=== PATIENT | male | born 1990 | race Hispanic/Latino ===

== ENCOUNTER 2020-05-16 12:53 | Emergency (ER) | payer BC, SELFPAY ==
--- OUTSIDE RECORDS SUMMARY | 2020-05-16 12:56 | XMS REPORT | Continuity of Care Document ---
:1990 Author Organization [facility] t Address [address] [place] [address] Care Team Providers Name Role Phone DR GERRI DYE Attending Clinician Unavailable DR HERMAN JIMÉNEZ Attending Clinician Unavailable DR TESHA JIMÉNEZ Attending Clinician Unavailable Carlie SMITH Attending Clinician Unavailable DR Reg DYEitting Clinician Unavailable DR JESSY Admitting Clinician Unavailable DR Kendell JIMÉNEZ Admitting Clinician Unavailable Carlie SMITH Admitting Clinician Unavailable Problems This patient has no known problems. Allergies, Adverse Reactions, Alerts This patient has no known allergies or adverse reactions. Medications This patient has no known medications. Procedures This patient has no known procedures. Encounters Start End Encounter Admission Attending Care Care Encounter Source Date/Time Date/Time Type Type Clinicians Facility Department ID 2020-01-25 2020-01-25 Emergency E [facility] [id number] [facility] 00:08:00 00:08:00 2019-07-18 2019-07-18 Emergency E [facility] [id number] [facility] 14:06:00 14:06:00 2019-07-08 2019-07-08 Emergency E [facility] [id number] [facility] 17:22:00 17:22:00 2019-07-08 2019-07-08 Outpatient [facility] [id number] [facility] 17:00:00 17:00:00 2017-07-03 2017-07-03 [facility] [id number] [address] [place] [id number] 00:00:00 00:00:00 [facility] 2017-06-28 2017-06-29 Outpatient [facility] [id number] [address] [place] [address] 00:00:00 00:00:00 [facility] 2017-06-23 2017-06-23 Emergency E GERRI DYE [facility] [id number] [address] 11:52:00 13:51:00 [facility] 2017-06-21 2017-06-22 Emergency E JESSY [facility] [id number] [address] 23:24:00 02:15:00 [facility] 2016-11-09 2016-11-09 Emergency E TESHA JIMÉNEZ [facility] [id number] 12:10:00 13:05:00 [facility] Results Test Description Test Time Test Comments Results Result Comments Source BASIC METABOLIC PANEL 2017-06-23 13:15:00 Test Item Value Reference Range Interpretation Comme nts GLUCOSE (test code = 06D) 100 mg/dL 75-100 SODIUM (test code = 01A) 138 mmol/L 136-145 POTASSIUM (test code = 01B) 3.7 mmol/L 3.6-5.1 CHLORIDE (test code = 04A) 106 mmol/L 98-107 CO2 (test code = 02A) 27 mmol/L 22-32 ANION GAP (test code = ANG) 8.7 mmol/L BUN (test code = 05D) 10 mg/dL 7-18 CREATININE (test code = 03E) 1.0 mg/dL 0.7-1.3 BUN/CREA (test code = BCR) 10 12-20 L CALCIUM (test code = 09D) 8.8 mg/dL 8.3-9.5 CBC (INCLUDES AUTOMATED DIFFERENTIAL)*[id number] 13:04:00 Test Item Value Reference Range Interpretation Comments WBC (test code = WBC) 16.6 10\S\3/uL 4.5-11.0 H RBC (test code = RBC) 4.55 10\S\6/uL 4.30-5.70 HGB (test code = HBG) 14.5 g/dL 14.0-18.0 HCT (test code = HCT) 41.7 % 35.0-46.0 MCV (test code = MCV) 91.6 fL 80.0-94.0 MCH (test code = MCH) 31.9 pg 27.0-31.0 H MCHC (test code = MCHC) 34.8 g/dL 32.0-36.0 RDW (test code = RDW) 13.3 % 11.5-14.5 PLT (test code = PLT) 194 10\S\3/uL 130-400 MPV (test code = MPV) 11.7 fL 9.4-12.4 NEUTROP # (test code = NE#) 13.5 10\S\3/uL 2.0-8.0 H LYMPH # (test code = LY#) 1.6 10\S\3/uL 1.2-4.0 MONOCYTE # (test code = MO#) 0.9 10\S\3/uL 0.0-1.1 EOSINOPH # (test code = EO#) 0.5 10\S\3/uL 0.0-0.7 BASOPHIL # (test code = BA#) 0.1 10\S\3/uL 0.0-0.3 IG # (test code = IG#) 0.07 10\S\3/uL 0.00-0.06 H NRBC # (test code = NRBC#) 0.00 10\S\3/uL 0.00-0.01 NEUTROPH % (test code = NE%) 81.3 % 35.0-73.0 H LYMPH % (test code = LY%) 9.5 % 20.0-55.0 L MONO % (test code = MO%) 5.5 % 2.5-10.0 EOSINOPH % (test code = EO%) 2.9 % 0.0-5.0 BASOPHIL % (test code = BA%) 0.4 % 0.0-2.0 IG % (test code = IG%) 0.4 % 0.0-0.8 NRBC% (test code = NRBC%) 0.0 % 0.0-0.2 MANDIFF (test code = WMDIFF) NO NO RBC MORPH (test code = NORMAL WRBCMOR) XR CHEST 2 VIEW *WW*2017-06-23 12:51:56Exam: Chest 2 viewsLocation: [id number]: cough, recent pneumonia.Comparison: 10/23/2016.Findings:The lungs are clear. Central peribronchial cuffing is present. No infiltrate oreffusion is seen. The pulmonary vasculature is normal. The heart size isnormal. The mediastinal silhouette is unremarkable. Thebony thorax is intact.Impression:Bronchitis .CT STONE PROTOCOL [id number] 01:06:08AFTER HOURS SERVICE ON: 06/22/2017 1:03 AMCT Scan of the Abdomen and Pelvis Without ContrastLocation Code [id number]: L flank painTechnique: Axial and reconstructed coronal scans were performed on a helicalscanner pre oral and IV contrast. Study is limited secondary to lack of oraland IV contrast. One or more of the following dose reduction techniques were used: Automatedexposure control, adjustmentof the mA and/or kV according to patient size,and/or utilization of iterative reconstruction technique.Findings: Liver: No significant findings. Gallbladder/Biliary: No significant findings. Pancreas: No significant findings. Spleen: No significant findings.Adrenals: No significant findings. Kidneys:No nephrolithiasis or hydronephrosis. Bladder: No significant findings. Bowel: No significant findings. The appendix is not visualized.Other: Patchy bilateral alveolar densities are seen in the lower lo bes, rightgreater than left: Likely pneumonia. There are rounded sclerotic lesions in theright proximal femur without significant change from 07/18/13. There is nopathologic fracture.Impression:1. Bilateral lower lobe pneumonia.2. No nephrolithiasis or obstructive uropathy.3. Nonvisualization of the appendix. The bowel is otherwise unremarkable. Noinflammatory changes seen.U/S TESTICULAR 2017-06-22 00:58:11U/S TESTICULARLocation: [id number] hours services provided 06/22/2017 12:56 AMIndication: L testicle painComparison: None available.Technique:High-frequency linear transducer sonography including grimes scale,color and Doppler imaging was performed through the scrotum.Findings: The testicles are normal in size, echogenicity and blood flow. Theright testicle measures 4 x 2.3 x 2.9 cm. Left testicle measures3.9 x 2.1 x2.8 cm. The epididymis remains are normal in size, echogenicity and blood flow.The right e pididymis measures up to 17 mm. The left epididymis measures 8 mm.Bilateral hydroceles are present, more evident on the right. No evidence ofvaricocele.Impression:Bilateral hydroceles with no acute testicular or epididymalabnormality.AMYLASE AND [id number] 00:33:00 Test Item Value Reference Range Interpretation Comments AMYLASE (test code = 10A) 65 U/L 28-100 LIPASE (test code = 60A) 140 IU/L 73-393 COMPREHENSIVE METABOLIC [id number] 00:33:00 Test Item Value Reference Range Interpretation Comments GLUCOSE (test code = 06D) 88 mg/dL 75-100 SODIUM (test code = 01A) 137 mmol/L 136-145 POTASSIUM (test code = 01B) 3.7 mmol/L 3.6-5.1 CHLORIDE (test code = 04A) 102 mmol/L 98-107 CO2 (test code = 02A) 29 mmol/L 22-32 ANION GAP (test code = ANG) 9.7 mmol/L BUN (test code = 05D) 11 mg/dL 7-18 CREATININE (test code = 03E) 1.0 mg/dL 0.7-1.3 BUN/CREA (test code = BCR) 12 12-20 CALCIUM (test code = 09D) 9.2 mg/dL 8.3-9.5 BILI TOTAL (test code = 11A) 0.5 mg/dL 0.2-1.0 PROTEIN (test code = 07D) 8.0 g/dL 6.4-8.2 ALBUMIN (test code = 08D) 4.6 g/dL 3.5-4.8 GLOBULIN (test code = GLB) 3.4 g/dL 1.5-3.8 ALB/GLOB (test code = AGRR) 1.4 1.0-2.6 ALK PHOS (test code = 35A) 66 IU/L 42-121 AST (test code = 30A) 14 IU/L <=42 ALT (test code = 31A) 29 IU/L <=78 [id number] 00:31:00 Test Item Value Reference Range Interpretation Comments COLOR (test code = COLU) YELLOW YELLOW CLARITY (test code = CLA) CLEAR CLEAR GLUCOSE UR (test code = UA GLUCOSE) NEGATIVE NEGATIVE BILI UR (test code = BILE) NEGATIVE NEGATIVE KETONES UR (test code = ADALBERTO) NEGATIVE NEGATIVE SP GRAVITY (test code = SPGR) 1.005 1.005-1.030 PH UR (test code = PH) 6.5 4.5-8.0 PROTEIN UR (test code = PU) NEGATIVE NEGATIVE UROBIL UR (test code = UROQ) 0.2 EU/dL 0.2-1.0 NITRITE UR (test code = NITRITE) NEGATIVE NEGATIVE BLOOD UR (test code = UA BLOOD) NEGATIVE NEGATIVE LEUK ES UR (test code = LEUK) NEGATIVE NEGATIVE CBC (INCLUDES AUTOMATED DIFFERENTIAL)2017-06-22 00:24:00 Test Item Value Reference Range Interpretation Comments WBC (test code = WBC) 10.2 10\S\3/uL 4.5-11.0 RBC (test code = RBC) 4.97 10\S\6/uL 4.30-5.70 HGB (test code = HBG) 15.5 g/dL 14.0-18.0 HCT (test code = HCT) 45.0 % 35.0-46.0 MCV (test code = MCV) 90.5 fL 80.0-94.0 MCH (test code = MCH) 31.2 pg 27.0-31.0 H MCHC (test code = MCHC) 34.4 g/dL 32.0-36.0 RDW (test code = RDW) 13.4 % 11.5-14.5 PLT (test code = PLT) 210 10\S\3/uL 130-400 MPV (test code = MPV) 11.3 fL 9.4-12.4 NEUTROP # (test code = NE#) 6.1 10\S\3/uL 2.0-8.0 LYMPH # (test code = LY#) 2.5 10\S\3/uL 1.2-4.0 MONOCYTE # (test code = MO#) 1.1 10\S\3/uL 0.0-1.1 EOSINOPH # (test code = EO#) 0.5 10\S\3/uL 0.0-0.7 BASOPHIL # (test code = BA#) 0.1 10\S\3/uL 0.0-0.3 IG # (test code = IG#) 0.04 10\S\3/uL 0.00-0.06 NRBC # (test code = NRBC#) 0.00 10\S\3/uL 0.00-0.01 NEUTROPH % (test code = NE%) 59.7 % 35.0-73.0 LYMPH % (test code = LY%) 24.5 % 20.0-55.0 MONO % (test code = MO%) 10.4 % 2.5-10.0 H EOSINOPH % (test code = EO%) 4.4 % 0.0-5.0 BASOPHIL % (test code = BA%) 0.6 % 0.0-2.0 IG % (test code = IG%) 0.4 % 0.0-0.8 NRBC% (test code = NRBC%) 0.0 % 0.0-0.2 MANDIFF (test code = MDIFF) NO NO RBC MORPH (test code = RBCMOR) NORMAL COMPREHENSIVE METABOLIC MULLEN 2016-10-23 14:38:00 Test Item Value Reference Range Interpretation Comments GLUCOSE (test code = 06D) 93 mg/dL 75-100 SODIUM (test code = 01A) 140 mmol/L 136-145 POTASSIUM (test code = 01B) 4.1 mmol/L 3.6-5.1 CHLORIDE (test code = 04A) 105 mmol/L 98-107 CO2 (test code = 02A) 30 mmol/L 22-32 ANION GAP (test code = ANG) 9.1 mmol/L BUN (test code = 05D) 11 mg/dL 7-18 CREATININE (test code = 03E) 1.0 mg/dL 0.7-1.3 BUN/CREA R (test code = BCR) 11 12-20 L CALCIUM (test code = 09D) 9.2 mg/dL 8.3-9.5 BILI TOTAL (test code = 11A) 0.4 mg/dL 0.2-1.0 PROTEIN (test code = 07D) 7.3 g/dL 6.4-8.2 ALBUMIN (test code = 08D) 4.0 g/dL 3.5-4.8 GLOBULIN (test code = GLB) 3.3 g/dL 1.5-3.8 ALB/GLOB (test code = AGRR) 1.2 1.0-2.6 ALK PHOS (test code = 35A) 71 IU/L 42-121 AST (test code = 30A) 17 IU/L <=42 ALT (test code = 31A) 23 IU/L <=78 AMYLASE AND LIPASE 2016-10-23 14:38:00 Test Item Value Reference Range Interpretation Comments AMYLASE (test code = 10A) 46 U/L 28-100 LIPASE (test code = 60A) 100 IU/L 73-393 CBC (INCLUDES AUTOMATED DIFFERENTIAL)*[id number] 14:19:00 Test Item Value Reference Range Interpretation Comments WBC (test code = WBC) 5.7 10\S\3/uL 4.5-11.0 RBC (test code = RBC) 4.53 10\S\6/uL 4.30-5.70 HGB (test code = HBG) 14.7 g/dL 14.0-18.0 HCT (test code = HCT) 42.5 % 35.0-46.0 MCV (test code = MCV) 93.8 fL 80.0-94.0 MCH (test code = MCH) 32.5 pg 27.0-31.0 H MCHC (test code = MCHC) 34.6 g/dL 32.0-36.0 RDW (test code = RDW) 13.1 % 11.5-14.5 PLT (test code = PLT) 186 10\S\3/uL 130-400 MPV (test code = MPV) 11.4 fL 9.4-12.4 NEUTROP # (test code = NE#) 3.7 10\S\3/uL 2.0-8.0 LYMPH # (test code = LY#) 1.3 10\S\3/uL 1.2-4.0 MONOCYTE # (test code = MO#) 0.5 10\S\3/uL 0.0-1.1 EOSINOPH # (test code = EO#) 0.2 10\S\3/uL 0.0-0.7 BASOPHIL # (test code = BA#) 0.1 10\S\3/uL 0.0-0.3 IG # (test code = IG#) 0.02 10\S\3/uL 0.00-0.06 NRBC # (test code = NRBC#) 0.00 10\S\3/uL 0.00-0.01 NEUTROPH % (test code = NE%) 64.8 % 35.0-73.0 LYMPH % (test code = LY%) 22.4 % 20.0-55.0 MONO % (test code = MO%) 8.6 % 2.5-10.0 EOSINOPH % (test code = EO%) 3.0 % 0.0-5.0 BASOPHIL % (test code = BA%) 0.9 % 0.0-2.0 IG % (test code = IG%) 0.3 % 0.0-0.8 NRBC% (test code = NRBC%) 0.0 % 0.0-0.2 MANDIFF (test code = WMDIFF) NO NO RBC MORPH (test code = NORMAL WRBCMOR) XR CHEST 1 VIEW PORTABLE 2016-10-23 13:51:45Portable AP chest, 1 viewLocation Code: [id number] HISTORY: Abdominal painCOMPARISON: 07/14/2013COMMEN T: The lungs are clear and well inflated. The costophrenic angles are sharp. Thecardiomediastinal silhouette is unremarkable. The bones are intact.IMPRESSION: Stable chest with no acute abnormality.CT ABDOMEN AND PELVIS WITHOUT CONTRAST 2016-10-23 13:50:29CT abdomen and pelvis without contrastLocation Code: [id number] HISTORY: Abdominal painCOMPARISON: 03/2017Technique: Helical CT of the abdomen and pelvis was performed withoutcontrast. Thin section axial, sagittal and coronal images were obtained.Automatic exposure control was utilized. Total DLP: 421.47 mGycmFINDINGS:The lung bases are clear. The liver, gallbladder, adrenal glands, kidneys, pancreas, and spleen areunremarkable.The unopacified loops of bowel demonstrate no focal thickening or dilatation.The appendix is absent. There is no free peritoneal air or fluid. The abdominal aorta is normal in caliber and contour. There is noretroperitoneal mass or fluid collection. The urinary bladderis unremarkable.There is no pelvic mass or fluid collection. The bones, skin, and surrounding soft tissues are unremarkable.IMPRESSION: Stable exam with no acute abnormality.CT ABDOMEN AND PELVIS WITH [id number] 21:28:44CT abdomen and pelvis with contrastLocation Code: [id number] HISTORY: Abdominal painCOMPARISON: 07/18/13, 07/13/13Technique: Helical CT of the abdomen and pelvis was performed following theadministration of intravenous contrast. Thin section axial, sagittal andcoronal images were obtained. Automatic exposure control was utilized. TotalDLP: 1033 mGycmFINDINGS:4 mm noncalcified left lower lobe pulmonary nodule is stable.The liver, gallbladder, adrenal glands, kidneys, pancreas, and spleen areunremarkable.The unopacified loops of bowel demonstrate no focal thickening or dilatation.The appendix is surgically absent. Diverticuli are seen scattered throughoutthe sigmoid colon with no wall thickening or adjacent inflammation. There isno free peritoneal air or fluid. The abdominal aorta is normal in caliber and contour. There is noretroperitoneal mass or fluid collection. The urinary bladder is unremarkable.There is no pelvic mass or fluid collection. The bones, skin, and surrounding soft tissues are unremarkable.IMPRESSION: No acute intra-abdominal or pelvic abnormality.DRUGS OF [id number] 21:03:00 Test Item Value Reference Range Interpretation Comments DRUG SCRN (test code URINE DRUG SCREEN = HDOA) This is an unconfirmed screening result and should not be used for non-medical purposes CANNABINOD (test POSITIVE NEGATIVE A code = 88C) AMPHETHETM (test Negative NEGATIVE code = 84A) BENZODIAZP (test Negative NEGATIVE code = 86A) BARBITURAT (test Negative NEGATIVE code = 85A) OPIATES (test code = POSITIVE NEGATIVE A 92B) COCAINE (test code = Negative NEGATIVE 87A) PHENCYCLID (test Negative NEGATIVE code = 66A) METHADONE (test code Negative NEGATIVE = 64A) DOAH (test code = DOAH) URINE DRUG SCREEN Cut-off values are as follows: Cannabinoids 50 ng/mL Cocaine 300 ng/mL Amphetamines 1000 ng/mL Phencyclidine 25 ng/mL Benzodiazepines 200 ng.mL Methadone 300 ng/mL Barbiturates 200 ng/mL Opiates 2000 ng/mL URINALYSIS WITH [id number] 20:50:00 Test Item Value Reference Range Interpretation Comments COLOR (test code = COLU) DK YELLOW YELLOW A CLARITY (test code = CLA) CLOUDY CLEAR A GLUCOSE UR (test code = UA NEGATIVE NEGATIVE GLUCOSE) BILI UR (test code = BILE) NEGATIVE NEGATIVE KETONES UR (test code = ADALBERTO) NEGATIVE NEGATIVE SP GRAVITY (test code = SPGR) 1.026 1.005-1.030 PH UR (test code = PH) 6.0 4.5-8.0 PROTEIN UR (test code = PU) 1+ NEGATIVE A UROBIL UR (test code = UROQ) 0.2 EU/dL 0.2-1.0 NITRITE UR (test code = NITRITE) NEGATIVE NEGATIVE BLOOD UR (test code = UA BLOOD) NEGATIVE NEGATIVE LEUK ES UR (test code = LEUK) NEGATIVE NEGATIVE WBC UR (test code = UWBC) 2 /HPF 0-3 RBC UR (test code = URBC) 2 /HPF 0-2 EPITH UR (test code = UEPC) FEW /LPF NONE A BACTERIA UR (test code = UBACT) FEW /HPF NONE A CAST UR (test code = CAST) /LPF NONE CRYSTAL UR (test code = CRYU) / LPF NONE MUCUS UR (test code = MUC) MANY / HPF NONE A AMORPH UR (test code = JORGE) / HPF NONE TRICH UR (test code = UTRICH) /HPF NONE YEAST UR (test code = UY) /HPF NONE SPERM UR (test code = USPERM) /HPF NONE AMYLASE AND [id number] 20:44:00 Test Item Value Reference Range Interpretation Comments AMYLASE (test code = 10A) 46 U/L 28-100 LIPASE (test code = 60A) 128 IU/L 73-393 COMPREHENSIVE METABOLIC [id number] 20:44:00 Test Item Value Reference Range Interpretation Comments GLUCOSE (test code = 06D) 141 mg/dL 75-100 H SODIUM (test code = 01A) 142 mmol/L 136-145 POTASSIUM (test code = 01B) 3.3 mmol/L 3.6-5.1 L CHLORIDE (test code = 04A) 107 mmol/L 98-107 CO2 (test code = 02A) 25 mmol/L 22-32 ANION GAP (test code = ANG) 13.3 mmol/L BUN (test code = 05D) 11 mg/dL 7-18 CREATININE (test code = 03E) 1.1 mg/dL 0.7-1.3 BUN/CREA R (test code = BCR) 10 12-20 L CALCIUM (test code = 09D) 9.2 mg/dL 8.3-9.5 BILI TOTAL (test code = 11A) 0.5 mg/dL 0.2-1.0 PROTEIN (test code = 07D) 8.0 g/dL 6.4-8.2 ALBUMIN (test code = 08D) 4.6 g/dL 3.5-4.8 GLOBULIN (test code = GLB) 3.4 g/dL 1.5-3.8 ALB/GLOB (test code = AGRR) 1.4 1.0-2.6 ALK PHOS (test code = 35A) 70 IU/L 42-121 AST (test code = 30A) 17 IU/L <=42 ALT (test code = 31A) 22 IU/L <=78 CBC (INCLUDES AUTOMATED DIFFERENTIAL)2016-09-10 20:31:00 Test Item Value Reference Range Interpretation Comments WBC (test code = WBC) 16.2 10\S\3/uL 4.5-11.0 H RBC (test code = RBC) 4.75 10\S\6/uL 4.30-5.70 HGB (test code = HBG) 15.1 g/dL 14.0-18.0 HCT (test code = HCT) 43.0 % 35.0-46.0 MCV (test code = MCV) 90.5 fL 80.0-94.0 MCH (test code = MCH) 31.8 pg 27.0-31.0 H MCHC (test code = MCHC) 35.1 g/dL 32.0-36.0 RDW (test code = RDW) 13.1 % 11.5-14.5 PLT (test code = PLT) 207 10\S\3/uL 130-400 MPV (test code = MPV) 12.8 fL 9.4-12.4 H NEUTROP # (test code = NE#) 10.7 10\S\3/uL 2.0-8.0 H LYMPH # (test code = LY#) 4.0 10\S\3/uL 1.2-4.0 MONOCYTE # (test code = MO#) 1.0 10\S\3/uL 0.0-1.1 EOSINOPH # (test code = EO#) 0.4 10\S\3/uL 0.0-0.7 BASOPHIL # (test code = BA#) 0.1 10\S\3/uL 0.0-0.3 IG # (test code = IG#) 0.06 10\S\3/uL 0.00-0.06 NRBC # (test code = NRBC#) 0.00 10\S\3/uL 0.00-0.01 NEUTROPH % (test code = NE%) 66.0 % 35.0-73.0 LYMPH % (test code = LY%) 24.3 % 20.0-55.0 MONO % (test code = MO%) 6.2 % 2.5-10.0 EOSINOPH % (test code = EO%) 2.5 % 0.0-5.0 BASOPHIL % (test code = BA%) 0.6 % 0.0-2.0 IG % (test code = IG%) 0.4 % 0.0-0.8 NRBC% (test code = NRBC%) 0.0 % 0.0-0.2 MANDIFF (test code = MDIFF) NO NO RBC MORPH (test code = RBCMOR) NORMAL
[2020-05-16] MEDS ORDERED: IPRATROPIUM BROM 0.5MG/2.5ML ONE (14:44)
[2020-05-16] MEDS ORDERED: ALBUTEROL 2.5 MG/3 ML NEB SOL ONE (14:44)
[2020-05-16] MEDS ORDERED: dexAMETHasone 10 MG/ML VIAL ONE (14:44)
[2020-05-16] MEDS ORDERED: HYDROCODONE/CHLORPHEN 5 ML/OSYR ONE (14:44)
--- NOTE | 2020-05-16 14:49 | RAD REPORT ---
EXAM DESCRIPTION: RAD - Chest Single View - 05/16/2020 2:34 pm CLINICAL HISTORY: COUGH Chest pain. COMPARISON: No comparisons FINDINGS: Portable technique limits examination quality. The lungs are grossly clear. The heart is normal in size. No displaced fractures. IMPRESSION: No acute intrathoracic process suspected.
--- NOTE | 2020-05-16 15:29 | ER ---
Nurse's Notes [facility] Name: Chico Leon Age: 29 yrs Sex: Male : 1990 Arrival Date: 05/16/2020 Time: 12:55 Bed 20 Private MD: Diagnosis: Acute upper respiratory infection, unspecified Presentation: 05/16 13:40 Chief complaint: Patient states: sore throat, N/V and SOB since yesterday, reports em feeling tired, denies fever. Coronavirus screen: Client denies travel out of the [place] in the last 14 days. Ebola Screen: Patient negative for fever greater than or equal to 101.5 degrees Fahrenheit, and additional compatible Ebola Virus Disease symptoms Patient denies exposure to infectious person. Patient denies travel to an Ebola-affected area in the 21 days before illness onset. No symptoms or risks identified at this time. Initial Sepsis Screen: Does the patient meet any 2 criteria? No. Patient's initial sepsis screen is negative. Does the patient have a suspected source of infection? No. Patient's initial sepsis screen is negative. Risk Assessment: Do you want to hurt yourself or someone else? Patient reports no desire to harm self or others. Onset of symptoms was May 15, 2020. 13:40 Method Of Arrival: Ambulatory em 13:40 Acuity: RADHA 3 em Historical: - Allergies: 13:43 No Known Allergies; em - PMHx: 13:43 None; em - PSHx: 13:43 None; em - Immunization history:: Adult Immunizations up to date. - Social history:: Smoking status: Patient reports the use of cigarette tobacco products, denies chronic smoking, but will smoke occasionally. Screenin:50 Abuse screen: Denies threats or abuse. Denies injuries from another. Nutritional ca1 screening: No deficits noted. Tuberculosis screening: No symptoms or risk factors identified. Fall Risk None identified. Assessment: 13:50 General: Appears in no apparent distress. comfortable, Behavior is calm, cooperative, ca1 appropriate for age. General: Reports feeling ill for > 3 days. Pain: Complains of pain in left frontal sinus and right frontal sinus Pain currently is 7 out of 10 on a pain scale. Neuro: Level of Consciousness is awake, alert, obeys commands, Oriented to person, place, time, situation. Cardiovascular: Heart tones S1 S2 present Capillary refill < 3 seconds Patient's skin is warm and dry. Respiratory: Airway is patent Respiratory effort is even, unlabored, Respiratory pattern is regular, symmetrical, Breath sounds are clear bilaterally. Respiratory: Reports cough that is. GI: Abdomen is flat, non-distended, Bowel sounds present X 4 quads. Abd is soft and non tender X 4 quads. : No signs and/or symptoms were reported regarding the genitourinary system. EENT: Throat is clear is pink Reports nasal congestion nasal discharge. Derm: Skin is intact, is healthy with good turgor, Skin is pink, warm \T\ dry. Musculoskeletal: Circulation, motion, and sensation intact. Capillary refill < 3 seconds. 14:37 Reassessment: Patient appears in no apparent distress at this time. Patient and/or ca1 family updated on plan of care and expected duration. Pain level reassessed. Patient is alert, oriented x 3, equal unlabored respirations, skin warm/dry/pink. 15:43 Reassessment: Patient appears in no apparent distress at this time. Patient is alert, ca1 oriented x 3, equal unlabored respirations, skin warm/dry/pink. Patient states feeling better. Vital Signs: 13:40 BP 154 / 67; Pulse 85; Resp 18; Temp 99.6; Pulse Ox 98% on R/A; Weight 79.38 kg; Height em 5 ft. 3 in. (160.02 cm); Pain 9/10; 14:37 BP 121 / 63; Pulse 77; Resp 16 S; Pulse Ox 100% on R/A; ca1 15:43 BP 127 / 69; Pulse 71; Resp 16 S; Pulse Ox 100% on R/A; ca1 13:40 Body Mass Index 31.00 (79.38 kg, 160.02 cm) em ED Course: 12:55 Patient arrived in ED. as 13:42 Triage completed. em 13:43 Arm band placed on. em 13:49 Kendall Smith NP is PHCP. pm1 13:49 Valentino Arboleda MD is Attending Physician. pm1 13:50 Patient has correct armband on for positive identification. Placed in gown. Bed in low ca1 position. Call light in reach. Side rails up X 1. Pulse ox on. NIBP on. 14:09 Apolonia Hernandez RN is Primary Nurse. ca1 14:22 Strep Sent. ca1 14:22 COVID-19 Sent. ca1 14:22 Flu Sent. ca1 14:22 COVID swab sent to lab. Flu and/or RSV swab sent to lab. Strep swab sent to lab. ca1 14:35 CXR XRAY In Process Unspecified. EDMS 15:43 No provider procedures requiring assistance completed. Patient did not have IV access ca1 during this emergency room visit. Administered Medications: 14:20 Drug: Tussionex Pennkinetic ER 5 ml Route: PO; ca1 14:22 Drug: Decadron 10 mg Route: IM; Site: right gluteus; ca1 14:24 Drug: Albuterol 2.5 mg Route: Inhalation; ca1 14:24 Drug: AtroVENT Aerosol 0.5 mg Route: Inhalation; ca1 Outcome: 15:29 Discharge ordered by MD. pm1 15:43 Discharged to home ambulatory, with significant other. ca1 15:43 Condition: stable 15:43 Discharge instructions given to patient, Instructed on discharge instructions, follow up and referral plans. medication usage, Demonstrated understanding of instructions, follow-up care, medications, Prescriptions given X 4. 15:44 Patient left the ED. ca1 Addendum: 05/18/2020 17:35 Addendum: COVID-19 Result: Negative result given to RN to notify pt. Notified pt of a a5 negative COVID 19 swab results. Pt advised that even with a negative test result they should remain in isolation until symptom free for 3 days without medication. Pt also advised to return to the ED for worsening symptoms. Signatures: Dispatcher [employer] [facility] King Ko RN RN em Martinez, Amelia as Calderon, Audri, RN RN aa5 Kendall Smith, SHIRA ACTUARY MANAGER pm1 Apolonia Hernandez RN RN ca1
--- NOTE | 2020-05-16 15:29 | EDPHYS ---
Physician Documentation [facility] Name: Chico Leon Age: 29 yrs Sex: Male : 1990 Arrival Date: 05/16/2020 Time: 12:55 Bed 20 Private MD: ED Physician Valentino Arboleda HPI: 05/16 14:12 This 29 yrs old Male presents to ER via Ambulatory with complaints of Sore pm1 Throat, Breathing Difficulty. 14:12 The patient presents with sore throat. The patient describes throat pain as raw, pm1 scratchy. Onset: The symptoms/episode began/occurred yesterday. Severity of symptoms: in the emergency department the symptoms are actually worse. Modifying factors: The symptoms are alleviated by over the counter medications, Tylenol, the symptoms are aggravated by nothing, Patient's oral intake status: good unaware of sick contact. Associated signs and symptoms: Pertinent positives: cough, headache, nausea, Sore throat vomiting, Pertinent negatives earache, fever. The patient has not recently seen a physician. Historical: - Allergies: 13:43 No Known Allergies; em - PMHx: 13:43 None; em - PSHx: 13:43 None; em - Immunization history:: Adult Immunizations up to date. - Social history:: Smoking status: Patient reports the use of cigarette tobacco products, denies chronic smoking, but will smoke occasionally. ROS: 14:12 Cardiovascular: Negative for chest pain, palpitations, and edema. pm1 14:12 Back: Negative for injury and pain, MS/Extremity: Negative for injury and deformity, Skin: Negative for injury, rash, and discoloration, Neuro: Negative for headache, weakness, numbness, tingling, and seizure. 14:12 Constitutional: Positive for body aches, Negative for fever, poor PO intake. 14:12 Respiratory: Positive for cough, Clear and yellow sputum, shortness of breath. 14:12 Abdomen/GI: Positive for nausea and vomiting, Negative for abdominal pain, diarrhea, constipation. Exam: 14:12 Constitutional: This is a well developed, well nourished patient who is awake, alert, pm1 and in no acute distress. 14:12 Eyes: Pupils equal round and reactive to light, extra-ocular motions intact. Lids and lashes normal. Conjunctiva and sclera are non-icteric and not injected. Cornea within normal limits. Periorbital areas with no swelling, redness, or edema. 14:12 Neck: Trachea midline, no thyromegaly or masses palpated, and no cervical lymphadenopathy. Supple, full range of motion without nuchal rigidity, or vertebral point tenderness. No Meningismus. Chest/axilla: Normal chest wall appearance and motion. Nontender with no deformity. No lesions are appreciated. 14:12 Back: No spinal tenderness. No costovertebral tenderness. Full range of motion. Skin: Warm, dry with normal turgor. Normal color with no rashes, no lesions, and no evidence of cellulitis. MS/ Extremity: Pulses equal, no cyanosis. Neurovascular intact. Full, normal range of motion. 14:12 Head/face: Sinus tenderness, that is moderate, is located over the right frontal sinus and left frontal sinus. 14:12 ENT: External ear(s): are unremarkable, Ear canal(s): are normal, TM's: are normal, Posterior pharynx: Tonsils: bilaterally enlarged, with erythema, no exudate, no ulcerations, erythema, that is moderate. 14:12 Respiratory: the patient does not display signs of respiratory distress, Breath sounds: bronchial sounds, are heard diffusely, + upper airway congestion. 14:12 Abdomen/GI: Exam negative for acute changes, Inspection: abdomen appears normal, Palpation: abdomen is soft and non-tender, in all quadrants. 14:12 Neuro: Exam negative for acute changes, Orientation: is normal, Mentation: is normal, Motor: moves all fours, Gait: is steady, at a normal pace, without difficulty. Vital Signs: 13:40 BP 154 / 67; Pulse 85; Resp 18; Temp 99.6; Pulse Ox 98% on R/A; Weight 79.38 kg; Height em 5 ft. 3 in. (160.02 cm); Pain 9/10; 14:37 BP 121 / 63; Pulse 77; Resp 16 S; Pulse Ox 100% on R/A; ca1 15:43 BP 127 / 69; Pulse 71; Resp 16 S; Pulse Ox 100% on R/A; ca1 13:40 Body Mass Index 31.00 (79.38 kg, 160.02 cm) em MDM: 13:49 Patient medically screened. pm1 14:16 Data reviewed: vital signs. Data interpreted: Pulse oximetry: on room air is 98 %. pm1 Interpretation: normal. 15:27 Counseling: I had a detailed discussion with the patient and/or guardian regarding: the pm1 historical points, exam findings, and any diagnostic results supporting the discharge/admit diagnosis, lab results, radiology results, the need for outpatient follow up, to return to the emergency department if symptoms worsen or persist or if there are any questions or concerns that arise at home. 05/16 14:02 Order name: COVID-19 pm1 05/16 14:02 Order name: Flu; Complete Time: 14:59 pm1 05/16 14:02 Order name: CXR XRAY; Complete Time: 14:57 pm1 05/16 14:02 Order name: Strep; Complete Time: 14:57 pm1 05/16 14:54 Order name: Throat Culture EDMS 05/16 14:02 Order name: Droplet/Contact Precautions; Complete Time: 14:10 pm1 Administered Medications: 14:20 Drug: Tussionex Pennkinetic ER 5 ml Route: PO; ca1 14:22 Drug: Decadron 10 mg Route: IM; Site: right gluteus; ca1 14:24 Drug: Albuterol 2.5 mg Route: Inhalation; ca1 14:24 Drug: AtroVENT Aerosol 0.5 mg Route: Inhalation; ca1 Disposition: 17:54 Co-signature as Attending Physician, Valentino Arboleda MD Did not see or evaluate patient. ps1 Signature for administrative purposes. . Disposition: 05/16/20 15:29 Discharged to Home. Impression: Acute upper respiratory infection, unspecified. - Condition is Stable. - Discharge Instructions: Upper Respiratory Infection, Adult, COVID-19. - Prescriptions for Zofran 4 mg Oral Tablet - take 1 tablet by ORAL route every 12 hours As needed; 20 tablet. Medrol (Percy) 4 mg Oral Tablets, Dose Pack - take 1 tablet by ORAL route as directed - follow package instructions; 1 packet. Albuterol Sulfate 90 mcg/actuation - inhale 1-2 puff by INHALATION route every 4-6 hours; 1 Inhaler. Guaifenesin AC 10- 100 mg/5 mL Oral Liquid - take 10 milliliter by ORAL route every 4 hours As needed; 240 milliliter. - Medication Reconciliation Form, Thank You Letter, Antibiotic Education, Prescription Opioid Use, Work release form form. - Follow up: Emergency Department; When: As needed; Reason: Worsening of condition. Follow up: Private Physician; When: 2 - 3 days; Reason: Recheck today's complaints, Continuance of care, Re-evaluation by your physician. - Problem is new. - Symptoms have improved. Signatures: Dispatcher [employer] EDKing Garrido, RN RN em Kendall Smith, AUDITING CLERK AUDITING CLERK pm1 Valentino Arboleda MD MD ps1 Apolonia Hernandez RN RN ca1 Corrections: (The following items were deleted from the chart) 15:44 15:29 05/16/2020 15:29 Discharged to Home. Impression: Acute upper respiratory ca1 infection, unspecified. Condition is Stable. Forms are Medication Reconciliation Form, Thank You Letter, Antibiotic Education, Prescription Opioid Use. Follow up: Emergency Department; When: As needed; Reason: Worsening of condition. Follow up: Private Physician; When: 2 - 3 days; Reason: Recheck today's complaints, Continuance of care, Re-evaluation by your physician. Problem is new. Symptoms have improved. pm1
[2020-05-19 10:12] VITALS: TEMP 99.6
[2020-05-19 10:14] VITALS: O2SAT 100
[2020-05-19 10:15] VITALS: BP 127/69
== END 2020-05-16 15:44 | disposition home or self-care (01) ==
LOC: ER 12:53
DX: J06.9 Acute upper respiratory infection, unspecified (principal); Z20.828 Contact with and (suspected) exposure to other viral communicable diseases; F17.210 Nicotine dependence, cigarettes, uncomplicated
CPT/HCPCS: 71045; 87070; 87081; 87804; 96372; 99284; J1100; U0002

== ENCOUNTER 2020-06-09 21:25 | Emergency (ER) | payer SELFPAY ==
--- OUTSIDE RECORDS SUMMARY | 2020-06-09 21:27 | XMS REPORT | Continuity of Care Document ---
:1990 Author Organization [facility] t Address [address] [place] [address] Care Team Providers Name Role Phone DR RUBIA DUMONT Attending Clinician Unavailable MARNIE, Attending Clinician Unavailable JESSY, Attending Clinician Unavailable DR Kendell JIMÉNEZ Attending Clinician Unavailable Carlie SMITH Attending Clinician Unavailable DR Dennise DUMONT Admitting Clinician Unavailable MARNIE, Admitting Clinician Unavailable JESSY, Admitting Clinician Unavailable DR Kendell JIMÉNEZ Admitting [...] Date/Time Type Type Clinicians Facility Department ID 2020-05-28 2020-05-28 Emergency E TIM [facility] 1000 [id number] [facility] 05:09:00 08:44:00 [facility] 2020-01-25 2020-01-25 Emergency E [facility] 7513 [facility] 00:08:00 00:08:00 2019-07-18 2019-07-18 Emergency E [facility] 7512 [facility] 14:06:00 14:06:00 2019-07-08 2019-07-08 Emergency E [facility] 7511 [facility] 17:22:00 17:22:00 2019-07-08 2019-07-08 Outpatient [facility] 0041 [facility] 17:00:00 17:00:00 2017-07-03 2017-07-03 Out[facility] [id number] [address] [place] [address] 00:00:00 00:00:00 [facility] 2017-06-28 2017-06-29 Out[facility] [id number] [address] [place] [address] 00:00:00 00:00:00 [facility] 2017-06-23 2017-06-23 Emergency E GERRI DYE [facility] [id number] 11:52:00 13:51:00 [facility] 2017-06-21 2017-06-22 Emergency E JESSY [facility] [id number] [address] 23:24:00 02:15:00 [facility] 2016-11-09 2016-11-09 Emergency E TESHA JIMÉNEZ [facility] 1000 [id number] [address] 12:10:00 13:05:00 [facility] Results Test Description Test Time Test Comments Results Result Comments Source DIRECT STREP GROUP A 2020-05-30 13:33:00 Test Item Value Reference Range Interpretation Comme nts Culture Observations (test code = COB1) BETA HEMOLYTIC STREPTOCOCCU S GROUP C ISOLATED Direct Exam (test code = DE1) NEGATIVE FOR STREP A ANTIGEN SARS-CoV (RAPID ANTIGEN)2020-05-28 07:55:00 Test Item Value Reference Range Interpretation Comments SARS-CoV (ANTIGEN) NEGATIVE NEGATIVE (test code = COVAG) COVID AG (test This test has been code = COVAGC) marketed under the FDA Emergency Use Authorization (EUA) to meet challenges of the COVID-19 pandemic. The validation standards normally enforced by the FDA and the [employer] the [employer] (CAP) are more stringent than those required for this test. Therefore, the result should be interpreted with caution and close attention to other clinical and epidemiological data [id number] 07:38:00 Test Item Value Reference Range Interpretation Comments COLOR (test code = COLU) YELLOW YELLOW CLARITY (test code = CLA) CLEAR CLEAR GLUCOSE UR (test code = UA GLUCOSE) NEGATIVE NEGATIVE BILI UR (test code = BILE) NEGATIVE NEGATIVE KETONES UR (test code = ADALBERTO) NEGATIVE NEGATIVE SP GRAVITY (test code = SPGR) 1.020 1.005-1.030 PH UR (test code = PH) 7.5 4.5-8.0 PROTEIN UR (test code = PU) NEGATIVE NEGATIVE UROBIL UR (test code = UROQ) 0.2 EU/dL 0.2-1.0 NITRITE UR (test code = NITRITE) NEGATIVE NEGATIVE BLOOD UR (test code = UA BLOOD) NEGATIVE NEGATIVE LEUK ES UR (test code = LEUK) NEGATIVE NEGATIVE BRAIN NATRIURETIC [id number] 06:26:00 Test Item Value Reference Range Interpretation Comments proBNP (test code = PBNP) 20 pg/mL 0-125 AMYLASE AND [id number] 06:24:00 Test Item Value Reference Range Interpretation Comments AMYLASE (test code = 10A) 55 U/L 28-100 LIPASE (test code = 60A) 221 IU/L 73-393 [id number] 06:24:00 Test Item Value Reference Range Interpretation Comments CPK (test code = 32A) 100 IU/L 39-308 COMPREHENSIVE METABOLIC [id number] 06:24:00 Test Item Value Reference Range Interpretation Comments GLUCOSE (test code = 101 mg/dL 75-100 H 06D) SODIUM (test code = 142 mmol/L 136-145 01A) POTASSIUM (test code = 4.0 mmol/L 3.6-5.1 01B) CHLORIDE (test code = 110 mmol/L 98-107 H 04A) CO2 (test code = 02A) 27 mmol/L 22-32 ANION GAP (test code = 9.0 mmol/L ANG) BUN (test code = 05D) 15 mg/dL 7-18 CREATININE (test code 1.2 mg/dL 0.7-1.3 = 03E) GFR (test code = GFR) 81 mL/min/1.73m\S\2 >=90 L GFR 94 mL/min/1.73m\S\2 >=90 (test code = GFRAA) EGFR (test code = eGFR BY CKD-EPI EGFR) CALCULATION IS NOT RECOMMENDED FOR PATIENTS UNDER 18 YEARS OF AGE. BUN/CREA (test code = 13 12-20 BCR) CALCIUM (test code = 8.7 mg/dL 8.3-9.5 09D) BILI TOTAL (test code 0.2 mg/dL 0.2-1.0 = 11A) PROTEIN (test code = 6.5 g/dL 6.4-8.2 07D) ALBUMIN (test code = 3.5 g/dL 3.5-4.8 08D) GLOBULIN (test code = 3.0 g/dL 1.5-3.8 GLB) ALB/GLOB (test code = 1.2 1.0-2.6 AGRR) ALK PHOS (test code = 64 IU/L 42-121 35A) AST (test code = 30A) 36 IU/L <=42 ALT (test code = 31A) 59 IU/L <=78 LDH-LACTIC [id number] 06:23:00 Test Item Value Reference Range Interpretation Comments LDH (test code = 33A) 195 IU/L 100-190 H [id number] 06:23:00 Test Item Value Reference Range Interpretation Comments FERRITIN (test code = A19) 122.3 ng/mL 26.0-388.0 TROPONIN [id number] 06:21:00 Test Item Value Reference Range Interpretation Comments TROPONIN I (test code = A84) <0.015 ng/mL 0.000-0.045 [id number] 06:18:00 Test Item Value Reference Range Interpretation Comments MAGNESIUM (test code = 48A) 2.2 mg/dL 1.8-2.4 C-REACTIVE PROTEIN [id number] 06:17:00 Test Item Value Reference Range Interpretation Comments CRP QUANT (test code <2.9 mg/L 0.0-2.9 = CRPQ) Method Change (test Please note the code = METHOD) change in Method and the reference range DIRECT INFLUENZA A AND B [id number] 06:16:00 Test Item Value Reference Range Interpretation Comments Direct Exam (test PRESUMPTIVE NEGATIVE FOR code = DE1) THE PRESENCE OF INFLUENZA ANTIGEN PRO TIME AND [id number] 06:12:00 Test Item Value Reference Range Interpretation Comments PT (test code = 9.8 s 9.8-13.6 TT) INR (test code = 0.9 INR) INRH (test code = SUGGESTED INRH) THERAPEUTIC RANGE FOR INR: 2.5 - 3.5 For Patients with Prosthetic Valves or Patients with recurrent Thromboembolic Events 2.0 - 3.0 For Most Other Applications PTT (test code = 35.4 s 20.2-38.0 PTT) PTTH (test code = To monitor the PTTH) effectiveness of heparin, we offer the Anti-Xa (Heparin Assay). It can be used for either unfractionated or LMW Heparin. Order Code is ANTI-XA [id number] 06:12:00 Test Item Value Reference Range Interpretation Comments D-DIMER (test code = <200 ng/mL D-DU 0-234 DDI) D-DIMER COMMENT (test *Level to rule out code = DDCOM) DVT or PE: <235 ng/mL D-DU* Venous Blood [id number] 06:03:00 Test Item Value Reference Range Interpretation Comments VpH (test code = 7.383 7.300-7.400 VPHRT) VpCO2 (test code = 46.0 mmHg 40.0-50.0 QLAO7FG) VpO2 (test code = 55.5 mmHg 30.0-40.0 H VPO2RT) HCO3? (test code = 26.8 mmol/L 22.0-26.0 H HCO3) RADHA (test code = RADHA) 1.7 mmol/L -3.0-3.0 tHb (test code = 15.1 g/dL 14.0-18.0 THBRT) vsO2 (test code = 90.7 % 55.0-75.0 H VSO2RT) FO2Hb (test code = 86.2 % LQ2OLKRI) FCOHb (test code = 3.5 % FCOHBRTV) FMetHb (test code = 1.4 % FMETHBRTV) ABGTEMP (test code = * Temp Corrected Values* ABGTEMP) ABGTEMP (test code = 37.0 ?C ABGTEMP.) pH (T) (test code = 7.383 7.300-7.400 PHTEMPV) pCO2 (T) (test code = 46.0 mmHg 40.0-50.0 UWD5BQPOZ) pO2 (T) (test code = 55.5 mmHg 30.0-40.0 H OJ3ISDAO) Device (test code = ROOM AIR DEVICE) FI02 (test code = 21.0 % FI02) Liter_flow (test code = LF) VENPAR (test code = * Ventilator Parameters VENPAR) * SIMV (test code = SIMV) A/C (test code = A/C) CPAP (test code = CPAP) PEEP (test code = PEEP) PS (test code = PS) PIP (test code = PIP) I_Time (test code = ITIME) Vt (test code = VT) BIPAP INSP (test code = BIPAPINP) BIPAP EXP (test code = BIPAPEXP) SAMPLE SITE (test Vein code = SSITE) COMMENT (test code = CO) CBC (INCLUDES AUTOMATED DIFFERENTIAL)2020-05-28 06:03:00 Test Item Value Reference Range Interpretation Comments WBC (test code = WBC) 10.9 10\S\3/uL 4.5-11.0 RBC (test code = RBC) 4.56 10\S\6/uL 4.30-5.70 HGB (test code = HBG) 14.6 g/dL 14.0-18.0 HCT (test code = HCT) 43.6 % 35.0-46.0 MCV (test code = MCV) 95.6 fL 80.0-94.0 H MCH (test code = MCH) 32.0 pg 27.0-31.0 H MCHC (test code = MCHC) 33.5 g/dL 32.0-36.0 RDW (test code = RDW) 13.4 % 11.5-14.5 PLT (test code = PLT) 231 10\S\3/uL 130-400 MPV (test code = MPV) 11.1 fL 9.4-12.4 NEUTROP # (test code = NE#) 4.6 10\S\3/uL 2.0-8.0 LYMPH # (test code = LY#) 4.2 10\S\3/uL 1.2-4.0 H MONOCYTE # (test code = MO#) 0.5 10\S\3/uL 0.0-1.1 EOSINOPH # (test code = EO#) 1.5 10\S\3/uL 0.0-0.7 H BASOPHIL # (test code = BA#) 0.1 10\S\3/uL 0.0-0.3 IG # (test code = IG#) 0.05 10\S\3/uL 0.00-0.06 NRBC # (test code = NRBC#) 0.00 10\S\3/uL 0.00-0.01 NEUTROPH % (test code = NE%) 41.7 % 35.0-73.0 LYMPH % (test code = LY%) 38.3 % 20.0-55.0 MONO % (test code = MO%) 5.0 % 2.5-10.0 EOSINOPH % (test code = EO%) 13.8 % 0.0-5.0 H BASOPHIL % (test code = BA%) 0.7 % 0.0-2.0 IG % (test code = IG%) 0.5 % 0.0-0.8 NRBC% (test code = NRBC%) 0.0 % 0.0-0.2 MANDIFF (test code = MDIFF) NO NO RBC MORPH (test code = RBCMOR) NORMAL BASIC METABOLIC PANEL 2017-06-23 13:15:00 Test Item Value Reference Range Interpretation Comments GLUCOSE (test code = 06D) 100 mg/dL [...] 09D) 8.8 mg/dL 8.3-9.5 CBC (INCLUDES AUTOMATED DIFFERENTIAL)*[id number] 13:04:00 Test Item Value Reference Range Interpretation [...] 2 VIEW *WW*2017-06-23 12:51:56Exam: Chest 2 viewsLocation: K9Xuzarhl: cough, recent pneumonia.Comparison: 10/23/2016.Findings:The lungs are clear. Central peribronchial cuffing is present. No infiltrate oreffusion is seen. The pulmonary vasculature is normal. The heart size isnormal. The mediastinal silhouette is unremarkable. Thebony thorax is intact.Impression:Bronchitis .CT STONE PROTOCOL [id number] 01:06:08AFTER HOURS SERVICE ON: 06/22/2017 1:03 AMCT Scan of the Abdomen and Pelvis Without ContrastLocation Code Y83Teosjic: L flank painTechnique: Axial and reconstructed coronal [...] Noinflammatory changes seen.U/S TESTICULAR 2017-06-22 00:58:11U/S TESTICULARLocation: L2Xxtgd hours services provided 06/22/2017 12:56 AMIndication: L [...] with no acute testicular or epididymalabnormality.AMYLASE AND [id number] 00:33:00 Test Item Value Reference Range Interpretation Comments AMYLASE (test code = 10A) 65 U/L 28-100 LIPASE (test code = 60A) 140 IU/L 73-393 COMPREHENSIVE METABOLIC [id number] 00:33:00 Test Item Value Reference Range Interpretation [...] (test code = 31A) 29 IU/L <=78 [id number] 00:31:00 Test Item Value Reference Range Interpretation [...] code = RBCMOR) NORMAL COMPREHENSIVE METABOLIC MULLEN *WW*2016-10-23 14:38:00 Test Item Value Reference Range Interpretation [...] 31A) 23 IU/L <=78 AMYLASE AND LIPASE *WW*2016-10-23 14:38:00 Test Item Value Reference Range Interpretation Comments AMYLASE (test code = 10A) 46 U/L 28-100 LIPASE (test code = 60A) 100 IU/L 73-393 CBC (INCLUDES AUTOMATED DIFFERENTIAL)*[id number] 14:19:00 Test Item Value Reference Range Interpretation [...] 2016-10-23 13:51:45Portable AP chest, 1 viewLocation Code: [id number] HISTORY: Abdominal painCOMPARISON: 07/14/2013COMMEN T: The lungs are clear and well inflated. The costophrenic angles are sharp. Thecardiomediastinal silhouette is unremarkable. The bones are intact.IMPRESSION: Stable chest with no acute abnormality.CT ABDOMEN AND PELVIS WITHOUT CONTRAST 2016-10-23 13:50:29CT abdomen and pelvis without contrastLocation Code: [id number] HISTORY: Abdominal painCOMPARISON: 03/2017Technique: Helical CT of [...] no acute abnormality.CT ABDOMEN AND PELVIS WITH [id number] 21:28:44CT abdomen and pelvis with contrastLocation Code: [id number] HISTORY: Abdominal painCOMPARISON: 07/18/13, 07/13/13Technique: Helical CT [...] No acute intra-abdominal or pelvic abnormality.DRUGS OF [id number] 21:03:00 Test Item Value Reference Range Interpretation [...] 200 ng/mL Opiates 2000 ng/mL URINALYSIS WITH [id number] 20:50:00 Test Item Value Reference Range Interpretation [...] code = USPERM) /HPF NONE AMYLASE AND [id number] 20:44:00 Test Item Value Reference Range Interpretation Comments AMYLASE (test code = 10A) 46 U/L 28-100 LIPASE (test code = 60A) 128 IU/L 73-393 COMPREHENSIVE METABOLIC [id number] 20:44:00 Test Item Value Reference Range Interpretation [...]
[2020-06-10 00:24] LABS: Absolute Lymphocytes (CBC) 2.8 K/uL (0.7-4.9); Basophils % 0.4 % (0-1.3); Hematocrit 45.1 % (39.6-49.0); Lymphocytes % 21.5 % (15.3-44.8); MPV 10.6 fL (7.6-11.3); RBC Red Blood Cell Count 4.85 M/uL (4.33-5.43)
[2020-06-10 00:28] LABS: Protime INR 1.09
[2020-06-10 00:45] LABS: ALT/SGPT 22 U/L (12-78); AST/SGOT 17 U/L (15-37); Albumin 4.6 g/dL (3.4-5.0); Alkaline Phosphatase 71 U/L (45-117); BUN Blood Urea Nitrogen 12 mg/dL (7-18); Bicarbonate 26 mmol/L (21-32); Bilirubin Direct 0.1 mg/dL (0-0.2); Bilirubin Total 0.6 mg/dL (0.2-1.0); Glucose Level 88 mg/dL (74-106); Potassium 3.3 mmol/L (3.5-5.1); Protein, Total 8.1 g/dL (6.4-8.2); Sodium Level 139 mmol/L (136-145)
[2020-06-10 00:59] LABS: Urine Blood NEGATIVE (NEG); Urine Glucose NEGATIVE (NEG); Urine Protein NEGATIVE (NEG)
[2020-06-10 01:18] LABS: Barbiturates NEGATIVE (NEGATIVE); Benzodiazepines NEGATIVE (NEGATIVE); Cocaine NEGATIVE (NEGATIVE); METHAMPHETAM NEGATIVE (NEGATIVE); Methadone NEGATIVE (NEGATIVE); Opiates NEGATIVE (NEGATIVE); Phencyclidine NEGATIVE (NEGATIVE); THC Cannibis POSITIVE (NEGATIVE)
--- NOTE | 2020-06-10 02:46 | ER ---
Nurse's Notes [facility] Name: Chico Leon Age: 29 yrs Sex: Male : 1990 Arrival Date: 06/09/2020 Time: 21:30 Bed 16 Private MD: Diagnosis: Depression Presentation: 06/09 21:56 Chief complaint: Patient states: Wants to hurt people that piss him off easily. States ll1 he is not suicidal at this time. "When I'm alone, i just go crazy.". Coronavirus screen: Client denies travel out of the [place] in the last 14 days. At this time, the client does not indicate any symptoms associated with coronavirus-19. Ebola Screen: Patient denies travel to an Ebola-affected area in the 21 days before illness onset. Initial Sepsis Screen: Does the patient meet any 2 criteria? No. Patient's initial sepsis screen is negative. Does the patient have a suspected source of infection? No. Patient's initial sepsis screen is negative. Risk Assessment: Do you want to hurt yourself or someone else? Patient reports no desire to harm self or others. Onset of symptoms was May 29, 2020. 21:56 Method Of Arrival: Ambulatory ll1 21:56 Acuity: RADHA 3 ll1 Historical: - Allergies: 21:59 No Known Allergies; ll1 - PMHx: 21:59 Seizures; ll1 - PSHx: 21:59 None; ll1 - Immunization history:: Flu vaccine is not up to date. - Social history:: Smoking status: Patient reports the use of cigarette tobacco products, smokes one pack cigarettes per day. Screenin:20 Abuse screen: Denies threats or abuse. Nutritional screening: No deficits noted. vg1 Tuberculosis screening: No symptoms or risk factors identified. Fall Risk None identified. Assessment: 22:20 General: Appears in no apparent distress. Behavior is cooperative, anxious. General: vg1 Reports wants help. Stated feels that control anger; noticed needed help when he wanted to assault the military police officer. Patient is standing in room. Does not want to sit down. Pain: Denies pain. Neuro: Level of Consciousness is awake, alert, obeys commands, Oriented to person, place, time, situation. Cardiovascular: Patient's skin is warm and dry. Respiratory: Airway is patent Respiratory effort is even, unlabored, Respiratory pattern is regular, symmetrical. GI: No signs and/or symptoms were reported involving the gastrointestinal system. : No signs and/or symptoms were reported regarding the genitourinary system. EENT: No signs and/or symptoms were reported regarding the EENT system. Derm: Skin is intact, is healthy with good turgor. Musculoskeletal: Circulation, motion, and sensation intact. 23:45 Reassessment: Patient appears in no apparent distress at this time. No changes from vg1 previously documented assessment. Patient is alert, oriented x 3, equal unlabored respirations, skin warm/dry/pink. Patient states that most of the reason for his outbursts is because his ex is having people follow him and it makes him feel anxious. Vital Signs: 21:56 BP 148 / 104; Pulse 100; Resp 18; Temp 98.7; Pulse Ox 99% ; Height 5 ft. 3 in. (160.02 ll1 cm); Pain 5/10; 22:27 BP 130 / 94 Standing; Pulse 92; Resp 16; Pulse Ox 98% on R/A; vg1 ED Course: 21:30 Patient arrived in ED. cl3 21:56 Arm band placed on. ll1 21:59 Triage completed. ll1 22:05 Yovana Pascual, RN is Primary Nurse. vg1 22:20 Patient has correct armband on for positive identification. Bed in low position. Call vg1 light in reach. 23:11 Bensno Andujar MD is Attending Physician. pkl 06/10 00:56 Urine collected: clean catch specimen, clear, a urine drug screen has been sent to lab sg as ordered. 01:02 Report given to Aruna HART. vg1 01:[address] [facility] Crisis Line spoke to [facility] to have a screener evaluate the mw2 patient. 03:15 No provider procedures requiring assistance completed. Patient did not have IV access sg during this emergency room visit. Administered Medications: 03:15 Not Given (Other Intervention Used): K-Dur 20 mEq PO once sg 03:15 Drug: Potassium Chloride 20 mEq Route: PO; sg Outcome: 02:45 Discharge ordered by . pkl 03:10 Discharged to home ambulatory. sg 03:10 Condition: good 03:10 Discharge instructions given to patient, Instructed on discharge instructions, follow up and referral plans. no drinking with medication, no driving heavy equipment, medication usage, safety practices, follow up with MH services from paperwork provider Demonstrated understanding of instructions, follow-up care, medications, Prescriptions given X 1. 03:16 Patient left the ED. Signatures: Javi Jimenez, RN RN sg Benson Andujar MD MD pkl Habalo, Winsy Connor, Laura mw2 Giuliana Madrid cl3 Yovana Pascual RN RN vg1 Eugene Madrid RN RN ll1
--- NOTE | 2020-06-10 02:47 | EDPHYS ---
Physician Documentation [facility] Name: Chico Leon Age: 29 yrs Sex: Male : 1990 Arrival Date: 06/09/2020 Time: 21:30 Bed 16 Private MD: ED Physician Benson Andujar HPI: 06/09 23:32 This 29 yrs old Male presents to ER via Ambulatory with complaints of Psych pkl Problem. 23:32 The patient presents to the emergency department with depression. Onset: The pkl symptoms/episode began/occurred 2 week(s) ago, and became worse today. Historical: - Allergies: 21:59 No Known Allergies; ll1 - PMHx: :59 Seizures; ll1 - PSHx: 21:59 None; ll1 - Immunization history:: Flu vaccine is not up to date. - Social history:: Smoking status: Patient reports the use of cigarette tobacco products, smokes one pack cigarettes per day. ROS: 23:32 Eyes: Negative for injury, pain, redness, and discharge, ENT: Negative for injury, pkl pain, and discharge, Neck: Negative for injury, pain, and swelling, Cardiovascular: Negative for chest pain, palpitations, and edema, Respiratory: Negative for shortness of breath, cough, wheezing, and pleuritic chest pain, Abdomen/GI: Negative for abdominal pain, nausea, vomiting, diarrhea, and constipation, Back: Negative for injury and pain, : Negative for injury, bleeding, discharge, and swelling, MS/Extremity: Negative for injury and deformity, Skin: Negative for injury, rash, and discoloration, Neuro: Negative for headache, weakness, numbness, tingling, and seizure. 23:32 Psych: Positive for depression, Negative for suicidal ideation. Exam: 23:32 Head/Face: Normocephalic, atraumatic. Eyes: Pupils equal round and reactive to light, pkl extra-ocular motions intact. Lids and lashes normal. Conjunctiva and sclera are non-icteric and not injected. Cornea within normal limits. Periorbital areas with no swelling, redness, or edema. ENT: Nares patent. No nasal discharge, no septal abnormalities noted. Tympanic membranes are normal and external auditory canals are clear. Oropharynx with no redness, swelling, or masses, exudates, or evidence of obstruction, uvula midline. Mucous membranes moist. Neck: Trachea midline, no thyromegaly or masses palpated, and no cervical lymphadenopathy. Supple, full range of motion without nuchal rigidity, or vertebral point tenderness. No Meningismus. Chest/axilla: Normal chest wall appearance and motion. Nontender with no deformity. No lesions are appreciated. Cardiovascular: Regular rate and rhythm with a normal S1 and S2. No gallops, murmurs, or rubs. Normal PMI, no JVD. No pulse deficits. Respiratory: Lungs have equal breath sounds bilaterally, clear to auscultation and percussion. No rales, rhonchi or wheezes noted. No increased work of breathing, no retractions or nasal flaring. Abdomen/GI: Soft, non-tender, with normal bowel sounds. No distension or tympany. No guarding or rebound. No evidence of tenderness throughout. Back: No spinal tenderness. No costovertebral tenderness. Full range of motion. Skin: Warm, dry with normal turgor. Normal color with no rashes, no lesions, and no evidence of cellulitis. MS/ Extremity: Pulses equal, no cyanosis. Neurovascular intact. Full, normal range of motion. Neuro: Awake and alert, GCS 15, oriented to person, place, time, and situation. Cranial nerves II-XII grossly intact. Motor strength 5/5 in all extremities. Sensory grossly intact. Cerebellar exam normal. Normal gait. 23:32 Psych: Behavior/mood is cooperative, Affect is calm, Patient has no thoughts/intents to harm self or others. Vital Signs: 21:56 BP 148 / 104; Pulse 100; Resp 18; Temp 98.7; Pulse Ox 99% ; Height 5 ft. 3 in. (160.02 ll1 cm); Pain 5/10; 22:27 BP 130 / 94 Standing; Pulse 92; Resp 16; Pulse Ox 98% on R/A; vg1 MDM: 23:11 Patient medically screened. pkl 06/10 02:42 Data reviewed: vital signs, nurses notes, lab test result(s). ED course: Patient pkl evaluated by [facility] screener. Patient not suicidal or homicidal. Will follow up with [facility] as outpatient. Patient understood instruction. 06/09 22:49 Order name: Acetaminophen; Complete Time: 02:50 mw2 06/09 22:49 Order name: Basic Metabolic Panel; Complete Time: 02:50 mw2 06/09 22:49 Order name: CBC with Diff; Complete Time: 02:50 mw2 06/09 22:49 Order name: ETOH Level; Complete Time: 02:50 mw2 06/09 22:49 Order name: Hepatic Function; Complete Time: 02:50 mw2 06/09 22:49 Order name: PT-INR; Complete Time: 02:50 mw2 06/09 22:49 Order name: Ptt, Activated; Complete Time: 02:50 mw2 06/09 22:49 Order name: Salicylate; Complete Time: 02:50 mw2 06/09 22:49 Order name: Urine Drug Screen; Complete Time: 02:50 mw2 06/09 22:49 Order name: EKG; Complete Time: 22:50 mw2 06/09 22:49 Order name: EKG - Nurse/Tech; Complete Time: 00:25 mw2 06/10 00:56 Order name: Urine Dipstick--Ancillary (enter results); Complete Time: 02:50 06/09 22:49 Order name: IV Saline Lock; Complete Time: 00:01 mw2 06/09 22:49 Order name: Labs collected and sent; Complete Time: 00:01 mw2 06/09 22:49 Order name: Urine Dipstick-Ancillary (obtain specimen); Complete Time: 00:55 mw2 Administered Medications: 03:15 Not Given (Other Intervention Used): K-Dur 20 mEq PO once sg 03:15 Drug: Potassium Chloride 20 mEq Route: PO; sg Disposition: 06/10/20 02:45 Discharged to Home. Impression: Depression. - Condition is Stable. - Prescriptions for Paxil 20 mg Oral Tablet - take 1 tablet by ORAL route once daily .; 30 tablet. - Medication Reconciliation Form, Thank You Letter, Antibiotic Education, Prescription Opioid Use form. - Follow up: Private Physician; When: 1 week; Reason: Re-evaluation by your physician. - Problem is new. - Symptoms have improved. Signatures: Dispatcher [employer] EDJavi Oliveros RN RN sg Benson Andujar MD MD pkl Habalo, Winsy Laura Ryan 2 Eugene Madrid RN RN ll1 Corrections: (The following items were deleted from the chart) 03:16 02:45 06/10/2020 02:45 Discharged to Home. Impression: Depression. Condition is Stable. wh Forms are Medication Reconciliation Form, Thank You Letter, Antibiotic Education, Prescription Opioid Use. Follow up: Private Physician; When: 1 week; Reason: Re-evaluation by your physician. Problem is new. Symptoms have improved. pkl
--- NOTE | 2020-06-10 22:32 | EKG ---
Test Date: 2020-06-10 Test Time: 00:23:21 [employer] Guard: ALFREDO MEASUREMENT RESULTS: Intervals: Rate: 63 SC: 168 QRSD: 86 QT: 370 QTc: 378 Fidelity: P: 77 SC: 168 QRS: 81 T: 34 INTERPRETIVE STATEMENTS: Normal sinus rhythm Moderate voltage criteria for LVH, may be normal variant Borderline ECG Compared to ECG 08/28/2015 03:31:31 Left ventricular hypertrophy now present Sinus tachycardia no longer present Electronically Signed On 06-10-20 22:29:34 RATE ANALYST by Aguila Ojeda
== END 2020-06-10 03:16 | disposition home or self-care (01) ==
LOC: ER 21:25
DX: F32.9 Major depressive disorder, single episode, unspecified (principal); F17.210 Nicotine dependence, cigarettes, uncomplicated
CPT/HCPCS: 36415; 80048; 80076; 80307; 80320; 80329; 81003; 85025; 85610; 85730; 93005; 99283

== ENCOUNTER 2020-06-12 16:07 | Emergency (ER) | payer SELFPAY ==
--- OUTSIDE RECORDS SUMMARY | 2020-06-12 16:10 | XMS REPORT | Continuity of Care Document ---
:1990 Author Organization [facility] t Address [address] [place] [address] Care Team Providers Name Role Phone DR RUBIA DUMONT Attending Clinician Unavailable MARNIE, Attending Clinician Unavailable JESSY, Attending Clinician Unavailable JESSY, DR Rdz Attending Clinician Unavailable Carlie SMITH Attending Clinician Unavailable DR Dennise DUMONT Admitting Clinician Unavailable MARNIE, Admitting Clinician Unavailable JESSY, Admitting Clinician Unavailable JESSY, DR Rdz Admitting Clinician Unavailable Carlie SMITH Admitting Clinician [...] Department ID 2020-05-28 2020-05-28 Emergency E TIM [facility] [id number] [facility] 05:09:00 08:44:00 [facility] 2020-01-25 2020-01-25 Emergency E [facility] [id number] [facility] 00:08:00 00:08:00 2019-07-18 2019-07-18 Emergency E [facility] [id number] [facility] 14:06:00 14:06:00 2019-07-08 2019-07-08 Emergency E [facility] [id number] [facility]NW 17:22:00 17:22:00 2019-07-08 2019-07-08 Outpatient [facility] [id number] [facility]NW 17:00:00 17:00:00 2017-07-03 2017-07-03 Outpatient [facility] [id number] [address] [place] [address] 00:00:00 00:00:00 [facility] 2017-06-28 2017-06-29 Outpatient [facility] [id number] [address] [place] [address] 00:00:00 00:00:00 [facility] 2017-06-23 2017-06-23 Emergency E GERRI DYE [facility] [id number] [address] 11:52:00 13:51:00 [facility] 2017-06-21 2017-06-22 Emergency E JESSY [facility] [id number] [address] 23:24:00 02:15:00 [facility] 2016-11-09 2016-11-09 Emergency E TESHA JIMÉNZE [facility] 1000 [id number] [address] 12:10:00 13:05:00 [facility] Results Test Description Test Time Test [...] the FDA and the [employer] [place] [employer] (CAP) are more stringent than those required for this test. Therefore, the result should be interpreted with caution and close attention to other clinical and epidemiological data [id number] 07:38:00 Test Item Value Reference Range Interpretation [...] code = LEUK) NEGATIVE NEGATIVE BRAIN NATRIURETIC [id number] 06:26:00 Test Item Value Reference Range Interpretation Comments proBNP (test code = PBNP) 20 pg/mL 0-125 AMYLASE AND [id number] 06:24:00 Test Item Value Reference Range Interpretation Comments AMYLASE (test code = 10A) 55 U/L 28-100 LIPASE (test code = 60A) 221 IU/L 73-393 [id number] 06:24:00 Test Item Value Reference Range Interpretation Comments CPK (test code = 32A) 100 IU/L 39-308 COMPREHENSIVE METABOLIC [id number] 06:24:00 Test Item Value Reference Range Interpretation [...] code = 31A) 59 IU/L <=78 LDH-LACTIC [id number] 06:23:00 Test Item Value Reference Range Interpretation Comments LDH (test code = 33A) 195 IU/L 100-190 H [id number] 06:23:00 Test Item Value Reference Range Interpretation Comments FERRITIN (test code = A19) 122.3 ng/mL 26.0-388.0 TROPONIN [id number] 06:21:00 Test Item Value Reference Range Interpretation Comments TROPONIN I (test code = A84) <0.015 ng/mL 0.000-0.045 [id number] 06:18:00 Test Item Value Reference Range Interpretation Comments MAGNESIUM (test code = 48A) 2.2 mg/dL 1.8-2.4 C-REACTIVE PROTEIN [id number] 06:17:00 Test Item Value Reference Range Interpretation Comments CRP QUANT (test code <2.9 mg/L 0.0-2.9 = CRPQ) Method Change (test Please note the code = METHOD) change in Method and the reference range DIRECT INFLUENZA A AND B [id number] 06:16:00 Test Item Value Reference Range Interpretation Comments Direct Exam (test PRESUMPTIVE NEGATIVE FOR code = DE1) THE PRESENCE OF INFLUENZA ANTIGEN PRO TIME AND [id number] 06:12:00 Test Item Value Reference Range Interpretation [...] or LMW Heparin. Order Code is ANTI-XA [id number] 06:12:00 Test Item Value Reference Range Interpretation Comments D-DIMER (test code = <200 ng/mL D-DU 0-234 DDI) D-DIMER COMMENT (test *Level to rule out code = DDCOM) DVT or PE: <235 ng/mL D-DU* Venous Blood [id number] 06:03:00 Test Item Value Reference Range Interpretation Comments VpH (test code = 7.383 7.300-7.400 VPHRT) VpCO2 (test code = 46.0 mmHg 40.0-50.0 EXGO3AM) VpO2 (test code = 55.5 mmHg 30.0-40.0 H VPO2RT) HCO3? (test code = 26.8 mmol/L 22.0-26.0 H HCO3) RADHA (test code = RADHA) 1.7 mmol/L -3.0-3.0 tHb (test code = 15.1 g/dL 14.0-18.0 THBRT) vsO2 (test code = 90.7 % 55.0-75.0 H VSO2RT) FO2Hb (test code = 86.2 % IL7WANUZ) FCOHb (test code = 3.5 % FCOHBRTV) FMetHb (test code = 1.4 % FMETHBRTV) ABGTEMP (test code = * Temp Corrected Values* ABGTEMP) ABGTEMP (test code = 37.0 ?C ABGTEMP.) pH (T) (test code = 7.383 7.300-7.400 PHTEMPV) pCO2 (T) (test code = 46.0 mmHg 40.0-50.0 YLR0TCACU) pO2 (T) (test code = 55.5 mmHg 30.0-40.0 H BN2CXYEU) Device (test code = ROOM AIR DEVICE) [...] 09D) 8.8 mg/dL 8.3-9.5 CBC (INCLUDES AUTOMATED DIFFERENTIAL)*[id number] 13:04:00 Test Item Value Reference Range Interpretation [...] 2 VIEW *WW*2017-06-23 12:51:56Exam: Chest 2 viewsLocation: T1Bmlwqcx: cough, recent pneumonia.Comparison: 10/23/2016.Findings:The lungs are clear. Central peribronchial cuffing is present. No infiltrate oreffusion is seen. The pulmonary vasculature is normal. The heart size isnormal. The mediastinal silhouette is unremarkable. Thebony thorax is intact.Impression:Bronchitis .CT STONE PROTOCOL [id number] 01:06:08AFTER HOURS SERVICE ON: 06/22/2017 1:03 AMCT Scan of the Abdomen and Pelvis Without ContrastLocation Code B41Pcyulul: L flank painTechnique: Axial and reconstructed coronal [...] Noinflammatory changes seen.U/S TESTICULAR 2017-06-22 00:58:11U/S TESTICULARLocation: M2Qwvlh hours services provided 06/22/2017 12:56 AMIndication: L [...] with no acute testicular or epididymalabnormality.AMYLASE AND [id number] 00:33:00 Test Item Value Reference Range Interpretation Comments AMYLASE (test code = 10A) 65 U/L 28-100 LIPASE (test code = 60A) 140 IU/L 73-393 COMPREHENSIVE METABOLIC [id number] 00:33:00 Test Item Value Reference Range Interpretation [...] (test code = 31A) 29 IU/L <=78 [id number] 00:31:00 Test Item Value Reference Range Interpretation [...] 60A) 100 IU/L 73-393 CBC (INCLUDES AUTOMATED DIFFERENTIAL)*[id number] 14:19:00 Test Item Value Reference Range Interpretation [...] 2016-10-23 13:51:45Portable AP chest, 1 viewLocation Code: D8OIYIAPFC HISTORY: Abdominal painCOMPARISON: 07/14/2013COMMEN T: The lungs are clear and well inflated. The costophrenic angles are sharp. Thecardiomediastinal silhouette is unremarkable. The bones are intact.IMPRESSION: Stable chest with no acute abnormality.CT ABDOMEN AND PELVIS WITHOUT CONTRAST 2016-10-23 13:50:29CT abdomen and pelvis without contrastLocation Code: T2YVMWIJFH HISTORY: Abdominal painCOMPARISON: 03/2017Technique: Helical CT of [...] no acute abnormality.CT ABDOMEN AND PELVIS WITH [id number] 21:28:44CT abdomen and pelvis with contrastLocation Code: F5MMULCGLW HISTORY: Abdominal painCOMPARISON: 07/18/13, 07/13/13Technique: Helical CT [...] No acute intra-abdominal or pelvic abnormality.DRUGS OF [id number] 21:03:00 Test Item Value Reference Range Interpretation [...] 200 ng/mL Opiates 2000 ng/mL URINALYSIS WITH [id number] 20:50:00 Test Item Value Reference Range Interpretation [...] code = USPERM) /HPF NONE AMYLASE AND [id number] 20:44:00 Test Item Value Reference Range Interpretation Comments AMYLASE (test code = 10A) 46 U/L 28-100 LIPASE (test code = 60A) 128 IU/L 73-393 COMPREHENSIVE METABOLIC [id number] 20:44:00 Test Item Value Reference Range Interpretation [...]
[2020-06-12] MEDS ORDERED: METOCLOPRAMIDE 10 MG/2mL INJ ONE (16:54)
[2020-06-12] MEDS ORDERED: DIPHENHYDRAMINE 50 MG/ML VIAL ONE (16:55)
[2020-06-12] MEDS ORDERED: NA CHLORIDE 0.9% 1,000 ML ONE (16:55)
[2020-06-12 17:01] LABS: Absolute Lymphocytes (CBC) 1.9 K/uL (0.7-4.9); Basophils % 0.3 % (0-1.3); Hematocrit 44.4 % (39.6-49.0); Lymphocytes % 14.5 % (15.3-44.8); MPV 10.2 fL (7.6-11.3); RBC Red Blood Cell Count 4.77 M/uL (4.33-5.43)
[2020-06-12 17:17] LABS: Albumin 4.3 g/dL (3.4-5.0); Bilirubin Direct 0.2 mg/dL (0-0.2); Bilirubin Total 0.7 mg/dL (0.2-1.0); Potassium 3.6 mmol/L (3.5-5.1); Protein, Total 7.8 g/dL (6.4-8.2)
--- NOTE | 2020-06-12 19:02 | EDPHYS ---
Physician Documentation [facility] Name: Chico Leon Age: 29 yrs Sex: Male : 1990 Arrival Date: 06/12/2020 Time: 16:11 Bed 20 Private MD: ED Physician Ritesh Garcia HPI: 06/12 16:32 This 29 yrs old Male presents to ER via Unassigned with complaints of Vomiting.jmm 16:32 The patient presents to the emergency department with nausea, vomiting. Onset: The jmm symptoms/episode began/occurred gradually, 2 day(s) ago. Possible causes: unknown. The symptoms are aggravated by nothing. The symptoms are alleviated by nothing. Associated signs and symptoms: Pertinent positives: abdominal pain, Pertinent negatives: fever. This is a 29 year old male with a history of ptsd and depression that presents to the ED with complaints of nausea, vomiting worsening over the past 2 days. Patient states losing a significant amount of weight over the past 3 months. Recently evaluated in the ED for depression 2 days ago. Prescribed paxil. Patient states medication is helping. Denies SI or HI. Historical: - Allergies: 16:36 No Known Allergies; ca1 - Home Meds: 16:36 paroxetine HCl 20 mg oral tab 1 tab once daily [Active]; ca1 - PMHx: 16:36 Seizures; Anxiety; Depression; Pancreatitis; PTSD; ca1 16:25 Bipolar disorder; Schizophrenia; Borderline; rb3 - PSHx: 16:36 Appendectomy; ca1 - Immunization history:: Flu vaccine is not up to date. - Social history:: Smoking status: Patient reports the use of cigarette tobacco products, smokes three packs cigarettes per day. ROS: 16:32 Constitutional: Negative for fever, chills, and weight loss, Cardiovascular: Negative jmm for chest pain, palpitations, and edema, Respiratory: Negative for shortness of breath, cough, wheezing, and pleuritic chest pain. 16:32 Abdomen/GI: Positive for vomiting. 16:32 All other systems are negative. Exam: 16:32 Constitutional: This is a well developed, well nourished patient who is awake, alert, jmm and in no acute distress. Head/Face: atraumatic. Eyes: EOMI, no conjunctival erythema appreciated ENT: Moist Mucus Membranes Neck: Trachea midline, Supple Chest/axilla: Normal chest wall appearance and motion. Cardiovascular: Regular rate and rhythm. No edema appreciated Respiratory: Normal respirations, no respiratory distress appreciated Abdomen/GI: Non distended, soft Back: Normal ROM Skin: General appearance color normal MS/ Extremity: Moves all extremities, no obvious deformities appreciated, no edema noted to the lower extremities Neuro: Awake and alert, normal gait Psych: Behavior is normal, Mood is normal, Patient is cooperative and pleasant Vital Signs: 16:31 BP 176 / 96; Pulse 83; Resp 17 S; Temp 98.5(TE); Pulse Ox 99% on R/A; Height 5 ft. 3 ca1 in. (160.02 cm) (R); Pain 4/10; 17:30 BP 122 / 79; Pulse 60; Resp 16; Pulse Ox 97% ; rb3 18:12 BP 134 / 85; Pulse 63; Resp 17; Pulse Ox 97% ; rb3 MDM: 16:21 Patient medically screened. [facility] 18:58 Data reviewed: vital signs, nurses notes. Counseling: I had a detailed discussion with matilda the patient and/or guardian regarding: the historical points, exam findings, and any diagnostic results supporting the discharge/admit diagnosis, lab results, the need for outpatient follow up, to return to the emergency department if symptoms worsen or persist or if there are any questions or concerns that arise at home. ED course: Patient tolerates PO in the ED. Patient advised to follow up with psychiatry and otherwise given strict return precautions. Patient understood and agrees with the plan of care. . 06/12 16:32 Order name: Basic Metabolic Panel; Complete Time: 17:38 [facility] 06/12 16:32 Order name: CBC with Diff; Complete Time: 17:38 [facility] 06/12 16:32 Order name: Hepatic Function; Complete Time: 17:38 [facility] 06/12 16:32 Order name: Lipase; Complete Time: 17:38 [facility] 06/12 16:32 Order name: IV Saline Lock; Complete Time: 16:53 [facility] 06/12 16:32 Order name: Labs collected and sent; Complete Time: 16:53 [facility] 06/12 18:19 Order name: PO challenge; Complete Time: 18:36 [facility] Administered Medications: 16:55 Drug: NS 0.9% 1000 ml Route: IV; Rate: 1 bolus; Site: right antecubital; rb3 18:11 Follow up: IV Status: Completed infusion rb3 16:55 Drug: Reglan 10 mg Route: IVP; Site: right antecubital; rb3 17:10 Follow up: Response: No adverse reaction rb3 16:55 Drug: diphenhydrAMINE 25 mg Route: IVP; Site: right antecubital; rb3 17:10 Follow up: Response: No adverse reaction rb3 Disposition: 06/12/20 19:01 Discharged to Home. Impression: Vomiting. - Condition is Stable. - Discharge Instructions: Nausea and Vomiting, Adult. - Prescriptions for Zofran ODT 4 mg Oral tablet,disintegrating - place 1 tablet by TRANSLINGUAL route every 4-6 hours; 20 tablet. Hydroxyzine HCl 25 mg Oral Tablet - take 1 tablet by ORAL route every 6 hours As needed; 30 tablet. Pepcid 20 mg Oral Tablet - take 1 tablet by ORAL route every 12 hours for 10 days; 20 tablet. - Medication Reconciliation Form, Thank You Letter, Antibiotic Education, Prescription Opioid Use, SBAR form form. - Follow up: Private Physician; When: 2 - 3 days; Reason: Recheck today's complaints, Continuance of care, Re-evaluation by your physician. Addendum: 06/15/2020 07:11 Co-signature as Attending Physician, Ritesh Garcia MD. r n Signatures: Dispatcher [employer] EDMS Jd Villegas PA PA jmm Nieto, Roman, MD MD rn Acob, Cheryl RN RN Rebecca Casillas RN RN rb3 Corrections: (The following items were deleted from the chart) 06/12 19:18 19:01 06/12/2020 19:01 Discharged to Home. Impression: Vomiting. Condition is Stable. rb3 Forms are SBAR form, Medication Reconciliation Form, Thank You Letter, Antibiotic Education, Prescription Opioid Use. Follow up: Private Physician; When: 2 - 3 days; Reason: Recheck today's complaints, Continuance of care, Re-evaluation by your physician. matilda
--- NOTE | 2020-06-12 19:02 | ER ---
Nurse's Notes [facility] Name: Chico Leon Age: 29 yrs Sex: Male : 1990 Arrival Date: 06/12/2020 Time: 16:11 Bed 20 Private MD: Diagnosis: Vomiting Presentation: 06/12 16:31 Chief complaint: Patient states: I have psych problems and I was off meds for 2 years. ca1 Few days ago, I was here and was prescribed Paroxetine. Since then, I have been having trouble with BM, urination, N/V, loss of appetite. Also in the past 3 months, I have been losing weight fast. Also C/O L side abdominal pain. Coronavirus screen: Client denies travel out of the [place] in the last 14 days. nausea, vomiting. Client presents with at least one sign or symptom that may indicate coronavirus-19. Standard/surgical mask placed on the client. Provider contacted for isolation considerations. Ebola Screen: Patient negative for fever greater than or equal to 101.5 degrees Fahrenheit, and additional compatible Ebola Virus Disease symptoms Patient denies exposure to infectious person. Patient denies travel to an Ebola-affected area in the 21 days before illness onset. No symptoms or risks identified at this time. Initial Sepsis Screen: Does the patient meet any 2 criteria? No. Patient's initial sepsis screen is negative. Does the patient have a suspected source of infection? No. Patient's initial sepsis screen is negative. Risk Assessment: Do you want to hurt yourself or someone else? Patient reports no desire to harm self or others. Onset of symptoms was June 12, 2020. 16:31 Method Of Arrival: Ambulatory ca1 16:31 Acuity: RADHA 3 ca1 Historical: - Allergies: 16:36 No Known Allergies; ca1 - Home Meds: 16:36 paroxetine HCl 20 mg oral tab 1 tab once daily [Active]; ca1 - PMHx: 16:36 Seizures; Anxiety; Depression; Pancreatitis; PTSD; ca1 16:25 Bipolar disorder; Schizophrenia; Borderline; rb3 - PSHx: 16:36 Appendectomy; ca1 - Immunization history:: Flu vaccine is not up to date. - Social history:: Smoking status: Patient reports the use of cigarette tobacco products, smokes three packs cigarettes per day. Screenin:25 Abuse screen: Denies threats or abuse. Nutritional screening: unexplained weight loss. rb3 Tuberculosis screening: No symptoms or risk factors identified. Fall Risk None identified. Assessment: 16:25 General: Appears in no apparent distress. comfortable, Behavior is calm, cooperative, rb3 Denies fever. Pain: Complains of pain in left lower quadrant Pain currently is 2 out of 10 on a pain scale. Neuro: Level of Consciousness is awake, alert, obeys commands, Oriented to person, place, time, situation. Cardiovascular: Patient's skin is warm and dry. Respiratory: Airway is patent Respiratory effort is even, unlabored, Respiratory pattern is regular, symmetrical. GI: Abdomen is non-distended, Reports diarrhea, nausea, vomiting. Musculoskeletal: Range of motion: intact in all extremities. 17:20 Reassessment: Patient appears in no apparent distress at this time. No changes from rb3 previously documented assessment. 18:12 Reassessment: Patient appears in no apparent distress at this time. Patient and/or rb3 family updated on plan of care and expected duration. Pain level reassessed. Patient is alert, oriented x 3, equal unlabored respirations, skin warm/dry/pink. 18:37 Reassessment: Gave the pt. water to drink for the PO challenge. rb3 19:00 Reassessment: Patient appears in no apparent distress at this time. Patient and/or rb3 family updated on plan of care and expected duration. Pain level reassessed. Patient is alert, oriented x 3, equal unlabored respirations, skin warm/dry/pink. Pt. tolerated PO challenge well. No vomiting noted at this time. Vital Signs: 16:31 BP 176 / 96; Pulse 83; Resp 17 S; Temp 98.5(TE); Pulse Ox 99% on R/A; Height 5 ft. 3 ca1 in. (160.02 cm) (R); Pain 4/10; 17:30 BP 122 / 79; Pulse 60; Resp 16; Pulse Ox 97% ; rb3 18:12 BP 134 / 85; Pulse 63; Resp 17; Pulse Ox 97% ; rb3 ED Course: 16:11 Patient arrived in ED. ag5 16:12 [facility]leg[facility] 16:12 Ritesh Garcia MD is Attending Physician. [facility] 16:25 Patient has correct armband on for positive identification. Bed in low position. Call rb3 light in reach. Side rails up X 1. Pulse ox on. NIBP on. 16:35 Triage completed. ca1 16:35 Rebecca South, RN is Primary Nurse. rb3 16:36 Arm band placed on right wrist. ca1 16:53 Initial lab(s) drawn, by me, sent to lab. Inserted saline lock: 22 gauge in right jb1 antecubital area, using aseptic technique. Blood collected. 19:18 No provider procedures requiring assistance completed. IV discontinued, intact, rb3 bleeding controlled, No redness/swelling at site. Pressure dressing applied. Administered Medications: 16:55 Drug: NS 0.9% 1000 ml Route: IV; Rate: 1 bolus; Site: right antecubital; rb3 18:11 Follow up: IV Status: Completed infusion rb3 16:55 Drug: Reglan 10 mg Route: IVP; Site: right antecubital; rb3 17:10 Follow up: Response: No adverse reaction rb3 16:55 Drug: diphenhydrAMINE 25 mg Route: IVP; Site: right antecubital; rb3 17:10 Follow up: Response: No adverse reaction rb3 Outcome: 19:01 Discharge ordered by . matilda 19:18 Patient left the ED. rb3 19:18 Discharged to home ambulatory. rb3 19:18 Condition: stable 19:18 Discharge instructions given to patient, Instructed on discharge instructions, follow up and referral plans. medication usage, Demonstrated understanding of instructions, follow-up care, medications, Prescriptions given X 3. Signatures: Tom Scott jb1 Jd Villegas PA PA jmm Acob, Cheryl, RN RN ca1 Otoniel Marks ag5 Rebecca South, RN RN rb3
[2020-06-12 19:23] VITALS: TEMP 98.5
[2020-06-12 19:24] VITALS: O2SAT 97
[2020-06-12 19:25] VITALS: BP 134/85
== END 2020-06-12 19:18 | disposition home or self-care (01) ==
LOC: ER 16:07
DX: R11.10 Vomiting, unspecified (principal); F20.9 Schizophrenia, unspecified; F17.210 Nicotine dependence, cigarettes, uncomplicated
CPT/HCPCS: 36415; 80048; 80076; 83690; 85025; 96361; 96374; 96375; 99284; J1200; J2765; J7030

== ENCOUNTER 2020-06-13 11:19 | Emergency (ER) | payer SELFPAY ==
--- OUTSIDE RECORDS SUMMARY | 2020-06-13 11:53 | XMS REPORT | Continuity of Care Document ---
:1990 Author Organization [facility] Address [address] [place] [address] Care Team Providers Name Role Phone DR RUBIA DUMONT Attending Clinician Unavailable MARNIE, Attending Clinician Unavailable DR JESSY Attending Clinician Unavailable JESSY, DR Rdz Attending Clinician Unavailable Carlie SMITH Attending Clinician Unavailable DR Dennise DUMONT Admitting Clinician Unavailable MARNIE, Admitting Clinician Unavailable DR JESSY Admitting Clinician Unavailable [...] Department ID 2020-05-28 2020-05-28 Emergency E TIM [facility] 1000 [id number] [facility] 05:09:00 08:44:00 [facility] 2020-01-25 2020-01-25 Emergency E [facility] [id number] [facility] 00:08:00 00:08:00 2019-07-18 2019-07-18 Emergency E [facility] [id number] [facility]NW 14:06:00 14:06:00 2019-07-08 2019-07-08 Emergency E [facility]NW [facility]NW [id number] [facility]NW 17:22:00 17:22:00 2019-07-08 2019-07-08 Outpatient MHNW [facility]NW [id number] [facility]NW 17:00:00 17:00:00 2017-07-03 2017-07-03 Outpatient [facility] [id number] [address] [place] [address] 00:00:00 00:00:00 [facility] 2017-06-28 2017-06-29 Outpatient [facility] [id number] [address] [place] [address] 00:00:00 00:00:00 [facility] 2017-06-23 2017-06-23 Emergency E GERRI DYE [facility] [id number] [address] 11:52:00 13:51:00 [facility] 2017-06-21 2017-06-22 Emergency E JESSY [facility] [id number] [address] 23:24:00 02:15:00 [facility] 2016-11-09 2016-11-09 Emergency E TESHA JIMÉNEZ [facility] 1000 [id number] [address] 12:10:00 13:05:00 [facility] Results Test Description Test Time Test [...] the FDA and the College of the [employer] (CAP) are more stringent than those required for this test. Therefore, the result should be interpreted with caution and close attention to other clinical and epidemiological data [id number] 07:38:00 Test Item Value Reference Range Interpretation [...] code = LEUK) NEGATIVE NEGATIVE BRAIN NATRIURETIC [id number] 06:26:00 Test Item Value Reference Range Interpretation Comments proBNP (test code = PBNP) 20 pg/mL 0-125 AMYLASE AND [id number] 06:24:00 Test Item Value Reference Range Interpretation Comments AMYLASE (test code = 10A) 55 U/L 28-100 LIPASE (test code = 60A) 221 IU/L 73-393 [id number] 06:24:00 Test Item Value Reference Range Interpretation Comments CPK (test code = 32A) 100 IU/L 39-308 COMPREHENSIVE METABOLIC [id number] 06:24:00 Test Item Value Reference Range Interpretation [...] code = 31A) 59 IU/L <=78 LDH-LACTIC [id number] 06:23:00 Test Item Value Reference Range Interpretation Comments LDH (test code = 33A) 195 IU/L 100-190 H [id number] 06:23:00 Test Item Value Reference Range Interpretation Comments FERRITIN (test code = A19) 122.3 ng/mL 26.0-388.0 TROPONIN [id number] 06:21:00 Test Item Value Reference Range Interpretation Comments TROPONIN I (test code = A84) <0.015 ng/mL 0.000-0.045 [id number] 06:18:00 Test Item Value Reference Range Interpretation Comments MAGNESIUM (test code = 48A) 2.2 mg/dL 1.8-2.4 C-REACTIVE PROTEIN [id number] 06:17:00 Test Item Value Reference Range Interpretation Comments CRP QUANT (test code <2.9 mg/L 0.0-2.9 = CRPQ) Method Change (test Please note the code = METHOD) change in Method and the reference range DIRECT INFLUENZA A AND B [id number] 06:16:00 Test Item Value Reference Range Interpretation Comments Direct Exam (test PRESUMPTIVE NEGATIVE FOR code = DE1) THE PRESENCE OF INFLUENZA ANTIGEN PRO TIME AND [id number] 06:12:00 Test Item Value Reference Range Interpretation [...] or LMW Heparin. Order Code is ANTI-XA [id number] 06:12:00 Test Item Value Reference Range Interpretation Comments D-DIMER (test code = <200 ng/mL D-DU 0-234 DDI) D-DIMER COMMENT (test *Level to rule out code = DDCOM) DVT or PE: <235 ng/mL D-DU* Venous Blood [id number] 06:03:00 Test Item Value Reference Range Interpretation Comments VpH (test code = 7.383 7.300-7.400 VPHRT) VpCO2 (test code = 46.0 mmHg 40.0-50.0 YLLJ7OA) VpO2 (test code = 55.5 mmHg 30.0-40.0 H VPO2RT) HCO3? (test code = 26.8 mmol/L 22.0-26.0 H HCO3) RADHA (test code = RADHA) 1.7 mmol/L -3.0-3.0 tHb (test code = 15.1 g/dL 14.0-18.0 THBRT) vsO2 (test code = 90.7 % 55.0-75.0 H VSO2RT) FO2Hb (test code = 86.2 % KH9EQWJW) FCOHb (test code = 3.5 % FCOHBRTV) FMetHb (test code = 1.4 % FMETHBRTV) ABGTEMP (test code = * Temp Corrected Values* ABGTEMP) ABGTEMP (test code = 37.0 ?C ABGTEMP.) pH (T) (test code = 7.383 7.300-7.400 PHTEMPV) pCO2 (T) (test code = 46.0 mmHg 40.0-50.0 VTT2ZMSJO) pO2 (T) (test code = 55.5 mmHg 30.0-40.0 H PS2KUCYR) Device (test code = ROOM AIR DEVICE) [...] 09D) 8.8 mg/dL 8.3-9.5 CBC (INCLUDES AUTOMATED DIFFERENTIAL)*[id number] 13:04:00 Test Item Value Reference Range Interpretation [...] 2 VIEW *WW*2017-06-23 12:51:56Exam: Chest 2 viewsLocation: S8Patuzxn: cough, recent pneumonia.Comparison: 10/23/2016.Findings:The lungs are clear. Central peribronchial cuffing is present. No infiltrate oreffusion is seen. The pulmonary vasculature is normal. The heart size isnormal. The mediastinal silhouette is unremarkable. Thebony thorax is intact.Impression:Bronchitis .CT STONE PROTOCOL [id number] 01:06:08AFTER HOURS SERVICE ON: 06/22/2017 1:03 AMCT Scan of the Abdomen and Pelvis Without ContrastLocation Code [id number]: L flank painTechnique: Axial and reconstructed coronal [...] Noinflammatory changes seen.U/S TESTICULAR 2017-06-22 00:58:11U/S TESTICULARLocation: U4Ufqpw hours services provided 06/22/2017 12:56 AMIndication: L [...] with no acute testicular or epididymalabnormality.AMYLASE AND [id number] 00:33:00 Test Item Value Reference Range Interpretation Comments AMYLASE (test code = 10A) 65 U/L 28-100 LIPASE (test code = 60A) 140 IU/L 73-393 COMPREHENSIVE METABOLIC [id number] 00:33:00 Test Item Value Reference Range Interpretation [...] (test code = 31A) 29 IU/L <=78 [id number] 00:31:00 Test Item Value Reference Range Interpretation [...] 60A) 100 IU/L 73-393 CBC (INCLUDES AUTOMATED DIFFERENTIAL)*[id number] 14:19:00 Test Item Value Reference Range Interpretation [...] 2016-10-23 13:51:45Portable AP chest, 1 viewLocation Code: [id number] HISTORY: Abdominal painCOMPARISON: 07/14/2013COMMEN T: The lungs are clear and well inflated. The costophrenic angles are sharp. Thecardiomediastinal silhouette is unremarkable. The bones are intact.IMPRESSION: Stable chest with no acute abnormality.CT ABDOMEN AND PELVIS WITHOUT CONTRAST 2016-10-23 13:50:29CT abdomen and pelvis without contrastLocation Code: [id number] HISTORY: Abdominal painCOMPARISON: 03/2017Technique: Helical CT of [...] no acute abnormality.CT ABDOMEN AND PELVIS WITH [id number] 21:28:44CT abdomen and pelvis with contrastLocation Code: [id number] HISTORY: Abdominal painCOMPARISON: 07/18/13, 07/13/13Technique: Helical CT [...] No acute intra-abdominal or pelvic abnormality.DRUGS OF [id number] 21:03:00 Test Item Value Reference Range Interpretation [...] 200 ng/mL Opiates 2000 ng/mL URINALYSIS WITH [id number] 20:50:00 Test Item Value Reference Range Interpretation [...] code = USPERM) /HPF NONE AMYLASE AND [id number] 20:44:00 Test Item Value Reference Range Interpretation Comments AMYLASE (test code = 10A) 46 U/L 28-100 LIPASE (test code = 60A) 128 IU/L 73-393 COMPREHENSIVE METABOLIC [id number] 20:44:00 Test Item Value Reference Range Interpretation [...]
--- NOTE | 2020-06-13 12:54 | RAD REPORT ---
EXAM DESCRIPTION: RAD - Chest Single View - 06/13/2020 12:49 pm CLINICAL HISTORY: Chest pain;Dyspnea Chest pain. COMPARISON: Chest Single View dated 05/16/2020 FINDINGS: Portable technique limits examination quality. The lungs are grossly clear. The heart is normal in size. No displaced fractures. IMPRESSION: No acute intrathoracic process suspected.
[2020-06-13 14:45] LABS: Absolute Lymphocytes (CBC) 2.3 K/uL (0.7-4.9); Basophils % 0.6 % (0-1.3); Hematocrit 41.8 % (39.6-49.0); Lymphocytes % 23.8 % (15.3-44.8); MPV 10.6 fL (7.6-11.3); RBC Red Blood Cell Count 4.49 M/uL (4.33-5.43)
[2020-06-13 14:47] LABS: Protime INR 1.1
[2020-06-13 15:02] LABS: ALT/SGPT 21 U/L (12-78); AST/SGOT 12 U/L (15-37); Albumin 4.2 g/dL (3.4-5.0); Alkaline Phosphatase 70 U/L (45-117); BUN Blood Urea Nitrogen 11 mg/dL (7-18); Bicarbonate 29 mmol/L (21-32); Bilirubin Direct 0.1 mg/dL (0-0.2); Bilirubin Total 0.6 mg/dL (0.2-1.0); Glucose Level 96 mg/dL (74-106); Magnesium 2.4 mg/dL (1.8-2.4); NT PRO-BNP 27 pg/mL (<125); Potassium 3.7 mmol/L (3.5-5.1); Protein, Total 7.5 g/dL (6.4-8.2); Sodium Level 139 mmol/L (136-145); Troponin (Emerg Dept Use Only) < 0.02 ng/mL (0.0-0.045)
--- NOTE | 2020-06-13 15:52 | EDPHYS ---
Physician Documentation [facility] Name: Chico Leon Age: 29 yrs Sex: Male : 1990 Arrival Date: 06/13/2020 Time: 11:22 Bed 30 Private MD: ED Physician Manuel Oswald HPI: 06/13 15:19 This 29 yrs old Male presents to ER via Ambulatory with complaints of Chest kb Pain. 15:19 The patient or guardian reports chest pain that is located primarily in the chest kb diffusely. The pain does not radiate. Associated signs and symptoms: Pertinent positives: shortness of breath. The chest pain is described as tightness. Duration: The patient or guardian reports multiple episodes, that are intermittent. Modifying factors: The symptoms are alleviated by nothing. the symptoms are aggravated by nothing. Severity of pain: At its worst the pain was moderate in the emergency department the pain is unchanged. The patient has not experienced similar symptoms in the past. The patient has been recently seen at the [facility] Emergency Department. Pt reports chest pain that started this morning. STates he recently started paxil so he isn't sure it that is the cause or possibly anxiety. STates he also gets shortness of breath. States the pain is worse when he is working and better if he's laying down.. Historical: - Allergies: 11:47 No Known Allergies; ss - PMHx: 11:47 Anxiety; Bipolar disorder; Depression; Pancreatitis; PTSD; Schizophrenia; Borderline; ss Seizures; - PSHx: 11:47 Appendectomy; ss - Immunization history:: Adult Immunizations up to date. - Social history:: Smoking status: Patient reports the use of cigarette tobacco products, smokes three packs cigarettes per day. ROS: 15:16 Constitutional: Negative for fever, chills, and weight loss, Neck: Negative for injury, kb pain, and swelling, Abdomen/GI: Negative for abdominal pain, nausea, vomiting, diarrhea, and constipation, Back: Negative for injury and pain, MS/Extremity: Negative for injury and deformity, Skin: Negative for injury, rash, and discoloration, Neuro: Negative for headache, weakness, numbness, tingling, and seizure. 15:16 Cardiovascular: Positive for chest pain, Negative for edema, orthopnea, palpitations, paroxysmal nocturnal dyspnea. 15:16 Respiratory: Positive for shortness of breath. Exam: 15:16 Constitutional: This is a well developed, well nourished patient who is awake, alert, kb and in no acute distress. Head/Face: Normocephalic, atraumatic. Chest/axilla: Normal chest wall appearance and motion. Nontender with no deformity. No lesions are appreciated. Cardiovascular: Regular rate and rhythm with a normal S1 and S2. No gallops, murmurs, or rubs. Normal PMI, no JVD. No pulse deficits. Respiratory: Lungs have equal breath sounds bilaterally, clear to auscultation and percussion. No rales, rhonchi or wheezes noted. No increased work of breathing, no retractions or nasal flaring. Abdomen/GI: Soft, non-tender, with normal bowel sounds. No distension or tympany. No guarding or rebound. No evidence of tenderness throughout. Skin: Warm, dry with normal turgor. Normal color with no rashes, no lesions, and no evidence of cellulitis. MS/ Extremity: Pulses equal, no cyanosis. Neurovascular intact. Full, normal range of motion. Neuro: Awake and alert, GCS 15, oriented to person, place, time, and situation. Cranial nerves II-XII grossly intact. Motor strength 5/5 in all extremities. Sensory grossly intact. Cerebellar exam normal. Normal gait. 15:25 ECG was reviewed by the Attending Physician. Vital Signs: 11:44 BP 159 / 83; Pulse 86; Resp 16; Temp 98.1(TE); Pulse Ox 99% on R/A; Height 5 ft. 3 in. ss (160.02 cm); Pain 4/10; 13:33 BP 140 / 85; Pulse 68; Resp 16; Pulse Ox 100% on R/A; vg1 14:30 BP 135 / 89; Pulse 63; Resp 22; Pulse Ox 97% on R/A; vg1 15:30 BP 131 / 80; Pulse 65; Resp 16; Pulse Ox 97% on R/A; vg1 MDM: 11:48 Patient medically screened. kb 15:15 Data reviewed: vital signs, nurses notes. Data interpreted: Pulse oximetry: on room air kb is 97 %. Interpretation: normal. Counseling: I had a detailed discussion with the patient and/or guardian regarding: the historical points, exam findings, and any diagnostic results supporting the discharge/admit diagnosis, lab results, radiology results, the need for outpatient follow up, a family practitioner, a psychiatrist, to return to the emergency department if symptoms worsen or persist or if there are any questions or concerns that arise at home. 06/13 13:16 Order name: Basic Metabolic Panel; Complete Time: 15:05 kb 06/13 13:16 Order name: CBC with Diff; Complete Time: 14:57 kb 06/13 13:16 Order name: LFT's; Complete Time: 15:05 kb 06/13 13:16 Order name: Magnesium; Complete Time: 15:05 kb 06/13 13:16 Order name: NT PRO-BNP; Complete Time: 15:05 kb 06/13 13:16 Order name: PT-INR; Complete Time: 14:57 kb 06/13 11:48 Order name: EKG; Complete Time: 11:48 ss 06/13 11:48 Order name: EKG - Nurse/Tech; Complete Time: 13:27 ss 06/13 11:48 Order name: Chest Single View XRAY; Complete Time: 12:56 kb 06/13 13:16 Order name: Troponin (emerg Dept Use Only); Complete Time: 15:05 kb 06/13 13:16 Order name: Cardiac monitoring; Complete Time: 13:28 kb 06/13 13:16 Order name: IV Saline Lock; Complete Time: 13:44 kb 06/13 15:15 Order name: EKG; Complete Time: 15:16 kb 06/13 15:15 Order name: Troponin (emerg Dept Use Only); Complete Time: 15:51 kb 06/13 13:16 Order name: Labs collected and sent; Complete Time: 13:44 kb 06/13 13:16 Order name: O2 Per Protocol; Complete Time: 13:28 kb 06/13 13:16 Order name: O2 Sat Monitoring; Complete Time: 13:28 kb 06/13 15:15 Order name: EKG - Nurse/Tech; Complete Time: 15:27 kb EC:50 Rate is 82 beats/min. Rhythm is regular. QRS Finger is Normal. OH interval is normal at kb 146 msec. QRS interval is normal at 86 msec. QT interval is normal at 354 msec. 15:26 Rate is 60 beats/min. Rhythm is regular. QRS Finger is Normal. OH interval is normal at kb 150 msec. QRS interval is normal at 86 msec. QT interval is normal at 386 msec. Administered Medications: No medications were administered Disposition: 06/14 07:30 Co-signature as Attending Physician, Manuel Oswald MD I agree with the assessment and kdr plan of care. Disposition: 06/13/20 15:51 Discharged to Home. Impression: Chest pain, unspecified, Anxiety disorder, unspecified. - Condition is Stable. - Discharge Instructions: Nonspecific Chest Pain, Wgkr-zq-Kzls, Panic Attacks, Yzpf-mk-Jqoq. - Medication Reconciliation Form, Thank You Letter, Antibiotic Education, Prescription Opioid Use form. - Follow up: Private Physician; When: 2 - 3 days; Reason: Recheck today's complaints, Continuance of care, Re-evaluation by your physician. Follow up: Emergency Department; When: As needed; Reason: Worsening of condition. Signatures: Dispatcher [employer] EDCA Joslyn Laurent, WOODEN SHADE HARDWARE INSTALLER-C WOODEN SHADE HARDWARE INSTALLER-Ckb Manuel Oswald MD MD [facility] Yi Plummer RN RN Yovana Mayer RN RN vg1 Corrections: (The following items were deleted from the chart) 06/13 16:19 15:51 06/13/2020 15:51 Discharged to Home. Impression: Chest pain, unspecified; Anxiety vg1 disorder, unspecified. Condition is Stable. Discharge Instructions: Nonspecific Chest Pain, Cayv-gt-Ofac, Panic Attacks, Sneg-ra-Kzuc. Forms are Medication Reconciliation Form, Thank You Letter, Antibiotic Education, Prescription Opioid Use. Follow up: Private Physician; When: 2 - 3 days; Reason: Recheck today's complaints, Continuance of care, Re-evaluation by your physician. Follow up: Emergency Department; When: As needed; Reason: Worsening of condition. kb
--- NOTE | 2020-06-13 15:52 | ER ---
Nurse's Notes [facility] Name: Chico Leon Age: 29 yrs Sex: Male : 1990 Arrival Date: 06/13/2020 Time: 11:22 Bed 30 Private MD: Diagnosis: Chest pain, unspecified;Anxiety disorder, unspecified Presentation: 06/13 11:44 Chief complaint: Patient states: chest discomfort and shortness of breath that began ss this morning. "It just feels like i've been running.". Coronavirus screen: Client presents with at least one sign or symptom that may indicate coronavirus-19. Standard/surgical mask placed on the client. Ebola Screen: Patient denies exposure to infectious person. Patient denies travel to an Ebola-affected area in the 21 days before illness onset. Initial Sepsis Screen: Does the patient meet any 2 criteria? Yes Does the patient have a suspected source of infection? No. Patient's initial sepsis screen is negative. Risk Assessment: Do you want to hurt yourself or someone else? Patient reports no desire to harm self or others. Onset of symptoms was June 13, 2020. 11:44 Method Of Arrival: Ambulatory ss 11:44 Acuity: RADHA 3 ss Historical: - Allergies: 11:47 No Known Allergies; ss - PMHx: 11:47 Anxiety; Bipolar disorder; Depression; Pancreatitis; PTSD; Schizophrenia; Borderline; ss Seizures; - PSHx: 11:47 Appendectomy; ss - Immunization history:: Adult Immunizations up to date. - Social history:: Smoking status: Patient reports the use of cigarette tobacco products, smokes three packs cigarettes per day. Screenin:33 Abuse screen: Denies threats or abuse. Nutritional screening: No deficits noted. vg1 Tuberculosis screening: No symptoms or risk factors identified. Fall Risk None identified. Assessment: 13:31 General: Appears in no apparent distress. comfortable, Behavior is calm, cooperative. vg1 Pain: Complains of pain in chest Pain currently is 0 out of 10 on a pain scale. Pain began this morning. Alleviated by rest, Aggravated by increased activity. Neuro: Level of Consciousness is awake, alert, obeys commands, Oriented to person, place, time, situation. Cardiovascular: Capillary refill < 3 seconds in bilateral fingers Patient's skin is warm and dry. Respiratory: Airway is patent Respiratory effort is even, unlabored, Respiratory pattern is regular, symmetrical. GI: No signs and/or symptoms were reported involving the gastrointestinal system. : No signs and/or symptoms were reported regarding the genitourinary system. EENT: No signs and/or symptoms were reported regarding the EENT system. Derm: Skin is intact, is healthy with good turgor. 14:30 Reassessment: Patient appears in no apparent distress at this time. Patient and/or vg1 family updated on plan of care and expected duration. Pain level reassessed. Patient is alert, oriented x 3, equal unlabored respirations, skin warm/dry/pink. Rates pain level 4/10. Provider notified. Vital Signs: 11:44 BP 159 / 83; Pulse 86; Resp 16; Temp 98.1(TE); Pulse Ox 99% on R/A; Height 5 ft. 3 in. ss (160.02 cm); Pain 4/10; 13:33 BP 140 / 85; Pulse 68; Resp 16; Pulse Ox 100% on R/A; vg1 14:30 BP 135 / 89; Pulse 63; Resp 22; Pulse Ox 97% on R/A; vg1 15:30 BP 131 / 80; Pulse 65; Resp 16; Pulse Ox 97% on R/A; vg1 ED Course: 11:22 Patient arrived in ED. rg4 11:22 Joslyn Laurent F[facility]-C [facility] kb 11:22 Manuel Oswald MD is Attending Physician. kb 11:47 Triage completed. ss 11:47 Arm band placed on right wrist. ss 12:49 Chest Single View XRAY In Process Unspecified. EDMS 13:15 Yovana Pascual, RN is Primary Nurse. vg1 13:26 Patient has correct armband on for positive identification. Bed in low position. Call [facility] light in reach. Side rails up X 1. market development trainer on. Pulse ox on. NIBP on. 13:43 Initial lab(s) drawn, by vt, sent to lab. Inserted saline lock: 22 gauge in right 5 antecubital area, using aseptic technique. Blood collected. 13:44 Troponin (emerg Dept Use Only) Sent. [facility] 13:44 Basic Metabolic Panel Sent. [facility] 13:44 CBC with Diff Sent. [facility] 13:44 LFT's Sent. mh5 13:44 Magnesium Sent. mh5 13:45 NT PRO-BNP Sent. mh5 13:45 PT-INR Sent. 5 14:28 Lab(s) recollected, by me, sent to lab. jp3 15:19 Repeat lab(s) drawn. by me, sent to lab. jp3 15:19 Troponin (emerg Dept Use Only) Sent. jp3 15:25 EKG done, by ED staff, reviewed by Joslyn IBRAHIM. jp3 16:18 No provider procedures requiring assistance completed. IV discontinued, intact, vg1 bleeding controlled, No redness/swelling at site. Pressure dressing applied. Patient maintains SpO2 saturation greater than 95% on room air. Administered Medications: No medications were administered Outcome: 15:51 Discharge ordered by . kb 16:18 Discharged to home ambulatory. vg1 16:18 Condition: stable 16:18 Discharge instructions given to patient, Instructed on discharge instructions, follow up and referral plans. Demonstrated understanding of instructions, follow-up care. 16:19 Patient left the ED. vg1 Signatures: Dispatcher [employer] EDMS Joslyn Laurent, SOLAR SALES SPECIALIST-C SOLAR SALES SPECIALIST-Yi Zhao, RN RN Yasmine Mayer 4 Leesa Mcqueen [facility] Guido Medina jp3 Yovana Pascual, RN RN vg1 Corrections: (The following items were deleted from the chart) 15:27 15:27 TROPONIN (EMERG DEPT USE ONLY)+C.LAB.BRZ drawn and sent. jp3 jp3
[2020-06-13 16:26] VITALS: TEMP 98.1
[2020-06-13 16:29] VITALS: O2SAT 97
[2020-06-13 16:30] VITALS: BP 131/80
--- NOTE | 2020-06-15 06:12 | EKG ---
Test Date: 2020-06-13 Test Time: 15:23:11 Pelletizer: KEANU MEASUREMENT RESULTS: Intervals: Rate: 60 DC: 150 QRSD: 86 QT: 386 QTc: 386 [place]: P: 73 DC: 150 QRS: 66 T: 45 INTERPRETIVE STATEMENTS: Normal sinus rhythm Normal ECG Compared to ECG 06/13/2020 11:50:37 Sinus arrhythmia no longer present Electronically Signed On 06-15-20 06:09:19 EXTRAS CASTING DIRECTOR by Aguila Ojeda
--- NOTE | 2020-06-15 06:13 | EKG ---
Test Date: 2020-06-13 Test Time: 11:50:37 Strategic Procurement Manager: SO MEASUREMENT RESULTS: Intervals: Rate: 82 IN: 146 QRSD: 86 QT: 354 QTc: 413 [place]: P: 76 IN: 146 QRS: 72 T: 49 INTERPRETIVE STATEMENTS: Normal sinus rhythm with sinus arrhythmia Normal ECG Compared to ECG 06/10/2020 00:23:21 Left ventricular hypertrophy no longer present Electronically Signed On 06-15-20 06:09:25 MEDICAL RESEARCH TECH by Aguila Ojeda
== END 2020-06-13 16:19 | disposition home or self-care (01) ==
LOC: ER 11:19
DX: R07.9 Chest pain, unspecified (principal); F41.9 Anxiety disorder, unspecified; F17.210 Nicotine dependence, cigarettes, uncomplicated; F31.9 Bipolar disorder, unspecified; F43.10 Post-traumatic stress disorder, unspecified; F20.9 Schizophrenia, unspecified
CPT/HCPCS: 36415; 71045; 80048; 80076; 83735; 83880; 84484; 85025; 85610; 93005; 99285

== ENCOUNTER 2020-08-14 22:20 | Emergency (ER) | payer SELFPAY ==
--- OUTSIDE RECORDS SUMMARY | 2020-08-14 22:25 | XMS REPORT | Continuity of Care Document ---
:1990 Author Organization [facility] t Address [address] [place] [address] Care Team Providers Name Role Phone DR [...] Facility Department ID 2020-05-28 2020-05-28 Emergency E [facility] [id number] [facility] 05:09:00 08:44:00 [facility] 2020-01-25 2020-01-25 Emergency E [facility] 7513 [facility] 00:08:00 00:08:00 2019-07-18 2019-07-18 Emergency E [facility] 7512 [facility] 14:06:00 14:06:00 2019-07-08 2019-07-08 Emergency E [facility] 7511 [facility] 17:22:00 17:22:00 2019-07-08 2019-07-08 Outpatient [facility] 0041 [facility] 17:00:00 17:00:00 2017-07-03 2017-07-03 [facility] [id number] [address] [place] [address] 00:00:00 00:00:00 [facility] 2017-06-28 2017-06-29 Outpatient [facility] [id number] [address] [place] [address] 00:00:00 00:00:00 [facility] 2017-06-23 2017-06-23 Emergency E GERRI DYE [facility] [id number] 11:52:00 13:51:00 [facility] 2017-06-21 2017-06-22 Emergency E JESSY [facility] [id number] [address] 23:24:00 02:15:00 [facility] 2016-11-09 2016-11-09 Emergency E TESHA JIMÉNEZ [facility] 1000 [id number] [address] 12:10:00 13:05:00 [facility] Results Test Description Test Time [...] the FDA and the [employer] (CAP) are more stringent than those required for this test. Therefore, the result should be interpreted with caution and close attention to other clinical and epidemiological data [id number] 07:38:00 Test Item Value Reference Range Interpretation [...] code = LEUK) NEGATIVE NEGATIVE BRAIN NATRIURETIC [id number] 06:26:00 Test Item Value Reference Range Interpretation Comments proBNP (test code = PBNP) 20 pg/mL 0-125 AMYLASE AND [id number] 06:24:00 Test Item Value Reference Range Interpretation Comments AMYLASE (test code = 10A) 55 U/L 28-100 LIPASE (test code = 60A) 221 IU/L 73-393 [id number] 06:24:00 Test Item Value Reference Range Interpretation Comments CPK (test code = 32A) 100 IU/L 39-308 COMPREHENSIVE METABOLIC [id number] 06:24:00 Test Item Value Reference Range Interpretation [...] code = 31A) 59 IU/L <=78 LDH-LACTIC [id number] 06:23:00 Test Item Value Reference Range Interpretation Comments LDH (test code = 33A) 195 IU/L 100-190 H [id number] 06:23:00 Test Item Value Reference Range Interpretation Comments FERRITIN (test code = A19) 122.3 ng/mL 26.0-388.0 TROPONIN [id number] 06:21:00 Test Item Value Reference Range Interpretation Comments TROPONIN I (test code = A84) <0.015 ng/mL 0.000-0.045 [id number] 06:18:00 Test Item Value Reference Range Interpretation Comments MAGNESIUM (test code = 48A) 2.2 mg/dL 1.8-2.4 C-REACTIVE PROTEIN [id number] 06:17:00 Test Item Value Reference Range Interpretation Comments CRP QUANT (test code <2.9 mg/L 0.0-2.9 = CRPQ) Method Change (test Please note the code = METHOD) change in Method and the reference range DIRECT INFLUENZA A AND B [id number] 06:16:00 Test Item Value Reference Range Interpretation Comments Direct Exam (test PRESUMPTIVE NEGATIVE FOR code = DE1) THE PRESENCE OF INFLUENZA ANTIGEN PRO TIME AND [id number] 06:12:00 Test Item Value Reference Range Interpretation [...] or LMW Heparin. Order Code is ANTI-XA [id number] 06:12:00 Test Item Value Reference Range Interpretation Comments D-DIMER (test code = <200 ng/mL D-DU 0-234 DDI) D-DIMER COMMENT (test *Level to rule out code = DDCOM) DVT or PE: <235 ng/mL D-DU* Venous Blood [id number] 06:03:00 Test Item Value Reference Range Interpretation Comments VpH (test code = 7.383 7.300-7.400 VPHRT) VpCO2 (test code = 46.0 mmHg 40.0-50.0 KXZX6OA) VpO2 (test code = 55.5 mmHg 30.0-40.0 H VPO2RT) HCO3? (test code = 26.8 mmol/L 22.0-26.0 H HCO3) RADHA (test code = RADHA) 1.7 mmol/L -3.0-3.0 tHb (test code = 15.1 g/dL 14.0-18.0 THBRT) vsO2 (test code = 90.7 % 55.0-75.0 H VSO2RT) FO2Hb (test code = 86.2 % [id number]) FCOHb (test code = 3.5 % FCOHBRTV) FMetHb (test code = 1.4 % FMETHBRTV) ABGTEMP (test code = * Temp Corrected Values* ABGTEMP) ABGTEMP (test code = 37.0 ?C ABGTEMP.) pH (T) (test code = 7.383 7.300-7.400 PHTEMPV) pCO2 (T) (test code = 46.0 mmHg 40.0-50.0 HOD9DKXVU) pO2 (T) (test code = 55.5 mmHg 30.0-40.0 H OR0DTTTK) Device (test code = ROOM AIR DEVICE) [...] 09D) 8.8 mg/dL 8.3-9.5 CBC (INCLUDES AUTOMATED DIFFERENTIAL)*[id number] 13:04:00 Test Item Value Reference Range Interpretation [...] 2 VIEW *WW*2017-06-23 12:51:56Exam: Chest 2 viewsLocation: A1Lqasrsu: cough, recent pneumonia.Comparison: 10/23/2016.Findings:The lungs are clear. Central peribronchial cuffing is present. No infiltrate oreffusion is seen. The pulmonary vasculature is normal. The heart size isnormal. The mediastinal silhouette is unremarkable. Thebony thorax is intact.Impression:Bronchitis .CT STONE PROTOCOL [id number] 01:06:08AFTER HOURS SERVICE ON: 06/22/2017 1:03 AMCT Scan of the Abdomen and Pelvis Without ContrastLocation Code [id number]: L flank painTechnique: Axial and reconstructed coronal [...] Noinflammatory changes seen.U/S TESTICULAR 2017-06-22 00:58:11U/S TESTICULARLocation: V5Ampne hours services provided 06/22/2017 12:56 AMIndication: L [...] with no acute testicular or epididymalabnormality.AMYLASE AND [id number] 00:33:00 Test Item Value Reference Range Interpretation Comments AMYLASE (test code = 10A) 65 U/L 28-100 LIPASE (test code = 60A) 140 IU/L 73-393 COMPREHENSIVE METABOLIC [id number] 00:33:00 Test Item Value Reference Range Interpretation [...] (test code = 31A) 29 IU/L <=78 [id number] 00:31:00 Test Item Value Reference Range Interpretation [...] 60A) 100 IU/L 73-393 CBC (INCLUDES AUTOMATED DIFFERENTIAL)*[id number] 14:19:00 Test Item Value Reference Range Interpretation [...] 2016-10-23 13:51:45Portable AP chest, 1 viewLocation Code: [id number] HISTORY: Abdominal painCOMPARISON: 07/14/2013COMMEN T: The lungs are clear and well inflated. The costophrenic angles are sharp. Thecardiomediastinal silhouette is unremarkable. The bones are intact.IMPRESSION: Stable chest with no acute abnormality.CT ABDOMEN AND PELVIS WITHOUT CONTRAST 2016-10-23 13:50:29CT abdomen and pelvis without contrastLocation Code: [id number] HISTORY: Abdominal painCOMPARISON: 03/2017Technique: Helical CT of [...] no acute abnormality.CT ABDOMEN AND PELVIS WITH [id number] 21:28:44CT abdomen and pelvis with contrastLocation Code: [id number] HISTORY: Abdominal painCOMPARISON: 07/18/13, 07/13/13Technique: Helical CT [...] No acute intra-abdominal or pelvic abnormality.DRUGS OF [id number] 21:03:00 Test Item Value Reference Range Interpretation [...] 200 ng/mL Opiates 2000 ng/mL URINALYSIS WITH [id number] 20:50:00 Test Item Value Reference Range Interpretation [...] code = USPERM) /HPF NONE AMYLASE AND [id number] 20:44:00 Test Item Value Reference Range Interpretation Comments AMYLASE (test code = 10A) 46 U/L 28-100 LIPASE (test code = 60A) 128 IU/L 73-393 COMPREHENSIVE METABOLIC [id number] 20:44:00 Test Item Value Reference Range Interpretation [...]
[2020-08-14 23:48] LABS: SARS-COV-2 RT PCR POSITIVE (NEGATIVE)
--- NOTE | 2020-08-14 23:52 | ER ---
Nurse's Notes [facility] Name: Chico Leon Age: 29 yrs Sex: Male : 1990 Arrival Date: 08/14/2020 Time: 22:24 Bed 7 Private MD: Diagnosis: Coronavirus infection, unspecified Presentation: 08/14 22:50 Chief complaint: Patient states: Reports he lost taste and smell about three days ago. ea Coronavirus screen: Client presents with at least one sign or symptom that may indicate coronavirus-19. Standard/surgical mask placed on the client. Provider contacted for isolation considerations. Ebola Screen: No symptoms or risks identified at this time. Initial Sepsis Screen: Does the patient meet any 2 criteria? No. Patient's initial sepsis screen is negative. Does the patient have a suspected source of infection? No. Patient's initial sepsis screen is negative. Risk Assessment: Do you want to hurt yourself or someone else? Patient reports no desire to harm self or others. Onset of symptoms was August 14, 2020. 22:50 Method Of Arrival: Ambulatory ea 22:50 Acuity: RADHA 4 ea Triage Assessment: 22:53 General: Appears in no apparent distress. Behavior is calm, cooperative, appropriate ea for age. Pain: Denies pain. Neuro: Level of Consciousness is awake, alert, obeys commands, Oriented to person, place, time. Respiratory: No deficits noted. Derm: Skin is pink, warm \T\ dry. 08/15 00:08 Respiratory: Reports Onset: The symptoms/episode began/occurred the patient has mild rv shortness of breath. Historical: - Allergies: 08/14 22:53 No Known Allergies; ea - PMHx: 22:53 Anxiety; Bipolar disorder; Depression; Pancreatitis; PTSD; Schizophrenia; Borderline; ea Seizures; - PSHx: 22:53 Appendectomy; ea - Immunization history:: Adult Immunizations up to date. - Social history:: Smoking status: Patient reports the use of cigarette tobacco products, smokes one-half pack cigarettes per day. Screenin:52 Abuse screen: Denies threats or abuse. Nutritional screening: No deficits noted. ea Tuberculosis screening: No symptoms or risk factors identified. Fall Risk None identified. Assessment: 22:45 General: Appears in no apparent distress. comfortable, Behavior is calm, cooperative, jb4 appropriate for age. Pain: Denies pain. Neuro: Level of Consciousness is awake, alert, obeys commands, Oriented to person, place, time, situation. Cardiovascular: Patient's skin is warm and dry. Respiratory: Airway is patent Respiratory effort is even, unlabored, Respiratory pattern is regular, symmetrical. GI: No signs and/or symptoms were reported involving the gastrointestinal system. : No signs and/or symptoms were reported regarding the genitourinary system. EENT: No signs and/or symptoms were reported regarding the EENT system. Derm: Skin is intact, Skin is pink, warm \T\ dry. Musculoskeletal: Circulation, motion, and sensation intact. Range of motion: intact in all extremities. 08/15 00:08 Cardiovascular: Rhythm is sinus rhythm. Respiratory: Breath sounds are clear. rv Vital Signs: 08/14 22:50 BP 143 / 89; Pulse 83; Resp 19; Temp 98.0; Pulse Ox 98% ; Weight 79.38 kg; Height 5 ft. ea 3 in. (160.02 cm); 22:50 Body Mass Index 31.00 (79.38 kg, 160.02 cm) ea ED Course: 22:24 Patient arrived in ED. am4 22:27 Joslyn Laurent FNP-C is [facility]. kb 22:27 Rasheed Graham MD is Attending Physician. kb 22:41 Devante Fernandez, HAILEY is Primary Nurse. rv 22:52 Triage completed. ea 22:52 Patient has correct armband on for positive identification. Bed in low position. Call ea light in reach. Side rails up X2. 22:52 Arm band placed on right wrist. Patient placed in an exam room, on a stretcher, on ea pulse oximetry. 08/15 00:08 No provider procedures requiring assistance completed. Patient did not have IV access rv during this emergency room visit. Administered Medications: No medications were administered Outcome: 08/14 23:51 Discharge ordered by . kb 08/15 00:08 Discharged to home ambulatory. rv Condition: good Discharge instructions given to patient, Instructed on discharge instructions, follow up and referral plans. Demonstrated understanding of instructions, follow-up care. 00:08 Patient left the ED. rv Signatures: Joslyn Laurent FNP-C FNP-Ckb Bryson, James, RN RN jb4 Antunez, Elena, RN RN ea Vicente, Devante, RN Erica Márquez Corrections: (The following items were deleted from the chart) 08/14 22:54 22:50 Coronavirus screen: At this time, the client does not indicate any symptoms ea associated with coronavirus-19. ea
--- NOTE | 2020-08-14 23:52 | EDPHYS ---
Physician Documentation [facility] Name: Chico Leon Age: 29 yrs Sex: Male : 1990 Arrival Date: 08/14/2020 Time: 22:24 Bed 7 Private MD: ED Physician Rasheed Graham HPI: 08/14 23:30 This 29 yrs old Male presents to ER via Ambulatory with complaints of LOSS OF kb TASTE/SMELL, Shortness Of Breath. 23:30 The patient or guardian reports difficulty breathing. Onset: The symptoms/episode kb began/occurred 3 day(s) ago. Severity of symptoms: At their worst the symptoms were moderate, in the emergency department the symptoms are unchanged. Modifying factors: The symptoms are alleviated by nothing, the symptoms are aggravated by nothing. Associated signs and symptoms: Pertinent positives: no taste or smell, Pertinent negatives: chest pain, diarrhea, ear ache, fever, nausea, rhinorrhea, sore throat, vomiting. The patient has not experienced similar symptoms in the past. The patient has not recently seen a physician. Pt states sometimes he is sitting and feels like he is short of breath. Reports he lost his taste and smell as well. Historical: - Allergies: 22:53 No Known Allergies; ea - PMHx: 22:53 Anxiety; Bipolar disorder; Depression; Pancreatitis; PTSD; Schizophrenia; Borderline; ea Seizures; - PSHx: 22:53 Appendectomy; ea - Immunization history:: Adult Immunizations up to date. - Social history:: Smoking status: Patient reports the use of cigarette tobacco products, smokes one-half pack cigarettes per day. ROS: 23:30 Constitutional: Negative for fever, chills, and weight loss, Cardiovascular: Negative kb for chest pain, palpitations, and edema, Abdomen/GI: Negative for abdominal pain, nausea, vomiting, diarrhea, and constipation, Neuro: Negative for headache, weakness, numbness, tingling, and seizure. 23:30 ENT: Positive for loss of taste and smell. 23:30 Respiratory: Positive for shortness of breath. Exam: 23:30 Constitutional: This is a well developed, well nourished patient who is awake, alert, kb and in no acute distress. Head/Face: Normocephalic, atraumatic. Cardiovascular: Regular rate and rhythm with a normal S1 and S2. No gallops, murmurs, or rubs. No pulse deficits. Respiratory: Respirations even and unlabored. No increased work of breathing, no retractions or nasal flaring. Abdomen/GI: Soft, non-tender. No distention Skin: Warm, dry with normal turgor. Normal color with no rashes, no lesions, and no evidence of cellulitis. MS/ Extremity: Pulses equal, no cyanosis. Neurovascular intact. Full, normal range of motion. Neuro: Awake and alert, GCS 15, oriented to person, place, time, and situation. Moves all extremities. Normal gait. Vital Signs: 22:50 BP 143 / 89; Pulse 83; Resp 19; Temp 98.0; Pulse Ox 98% ; Weight 79.38 kg; Height 5 ft. ea 3 in. (160.02 cm); 22:50 Body Mass Index 31.00 (79.38 kg, 160.02 cm) ea MDM: 22:36 Patient medically screened. kb 23:32 Data reviewed: vital signs, nurses notes. Data interpreted: Pulse oximetry: on room air kb is 98 %. Interpretation: normal. Counseling: I had a detailed discussion with the patient and/or guardian regarding: the historical points, exam findings, and any diagnostic results supporting the discharge/admit diagnosis, lab results, the need for outpatient follow up, a family practitioner, to return to the emergency department if symptoms worsen or persist or if there are any questions or concerns that arise at home. 08/14 23:48 Order name: COVID-19/FLU A+B; Complete Time: 23:52 EDMS Administered Medications: No medications were administered Disposition: 08/15 05:36 Co-signature as Attending Physician, Rasheed Graham MD I agree with the assessment and tw4 plan of care. Disposition: 08/14/20 23:51 Discharged to Home. Impression: Coronavirus infection, unspecified. - Condition is Stable. - Discharge Instructions: Viral Respiratory Infection, Qggq-Ob-Vqzk, COVID-19. - Medication Reconciliation Form, Thank You Letter, Antibiotic Education, Prescription Opioid Use, Work release form form. - Follow up: Emergency Department; When: As needed; Reason: Worsening of condition. Follow up: Private Physician; When: 2 - 3 days; Reason: Recheck today's complaints, Continuance of care, Re-evaluation by your physician. Signatures: Dispatcher [employer] EDMT Joslyn Laurent, HUMAN RESOURCES ASSOCIATE-C HUMAN RESOURCES ASSOCIATE-Ckb Lisa Peters, RN RN Rasheed Christianson MD MD tw4 Devante Fernandez, RN RN rv Corrections: (The following items were deleted from the chart) 08/14 22:51 22:37 Influenza Screen (A \T\ B)+BA.LAB.BRZ ordered. [facility] EDMT 22:51 22:37 CORONAVIRUS+MR.LAB.BRZ ordered. [facility] 08/15 00:08 08/14 23:51 08/14/2020 23:51 Discharged to Home. Impression: Coronavirus infection, rv unspecified. Condition is Stable. Forms are Medication Reconciliation Form, Thank You Letter, Antibiotic Education, Prescription Opioid Use. Follow up: Emergency Department; When: As needed; Reason: Worsening of condition. Follow up: Private Physician; When: 2 - 3 days; Reason: Recheck today's complaints, Continuance of care, Re-evaluation by your physician. kb
[2020-08-15 18:38] VITALS: BP 143/89; TEMP 98; O2SAT 98
== END 2020-08-15 00:08 | disposition home or self-care (01) ==
LOC: ER 22:20
DX: U07.1 COVID-19 (principal); F17.210 Nicotine dependence, cigarettes, uncomplicated; F41.9 Anxiety disorder, unspecified; F31.9 Bipolar disorder, unspecified; F43.10 Post-traumatic stress disorder, unspecified; F20.9 Schizophrenia, unspecified
CPT/HCPCS: 0240U; 99284

== ENCOUNTER 2020-10-23 21:00 | Emergency (ER) | payer SELFPAY ==
--- OUTSIDE RECORDS SUMMARY | 2020-10-23 21:05 | XMS REPORT | Continuity of Care Document ---
:1990 Author Organization [facility] t Address [address] [place] [address] Care Team Providers Name Role Phone DR [...] Department ID 2020-05-28 2020-05-28 Emergency E [facility] [id number] [facility] 05:09:00 08:44:00 [facility] 2020-01-25 2020-01-25 Emergency E [facility] 7513 [facility] 00:08:00 00:08:00 2019-07-18 2019-07-18 Emergency E [facility] 7512 [facility] 14:06:00 14:06:00 2019-07-08 2019-07-08 Emergency E [facility] 7511 [facility] 17:22:00 17:22:00 2019-07-08 2019-07-08 Outpatient [facility] 0041 [facility]NW 17:00:00 17:00:00 2017-07-03 2017-07-03 Outpatient [facility] [id number] [address] [place] [address] 00:00:00 00:00:00 [facility] 2017-06-28 2017-06-29 Outpatient [facility] [id number] [address] [place] [address] 00:00:00 00:00:00 [facility] 2017-06-23 2017-06-23 Emergency E GERRI DYE [facility] [id number] [address] 11:52:00 13:51:00 [facility] 2017-06-21 2017-06-22 Emergency E JESSY [facility] [id number] [address] 23:24:00 02:15:00 [facility] 2016-11-09 2016-11-09 Emergency E TESHA JIMÉNEZ [facility] 1000 [id number] [address] 12:10:00 13:05:00 [facility] Results Test Description Test Time Test Comments [...] the FDA and the [employer] (CAP) are more stringent than those required for this test. Therefore, the result should be interpreted with caution and close attention to other clinical and epidemiological data [id number] 07:38:00 Test Item Value Reference Range Interpretation [...] code = LEUK) NEGATIVE NEGATIVE BRAIN NATRIURETIC [id number] 06:26:00 Test Item Value Reference Range Interpretation Comments proBNP (test code = PBNP) 20 pg/mL 0-125 AMYLASE AND [id number] 06:24:00 Test Item Value Reference Range Interpretation Comments AMYLASE (test code = 10A) 55 U/L 28-100 LIPASE (test code = 60A) 221 IU/L 73-393 [id number] 06:24:00 Test Item Value Reference Range Interpretation Comments CPK (test code = 32A) 100 IU/L 39-308 COMPREHENSIVE METABOLIC [id number] 06:24:00 Test Item Value Reference Range Interpretation [...] code = 31A) 59 IU/L <=78 LDH-LACTIC [id number] 06:23:00 Test Item Value Reference Range Interpretation Comments LDH (test code = 33A) 195 IU/L 100-190 H [id number] 06:23:00 Test Item Value Reference Range Interpretation Comments FERRITIN (test code = A19) 122.3 ng/mL 26.0-388.0 TROPONIN [id number] 06:21:00 Test Item Value Reference Range Interpretation Comments TROPONIN I (test code = A84) <0.015 ng/mL 0.000-0.045 [id number] 06:18:00 Test Item Value Reference Range Interpretation Comments MAGNESIUM (test code = 48A) 2.2 mg/dL 1.8-2.4 C-REACTIVE PROTEIN [id number] 06:17:00 Test Item Value Reference Range Interpretation Comments CRP QUANT (test code <2.9 mg/L 0.0-2.9 = CRPQ) Method Change (test Please note the code = METHOD) change in Method and the reference range DIRECT INFLUENZA A AND B [id number] 06:16:00 Test Item Value Reference Range Interpretation Comments Direct Exam (test PRESUMPTIVE NEGATIVE FOR code = DE1) THE PRESENCE OF INFLUENZA ANTIGEN PRO TIME AND [id number] 06:12:00 Test Item Value Reference Range Interpretation [...] or LMW Heparin. Order Code is ANTI-XA [id number] 06:12:00 Test Item Value Reference Range Interpretation Comments D-DIMER (test code = <200 ng/mL D-DU 0-234 DDI) D-DIMER COMMENT (test *Level to rule out code = DDCOM) DVT or PE: <235 ng/mL D-DU* Venous Blood [id number] 06:03:00 Test Item Value Reference Range Interpretation Comments VpH (test code = 7.383 7.300-7.400 VPHRT) VpCO2 (test code = 46.0 mmHg 40.0-50.0 [id number]) VpO2 (test code = 55.5 mmHg 30.0-40.0 H VPO2RT) HCO3? (test code = 26.8 mmol/L 22.0-26.0 H HCO3) RADHA (test code = RADHA) 1.7 mmol/L -3.0-3.0 tHb (test code = 15.1 g/dL 14.0-18.0 THBRT) vsO2 (test code = 90.7 % 55.0-75.0 H VSO2RT) FO2Hb (test code = 86.2 % OV1VRKGR) FCOHb (test code = 3.5 % FCOHBRTV) FMetHb (test code = 1.4 % FMETHBRTV) ABGTEMP (test code = * Temp Corrected Values* ABGTEMP) ABGTEMP (test code = 37.0 ?C ABGTEMP.) pH (T) (test code = 7.383 7.300-7.400 PHTEMPV) pCO2 (T) (test code = 46.0 mmHg 40.0-50.0 QYT6PPTGL) pO2 (T) (test code = 55.5 mmHg 30.0-40.[address]9SUCBN) Device (test code = ROOM AIR DEVICE) [...] 09D) 8.8 mg/dL 8.3-9.5 CBC (INCLUDES AUTOMATED DIFFERENTIAL)*[id number] 13:04:00 Test Item Value Reference Range Interpretation [...] 2 VIEW *WW*2017-06-23 12:51:56Exam: Chest 2 viewsLocation: D6Uwoxhei: cough, recent pneumonia.Comparison: 10/23/2016.Findings:The lungs are clear. Central peribronchial cuffing is present. No infiltrate oreffusion is seen. The pulmonary vasculature is normal. The heart size isnormal. The mediastinal silhouette is unremarkable. Thebony thorax is intact.Impression:Bronchitis .CT STONE PROTOCOL [id number] 01:06:08AFTER HOURS SERVICE ON: 06/22/2017 1:03 AMCT Scan of the Abdomen and Pelvis Without ContrastLocation Code B30Iafmggj: L flank painTechnique: Axial and reconstructed coronal [...] Noinflammatory changes seen.U/S TESTICULAR 2017-06-22 00:58:11U/S TESTICULARLocation: L9Vkwej hours services provided 06/22/2017 12:56 AMIndication: L [...] with no acute testicular or epididymalabnormality.AMYLASE AND [id number] 00:33:00 Test Item Value Reference Range Interpretation Comments AMYLASE (test code = 10A) 65 U/L 28-100 LIPASE (test code = 60A) 140 IU/L 73-393 COMPREHENSIVE METABOLIC [id number] 00:33:00 Test Item Value Reference Range Interpretation [...] (test code = 31A) 29 IU/L <=78 [id number] 00:31:00 Test Item Value Reference Range Interpretation [...] 60A) 100 IU/L 73-393 CBC (INCLUDES AUTOMATED DIFFERENTIAL)*[id number] 14:19:00 Test Item Value Reference Range Interpretation [...] 2016-10-23 13:51:45Portable AP chest, 1 viewLocation Code: [id number] HISTORY: Abdominal painCOMPARISON: 07/14/2013COMMEN T: The lungs are clear and well inflated. The costophrenic angles are sharp. Thecardiomediastinal silhouette is unremarkable. The bones are intact.IMPRESSION: Stable chest with no acute abnormality.CT ABDOMEN AND PELVIS WITHOUT CONTRAST 2016-10-23 13:50:29CT abdomen and pelvis without contrastLocation Code: [id number] HISTORY: Abdominal painCOMPARISON: 03/2017Technique: Helical CT of [...] no acute abnormality.CT ABDOMEN AND PELVIS WITH [id number] 21:28:44CT abdomen and pelvis with contrastLocation Code: [id number] HISTORY: Abdominal painCOMPARISON: 07/18/13, 07/13/13Technique: Helical CT [...] No acute intra-abdominal or pelvic abnormality.DRUGS OF [id number] 21:03:00 Test Item Value Reference Range Interpretation [...] 200 ng/mL Opiates 2000 ng/mL URINALYSIS WITH [id number] 20:50:00 Test Item Value Reference Range Interpretation [...] code = USPERM) /HPF NONE AMYLASE AND [id number] 20:44:00 Test Item Value Reference Range Interpretation Comments AMYLASE (test code = 10A) 46 U/L 28-100 LIPASE (test code = 60A) 128 IU/L 73-393 COMPREHENSIVE METABOLIC [id number] 20:44:00 Test Item Value Reference Range Interpretation [...]
[2020-10-23] MEDS ORDERED: ACETAMINOPHEN 500 MG TAB ONE (22:21)
[2020-10-23] MEDS ORDERED: HYDROCODONE/CHLORPHEN 5 ML/OSYR ONE (22:22)
[2020-10-23] MEDS ORDERED: NA CHLORIDE 0.9% 1,000 ML ONE (22:22)
[2020-10-23 22:35] LABS: Absolute Lymphocytes (CBC) 2.8 K/uL (0.7-4.9); Basophils % 0.7 % (0-1.3); Hematocrit 43.6 % (39.6-49.0); Lymphocytes % 21.5 % (15.3-44.8); MPV 10.2 fL (7.6-11.3); RBC Red Blood Cell Count 4.72 M/uL (4.33-5.43)
[2020-10-23 22:36] LABS: Protime INR 1.03
[2020-10-23 22:47] LABS: ALT/SGPT 39 U/L (12-78); AST/SGOT 15 U/L (15-37); Alkaline Phosphatase 57 U/L (45-117); BUN Blood Urea Nitrogen 14 mg/dL (7-18); Bicarbonate 29 mmol/L (21-32); Bilirubin Direct 0.1 mg/dL (0-0.2); Bilirubin Total 0.4 mg/dL (0.2-1.0); Glucose Level 97 mg/dL (74-106); NT PRO-BNP 22 pg/mL (<125); Potassium 3.9 mmol/L (3.5-5.1); Protein, Total 7.5 g/dL (6.4-8.2); Sodium Level 142 mmol/L (136-145); Troponin (Emerg Dept Use Only) < 0.02 ng/mL (0.0-0.045)
[2020-10-23 23:09] LABS: SARS-COV-2 RT PCR NEGATIVE (NEGATIVE)
[2020-10-23 23:14] LABS: Blood Morphology Comment NOT SEEN (NOT SEEN); Platelet Estimate ADEQ
--- NOTE | 2020-10-24 00:06 | ER ---
Nurse's Notes [facility] Name: Chico Leon Age: 30 yrs Sex: Male : 1990 Arrival Date: 10/23/2020 Time: 21:02 Bed 20 Private MD: Diagnosis: Acute bronchitis Presentation: 10/23 21:17 Chief complaint: Patient states: 'I havent been feeling well for the past couple of vg1 days. My chest feels like it is on fire' Pt states Nausea and Dirarrhea. Coronavirus screen: Client denies travel out of the [place] in the last 14 days. Ebola Screen: Patient negative for fever greater than or equal to 101.5 degrees Fahrenheit, and additional compatible Ebola Virus Disease symptoms. Initial Sepsis Screen: Does the patient meet any 2 criteria? No. Patient's initial sepsis screen is negative. Does the patient have a suspected source of infection? No. Patient's initial sepsis screen is negative. Risk Assessment: Do you want to hurt yourself or someone else? Patient reports no desire to harm self or others. Onset of symptoms was October 21, 2020. 21:17 Method Of Arrival: Ambulatory vg1 21:17 Acuity: RADHA 3 vg1 Triage Assessment: 21:19 General: Appears in no apparent distress. uncomfortable, Behavior is calm, cooperative. vg1 Pain: Complains of pain in chest Pain currently is 8 out of 10 on a pain scale. Cardiovascular: Patient's skin is warm and dry. Historical: - Allergies: 21:19 No Known Allergies; vg1 - PMHx: 21:19 Anxiety; Bipolar disorder; Depression; Pancreatitis; PTSD; Schizophrenia; Borderline; vg1 Seizures; - PSHx: 21:19 Appendectomy; vg1 - Immunization history:: Adult Immunizations up to date. - Social history:: Smoking status: Patient reports the use of cigarette tobacco products, smokes one-half pack cigarettes per day. Screenin:26 Abuse screen: Denies threats or abuse. Denies injuries from another. Nutritional ak2 screening: No deficits noted. Tuberculosis screening: No symptoms or risk factors identified. Fall Risk None identified. Vital Signs: 21:17 BP 145 / 95; Pulse 107; Resp 20; Pulse Ox 97% on R/A; Weight 74.84 kg; Height 5 ft. 3 vg1 in. (160.02 cm); Pain 8/10; 21:24 Temp 98.5(O); ak2 23:20 BP 129 / 90; Pulse 78; Resp 16; Pulse Ox 100% on R/A; ak2 21:17 Body Mass Index 29.23 (74.84 kg, 160.02 cm) vg1 ED Course: 21:02 Patient arrived in ED. cf2 21:12 Christiano Wolf is Primary Nurse. ak2 21:19 Triage completed. vg1 21:19 Arm band placed on. vg1 21:21 Nilson Wu PA is PHCP. cp 21:21 Benson Andujar MD is Attending Physician. cp 21:26 No apparent distress. ak2 21:26 Patient has correct armband on for positive identification. quality assurance monitor final on. ak2 21:26 No provider procedures requiring assistance completed. Inserted saline lock: 20 gauge ak2 in right antecubital area, using aseptic technique. Patient maintains SpO2 saturation greater than 95% on room air. 22:43 XRAY Chest (1 view) In Process Unspecified. EDMS 10/24 00:19 IV discontinued. ak2 Administered Medications: 10/23 22:06 Drug: Tylenol 1000 mg Route: PO; ak2 22:06 Drug: NS 0.9% 1000 ml Route: IV; Rate: 1 bolus; Site: left antecubital; ak2 22:06 Drug: Tussionex Pennkinetic ER (chlorpheniramine-hydrocodone) 5 ml Route: PO; ak2 23:56 Drug: TORadol - (ketorolac) 15 mg Route: IVP; Site: left antecubital; ak2 Outcome: 10/24 00:05 Discharge ordered by . cp 00:19 Discharged to home ambulatory. ak2 00:19 Condition: good 00:19 Discharge instructions given to patient, family, Prescriptions given X 3. 00:20 Patient left the ED. ak2 00:51 Patient left the ED. bb Signatures: Dispatcher [employer] EDMS Ana Paula Ferrara, RN RN bb Nilson Wu PA PA cp Frazier, Celesta cf2 Yovana Pascual RN RN vg1 Christiano Wolf ak2
--- NOTE | 2020-10-24 00:07 | EDPHYS ---
Physician Documentation [facility] Name: Chico Leon Age: 30 yrs Sex: Male : 1990 Arrival Date: 10/23/2020 Time: 21:02 Bed 20 Private MD: ED Physician Benson Andujar HPI: 10/23 22:05 This 30 yrs old Male presents to ER via Ambulatory with complaints of Vision cp Problem, Chest Pain, Shortness Of Breath, Headache. 22:05 The patient or guardian reports chest pain that is located primarily in the anterior cp chest wall, bilaterally. The pain does not radiate. Associated signs and symptoms: Pertinent positives: cough, headache, shortness of breath, Pertinent negatives: abdominal pain, diaphoresis, lower extremity pain, lower extremity swelling, palpitations, syncope, vomiting. Historical: - Allergies: 21:19 No Known Allergies; vg1 - PMHx: 21:19 Anxiety; Bipolar disorder; Depression; Pancreatitis; PTSD; Schizophrenia; Borderline; vg1 Seizures; - PSHx: 21:19 Appendectomy; vg1 - Immunization history:: Adult Immunizations up to date. - Social history:: Smoking status: Patient reports the use of cigarette tobacco products, smokes one-half pack cigarettes per day. ROS: 22:10 Constitutional: Negative for chills, fever, poor PO intake. cp 22:10 Eyes: Negative for injury, pain, redness, and discharge. cp 22:10 ENT: Negative for ear pain, sore throat, difficulty swallowing, difficulty handling secretions. 22:10 Cardiovascular: Positive for chest pain, with cough, Negative for edema. 22:10 Respiratory: Positive for cough, "sounds productive", shortness of breath, Negative for wheezing. 22:10 Abdomen/GI: Negative for abdominal pain, vomiting, diarrhea, constipation. 22:10 Back: Negative for radiated pain. 22:10 Neuro: Positive for headache, Negative for altered mental status, dizziness, syncope, weakness. 22:10 All other systems are negative. Exam: 21:25 ECG was reviewed by the Attending Physician. cp 22:15 Constitutional: The patient appears in no acute distress, alert, awake, cp non-diaphoretic, non-toxic, well developed, well nourished. 22:15 Head/Face: Normocephalic, atraumatic. cp 22:15 Eyes: Periorbital structures: appear normal, Conjunctiva: normal, no exudate, no injection, Sclera: no appreciated abnormality, Lids and lashes: appear normal, bilaterally. 22:15 ENT: External ear(s): are unremarkable, Nose: is normal, Mouth: Lips: moist, Oral mucosa: moist, Posterior pharynx: Airway: no evidence of obstruction, patent. 22:15 Neck: ROM/movement: is normal, is supple, without pain, no range of motions limitations. 22:15 Chest/axilla: Inspection: normal, Palpation: is normal, no crepitus, no tenderness. 22:15 Cardiovascular: Rate: tachycardic, Rhythm: regular, Heart sounds: murmur, not appreciated, Edema: is not appreciated, JVD: is not appreciated. 22:15 Respiratory: the patient does not display signs of respiratory distress, Respirations: normal, no use of accessory muscles, no retractions, labored breathing, is not present, Breath sounds: bronchial sounds, that are mild, are heard diffusely, decreased breath sounds, are not appreciated, stridor, is not appreciated, wheezing: is not appreciated. 22:15 Abdomen/GI: Exam negative for discomfort, distension, guarding, Inspection: abdomen appears normal. 22:15 Neuro: Orientation: to person, place \\T\\ time. Mentation: is normal, Motor: moves all fours, strength is normal, Sensation: is normal. Vital Signs: 21:17 BP 145 / 95; Pulse 107; Resp 20; Pulse Ox 97% on R/A; Weight 74.84 kg; Height 5 ft. 3 vg1 in. (160.02 cm); Pain 8/10; 21:24 Temp 98.5(O); ak2 23:20 BP 129 / 90; Pulse 78; Resp 16; Pulse Ox 100% on R/A; ak2 21:17 Body Mass Index 29.23 (74.84 kg, 160.02 cm) vg1 MDM: 21:26 Patient medically screened. cp 22:00 Differential diagnosis: acute myocardial infarction, acute pericarditis, pericarditis, cp pleurisy, pneumonia, pneumothorax, pulmonary embolus. 10/24 00:05 Data reviewed: vital signs, nurses notes, lab test result(s), EKG, radiologic studies, cp plain films. 00:05 Test interpretation: by ED physician or midlevel provider: ECG, plain radiologic cp studies. Counseling: I had a detailed discussion with the patient and/or guardian regarding: the historical points, exam findings, and any diagnostic results supporting the discharge/admit diagnosis, lab results, radiology results, to return to the emergency department if symptoms worsen or persist or if there are any questions or concerns that arise at home. Response to treatment: the patient's symptoms have markedly improved after treatment, and as a result, I will discharge patient. 10/23 21:56 Order name: Basic Metabolic Panel 10/23 21:56 Order name: CBC with Diff 10/23 21:56 Order name: LFT's 10/23 21:56 Order name: Magnesium 10/23 21:56 Order name: NT PRO-BNP 10/23 21:56 Order name: PT-INR 10/23 21:56 Order name: Troponin (emerg Dept Use Only); Complete Time: 22:57 10/23 21:56 Order name: Basic Metabolic Panel; Complete Time: 22:57 EDMS 10/23 21:56 Order name: CBC with Automated Diff; Complete Time: 23:51 EDMS 10/23 23:51 Interpretation: Normal except: WBC 13.00; EOSINOPHIL % 19.6; EOSA 2.6. 10/23 21:56 Order name: Liver (Hepatic) Function; Complete Time: 22:57 EDMS 10/23 21:56 Order name: Magnesium; Complete Time: 22:57 EDMS 10/23 21:56 Order name: NT PRO-BNP; Complete Time: 22:57 EDMA 10/23 21:56 Order name: XRAY Chest (1 view) 10/23 21:56 Order name: EKG; Complete Time: 21:57 10/23 21:56 Order name: Cardiac monitoring; Complete Time: 22:23 10/23 21:56 Order name: EKG - Nurse/Tech; Complete Time: 22:23 10/23 21:56 Order name: IV Saline Lock; Complete Time: 22:22 10/23 21:56 Order name: Labs collected and sent; Complete Time: 22:23 10/23 21:56 Order name: Protime (+INR); Complete Time: 23:51 EDMS 10/23 22:40 Order name: Manual Differential; Complete Time: 23:51 EDMS 10/23 22:59 Order name: LAB Add On cp 10/23 22:59 Order name: D-Dimer; Complete Time: 23:51 EDMS 10/23 23:10 Order name: COVID-19/FLU A+B; Complete Time: 23:51 EDMS 10/23 21:56 Order name: O2 Per Protocol; Complete Time: 22:23 cp 10/23 21:56 Order name: O2 Sat Monitoring; Complete Time: 22:23 cp EC/23 21:25 Rate is 96 beats/min. Rhythm is regular. UT interval is normal. QRS interval is normal. cp QT interval is normal. T waves are Inverted in leads III, aVR. Interpreted by me. Reviewed by me. Administered Medications: 22:06 Drug: Tylenol 1000 mg Route: PO; ak2 22:06 Drug: NS 0.9% 1000 ml Route: IV; Rate: 1 bolus; Site: left antecubital; ak2 22:06 Drug: Tussionex Pennkinetic ER (chlorpheniramine-hydrocodone) 5 ml Route: PO; ak2 23:56 Drug: TORadol - (ketorolac) 15 mg Route: IVP; Site: left antecubital; ak2 Disposition: 10/24 04:33 Co-signature as Attending Physician, Benson Andujar MD. pkl Disposition: 10/24/20 00:05 Discharged to Home. Impression: Acute bronchitis. - Condition is Stable. - Discharge Instructions: Acute Bronchitis, Adult. - Prescriptions for Tessalon Perles 100 mg Oral Capsule - take 2 capsule by ORAL route every 8 hours As needed; 30 capsule. Zithromax Z- Percy 250 mg Oral Tablet - take 1 tablet by ORAL route as directed for 5 days Day 1 - take two (2) tablets one time. Day 2, 3, 4 , 5 take one (1) tablet once daily.; 6 tablet. Albuterol Sulfate 90 mcg/actuation - inhale 1-2 puff by INHALATION route every 4-6 hours; 1 Inhaler. - Work release form, Medication Reconciliation Form, Thank You Letter, Antibiotic Education, Prescription Opioid Use form. - Follow up: Private Physician; When: 2 - 3 days; Reason: Worsening of condition. - Problem is new. - Symptoms have improved. Signatures: Dispatcher [employer] Benson Andujar MD MD pkl Ballard, Brenda, RN RN bb Nilson Wu PA PA cp Garcia, Victoria, RN RN vg1 Christiano Wolf ak2 Corrections: (The following items were deleted from the chart) 10/23 22:21 21:57 Influenza Screen (A \\T\\ B)+BA.LAB.BRZ ordered. EDMS EDMS 22:21 21:57 CORONAVIRUS+MR.LAB.BRZ ordered. EDMS EDMS 23:05 23:00 D-DIMER+COAG.LAB.BRZ ordered. EDMS EDMS 23:51 22:58 Normal except: WBC 13.00. cp cp 10/24 00:20 00:05 10/24/2020 00:05 Discharged to Home. Impression: Acute bronchitis. Condition is ak2 Stable. Forms are Medication Reconciliation Form, Thank You Letter, Antibiotic Education, Prescription Opioid Use. Follow up: Private Physician; When: 2 - 3 days; Reason: Worsening of condition. Problem is new. Symptoms have improved. cp 00:51 00:20 10/24/2020 00:05 Discharged to Home. Impression: Acute bronchitis. Condition is bb Stable. Discharge Instructions: Acute Bronchitis, Adult. Prescriptions for Tessalon Perles 100 mg Oral Capsule - take 2 capsule by ORAL route every 8 hours As needed; 30 capsule, Zithromax Z-Percy 250 mg Oral Tablet - take 1 tablet by ORAL route as directed for 5 days Day 1 - take two (2) tablets one time. Day 2, 3, 4 , 5 take one (1) tablet once daily.; 6 tablet, Albuterol Sulfate 90 mcg/actuation - inhale 1-2 puff by INHALATION route every 4-6 hours; 1 Inhaler. and Forms are Medication Reconciliation Form, Thank You Letter, Antibiotic Education, Prescription Opioid Use. Follow up: Private Physician; When: 2 - 3 days; Reason: Worsening of condition. Problem is new. Symptoms have improved. ak2
[2020-10-24] MEDS ORDERED: KETOROLAC 30 MG/ML INJ ONE (00:14)
[2020-10-24 00:43] VITALS: TEMP 98.5
[2020-10-24 00:45] VITALS: BP 129/90; O2SAT 100
--- NOTE | 2020-10-24 09:09 | RAD REPORT ---
EXAM DESCRIPTION: RAD - Chest Single View - 10/23/2020 10:43 pm CLINICAL HISTORY: Cough;Chest pain COMPARISON: Portable June 2020 TECHNIQUE: AP portable chest image was obtained 10/23/2020 10:43 pm . FINDINGS: Lung volumes are low accentuating the baseline interstitial pattern. Minimal degrees of in terstitial edema or infiltrate are potentially masked. There are no peripheral masses or consolidatio n. Trachea is midline. Heart size is magnified by the shallow inspiration. No abnormal vascular engorge ment identified. No measurable pleural effusion and no pneumothorax. No acute bony abnormality seen. No acute aortic findings suspected. IMPRESSION: No acute cardiopulmonary process. Lung markings and heart size accentuated by shallow inspiration. Minimal interstitial edema or infilt rate potentially masked.
== END 2020-10-24 00:51 | disposition home or self-care (01) ==
LOC: ER 21:00
DX: J20.9 Acute bronchitis, unspecified (principal); Z20.822 Contact with and (suspected) exposure to COVID-19; F17.210 Nicotine dependence, cigarettes, uncomplicated
CPT/HCPCS: 0240U; 36415; 71045; 80048; 80076; 83735; 83880; 84484; 85025; 85379; 85610; 93005; 96374; 99285; J7030

== ENCOUNTER 2020-10-25 22:32 | Emergency (ER) | payer SELFPAY ==
--- OUTSIDE RECORDS SUMMARY | 2020-10-25 22:35 | XMS REPORT | Continuity of Care Document ---
:1990 Author Organization [facility] t Address [address] [place] [address] Care Team Providers Name Role Phone DR [...] ID 2020-05-28 2020-05-28 Emergency E TIM JEFFERSON [facility] [id number] [facility] 05:09:00 08:44:00 [facility] 2020-01-25 2020-01-25 Emergency E [facility] 7513 [facility] 00:08:00 00:08:00 2019-07-18 2019-07-18 Emergency E [facility] 7512 [facility] 14:06:00 14:06:00 2019-07-08 2019-07-08 Emergency E [facility] 7511 [facility] 17:22:00 17:22:00 2019-07-08 2019-07-08 Outpatient [facility] 0041 [facility] 17:00:00 17:00:00 2017-07-03 2017-07-03 Out[facility] [id number] [address] [place] [address] 00:00:00 00:00:00 [facility] 2017-06-28 2017-06-29 Outpatient [facility] [id number] [address] [place] [address] 00:00:00 00:00:00 [facility] 2017-06-23 2017-06-23 Emergency E GERRI DYE [facility] [id number] 11:52:00 13:51:00 [facility] 2017-06-21 2017-06-22 Emergency E JESSY [facility] [id number] [address] 23:24:00 02:15:00 [facility] 2016-11-09 2016-11-09 Emergency E TESHA JIMÉNEZ [facility] 1000 [id number] [address] 12:10:00 13:05:00 [facility] Results Test Description Test Time Test Comments [...] the FDA and the [employer] (CAP) are more stringent than those required for this test. Therefore, the result should be interpreted with caution and close attention to other clinical and epidemiological data [id number] 07:38:00 Test Item Value Reference Range Interpretation [...] code = LEUK) NEGATIVE NEGATIVE BRAIN NATRIURETIC [id number] 06:26:00 Test Item Value Reference Range Interpretation Comments proBNP (test code = PBNP) 20 pg/mL 0-125 AMYLASE AND [id number] 06:24:00 Test Item Value Reference Range Interpretation Comments AMYLASE (test code = 10A) 55 U/L 28-100 LIPASE (test code = 60A) 221 IU/L 73-393 [id number] 06:24:00 Test Item Value Reference Range Interpretation Comments CPK (test code = 32A) 100 IU/L 39-308 COMPREHENSIVE METABOLIC [id number] 06:24:00 Test Item Value Reference Range Interpretation [...] code = 31A) 59 IU/L <=78 LDH-LACTIC [id number] 06:23:00 Test Item Value Reference Range Interpretation Comments LDH (test code = 33A) 195 IU/L 100-190 H [id number] 06:23:00 Test Item Value Reference Range Interpretation Comments FERRITIN (test code = A19) 122.3 ng/mL 26.0-388.0 TROPONIN [id number] 06:21:00 Test Item Value Reference Range Interpretation Comments TROPONIN I (test code = A84) <0.015 ng/mL 0.000-0.045 [id number] 06:18:00 Test Item Value Reference Range Interpretation Comments MAGNESIUM (test code = 48A) 2.2 mg/dL 1.8-2.4 C-REACTIVE PROTEIN [id number] 06:17:00 Test Item Value Reference Range Interpretation Comments CRP QUANT (test code <2.9 mg/L 0.0-2.9 = CRPQ) Method Change (test Please note the code = METHOD) change in Method and the reference range DIRECT INFLUENZA A AND B [id number] 06:16:00 Test Item Value Reference Range Interpretation Comments Direct Exam (test PRESUMPTIVE NEGATIVE FOR code = DE1) THE PRESENCE OF INFLUENZA ANTIGEN PRO TIME AND [id number] 06:12:00 Test Item Value Reference Range Interpretation [...] or LMW Heparin. Order Code is ANTI-XA [id number] 06:12:00 Test Item Value Reference Range Interpretation Comments D-DIMER (test code = <200 ng/mL D-DU 0-234 DDI) D-DIMER COMMENT (test *Level to rule out code = DDCOM) DVT or PE: <235 ng/mL D-DU* Venous Blood [id number] 06:03:00 Test Item Value Reference Range Interpretation Comments VpH (test code = 7.383 7.300-7.400 VPHRT) VpCO2 (test code = 46.0 mmHg 40.0-50.0 EILZ8EW) VpO2 (test code = 55.5 mmHg 30.0-40.0 H VPO2RT) HCO3? (test code = 26.8 mmol/L 22.0-26.0 H HCO3) RADHA (test code = RADHA) 1.7 mmol/L -3.0-3.0 tHb (test code = 15.1 g/dL 14.0-18.0 THBRT) vsO2 (test code = 90.7 % 55.0-75.0 H VSO2RT) FO2Hb (test code = 86.2 % VG1JCOFP) FCOHb (test code = 3.5 % FCOHBRTV) FMetHb (test code = 1.4 % FMETHBRTV) ABGTEMP (test code = * Temp Corrected Values* ABGTEMP) ABGTEMP (test code = 37.0 ?C ABGTEMP.) pH (T) (test code = 7.383 7.300-7.400 PHTEMPV) pCO2 (T) (test code = 46.0 mmHg 40.0-50.0 GUA2JPROQ) pO2 (T) (test code = 55.5 mmHg 30.0-40.0 H OQ3ZSBSE) Device (test code = ROOM AIR DEVICE) [...] 09D) 8.8 mg/dL 8.3-9.5 CBC (INCLUDES AUTOMATED DIFFERENTIAL)*[id number] 13:04:00 Test Item Value Reference Range Interpretation [...] 2 VIEW *WW*2017-06-23 12:51:56Exam: Chest 2 viewsLocation: O8Lyrqpjs: cough, recent pneumonia.Comparison: 10/23/2016.Findings:The lungs are clear. Central peribronchial cuffing is present. No infiltrate oreffusion is seen. The pulmonary vasculature is normal. The heart size isnormal. The mediastinal silhouette is unremarkable. Thebony thorax is intact.Impression:Bronchitis .CT STONE PROTOCOL [id number] 01:06:08AFTER HOURS SERVICE ON: 06/22/2017 1:03 AMCT Scan of the Abdomen and Pelvis Without ContrastLocation Code R56Sebbtxx: L flank painTechnique: Axial and reconstructed coronal [...] Noinflammatory changes seen.U/S TESTICULAR 2017-06-22 00:58:11U/S TESTICULARLocation: G5Sfilx hours services provided 06/22/2017 12:56 AMIndication: L [...] with no acute testicular or epididymalabnormality.AMYLASE AND [id number] 00:33:00 Test Item Value Reference Range Interpretation Comments AMYLASE (test code = 10A) 65 U/L 28-100 LIPASE (test code = 60A) 140 IU/L 73-393 COMPREHENSIVE METABOLIC [id number] 00:33:00 Test Item Value Reference Range Interpretation [...] (test code = 31A) 29 IU/L <=78 [id number] 00:31:00 Test Item Value Reference Range Interpretation [...] 60A) 100 IU/L 73-393 CBC (INCLUDES AUTOMATED DIFFERENTIAL)*[id number] 14:19:00 Test Item Value Reference Range Interpretation [...] 2016-10-23 13:51:45Portable AP chest, 1 viewLocation Code: O9EEPBUANH HISTORY: Abdominal painCOMPARISON: 07/14/2013COMMEN T: The lungs are clear and well inflated. The costophrenic angles are sharp. Thecardiomediastinal silhouette is unremarkable. The bones are intact.IMPRESSION: Stable chest with no acute abnormality.CT ABDOMEN AND PELVIS WITHOUT CONTRAST 2016-10-23 13:50:29CT abdomen and pelvis without contrastLocation Code: Q0JMYDGLFR HISTORY: Abdominal painCOMPARISON: 03/2017Technique: Helical CT of [...] no acute abnormality.CT ABDOMEN AND PELVIS WITH [id number] 21:28:44CT abdomen and pelvis with contrastLocation Code: Q3TYGEZBNR HISTORY: Abdominal painCOMPARISON: 07/18/13, 07/13/13Technique: Helical CT [...] No acute intra-abdominal or pelvic abnormality.DRUGS OF [id number] 21:03:00 Test Item Value Reference Range Interpretation [...] 200 ng/mL Opiates 2000 ng/mL URINALYSIS WITH [id number] 20:50:00 Test Item Value Reference Range Interpretation [...] code = USPERM) /HPF NONE AMYLASE AND [id number] 20:44:00 Test Item Value Reference Range Interpretation Comments AMYLASE (test code = 10A) 46 U/L 28-100 LIPASE (test code = 60A) 128 IU/L 73-393 COMPREHENSIVE METABOLIC [id number] 20:44:00 Test Item Value Reference Range Interpretation [...]
--- NOTE | 2020-10-25 23:15 | ER ---
Nurse's Notes [facility] Name: Chico Leon Age: 30 yrs Sex: Male : 1990 Arrival Date: 10/25/2020 Time: 22:37 Bed 5 Private MD: Diagnosis: Acute bronchitis Presentation: 10/25 22:41 Chief complaint: Patient states: worsening cough and congestion x1 week. seen here ak2 Saturday for same sx. Coronavirus screen: Client denies travel out of the [place] in the last 14 days. Ebola Screen: Patient negative for fever greater than or equal to 101.5 degrees Fahrenheit, and additional compatible Ebola Virus Disease symptoms Patient denies exposure to infectious person. Patient denies travel to an Ebola-affected area in the 21 days before illness onset. No symptoms or risks identified at this time. Initial Sepsis Screen: Does the patient meet any 2 criteria? No. Patient's initial sepsis screen is negative. Does the patient have a suspected source of infection? No. Patient's initial sepsis screen is negative. Risk Assessment: Do you want to hurt yourself or someone else? Patient reports no desire to harm self or others. Onset of symptoms was October 18, 2020. 22:41 Method Of Arrival: Ambulatory ak2 22:41 Acuity: RADHA 4 ak2 Triage Assessment: 22:43 Headache History: Denies prior headaches. General: Appears in no apparent distress. ak2 Behavior is calm, cooperative. Pain: Complains of pain in face Pain currently is 6 out of 10 on a pain scale. Pain began 2-3 days ago. Also complains of. Historical: - Allergies: 22:43 No Known Allergies; ak2 - Immunization history:: Adult Immunizations up to date. - Social history:: Smoking status: unknown. - Family history:: not pertinent. Screenin:18 Abuse screen: Denies threats or abuse. Denies injuries from another. Nutritional jm8 screening: No deficits noted. Tuberculosis screening: No symptoms or risk factors identified. Fall Risk None identified. Assessment: 23:17 General: Appears in no apparent distress. comfortable, Behavior is calm, cooperative, jm8 appropriate for age. Pain: Complains of pain in head Pain currently is 10 out of 10 on a pain scale. Quality of pain is described as throbbing, Pain began 4 days ago. Neuro: No deficits noted. Level of Consciousness is awake, alert, obeys commands, Oriented to person, place, time. Cardiovascular: No deficits noted. Respiratory: Reports cough that is non-productive, Airway is patent Trachea midline Respiratory effort is even, unlabored, Respiratory pattern is regular, symmetrical. GI: No deficits noted. No signs and/or symptoms were reported involving the gastrointestinal system. : No deficits noted. No signs and/or symptoms were reported regarding the genitourinary system. EENT: No deficits noted. No signs and/or symptoms were reported regarding the EENT system. Derm: No deficits noted. No signs and/or symptoms reported regarding the dermatologic system. Skin is intact, is healthy with good turgor. Musculoskeletal: No deficits noted. No signs and/or symptoms reported regarding the musculoskeletal system. Vital Signs: 22:41 BP 149 / 102; Pulse 95; Resp 20; Temp 98.8; Pulse Ox 99% ; Weight 77.11 kg; Height 5 ak2 ft. 3 in. (160.02 cm); 23:24 BP 135 / 88; Pulse 76; Resp 16; Pulse Ox 97% on R/A; jm8 22:41 Body Mass Index 30.11 (77.11 kg, 160.02 cm) ak2 ED Course: 22:37 Patient arrived in ED. ag3 22:42 Triage completed. ak2 22:45 Lala Fernandez MD is Attending Physician. ma2 23:19 Patient has correct armband on for positive identification. Call light in reach. Side jm8 rails up X2. Adult w/ patient. 23:19 Arm band placed on right wrist. jm8 23:19 No provider procedures requiring assistance completed. Patient did not have IV access jm8 during this emergency room visit. Administered Medications: 23:16 Drug: TORadol (ketorolac) 60 mg Route: IM; Site: left ventrogluteal; jm8 23:19 Follow up: Response: No adverse reaction ad5 23:16 Drug: predniSONE 40 mg Route: PO; jm8 23:19 Follow up: Response: No adverse reaction ad5 Outcome: 23:15 Discharge ordered by . ma2 23:24 Discharged to home ambulatory, with family. jm8 23:24 Condition: good 23:24 Discharge instructions given to patient, family, Instructed on discharge instructions, follow up and referral plans. medication usage, Demonstrated understanding of instructions, follow-up care, medications, Prescriptions given X 2. 23:25 Patient left the ED. jm8 Signatures: Lala Fernandez MD MD nv2 Anne Quinn Joseph, RN RN jm8 Sharad Almanza Anthony ak2
--- NOTE | 2020-10-25 23:16 | EDPHYS ---
Physician Documentation [facility] Name: Chico Leon Age: 30 yrs Sex: Male : 1990 Arrival Date: 10/25/2020 Time: 22:37 Bed 5 Private MD: ED Physician Lala Fernandez HPI: 10/25 23:10 This 30 yrs old Male presents to ER via Ambulatory with complaints of Headache.ma2 23:10 The patient complains of pain to the right eye, nose and left eye. Onset: The ma2 symptoms/episode began/occurred gradually, 2 day(s) ago. Severity of symptoms: At its worst the pain was moderate, in the emergency department the pain is unchanged. Headache History: The patient has had previous headaches and this one is similar to previous episodes. The patient has experienced similar episodes in the past. healthy 30 yrs old has URI seen 2 days ago in our er and given z-pack, he took it for 2 days.. he is here for persistent symptoms for 2 days.. workup last visit was unremarkable including cx, he has runny nose and sinusitis. he states that he has not worsen however he want a medicine to treat him as he has a new job and can not miss work.. i explained that most bronchitis are viral and we offer supportive treatment and usually symptoms can last up to 5 days.. . Historical: - Allergies: 22:43 No Known Allergies; ak2 - Immunization history:: Adult Immunizations up to date. - Social history:: Smoking status: unknown. - Family history:: not pertinent. ROS: 23:10 Constitutional: Negative for fever, chills, and weight loss. ma2 23:10 All other systems are negative. Exam: 23:10 Constitutional: This is a well developed, well nourished patient who is awake, alert, ma2 and in no acute distress. Head/Face: Normocephalic, atraumatic. Eyes: Pupils equal round and reactive to light, extra-ocular motions intact. Lids and lashes normal. Conjunctiva and sclera are non-icteric and not injected. Cornea within normal limits. Periorbital areas with no swelling, redness, or edema. ENT: Nares patent. clear nasal discharge, no septal abnormalities noted. Tympanic membranes are normal and external auditory canals are clear. Oropharynx with no redness, swelling, or masses, exudates, or evidence of obstruction, uvula midline. Mucous membranes moist. Neck: Trachea midline, no thyromegaly or masses palpated, and no cervical lymphadenopathy. Supple, full range of motion without nuchal rigidity, or vertebral point tenderness. No Meningismus. Chest/axilla: Normal chest wall appearance and motion. Nontender with no deformity. No lesions are appreciated. Cardiovascular: Regular rate and rhythm with a normal S1 and S2. No gallops, murmurs, or rubs. Normal PMI, no JVD. No pulse deficits. Respiratory: Lungs have equal breath sounds bilaterally, clear to auscultation and percussion. No rales, rhonchi or wheezes noted. No increased work of breathing, no retractions or nasal flaring. Abdomen/GI: Soft, non-tender, with normal bowel sounds. No distension or tympany. No guarding or rebound. No evidence of tenderness throughout. MS/ Extremity: Pulses equal, no cyanosis. Neurovascular intact. Full, normal range of motion. Neuro: Awake and alert, GCS 15, oriented to person, place, time, and situation. Cranial nerves II-XII grossly intact. Motor strength 5/5 in all extremities. Sensory grossly intact. Cerebellar exam normal. Normal gait. Vital Signs: 22:41 BP 149 / 102; Pulse 95; Resp 20; Temp 98.8; Pulse Ox 99% ; Weight 77.11 kg; Height 5 ak2 ft. 3 in. (160.02 cm); 23:24 BP 135 / 88; Pulse 76; Resp 16; Pulse Ox 97% on R/A; jm8 22:41 Body Mass Index 30.11 (77.11 kg, 160.02 cm) ak2 MDM: 22:55 Patient medically screened. ma2 23:10 Differential diagnosis: tension headache, acute bronchitis, uri. Data reviewed: vital ma2 signs, nurses notes. Counseling: I had a detailed discussion with the patient and/or guardian regarding: the historical points, exam findings, and any diagnostic results supporting the discharge/admit diagnosis, the presence of at least one elevated blood pressure reading (>120/80) during this emergency department visit, the need for outpatient follow up. Response to treatment: the patient's symptoms have markedly improved after treatment. Administered Medications: 23:16 Drug: TORadol (ketorolac) 60 mg Route: IM; Site: left ventrogluteal; jm8 23:19 Follow up: Response: No adverse reaction ad5 23:16 Drug: predniSONE 40 mg Route: PO; jm8 23:19 Follow up: Response: No adverse reaction ad5 Disposition: 10/25/20 23:15 Discharged to Home. Impression: Acute bronchitis. - Condition is Stable. - Discharge Instructions: Acute Bronchitis, Adult. - Prescriptions for Diclofenac Sodium 75 mg Oral Tablet Sustained Release - take 1 tablet by ORAL route 2 times per day; 30 tablet. Medrol (Percy) 4 mg Oral Tablets, Dose Pack - take 1 tablet by ORAL route as directed - follow package instructions; 1 packet. - Medication Reconciliation Form, Thank You Letter, Antibiotic Education, Prescription Opioid Use form. - Follow up: Private Physician; When: Tomorrow; Reason: If symptoms return, Continuance of care. Signatures: Lala Fernandez MD MD ma2 Manohar Sandhu RN RN jm8 Christiano Wolf me2 Sharad Almanza ad5 Corrections: (The following items were deleted from the chart) 23:25 23:15 10/25/2020 23:15 Discharged to Home. Impression: Acute bronchitis. Condition is jm8 Stable. Prescriptions for Diclofenac Sodium 75 mg Oral Tablet Sustained Release - take 1 tablet by ORAL route 2 times per day; 30 tablet, Medrol (Percy) 4 mg Oral Tablets, Dose Pack - take 1 tablet by ORAL route as directed - follow package instructions; 1 packet. and Forms are Medication Reconciliation Form, Thank You Letter, Antibiotic Education, Prescription Opioid Use. Follow up: Private Physician; When: Tomorrow; Reason: If symptoms return, Continuance of care. maMildred
[2020-10-25] MEDS ORDERED: predniSONE 20 MG TAB ONE (23:30)
[2020-10-25] MEDS ORDERED: KETOROLAC 30 MG/ML INJ ONE (23:30)
== END 2020-10-25 23:25 | disposition home or self-care (01) ==
LOC: ER 22:32
DX: J20.9 Acute bronchitis, unspecified (principal)
CPT/HCPCS: 96372; 99283; J7512

== ENCOUNTER 2020-12-01 19:25 | Emergency (ER) | payer SELFPAY ==
--- OUTSIDE RECORDS SUMMARY | 2020-12-01 19:30 | XMS REPORT | Continuity of Care Document ---
:1990 Author Organization Formerly [facility] t Address [address] [place] [address] Care Team Providers Name Role Phone DR RUBIA DUMONT Attending Clinician Unavailable MARNIE, Attending Clinician Unavailable DR JESSY Attending Clinician Unavailable DR Kendell JIMÉNEZ Attending [...] Department ID 2020-05-28 2020-05-28 Emergency E [facility] [id number] [facility] 05:09:00 08:44:00 [facility] 2020-01-25 2020-01-25 Emergency E [facility] 7513 [facility] 00:08:00 00:08:00 2019-07-18 2019-07-18 Emergency E [facility] 7512 [facility] 14:06:00 14:06:00 2019-07-08 2019-07-08 Emergency E [facility] 7511 [facility] 17:22:00 17:22:00 2019-07-08 2019-07-08 Outpatient [facility] [id number] [facility] 17:00:00 17:00:00 2017-07-03 2017-07-03 [facility] [id number] [address] [place] [address] 00:00:00 00:00:00 [facility] 2017-06-28 2017-06-29 [facility] [id number] [address] [place] [address] 00:00:00 00:00:00 [facility] 2017-06-23 2017-06-23 Emergency E GERRI DYE [facility] [place] [place] [facility] [id number] [address] 11:52:00 13:51:00 [facility] 2017-06-21 2017-06-22 Emergency E JESSY [facility] [place] [place] [facility] [id number] [address] 23:24:00 02:15:00 [facility] 2016-11-09 2016-11-09 Emergency E TESHA JIMÉNEZ [facility] 1000 [id number] [address] 12:10:00 13:05:00 [facility] Results Test Description Test Time Test [...] the FDA and the [employer] (CAP) are more stringent than those required for this test. Therefore, the result should be interpreted with caution and close attention to other clinical and epidemiological data [id number] 07:38:00 Test Item Value Reference Range Interpretation [...] code = LEUK) NEGATIVE NEGATIVE BRAIN NATRIURETIC [id number] 06:26:00 Test Item Value Reference Range Interpretation Comments proBNP (test code = PBNP) 20 pg/mL 0-125 AMYLASE AND [id number] 06:24:00 Test Item Value Reference Range Interpretation Comments AMYLASE (test code = 10A) 55 U/L 28-100 LIPASE (test code = 60A) 221 IU/L 73-393 [id number] 06:24:00 Test Item Value Reference Range Interpretation Comments CPK (test code = 32A) 100 IU/L 39-308 COMPREHENSIVE METABOLIC [id number] 06:24:00 Test Item Value Reference Range Interpretation [...] code = 31A) 59 IU/L <=78 LDH-LACTIC [id number] 06:23:00 Test Item Value Reference Range Interpretation Comments LDH (test code = 33A) 195 IU/L 100-190 H [id number] 06:23:00 Test Item Value Reference Range Interpretation Comments FERRITIN (test code = A19) 122.3 ng/mL 26.0-388.0 TROPONIN [id number] 06:21:00 Test Item Value Reference Range Interpretation Comments TROPONIN I (test code = A84) <0.015 ng/mL 0.000-0.045 [id number] 06:18:00 Test Item Value Reference Range Interpretation Comments MAGNESIUM (test code = 48A) 2.2 mg/dL 1.8-2.4 C-REACTIVE PROTEIN [id number] 06:17:00 Test Item Value Reference Range Interpretation Comments CRP QUANT (test code <2.9 mg/L 0.0-2.9 = CRPQ) Method Change (test Please note the code = METHOD) change in Method and the reference range DIRECT INFLUENZA A AND B [id number] 06:16:00 Test Item Value Reference Range Interpretation Comments Direct Exam (test PRESUMPTIVE NEGATIVE FOR code = DE1) THE PRESENCE OF INFLUENZA ANTIGEN PRO TIME AND [id number] 06:12:00 Test Item Value Reference Range Interpretation [...] or LMW Heparin. Order Code is ANTI-XA [id number] 06:12:00 Test Item Value Reference Range Interpretation Comments D-DIMER (test code = <200 ng/mL D-DU 0-234 DDI) D-DIMER COMMENT (test *Level to rule out code = DDCOM) DVT or PE: <235 ng/mL D-DU* Venous Blood [id number] 06:03:00 Test Item Value Reference Range Interpretation Comments VpH (test code = 7.383 7.300-7.400 VPHRT) VpCO2 (test code = 46.0 mmHg 40.0-50.0 LEAW2EG) VpO2 (test code = 55.5 mmHg 30.0-40.0 H VPO2RT) HCO3? (test code = 26.8 mmol/L 22.0-26.0 H HCO3) RADHA (test code = RADHA) 1.7 mmol/L -3.0-3.0 tHb (test code = 15.1 g/dL 14.0-18.0 THBRT) vsO2 (test code = 90.7 % 55.0-75.0 H VSO2RT) FO2Hb (test code = 86.2 % KP7HWSMU) FCOHb (test code = 3.5 % FCOHBRTV) FMetHb (test code = 1.4 % FMETHBRTV) ABGTEMP (test code = * Temp Corrected Values* ABGTEMP) ABGTEMP (test code = 37.0 ?C ABGTEMP.) pH (T) (test code = 7.383 7.300-7.400 PHTEMPV) pCO2 (T) (test code = 46.0 mmHg 40.0-50.0 EFH5RJLFH) pO2 (T) (test code = 55.5 mmHg 30.0-40.0 H AT5SODIY) Device (test code = ROOM AIR DEVICE) [...] 09D) 8.8 mg/dL 8.3-9.5 CBC (INCLUDES AUTOMATED DIFFERENTIAL)*[id number] 13:04:00 Test Item Value Reference Range Interpretation [...] 2 VIEW *WW*2017-06-23 12:51:56Exam: Chest 2 viewsLocation: P5Bygndaz: cough, recent pneumonia.Comparison: 10/23/2016.Findings:The lungs are clear. Central peribronchial cuffing is present. No infiltrate oreffusion is seen. The pulmonary vasculature is normal. The heart size isnormal. The mediastinal silhouette is unremarkable. Thebony thorax is intact.Impression:Bronchitis .CT STONE PROTOCOL [id number] 01:06:08AFTER HOURS SERVICE ON: 06/22/2017 1:03 AMCT Scan of the Abdomen and Pelvis Without ContrastLocation Code E71Whiaamm: L flank painTechnique: Axial and reconstructed coronal [...] Noinflammatory changes seen.U/S TESTICULAR 2017-06-22 00:58:11U/S TESTICULARLocation: T9Tezqu hours services provided 06/22/2017 12:56 AMIndication: L [...] with no acute testicular or epididymalabnormality.AMYLASE AND [id number] 00:33:00 Test Item Value Reference Range Interpretation Comments AMYLASE (test code = 10A) 65 U/L 28-100 LIPASE (test code = 60A) 140 IU/L 73-393 COMPREHENSIVE METABOLIC [id number] 00:33:00 Test Item Value Reference Range Interpretation [...] (test code = 31A) 29 IU/L <=78 [id number] 00:31:00 Test Item Value Reference Range Interpretation [...] 60A) 100 IU/L 73-393 CBC (INCLUDES AUTOMATED DIFFERENTIAL)*[id number] 14:19:00 Test Item Value Reference Range Interpretation [...] 2016-10-23 13:51:45Portable AP chest, 1 viewLocation Code: N1EPQUCSUL HISTORY: Abdominal painCOMPARISON: 07/14/2013COMMEN T: The lungs are clear and well inflated. The costophrenic angles are sharp. Thecardiomediastinal silhouette is unremarkable. The bones are intact.IMPRESSION: Stable chest with no acute abnormality.CT ABDOMEN AND PELVIS WITHOUT CONTRAST 2016-10-23 13:50:29CT abdomen and pelvis without contrastLocation Code: Q4ZICZJTER HISTORY: Abdominal painCOMPARISON: 03/2017Technique: Helical CT of [...] no acute abnormality.CT ABDOMEN AND PELVIS WITH [id number] 21:28:44CT abdomen and pelvis with contrastLocation Code: K7GHUYPYDH HISTORY: Abdominal painCOMPARISON: 07/18/13, 07/13/13Technique: Helical CT [...] No acute intra-abdominal or pelvic abnormality.DRUGS OF [id number] 21:03:00 Test Item Value Reference Range Interpretation [...] 200 ng/mL Opiates 2000 ng/mL URINALYSIS WITH [id number] 20:50:00 Test Item Value Reference Range Interpretation [...] code = USPERM) /HPF NONE AMYLASE AND [id number] 20:44:00 Test Item Value Reference Range Interpretation Comments AMYLASE (test code = 10A) 46 U/L 28-100 LIPASE (test code = 60A) 128 IU/L 73-393 COMPREHENSIVE METABOLIC [id number] 20:44:00 Test Item Value Reference Range Interpretation [...]
[2020-12-01] MEDS ORDERED: dexAMETHasone 10 MG/ML VIAL ONE (21:15)
[2020-12-01] MEDS ORDERED: HYDROCODONE/CHLORPHEN 5 ML/OSYR ONE (21:15)
--- NOTE | 2020-12-01 22:02 | RAD REPORT ---
EXAM DESCRIPTION: RAD - Chest Single View - 12/01/2020 9:18 pm CLINICAL HISTORY: COUGH COMPARISON: Portable October 23 TECHNIQUE: AP portable chest image was obtained 12/01/2020 9:18 pm . FINDINGS: Lungs are clear. Heart and vasculature are normal. No measurable pleural effusion and no p neumothorax. No acute bony abnormality seen. No acute aortic findings suspected. IMPRESSION: No acute cardiopulmonary process. No significant change from comparison study.
[2020-12-01] MEDS ORDERED: KETOROLAC 30 MG/ML INJ ONE (22:37)
--- NOTE | 2020-12-01 23:02 | EDPHYS ---
Physician Documentation [facility] Name: Chico Leon Age: 30 yrs Sex: Male : 1990 Arrival Date: 12/01/2020 Time: 19:27 Bed 15 Private MD: ED Physician Ritesh Garcia HPI: 12/01 22:24 This 30 yrs old Male presents to ER via Ambulatory with complaints of Chest jr8 Pain, Difficulty Swallowing - choking feeling. 22:24 The patient or guardian reports cough, that is intermittent, described as moderate, jr8 with no sputum. Onset: The symptoms/episode began/occurred acutely, today. Severity of symptoms: At their worst the symptoms were moderate, in the emergency department the symptoms are unchanged. Modifying factors: The symptoms are alleviated by nothing, the symptoms are aggravated by nothing. Associated signs and symptoms: Pertinent positives: rhinorrhea, sore throat, loss of voice. The patient has not experienced similar symptoms in the past. The patient has not recently seen a physician. Historical: - Allergies: 20:09 No Known Allergies; bb - Home Meds: 20:09 paroxetine HCl 20 mg Oral tab 1 tab once daily [Active]; bb - PMHx: 20:09 Anxiety; Bipolar disorder; Depression; Pancreatitis; PTSD; Schizophrenia; Borderline; bb Seizures; - Immunization history:: Adult Immunizations. - Social history:: Smoking status: Patient reports the use of cigarette tobacco products, smokes one pack cigarettes per day. ROS: 22:24 Eyes: Negative for injury, pain, redness, and discharge, Neck: Negative for injury, jr8 pain, and swelling, Abdomen/GI: Negative for abdominal pain, nausea, vomiting, diarrhea, and constipation, Back: Negative for injury and pain, MS/Extremity: Negative for injury and deformity, Skin: Negative for injury, rash, and discoloration. 22:24 Constitutional: Positive for body aches, fever. 22:24 ENT: Positive for rhinorrhea, sinus congestion, sore throat. 22:24 Respiratory: Positive for cough, Negative for shortness of breath, sputum production, wheezing. 22:24 Neuro: Positive for headache. Exam: 22:24 Constitutional: This is a well developed, well nourished patient who is awake, alert, jr8 and in no acute distress. Eyes: Pupils equal round and reactive to light, extra-ocular motions intact. Lids and lashes normal. Conjunctiva and sclera are non-icteric and not injected. Cornea within normal limits. Periorbital areas with no swelling, redness, or edema. ENT: Nares patent. No nasal discharge, no septal abnormalities noted. Tympanic membranes are normal and external auditory canals are clear. Oropharynx with no redness, swelling, or masses, exudates, or evidence of obstruction, uvula midline. Mucous membranes moist. Neck: Trachea midline, no thyromegaly or masses palpated, and no cervical lymphadenopathy. Supple, full range of motion without nuchal rigidity, or vertebral point tenderness. No Meningismus. Cardiovascular: Regular rate and rhythm with a normal S1 and S2. No gallops, murmurs, or rubs. Normal PMI, no JVD. No pulse deficits. Respiratory: Lungs have equal breath sounds bilaterally, clear to auscultation and percussion. No rales, rhonchi or wheezes noted. No increased work of breathing, no retractions or nasal flaring. Abdomen/GI: Soft, non-tender, with normal bowel sounds. No distension or tympany. No guarding or rebound. No evidence of tenderness throughout. Back: No spinal tenderness. No costovertebral tenderness. Full range of motion. Skin: Warm, dry with normal turgor. Normal color with no rashes, no lesions, and no evidence of cellulitis. MS/ Extremity: Pulses equal, no cyanosis. Neurovascular intact. Full, normal range of motion. Neuro: Awake and alert, GCS 15, oriented to person, place, time, and situation. Cranial nerves II-XII grossly intact. Motor strength 5/5 in all extremities. Sensory grossly intact. Cerebellar exam normal. Normal gait. Vital Signs: 20:07 BP 146 / 89; Pulse 81; Resp 16 S; Temp 98.6(O); Pulse Ox 99% on R/A; Weight 83.91 kg bb (R); Height 5 ft. 3 in. (160.02 cm) (R); Pain 10/10; 23:08 BP 134 / 80; Pulse 82; Resp 16; Pulse Ox 100% on R/A; jm8 20:07 Body Mass Index 32.77 (83.91 kg, 160.02 cm) bb MDM: 20:12 Patient medically screened. jr8 23:00 Data reviewed: vital signs, nurses notes, lab test result(s), radiologic studies, plain jr8 films, and as a result, I will discharge patient. Data interpreted: Pulse oximetry: on room air is 99 %. Interpretation: normal. Counseling: I had a detailed discussion with the patient and/or guardian regarding: the historical points, exam findings, and any diagnostic results supporting the discharge/admit diagnosis, lab results, radiology results, the need for outpatient follow up, a family practitioner, to return to the emergency department if symptoms worsen or persist or if there are any questions or concerns that arise at home. Response to treatment: the patient's symptoms have markedly improved after treatment. 12/01 22:53 Order name: SARS-COV-2 RT PCR; Complete Time: 23:00 EDMS 12/01 20:36 Order name: XRAY Chest (1 view); Complete Time: 22:08 jr8 Administered Medications: 20:57 Drug: Decadron (dexamethasone) 10 mg Route: IM; Site: right deltoid; 8 21:56 Follow up: Response: No adverse reaction 8 20:57 Drug: Tussionex Pennkinetic ER (chlorpheniramine-hydrocodone) Suspension 5 ml Route: PO;jm8 21:56 Follow up: Response: No adverse reaction 8 22:20 Drug: Ketorolac 30 mg Route: IM; Site: left deltoid; jm8 23:03 Follow up: Response: No adverse reaction jm8 Disposition: 23:37 Co-signature as Attending Physician, Ritesh Garcia MD. rn Disposition Summary: 12/01/20 23:01 Discharge Ordered Location: Home [facility] Problem: new jr8 Symptoms: have improved jr8 Condition: Stable jr8 Diagnosis - Acute upper respiratory infection, unspecified jr8 Followup: jr8 - With: Private Physician - When: 1 week - Reason: Recheck today's complaints, Continuance of care, Re-evaluation by your physician Discharge Instructions: - Discharge Summary Sheet jr8 - Upper Respiratory Infection, Adult jr8 Forms: - Medication Reconciliation Form jr8 - Thank You Letter jr8 - Antibiotic Education jr8 - Prescription Opioid Use jr8 Prescriptions: - promethazine-DM 6.25-15 mg/5 mL Oral syrup - take 5 milliliter by ORAL route every 4-6 hours As needed as needed, not to jr8 exceed 30 mL in 24 hours; 100 milliliter; Refills: 0, Product Selection Permitted Signatures: Dispatcher [employer] EDMS Ana Paula Ferrara RN RN Ritesh Sexton MD MD rn Roszak, Josh, PA PA jr8 Manohar Sandhu RN RN jm8 Corrections: (The following items were deleted from the chart) 21:42 20:36 CORONAVIRUS+.BRZ ordered. EDMS EDMS
--- NOTE | 2020-12-01 23:02 | ER ---
Nurse's Notes [facility] Name: Chico Leon Age: 30 yrs Sex: Male : 1990 Arrival Date: 12/01/2020 Time: 19:27 Bed 15 Private MD: Diagnosis: Acute upper respiratory infection, unspecified Presentation: 12/01 20:07 Chief complaint: Patient states: he woke up yesterday feeling bad had sore throat, bb coughing, chest pain, lost his voice about an hour ago. Coronavirus screen: cough unrelated to allergies, sore throat, Client presents with at least one sign or symptom that may indicate coronavirus-19. Standard/surgical mask placed on the client. Ebola Screen: No symptoms or risks identified at this time. Initial Sepsis Screen: Does the patient meet any 2 criteria? No. Patient's initial sepsis screen is negative. Does the patient have a suspected source of infection? No. Patient's initial sepsis screen is negative. Risk Assessment: Do you want to hurt yourself or someone else? Patient reports no desire to harm self or others. Onset of symptoms was November 30, 2020. 20:07 Method Of Arrival: Ambulatory bb 20:07 Acuity: RADHA 3 bb Triage Assessment: 20:09 General: Appears in no apparent distress. uncomfortable, Behavior is calm, cooperative. bb Pain: Complains of pain in throat and right chest Pain currently is 10 out of 10 on a pain scale. EENT: Reports voice hoarse, throat pain. Neuro: Level of Consciousness is awake, alert, obeys commands, Oriented to person, place, time, situation. Cardiovascular: Capillary refill < 3 seconds Patient's skin is warm and dry. Respiratory: Reports cough that is persistent Respiratory effort is even, unlabored, Respiratory pattern is regular. GI: No signs and/or symptoms were reported involving the gastrointestinal system. Derm: Skin is pink, warm \T\ dry. Musculoskeletal: Circulation, motion, and sensation intact. Historical: - Allergies: 20:09 No Known Allergies; bb - Home Meds: 20:09 paroxetine HCl 20 mg Oral tab 1 tab once daily [Active]; bb - PMHx: 20:09 Anxiety; Bipolar disorder; Depression; Pancreatitis; PTSD; Schizophrenia; Borderline; bb Seizures; - Immunization history:: Adult Immunizations. - Social history:: Smoking status: Patient reports the use of cigarette tobacco products, smokes one pack cigarettes per day. Screenin:59 Abuse screen: Denies threats or abuse. Denies injuries from another. Nutritional jm8 screening: No deficits noted. Tuberculosis screening: No symptoms or risk factors identified. Fall Risk None identified. Assessment: 21:00 General: Appears in no apparent distress. uncomfortable, Behavior is calm, cooperative, jm8 appropriate for age. Pain: Complains of pain in chest and neck Pain does not radiate. Pain currently is 10 out of 10 on a pain scale. Quality of pain is described as aching, Pain began 1 hour ago. Neuro: No deficits noted. Neuro: Level of Consciousness is awake, alert, obeys commands, Oriented to person, place, time. Cardiovascular: No deficits noted. Respiratory: No deficits noted. Reports cough that is hacking, sore throat Airway is patent Trachea midline Respiratory effort is even, unlabored, Respiratory pattern is regular, symmetrical. GI: No deficits noted. No signs and/or symptoms were reported involving the gastrointestinal system. : No deficits noted. No signs and/or symptoms were reported regarding the genitourinary system. EENT: No deficits noted. No signs and/or symptoms were reported regarding the EENT system. Derm: No deficits noted. No signs and/or symptoms reported regarding the dermatologic system. Musculoskeletal: No deficits noted. No signs and/or symptoms reported regarding the musculoskeletal system. Vital Signs: 20:07 BP 146 / 89; Pulse 81; Resp 16 S; Temp 98.6(O); Pulse Ox 99% on R/A; Weight 83.91 kg bb (R); Height 5 ft. 3 in. (160.02 cm) (R); Pain 10/10; 23:08 BP 134 / 80; Pulse 82; Resp 16; Pulse Ox 100% on R/A; jm8 20:07 Body Mass Index 32.77 (83.91 kg, 160.02 cm) bb ED Course: 19:27 Patient arrived in ED. as 20:09 Triage completed. bb 20:09 Arm band placed on Patient placed in waiting room, Patient notified of wait time. bb 20:12 Zenon Link PA is PHCP. jr8 20:12 Ritesh Garcia MD is Attending Physician. jr8 20:59 Patient has correct armband on for positive identification. Bed in low position. Call dereje light in reach. Side rails up X2. Pulse ox on. NIBP on. 21:02 Patient maintains SpO2 saturation greater than 95% on room air. jm8 21:18 XRAY Chest (1 view) In Process Unspecified. EDMS 23:08 No provider procedures requiring assistance completed. Patient did not have IV access dereje during this emergency room visit. Administered Medications: 20:57 Drug: Decadron (dexamethasone) 10 mg Route: IM; Site: right deltoid; jm8 21:56 Follow up: Response: No adverse reaction jm8 20:57 Drug: Tussionex Pennkinetic ER (chlorpheniramine-hydrocodone) Suspension 5 ml Route: PO;jm8 21:56 Follow up: Response: No adverse reaction jm8 22:20 Drug: Ketorolac 30 mg Route: IM; Site: left deltoid; jm8 23:03 Follow up: Response: No adverse reaction dereje Outcome: 23:01 Discharge ordered by . carina 23:08 Discharged to home ambulatory, with family. jm8 23:08 Condition: good 23:08 Discharge instructions given to patient, Instructed on discharge instructions, follow up and referral plans. medication usage, Demonstrated understanding of instructions, follow-up care, medications, Prescriptions given X 1. 23:09 Patient left the ED. [email or web address] Signatures: Dispatcher [employer] Cassidy Carmen Brenda, RN RN Zenon Norman PA PA jr8 Malcaba, Joseph, RN RN jmViky Corrections: (The following items were deleted from the chart) 20:59 20:59 General: Appears dereje reyez 21:01 21:00 Pain: dereje reyez
[2020-12-01 23:30] VITALS: TEMP 98.6
[2020-12-01 23:32] VITALS: BP 134/80; O2SAT 100
== END 2020-12-01 23:09 | disposition home or self-care (01) ==
LOC: ER 19:25
DX: J06.9 Acute upper respiratory infection, unspecified (principal); Z20.822 Contact with and (suspected) exposure to COVID-19
CPT/HCPCS: 71045; 96372; 99284; J1100; U0003

== ENCOUNTER 2021-02-03 01:46 | Emergency (ER) | payer SELFPAY ==
--- OUTSIDE RECORDS SUMMARY | 2021-02-03 01:50 | XMS REPORT | Continuity of Care Document ---
:1990 Author Organization [facility] t Address [address] [place] [address] Care Team Providers Name Role Phone Asked, No Pcp Primary Care Physician Unavailable DR Dennise DUMONT Attending Clinician Unavailable Ashu Mcdonough MD Attending Clinician MD ASHU MCDONOUGH Attending Clinician Unavailable DR MARNIE Attending Clinician Unavailable DR JESSY Attending Clinician Unavailable DR Kendell JIMÉNEZ Attending Clinician Unavailable Carlie SMITH Attending Clinician Unavailable DR Dennise DUMONT Admitting Clinician Unavailable MD ASHU MCDONOUGH Admitting Clinician Unavailable DR MARNIE Admitting Clinician Unavailable DR JESSY Admitting Clinician Unavailable DR Kendell JIMÉNEZ Admitting Clinician Unavailable Carlie SMITH Admitting Clinician Unavailable Payers Payer Name Policy Type Policy Number Effective Date Expiration Date S ource Problems This patient has no known problems. Allergies, Adverse Reactions, Alerts This patient has no known allergies or adverse reactions. Social History Social Habit Start Date Stop Date Quantity Comments Source Sex Assigned At [birth year] [facility] 00:00:00 00:00:00 Smoking Status Start Date Stop Date Source Unknown if ever smoked [facility] Medications This patient has no known medications. Procedures Procedure Date / Time Performed Performing Clinician Sourfrank e COVID-19 QUALITATIVE 2020-04-27 20:45:00 Celestino Mcdonough [facility] RT-PCR Plan of Care Planned Activity Planned Date Details Comments Source Future Scheduled Test COVID-19 VACCINE (1) [facility] [code = COVID-19 VACCINE (1)] Future Scheduled Test INFLUENZA VACCINE [facility] [code = INFLUENZA VACCINE] Encounters Start End Encounter Admission Attending Care Care Encounter Source Date/Time Date/Time Type Type Clinicians Facility Department ID 2020-05-28 2020-05-28 [facility] [id number] [place] 05:09:00 08:44:00 [facility] 2020-04-27 2020-04-27 Lab Sharonda [id number] [facility] 14:20:42 14:25:42 Celestino [id number] Marcin Valdez [id number] Hospit a .[id number] l .8 2020-04-27 2020-04-27 Outpatient SHARONDA [facility] [id number] [place] 00:00:00 00:00:00 CELE[place] [address] 2020-01-25 2020-01-25 Emergency E [facility] 7513 [facility] 00:08:00 00:08:00 2019-07-18 2019-07-18 Emergency E [facility] 7512 [facility] 14:06:00 14:06:00 2019-07-08 2019-07-08 Emergency E [facility] [id number] [facility] 17:22:00 17:22:00 2019-07-08 2019-07-08 Outpatient [facility] [id number] [facility] 17:00:00 17:00:00 2017-07-03 2017-07-03 Outpatient [facility] [id number] [address] [place] [address] 00:00:00 00:00:00 [facility] 2017-06-28 2017-06-29 [facility] [id number] [address] [place] [address] 00:00:00 00:00:00 [facility] 2017-06-23 2017-06-23 Emergency E MARNIEJOLLYG [facility] [id number] [place] 11:52:00 13:51:00 Med[facility] Center 2017-06-21 2017-06-22 Emergency E JESSY [facility] [id number] 97 [place] 23:24:00 02:15:00 [facility] 2016-11-09 2016-11-09 Emergency E TESHA JIMÉNEZ [facility] [id number] [place] 12:10:00 13:05:00 Medica l Center Results Test Description Test Time [...] the FDA and the [employer] (CAP) are more stringent than those required for this test. Therefore, the result should be interpreted with caution and close attention to other clinical and epidemiological data [id number] 07:38:00 Test Item Value Reference Range Interpretation [...] code = LEUK) NEGATIVE NEGATIVE BRAIN NATRIURETIC [id number] 06:26:00 Test Item Value Reference Range Interpretation Comments proBNP (test code = PBNP) 20 pg/mL 0-125 AMYLASE AND [id number] 06:24:00 Test Item Value Reference Range Interpretation Comments AMYLASE (test code = 10A) 55 U/L 28-100 LIPASE (test code = 60A) 221 IU/L 73-393 [id number] 06:24:00 Test Item Value Reference Range Interpretation Comments CPK (test code = 32A) 100 IU/L 39-308 COMPREHENSIVE METABOLIC [id number] 06:24:00 Test Item Value Reference Range Interpretation [...] code = 31A) 59 IU/L <=78 LDH-LACTIC [id number] 06:23:00 Test Item Value Reference Range Interpretation Comments LDH (test code = 33A) 195 IU/L 100-190 H [id number] 06:23:00 Test Item Value Reference Range Interpretation Comments FERRITIN (test code = A19) 122.3 ng/mL 26.0-388.0 TROPONIN [id number] 06:21:00 Test Item Value Reference Range Interpretation Comments TROPONIN I (test code = A84) <0.015 ng/mL 0.000-0.045 [id number] 06:18:00 Test Item Value Reference Range Interpretation Comments MAGNESIUM (test code = 48A) 2.2 mg/dL 1.8-2.4 C-REACTIVE PROTEIN [id number] 06:17:00 Test Item Value Reference Range Interpretation Comments CRP QUANT (test code <2.9 mg/L 0.0-2.9 = CRPQ) Method Change (test Please note the code = METHOD) change in Method and the reference range DIRECT INFLUENZA A AND B [id number] 06:16:00 Test Item Value Reference Range Interpretation Comments Direct Exam (test PRESUMPTIVE NEGATIVE FOR code = DE1) THE PRESENCE OF INFLUENZA ANTIGEN PRO TIME AND [id number] 06:12:00 Test Item Value Reference Range Interpretation [...] or LMW Heparin. Order Code is ANTI-XA [id number] 06:12:00 Test Item Value Reference Range Interpretation Comments D-DIMER (test code = <200 ng/mL D-DU 0-234 DDI) D-DIMER COMMENT (test *Level to rule out code = DDCOM) DVT or PE: <235 ng/mL D-DU* Venous Blood [id number] 06:03:00 Test Item Value Reference Range Interpretation Comments VpH (test code = 7.383 7.300-7.400 VPHRT) VpCO2 (test code = 46.0 mmHg 40.0-50.0 BICS1XX) VpO2 (test code = 55.5 mmHg 30.0-40.0 H VPO2RT) HCO3? (test code = 26.8 mmol/L 22.0-26.0 H HCO3) RADHA (test code = RADHA) 1.7 mmol/L -3.0-3.0 tHb (test code = 15.1 g/dL 14.0-18.0 THBRT) vsO2 (test code = 90.7 % 55.0-75.0 H VSO2RT) FO2Hb (test code = 86.2 % KT8GSHIK) FCOHb (test code = 3.5 % FCOHBRTV) FMetHb (test code = 1.4 % FMETHBRTV) ABGTEMP (test code = * Temp Corrected Values* ABGTEMP) ABGTEMP (test code = 37.0 ?C ABGTEMP.) pH (T) (test code = 7.383 7.300-7.400 PHTEMPV) pCO2 (T) (test code = 46.0 mmHg 40.0-50.0 BQS5KLAPT) pO2 (T) (test code = 55.5 mmHg 30.0-40.0 H SG8XVZIZ) Device (test code = ROOM AIR DEVICE) [...] RBC MORPH (test code = RBCMOR) NORMAL COVID-19 qualitative [id number] 05:07:48 Test Item Value Reference Range Interpretation Comments Interpretation (test Negative results do code = 3629610) not preclude 2019-nCoV infection and should not be used as the sole basis for treatment or other patient management decisions. Negative results must be combined with clinical observations, patient history, and epidemiological information. COVID-19 qualitative Not-Detected Not-Detected RT-PCR result (test code = 37787-2) COVID-19 qualitative See link below for C ase Number: RT-PCR (test code = PDF Lab Report [id number]) [facility] [Presence] in Respiratory specimen by RADHA with probe [id number] 23:07:30 Test Item Value Reference Range Interpretation Comments SARS-CoV-2 (COVID-19) RNA Not detected Not-Detected [Presence] in Respiratory specimen by RADHA with probe detection (test code = 05131-8) BASIC METABOLIC PANEL 2017-06-23 13:15:00 Test Item [...] 09D) 8.8 mg/dL 8.3-9.5 CBC (INCLUDES AUTOMATED DIFFERENTIAL)*[id number] 13:04:00 Test Item Value Reference Range Interpretation [...] 2 VIEW *WW*2017-06-23 12:51:56Exam: Chest 2 viewsLocation: Y5Dmmgvkc: cough, recent pneumonia.Comparison: 10/23/2016.Findings:The lungs are clear. Central peribronchial cuffing is present. No infiltrate oreffusion is seen. The pulmonary vasculature is normal. The heart size isnormal. The mediastinal silhouette is unremarkable. Thebony thorax is intact.Impression:Bronchitis .CT STONE PROTOCOL [id number] 01:06:08AFTER HOURS SERVICE ON: 06/22/2017 1:03 AMCT Scan of the Abdomen and Pelvis Without ContrastLocation Code V08Bankvvf: L flank painTechnique: Axial and reconstructed coronal [...] bowel is otherwise unremarkable. Noinflammatory changes seen.U/S [id number] 00:58:11U/S TESTICULARLocation: S8Oqlsd hours services provided 06/22/2017 12:56 AMIndication: L [...] with no acute testicular or epididymalabnormality.AMYLASE AND [id number] 00:33:00 Test Item Value Reference Range Interpretation Comments AMYLASE (test code = 10A) 65 U/L 28-100 LIPASE (test code = 60A) 140 IU/L 73-393 COMPREHENSIVE METABOLIC [id number] 00:33:00 Test Item Value Reference Range Interpretation [...] (test code = 31A) 29 IU/L <=78 [id number] 00:31:00 Test Item Value Reference Range Interpretation [...] 60A) 100 IU/L 73-393 CBC (INCLUDES AUTOMATED DIFFERENTIAL)*[id number] 14:19:00 Test Item Value Reference Range Interpretation [...] 2016-10-23 13:51:45Portable AP chest, 1 viewLocation Code: D4OJUYQUTY HISTORY: Abdominal painCOMPARISON: 07/14/2013COMMEN T: The lungs are clear and well inflated. The costophrenic angles are sharp. Thecardiomediastinal silhouette is unremarkable. The bones are intact.IMPRESSION: Stable chest with no acute abnormality.CT ABDOMEN AND PELVIS WITHOUT CONTRAST 2016-10-23 13:50:29CT abdomen and pelvis without contrastLocation Code: P5XPITQQFX HISTORY: Abdominal painCOMPARISON: 03/2017Technique: Helical CT of [...] no acute abnormality.CT ABDOMEN AND PELVIS WITH [id number] 21:28:44CT abdomen and pelvis with contrastLocation Code: P6NQBGATGI HISTORY: Abdominal painCOMPARISON: 07/18/13, 07/13/13Technique: Helical CT [...] or fluid collection. The urinary bladder is unrema rkable.There is no pelvic mass or fluid collection. The bones, skin, and surrounding soft tissues are unremarkable.IMPRESSION: No acute intra-abdominal or pelvic abnormality.DRUGS OF [id number] 21:03:00 Test Item Value Reference Range Interpretation [...] 200 ng/mL Opiates 2000 ng/mL URINALYSIS WITH [id number] 20:50:00 Test Item Value Reference Range Interpretation [...] code = USPERM) /HPF NONE AMYLASE AND [id number] 20:44:00 Test Item Value Reference Range Interpretation Comments AMYLASE (test code = 10A) 46 U/L 28-100 LIPASE (test code = 60A) 128 IU/L 73-393 COMPREHENSIVE METABOLIC [id number] 20:44:00 Test Item Value Reference Range Interpretation [...]
--- NOTE | 2021-02-03 02:44 | ER ---
Nurse's Notes [facility] Name: Chico Leon Age: 30 yrs Sex: Male : 1990 Arrival Date: 02/03/2021 Time: 01:48 Bed DX3 Private MD: Diagnosis: Dental pain. Avulsed tooth Presentation: 02/03 02:22 Chief complaint: Patient states: he has had pain to his right upper jaw all day from a bb cracked tooth. Coronavirus screen: At this time, the client does not indicate any symptoms associated with coronavirus-19. Ebola Screen: No symptoms or risks identified at this time. Initial Sepsis Screen: Does the patient meet any 2 criteria? No. Patient's initial sepsis screen is negative. Does the patient have a suspected source of infection? No. Patient's initial sepsis screen is negative. Risk Assessment: Do you want to hurt yourself or someone else? Patient reports no desire to harm self or others. Onset of symptoms was February 02, 2021. 02:22 Method Of Arrival: Ambulatory bb 02:22 Acuity: RADHA 5 bb Triage Assessment: 02:24 General: Appears in no apparent distress. uncomfortable, Behavior is calm, cooperative. bb Pain: Complains of pain in right upper jaw Pain currently is 10 out of 10 on a pain scale. EENT: Dental caries noted in upper right second molar (#2) Reports pain in right upper jaw. Neuro: Level of Consciousness is awake, alert, obeys commands, Oriented to person, place, time, situation. Cardiovascular: Capillary refill < 3 seconds Patient's skin is warm and dry. Respiratory: Respiratory effort is even, unlabored, Respiratory pattern is regular. GI: No signs and/or symptoms were reported involving the gastrointestinal system. Derm: Skin is pink, warm \T\ dry. Musculoskeletal: Circulation, motion, and sensation intact. Historical: - Allergies: 02:24 No Known Allergies; bb - Home Meds: 02:24 None [Active]; bb - PMHx: 02:24 Anxiety; Bipolar disorder; Depression; Pancreatitis; PTSD; Schizophrenia; Borderline; bb Seizures; - PSHx: 02:24 None; bb - Immunization history:: Adult Immunizations up to date, Client reports receiving the 2nd dose of the Covid vaccine. - Social history:: Smoking status: Patient reports the use of cigarette tobacco products, smokes one-half pack cigarettes per day, Patient/guardian denies using alcohol, street drugs. Screenin:32 Abuse screen: Denies threats or abuse. Nutritional screening: No deficits noted. bb Tuberculosis screening: No symptoms or risk factors identified. Fall Risk None identified. Assessment: 02:32 Reassessment: No changes from previously documented assessment. Patient is alert, bb oriented x 3, equal unlabored respirations, skin warm/dry/pink. see triage assessment. Vital Signs: 02:22 BP 134 / 92; Pulse 85; Resp 16 S; Temp 97.6(O); Pulse Ox 99% ; Weight 81.65 kg (R); bb Height 5 ft. 3 in. (160.02 cm) (R); Pain 10/10; 02:22 Body Mass Index 31.89 (81.65 kg, 160.02 cm) bb ED Course: 01:48 Patient arrived in ED. wm 02:24 Triage completed. bb 02:24 Arm band placed on. bb 02:32 Patient has correct armband on for positive identification. bb 02:32 No provider procedures requiring assistance completed. Patient did not have IV access bb during this emergency room visit. 02:33 Benson Andujar MD is Attending Physician. pkl Administered Medications: 02:44 Drug: traMADol 50 mg Route: PO; ms4 02:44 Drug: Clindamycin 300 mg Route: PO; ms4 Outcome: 02:44 Discharge ordered by . pkl 02:50 Discharged to home ambulatory. ms4 02:50 Condition: stable 02:50 Discharge instructions given to patient, Instructed on discharge instructions, follow up and referral plans. Demonstrated understanding of instructions, follow-up care, medications, Prescriptions given X 2. 02:50 Patient left the ED. ms4 Signatures: Benson Andujar MD MD pkAna Paula Funez RN RN Jessica Fuentes Mikaela, RN RN ms4
--- NOTE | 2021-02-03 02:45 | EDPHYS ---
Physician Documentation [facility] Name: Chico Leon Age: 30 yrs Sex: Male : 1990 Arrival Date: 02/03/2021 Time: 01:48 Bed DX3 Private MD: ED Physician Benson Andujar HPI: 02/03 02:38 This 30 yrs old Male presents to ER via Ambulatory with complaints of pkl Toothache. 02:38 The patient presents with broken tooth/teeth, pain. The problem is located in the upper pkl right second molar (#2). Onset: The symptoms/episode began/occurred 2 day(s) ago. Associated signs and symptoms: The patient has no apparent associated signs or symptoms. Historical: - Allergies: 02:24 No Known Allergies; bb - Home Meds: 02:24 None [Active]; bb - PMHx: 02:24 Anxiety; Bipolar disorder; Depression; Pancreatitis; PTSD; Schizophrenia; Borderline; bb Seizures; - PSHx: 02:24 None; bb - Immunization history:: Adult Immunizations up to date, Client reports receiving the 2nd dose of the Covid vaccine. - Social history:: Smoking status: Patient reports the use of cigarette tobacco products, smokes one-half pack cigarettes per day, Patient/guardian denies using alcohol, street drugs. ROS: 02:38 Eyes: Negative for injury, pain, redness, and discharge. pkl 02:38 ENT: Positive for dental pain. 02:38 Neck: Negative for stiffness. 02:38 Cardiovascular: Negative for chest pain. 02:38 Respiratory: Negative for cough, shortness of breath. 02:38 Abdomen/GI: Negative for abdominal pain, nausea, vomiting, and diarrhea. 02:38 Back: Negative for acute changes. 02:38 : Negative for urinary symptoms. 02:38 MS/extremity: Negative for acute changes. 02:38 Skin: Negative for rash. 02:38 Neuro: Negative for altered mental status. Exam: 02:38 Head/Face: Normocephalic, atraumatic. Eyes: Pupils equal round and reactive to light, pkl extra-ocular motions intact. Lids and lashes normal. Conjunctiva and sclera are non-icteric and not injected. Cornea within normal limits. Periorbital areas with no swelling, redness, or edema. 02:38 ENT: Dental exam: avulsion, partial, specifically the upper right second molar (#2), gum swelling, that is mild. 02:38 Neck: Exam negative for nuchal rigidity. 02:38 Chest/axilla: Exam negative for acute changes. 02:38 Cardiovascular: Rate: normal, Rhythm: regular. 02:38 Respiratory: the patient does not display signs of respiratory distress, Respirations: normal, Breath sounds: are clear throughout. 02:38 Abdomen/GI: Bowel sounds: normal, Palpation: abdomen is soft and non-tender, in all quadrants. 02:38 Back: Exam negative for acute changes. 02:38 : Exam negative for acute changes. 02:38 Musculoskeletal/extremity: Exam is negative for acute changes. 02:38 Skin: Exam negative for rash. 02:38 Neuro: Orientation: is normal, Mentation: is normal, Cranial nerves: grossly normal, Motor: is normal, Gait: is steady. Vital Signs: 02:22 BP 134 / 92; Pulse 85; Resp 16 S; Temp 97.6(O); Pulse Ox 99% ; Weight 81.65 kg (R); bb Height 5 ft. 3 in. (160.02 cm) (R); Pain 10/10; 02:22 Body Mass Index 31.89 (81.65 kg, 160.02 cm) bb MDM: 02:33 Patient medically screened. pkl 02:38 Data reviewed: vital signs, nurses notes. ED course: Advised to see Dentist in 1 to 2 pkl days. Administered Medications: 02:44 Drug: traMADol 50 mg Route: PO; ms4 02:44 Drug: Clindamycin 300 mg Route: PO; ms4 Disposition Summary: 02/03/21 02:44 Discharge Ordered Location: Home pkl Problem: new pkl Symptoms: are unchanged pkl Condition: Stable pkl Diagnosis - Dental pain. Avulsed tooth pkl Followup: pkl - With: Private Physician - When: 1 - 2 days - Reason: Re-evaluation by your physician Discharge Instructions: - Discharge Summary Sheet pkl Forms: - Medication Reconciliation Form pkl - Thank You Letter pkl - Antibiotic Education pkl - Prescription Opioid Use pkl Prescriptions: - Clindamycin HCl 300 mg Oral Capsule - take 1 capsule by ORAL route every 6 hours for 7 days; 28 capsule; Refills: 0, pkl Product Selection Permitted - Ultram 50 mg Oral Tablet - take 1 tablet by ORAL route every 6 hours As needed; 12 tablet; Refills: 0, pkl Product Selection Permitted Signatures: Benson Andujar MD MD pkl Ana Paula Ferrara, RN RN bb Judy Anton RN RN ms4
[2021-02-03 02:58] VITALS: BP 134/92; TEMP 97.6; O2SAT 99
[2021-02-03] MEDS ORDERED: TRAMADOL HCL 50 MG TAB ONE (03:07)
== END 2021-02-03 02:50 | disposition home or self-care (01) ==
LOC: ER 01:46
DX: S03.2XXA Dislocation of tooth, initial encounter (principal); F17.210 Nicotine dependence, cigarettes, uncomplicated
CPT/HCPCS: 99283

== ENCOUNTER 2021-02-13 20:42 | Emergency (ER) | payer SELFPAY ==
--- OUTSIDE RECORDS SUMMARY | 2021-02-13 20:47 | XMS REPORT | Continuity of Care Document ---
:1990 Author Organization [facility] t Address [address] [place] [address] Dr. Putnam [address] [place] [id number] Care Team Providers Name Role Phone Deangelo Alves MD Attending Clinician DR Dennise DUMONT Attending Clinician Unavailable MARNIE, Attending Clinician Unavailable JESSY, Attending Clinician Unavailable DR Kendell JIMÉNEZ Attending Clinician Unavailable Carlie SMITH Attending Clinician Unavailable DR Dennise DUMONT Admitting Clinician Unavailable MARNIE, Admitting Clinician Unavailable DR JESSY Admitting Clinician Unavailable DR Kendell JIMÉNEZ Admitting Clinician Unavailable Carlei SMITH Admitting Clinician Unavailable Problems This patient has no known problems. Allergies, Adverse Reactions, Alerts This patient has no known allergies or adverse reactions. Social History Social Habit Start Date Stop Date Quantity Comments Source Sex Assigned At [birth year] [facility] 00:00:00 00:00:00 Smoking Status Start Date Stop Date Source Unknown if ever smoked [facility] Medications This patient has no known medications. Immunizations Ordered Immunization Filled Immunization Date Status Commen ts Source Name Name [facility] [place] COVID-19 MRNA 2021-02-02 Completed Meth odist VACCINATION 00:00:00 [facility] P[facility] COVID-19 MRNA 2021-01-12 Completed Meth odist VACCINATION 00:00:00 Hospital Procedures This patient has no known procedures. Plan of Care Planned Activity Planned Date Details Comments Source Future Scheduled Test Hepatitis C screening [facility] (procedure) [code = 513422739] Future Scheduled Test INFLUENZA VACCINE M [facility] [code = INFLUENZA VACCINE] Encounters Start End Encounter Admission Attending Care Care Encounter Source Date/Time Date/Time Type Type Clinicians Facility Department ID 2021-02-02 2021-02-02 Clinical Patti Alves.[id number] [place] 08:59:25 09:04:25 Support Deangelo Humphrey [id number] [id number] Hospit a .[id number] l .8 2021-02-02 2021-02-02 Outpatient JOESPH, [facility] [id number] [place] 00:00:00 00:00:[address] [facility] 2021-01-12 2021-01-12 Clinical [id number] [facility] 08:08:25 08:13:[id number] 3.430.2.7 Hospit a .[id number] l .8 2021-01-12 2021-01-12 Outpatient [facility] [id number] [place] 00:00:00 00:00:[address] 2020-05-28 2020-05-28 Emergency E TIM [facility] [id number] [place] 05:09:00 08:44:00 [facility] Medica l Center 2017-07-03 2017-07-03 Outpatient [facility] [id number] [place] 00:00:00 00:00:00 [facility] 2017-06-28 2017-06-29 Outpatient [facility] [id number] [address] [place] [address] 00:00:00 00:00:00 [facility] 2017-06-23 2017-06-23 Emergency E GERRI DYE [facility] [id number] [place] 11:52:00 13:51:00 Medica l Center 2017-06-21 2017-06-22 Emergency E JESSY [facility] [id number] [place] 23:24:00 02:15:00 [facility] 2016-11-09 2016-11-09 Emergency E TESHA JIMÉNEZ [facility] [id number] [place] 12:10:00 13:05:00 Medica l Center Results [...] the FDA and the [employer] (CAP) are more stringent than those required for this test. Therefore, the result should be interpreted with caution and close attention to other clinical and epidemiological data [id number] 07:38:00 Test Item Value Reference Range Interpretation [...] code = LEUK) NEGATIVE NEGATIVE BRAIN NATRIURETIC [id number] 06:26:00 Test Item Value Reference Range Interpretation Comments proBNP (test code = PBNP) 20 pg/mL 0-125 AMYLASE AND [id number] 06:24:00 Test Item Value Reference Range Interpretation Comments AMYLASE (test code = 10A) 55 U/L 28-100 LIPASE (test code = 60A) 221 IU/L 73-393 [id number] 06:24:00 Test Item Value Reference Range Interpretation Comments CPK (test code = 32A) 100 IU/L 39-308 COMPREHENSIVE METABOLIC [id number] 06:24:00 Test Item Value Reference Range Interpretation [...] code = 31A) 59 IU/L <=78 LDH-LACTIC [id number] 06:23:00 Test Item Value Reference Range Interpretation Comments LDH (test code = 33A) 195 IU/L 100-190 H [id number] 06:23:00 Test Item Value Reference Range Interpretation Comments FERRITIN (test code = A19) 122.3 ng/mL 26.0-388.0 TROPONIN [id number] 06:21:00 Test Item Value Reference Range Interpretation Comments TROPONIN I (test code = A84) <0.015 ng/mL 0.000-0.045 [id number] 06:18:00 Test Item Value Reference Range Interpretation Comments MAGNESIUM (test code = 48A) 2.2 mg/dL 1.8-2.4 C-REACTIVE PROTEIN [id number] 06:17:00 Test Item Value Reference Range Interpretation Comments CRP QUANT (test code <2.9 mg/L 0.0-2.9 = CRPQ) Method Change (test Please note the code = METHOD) change in Method and the reference range DIRECT INFLUENZA A AND B [id number] 06:16:00 Test Item Value Reference Range Interpretation Comments Direct Exam (test PRESUMPTIVE NEGATIVE FOR code = DE1) THE PRESENCE OF INFLUENZA ANTIGEN PRO TIME AND [id number] 06:12:00 Test Item Value Reference Range Interpretation [...] or LMW Heparin. Order Code is ANTI-XA [id number] 06:12:00 Test Item Value Reference Range Interpretation Comments D-DIMER (test code = <200 ng/mL D-DU 0-234 DDI) D-DIMER COMMENT (test *Level to rule out code = DDCOM) DVT or PE: <235 ng/mL D-DU* Venous Blood [id number] 06:03:00 Test Item Value Reference Range Interpretation Comments VpH (test code = 7.383 7.300-7.400 VPHRT) VpCO2 (test code = 46.0 mmHg 40.0-50.0 LSNH6TE) VpO2 (test code = 55.5 mmHg 30.0-40.0 H VPO2RT) HCO3? (test code = 26.8 mmol/L 22.0-26.0 H HCO3) RADHA (test code = RADHA) 1.7 mmol/L -3.0-3.0 tHb (test code = 15.1 g/dL 14.0-18.0 THBRT) vsO2 (test code = 90.7 % 55.0-75.0 H VSO2RT) FO2Hb (test code = 86.2 % [id number]) FCOHb (test code = 3.5 % FCOHBRTV) FMetHb (test code = 1.4 % FMETHBRTV) ABGTEMP (test code = * Temp Corrected Values* ABGTEMP) ABGTEMP (test code = 37.0 ?C ABGTEMP.) pH (T) (test code = 7.383 7.300-7.400 PHTEMPV) pCO2 (T) (test code = 46.0 mmHg 40.0-50.0 GGG2OQLXA) pO2 (T) (test code = 55.5 mmHg 30.0-40.0 H OR7NYCTY) Device (test code = ROOM AIR DEVICE) [...] code = RBCMOR) NORMAL BASIC METABOLIC PANEL *WW*2017-06-23 13:15:00 Test Item Value Reference Range Interpretation [...] 09D) 8.8 mg/dL 8.3-9.5 CBC (INCLUDES AUTOMATED DIFFERENTIAL)*[id number] 13:04:00 Test Item Value Reference Range Interpretation [...] 2 VIEW *WW*2017-06-23 12:51:56Exam: Chest 2 viewsLocation: R3Wsiftkn: cough, recent pneumonia.Comparison: 10/23/2016.Findings:The lungs are clear. Central peribronchial cuffing is present. No infiltrate oreffusion is seen. The pulmonary vasculature is normal. The heart size isnormal. The mediastinal silhouette is unremarkable. Thebony thorax is intact.Impression:Bronchitis .CT STONE PROTOCOL [id number] 01:06:08AFTER HOURS SERVICE ON: 06/22/2017 1:03 AMCT Scan of the Abdomen and Pelvis Without ContrastLocation Code [id number]: L flank painTechnique: Axial and reconstructed coronal [...] Noinflammatory changes seen.U/S TESTICULAR 2017-06-22 00:58:11U/S TESTICULARLocation: W9Ffxnh hours services provided 06/22/2017 12:56 AMIndication: L [...] with no acute testicular or epididymalabnormality.AMYLASE AND [id number] 00:33:00 Test Item Value Reference Range Interpretation Comments AMYLASE (test code = 10A) 65 U/L 28-100 LIPASE (test code = 60A) 140 IU/L 73-393 COMPREHENSIVE METABOLIC [id number] 00:33:00 Test Item Value Reference Range Interpretation [...] (test code = 31A) 29 IU/L <=78 [id number] 00:31:00 Test Item Value Reference Range Interpretation [...] 60A) 100 IU/L 73-393 CBC (INCLUDES AUTOMATED DIFFERENTIAL)*[id number] 14:19:00 Test Item Value Reference Range Interpretation [...] 2016-10-23 13:51:45Portable AP chest, 1 viewLocation Code: [id number] HISTORY: Abdominal painCOMPARISON: 07/14/2013COMMEN T: The lungs are clear and well inflated. The costophrenic angles are sharp. Thecardiomediastinal silhouette is unremarkable. The bones are intact.IMPRESSION: Stable chest with no acute abnormality.CT ABDOMEN AND PELVIS WITHOUT CONTRAST 2016-10-23 13:50:29CT abdomen and pelvis without contrastLocation Code: [id number] HISTORY: Abdominal painCOMPARISON: 03/2017Technique: Helical CT of [...] no acute abnormality.CT ABDOMEN AND PELVIS WITH [id number] 21:28:44CT abdomen and pelvis with contrastLocation Code: V5VAUGZCIM HISTORY: Abdominal painCOMPARISON: 07/18/13, 07/13/13Technique: Helical CT [...] No acute intra-abdominal or pelvic abnormality.DRUGS OF [id number] 21:03:00 Test Item Value Reference Range Interpretation [...] 200 ng/mL Opiates 2000 ng/mL URINALYSIS WITH [id number] 20:50:00 Test Item Value Reference Range Interpretation [...] code = USPERM) /HPF NONE AMYLASE AND [id number] 20:44:00 Test Item Value Reference Range Interpretation Comments AMYLASE (test code = 10A) 46 U/L 28-100 LIPASE (test code = 60A) 128 IU/L 73-393 COMPREHENSIVE METABOLIC [id number] 20:44:00 Test Item Value Reference Range Interpretation [...]
--- NOTE | 2021-02-13 21:31 | EDPHYS ---
Physician Documentation [facility] Name: Chico Leon Age: 30 yrs Sex: Male : 1990 Arrival Date: 02/13/2021 Time: 20:46 Bed 11 Private MD: ED Physician Benson Andujar HPI: 02/13 21:30 This 30 yrs old Male presents to ER via Ambulatory with complaints of pm1 Toothache. 21:30 The patient presents with pain. The problem is located in the upper right second molar. pm1 Onset: The symptoms/episode began/occurred and became worse today. Duration: The symptoms are continuous. Modifying factors: The symptoms are alleviated by nothing, the symptoms are aggravated by food. Associated signs and symptoms: Pertinent negatives: fever, inability to eat, swelling. Severity of symptoms: in the emergency department the symptoms are actually worse. The patient has been recently seen at the [facility] Emergency Department, last week, for similar complaints was given a prescription for antibiotics, was given a prescription for pain medications. Has not followed up with dentist since last ER visit for the same complaint. 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 - Social history:: Smoking status: Patient reports the use of cigarette tobacco products, smokes one-half pack cigarettes per day. ROS: 21:30 Constitutional: Negative for fever, chills, and weight loss. pm1 21:30 Cardiovascular: Negative for chest pain, palpitations, and edema, Respiratory: Negative for shortness of breath, cough, wheezing, and pleuritic chest pain, MS/Extremity: Negative for injury and deformity, Skin: Negative for injury, rash, and discoloration, Neuro: Negative for headache, weakness, numbness, tingling, and seizure. 21:30 ENT: Positive for dental pain, Negative for sore throat, difficulty swallowing, difficulty handling secretions, hoarseness. 21:30 All other systems are negative. Exam: 21:30 Constitutional: This is a well developed, well nourished patient who is awake, alert, pm1 and in no acute distress. Head/Face: Normocephalic, atraumatic. 21:30 Skin: Warm, dry with normal turgor. Normal color with no rashes, no lesions, and no evidence of cellulitis. MS/ Extremity: Pulses equal, no cyanosis. Neurovascular intact. Full, normal range of motion. 21:30 ENT: Exam is negative for acute changes, Mouth: Lips: normal, moist, Oral mucosa: normal, pink and intact, moist, Dental exam: no acute changes, abscess, is not appreciated, dental caries, that is moderate, specifically in the upper right second molar (#2). 21:30 Neck: Exam negative for acute changes, ROM/movement: is normal, is supple. 21:30 Cardiovascular: Exam negative for acute changes, Rate: normal, Rhythm: regular, Pulses: no pulse deficits are appreciated. 21:30 Respiratory: Exam negative for acute changes, respiratory distress, shortness of breath. 21:30 Neuro: Exam negative for acute changes, Orientation: is normal, Mentation: is normal, Motor: is normal, moves all fours, Gait: is steady, at a normal pace, without difficulty. Vital Signs: 20:50 BP 148 / 92; Pulse 66; Resp 18; Temp 98.8; Pulse Ox 100% on R/A; Weight 77.11 kg; wg Height 5 ft. 3 in. (160.02 cm); Pain 10/10; 21:51 BP 142 / 90; Pulse 68; Resp 18; Pulse Ox 99% on R/A; df1 20:50 Body Mass Index 30.11 (77.11 kg, 160.02 cm) wg MDM: 21:06 Patient medically screened. pm1 21:20 Data reviewed: vital signs. Data interpreted: Pulse oximetry: on room air is 100 %. pm1 Interpretation: normal. 21:20 Counseling: I had a detailed discussion with the patient and/or guardian regarding: the pm1 historical points, exam findings, and any diagnostic results supporting the discharge/admit diagnosis, the need for outpatient follow up, for definitive care, a dentist, The importance of following up with a dentist for evaluation treatment, likely extraction of teeth. Will discharge patient home with antibiotic and pain medication after treating with pain medication here. Administered Medications: 21:23 Drug: [place] (HYDROcodone-acetaminophen) 10 mg-325 mg 1 tabs Route: PO; wg 21:51 Follow up: Response: No adverse reaction df1 Disposition: 23:35 Co-signature as Attending Physician, Benson Andujar MD. pinky Disposition Summary: 02/13/21 21:30 Discharge Ordered Location: Home pm1 Problem: new pm1 Symptoms: have improved pm1 Condition: Stable pm1 Diagnosis - Dental pain pm1 Followup: pm1 - With: Emergency Department - When: As needed - Reason: Worsening of condition Followup: pm1 - With: Private Physician - When: 2 - 3 days - Reason: Recheck today's complaints, Continuance of care, Re-evaluation by your physician Discharge Instructions: - Discharge Summary Sheet pm1 - Dental Pain pm1 Forms: - Medication Reconciliation Form pm1 - Thank You Letter pm1 - Antibiotic Education pm1 - Prescription Opioid Use pm1 Prescriptions: - acetaminophen-codeine 300-15 mg Oral tablet - take 2 tablet by ORAL route every 6 hours As needed as needed; 20 tablet; pm1 Refills: 0, Product Selection Permitted - Amoxicillin 500 mg Oral Capsule - take 1 capsule by ORAL route every 8 hours for 10 days; 30 tablet; Refills: 0, pm1 Product Selection Permitted Signatures: Benson Andujar MD MD pkl Kendall Smith, SHIRA CLINICAL SCIENCE LIAISON pm1 Torrey Rose RN wg Furlich, Dawn df1
--- NOTE | 2021-02-13 21:31 | ER ---
Nurse's Notes [facility] Name: Chico Leon Age: 30 yrs Sex: Male : 1990 Arrival Date: 02/13/2021 Time: 20:46 Bed 11 Private MD: Diagnosis: Dental pain Presentation: 02/13 20:50 Chief complaint: Patient states: Pt states he has an infected tooth in his right upper wg molar that really started to get worse around 5pm tonight. States he knows he needs to get it extracted but hasn't had a chance. States pain too much to tolerate at this time. Pt denies any other complaints. Coronavirus screen: Vaccine status: Patient reports receiving the 2nd dose of the covid vaccine. Date February 02, 2021 At this time, the client does not indicate any symptoms associated with coronavirus-19. Ebola Screen: Patient negative for fever greater than or equal to 101.5 degrees Fahrenheit, and additional compatible Ebola Virus Disease symptoms Patient denies exposure to infectious person. Patient denies travel to an Ebola-affected area in the 21 days before illness onset. No symptoms or risks identified at this time. Initial Sepsis Screen: Does the patient meet any 2 criteria? No. Patient's initial sepsis screen is negative. Does the patient have a suspected source of infection? No. Patient's initial sepsis screen is negative. Risk Assessment: Do you want to hurt yourself or someone else? Patient reports no desire to harm self or others. Onset of symptoms was February 13, 2021 at 15:00. Care prior to arrival: None. 20:50 Method Of Arrival: Ambulatory 20:50 Acuity: RADHA 4 Triage Assessment: 20:54 General: Appears uncomfortable, well groomed, Behavior is calm, cooperative. Pain: wg Complains of pain in Upper rear molar Pain currently is 10 out of 10 on a pain scale. Quality of pain is described as aching. EENT: Reports pain in mouth- upper rear molar. Neuro: No deficits noted. Cardiovascular: No deficits noted. Respiratory: No deficits noted. GI: No deficits noted. : No deficits noted. Derm: No deficits noted. Musculoskeletal: No deficits noted. 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 - Social history:: Smoking status: Patient reports the use of cigarette tobacco products, smokes one-half pack cigarettes per day. Screenin:52 Abuse screen: Denies threats or abuse. Nutritional screening: No deficits noted. df1 Tuberculosis screening: No symptoms or risk factors identified. Fall Risk None identified. Vital Signs: 20:50 BP 148 / 92; Pulse 66; Resp 18; Temp 98.8; Pulse Ox 100% on R/A; Weight 77.11 kg; wg Height 5 ft. 3 in. (160.02 cm); Pain 10/10; 21:51 BP 142 / 90; Pulse 68; Resp 18; Pulse Ox 99% on R/A; df1 20:50 Body Mass Index 30.11 (77.11 kg, 160.02 cm) ED Course: 20:46 Patient arrived in ED. bp1 20:54 Triage completed. wg 20:54 Arm band placed on right wrist. wg 21:06 Kendall Smith NP is PHCP. pm1 21:06 Benson Andujar MD is Attending Physician. pm1 21:09 Mana Faustin is Primary Nurse. df1 21:52 Patient has correct armband on for positive identification. df1 21:52 No provider procedures requiring assistance completed. df1 21:54 Patient did not have IV access during this emergency room visit. df1 Administered Medications: 21:23 Drug: [place] (HYDROcodone-acetaminophen) 10 mg-325 mg 1 tabs Route: PO; 21:51 Follow up: Response: No adverse reaction df1 Outcome: 21:30 Discharge ordered by . pm1 21:53 Discharged to home ambulatory. df1 21:53 Condition: good 21:53 Discharge instructions given to patient, Instructed on discharge instructions, Demonstrated understanding of 21:54 Patient left the ED. df1 Signatures: Kendall Smith NP RECOVERY OPERATOR HELPER pm1 Laura Vargas Liam, RN Mana Faustin df1
[2021-02-13] MEDS ORDERED: HYDROCODONE/APAP 10/325 TAB ONE (21:45)
[2021-02-13 22:00] VITALS: TEMP 98.8
[2021-02-13 22:03] VITALS: BP 142/90; O2SAT 99
== END 2021-02-13 21:54 | disposition home or self-care (01) ==
LOC: ER 20:42
DX: K08.89 Other specified disorders of teeth and supporting structures (principal); F17.210 Nicotine dependence, cigarettes, uncomplicated; F31.9 Bipolar disorder, unspecified
CPT/HCPCS: 99283

== ENCOUNTER 2021-03-21 22:10 | Emergency (ER) | payer SELFPAY ==
[2021-03-21 22:37] LABS: Urine Blood Trace-intact (Negative); Urine Glucose Negative (Negative); Urine Protein 2+ (Negative); Urine Specific Gravity >=1.030 (1.005-1.030); Urine pH 5.5 (5.0-7.0)
[2021-03-21 22:55] LABS: Basophils % 0.6 % (0-1.3); Hematocrit 49.1 % (39.6-49.0); Lymphocytes % 17.4 % (15.3-44.8); MPV 9.4 fL (7.6-11.3)
[2021-03-21 23:06] LABS: Albumin 5.3 g/dL (3.4-5.0); Bilirubin Direct 0.1 mg/dL (0-0.2); Bilirubin Total 0.7 mg/dL (0.2-1.0); Potassium 3.8 mmol/L (3.5-5.1); Protein, Total 9.3 g/dL (6.4-8.2)
[2021-03-22] MEDS ORDERED: ONDANSETRON 4 MG/2 ML VIAL ONE (01:41)
[2021-03-22] MEDS ORDERED: FAMOTIDINE 20 MG/2 ML VIAL IV ONE (01:41)
[2021-03-22] MEDS ORDERED: NA CHLORIDE 0.9% 1,000 ML ONE (01:41)
[2021-03-22] MEDS ORDERED: MORPHINE 4 MG/ML SYR ONE (01:41)
[2021-03-22 02:09] LABS: Barbiturates NEGATIVE (NEGATIVE); Benzodiazepines NEGATIVE (NEGATIVE); Cocaine NEGATIVE (NEGATIVE); METHAMPHETAM NEGATIVE (NEGATIVE); Methadone NEGATIVE (NEGATIVE); Opiates NEGATIVE (NEGATIVE); Phencyclidine NEGATIVE (NEGATIVE); THC Cannibis NEGATIVE (NEGATIVE)
[2021-03-22 02:38] LABS: Creatine Phosphokinase 590 U/L (39-308); Troponin (Emerg Dept Use Only) < 0.02 ng/mL (0.0-0.045)
[2021-03-22] MEDS ORDERED: NA CHLORIDE 0.9% 250 ML ONE (05:19)
[2021-03-22] MEDS ORDERED: CEFTRIAXONE 1000 MG/VIAL ONE (05:19)
[2021-03-22] MEDS ORDERED: AZITHROMYCIN 500 MG INJ IVPB ONE (05:19)
--- NOTE | 2021-03-22 06:04 | ER ---
Nurse's Notes [facility] Name: Chico Leon Age: 30 yrs Sex: Male : 1990 Arrival Date: 03/21/2021 Time: 22:19 Bed 17 Private MD: Diagnosis: Pneumonia;Upper abdominal pain, unspecified Presentation: 03/21 22:19 Chief complaint: Patient states: Epigastric and chest pain since 1800, c/o nausea, sj1 vomiting, and diarrhea. hx of pancreatitis and muscle cramps. Coronavirus screen: Vaccine status: Patient reports receiving the 2nd dose of the covid vaccine. Ebola Screen: No symptoms or risks identified at this time. Initial Sepsis Screen: Does the patient meet any 2 criteria? No. Patient's initial sepsis screen is negative. Does the patient have a suspected source of infection? No. Patient's initial sepsis screen is negative. Risk Assessment: Do you want to hurt yourself or someone else? Patient reports no desire to harm self or others. Onset of symptoms was March 21, 2021. 22:19 Method Of Arrival: EMS sj 22:19 Acuity: RADHA 3 sj1 Triage Assessment: 22:21 General: Appears in no apparent distress. Behavior is calm, cooperative, appropriate sj1 for age. Pain: Complains of pain in chest and abdomen Pain radiates to back Pain currently is 3 out of 10 on a pain scale. at worst was 10 out of 10 on a pain scale. level that patient reports is acceptable is 0 out of 10 on a pain scale. Quality of pain is described as sharp, Pain began 1800. EENT: No deficits noted. Neuro: No deficits noted. Cardiovascular: Reports chest pain. Respiratory: Reports shortness of breath at rest. GI: Reports upper abdominal pain, diarrhea, nausea, vomiting. : No deficits noted. Derm: No deficits noted. Musculoskeletal: No deficits noted. Historical: - Allergies: 22:21 No Known Allergies; sj1 - Home Meds: 22:21 None [Active]; sj1 - PMHx: 22:21 Anxiety; Bipolar disorder; Depression; Pancreatitis; PTSD; Schizophrenia; Borderline; sj1 Seizures; - PSHx: 22:21 Appendectomy; sj1 - Immunization history:: Client reports receiving the 2nd dose of the Covid vaccine. - Social history:: Smoking status: Patient denies any tobacco usage or history of. Patient/guardian denies using alcohol, street drugs. Screenin:23 Abuse screen: Denies threats or abuse. Denies injuries from another. Nutritional sj1 screening: No deficits noted. Tuberculosis screening: No symptoms or risk factors identified. Fall Risk None identified. Assessment: 22:58 General: Appears distressed, uncomfortable, pt pacing in room.. Behavior is restless, kc4 Denies fever, feeling ill, fatigue, chills. Pain: Complains of pain in epigastric Pain does not radiate. Pain currently is 8 out of 10 on a pain scale. at worst was 9 out of 10 on a pain scale. level that patient reports is acceptable is 2 out of 10 on a pain scale. Quality of pain is described as burning, stinging, Pain began suddenly, 2 hours ago. Is continuous, Alleviated by nothing. Aggravated by eating, drinking, Also complains of. Neuro: No deficits noted. Cardiovascular: No deficits noted. Respiratory: No deficits noted. GI: No deficits noted. No signs and/or symptoms were reported involving the gastrointestinal system. : No deficits noted. No signs and/or symptoms were reported regarding the genitourinary system. EENT: No deficits noted. No signs and/or symptoms were reported regarding the EENT system. Derm: No deficits noted. No signs and/or symptoms reported regarding the dermatologic system. Vital Signs: 22:19 BP 147 / 79; Pulse 112; Resp 18 S; Temp 97.6; Pulse Ox 97% on R/A; Weight 77.11 kg (R); sj1 Height 5 ft. 3 in. (160.02 cm); Pain 08/10; 03/22 00:56 BP 160 / 80; Pulse 98; Resp 18; Temp 98.0(O); Pain 03/12; kc4 01:45 BP 137 / 84; Pulse 80; Resp 18; Temp 98.0; Pulse Ox 100% on R/A; Pain 07/13; kc4 02:30 BP 135 / 87; Pulse 90; Resp 18; Pulse Ox 99% on R/A; kc4 03:30 BP 141 / 92; Pulse 84; Resp 16; Pulse Ox 100% on R/A; kc4 04:15 BP 127 / 80; Pulse 72; Resp 18; Pulse Ox 99% on R/A; kc4 05:20 BP 127 / 92; Pulse 96; Resp 18; Pulse Ox 99% on R/A; kc4 03/21 22:19 Body Mass Index 30.11 (77.11 kg, 160.02 cm) [facility] ED Course: 03/21 22:19 Patient arrived in ED. sj1 22:21 Triage completed. sj1 22:21 Arm band placed on right wrist. EKG completed in triage. Results shown to MD. sj1 22:23 Patient has correct armband on for positive identification. sj1 22:32 Basic Metabolic Panel Sent. sj1 22:32 CBC with Diff Sent. sj1 22:32 Hepatic Function Sent. sj1 22:32 Lipase Sent. sj1 22:53 Bina Fernández is Primary Nurse. kc4 23:51 Oni Rodas MD is Attending Physician. 7 03/22 00:55 Pt. is pacing. kc4 00:55 Inserted saline lock: 20 gauge in right antecubital area, using aseptic technique. kc4 00:55 No provider procedures requiring assistance completed. kc4 01:12 Chest Single View XRAY In Process Unspecified. EDMS 01:34 Troponin (emerg Dept Use Only) Sent. kc4 02:14 Chest Abd Pelvis Wo Con In Process Unspecified. EDMS Administered Medications: 01:35 Drug: morphine 4 mg Route: IVP; Site: right antecubital; kc4 03:22 Follow up: Response: No adverse reaction df1 01:35 Drug: Zofran (Ondansetron) 4 mg Route: IVP; Site: right antecubital; kc4 03:22 Follow up: Response: No adverse reaction df1 01:35 Drug: Pepcid (famotidine) 20 mg Route: IVP; Site: right antecubital; kc4 03:22 Follow up: Response: No adverse reaction df1 01:39 Drug: NS 0.9% 1000 ml Route: IV; Rate: 1000 ml; Site: right antecubital; kc4 03:23 Follow up: IV Status: Completed infusion df1 05:26 Drug: Zithromax (azithromycin) 500 mg Route: IVPB; Infused Over: 1 hrs; Site: right mr2 antecubital; 05:59 Follow up: Response: No adverse reaction; IV Status: Completed infusion kc4 05:27 Drug: Rocephin (cefTRIAXone) 1 grams Route: IV; Rate: per protocol; Site: right mr2 antecubital; 05:59 Follow up: Response: No adverse reaction kc4 Outcome: 06:04 Discharge ordered by MD. jernigan 06:29 Patient left the ED. kc4 Signatures: Dispatcher [employer] EDOni Knight MD MD mh7 Bina Fernández kc4 Ryan Garcia RN RN mr2 Mana Faustin df1 Amita Woody RN RN sj1
--- NOTE | 2021-03-22 06:04 | EDPHYS ---
Physician Documentation [facility] Name: Chico Leon Age: 30 yrs Sex: Male : 1990 Arrival Date: 03/21/2021 Time: 22:19 Bed 17 Private MD: ED Physician Oni Rodas HPI: 03/22 00:45 This 30 yrs old Male presents to ER via EMS with complaints of Epigastric Pain.mh7 00:45 The patient presents with abdominal pain in the upper abdomen. Onset: The mh7 symptoms/episode began/occurred yesterday. 00:45 The symptoms radiate to back, chest. mh7 00:45 Associated signs and symptoms: Pertinent positives: nausea, vomiting, and diarrhea, mh7 Pertinent negatives: anorexia, blood in stools, constipation, dysuria, fever, headache, hematuria, palpitations, shortness of breath, testicular pain, vomiting blood. 00:45 The symptoms are described as intermittent, vague, waxing/waning. Modifying factors: mh7 The symptoms are alleviated by nothing, the symptoms are aggravated by nothing. Severity of pain: At its worst the pain was moderate yesterday, in the emergency department the pain is unchanged. Historical: - Allergies: 03/21 22:21 No Known Allergies; sj1 - Home Meds: 22:21 None [Active]; sj1 - PMHx: 22:21 Anxiety; Bipolar disorder; Depression; Pancreatitis; PTSD; Schizophrenia; Borderline; sj1 Seizures; - PSHx: 22:21 Appendectomy; sj1 - Immunization history:: Client reports receiving the 2nd dose of the Covid vaccine. - Social history:: Smoking status: Patient denies any tobacco usage or history of. Patient/guardian denies using alcohol, street drugs. ROS: 03/22 00:45 Constitutional: Negative for fever, chills, and weight loss, Eyes: Negative for injury, mh7 pain, redness, and discharge, ENT: Negative for injury, pain, and discharge, Neck: Negative for injury, pain, and swelling, Respiratory: Negative for shortness of breath, cough, wheezing, and pleuritic chest pain, : Negative for injury, bleeding, discharge, and swelling, MS/Extremity: Negative for injury and deformity, Skin: Negative for injury, rash, and discoloration, Neuro: Negative for headache, weakness, numbness, tingling, and seizure, Psych: Negative for depression, anxiety, suicide ideation, homicidal ideation, and hallucinations, Allergy/Immunology: Negative for hives, rash, and allergies, Endocrine: Negative for neck swelling, polydipsia, polyuria, polyphagia, and marked weight changes, Hematologic/Lymphatic: Negative for swollen nodes, abnormal bleeding, and unusual bruising. Exam: 00:45 Head/Face: Normocephalic, atraumatic. Eyes: Pupils equal round and reactive to light, mh7 extra-ocular motions intact. Lids and lashes normal. Conjunctiva and sclera are non-icteric and not injected. Cornea within normal limits. Periorbital areas with no swelling, redness, or edema. Neck: Trachea midline, no thyromegaly or masses palpated, and no cervical lymphadenopathy. Supple, full range of motion without nuchal rigidity, or vertebral point tenderness. No Meningismus. Chest/axilla: Normal chest wall appearance and motion. Nontender with no deformity. No lesions are appreciated. Cardiovascular: Regular rate and rhythm with a normal S1 and S2. No gallops, murmurs, or rubs. Normal PMI, no JVD. No pulse deficits. Respiratory: Lungs have equal breath sounds bilaterally, clear to auscultation and percussion. No rales, rhonchi or wheezes noted. No increased work of breathing, no retractions or nasal flaring. 00:45 Back: No spinal tenderness. No costovertebral tenderness. Full range of motion. Skin: Warm, dry with normal turgor. Normal color with no rashes, no lesions, and no evidence of cellulitis. MS/ Extremity: Pulses equal, no cyanosis. Neurovascular intact. Full, normal range of motion. Neuro: Awake and alert, GCS 15, oriented to person, place, time, and situation. Cranial nerves II-XII grossly intact. Motor strength 5/5 in all extremities. Sensory grossly intact. Cerebellar exam normal. Normal gait. Psych: Awake, alert, with orientation to person, place and time. Behavior, mood, and affect are within normal limits. 00:45 Constitutional: The patient appears in no acute distress, alert, awake, uncomfortable. 00:45 Abdomen/GI: Inspection: abdomen appears normal, Bowel sounds: normal, in all quadrants, Palpation: moderate abdominal tenderness, in the epigastric area, right upper quadrant and left upper quadrant, mass, is not appreciated, rebound tenderness, is not appreciated, voluntary guarding, is not appreciated, involuntary guarding, is not appreciated, no appreciated organomegaly, Rectal exam: the exam is deferred, because of patient request, Indicators: McBurney's point is not tender, Hoffmann's sign is negative, Rovsing's sign is negative, Obturator sign is negative, Psoas sign is negative, Liver: no appreciated palpable abnormalities, Hernia: not appreciated. Vital Signs: 03/21 22:19 BP 147 / 79; Pulse 112; Resp 18 S; Temp 97.6; Pulse Ox 97% on R/A; Weight 77.11 kg (R); sj1 Height 5 ft. 3 in. (160.02 cm); Pain 08/10; 03/22 00:56 BP 160 / 80; Pulse 98; Resp 18; Temp 98.0(O); Pain 03/12; kc4 01:45 BP 137 / 84; Pulse 80; Resp 18; Temp 98.0; Pulse Ox 100% on R/A; Pain 07/13; kc4 02:30 BP 135 / 87; Pulse 90; Resp 18; Pulse Ox 99% on R/A; kc4 03:30 BP 141 / 92; Pulse 84; Resp 16; Pulse Ox 100% on R/A; kc4 04:15 BP 127 / 80; Pulse 72; Resp 18; Pulse Ox 99% on R/A; kc4 05:20 BP 127 / 92; Pulse 96; Resp 18; Pulse Ox 99% on R/A; kc4 03/21 22:19 Body Mass Index 30.11 (77.11 kg, 160.02 cm) [facility] MDM: 06:02 Differential diagnosis: bowel obstruction, cholecystitis, Cholelithiasis, mh7 diverticulitis, gastritis, gastroesophageal reflux disease, non-specific abd pain, pancreatitis, Peptic Ulcer Disease, Ureterolithiasis, urinary tract infection. Data reviewed: vital signs, nurses notes, lab test result(s), cardiac enzymes, CBC, electrolytes, urinalysis, EKG, radiologic studies, CT scan, plain films. Data interpreted: Pulse oximetry: on room air is 97 %. Interpretation: normal. Counseling: I had a detailed discussion with the patient and/or guardian regarding: the historical points, exam findings, and any diagnostic results supporting the discharge/admit diagnosis, the presence of at least one elevated blood pressure reading (>120/80) during this emergency department visit, lab results, radiology results, the need for outpatient follow up, to return to the emergency department if symptoms worsen or persist or if there are any questions or concerns that arise at home. Response to treatment: the patient's symptoms have resolved after treatment, the patient's blood pressure is in an acceptable range, mental status has returned to baseline, the patient no longer shows bradycardia, the patient is not short of breath, the patient is not tachycardic, the patient's pain is gone, the patient's temperature has normalized. 06:04 Patient medically screened. [facility] 03/21 22:30 Order name: Basic Metabolic Panel; Complete Time: 00:51 [facility] 03/21 22:30 Order name: CBC with Diff; Complete Time: 00:51 [facility] 03/21 22:30 Order name: Hepatic Function; Complete Time: 00:51 [facility] 03/21 22:30 Order name: Lipase; Complete Time: 00:51 [facility] 03/21 22:37 Order name: Urine Dipstick-Ancillary; Complete Time: 00:51 [facility] 03/22 00:58 Order name: CPK; Complete Time: 03:01 [facility] 03/22 00:58 Order name: Troponin (emerg Dept Use Only); Complete Time: 03:01 [facility] 03/22 00:58 Order name: UDS; Complete Time: 03:01 [facility] 03/22 00:59 Order name: Chest Single View XRAY [facility] 03/22 03:56 Order name: SARS-COV-2 RT PCR; Complete Time: 05:56 [facility] 03/22 04:35 Order name: Blood Culture Adult (2) [facility] 03/21 22:30 Order name: IV Saline Lock; Complete Time: 03:24 [facility] 03/21 22:30 Order name: Labs collected and sent; Complete Time: 23:56 [facility] 03/21 22:32 Order name: Urine Dipstick-Ancillary (obtain specimen); Complete Time: 23:05 [facility] 03/22 01:53 Order name: Chest Abd Pelvis Wo Con EDMS Administered Medications: 01:35 Drug: morphine 4 mg Route: IVP; Site: right antecubital; kc4 03:22 Follow up: Response: No adverse reaction df1 01:35 Drug: Zofran (Ondansetron) 4 mg Route: IVP; Site: right antecubital; kc4 03:22 Follow up: Response: No adverse reaction df1 01:35 Drug: Pepcid (famotidine) 20 mg Route: IVP; Site: right antecubital; kc4 03:22 Follow up: Response: No adverse reaction df1 01:39 Drug: NS 0.9% 1000 ml Route: IV; Rate: 1000 ml; Site: right antecubital; kc4 03:23 Follow up: IV Status: Completed infusion df1 05:26 Drug: Zithromax (azithromycin) 500 mg Route: IVPB; Infused Over: 1 hrs; Site: right mr2 antecubital; 05:59 Follow up: Response: No adverse reaction; IV Status: Completed infusion kc4 05:27 Drug: Rocephin (cefTRIAXone) 1 grams Route: IV; Rate: per protocol; Site: right mr2 antecubital; 05:59 Follow up: Response: No adverse reaction kc4 Disposition Summary: 03/22/21 06:04 Discharge Ordered Location: Home [facility] Problem: new [facility] Symptoms: have improved [facility] Condition: Stable [facility] Diagnosis - Pneumonia 7 - Upper abdominal pain, unspecified 7 Followup: [facility] - With: Private Physician - When: 1 - 2 days - Reason: Worsening of condition, Recheck today's complaints, Continuance of care, Re-evaluation by your physician Discharge Instructions: - Discharge Summary Sheet 7 - Abdominal Pain, Adult, [id number] 7 - Community-Acquired Pneumonia, Adult, [id number] [facility] Forms: - Medication Reconciliation Form 7 - Thank You Letter 7 - Antibiotic Education 7 - Prescription Opioid Use 7 - Work release form tt3 Prescriptions: - albuterol sulfate 90 mcg/actuation Inhalation HFA aerosol inhaler - inhale 1 puff by INHALATION route every 6 hours As needed; 1 Inhaler; Refills: 7 0, Product Selection Permitted - Tessalon Perles 100 mg Oral Capsule - take 1 capsule by ORAL route every 8 hours As needed; 15 capsule; Refills: 0, 7 Product Selection Permitted - Zithromax Z-Percy 250 mg Oral Tablet - take 1 tablet by ORAL route as directed for 5 days Day 1 - take two (2) tablets [facility] one time. Day 2, 3, 4 , 5 take one (1) tablet once daily.; 6 tablet; Refills: 0, Product Selection Permitted Signatures: Dispatcher [employer] EDMS Oni Rodas MD MD mh7 Bina Fernández kc4 Ryan Garcia RN RN mr2 Amita Woody RN RN sj1 Mana Faustin df1 Corrections: (The following items were deleted from the chart) 01:52 01:47 Thorax Wo Con+CT.RAD.BRZ ordered. EDMS EDMS 01:53 01:47 Abdomen Pelvis Wo Con+CT.RAD.BRZ ordered. EDMS EDMS 03:56 03:24 CORONAVIRUS+MR.LAB.BRZ ordered. EDMS EDMS
[2021-03-22 06:37] VITALS: TEMP 98
[2021-03-22 06:43] VITALS: O2SAT 99
[2021-03-22 06:45] VITALS: BP 127/92
--- NOTE | 2021-03-22 07:32 | RAD REPORT ---
EXAM DESCRIPTION: Lux Single View03/22/2021 1:12 am CLINICAL HISTORY: Chest pain COMPARISON: December 2020 FINDINGS: The lungs appear clear of acute infiltrate. The heart is normal size IMPRESSION: No acute abnormalities displayed
--- NOTE | 2021-03-22 18:45 | RAD REPORT ---
EXAM DESCRIPTION: CT - Chest Abd Pelvis Wo Con - 03/22/2021 6:51 am CLINICAL HISTORY: The patient is 30 years old and is Male; PAIN TECHNIQUE: Axial computed tomography images of the chest, abdomen and pelvis without intravenous con trast. Sagittal and coronal reformatted images were created and reviewed. This CT exam was perfor med using one or more of the following dose reduction techniques: automated exposure control, adjus tment of the mA and/or kV according to patient size, and/or use of iterative reconstruction technique . COMPARISON: No relevant prior studies available. FINDINGS: CHEST: LUNGS: Subtle area of rounded groundglass opacity within the left upper lobe is noted. The lungs are otherwise clear. The tracheobronchial tree is widely patent. PLEURAL SPACE: Unremarkable. No significant effusion. No pneumothorax. HEART: No cardiomegaly. No pericardial effusion. ABDOMEN: LIVER: The liver is enlarged and diffusely fatty. GALLBLADDER AND BILE DUCTS: The gallbladder is physiologically distended. No calcified gallstones or ductal dilatation is seen. PANCREAS: Unremarkable. No ductal dilation. SPLEEN: Unremarkable. ADRENALS: Unremarkable. No mass. KIDNEYS AND URETERS: No obstructing stones. No hydronephrosis. No perinephric fluid. STOMACH AND BOWEL: Stomach is not well distended. The small bowel is relatively normal in caliber . Stool is present throughout colon. There is no mucosal thickening or evidence of bowel obstruction. PELVIS: APPENDIX: No findings to suggest acute appendicitis. BLADDER: The bladder is well distended. No stones. REPRODUCTIVE: Unremarkable as visualized. CHEST, ABDOMEN and PELVIS: INTRAPERITONEAL SPACE: Unremarkable. No significant fluid collection. No free air. BONES/JOINTS: Suggestion of bony infarct within the proximal right femur is noted. There is no ac hopi fracture of the visualized axial and appendicular skeleton. SOFT TISSUES: The soft tissues are normal. VASCULATURE: Unremarkable. No aortic aneurysm. LYMPH NODES: Unremarkable. No enlarged lymph nodes. IMPRESSION: 1. Few foci of rounded groundglass infiltrate within the left upper lobe which may be secondary to a subtle infectious process. 2. No bowel obstruction. No renal or ureteral calculi. Electronically signed by: Taylor Heath MD 03/22/2021 3:08 AM CDT Due to temporary technical issues with the PACS/Fluency reporting system, reports are being signed by the in house radiologists without review as a courtesy to insure prompt reporting. The interpreting radiologist is fully responsible for the content of the report.
== END 2021-03-22 06:29 | disposition home or self-care (01) ==
LOC: ER 22:10
DX: J18.9 Pneumonia, unspecified organism (principal); Z20.822 Contact with and (suspected) exposure to COVID-19
CPT/HCPCS: 36415; 71045; 71250; 74176; 80048; 80076; 80307; 81003; 82550; 83690; 84484; 85025; 87040; 93005; J0456; J2405; J7030; J7050; U0003

== ENCOUNTER 2021-05-12 01:25 | Emergency (ER) | payer SELFPAY ==
--- OUTSIDE RECORDS SUMMARY | 2021-05-12 01:30 | XMS REPORT | Continuity of Care Document ---
:1990 Author Organization [facility] t Address [address] [place] [address] Care Team Providers Name Role Phone Asked, No Pcp Primary Care Physician Unavailable Milagro Alves MD Attending Clinician DR Dennise DUMONT Attending Clinician Unavailable Karl Wilkins MD Attending Clinician SAMI SOARES Attending Clinician Unavailable KAMILLE SAMUELS Attending Clinician Unavailable GODFREY HOLLINGSWORTH Attending Clinician Unavailable JHOANA BERMEO Attending Clinician Unavailable DR MARNIE Attending Clinician Unavailable DR JESSY Attending Clinician Unavailable DR Kendell JIMÉNEZ Attending Clinician Unavailable Carlie SMITH Attending Clinician Unavailable DR Dennise DUMONT Admitting Clinician Unavailable DR MARNIE Admitting Clinician [...] Comments Source Sex Assigned At [birth year] [facility] 00:00:00 00:00:00 Smoking Status Start Date Stop Date Source Unknown if ever smoked [facility] Medications This patient has no known medications. Immunizations Ordered Immunization Filled Immunization Date Status Commen ts Source Name Name PFIZER COVID-19 MRNA 2021-02-02 Completed Meth odist VACCINATION 00:00:00 Hospital PFIZER COVID-19 MRNA 2021-01-12 Completed Meth odist VACCINATION 00:00:00 Hospital Procedures Procedure Date / Time Performed Performing Clinician [facility] e COVID-19 QUALITATIVE 2020-04-27 20:45:00 Juan Jose Wilkins [facility] RT-PCR Plan of Care Planned Activity Planned Date Details Comments Source Future Scheduled Test INFLUENZA VACCINE [facility] [code = INFLUENZA VACCINE] Future Scheduled Test COVID-19 VACCINE (1) [facility] [code = COVID-19 VACCINE (1)] Future Scheduled Test INFLUENZA VACCINE [facility] [code = INFLUENZA VACCINE] Future Scheduled Test Hepatitis C screening [facility] (procedure) [code = 492539249] Encounters Start End Encounter Admission Attending Care Care Encounter Source Date/Time Date/Time Type Type Clinicians Facility Department ID 2021-02-02 2021-02-02 Clinical Septjoslyn, 1.2.840.1 [id number] [facility] 08:59:25 09:04:25 Support Deangelo Sweeney50.1.[address] 3.430.2.7 Hospit a .3.747941 l .8 2021-01-12 2021-01-12 Clinical 1.2.840.1 [id number] [facility] 08:08:25 08:13:[id number] 3.430.2.7 Hospit a .3.709259 l .8 2020-05-28 2020-05-28 [facility] [id number] [facility] 05:09:00 08:44:00 [facility] 2020-04-27 2020-04-27 Lab Mala Wilkins2.840.1 [id number] [facility] 14:20:42 14:25:42 Juan Jose [address]57.[address] Karl 3.430.2.7 Hospit a .3.637175 l .8 2020-01-25 2020-01-25 Emergency E CESAR SOARES [facility] [id number] [facility] 00:08:00 04:40:00 2019-07-18 2019-07-18 Emergency E ARVIND [facility] 7512 [facility] 14:06:00 15:00:00 DANTE 2019-07-08 2019-07-08 Outpatient DARRICK, [facility] [id number] [facility] 17:00:00 23:59:00 JERMAIN 2019-07-08 2019-07-08 Emergency E ELVIE, [facility] 7511 [facility] 17:22:00 19:01:00 ANGEL 2017-07-03 2017-07-03 Outpatient [facility] [id number] [place] 00:00:00 00:00:00 [facility] 2017-06-28 2017-06-29 Outpatient HCSO [facility] [id number] [place] 00:00:00 00:00:00 [facility] 2017-06-23 2017-06-23 Emergency E GERRI DYE [facility] [id number] [place] 11:52:00 13:51:00 [facility] 2017-06-21 2017-06-22 Emergency E JESSY [facility] [id number] [place] 23:24:00 02:15:00 [facility] 2016-11-09 2016-11-09 Emergency E TESHA JIMÉNEZ [facility] [id number] [place] 12:10:00 13:05:00 [facility] Results [...] the FDA and the [employer] (CAP) are more stringent than those required for this test. Therefore, the result should be interpreted with caution and close attention to other clinical and epidemiological data [id number] 07:38:00 Test Item Value Reference Range Interpretation [...] code = LEUK) NEGATIVE NEGATIVE BRAIN NATRIURETIC [id number] 06:26:00 Test Item Value Reference Range Interpretation Comments proBNP (test code = PBNP) 20 pg/mL 0-125 AMYLASE AND [id number] 06:24:00 Test Item Value Reference Range Interpretation Comments AMYLASE (test code = 10A) 55 U/L 28-100 LIPASE (test code = 60A) 221 IU/L 73-393 [id number] 06:24:00 Test Item Value Reference Range Interpretation Comments CPK (test code = 32A) 100 IU/L 39-308 COMPREHENSIVE METABOLIC [id number] 06:24:00 Test Item Value Reference Range Interpretation [...] code = 31A) 59 IU/L <=78 LDH-LACTIC [id number] 06:23:00 Test Item Value Reference Range Interpretation Comments LDH (test code = 33A) 195 IU/L 100-190 H [id number] 06:23:00 Test Item Value Reference Range Interpretation Comments FERRITIN (test code = A19) 122.3 ng/mL 26.0-388.0 TROPONIN [id number] 06:21:00 Test Item Value Reference Range Interpretation Comments TROPONIN I (test code = A84) <0.015 ng/mL 0.000-0.045 [id number] 06:18:00 Test Item Value Reference Range Interpretation Comments MAGNESIUM (test code = 48A) 2.2 mg/dL 1.8-2.4 C-REACTIVE PROTEIN [id number] 06:17:00 Test Item Value Reference Range Interpretation Comments CRP QUANT (test code <2.9 mg/L 0.0-2.9 = CRPQ) Method Change (test Please note the code = METHOD) change in Method and the reference range DIRECT INFLUENZA A AND B [id number] 06:16:00 Test Item Value Reference Range Interpretation Comments Direct Exam (test PRESUMPTIVE NEGATIVE FOR code = DE1) THE PRESENCE OF INFLUENZA ANTIGEN PRO TIME AND [id number] 06:12:00 Test Item Value Reference Range Interpretation [...] or LMW Heparin. Order Code is ANTI-XA [id number] 06:12:00 Test Item Value Reference Range Interpretation Comments D-DIMER (test code = <200 ng/mL D-DU 0-234 DDI) D-DIMER COMMENT (test *Level to rule out code = DDCOM) DVT or PE: <235 ng/mL D-DU* Venous Blood [id number] 06:03:00 Test Item Value Reference Range Interpretation Comments VpH (test code = 7.383 7.300-7.400 VPHRT) VpCO2 (test code = 46.0 mmHg 40.0-50.0 DYUY7HM) VpO2 (test code = 55.5 mmHg 30.0-40.0 H VPO2RT) HCO3? (test code = 26.8 mmol/L 22.0-26.0 H HCO3) RADHA (test code = RADHA) 1.7 mmol/L -3.0-3.0 tHb (test code = 15.1 g/dL 14.0-18.0 THBRT) vsO2 (test code = 90.7 % 55.0-75.0 H VSO2RT) FO2Hb (test code = 86.2 % UK0DXRUL) FCOHb (test code = 3.5 % FCOHBRTV) FMetHb (test code = 1.4 % FMETHBRTV) ABGTEMP (test code = * Temp Corrected Values* ABGTEMP) ABGTEMP (test code = 37.0 ?C ABGTEMP.) pH (T) (test code = 7.383 7.300-7.400 PHTEMPV) pCO2 (T) (test code = 46.0 mmHg 40.0-50.0 HKF2BHSSO) pO2 (T) (test code = 55.5 mmHg 30.0-40.0 H CY7UIPUV) Device (test code = ROOM AIR DEVICE) [...] (test code = RBCMOR) NORMAL COVID-19 qualitative [id number] 05:07:48 Test Item Value Reference Range Interpretation Comments Interpretation (test Negative results do code = 6489980) not preclude 2019-nCoV infection and should not be used as the sole basis for treatment or other patient management decisions. Negative results must be combined with clinical observations, patient history, and epidemiological information. COVID-19 qualitative Not-Detected Not-Detected RT-PCR result (test code = 63179-9) COVID-19 qualitative See link below for C ase Number: RT-PCR (test code = PDF Lab Report [id number]) [facility] METABOLIC PANEL *WW*2017-06-23 13:15:00 Test Item Value [...] 09D) 8.8 mg/dL 8.3-9.5 CBC (INCLUDES AUTOMATED DIFFERENTIAL)*[id number] 13:04:00 Test Item Value Reference Range Interpretation [...] 2 VIEW *WW*2017-06-23 12:51:56Exam: Chest 2 viewsLocation: D1Irxohoo: cough, recent pneumonia.Comparison: 10/23/2016.Findings:The lungs are clear. Central peribronchial cuffing is present. No infiltrate oreffusion is seen. The pulmonary vasculature is normal. The heart size isnormal. The mediastinal silhouette is unremarkable. Thebony thorax is intact.Impression:Bronchitis .CT STONE PROTOCOL [id number] 01:06:08AFTER HOURS SERVICE ON: 06/22/2017 1:03 AMCT Scan of the Abdomen and Pelvis Without ContrastLocation Code [id number]: L flank painTechnique: Axial and reconstructed coronal [...] Noinflammatory changes seen.U/S TESTICULAR 2017-06-22 00:58:11U/S TESTICULARLocation: Y4Lzswu hours services provided 06/22/2017 12:56 AMIndication: L [...] with no acute testicular or epididymalabnormality.AMYLASE AND [id number] 00:33:00 Test Item Value Reference Range Interpretation Comments AMYLASE (test code = 10A) 65 U/L 28-100 LIPASE (test code = 60A) 140 IU/L 73-393 COMPREHENSIVE METABOLIC [id number] 00:33:00 Test Item Value Reference Range Interpretation [...] (test code = 31A) 29 IU/L <=78 [id number] 00:31:00 Test Item Value Reference Range Interpretation [...] 60A) 100 IU/L 73-393 CBC (INCLUDES AUTOMATED DIFFERENTIAL)*[id number] 14:19:00 Test Item Value Reference Range Interpretation [...] NORMAL WRBCMOR) XR CHEST 1 VIEW PORTABLE *WW*2016-10-23 13:51:45Portable AP chest, 1 viewLocation Code: [id number] HISTORY: Abdominal painCOMPARISON: 07/14/2013COMMEN T: The lungs are clear and well inflated. The costophrenic angles are sharp. Thecardiomediastinal silhouette is unremarkable. The bones are intact.IMPRESSION: Stable chest with no acute abnormality.CT ABDOMEN AND PELVIS WITHOUT CONTRAST *WW*2016-10-23 13:50:29CT abdomen and pelvis without contrastLocation Code: [id number] HISTORY: Abdominal painCOMPARISON: 03/2017Technique: Helical CT of [...] no acute abnormality.CT ABDOMEN AND PELVIS WITH [id number] 21:28:44CT abdomen and pelvis with contrastLocation Code: [id number] HISTORY: Abdominal painCOMPARISON: 07/18/13, 07/13/13Technique: Helical CT [...] No acute intra-abdominal or pelvic abnormality.DRUGS OF [id number] 21:03:00 Test Item Value Reference Range Interpretation [...] 200 ng/mL Opiates 2000 ng/mL URINALYSIS WITH [id number] 20:50:00 Test Item Value Reference Range Interpretation [...] code = USPERM) /HPF NONE AMYLASE AND [id number] 20:44:00 Test Item Value Reference Range Interpretation Comments AMYLASE (test code = 10A) 46 U/L 28-100 LIPASE (test code = 60A) 128 IU/L 73-393 COMPREHENSIVE METABOLIC [id number] 20:44:00 Test Item Value Reference Range Interpretation [...]
[2021-05-12] MEDS ORDERED: HYDROCODONE/APAP 5/325 MG TAB ONE (02:53)
[2021-05-12] MEDS ORDERED: dexAMETHasone 10 MG/ML VIAL ONE (02:53)
[2021-05-12] MEDS ORDERED: KETOROLAC 30 MG/ML INJ ONE (02:54)
--- NOTE | 2021-05-12 03:20 | EDPHYS ---
Physician Documentation [facility] Name: Chico Leon Age: 30 yrs Sex: Male : 1990 Arrival Date: 05/12/2021 Time: 01:29 Bed 13 Private MD: ED Physician Ritesh Garcia HPI: 05/12 03:15 This 30 yrs old Male presents to ER via Ambulatory with complaints of rn Toothache. 03:15 The patient presents with broken tooth/teeth, pain. The problem is located in the Right rn upper molar. Onset: The symptoms/episode began/occurred 2 day(s) ago. Duration: The symptoms are continuous. Modifying factors: The symptoms are alleviated by nothing, the symptoms are aggravated by chewing, cold fluids. Associated signs and symptoms: Pertinent positives: pain, Pertinent negatives: fever, inability to eat, redness in area. Severity of symptoms: At their worst the symptoms were moderate, in the emergency department the symptoms are unchanged. The patient has not experienced similar symptoms in the past. The patient has not recently seen a physician. Patient reports cracked and broken tooth for a couple days now having significant pain, no swelling, no drainage, no fever. plans to see dentist in the morning but states has been up all night and has not slept in 2 nights due to the pain.. - Immunization history:: Client reports receiving the 2nd dose of the Covid vaccine. - Social history:: Smoking status: Patient reports the use of cigarette tobacco products, Patient denies any tobacco usage or history of. - Family history:: not pertinent. - Hospitalizations: : No recent hospitalization is reported. ROS: 03:15 Constitutional: Negative for fever, chills, and weight loss, ENT: Positive for dental rn pain Exam: 03:15 Constitutional: This is a well developed, well nourished patient who is awake, alert, rn appears uncomfortable, pacing in room Head/Face: Normocephalic, atraumatic. Eyes: Periorbital areas with no swelling, redness, or edema. ENT: Poor dentition, cracked tooth right upper molar with half of the tooth missing, no swelling, no drainage, no bleeding Vital Signs: 01:34 BP 152 / 96; Pulse 69; Resp 18; Temp 98.1; Pulse Ox 99% on R/A; Weight 81.65 kg; Height da3 5 ft. 3 in. (160.02 cm); 01:34 Body Mass Index 31.89 (81.65 kg, 160.02 cm) da3 MDM: 02:31 Patient medically screened. rn 03:18 Differential diagnosis: dental caries, Broken tooth. Data reviewed: vital signs, nurses rn notes, and as a result, I will discharge patient. Counseling: I had a detailed discussion with the patient and/or guardian regarding: the historical points, exam findings, and any diagnostic results supporting the discharge/admit diagnosis, the need for outpatient follow up, to return to the emergency department if symptoms worsen or persist or if there are any questions or concerns that arise at home. Response to treatment: the patient's symptoms have markedly improved after treatment, and as a result, I will discharge patient. Special discussion: I discussed with the patient/guardian in detail that at this point there is no indication for admission to the hospital. It is understood, however, that if the symptoms persist or worsen the patient needs to return immediately for re-evaluation. Based on the history and exam findings, there is no indication for further emergent testing or inpatient evaluation. I discussed with the patient/guardian the need to see a dentist for further evaluation of the symptoms. ED course: Offered patient nerve block, declines, states medication given is helping already.. 05/12 02:43 Order name: IV Start; Complete Time: 03:10 rn Administered Medications: 02:57 Drug: HYDROcodone-acetaminophen 5 mg-325 mg 1 tabs Route: PO; lp1 03:35 Follow up: Response: No adverse reaction lp1 03:10 Drug: Decadron - Dexamethasone 10 mg Route: IVP; Site: left antecubital; lp1 03:35 Follow up: Response: No adverse reaction lp1 03:10 Drug: Ketorolac 30 mg Route: IVP; Site: left antecubital; lp1 03:35 Follow up: Response: No adverse reaction lp1 Disposition Summary: 05/12/21 03:20 Discharge Ordered Location: Home rn Problem: new rn Symptoms: have improved rn Condition: Stable rn Diagnosis - Dental caries, unspecified rn Followup: rn - With: Private Physician - When: As needed - Reason: Recheck today's complaints, Re-evaluation by your physician Discharge Instructions: - Discharge Summary Sheet rn - Dental Caries, Adult rn - Dental Pain rn Forms: - Medication Reconciliation Form rn - Thank You Letter rn - Antibiotic human resource intern - Prescription Opioid Use rn - Work release form lp1 Prescriptions: - Medrol (Percy) 4 mg Oral Tablets, Dose Pack - take 1 tablet by ORAL route as directed - follow package instructions; 1 rn packet; Refills: 0, Product Selection Permitted Signatures: Ritesh Garcia MD MD rn Pena, Laura, RN RN lp1 Juan Jose Fraser RN RN da3
--- NOTE | 2021-05-12 03:20 | ER ---
Nurse's Notes [facility] Name: Chico Leon Age: 30 yrs Sex: Male : 1990 Arrival Date: 05/12/2021 Time: 01:29 Bed 13 Private MD: Diagnosis: Dental caries, unspecified Presentation: 05/12 01:34 Chief complaint: Patient states: right upper tooth pain. Coronavirus screen: Vaccine da3 status:. Ebola Screen: No symptoms or risks identified at this time. Initial Sepsis Screen: Does the patient meet any 2 criteria? No. Patient's initial sepsis screen is negative. Risk Assessment: Do you want to hurt yourself or someone else? Patient reports no desire to harm self or others. Onset of symptoms was May 11, 2021 at 15:00. :34 Method Of Arrival: Ambulatory da3 :34 Acuity: RADHA 4 da3 03:00 Initial Sepsis Screen: Does the patient have a suspected source of infection? No. lp1 Patient's initial sepsis screen is negative. Triage Assessment: :34 General: Appears in no apparent distress. uncomfortable, Behavior is calm, cooperative. da3 Pain: Complains of pain in mouth Pain currently is 10 out of 10 on a pain scale. - Immunization history:: Client reports receiving the 2nd dose of the Covid vaccine. - Social history:: Smoking status: Patient reports the use of cigarette tobacco products, Patient denies any tobacco usage or history of. - Family history:: not pertinent. - Hospitalizations: : No recent hospitalization is reported. Screenin:30 Abuse screen: Denies threats or abuse. Denies injuries from another. Nutritional lp1 screening: No deficits noted. Tuberculosis screening: No symptoms or risk factors identified. Fall Risk None identified. Assessment: 03:00 General: Appears uncomfortable, Behavior is restless, pacing in room. Pain: Complains lp1 of pain in right jaw Pain currently is 10 out of 10 on a pain scale. Quality of pain is described as stabbing, throbbing. Neuro: Level of Consciousness is awake, alert, obeys commands, Oriented to person, place, time, situation. Cardiovascular: Patient's skin is warm and dry. Respiratory: Respiratory effort is even, unlabored. GI: Reports nausea. : No signs and/or symptoms were reported regarding the genitourinary system. EENT: Poor dentition noted. Reports pain in right cheek and right jaw. Derm: Skin is pink, warm \T\ dry. Musculoskeletal: No deficits noted. 03:30 Reassessment: Patient is alert, oriented x 3, equal unlabored respirations, skin lp1 warm/dry/pink. Patient states feeling better. Vital Signs: 01:34 BP 152 / 96; Pulse 69; Resp 18; Temp 98.1; Pulse Ox 99% on R/A; Weight 81.65 kg; Height da3 5 ft. 3 in. (160.02 cm); 01:34 Body Mass Index 31.89 (81.65 kg, 160.02 cm) da3 ED Course: 01:29 Patient arrived in ED. wm 01:37 Triage completed. da3 02:30 Ritesh Garcia MD is Attending Physician. rn 02:45 Chrissy Otero RN is Primary Nurse. lp1 03:00 Patient has correct armband on for positive identification. lp1 03:00 Arm band placed on. lp1 03:10 Missed attempt(s): 22 gauge in right antecubital area. Inserted saline lock: 22 gauge lp1 in left antecubital area, using aseptic technique. 03:30 No provider procedures requiring assistance completed. IV discontinued, No lp1 redness/swelling at site. Pressure dressing applied. Administered Medications: 02:57 Drug: HYDROcodone-acetaminophen 5 mg-325 mg 1 tabs Route: PO; lp1 03:35 Follow up: Response: No adverse reaction lp1 03:10 Drug: Decadron - Dexamethasone 10 mg Route: IVP; Site: left antecubital; lp1 03:35 Follow up: Response: No adverse reaction lp1 03:10 Drug: Ketorolac 30 mg Route: IVP; Site: left antecubital; lp1 03:35 Follow up: Response: No adverse reaction lp1 Outcome: 03:20 Discharge ordered by . rn 03:35 Discharged to home ambulatory. lp1 03:35 Condition: good 03:35 Discharge instructions given to patient, Instructed on discharge instructions, follow up and referral plans. medication usage, Demonstrated understanding of instructions, follow-up care, medications, Prescriptions given X 1. 03:41 Patient left the ED. lp1 Signatures: Ritesh Garica MD MD rn Pena, Laura, RN RN lp1 Jessica Davis David RN RN da3 Corrections: (The following items were deleted from the chart) 04:53 03:00 EENT: Poor dentition noted. lp1 lp1
[2021-05-12 04:09] VITALS: BP 152/96; TEMP 98.1; O2SAT 99
== END 2021-05-12 03:41 | disposition home or self-care (01) ==
LOC: ER 01:25
DX: K02.9 Dental caries, unspecified (principal); Z72.0 Tobacco use
CPT/HCPCS: 96374; 96375; 99283; J1100

== ENCOUNTER 2021-06-12 02:36 | Emergency (ER) | payer SELFPAY ==
--- OUTSIDE RECORDS SUMMARY | 2021-06-12 02:39 | XMS REPORT | Continuity of Care Document ---
:1990 Author Organization [facility] t Address [address] [place] [address] Care Team Providers Name Role Phone Asked, No Pcp Primary Care Physician Unavailable DR Dennise DUMONT Attending Clinician Unavailable Karl Wilkins MD Attending Clinician SAMI SOARES Attending Clinician Unavailable KAMLILE SAMEULS Attending Clinician Unavailable GODFREY HOLLINGSWORTH Attending Clinician [...] Comments Source Sex Assigned At [birth year] [facility] 00:00:00 00:00:00 Smoking Status Start Date Stop Date Source Unknown if ever smoked [facility] Medications This patient has no known medications. Procedures Procedure Date / Time Performed Performing Clinician Sourc e COVID-19 QUALITATIVE 2020-04-27 20:45:00 Juan Jose Wilkins [facility] RT-PCR Plan of Care Planned Activity Planned Date Details Comments Source Future Scheduled Test COVID-19 VACCINE (1) [facility] [code = COVID-19 VACCINE (1)] Future Scheduled Test INFLUENZA VACCINE [facility] [code = INFLUENZA VACCINE] Encounters Start End Encounter Admission Attending Care Care Encounter Source Date/Time Date/Time Type Type Clinicians Facility Department ID 2020-05-28 2020-05-28 Emergency E TIM, [facility] [id number] [facility] 05:09:00 08:44:00 [facility] 2020-04-27 2020-04-27 Artur Patti Wilkins.[id number] [facility] 14:20:42 14:25:42 Juan Jose [id number] 253 [facility] [id number] Hospit a [id number] l .8 2020-01-25 2020-01-25 Emergency E CESAR SOARES [facility] 7513 [facility] 00:08:00 04:40:00 2019-07-18 2019-07-18 Emergency E ARVIND [facility] 7512 [facility] 14:06:00 15:00:00 DANTE 2019-07-08 2019-07-08 Outpatient BOSTONCAMERON, [facility] [id number] [facility] 17:00:00 23:59:00 JERMAIN 2019-07-08 2019-07-08 Emergency E BERMEO, [facility] [id number] [facility] 17:22:00 19:01:00 ANGEL 2017-07-03 2017-07-03 Out[facility] [id number] [place] 00:00:00 00:00:00 [facility] Office 2017-06-28 2017-06-29 [facility] [id number] [place] 00:00:00 00:00:00 [facility] Office 2017-06-23 2017-06-23 Emergency E JOLLY DYEG [facility] [id number] [place] 11:52:00 13:51:00 Medica l Wil[facility] 2017-06-21 2017-06-22 Emergency E JESSY [facility] [id number] [facility] 23:24:00 02:15:00 [facility] 2016-11-09 2016-11-09 Emergency E TESHA JIMÉNEZ [facility] [id number] [facility] 12:10:00 13:05:00 [facility] Results Test Description Test Time Test Comments [...] the FDA and the [employer] (CAP) are more stringent than those required for this test. Therefore, the result should be interpreted with caution and close attention to other clinical and epidemiological data [id number] 07:38:00 Test Item Value Reference Range Interpretation [...] code = LEUK) NEGATIVE NEGATIVE BRAIN NATRIURETIC [id number] 06:26:00 Test Item Value Reference Range Interpretation Comments proBNP (test code = PBNP) 20 pg/mL 0-125 AMYLASE AND [id number] 06:24:00 Test Item Value Reference Range Interpretation Comments AMYLASE (test code = 10A) 55 U/L 28-100 LIPASE (test code = 60A) 221 IU/L 73-393 [id number] 06:24:00 Test Item Value Reference Range Interpretation Comments CPK (test code = 32A) 100 IU/L 39-308 COMPREHENSIVE METABOLIC [id number] 06:24:00 Test Item Value Reference Range Interpretation [...] code = 31A) 59 IU/L <=78 LDH-LACTIC [id number] 06:23:00 Test Item Value Reference Range Interpretation Comments LDH (test code = 33A) 195 IU/L 100-190 H [id number] 06:23:00 Test Item Value Reference Range Interpretation Comments FERRITIN (test code = A19) 122.3 ng/mL 26.0-388.0 TROPONIN [id number] 06:21:00 Test Item Value Reference Range Interpretation Comments TROPONIN I (test code = A84) <0.015 ng/mL 0.000-0.045 [id number] 06:18:00 Test Item Value Reference Range Interpretation Comments MAGNESIUM (test code = 48A) 2.2 mg/dL 1.8-2.4 C-REACTIVE PROTEIN [id number] 06:17:00 Test Item Value Reference Range Interpretation Comments CRP QUANT (test code <2.9 mg/L 0.0-2.9 = CRPQ) Method Change (test Please note the code = METHOD) change in Method and the reference range DIRECT INFLUENZA A AND B [id number] 06:16:00 Test Item Value Reference Range Interpretation Comments Direct Exam (test PRESUMPTIVE NEGATIVE FOR code = DE1) THE PRESENCE OF INFLUENZA ANTIGEN PRO TIME AND [id number] 06:12:00 Test Item Value Reference Range Interpretation [...] or LMW Heparin. Order Code is ANTI-XA [id number] 06:12:00 Test Item Value Reference Range Interpretation Comments D-DIMER (test code = <200 ng/mL D-DU 0-234 DDI) D-DIMER COMMENT (test *Level to rule out code = DDCOM) DVT or PE: <235 ng/mL D-DU* Venous Blood [id number] 06:03:00 Test Item Value Reference Range Interpretation Comments VpH (test code = 7.383 7.300-7.400 VPHRT) VpCO2 (test code = 46.0 mmHg 40.0-50.0 HLTN5YU) VpO2 (test code = 55.5 mmHg 30.0-40.0 H VPO2RT) HCO3? (test code = 26.8 mmol/L 22.0-26.0 H HCO3) RADHA (test code = RADHA) 1.7 mmol/L -3.0-3.0 tHb (test code = 15.1 g/dL 14.0-18.0 THBRT) vsO2 (test code = 90.7 % 55.0-75.0 H VSO2RT) FO2Hb (test code = 86.2 % EM1YUSSF) FCOHb (test code = 3.5 % FCOHBRTV) FMetHb (test code = 1.4 % FMETHBRTV) ABGTEMP (test code = * Temp Corrected Values* ABGTEMP) ABGTEMP (test code = 37.0 ?C ABGTEMP.) pH (T) (test code = 7.383 7.300-7.400 PHTEMPV) pCO2 (T) (test code = 46.0 mmHg 40.0-50.0 EZZ6QARFI) pO2 (T) (test code = 55.5 mmHg 30.0-40.0 H SI8VUMBH) Device (test code = ROOM AIR DEVICE) [...] (test code = RBCMOR) NORMAL COVID-19 qualitative [id number] 05:07:48 Test Item Value Reference Range Interpretation Comments Interpretation (test Negative results do code = 2908047) not preclude 2019-nCoV infection and should not be used as the sole basis for treatment or other patient management decisions. Negative results must be combined with clinical observations, patient history, and epidemiological information. COVID-19 qualitative Not-Detected Not-Detected RT-PCR result (test code = 46908-2) COVID-19 qualitative See link below for C ase Number: RT-PCR (test code = PDF Lab Report [id number]) [facility] METABOLIC PANEL *WW*2017-06-23 13:15:00 Test Item Value [...] 09D) 8.8 mg/dL 8.3-9.5 CBC (INCLUDES AUTOMATED DIFFERENTIAL)*[id number] 13:04:00 Test Item Value Reference Range Interpretation [...] 2 VIEW *WW*2017-06-23 12:51:56Exam: Chest 2 viewsLocation: H2Fzcbtim: cough, recent pneumonia.Comparison: 10/23/2016.Findings:The lungs are clear. Central peribronchial cuffing is present. No infiltrate oreffusion is seen. The pulmonary vasculature is normal. The heart size isnormal. The mediastinal silhouette is unremarkable. Thebony thorax is intact.Impression:Bronchitis .CT STONE PROTOCOL [id number] 01:06:08AFTER HOURS SERVICE ON: 06/22/2017 1:03 AMCT Scan of the Abdomen and Pelvis Without ContrastLocation Code [id number]: L flank painTechnique: Axial and reconstructed coronal [...] Noinflammatory changes seen.U/S TESTICULAR 2017-06-22 00:58:11U/S TESTICULARLocation: S3Uwekq hours services provided 06/22/2017 12:56 AMIndication: L [...] with no acute testicular or epididymalabnormality.AMYLASE AND [id number] 00:33:00 Test Item Value Reference Range Interpretation Comments AMYLASE (test code = 10A) 65 U/L 28-100 LIPASE (test code = 60A) 140 IU/L 73-393 COMPREHENSIVE METABOLIC [id number] 00:33:00 Test Item Value Reference Range Interpretation [...] (test code = 31A) 29 IU/L <=78 [id number] 00:31:00 Test Item Value Reference Range Interpretation [...] 60A) 100 IU/L 73-393 CBC (INCLUDES AUTOMATED DIFFERENTIAL)*[id number] 14:19:00 Test Item Value Reference Range Interpretation [...] 2016-10-23 13:51:45Portable AP chest, 1 viewLocation Code: [id number] HISTORY: Abdominal painCOMPARISON: 07/14/2013COMMEN T: The lungs are clear and well inflated. The costophrenic angles are sharp. Thecardiomediastinal silhouette is unremarkable. The bones are intact.IMPRESSION: Stable chest with no acute abnormality.CT ABDOMEN AND PELVIS WITHOUT CONTRAST 2016-10-23 13:50:29CT abdomen and pelvis without contrastLocation Code: [id number] HISTORY: Abdominal painCOMPARISON: 03/2017Technique: Helical CT of [...] no acute abnormality.CT ABDOMEN AND PELVIS WITH [id number] 21:28:44CT abdomen and pelvis with contrastLocation Code: [id number] HISTORY: Abdominal painCOMPARISON: 07/18/13, 07/13/13Technique: Helical CT [...] No acute intra-abdominal or pelvic abnormality.DRUGS OF [id number] 21:03:00 Test Item Value Reference Range Interpretation [...] 200 ng/mL Opiates 2000 ng/mL URINALYSIS WITH [id number] 20:50:00 Test Item Value Reference Range Interpretation [...] code = USPERM) /HPF NONE AMYLASE AND [id number] 20:44:00 Test Item Value Reference Range Interpretation Comments AMYLASE (test code = 10A) 46 U/L 28-100 LIPASE (test code = 60A) 128 IU/L 73-393 COMPREHENSIVE METABOLIC [id number] 20:44:00 Test Item Value Reference Range Interpretation [...]
--- NOTE | 2021-06-12 03:38 | ER ---
Nurse's Notes [facility] Name: Chico Leon Age: 30 yrs Sex: Male : 1990 Arrival Date: 06/12/2021 Time: 02:38 Bed 13 Private MD: Diagnosis: Dental caries, unspecified;Cracked tooth Presentation: 06/12 02:46 Chief complaint: Patient states: right sided tooth pain. states he cracked it and is lg3 supposed to have it removed this morning but cannot handle the pain any longer. No medications taken at home. Coronavirus screen: Client denies travel out of the [place] in the last 14 days. At this time, the client does not indicate any symptoms associated with coronavirus-19. Ebola Screen: No symptoms or risks identified at this time. Initial Sepsis Screen: Does the patient meet any 2 criteria? No. Patient's initial sepsis screen is negative. Does the patient have a suspected source of infection? No. Patient's initial sepsis screen is negative. Risk Assessment: Do you want to hurt yourself or someone else? Patient reports no desire to harm self or others. Onset of symptoms was June 11, 2021. 02:46 Method Of Arrival: Ambulatory lg3 02:46 Acuity: RADHA 5 lg3 Triage Assessment: 02:51 General: Appears uncomfortable, Behavior is calm, cooperative. Pain: Complains of pain lg3 in right sided tooth. EENT: Reports pain. Neuro: Level of Consciousness is awake, alert, obeys commands, Oriented to person, place, time, situation. Cardiovascular: Capillary refill < 3 seconds JVD Patient's skin is warm and dry. Respiratory: Airway is patent Trachea midline Respiratory effort is even, unlabored, Respiratory pattern is regular, symmetrical. GI: No deficits noted. No signs and/or symptoms were reported involving the gastrointestinal system. : No deficits noted. No signs and/or symptoms were reported regarding the genitourinary system. Derm: No deficits noted. No signs and/or symptoms reported regarding the dermatologic system. Musculoskeletal: No deficits noted. No signs and/or symptoms reported regarding the musculoskeletal system. Historical: - Allergies: 02:51 No Known Allergies; lg3 - Home Meds: 02:51 None [Active]; lg3 - PMHx: 02:51 Anxiety; Bipolar disorder; Depression; Pancreatitis; PTSD; Schizophrenia; Borderline; lg3 Seizures; - PSHx: 02:51 Appendectomy; lg3 - Immunization history:: Adult Immunizations up to date, Client reports receiving the 2nd dose of the Covid vaccine, moderna x2. - Social history:: Smoking status: Patient reports the use of cigarette tobacco products, smokes two packs cigarettes per day. - Family history:: not pertinent. Screenin:02 Abuse screen: Denies threats or abuse. Nutritional screening: No deficits noted. lg3 Tuberculosis screening: No symptoms or risk factors identified. Fall Risk None identified. Assessment: 03:02 General: Appears uncomfortable, Behavior is calm, cooperative. Pain: Complains of pain lg3 in right sided tooth pain Pain currently is 10 out of 10 on a pain scale. Pain began 1 day ago. Neuro: Level of Consciousness is awake, alert, obeys commands, Oriented to person, place, time, situation, Speech is normal, Facial symmetry appears normal. Cardiovascular: Capillary refill < 3 seconds JVD is absent Patient's skin is warm and dry. Respiratory: Airway is patent Trachea midline Respiratory effort is even, unlabored, Respiratory pattern is regular, symmetrical. GI: No deficits noted. No signs and/or symptoms were reported involving the gastrointestinal system. : No deficits noted. No signs and/or symptoms were reported regarding the genitourinary system. EENT: right sided swelling . Derm: No deficits noted. No signs and/or symptoms reported regarding the dermatologic system. Musculoskeletal: No deficits noted. No signs and/or symptoms reported regarding the musculoskeletal system. 03:54 Reassessment: Patient appears in no apparent distress at this time. No changes from tw5 previously documented assessment. Patient and/or family updated on plan of care and expected duration. Pain level reassessed. Patient is alert, oriented x 3, equal unlabored respirations, skin warm/dry/pink. Patient states symptoms have not improved. Vital Signs: 02:46 BP 159 / 114; Pulse 81; Resp 17; Temp 98.0(TE); Pulse Ox 99% on R/A; Weight 90.72 kg lg3 (R); Height 5 ft. 3 in. (160.02 cm) (R); Pain 10/10; 03:54 BP 142 / 92; Pulse 80; Resp 17 S; Pulse Ox 100% on R/A; Pain 10/10; tw5 02:46 Body Mass Index 35.43 (90.72 kg, 160.02 cm) lg3 ED Course: 02:38 Patient arrived in ED. bp1 02:49 Nilson Walters MD is Attending Physician. [facility] 02:51 Triage completed. lg3 02:51 Arm band placed on. lg3 03:02 Jane Levine, RN is Primary Nurse. lg3 03:02 Patient has correct armband on for positive identification. Call light in reach. Warm lg3 blanket given. Ice pack to injury. 03:56 No provider procedures requiring assistance completed. Patient did not have IV access tw5 during this emergency room visit. Administered Medications: 03:55 Drug: [place] (HYDROcodone-acetaminophen) 10 mg-325 mg 1 tabs Route: PO; tw5 03:56 Follow up: Response: No adverse reaction; RASS: Alert and Calm (0) tw5 03:55 Drug: Ketorolac 60 mg Route: IM; Site: right gluteus; tw5 03:56 Follow up: Response: No adverse reaction tw5 03:55 Drug: Augmentin (Amoxicillin-Clavulanate) 875 mg Route: PO; tw5 03:56 Follow up: Response: No adverse reaction tw5 Outcome: 03:37 Discharge ordered by . [facility] 03:56 Discharged to home ambulatory. tw5 03:56 Condition: unchanged 03:56 Discharge instructions given to patient, Prescriptions given X 2. 03:57 Patient left the ED. tw5 Signatures: Nilson Walters MD MD mindy Jane Levine, HAILEY RN lg3 [facility] Patsy Sharma tw5 Corrections: (The following items were deleted from the chart) 02:53 02:51 Allergies: No Known Allergies; lg3 lg3 02:53 02:51 Home Meds: Unable to obtain; lg3 lg3
--- NOTE | 2021-06-12 03:39 | EDPHYS ---
Physician Documentation [facility] Name: Chico Leon Age: 30 yrs Sex: Male : 1990 Arrival Date: 06/12/2021 Time: 02:38 Bed 13 Private MD: SANTIAGO Physician Nilson Walters HPI: 06/12 03:32 This 30 yrs old Male presents to ER via Ambulatory with complaints of mindy Toothache. 03:32 The patient presents with broken tooth/teeth, pain, swelling. The problem is located in mindy the right buccal mucosa and upper right second molar. Onset: The symptoms/episode began/occurred 3 day(s) ago. Duration: The symptoms are continuous, and are steadily getting worse. Modifying factors: The symptoms are alleviated by prescription meds, the symptoms are aggravated by air, chewing, food. Associated signs and symptoms: The patient has no apparent associated signs or symptoms. Severity of symptoms: At their worst the symptoms were moderate, in the emergency department the symptoms are unchanged. The patient has not experienced similar symptoms in the past. Historical: - Allergies: 02:51 No Known Allergies; lg3 - Home Meds: 02:51 None [Active]; lg3 - PMHx: 02:51 Anxiety; Bipolar disorder; Depression; Pancreatitis; PTSD; Schizophrenia; Borderline; lg3 Seizures; - PSHx: 02:51 Appendectomy; lg3 - Immunization history:: Adult Immunizations up to date, Client reports receiving the 2nd dose of the Covid vaccine, moderna x2. - Social history:: Smoking status: Patient reports the use of cigarette tobacco products, smokes two packs cigarettes per day. - Family history:: not pertinent. ROS: 03:32 Constitutional: Negative for fever, chills, and weight loss, Eyes: Negative for injury, mindy pain, redness, and discharge, Neck: Negative for injury, pain, and swelling, Cardiovascular: Negative for chest pain, palpitations, and edema, Respiratory: Negative for shortness of breath, cough, wheezing, and pleuritic chest pain, Abdomen/GI: Negative for abdominal pain, nausea, vomiting, diarrhea, and constipation, Back: Negative for injury and pain, : Negative for injury, bleeding, discharge, and swelling, MS/Extremity: Negative for injury and deformity, Skin: Negative for injury, rash, and discoloration, Neuro: Negative for headache, weakness, numbness, tingling, and seizure, Psych: Negative for depression, anxiety, suicide ideation, homicidal ideation, and hallucinations, Allergy/Immunology: Negative for hives, rash, and allergies, Endocrine: Negative for neck swelling, polydipsia, polyuria, polyphagia, and marked weight changes, Hematologic/Lymphatic: Negative for swollen nodes, abnormal bleeding, and unusual bruising. 03:32 ENT: Positive for dental pain, Gum pain Exam: 03:32 Constitutional: This is a well developed, well nourished patient who is awake, alert, mindy and in no acute distress. Eyes: Pupils equal round and reactive to light, extra-ocular motions intact. Lids and lashes normal. Conjunctiva and sclera are non-icteric and not injected. Cornea within normal limits. Periorbital areas with no swelling, redness, or edema. ENT: Nares patent. No nasal discharge, no septal abnormalities noted. Tympanic membranes are normal and external auditory canals are clear. Oropharynx with no redness, swelling, or masses, exudates, or evidence of obstruction, uvula midline. Mucous membranes moist. Neck: Trachea midline, no thyromegaly or masses palpated, and no cervical lymphadenopathy. Supple, full range of motion without nuchal rigidity, or vertebral point tenderness. No Meningismus. Chest/axilla: Normal chest wall appearance and motion. Nontender with no deformity. No lesions are appreciated. Cardiovascular: Regular rate and rhythm with a normal S1 and S2. No gallops, murmurs, or rubs. Normal PMI, no JVD. No pulse deficits. Respiratory: Lungs have equal breath sounds bilaterally, clear to auscultation and percussion. No rales, rhonchi or wheezes noted. No increased work of breathing, no retractions or nasal flaring. Abdomen/GI: Soft, non-tender, with normal bowel sounds. No distension or tympany. No guarding or rebound. No evidence of tenderness throughout. Back: No spinal tenderness. No costovertebral tenderness. Full range of motion. Male : Normal genitalia with no discharge or lesions. Skin: Warm, dry with normal turgor. Normal color with no rashes, no lesions, and no evidence of cellulitis. MS/ Extremity: Pulses equal, no cyanosis. Neurovascular intact. Full, normal range of motion. Neuro: Awake and alert, GCS 15, oriented to person, place, time, and situation. Cranial nerves II-XII grossly intact. Motor strength 5/5 in all extremities. Sensory grossly intact. Cerebellar exam normal. Normal gait. Psych: Awake, alert, with orientation to person, place and time. Behavior, mood, and affect are within normal limits. 03:32 Head/face: Noted is tenderness, that is mild, of the right cheek and right jaw. 03:32 ENT: Dental exam: dental caries, gum swelling, pain, that is mild, specifically in the upper right second molar (#2). Vital Signs: 02:46 BP 159 / 114; Pulse 81; Resp 17; Temp 98.0(TE); Pulse Ox 99% on R/A; Weight 90.72 kg lg3 (R); Height 5 ft. 3 in. (160.02 cm) (R); Pain 10/10; 03:54 BP 142 / 92; Pulse 80; Resp 17 S; Pulse Ox 100% on R/A; Pain 10/10; tw5 02:46 Body Mass Index 35.43 (90.72 kg, 160.02 cm) lg3 MDM: 02:49 Patient medically screened. mindy 03:35 Differential diagnosis: dental caries, gingivitis. Data reviewed: vital signs, nurses mindy notes. Data interpreted: neuro urologist: not applicable for this patient encounter. rate is 81 beats/min, rhythm is regular, Pulse oximetry: on room air is 99 %. Counseling: I had a detailed discussion with the patient and/or guardian regarding: the historical points, exam findings, and any diagnostic results supporting the discharge/admit diagnosis, the need for outpatient follow up, for definitive care, a dentist. Administered Medications: 03:55 Drug: [place] (HYDROcodone-acetaminophen) 10 mg-325 mg 1 tabs Route: PO; tw5 03:56 Follow up: Response: No adverse reaction; RASS: Alert and Calm (0) tw5 03:55 Drug: Ketorolac 60 mg Route: IM; Site: right gluteus; tw 03:56 Follow up: Response: No adverse reaction tw5 03:55 Drug: Augmentin (Amoxicillin-Clavulanate) 875 mg Route: PO; tw 03:56 Follow up: Response: No adverse reaction tw5 Disposition Summary: 06/12/21 03:37 Discharge Ordered Location: Home [facility] Problem: new mindy Symptoms: have improved mindy Condition: Stable mindy Diagnosis - Dental caries, unspecified mindy - Cracked tooth mindy Followup: [facility] - With: Private Physician - When: Today - Reason: Recheck today's complaints, Re-evaluation by your physician Discharge Instructions: - Discharge Summary Sheet mindy - Dental Caries, Adult mindy - Dental Pain mindy - Tooth Injuries mindy - Dental Pain, Aeyo-px-Ougn mindy - Diet and Dental Disease mindy - Tooth Injuries, Qwkn-nh-Qnsy mindy - Dental Caries, Adult, Gvrz-pt-Jrcu [facility] Forms: - Medication Reconciliation Form [facility] - Thank You Letter [facility] - Antibiotic Education [facility] - Prescription Opioid Use [facility] Prescriptions: - Amoxicillin 500 mg Oral Capsule - take 1 capsule by ORAL route every 8 hours for 10 days; 30 tablet; Refills: 0, mindy Product Selection Permitted - Tylenol-Codeine #3 300 mg-30 mg Oral - take 2 tablet by ORAL route every 4-6 hours; 15 tablet; Refills: 0, Product [facility] Selection Permitted Signatures: Nilson Walters MD MD cha Gibson, Lacie, RN RN fer3 Patsy Sharma tw5 Corrections: (The following items were deleted from the chart) 02:53 02:51 Allergies: No Known Allergies; lg3 lg3 02:53 02:51 Home Meds: Unable to obtain; lg3 lg3
[2021-06-12] MEDS ORDERED: HYDROCODONE/APAP 10/325 TAB ONE (03:44)
[2021-06-12] MEDS ORDERED: AMOX/K CLAV 875 MG TAB ONE (03:45)
[2021-06-12] MEDS ORDERED: KETOROLAC 30 MG/ML INJ ONE (03:46)
[2021-06-12 04:04] VITALS: TEMP 98
[2021-06-12 04:05] VITALS: BP 142/92; O2SAT 100
== END 2021-06-12 03:57 | disposition home or self-care (01) ==
LOC: ER 02:36
DX: K02.9 Dental caries, unspecified (principal); K03.81 Cracked tooth; F17.210 Nicotine dependence, cigarettes, uncomplicated
CPT/HCPCS: 96372; 99283

== ENCOUNTER 2022-06-27 21:47 | Emergency (ER) | payer BC ==
--- OUTSIDE RECORDS SUMMARY | 2022-06-27 21:55 | XMS REPORT | Continuity of Care Document ---
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 Morphine No Notes: [facility] 7-16 (Same l 22:18: as:MORPhin e Sulfate) Ondansetron No Notes: Suleman lida -16 (Same as: l 22:01: Zofran) Sodium No 1,000 mL, Memori a Chloride 12-16 1000 l 0.154 22:01: ml/hr, Joon MEQ/ML 00 Infuse Injectable Over: 1 Solution hr, Route: IV, 1,000, Drug form: INJ, ONCE, Priority: STAT, Dosing Weight 73.182 kg, Start date: 12/16/13 17:01:00, Duration: 1 doses or times, Stop date: 12/16/13 17:01:00 Saline No Notes: [facility] Flush 0.9% 12-16 (Same as: l 22:01: BD Joon 00 Posiflush) Immunizations Ordered Immunization Filled Immunization Date Status Commen ts Source Name Name diphtheria/pertussis 2018-02-26 Completed Suleman rial , acel/tetanus adult 20:01:00 Dilip teresa tetanus-diphtheria 2011-05-07 Completed [facility] toxoids 22:25:00 Joon tetanus-diphtheria 2011-05-07 Completed [facility] toxoids 22:25:00 Joon Vital Signs Vital Name Observation Time Observation Value Comments Source Systolic blood 2021-08-21 16:37:00 158 mm[Hg] Lakeshia Maoold pressure Diastolic blood 2021-08-21 16:37:00 78 mm[Hg] Kelse y Seybold pressure Heart rate 2021-08-21 16:37:00 80 /min Lakeshia blackmanbomaris Body temperature 2021-08-21 16:37:00 36.83 Tiffany Valarie ey Seybold Respiratory rate 2021-08-21 16:37:00 16 /min Valarie ey Seybold Body height 2021-08-21 16:37:00 160 cm Lakeshia blackmanbomaris Body weight 2021-08-21 16:37:00 88.089 kg Lakeshia blackmanbold BMI 2021-08-21 16:37:00 34.40 kg/m2 Lakeshia blackmanbold Height 2020-05-28 05:09:00 157.48 CM Weight 2020-05-28 05:09:00 72.57 KG Temperature Oral (F) 2021-11-16 20:56:00 99 F [facility] Heart Rate 2021-11-16 20:56:00 [facility] Respitory Rate 2021-11-16 20:56:00 [facility] Joon Systolic (mm Hg) 2021-11-16 20:56:00 Suleman rial [facility] Diastolic (mm Hg) 2021-11-16 20:56:00 [facility] Height 2021-11-16 17:15:00 160.02 cm [facility] BMI Calculated 2021-11-16 17:15:00 [facility] Weight 2021-11-16 17:15:00 [facility] Systolic (mm Hg) 2021-11-16 17:15:00 Suleman rial [facility] Diastolic (mm Hg) 2021-11-16 17:15:00 Mem orial Joon Heart Rate 2021-11-16 17:15:00 [facility] Respitory Rate 2021-11-16 17:15:00 [facility] Temperature Oral (F) 2021-11-16 17:15:00 101 F [facility] Systolic (mm Hg) 2021-11-14 20:02:00 Suleman rial [facility] Diastolic (mm Hg) 2021-11-14 20:02:00 [facility] Heart Rate 2021-11-14 20:02:00 [facility] Respitory Rate 2021-11-14 20:02:00 [facility] Joon Temperature Oral (F) 2021-11-14 20:02:00 98.3 F [facility] Height 2021-11-14 16:59:00 160.02 cm [facility] BMI Calculated 2021-11-14 16:59:00 [facility] Weight 2021-11-14 16:59:00 [facility] Systolic (mm Hg) 2021-11-14 16:59:00 Suleman rial Joon Diastolic (mm Hg) 2021-11-14 16:59:00 [facility] o[facility] Heart Rate 2021-11-14 16:59:00 [facility] Respitory Rate 2021-11-14 16:59:00 [facility] al Joon Temperature Oral (F) 2021-11-14 16:59:00 98.9 F [facility] Heart Rate 2021-08-29 00:28:00 [facility] Respitory Rate 2021-08-29 00:28:00 [facility] al Joon Systolic (mm Hg) 2021-08-29 00:28:00 Suleman [facility] Diastolic (mm Hg) 2021-08-29 00:28:00 [facility] o[facility] Height 2021-08-28 21:23:00 162.56 cm [facility] BMI Calculated 2021-08-28 21:23:00 [facility]oon Weight 2021-08-28 21:23:00 [facility] Systolic (mm Hg) 2021-08-28 21:23:00 Suleman [facility] Diastolic (mm Hg) 2021-08-28 21:23:00 [facility] o[facility] Heart Rate 2021-08-28 21:23:00 [facility] Respitory Rate 2021-08-28 21:23:00 [facility] al Joon Temperature Oral (F) 2021-08-28 21:23:00 98.2 F [facility] Temperature Oral (F) 2020-01-25 09:12:00 98.2 F [facility] Systolic (mm Hg) 2020-01-25 09:12:00 Suleman rial [facility] Diastolic (mm Hg) 2020-01-25 09:12:00 [facility] Respitory Rate 2020-01-25 09:12:00 [facility] Heart Rate 2020-01-25 09:12:00 [facility] Height 2020-01-25 05:25:00 160.02 cm [facility] BMI Calculated 2020-01-25 05:25:00 [facility] Weight 2020-01-25 05:25:00 [facility] Systolic (mm Hg) 2020-01-25 05:25:00 Suleman [facility] Diastolic (mm Hg) 2020-01-25 05:25:00 [facility] o[facility] Heart Rate 2020-01-25 05:25:00 [facility] Respitory Rate 2020-01-25 05:25:00 [facility] al Joon Temperature Oral (F) 2020-01-25 05:25:00 98.2 F [facility] Systolic (mm Hg) 2019-07-18 20:14:00 Suleman rial [facility] Diastolic (mm Hg) 2019-07-18 20:14:00 [facility] Heart Rate 2019-07-18 20:14:00 [facility] Respitory Rate 2019-07-18 20:14:00 [facility] al Joon Temperature Oral (F) 2019-07-18 20:14:00 98.5 F [facility] Height 2019-07-18 20:14:00 160.02 cm [facility] BMI Calculated 2019-07-18 20:14:00 [facility] Weight 2019-07-18 20:14:00 [facility] Systolic (mm Hg) 2019-07-09 00:55:00 Suleman rial [facility] Diastolic (mm Hg) 2019-07-09 00:55:00 [facility] Respitory Rate 2019-07-09 00:55:00 [facility] Heart Rate 2019-07-09 00:55:00 [facility] Temperature Oral (F) 2019-07-09 00:55:00 99.5 F [facility] Systolic (mm Hg) 2019-07-08 23:31:00 Suleman [facility] Diastolic (mm Hg) 2019-07-08 23:31:00 [facility] Heart Rate 2019-07-08 23:31:00 [facility] Respitory Rate 2019-07-08 23:31:00 [facility] Temperature Oral (F) 2019-07-08 23:31:00 98.4 F [facility] Height 2019-07-08 23:31:00 160.02 cm [facility] BMI Calculated 2019-07-08 23:31:00 [facility] Weight 2019-07-08 23:31:00 [facility] Temperature Oral (F) 2018-02-26 22:56:00 98.5 F [facility] Systolic (mm Hg) 2018-02-26 22:56:00 Suleman rial Joon Diastolic (mm Hg) 2018-02-26 22:56:00 [facility] Heart Rate 2018-02-26 22:56:00 [facility] Respitory Rate 2018-02-26 22:56:00 [facility] Respitory Rate 2018-02-26 20:36:00 [facility] Temperature Oral (F) 2018-02-26 20:36:00 98.6 F [facility] Systolic (mm Hg) 2018-02-26 20:36:00 Suleman rial Joon Diastolic (mm Hg) 2018-02-26 20:36:00 Mem orial [facility] Heart Rate 2018-02-26 20:36:00 [facility] Temperature Oral (F) 2018-02-26 19:50:00 99.1 F [facility] Weight 2018-02-26 19:50:00 [facility] Heart Rate 2018-02-26 19:50:00 [facility] Systolic (mm Hg) 2018-02-26 19:50:00 Suleman rial [facility]oon Diastolic (mm Hg) 2018-02-26 19:50:00 [facility] Respitory Rate 2018-02-26 19:50:00 [facility]oon Respitory Rate 2016-11-19 03:43:00 [facility]oon Systolic (mm Hg) 2016-11-19 03:43:00 Suleman [facility] Diastolic (mm Hg) 2016-11-19 03:43:00 Mem o[facility]oon Respitory Rate 2016-11-19 02:00:00 [facility]oon Systolic (mm Hg) 2016-11-19 02:00:00 Suleman [facility] Diastolic (mm Hg) 2016-11-19 02:00:00 Mem o[facility]oon Respitory Rate 2016-11-19 01:42:00 [facility]oon Systolic (mm Hg) 2016-11-19 01:42:00 Suleman rial [facility] Diastolic (mm Hg) 2016-11-19 01:42:00 [facility] Heart Rate 2016-11-19 00:48:00 [facility] Weight 2016-11-19 00:23:00 [facility] Temperature Oral (F) 2016-11-19 00:23:00 99.6 F [facility] Height 2016-11-19 00:23:00 160.02 cm [facility] BMI Calculated 2016-11-19 00:23:00 [facility] Heart Rate 2016-11-19 00:23:00 [facility] Respitory Rate 2015-07-28 11:56:00 [facility] Heart Rate 2015-07-28 11:56:00 [facility] Temperature Oral (F) 2015-07-28 11:56:00 98.2 F [facility] Systolic (mm Hg) 2015-07-28 11:56:00 Suleman rial [facility]oon Diastolic (mm Hg) 2015-07-28 11:56:00 [facility] Temperature Oral (F) 2015-07-28 10:03:00 98.1 F [facility] Height 2015-07-28 10:03:00 167.64 cm [facility] Weight 2015-07-28 10:03:00 [facility] BMI Calculated 2015-07-28 10:03:00 [facility] Systolic (mm Hg) 2015-07-28 10:03:00 Suleman [facility] Diastolic (mm Hg) 2015-07-28 10:03:00 [facility] Respitory Rate 2015-07-28 10:03:00 [facility] Heart Rate 2015-07-28 10:03:00 [facility] Systolic (mm Hg) 2015-06-08 07:40:00 S[facility]man [facility] Diastolic (mm Hg) 2015-06-08 07:40:00 [facility]oon Temperature Oral (F) 2015-06-08 07:40:00 99.4 F [facility] Respitory Rate 2015-06-08 07:40:00 [facility] Heart Rate 2015-06-08 07:40:00 [facility] Weight 2015-06-08 05:16:00 [facility] BMI Calculated 2015-06-08 05:16:00 [facility] Height 2015-06-08 05:16:00 160.02 cm [facility] Temperature Oral (F) 2015-06-08 05:16:00 102.5 F [facility] Respitory Rate 2015-06-08 05:16:00 [facility] Heart Rate 2015-06-08 05:16:00 [facility] Systolic (mm Hg) 2015-06-08 05:16:00 Suleman [facility] Diastolic (mm Hg) 2015-06-08 05:16:00 [facility] o[facility] Systolic (mm Hg) 2015-04-21 07:26:00 S[facility]man [facility] Diastolic (mm Hg) 2015-04-21 07:26:00 [facility] Respitory Rate 2015-04-21 07:26:00 [facility] Heart Rate 2015-04-21 07:26:00 [facility] Weight 2015-04-21 05:43:00 [facility] Temperature Oral (F) 2015-04-21 05:43:00 98.4 F [facility] BMI Calculated 2015-04-21 05:43:00 [facility] Height 2015-04-21 05:43:00 160.02 cm [facility] Systolic (mm Hg) 2015-04-21 05:43:00 Suleman rial [facility] Diastolic (mm Hg) 2015-04-21 05:43:00 [facility] Respitory Rate 2015-04-21 05:43:00 [facility] Heart Rate 2015-04-21 05:43:00 [facility] Diastolic (mm Hg) 2014-06-09 16:33:00 [facility] Systolic (mm Hg) 2014-06-09 16:33:00 [facility]man [facility] Heart Rate 2014-06-09 16:33:00 [facility] Respitory Rate 2014-06-09 16:33:00 [facility] Joon Temperature Oral (F) 2014-06-09 16:33:00 99.8 F [facility] Diastolic (mm Hg) 2014-06-09 15:37:00 [facility] Systolic (mm Hg) 2014-06-09 15:37:00 [facility]man [facility] Heart Rate 2014-06-09 15:37:00 [facility] Respitory Rate 2014-06-09 15:37:00 [facility] Temperature Oral (F) 2014-06-09 15:37:00 100.9 F [facility] Height 2014-06-09 15:37:00 160.02 cm [facility] Weight 2014-06-09 15:37:00 [facility] BMI Calculated 2014-06-09 15:37:00 [facility] Respitory Rate 2014-01-21 04:47:00 [facility] Systolic (mm Hg) 2014-01-21 04:47:00 Suleman rial [facility] Heart Rate 2014-01-21 04:47:00 [facility] Diastolic (mm Hg) 2014-01-21 04:47:00 [facility] Temperature Oral (F) 2014-01-21 04:47:00 97.8 F [facility] Diastolic (mm Hg) 2014-01-21 03:31:00 [facility] Systolic (mm Hg) 2014-01-21 03:31:00 Suleman [facility] Respitory Rate 2014-01-21 03:31:00 [facility] Heart Rate 2014-01-21 03:31:00 [facility] Heart Rate 2014-01-21 01:00:00 [facility] Respitory Rate 2014-01-21 01:00:00 [facility] Systolic (mm Hg) 2014-01-21 01:00:00 Suleman [facility] Diastolic (mm Hg) 2014-01-21 01:00:00 [facility] BMI Calculated 2014-01-20 20:25:00 [facility] Weight 2014-01-20 20:25:00 [facility] Temperature Oral (F) 2014-01-20 20:25:00 98.6 F [facility] Height 2014-01-20 20:25:00 160.02 cm [facility] Diastolic (mm Hg) 2013-12-17 01:20:00 [facility] Systolic (mm Hg) 2013-12-17 01:20:00 Suleman rial [facility] Respitory Rate 2013-12-17 01:20:00 [facility] Heart Rate 2013-12-17 01:20:00 [facility] Heart Rate 2013-12-17 00:00:00 [facility] Respitory Rate 2013-12-17 00:00:00 [facility]oon Systolic (mm Hg) 2013-12-17 00:00:00 Suleman [facility] Diastolic (mm Hg) 2013-12-17 00:00:00 [facility] Weight 2013-12-16 21:18:00 [facility] Height 2013-12-16 21:18:00 160.02 cm [facility] BMI Calculated 2013-12-16 21:18:00 [facility] al [facility] Respitory Rate 2013-12-16 21:18:00 [facility] Joon Temperature Oral (F) 2013-12-16 21:18:00 98.7 F [facility] Heart Rate 2013-12-16 21:18:00 [facility] Diastolic (mm Hg) 2013-12-16 21:18:00 [facility] Systolic (mm Hg) 2013-12-16 21:18:00 S[facility]man [facility] Weight 2013-12-03 04:25:00 [facility] Systolic (mm Hg) 2013-12-03 04:25:00 Suleman rial [facility] Heart Rate 2013-12-03 04:25:00 [facility] Respitory Rate 2013-12-03 04:25:00 [facility] Diastolic (mm Hg) 2013-12-03 04:25:00 [facility]oon Temperature Oral (F) 2013-12-03 04:25:00 98.4 F [facility] BMI Calculated 2013-12-03 04:25:00 [facility] Height 2013-12-03 04:25:00 160[facility]02 [facility] Procedure Date / Time Performed Performing Clinician Sourc e CHEST PA LATERAL 2021-08-21 17:38:44 Rosette Garcia Se old COVID-19 QUALITATIVE 2020-04-27 20:45:00 Juan Jose Wilkins [facility] RT-PCR Karl Appendectomy [facility] Plan of Care Planned Activity Planned Date Details Comments Source Future Scheduled 2022-05-18 [facility] (#1[facility] [code = COVID-19 VACCINE (#1)] Future Scheduled 2022-05-[address] [facility] Test 19:13:25 [code = INFLUENZA VACCINE] Future Scheduled 2022-04-07 [facility] 06:27:26 VACCINES (1 of 3 - 3-dose series) [code = HEPATITIS B VACCINES (1 of 3 - 3-dose series)] Future Scheduled 2022-04-07 COVID-19 VACCINE Methodi [facility] Test 06:27:26 (#1) [code = COVID-19 VACCINE (#1)] Future Scheduled 2022-04-[address] [facility] Test 06:27:26 [code = INFLUENZA VACCINE] Future Scheduled COVID-19 VACCINE Methodi [facility] Test (1) [code = COVID-19 VACCINE (1)] Future Scheduled INFLUENZA VACCINE Method [facility] Test [code = INFLUENZA VACCINE] Encounters Start End Encounter Admission Attending Care Care Encounter Source Date/Time Date/Time Type Type Clinicians Facility Department ID 2022-06-26 Outpatient [facility] [id number] [place] 04:16:50 [id number] [facility] 2022-05-02 Outpatient [facility] [id number] [place] 07:15:49 [id number] [facility] 2022-04-24 Outpatient [facility] [id number] [place] 10:15:19 [id number] [facility] 2022-08-06 2022-08-06 Outpatient SCOBERCEA, [facility] [id number] [place] 11:00:00 11:00:00 [facility] 2022-06-25 2022-06-25 Office Scobercea, [facility]TP [facility]THO [id number] [id number] [place] 11:00:00 11:32:51 [place] Adalid [place] [id number] H [facility] K 9.2.7.2.686 [id number] 1 2022-05-18 2022-05-18 Outpatient SCOBERCEA, [facility] [id number] [place] 10:40:00 10:40:00 [facility] 2022-05-10 2022-05-10 Outpatient SCOBERCEA, [facility] [id number] [place] 11:00:00 11:00:00 [facility] 2022-01-11 2022-02-10 OP Therapy nullFlavo [facility] [id number] Memoria 20:00:00 04:59:00 Patients travis Kaylan 01 l [facility]y [facility] 2022-01-11 2022-02-09 Outpatient Scaparna, 2.16.840. [id number] . [id number] 15:00:00 23:59:00 Adalid [id number]. [id number] 01 Taran 3.615.132 5.132 2022-02-08 2022-02-08 Office Scobercea, [facility]TP [facility]TH[facility] 1.2.840.114 1 [id number] [place] 14:40:00 15:20:20 Visit Adalid RAYA [id number] H ealth K 9.2.7.2.686 [id number] 1 2021-12-07 2022-01-06 OP Therapy nullFlavo [facility] [id number] Memoria 20:46:00 04:59:00 Patients r Kaylan 00 l Woody Dupree 2021-12-07 2022-01-05 Outpatient Scobercea, 2.16.840. 2.16.840.1 . [id number] 15:46:00 23:59:00 Adalid [id number]. [id number] 00 Taran 3.615.132 5.132 2022-01-05 2022-01-05 Telephone Jovanna Villafuerte ORTHO 1.2.84 0.114 [id number] [place] 00:00:00 00:00:00 Jovanna Villafuerte [id number] Health K 9.2.7.2.686 [id number] 1 2022-01-04 2022-01-04 Office Scobercekenia, [facility]TP [facility]THO 1.2.840.114 1 [id number] [place] 08:00:00 09:07:35 Visit Adalid RAYA 350.1.13.58 H ealth K 9.2.7.2.686 [id number] 1 2021-11-23 2021-11-23 Office Scobercea, [facility]TP [facility]THO 1.2.840.114 1 [id number] [place] 13:40:00 14:15:40 Visit Adalid RAYA 350.1.13.58 H ealth K 9.2.7.2.686 [id number] 1 2021-11-23 2021-11-23 Telephone Jovanna Villafuerte [facility] 1.2.84 0.114 [id number] [place] 00:00:00 00:00:00 Jovanna Villafuerte 350.1.13.58 Health K 9.2.7.2.686 [id number] 1 2021-11-16 2021-11-16 Emergency nullFlavo [facility] [id number] Memoria 16:59:48 20:59:00 r Joon 16 l [facility] 2021-11-16 2021-11-16 Outpatient Maritza [facility] [id number] 11:59:48 15:59:00 Rosana Rachel Urban 2021-11-16 2021-11-16 [facility] [place] 11:59:00 15:59:00 ROSANA 2021-11-14 2021-11-14 [id number] Memoria 16:53:27 20:08:00 r Joon 15 l [facility] 2021-11-14 2021-11-14 Outpatient Kathe [facility] [id number] 11:53:27 15:08:00 Etienne Iqbal 15 2021-11-14 2021-11-14 Emergency [facility] NE 11:53:00 15:08:00 ETIENNE 2021-10-27 2021-10-27 Telephone Jovanna Villafuerte [facility] 1.2.84 0.114 [id number] [place] 00:00:00 00:00:00 Jovanna Villafuerte 350.1.13.58 Health K 9.2.7.2.686 [id number] 1 2021-10-26 2021-10-26 Office SAM Lam ORTHO 1.2.840.114 1 [id number] [place] 13:40:00 14:38:19 Visit Adalid RAOGENARO 350.1.13.58 H ealth K 9.2.7.2.686 [id number] 1 2021-10-23 2021-10-23 Telephone Yessy Winters [facility] 1.2.840.114 [id number] [place] 00:00:00 00:00:00 Yessy Winters 350.1. 13.58 Health K 9.2.7.2.686 [id number] 1 2021-10-19 2021-10-19 Office SAM Lam ORTHO 1.2.840.114 1 [id number] [place] 15:00:00 15:50:13 Visit Adalid RAYA 350.1.13.58 H ealth K 9.2.7.2.686 [id number] 1 2021-09-21 2021-09-21 Telephone Jovanna Villafuerte [facility]THO 1.2.84 0.114 [id number] [place] 00:00:00 00:00:00 Jovanna Villafuerte 350.1.13.58 Health K 9.2.7.2.686 [id number] 1 2021-09-20 2021-09-20 Office SAM Lam ORTHO 1.2.840.114 1 [id number] [place] 08:00:00 08:28:13 Visit Adalid RAYA 350.1.13.58 H ealth K 9.2.7.2.686 [id number] 1 2021-09-04 2021-09-04 Office SAM Lam ORTHO 1.2.840.114 1 [id number] [place] 08:30:00 09:03:56 Visit Adalid RAYA 350.1.13.58 H ealth K 9.2.7.2.686 [id number] 1 2021-09-04 2021-09-04 Telephone Jovanna Villafuerte [facility] 1.2.84 0.114 [id number] [place] 00:00:00 00:00:00 Jovanna Villafuerte 350.1.13.58 Health K 9.2.7.2.686 [id number] 1 2021-08-28 2021-08-29 Emergency [facility] [id number] Memoria 21:14:43 00:41:00 travis Dupree [address] [place] [address] 2021-08-29 2021-08-29 Abstract Carole [facility]THO 1.2.840.114 [id number] [place] 00:00:00 00:00:00 Adalid PEREZSCOCIT 350.1.13.58 Health A 9.2.7.2.686 [id number] 1 2021-08-28 2021-08-[address] [facility] [id number] 16:14:43 19:41:00 Duglasmehran Santos 2021-08-28 2021-08-28 Emergency E GEOVANNA JACOBSMOSHE MHNE 7514 MHNE 16:14:00 19:41:00 CHRISTMEHRAN 2021-08-21 2021-08-21 Outpatient LAKESHIA ARELLANO [id number] [place] 12:15:00 12:15:00 Seybol d 2021-08-21 2021-08-21 Office Krbennett, [place] 1.2.840.114 [id number] [place] 11:15:00 11:30:00 Visit [facility] 350.1.13.13 Se terrance AND 1.2.7.2.686 DIAGNOSTI [id number] C [place] 0 2020-05-28 2020-05-28 [facility] [id number] [facility] 05:09:00 08:44:00 RUBIA [facility] 2020-04-27 2020-04-27 Lab Franky, 1.2.840.1 [id number] Methodi 14:20:42 14:25:42 [place] [id number] [facility] 3.430.2.7 Hospit a .3.064502 l .8 2020-01-25 2020-01-25 Emergency nullFlavo [facility] [id number] Memoria 05:08:59 09:40:00 r Joon 13 l [facility] 2020-01-25 2020-01-25 Outpatient Chris Fuentes [facility] [id number] 00:08:59 04:40:00 Hoon 13 2020-01-25 2020-01-25 Emergency E CHRIS FUENTES [address] [facility] 7513 MHNW 00:08:00 04:40:00 2019-07-18 2019-07-18 Emergency nullFlavo [facility] [id number] Memoria 20:06:56 21:00:00 r Joon 12 l [facility] 2019-07-18 2019-07-18 Outpatient Arvind [facility]I [facility] [id number] 14:06:56 15:00:00 Dante Keating 2019-07-18 2019-07-18 Emergency E ARVIND, MHNW MHNW 7512 MHNW 14:06:00 15:00:00 DANTE 2019-07-08 2019-07-09 Emergency nullFlavo [facility] [id number] Memoria 23:22:36 01:01:00 travis Dupree 11 jamil [facility] 2019-07-08 2019-07-08 Outpatient BAKCAMERON, MHNW MHNW 0041 MHNW 17:00:00 23:59:00 JERMAIN 2019-07-08 2019-07-08 [facility] [id number] 17:22:36 19:01:00 Angel Sauer 2019-07-08 2019-07-08 Emergency E JETHRO, MHNW MHNW 7511 MHNW 17:22:00 19:01:00 ANGEL 2018-02-26 2018-02-26 Emergency nullFlavo [facility] [id number] Memoria 19:48:00 23:07:00 travis negron [facility] 2018-02-26 2018-02-26 Outpatient Ndum, [facility] [id number] 14:48:00 18:07:00 Maximilianbisi Alvarado 2017-07-03 2017-07-03 Outpatient [facility] [id number] [address] [place] [address] 00:00:00 00:00:00 [facility] 2017-06-28 2017-06-29 Outpatient [facility] [id number] [address] [place] [address] 00:00:00 00:00:00 [facility] 2017-06-23 2017-06-23 Emergency E BAJOLLYG [facility] [id number] [facility] 11:52:00 13:51:00 [facility] [place] 2017-06-21 2017-06-22 Emergency E JIMÉNEZ, [facility] [id number] [place] 23:24:00 02:15:00 HERMAN [facility] [place] 2016-11-19 2016-11-19 Emergency nullFlavo [facility] [id number] Memoria 00:07:00 04:39:00 travis Dupree 09 jamil [facility] 2016-11-18 2016-11-18 Outpatient See Griffin [facility] [id number] 19:07:00 23:39:00 Gaurav 2016-11-09 2016-11-09 Emergency E TESHA JIMÉNEZ [facility] [id number] [place] 12:10:00 13:05:00 Medica [facility] 2015-07-28 2015-07-28 EC [facility] [id number] [facility] 10:00:00 12:25:00 Emergency r Joon 08 l [facility] 2015-07-28 2015-07-28 [facility] [id number] 04:00:00 06:25:00 Renetta 2015-06-08 2015-06-08 [facility] [id number] [facility]oria 04:27:00 09:31:00 Emergency r Vina 07 [facility] 2015-06-07 2015-06-08 Outpatient Yaw, [facility] [id number] 22:27:00 03:31:00 Cora Santos 2015-04-21 2015-04-21 [facility] [id number] [facility] 05:24:00 07:48:00 Emergency r Vina 06 l [facility] 2015-04-20 2015-04-21 Outpatient Elias See [facility] [id number] 23:24:00 01:48:00 Gaurav 2014-06-09 2014-06-09 EC nullFlavo [facility] [id number] Memoria 15:32:00 16:43:00 Emergency r Joon 05 [facility] 2014-06-09 2014-06-09 Outpatient Lluvia, 2.16.840. 2.16.840.1. 3 [id number] 09:32:00 10:43:00 Joslyn Gandhi [id number] 3.615.0.1 [id number] 70 3593-08-20 2014-01-21 EC nullFlavo [facility] [id number] Memoria 20:22:00 04:57:00 Emergency r Joon 04 l [facility] 2014-01-20 2014-01-20 Outpatient Alee Ritchie 2.16.840. 2.16.840.1. [id number] 15:22:00 23:57:00 Pop [id number]. [id number] 3.615.0.1 [id number] 38 4337-07-16 2013-12-17 EC Mustapha [facility] [id number] Memoria 21:09:00 01:25:00 Emergency r Vina 03 l Center [facility] 2013-12-16 2013-12-16 Outpatient Yaw, 2.16.840. 2.16.840.1. 3 [id number] 16:09:00 20:25:00 Christopher [id number]. [id number] Tom 3.615.0.1 [id number] 38 9115-07-03 2013-12-03 Mustapha [facility] [id number] Memoria 03:54:00 06:38:00 Emergency r Vina 02 l [facility] 2013-12-02 2013-12-03 Outpatient Yaw, 2.16.840. 2.16.840.1. 3 [id number] 22:54:00 01:38:00 Christopher [id number]. [id number] Tom 3.615.0.1 5.0.101 01 Results Test Description Test Time Test Comments Results Result Comments Source CHEM PANEL 2021-11-16 17:23:00 Test Item Value Reference Range Interpretation Comme nts Glucose Lvl (test code = Glucose Lvl) 85 70-99 [id number] 17:23:00 Test Item Value Reference Range Interpretation Comments BUN (test code = BUN) 13 7-22 [facility] [id number] 17:23:00 Test Item Value Reference Range Interpretation Comments Creatinine Lvl (test code = Creatinine 1.21 0.50-1.40 Lvl) [facility] [id number] 17:23:00 Test Item Value Reference Range Interpretation Comments Sodium Lvl (test code = Sodium Lvl) 142 135-145 [facility] [id number] 17:23:00 Test Item Value Reference Range Interpretation Comments Potassium Lvl (test code = Potassium 3.8 3.5-5.1 Lvl) [facility] [id number] 17:23:00 Test Item Value Reference Range Interpretation Comments Chloride Lvl (test code = Chloride Lvl) 108 95-109 [facility] [id number] 17:23:00 Test Item Value Reference Range Interpretation Comments CO2 (test code = CO2) 29 24-32 [facility] [id number] 17:23:00 Test Item Value Reference Range Interpretation Comments Calcium Lvl (test code = Calcium Lvl) 8.6 8.5-10.5 [facility] [id number] 17:23:00 Test Item Value Reference Range Interpretation Comments Total Protein (test code = Total 7.3 6.4-8.4 Protein) [facility]PlayBuzzEC[id number] 17:23:00 Test Item Value Reference Range Interpretation Comments Albumin Lvl (test code = Albumin Lvl) 3.7 3.5-5.0 [facility] [id number] 17:23:00 Test Item Value Reference Range Interpretation Comments ALT (test code = ALT) 41 See_Comment [Auto mated message] The system which ge nerated this result transmit ezequiel reference range : <=65. The reference range was not used to interpr et this result as grace l/abnormal. [facility] [id number] 17:23:00 Test Item Value Reference Range Interpretation Comments AST (test code = AST) 18 See_Comment [Auto mated message] The system which ge nerated this result transmit ezequiel reference range : <=37. The reference range was not used to interpr et this result as grace l/abnormal. [facility] [employer] [id number] 17:23:00 Test Item Value Reference Range Interpretation Comments Alk Phos (test code = Alk Phos) 63 39-136 [facility] [id number] 17:23:00 Test Item Value Reference Range Interpretation Comments Bili Total (test code = Bili Total) 0.4 0.2-1.3 [facility] [id number] 17:23:00 Test Item Value Reference Range Interpretation Comments AGAP (test code = AGAP) 8.8 10.0-20.0 [facility] [id number] 17:23:00 Test Item Value Reference Range Interpretation Comments B/C Ratio (test code = B/C Ratio) 11 1 6-25 [place] 124802-06-16 17:23:00 Test Item Value Reference Range Interpretation Comments Globulin (test code = Globulin) 3.6 2.7-4.2 [place] 124802-06-16 17:23:00 Test Item Value Reference Range Interpretation Comments A/G Ratio (test code = A/G Ratio) 1.0 1 0.7-1.6 [place] 124802-06-16 17:23:00 Test Item Value Reference Range Interpretation Comments eGFR (test code = eGFR) 78 [facility]2022-06-16 17:23:00 Test Item Value Reference Range Interpretation Comments Lactic Acid Lvl (test code = Lactic 1.3 0.5-2.2 Acid Lvl) [place] 124802-06-16 17:23:00 Test Item Value Reference Range Interpretation Comments Procalcitonin Lvl (test no gt See_Comment [Au tomated message] code = Procalcitonin Lvl) e system which generated this result transmitted ref erence range: <=0.10. The reference range was not used to interpr et this result as normal/abnormal . [place] 273992-06-16 17:23:00 Test Item Value Reference Range Interpretation Comments WBC (test code = WBC) 9.5 3.7-10.4 [place] 273992-06-16 17:23:00 Test Item Value Reference Range Interpretation Comments RBC (test code = RBC) 4.66 4.70-6.10 [place] 273992-06-16 17:23:00 Test Item Value Reference Range Interpretation Comments Hgb (test code = Hgb) 14.4 14.0-18.0 [place] 273992-06-16 17:23:00 Test Item Value Reference Range Interpretation Comments Hct (test code = Hct) 42.6 42.0-54.0 [place] [address]-06-16 17:23:00 Test Item Value Reference Range Interpretation Comments MCV (test code = MCV) 91.4 80.0-94.0 [place] [address]-06-16 17:23:00 Test Item Value Reference Range Interpretation Comments MCH (test code = MCH) 30.9 pg 27.0-31.0 [place] 273992-06-16 17:23:00 Test Item Value Reference Range Interpretation Comments MCHC (test code = MCHC) 33.8 32.0-36.0 [facility]BdkmjmjLDNZYBBKYW0616-00-85 17:23:00 Test Item Value Reference Range Interpretation Comments RDW (test code = RDW) 13.1 11.5-14.5 [facility] Hos[id number] 17:23:00 Test Item Value Reference Range Interpretation Comments Platelet (test code = Platelet) 231 133-450 [facility] HospitalOpefucqTWLRLMWNQK0956-76-45 17:23:00 Test Item Value Reference Range Interpretation Comments MPV (test code = MPV) 9.8 7.4-10.4 [facility] Ho[id number] 17:23:00 Test Item Value Reference Range Interpretation Comments Segs (test code = Segs) 71.2 45.0-75.0 [place] 273992-06-16 17:23:00 Test Item Value Reference Range Interpretation Comments Lymphocytes (test code = Lymphocytes) 15.6 20.0-40.0 [facility] HospitalQphweenNQHQFDIIBR7316-88-84 17:23:00 Test Item Value Reference Range Interpretation Comments Monocytes (test code = Monocytes) 9.0 2.0-12.0 [facility] HospitalVrbjfvoDAUTEMXAIQ1692-47-62 17:23:00 Test Item Value Reference Range Interpretation Comments Eosinophils (test code = 3.5 See_Comment [A utomated message] The Eosinophils) system which ge nerated this result tra nsmitted reference range : <=4.0. The reference r tony was not used to int erpret this result as normal/abnormal . [facility] HospitalWimzldiGRYQNGCRBI0459-02-13 17:23:00 Test Item Value Reference Range Interpretation Comments Basophils (test code = 0.7 See_Comment [Aut omated message] The Basophils) system which ge nerated this result tra nsmitted reference range : <=1.0. The reference r tony was not used to int erpret this result as normal/abnormal . [facility] HospitalJsluisvRVWGWVHXHU3258-52-08 17:23:00 Test Item Value Reference Range Interpretation Comments Neutrophils # (test code = Neutrophils 6.8 1.5-8.1 #) [facility] HospitalIurbqpsQYKHCGCJBW9198-94-15 17:23:00 Test Item Value Reference Range Interpretation Comments Lymphocytes # (test code = Lymphocytes 1.5 1.0-5.5 #) [facility] HospitalTioixddCWDABIZOKB8393-66-84 17:23:00 Test Item Value Reference Range Interpretation Comments Monocytes # (test code 0.9 See_Comment [Aut omated message] The = Monocytes #) system which generated this result tra nsmitted reference range : <=0.8. The reference r tony was not used to int erpret this result as normal/abnormal . [facility] HospitalZknilghAIUIXHTMSM9435-19-62 17:23:00 Test Item Value Reference Range Interpretation Comments Eosinophils # (test code 0.3 See_Comment [A utomated message] The = Eosinophils #) system whic h generated this result tra nsmitted reference range : <=0.5. The reference r tony was not used to int erpret this result as normal/abnormal . [facility] HospitalXkjtgkkFABWTHNFPE4921-54-41 17:23:00 Test Item Value Reference Range Interpretation Comments Basophils # (test code 0.1 See_Comment [Aut omated message] The = Basophils #) system which generated this result tra nsmitted reference range : <=0.2. The reference r tony was not used to int erpret this result as normal/abnormal . [facility] AND [id number] 17:22:00 Test Item Value Reference Range Interpretation Comments UA Color (test code = Yellow *NA*(11/14/21 UA Color) 12:22 PM) [facility] AND [id number] 17:22:00 Test Item Value Reference Range Interpretation Comments UA Turbidity (test code = Clear (11/14/21 12:22 UA Turbidity) PM) [facility] AND [id number] 17:22:00 Test Item Value Reference Range Interpretation Comments UA Spec Grav (test code = UA Spec 1.021 1 Grav) [facility] AND [id number] 17:22:00 Test Item Value Reference Range Interpretation Comments UA pH (test code = UA pH) 6.0 1 5.0-8.0 [facility] AND [id number] 17:22:00 Test Item Value Reference Range Interpretation Comments UA Protein (test code = UA Negative mg/dL Protein) [facility] AND [id number] 17:22:00 Test Item Value Reference Range Interpretation Comments UA Glucose (test code = UA Negative mg/dL Glucose) [facility] [id number] 17:22:00 Test Item Value Reference Range Interpretation Comments UA Ketones (test code = UA Negative mg/dL Ketones) [facility] [id number] 17:22:00 Test Item Value Reference Range Interpretation Comments UA Bili (test code = Negative *NA*(11/14/21 UA Bili) 12:22 PM) [facility] AND [id number] 17:22:00 Test Item Value Reference Range Interpretation Comments UA Blood (test code = Negative (11/14/21 12:22 UA Blood) PM) [facility] AND [id number] 17:22:00 Test Item Value Reference Range Interpretation Comments UA Nitrite (test code Negative (11/14/21 12:22 = UA Nitrite) PM) [facility] AND [id number] 17:22:00 Test Item Value Reference Range Interpretation Comments UA Leuk Est (test Negative (11/14/21 12:22 code = UA Leuk Est) PM) [facility] AND [id number] 17:22:00 Test Item Value Reference Range Interpretation Comments UA WBC (test code = 1 See_Comment [Automa ezequiel message] The UA WBC) system which ge nerated this result transmit ezequiel reference range : <=5. The reference range was not used to interpr et this result as grace l/abnormal. [facility] AND [id number] 17:22:00 Test Item Value Reference Range Interpretation Comments UA RBC (test code = 1 See_Comment [Automa ezequiel message] The UA RBC) system which ge nerated this result transmit ezequiel reference range : <=2. The reference range was not used to interpr et this result as grace l/abnormal. [facility] AND [id number] 17:22:00 Test Item Value Reference Range Interpretation Comments UA Mucus (test code = UA Mucus) Few /LPF [facility] AND [id number] 17:22:00 Test Item Value Reference Range Interpretation Comments UA Sq Epi (test code = UA Sq Epi) None Seen [facility] AND [id number] 17:22:00 Test Item Value Reference Range Interpretation Comments UA Urobilinogen (test code = UA <=1.0 mg/dL 0.1-1.0 Urobilinogen) [place] [address]-06-14 17:19:00 Test Item Value Reference Range Interpretation Comments Glucose Lvl (test code = Glucose Lvl) 119 70-99 [place] [address]-06-14 17:19:00 Test Item Value Reference Range Interpretation Comments BUN (test code = BUN) 15 7-22 [place] [address]-06-14 17:19:00 Test Item Value Reference Range Interpretation Comments Creatinine Lvl (test code = Creatinine 1.31 0.50-1.40 Lvl) [place] [address]-06-14 17:19:00 Test Item Value Reference Range Interpretation Comments Sodium Lvl (test code = Sodium Lvl) 138 135-145 [place] [address]-06-14 17:19:00 Test Item Value Reference Range Interpretation Comments Potassium Lvl (test code = Potassium 3.6 3.5-5.1 Lvl) [place] 124802-06-14 17:19:00 Test Item Value Reference Range Interpretation Comments Chloride Lvl (test code = Chloride Lvl) 105 95-109 [place] [address]-06-14 17:19:00 Test Item Value Reference Range Interpretation Comments CO2 (test code = CO2) 27 24-32 [place] 124802-06-14 17:19:00 Test Item Value Reference Range Interpretation Comments Calcium Lvl (test code = Calcium Lvl) 8.9 8.5-10.5 [place] 124802-06-14 17:19:00 Test Item Value Reference Range Interpretation Comments Total Protein (test code = Total 7.7 6.4-8.4 Protein) [place] 124802-06-14 17:19:00 Test Item Value Reference Range Interpretation Comments Albumin Lvl (test code = Albumin Lvl) 3.9 3.5-5.0 [place] 124802-06-14 17:19:00 Test Item Value Reference Range Interpretation Comments ALT (test code = ALT) 40 See_Comment [Auto mated message] The system which ge nerated this result transmit ezequiel reference range : <=65. The reference range was not used to interpr et this result as grace l/abnormal. [place] 124802-06-14 17:19:00 Test Item Value Reference Range Interpretation Comments AST (test code = AST) 19 See_Comment [Auto mated message] The system which ge nerated this result transmit ezequiel reference range : <=37. The reference range was not used to interpr et this result as grace l/abnormal. [place] 124802-06-14 17:19:00 Test Item Value Reference Range Interpretation Comments Alk Phos (test code = Alk Phos) 68 39-136 [place] 124802-06-14 17:19:00 Test Item Value Reference Range Interpretation Comments Bili Total (test code = Bili Total) 0.6 0.2-1.3 [place] [address]-06-14 17:19:00 Test Item Value Reference Range Interpretation Comments AGAP (test code = AGAP) 9.6 10.0-20.0 [place] 124802-06-14 17:19:00 Test Item Value Reference Range Interpretation Comments B/C Ratio (test code = B/C Ratio) 11 1 6-25 [place] [address]-06-14 17:19:00 Test Item Value Reference Range Interpretation Comments Globulin (test code = Globulin) 3.8 2.7-4.2 [place] 124802-06-14 17:19:00 Test Item Value Reference Range Interpretation Comments A/G Ratio (test code = A/G Ratio) 1.0 1 0.7-1.6 [place] [address]-06-14 17:19:00 Test Item Value Reference Range Interpretation Comments eGFR (test code = eGFR) 71 [place] 124802-06-14 17:19:00 Test Item Value Reference Range Interpretation Comments Lipase Lvl (test code = Lipase Lvl) 78 73-393 [place] 273992-06-14 17:19:00 Test Item Value Reference Range Interpretation Comments WBC (test code = WBC) 11.3 3.7-10.4 [place] [address]-06-14 17:19:00 Test Item Value Reference Range Interpretation Comments RBC (test code = RBC) 4.97 4.70-6.10 [place] [address]-06-14 17:19:00 Test Item Value Reference Range Interpretation Comments Hgb (test code = Hgb) 15.6 14.0-18.0 [place] [address]-06-14 17:19:00 Test Item Value Reference Range Interpretation Comments Hct (test code = Hct) 45.2 42.0-54.0 [place] 273992-06-14 17:19:00 Test Item Value Reference Range Interpretation Comments MCV (test code = MCV) 90.9 80.0-94.0 [place] [address]-06-14 17:19:00 Test Item Value Reference Range Interpretation Comments MCH (test code = MCH) 31.3 pg 27.0-31.0 [place] [address]-06-14 17:19:00 Test Item Value Reference Range Interpretation Comments MCHC (test code = MCHC) 34.4 32.0-36.0 [place] 273992-06-14 17:19:00 Test Item Value Reference Range Interpretation Comments RDW (test code = RDW) 12.7 11.5-14.5 [place] 273992-06-14 17:19:00 Test Item Value Reference Range Interpretation Comments Platelet (test code = Platelet) 209 133-450 [facility] HospitalExgumpoGKMSYLKIBO7235-08-58 17:19:00 Test Item Value Reference Range Interpretation Comments MPV (test code = MPV) 10.2 7.4-10.4 [place] 273992-06-14 17:19:00 Test Item Value Reference Range Interpretation Comments Segs (test code = Segs) 59.2 45.0-75.0 [place] 273992-06-14 17:19:00 Test Item Value Reference Range Interpretation Comments Lymphocytes (test code = Lymphocytes) 21.5 20.0-40.0 [place] [address]-06-14 17:19:00 Test Item Value Reference Range Interpretation Comments Monocytes (test code = Monocytes) 11.7 2.0-12.0 [place] [address]-06-14 17:19:00 Test Item Value Reference Range Interpretation Comments Eosinophils (test code = 6.5 See_Comment [A utomated message] The Eosinophils) system which ge nerated this result tra nsmitted reference range : <=4.0. The reference r tony was not used to int erpret this result as normal/abnormal . [facility] HospitalCboqnquQQFCUFZDGP5548-86-31 17:19:00 Test Item Value Reference Range Interpretation Comments Basophils (test code = 1.1 See_Comment [Aut omated message] The Basophils) system which ge nerated this result tra nsmitted reference range : <=1.0. The reference r tony was not used to int erpret this result as normal/abnormal . [facility] HospitalMrwwxowFVTYJBGYTZ5373-36-11 17:19:00 Test Item Value Reference Range Interpretation Comments Neutrophils # (test code = Neutrophils 6.7 1.5-8.1 #) [facility] HospitalRsikuppFGCXWFKCTS7599-59-20 17:19:00 Test Item Value Reference Range Interpretation Comments Lymphocytes # (test code = Lymphocytes 2.4 1.0-5.5 #) [facility] HospitalTzgalagYFAOYABJHE6242-26-80 17:19:00 Test Item Value Reference Range Interpretation Comments Monocytes # (test code 1.3 See_Comment [Aut omated message] The = Monocytes #) system which generated this result tra nsmitted reference range : <=0.8. The reference r tony was not used to int erpret this result as normal/abnormal . [facility] HospitalAtyovmxKSFDAAAHMB4775-80-34 17:19:00 Test Item Value Reference Range Interpretation Comments Eosinophils # (test code 0.7 See_Comment [A utomated message] The = Eosinophils #) system whic h generated this result tra nsmitted reference range : <=0.5. The reference r tony was not used to int erpret this result as normal/abnormal . [facility] HospitalHfflcdiKXSUEZBCWJ0084-64-66 17:19:00 Test Item Value Reference Range Interpretation Comments Basophils # (test code 0.1 See_Comment [Aut omated message] The = Basophils #) system which generated this result tra nsmitted reference range : <=0.2. The reference r tony was not used to int erpret this result as normal/abnormal . [place] 90028022-06-14 17:19:00 Test Item Value Reference Range Interpretation Comments Grp A Strep Scr (test Negative (11/14/21 12:19 code = Grp A Strep PM) Scr) [facility] STREP GROUP [id number] 13:33:00 Test Item Value Reference Range Interpretation Comments Culture Observations BETA HEMOLYTIC (test code = COB1) STREPTOCOCCUS GROUP C ISOLATED Direct Exam (test code NEGATIVE FOR STREP A = DE1) ANTIGEN SARS-CoV (RAPID ANTIGEN)2020-05-28 07:55:00 Test Item Value Reference Range Interpretation Comments SARS-CoV (ANTIGEN) NEGATIVE NEGATIVE (test code = COVAG) COVID AG (test This test has been code = COVAGC) marketed under the FDA Emergency Use Authorization (EUA) to meet challenges of the COVID-19 pandemic. The validation standards normally enforced by the FDA and the [employer] [place] (CAP) are more stringent than those required for this test. Therefore, the result should be interpreted with caution and close attention to other clinical and epidemiological data [id number] 07:38:00 Test Item Value Reference Range Interpretation [...] code = LEUK) NEGATIVE NEGATIVE BRAIN NATRIURETIC [id number] 06:26:00 Test Item Value Reference Range Interpretation Comments proBNP (test code = PBNP) 20 pg/mL 0-125 AMYLASE AND [id number] 06:24:00 Test Item Value Reference Range Interpretation Comments AMYLASE (test code = 10A) 55 U/L 28-100 LIPASE (test code = 60A) 221 IU/L 73-393 [id number] 06:24:00 Test Item Value Reference Range Interpretation Comments CPK (test code = 32A) 100 IU/L 39-308 COMPREHENSIVE METABOLIC [id number] 06:24:00 Test Item Value Reference Range Interpretation [...] 03E) GFR (test code = GFR) 81 mL/min/1.73m\\S\\2 >=90 L GFR 94 mL/min/1.73m\\S\\2 >=90 (test code = GFRAA) EGFR (test [...] code = 31A) 59 IU/L <=78 LDH-LACTIC [id number] 06:23:00 Test Item Value Reference Range Interpretation Comments LDH (test code = 33A) 195 IU/L 100-190 H [id number] 06:23:00 Test Item Value Reference Range Interpretation Comments FERRITIN (test code = A19) 122.3 ng/mL 26.0-388.0 TROPONIN [id number] 06:21:00 Test Item Value Reference Range Interpretation Comments TROPONIN I (test code = A84) <0.015 ng/mL 0.000-0.045 [id number] 06:18:00 Test Item Value Reference Range Interpretation Comments MAGNESIUM (test code = 48A) 2.2 mg/dL 1.8-2.4 C-REACTIVE PROTEIN [id number] 06:17:00 Test Item Value Reference Range Interpretation Comments CRP QUANT (test code <2.9 mg/L 0.0-2.9 = CRPQ) Method Change (test Please note the code = METHOD) change in Method and the reference range DIRECT INFLUENZA A AND B [id number] 06:16:00 Test Item Value Reference Range Interpretation Comments Direct Exam (test PRESUMPTIVE NEGATIVE FOR code = DE1) THE PRESENCE OF INFLUENZA ANTIGEN PRO TIME AND [id number] 06:12:00 Test Item Value Reference Range Interpretation Comments PT (test code = 9.8 s 9.8-13.6 TT) INR (test code = 0.9 INR) INRH (test code = SUGGESTED THERAPEUTIC INRH) RANGE FOR INR: 2.5 - 3.5 For Patients with Prosthetic Valves or Patients with recurrent Thromboembolic Events 2.0 - 3.0 For Most Other Applications PTT (test code = 35.4 s 20.2-38.0 PTT) PTTH (test code = To monitor the PTTH) effectiveness of heparin, we offer the Anti-Xa (Heparin Assay). It can be used for either unfractionated or LMW Heparin. Order Code is ANTI-XA [id number] 06:12:00 Test Item Value Reference Range Interpretation Comments D-DIMER (test code = <200 ng/mL D-DU 0-234 DDI) D-DIMER COMMENT (test *Level to rule out code = DDCOM) DVT or PE: <235 ng/mL D-DU* Venous Blood [id number] 06:03:00 Test Item Value Reference Range Interpretation Comments VpH (test code = 7.383 7.300-7.400 VPHRT) VpCO2 (test code = 46.0 mmHg 40.0-50.0 MPXY9WA) VpO2 (test code = 55.5 mmHg 30.0-40.0 H VPO2RT) HCO3? (test code = 26.8 mmol/L 22.0-26.0 H HCO3) RADHA (test code = RADHA) 1.7 mmol/L -3.0-3.0 tHb (test code = 15.1 g/dL 14.0-18.0 THBRT) vsO2 (test code = 90.7 % 55.0-75.0 H VSO2RT) FO2Hb (test code = 86.2 % ND7MXVHD) FCOHb (test code = 3.5 % FCOHBRTV) FMetHb (test code = 1.4 % FMETHBRTV) ABGTEMP (test code = * Temp Corrected Values* ABGTEMP) ABGTEMP (test code = 37.0 ?C ABGTEMP.) pH (T) (test code = 7.383 7.300-7.400 PHTEMPV) pCO2 (T) (test code = 46.0 mmHg 40.0-50.0 SUA7QVKMO) pO2 (T) (test code = 55.5 mmHg 30.0-40.0 H MH0WFUKV) Device (test code = ROOM AIR DEVICE) [...] Comments WBC (test code = WBC) 10.9 10\\S\\3/uL 4.5-11.0 RBC (test code = RBC) 4.56 10\\S\\6/uL 4.30-5.70 HGB (test code = HBG) 14.6 g/dL 14.0-18.0 HCT (test code = HCT) 43.6 % 35.0-46.0 MCV (test code = MCV) 95.6 fL 80.0-94.0 H MCH (test code = MCH) 32.0 pg 27.0-31.0 H MCHC (test code = MCHC) 33.5 g/dL 32.0-36.0 RDW (test code = RDW) 13.4 % 11.5-14.5 PLT (test code = PLT) 231 10\\S\\3/uL 130-400 MPV (test code = MPV) 11.1 fL 9.4-12.4 NEUTROP # (test code = NE#) 4.6 10\\S\\3/uL 2.0-8.0 LYMPH # (test code = LY#) 4.2 10\\S\\3/uL 1.2-4.0 H MONOCYTE # (test code = MO#) 0.5 10\\S\\3/uL 0.0-1.1 EOSINOPH # (test code = EO#) 1.5 10\\S\\3/uL 0.0-0.7 H BASOPHIL # (test code = BA#) 0.1 10\\S\\3/uL 0.0-0.3 IG # (test code = IG#) 0.05 10\\S\\3/uL 0.00-0.06 NRBC # (test code = NRBC#) 0.00 10\\S\\3/uL 0.00-0.01 NEUTROPH % (test code = NE%) [...] (test code = RBCMOR) NORMAL COVID-19 qualitative [id number] 05:07:48 Test Item Value Reference Range Interpretation Comments Interpretation (test Negative results do code = 1325431) not preclude 2019-nCoV infection and should not be used as the sole basis for treatment or other patient management decisions. Negative results must be combined with clinical observations, patient history, and epidemiological information. COVID-19 qualitative Not-Detected Not-Detected RT-PCR result (test code = 43661-7) COVID-19 qualitative See link below for C ase Number: RT-PCR (test code = PDF Lab Report [id number]) [facility]2018-09-26 20:23:00 Test Item Value Reference Range Interpretation Comments AGAP (test code = AGAP) 9.8 10.0-20.0 [id number] 20:23:00 Test Item Value Reference Range Interpretation Comments Globulin (test code = Globulin) 2.9 2.7-4.2 [facility] Hospi[id number] 20:23:00 Test Item Value Reference Range Interpretation Comments A/G Ratio (test code = A/G Ratio) 1.3 1 0.7-1.6 [facility][id number] 20:23:00 Test Item Value Reference Range Interpretation Comments B/C Ratio (test code = B/C Ratio) 12 1 6-25 [facility]CoslixqPBGGMWEGRDOE1589-46-04 20:23:00 Test Item Value Reference Range Interpretation Comments eGFR (test code = eGFR) 101 [facility]IuvszkqGKYXIEDEDJPI9510-35-01 20:23:00 Test Item Value Reference Range Interpretation Comments Bili Total (test code = Bili Total) 0.5 0.2-1.3 [facility] HospitalIxaculoLBAEFADBTUCT3052-77-22 20:23:00 Test Item Value Reference Range Interpretation Comments Alk Phos (test code = Alk Phos) 54 39-136 [facility] HospitalVmvuzzjTVQAPQMOPJAR5767-28-23 20:23:00 Test Item Value Reference Range Interpretation Comments Total Protein (test code = Total 6.7 6.4-8.4 Protein) [facility]IqumrqlXONVRVQRLASF9697-42-25 20:23:00 Test Item Value Reference Range Interpretation Comments Albumin Lvl (test code = Albumin Lvl) 3.8 3.5-5.0 [facility]OhrccceBSDCDGNKOVZM2303-75-55 20:23:00 Test Item Value Reference Range Interpretation Comments Calcium Lvl (test code = Calcium Lvl) 8.2 8.5-10.5 [facility] HospitalHrcafmlFGGQROFZVSUC7213-08-01 20:23:00 Test Item Value Reference Range Interpretation Comments ALT (test code = ALT) 20 See_Comment [Auto mated message] The system which ge nerated this result transmit ezequiel reference range : <=65. The reference range was not used to interpr et this result as grace l/abnormal. [facility] HospitalFvoghpzOLOOITHOJTOI0821-44-41 20:23:00 Test Item Value Reference Range Interpretation Comments AST (test code = AST) 30 See_Comment [Auto mated message] The system which ge nerated this result transmit ezequiel reference range : <=37. The reference range was not used to interpr et this result as grace l/abnormal. [facility] HospitalFubtstjSHAHRJWEWDPA7828-44-86 20:23:00 Test Item Value Reference Range Interpretation Comments Sodium Lvl (test code = Sodium Lvl) 142 135-145 [facility] HospitalGkhtxysSJKKMBCMDJJO1950-67-69 20:23:00 Test Item Value Reference Range Interpretation Comments Potassium Lvl (test code = Potassium 4.8 3.5-5.1 Lvl) [facility] HospitalXlxlhquTUQDPZOJCISF6559-08-43 20:23:00 Test Item Value Reference Range Interpretation Comments Creatinine Lvl (test code = Creatinine 1.00 0.50-1.40 Lvl) [facility] HospitalLioqlhpPLWRYTFPXAHS3495-42-47 20:23:00 Test Item Value Reference Range Interpretation Comments Chloride Lvl (test code = Chloride Lvl) 111 95-109 [facility]XadzhxvPHLWXTEYBWQV1097-39-91 20:23:00 Test Item Value Reference Range Interpretation Comments CO2 (test code = CO2) 26 24-32 [facility] HospitalRsujsrmCCURVVRLVTLY5605-35-16 20:23:00 Test Item Value Reference Range Interpretation Comments Glucose Lvl (test code = Glucose Lvl) 93 70-99 [facility] HospitalIkchyjfCCXDXDELURQN2595-10-33 20:23:00 Test Item Value Reference Range Interpretation Comments BUN (test code = BUN) 12 7-22 [facility]enIooilzyLRBYLIZSGI3723-76-93 20:23:00 Test Item Value Reference Range Interpretation Comments Basophils # (test code 0.1 See_Comment [Aut omated message] The = Basophils #) system which generated this result tra nsmitted reference range : <=0.2. The reference r tony was not used to int erpret this result as normal/abnormal . [facility] HospitalQwevjspAXWRXOUXIX6321-46-75 20:23:00 Test Item Value Reference Range Interpretation Comments Eosinophils # (test code 0.1 See_Comment [A utomated message] The = Eosinophils #) system whic h generated this result tra nsmitted reference range : <=0.5. The reference r tony was not used to int erpret this result as normal/abnormal . [facility] HospitalPkmzminRDIFOWEDVV3623-12-22 20:23:00 Test Item Value Reference Range Interpretation Comments Lymphocytes (test code = Lymphocytes) 16.2 20.0-40.0 [facility] HospitalGklvreaKIPNZZSHXF8205-65-93 20:23:00 Test Item Value Reference Range Interpretation Comments Monocytes (test code = Monocytes) 4.7 2.0-12.0 [facility] HospitalXjnkrinAYMUWVXCYG7747-79-51 20:23:00 Test Item Value Reference Range Interpretation Comments Neutrophils # (test code = Neutrophils 9.7 1.5-8.1 #) [facility] HospitalAwbwsgnGSBWFATVKR4156-50-54 20:23:00 Test Item Value Reference Range Interpretation Comments Eosinophils (test code = 0.7 See_Comment [A utomated message] The Eosinophils) system which ge nerated this result tra nsmitted reference range : <=4.0. The reference r tony was not used to int erpret this result as normal/abnormal . [facility] HospitalSaovaalIIWRTHMJIO8400-99-03 20:23:00 Test Item Value Reference Range Interpretation Comments Basophils (test code = 0.6 See_Comment [Aut omated message] The Basophils) system which ge nerated this result tra nsmitted reference range : <=1.0. The reference r tony was not used to int erpret this result as normal/abnormal . [facility] HospitalNkyoawjDVPFZELEHF9081-93-23 20:23:00 Test Item Value Reference Range Interpretation Comments Segs (test code = Segs) 77.8 45.0-75.0 [facility] HospitalEiuuiwnVZKJYSQROP9653-50-83 20:23:00 Test Item Value Reference Range Interpretation Comments Monocytes # (test code 0.6 See_Comment [Aut omated message] The = Monocytes #) system which generated this result tra nsmitted reference range : <=0.8. The reference r tony was not used to int erpret this result as normal/abnormal . [facility] HospitalSpwwgygXDLQWQNNXU5108-47-46 20:23:00 Test Item Value Reference Range Interpretation Comments Lymphocytes # (test code = Lymphocytes 2.0 1.0-5.5 #) [facility] HospitalGrjpamfMOXEQNCTJK4675-69-23 20:23:00 Test Item Value Reference Range Interpretation Comments RDW (test code = RDW) 13.2 11.5-14.5 [facility] HospitalFxsepjdOTSJETGPPJ0669-27-38 20:23:00 Test Item Value Reference Range Interpretation Comments MCV (test code = MCV) 94.1 80.0-94.0 [facility] HospitalTzfyxbpVFFGMVZSGU8052-89-22 20:23:00 Test Item Value Reference Range Interpretation Comments MCHC (test code = MCHC) 32.7 32.0-36.0 [facility] HospitalMijadggFPUSGJQKPZ3004-79-23 20:23:00 Test Item Value Reference Range Interpretation Comments MCH (test code = MCH) 30.7 pg 27.0-31.0 [facility] HospitalEcfzemyRKQLMHCZWG7343-91-05 20:23:00 Test Item Value Reference Range Interpretation Comments Platelet (test code = Platelet) 199 133-450 [facility] HospitalDotrhycRRLOIKKJUH9837-42-90 20:23:00 Test Item Value Reference Range Interpretation Comments MPV (test code = MPV) 10.0 7.4-10.4 [facility] HospitalEanocghKCLPNMGKBJ0333-03-94 20:23:00 Test Item Value Reference Range Interpretation Comments Hgb (test code = Hgb) 13.3 14.0-18.0 [facility] HospitalDrqhiamONPNAXFSMR4429-93-96 20:23:00 Test Item Value Reference Range Interpretation Comments RBC (test code = RBC) 4.31 4.70-6.10 [facility] HospitalJbzxggfMXILYWECLN2169-69-11 20:23:00 Test Item Value Reference Range Interpretation Comments Hct (test code = Hct) 40.6 42.0-54.0 [facility] HospitalIzirgmhBGAIQTLOWL3195-69-86 20:23:00 Test Item Value Reference Range Interpretation Comments WBC (test code = WBC) 12.4 3.7-10.4 [facility] HospitalMwfhuipCMZFRVPUEZ5218-35-56 20:23:00 Test Item Value Reference Range Interpretation Comments INR (test code = INR) 1.10 1 0.85-1.17 [facility] HospitalJslvwpfHOXRHBZINY4965-17-50 20:23:00 Test Item Value Reference Range Interpretation Comments PT (test code = PT) 14.2 s 12.0-14.7 [facility]enKlikvmeNMBOKIKYLT0976-48-85 20:23:00 Test Item Value Reference Range Interpretation Comments PTT (test code = PTT) 26.1 s 22.9-35.8 [facility]KsgniwgUZXMJGMYBP9799-72-44 20:23:00 Test Item Value Reference Range Interpretation Comments Ethanol Lvl (test code = Ethanol Lvl) no gt [facility]enZfeculgVFIZAURFLO6808-79-33 20:23:00 Test Item Value Reference Range Interpretation Comments Etoh (%) (test code = Etoh (%)) no gt [facility] METABOLIC PANEL *[facility]2017-06-23 13:15:00 Test Item Value Reference Range Interpretation [...] 09D) 8.8 mg/dL 8.3-9.5 CBC (INCLUDES AUTOMATED DIFFERENTIAL)*[id number] 13:04:00 Test Item Value Reference Range Interpretation Comments WBC (test code = WBC) 16.6 10\\S\\3/uL 4.5-11.0 H RBC (test code = RBC) 4.55 10\\S\\6/uL 4.30-5.70 HGB (test code = HBG) 14.5 g/dL 14.0-18.0 HCT (test code = HCT) 41.7 % 35.0-46.0 MCV (test code = MCV) 91.6 fL 80.0-94.0 MCH (test code = MCH) 31.9 pg 27.0-31.0 H MCHC (test code = MCHC) 34.8 g/dL 32.0-36.0 RDW (test code = RDW) 13.3 % 11.5-14.5 PLT (test code = PLT) 194 10\\S\\3/uL 130-400 MPV (test code = MPV) 11.7 fL 9.4-12.4 NEUTROP # (test code = NE#) 13.5 10\\S\\3/uL 2.0-8.0 H LYMPH # (test code = LY#) 1.6 10\\S\\3/uL 1.2-4.0 MONOCYTE # (test code = MO#) 0.9 10\\S\\3/uL 0.0-1.1 EOSINOPH # (test code = EO#) 0.5 10\\S\\3/uL 0.0-0.7 BASOPHIL # (test code = BA#) 0.1 10\\S\\3/uL 0.0-0.3 IG # (test code = IG#) 0.07 10\\S\\3/uL 0.00-0.06 H NRBC # (test code = NRBC#) 0.00 10\\S\\3/uL 0.00-0.01 NEUTROPH % (test code = NE%) [...] 2 VIEW *WW*2017-06-23 12:51:56Exam: Chest 2 viewsLocation: S5Ynbkcum: cough, recent pneumonia.Comparison: 10/23/2016.Findings:The lungs are clear. Central peribronchial cuffing is present. No infiltrate oreffusion is seen. The pulmonary vasculature is normal. The heart size isnormal. The mediastinal silhouette is unremarkable. Thebony thorax is intact.Impression:Bronchitis .CT STONE PROTOCOL [id number] 01:06:08AFTER HOURS SERVICE ON: 06/22/2017 1:03 AMCT Scan of the Abdomen and Pelvis Without ContrastLocation Code [id number]: L flank painTechnique: Axial and reconstructed coronal scans were performed on a helicalscanner pre oral and IV contrast. Study is limited secondary to lack of oraland IV contrast. One or more of the following dose reduction techniques were used: Automatedexposure control, adjustment of the mA and/or kV according to patient size,and/or utilization of iterative reconstruction technique.Findings: Liver: No significant findings. Gallbladder/Biliary: No significant findings. Pancreas: Nosignificant findings. Spleen: No significant findings.Adrenals: No significant findings. Kidneys: Nonephrolithiasis or hydronephrosis. Bladder: No significant findings. Bowel: No significant findings.The appendix is not visualized.Other: Patchy bilateral alveolar densities are seen in the lower lobes, rightgreater than left: Likely pneumonia. There are rounded sclerotic lesions in theright proximalfemur without significant change from 07/18/13. There is nopathologic fracture.Impression:1. Bilateral lower lobe pneumonia.2. No nephrolithiasis or obstructive uropathy.3. Nonvisualization of the appendix. The bowel is otherwise unremarkable. Noinflammatory changes seen.U/S TESTICULAR 2017-06-22 00:58:11U/S TESTICULARLocation: D5Uyzgq hours services provided 06/22/2017 12:56 AMIndication: L [...] with no acute testicular or epididymalabnormality.AMYLASE AND [id number] 00:33:00 Test Item Value Reference Range Interpretation Comments AMYLASE (test code = 10A) 65 U/L 28-100 LIPASE (test code = 60A) 140 IU/L 73-393 COMPREHENSIVE METABOLIC [id number] 00:33:00 Test Item Value Reference Range Interpretation [...] (test code = 31A) 29 IU/L <=78 [id number] 00:31:00 Test Item Value Reference Range Interpretation [...] Comments WBC (test code = WBC) 10.2 10\\S\\3/uL 4.5-11.0 RBC (test code = RBC) 4.97 10\\S\\6/uL 4.30-5.70 HGB (test code = HBG) 15.5 g/dL 14.0-18.0 HCT (test code = HCT) 45.0 % 35.0-46.0 MCV (test code = MCV) 90.5 fL 80.0-94.0 MCH (test code = MCH) 31.2 pg 27.0-31.0 H MCHC (test code = MCHC) 34.4 g/dL 32.0-36.0 RDW (test code = RDW) 13.4 % 11.5-14.5 PLT (test code = PLT) 210 10\\S\\3/uL 130-400 MPV (test code = MPV) 11.3 fL 9.4-12.4 NEUTROP # (test code = NE#) 6.1 10\\S\\3/uL 2.0-8.0 LYMPH # (test code = LY#) 2.5 10\\S\\3/uL 1.2-4.0 MONOCYTE # (test code = MO#) 1.1 10\\S\\3/uL 0.0-1.1 EOSINOPH # (test code = EO#) 0.5 10\\S\\3/uL 0.0-0.7 BASOPHIL # (test code = BA#) 0.1 10\\S\\3/uL 0.0-0.3 IG # (test code = IG#) 0.04 10\\S\\3/uL 0.00-0.06 NRBC # (test code = NRBC#) 0.00 10\\S\\3/uL 0.00-0.01 NEUTROPH % (test code = NE%) [...] RBC MORPH (test code = RBCMOR) NORMAL CHEM [id number] 00:46:00 Test Item Value Reference Range Interpretation Comments B/C Ratio (test code = B/C Ratio) 14 6-25 [facility] [employer] [id number] 00:46:00 Test Item Value Reference Range Interpretation Comments A/G Ratio (test code = A/G Ratio) 1.2 0.7-1.6 [facility] [employer] [id number] 00:46:00 Test Item Value Reference Range Interpretation Comments Globulin (test code = Globulin) 3.6 2.7-4.2 [facility] [employer] [id number] 00:46:00 Test Item Value Reference Range Interpretation Comments AGAP (test code = AGAP) 11.0 10.0-20.0 [facility] [employer] [id number] 00:46:00 Test Item Value Reference Range Interpretation Comments eGFR (test code = eGFR) 106 [facility] [employer] [id number] 00:46:00 Test Item Value Reference Range Interpretation Comments Albumin Lvl (test code = Albumin Lvl) 4.2 3.5-5.0 [facility] [employer] [id number] 00:46:00 Test Item Value Reference Range Interpretation Comments Total Protein (test code = Total 7.8 6.4-8.4 Protein) [facility] [employer] [id number] 00:46:00 Test Item Value Reference Range Interpretation Comments ALT (test code = ALT) 22 See_Comment [Auto mated message] The system which ge nerated this result transmit ezequiel reference range : <=65. The reference range was not used to interpr et this result as grace l/abnormal. [facility]2017-06-19 00:46:00 Test Item Value Reference Range Interpretation Comments Alk Phos (test code = Alk Phos) 72 39-136 [facility]2017-06-19 00:46:00 Test Item Value Reference Range Interpretation Comments Bili Total (test code = Bili Total) 0.6 0.2-1.3 [facility]2017-06-19 00:46:00 Test Item Value Reference Range Interpretation Comments AST (test code = AST) 15 See_Comment [Auto mated message] The system which ge nerated this result transmit ezequiel reference range : <=37. The reference range was not used to interpr et this result as grace l/abnormal. [facility]2017-06-19 00:46:00 Test Item Value Reference Range Interpretation Comments Potassium Lvl (test code = Potassium 4.0 3.5-5.1 Lvl) [facility]2017-06-19 00:46:00 Test Item Value Reference Range Interpretation Comments Chloride Lvl (test code = Chloride Lvl) 108 95-109 [facility]2017-06-19 00:46:00 Test Item Value Reference Range Interpretation Comments CO2 (test code = CO2) 26 24-32 [facility]2017-06-19 00:46:00 Test Item Value Reference Range Interpretation Comments Calcium Lvl (test code = Calcium Lvl) 9.4 8.5-10.5 [facility]2017-06-19 00:46:00 Test Item Value Reference Range Interpretation Comments Glucose Lvl (test code = Glucose Lvl) 108 70-99 [facility]2017-06-19 00:46:00 Test Item Value Reference Range Interpretation Comments Creatinine Lvl (test code = Creatinine 0.97 0.50-1.40 Lvl) [facility]2017-06-19 00:46:00 Test Item Value Reference Range Interpretation Comments BUN (test code = BUN) 14 7-22 [facility]2017-06-19 00:46:00 Test Item Value Reference Range Interpretation Comments Sodium Lvl (test code = Sodium Lvl) 141 135-145 [facility]2017-06-19 00:46:00 Test Item Value Reference Range Interpretation Comments Lipase Lvl (test code = Lipase Lvl) 197 73-393 [facility] HospitalAtrnyypDLMBAJWEYX3221-42-30 00:46:00 Test Item Value Reference Range Interpretation Comments Lymphocytes (test code = Lymphocytes) 18.8 20.0-40.0 [facility] HospitalGqgoygeRBWRYDDDVO9226-86-34 00:46:00 Test Item Value Reference Range Interpretation Comments Segs (test code = Segs) 70.6 45.0-75.0 [facility] HospitalJbjsnhkLSFWPRFCRP1950-71-98 00:46:00 Test Item Value Reference Range Interpretation Comments Eosinophils # (test code 0.2 See_Comment [A utomated message] The = Eosinophils #) system wh h generated this result tra nsmitted reference range : <=0.5. The reference r tony was not used to int erpret this result as normal/abnormal . [facility] HospitalHldehdxSLTLRXZECC0871-61-80 00:46:00 Test Item Value Reference Range Interpretation Comments Monocytes # (test code 0.8 See_Comment [Aut omated message] The = Monocytes #) system which generated this result tra nsmitted reference range : <=0.8. The reference r tony was not used to int erpret this result as normal/abnormal . [facility] HospitalYzeebazOAFHGBQOZE0399-51-05 00:46:00 Test Item Value Reference Range Interpretation Comments Monocytes (test code = Monocytes) 8.3 2.0-12.0 [facility] HospitalGtvliyzUKYPWRATXY0066-20-46 00:46:00 Test Item Value Reference Range Interpretation Comments Eosinophils (test code = 2.0 See_Comment [A utomated message] The Eosinophils) system which ge nerated this result tra nsmitted reference range : <=4.0. The reference r tony was not used to int erpret this result as normal/abnormal . [facility] HospitalGtbpbzlCUCNHDGXUD9361-95-20 00:46:00 Test Item Value Reference Range Interpretation Comments Basophils (test code = 0.3 See_Comment [Aut omated message] The Basophils) system which ge nerated this result tra nsmitted reference range : <=1.0. The reference r tony was not used to int erpret this result as normal/abnormal . [facility] HospitalFnlxlraUDGFGOCJVM0827-07-88 00:46:00 Test Item Value Reference Range Interpretation Comments Segs-Bands # (test code = Segs-Bands #) 7.2 1.5-8.1 [facility]RrgvjqfOUTENIFFYY4371-65-96 00:46:00 Test Item Value Reference Range Interpretation Comments Lymphocytes # (test code = Lymphocytes 1.9 1.0-5.5 #) [facility] HospitalWkndtqyWAAWRTPNTP5687-88-35 00:46:00 Test Item Value Reference Range Interpretation Comments MCHC (test code = MCHC) 34.2 32.0-36.0 [facility] HospitalImjtttrRTJIJGIUPS2166-02-08 00:46:00 Test Item Value Reference Range Interpretation Comments MPV (test code = MPV) 9.8 7.4-10.4 [facility] HospitalJhfxcszNNKJLFBXFM5046-48-68 00:46:00 Test Item Value Reference Range Interpretation Comments Platelet (test code = Platelet) 189 133-450 [facility] HospitalWryfjzyECDEJVWQWF9143-34-05 00:46:00 Test Item Value Reference Range Interpretation Comments RDW (test code = RDW) 13.8 11.5-14.5 [facility] HospitalDxnjxdnCPYSJNDLGP6012-45-76 00:46:00 Test Item Value Reference Range Interpretation Comments MCH (test code = MCH) 32.6 pg 27.0-31.0 [facility] HospitalLlwoapqQMSMPQOPNA4685-99-52 00:46:00 Test Item Value Reference Range Interpretation Comments Hct (test code = Hct) 47.3 42.0-54.0 [facility] HospitalNagjgkuQHCJAGCHYC6358-12-91 00:46:00 Test Item Value Reference Range Interpretation Comments Hgb (test code = Hgb) 16.2 14.0-18.0 [facility] HospitalOocfxkgHXSXDKPLNO3201-18-11 00:46:00 Test Item Value Reference Range Interpretation Comments MCV (test code = MCV) 95.2 80.0-94.0 [facility] HospitalCxvhxtgVSNRKQLBVL9733-72-92 00:46:00 Test Item Value Reference Range Interpretation Comments WBC (test code = WBC) 10.2 3.7-10.4 [facility]enSdtnloyIVHCALZXRL6842-55-18 00:46:00 Test Item Value Reference Range Interpretation Comments RBC (test code = RBC) 4.97 4.70-6.10 [facility] AND [id number] 00:46:00 Test Item Value Reference Range Interpretation Comments UA Urobilinogen (test code = UA <=1.0 mg/dL 0.1-1.0 Urobilinogen) [facility] AND [id number] 00:46:00 Test Item Value Reference Range Interpretation Comments UA Nitrite (test code Negative (11/18/16 7:46 = UA Nitrite) PM) [facility] AND [id number] 00:46:00 Test Item Value Reference Range Interpretation Comments UA WBC (test code = 2 See_Comment [Automa ezequiel message] The UA WBC) system which ge nerated this result transmit ezequiel reference range : <=5. The reference range was not used to interpr et this result as grace l/abnormal. [facility] AND [id number] 00:46:00 Test Item Value Reference Range Interpretation Comments UA Sq Epi (test code = UA Sq Occasional /LPF Epi) [facility] AND [id number] 00:46:00 Test Item Value Reference Range Interpretation Comments UA Blood (test code = Negative (11/18/16 7:46 UA Blood) PM) [facility] AND [id number] 00:46:00 Test Item Value Reference Range Interpretation Comments UA Leuk Est (test Negative (11/18/16 7:46 code = UA Leuk Est) PM) [facility] AND [id number] 00:46:00 Test Item Value Reference Range Interpretation Comments UA Bili (test code = Negative *NA*(11/18/16 UA Bili) 7:46 PM) [facility] AND [id number] 00:46:00 Test Item Value Reference Range Interpretation Comments UA Protein (test code = UA Negative mg/dL Protein) [facility] AND [id number] 00:46:00 Test Item Value Reference Range Interpretation Comments UA pH (test code = UA pH) 5.0 5.0-8.0 [facility] AND [id number] 00:46:00 Test Item Value Reference Range Interpretation Comments UA Ketones (test code = UA Ketones) 20 mg/dL [facility] AND [id number] 00:46:00 Test Item Value Reference Range Interpretation Comments UA Glucose (test code = UA Negative mg/dL Glucose) [facility] AND [id number] 00:46:00 Test Item Value Reference Range Interpretation Comments UA Spec Grav (test code = UA Spec Grav) 1.032 [facility] AND [id number] 00:46:00 Test Item Value Reference Range Interpretation Comments UA Mucus (test code = UA Mucus) Many /LPF [facility] AND [id number] 00:46:00 Test Item Value Reference Range Interpretation Comments UA RBC (test code = 1 See_Comment [Automa ezequiel message] The UA RBC) system which ge nerated this result transmit ezequiel reference range : <=2. The reference range was not used to interpr et this result as grace l/abnormal. [facility] AND [id number] 00:46:00 Test Item Value Reference Range Interpretation Comments UA Color (test code = Yellow *NA*(11/18/16 UA Color) 7:46 PM) [facility] AND [id number] 00:46:00 Test Item Value Reference Range Interpretation Comments UA Turbidity (test code Slight *ABN*(11/18/16 = UA Turbidity) 7:46 PM) [facility] MULLEN *WW*2016-10-23 14:38:00 Test Item Value [...] 60A) 100 IU/L 73-393 CBC (INCLUDES AUTOMATED DIFFERENTIAL)*[id number] 14:19:00 Test Item Value Reference Range Interpretation Comments WBC (test code = WBC) 5.7 10\\S\\3/uL 4.5-11.0 RBC (test code = RBC) 4.53 10\\S\\6/uL 4.30-5.70 HGB (test code = HBG) 14.7 g/dL 14.0-18.0 HCT (test code = HCT) 42.5 % 35.0-46.0 MCV (test code = MCV) 93.8 fL 80.0-94.0 MCH (test code = MCH) 32.5 pg 27.0-31.0 H MCHC (test code = MCHC) 34.6 g/dL 32.0-36.0 RDW (test code = RDW) 13.1 % 11.5-14.5 PLT (test code = PLT) 186 10\\S\\3/uL 130-400 MPV (test code = MPV) 11.4 fL 9.4-12.4 NEUTROP # (test code = NE#) 3.7 10\\S\\3/uL 2.0-8.0 LYMPH # (test code = LY#) 1.3 10\\S\\3/uL 1.2-4.0 MONOCYTE # (test code = MO#) 0.5 10\\S\\3/uL 0.0-1.1 EOSINOPH # (test code = EO#) 0.2 10\\S\\3/uL 0.0-0.7 BASOPHIL # (test code = BA#) 0.1 10\\S\\3/uL 0.0-0.3 IG # (test code = IG#) 0.02 10\\S\\3/uL 0.00-0.06 NRBC # (test code = NRBC#) 0.00 10\\S\\3/uL 0.00-0.01 NEUTROPH % (test code = NE%) [...] 2016-10-23 13:51:45Portable AP chest, 1 viewLocation Code: [id number] HISTORY: Abdominal painCOMPARISON: 07/14/2013COMMEN T: The lungs are clear and well inflated. The costophrenic angles are sharp. Thecardiomediastinal silhouette is unremarkable. The bones are intact.IMPRESSION: Stable chest with no acute abnormality.CT ABDOMEN AND PELVIS WITHOUT CONTRAST 2016-10-23 13:50:29CT abdomen and pelvis without contrastLocation Code: [id number] HISTORY: Abdominal painCOMPARISON: 03/2017Technique: Helical CT of [...] mass or fluid collection. The urinary bladder isunremarkable.There is no pelvic mass or fluid collection. The bones, skin, and surrounding soft tissues are unremarkable.IMPRESSION: Stable exam with no acute abnormality.CT ABDOMEN AND PELVIS WITH [id number] 21:28:44CT abdomen and pelvis with contrastLocation Code: [id number] HISTORY: Abdominal painCOMPARISON: 07/18/13, 07/13/13Technique: Helical CT [...] sigmoid colon with no wall thickening or a djacent inflammation. There isno free peritoneal air or fluid. The abdominal aorta is normal in caliber and contour. There is noretroperitoneal mass or fluid collection. The urinary bladder is unremarkable.There is no pelvic mass or fluid collection. The bones, skin, and surrounding soft tissues are un remarkable.IMPRESSION: No acute intra-abdominal or pelvic abnormality.DRUGS OF [id number] 21:03:00 Test Item Value Reference Range Interpretation [...] 200 ng/mL Opiates 2000 ng/mL URINALYSIS WITH [id number] 20:50:00 Test Item Value Reference Range Interpretation [...] code = USPERM) /HPF NONE AMYLASE AND [id number] 20:44:00 Test Item Value Reference Range Interpretation Comments AMYLASE (test code = 10A) 46 U/L 28-100 LIPASE (test code = 60A) 128 IU/L 73-393 COMPREHENSIVE METABOLIC [id number] 20:44:00 Test Item Value Reference Range Interpretation [...] Comments WBC (test code = WBC) 16.2 10\\S\\3/uL 4.5-11.0 H RBC (test code = RBC) 4.75 10\\S\\6/uL 4.30-5.70 HGB (test code = HBG) 15.1 g/dL 14.0-18.0 HCT (test code = HCT) 43.0 % 35.0-46.0 MCV (test code = MCV) 90.5 fL 80.0-94.0 MCH (test code = MCH) 31.8 pg 27.0-31.0 H MCHC (test code = MCHC) 35.1 g/dL 32.0-36.0 RDW (test code = RDW) 13.1 % 11.5-14.5 PLT (test code = PLT) 207 10\\S\\3/uL 130-400 MPV (test code = MPV) 12.8 fL 9.4-12.4 H NEUTROP # (test code = NE#) 10.7 10\\S\\3/uL 2.0-8.0 H LYMPH # (test code = LY#) 4.0 10\\S\\3/uL 1.2-4.0 MONOCYTE # (test code = MO#) 1.0 10\\S\\3/uL 0.0-1.1 EOSINOPH # (test code = EO#) 0.4 10\\S\\3/uL 0.0-0.7 BASOPHIL # (test code = BA#) 0.1 10\\S\\3/uL 0.0-0.3 IG # (test code = IG#) 0.06 10\\S\\3/uL 0.00-0.06 NRBC # (test code = NRBC#) 0.00 10\\S\\3/uL 0.00-0.01 NEUTROPH % (test code = NE%) [...] RBC MORPH (test code = RBCMOR) NORMAL CARDIAC [id number] 10:21:00 Test Item Value Reference Range Interpretation Comments Total CK (test code = Total CK) 274 12-191 [facility]QcnjhwaYYDALQTNXMRY2350-81-07 10:21:00 Test Item Value Reference Range Interpretation Comments AGAP (test code = AGAP) 14.0 10.0-20.0 [facility]VwqhugfYYSFCEPGZPRZ7182-64-24 10:21:00 Test Item Value Reference Range Interpretation Comments B/C Ratio (test code = B/C Ratio) 10 6-25 [facility]GceggklTLRKSEDKDQBT1110-94-91 10:21:00 Test Item Value Reference Range Interpretation Comments Globulin (test code = Globulin) 3.5 2.0-4.0 [facility]KhimqziBKDJBJUCJORP1486-89-88 10:21:00 Test Item Value Reference Range Interpretation Comments A/G Ratio (test code = A/G Ratio) 1.3 0.7-1.6 [facility]QugqndnCROYCBRKYLWW9634-21-83 10:21:00 Test Item Value Reference Range Interpretation Comments Bili Total (test code = Bili Total) 0.4 0.2-1.3 [facility]XvffakcMQIWTMEAORQO0317-55-88 10:21:00 Test Item Value Reference Range Interpretation Comments eGFR (test code = eGFR) 96 [facility]QuwxvvoSZCVGBNPLRFM3915-18-18 10:21:00 Test Item Value Reference Range Interpretation Comments Sodium Lvl (test code = Sodium Lvl) 140 135-145 [facility]PjmvrlgPJPOGLNKTVZZ1127-36-50 10:21:00 Test Item Value Reference Range Interpretation Comments CO2 (test code = CO2) 24 24-32 [facility]DgyobgtGFSIYMNOHHCR3067-58-59 10:21:00 Test Item Value Reference Range Interpretation Comments Calcium Lvl (test code = Calcium Lvl) 8.5 8.5-10.5 [facility] HospitalUlesrtcBFFTGNHMSBQX1391-40-40 10:21:00 Test Item Value Reference Range Interpretation Comments AST (test code = AST) 13 See_Comment [Auto mated message] The system which ge nerated this result transmit ezequiel reference range : <=37. The reference range was not used to interpr et this result as grace l/abnormal. [facility] HospitalNcxftmwQGHKNOBPXEQV4866-66-43 10:21:00 Test Item Value Reference Range Interpretation Comments Potassium Lvl (test code = Potassium 4.0 3.5-5.1 Lvl) [facility]WqltlgfSEEVRLXQPDBJ9659-38-52 10:21:00 Test Item Value Reference Range Interpretation Comments Chloride Lvl (test code = Chloride Lvl) 106 95-109 [facility]KcqulybUEVZWXWCSZEU4577-87-50 10:21:00 Test Item Value Reference Range Interpretation Comments Total Protein (test code = Total 7.9 6.4-8.4 Protein) [facility] HospitalGssrksoAAOIOZQFWGYX1937-89-26 10:21:00 Test Item Value Reference Range Interpretation Comments Albumin Lvl (test code = Albumin Lvl) 4.4 3.5-5.0 [facility] HospitalIzerfrsDZWRVCFSMATW1851-85-40 10:21:00 Test Item Value Reference Range Interpretation Comments ALT (test code = ALT) 29 See_Comment [Auto mated message] The system which ge nerated this result transmit ezequiel reference range : <=65. The reference range was not used to interpr et this result as grace l/abnormal. [facility] HospitalJbvkszoLNILHDWYSECM0885-99-42 10:21:00 Test Item Value Reference Range Interpretation Comments Alk Phos (test code = Alk Phos) 66 39-136 [facility] HospitalOlzmislSMTAEEARTNDK3139-09-28 10:21:00 Test Item Value Reference Range Interpretation Comments Creatinine Lvl (test code = Creatinine 1.06 0.50-1.40 Lvl) [facility] HospitalKdbydwwRRELRWIAKUKL1498-09-10 10:21:00 Test Item Value Reference Range Interpretation Comments BUN (test code = BUN) 11 7-22 [facility]OdqtbiuUHZFRJOEHAUC9384-41-12 10:21:00 Test Item Value Reference Range Interpretation Comments Glucose Lvl (test code = Glucose Lvl) 96 70-99 [facility]UprluwoDSOYTTRFMR2123-57-01 10:21:00 Test Item Value Reference Range Interpretation Comments INR (test code = INR) 1.03 0.85-1.17 [facility] HospitalDoeokwySJFUXKBREO3218-41-87 10:21:00 Test Item Value Reference Range Interpretation Comments PT (test code = PT) 13.8 s 12.0-14.7 [facility] HospitalBieyzycFSVSWZNVED4423-18-61 10:21:00 Test Item Value Reference Range Interpretation Comments WBC (test code = WBC) 13.5 3.7-10.4 [facility] HospitalOxouuxjNPSGKRLZBJ6728-44-54 10:21:00 Test Item Value Reference Range Interpretation Comments RBC (test code = RBC) 5.03 4.70-6.10 [facility] HospitalAiqdxrnTRWSAWJNAF6677-40-35 10:21:00 Test Item Value Reference Range Interpretation Comments Hgb (test code = Hgb) 15.5 14.0-18.0 [facility] HospitalAlrkkyzMKNTXOPYPP5138-37-40 10:21:00 Test Item Value Reference Range Interpretation Comments Hct (test code = Hct) 46.2 42.0-54.0 [facility] HospitalKfzinqiPYFQUWDNDM5879-35-45 10:21:00 Test Item Value Reference Range Interpretation Comments MPV (test code = MPV) 9.9 7.4-10.4 [facility] HospitalStwdwdfHHFZMOYUWK5476-86-40 10:21:00 Test Item Value Reference Range Interpretation Comments RDW (test code = RDW) 13.3 11.5-14.5 [facility] HospitalVhekqphYREWPXFTOJ4936-47-67 10:21:00 Test Item Value Reference Range Interpretation Comments MCHC (test code = MCHC) 33.5 32.0-36.0 [facility] HospitalSijfwxiXTENWGJRNR5812-93-27 10:21:00 Test Item Value Reference Range Interpretation Comments Platelet (test code = Platelet) 223 133-450 [facility] HospitalKidhtizCASKXMRLXI8212-13-69 10:21:00 Test Item Value Reference Range Interpretation Comments MCH (test code = MCH) 30.8 pg 27.0-31.0 [facility] HospitalRxaguzaXWPREYRIUV8910-20-47 10:21:00 Test Item Value Reference Range Interpretation Comments MCV (test code = MCV) 91.9 80.0-94.0 [facility] HospitalAmjsfjaAYHZWCOQDQ6672-65-12 10:21:00 Test Item Value Reference Range Interpretation Comments Lymphocytes # (test code = Lymphocytes 2.3 1.0-5.5 #) [facility] HospitalPyvqytzAJNGXHAXVM0385-53-14 10:21:00 Test Item Value Reference Range Interpretation Comments Basophils (test code = 0.4 See_Comment [Aut omated message] The Basophils) system which ge nerated this result tra nsmitted reference range : <=1.0. The reference r tony was not used to int erpret this result as normal/abnormal . [facility] HospitalIemxwdwNESYHYFVXX9962-64-63 10:21:00 Test Item Value Reference Range Interpretation Comments Monocytes # (test code 0.5 See_Comment [Aut omated message] The = Monocytes #) system which generated this result tra nsmitted reference range : <=0.8. The reference r tony was not used to int erpret this result as normal/abnormal . [facility] HospitalEdmvjtjYIQIBGLGJB5020-40-45 10:21:00 Test Item Value Reference Range Interpretation Comments Segs-Bands # (test code = Segs-Bands #) 10.4 1.5-8.1 [facility] HospitalPqhnbkwBGGCLNJBXJ4373-22-60 10:21:00 Test Item Value Reference Range Interpretation Comments Monocytes (test code = Monocytes) 3.4 2.0-12.0 [facility] HospitalXqsusydPGMOGPLHGF3335-20-20 10:21:00 Test Item Value Reference Range Interpretation Comments Lymphocytes (test code = Lymphocytes) 17.0 20.0-40.0 [facility] HospitalYdeclrvPWWMRWMQEI8152-39-63 10:21:00 Test Item Value Reference Range Interpretation Comments Eosinophils (test code = 2.3 See_Comment [A utomated message] The Eosinophils) system which ge nerated this result tra nsmitted reference range : <=4.0. The reference r tony was not used to int erpret this result as normal/abnormal . [facility] HospitalPfvayipUVCXUKMVBO3751-78-95 10:21:00 Test Item Value Reference Range Interpretation Comments Segs (test code = Segs) 76.9 45.0-75.0 [facility] HospitalCbqxlfqMCWHRRGSQK5135-05-27 10:21:00 Test Item Value Reference Range Interpretation Comments Eosinophils # (test code 0.3 See_Comment [A utomated message] The = Eosinophils #) system ic h generated this result tra nsmitted reference range : <=0.5. The reference r tony was not used to int erpret this result as normal/abnormal . [facility]BimjprqLFNESFTVXO9123-10-88 10:21:00 Test Item Value Reference Range Interpretation Comments Etoh (%) (test code = Etoh (%)) 0.141 [facility]MowcuzuFEQOZENFNY7169-87-82 10:21:00 Test Item Value Reference Range Interpretation Comments Ethanol Lvl (test code = Ethanol Lvl) 141 [facility] AND [id number] 07:00:00 Test Item Value Reference Range Interpretation Comments UA Turbidity (test code = Clear (06/08/15 1:00 UA Turbidity) AM) [facility] AND [id number] 07:00:00 Test Item Value Reference Range Interpretation Comments UA Spec Grav (test code = UA Spec 1.015 1 Grav) [facility] AND [id number] 07:00:00 Test Item Value Reference Range Interpretation Comments UA Color (test code = Yellow *NA*(06/08/15 1:00 UA Color) AM) [facility] AND [id number] 07:00:00 Test Item Value Reference Range Interpretation Comments UA WBC (test code = UA WBC) 0-2 /HPF [facility] AND [id number] 07:00:00 Test Item Value Reference Range Interpretation Comments UA Bacteria (test code = UA Occasional /HPF Bacteria) [facility] AND [id number] 07:00:00 Test Item Value Reference Range Interpretation Comments UA RBC (test code = 0-2 /HPF See_Comment [Automa ezequiel message] The UA RBC) system which ge nerated this result tra nsmitted reference range : <=2. The reference range was not used to interpr et this result as grace l/abnormal. [facility] AND [id number] 07:00:00 Test Item Value Reference Range Interpretation Comments UA Urobilinogen (test code = UA 0.2 0.1-1.0 Urobilinogen) [facility] AND [id number] 07:00:00 Test Item Value Reference Range Interpretation Comments UA Nitrite (test code Negative (06/08/15 1:00 = UA Nitrite) AM) [facility] AND [id number] 07:00:00 Test Item Value Reference Range Interpretation Comments Micro? (test code = Performed (06/08/15 1:00 Micro?) AM) [facility] AND [id number] 07:00:00 Test Item Value Reference Range Interpretation Comments UA Leuk Est (test Negative (06/08/15 1:00 code = UA Leuk Est) AM) [facility] AND [id number] 07:00:00 Test Item Value Reference Range Interpretation Comments UA Sq Epi (test code = UA Sq Epi) Few /LPF [facility] AND [id number] 07:00:00 Test Item Value Reference Range Interpretation Comments UA Protein (test code Negative (06/08/15 1:00 = UA Protein) AM) [facility] AND [id number] 07:00:00 Test Item Value Reference Range Interpretation Comments UA Glucose (test code Negative (06/08/15 1:00 = UA Glucose) AM) [facility] AND [id number] 07:00:00 Test Item Value Reference Range Interpretation Comments UA Bili (test code = Negative *NA*(06/08/15 UA Bili) 1:00 AM) [facility] AND [id number] 07:00:00 Test Item Value Reference Range Interpretation Comments UA Ketones (test code = UA Ketones) 15 mg/dL [facility] AND [id number] 07:00:00 Test Item Value Reference Range Interpretation Comments UA Blood (test code = Trace *ABN*(06/08/15 UA Blood) 1:00 AM) [facility] AND [id number] 07:00:00 Test Item Value Reference Range Interpretation Comments UA pH (test code = UA pH) 6.0 1 5.0-8.0 [facility]2016-01-06 05:32:00 Test Item Value Reference Range Interpretation Comments Lipase Lvl (test code = Lipase Lvl) 91 73-393 [facility]2016-01-06 05:32:00 Test Item Value Reference Range Interpretation Comments B/C Ratio (test code = B/C Ratio) 9 6-25 [facility]2016-01-06 05:32:00 Test Item Value Reference Range Interpretation Comments AGAP (test code = AGAP) 12.8 10.0-20.0 [facility]2016-01-06 05:32:00 Test Item Value Reference Range Interpretation Comments Globulin (test code = Globulin) 3.7 2.0-4.0 [facility]2016-01-06 05:32:00 Test Item Value Reference Range Interpretation Comments A/G Ratio (test code = A/G Ratio) 1.1 0.7-1.6 [facility]2016-01-06 05:32:00 Test Item Value Reference Range Interpretation Comments eGFR (test code = eGFR) 77 [facility]2016-01-06 05:32:00 Test Item Value Reference Range Interpretation Comments Glucose Lvl (test code = Glucose Lvl) 114 70-99 [facility]2016-01-06 05:32:00 Test Item Value Reference Range Interpretation Comments BUN (test code = BUN) 11 7-22 [facility]2016-01-06 05:32:00 Test Item Value Reference Range Interpretation Comments AST (test code = AST) 23 See_Comment [Auto mated message] The system which ge nerated this result transmit ezequiel reference range : <=37. The reference range was not used to interpr et this result as grace l/abnormal. [facility]2016-01-06 05:32:00 Test Item Value Reference Range Interpretation Comments Alk Phos (test code = Alk Phos) 72 39-136 [facility]2016-01-06 05:32:00 Test Item Value Reference Range Interpretation Comments ALT (test code = ALT) 34 See_Comment [Auto mated message] The system which ge nerated this result transmit ezequiel reference range : <=65. The reference range was not used to interpr et this result as grace l/abnormal. [facility]2016-01-06 05:32:00 Test Item Value Reference Range Interpretation Comments Chloride Lvl (test code = Chloride Lvl) 102 95-109 [facility]2016-01-06 05:32:00 Test Item Value Reference Range Interpretation Comments Creatinine Lvl (test code = Creatinine 1.28 0.50-1.40 Lvl) [facility]2016-01-06 05:32:00 Test Item Value Reference Range Interpretation Comments Sodium Lvl (test code = Sodium Lvl) 135 135-145 [facility]2016-01-06 05:32:00 Test Item Value Reference Range Interpretation Comments Potassium Lvl (test code = Potassium 3.8 3.5-5.1 Lvl) [facility]2016-01-06 05:32:00 Test Item Value Reference Range Interpretation Comments Bili Total (test code = Bili Total) 0.5 0.2-1.3 [facility]2016-01-06 05:32:00 Test Item Value Reference Range Interpretation Comments Calcium Lvl (test code = Calcium Lvl) 8.5 8.5-10.5 [facility]2016-01-06 05:32:00 Test Item Value Reference Range Interpretation Comments CO2 (test code = CO2) 24 24-32 [facility]2016-01-06 05:32:00 Test Item Value Reference Range Interpretation Comments Albumin Lvl (test code = Albumin Lvl) 4.1 3.5-5.0 [facility]2016-01-06 05:32:00 Test Item Value Reference Range Interpretation Comments Total Protein (test code = Total 7.8 6.4-8.4 Protein) [facility] HospitalLiyvluiQXCDNPSHBZ1021-09-60 05:32:00 Test Item Value Reference Range Interpretation Comments Platelet (test code = Platelet) 196 133-450 [facility] HospitalDcjbmghGEEHDBRFWS9711-24-24 05:32:00 Test Item Value Reference Range Interpretation Comments RDW (test code = RDW) 12.4 11.5-14.5 [facility] HospitalAsingmoDDAEULYUKJ5992-16-87 05:32:00 Test Item Value Reference Range Interpretation Comments MPV (test code = MPV) 10.1 7.4-10.4 [facility] HospitalHawamdnAMADNCLHAB0962-60-10 05:32:00 Test Item Value Reference Range Interpretation Comments MCH (test code = MCH) 30.6 pg 27.0-31.0 [facility] HospitalRukkwhyJHJQZIHVCY5865-42-97 05:32:00 Test Item Value Reference Range Interpretation Comments MCV (test code = MCV) 92.6 80.0-94.0 [facility] HospitalRbmdfmcIRCCDOXFHP6341-70-07 05:32:00 Test Item Value Reference Range Interpretation Comments Hct (test code = Hct) 45.9 42.0-54.0 [facility] HospitalHbstdavBZNSUTMETE6454-53-26 05:32:00 Test Item Value Reference Range Interpretation Comments Hgb (test code = Hgb) 15.2 14.0-18.0 [facility] HospitalAgedwldNAEXFTUCKB4493-54-26 05:32:00 Test Item Value Reference Range Interpretation Comments RBC (test code = RBC) 4.95 4.70-6.10 [facility] HospitalDhughclSKLSURXAHE9117-71-21 05:32:00 Test Item Value Reference Range Interpretation Comments WBC (test code = WBC) 15.2 3.7-10.4 [facility] HospitalIqclhmwHGURFFKJAZ2597-03-71 05:32:00 Test Item Value Reference Range Interpretation Comments MCHC (test code = MCHC) 33.1 32.0-36.0 [facility] HospitalGuafhpnKPSGSWWYVB2541-54-08 05:32:00 Test Item Value Reference Range Interpretation Comments Monocytes # (test code 1.0 See_Comment [Aut omated message] The = Monocytes #) system which generated this result tra nsmitted reference range : <=0.8. The reference r tony was not used to int erpret this result as normal/abnormal . [facility] HospitalRoupjqpBFXODFUZNC3309-39-62 05:32:00 Test Item Value Reference Range Interpretation Comments Basophils # (test code 0.1 See_Comment [Aut omated message] The = Basophils #) system which generated this result tra nsmitted reference range : <=0.2. The reference r tony was not used to int erpret this result as normal/abnormal . [facility] HospitalKaldzicGDLXKQFYUP9311-79-69 05:32:00 Test Item Value Reference Range Interpretation Comments Eosinophils (test code = 0.1 See_Comment [A utomated message] The Eosinophils) system which ge nerated this result tra nsmitted reference range : <=4.0. The reference r tony was not used to int erpret this result as normal/abnormal . [facility] HospitalQcigjlsIZSTMOSZAE6206-46-54 05:32:00 Test Item Value Reference Range Interpretation Comments Basophils (test code = 0.5 See_Comment [Aut omated message] The Basophils) system which ge nerated this result tra nsmitted reference range : <=1.0. The reference r tony was not used to int erpret this result as normal/abnormal . [facility] HospitalRszamwbMVOMVPKGKA9294-09-16 05:32:00 Test Item Value Reference Range Interpretation Comments Segs-Bands # (test code = Segs-Bands #) 12.6 1.5-8.1 [facility] HospitalSpimgokXNNGTYBVJT1196-30-93 05:32:00 Test Item Value Reference Range Interpretation Comments Lymphocytes (test code = Lymphocytes) 10.2 20.0-40.0 [facility] HospitalTyhcrvoZLUDAQMMUI2827-09-31 05:32:00 Test Item Value Reference Range Interpretation Comments Monocytes (test code = Monocytes) 6.6 2.0-12.0 [facility] HospitalAukefwsYQIYHKQHFO8840-48-63 05:32:00 Test Item Value Reference Range Interpretation Comments Lymphocytes # (test code = Lymphocytes 1.6 1.0-5.5 #) [facility] HospitalPjhxgzbGMPSCNZYOB2563-05-02 05:32:00 Test Item Value Reference Range Interpretation Comments Segs (test code = Segs) 82.6 45.0-75.0 [facility]2015-11-19 05:53:00 Test Item Value Reference Range Interpretation Comments Bili Direct (test code 0.1 See_Comment [Aut omated message] The = Bili Direct) system which generated this result tra nsmitted reference range : <=0.3. The reference r tony was not used to int erpret this result as grace l/abnormal. [facility]2015-11-19 05:53:00 Test Item Value Reference Range Interpretation Comments Bili Total (test code = Bili Total) 0.4 0.2-1.3 [facility]2015-11-19 05:53:00 Test Item Value Reference Range Interpretation Comments eGFR (test code = eGFR) 94 [facility]2015-11-19 05:53:00 Test Item Value Reference Range Interpretation Comments Potassium Lvl (test code = Potassium 4.4 3.5-5.1 Lvl) [facility]2015-11-19 05:53:00 Test Item Value Reference Range Interpretation Comments Sodium Lvl (test code = Sodium Lvl) 145 135-145 [facility]2015-11-19 05:53:00 Test Item Value Reference Range Interpretation Comments Chloride Lvl (test code = Chloride Lvl) 110 95-109 [facility]2015-11-19 05:53:00 Test Item Value Reference Range Interpretation Comments Glucose Lvl (test code = Glucose Lvl) 75 70-99 [facility]2015-11-19 05:53:00 Test Item Value Reference Range Interpretation Comments Creatinine Lvl (test code = Creatinine 1.08 0.50-1.40 Lvl) [facility]2015-11-19 05:53:00 Test Item Value Reference Range Interpretation Comments BUN (test code = BUN) 12 7-22 [facility]2015-11-19 05:53:00 Test Item Value Reference Range Interpretation Comments AGAP (test code = AGAP) 8.4 10.0-20.0 [facility]2015-11-19 05:53:00 Test Item Value Reference Range Interpretation Comments CO2 (test code = CO2) 31 24-32 [facility]2015-11-19 05:53:00 Test Item Value Reference Range Interpretation Comments Calcium Lvl (test code = Calcium Lvl) 8.9 8.5-10.5 [facility]2015-11-19 05:53:00 Test Item Value Reference Range Interpretation Comments AST (test code = AST) 15 See_Comment [Auto mated message] The system which ge nerated this result transmit ezequiel reference range : <=37. The reference range was not used to interpr et this result as grace l/abnormal. [facility]2015-11-19 05:53:00 Test Item Value Reference Range Interpretation Comments A/G Ratio (test code = A/G Ratio) 1.2 0.7-1.6 [facility]2015-11-19 05:53:00 Test Item Value Reference Range Interpretation Comments Alk Phos (test code = Alk Phos) 61 [phone] [facility]2015-11-19 05:53:00 Test Item Value Reference Range Interpretation Comments ALT (test code = ALT) 34 See_Comment [Auto mated message] The system which ge nerated this result transmit ezequiel reference range : <=65. The reference range was not used to interpr et this result as grace l/abnormal. [facility]2015-11-19 05:53:00 Test Item Value Reference Range Interpretation Comments Albumin Lvl (test code = Albumin Lvl) 3.9 3.5-5.0 [facility]2015-11-19 05:53:00 Test Item Value Reference Range Interpretation Comments Total Protein (test code = Total 7.1 6.4-8.4 Protein) [facility]2015-11-19 05:53:00 Test Item Value Reference Range Interpretation Comments B/C Ratio (test code = B/C Ratio) 11 6-25 [facility]2015-11-19 05:53:00 Test Item Value Reference Range Interpretation Comments Globulin (test code = Globulin) 3.2 2.0-4.0 [facility]FvvndcfWTCFIHBCWU5258-89-02 05:53:00 Test Item Value Reference Range Interpretation Comments Basophils # (test code 0.1 See_Comment [Aut omated message] The = Basophils #) system which generated this result tra nsmitted reference range : <=0.2. The reference r tony was not used to int erpret this result as normal/abnormal . [facility] HospitalYleypkuIWYZHAZKRM4312-33-66 05:53:00 Test Item Value Reference Range Interpretation Comments Eosinophils # (test code 0.8 See_Comment [A utomated message] The = Eosinophils #) system wh h generated this result tra nsmitted reference range : <=0.5. The reference r tony was not used to int erpret this result as normal/abnormal . [facility] HospitalNsadgpeGBDAQBUXYO3162-73-71 05:53:00 Test Item Value Reference Range Interpretation Comments Lymphocytes # (test code = Lymphocytes 3.3 1.0-5.5 #) [facility] HospitalAfiwninEOGCCJCWIU9834-06-72 05:53:00 Test Item Value Reference Range Interpretation Comments Segs-Bands # (test code = Segs-Bands #) 6.4 1.5-8.1 [facility] HospitalPhzgtjxCCHBHKMFMN6967-89-70 05:53:00 Test Item Value Reference Range Interpretation Comments Basophils (test code = 0.6 See_Comment [Aut omated message] The Basophils) system which ge nerated this result tra nsmitted reference range : <=1.0. The reference r tony was not used to int erpret this result as normal/abnormal . [facility] HospitalTcwllbuLJHKVAYYZT0642-94-07 05:53:00 Test Item Value Reference Range Interpretation Comments Eosinophils (test code = 7.4 See_Comment [A utomated message] The Eosinophils) system which ge nerated this result tra nsmitted reference range : <=4.0. The reference r tony was not used to int erpret this result as normal/abnormal . [facility] HospitalVklkhovQSYWKCOROU7467-18-37 05:53:00 Test Item Value Reference Range Interpretation Comments Monocytes # (test code 0.6 See_Comment [Aut omated message] The = Monocytes #) system which generated this result tra nsmitted reference range : <=0.8. The reference r tony was not used to int erpret this result as normal/abnormal . [facility] HospitalAoolscvJPTQIYHSBF6095-14-00 05:53:00 Test Item Value Reference Range Interpretation Comments Segs (test code = Segs) 57.4 45.0-75.0 [facility] HospitalBmtilqkKCIQSHXAOZ3553-80-89 05:53:00 Test Item Value Reference Range Interpretation Comments Lymphocytes (test code = Lymphocytes) 29.2 20.0-40.0 [facility] HospitalDipgifiRWOBRTYZPH1144-86-20 05:53:00 Test Item Value Reference Range Interpretation Comments Monocytes (test code = Monocytes) 5.4 2.0-12.0 [facility] HospitalKktazbrKCYTPQWBIZ6356-09-21 05:53:00 Test Item Value Reference Range Interpretation Comments MCV (test code = MCV) 93.6 80.0-94.0 [facility] HospitalCgyzvfcWLFLZEIVUF1414-93-82 05:53:00 Test Item Value Reference Range Interpretation Comments Hct (test code = Hct) 43.4 42.0-54.0 [facility] HospitalFcyefhfLJAZNLCPHB5178-23-67 05:53:00 Test Item Value Reference Range Interpretation Comments Hgb (test code = Hgb) 14.2 14.0-18.0 [facility] HospitalSgojvbmBKXCBIAFYG3682-45-91 05:53:00 Test Item Value Reference Range Interpretation Comments RBC (test code = RBC) 4.64 4.70-6.10 [facility] HospitalRxqmdmrBFRVNGLWVF9846-35-38 05:53:00 Test Item Value Reference Range Interpretation Comments MCHC (test code = MCHC) 32.8 32.0-36.0 [facility] HospitalDconctuNXZTJBZPXJ4666-09-30 05:53:00 Test Item Value Reference Range Interpretation Comments MCH (test code = MCH) 30.7 pg 27.0-31.0 [facility] HospitalPxlwwwbESGVCONKAU5501-87-33 05:53:00 Test Item Value Reference Range Interpretation Comments RDW (test code = RDW) 13.1 11.5-14.5 [facility] HospitalUgpxrsoBHXJMROPFS2809-21-90 05:53:00 Test Item Value Reference Range Interpretation Comments MPV (test code = MPV) 9.4 7.4-10.4 [facility] HospitalBithghtODTAIGIVYA5648-64-70 05:53:00 Test Item Value Reference Range Interpretation Comments Platelet (test code = Platelet) 220 133-450 [facility] HospitalRjugewwBPYVRPSQET6008-36-58 05:53:00 Test Item Value Reference Range Interpretation Comments WBC (test code = WBC) 11.1 3.7-10.4 [facility] HospitalSchteajVNNRGSBOWH5154-83-53 05:53:00 Test Item Value Reference Range Interpretation Comments PT (test code = PT) 13.5 s 12.0-14.7 [facility]FhvraxbDQNSWINFVU3233-62-91 05:53:00 Test Item Value Reference Range Interpretation Comments INR (test code = INR) 1.00 0.85-1.17 [facility] HospitalSpbudixRTJCATEYHT0370-91-38 05:53:00 Test Item Value Reference Range Interpretation Comments PTT (test code = PTT) 33.4 s 22.9-35.8 [facility] HospitalTdwshnxAHKQOVHXZD1661-65-12 05:53:00 Test Item Value Reference Range Interpretation Comments CDC HIV 4th GEN (test Negative (04/20/15 11:53 code = CDC HIV 4th PM) GEN) [facility]LaayvlwSWNEYABUAB9492-86-80 05:53:00 Test Item Value Reference Range Interpretation Comments Salicylate Lvl (test no gt See_Comment [Autom ated message] The code = Salicylate Lvl) syste m which generated this result tra nsmitted reference range : <=30.0. The reference r tony was not used to int erpret this result as normal/abnormal . [facility] HospitalYdxgbnsNNIIPLBKUO3410-84-50 05:53:00 Test Item Value Reference Range Interpretation Comments Acetaminoph Lvl (test code = no gt 03-22 Acetaminoph Lvl) [facility]enWfozektXGTTACIFCO4538-78-75 03:30:00 Test Item Value Reference Range Interpretation Comments Etoh (%) (test code = Etoh (%)) no gt [facility] PyikuagLZGWWBOWPK5321-86-20 03:30:00 Test Item Value Reference Range Interpretation Comments Ethanol Lvl (test code = Ethanol Lvl) no gt [facility] ZRUNAC2249-02-13 03:23:00 Test Item Value Reference Range Interpretation Comments UDS Note (test code = See Note 3(01/20/14 UDS Note) 10:23 PM) [facility] [id number] 03:23:00 Test Item Value Reference Range Interpretation Comments U Benzodia Scr (test Positive *ABN*(01/20/14 code = U Benzodia Scr) 10:23 PM) [facility] [id number] 03:23:00 Test Item Value Reference Range Interpretation Comments U Cocaine Scr (test Negative *NA*(01/20/14 code = U Cocaine Scr) 10:23 PM) [facility] [id number] 03:23:00 Test Item Value Reference Range Interpretation Comments U Cannab Scr (test Negative *NA*(01/20/14 code = U Cannab Scr) 10:23 PM) [facility] [id number] 03:23:00 Test Item Value Reference Range Interpretation Comments U Opiate Scr (test Positive *ABN*(01/20/14 code = U Opiate Scr) 10:23 PM) [facility] [id number] 03:23:00 Test Item Value Reference Range Interpretation Comments U Phencyc Scr (test Negative *NA*(01/20/14 code = U Phencyc Scr) 10:23 PM) [facility] [id number] 03:23:00 Test Item Value Reference Range Interpretation Comments U Amph Scr (test code Negative *NA*(01/20/14 = U Amph Scr) 10:23 PM) [facility] [id number] 03:23:00 Test Item Value Reference Range Interpretation Comments U Nita Scr (test code Negative *NA*(01/20/14 = U Nita Scr) 10:23 PM) [facility] [id number] 03:23:00 Test Item Value Reference Range Interpretation Comments UA Bili (test code = Small 6*ABN*(01/20/14 UA Bili) 10:23 PM) [facility] [id number] 03:23:00 Test Item Value Reference Range Interpretation Comments UA Protein (test code Negative (01/20/14 10:23 = UA Protein) PM) [facility] [id number] 03:23:00 Test Item Value Reference Range Interpretation Comments UA Blood (test code = Negative (01/20/14 10:23 UA Blood) PM) [facility] [id number] 03:23:00 Test Item Value Reference Range Interpretation Comments UA Urobilinogen (test code = UA 1.0 0.1-1.0 Urobilinogen) [facility] [id number] 03:23:00 Test Item Value Reference Range Interpretation Comments UA Nitrite (test code Negative (01/20/14 10:23 = UA Nitrite) PM) [facility] AND [id number] 03:23:00 Test Item Value Reference Range Interpretation Comments UA Glucose (test code Negative (01/20/14 10:23 = UA Glucose) PM) [facility] AND [id number] 03:23:00 Test Item Value Reference Range Interpretation Comments UA Ketones (test code = UA Ketones) 15 mg/dL [facility] AND [id number] 03:23:00 Test Item Value Reference Range Interpretation Comments UA Bacteria (test code = UA Occasional /HPF Bacteria) [facility] AND [id number] 03:23:00 Test Item Value Reference Range Interpretation Comments UA WBC (test code = UA WBC) 0-2 /HPF [facility] AND [id number] 03:23:00 Test Item Value Reference Range Interpretation Comments UA RBC (test None Seen See_Comment [Automated mes aditya] code = UA RBC) (01/20/14 10:23 The system which PM) generated this result transmitted ref erence range: <=2. The reference range was not used to int erpret this result as normal/abnormal . [facility] AND [id number] 03:23:00 Test Item Value Reference Range Interpretation Comments UA Sq Epi (test code = UA Sq Occasional /LPF Epi) [facility] AND [id number] 03:23:00 Test Item Value Reference Range Interpretation Comments Micro? (test code = Performed (01/20/14 10:23 Micro?) PM) [facility] AND [id number] 03:23:00 Test Item Value Reference Range Interpretation Comments UA Leuk Est (test Negative (01/20/14 10:23 code = UA Leuk Est) PM) [facility] AND [id number] 03:23:00 Test Item Value Reference Range Interpretation Comments UA pH (test code = UA pH) 6.0 1 5.0-8.0 [facility] AND [id number] 03:23:00 Test Item Value Reference Range Interpretation Comments UA Spec Grav (test >=1.030 *ABN*(01/20/14 code = UA Spec Grav) 10:23 PM) [facility] AND [id number] 03:23:00 Test Item Value Reference Range Interpretation Comments UA Color (test code = Yellow *NA*(01/20/14 UA Color) 10:23 PM) [facility] AND [id number] 03:23:00 Test Item Value Reference Range Interpretation Comments UA Turbidity (test code = Clear (01/20/14 10:23 UA Turbidity) PM) [facility]2014-08-21 02:25:00 Test Item Value Reference Range Interpretation Comments Lipase Lvl (test code = Lipase Lvl) 110 73-393 [facility]2014-08-21 02:25:00 Test Item Value Reference Range Interpretation Comments Amylase Lvl (test code = Amylase Lvl) 50 25-115 [facility]2014-08-21 02:25:00 Test Item Value Reference Range Interpretation Comments A/G Ratio (test code = A/G Ratio) 1.4 0.7-1.6 [facility]2014-08-21 02:25:00 Test Item Value Reference Range Interpretation Comments AGAP (test code = AGAP) 10.4 10.0-20.0 [facility]2014-08-21 02:25:00 Test Item Value Reference Range Interpretation Comments B/C Ratio (test code = B/C Ratio) 10 6-25 [facility]2014-08-21 02:25:00 Test Item Value Reference Range Interpretation Comments Globulin (test code = Globulin) 3.1 2.0-4.0 [facility]2014-08-21 02:25:00 Test Item Value Reference Range Interpretation Comments eGFR (test code = eGFR) 84 [facility]2014-08-21 02:25:00 Test Item Value Reference Range Interpretation Comments CO2 (test code = CO2) 26 24-32 [facility]2014-08-21 02:25:00 Test Item Value Reference Range Interpretation Comments Albumin Lvl (test code = Albumin Lvl) 4.3 3.5-5.0 [facility]2014-08-21 02:25:00 Test Item Value Reference Range Interpretation Comments ALT (test code = ALT) 28 See_Comment [Auto mated message] The system which ge nerated this result transmit ezequiel reference range : <=65. The reference range was not used to interpr et this result as grace l/abnormal. [facility]2014-08-21 02:25:00 Test Item Value Reference Range Interpretation Comments AST (test code = AST) 14 See_Comment [Auto mated message] The system which ge nerated this result transmit ezequiel reference range : <=37. The reference range was not used to interpr et this result as grace l/abnormal. [facility]2014-08-21 02:25:00 Test Item Value Reference Range Interpretation Comments Total Protein (test code = Total 7.4 6.4-8.4 Protein) [facility]2014-08-21 02:25:00 Test Item Value Reference Range Interpretation Comments Chloride Lvl (test code = Chloride Lvl) 107 95-109 [facility]2014-08-21 02:25:00 Test Item Value Reference Range Interpretation Comments Potassium Lvl (test code = Potassium 3.4 3.5-5.1 Lvl) [facility]2014-08-21 02:25:00 Test Item Value Reference Range Interpretation Comments Calcium Lvl (test code = Calcium Lvl) 9.2 8.5-10.5 [facility]2014-08-21 02:25:00 Test Item Value Reference Range Interpretation Comments Alk Phos (test code = Alk Phos) 64 39-136 [facility]2014-08-21 02:25:00 Test Item Value Reference Range Interpretation Comments Bili Total (test code = Bili Total) 0.8 0.2-1.3 [facility]2014-08-21 02:25:00 Test Item Value Reference Range Interpretation Comments Sodium Lvl (test code = Sodium Lvl) 140 135-145 [facility]2014-08-21 02:25:00 Test Item Value Reference Range Interpretation Comments Glucose Lvl (test code = Glucose Lvl) 111 70-99 [facility]2014-08-21 02:25:00 Test Item Value Reference Range Interpretation Comments Creatinine Lvl (test code = Creatinine 1.2 0.5-1.4 Lvl) [facility]2014-08-21 02:25:00 Test Item Value Reference Range Interpretation Comments BUN (test code = BUN) 12 7-22 [facility] HospitalAamxjbvUQKBTQYETZ1525-32-76 02:25:00 Test Item Value Reference Range Interpretation Comments MCV (test code = MCV) 93.4 80.0-94.0 [facility] HospitalNcanxgoCUYJCZOPAN6858-95-05 02:25:00 Test Item Value Reference Range Interpretation Comments MCHC (test code = MCHC) 34.3 32.0-36.0 [facility] HospitalTlklxmhPLUMYWECLD9186-71-46 02:25:00 Test Item Value Reference Range Interpretation Comments MCH (test code = MCH) 32.1 pg 27.0-31.0 [facility] HospitalHancckiBAKMNNKYUU2511-73-98 02:25:00 Test Item Value Reference Range Interpretation Comments RDW (test code = RDW) 13.4 11.5-14.5 [facility] HospitalCuafxzlDWTFFKFDSZ4589-65-44 02:25:00 Test Item Value Reference Range Interpretation Comments Platelet (test code = Platelet) 184 133-450 [facility] HospitalQykzvcySMNHZOMKUI6669-87-52 02:25:00 Test Item Value Reference Range Interpretation Comments MPV (test code = MPV) 9.7 7.4-10.4 [facility] HospitalQqzjpcaHQAQQAPKCX7221-45-71 02:25:00 Test Item Value Reference Range Interpretation Comments RBC (test code = RBC) 4.82 4.70-6.10 [facility] HospitalCpboafdHRRKJIAFEB0988-20-36 02:25:00 Test Item Value Reference Range Interpretation Comments Hgb (test code = Hgb) 15.5 14.0-18.0 [facility] HospitalJoqmlbsSFXDIWHNYK2166-15-65 02:25:00 Test Item Value Reference Range Interpretation Comments WBC (test code = WBC) 9.8 3.7-10.4 [facility] HospitalQwjfhrtUXOOFLSRQE9582-80-39 02:25:00 Test Item Value Reference Range Interpretation Comments Hct (test code = Hct) 45.1 42.0-54.0 [facility] HospitalWkfiaolJNJJWISIZK2518-73-08 02:25:00 Test Item Value Reference Range Interpretation Comments PTT (test code = PTT) 33.2 s 22.9-35.8 [facility] HospitalDdtqpnqFMSFTNIKAL8798-11-01 02:25:00 Test Item Value Reference Range Interpretation Comments PT (test code = PT) 12.9 s 12.0-14.7 [facility] HospitalWazfudjFLHBKPWDVP3527-85-93 02:25:00 Test Item Value Reference Range Interpretation Comments INR (test code = INR) 0.98 0.85-1.17 [facility] HospitalXsxvnolHGHCRXRLOX6724-50-43 02:25:00 Test Item Value Reference Range Interpretation Comments Monocytes # (test code 0.9 See_Comment [Aut omated message] The = Monocytes #) system which generated this result tra nsmitted reference range : <=0.8. The reference r tony was not used to int erpret this result as normal/abnormal . [facility] HospitalWeouasvNDVERLHAGL4720-64-13 02:25:00 Test Item Value Reference Range Interpretation Comments Lymphocytes # (test code = Lymphocytes 4.1 1.0-5.5 #) [facility] HospitalSawmvgyCFEYNXZWQG3766-91-28 02:25:00 Test Item Value Reference Range Interpretation Comments Segs-Bands # (test code = Segs-Bands #) 4.5 1.5-8.1 [facility] HospitalYskpayzNHIOWVWCVP8264-95-82 02:25:00 Test Item Value Reference Range Interpretation Comments Basophils # (test code 0.1 See_Comment [Aut omated message] The = Basophils #) system which generated this result tra nsmitted reference range : <=0.2. The reference r tony was not used to int erpret this result as normal/abnormal . [facility] HospitalGsqgkiyLMRFZFLHCJ7885-52-02 02:25:00 Test Item Value Reference Range Interpretation Comments Eosinophils # (test code 0.2 See_Comment [A utomated message] The = Eosinophils #) system whic h generated this result tra nsmitted reference range : <=0.5. The reference r tony was not used to int erpret this result as normal/abnormal . [facility] HospitalOmqshcoIEOUDTGYHG2676-59-09 02:25:00 Test Item Value Reference Range Interpretation Comments Segs (test code = Segs) 46.2 45.0-75.0 [facility] HospitalKgykxccGJFUYVBDFF4559-77-08 02:25:00 Test Item Value Reference Range Interpretation Comments Eosinophils (test code = 1.6 See_Comment [A utomated message] The Eosinophils) system which ge nerated this result tra nsmitted reference range : <=4.0. The reference r tony was not used to int erpret this result as normal/abnormal . [facility] HospitalDbdjonlAOQMZAEYUT2407-80-56 02:25:00 Test Item Value Reference Range Interpretation Comments Lymphocytes (test code = Lymphocytes) 42.3 20.0-40.0 [facility]enNcurnzoJMMVFULASI6036-55-62 02:25:00 Test Item Value Reference Range Interpretation Comments Basophils (test code = 0.7 See_Comment [Aut omated message] The Basophils) system which ge nerated this result tra nsmitted reference range : <=1.0. The reference r tony was not used to int erpret this result as normal/abnormal . [facility]enVefuecjLSUJJUSSLV8885-81-96 02:25:00 Test Item Value Reference Range Interpretation Comments Monocytes (test code = Monocytes) 9.2 2.0-12.0 [facility]enNyizvrcCBXHXZQYIE9306-43-88 02:25:00 Test Item Value Reference Range Interpretation Comments CDC HIV 4th GEN (test Negative (01/20/14 9:25 code = CDC HIV 4th PM) GEN) [facility] AND [id number] 23:45:00 Test Item Value Reference Range Interpretation Comments UA Nitrite (test code Negative (12/16/13 6:45 = UA Nitrite) PM) [facility] AND [id number] 23:45:00 Test Item Value Reference Range Interpretation Comments UA Urobilinogen (test code = UA 0.2 0.1-1.0 Urobilinogen) [facility] AND [id number] 23:45:00 Test Item Value Reference Range Interpretation Comments UA Leuk Est (test Negative (12/16/13 6:45 code = UA Leuk Est) PM) [facility] AND [id number] 23:45:00 Test Item Value Reference Range Interpretation Comments UA Spec Grav (test code = UA Spec 1.025 1 Grav) [facility] AND [id number] 23:45:00 Test Item Value Reference Range Interpretation Comments UA Turbidity (test code = Clear (12/16/13 6:45 UA Turbidity) PM) [facility] AND [id number] 23:45:00 Test Item Value Reference Range Interpretation Comments UA Color (test code = Yellow *NA*(12/16/13 UA Color) 6:45 PM) [facility] AND [id number] 23:45:00 Test Item Value Reference Range Interpretation Comments UA Bili (test code = Negative *NA*(12/16/13 UA Bili) 6:45 PM) [facility] [id number] 23:45:00 Test Item Value Reference Range Interpretation Comments UA Blood (test code = Negative (12/16/13 6:45 UA Blood) PM) [facility] [id number] 23:45:00 Test Item Value Reference Range Interpretation Comments UA Glucose (test code = UA Negative mg/dL Glucose) [facility] [id number] 23:45:00 Test Item Value Reference Range Interpretation Comments UA Ketones (test code = UA Negative mg/dL Ketones) [facility] [id number] 23:45:00 Test Item Value Reference Range Interpretation Comments UA pH (test code = UA pH) 6.0 1 5.0-8.0 [facility] [id number] 23:45:00 Test Item Value Reference Range Interpretation Comments UA Protein (test code = UA Negative mg/dL Protein) [facility] [id number] 23:45:00 Test Item Value Reference Range Interpretation Comments UA Bacteria (test code = UA Occasional /HPF Bacteria) [facility] [id number] 23:45:00 Test Item Value Reference Range Interpretation Comments UA Mucus (test code = UA Mucus) Few /LPF [facility] [id number] 23:45:00 Test Item Value Reference Range Interpretation Comments Micro? (test code = Performed (12/16/13 6:45 Micro?) PM) [facility] [id number] 23:45:00 Test Item Value Reference Range Interpretation Comments UA RBC (test code = 0-2 /HPF See_Comment [Automa ezequiel message] The UA RBC) system which ge nerated this result tra nsmitted reference range : <=2. The reference range was not used to interpr et this result as grace l/abnormal. [facility] [id number] 23:45:00 Test Item Value Reference Range Interpretation Comments UA Sq Epi (test code = UA Sq Occasional /LPF Epi) [facility] [id number] 23:45:00 Test Item Value Reference Range Interpretation Comments UA WBC (test code = UA WBC) 0-2 /HPF [facility] [id number] 22:20:00 Test Item Value Reference Range Interpretation Comments Lipase Lvl (test code = Lipase Lvl) 151 73-393 [facility]2014-07-16 22:20:00 Test Item Value Reference Range Interpretation Comments eGFR (test code = eGFR) 93 [facility]2014-07-16 22:20:00 Test Item Value Reference Range Interpretation Comments AST (test code = AST) 23 See_Comment [Auto mated message] The system which ge nerated this result transmit ezequiel reference range : <=37. The reference range was not used to interpr et this result as grace l/abnormal. [facility]2014-07-16 22:20:00 Test Item Value Reference Range Interpretation Comments Alk Phos (test code = Alk Phos) 67 39-136 [facility] [facility]00 Test Item Value Reference Range Interpretation Comments Bili Total (test code = Bili Total) 0.7 0.2-1.3 [facility]2014-07-16 22:20:00 Test Item Value Reference Range Interpretation Comments Albumin Lvl (test code = Albumin Lvl) 5.0 3.5-5.0 [facility]2014-07-16 22:20:00 Test Item Value Reference Range Interpretation Comments ALT (test code = ALT) 43 See_Comment [Auto mated message] The system which ge nerated this result transmit ezequiel reference range : <=65. The reference range was not used to interpr et this result as grace l/abnormal. [facility]2014-07-16 22:20:00 Test Item Value Reference Range Interpretation Comments BUN (test code = BUN) 22 7-22 [facility]2014-07-16 22:20:00 Test Item Value Reference Range Interpretation Comments Glucose Lvl (test code = Glucose Lvl) 90 70-99 [facility]2014-07-16 22:20:00 Test Item Value Reference Range Interpretation Comments Creatinine Lvl (test code = Creatinine 1.1 0.5-1.4 Lvl) [facility]2014-07-16 22:20:00 Test Item Value Reference Range Interpretation Comments Sodium Lvl (test code = Sodium Lvl) 140 135-145 [facility]2014-07-16 22:20:00 Test Item Value Reference Range Interpretation Comments Potassium Lvl (test code = Potassium 4.0 3.5-5.1 Lvl) [facility]2014-07-16 22:20:00 Test Item Value Reference Range Interpretation Comments Calcium Lvl (test code = Calcium Lvl) 9.5 8.5-10.5 [facility]2014-07-16 22:20:00 Test Item Value Reference Range Interpretation Comments Total Protein (test code = Total 8.3 6.4-8.4 Protein) [facility]2014-07-16 22:20:00 Test Item Value Reference Range Interpretation Comments Chloride Lvl (test code = Chloride Lvl) 104 95-109 [facility]2014-07-16 22:20:00 Test Item Value Reference Range Interpretation Comments CO2 (test code = CO2) 27 24-32 [facility]2014-07-16 22:20:00 Test Item Value Reference Range Interpretation Comments AGAP (test code = AGAP) 13.0 10.0-20.0 [facility]2014-07-16 22:20:00 Test Item Value Reference Range Interpretation Comments B/C Ratio (test code = B/C Ratio) 20 6-25 [facility]2014-07-16 22:20:00 Test Item Value Reference Range Interpretation Comments Globulin (test code = Globulin) 3.3 2.0-4.0 [facility]2014-07-16 22:20:00 Test Item Value Reference Range Interpretation Comments A/G Ratio (test code = A/G Ratio) 1.5 0.7-1.6 [id number]:20:00 Test Item Value Reference Range Interpretation Comments Basophils # (test code 0.1 See_Comment [Aut omated message] The = Basophils #) system which generated this result tra nsmitted reference range : <=0.2. The reference r tony was not used to int erpret this result as normal/abnormal . [id number] 22:20:00 Test Item Value Reference Range Interpretation Comments Monocytes # (test code 0.9 See_Comment [Aut omated message] The = Monocytes #) system which generated this result tra nsmitted reference range : <=0.8. The reference r tony was not used to int erpret this result as normal/abnormal . [id number] 22:20:00 Test Item Value Reference Range Interpretation Comments Eosinophils # (test code 0.3 See_Comment [A utomated message] The = Eosinophils #) system whic h generated this result tra nsmitted reference range : <=0.5. The reference r tony was not used to int erpret this result as normal/abnormal . [facility] HospitalJugexebPRCNYKKFVS7084-26-90 22:20:00 Test Item Value Reference Range Interpretation Comments Segs-Bands # (test code = Segs-Bands #) 6.5 1.5-8.1 [facility] HospitalVvgfexcZDRNUIZKMB9613-27-19 22:20:00 Test Item Value Reference Range Interpretation Comments Lymphocytes # (test code = Lymphocytes 3.3 1.0-5.5 #) [facility] HospitalZrbxkgzPNOKNHEGRH5805-58-08 22:20:00 Test Item Value Reference Range Interpretation Comments Basophils (test code = 0.8 See_Comment [Aut omated message] The Basophils) system which ge nerated this result tra nsmitted reference range : <=1.0. The reference r tony was not used to int erpret this result as normal/abnormal . [facility] HospitalNuddtdjHGVCSORTSM3991-78-15 22:20:00 Test Item Value Reference Range Interpretation Comments Eosinophils (test code = 2.3 See_Comment [A utomated message] The Eosinophils) system which ge nerated this result tra nsmitted reference range : <=4.0. The reference r tony was not used to int erpret this result as normal/abnormal . [facility] HospitalWxzgrvuQNTAFHHADD0326-05-74 22:20:00 Test Item Value Reference Range Interpretation Comments Lymphocytes (test code = Lymphocytes) 29.9 20.0-40.0 [facility] HospitalCqtpbuyZJFVPGREAX1483-72-64 22:20:00 Test Item Value Reference Range Interpretation Comments Monocytes (test code = Monocytes) 7.9 2.0-12.0 [facility] HospitalQaqfesrQLIPANPTDO9060-95-94 22:20:00 Test Item Value Reference Range Interpretation Comments Segs (test code = Segs) 59.1 45.0-75.0 [facility] HospitalMuiywwtWDDBAGXVKT7468-70-60 22:20:00 Test Item Value Reference Range Interpretation Comments MPV (test code = MPV) 9.4 7.4-10.4 [facility] HospitalWrxntfaCGMLEUBFZG1303-37-60 22:20:00 Test Item Value Reference Range Interpretation Comments RDW (test code = RDW) 13.8 11.5-14.5 [facility] HospitalZpnbjkjWNTMBYQCMU8623-97-15 22:20:00 Test Item Value Reference Range Interpretation Comments Platelet (test code = Platelet) 234 133-450 [facility] HospitalSuslvjfLZMXFABEST5365-83-74 22:20:00 Test Item Value Reference Range Interpretation Comments MCHC (test code = MCHC) 34.3 32.0-36.0 [facility] HospitalZ[id number] 22:20:00 Test Item Value Reference Range Interpretation Comments MCH (test code = MCH) 32.6 pg 27.0-31.0 [facility] HospitalFlvbouiUIDEFFUVFW7914-35-63 22:20:00 Test Item Value Reference Range Interpretation Comments Hgb (test code = Hgb) 16.3 14.0-18.0 [facility] HospitalEexjpssDWENEERXKB6971-07-23 22:20:00 Test Item Value Reference Range Interpretation Comments MCV (test code = MCV) 95.0 80.0-94.0 [facility] HospitalJhbojiwDTNCKWSCDT8038-73-90 22:20:00 Test Item Value Reference Range Interpretation Comments Hct (test code = Hct) 47.5 42.0-54.0 [facility] HospitalCiccmqcOKBEBOQSGC3460-51-09 22:20:00 Test Item Value Reference Range Interpretation Comments RBC (test code = RBC) 5.00 4.70-6.10 [facility] HospitalQbziuzlSWFTUCZAQV5635-06-80 22:20:00 Test Item Value Reference Range Interpretation Comments WBC (test code = WBC) 11.0 3.7-10.4 [facility]
[2022-06-27] MEDS ORDERED: NA CHLORIDE 0.9% 1,000 ML ONE (22:43)
[2022-06-27] MEDS ORDERED: METOCLOPRAMIDE 10 MG/2mL INJ ONE (22:43)
[2022-06-27 22:46] LABS: MPV 9.7 fL (7.6-11.3); RBC Red Blood Cell Count 5.18 M/uL (4.33-5.43)
[2022-06-27 22:50] LABS: Absolute Lymphocytes (CBC) 4.1 K/uL (0.7-4.9); Hematocrit 47.9 % (39.6-49.0); Lymphocytes % 32.3 % (15.3-44.8); MCV 92.4 fL (80-100)
[2022-06-27] MEDS ORDERED: DIPHENHYDRAMINE 50 MG/ML VIAL ONE (22:58)
[2022-06-27 22:59] LABS: Albumin 4.7 g/dL (3.4-5.0); Bilirubin Total 0.4 mg/dL (0.2-1.0); Potassium 3.6 mmol/L (3.5-5.1); Protein, Total 8.5 g/dL (6.4-8.2)
[2022-06-27] MEDS ORDERED: FAMOTIDINE 20 MG/2 ML VIAL IV ONE (23:02)
--- NOTE | 2022-06-28 01:29 | EDPHYS ---
Physician Documentation [facility] Name: Chico Leon Age: 31 yrs Sex: Male : 1990 Arrival Date: 06/27/2022 Time: 21:52 Bed Treatment Private MD: ED Physician Jacobo Ramos HPI: 06/27 23:04 This 31 yrs old Male presents to ER via Ambulatory with complaints of bs3 Abdominal Pain, Constipation. 23:04 This is a 31-year-old male history of pancreatitis in the past seizure disorder, bs3 anxiety, depression reports weight loss over the past year with decreased appetite he notes that he saw his primary care doctor who told him that he is spilling protein in his urine but he never followed up for that he was seen several months ago and told that he should get IV fluids and therefore he felt like he should come in today. He notes that he gets discomfort when he eats which is chronic in nature he was told that his gallbladder is normal he denies any chest pain shortness of breath fevers chills urinary symptoms or anything else bothering him he notes that he tries to drink water but feels dehydrated has not been eating much and therefore feels constipated. Historical: - Allergies: 23:54 Reglan (tardive dyskinesia); lg3 - PMHx: 22:03 Anxiety; Depression; Pancreatitis; Schizophrenia; Borderline; Seizures; PTSD; Bipolar kd3 disorder; - PSHx: 22:03 Appendectomy; kd3 - Immunization history:: Adult Immunizations up to date. - Social history:: Smoking status: Patient reports the use of cigarette tobacco products, smokes two packs cigarettes per day. ROS: 23:04 Constitutional: Negative for fever, chills Eyes: Negative for injury, pain, redness, bs3 and discharge, Neck: Negative for injury, pain, and swelling, Cardiovascular: Negative for chest pain, palpitations, and edema, Respiratory: Negative for shortness of breath, cough, wheezing MS/Extremity: Negative for injury and deformity, Skin: Negative for injury, rash, and discoloration, Neuro: Negative for headache, weakness, numbness, tingling, and seizure. Exam: 23:04 Constitutional: This is a well developed, well nourished patient who is awake, alert, bs3 and in no acute distress. Head/Face: Normocephalic, atraumatic. ENT: mmm, no posterior phyarngeal erythema Neck: Trachea midline, no thyromegaly, no neck stiffness Chest/axilla: Normal chest wall appearance and motion. Nontender with no deformity. No lesions are appreciated. Cardiovascular: Regular rate and rhythm with a normal S1 and S2. symmetric pulses in upper extremities Respiratory: Lungs have equal breath sounds bilaterally, clear to auscultation, no respiratory distress Abdomen/GI: Points to epigastric region for location of discomfort but abdomen is soft and nontender MS/ Extremity: Pulses equal, no cyanosis. Neurovascular intact. Full, normal range of motion. Neuro: Awake and alert, GCS 15, oriented to person, place, time, and situation. Cranial nerves II-XII grossly intact. Motor strength 5/5 in all extremities. Sensory grossly intact. Vital Signs: 22:00 BP 140 / 98; Pulse 72; Resp 18; Temp 98.1(TE); Pulse Ox 98% on R/A; kd3 06/28 01:32 BP 134 / 86; Pulse 84; Resp 17; Pulse Ox 99% on R/A; lg3 MDM: 06/27 21:53 Patient medically screened. [facility] [place] 23:04 Differential diagnosis: appendicitis, bowel obstruction, Cholelithiasis, gastritis, bs3 gastroesophageal reflux disease, pancreatitis, Perf. Gastric Ulcer, Peritonitis. 23:04 I considered the following discharge prescriptions or medication management in the [facility] [place] emergency department Medications were administered in the Emergency Department. See MAR. ED course: For pancreatitis I considered CT but his abdomen is soft and nontender his symptoms are chronic in nature given his chronicity and weight loss there is concern for cancer patient advised to follow-up with primary care and gastroenterology he needs an upper GI evaluation he has no right upper quadrant tenderness to indicate cholecystitis. Labs reviewed notable for normal lipase slightly elevated WBC normal LFTs as interpreted by myself. 23:09 ED course: Reglan instead of Zofran as he did not like Zofran in the past after this he bs3 developed discomfort in his legs tingling sensation and blurry vision he became very anxious his symptoms were consistent with a dystonic reaction he was given Benadryl and reassessed. 06/28 01:26 Data reviewed: vital signs, nurses notes, lab test result(s), amylase and lipase, bs3 electrolytes. Test considered but Not performed: CT: CT abdomen and pelvis. Care significantly affected by the following Social Determinants of Health: Poor access to healthcare and/or lack of insurance. Response to treatment: the patient's symptoms have markedly improved after treatment. ED course: labs notable for slightly elevated LFTs as reviewed by myself otherwise no acute pathologies patient reassessed sleeping comfortably easily awoken abdomen soft nontender patient stable for discharge advised GI follow-up and primary care follow-up as soon as possible. 06/27 22: Order name: CBC with Diff; Complete Time: 23:04 bs3 06/27 22: Order name: CMP; Complete Time: 23: bs3 06/27 22: Order name: Lipase; Complete Time: 23: bs3 06/27 22: Order name: IV Saline Lock; Complete Time: : bs3 06/27 22: Order name: Labs collected and sent; Complete Time: : bs3 Administered Medications: 06/27 22:47 Drug: NS 0.9% 1000 ml Route: IV; Rate: 1 bolus; Site: left antecubital; lg3 22:47 Drug: Reglan (metoCLOPramide) 10 mg Route: IVP; Site: left antecubital; lg3 23:10 Follow up: Response: Adverse reaction, Physician notified lg3 23:10 Drug: Benadryl (diphenhydrAMINE) 50 mg Route: IVP; Site: left antecubital; lg3 23:53 Follow up: Response: No adverse reaction; Marked relief of symptoms lg3 23:10 Drug: Pepcid (famotidine) 20 mg Route: IVP; Site: left antecubital; lg3 23:53 Follow up: Response: (VIS) Vaccine information sheet provided today. Questions and/or lg3 concerns addressed. VIS edition date: Jan 06, 2021.; Marked relief of symptoms Disposition Summary: 06/28/22 01:29 Discharge Ordered Location: Home bs3 Problem: an acute exacerbation bs3 Symptoms: are resolved bs3 Condition: Stable bs3 Diagnosis - Dehydration bs3 - Epigastric pain bs3 Followup: bs3 - With: Private Physician - When: 48 Hours - Reason: Re-evaluation by your physician Followup: bs3 - With: Karl Lara MD - When: 5 - 6 days - Reason: Discharge Instructions: - Discharge Summary Sheet bs3 - Abdominal Pain, Adult bs3 Forms: - Medication Reconciliation Form bs3 - Work release form bs3 - Thank You Letter bs3 - Antibiotic Education bs3 - Prescription Opioid Use bs3 Prescriptions: - Carafate 1 gram Oral Tablet - take 1 tablet by ORAL route 4 times per day take on an empty stomach, beginning bs3 on waking and last dose at bedtime; 100 tablet; Refills: 0, Product Selection Permitted - Pepcid 20 mg Oral Tablet - take 1 tablet by ORAL route once daily for 10 days; 10 tablet; Refills: 0, bs3 Product Selection Permitted Signatures: Dispatcher [employer] Jane Ortiz RN RN lg3 Nena Griffiths RN RN kd3 Jacobo Ramos MD MD bs3
--- NOTE | 2022-06-28 01:29 | ER ---
Nurse's Notes [facility] Name: Chico Leon Age: 31 yrs Sex: Male : 1990 Arrival Date: 06/27/2022 Time: 21:52 Bed Treatment Private MD: Diagnosis: Dehydration;Epigastric pain Presentation: 06/27 22:00 Chief complaint: Patient states: I have been dehydrated and I haven't been able to keep kd3 things down and I am losing a lot of weight. I am not sure if it is my pancreas. Coronavirus screen: Vaccine status: Patient reports being unvaccinated. Ebola Screen: No symptoms or risks identified at this time. Initial Sepsis Screen: Does the patient meet any 2 criteria? No. Patient's initial sepsis screen is negative. Does the patient have a suspected source of infection? No. Patient's initial sepsis screen is negative. Risk Assessment: Do you want to hurt yourself or someone else? Patient reports no desire to harm self or others. Onset of symptoms was June 27, 2022. 22:00 Method Of Arrival: Ambulatory kd3 22:00 Acuity: RADHA 3 kd3 Triage Assessment: 22:03 General: Appears in no apparent distress. Behavior is calm, cooperative. Pain: kd3 Complains of pain in abdomen. GI: Reports constipation, nausea, vomiting. Historical: - Allergies: 23:54 Reglan (tardive dyskinesia); lg3 - PMHx: 22:03 Anxiety; Depression; Pancreatitis; Schizophrenia; Borderline; Seizures; PTSD; Bipolar kd3 disorder; - PSHx: 22:03 Appendectomy; kd3 - Immunization history:: Adult Immunizations up to date. - Social history:: Smoking status: Patient reports the use of cigarette tobacco products, smokes two packs cigarettes per day. Screenin:48 [facility] ED Fall Risk Assessment (Adult) History of falling in the last 3 months, lg3 including since admission No falls in past 3 months (0 pts). Abuse screen: Denies threats or abuse. Denies injuries from another. Nutritional screening: No deficits noted. Tuberculosis screening: No symptoms or risk factors identified. Assessment: 22:48 General: Appears in no apparent distress. comfortable, Behavior is calm, cooperative. lg3 Pain: Complains of pain in abdomen. Neuro: No deficits noted. Neville Agitation-Sedation Scale (RASS): 0 - Alert and Calm Level of Consciousness is awake, alert, obeys commands, Oriented to person, place, time, situation. Cardiovascular: No deficits noted. Denies chest pain, shortness of breath, Capillary refill < 3 seconds Clubbing of nail beds is absent JVD is absent Patient's skin is warm and dry. Respiratory: No deficits noted. Airway is patent Trachea midline Respiratory effort is even, unlabored, Respiratory pattern is regular, symmetrical. GI: Abdomen is round non-distended, Bowel sounds present X 4 quads. Abd is soft X 4 quads Abdomen is tender to palpation in right upper quadrant and left upper quadrant Reports lower abdominal pain, upper abdominal pain, constipation, intolerance of fluids, intolerance of food. : No deficits noted. No signs and/or symptoms were reported regarding the genitourinary system. EENT: No deficits noted. No signs and/or symptoms were reported regarding the EENT system. Derm: No deficits noted. No signs and/or symptoms reported regarding the dermatologic system. Skin is intact, is healthy with good turgor, Skin is dry, Skin is normal. Musculoskeletal: No deficits noted. No signs and/or symptoms reported regarding the musculoskeletal system. Circulation, motion, and sensation intact. Range of motion: intact in all extremities. 23:10 General: pt had adverse response to [place]. pt exhibited signs and symptoms of tardive lg3 dyskinesia. notified physician. . 23:36 General: Appears in no apparent distress. comfortable, Behavior is calm, cooperative. lg3 Pain: Denies pain. Neuro: No deficits noted. Neville Agitation-Sedation Scale (RASS): 0 - Alert and Calm Level of Consciousness is awake, alert, obeys commands, Oriented to person, place, time, situation. Cardiovascular: No deficits noted. Denies chest pain, shortness of breath, Capillary refill < 3 seconds JVD is absent Patient's skin is warm and dry. Respiratory: No deficits noted. Airway is patent Trachea midline Respiratory effort is even, unlabored, Respiratory pattern is regular, symmetrical. Musculoskeletal: No deficits noted. No signs and/or symptoms reported regarding the musculoskeletal system. Circulation, motion, and sensation intact. Range of motion: intact in all extremities. 06/28 00:25 Reassessment: Patient appears in no apparent distress at this time. Patient and/or lg3 family updated on plan of care and expected duration. Pain level reassessed. Patient is alert, oriented x 3, equal unlabored respirations, skin warm/dry/pink. Patient states feeling better. Patient states symptoms have improved. 01:31 Reassessment: Patient appears in no apparent distress at this time. No changes from lg3 previously documented assessment. Patient and/or family updated on plan of care and expected duration. Pain level reassessed. Patient is alert, oriented x 3, equal unlabored respirations, skin warm/dry/pink. Patient states feeling better. Patient states symptoms have improved. Vital Signs: 06/27 22:00 BP 140 / 98; Pulse 72; Resp 18; Temp 98.1(TE); Pulse Ox 98% on R/A; kd3 06/28 01:32 BP 134 / 86; Pulse 84; Resp 17; Pulse Ox 99% on R/A; lg3 ED Course: 06/27 21:52 Patient arrived in ED. ja2 21:53 Jacobo Ramos MD is Attending Physician. bs3 22:03 Triage completed. kd3 22:03 Arm band placed on right wrist. kd3 22:29 Inserted saline lock: 20 gauge in left antecubital area, using aseptic technique. Blood ds4 collected. 22:48 Patient has correct armband on for positive identification. Placed in gown. Bed in low lg3 position. Call light in reach. Side rails up X 1. Client placed on continuous cardiac and pulse oximetry monitoring. NIBP monitoring applied. potline monitor on. Family accompanied patient. 22:48 No provider procedures requiring assistance completed. lg3 06/28 01:28 Karl Lara MD is Referral Physician. bs3 01:44 IV discontinued, intact, bleeding controlled, No redness/swelling at site. Pressure lg3 dressing applied. Administered Medications: 06/27 22:47 Drug: NS 0.9% 1000 ml Route: IV; Rate: 1 bolus; Site: left antecubital; lg3 22:47 Drug: Reglan (metoCLOPramide) 10 mg Route: IVP; Site: left antecubital; lg3 23:10 Follow up: Response: Adverse reaction, Physician notified lg3 23:10 Drug: Benadryl (diphenhydrAMINE) 50 mg Route: IVP; Site: left antecubital; lg3 23:53 Follow up: Response: No adverse reaction; Marked relief of symptoms lg3 23:10 Drug: Pepcid (famotidine) 20 mg Route: IVP; Site: left antecubital; lg3 23:53 Follow up: Response: (VIS) Vaccine information sheet provided today. Questions and/or lg3 concerns addressed. VIS edition date: Jan 06, 2021.; Marked relief of symptoms Medication: 22:48 VIS not applicable for this client. lg3 Outcome: 06/28 01:29 Discharge ordered by . bs3 01:43 Discharged to home ambulatory. lg3 01:43 Condition: stable 01:43 Discharge instructions given to patient, Instructed on discharge instructions, follow up and referral plans. medication usage, Demonstrated understanding of instructions, follow-up care, medications, Prescriptions given X 2. 01:44 Patient left the ED. lg3 Signatures: Carter Andrew ds4 Jane Levine, RN RN lg3 Edna Sauer Kyli, RN RN kd3 Jacobo Ramos MD MD bs3
[2022-06-28 02:44] VITALS: TEMP 98.1
[2022-06-28 02:45] VITALS: BP 134/86; O2SAT 99
== END 2022-06-28 01:44 | disposition home or self-care (01) ==
LOC: ER 21:47
DX: E86.0 Dehydration (principal); R10.13 Epigastric pain; F17.210 Nicotine dependence, cigarettes, uncomplicated; Z88.8 Allergy status to other drugs, medicaments and biological substances
CPT/HCPCS: 85025; 36415; 83690; 80053; 96375; 96374; 99284; J2765; J1200; J7030

== ENCOUNTER 2022-07-28 00:34 | Emergency (ER) | payer BC ==
--- OUTSIDE RECORDS SUMMARY | 2022-07-28 00:52 | XMS REPORT | Continuity of Care Document ---
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 Notes: Memoria Flush 0.9% 2-25 Same as: l 10:19: BD [place] Posiflush Sterile Sodium No 1,000 mL, Memori a Chloride 2-25 1,000 l 0.154 10:19: ml/hr, [place] MEQ/ML 00 Infuse Injectable Over: 1 Solution hr, Route: IV, ONCE, Priority: STAT, Dosing Weight 68.182 kg, Start date: 07/28/15 4:19:00, Duration: 1 doses or times, Stop date: 07/28/15 4:19:00 Saline No Notes: [facility] Flush 0.9% 2-25 Same as: l 10:19: BD [place] 00 Posiflush Sterile Sodium No 1,000 mL, Memori a Chloride 2-25 1,000 l 0.154 10:19: ml/hr, [place] MEQ/ML 00 Infuse Injectable Over: 1 Solution hr, Route: IV, ONCE, Priority: STAT, Dosing Weight 68.182 kg, Start date: 07/28/15 4:19:00, Duration: 1 doses or times, Stop date: 07/28/15 4:19:00 Ativan 2015-0 No 1 mg, Memoria 2-25 Route: l 10:18: IVP, Drug [place] 00 form: INJ, ONCE, Dosing Weight 68.182, kg, Priority: STAT, Start date: 07/28/15 4:18:00, Stop date: 07/28/15 4:18:00 Ativan 2015-0 No 1 mg, [facility]oria 2-25 Route: l 10:18: IVP, Drug [place] 00 form: INJ, ONCE, Dosing Weight 68.182, kg, Priority: STAT, Start date: 07/28/15 4:18:00, Stop date: 07/28/15 4:18:00 Acetaminoph Yes 1,000 mg = Memoria en 500 MG -06 2 tab, PO, l Oral Tablet 09:06: Q4H, PRN He rmann [Tylenol] 00 Fever, X 10 day, # 24 tab, 0 Refill(s) Acetaminoph Yes 1,000 mg = Memoria en 500 MG -06 2 tab, PO, l Oral Tablet 09:06: Q4H, PRN He rmann [Tylenol] 00 Fever, X 10 day, # 24 tab, 0 Refill(s) Ondansetron Yes 4 mg = 1 Me moria 4 MG 1-06 tab, PO, l Disintegrat 09:05: BID, PRN He rmann ing Tablet 00 Nausea and [Zofran] Vomiting, Dissolve tab under tongue, X 5 day, # 10 tab, 0 Refill(s) Ciprofloxac Yes 500 mg = 1 Memoria in 500 MG 1-06 tab, PO, l Oral Tablet 09:05: Q12H, X 3 H ermann [Cipro] 00 day, # 6 tab, 0 Refill(s) Ondansetron Yes 4 mg = 1 Me moria 4 MG 1-06 tab, PO, l Disintegrat 09:05: BID, PRN [...] Refill(s) Tylenol No Notes: Max Suleman lida 06-08 acetaminop l 05:56: hen 4000 [place] 00 mg/day (4 gm/day). (Same as: Tylenol Extra Strength) Tylenol No Notes: Max Suleman lida 06-08 acetaminop l 05:56: hen 4000 [place] 00 mg/day (4 gm/day). (Same as: Tylenol Extra Strength) Sodium No 1,000 mL, Memori a Chloride 06-08 1000 l 0.154 05:19: ml/hr, [place] MEQ/ML 00 Infuse Injectable Over: 1 Solution hr, Route: IV, 1,000, Drug form: INJ, ONCE, Priority: STAT, Dosing Weight 75.455 kg, Start date: 06/07/15 23:19:00, Duration: 1 doses or times, Stop date: 06/07/15 23:19:00 Saline No Notes: [facility] Flush 0.9% 06-08 (Same as: l 05:19: BD [place] 00 Posiflush) Morphine No Notes: [facility]oria 06-08 (Same l 05:19: as:MORPhin [place] 00 e Sulfate) Ondansetron No Notes: Suleman lida 06-08 (Same as: l 05:19: Zofran) Joon 00 MEDICATION WASTE Product Size: 4 mg Product Wasted: ___ mg Acetaminoph No Notes: Suleman lida en 325 MG / 06-08 (Same as: l Hydrocodone 05:19: [place] Laureen nn Bitartrate 00 325/5) Do 5 MG Oral not exceed Tablet 4gm/day of acetaminop hen. Sodium No 1,000 mL, Memori a Chloride 06-08 1000 l 0.154 05:19: ml/hr, Joon MEQ/ML 00 Infuse Injectable Over: 1 Solution hr, Route: IV, 1,000, Drug form: INJ, ONCE, Priority: STAT, Dosing Weight 75.455 kg, Start date: 06/07/15 23:19:00, Duration: 1 doses or times, Stop date: 06/07/15 23:19:00 Saline No Notes: [facility] Flush 0.9% 06-08 (Same as: l 05:19: BD [place] 00 Posiflush) Morphine No Notes: [facility]oria 06-08 (Same l 05:19: as:MORPhin [place] 00 e Sulfate) Ondansetron No Notes: Suleman lida 06-08 (Same as: l 05:19: Zofran) [place] 00 MEDICATION WASTE Product Size: 4 mg Product Wasted: ___ mg Acetaminoph No Notes: Suleman lida en 325 MG / 06-08 (Same as: l Hydrocodone 05:19: [place] Laureen nn Bitartrate 00 325/5) Do 5 MG Oral not exceed Tablet 4gm/day of acetaminop hen. Naproxen 2014-06 Yes 500 mg = 1 Mem oria 500 MG Oral 1-19 tab, PO, l Tablet 07:40: BID, PRN Joon [Naprosyn] 00 Pain, # 20 tab, 0 Refill(s) tramadol 2014-06 Yes 50 mg = 1 Suleman lida hydrochlori 1-19 tab, PO, l de 50 MG 07:40: BID, X 15 Herm teresa Oral Tablet 00 day, # 30 tab, 0 Refill(s) Naproxen 2014-06 Yes 500 mg = 1 Mem oria 500 MG Oral 1-19 tab, PO, l Tablet 07:40: BID, PRN [place] [Naprosyn] 00 Pain, # 20 tab, 0 Refill(s) tramadol 2014-06 Yes 50 mg = 1 Suleman lida hydrochlori 1-19 tab, PO, l de 50 MG 07:40: BID, X 15 Herm teresa Oral Tablet 00 day, # 30 tab, 0 Refill(s) Saline 2014-06 No Notes: [facility] Flush 0.9% 06-21 (Same as: l 05:44: BD [place] 00 Posiflush) Saline 2014-06 No Notes: [facility] Flush 0.9% 06-21 (Same as: l 05:44: BD [place] 00 Posiflush) Magic Mouth Yes 5 ml, Memor ia Wash 06-09 S&SPIT, l (Maalox/Car 16:35: QID, sore H ermann afate/Bendr 00 throat, # yl)1:1:1 180 ml, 0 Refill(s) Magic Mouth Yes 5 ml, Memor ia Wash 06-09 S&SPIT, l (Maalox/Car 16:35: QID, sore H ermann afate/Bendr 00 throat, # yl)1:1:1 180 ml, 0 Refill(s) Acetaminoph No Notes: Max [facility]oria en 06-09 acetaminop l 15:49: hen 4000 [place] 00 mg/day (4 gm/day). (Same as: Tylenol Extra Strength) Ibuprofen No Notes: Memori a 06-09 (Same as: l 15:49: Motrin) [place] 00 "Do Not Crush" Take with food. Acetaminoph No Notes: Max [facility]oria en 06-09 acetaminop l 15:49: hen 4000 [place] 00 mg/day (4 gm/day). (Same as: Tylenol Extra Strength) Ibuprofen No Notes: Memori a 06-09 (Same as: l 15:49: Motrin) [place] 00 "Do Not Crush" Take with food. Dexamethaso No Notes: Suleman lida ne 06-09 Give with l 15:48: food. [place] 00 (Same As: Decadron) Bicillin No Notes: Memoria L-A 06-09 (penicilli l 15:48: n G [place] 00 benzathine 1.2 MilUnit/2 ml INJ) (Same as: Bicillin L-A, Permapen) NOT For Daily Use Dexamethaso No Notes: Suleman lida ne 06-09 Give with l 15:48: food. J[place] 00 (Same As: Decadron) Bicillin No Notes: [facility] L-A 06-09 (penicilli l 15:48: n G [place] 00 benzathine 1.2 MilUnit/2 ml INJ) (Same as: Bicillin L-A, Permapen) NOT For Daily Use Dicyclomine Yes 10 mg = 1 M emoria Hydrochlori 8-21 cap, PO, l de 10 MG 04:48: QID, Joon Oral 00 abdominal Capsule cramping, [Bentyl] # 12 cap, 0 Refill(s) Dicyclomine Yes 10 mg = 1 M emoria Hydrochlori 8-21 cap, PO, l de 10 MG 04:48: QID, [place] Oral 00 abdominal Capsule cramping, [Bentyl] # 12 cap, 0 Refill(s) Morphine No Notes: Memoria 8- (Same l 02:32: as:MORPhin [place] 00 e Sulfate) Morphine No Notes: [facility]oria 8- (Same l 02:32: as:MORPhin [place] 00 e Sulfate) Omnipaque No Notes: Memori a 240 8- (Same l 02:01: as:Omnipaq [place] 00 ue 240) 12,000mg/5 0ml Ondansetron No Notes: Suleman lida 8- (Same as: l 02:01: Zofran) [place] 00 Dilaudid No Notes: Memoria 8-21 Same as: l 02:01: Dilaudid [place] Omnipaque No Notes: Memori a 240 8- (Same l 02:01: as:Omnipaq Joon ue 240) 12,000mg/5 0ml Ondansetron No Notes: Suleman lida 8-21 (Same as: l 02:01: Zofran) Joon Dilaudid No Notes: [facility]oria 8-21 Same as: l 02:01: Dilaudid [place] Saline No Notes: [facility] Flush 0.9% 8- (Same as: l 01:57: BD [place] 00 Posiflush) Saline No Notes: [facility] Flush 0.9% 8-21 (Same as: l 01:57: BD [place] Posiflush) Famotidine Yes 20 mg = 1 Me moria 20 MG Oral 7-17 tab, PO, l Tablet 00:55: BID, # 28 Raheem n [Pepcid] 00 tab, 0 Refill(s) ondansetron 2013-0 Yes 4 mg = 1 Me moria 4 mg oral 7-17 tab, PO, l tablet 00:55: BID, # 10 Raheem n 00 tab, 0 Refill(s) Dicyclomine 2013-0 Yes 20 mg = 1 M emoria Hydrochlori 7-17 tab, PO, l de 20 MG 00:55: QID, Joon Oral Tablet 00 abdominal [Bentyl] pain, # 28 tab, 0 Refill(s) Famotidine 2013-0 Yes 20 mg = 1 Me moria 20 MG Oral 7-17 tab, PO, l Tablet 00:55: BID, # 28 Raheem n [Pepcid] 00 tab, 0 Refill(s) ondansetron 2013-0 Yes 4 mg = 1 Me moria 4 mg oral 7-17 tab, PO, l tablet 00:55: BID, # 10 Raheem n 00 tab, 0 Refill(s) Dicyclomine 2013-0 Yes 20 mg = 1 M emoria Hydrochlori 7-17 tab, PO, l de 20 MG 00:55: QID, [place] Oral Tablet 00 abdominal [Bentyl] pain, # 28 tab, 0 Refill(s) Morphine 2013-0 No 4 mg, Memoria 7-16 Route: l 23:47: IVP, Drug [place] 00 form: INJ, ONCE, Dosing Weight 73.182, kg, Priority: STAT, Start date: 12/16/13 18:47:00, Stop date: 12/16/13 18:47:00 Morphine 2013-0 No 4 mg, Memoria 7-16 Route: l 23:47: IVP, Drug [place] 00 form: INJ, ONCE, Dosing Weight 73.182, kg, Priority: STAT, Start date: 12/16/13 18:47:00, Stop date: 12/16/13 18:47:00 Morphine 2013-0 No Notes: Memoria 7-16 (Same l 22:18: as:MORPhin [place] 00 e Sulfate) Morphine No Notes: [facility]oria 7-16 (Same l 22:18: as:MORPhin [place] 00 e Sulfate) Ondansetron 2014-0 No Notes: Suleman lida 7-16 (Same as: l 22:01: Zofran) [place] 00 Sodium No 1,000 mL, Memori a Chloride 7-16 1000 l 0.154 22:01: ml/hr, J[place] MEQ/ML 00 Infuse Injectable Over: 1 Solution hr, Route: IV, 1,000, Drug form: INJ, ONCE, Priority: STAT, Dosing Weight 73.182 kg, Start date: 12/16/13 17:01:00, Duration: 1 doses or times, Stop date: 12/16/13 17:01:00 Saline No Notes: [facility] Flush 0.9% 7-16 (Same as: l 22:01: BD [place] 00 Posiflush) Ondansetron No Notes: Suleman lida 7-16 (Same as: l 22:01: Zofran) Joon 00 Sodium No 1,000 mL, Memori a Chloride 7-16 1000 l 0.154 22:01: ml/hr, [place] MEQ/ML 00 Infuse Injectable Over: 1 Solution hr, Route: IV, 1,000, Drug form: INJ, ONCE, Priority: STAT, Dosing Weight 73.182 kg, Start date: 12/16/13 17:01:00, Duration: 1 doses or times, Stop date: 12/16/13 17:01:00 Saline No Notes: [facility] Flush 0.9% 7-16 (Same as: l 22:01: BD [place] 00 Posiflush) Immunizations Ordered Immunization Filled Immunization Date Status Commen Source Name Name diphtheria/pertussis 2018-02-26 Completed Suleman rial , acel/tetanus adult 20:01:00 Herm teresa diphtheria/pertussis 2018-02-26 Completed Suleman rial , acel/tetanus adult 20:01:00 [facility] teresa tetanus-diphtheria 2011-05-07 Completed Memori al toxoids 22:25:00 [place] tetanus-diphtheria 2011-05-07 Completed Mem[facility] al toxoids 22:25:00 J[place] tetanus-diphtheria 2011-05-07 Completed [facility] al toxoids 22:25:00 [place] tetanus-diphtheria 2011-05-07 Completed Mem[facility] al toxoids 22:25:00 [place] Vital Signs Vital Name Observation Time Observation Value Comments Source Systolic blood 2021-08-21 16:37:00 158 mm[Hg] Lakeshia Shipleyybold pressure Diastolic blood 2021-08-21 16:37:00 78 mm[Hg] Rickie hastings Seybold pressure Heart rate 2021-08-21 16:37:00 80 /min Lakeshia blackmanbomaris Body temperature 2021-08-21 16:37:00 36.83 Tiffany Valarie blackman Seybold Respiratory rate 2021-08-21 16:37:00 16 /min Vlaarie Torre Body height 2021-08-21 16:37:00 160 cm Lakeshia brannon Body weight 2021-08-21 16:37:00 88.089 kg Lakeshia brannon BMI 2021-08-21 16:37:00 34.40 kg/m2 Lakeshia blackmanbomaris Height 2020-05-28 05:09:00 157.48 CM Weight 2020-05-28 05:09:00 72.57 KG Temperature Oral (F) 2021-11-16 20:56:00 99 F [facility] [place] Heart Rate 2021-11-16 20:56:00 [facility] [place] Respitory Rate 2021-11-16 20:56:00 Memori al [place] Systolic (mm Hg) 2021-11-16 20:56:00 Suleman rial [place] Diastolic (mm Hg) 2021-11-16 20:56:00 Mem orial [place] Height 2021-11-16 17:15:00 160.02 cm [facility] [place] BMI Calculated 2021-11-16 17:15:00 Memori al [place] Weight 2021-11-16 17:15:00 [facility] [place] Systolic (mm Hg) 2021-11-16 17:15:00 Suelman rial [place] Diastolic (mm Hg) 2021-11-16 17:15:00 Mem orial [place] Heart Rate 2021-11-16 17:15:00 [facility] [place] Respitory Rate 2021-11-16 17:15:00 Memori al [place] Temperature Oral (F) 2021-11-16 17:15:00 101 F [facility] [place] Systolic (mm Hg) 2021-11-14 20:02:00 Suleman rial [place] Diastolic (mm Hg) 2021-11-14 20:02:00 Mem o[facility] [place] Heart Rate 2021-11-14 20:02:00 [facility] [place] Respitory Rate 2021-11-14 20:02:00 Mem[facility] al [place] Temperature Oral (F) 2021-11-14 20:02:00 98.3 F [facility] [place] Height 2021-11-14 16:59:00 160.02 cm [facility] J[place] BMI Calculated 2021-11-14 16:59:00 Memori al [place] Weight 2021-11-14 16:59:00 [facility] [place] Systolic (mm Hg) 2021-11-14 16:59:00 Suleman rial Joon Diastolic (mm Hg) 2021-11-14 16:59:00 Mem o[facility] [place] Heart Rate 2021-11-14 16:59:00 [facility] [place] Respitory Rate 2021-11-14 16:59:00 Mem[facility] al [place] Temperature Oral (F) 2021-11-14 16:59:00 98.9 F [facility] [place] Heart Rate 2021-08-29 00:28:00 [facility] [place] Respitory Rate 2021-08-29 00:28:00 [facility] al [place] Systolic (mm Hg) 2021-08-29 00:28:00 Suleman rial [place] Diastolic (mm Hg) 2021-08-29 00:28:00 Mem [facility] [place] Height 2021-08-28 21:23:00 162.56 cm [facility] [place] BMI Calculated 2021-08-28 21:23:00 Memori al Joon Weight 2021-08-28 21:23:00 [facility] [place] Systolic (mm Hg) 2021-08-28 21:23:00 Suleman rial [place] Diastolic (mm Hg) 2021-08-28 21:23:00 Mem o[facility] [place] Heart Rate 2021-08-28 21:23:00 [facility] [place] Respitory Rate 2021-08-28 21:23:00 Mem[facility] al [place] Temperature Oral (F) 2021-08-28 21:23:00 98.2 F [facility] [place] Temperature Oral (F) 2020-01-25 09:12:00 98.2 F [facility] [place] Systolic (mm Hg) 2020-01-25 09:12:00 Suleman rial [place] Diastolic (mm Hg) 2020-01-25 09:12:00 Mem o[facility] [place] Respitory Rate 2020-01-25 09:12:00 [facility] al [place] Heart Rate 2020-01-25 09:12:00 [facility] [place] Height 2020-01-25 05:25:00 160.02 cm [facility] [place] BMI Calculated 2020-01-25 05:25:00 [facility] [place] Weight 2020-01-25 05:25:00 [facility] [place] Systolic (mm Hg) 2020-01-25 05:25:00 Usleman rial Joon Diastolic (mm Hg) 2020-01-25 05:25:00 [facility] [place] Heart Rate 2020-01-25 05:25:00 [facility] [place] Respitory Rate 2020-01-25 05:25:00 [facility] [place] Temperature Oral (F) 2020-01-25 05:25:00 98.2 F [facility] [place] Systolic (mm Hg) 2019-07-18 20:14:00 Suleman rial [place] Diastolic (mm Hg) 2019-07-18 20:14:00 Mem orial [place] Heart Rate 2019-07-18 20:14:00 [facility] [place] Respitory Rate 2019-07-18 20:14:00 Memori al [place] Temperature Oral (F) 2019-07-18 20:14:00 98.5 F [facility] [place] Height 2019-07-18 20:14:00 160.02 cm [facility] [place] BMI Calculated 2019-07-18 20:14:00 [facility] [place] Weight 2019-07-18 20:14:00 [facility] [place] Systolic (mm Hg) 2019-07-09 00:55:00 Suleman rial [place] Diastolic (mm Hg) 2019-07-09 00:55:00 Mem [facility] [place] Respitory Rate 2019-07-09 00:55:00 [facility] [place] Heart Rate 2019-07-09 00:55:00 [facility] [place] Temperature Oral (F) 2019-07-09 00:55:00 99.5 F [facility] [place] Systolic (mm Hg) 2019-07-08 23:31:00 Suleman rial [place] Diastolic (mm Hg) 2019-07-08 23:31:00 Mem o[facility] [place] Heart Rate 2019-07-08 23:31:00 [facility] [place] Respitory Rate 2019-07-08 23:31:00 [facility] al [place] Temperature Oral (F) 2019-07-08 23:31:00 98.4 F [facility] [place] Height 2019-07-08 23:31:00 160.02 cm [facility] [place] BMI Calculated 2019-07-08 23:31:00 [facility] [place] Weight 2019-07-08 23:31:00 [facility] [place] Temperature Oral (F) 2018-02-26 22:56:00 98.5 F [facility] [place] Systolic (mm Hg) 2018-02-26 22:56:00 Suleman rial [place] Diastolic (mm Hg) 2018-02-26 22:56:00 Mem orial [place] Heart Rate 2018-02-26 22:56:00 [facility] [place] Respitory Rate 2018-02-26 22:56:00 [facility] [place] Respitory Rate 2018-02-26 20:36:00 Mem[facility] al [place] Temperature Oral (F) 2018-02-26 20:36:00 98.6 F [facility] [place] Systolic (mm Hg) 2018-02-26 20:36:00 Suleman rial [place] Diastolic (mm Hg) 2018-02-26 20:36:00 Mem o[facility] [place] Heart Rate 2018-02-26 20:36:00 [facility] [place] Temperature Oral (F) 2018-02-26 19:50:00 99.1 F [facility] [place] Weight 2018-02-26 19:50:00 [facility] [place] Heart Rate 2018-02-26 19:50:00 [facility] [place] Systolic (mm Hg) 2018-02-26 19:50:00 Suleman rial [place]oon Diastolic (mm Hg) 2018-02-26 19:50:00 Mem [facility] [place] Respitory Rate 2018-02-26 19:50:00 [facility] [place] Respitory Rate 2016-11-19 03:43:00 [facility] [place] Systolic (mm Hg) 2016-11-19 03:43:00 Suleman rial [place] Diastolic (mm Hg) 2016-11-19 03:43:00 Mem orial [place] Respitory Rate 2016-11-19 02:00:00 [facility] al [place] Systolic (mm Hg) 2016-11-19 02:00:00 Suleman rial [place] Diastolic (mm Hg) 2016-11-19 02:00:00 Mem orial [place] Respitory Rate 2016-11-19 01:42:00 [facility] al [place] Systolic (mm Hg) 2016-11-19 01:42:00 Suleman rial [place] Diastolic (mm Hg) 2016-11-19 01:42:00 [facility] [place] Heart Rate 2016-11-19 00:48:00 [facility] [place] Weight 2016-11-19 00:23:00 [facility] [place] Temperature Oral (F) 2016-11-19 00:23:00 99.6 F [facility] [place] Height 2016-11-19 00:23:00 160.02 cm [facility] [place] BMI Calculated 2016-11-19 00:23:00 [facility] [place] Heart Rate 2016-11-19 00:23:00 [facility] [place] Respitory Rate 2015-07-28 11:56:00 [facility] [place] Heart Rate 2015-07-28 11:56:00 [facility] [place] Temperature Oral (F) 2015-07-28 11:56:00 98.2 F [facility] [place] Systolic (mm Hg) 2015-07-28 11:56:00 Suleman rial [place] Diastolic (mm Hg) 2015-07-28 11:56:00 Mem orial [place] Temperature Oral (F) 2015-07-28 10:03:00 98.1 F [facility] [place] Height 2015-07-28 10:03:00 167.64 cm [facility] [place] Weight 2015-07-28 10:03:00 [facility] [place] BMI Calculated 2015-07-28 10:03:00 Memori al [place] Systolic (mm Hg) 2015-07-28 10:03:00 Suleman rial [place] Diastolic (mm Hg) 2015-07-28 10:03:00 Mem o[facility] [place] Respitory Rate 2015-07-28 10:03:00 [facility] al [place] Heart Rate 2015-07-28 10:03:00 [facility] [place] Systolic (mm Hg) 2015-06-08 07:40:00 Suleman rial [place] Diastolic (mm Hg) 2015-06-08 07:40:00 Mem o[facility] [place] Temperature Oral (F) 2015-06-08 07:40:00 99.4 F [facility] [place] Respitory Rate 2015-06-08 07:40:00 [facility] al [place] Heart Rate 2015-06-08 07:40:00 [facility] [place] Weight 2015-06-08 05:16:00 [facility] [place] BMI Calculated 2015-06-08 05:16:00 [facility] [place] Height 2015-06-08 05:16:00 160.02 cm [facility] [place] Temperature Oral (F) 2015-06-08 05:16:00 102.5 F [facility] [place] Respitory Rate 2015-06-08 05:16:00 [facility] al [place] Heart Rate 2015-06-08 05:16:00 [facility] [place] Systolic (mm Hg) 2015-06-08 05:16:00 Suleman rial [place] Diastolic (mm Hg) 2015-06-08 05:16:00 Mem o[facility] [place] Systolic (mm Hg) 2015-04-21 07:26:00 Suleman rial [place] Diastolic (mm Hg) 2015-04-21 07:26:00 Mem o[facility] [place] Respitory Rate 2015-04-21 07:26:00 Mem[facility] al [place] Heart Rate 2015-04-21 07:26:00 [facility] [place] Weight 2015-04-21 05:43:00 [facility] [place] Temperature Oral (F) 2015-04-21 05:43:00 98.4 F [facility] [place] BMI Calculated 2015-04-21 05:43:00 Mem[facility] al [place] Height 2015-04-21 05:43:00 160.02 cm [facility] [place] Systolic (mm Hg) 2015-04-21 05:43:00 Suleman rial [place] Diastolic (mm Hg) 2015-04-21 05:43:00 Mem o[facility] [place] Respitory Rate 2015-04-21 05:43:00 Mem[facility] al [place] Heart Rate 2015-04-21 05:43:00 [facility] [place] Diastolic (mm Hg) 2014-06-09 16:33:00 [facility] [place] Systolic (mm Hg) 2014-06-09 16:33:00 Suleman rial [place] Heart Rate 2014-06-09 16:33:00 [facility] [place] Respitory Rate 2014-06-09 16:33:00 [facility] al [place] Temperature Oral (F) 2014-06-09 16:33:00 99.8 F [facility] [place] Diastolic (mm Hg) 2014-06-09 15:37:00 [facility] [place] Systolic (mm Hg) 2014-06-09 15:37:00 Suleman rial [place] Heart Rate 2014-06-09 15:37:00 [facility] [place] Respitory Rate 2014-06-09 15:37:00 Mem[facility] al [place] Temperature Oral (F) 2014-06-09 15:37:00 100.9 F [facility] [place] Height 2014-06-09 15:37:00 160.02 cm [facility] [place] Weight 2014-06-09 15:37:00 [facility] [place] BMI Calculated 2014-06-09 15:37:00 [facility] al [place] Respitory Rate 2014-01-21 04:47:00 [facility] al [place] Systolic (mm Hg) 2014-01-21 04:47:00 Suleman rial [place] Heart Rate 2014-01-21 04:47:00 [facility] [place] Diastolic (mm Hg) 2014-01-21 04:47:00 [facility] [place] Temperature Oral (F) 2014-01-21 04:47:00 97.8 F [facility] [place] Diastolic (mm Hg) 2014-01-21 03:31:00 Mem o[facility] [place] Systolic (mm Hg) 2014-01-21 03:31:00 Suleman rial [place] Respitory Rate 2014-01-21 03:31:00 Mem[facility] al [place] Heart Rate 2014-01-21 03:31:00 [facility] [place] Heart Rate 2014-01-21 01:00:00 [facility] [place] Respitory Rate 2014-01-21 01:00:00 [facility] [place] Systolic (mm Hg) 2014-01-21 01:00:00 Suleman rial [place] Diastolic (mm Hg) 2014-01-21 01:00:00 Mem [facility] BMI Calculated 2014-01-20 20:25:00 [facility] [place] Weight 2014-01-20 20:25:00 [facility] [place] Temperature Oral (F) 2014-01-20 20:25:00 98.6 F [facility] [place] Height 2014-01-20 20:25:00 160.02 cm [facility] [place] Diastolic (mm Hg) 2013-12-17 01:20:00 [facility] [place] Systolic (mm Hg) 2013-12-17 01:20:00 Suleman rial [place] Respitory Rate 2013-12-17 01:20:00 [facility] [place] Heart Rate 2013-12-17 01:20:00 [facility] [place] Heart Rate 2013-12-17 00:00:00 [facility] [place] Respitory Rate 2013-12-17 00:00:00 [facility] [place] Systolic (mm Hg) 2013-12-17 00:00:00 Suleman rial [place] Diastolic (mm Hg) 2013-12-17 00:00:00 [facility] [place] Weight 2013-12-16 21:18:00 [facility] [place] Height 2013-12-16 21:18:00 160.02 cm [facility] [place] BMI Calculated 2013-12-16 21:18:00 [facility] [place] Respitory Rate 2013-12-16 21:18:00 [facility] [place] Temperature Oral (F) 2013-12-16 21:18:00 98.7 F [facility] Heart Rate 2013-12-16 21:18:00 [facility] [place] Diastolic (mm Hg) 2013-12-16 21:18:00 [facility] [place] Systolic (mm Hg) 2013-12-16 21:18:00 Suleman rial [place] Weight 2013-12-03 04:25:00 [facility] [place] Systolic (mm Hg) 2013-12-03 04:25:00 Suleman rial [place] Heart Rate 2013-12-03 04:25:00 [facility] [place] Respitory Rate 2013-12-03 04:25:00 [facility] [place] Diastolic (mm Hg) 2013-12-03 04:25:00 [facility] [place] Temperature Oral (F) 2013-12-03 04:25:00 98.4 F [facility] [place] BMI Calculated 2013-12-03 04:25:00 [facility] [place] Height 2013-12-03 04:25:00 160.02 cm [facility] Procedure Date / Time Performed Performing Clinician [facility] e CHEST PA LATERAL 2021-08-21 17:38:44 Rosette Garcia Seyb old COVID-19 QUALITATIVE 2020-04-27 20:45:00 Juan Jose Wilkins [facility] RT-PCR Karl Appendectomy [facility] Plan of Care Planned Activity Planned Date Details Comments Source Future Scheduled 2022-05-18 INFLUENZA VACCINE [facility] Test 19:13:25 [code = INFLUENZA VACCINE] Future Scheduled 2022-05[facility]18 [facility] (#[facility] [code = COVID-19 VACCINE (#1)] Future Scheduled 2022-05-18 [facility]INE [facility] 19:13:25 [code = INFLUENZA VACCINE] Future Scheduled 2022-05-18 COVID-[facility]ACCINE [facility] 19:13:25 (#1) [code = COVID-19 VACCINE (#1)] Future Scheduled 2022-05-18 [facility]INE [facility] 19:13:25 [code = INFLUENZA VACCINE] Future Scheduled 2022-05-18 COVID-[facility]INE [facility] 19:13:25 (#1) [code = COVID-19 VACCINE (#1)] Future Scheduled 2022-05-18 [facility]INE [facility] 19:13:25 [code = INFLUENZA VACCINE] Future Scheduled 2022-05-18 COVID-[facility]INE [facility] 19:13:25 (#1) [code = COVID-19 VACCINE (#1)] Future Scheduled 2022-04-07 [facility] 06:27:26 VACCINES (1 of 3 - 3-dose series) [code = HEPATITIS B VACCINES (1 of 3 - 3-dose series)] Future Scheduled 2022-04-07 COVID-[facility]INE [facility] 06:27:26 (#1) [code = COVID-19 VACCINE (#1)] Future Scheduled 2022-04-07 [facility] 06:27:26 [code = INFLUENZA VACCINE] Future Scheduled COVID-19 [facility]INE [facility] (1) [code = COVID-19 VACCINE (1)] Future Scheduled [facility]ACC[facility] [code = INFLUENZA VACCINE] Encounters Start End Encounter Admission Attending Care Care Encounter Source Date/Time Date/Time Type Type Clinicians Facility Department ID 2022-06-26 Outpatient [facility] [id number] [place] 04:16:50 [id number] [facility] 2022-05-02 Outpatient [facility] [id number] [place] 07:15:49 [id number] [facility] 2022-04-24 Outpatient [facility] [id number] [place] 10:15:19 [id number] [facility] 2022-08-06 2022-08-06 Outpatient EDGAR [facility] [id number] [place] 11:00:00 11:00:00 [facility] 2022-06-25 2022-06-25 Office Scobercea, [facility]TP ORTHO 1.2.840.114 1 [id number] [place] 11:00:00 11:32:51 Visit Adalid RAYA 350.1.13.58 H ealth K 9.2.7.2.686 [id number] 1 2022-05-18 2022-05-18 Outpatient SCOBERCEA, [facility] [id number] [place] 10:40:00 10:40:00 [facility] 2022-05-10 2022-05-10 Outpatient SCOBERCEA, [facility] [id number] [place] 11:00:00 11:00:00 [facility] 2022-01-11 2022-02-10 OP Therapy nullFlavo SMR [id number] Memoria 20:00:00 04:59:00 Patients r Kaylan 01 l [facility] 2022-01-11 2022-02-10 OP Therapy nullFlavo SMR [id number] Memoria 20:00:00 04:59:00 Patients r Kaylan 01 l [facility] 2022-01-11 2022-02-09 Outpatient Scobercea, 2.16.840. 2.16.840.1 . [id number] 15:00:00 23:59:00 Adalid 1.093170. 724977.3.61 01 Taran 3.615.132 5.132 2022-02-08 2022-02-08 Office Scobercea, [facility]TP ORTHO 1.2.840.114 1 [id number] [place] 14:40:00 15:20:20 Visit Adalid RAYA 350.1.13.58 H ealth K 9.2.7.2.686 [id number] 1 2021-12-07 2022-01-06 OP Therapy nullFlavo SMR [id number] Memoria 20:46:00 04:59:00 Patients r Kaylan 00 l [facility] 2021-12-07 2022-01-06 OP Therapy nullFlavo SMR [id number] Memoria 20:46:00 04:59:00 Patients r Kaylan 00 l [facility] 2021-12-07 2022-01-05 Outpatient Scobercea, 2.16.840. 2.16.840.1 . [id number] 15:46:00 23:59:00 Adalid 1.813062. 811383.3.61 00 Taran 3.615.132 5.132 2022-01-05 2022-01-05 Telephone Jovanna Villafuerte [facility] 1.2.84 0.114 [id number] [place] 00:00:00 00:00:00 Jovanna Villafuerte 350.1.13.58 Health K 9.2.7.2.686 [id number] 1 2022-01-04 2022-01-04 Office SAM Lam ORTHO 1.2.840.114 1 [id number] [place] 08:00:00 09:07:35 Visit Adalid RAYA 350.1.13.58 H ealth K 9.2.7.2.686 [id number] 1 2021-11-23 2021-11-23 Office SAM Lam ORTHO 1.2.840.114 1 [id number] [place] 13:40:00 14:15:40 Visit Adalid RAYA 350.1.13.58 H ealth K 9.2.7.2.686 [id number] 1 2021-11-23 2021-11-23 Telephone Jovanna Villafuerte [facility] 1.2.84 0.114 [id number] [place] 00:00:00 00:00:00 Jovanna Villafuerte 350.1.13.58 Health K 9.2.7.2.686 [id number] 1 2021-11-16 2021-11-16 [facility] [id number] Memoria 16:59:48 20:59:00 travis Dupree 16 jamil [facility] 2021-11-16 2021-11-16 Emergency nullFlavo [facility] [id number] Memoria 16:59:48 20:59:00 travis negron [facility] 2021-11-16 2021-11-16 [facility] [id number] 11:59:48 15:59:00 Rosana Duggan 2021-11-16 2021-11-16 Emergency E JOE SAUCEDO [place] 7516 MHNE 11:59:00 15:59:00 ROSANA 2021-11-14 2021-11-14 Emergency [facility] [id number] Memoria 16:53:27 20:08:00 r Joon 15 l [facility] 2021-11-14 2021-11-14 Emergency [facility] [id number] Memoria 16:53:27 20:08:00 r Joon 15 l [facility] 2021-11-14 2021-11-14 Outpatient Richar, [facility] [id number] 11:53:27 15:08:00 Sampson 15 2021-11-14 2021-11-14 Emergency E [place]E ARCHULETA [place] 7515 MHNE 11:53:00 15:08:00 ETIENNE 2021-10-27 2021-10-27 Telephone Noy Jovanna [facility] 1.2.84 0.114 [id number] [place] 00:00:00 00:00:00 Jovanna Villafuerte 350.1.13.58 Health K 9.2.7.2.686 [id number] 1 2021-10-26 2021-10-26 Office SAM Lam ORTHO 1.2.840.114 1 [id number] [place] 13:40:00 14:38:19 Visit Adalid RAYA 350.1.13.58 H ealth K 9.2.7.2.686 [id number] 1 2021-10-23 2021-10-23 Telephone Yessy Winters [facility] 1.2.840.114 [id number] [place] 00:00:00 00:00:00 Yessy Winters 350.1. 13.58 Health K 9.2.7.2.686 [id number] 1 2021-10-19 2021-10-19 Office SAM Lam ORTHO 1.2.840.114 1 [id number] [place] 15:00:00 15:50:13 Visit Adalid RAYA 350.1.13.58 H ealth K 9.2.7.2.686 [id number] 1 2021-09-21 2021-09-21 Telephone Jovanna Villafuerte [facility] 1.2.84 0.114 [id number] [place] 00:00:00 00:00:00 Jovanna Villafuerte 350.1.13.58 Health K 9.2.7.2.686 [id number] 1 2021-09-20 2021-09-20 Office Tom[place]iaSAM ORTHO 1.2.840.114 1 [id number] [place] 08:00:00 08:28:13 Visit Adalid RAYA 350.1.13.58 H ealth K 9.2.7.2.686 [id number] 1 2021-09-04 2021-09-04 Office Tom[place]iaSAM ORTHO 1.2.840.114 1 [id number] [place] 08:30:00 09:03:56 Visit Adalid RAYA 350.1.13.58 H ealth K 9.2.7.2.686 [id number] 1 2021-09-04 2021-09-04 Telephone Jovanna Villafuerte [facility]TH[facility] 1.2.84 0.114 [id number] [place] 00:00:00 00:00:00 Jovanna Villafuerte 350.1.13.58 Health K 9.2.7.2.686 [id number] 1 2021-08-28 2021-08-29 [facility] [id number] Memoria 21:14:43 00:41:00 r Joon Leigh l [facility] 2021-08-28 2021-08-29 [facility] [id number] Memoria 21:14:43 00:41:00 r Joon 14 l [facility] 2021-08-29 2021-08-29 Abstract SAM Lam ORTHO 1.2.840.114 [id number] [place] 00:00:00 00:00:00 Adalid PEREZSCOCIT 350.1.13.58 Health A 9.2.7.2.686 [id number] 1 2021-08-28 2021-08-[address] [facility] [id number] [facility] 16:14:43 19:41:00 Cora Santos 2021-08-28 2021-08-28 Emergency E REYNALDO JOE [place] 7514 MHNE 16:14:00 19:41:00 CORA 2021-08-21 2021-08-21 Outpatient LAKESHIA LAKESHIA [id number] [place] 12:15:00 12:15:00 Seybol d 2021-08-21 2021-08-21 [facility] 1.2.840.114 [id number] [place] 11:15:00 11:30:00 Visit [facility] 350.1.13.13 Se ybold AND 1.2.7.2.686 DIAGNOSTI [id number] C CENTER 0 2020-05-28 2020-05-28 Emergency E TIM [facility] 1000 [id number] [facility] 05:09:00 08:44:00 RUBIA [facility]ica [facility] 2020-04-27 2020-04-27 Lab Franky, 1.2.840.1 [id number] Methodi 14:20:42 14:25:42 [place] [address] [place] [address] 3.430.2.7 Hospit a .3.367097 l .8 2020-01-25 2020-01-25 Emergency [facility]Fl[facility] [id number] Memoria 05:08:59 09:40:00 r Joon negron [facility] 2020-01-25 2020-01-25 Emergency [facility]Flavo [facility] [id number] Memoria 05:08:59 09:40:00 r Joon negron [facility] 2020-01-25 2020-01-[address] [facility] [id number] 00:08:59 04:40:00 Hoon 13 2020-01-25 2020-01-[address] [facility] 00:08:00 04:40:00 2019-07-18 2019-07-18 Emergency [facility]Flavo [facility] [id number] Memoria 20:06:56 21:00:00 r Joon negron [facility] 2019-07-18 2019-07-18 Emergency [facility]Fl[facility] [id number] Memoria 20:06:56 21:00:00 travis Dupree 12 l [facility] 2019-07-18 2019-07-18 [facility] [id number] 14:06:56 15:00:00 Dante Keating 2019-07-18 2019-07-18 Emergency E ARVIND, [facility]NW MHNW 7512 MHNW 14:06:00 15:00:00 DNATE 2019-07-08 2019-07-09 Emergency [facility]Fl[facility] [id number] Memoria 23:22:36 01:01:00 r Joon 11 l [facility] 2019-07-08 2019-07-09 Emergency [facility]Flavo [facility] [id number] Memoria 23:22:36 01:01:00 travis Dupree Leonor negron [facility] 2019-07-08 2019-07-08 Outpatient BAKHT, MHNW MHNW 0041 MHNW 17:00:00 23:59:00 JERMAIN 2019-07-08 2019-07-08 Out[facility] Morelos[facility] [id number] 17:22:36 19:01:00 Angel Sauer 2019-07-08 2019-07-08 Emergency E MORELOS, MHNW MHNW 7511 MHNW 17:22:00 19:01:00 ANGEL 2018-02-26 2018-02-26 Emergency [facility]Flavo [facility] [id number] Memoria 19:48:00 23:07:00 travis negron [facility] 2018-02-26 2018-02-26 Emergency nullFlavo [facility] [id number] Memoria 19:48:00 23:07:00 travis negron [facility] 2018-02-26 2018-02-26 Outpatient Ndum, [facility] [id number] 14:48:00 18:07:00 Maximilianbisi Alvarado 2017-07-03 2017-07-03 Outpatient [facility] [id number] [place] 00:00:00 00:00:00 [facility] 2017-06-28 2017-06-29 Outpatient [facility] [id number] [place] 00:00:00 00:00:00 [facility] 2017-06-23 2017-06-23 Emergency E BA, GERRI [facility] [id number] [facility] 11:52:00 13:51:00 Medica l [place] 2017-06-21 2017-06-22 Emergency E JESSY [facility] [id number] 23:24[facility] 02:15:00 HERMAN Medica l [place] 2016-11-19 2016-11-19 Emergency [facility]Flavo [facility] [id number] Memoria 00:07:00 04:39:00 r Joon 09 l [facility] 2016-11-19 2016-11-19 Emergency [facility]Flavo [facility] [id number] Memoria 00:07:00 04:39:00 r Joon 09 [facility] 2016-11-18 2016-11-18 [address] See Griffin [facility] [id number] 19:07:00 23:39:00 2016-11-09 2016-11-09 Emergency E TESHA JIMÉNEZ [facility] 1000 [id number] [facility] 12:10:00 13:05:00 Medica [facility] 2015-07-28 2015-07-28 EC nullFlavo [facility] [id number] Memoria 10:00:00 12:25:00 Emergency r Joon 08 l [facility] 2015-07-28 2015-07-28 EC nullFlavo [facility] [id number] Memoria 10:00:00 12:25:00 Emergency r [place] 08 l [facility] 2015-07-28 2015-07-28 Outpatient Allison[facility] [id number] 04:00:00 06:25:00 Renetta 08 2015-06-08 2015-06-08 EC [facility]Flavo [facility] [id number] Memoria 04:27:00 09:31:00 Emergency r [place] 07 l [facility] 2015-06-08 2015-06-08 EC nullFlavo [facility] [id number] Memoria 04:27:00 09:31:00 Emergency r [place] 07 [facility] 2015-06-07 2015-06-[address] [facility] [id number] 22:27:00 03:31:00 Cora Santos 2015-04-21 2015-04-21 EC [facility]Flavo [facility] [id number] Memoria 05:24:00 07:48:00 Emergency r [place] 06 l [facility] 2015-04-21 2015-04-21 EC nullFlavo [facility] [id number] Memoria 05:24:00 07:48:00 Emergency r Joon 06 l [facility] 2015-04-20 2015-04-21 Outpatient See Griffin [facility] [id number] 23:24:00 01:48:00 Gaurav 06 2014-06-09 2014-06-09 EC nullFlavo [facility] [id number] Memoria 15:32:00 16:43:00 Emergency r Joon 05 l [facility] 2014-06-09 2014-06-09 EC nullFlavo [facility] [id number] Memoria 15:32:00 16:43:00 Emergency r Joon 05 [facility] 2014-06-09 2014-06-09 Outpatient Lluvia, 2.16.840. 2.16.840.1. 3 [id number] 09:32:00 10:43:00 Joslyn Gandhi 1.219836. 019062.3.61 05 3.615.0.1 5.0.089 81 6968-08-20 2014-01-21 EC nullFlavo [facility] [id number] Memoria 20:22:00 04:57:00 Emergency r Joon 04 l [facility] 2014-01-20 2014-01-21 EC nullFlavo [facility] [id number] Memoria 20:22:00 04:57:00 Emergency r [place] 04 [facility] 2014-01-20 2014-01-20 Outpatient Vickers Ritchie 2.16.840. 2.16.840.1. [id number] 15:22:00 23:57:00 Pop 1.358074. 617799.3.61 04 3.615.0.1 5.0.001 90 7584-07-16 2013-12-17 EC [facility]Flavo [facility] [id number] Memoria 21:09:00 01:25:00 Emergency r Joon 03 l [facility] 2013-12-16 2013-12-17 EC nullFlavo [facility] [id number] Memoria 21:09:00 01:25:00 Emergency r Joon 03 l [facility] 2013-12-16 2013-12-16 Outpatient Reynaldo, 2.16.840. 2.16.840.1. 3 [id number] 16:09:00 20:25:00 Cora 1.233710. 095608.3.61 03 Tom 3.615.0.1 5.0.993 91 9244-07-03 2013-12-03 [facility] [id number] Memoria 03:54:00 06:38:00 Emergency r [place] 02 l [facility] 2013-12-03 2013-12-03 [facility] [id number] Memoria 03:54:00 06:38:00 Emergency r Joon 02 l [facility] 2013-12-02 2013-12-03 Outpatient Reynaldo, 2.16.840. 2.16.840.1. 3 [id number] 22:54:00 01:38:00 Cora Armstrong.630405. 746705.3.61 Tom 3.615.0.1 5.0.101 01 Results Test Description Test Time Test Comments Results Result Comments Source CHEM PANEL 2021-11-16 17:23:00 Test Item Value Reference Range Interpretation Comme nts Glucose Lvl (test code = Glucose Lvl) 85 70-99 [facility]2022-06-16 17:23:00 Test Item Value Reference Range Interpretation Comments BUN (test code = BUN) 13 7-22 [facility]2022-06-16 17:23:00 Test Item Value Reference Range Interpretation Comments Creatinine Lvl (test code = Creatinine 1.21 0.50-1.40 Lvl) [facility]2022-06-16 17:23:00 Test Item Value Reference Range Interpretation Comments Sodium Lvl (test code = Sodium Lvl) 142 135-145 [facility]2022-06-16 17:23:00 Test Item Value Reference Range Interpretation Comments Potassium Lvl (test code = Potassium 3.8 3.5-5.1 Lvl) [facility]2022-06-16 17:23:00 Test Item Value Reference Range Interpretation Comments Chloride Lvl (test code = Chloride Lvl) 108 95-109 [facility] [id number] 17:23:00 Test Item Value Reference Range Interpretation Comments CO2 (test code = CO2) 29 24-32 [place] 979312-06-16 17:23:00 Test Item Value Reference Range Interpretation Comments Calcium Lvl (test code = Calcium Lvl) 8.6 8.5-10.5 [place] 979312-06-16 17:23:00 Test Item Value Reference Range Interpretation Comments Total Protein (test code = Total 7.3 6.4-8.4 Protein) [place] 979312-06-16 17:23:00 Test Item Value Reference Range Interpretation Comments Albumin Lvl (test code = Albumin Lvl) 3.7 3.5-5.0 [place] 979312-06-16 17:23:00 Test Item Value Reference Range Interpretation Comments ALT (test code = ALT) 41 See_Comment [Auto mated message] The system which ge nerated this result transmit ezequiel reference range : <=65. The reference range was not used to interpr et this result as grace l/abnormal. [place] 979312-06-16 17:23:00 Test Item Value Reference Range Interpretation Comments AST (test code = AST) 18 See_Comment [Auto mated message] The system which ge nerated this result transmit ezequiel reference range : <=37. The reference range was not used to interpr et this result as grace l/abnormal. [facility]2022-06-16 17:23:00 Test Item Value Reference Range Interpretation Comments Alk Phos (test code = Alk Phos) 63 39-136 [place] 979312-06-16 17:23:00 Test Item Value Reference Range Interpretation Comments Bili Total (test code = Bili Total) 0.4 0.2-1.3 [place] 979312-06-16 17:23:00 Test Item Value Reference Range Interpretation Comments AGAP (test code = AGAP) 8.8 10.0-20.0 [place] 979312-06-16 17:23:00 Test Item Value Reference Range Interpretation Comments B/C Ratio (test code = B/C Ratio) 11 1 6-25 [place] [address]262-06-16 17:23:00 Test Item Value Reference Range Interpretation Comments Globulin (test code = Globulin) 3.6 2.7-4.2 [place] 979312-06-16 17:23:00 Test Item Value Reference Range Interpretation Comments A/G Ratio (test code = A/G Ratio) 1.0 1 0.7-1.6 [facility]2022-06-16 17:23:00 Test Item Value Reference Range Interpretation Comments eGFR (test code = eGFR) 78 [place] 979312-06-16 17:23:00 Test Item Value Reference Range Interpretation Comments Lactic Acid Lvl (test code = Lactic 1.3 0.5-2.2 Acid Lvl) [place] 979312-06-16 17:23:00 Test Item Value Reference Range Interpretation Comments Procalcitonin Lvl (test no gt See_Comment [Au tomated message] code = Procalcitonin Lvl) e system which generated this result transmitted ref erence range: <=0.10. The reference range was not used to interpr et this result as normal/abnormal . [id number] 17:23:00 Test Item Value Reference Range Interpretation Comments WBC (test code = WBC) 9.5 3.7-10.4 [place] 374792-06-16 17:23:00 Test Item Value Reference Range Interpretation Comments RBC (test code = RBC) 4.66 4.70-6.10 [place] [address]-06-16 17:23:00 Test Item Value Reference Range Interpretation Comments Hgb (test code = Hgb) 14.4 14.0-18.0 [place] [address]-06-16 17:23:00 Test Item Value Reference Range Interpretation Comments Hct (test code = Hct) 42.6 42.0-54.0 [place] [address]-06-16 17:23:00 Test Item Value Reference Range Interpretation Comments MCV (test code = MCV) 91.4 80.0-94.0 [place] [address]-06-16 17:23:00 Test Item Value Reference Range Interpretation Comments MCH (test code = MCH) 30.9 pg 27.0-31.0 [place] 374792-06-16 17:23:00 Test Item Value Reference Range Interpretation Comments MCHC (test code = MCHC) 33.8 32.0-36.0 [place] [address]-06-16 17:23:00 Test Item Value Reference Range Interpretation Comments RDW (test code = RDW) 13.1 11.5-14.5 [place] [address]-06-16 17:23:00 Test Item Value Reference Range Interpretation Comments Platelet (test code = Platelet) 231 133-450 [place] 374792-06-16 17:23:00 Test Item Value Reference Range Interpretation Comments MPV (test code = MPV) 9.8 7.4-10.4 [place] 374792-06-16 17:23:00 Test Item Value Reference Range Interpretation Comments Segs (test code = Segs) 71.2 45.0-75.0 [place] [address]-06-16 17:23:00 Test Item Value Reference Range Interpretation Comments Lymphocytes (test code = Lymphocytes) 15.6 20.0-40.0 [place] 374792-06-16 17:23:00 Test Item Value Reference Range Interpretation Comments Monocytes (test code = Monocytes) 9.0 2.0-12.0 [place] 374792-06-16 17:23:00 Test Item Value Reference Range Interpretation Comments Eosinophils (test code = 3.5 See_Comment [A utomated message] The Eosinophils) system which ge nerated this result tra nsmitted reference range : <=4.0. The reference r tony was not used to int erpret this result as normal/abnormal . [place] 374792-06-16 17:23:00 Test Item Value Reference Range Interpretation Comments Basophils (test code = 0.7 See_Comment [Aut omated message] The Basophils) system which ge nerated this result tra nsmitted reference range : <=1.0. The reference r tony was not used to int erpret this result as normal/abnormal . [place] 374792-06-16 17:23:00 Test Item Value Reference Range Interpretation Comments Neutrophils # (test code = Neutrophils 6.8 1.5-8.1 #) [place] 374792-06-16 17:23:00 Test Item Value Reference Range Interpretation Comments Lymphocytes # (test code = Lymphocytes 1.5 1.0-5.5 #) [place] [address]-06-16 17:23:00 Test Item Value Reference Range Interpretation Comments Monocytes # (test code 0.9 See_Comment [Aut omated message] The = Monocytes #) system which generated this result tra nsmitted reference range : <=0.8. The reference r tony was not used to int erpret this result as normal/abnormal . [place] 374792-06-16 17:23:00 Test Item Value Reference Range Interpretation Comments Eosinophils # (test code 0.3 See_Comment [A utomated message] The = Eosinophils #) system whic h generated this result tra nsmitted reference range : <=0.5. The reference r tony was not used to int erpret this result as normal/abnormal . [id number] 17:23:00 Test Item Value Reference Range Interpretation Comments Basophils # (test code 0.1 See_Comment [Aut omated message] The = Basophils #) system which generated this result tra nsmitted reference range : <=0.2. The reference r tony was not used to int erpret this result as normal/abnormal . [facility]2022-06-16 17:23:00 Test Item Value Reference Range Interpretation Comments Glucose Lvl (test code = Glucose Lvl) 85 70-99 [place] 979312-06-16 17:23:00 Test Item Value Reference Range Interpretation Comments BUN (test code = BUN) 13 7-22 [place] [address]-06-16 17:23:00 Test Item Value Reference Range Interpretation Comments Creatinine Lvl (test code = Creatinine 1.21 0.50-1.40 Lvl) [place] [address]-06-16 17:23:00 Test Item Value Reference Range Interpretation Comments Sodium Lvl (test code = Sodium Lvl) 142 135-145 [place] 979312-06-16 17:23:00 Test Item Value Reference Range Interpretation Comments Potassium Lvl (test code = Potassium 3.8 3.5-5.1 Lvl) [place] 979312-06-16 17:23:00 Test Item Value Reference Range Interpretation Comments Chloride Lvl (test code = Chloride Lvl) 108 95-109 [facility] [id number] 17:23:00 Test Item Value Reference Range Interpretation Comments CO2 (test code = CO2) 29 24-32 [facility] [employer] [id number] 17:23:00 Test Item Value Reference Range Interpretation Comments Calcium Lvl (test code = Calcium Lvl) 8.6 8.5-10.5 [facility] [employer] [id number] 17:23:00 Test Item Value Reference Range Interpretation Comments Total Protein (test code = Total 7.3 6.4-8.4 Protein) [facility] [id number] 17:23:00 Test Item Value Reference Range Interpretation Comments Albumin Lvl (test code = Albumin Lvl) 3.7 3.5-5.0 [facility] [employer] [id number] 17:23:00 Test Item Value Reference Range Interpretation Comments ALT (test code = ALT) 41 See_Comment [Auto mated message] The system which ge nerated this result transmit ezequiel reference range : <=65. The reference range was not used to interpr et this result as grace l/abnormal. [facility] [employer] [id number] 17:23:00 Test Item Value Reference Range Interpretation Comments AST (test code = AST) 18 See_Comment [Auto mated message] The system which ge nerated this result transmit ezequiel reference range : <=37. The reference range was not used to interpr et this result as grace l/abnormal. [facility] [employer] [id number] 17:23:00 Test Item Value Reference Range Interpretation Comments Alk Phos (test code = Alk Phos) 63 39-136 [facility] [employer] [id number] 17:23:00 Test Item Value Reference Range Interpretation Comments Bili Total (test code = Bili Total) 0.4 0.2-1.3 [facility] [employer] [id number] 17:23:00 Test Item Value Reference Range Interpretation Comments AGAP (test code = AGAP) 8.8 10.0-20.0 [facility] [employer] [id number] 17:23:00 Test Item Value Reference Range Interpretation Comments B/C Ratio (test code = B/C Ratio) 11 1 6-25 [facility] [employer] [id number] 17:23:00 Test Item Value Reference Range Interpretation Comments Globulin (test code = Globulin) 3.6 2.7-4.2 [facility] [employer] [id number] 17:23:00 Test Item Value Reference Range Interpretation Comments A/G Ratio (test code = A/G Ratio) 1.0 1 0.7-1.6 [place] 979312-06-16 17:23:00 Test Item Value Reference Range Interpretation Comments eGFR (test code = eGFR) 78 [place] 979312-06-16 17:23:00 Test Item Value Reference Range Interpretation Comments Lactic Acid Lvl (test code = Lactic 1.3 0.5-2.2 Acid Lvl) [place] 979312-06-16 17:23:00 Test Item Value Reference Range Interpretation Comments Procalcitonin Lvl (test no gt See_Comment [Au tomated message] code = Procalcitonin Lvl) e system which generated this result transmitted ref erence range: <=0.10. The reference range was not used to interpr et this result as normal/abnormal . [id number] 17:23:00 Test Item Value Reference Range Interpretation Comments WBC (test code = WBC) 9.5 3.7-10.4 [place] 374792-06-16 17:23:00 Test Item Value Reference Range Interpretation Comments RBC (test code = RBC) 4.66 4.70-6.10 [place] 374792-06-16 17:23:00 Test Item Value Reference Range Interpretation Comments Hgb (test code = Hgb) 14.4 14.0-18.0 [place] 374792-06-16 17:23:00 Test Item Value Reference Range Interpretation Comments Hct (test code = Hct) 42.6 42.0-54.0 [place] [address]-06-16 17:23:00 Test Item Value Reference Range Interpretation Comments MCV (test code = MCV) 91.4 80.0-94.0 [place] 374792-06-16 17:23:00 Test Item Value Reference Range Interpretation Comments MCH (test code = MCH) 30.9 pg 27.0-31.0 [place] [id number] 17:23:00 Test Item Value Reference Range Interpretation Comments MCHC (test code = MCHC) 33.8 32.0-36.0 [place] [address]-06-16 17:23:00 Test Item Value Reference Range Interpretation Comments RDW (test code = RDW) 13.1 11.5-14.5 [place] 374792-06-16 17:23:00 Test Item Value Reference Range Interpretation Comments Platelet (test code = Platelet) 231 133-450 [place] 374792-06-16 17:23:00 Test Item Value Reference Range Interpretation Comments MPV (test code = MPV) 9.8 7.4-10.4 [place] 374792-06-16 17:23:00 Test Item Value Reference Range Interpretation Comments Segs (test code = Segs) 71.2 45.0-75.0 [place] 374792-06-16 17:23:00 Test Item Value Reference Range Interpretation Comments Lymphocytes (test code = Lymphocytes) 15.6 20.0-40.0 [place] 374792-06-16 17:23:00 Test Item Value Reference Range Interpretation Comments Monocytes (test code = Monocytes) 9.0 2.0-12.0 [place] 374792-06-16 17:23:00 Test Item Value Reference Range Interpretation Comments Eosinophils (test code = 3.5 See_Comment [A utomated message] The Eosinophils) system which ge nerated this result tra nsmitted reference range : <=4.0. The reference r tony was not used to int erpret this result as normal/abnormal . [place] 374792-06-16 17:23:00 Test Item Value Reference Range Interpretation Comments Basophils (test code = 0.7 See_Comment [Aut omated message] The Basophils) system which ge nerated this result tra nsmitted reference range : <=1.0. The reference r tony was not used to int erpret this result as normal/abnormal . [place] 374792-06-16 17:23:00 Test Item Value Reference Range Interpretation Comments Neutrophils # (test code = Neutrophils 6.8 1.5-8.1 #) [place] 374792-06-16 17:23:00 Test Item Value Reference Range Interpretation Comments Lymphocytes # (test code = Lymphocytes 1.5 1.0-5.5 #) [place] 374792-06-16 17:23:00 Test Item Value Reference Range Interpretation Comments Monocytes # (test code 0.9 See_Comment [Aut omated message] The = Monocytes #) system which generated this result tra nsmitted reference range : <=0.8. The reference r tony was not used to int erpret this result as normal/abnormal . [id number] 17:23:00 Test Item Value Reference Range Interpretation Comments Eosinophils # (test code 0.3 See_Comment [A utomated message] The = Eosinophils #) system whic h generated this result tra nsmitted reference range : <=0.5. The reference r tony was not used to int erpret this result as normal/abnormal . [id number] 17:23:00 Test Item Value Reference Range Interpretation Comments Basophils # (test code 0.1 See_Comment [Aut omated message] The = Basophils #) system which generated this result tra nsmitted reference range : <=0.2. The reference r tony was not used to int erpret this result as normal/abnormal . [facility] AND [id number] 17:22:00 Test Item Value Reference Range Interpretation Comments UA Color (test code = Yellow *NA*(11/14/21 UA Color) 12:22 PM) [facility] AND [id number] 17:22:00 Test Item Value Reference Range Interpretation Comments UA Turbidity (test code = Clear (11/14/21 12:22 UA Turbidity) PM) [facility] AND [id number] 17:22:00 Test Item Value Reference Range Interpretation Comments UA Spec Grav (test code = UA Spec 1.021 1 Grav) [facility] AND [id number] 17:22:00 Test Item Value Reference Range Interpretation Comments UA pH (test code = UA pH) 6.0 1 5.0-8.0 [facility] AND [id number] 17:22:00 Test Item Value Reference Range Interpretation Comments UA Protein (test code = UA Negative mg/dL Protein) [facility] AND [id number] 17:22:00 Test Item Value Reference Range Interpretation Comments UA Glucose (test code = UA Negative mg/dL Glucose) [facility] AND [id number] 17:22:00 Test Item Value Reference Range Interpretation Comments UA Ketones (test code = UA Negative mg/dL Ketones) [facility] [id number] 17:22:00 Test Item Value Reference Range Interpretation Comments UA Bili (test code = Negative *NA*(11/14/21 UA Bili) 12:22 PM) [facility] [id number] 17:22:00 Test Item Value Reference Range Interpretation Comments UA Blood (test code = Negative (11/14/21 12:22 UA Blood) PM) [facility] [id number] 17:22:00 Test Item Value Reference Range Interpretation Comments UA Nitrite (test code Negative (11/14/21 12:22 = UA Nitrite) PM) [facility] [id number] 17:22:00 Test Item Value Reference Range Interpretation Comments UA Leuk Est (test Negative (11/14/21 12:22 code = UA Leuk Est) PM) [facility] [id number] 17:22:00 Test Item Value Reference Range Interpretation Comments UA WBC (test code = 1 See_Comment [Automa ezequiel message] The UA WBC) system which ge nerated this result transmit ezequiel reference range : <=5. The reference range was not used to interpr et this result as grace l/abnormal. [facility] [id number] 17:22:00 Test Item Value Reference Range Interpretation Comments UA RBC (test code = 1 See_Comment [Automa ezequiel message] The UA RBC) system which ge nerated this result transmit ezequiel reference range : <=2. The reference range was not used to interpr et this result as grace l/abnormal. [facility] [id number] 17:22:00 Test Item Value Reference Range Interpretation Comments UA Mucus (test code = UA Mucus) Few /LPF [facility] [id number] 17:22:00 Test Item Value Reference Range Interpretation Comments UA Sq Epi (test code = UA Sq Epi) None Seen [facility] [id number] 17:22:00 Test Item Value Reference Range Interpretation Comments UA Urobilinogen (test code = UA <=1.0 mg/dL 0.1-1.0 Urobilinogen) [facility] [id number] 17:22:00 Test Item Value Reference Range Interpretation Comments UA Color (test code = Yellow *NA*(11/14/21 UA Color) 12:22 PM) [facility] AND [id number] 17:22:00 Test Item Value Reference Range Interpretation Comments UA Turbidity (test code = Clear (11/14/21 12:22 UA Turbidity) PM) [facility] AND [id number] 17:22:00 Test Item Value Reference Range Interpretation Comments UA Spec Grav (test code = UA Spec 1.021 1 Grav) [facility] AND [id number] 17:22:00 Test Item Value Reference Range Interpretation Comments UA pH (test code = UA pH) 6.0 1 5.0-8.0 [facility] AND [id number] 17:22:00 Test Item Value Reference Range Interpretation Comments UA Protein (test code = UA Negative mg/dL Protein) [facility] AND [id number] 17:22:00 Test Item Value Reference Range Interpretation Comments UA Glucose (test code = UA Negative mg/dL Glucose) [facility] AND [id number] 17:22:00 Test Item Value Reference Range Interpretation Comments UA Ketones (test code = UA Negative mg/dL Ketones) [facility] AND [id number] 17:22:00 Test Item Value Reference Range Interpretation Comments UA Bili (test code = Negative *NA*(11/14/21 UA Bili) 12:22 PM) [facility] AND [id number] 17:22:00 Test Item Value Reference Range Interpretation Comments UA Blood (test code = Negative (11/14/21 12:22 UA Blood) PM) [facility] AND [id number] 17:22:00 Test Item Value Reference Range Interpretation Comments UA Nitrite (test code Negative (11/14/21 12:22 = UA Nitrite) PM) [facility] AND [id number] 17:22:00 Test Item Value Reference Range Interpretation Comments UA Leuk Est (test Negative (11/14/21 12:22 code = UA Leuk Est) PM) [facility] AND [id number] 17:22:00 Test Item Value Reference Range Interpretation Comments UA WBC (test code = 1 See_Comment [Automa ezequiel message] The UA WBC) system which ge nerated this result transmit ezequiel reference range : <=5. The reference range was not used to interpr et this result as grace l/abnormal. [facility] AND [id number] 17:22:00 Test Item Value Reference Range Interpretation Comments UA RBC (test code = 1 See_Comment [Automa ezequiel message] The UA RBC) system which ge nerated this result transmit ezequiel reference range : <=2. The reference range was not used to interpr et this result as grace l/abnormal. [facility] AND [id number] 17:22:00 Test Item Value Reference Range Interpretation Comments UA Mucus (test code = UA Mucus) Few /LPF [facility] AND [id number] 17:22:00 Test Item Value Reference Range Interpretation Comments UA Sq Epi (test code = UA Sq Epi) None Seen [facility] AND [id number] 17:22:00 Test Item Value Reference Range Interpretation Comments UA Urobilinogen (test code = UA <=1.0 mg/dL 0.1-1.0 Urobilinogen) [facility]2022-06-14 17:19:00 Test Item Value Reference Range Interpretation Comments Glucose Lvl (test code = Glucose Lvl) 119 70-99 [facility]2022-06-14 17:19:00 Test Item Value Reference Range Interpretation Comments BUN (test code = BUN) 15 7-22 [facility]2022-06-14 17:19:00 Test Item Value Reference Range Interpretation Comments Creatinine Lvl (test code = Creatinine 1.31 0.50-1.40 Lvl) [facility]2022-06-14 17:19:00 Test Item Value Reference Range Interpretation Comments Sodium Lvl (test code = Sodium Lvl) 138 135-145 [facility]2022-06-14 17:19:00 Test Item Value Reference Range Interpretation Comments Potassium Lvl (test code = Potassium 3.6 3.5-5.1 Lvl) [facility]2022-06-14 17:19:00 Test Item Value Reference Range Interpretation Comments Chloride Lvl (test code = Chloride Lvl) 105 95-109 [facility]2022-06-14 17:19:00 Test Item Value Reference Range Interpretation Comments CO2 (test code = CO2) 27 24-32 [facility] [employer] [id number] 17:19:00 Test Item Value Reference Range Interpretation Comments Calcium Lvl (test code = Calcium Lvl) 8.9 8.5-10.5 [facility]icGR[id number] 17:19:00 Test Item Value Reference Range Interpretation Comments Total Protein (test code = Total 7.7 6.4-8.4 Protein) [facility] [employer] [id number] 17:19:00 Test Item Value Reference Range Interpretation Comments Albumin Lvl (test code = Albumin Lvl) 3.9 3.5-5.0 [facility] [employer] [id number] 17:19:00 Test Item Value Reference Range Interpretation Comments ALT (test code = ALT) 40 See_Comment [Auto mated message] The system which ge nerated this result transmit ezequiel reference range : <=65. The reference range was not used to interpr et this result as grace l/abnormal. [facility] [employer] [id number] 17:19:00 Test Item Value Reference Range Interpretation Comments AST (test code = AST) 19 See_Comment [Auto mated message] The system which ge nerated this result transmit ezequiel reference range : <=37. The reference range was not used to interpr et this result as grace l/abnormal. [facility] [employer] [id number] 17:19:00 Test Item Value Reference Range Interpretation Comments Alk Phos (test code = Alk Phos) 68 39-136 [facility] [employer] [id number] 17:19:00 Test Item Value Reference Range Interpretation Comments Bili Total (test code = Bili Total) 0.6 0.2-1.3 [facility] [employer] [id number] 17:19:00 Test Item Value Reference Range Interpretation Comments AGAP (test code = AGAP) 9.6 10.0-20.0 [facility] [employer] [id number] 17:19:00 Test Item Value Reference Range Interpretation Comments B/C Ratio (test code = B/C Ratio) 11 1 6-25 [facility] [employer] [id number] 17:19:00 Test Item Value Reference Range Interpretation Comments Globulin (test code = Globulin) 3.8 2.7-4.2 [facility]2022-06-14 17:19:00 Test Item Value Reference Range Interpretation Comments A/G Ratio (test code = A/G Ratio) 1.0 1 0.7-1.6 [facility]2022-06-14 17:19:00 Test Item Value Reference Range Interpretation Comments eGFR (test code = eGFR) 71 [facility]2022-06-14 17:19:00 Test Item Value Reference Range Interpretation Comments Lipase Lvl (test code = Lipase Lvl) 78 73-393 [id number] 17:19:00 Test Item Value Reference Range Interpretation Comments WBC (test code = WBC) 11.3 3.7-10.4 [id number] 17:19:00 Test Item Value Reference Range Interpretation Comments RBC (test code = RBC) 4.97 4.70-6.10 [facility]OuczasbXFRAXGOKRR4436-71-14 17:19:00 Test Item Value Reference Range Interpretation Comments Hgb (test code = Hgb) 15.6 14.0-18.0 [facility]LrxsauzEBTVCOWNTJ7420-28-37 17:19:00 Test Item Value Reference Range Interpretation Comments Hct (test code = Hct) 45.2 42.0-54.0 [facility]LznujvsTPEZECBFPX0908-72-84 17:19:00 Test Item Value Reference Range Interpretation Comments MCV (test code = MCV) 90.9 80.0-94.0 [facility]SkdpymfHZPNWYBGEN5410-99-08 17:19:00 Test Item Value Reference Range Interpretation Comments MCH (test code = MCH) 31.3 pg 27.0-31.0 [facility]JufajrkODQFQFPSSB2749-05-36 17:19:00 Test Item Value Reference Range Interpretation Comments MCHC (test code = MCHC) 34.4 32.0-36.0 [facility]DpjkgkgGPDBPHRCNU3681-10-86 17:19:00 Test Item Value Reference Range Interpretation Comments RDW (test code = RDW) 12.7 11.5-14.5 [id number] 17:19:00 Test Item Value Reference Range Interpretation Comments Platelet (test code = Platelet) 209 133-450 [facility]JrfybgtRMDBUHVKLK5191-00-03 17:19:00 Test Item Value Reference Range Interpretation Comments MPV (test code = MPV) 10.2 7.4-10.4 [place] [address]-06-14 17:19:00 Test Item Value Reference Range Interpretation Comments Segs (test code = Segs) 59.2 45.0-75.0 [place] 374792-06-14 17:19:00 Test Item Value Reference Range Interpretation Comments Lymphocytes (test code = Lymphocytes) 21.5 20.0-40.0 [place] 374792-06-14 17:19:00 Test Item Value Reference Range Interpretation Comments Monocytes (test code = Monocytes) 11.7 2.0-12.0 [facility]EoidrcgOOVKVDWFIS5203-93-33 17:19:00 Test Item Value Reference Range Interpretation Comments Eosinophils (test code = 6.5 See_Comment [A utomated message] The Eosinophils) system which ge nerated this result tra nsmitted reference range : <=4.0. The reference r tony was not used to int erpret this result as normal/abnormal . [id number] 17:19:00 Test Item Value Reference Range Interpretation Comments Basophils (test code = 1.1 See_Comment [Aut omated message] The Basophils) system which ge nerated this result tra nsmitted reference range : <=1.0. The reference r tnoy was not used to int erpret this result as normal/abnormal . [facility]TcmffbaVIVIXXSFDA3605-49-61 17:19:00 Test Item Value Reference Range Interpretation Comments Neutrophils # (test code = Neutrophils 6.7 1.5-8.1 #) [facility]RebqfnjLBBVWWCCPK0311-71-90 17:19:00 Test Item Value Reference Range Interpretation Comments Lymphocytes # (test code = Lymphocytes 2.4 1.0-5.5 #) [place] 374792-06-14 17:19:00 Test Item Value Reference Range Interpretation Comments Monocytes # (test code 1.3 See_Comment [Aut omated message] The = Monocytes #) system which generated this result tra nsmitted reference range : <=0.8. The reference r tony was not used to int erpret this result as normal/abnormal . [place] 374792-06-14 17:19:00 Test Item Value Reference Range Interpretation Comments Eosinophils # (test code 0.7 See_Comment [A utomated message] The = Eosinophils #) system whic h generated this result tra nsmitted reference range : <=0.5. The reference r tony was not used to int erpret this result as normal/abnormal . [id number] 17:19:00 Test Item Value Reference Range Interpretation Comments Basophils # (test code 0.1 See_Comment [Aut omated message] The = Basophils #) system which generated this result tra nsmitted reference range : <=0.2. The reference r tony was not used to int erpret this result as normal/abnormal . [place] [id number] 17:19:00 Test Item Value Reference Range Interpretation Comments Grp A Strep Scr (test Negative (11/14/21 12:19 code = Grp A Strep PM) Scr) [facility]2022-06-14 17:19:00 Test Item Value Reference Range Interpretation Comments Glucose Lvl (test code = Glucose Lvl) 119 70-99 [facility]2022-06-14 17:19:00 Test Item Value Reference Range Interpretation Comments BUN (test code = BUN) 15 22 [facility]2022-06-14 17:19:00 Test Item Value Reference Range Interpretation Comments Creatinine Lvl (test code = Creatinine 1.31 0.50-1.40 Lvl) [facility]2022-06-14 17:19:00 Test Item Value Reference Range Interpretation Comments Sodium Lvl (test code = Sodium Lvl) 138 135-145 [facility]2022-06-14 17:19:00 Test Item Value Reference Range Interpretation Comments Potassium Lvl (test code = Potassium 3.6 3.5-5.1 Lvl) [facility]2022-06-14 17:19:00 Test Item Value Reference Range Interpretation Comments Chloride Lvl (test code = Chloride Lvl) 105 95-109 [facility]2022-06-14 17:19:00 Test Item Value Reference Range Interpretation Comments CO2 (test code = CO2) 27 24-32 [facility]2022-06-14 17:19:00 Test Item Value Reference Range Interpretation Comments Calcium Lvl (test code = Calcium Lvl) 8.9 8.5-10.5 [place] 979312-06-14 17:19:00 Test Item Value Reference Range Interpretation Comments Total Protein (test code = Total 7.7 6.4-8.4 Protein) [place] 979312-06-14 17:19:00 Test Item Value Reference Range Interpretation Comments Albumin Lvl (test code = Albumin Lvl) 3.9 3.5-5.0 [place] 979312-06-14 17:19:00 Test Item Value Reference Range Interpretation Comments ALT (test code = ALT) 40 See_Comment [Auto mated message] The system which ge nerated this result transmit ezequiel reference range : <=65. The reference range was not used to interpr et this result as grace l/abnormal. [facility] [id number] 17:19:00 Test Item Value Reference Range Interpretation Comments AST (test code = AST) 19 See_Comment [Auto mated message] The system which ge nerated this result transmit ezequiel reference range : <=37. The reference range was not used to interpr et this result as grace l/abnormal. [facility] [id number] 17:19:00 Test Item Value Reference Range Interpretation Comments Alk Phos (test code = Alk Phos) 68 39-136 [facility] [employer] [id number] 17:19:00 Test Item Value Reference Range Interpretation Comments Bili Total (test code = Bili Total) 0.6 0.2-1.3 [place] 979312-06-14 17:19:00 Test Item Value Reference Range Interpretation Comments AGAP (test code = AGAP) 9.6 10.0-20.0 [facility] [employer] [id number] 17:19:00 Test Item Value Reference Range Interpretation Comments B/C Ratio (test code = B/C Ratio) 11 1 6-25 [facility] [employer] [id number] 17:19:00 Test Item Value Reference Range Interpretation Comments Globulin (test code = Globulin) 3.8 2.7-4.2 [facility] [id number] 17:19:00 Test Item Value Reference Range Interpretation Comments A/G Ratio (test code = A/G Ratio) 1.0 1 0.7-1.6 [facility] [employer] [id number] 17:19:00 Test Item Value Reference Range Interpretation Comments eGFR (test code = eGFR) 71 [facility] [id number] 17:19:00 Test Item Value Reference Range Interpretation Comments Lipase Lvl (test code = Lipase Lvl) 78 73-393 [facility]NalpxsdOBYMMHYCHE9730-49-93 17:19:00 Test Item Value Reference Range Interpretation Comments WBC (test code = WBC) 11.3 3.7-10.4 [facility]FgzywtbPOAKUMNVRB1562-47-79 17:19:00 Test Item Value Reference Range Interpretation Comments RBC (test code = RBC) 4.97 4.70-6.10 [facility]NphjavzKONEAEOBDO1711-25-81 17:19:00 Test Item Value Reference Range Interpretation Comments Hgb (test code = Hgb) 15.6 14.0-18.0 [facility]KcvvpfrYAMWSGXBID3721-84-03 17:19:00 Test Item Value Reference Range Interpretation Comments Hct (test code = Hct) 45.2 42.0-54.0 [facility]SvihchcVHJEQLAHOH7189-99-05 17:19:00 Test Item Value Reference Range Interpretation Comments MCV (test code = MCV) 90.9 80.0-94.0 [facility]TlivudeOZDAMUZOTG5237-53-35 17:19:00 Test Item Value Reference Range Interpretation Comments MCH (test code = MCH) 31.3 pg 27.0-31.0 [facility]DekuofpEQKZKXFWUX6605-79-80 17:19:00 Test Item Value Reference Range Interpretation Comments MCHC (test code = MCHC) 34.4 32.0-36.0 [facility]TvuytaeGOUSGZEKEF7786-74-42 17:19:00 Test Item Value Reference Range Interpretation Comments RDW (test code = RDW) 12.7 11.5-14.5 [facility]HcsbqhfLHBCXDVYKL0614-57-50 17:19:00 Test Item Value Reference Range Interpretation Comments Platelet (test code = Platelet) 209 133-450 [facility]XsjsgdzQIOIXFJFVL3346-26-76 17:19:00 Test Item Value Reference Range Interpretation Comments MPV (test code = MPV) 10.2 7.4-10.4 [facility]LzkckuaUILZQFONJG3772-20-19 17:19:00 Test Item Value Reference Range Interpretation Comments Segs (test code = Segs) 59.2 45.0-75.0 [place] [address]-06-14 17:19:00 Test Item Value Reference Range Interpretation Comments Lymphocytes (test code = Lymphocytes) 21.5 20.0-40.0 [place] 374792-06-14 17:19:00 Test Item Value Reference Range Interpretation Comments Monocytes (test code = Monocytes) 11.7 2.0-12.0 [facility]DezcqddISNIMUICEU0078-74-43 17:19:00 Test Item Value Reference Range Interpretation Comments Eosinophils (test code = 6.5 See_Comment [A utomated message] The Eosinophils) system which ge nerated this result tra nsmitted reference range : <=4.0. The reference r tony was not used to int erpret this result as normal/abnormal . [facility]VwqqigwWYFCOVISQG8500-64-42 17:19:00 Test Item Value Reference Range Interpretation Comments Basophils (test code = 1.1 See_Comment [Aut omated message] The Basophils) system which ge nerated this result tra nsmitted reference range : <=1.0. The reference r tony was not used to int erpret this result as normal/abnormal . [facility]VcznrhpITKDIXKWFA4234-94-80 17:19:00 Test Item Value Reference Range Interpretation Comments Neutrophils # (test code = Neutrophils 6.7 1.5-8.1 #) [facility]WnsmroiVXJPWGMNXX4324-98-33 17:19:00 Test Item Value Reference Range Interpretation Comments Lymphocytes # (test code = Lymphocytes 2.4 1.0-5.5 #) [facility]CuibxueBZWHFTJJJT9380-34-25 17:19:00 Test Item Value Reference Range Interpretation Comments Monocytes # (test code 1.3 See_Comment [Aut omated message] The = Monocytes #) system which generated this result tra nsmitted reference range : <=0.8. The reference r tony was not used to int erpret this result as normal/abnormal . [facility]MnnsadrECNHUVGJIB5860-85-28 17:19:00 Test Item Value Reference Range Interpretation Comments Eosinophils # (test code 0.7 See_Comment [A utomated message] The = Eosinophils #) system whic h generated this result tra nsmitted reference range : <=0.5. The reference r tony was not used to int erpret this result as normal/abnormal . [facility]JxmliyzJCSZFHLBRO5692-42-55 17:19:00 Test Item Value Reference Range Interpretation Comments Basophils # (test code 0.1 See_Comment [Aut omated message] The = Basophils #) system which generated this result tra nsmitted reference range : <=0.2. The reference r tony was not used to int erpret this result as normal/abnormal . [facility] [id number] 17:19:00 Test Item Value Reference Range Interpretation Comments Grp A Strep Scr (test Negative (11/14/21 12:19 code = Grp A Strep PM) Scr) [facility] STREP GROUP [id number] 13:33:00 Test Item Value Reference Range Interpretation [...] the FDA and the [employer] [place] (CAP) are more stringent than those required for this test. Therefore, the result should be interpreted with caution and close attention to other clinical and epidemiological data [id number] 07:38:00 Test Item Value Reference Range Interpretation [...] code = LEUK) NEGATIVE NEGATIVE BRAIN NATRIURETIC [id number] 06:26:00 Test Item Value Reference Range Interpretation Comments proBNP (test code = PBNP) 20 pg/mL 0-125 AMYLASE AND [id number] 06:24:00 Test Item Value Reference Range Interpretation Comments AMYLASE (test code = 10A) 55 U/L 28-100 LIPASE (test code = 60A) 221 IU/L 73-393 [id number] 06:24:00 Test Item Value Reference Range Interpretation Comments CPK (test code = 32A) 100 IU/L 39-308 COMPREHENSIVE METABOLIC [id number] 06:24:00 Test Item Value Reference Range Interpretation [...] code = 31A) 59 IU/L <=78 LDH-LACTIC XWVFSWETJWDLY5661-27-11 06:23:00 Test Item Value Reference Range Interpretation Comments LDH (test code = 33A) 195 IU/L 100-190 H [id number] 06:23:00 Test Item Value Reference Range Interpretation Comments FERRITIN (test code = A19) 122.3 ng/mL 26.0-388.0 TROPONIN [id number] 06:21:00 Test Item Value Reference Range Interpretation Comments TROPONIN I (test code = A84) <0.015 ng/mL 0.000-0.045 [id number] 06:18:00 Test Item Value Reference Range Interpretation Comments MAGNESIUM (test code = 48A) 2.2 mg/dL 1.8-2.4 C-REACTIVE PROTEIN [id number] 06:17:00 Test Item Value Reference Range Interpretation Comments CRP QUANT (test code <2.9 mg/L 0.0-2.9 = CRPQ) Method Change (test Please note the code = METHOD) change in Method and the reference range DIRECT INFLUENZA A AND B [id number] 06:16:00 Test Item Value Reference Range Interpretation Comments Direct Exam (test PRESUMPTIVE NEGATIVE FOR code = DE1) THE PRESENCE OF INFLUENZA ANTIGEN PRO TIME AND [id number] 06:12:00 Test Item Value Reference Range Interpretation [...] or LMW Heparin. Order Code is ANTI-XA [id number] 06:12:00 Test Item Value Reference Range Interpretation Comments D-DIMER (test code = <200 ng/mL D-DU 0-234 DDI) D-DIMER COMMENT (test *Level to rule out code = DDCOM) DVT or PE: <235 ng/mL D-DU* Venous Blood [id number] 06:03:00 Test Item Value Reference Range Interpretation Comments VpH (test code = 7.383 7.300-7.400 VPHRT) VpCO2 (test code = 46.0 mmHg 40.0-50.0 YWNH4CG) VpO2 (test code = 55.5 mmHg 30.0-40.0 H VPO2RT) HCO3? (test code = 26.8 mmol/L 22.0-26.0 H HCO3) RADHA (test code = RADHA) 1.7 mmol/L -3.0-3.0 tHb (test code = 15.1 g/dL 14.0-18.0 THBRT) vsO2 (test code = 90.7 % 55.0-75.0 H VSO2RT) FO2Hb (test code = 86.2 % WL8RBNVX) FCOHb (test code = 3.5 % FCOHBRTV) FMetHb (test code = 1.4 % FMETHBRTV) ABGTEMP (test code = * Temp Corrected Values* ABGTEMP) ABGTEMP (test code = 37.0 ?C ABGTEMP.) pH (T) (test code = 7.383 7.300-7.400 PHTEMPV) pCO2 (T) (test code = 46.0 mmHg 40.0-50.0 MEL7FSPCF) pO2 (T) (test code = 55.5 mmHg 30.0-40.0 H PH8GWOFN) Device (test code = ROOM AIR DEVICE) [...] (test code = RBCMOR) NORMAL COVID-19 qualitative [id number] 05:07:48 Test Item Value Reference Range Interpretation Comments Interpretation (test Negative results do code = 7136325) not preclude 2019-nCoV infection and should not be used as the sole basis for treatment or other patient management decisions. Negative results must be combined with clinical observations, patient history, and epidemiological information. COVID-19 qualitative Not-Detected Not-Detected RT-PCR result (test code = 79190-2) COVID-19 qualitative See link below for C ase Number: RT-PCR (test code = PDF Lab Report [id number]) [facility]vbkqfWVKHKQNYPZWT7882-49-12 20:23:00 Test Item Value Reference Range Interpretation Comments AGAP (test code = AGAP) 9.8 10.0-20.0 [facility] HospitalIlxsetwXNLHQWFIUEKI4436-19-42 20:23:00 Test Item Value Reference Range Interpretation Comments Globulin (test code = Globulin) 2.9 2.7-4.2 [facility] HospitalBltxfwkKGSMWFJCISWW4570-07-58 20:23:00 Test Item Value Reference Range Interpretation Comments A/G Ratio (test code = A/G Ratio) 1.3 1 0.7-1.6 [facility] HospitalEqonvqjXYRDNMIPCKWS8757-76-46 20:23:00 Test Item Value Reference Range Interpretation Comments B/C Ratio (test code = B/C Ratio) 12 1 6-25 [facility] HospitalZxbaqjjKNBIWVFFEWQJ8663-38-12 20:23:00 Test Item Value Reference Range Interpretation Comments eGFR (test code = eGFR) 101 [facility] HospitalNeikpngZXTYQJNOMVCT7232-06-48 20:23:00 Test Item Value Reference Range Interpretation Comments Bili Total (test code = Bili Total) 0.5 0.2-1.3 [facility] HospitalOqkegjyOLFGCYEANSGF0147-80-60 20:23:00 Test Item Value Reference Range Interpretation Comments Alk Phos (test code = Alk Phos) 54 39-136 [facility] HospitalXuxtnulGQDMSFGQNNBT4492-40-63 20:23:00 Test Item Value Reference Range Interpretation Comments Total Protein (test code = Total 6.7 6.4-8.4 Protein) [facility] HospitalBtqshyoHTEMRZBMIWTF9564-41-01 20:23:00 Test Item Value Reference Range Interpretation Comments Albumin Lvl (test code = Albumin Lvl) 3.8 3.5-5.0 [facility] HospitalXoscscsJZZEAENLPECL3433-33-94 20:23:00 Test Item Value Reference Range Interpretation Comments Calcium Lvl (test code = Calcium Lvl) 8.2 8.5-10.5 [facility] HospitalOjkbftzVICFALIGHIAY8519-10-39 20:23:00 Test Item Value Reference Range Interpretation Comments ALT (test code = ALT) 20 See_Comment [Auto mated message] The system which ge nerated this result transmit ezequiel reference range : <=65. The reference range was not used to interpr et this result as grace l/abnormal. [facility] HospitalUxgpzonWKVGTVXETKVU7399-44-41 20:23:00 Test Item Value Reference Range Interpretation Comments AST (test code = AST) 30 See_Comment [Auto mated message] The system which ge nerated this result transmit ezequiel reference range : <=37. The reference range was not used to interpr et this result as grace l/abnormal. [facility] HospitalGnhyqrlSQULJPTGLTHT9921-60-00 20:23:00 Test Item Value Reference Range Interpretation Comments Sodium Lvl (test code = Sodium Lvl) 142 135-145 [facility] HospitalQqbyzciTVXGYZNSNBOI6399-42-35 20:23:00 Test Item Value Reference Range Interpretation Comments Potassium Lvl (test code = Potassium 4.8 3.5-5.1 Lvl) [facility] HospitalJuqprjrEBPEHWZUBJHL0734-58-01 20:23:00 Test Item Value Reference Range Interpretation Comments Creatinine Lvl (test code = Creatinine 1.00 0.50-1.40 Lvl) [facility] HospitalFvtoqjcXCZKGVYRGXMW7356-77-13 20:23:00 Test Item Value Reference Range Interpretation Comments Chloride Lvl (test code = Chloride Lvl) 111 95-109 [facility] HospitalRchdbudZUIIHCNFZBPP8027-89-48 20:23:00 Test Item Value Reference Range Interpretation Comments CO2 (test code = CO2) 26 24-32 [facility] HospitalSuolurgSUAHMDQGBYIM3992-99-05 20:23:00 Test Item Value Reference Range Interpretation Comments Glucose Lvl (test code = Glucose Lvl) 93 70-99 [facility] HospitalHeetjvpUYWDEPANPTDE9402-52-05 20:23:00 Test Item Value Reference Range Interpretation Comments BUN (test code = BUN) 12 7-22 [facility]gnxipUCXGKRJFZU4908-46-39 20:23:00 Test Item Value Reference Range Interpretation Comments Basophils # (test code 0.1 See_Comment [Aut omated message] The = Basophils #) system which generated this result tra nsmitted reference range : <=0.2. The reference r tony was not used to int erpret this result as normal/abnormal . [facility]LiqmlrrLAJJXZZFXM6744-57-59 20:23:00 Test Item Value Reference Range Interpretation Comments Eosinophils # (test code 0.1 See_Comment [A utomated message] The = Eosinophils #) system whic h generated this result tra nsmitted reference range : <=0.5. The reference r tony was not used to int erpret this result as normal/abnormal . [facility]MxigfkcOLOBQLYJZH8694-22-68 20:23:00 Test Item Value Reference Range Interpretation Comments Lymphocytes (test code = Lymphocytes) 16.2 20.0-40.0 [facility]QlmkaspBSLGQMILPI5480-23-45 20:23:00 Test Item Value Reference Range Interpretation Comments Monocytes (test code = Monocytes) 4.7 2.0-12.0 [facility]NawhcvfVPRCYMZIXX6269-05-86 20:23:00 Test Item Value Reference Range Interpretation Comments Neutrophils # (test code = Neutrophils 9.7 1.5-8.1 #) [facility]ZqmfqkmATKEGBHWYK6177-19-10 20:23:00 Test Item Value Reference Range Interpretation Comments Eosinophils (test code = 0.7 See_Comment [A utomated message] The Eosinophils) system which ge nerated this result tra nsmitted reference range : <=4.0. The reference r tony was not used to int erpret this result as normal/abnormal . [facility]KjrqaaiTPRBOXAGXB5645-66-40 20:23:00 Test Item Value Reference Range Interpretation Comments Basophils (test code = 0.6 See_Comment [Aut omated message] The Basophils) system which ge nerated this result tra nsmitted reference range : <=1.0. The reference r tony was not used to int erpret this result as normal/abnormal . [facility]KyzmdkhDYVEVJOAXT0642-12-90 20:23:00 Test Item Value Reference Range Interpretation Comments Segs (test code = Segs) 77.8 45.0-75.0 [facility]TqujuuoYEWBGUIVFK2934-42-78 20:23:00 Test Item Value Reference Range Interpretation Comments Monocytes # (test code 0.6 See_Comment [Aut omated message] The = Monocytes #) system which generated this result tra nsmitted reference range : <=0.8. The reference r tony was not used to int erpret this result as normal/abnormal . [facility]AnahxksXTTLLNQEZD0334-98-04 20:23:00 Test Item Value Reference Range Interpretation Comments Lymphocytes # (test code = Lymphocytes 2.0 1.0-5.5 #) [facility]JjrnqvjFBZXXUFMLH8111-48-34 20:23:00 Test Item Value Reference Range Interpretation Comments RDW (test code = RDW) 13.2 11.5-14.5 [facility]YgjpqroKXUBHINUWN8707-26-51 20:23:00 Test Item Value Reference Range Interpretation Comments MCV (test code = MCV) 94.1 80.0-94.0 [facility]PysrrxnXAGZJIUUIM4761-46-19 20:23:00 Test Item Value Reference Range Interpretation Comments MCHC (test code = MCHC) 32.7 32.0-36.0 [facility]KrooycnQTGYZNBLRH6956-62-82 20:23:00 Test Item Value Reference Range Interpretation Comments MCH (test code = MCH) 30.7 pg 27.0-31.0 [facility]NrcefemWMGQZBFHLN8915-36-28 20:23:00 Test Item Value Reference Range Interpretation Comments Platelet (test code = Platelet) 199 133-450 [facility]TfcvenoWTOEKWDEQJ9586-11-81 20:23:00 Test Item Value Reference Range Interpretation Comments MPV (test code = MPV) 10.0 7.4-10.4 [facility]FkmvwhwIXZBCXTDDD8547-07-51 20:23:00 Test Item Value Reference Range Interpretation Comments Hgb (test code = Hgb) 13.3 14.0-18.0 [facility]KggethiSIMFMRVZUB2201-58-91 20:23:00 Test Item Value Reference Range Interpretation Comments RBC (test code = RBC) 4.31 4.70-6.10 [facility]DdxjaqsMTVRVECSAZ9231-33-49 20:23:00 Test Item Value Reference Range Interpretation Comments Hct (test code = Hct) 40.6 42.0-54.0 [facility]GdrrhyuQUFKJSFEQD6574-54-84 20:23:00 Test Item Value Reference Range Interpretation Comments WBC (test code = WBC) 12.4 3.7-10.4 [facility]RnwrszqJLOQLUUXOG8147-65-12 20:23:00 Test Item Value Reference Range Interpretation Comments INR (test code = INR) 1.10 1 0.85-1.17 [facility]JwfggqdSPICUMPGJB6177-82-71 20:23:00 Test Item Value Reference Range Interpretation Comments PT (test code = PT) 14.2 s 12.0-14.7 [facility]KfuebvqYXLAQBXGZA9536-06-06 20:23:00 Test Item Value Reference Range Interpretation Comments PTT (test code = PTT) 26.1 s 22.9-35.8 [place] [id number] 20:23:00 Test Item Value Reference Range Interpretation Comments Ethanol Lvl (test code = Ethanol Lvl) no gt [place] [id number] 20:23:00 Test Item Value Reference Range Interpretation Comments Etoh (%) (test code = Etoh (%)) no gt [facility] HospitalMuboljzJZRRONEMJCWF4181-65-10 20:23:00 Test Item Value Reference Range Interpretation Comments AGAP (test code = AGAP) 9.8 10.0-20.0 [facility] HospitalDbvwtgfPDSXVBMHSWYB7409-40-71 20:23:00 Test Item Value Reference Range Interpretation Comments Globulin (test code = Globulin) 2.9 2.7-4.2 [facility] HospitalSizwoasUGASKDTHXHPK0027-00-92 20:23:00 Test Item Value Reference Range Interpretation Comments A/G Ratio (test code = A/G Ratio) 1.3 1 0.7-1.6 [facility] HospitalLdfxabkUQEAYMQEFNUS9762-82-53 20:23:00 Test Item Value Reference Range Interpretation Comments B/C Ratio (test code = B/C Ratio) 12 1 6-25 [facility] HospitalVvptbdwJXGFVWQKUMHF5677-21-71 20:23:00 Test Item Value Reference Range Interpretation Comments eGFR (test code = eGFR) 101 [facility] HospitalZjbpdbfYDMCUYHZSANW9354-83-40 20:23:00 Test Item Value Reference Range Interpretation Comments Bili Total (test code = Bili Total) 0.5 0.2-1.3 [facility] HospitalKfwueucJOPAEVZWNAIR3074-84-01 20:23:00 Test Item Value Reference Range Interpretation Comments Alk Phos (test code = Alk Phos) 54 39-136 [facility] HospitalIgzvaaiGTRCMVLVDQZK5266-78-42 20:23:00 Test Item Value Reference Range Interpretation Comments Total Protein (test code = Total 6.7 6.4-8.4 Protein) [facility] HospitalCzbykkoQVDGWPYGWTWR7398-67-71 20:23:00 Test Item Value Reference Range Interpretation Comments Albumin Lvl (test code = Albumin Lvl) 3.8 3.5-5.0 [facility] HospitalZlrxfwnTVSEOHSPYAUZ6301-49-46 20:23:00 Test Item Value Reference Range Interpretation Comments Calcium Lvl (test code = Calcium Lvl) 8.2 8.5-10.5 [facility] HospitalIympaqrGEGFHIVCMQAP1496-07-52 20:23:00 Test Item Value Reference Range Interpretation Comments ALT (test code = ALT) 20 See_Comment [Auto mated message] The system which ge nerated this result transmit ezequiel reference range : <=65. The reference range was not used to interpr et this result as grace l/abnormal. [facility] HospitalNgyegdzAGRLUWMCXZCL5275-62-59 20:23:00 Test Item Value Reference Range Interpretation Comments AST (test code = AST) 30 See_Comment [Auto mated message] The system which ge nerated this result transmit ezequiel reference range : <=37. The reference range was not used to interpr et this result as grace l/abnormal. [facility] HospitalKggqsfcDNSURSDAJLSK7765-75-19 20:23:00 Test Item Value Reference Range Interpretation Comments Sodium Lvl (test code = Sodium Lvl) 142 135-145 [facility] HospitalDchrfasBITWXHNRWDVX2786-76-13 20:23:00 Test Item Value Reference Range Interpretation Comments Potassium Lvl (test code = Potassium 4.8 3.5-5.1 Lvl) [facility] HospitalAthwalxVMPNZSSFSIAT1698-16-56 20:23:00 Test Item Value Reference Range Interpretation Comments Creatinine Lvl (test code = Creatinine 1.00 0.50-1.40 Lvl) [facility] HospitalTsnxcaqEKBZRHAZYAKR3407-23-35 20:23:00 Test Item Value Reference Range Interpretation Comments Chloride Lvl (test code = Chloride Lvl) 111 95-109 [facility] HospitalKtxskjpLBOQGKZKAJDW3903-95-43 20:23:00 Test Item Value Reference Range Interpretation Comments CO2 (test code = CO2) 26 24-32 [facility] HospitalBqufqzkWWMRXNYURRSV0478-68-99 20:23:00 Test Item Value Reference Range Interpretation Comments Glucose Lvl (test code = Glucose Lvl) 93 70-99 [facility] HospitalTqmvrfhBABSYMKUYTJB4575-65-44 20:23:00 Test Item Value Reference Range Interpretation Comments BUN (test code = BUN) 12 7-22 [facility]XxgnskaJBGKQVWFMQ7765-26-12 20:23:00 Test Item Value Reference Range Interpretation Comments Basophils # (test code 0.1 See_Comment [Aut omated message] The = Basophils #) system which generated this result tra nsmitted reference range : <=0.2. The reference r tony was not used to int erpret this result as normal/abnormal . [facility]NlqqyvlOOGWTQZAWU8695-53-15 20:23:00 Test Item Value Reference Range Interpretation Comments Eosinophils # (test code 0.1 See_Comment [A utomated message] The = Eosinophils #) system whic h generated this result tra nsmitted reference range : <=0.5. The reference r tony was not used to int erpret this result as normal/abnormal . [facility]DyqvedsHSBKRFFVDW1747-67-59 20:23:00 Test Item Value Reference Range Interpretation Comments Lymphocytes (test code = Lymphocytes) 16.2 20.0-40.0 [facility]HcyesreZHAVLKJXSG1136-78-27 20:23:00 Test Item Value Reference Range Interpretation Comments Monocytes (test code = Monocytes) 4.7 2.0-12.0 [facility]CfbwxorMJZFHECOBY0490-16-55 20:23:00 Test Item Value Reference Range Interpretation Comments Neutrophils # (test code = Neutrophils 9.7 1.5-8.1 #) [facility]ZftaqzkGOHXYANUZJ7028-91-95 20:23:00 Test Item Value Reference Range Interpretation Comments Eosinophils (test code = 0.7 See_Comment [A utomated message] The Eosinophils) system which ge nerated this result tra nsmitted reference range : <=4.0. The reference r tony was not used to int erpret this result as normal/abnormal . [facility]RzrhpmpKJNSDHDVMP8863-77-56 20:23:00 Test Item Value Reference Range Interpretation Comments Basophils (test code = 0.6 See_Comment [Aut omated message] The Basophils) system which ge nerated this result tra nsmitted reference range : <=1.0. The reference r tony was not used to int erpret this result as normal/abnormal . [facility]GcyhgzdCKHKZRVEBO6596-18-24 20:23:00 Test Item Value Reference Range Interpretation Comments Segs (test code = Segs) 77.8 45.0-75.0 [facility]OvmbbvxMEDYTPTQTC7752-89-63 20:23:00 Test Item Value Reference Range Interpretation Comments Monocytes # (test code 0.6 See_Comment [Aut omated message] The = Monocytes #) system which generated this result tra nsmitted reference range : <=0.8. The reference r tony was not used to int erpret this result as normal/abnormal . [facility]NkqvkkyZAZUNELUKH7461-78-64 20:23:00 Test Item Value Reference Range Interpretation Comments Lymphocytes # (test code = Lymphocytes 2.0 1.0-5.5 #) [facility]NqigwyhNFIMBJVMIA5788-67-20 20:23:00 Test Item Value Reference Range Interpretation Comments RDW (test code = RDW) 13.2 11.5-14.5 [facility]JedqgetAMMJWCFEBN3632-75-37 20:23:00 Test Item Value Reference Range Interpretation Comments MCV (test code = MCV) 94.1 80.0-94.0 [facility]FnwdbsdUZTYBKAWZM5636-43-51 20:23:00 Test Item Value Reference Range Interpretation Comments MCHC (test code = MCHC) 32.7 32.0-36.0 [facility]UvmedrpPLOURBKVLJ1432-18-49 20:23:00 Test Item Value Reference Range Interpretation Comments MCH (test code = MCH) 30.7 pg 27.0-31.0 [facility]UnuqpmbVKRWVZTFER0616-53-42 20:23:00 Test Item Value Reference Range Interpretation Comments Platelet (test code = Platelet) 199 133-450 [facility]FnknnysGILUENLXJW1344-96-14 20:23:00 Test Item Value Reference Range Interpretation Comments MPV (test code = MPV) 10.0 7.4-10.4 [facility]HwfddilRZSUZVTERM9706-80-86 20:23:00 Test Item Value Reference Range Interpretation Comments Hgb (test code = Hgb) 13.3 14.0-18.0 [facility]PkvnyyqJCMWDIDZYY7350-97-97 20:23:00 Test Item Value Reference Range Interpretation Comments RBC (test code = RBC) 4.31 4.70-6.10 [facility]XcoitwyGLKDAAYSVZ9831-83-46 20:23:00 Test Item Value Reference Range Interpretation Comments Hct (test code = Hct) 40.6 42.0-54.0 [facility]KucisprDETUOCIALV9508-33-80 20:23:00 Test Item Value Reference Range Interpretation Comments WBC (test code = WBC) 12.4 3.7-10.4 [facility]SdxsjwwQGFBEUZBAT3074-79-44 20:23:00 Test Item Value Reference Range Interpretation Comments INR (test code = INR) 1.10 1 0.85-1.17 [facility]BcvmxeiTHWNRWDOTS9679-99-19 20:23:00 Test Item Value Reference Range Interpretation Comments PT (test code = PT) 14.2 s 12.0-14.7 [facility]HtuwbtqQMQFCHMFNV3888-45-78 20:23:00 Test Item Value Reference Range Interpretation Comments PTT (test code = PTT) 26.1 s 22.9-35.8 [place] [id number] 20:23:00 Test Item Value Reference Range Interpretation Comments Ethanol Lvl (test code = Ethanol Lvl) no gt [place] [id number] 20:23:00 Test Item Value Reference Range Interpretation Comments Etoh (%) (test code = Etoh (%)) no [facility] METABOLIC PANEL *WW*2017-06-23 13:15:00 Test Item Value [...] 09D) 8.8 mg/dL 8.3-9.5 CBC (INCLUDES AUTOMATED DIFFERENTIAL)*HJ2283-12-29 13:04:00 Test Item Value Reference Range Interpretation [...] 2 VIEW *WW*2017-06-23 12:51:56Exam: Chest 2 viewsLocation: W5Llnmkhn: cough, recent pneumonia.Comparison: 10/23/2016.Findings:The lungs are clear. Central peribronchial cuffing is present. No infiltrate oreffusion is seen. The pulmonary vasculature is normal. The heart size isnormal. The mediastinal silhouette is unremarkable. Thebony thorax is intact.Impression:Bronchitis .CT STONE PROTOCOL XJPUY9089-31-13 01:06:08AFTER HOURS SERVICE ON: 06/22/2017 1:03 AMCT Scan of the Abdomen and Pelvis Without ContrastLocation Code K83Bkneuok: L flank painTechnique: Axial and reconstructed coronal [...] Noinflammatory changes seen.U/S TESTICULAR 2017-06-22 00:58:11U/S TESTICULARLocation: G5Smlbf hours services provided 06/22/2017 12:56 AMIndication: L [...] with no acute testicular or epididymalabnormality.AMYLASE AND PDNIZE8800-01-31 00:33:00 Test Item Value Reference Range Interpretation Comments AMYLASE (test code = 10A) 65 U/L 28-100 LIPASE (test code = 60A) 140 IU/L 73-393 COMPREHENSIVE METABOLIC LWE1891-38-57 00:33:00 Test Item Value Reference Range Interpretation [...] (test code = 31A) 29 IU/L <=78 ZVUDQREYNS4329-59-19 00:31:00 Test Item Value Reference Range Interpretation [...] MORPH (test code = RBCMOR) NORMAL CHEM CFPLH1431-04-62 00:46:00 Test Item Value Reference Range Interpretation Comments B/C Ratio (test code = B/C Ratio) 14 6-25 [facility] JudicataCHEM GGSIN1583-91-83 00:46:00 Test Item Value Reference Range Interpretation Comments A/G Ratio (test code = A/G Ratio) 1.2 0.7-1.6 [facility] [employer] HDDWI8288-63-20 00:46:00 Test Item Value Reference Range Interpretation Comments Globulin (test code = Globulin) 3.6 2.7-4.2 [facility]2017-06-19 00:46:00 Test Item Value Reference Range Interpretation Comments AGAP (test code = AGAP) 11.0 10.0-20.0 [facility]2017-06-19 00:46:00 Test Item Value Reference Range Interpretation Comments eGFR (test code = eGFR) 106 [facility]2017-06-19 00:46:00 Test Item Value Reference Range Interpretation Comments Albumin Lvl (test code = Albumin Lvl) 4.2 3.5-5.0 [facility]2017-06-19 00:46:00 Test Item Value Reference Range Interpretation Comments Total Protein (test code = Total 7.8 6.4-8.4 Protein) [facility]2017-06-19 00:46:00 Test Item Value Reference Range Interpretation Comments ALT (test code = ALT) 22 See_Comment [Auto mated message] The system which ge nerated this result transmit ezequiel reference range : <=65. The reference range was not used to interpr et this result as grace l/abnormal. [facility]2017-06-19 00:46:00 Test Item Value Reference Range Interpretation Comments Alk Phos (test code = Alk Phos) 72 39-136 [facility]2017-06-19 00:46:00 Test Item Value Reference Range Interpretation Comments Bili Total (test code = Bili Total) 0.6 0.2-1.3 [facility]2017-06-19 00:46:00 Test Item Value Reference Range Interpretation Comments AST (test code = AST) 15 See_Comment [Auto mated message] The system which ge nerated this result transmit ezequiel reference range : <=37. The reference range was not used to interpr et this result as grace l/abnormal. [facility]2017-06-19 00:46:00 Test Item Value Reference Range Interpretation Comments Potassium Lvl (test code = Potassium 4.0 3.5-5.1 Lvl) [facility]2017-06-19 00:46:00 Test Item Value Reference Range Interpretation Comments Chloride Lvl (test code = Chloride Lvl) 108 95-109 [facility]2017-06-19 00:46:00 Test Item Value Reference Range Interpretation Comments CO2 (test code = CO2) 26 24-32 [facility]2017-06-19 00:46:00 Test Item Value Reference Range Interpretation Comments Calcium Lvl (test code = Calcium Lvl) 9.4 8.5-10.5 [facility]2017-06-19 00:46:00 Test Item Value Reference Range Interpretation Comments Glucose Lvl (test code = Glucose Lvl) 108 70-99 [facility]2017-06-19 00:46:00 Test Item Value Reference Range Interpretation Comments Creatinine Lvl (test code = Creatinine 0.97 0.50-1.40 Lvl) [facility]2017-06-19 00:46:00 Test Item Value Reference Range Interpretation Comments BUN (test code = BUN) 14 7-22 [facility]2017-06-19 00:46:00 Test Item Value Reference Range Interpretation Comments Sodium Lvl (test code = Sodium Lvl) 141 135-145 [facility]2017-06-19 00:46:00 Test Item Value Reference Range Interpretation Comments Lipase Lvl (test code = Lipase Lvl) 197 73-393 [facility]DF[facility]UE[facility]6076[facility]-84 00:46:00 Test Item Value Reference Range Interpretation Comments Lymphocytes (test code = Lymphocytes) 18.8 20.0-40.0 [facility]AwaujvcDPZXUGYCKF9614-97-59 00:46:00 Test Item Value Reference Range Interpretation Comments Segs (test code = Segs) 70.6 45.0-75.0 [facility]NcqlgyrIPTSSOSRPB0947-81-57 00:46:00 Test Item Value Reference Range Interpretation Comments Eosinophils # (test code 0.2 See_Comment [A utomated message] The = Eosinophils #) system whic h generated this result tra nsmitted reference range : <=0.5. The reference r tony was not used to int erpret this result as normal/abnormal . [facility]CvuuawaSZLQQETGZG2391-13-42 00:46:00 Test Item Value Reference Range Interpretation Comments Monocytes # (test code 0.8 See_Comment [Aut omated message] The = Monocytes #) system which generated this result tra nsmitted reference range : <=0.8. The reference r tony was not used to int erpret this result as normal/abnormal . [facility]NuixdueGKCSKAMNNF2754-87-29 00:46:00 Test Item Value Reference Range Interpretation Comments Monocytes (test code = Monocytes) 8.3 2.0-12.0 [facility]RqyoqurMZLEUOKQRR6944-27-06 00:46:00 Test Item Value Reference Range Interpretation Comments Eosinophils (test code = 2.0 See_Comment [A utomated message] The Eosinophils) system which ge nerated this result tra nsmitted reference range : <=4.0. The reference r tony was not used to int erpret this result as normal/abnormal . [facility]UpzinqtAHWRDRHQYY2682-40-94 00:46:00 Test Item Value Reference Range Interpretation Comments Basophils (test code = 0.3 See_Comment [Aut omated message] The Basophils) system which ge nerated this result tra nsmitted reference range : <=1.0. The reference r tony was not used to int erpret this result as normal/abnormal . [facility]XdiycumIBIGQRFFRA2125-84-65 00:46:00 Test Item Value Reference Range Interpretation Comments Segs-Bands # (test code = Segs-Bands #) 7.2 1.5-8.1 [facility]FcpxputQGUCNNMDTC9762-90-75 00:46:00 Test Item Value Reference Range Interpretation Comments Lymphocytes # (test code = Lymphocytes 1.9 1.0-5.5 #) [facility]SrbdwsiPTXXJPBREV0015-41-31 00:46:00 Test Item Value Reference Range Interpretation Comments MCHC (test code = MCHC) 34.2 32.0-36.0 [facility]IeocuwaHBONMEDQIN0596-57-51 00:46:00 Test Item Value Reference Range Interpretation Comments MPV (test code = MPV) 9.8 7.4-10.4 [facility]HcedgovCRQUFSAQNG2873-43-55 00:46:00 Test Item Value Reference Range Interpretation Comments Platelet (test code = Platelet) 189 133-450 [facility]QuauempJEMUGEWHUY9197-95-61 00:46:00 Test Item Value Reference Range Interpretation Comments RDW (test code = RDW) 13.8 11.5-14.5 [facility]FjqicvnYDJQFCGDDT2019-43-66 00:46:00 Test Item Value Reference Range Interpretation Comments MCH (test code = MCH) 32.6 pg 27.0-31.0 [facility]YuilxizXFMLHYCVHL3678-57-93 00:46:00 Test Item Value Reference Range Interpretation Comments Hct (test code = Hct) 47.3 42.0-54.0 [facility]LcwkjrjNJCBBFGXND6364-54-75 00:46:00 Test Item Value Reference Range Interpretation Comments Hgb (test code = Hgb) 16.2 14.0-18.0 [facility]ZbyurvoOTDTMGDFFV8288-58-39 00:46:00 Test Item Value Reference Range Interpretation Comments MCV (test code = MCV) 95.2 80.0-94.0 [facility]EdlaerzVPVDOCGTIM2642-14-13 00:46:00 Test Item Value Reference Range Interpretation Comments WBC (test code = WBC) 10.2 3.7-10.4 [facility]OzdgtpfCCQBFIIDNK4245-60-24 00:46:00 Test Item Value Reference Range Interpretation Comments RBC (test code = RBC) 4.97 4.70-6.10 [facility] AND [id number] 00:46:00 Test Item Value Reference Range Interpretation Comments UA Urobilinogen (test code = UA <=1.0 mg/dL 0.1-1.0 Urobilinogen) [facility] AND [id number] 00:46:00 Test Item Value Reference Range Interpretation Comments UA Nitrite (test code Negative (11/18/16 7:46 = UA Nitrite) PM) [facility] AND [id number] 00:46:00 Test Item Value Reference Range Interpretation Comments UA WBC (test code = 2 See_Comment [Automa ezequiel message] The UA WBC) system which ge nerated this result transmit ezequiel reference range : <=5. The reference range was not used to interpr et this result as grace l/abnormal. [facility] AND [id number] 00:46:00 Test Item Value Reference Range Interpretation Comments UA Sq Epi (test code = UA Sq Occasional /LPF Epi) [facility] AND [id number] 00:46:00 Test Item Value Reference Range Interpretation Comments UA Blood (test code = Negative (11/18/16 7:46 UA Blood) PM) [facility] AND [id number] 00:46:00 Test Item Value Reference Range Interpretation Comments UA Leuk Est (test Negative (6/18/17 7:46 code = UA Leuk Est) PM) [facility] [id number] 00:46:00 Test Item Value Reference Range Interpretation Comments UA Bili (test code = Negative *NA*(11/18/16 UA Bili) 7:46 PM) [facility] [id number] 00:46:00 Test Item Value Reference Range Interpretation Comments UA Protein (test code = UA Negative mg/dL Protein) [facility] [id number] 00:46:00 Test Item Value Reference Range Interpretation Comments UA pH (test code = UA pH) 5.0 5.0-8.0 [facility] [id number] 00:46:00 Test Item Value Reference Range Interpretation Comments UA Ketones (test code = UA Ketones) 20 mg/dL [facility] [id number] 00:46:00 Test Item Value Reference Range Interpretation Comments UA Glucose (test code = UA Negative mg/dL Glucose) [facility] [id number] 00:46:00 Test Item Value Reference Range Interpretation Comments UA Spec Grav (test code = UA Spec Grav) 1.032 [facility] [id number] 00:46:00 Test Item Value Reference Range Interpretation Comments UA Mucus (test code = UA Mucus) Many /LPF [facility] [id number] 00:46:00 Test Item Value Reference Range Interpretation Comments UA RBC (test code = 1 See_Comment [Automa ezequiel message] The UA RBC) system which ge nerated this result transmit ezequiel reference range : <=2. The reference range was not used to interpr et this result as grace l/abnormal. [facility] [id number] 00:46:00 Test Item Value Reference Range Interpretation Comments UA Color (test code = Yellow *NA*(11/18/16 UA Color) 7:46 PM) [facility] [id number] 00:46:00 Test Item Value Reference Range Interpretation Comments UA Turbidity (test code Slight *ABN*(11/18/16 = UA Turbidity) 7:46 PM) [facility] [id number] 00:46:00 Test Item Value Reference Range Interpretation Comments B/C Ratio (test code = B/C Ratio) 14 6- [facility]2017-06-19 00:46:00 Test Item Value Reference Range Interpretation Comments A/G Ratio (test code = A/G Ratio) 1.2 0.7-1.6 [facility]2017-06-19 00:46:00 Test Item Value Reference Range Interpretation Comments Globulin (test code = Globulin) 3.6 2.7-4.2 [facility]2017-06-19 00:46:00 Test Item Value Reference Range Interpretation Comments AGAP (test code = AGAP) 11.0 10.0-20.0 [facility]2017-06-19 00:46:00 Test Item Value Reference Range Interpretation Comments eGFR (test code = eGFR) 106 [facility]2017-06-19 00:46:00 Test Item Value Reference Range Interpretation Comments Albumin Lvl (test code = Albumin Lvl) 4.2 3.5-5.0 [facility]2017-06-19 00:46:00 Test Item Value Reference Range Interpretation Comments Total Protein (test code = Total 7.8 6.4-8.4 Protein) [facility]2017-06-19 00:46:00 Test Item Value Reference Range Interpretation Comments ALT (test code = ALT) 22 See_Comment [Auto mated message] The system which ge nerated this result transmit ezequiel reference range : <=65. The reference range was not used to interpr et this result as grace l/abnormal. [facility]2017-06-19 00:46:00 Test Item Value Reference Range Interpretation Comments Alk Phos (test code = Alk Phos) 72 39-136 [facility]2017-06-19 00:46:00 Test Item Value Reference Range Interpretation Comments Bili Total (test code = Bili Total) 0.6 0.2-1.3 [facility]2017-06-19 00:46:00 Test Item Value Reference Range Interpretation Comments AST (test code = AST) 15 See_Comment [Auto mated message] The system which ge nerated this result transmit ezequiel reference range : <=37. The reference range was not used to interpr et this result as grace l/abnormal. [facility]2017-06-19 00:46:00 Test Item Value Reference Range Interpretation Comments Potassium Lvl (test code = Potassium 4.0 3.5-5.1 Lvl) [facility]2017-06-19 00:46:00 Test Item Value Reference Range Interpretation Comments Chloride Lvl (test code = Chloride Lvl) 108 95-109 [facility]2017-06-19 00:46:00 Test Item Value Reference Range Interpretation Comments CO2 (test code = CO2) 26 24-32 [facility]2017-06-19 00:46:00 Test Item Value Reference Range Interpretation Comments Calcium Lvl (test code = Calcium Lvl) 9.4 8.5-10.5 [facility]2017-06-19 00:46:00 Test Item Value Reference Range Interpretation Comments Glucose Lvl (test code = Glucose Lvl) 108 70-99 [facility]2017-06-19 00:46:00 Test Item Value Reference Range Interpretation Comments Creatinine Lvl (test code = Creatinine 0.97 0.50-1.40 Lvl) [facility]2017-06-19 00:46:00 Test Item Value Reference Range Interpretation Comments BUN (test code = BUN) 14 7-22 [facility]2017-06-19 00:46:00 Test Item Value Reference Range Interpretation Comments Sodium Lvl (test code = Sodium Lvl) 141 135-145 [facility]2017-06-19 00:46:00 Test Item Value Reference Range Interpretation Comments Lipase Lvl (test code = Lipase Lvl) 197 73-393 [facility]MndokycFBBELWHIWC1608-43-49 00:46:00 Test Item Value Reference Range Interpretation Comments Lymphocytes (test code = Lymphocytes) 18.8 20.0-40.0 [facility]ScfzybfQXJJKRFHHP2719-48-86 00:46:00 Test Item Value Reference Range Interpretation Comments Segs (test code = Segs) 70.6 45.0-75.0 [facility]UbnykaxVYBOYGQVUL4093-27-50 00:46:00 Test Item Value Reference Range Interpretation Comments Eosinophils # (test code 0.2 See_Comment [A utomated message] The = Eosinophils #) system whic h generated this result tra nsmitted reference range : <=0.5. The reference r tony was not used to int erpret this result as normal/abnormal . [place] [id number] 00:46:00 Test Item Value Reference Range Interpretation Comments Monocytes # (test code 0.8 See_Comment [Aut omated message] The = Monocytes #) system which generated this result tra nsmitted reference range : <=0.8. The reference r tony was not used to int erpret this result as normal/abnormal . [facility]XtfbcfrRMWNDYPXKR7983-13-77 00:46:00 Test Item Value Reference Range Interpretation Comments Monocytes (test code = Monocytes) 8.3 2.0-12.0 [facility]SbkqftoAOLVOTXERJ8037-39-78 00:46:00 Test Item Value Reference Range Interpretation Comments Eosinophils (test code = 2.0 See_Comment [A utomated message] The Eosinophils) system which ge nerated this result tra nsmitted reference range : <=4.0. The reference r tony was not used to int erpret this result as normal/abnormal . [facility]JalqnywVWDDODTEGW3021-65-35 00:46:00 Test Item Value Reference Range Interpretation Comments Basophils (test code = 0.3 See_Comment [Aut omated message] The Basophils) system which ge nerated this result tra nsmitted reference range : <=1.0. The reference r tony was not used to int erpret this result as normal/abnormal . [facility]MagldhrMWOZZZBLCP0872-06-27 00:46:00 Test Item Value Reference Range Interpretation Comments Segs-Bands # (test code = Segs-Bands #) 7.2 1.5-8.1 [facility]OohtjdlFQNTTTNQJV4950-79-82 00:46:00 Test Item Value Reference Range Interpretation Comments Lymphocytes # (test code = Lymphocytes 1.9 1.0-5.5 #) [facility]XjkazivVHESHKVJAM6844-26-62 00:46:00 Test Item Value Reference Range Interpretation Comments MCHC (test code = MCHC) 34.2 32.0-36.0 [facility]AtfpyuiJGSEXRGHBQ6408-09-69 00:46:00 Test Item Value Reference Range Interpretation Comments MPV (test code = MPV) 9.8 7.4-10.4 [facility]IxgqtafKIUXUAWHPS8339-62-57 00:46:00 Test Item Value Reference Range Interpretation Comments Platelet (test code = Platelet) 189 133-450 [facility]CescjyaSBFZKMMEQS0531-35-53 00:46:00 Test Item Value Reference Range Interpretation Comments RDW (test code = RDW) 13.8 11.5-14.5 [facility]XorkylfEBKDGBXFFT8645-08-90 00:46:00 Test Item Value Reference Range Interpretation Comments MCH (test code = MCH) 32.6 pg 27.0-31.0 [facility]OtpskgcTDUZYNKSTQ9302-66-97 00:46:00 Test Item Value Reference Range Interpretation Comments Hct (test code = Hct) 47.3 42.0-54.0 [facility]NihnsrcTLBHFDDVUL1670-63-65 00:46:00 Test Item Value Reference Range Interpretation Comments Hgb (test code = Hgb) 16.2 14.0-18.0 [facility]FewfdzlLSGBMRBSYW3744-28-24 00:46:00 Test Item Value Reference Range Interpretation Comments MCV (test code = MCV) 95.2 80.0-94.0 [facility]MfeeccwVAUCSQELFG7864-99-78 00:46:00 Test Item Value Reference Range Interpretation Comments WBC (test code = WBC) 10.2 3.7-10.4 [facility]TmmkqedQKMZWDIMRU4343-72-20 00:46:00 Test Item Value Reference Range Interpretation Comments RBC (test code = RBC) 4.97 4.70-6.10 [facility] AND [id number] 00:46:00 Test Item Value Reference Range Interpretation Comments UA Urobilinogen (test code = UA <=1.0 mg/dL 0.1-1.0 Urobilinogen) [facility] AND [id number] 00:46:00 Test Item Value Reference Range Interpretation Comments UA Nitrite (test code Negative (11/18/16 7:46 = UA Nitrite) PM) [facility] AND [id number] 00:46:00 Test Item Value Reference Range Interpretation Comments UA WBC (test code = 2 See_Comment [Automa ezequiel message] The UA WBC) system which ge nerated this result transmit ezequiel reference range : <=5. The reference range was not used to interpr et this result as grace l/abnormal. [facility] AND [id number] 00:46:00 Test Item Value Reference Range Interpretation Comments UA Sq Epi (test code = UA Sq Occasional /LPF Epi) [facility] AND [id number] 00:46:00 Test Item Value Reference Range Interpretation Comments UA Blood (test code = Negative (11/18/16 7:46 UA Blood) PM) [facility] AND [id number] 00:46:00 Test Item Value Reference Range Interpretation Comments UA Leuk Est (test Negative (11/18/16 7:46 code = UA Leuk Est) PM) [facility] AND [id number] 00:46:00 Test Item Value Reference Range Interpretation Comments UA Bili (test code = Negative *NA*(11/18/16 UA Bili) 7:46 PM) [facility] AND [id number] 00:46:00 Test Item Value Reference Range Interpretation Comments UA Protein (test code = UA Negative mg/dL Protein) [facility] AND [id number] 00:46:00 Test Item Value Reference Range Interpretation Comments UA pH (test code = UA pH) 5.0 5.0-8.0 [facility] AND [id number] 00:46:00 Test Item Value Reference Range Interpretation Comments UA Ketones (test code = UA Ketones) 20 mg/dL [facility] AND [id number] 00:46:00 Test Item Value Reference Range Interpretation Comments UA Glucose (test code = UA Negative mg/dL Glucose) [facility] AND [id number] 00:46:00 Test Item Value Reference Range Interpretation Comments UA Spec Grav (test code = UA Spec Grav) 1.032 [facility] AND [id number] 00:46:00 Test Item Value Reference Range Interpretation Comments UA Mucus (test code = UA Mucus) Many /LPF [facility] AND [id number] 00:46:00 Test Item Value Reference Range Interpretation Comments UA RBC (test code = 1 See_Comment [Automa ezequiel message] The UA RBC) system which ge nerated this result transmit ezequiel reference range : <=2. The reference range was not used to interpr et this result as grace l/abnormal. [facility] AND [id number] 00:46:00 Test Item Value Reference Range Interpretation Comments UA Color (test code = Yellow *NA*(11/18/16 UA Color) 7:46 PM) [facility] AND [id number] 00:46:00 Test Item Value Reference Range Interpretation Comments UA Turbidity (test code Slight *ABN*(11/18/16 = UA Turbidity) 7:46 PM) [facility] *WW*2016-10-23 14:38:00 Test Item Value [...] 60A) 100 IU/L 73-393 CBC (INCLUDES AUTOMATED DIFFERENTIAL)*[id number] 14:19:00 Test Item Value Reference Range Interpretation [...] 2016-10-23 13:51:45Portable AP chest, 1 viewLocation Code: [id number] HISTORY: Abdominal painCOMPARISON: 07/14/2013COMMEN T: The lungs are clear and well inflated. The costophrenic angles are sharp. Thecardiomediastinal silhouette is unremarkable. The bones are intact.IMPRESSION: Stable chest with no acute abnormality.CT ABDOMEN AND PELVIS WITHOUT CONTRAST 2016-10-23 13:50:29CT abdomen and pelvis without contrastLocation Code: [id number] HISTORY: Abdominal painCOMPARISON: 03/2017Technique: Helical CT of [...] no acute abnormality.CT ABDOMEN AND PELVIS WITH HEVQIGRY5215-25-14 21:28:44CT abdomen and pelvis with contrastLocation Code: [id number] HISTORY: Abdominal painCOMPARISON: 07/18/13, 07/13/13Technique: Helical CT [...] bones, skin, and surrounding soft tissues are u nremarkable.IMPRESSION: No acute intra-abdominal or pelvic abnormality.DRUGS OF [id number] 21:03:00 Test Item Value Reference Range Interpretation [...] 200 ng/mL Opiates 2000 ng/mL URINALYSIS WITH [id number] 20:50:00 Test Item Value Reference Range Interpretation [...] code = USPERM) /HPF NONE AMYLASE AND [id number] 20:44:00 Test Item Value Reference Range Interpretation Comments AMYLASE (test code = 10A) 46 U/L 28-100 LIPASE (test code = 60A) 128 IU/L 73-393 COMPREHENSIVE METABOLIC [id number] 20:44:00 Test Item Value Reference Range Interpretation [...] MORPH (test code = RBCMOR) NORMAL CARDIAC [id number] 10:21:00 Test Item Value Reference Range Interpretation Comments Total CK (test code = Total CK) 274 12-191 [facility] HospitalLyglhniDOWBOWAXBILR5700-46-24 10:21:00 Test Item Value Reference Range Interpretation Comments AGAP (test code = AGAP) 14.0 10.0-20.0 [facility] HospitalKmgechuSXGCCVFTKKWT8648-82-53 10:21:00 Test Item Value Reference Range Interpretation Comments B/C Ratio (test code = B/C Ratio) 10 6-25 [facility] HospitalKshrjpiRPGCZWHYRFDC3857-87-78 10:21:00 Test Item Value Reference Range Interpretation Comments Globulin (test code = Globulin) 3.5 2.0-4.0 [facility] HospitalEwnegcgKULNKOGZSPHX6387-29-81 10:21:00 Test Item Value Reference Range Interpretation Comments A/G Ratio (test code = A/G Ratio) 1.3 0.7-1.6 [facility] HospitalGrjftagMUOQSLFJSGTI7942-18-24 10:21:00 Test Item Value Reference Range Interpretation Comments Bili Total (test code = Bili Total) 0.4 0.2-1.3 [facility] HospitalCyfuejlFOZNFGJXPVRB5310-67-88 10:21:00 Test Item Value Reference Range Interpretation Comments eGFR (test code = eGFR) 96 [facility] HospitalNtbhjmgMNPETBKALNMD6623-01-06 10:21:00 Test Item Value Reference Range Interpretation Comments Sodium Lvl (test code = Sodium Lvl) 140 135-145 [facility] HospitalYntndrxSAKQSTVYUPLQ8891-78-43 10:21:00 Test Item Value Reference Range Interpretation Comments CO2 (test code = CO2) 24 24-32 [facility] HospitalKmknbeeNSMPGFPTFJIR0134-68-62 10:21:00 Test Item Value Reference Range Interpretation Comments Calcium Lvl (test code = Calcium Lvl) 8.5 8.5-10.5 [facility] HospitalQekpoezTCYQLSSAFLDM8726-05-05 10:21:00 Test Item Value Reference Range Interpretation Comments AST (test code = AST) 13 See_Comment [Auto mated message] The system which ge nerated this result transmit ezequiel reference range : <=37. The reference range was not used to interpr et this result as grace l/abnormal. [facility] HospitalUatwavlGJZQIFPKBDBV0882-29-67 10:21:00 Test Item Value Reference Range Interpretation Comments Potassium Lvl (test code = Potassium 4.0 3.5-5.1 Lvl) [facility] HospitalHapeejrWIAPYOEDHGLI7386-69-65 10:21:00 Test Item Value Reference Range Interpretation Comments Chloride Lvl (test code = Chloride Lvl) 106 95-109 [facility] HospitalJhujlaqMUCVXWJSWORD0243-20-17 10:21:00 Test Item Value Reference Range Interpretation Comments Total Protein (test code = Total 7.9 6.4-8.4 Protein) [facility] HospitalJqjqdauWYXOOADLQNRX3116-04-50 10:21:00 Test Item Value Reference Range Interpretation Comments Albumin Lvl (test code = Albumin Lvl) 4.4 3.5-5.0 [facility] HospitalWsdgvrfUOWZRFYCNIDW6818-72-33 10:21:00 Test Item Value Reference Range Interpretation Comments ALT (test code = ALT) 29 See_Comment [Auto mated message] The system which ge nerated this result transmit ezequiel reference range : <=65. The reference range was not used to interpr et this result as grace l/abnormal. [facility] HospitalUgjvettPQAQNICDEAQI0570-71-00 10:21:00 Test Item Value Reference Range Interpretation Comments Alk Phos (test code = Alk Phos) 66 39-136 [facility] HospitalUxupeamTSYTPBSPSEKA3286-28-41 10:21:00 Test Item Value Reference Range Interpretation Comments Creatinine Lvl (test code = Creatinine 1.06 0.50-1.40 Lvl) [facility] HospitalVpbbezvPCFXQBXSEIMJ3444-04-81 10:21:00 Test Item Value Reference Range Interpretation Comments BUN (test code = BUN) 11 7-22 [facility] HospitalGflfwatSTBIOBSHUPVB0698-73-33 10:21:00 Test Item Value Reference Range Interpretation Comments Glucose Lvl (test code = Glucose Lvl) 96 70-99 [facility]zfxqneLMLRFEPTRP0441-13-90 10:21:00 Test Item Value Reference Range Interpretation Comments INR (test code = INR) 1.03 0.85-1.17 [facility]XbbubcrTFEGIXXSYH2401-22-64 10:21:00 Test Item Value Reference Range Interpretation Comments PT (test code = PT) 13.8 s 12.0-14.7 [facility]PnuoyzoJNCRLGPUVX0689-08-33 10:21:00 Test Item Value Reference Range Interpretation Comments WBC (test code = WBC) 13.5 3.7-10.4 [facility]RpsonviZYJFYPVUBV8304-22-01 10:21:00 Test Item Value Reference Range Interpretation Comments RBC (test code = RBC) 5.03 4.70-6.10 [facility]NefcchzGFZOHPJBHR6026-59-93 10:21:00 Test Item Value Reference Range Interpretation Comments Hgb (test code = Hgb) 15.5 14.0-18.0 [facility]DhlknnbDTMRIMIEEB1846-69-55 10:21:00 Test Item Value Reference Range Interpretation Comments Hct (test code = Hct) 46.2 42.0-54.0 [facility]IvqxxajVIKWWCXDAK4868-90-98 10:21:00 Test Item Value Reference Range Interpretation Comments MPV (test code = MPV) 9.9 7.4-10.4 [facility]EatqbfaUXSQAPOHLB5745-47-81 10:21:00 Test Item Value Reference Range Interpretation Comments RDW (test code = RDW) 13.3 11.5-14.5 [facility]EzaknjjIASEFSLKJH7073-83-75 10:21:00 Test Item Value Reference Range Interpretation Comments MCHC (test code = MCHC) 33.5 32.0-36.0 [facility]GuszkylHPXSBGPGQQ3609-75-75 10:21:00 Test Item Value Reference Range Interpretation Comments Platelet (test code = Platelet) 223 133-450 [facility]YvkshawJXMGPBDPTS5741-48-87 10:21:00 Test Item Value Reference Range Interpretation Comments MCH (test code = MCH) 30.8 pg 27.0-31.0 [facility]AnwwuseSVOQZMTEIV1588-85-63 10:21:00 Test Item Value Reference Range Interpretation Comments MCV (test code = MCV) 91.9 80.0-94.0 [facility]PbdbcgnLPUPGSKFCE1061-88-50 10:21:00 Test Item Value Reference Range Interpretation Comments Lymphocytes # (test code = Lymphocytes 2.3 1.0-5.5 #) [facility]BslmdvrUYPILZNBIB1121-59-02 10:21:00 Test Item Value Reference Range Interpretation Comments Basophils (test code = 0.4 See_Comment [Aut omated message] The Basophils) system which ge nerated this result tra nsmitted reference range : <=1.0. The reference r tony was not used to int erpret this result as normal/abnormal . [facility]KkjjcqqBZBDHKVSSE2643-37-35 10:21:00 Test Item Value Reference Range Interpretation Comments Monocytes # (test code 0.5 See_Comment [Aut omated message] The = Monocytes #) system which generated this result tra nsmitted reference range : <=0.8. The reference r tony was not used to int erpret this result as normal/abnormal . [facility]WsaeowpCTHHLPDGWA8327-96-42 10:21:00 Test Item Value Reference Range Interpretation Comments Segs-Bands # (test code = Segs-Bands #) 10.4 1.5-8.1 [facility]AfbkngqISYXDSTKZB3722-19-82 10:21:00 Test Item Value Reference Range Interpretation Comments Monocytes (test code = Monocytes) 3.4 2.0-12.0 [facility]QahbrokDKSKFMDCMP0403-75-67 10:21:00 Test Item Value Reference Range Interpretation Comments Lymphocytes (test code = Lymphocytes) 17.0 20.0-40.0 [facility]EtxlmjpALHLPHURYK8568-47-40 10:21:00 Test Item Value Reference Range Interpretation Comments Eosinophils (test code = 2.3 See_Comment [A utomated message] The Eosinophils) system which ge nerated this result tra nsmitted reference range : <=4.0. The reference r tony was not used to int erpret this result as normal/abnormal . [facility]JJFLMKMID9184[facility] 10:21:00 Test Item Value Reference Range Interpretation Comments Segs (test code = Segs) 76.9 45.0-75.0 [facility]XsrnkgxIDPXPJUUTD6985-19-38 10:21:00 Test Item Value Reference Range Interpretation Comments Eosinophils # (test code 0.3 See_Comment [A utomated message] The = Eosinophils #) system whic h generated this result tra nsmitted reference range : <=0.5. The reference r tony was not used to int erpret this result as normal/abnormal . [facility]OiklcrmCFTCURICFW1518-04-28 10:21:00 Test Item Value Reference Range Interpretation Comments Etoh (%) (test code = Etoh (%)) 0.141 [facility] HospitalWzndkasWCGCHHPSEJ4446-91-96 10:21:00 Test Item Value Reference Range Interpretation Comments Ethanol Lvl (test code = Ethanol Lvl) 141 [facility] HospitalCARDIAC XBLGZFD6696-90-66 10:21:00 Test Item Value Reference Range Interpretation Comments Total CK (test code = Total CK) 274 12-191 [facility]AkigttvQCJBQGIMLTWY6589-25-02 10:21:00 Test Item Value Reference Range Interpretation Comments AGAP (test code = AGAP) 14.0 10.0-20.0 [facility]HobpmufGUUAXWIJXNEF2680-03-05 10:21:00 Test Item Value Reference Range Interpretation Comments B/C Ratio (test code = B/C Ratio) 10 6-25 [facility] SystemPrlvolcFXVOEMOIOTDQ9182-83-91 10:21:00 Test Item Value Reference Range Interpretation Comments Globulin (test code = Globulin) 3.5 2.0-4.0 [facility] SystemNaffavmRIDPDNURTKAP5786-56-71 10:21:00 Test Item Value Reference Range Interpretation Comments A/G Ratio (test code = A/G Ratio) 1.3 0.7-1.6 [facility] HospitalYthcveiWTVLDPKTXHSR8513-44-32 10:21:00 Test Item Value Reference Range Interpretation Comments Bili Total (test code = Bili Total) 0.4 0.2-1.3 [facility] HospitalFvvvjtjXSJHNIVIXULE0779-97-59 10:21:00 Test Item Value Reference Range Interpretation Comments eGFR (test code = eGFR) 96 [facility] HospitalAjantdmSPKIFSWBHLJW2437-73-27 10:21:00 Test Item Value Reference Range Interpretation Comments Sodium Lvl (test code = Sodium Lvl) 140 135-145 [facility] HospitalEmcyvacHNNUJNDCWPLN6439-15-72 10:21:00 Test Item Value Reference Range Interpretation Comments CO2 (test code = CO2) 24 24-32 [facility] HospitalCtsqadnOXNCPWJXQKQW6416-24-51 10:21:00 Test Item Value Reference Range Interpretation Comments Calcium Lvl (test code = Calcium Lvl) 8.5 8.5-10.5 [facility] HospitalSdqsmtkTXZLCQEUZBXA1109-58-10 10:21:00 Test Item Value Reference Range Interpretation Comments AST (test code = AST) 13 See_Comment [Auto mated message] The system which ge nerated this result transmit ezequiel reference range : <=37. The reference range was not used to interpr et this result as grace l/abnormal. [facility] HospitalVhmepleWQGYAXIEEMVG8652-23-83 10:21:00 Test Item Value Reference Range Interpretation Comments Potassium Lvl (test code = Potassium 4.0 3.5-5.1 Lvl) [facility] HospitalCjjaokhHYPYKTUVMRVP7231-96-76 10:21:00 Test Item Value Reference Range Interpretation Comments Chloride Lvl (test code = Chloride Lvl) 106 95-109 [facility] HospitalYzegeeqFKIFUHGZDPGA7729-37-68 10:21:00 Test Item Value Reference Range Interpretation Comments Total Protein (test code = Total 7.9 6.4-8.4 Protein) [facility] HospitalGypeusvGQVRVXDWOVVM7887-48-30 10:21:00 Test Item Value Reference Range Interpretation Comments Albumin Lvl (test code = Albumin Lvl) 4.4 3.5-5.0 [facility] HospitalFomtriiULIZSHBFBMFX1428-28-66 10:21:00 Test Item Value Reference Range Interpretation Comments ALT (test code = ALT) 29 See_Comment [Auto mated message] The system which ge nerated this result transmit ezequiel reference range : <=65. The reference range was not used to interpr et this result as grace l/abnormal. [facility] HospitalTuqwmgoLKKWEYPQVTHK8657-81-79 10:21:00 Test Item Value Reference Range Interpretation Comments Alk Phos (test code = Alk Phos) 66 39-136 [facility] HospitalCibiptkXIXNHBWTFELX7256-34-79 10:21:00 Test Item Value Reference Range Interpretation Comments Creatinine Lvl (test code = Creatinine 1.06 0.50-1.40 Lvl) [facility] HospitalJdrkaftYYNXQEZLQANK5457-61-00 10:21:00 Test Item Value Reference Range Interpretation Comments BUN (test code = BUN) 11 7-22 [facility] HospitalAfzwiqaVCAIYESKNXMC7825-51-54 10:21:00 Test Item Value Reference Range Interpretation Comments Glucose Lvl (test code = Glucose Lvl) 96 70-99 [facility]AiwobdtBOGFZNLGKQ2166-60-06 10:21:00 Test Item Value Reference Range Interpretation Comments INR (test code = INR) 1.03 0.85-1.17 [facility]FrylmjcILHDUCNJGA0773-40-91 10:21:00 Test Item Value Reference Range Interpretation Comments PT (test code = PT) 13.8 s 12.0-14.7 [facility]EnphdckHSHHRUGKUQ3182-16-44 10:21:00 Test Item Value Reference Range Interpretation Comments WBC (test code = WBC) 13.5 3.7-10.4 [facility]WyxgjraCIZQWOZNZV5884-93-22 10:21:00 Test Item Value Reference Range Interpretation Comments RBC (test code = RBC) 5.03 4.70-6.10 [facility]EefvrixEFSLCQLPGA0217-50-27 10:21:00 Test Item Value Reference Range Interpretation Comments Hgb (test code = Hgb) 15.5 14.0-18.0 [facility]EknxqlmHVYVXKCWIC4998-04-98 10:21:00 Test Item Value Reference Range Interpretation Comments Hct (test code = Hct) 46.2 42.0-54.0 [facility]VamijrrSJEHAFVNLM0042-57-67 10:21:00 Test Item Value Reference Range Interpretation Comments MPV (test code = MPV) 9.9 7.4-10.4 [facility]GtcymzsZOQKTVRZXW6416-94-99 10:21:00 Test Item Value Reference Range Interpretation Comments RDW (test code = RDW) 13.3 11.5-14.5 [facility]WupfpiwSKAASWTEAP5435-01-38 10:21:00 Test Item Value Reference Range Interpretation Comments MCHC (test code = MCHC) 33.5 32.0-36.0 [facility]SyohywsFAOSDXLNFG8659-23-80 10:21:00 Test Item Value Reference Range Interpretation Comments Platelet (test code = Platelet) 223 133-450 [facility]JydtnbdXBOPJHJZDM5832-70-12 10:21:00 Test Item Value Reference Range Interpretation Comments MCH (test code = MCH) 30.8 pg 27.0-31.0 [facility]LpinkuvRGSDWRJZXI0256-05-57 10:21:00 Test Item Value Reference Range Interpretation Comments MCV (test code = MCV) 91.9 80.0-94.0 [facility]JgdisteTFZUGKIDKT4367-69-80 10:21:00 Test Item Value Reference Range Interpretation Comments Lymphocytes # (test code = Lymphocytes 2.3 1.0-5.5 #) [facility]SseasbeTZNQWFYWYJ0028-01-49 10:21:00 Test Item Value Reference Range Interpretation Comments Basophils (test code = 0.4 See_Comment [Aut omated message] The Basophils) system which ge nerated this result tra nsmitted reference range : <=1.0. The reference r tony was not used to int erpret this result as normal/abnormal . [facility]GzdprerFAKOVPGQEQ4691-56-00 10:21:00 Test Item Value Reference Range Interpretation Comments Monocytes # (test code 0.5 See_Comment [Aut omated message] The = Monocytes #) system which generated this result tra nsmitted reference range : <=0.8. The reference r tony was not used to int erpret this result as normal/abnormal . [facility]LxcthhwCRWVAVJNUJ0481-73-22 10:21:00 Test Item Value Reference Range Interpretation Comments Segs-Bands # (test code = Segs-Bands #) 10.4 1.5-8.1 [facility]RlpgjlxWMOEZPYYNZ7524-36-43 10:21:00 Test Item Value Reference Range Interpretation Comments Monocytes (test code = Monocytes) 3.4 2.0-12.0 [facility]GwigrfkYVNUAPHJNR7415-62-08 10:21:00 Test Item Value Reference Range Interpretation Comments Lymphocytes (test code = Lymphocytes) 17.0 20.0-40.0 [facility]CiocorxDDZUQGDLBA6098-82-79 10:21:00 Test Item Value Reference Range Interpretation Comments Eosinophils (test code = 2.3 See_Comment [A utomated message] The Eosinophils) system which ge nerated this result tra nsmitted reference range : <=4.0. The reference r tony was not used to int erpret this result as normal/abnormal . [facility]GqezmhcZQDNMQQYEH7079-77-81 10:21:00 Test Item Value Reference Range Interpretation Comments Segs (test code = Segs) 76.9 45.0-75.0 [facility]ExpouwxATBLUBCLVI7139-47-11 10:21:00 Test Item Value Reference Range Interpretation Comments Eosinophils # (test code 0.3 See_Comment [A utomated message] The = Eosinophils #) system whic h generated this result tra nsmitted reference range : <=0.5. The reference r tony was not used to int erpret this result as normal/abnormal . [place] [id number] 10:21:00 Test Item Value Reference Range Interpretation Comments Etoh (%) (test code = Etoh (%)) 0.141 [place] [id number] 10:21:00 Test Item Value Reference Range Interpretation Comments Ethanol Lvl (test code = Ethanol Lvl) 141 [facility] AND [id number] 07:00:00 Test Item Value Reference Range Interpretation Comments UA Turbidity (test code = Clear (06/08/15 1:00 UA Turbidity) AM) [facility] AND [id number] 07:00:00 Test Item Value Reference Range Interpretation Comments UA Spec Grav (test code = UA Spec 1.015 1 Grav) [facility] AND [id number] 07:00:00 Test Item Value Reference Range Interpretation Comments UA Color (test code = Yellow *NA*(06/08/15 1:00 UA Color) AM) [facility] AND [id number] 07:00:00 Test Item Value Reference Range Interpretation Comments UA WBC (test code = UA WBC) 0-2 /HPF [facility] AND [id number] 07:00:00 Test Item Value Reference Range Interpretation Comments UA Bacteria (test code = UA Occasional /HPF Bacteria) [facility] AND [id number] 07:00:00 Test Item Value Reference Range Interpretation Comments UA RBC (test code = 0-2 /HPF See_Comment [Automa ezequiel message] The UA RBC) system which ge nerated this result tra nsmitted reference range : <=2. The reference range was not used to interpr et this result as grace l/abnormal. [facility] AND [id number] 07:00:00 Test Item Value Reference Range Interpretation Comments UA Urobilinogen (test code = UA 0.2 0.1-1.0 Urobilinogen) [facility] AND [id number] 07:00:00 Test Item Value Reference Range Interpretation Comments UA Nitrite (test code Negative (06/08/15 1:00 = UA Nitrite) AM) [facility] AND [id number] 07:00:00 Test Item Value Reference Range Interpretation Comments Micro? (test code = Performed (06/08/15 1:00 Micro?) AM) [facility] AND [id number] 07:00:00 Test Item Value Reference Range Interpretation Comments UA Leuk Est (test Negative (06/08/15 1:00 code = UA Leuk Est) AM) [facility] AND [id number] 07:00:00 Test Item Value Reference Range Interpretation Comments UA Sq Epi (test code = UA Sq Epi) Few /LPF [facility] AND [id number] 07:00:00 Test Item Value Reference Range Interpretation Comments UA Protein (test code Negative (06/08/15 1:00 = UA Protein) AM) [facility] AND [id number] 07:00:00 Test Item Value Reference Range Interpretation Comments UA Glucose (test code Negative (06/08/15 1:00 = UA Glucose) AM) [facility] AND [id number] 07:00:00 Test Item Value Reference Range Interpretation Comments UA Bili (test code = Negative *NA*(06/08/15 UA Bili) 1:00 AM) [facility] AND [id number] 07:00:00 Test Item Value Reference Range Interpretation Comments UA Ketones (test code = UA Ketones) 15 mg/dL [facility] AND [id number] 07:00:00 Test Item Value Reference Range Interpretation Comments UA Blood (test code = Trace *ABN*(06/08/15 UA Blood) 1:00 AM) [facility] AND [id number] 07:00:00 Test Item Value Reference Range Interpretation Comments UA pH (test code = UA pH) 6.0 1 5.0-8.0 [facility] AND [id number] 07:00:00 Test Item Value Reference Range Interpretation Comments UA Turbidity (test code = Clear (06/08/15 1:00 UA Turbidity) AM) [facility] AND [id number] 07:00:00 Test Item Value Reference Range Interpretation Comments UA Spec Grav (test code = UA Spec 1.015 1 Grav) [facility] AND [id number] 07:00:00 Test Item Value Reference Range Interpretation Comments UA Color (test code = Yellow *NA*(06/08/15 1:00 UA Color) AM) [facility] AND [id number] 07:00:00 Test Item Value Reference Range Interpretation Comments UA WBC (test code = UA WBC) 0-2 /HPF [facility] AND [id number] 07:00:00 Test Item Value Reference Range Interpretation Comments UA Bacteria (test code = UA Occasional /HPF Bacteria) [facility] AND [id number] 07:00:00 Test Item Value Reference Range Interpretation Comments UA RBC (test code = 0-2 /HPF See_Comment [Automa ezequiel message] The UA RBC) system which ge nerated this result tra nsmitted reference range : <=2. The reference range was not used to interpr et this result as grace l/abnormal. [facility] AND [id number] 07:00:00 Test Item Value Reference Range Interpretation Comments UA Urobilinogen (test code = UA 0.2 0.1-1.0 Urobilinogen) [facility] AND [id number] 07:00:00 Test Item Value Reference Range Interpretation Comments UA Nitrite (test code Negative (06/08/15 1:00 = UA Nitrite) AM) [facility] AND [id number] 07:00:00 Test Item Value Reference Range Interpretation Comments Micro? (test code = Performed (06/08/15 1:00 Micro?) AM) [facility] AND [id number] 07:00:00 Test Item Value Reference Range Interpretation Comments UA Leuk Est (test Negative (06/08/15 1:00 code = UA Leuk Est) AM) [facility] AND [id number] 07:00:00 Test Item Value Reference Range Interpretation Comments UA Sq Epi (test code = UA Sq Epi) Few /LPF [facility] AND [id number] 07:00:00 Test Item Value Reference Range Interpretation Comments UA Protein (test code Negative (06/08/15 1:00 = UA Protein) AM) [facility] AND [id number] 07:00:00 Test Item Value Reference Range Interpretation Comments UA Glucose (test code Negative (06/08/15 1:00 = UA Glucose) AM) [facility] AND [id number] 07:00:00 Test Item Value Reference Range Interpretation Comments UA Bili (test code = Negative *NA*(06/08/15 UA Bili) 1:00 AM) [facility] AND [id number] 07:00:00 Test Item Value Reference Range Interpretation Comments UA Ketones (test code = UA Ketones) 15 mg/dL [facility] AND [id number] 07:00:00 Test Item Value Reference Range Interpretation Comments UA Blood (test code = Trace *ABN*(06/08/15 UA Blood) 1:00 AM) [facility] AND [id number] 07:00:00 Test Item Value Reference Range Interpretation Comments UA pH (test code = UA pH) 6.0 1 5.0-8.0 [facility]2016-01-06 05:32:00 Test Item Value Reference Range Interpretation Comments Lipase Lvl (test code = Lipase Lvl) 91 73-393 [facility]2016-01-06 05:32:00 Test Item Value Reference Range Interpretation Comments B/C Ratio (test code = B/C Ratio) 9 6-25 [facility]2016-01-06 05:32:00 Test Item Value Reference Range Interpretation Comments AGAP (test code = AGAP) 12.8 10.0-20.0 [facility]2016-01-06 05:32:00 Test Item Value Reference Range Interpretation Comments Globulin (test code = Globulin) 3.7 2.0-4.0 [facility]2016-01-06 05:32:00 Test Item Value Reference Range Interpretation Comments A/G Ratio (test code = A/G Ratio) 1.1 0.7-1.6 [facility]2016-01-06 05:32:00 Test Item Value Reference Range Interpretation Comments eGFR (test code = eGFR) 77 [place] 570646-01-06 05:32:00 Test Item Value Reference Range Interpretation Comments Glucose Lvl (test code = Glucose Lvl) 114 70-99 [place] 570646-01-06 05:32:00 Test Item Value Reference Range Interpretation Comments BUN (test code = BUN) 11 7-22 [place] 570646-01-06 05:32:00 Test Item Value Reference Range Interpretation Comments AST (test code = AST) 23 See_Comment [Auto mated message] The system which ge nerated this result transmit ezequiel reference range : <=37. The reference range was not used to interpr et this result as grace l/abnormal. [facility]2016-01-06 05:32:00 Test Item Value Reference Range Interpretation Comments Alk Phos (test code = Alk Phos) 72 39-136 [facility]2016-01-06 05:32:00 Test Item Value Reference Range Interpretation Comments ALT (test code = ALT) 34 See_Comment [Auto mated message] The system which ge nerated this result transmit ezequiel reference range : <=65. The reference range was not used to interpr et this result as grace l/abnormal. [facility]2016-01-06 05:32:00 Test Item Value Reference Range Interpretation Comments Chloride Lvl (test code = Chloride Lvl) 102 95-109 [facility]2016-01-06 05:32:00 Test Item Value Reference Range Interpretation Comments Creatinine Lvl (test code = Creatinine 1.28 0.50-1.40 Lvl) [facility]2016-01-06 05:32:00 Test Item Value Reference Range Interpretation Comments Sodium Lvl (test code = Sodium Lvl) 135 135-145 [place] 570646-01-06 05:32:00 Test Item Value Reference Range Interpretation Comments Potassium Lvl (test code = Potassium 3.8 3.5-5.1 Lvl) [place] 570646-01-06 05:32:00 Test Item Value Reference Range Interpretation Comments Bili Total (test code = Bili Total) 0.5 0.2-1.3 [facility]2016-01-06 05:32:00 Test Item Value Reference Range Interpretation Comments Calcium Lvl (test code = Calcium Lvl) 8.5 8.5-10.5 [facility]2016-01-06 05:32:00 Test Item Value Reference Range Interpretation Comments CO2 (test code = CO2) 24 24-32 [facility]2016-01-06 05:32:00 Test Item Value Reference Range Interpretation Comments Albumin Lvl (test code = Albumin Lvl) 4.1 3.5-5.0 [facility]2016-01-06 05:32:00 Test Item Value Reference Range Interpretation Comments Total Protein (test code = Total 7.8 6.4-8.4 Protein) [facility]JjbnrzpAHTZLYCXNL1624-16-71 05:32:00 Test Item Value Reference Range Interpretation Comments Platelet (test code = Platelet) 196 133-450 [facility]JowelbmZKKJXQSHNR9307-86-39 05:32:00 Test Item Value Reference Range Interpretation Comments RDW (test code = RDW) 12.4 11.5-14.5 [facility]XxhketbIFGFQNXOZK3704-67-84 05:32:00 Test Item Value Reference Range Interpretation Comments MPV (test code = MPV) 10.1 7.4-10.4 [facility]KvtcceeKVDFWKSDIA6976-68-03 05:32:00 Test Item Value Reference Range Interpretation Comments MCH (test code = MCH) 30.6 pg 27.0-31.0 [facility]FhpslglZJIREBODMM2860-02-99 05:32:00 Test Item Value Reference Range Interpretation Comments MCV (test code = MCV) 92.6 80.0-94.0 [facility]ZkmzmqwNVGHPEZYUC1162-03-58 05:32:00 Test Item Value Reference Range Interpretation Comments Hct (test code = Hct) 45.9 42.0-54.0 [facility]GvaeyozKCGCMMMTWT5880-61-30 05:32:00 Test Item Value Reference Range Interpretation Comments Hgb (test code = Hgb) 15.2 14.0-18.0 [facility]PxbprryQPOXAGOQIB0467-63-08 05:32:00 Test Item Value Reference Range Interpretation Comments RBC (test code = RBC) 4.95 4.70-6.10 [facility]DgpoczeUDCUENMFGO4671-14-86 05:32:00 Test Item Value Reference Range Interpretation Comments WBC (test code = WBC) 15.2 3.7-10.4 [facility]RnmvqchBSVREXMLIK7901-90-60 05:32:00 Test Item Value Reference Range Interpretation Comments MCHC (test code = MCHC) 33.1 32.0-36.0 [facility]TjjwschQSGVTSEOUJ5247-28-07 05:32:00 Test Item Value Reference Range Interpretation Comments Monocytes # (test code 1.0 See_Comment [Aut omated message] The = Monocytes #) system which generated this result tra nsmitted reference range : <=0.8. The reference r tony was not used to int erpret this result as normal/abnormal . [facility]BngrodzLRHKNZOSRT8127-77-15 05:32:00 Test Item Value Reference Range Interpretation Comments Basophils # (test code 0.1 See_Comment [Aut omated message] The = Basophils #) system which generated this result tra nsmitted reference range : <=0.2. The reference r tony was not used to int erpret this result as normal/abnormal . [facility]SwtvgbcDRUWLLEMFJ6174-45-37 05:32:00 Test Item Value Reference Range Interpretation Comments Eosinophils (test code = 0.1 See_Comment [A utomated message] The Eosinophils) system which ge nerated this result tra nsmitted reference range : <=4.0. The reference r tony was not used to int erpret this result as normal/abnormal . [facility]meju[facility]BC[facility] 05:32:00 Test Item Value Reference Range Interpretation Comments Basophils (test code = 0.5 See_Comment [Aut omated message] The Basophils) system which ge nerated this result tra nsmitted reference range : <=1.0. The reference r tony was not used to int erpret this result as normal/abnormal . [facility]JdcgubvLIWIOSGLKH7377-93-26 05:32:00 Test Item Value Reference Range Interpretation Comments Segs-Bands # (test code = Segs-Bands #) 12.6 1.5-8.1 [facility]QtwbipaEGVMVUSNDW8136-38-75 05:32:00 Test Item Value Reference Range Interpretation Comments Lymphocytes (test code = Lymphocytes) 10.2 20.0-40.0 [facility]IjzdqbaBRBYBCZUUQ4715-39-01 05:32:00 Test Item Value Reference Range Interpretation Comments Monocytes (test code = Monocytes) 6.6 2.0-12.0 [facility]DvcrdjsWMSYZJYPQY9560-91-69 05:32:00 Test Item Value Reference Range Interpretation Comments Lymphocytes # (test code = Lymphocytes 1.6 1.0-5.5 #) [facility]LtxhcixKAARZUWOPT5279-06-09 05:32:00 Test Item Value Reference Range Interpretation Comments Segs (test code = Segs) 82.6 45.0-75.0 [place] 570646-01-06 05:32:00 Test Item Value Reference Range Interpretation Comments Lipase Lvl (test code = Lipase Lvl) 91 73-393 [facility]2016-01-06 05:32:00 Test Item Value Reference Range Interpretation Comments B/C Ratio (test code = B/C Ratio) 9 6-25 [place] 570646-01-06 05:32:00 Test Item Value Reference Range Interpretation Comments AGAP (test code = AGAP) 12.8 10.0-20.0 [facility]2016-01-06 05:32:00 Test Item Value Reference Range Interpretation Comments Globulin (test code = Globulin) 3.7 2.0-4.0 [facility]2016-01-06 05:32:00 Test Item Value Reference Range Interpretation Comments A/G Ratio (test code = A/G Ratio) 1.1 0.7-1.6 [facility]2016-01-06 05:32:00 Test Item Value Reference Range Interpretation Comments eGFR (test code = eGFR) 77 [facility]2016-01-06 05:32:00 Test Item Value Reference Range Interpretation Comments Glucose Lvl (test code = Glucose Lvl) 114 70-99 [facility]2016-01-06 05:32:00 Test Item Value Reference Range Interpretation Comments BUN (test code = BUN) 11 7-22 [place] 570646-01-06 05:32:00 Test Item Value Reference Range Interpretation Comments AST (test code = AST) 23 See_Comment [Auto mated message] The system which ge nerated this result transmit ezequiel reference range : <=37. The reference range was not used to interpr et this result as grace l/abnormal. [facility]2016-01-06 05:32:00 Test Item Value Reference Range Interpretation Comments Alk Phos (test code = Alk Phos) 72 39-136 [facility]2016-01-06 05:32:00 Test Item Value Reference Range Interpretation Comments ALT (test code = ALT) 34 See_Comment [Auto mated message] The system which ge nerated this result transmit ezequiel reference range : <=65. The reference range was not used to interpr et this result as grace l/abnormal. [facility]2016-01-06 05:32:00 Test Item Value Reference Range Interpretation Comments Chloride Lvl (test code = Chloride Lvl) 102 95-109 [facility]2016-01-06 05:32:00 Test Item Value Reference Range Interpretation Comments Creatinine Lvl (test code = Creatinine 1.28 0.50-1.40 Lvl) [facility]2016-01-06 05:32:00 Test Item Value Reference Range Interpretation Comments Sodium Lvl (test code = Sodium Lvl) 135 135-145 [facility]2016-01-06 05:32:00 Test Item Value Reference Range Interpretation Comments Potassium Lvl (test code = Potassium 3.8 3.5-5.1 Lvl) [facility]2016-01-06 05:32:00 Test Item Value Reference Range Interpretation Comments Bili Total (test code = Bili Total) 0.5 0.2-1.3 [facility]2016-01-06 05:32:00 Test Item Value Reference Range Interpretation Comments Calcium Lvl (test code = Calcium Lvl) 8.5 8.5-10.5 [facility]2016-01-06 05:32:00 Test Item Value Reference Range Interpretation Comments CO2 (test code = CO2) 24 24-32 [facility]2016-01-06 05:32:00 Test Item Value Reference Range Interpretation Comments Albumin Lvl (test code = Albumin Lvl) 4.1 3.5-5.0 [place] 570646-01-06 05:32:00 Test Item Value Reference Range Interpretation Comments Total Protein (test code = Total 7.8 6.4-8.4 Protein) [facility]ExygeugWYZUDUCUBO3901-20-75 05:32:00 Test Item Value Reference Range Interpretation Comments Platelet (test code = Platelet) 196 133-450 [facility]GjvppueCPYLBJUYWK9602-57-31 05:32:00 Test Item Value Reference Range Interpretation Comments RDW (test code = RDW) 12.4 11.5-14.5 [facility]GpfcjoiKWQUVCFHBB0757-53-56 05:32:00 Test Item Value Reference Range Interpretation Comments MPV (test code = MPV) 10.1 7.4-10.4 [facility]SoqjfvaCFXNCWNEKZ6806-05-61 05:32:00 Test Item Value Reference Range Interpretation Comments MCH (test code = MCH) 30.6 pg 27.0-31.0 [facility]UfxbyovQFVBVUNMGW8505-73-27 05:32:00 Test Item Value Reference Range Interpretation Comments MCV (test code = MCV) 92.6 80.0-94.0 [facility]FnbexarXKAPMSTHPT9025-58-42 05:32:00 Test Item Value Reference Range Interpretation Comments Hct (test code = Hct) 45.9 42.0-54.0 [facility]UwehkhjWHDRRYPAWG6172-20-84 05:32:00 Test Item Value Reference Range Interpretation Comments Hgb (test code = Hgb) 15.2 14.0-18.0 [facility]DzupntiBPFMRKIPYN9311-52-97 05:32:00 Test Item Value Reference Range Interpretation Comments RBC (test code = RBC) 4.95 4.70-6.10 [facility]JvgjqwyVTINXBRAPJ5738-09-34 05:32:00 Test Item Value Reference Range Interpretation Comments WBC (test code = WBC) 15.2 3.7-10.4 [facility]VlpistpDHNZLLTNLP5592-03-95 05:32:00 Test Item Value Reference Range Interpretation Comments MCHC (test code = MCHC) 33.1 32.0-36.0 [facility]YdnmepbPLUTAPEAGN4499-70-03 05:32:00 Test Item Value Reference Range Interpretation Comments Monocytes # (test code 1.0 See_Comment [Aut omated message] The = Monocytes #) system which generated this result tra nsmitted reference range : <=0.8. The reference r tony was not used to int erpret this result as normal/abnormal . [facility]KoimdpiYRGFLIPWRH6634-47-56 05:32:00 Test Item Value Reference Range Interpretation Comments Basophils # (test code 0.1 See_Comment [Aut omated message] The = Basophils #) system which generated this result tra nsmitted reference range : <=0.2. The reference r tony was not used to int erpret this result as normal/abnormal . [facility]ZkpbzehXHAPDZXPBB9093-28-85 05:32:00 Test Item Value Reference Range Interpretation Comments Eosinophils (test code = 0.1 See_Comment [A utomated message] The Eosinophils) system which ge nerated this result tra nsmitted reference range : <=4.0. The reference r tony was not used to int erpret this result as normal/abnormal . [facility]ZyogedvODEOXRJJXB0319-90-25 05:32:00 Test Item Value Reference Range Interpretation Comments Basophils (test code = 0.5 See_Comment [Aut omated message] The Basophils) system which ge nerated this result tra nsmitted reference range : <=1.0. The reference r tony was not used to int erpret this result as normal/abnormal . [facility]HkjuiacNTPRVJBPTW9394-93-31 05:32:00 Test Item Value Reference Range Interpretation Comments Segs-Bands # (test code = Segs-Bands #) 12.6 1.5-8.1 [facility]HqhfnysGGQLPNQYRX5499-77-44 05:32:00 Test Item Value Reference Range Interpretation Comments Lymphocytes (test code = Lymphocytes) 10.2 20.0-40.0 [facility]DwslwgcMGFMNHJVNL5390-15-86 05:32:00 Test Item Value Reference Range Interpretation Comments Monocytes (test code = Monocytes) 6.6 2.0-12.0 [facility]BcckxyvNMRDTICZZS9399-33-56 05:32:00 Test Item Value Reference Range Interpretation Comments Lymphocytes # (test code = Lymphocytes 1.6 1.0-5.5 #) [facility]GdjndxbCLPTXQJULY0447-11-76 05:32:00 Test Item Value Reference Range Interpretation Comments Segs (test code = Segs) 82.6 45.0-75.0 [facility]2015-11-19 05:53:00 Test Item Value Reference Range Interpretation Comments Bili Direct (test code 0.1 See_Comment [Aut omated message] The = Bili Direct) system which generated this result tra nsmitted reference range : <=0.3. The reference r tony was not used to int erpret this result as grace l/abnormal. [facility]2015-11-19 05:53:00 Test Item Value Reference Range Interpretation Comments Bili Total (test code = Bili Total) 0.4 0.2-1.3 [facility]2015-11-19 05:53:00 Test Item Value Reference Range Interpretation Comments eGFR (test code = eGFR) 94 [facility]2015-11-19 05:53:00 Test Item Value Reference Range Interpretation Comments Potassium Lvl (test code = Potassium 4.4 3.5-5.1 Lvl) [facility]2015-11-19 05:53:00 Test Item Value Reference Range Interpretation Comments Sodium Lvl (test code = Sodium Lvl) 145 135-145 [facility]2015-11-19 05:53:00 Test Item Value Reference Range Interpretation Comments Chloride Lvl (test code = Chloride Lvl) 110 95-109 [facility]2015-11-19 05:53:00 Test Item Value Reference Range Interpretation Comments Glucose Lvl (test code = Glucose Lvl) 75 70-99 [facility]2015-11-19 05:53:00 Test Item Value Reference Range Interpretation Comments Creatinine Lvl (test code = Creatinine 1.08 0.50-1.40 Lvl) [facility]2015-11-19 05:53:00 Test Item Value Reference Range Interpretation Comments BUN (test code = BUN) 12 7-22 [facility]2015-11-19 05:53:00 Test Item Value Reference Range Interpretation Comments AGAP (test code = AGAP) 8.4 10.0-20.0 [facility]2015-11-19 05:53:00 Test Item Value Reference Range Interpretation Comments CO2 (test code = CO2) 31 24-32 [facility]2015-11-19 05:53:00 Test Item Value Reference Range Interpretation Comments Calcium Lvl (test code = Calcium Lvl) 8.9 8.5-10.5 [facility]2015-11-19 05:53:00 Test Item Value Reference Range Interpretation Comments AST (test code = AST) 15 See_Comment [Auto mated message] The system which ge nerated this result transmit ezequiel reference range : <=37. The reference range was not used to interpr et this result as grace l/abnormal. [facility]2015-11-19 05:53:00 Test Item Value Reference Range Interpretation Comments A/G Ratio (test code = A/G Ratio) 1.2 0.7-1.6 [facility]2015-11-19 05:53:00 Test Item Value Reference Range Interpretation Comments Alk Phos (test code = Alk Phos) 61 39-136 [facility]2015-11-19 05:53:00 Test Item Value Reference Range Interpretation Comments ALT (test code = ALT) 34 See_Comment [Auto mated message] The system which ge nerated this result transmit ezequiel reference range : <=65. The reference range was not used to interpr et this result as grace l/abnormal. [facility]2015-11-19 05:53:00 Test Item Value Reference Range Interpretation Comments Albumin Lvl (test code = Albumin Lvl) 3.9 3.5-5.0 [facility]2015-11-19 05:53:00 Test Item Value Reference Range Interpretation Comments Total Protein (test code = Total 7.1 6.4-8.4 Protein) [facility]2015-11-19 05:53:00 Test Item Value Reference Range Interpretation Comments B/C Ratio (test code = B/C Ratio) 11 6-25 [facility]2015-11-19 05:53:00 Test Item Value Reference Range Interpretation Comments Globulin (test code = Globulin) 3.2 2.0-4.0 [facility]GvtiuaeEPLYXVNXUL3453-18-79 05:53:00 Test Item Value Reference Range Interpretation Comments Basophils # (test code 0.1 See_Comment [Aut omated message] The = Basophils #) system which generated this result tra nsmitted reference range : <=0.2. The reference r tony was not used to int erpret this result as normal/abnormal . [facility]AmhxtplWAICJTGRWH3840-31-91 05:53:00 Test Item Value Reference Range Interpretation Comments Eosinophils # (test code 0.8 See_Comment [A utomated message] The = Eosinophils #) system whic h generated this result tra nsmitted reference range : <=0.5. The reference r tony was not used to int erpret this result as normal/abnormal . [facility]KwpbivuGGHFXLBLGN0449-13-01 05:53:00 Test Item Value Reference Range Interpretation Comments Lymphocytes # (test code = Lymphocytes 3.3 1.0-5.5 #) [facility]QzhqxocDWJYELVKBY8030-10-34 05:53:00 Test Item Value Reference Range Interpretation Comments Segs-Bands # (test code = Segs-Bands #) 6.4 1.5-8.1 [facility]LknulxfTXEDUVMATZ8820-05-92 05:53:00 Test Item Value Reference Range Interpretation Comments Basophils (test code = 0.6 See_Comment [Aut omated message] The Basophils) system which ge nerated this result tra nsmitted reference range : <=1.0. The reference r tony was not used to int erpret this result as normal/abnormal . [facility]UoelifwXKIKAMJCBY9081-17-73 05:53:00 Test Item Value Reference Range Interpretation Comments Eosinophils (test code = 7.4 See_Comment [A utomated message] The Eosinophils) system which ge nerated this result tra nsmitted reference range : <=4.0. The reference r tony was not used to int erpret this result as normal/abnormal . [facility]WouzdqtEWWWIQZPZC8650-02-57 05:53:00 Test Item Value Reference Range Interpretation Comments Monocytes # (test code 0.6 See_Comment [Aut omated message] The = Monocytes #) system which generated this result tra nsmitted reference range : <=0.8. The reference r tony was not used to int erpret this result as normal/abnormal . [facility]HslctrzLWTHIGZEQS7879-53-05 05:53:00 Test Item Value Reference Range Interpretation Comments Segs (test code = Segs) 57.4 45.0-75.0 [facility]NarckxkMVSUXTBYWK4479-38-57 05:53:00 Test Item Value Reference Range Interpretation Comments Lymphocytes (test code = Lymphocytes) 29.2 20.0-40.0 [facility]GktuyqgQTMUWSJOCY4966-74-62 05:53:00 Test Item Value Reference Range Interpretation Comments Monocytes (test code = Monocytes) 5.4 2.0-12.0 [facility]LvnvdxdQIIQDEAUJM6063-92-87 05:53:00 Test Item Value Reference Range Interpretation Comments MCV (test code = MCV) 93.6 80.0-94.0 [facility]MkhxuooMDATESKUGA4550-08-42 05:53:00 Test Item Value Reference Range Interpretation Comments Hct (test code = Hct) 43.4 42.0-54.0 [facility]HmmilufVLZVTPNNMW1319-49-45 05:53:00 Test Item Value Reference Range Interpretation Comments Hgb (test code = Hgb) 14.2 14.0-18.0 [facility]OvpuvllRYXSTCIWRH0244-78-97 05:53:00 Test Item Value Reference Range Interpretation Comments RBC (test code = RBC) 4.64 4.70-6.10 [facility]SggefulIUSFTSDLLP9740-11-90 05:53:00 Test Item Value Reference Range Interpretation Comments MCHC (test code = MCHC) 32.8 32.0-36.0 [facility]QhuexlxLMEEBWNQFM4813-86-12 05:53:00 Test Item Value Reference Range Interpretation Comments MCH (test code = MCH) 30.7 pg 27.0-31.0 [facility]ZcnaagoDKGTMJYKFU9659-69-30 05:53:00 Test Item Value Reference Range Interpretation Comments RDW (test code = RDW) 13.1 11.5-14.5 [facility]UpbtvpzCOLIPGZMWS3485-08-54 05:53:00 Test Item Value Reference Range Interpretation Comments MPV (test code = MPV) 9.4 7.4-10.4 [facility]XfwrrmhWVPYUPSRUJ5661-34-06 05:53:00 Test Item Value Reference Range Interpretation Comments Platelet (test code = Platelet) 220 133-450 [facility]KqfgcfhGZOUNHWRXK6704-97-44 05:53:00 Test Item Value Reference Range Interpretation Comments WBC (test code = WBC) 11.1 3.7-10.4 [facility]WrcpxqbOSBRJUUZEA5549-89-49 05:53:00 Test Item Value Reference Range Interpretation Comments PT (test code = PT) 13.5 s 12.0-14.7 [facility]BjdphrbUBCQLGBXCE8428-49-97 05:53:00 Test Item Value Reference Range Interpretation Comments INR (test code = INR) 1.00 0.85-1.17 [facility]IvcxcwdOGFMJNEEXY1127-04-46 05:53:00 Test Item Value Reference Range Interpretation Comments PTT (test code = PTT) 33.4 s 22.9-35.8 [facility] 05:53:00 Test Item Value Reference Range Interpretation Comments CDC HIV 4th GEN (test Negative (04/20/15 11:53 code = CDC HIV 4th PM) GEN) [facility]WE5900-25-19 05:53:00 Test Item Value Reference Range Interpretation Comments Salicylate Lvl (test no gt See_Comment [Autom ated message] The code = Salicylate Lvl) syste m which generated this result tra nsmitted reference range : <=30.0. The reference r tony was not used to int erpret this result as normal/abnormal . [place] 44268015-11-19 05:53:00 Test Item Value Reference Range Interpretation Comments Acetaminoph Lvl (test code = no gt 10-20 Acetaminoph Lvl) [facility]2015-11-19 05:53:00 Test Item Value Reference Range Interpretation Comments Bili Direct (test code 0.1 See_Comment [Aut omated message] The = Bili Direct) system which generated this result tra nsmitted reference range : <=0.3. The reference r tony was not used to int erpret this result as grace l/abnormal. [facility]2015-11-19 05:53:00 Test Item Value Reference Range Interpretation Comments Bili Total (test code = Bili Total) 0.4 0.2-1.3 [facility]2015-11-19 05:53:00 Test Item Value Reference Range Interpretation Comments eGFR (test code = eGFR) 94 [facility]2015-11-19 05:53:00 Test Item Value Reference Range Interpretation Comments Potassium Lvl (test code = Potassium 4.4 3.5-5.1 Lvl) [facility]2015-11-19 05:53:00 Test Item Value Reference Range Interpretation Comments Sodium Lvl (test code = Sodium Lvl) 145 135-145 [facility]2015-11-19 05:53:00 Test Item Value Reference Range Interpretation Comments Chloride Lvl (test code = Chloride Lvl) 110 95-109 [facility]2015-11-19 05:53:00 Test Item Value Reference Range Interpretation Comments Glucose Lvl (test code = Glucose Lvl) 75 70-99 [facility]2015-11-19 05:53:00 Test Item Value Reference Range Interpretation Comments Creatinine Lvl (test code = Creatinine 1.08 0.50-1.40 Lvl) [facility]2015-11-19 05:53:00 Test Item Value Reference Range Interpretation Comments BUN (test code = BUN) 12 7-22 [facility]2015-11-19 05:53:00 Test Item Value Reference Range Interpretation Comments AGAP (test code = AGAP) 8.4 10.0-20.0 [facility]2015-11-19 05:53:00 Test Item Value Reference Range Interpretation Comments CO2 (test code = CO2) 31 24-32 [facility]2015-11-19 05:53:00 Test Item Value Reference Range Interpretation Comments Calcium Lvl (test code = Calcium Lvl) 8.9 8.5-10.5 [facility]2015-11-19 05:53:00 Test Item Value Reference Range Interpretation Comments AST (test code = AST) 15 See_Comment [Auto mated message] The system which ge nerated this result transmit ezequiel reference range : <=37. The reference range was not used to interpr et this result as grace l/abnormal. [facility]2015-11-19 05:53:00 Test Item Value Reference Range Interpretation Comments A/G Ratio (test code = A/G Ratio) 1.2 0.7-1.6 [facility]2015-11-19 05:53:00 Test Item Value Reference Range Interpretation Comments Alk Phos (test code = Alk Phos) 61 39-136 [facility]2015-11-19 05:53:00 Test Item Value Reference Range Interpretation Comments ALT (test code = ALT) 34 See_Comment [Auto mated message] The system which ge nerated this result transmit ezequiel reference range : <=65. The reference range was not used to interpr et this result as grace l/abnormal. [place] 570645-11-19 05:53:00 Test Item Value Reference Range Interpretation Comments Albumin Lvl (test code = Albumin Lvl) 3.9 3.5-5.0 [facility]2015-11-19 05:53:00 Test Item Value Reference Range Interpretation Comments Total Protein (test code = Total 7.1 6.4-8.4 Protein) [facility]2015-11-19 05:53:00 Test Item Value Reference Range Interpretation Comments B/C Ratio (test code = B/C Ratio) 11 25 [facility]2015-11-19 05:53:00 Test Item Value Reference Range Interpretation Comments Globulin (test code = Globulin) 3.2 2.0-4.0 [facility]AgwccowIGNXZNXEUW6048-27-04 05:53:00 Test Item Value Reference Range Interpretation Comments Basophils # (test code 0.1 See_Comment [Aut omated message] The = Basophils #) system which generated this result tra nsmitted reference range : <=0.2. The reference r tony was not used to int erpret this result as normal/abnormal . [facility]UohefbxVFATBOJJGK6752-49-14 05:53:00 Test Item Value Reference Range Interpretation Comments Eosinophils # (test code 0.8 See_Comment [A utomated message] The = Eosinophils #) system whic h generated this result tra nsmitted reference range : <=0.5. The reference r tony was not used to int erpret this result as normal/abnormal . [facility]GspxjheGIIQUGLUXM8834-11-65 05:53:00 Test Item Value Reference Range Interpretation Comments Lymphocytes # (test code = Lymphocytes 3.3 1.0-5.5 #) [facility]AqpgjvpDJGSQDCCCV4035-02-08 05:53:00 Test Item Value Reference Range Interpretation Comments Segs-Bands # (test code = Segs-Bands #) 6.4 1.5-8.1 [facility]PpfujslKVOKGLOBWD8184-06-37 05:53:00 Test Item Value Reference Range Interpretation Comments Basophils (test code = 0.6 See_Comment [Aut omated message] The Basophils) system which ge nerated this result tra nsmitted reference range : <=1.0. The reference r tony was not used to int erpret this result as normal/abnormal . [facility]WmauqlbBARMRSQDUG2572-21-08 05:53:00 Test Item Value Reference Range Interpretation Comments Eosinophils (test code = 7.4 See_Comment [A utomated message] The Eosinophils) system which ge nerated this result tra nsmitted reference range : <=4.0. The reference r tony was not used to int erpret this result as normal/abnormal . [facility]FczqrngZARZZWLHHH1467-02-49 05:53:00 Test Item Value Reference Range Interpretation Comments Monocytes # (test code 0.6 See_Comment [Aut omated message] The = Monocytes #) system which generated this result tra nsmitted reference range : <=0.8. The reference r tony was not used to int erpret this result as normal/abnormal . [facility]DrwqnyeOLGPVSQAZH2534-42-75 05:53:00 Test Item Value Reference Range Interpretation Comments Segs (test code = Segs) 57.4 45.0-75.0 [facility]FuyrlssRNGCPOBUFE5308-51-26 05:53:00 Test Item Value Reference Range Interpretation Comments Lymphocytes (test code = Lymphocytes) 29.2 20.0-40.0 [facility]TnlemffFJCGBIHTAM5907-86-40 05:53:00 Test Item Value Reference Range Interpretation Comments Monocytes (test code = Monocytes) 5.4 2.0-12.0 [facility]EkjlwvwEYQPKDEOTO2561-33-91 05:53:00 Test Item Value Reference Range Interpretation Comments MCV (test code = MCV) 93.6 80.0-94.0 [facility]IypwoytNTBLPXCBGU9500-17-81 05:53:00 Test Item Value Reference Range Interpretation Comments Hct (test code = Hct) 43.4 42.0-54.0 [facility]GdvkccmIFOJEWFRWV3719-00-25 05:53:00 Test Item Value Reference Range Interpretation Comments Hgb (test code = Hgb) 14.2 14.0-18.0 [facility]GjsimwbXZGQOVQKNF6377-75-07 05:53:00 Test Item Value Reference Range Interpretation Comments RBC (test code = RBC) 4.64 4.70-6.10 [facility]HnruovuKMINOERSDL5016-90-18 05:53:00 Test Item Value Reference Range Interpretation Comments MCHC (test code = MCHC) 32.8 32.0-36.0 [facility]GdkogalYOJLONHDRH4955-91-46 05:53:00 Test Item Value Reference Range Interpretation Comments MCH (test code = MCH) 30.7 pg 27.0-31.0 [facility]YyczyuaYZOFWKCFQL3806-15-60 05:53:00 Test Item Value Reference Range Interpretation Comments RDW (test code = RDW) 13.1 11.5-14.5 [facility]oj[facility]syCLNHDTTSQD2710-97-15 05:53:00 Test Item Value Reference Range Interpretation Comments MPV (test code = MPV) 9.4 7.4-10.4 [facility]ybwcysCJCOXFWWWQ0179-54-82 05:53:00 Test Item Value Reference Range Interpretation Comments Platelet (test code = Platelet) 220 133-450 [facility]ZhdjyefNHURPTUHTK7843-88-11 05:53:00 Test Item Value Reference Range Interpretation Comments WBC (test code = WBC) 11.1 3.7-10.4 [facility] CenterZkzsqxrEWBMWCCENM1695-83-76 05:53:00 Test Item Value Reference Range Interpretation Comments PT (test code = PT) 13.5 s 12.0-14.7 [facility] CenterUqqnuvwWSJANTSBLS6173-29-46 05:53:00 Test Item Value Reference Range Interpretation Comments INR (test code = INR) 1.00 0.85-1.17 [facility]EqngqkvTWMGFPYZYV5243-88-28 05:53:00 Test Item Value Reference Range Interpretation Comments PTT (test code = PTT) 33.4 s 22.9-35.8 [facility] HospitalWnnuxlgZZRGHQFHVJ4658-51-15 05:53:00 Test Item Value Reference Range Interpretation Comments [facility] HIV 4th GEN (test Negative (04/20/15 11:53 code = CDC HIV 4th PM) GEN) [facility]XCWXGCNQRF1770-81-96 05:53:00 Test Item Value Reference Range Interpretation Comments Salicylate Lvl (test no gt See_Comment [Autom ated message] The code = Salicylate Lvl) syste m which generated this result tra nsmitted reference range : <=30.0. The reference r tony was not used to int erpret this result as normal/abnormal . [facility] HospitalBjwueybDUBPJINGSV4653-20-18 05:53:00 Test Item Value Reference Range Interpretation Comments Acetaminoph Lvl (test code = no gt 10-20 Acetaminoph Lvl) [facility]FkgwkuhYGXCBCBHCS1588-10-55 03:30:00 Test Item Value Reference Range Interpretation Comments Etoh (%) (test code = Etoh (%)) no gt [facility] HospitalMeisaoxUTRAJXYYZR5856-40-32 03:30:00 Test Item Value Reference Range Interpretation Comments Ethanol Lvl (test code = Ethanol Lvl) no gt [facility] [id number] 03:30:00 Test Item Value Reference Range Interpretation Comments Etoh (%) (test code = Etoh (%)) no gt [facility]bhvuqPKMIMYAZSF7512-44-49 03:30:00 Test Item Value Reference Range Interpretation Comments Ethanol Lvl (test code = Ethanol Lvl) no gt [facility] [id number] 03:23:00 Test Item Value Reference Range Interpretation Comments UDS Note (test code = See Note 3(01/20/14 UDS Note) 10:23 PM) [facility] [id number] 03:23:00 Test Item Value Reference Range Interpretation Comments U Benzodia Scr (test Positive *ABN*(01/20/14 code = U Benzodia Scr) 10:23 PM) [facility] [id number] 03:23:00 Test Item Value Reference Range Interpretation Comments U Cocaine Scr (test Negative *NA*(01/20/14 code = U Cocaine Scr) 10:23 PM) [facility] [id number] 03:23:00 Test Item Value Reference Range Interpretation Comments U Cannab Scr (test Negative *NA*(01/20/14 code = U Cannab Scr) 10:23 PM) [facility] [id number] 03:23:00 Test Item Value Reference Range Interpretation Comments U Opiate Scr (test Positive *ABN*(01/20/14 code = U Opiate Scr) 10:23 PM) [facility] [id number] 03:23:00 Test Item Value Reference Range Interpretation Comments U Phencyc Scr (test Negative *NA*(01/20/14 code = U Phencyc Scr) 10:23 PM) [facility] [id number] 03:23:00 Test Item Value Reference Range Interpretation Comments U Amph Scr (test code Negative *NA*(01/20/14 = U Amph Scr) 10:23 PM) [facility] [id number] 03:23:00 Test Item Value Reference Range Interpretation Comments U Nita Scr (test code Negative *NA*(01/20/14 = U Nita Scr) 10:23 PM) [facility] [id number] 03:23:00 Test Item Value Reference Range Interpretation Comments UA Bili (test code = Small 6*ABN*(01/20/14 UA Bili) 10:23 PM) [facility] [id number] 03:23:00 Test Item Value Reference Range Interpretation Comments UA Protein (test code Negative (01/20/14 10:23 = UA Protein) PM) [facility] AND [id number] 03:23:00 Test Item Value Reference Range Interpretation Comments UA Blood (test code = Negative (01/20/14 10:23 UA Blood) PM) [facility] AND [id number] 03:23:00 Test Item Value Reference Range Interpretation Comments UA Urobilinogen (test code = UA 1.0 0.1-1.0 Urobilinogen) [facility] AND [id number] 03:23:00 Test Item Value Reference Range Interpretation Comments UA Nitrite (test code Negative (01/20/14 10:23 = UA Nitrite) PM) [facility] AND [id number] 03:23:00 Test Item Value Reference Range Interpretation Comments UA Glucose (test code Negative (01/20/14 10:23 = UA Glucose) PM) [facility] AND [id number] 03:23:00 Test Item Value Reference Range Interpretation Comments UA Ketones (test code = UA Ketones) 15 mg/dL [facility] AND [id number] 03:23:00 Test Item Value Reference Range Interpretation Comments UA Bacteria (test code = UA Occasional /HPF Bacteria) [facility] AND [id number] 03:23:00 Test Item Value Reference Range Interpretation Comments UA WBC (test code = UA WBC) 0-2 /HPF [facility] AND [id number] 03:23:00 Test Item Value Reference Range Interpretation Comments UA RBC (test None Seen See_Comment [Automated mes aditya] code = UA RBC) (01/20/14 10:23 The system which PM) generated this result transmitted ref erence range: <=2. The reference range was not used to int erpret this result as normal/abnormal . [facility] AND [id number] 03:23:00 Test Item Value Reference Range Interpretation Comments UA Sq Epi (test code = UA Sq Occasional /LPF Epi) [facility] [id number] 03:23:00 Test Item Value Reference Range Interpretation Comments Micro? (test code = Performed (01/20/14 10:23 Micro?) PM) [facility] [id number] 03:23:00 Test Item Value Reference Range Interpretation Comments UA Leuk Est (test Negative (01/20/14 10:23 code = UA Leuk Est) PM) [facility] [id number] 03:23:00 Test Item Value Reference Range Interpretation Comments UA pH (test code = UA pH) 6.0 1 5.0-8.0 [facility] [id number] 03:23:00 Test Item Value Reference Range Interpretation Comments UA Spec Grav (test >=1.030 *ABN*(01/20/14 code = UA Spec Grav) 10:23 PM) [facility] [id number] 03:23:00 Test Item Value Reference Range Interpretation Comments UA Color (test code = Yellow *NA*(01/20/14 UA Color) 10:23 PM) [facility] [id number] 03:23:00 Test Item Value Reference Range Interpretation Comments UA Turbidity (test code = Clear (01/20/14 10:23 UA Turbidity) PM) [facility] [id number] 03:23:00 Test Item Value Reference Range Interpretation Comments UDS Note (test code = See Note 3(01/20/14 UDS Note) 10:23 PM) [facility] [id number] 03:23:00 Test Item Value Reference Range Interpretation Comments U Benzodia Scr (test Positive *ABN*(01/20/14 code = U Benzodia Scr) 10:23 PM) [facility] [id number] 03:23:00 Test Item Value Reference Range Interpretation Comments U Cocaine Scr (test Negative *NA*(01/20/14 code = U Cocaine Scr) 10:23 PM) [facility] [id number] 03:23:00 Test Item Value Reference Range Interpretation Comments U Cannab Scr (test Negative *NA*(01/20/14 code = U Cannab Scr) 10:23 PM) [facility] [id number] 03:23:00 Test Item Value Reference Range Interpretation Comments U Opiate Scr (test Positive *ABN*(01/20/14 code = U Opiate Scr) 10:23 PM) [facility] [id number] 03:23:00 Test Item Value Reference Range Interpretation Comments U Phencyc Scr (test Negative *NA*(01/20/14 code = U Phencyc Scr) 10:23 PM) [facility] [id number] 03:23:00 Test Item Value Reference Range Interpretation Comments U Amph Scr (test code Negative *NA*(01/20/14 = U Amph Scr) 10:23 PM) [facility] [id number] 03:23:00 Test Item Value Reference Range Interpretation Comments U Nita Scr (test code Negative *NA*(01/20/14 = U Nita Scr) 10:23 PM) [facility] [id number] 03:23:00 Test Item Value Reference Range Interpretation Comments UA Bili (test code = Small 6*ABN*(01/20/14 UA Bili) 10:23 PM) [facility] [id number] 03:23:00 Test Item Value Reference Range Interpretation Comments UA Protein (test code Negative (01/20/14 10:23 = UA Protein) PM) [facility] [id number] 03:23:00 Test Item Value Reference Range Interpretation Comments UA Blood (test code = Negative (01/20/14 10:23 UA Blood) PM) [facility] [id number] 03:23:00 Test Item Value Reference Range Interpretation Comments UA Urobilinogen (test code = UA 1.0 0.1-1.0 Urobilinogen) [facility] [id number] 03:23:00 Test Item Value Reference Range Interpretation Comments UA Nitrite (test code Negative (01/20/14 10:23 = UA Nitrite) PM) [facility] [id number] 03:23:00 Test Item Value Reference Range Interpretation Comments UA Glucose (test code Negative (01/20/14 10:23 = UA Glucose) PM) [facility] [id number] 03:23:00 Test Item Value Reference Range Interpretation Comments UA Ketones (test code = UA Ketones) 15 mg/dL [facility] AND [id number] 03:23:00 Test Item Value Reference Range Interpretation Comments UA Bacteria (test code = UA Occasional /HPF Bacteria) [facility] AND [id number] 03:23:00 Test Item Value Reference Range Interpretation Comments UA WBC (test code = UA WBC) 0-2 /HPF [facility] AND [id number] 03:23:00 Test Item Value Reference Range Interpretation Comments UA RBC (test None Seen See_Comment [Automated mes aditya] code = UA RBC) (01/20/14 10:23 The system which PM) generated this result transmitted ref erence range: <=2. The reference range was not used to int erpret this result as normal/abnormal . [facility] AND [id number] 03:23:00 Test Item Value Reference Range Interpretation Comments UA Sq Epi (test code = UA Sq Occasional /LPF Epi) [facility] AND [id number] 03:23:00 Test Item Value Reference Range Interpretation Comments Micro? (test code = Performed (01/20/14 10:23 Micro?) PM) [facility] AND [id number] 03:23:00 Test Item Value Reference Range Interpretation Comments UA Leuk Est (test Negative (01/20/14 10:23 code = UA Leuk Est) PM) [facility] AND [id number] 03:23:00 Test Item Value Reference Range Interpretation Comments UA pH (test code = UA pH) 6.0 1 5.0-8.0 [facility] AND [id number] 03:23:00 Test Item Value Reference Range Interpretation Comments UA Spec Grav (test >=1.030 *ABN*(01/20/14 code = UA Spec Grav) 10:23 PM) [facility] AND [id number] 03:23:00 Test Item Value Reference Range Interpretation Comments UA Color (test code = Yellow *NA*(01/20/14 UA Color) 10:23 PM) [facility] AND [id number] 03:23:00 Test Item Value Reference Range Interpretation Comments UA Turbidity (test code = Clear (8/20/14 10:23 UA Turbidity) PM) [facility]2014-08-21 02:25:00 Test Item Value Reference Range Interpretation Comments Lipase Lvl (test code = Lipase Lvl) 110 73-393 [facility]2014-08-21 02:25:00 Test Item Value Reference Range Interpretation Comments Amylase Lvl (test code = Amylase Lvl) 50 25-115 [place] [address]-08-21 02:25:00 Test Item Value Reference Range Interpretation Comments A/G Ratio (test code = A/G Ratio) 1.4 0.7-1.6 [place] [id number] 02:25:00 Test Item Value Reference Range Interpretation Comments AGAP (test code = AGAP) 10.4 10.0-20.0 [place] 570644-08-21 02:25:00 Test Item Value Reference Range Interpretation Comments B/C Ratio (test code = B/C Ratio) 10 6-25 [place] 570644-08-21 02:25:00 Test Item Value Reference Range Interpretation Comments Globulin (test code = Globulin) 3.1 2.0-4.0 [place] 570644-08-21 02:25:00 Test Item Value Reference Range Interpretation Comments eGFR (test code = eGFR) 84 [facility]2014-08-21 02:25:00 Test Item Value Reference Range Interpretation Comments CO2 (test code = CO2) 26 24-32 [place] 570644-08-21 02:25:00 Test Item Value Reference Range Interpretation Comments Albumin Lvl (test code = Albumin Lvl) 4.3 3.5-5.0 [place] 570644-08-21 02:25:00 Test Item Value Reference Range Interpretation Comments ALT (test code = ALT) 28 See_Comment [Auto mated message] The system which ge nerated this result transmit ezequiel reference range : <=65. The reference range was not used to interpr et this result as grace l/abnormal. [facility]2014-08-21 02:25:00 Test Item Value Reference Range Interpretation Comments AST (test code = AST) 14 See_Comment [Auto mated message] The system which ge nerated this result transmit ezequiel reference range : <=37. The reference range was not used to interpr et this result as grace l/abnormal. [facility]2014-08-21 02:25:00 Test Item Value Reference Range Interpretation Comments Total Protein (test code = Total 7.4 6.4-8.4 Protein) [facility]2014-08-21 02:25:00 Test Item Value Reference Range Interpretation Comments Chloride Lvl (test code = Chloride Lvl) 107 95-109 [facility]2014-08-21 02:25:00 Test Item Value Reference Range Interpretation Comments Potassium Lvl (test code = Potassium 3.4 3.5-5.1 Lvl) [facility]2014-08-21 02:25:00 Test Item Value Reference Range Interpretation Comments Calcium Lvl (test code = Calcium Lvl) 9.2 8.5-10.5 [facility]2014-08-21 02:25:00 Test Item Value Reference Range Interpretation Comments Alk Phos (test code = Alk Phos) 64 39-136 [facility]2014-08-21 02:25:00 Test Item Value Reference Range Interpretation Comments Bili Total (test code = Bili Total) 0.8 0.2-1.3 [facility]2014-08-21 02:25:00 Test Item Value Reference Range Interpretation Comments Sodium Lvl (test code = Sodium Lvl) 140 135-145 [facility]2014-08-21 02:25:00 Test Item Value Reference Range Interpretation Comments Glucose Lvl (test code = Glucose Lvl) 111 70-99 [facility]2014-08-21 02:25:00 Test Item Value Reference Range Interpretation Comments Creatinine Lvl (test code = Creatinine 1.2 0.5-1.4 Lvl) [facility]2014-08-21 02:25:00 Test Item Value Reference Range Interpretation Comments BUN (test code = BUN) 12 7-22 [facility]NN[facility]INTLU5080[facility]-28 02:25:00 Test Item Value Reference Range Interpretation Comments MCV (test code = MCV) 93.4 80.0-94.0 [facility]WbgugnkIFKPJROAGK6698-09-46 02:25:00 Test Item Value Reference Range Interpretation Comments MCHC (test code = MCHC) 34.3 32.0-36.0 [facility]FsbsancLWFBWAFTAC5906-86-79 02:25:00 Test Item Value Reference Range Interpretation Comments MCH (test code = MCH) 32.1 pg 27.0-31.0 [facility]UvlgyevYGYMAJKALV3967-32-78 02:25:00 Test Item Value Reference Range Interpretation Comments RDW (test code = RDW) 13.4 11.5-14.5 [facility]EzlwltzBGGIRDSDRE7737-93-59 02:25:00 Test Item Value Reference Range Interpretation Comments Platelet (test code = Platelet) 184 133-450 [facility]KhympzsVMVZAAYOXE0145-61-34 02:25:00 Test Item Value Reference Range Interpretation Comments MPV (test code = MPV) 9.7 7.4-10.4 [facility]WmxjvdiJGVYWFSWKU7984-63-11 02:25:00 Test Item Value Reference Range Interpretation Comments RBC (test code = RBC) 4.82 4.70-6.10 [facility]EenpczvDFVXWPKHLP9017-22-93 02:25:00 Test Item Value Reference Range Interpretation Comments Hgb (test code = Hgb) 15.5 14.0-18.0 [facility]DrplfojXUSPSLXLSB0843-13-78 02:25:00 Test Item Value Reference Range Interpretation Comments WBC (test code = WBC) 9.8 3.7-10.4 [facility]McyrhkaSXJFRWMWLG3130-43-23 02:25:00 Test Item Value Reference Range Interpretation Comments Hct (test code = Hct) 45.1 42.0-54.0 [facility]IdrfvpzZRDQVKECJX6440-66-57 02:25:00 Test Item Value Reference Range Interpretation Comments PTT (test code = PTT) 33.2 s 22.9-35.8 [facility]MgempolJIDIZOEFRR5533-37-41 02:25:00 Test Item Value Reference Range Interpretation Comments PT (test code = PT) 12.9 s 12.0-14.7 [facility]HpehfmmOBTCXKGZDH9248-62-99 02:25:00 Test Item Value Reference Range Interpretation Comments INR (test code = INR) 0.98 0.85-1.17 [facility]RzlbwswASXSLAOSVP5342-51-98 02:25:00 Test Item Value Reference Range Interpretation Comments Monocytes # (test code 0.9 See_Comment [Aut omated message] The = Monocytes #) system which generated this result tra nsmitted reference range : <=0.8. The reference r tony was not used to int erpret this result as normal/abnormal . [facility]DqxcjucCTUUTYGFVJ8161-77-00 02:25:00 Test Item Value Reference Range Interpretation Comments Lymphocytes # (test code = Lymphocytes 4.1 1.0-5.5 #) [facility]HgqdxboOSWESLQRLX3154-95-24 02:25:00 Test Item Value Reference Range Interpretation Comments Segs-Bands # (test code = Segs-Bands #) 4.5 1.5-8.1 [facility]SdwkillCFOYGWFVYQ4313-79-14 02:25:00 Test Item Value Reference Range Interpretation Comments Basophils # (test code 0.1 See_Comment [Aut omated message] The = Basophils #) system which generated this result tra nsmitted reference range : <=0.2. The reference r tony was not used to int erpret this result as normal/abnormal . [facility]NepacnfGQLFTPRQFC2753-08-26 02:25:00 Test Item Value Reference Range Interpretation Comments Eosinophils # (test code 0.2 See_Comment [A utomated message] The = Eosinophils #) system whic h generated this result tra nsmitted reference range : <=0.5. The reference r tony was not used to int erpret this result as normal/abnormal . [facility]MycuhrlOLOOYNXJKM9864-89-46 02:25:00 Test Item Value Reference Range Interpretation Comments Segs (test code = Segs) 46.2 45.0-75.0 [facility]IjxzuqdHISVPKZRZW9990-19-63 02:25:00 Test Item Value Reference Range Interpretation Comments Eosinophils (test code = 1.6 See_Comment [A utomated message] The Eosinophils) system which ge nerated this result tra nsmitted reference range : <=4.0. The reference r tony was not used to int erpret this result as normal/abnormal . [facility]OpqhvzlUWWISTGICT1783-81-52 02:25:00 Test Item Value Reference Range Interpretation Comments Lymphocytes (test code = Lymphocytes) 42.3 20.0-40.0 [facility]MbyfnckODNRRKNSZJ6694-66-69 02:25:00 Test Item Value Reference Range Interpretation Comments Basophils (test code = 0.7 See_Comment [Aut omated message] The Basophils) system which ge nerated this result tra nsmitted reference range : <=1.0. The reference r tony was not used to int erpret this result as normal/abnormal . [facility] HospitalMonfdekMJXNCZTQKN8117-16-70 02:25:00 Test Item Value Reference Range Interpretation Comments Monocytes (test code = Monocytes) 9.2 2.0-12.0 [facility] HospitalUxolvjeDNHWUFNVJM3004-26-74 02:25:00 Test Item Value Reference Range Interpretation Comments CDC HIV 4th GEN (test Negative (01/20/14 9:25 code = CDC HIV 4th PM) GEN) [facility]2014-08-21 02:25:00 Test Item Value Reference Range Interpretation Comments Lipase Lvl (test code = Lipase Lvl) 110 73-393 [facility]2014-08-21 02:25:00 Test Item Value Reference Range Interpretation Comments Amylase Lvl (test code = Amylase Lvl) 50 25-115 [facility]2014-08-21 02:25:00 Test Item Value Reference Range Interpretation Comments A/G Ratio (test code = A/G Ratio) 1.4 0.7-1.6 [facility]2014-08-21 02:25:00 Test Item Value Reference Range Interpretation Comments AGAP (test code = AGAP) 10.4 10.0-20.0 [facility]2014-08-21 02:25:00 Test Item Value Reference Range Interpretation Comments B/C Ratio (test code = B/C Ratio) 10 6-25 [facility]2014-08-21 02:25:00 Test Item Value Reference Range Interpretation Comments Globulin (test code = Globulin) 3.1 2.0-4.0 [facility]2014-08-21 02:25:00 Test Item Value Reference Range Interpretation Comments eGFR (test code = eGFR) 84 [facility]2014-08-21 02:25:00 Test Item Value Reference Range Interpretation Comments CO2 (test code = CO2) 26 24-32 [facility]2014-08-21 02:25:00 Test Item Value Reference Range Interpretation Comments Albumin Lvl (test code = Albumin Lvl) 4.3 3.5-5.0 [facility]2014-08-21 02:25:00 Test Item Value Reference Range Interpretation Comments ALT (test code = ALT) 28 See_Comment [Auto mated message] The system which ge nerated this result transmit ezequiel reference range : <=65. The reference range was not used to interpr et this result as grace l/abnormal. [facility]2014-08-21 02:25:00 Test Item Value Reference Range Interpretation Comments AST (test code = AST) 14 See_Comment [Auto mated message] The system which ge nerated this result transmit ezequiel reference range : <=37. The reference range was not used to interpr et this result as grace l/abnormal. [place] 570644-08-21 02:25:00 Test Item Value Reference Range Interpretation Comments Total Protein (test code = Total 7.4 6.4-8.4 Protein) [facility]2014-08-21 02:25:00 Test Item Value Reference Range Interpretation Comments Chloride Lvl (test code = Chloride Lvl) 107 95-109 [place] 570644-08-21 02:25:00 Test Item Value Reference Range Interpretation Comments Potassium Lvl (test code = Potassium 3.4 3.5-5.1 Lvl) [facility]2014-08-21 02:25:00 Test Item Value Reference Range Interpretation Comments Calcium Lvl (test code = Calcium Lvl) 9.2 8.5-10.5 [facility]2014-08-21 02:25:00 Test Item Value Reference Range Interpretation Comments Alk Phos (test code = Alk Phos) 64 39-136 [facility]2014-08-21 02:25:00 Test Item Value Reference Range Interpretation Comments Bili Total (test code = Bili Total) 0.8 0.2-1.3 [facility]2014-08-21 02:25:00 Test Item Value Reference Range Interpretation Comments Sodium Lvl (test code = Sodium Lvl) 140 135-145 [facility]2014-08-21 02:25:00 Test Item Value Reference Range Interpretation Comments Glucose Lvl (test code = Glucose Lvl) 111 70-99 [facility]2014-08-21 02:25:00 Test Item Value Reference Range Interpretation Comments Creatinine Lvl (test code = Creatinine 1.2 0.5-1.4 Lvl) [facility]2014-08-21 02:25:00 Test Item Value Reference Range Interpretation Comments BUN (test code = BUN) 12 7-22 [facility]SaulderMQRWCFKPKW4797-87-63 02:25:00 Test Item Value Reference Range Interpretation Comments MCV (test code = MCV) 93.4 80.0-94.0 [facility]PyebkskYCAJLNVVJD2437-40-28 02:25:00 Test Item Value Reference Range Interpretation Comments MCHC (test code = MCHC) 34.3 32.0-36.0 [facility]HssczepTGQTIDOMEI2457-13-99 02:25:00 Test Item Value Reference Range Interpretation Comments MCH (test code = MCH) 32.1 pg 27.0-31.0 [facility]OipslnvSLKBHBMOYV3007-83-29 02:25:00 Test Item Value Reference Range Interpretation Comments RDW (test code = RDW) 13.4 11.5-14.5 [facility]HqxrijxKNBRHJCOBT0344-78-92 02:25:00 Test Item Value Reference Range Interpretation Comments Platelet (test code = Platelet) 184 133-450 [facility]IqflmsmGWRCFHLEVV2473-69-21 02:25:00 Test Item Value Reference Range Interpretation Comments MPV (test code = MPV) 9.7 7.4-10.4 [facility]KirjcheGUYUYPXZXY2100-56-49 02:25:00 Test Item Value Reference Range Interpretation Comments RBC (test code = RBC) 4.82 4.70-6.10 [facility]iexckVUJPZECVQC9732-22-85 02:25:00 Test Item Value Reference Range Interpretation Comments Hgb (test code = Hgb) 15.5 14.0-18.0 [facility]McucyymQXMFHXHUPC2403-37-70 02:25:00 Test Item Value Reference Range Interpretation Comments WBC (test code = WBC) 9.8 3.7-10.4 [facility]PabqetcMFVMBHHVXQ4287-12-74 02:25:00 Test Item Value Reference Range Interpretation Comments Hct (test code = Hct) 45.1 42.0-54.0 [facility]JcvzekvWGIUHVTMZQ1685-98-31 02:25:00 Test Item Value Reference Range Interpretation Comments PTT (test code = PTT) 33.2 s 22.9-35.8 [facility]PszkqsqSSFUNEGMYZ7134-42-43 02:25:00 Test Item Value Reference Range Interpretation Comments PT (test code = PT) 12.9 s 12.0-14.7 [facility]RpsgpbeNPRFWRJAZZ0883-08-22 02:25:00 Test Item Value Reference Range Interpretation Comments INR (test code = INR) 0.98 0.85-1.17 [facility]VlutqtaOHZNGHOSGZ3437-40-30 02:25:00 Test Item Value Reference Range Interpretation Comments Monocytes # (test code 0.9 See_Comment [Aut omated message] The = Monocytes #) system which generated this result tra nsmitted reference range : <=0.8. The reference r tony was not used to int erpret this result as normal/abnormal . [facility]BmixwriSKZPVDPSYY0764-48-11 02:25:00 Test Item Value Reference Range Interpretation Comments Lymphocytes # (test code = Lymphocytes 4.1 1.0-5.5 #) [facility]CyfobykLBAJNLXKIE5634-40-02 02:25:00 Test Item Value Reference Range Interpretation Comments Segs-Bands # (test code = Segs-Bands #) 4.5 1.5-8.1 [facility]TfaqlhuHIAVLITFBE9530-71-86 02:25:00 Test Item Value Reference Range Interpretation Comments Basophils # (test code 0.1 See_Comment [Aut omated message] The = Basophils #) system which generated this result tra nsmitted reference range : <=0.2. The reference r tony was not used to int erpret this result as normal/abnormal . [facility]VmddtlfQMVMLUIXJY3521-79-98 02:25:00 Test Item Value Reference Range Interpretation Comments Eosinophils # (test code 0.2 See_Comment [A utomated message] The = Eosinophils #) system whic h generated this result tra nsmitted reference range : <=0.5. The reference r tony was not used to int erpret this result as normal/abnormal . [facility]ZbnypdtHUXZNUJXBM8424-87-63 02:25:00 Test Item Value Reference Range Interpretation Comments Segs (test code = Segs) 46.2 45.0-75.0 [facility]ZyetrprFQJABUZYSB3641-25-32 02:25:00 Test Item Value Reference Range Interpretation Comments Eosinophils (test code = 1.6 See_Comment [A utomated message] The Eosinophils) system which ge nerated this result tra nsmitted reference range : <=4.0. The reference r tony was not used to int erpret this result as normal/abnormal . [facility]ForzewwADTHVITRND0422-67-26 02:25:00 Test Item Value Reference Range Interpretation Comments Lymphocytes (test code = Lymphocytes) 42.3 20.0-40.0 [facility]NhdvfuxYQAOIQIKSD0717-59-28 02:25:00 Test Item Value Reference Range Interpretation Comments Basophils (test code = 0.7 See_Comment [Aut omated message] The Basophils) system which ge nerated this result tra nsmitted reference range : <=1.0. The reference r tony was not used to int erpret this result as normal/abnormal . [facility]KjubmgfJBIBKUXZCG7917-76-78 02:25:00 Test Item Value Reference Range Interpretation Comments Monocytes (test code = Monocytes) 9.2 2.0-12.0 [facility] 02:25:00 Test Item Value Reference Range Interpretation Comments [facility] HIV 4th GEN (test Negative (01/20/14 9:25 code = CDC HIV 4th PM) GEN) [facility] AND [id number] 23:45:00 Test Item Value Reference Range Interpretation Comments UA Nitrite (test code Negative (12/16/13 6:45 = UA Nitrite) PM) [facility] AND [id number] 23:45:00 Test Item Value Reference Range Interpretation Comments UA Urobilinogen (test code = UA 0.2 0.1-1.0 Urobilinogen) [facility] AND [id number] 23:45:00 Test Item Value Reference Range Interpretation Comments UA Leuk Est (test Negative (12/16/13 6:45 code = UA Leuk Est) PM) [facility] AND [id number] 23:45:00 Test Item Value Reference Range Interpretation Comments UA Spec Grav (test code = UA Spec 1.025 1 Grav) [facility] AND [id number] 23:45:00 Test Item Value Reference Range Interpretation Comments UA Turbidity (test code = Clear (12/16/13 6:45 UA Turbidity) PM) [facility] AND [id number] 23:45:00 Test Item Value Reference Range Interpretation Comments UA Color (test code = Yellow *NA*(12/16/13 UA Color) 6:45 PM) [facility] AND [id number] 23:45:00 Test Item Value Reference Range Interpretation Comments UA Bili (test code = Negative *NA*(12/16/13 UA Bili) 6:45 PM) [facility] AND [id number] 23:45:00 Test Item Value Reference Range Interpretation Comments UA Blood (test code = Negative (12/16/13 6:45 UA Blood) PM) [facility] AND [id number] 23:45:00 Test Item Value Reference Range Interpretation Comments UA Glucose (test code = UA Negative mg/dL Glucose) [facility] AND [id number] 23:45:00 Test Item Value Reference Range Interpretation Comments UA Ketones (test code = UA Negative mg/dL Ketones) [facility] AND [id number] 23:45:00 Test Item Value Reference Range Interpretation Comments UA pH (test code = UA pH) 6.0 1 5.0-8.0 [facility] AND [id number] 23:45:00 Test Item Value Reference Range Interpretation Comments UA Protein (test code = UA Negative mg/dL Protein) [facility] AND [id number] 23:45:00 Test Item Value Reference Range Interpretation Comments UA Bacteria (test code = UA Occasional /HPF Bacteria) [facility] AND [id number] 23:45:00 Test Item Value Reference Range Interpretation Comments UA Mucus (test code = UA Mucus) Few /LPF [facility] AND [id number] 23:45:00 Test Item Value Reference Range Interpretation Comments Micro? (test code = Performed (12/16/13 6:45 Micro?) PM) [facility] AND [id number] 23:45:00 Test Item Value Reference Range Interpretation Comments UA RBC (test code = 0-2 /HPF See_Comment [Automa ezequiel message] The UA RBC) system which ge nerated this result tra nsmitted reference range : <=2. The reference range was not used to interpr et this result as grace l/abnormal. [facility] AND [id number] 23:45:00 Test Item Value Reference Range Interpretation Comments UA Sq Epi (test code = UA Sq Occasional /LPF Epi) [facility] AND [id number] 23:45:00 Test Item Value Reference Range Interpretation Comments UA WBC (test code = UA WBC) 0-2 /HPF [facility] AND [id number] 23:45:00 Test Item Value Reference Range Interpretation Comments UA Nitrite (test code Negative (12/16/13 6:45 = UA Nitrite) PM) [facility] AND [id number] 23:45:00 Test Item Value Reference Range Interpretation Comments UA Urobilinogen (test code = UA 0.2 0.1-1.0 Urobilinogen) [facility] AND [id number] 23:45:00 Test Item Value Reference Range Interpretation Comments UA Leuk Est (test Negative (12/16/13 6:45 code = UA Leuk Est) PM) [facility] AND [id number] 23:45:00 Test Item Value Reference Range Interpretation Comments UA Spec Grav (test code = UA Spec 1.025 1 Grav) [facility] AND [id number] 23:45:00 Test Item Value Reference Range Interpretation Comments UA Turbidity (test code = Clear (12/16/13 6:45 UA Turbidity) PM) [facility] AND [id number] 23:45:00 Test Item Value Reference Range Interpretation Comments UA Color (test code = Yellow *NA*(12/16/13 UA Color) 6:45 PM) [facility] AND [id number] 23:45:00 Test Item Value Reference Range Interpretation Comments UA Bili (test code = Negative *NA*(12/16/13 UA Bili) 6:45 PM) [facility] AND [id number] 23:45:00 Test Item Value Reference Range Interpretation Comments UA Blood (test code = Negative (12/16/13 6:45 UA Blood) PM) [facility] AND [id number] 23:45:00 Test Item Value Reference Range Interpretation Comments UA Glucose (test code = UA Negative mg/dL Glucose) [facility] AND [id number] 23:45:00 Test Item Value Reference Range Interpretation Comments UA Ketones (test code = UA Negative mg/dL Ketones) [facility] AND [id number] 23:45:00 Test Item Value Reference Range Interpretation Comments UA pH (test code = UA pH) 6.0 1 5.0-8.0 [facility] AND [id number] 23:45:00 Test Item Value Reference Range Interpretation Comments UA Protein (test code = UA Negative mg/dL Protein) [facility] [id number] 23:45:00 Test Item Value Reference Range Interpretation Comments UA Bacteria (test code = UA Occasional /HPF Bacteria) [facility] [id number] 23:45:00 Test Item Value Reference Range Interpretation Comments UA Mucus (test code = UA Mucus) Few /LPF [facility] [id number] 23:45:00 Test Item Value Reference Range Interpretation Comments Micro? (test code = Performed (12/16/13 6:45 Micro?) PM) [facility] [id number] 23:45:00 Test Item Value Reference Range Interpretation Comments UA RBC (test code = 0-2 /HPF See_Comment [Automa ezequiel message] The UA RBC) system which ge nerated this result tra nsmitted reference range : <=2. The reference range was not used to interpr et this result as grace l/abnormal. [facility] [id number] 23:45:00 Test Item Value Reference Range Interpretation Comments UA Sq Epi (test code = UA Sq Occasional /LPF Epi) [facility] AND [id number] 23:45:00 Test Item Value Reference Range Interpretation Comments UA WBC (test code = UA WBC) 0-2 /HPF [facility]2014-07-16 22:20:00 Test Item Value Reference Range Interpretation Comments Lipase Lvl (test code = Lipase Lvl) 151 73-393 [facility] [id number] 22:20:00 Test Item Value Reference Range Interpretation Comments eGFR (test code = eGFR) 93 [facility] [id number] 22:20:00 Test Item Value Reference Range Interpretation Comments AST (test code = AST) 23 See_Comment [Auto mated message] The system which ge nerated this result transmit ezequiel reference range : <=37. The reference range was not used to interpr et this result as grace l/abnormal. [facility]2014-07-16 22:20:00 Test Item Value Reference Range Interpretation Comments Alk Phos (test code = Alk Phos) 67 39-136 [facility]2014-07-16 22:20:00 Test Item Value Reference Range Interpretation Comments Bili Total (test code = Bili Total) 0.7 0.2-1.3 [facility]2014-07-16 22:20:00 Test Item Value Reference Range Interpretation Comments Albumin Lvl (test code = Albumin Lvl) 5.0 3.5-5.0 [facility]2014-07-16 22:20:00 Test Item Value Reference Range Interpretation Comments ALT (test code = ALT) 43 See_Comment [Auto mated message] The system which ge nerated this result transmit ezequiel reference range : <=65. The reference range was not used to interpr et this result as grace l/abnormal. [facility]2014-07-16 22:20:00 Test Item Value Reference Range Interpretation Comments BUN (test code = BUN) 22 7-22 [facility]2014-07-16 22:20:00 Test Item Value Reference Range Interpretation Comments Glucose Lvl (test code = Glucose Lvl) 90 70-99 [facility]2014-07-16 22:20:00 Test Item Value Reference Range Interpretation Comments Creatinine Lvl (test code = Creatinine 1.1 0.5-1.4 Lvl) [facility]2014-07-16 22:20:00 Test Item Value Reference Range Interpretation Comments Sodium Lvl (test code = Sodium Lvl) 140 135-145 [facility]2014-07-16 22:20:00 Test Item Value Reference Range Interpretation Comments Potassium Lvl (test code = Potassium 4.0 3.5-5.1 Lvl) [facility]2014-07-16 22:20:00 Test Item Value Reference Range Interpretation Comments Calcium Lvl (test code = Calcium Lvl) 9.5 8.5-10.5 [facility]2014-07-16 22:20:00 Test Item Value Reference Range Interpretation Comments Total Protein (test code = Total 8.3 6.4-8.4 Protein) [facility]2014-07-16 22:20:00 Test Item Value Reference Range Interpretation Comments Chloride Lvl (test code = Chloride Lvl) 104 95-109 [facility]2014-07-16 22:20:00 Test Item Value Reference Range Interpretation Comments CO2 (test code = CO2) 27 24-32 [facility]2014-07-16 22:20:00 Test Item Value Reference Range Interpretation Comments AGAP (test code = AGAP) 13.0 10.0-20.0 [facility]2014-07-16 22:20:00 Test Item Value Reference Range Interpretation Comments B/C Ratio (test code = B/C Ratio) 20 6-25 [facility]2014-07-16 22:20:00 Test Item Value Reference Range Interpretation Comments Globulin (test code = Globulin) 3.3 2.0-4.0 [facility]2014-07-16 22:20:00 Test Item Value Reference Range Interpretation Comments A/G Ratio (test code = A/G Ratio) 1.5 0.7-1.6 [facility]RybpqzaQTRUBCXTIR0511-15-85 22:20:00 Test Item Value Reference Range Interpretation Comments Basophils # (test code 0.1 See_Comment [Aut omated message] The = Basophils #) system which generated this result tra nsmitted reference range : <=0.2. The reference r tony was not used to int erpret this result as normal/abnormal . [id number] 22:20:00 Test Item Value Reference Range Interpretation Comments Monocytes # (test code 0.9 See_Comment [Aut omated message] The = Monocytes #) system which generated this result tra nsmitted reference range : <=0.8. The reference r tony was not used to int erpret this result as normal/abnormal . [id number] 22:20:00 Test Item Value Reference Range Interpretation Comments Eosinophils # (test code 0.3 See_Comment [A utomated message] The = Eosinophils #) system whic h generated this result tra nsmitted reference range : <=0.5. The reference r tony was not used to int erpret this result as normal/abnormal . [facility]NrlmrmbVOVEJJMXIE6376-12-49 22:20:00 Test Item Value Reference Range Interpretation Comments Segs-Bands # (test code = Segs-Bands #) 6.5 1.5-8.1 [id number] 22:20:00 Test Item Value Reference Range Interpretation Comments Lymphocytes # (test code = Lymphocytes 3.3 1.0-5.5 #) [facility]HkyqbxoLPFRJYLSGT4514-14-08 22:20:00 Test Item Value Reference Range Interpretation Comments Basophils (test code = 0.8 See_Comment [Aut omated message] The Basophils) system which ge nerated this result tra nsmitted reference range : <=1.0. The reference r tony was not used to int erpret this result as normal/abnormal . [facility]GimyvmkQQJVKQJYEM0857-38-68 22:20:00 Test Item Value Reference Range Interpretation Comments Eosinophils (test code = 2.3 See_Comment [A utomated message] The Eosinophils) system which ge nerated this result tra nsmitted reference range : <=4.0. The reference r tony was not used to int erpret this result as normal/abnormal . [facility]JhqgqefNGIQWIAZAH6210-80-50 22:20:00 Test Item Value Reference Range Interpretation Comments Lymphocytes (test code = Lymphocytes) 29.9 20.0-40.0 [facility]KjnknwrTFGAMKNOQA2643-51-50 22:20:00 Test Item Value Reference Range Interpretation Comments Monocytes (test code = Monocytes) 7.9 2.0-12.0 [facility]TggfpqhVRUGHZMIUU9172-33-71 22:20:00 Test Item Value Reference Range Interpretation Comments Segs (test code = Segs) 59.1 45.0-75.0 [facility]IsfsmzjKXPCULHLGJ0427-22-65 22:20:00 Test Item Value Reference Range Interpretation Comments MPV (test code = MPV) 9.4 7.4-10.4 [facility]FlmnopnWMTOTEMHGK9020-63-29 22:20:00 Test Item Value Reference Range Interpretation Comments RDW (test code = RDW) 13.8 11.5-14.5 [facility]LganoeyYAJHXERCCU1937-69-00 22:20:00 Test Item Value Reference Range Interpretation Comments Platelet (test code = Platelet) 234 133-450 [facility]YhyxadkYUAJVLGKWW0830-57-21 22:20:00 Test Item Value Reference Range Interpretation Comments MCHC (test code = MCHC) 34.3 32.0-36.0 [facility]JvxpyqsSEWKRIPOJM6937-48-43 22:20:00 Test Item Value Reference Range Interpretation Comments MCH (test code = MCH) 32.6 pg 27.0-31.0 [facility]DruntdcYOBSTUMDQL1338-09-96 22:20:00 Test Item Value Reference Range Interpretation Comments Hgb (test code = Hgb) 16.3 14.0-18.0 [facility]EgosofbPXUTERXOGZ4084-66-19 22:20:00 Test Item Value Reference Range Interpretation Comments MCV (test code = MCV) 95.0 80.0-94.0 [facility]OgajsurOMUXYUIUBP8518-48-52 22:20:00 Test Item Value Reference Range Interpretation Comments Hct (test code = Hct) 47.5 42.0-54.0 [facility]QqkslulTDCEBPMTCA7497-17-92 22:20:00 Test Item Value Reference Range Interpretation Comments RBC (test code = RBC) 5.00 4.70-6.10 [facility]XqkornfEFZAKYZKOZ7240-00-72 22:20:00 Test Item Value Reference Range Interpretation Comments WBC (test code = WBC) 11.0 3.7-10.4 [facility]2014-07-16 22:20:00 Test Item Value Reference Range Interpretation Comments Lipase Lvl (test code = Lipase Lvl) 151 73-393 [facility]2014-07-16 22:20:00 Test Item Value Reference Range Interpretation Comments eGFR (test code = eGFR) 93 [facility]2014-07-16 22:20:00 Test Item Value Reference Range Interpretation Comments AST (test code = AST) 23 See_Comment [Auto mated message] The system which ge nerated this result transmit ezequiel reference range : <=37. The reference range was not used to interpr et this result as grace l/abnormal. [facility]2014-07-16 22:20:00 Test Item Value Reference Range Interpretation Comments Alk Phos (test code = Alk Phos) 67 39-136 [facility]2014-07-16 22:20:00 Test Item Value Reference Range Interpretation Comments Bili Total (test code = Bili Total) 0.7 0.2-1.3 [facility]2014-07-16 22:20:00 Test Item Value Reference Range Interpretation Comments Albumin Lvl (test code = Albumin Lvl) 5.0 3.5-5.0 [facility]2014-07-16 22:20:00 Test Item Value Reference Range Interpretation Comments ALT (test code = ALT) 43 See_Comment [Auto mated message] The system which ge nerated this result transmit ezequiel reference range : <=65. The reference range was not used to interpr et this result as grace l/abnormal. [facility]2014-07-16 22:20:00 Test Item Value Reference Range Interpretation Comments BUN (test code = BUN) 22 7-22 [facility]2014-07-16 22:20:00 Test Item Value Reference Range Interpretation Comments Glucose Lvl (test code = Glucose Lvl) 90 70-99 [facility]2014-07-16 22:20:00 Test Item Value Reference Range Interpretation Comments Creatinine Lvl (test code = Creatinine 1.1 0.5-1.4 Lvl) [facility]2014-07-16 22:20:00 Test Item Value Reference Range Interpretation Comments Sodium Lvl (test code = Sodium Lvl) 140 135-145 [facility]2014-07-16 22:20:00 Test Item Value Reference Range Interpretation Comments Potassium Lvl (test code = Potassium 4.0 3.5-5.1 Lvl) [facility]2014-07-16 22:20:00 Test Item Value Reference Range Interpretation Comments Calcium Lvl (test code = Calcium Lvl) 9.5 8.5-10.5 [facility]2014-07-16 22:20:00 Test Item Value Reference Range Interpretation Comments Total Protein (test code = Total 8.3 6.4-8.4 Protein) [facility]2014-07-16 22:20:00 Test Item Value Reference Range Interpretation Comments Chloride Lvl (test code = Chloride Lvl) 104 95-109 [facility]2014-07-16 22:20:00 Test Item Value Reference Range Interpretation Comments CO2 (test code = CO2) 27 24-32 [facility]2014-07-16 22:20:00 Test Item Value Reference Range Interpretation Comments AGAP (test code = AGAP) 13.0 10.0-20.0 [facility]2014-07-16 22:20:00 Test Item Value Reference Range Interpretation Comments B/C Ratio (test code = B/C Ratio) 20 6-25 [facility]2014-07-16 22:20:00 Test Item Value Reference Range Interpretation Comments Globulin (test code = Globulin) 3.3 2.0-4.0 [facility]2014-07-16 22:20:00 Test Item Value Reference Range Interpretation Comments A/G Ratio (test code = A/G Ratio) 1.5 0.7-1.6 [facility]TvogquvHDTBNBXCTY2458-76-81 22:20:00 Test Item Value Reference Range Interpretation Comments Basophils # (test code 0.1 See_Comment [Aut omated message] The = Basophils #) system which generated this result tra nsmitted reference range : <=0.2. The reference r tony was not used to int erpret this result as normal/abnormal . [facility]YbdvbybOTKGUSCISM7012-14-40 22:20:00 Test Item Value Reference Range Interpretation Comments Monocytes # (test code 0.9 See_Comment [Aut omated message] The = Monocytes #) system which generated this result tra nsmitted reference range : <=0.8. The reference r tony was not used to int erpret this result as normal/abnormal . [facility]GgepqwxGSEPDQBJRX2399-17-82 22:20:00 Test Item Value Reference Range Interpretation Comments Eosinophils # (test code 0.3 See_Comment [A utomated message] The = Eosinophils #) system whic h generated this result tra nsmitted reference range : <=0.5. The reference r tony was not used to int erpret this result as normal/abnormal . [facility]ObfhoodJROLIZGAWM0282-61-20 22:20:00 Test Item Value Reference Range Interpretation Comments Segs-Bands # (test code = Segs-Bands #) 6.5 1.5-8.1 [facility]VsjbauhSRQKUQKKXU2755-45-61 22:20:00 Test Item Value Reference Range Interpretation Comments Lymphocytes # (test code = Lymphocytes 3.3 1.0-5.5 #) [facility]AmriugiGWBXRMMLCM1983-95-52 22:20:00 Test Item Value Reference Range Interpretation Comments Basophils (test code = 0.8 See_Comment [Aut omated message] The Basophils) system which ge nerated this result tra nsmitted reference range : <=1.0. The reference r tony was not used to int erpret this result as normal/abnormal . [facility]GzwkodrZPTHUDTMUV6923-03-73 22:20:00 Test Item Value Reference Range Interpretation Comments Eosinophils (test code = 2.3 See_Comment [A utomated message] The Eosinophils) system which ge nerated this result tra nsmitted reference range : <=4.0. The reference r tony was not used to int erpret this result as normal/abnormal . [facility]TrdpohjMNZRRLAEGB9726-97-11 22:20:00 Test Item Value Reference Range Interpretation Comments Lymphocytes (test code = Lymphocytes) 29.9 20.0-40.0 [facility]EceszuhQFBYOLXFAO6256-35-82 22:20:00 Test Item Value Reference Range Interpretation Comments Monocytes (test code = Monocytes) 7.9 2.0-12.0 [facility]QjduzxoZNBJCYJTLG8865-88-81 22:20:00 Test Item Value Reference Range Interpretation Comments Segs (test code = Segs) 59.1 45.0-75.0 [facility]RcsdtdvVOTEJSFXBX3041-01-55 22:20:00 Test Item Value Reference Range Interpretation Comments MPV (test code = MPV) 9.4 7.4-10.4 [facility]PgyxgovRIHAOZBVQQ6143-16-13 22:20:00 Test Item Value Reference Range Interpretation Comments RDW (test code = RDW) 13.8 11.5-14.5 [facility]ArteeloHXTFRJRHOP6051-26-00 22:20:00 Test Item Value Reference Range Interpretation Comments Platelet (test code = Platelet) 234 133-450 [facility]SvhhrskPZRFMVGAIY5036-00-07 22:20:00 Test Item Value Reference Range Interpretation Comments MCHC (test code = MCHC) 34.3 32.0-36.0 [facility]YpogpqrBTHKUJUPIW6604-70-68 22:20:00 Test Item Value Reference Range Interpretation Comments MCH (test code = MCH) 32.6 pg 27.0-31.0 [id number] 22:20:00 Test Item Value Reference Range Interpretation Comments Hgb (test code = Hgb) 16.3 14.0-18.0 [id number] 22:20:00 Test Item Value Reference Range Interpretation Comments MCV (test code = MCV) 95.0 80.0-94.0 [id number] 22:20:00 Test Item Value Reference Range Interpretation Comments Hct (test code = Hct) 47.5 42.0-54.0 [id number] 22:20:00 Test Item Value Reference Range Interpretation Comments RBC (test code = RBC) 5.00 4.70-6.10 [id number] 22:20:00 Test Item Value Reference Range Interpretation Comments WBC (test code = WBC) 11.0 3.7-10.4 [facility]
--- NOTE | 2022-07-28 01:19 | EDPHYS ---
Physician Documentation [facility] Name: Chico Leon Age: 31 yrs Sex: Male : 1990 Arrival Date: 07/28/2022 Time: 00:42 Bed 13 Private MD: ED Physician Jacobo Ramos HPI: 07/28 01:15 This 31 yrs old Male presents to ER via Ambulatory with complaints of bs3 Toothache, Anxiety. 01:15 31yo m history of very poor dentition who started some repair on his teeth several bs3 months ago presents with left upper tooth pain it got worse over the last several days he denies any fevers or chills nausea vomiting he took 1 old clindamycin and Advil without relief he denies anything else bothering him. Historical: - Allergies: 01:00 Reglan (tardive dyskinesia); lg3 - PMHx: 01:00 Anxiety; Bipolar disorder; Depression; Pancreatitis; PTSD; Schizophrenia; Borderline; lg3 Seizures; - PSHx: 01:00 Appendectomy; lg3 - Immunization history:: Adult Immunizations up to date, Client reports receiving the 2nd dose of the Covid vaccine. - Social history:: Smoking status: Patient reports the use of cigarette tobacco products, Patient uses alcohol, occasionally. ROS: 01:15 Constitutional: Negative for fever, chills bs3 01:15 All other systems are negative. Exam: 01:15 Constitutional: This is a well developed, well nourished patient who is awake, alert, bs3 and in no acute distress. Head/Face: Normocephalic, atraumatic. Eyes: Pupils equal round and reactive to light, extra-ocular motions intact. Lids and lashes normal. ENT: mmm, no posterior phyarngeal erythema, multiple dental caries no periapical abscess, pain to percussion of tooth 15, no trismus, no uvular deviation, no drooling Neck: Trachea midline, no thyromegaly, no neck stiffness Cardiovascular: Regular rate and rhythm with a normal S1 and S2. symmetric pulses in upper extremities Respiratory: Lungs have equal breath sounds bilaterally, clear to auscultation, no respiratory distress Vital Signs: 00:58 BP 140 / 95; Pulse 76; Resp 17 S; Temp 97.6; Pulse Ox 99% on R/A; Weight 88.9 kg (R); lg3 Height 5 ft. 3 in. (160.02 cm) (R); Pain 9/10; 00:58 Body Mass Index 34.72 (88.90 kg, 160.02 cm) lg3 MDM: 00:59 Patient medically screened. bs3 01:15 Differential diagnosis: dental caries, dental abscess. Data reviewed: vital signs, bs3 nurses notes. ED course: considered abscess, but no visible abscess, not consistent with metal bonding worker, rpa, ludwigs, no signs of orbital cellulitis, will tx pain, will give antibiotics, return prec given, strongly advised to f/u with dental. Administered Medications: 01:35 Drug: Tylenol #3 (300 mg-30 mg) 1 tablet Route: PO; ke1 Disposition Summary: 07/28/22 01:18 Discharge Ordered Location: Home bs3 Problem: new bs3 Symptoms: are unchanged bs3 Condition: Stable bs3 Diagnosis - Dental caries, unspecified bs3 Followup: bs3 - With: Private Physician - When: 24 Hours - Reason: Re-evaluation by your physician Discharge Instructions: - Discharge Summary Sheet bs3 - Dental Caries, Adult bs3 Forms: - Medication Reconciliation Form bs3 - Thank You Letter bs3 - Antibiotic Education bs3 - Prescription Opioid Use bs3 Prescriptions: - Clindamycin HCl 300 mg Oral Capsule - take 1 capsule by ORAL route every 6 hours for 10 days; 40 capsule; Refills: 0, bs3 Product Selection Permitted Signatures: Jane Levine RN RN lg3 Romero Montenegro RN RN ke1 Jacobo Ramos MD MD bs3
--- NOTE | 2022-07-28 01:19 | ER ---
Nurse's Notes [facility] Name: Chico Leon Age: 31 yrs Sex: Male : 1990 Arrival Date: 07/28/2022 Time: 00:42 Bed 13 Private MD: Diagnosis: Dental caries, unspecified Presentation: 07/28 00:58 Chief complaint: Patient states: left sided tooth pain making my left eye swell and the lg3 left side of my neck hurt. Coronavirus screen: Client denies travel out of the [place] in the last 14 days. At this time, the client does not indicate any symptoms associated with coronavirus-19. Ebola Screen: No symptoms or risks identified at this time. Initial Sepsis Screen: Does the patient meet any 2 criteria? No. Patient's initial sepsis screen is negative. Does the patient have a suspected source of infection? No. Patient's initial sepsis screen is negative. Risk Assessment: Do you want to hurt yourself or someone else? Patient reports no desire to harm self or others. Onset of symptoms is unknown. 00:58 Method Of Arrival: Ambulatory lg3 00:58 Acuity: RADHA 4 lg3 Triage Assessment: 01:00 General: Appears in no apparent distress. uncomfortable, Behavior is calm, cooperative. lg3 Pain: Complains of pain in left ear, left zygomatic area, left cheek and left mandible. EENT: Reports pain in left ear, left zygomatic area, left cheek and left mandible. Neuro: No deficits noted. Neville Agitation-Sedation Scale (RASS): 0 - Alert and Calm Level of Consciousness is awake, alert, obeys commands, Oriented to person, place, time, situation. Cardiovascular: No deficits noted. Denies chest pain, shortness of breath, Capillary refill < 3 seconds Clubbing of nail beds is absent JVD is absent Patient's skin is warm and dry. Respiratory: No deficits noted. Airway is patent Trachea midline Respiratory effort is even, unlabored, Respiratory pattern is regular, symmetrical. GI: No deficits noted. No signs and/or symptoms were reported involving the gastrointestinal system. : No deficits noted. No signs and/or symptoms were reported regarding the genitourinary system. Derm: Skin is intact, is healthy with good turgor, Skin is dry, Skin is normal. Musculoskeletal: Circulation, motion, and sensation intact. Range of motion: intact in all extremities, Swelling present in left eye. Historical: - Allergies: 01:00 Reglan (tardive dyskinesia); lg3 - PMHx: 01:00 Anxiety; Bipolar disorder; Depression; Pancreatitis; PTSD; Schizophrenia; Borderline; lg3 Seizures; - PSHx: 01:00 Appendectomy; lg3 - Immunization history:: Adult Immunizations up to date, Client reports receiving the 2nd dose of the Covid vaccine. - Social history:: Smoking status: Patient reports the use of cigarette tobacco products, Patient uses alcohol, occasionally. Screenin:59 [facility] ED Fall Risk Assessment (Adult) History of falling in the last 3 months, vc1 including since admission No falls in past 3 months (0 pts) Confusion or Disorientation No (0 pts) Intoxicated or Sedated No (0 pts) Impaired Gait No (0 pts) Mobility Assist Device Used No (0 pt) Altered Elimination No (0 pt) Score/Fall Risk Level 0 - 2 = Low Risk Oriented to surroundings, Maintained a safe environment, Educated pt \T\ family on fall prevention, incl call for assistance when getting out of bed. Abuse screen: Denies threats or abuse. Nutritional screening: No deficits noted. Tuberculosis screening: No symptoms or risk factors identified. Vital Signs: 00:58 BP 140 / 95; Pulse 76; Resp 17 S; Temp 97.6; Pulse Ox 99% on R/A; Weight 88.9 kg (R); lg3 Height 5 ft. 3 in. (160.02 cm) (R); Pain 9/10; 00:58 Body Mass Index 34.72 (88.90 kg, 160.02 cm) lg3 ED Course: 00:42 Patient arrived in ED. ja2 00:59 Jacobo Ramos MD is Attending Physician. bs3 01:00 Triage completed. lg3 01:00 Arm band placed on right wrist. lg3 01:29 Romero Montenegro, HAILEY is Primary Nurse. ke1 01:59 No provider procedures requiring assistance completed. Patient did not have IV access vc1 during this emergency room visit. Administered Medications: 01:35 Drug: Tylenol #3 (300 mg-30 mg) 1 tablet Route: PO; ke1 Medication: 02:00 VIS not applicable for this client. vc1 Outcome: 01:18 Discharge ordered by . bs3 01:59 Discharged to home ambulatory. vc1 01:59 Condition: good 01:59 Discharge instructions given to patient, Instructed on discharge instructions, follow up and referral plans. medication usage, Demonstrated understanding of instructions, follow-up care, medications, Prescriptions given X 1. 02:00 Patient left the ED. vc1 Signatures: Jane Levine RN RN lg3 Edna Sauer Vanessa, RN RN vc1 Romero Montenegro RN RN ke1 Jacobo Ramos MD MD bs3
[2022-07-28] MEDS ORDERED: CODEINE 30MG/APAP 300MG TAB ONE (01:38)
[2022-07-28 02:04] VITALS: BP 140/95; TEMP 97.6; O2SAT 99
== END 2022-07-28 02:00 | disposition home or self-care (01) ==
LOC: ER 00:34
DX: K02.9 Dental caries, unspecified (principal); F20.9 Schizophrenia, unspecified; Z88.8 Allergy status to other drugs, medicaments and biological substances
CPT/HCPCS: 99283

== ENCOUNTER 2022-11-09 23:06 | Emergency (ER) | payer BC ==
--- OUTSIDE RECORDS SUMMARY | 2022-11-09 23:29 | XMS REPORT | Continuity of Care Document ---
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 68.182, kg, Priority: STAT, Start date: 02/26/18 15:00:00 CDT, Stop date: 02/26/18 15:00:00 CDT Ativan 2017-0 No 1 mg, Memoria 02-26 Route: l 20:00: IVP, Drug form: INJ, ONCE, Dosing Weight 65, kg, Priority: STAT, Start date: 02/26/18 15:00:00 CDT, Stop date: 02/26/18 15:00:00 CDT Ondansetron 2017-0 No Notes: Suleman lida 02-26 (Same as: l 20:00: Zofran) MEDICATION WASTE Product Size: 4 mg Product Wasted: ___ mg Cefazolin 2018-0 No 2 gm, [facility] 02-26 Route: IV, l 20:00: ONCE, Dosing Weight 68.182, kg, (for patients 50 -120 kg), Priority: STAT, Start date: 02/26/18 15:00:00 CDT, Stop date: 02/26/18 15:00:00 CDT, ABX Indication : Open Wound Prophylaxi s Morphine 2018-0 No 4 mg, Memoria 02-26 Route: l [...] CDT, Stop date: 02/26/18 15:00:00 CDT Lidocaine 2017-0 No 1 appl, Mem[facility] ia 02-26 Route: l 20:00: TOP, ONCE, Dosing Weight 68.182, kg, Priority: STAT, Start date: 02/26/18 15:00:00 CDT, Stop date: 02/26/18 15:00:00 CDT Ativan 0 No 1 mg, Memoria 02-26 Route: l 20:00: IVP, Drug form: INJ, ONCE, Dosing Weight 65, kg, Priority: STAT, Start date: 02/26/18 15:00:00 CDT, Stop date: 02/26/18 15:00:00 CDT Ondansetron 2017-0 No Notes: Suleman lida 02-26 (Same as: l 20:00: Zofran) MEDICATION WASTE Product Size: 4 mg Product Wasted: ___ mg Cefazolin 2017-0 No 2 gm, Memoria 02-26 Route: IV, [...] ia 02-26 Route: l 20:00: TOP, ONCE, [place] 00 Priority: Stat, Start date: 02/26/18 15:00:00 CDT, Stop date: 02/26/18 15:00:00 CDT Lidocaine No 1 appl, [facility] 02-26 Route: l 20:00: TOP, ONCE, Dosing Weight 68.182, kg, Priority: STAT, Start date: 02/26/18 15:00:00 CDT, Stop date: 02/26/18 15:00:00 CDT Rocephin No Notes: Memoria 6-19 (Same As: l 03:09: Rocephin) Azithromyci No Notes: Suleman lida n 6-19 Take 1 l 03:09: hour [place] 00 before or 2 hours after meals. (Same As: Zithromax) Rocephin No Notes: [facility] 6-19 (Same As: l 03:09: Rocephin) [place] Azithromyci No Notes: Suleman lida n 6-19 Take 1 l 03:09: hour [place] 00 before or 2 hours after meals. (Same As: Zithromax) Rocephin No Notes: [facility] 6-19 (Same As: l 03:09: Rocephin) Joon Azithromyci No Notes: Suleman lida n 6-19 Take 1 l 03:09: hour [place] 00 before or 2 hours after meals. (Same As: Zithromax) Azithromyci No Notes: Suleman lida n 6-19 Take 1 l 03:09: hour [place] 00 before or 2 hours after meals. (Same As: Zithromax) Rocephin No Notes: [facility] 6-19 (Same As: l 03:09: Rocephin) [place] Sodium 2017-0 No 1,000 mL, Memori a Chloride 6-19 1000 l 0.154 01:56: ml/hr, [place] MEQ/ML 00 Infuse Injectable Over: 1 Solution hr, Route: IV, 1,000, Drug form: INJ, ONCE, Priority: STAT, Dosing Weight 65 kg, Start date: 11/18/16 20:56:00 CDT, Duration: 1 doses or times, Stop date: 11/18/16 20:56:00 CDT Sodium 2017-0 No 1,000 mL, Memori a Chloride 6-19 1000 l 0.154 01:56: ml/hr, [place] MEQ/ML 00 Infuse Injectable Over: 1 Solution hr, Route: IV, 1,000, Drug form: INJ, ONCE, Priority: STAT, Dosing Weight 65 kg, Start date: 11/18/16 20:56:00 CDT, Duration: 1 doses or times, Stop date: 11/18/16 20:56:00 CDT Sodium 2017-0 No 1,000 mL, Memori a Chloride 6-19 1000 l 0.154 01:56: ml/hr, [place] MEQ/ML 00 Infuse Injectable Over: 1 Solution hr, Route: IV, 1,000, Drug form: INJ, ONCE, Priority: STAT, Dosing Weight 65 kg, Start date: 11/18/16 20:56:00 CDT, Duration: 1 doses or times, Stop date: 11/18/16 20:56:00 CDT Sodium 2017-0 No 1,000 mL, Memori a Chloride 6-19 1000 l 0.154 01:56: ml/hr, [place] MEQ/ML 00 Infuse Injectable Over: 1 Solution hr, Route: IV, 1,000, Drug form: INJ, ONCE, Priority: STAT, Dosing Weight 65 kg, Start date: 11/18/16 20:56:00 CDT, Duration: 1 doses or times, Stop date: 11/18/16 20:56:00 CDT Saline No Notes: [facility] Flush 0.9% 6-19 (Same as: l 00:31: BD [place] 00 Posiflush) Ondansetron No Notes: Suleman lida 6-19 (Same as: l 00:31: Zofran) [place] 00 MEDICATION WASTE Product Size: 4 mg Product Wasted: 0 mg Morphine No Notes: [facility]oria 6-19 (Same l 00:31: as:MORPhin [place] 00 e Sulfate) Sodium 2017 No 1,000 mL, Memori a Chloride 6-19 2,000 l 0.154 00:31: ml/hr, [place] MEQ/ML 00 Infuse Injectable Over: 30 Solution minutes, Route: IV, 1,000, Drug form: INJ, ONCE, Priority: STAT, Dosing Weight 65 kg, Start date: 11/18/16 19:31:00 CDT, Duration: 1 doses or times, Stop date: 11/18/16 19:31:00 CDT Saline No Notes: [facility] Flush 0.9% 6-19 (Same as: l 00:31: BD [place] 00 Posiflush) Ondansetron No Notes: Suleman lida 6-19 (Same as: l 00:31: Zofran) [place] 00 MEDICATION WASTE Product Size: 4 mg Product Wasted: 0 mg Morphine No Notes: [facility]oria 6-19 (Same l 00:31: as:MORPhin [place] 00 e Sulfate) Sodium No 1,000 mL, Memori a Chloride 6-19 2,000 l 0.154 00:31: ml/hr, [place] MEQ/ML 00 Infuse Injectable Over: 30 Solution minutes, Route: IV, 1,000, Drug form: INJ, ONCE, Priority: STAT, Dosing Weight 65 kg, Start date: 11/18/16 19:31:00 CDT, Duration: 1 doses or times, Stop date: 11/18/16 19:31:00 CDT Saline No Notes: [facility] Flush 0.9% 6-19 (Same as: l 00:31: BD [place] 00 Posiflush) Ondansetron No Notes: Suleman lida 6-19 (Same as: l 00:31: Zofran) [place] 00 MEDICATION WASTE Product Size: 4 mg Product Wasted: 0 mg Morphine No Notes: [facility]oria 6-19 (Same l 00:31: as:MORPhin [place] 00 e Sulfate) Sodium No 1,000 mL, Memori a Chloride 6-19 2,000 l 0.154 00:31: ml/hr, [place] MEQ/ML 00 Infuse Injectable Over: 30 Solution minutes, Route: IV, 1,000, Drug form: INJ, ONCE, Priority: STAT, Dosing Weight 65 kg, Start date: 11/18/16 19:31:00 CDT, Duration: 1 doses or times, Stop date: 11/18/16 19:31:00 CDT Ondansetron No Notes: Suleman lida 11-19 (Same as: l 00:31: Zofran) 00 MEDICATION WASTE Product Size: 4 mg Product Wasted: 0 mg Morphine No Notes: [facility]oria 11-19 (Same l 00:31: as:MORPhin e Sulfate) Sodium No 1,000 mL, Memori a Chloride 11-19 2,000 l 0.154 00:31: ml/hr, [place] MEQ/ML 00 Infuse Injectable Over: 30 Solution minutes, Route: IV, 1,000, Drug form: INJ, ONCE, Priority: STAT, Dosing Weight 65 kg, Start date: 11/18/16 19:31:00 CDT, Duration: 1 doses or times, Stop date: 11/18/16 19:31:00 CDT Saline No Notes: [facility] Flush 0.9% 11-19 (Same as: l 00:31: BD [place] 00 Posiflush) Escitalopra 2021- No Take 1 Jay sey m Oxalate 09-19 tablet Seybold 10 MG oral 00:00: 00:00 daily x 1 Tab 00 :00 week then 2 tablets daily Zolpidem 2021- No [id number] 10mg QD Take 1 K elsey Tartrate 09-19 tablet by Arian pollock (GAYLE) 10 00:00: 00:00 mouth MG oral Tab 00 :00 nightly as needed for sleep Sertraline 2021- No [id number] 1/2 tab Lakeshia HCl 100 MG 08-28- daily for Sey bold oral Tab 00:00: 00:00 one week 00 :00 then full tab Ativan No 1 mg, [facility]oria 225 Route: l 10:22: IVP, Drug [place] 00 form: INJ, ONCE, Dosing Weight 68.182, kg, Priority: STAT, Start date: 07/28/15 4:22:00, Stop date: 07/28/15 4:22:00 Ativan 2016-0 No 1 mg, [facility] 2-25 Route: l 10:22: IVP, Drug [place] 00 form: INJ, ONCE, Dosing Weight 68.182, kg, Priority: STAT, Start date: 07/28/15 4:22:00, Stop date: 07/28/15 4:22:00 Ativan 2016-0 No 1 mg, [facility] 2-25 Route: l 10:22: IVP, Drug [place] 00 form: INJ, ONCE, Dosing Weight 68.182, kg, Priority: STAT, Start date: 07/28/15 4:22:00, Stop date: 07/28/15 4:22:00 Ativan 2016-0 No 1 mg, [facility] 2-25 Route: l 10:22: IVP, Drug [place] 00 form: INJ, ONCE, Dosing Weight 68.182, kg, Priority: STAT, Start date: 07/28/15 4:22:00, Stop date: 07/28/15 4:22:00 Saline 2016-0 No Notes: [facility] Flush 0.9% 2-25 Same as: l 10:19: BD [place] 00 Posiflush Sterile Sodium 2016-0 No 1,000 mL, Memori a Chloride 2-25 1,000 l 0.154 10:19: ml/hr, [place] MEQ/ML 00 Infuse Injectable Over: 1 Solution hr, Route: IV, ONCE, Priority: STAT, Dosing Weight 68.182 kg, Start date: 07/28/15 4:19:00, Duration: 1 doses or times, Stop date: 07/28/15 4:19:00 Saline 2016-0 No Notes: [facility] Flush 0.9% 2-25 Same as: l 10:19: BD [place] 00 Posiflush Sterile Sodium 2016-0 No 1,000 mL, Memori a Chloride 2-25 1,000 l 0.154 10:19: ml/hr, [place] MEQ/ML 00 Infuse Injectable Over: 1 Solution hr, Route: IV, ONCE, Priority: STAT, Dosing Weight 68.182 kg, Start date: 07/28/15 4:19:00, Duration: 1 doses or times, Stop date: 07/28/15 4:19:00 Saline 2016-0 No Notes: [facility] Flush 0.9% 2-25 Same as: l 10:19: BD [place] 00 Posiflush Sterile Sodium 2016-0 No 1,000 mL, Memori a Chloride 2-25 1,000 l 0.154 10:19: ml/hr, [place] MEQ/ML 00 Infuse Injectable Over: 1 Solution hr, Route: IV, ONCE, Priority: STAT, Dosing Weight 68.182 kg, Start date: 07/28/15 4:19:00, Duration: 1 doses or times, Stop date: 07/28/15 4:19:00 Saline 2016-0 No Notes: [facility] Flush 0.9% 2-25 Same as: l 10:19: BD [place] 00 Posiflush Sterile Sodium 2016-0 No 1,000 mL, Memori a Chloride 2-25 1,000 l 0.154 10:19: ml/hr, [place] MEQ/ML 00 Infuse Injectable Over: 1 Solution hr, Route: IV, ONCE, Priority: STAT, Dosing Weight 68.182 kg, Start date: 07/28/15 4:19:00, Duration: 1 doses or times, Stop date: 07/28/15 4:19:00 Ativan 2016-0 No 1 mg, [facility] 2-25 Route: l 10:18: IVP, Drug [place] 00 form: INJ, ONCE, Dosing Weight 68.182, kg, Priority: STAT, Start date: 07/28/15 4:18:00, Stop date: 07/28/15 4:18:00 Ativan 2016-0 No 1 mg, [facility] 2-25 Route: l 10:18: IVP, Drug [place] 00 form: INJ, ONCE, Dosing Weight 68.182, kg, Priority: STAT, Start date: 07/28/15 4:18:00, Stop date: 07/28/15 4:18:00 Ativan 2016-0 No 1 mg, [facility] 2-25 Route: l 10:18: IVP, Drug [place] 00 form: INJ, ONCE, Dosing Weight 68.182, kg, Priority: STAT, Start date: 07/28/15 4:18:00, Stop date: 07/28/15 4:18:00 Ativan No 1 mg, [facility] 07-28 Route: l 10:18: IVP, Drug [place] form: INJ, ONCE, Dosing Weight 68.182, kg, [...] day, # 10 tab, 0 Refill(s) Ciprofloxac 2016-0 Yes 500 mg = 1 Memoria in 500 MG 1-06 tab, PO, l Oral Tablet 09:05: Q12H, X 3 H ermann [Cipro] 00 day, # 6 tab, 0 Refill(s) Ondansetron 2016-0 Yes 4 mg = 1 Me moria 4 MG 1-06 tab, PO, l Disintegrat 09:05: BID, PRN He rmann ing Tablet 00 Nausea and [Zofran] Vomiting, Dissolve tab under tongue, X 5 day, # 10 tab, 0 Refill(s) Ciprofloxac 2015-0 Yes 500 mg = 1 Memoria in 500 MG 1-06 tab, PO, l Oral Tablet 09:05: Q12H, X 3 H ermann [Cipro] 00 day, # 6 tab, 0 Refill(s) Ondansetron 2016-0 Yes 4 mg = 1 Me moria 4 MG 1-06 tab, PO, l Disintegrat 09:05: BID, PRN He rmann ing Tablet 00 Nausea and [Zofran] Vomiting, Dissolve tab under tongue, X 5 day, # 10 tab, 0 Refill(s) Ciprofloxac 2015-0 Yes 500 mg = 1 Memoria in 500 MG 1-06 tab, PO, l Oral Tablet 09:05: Q12H, X 3 H ermann [Cipro] 00 day, # 6 tab, 0 Refill(s) Tylenol No Notes: Max Suleman lida -06 acetaminop l 05:56: hen 4000 [place] 00 mg/day (4 gm/day). (Same as: Tylenol Extra Strength) Tylenol No Notes: Max Suleman lida 1-06 acetaminop l 05:56: hen 4000 [place] 00 mg/day (4 gm/day). (Same as: Tylenol Extra Strength) Tylenol No Notes: Max Suleman lida 06 acetaminop l 05:56: hen 4000 [place] 00 mg/day (4 gm/day). (Same as: Tylenol Extra Strength) Tylenol No Notes: Max Suleman lida 1-06 acetaminop l 05:56: hen 4000 [place] 00 mg/day (4 gm/day). (Same as: Tylenol Extra Strength) Sodium No 1,000 mL, Memori a Chloride 06 1000 l 0.154 05:19: ml/hr, [place] MEQ/ML 00 Infuse Injectable Over: 1 Solution hr, Route: IV, 1,000, Drug form: INJ, ONCE, Priority: STAT, Dosing Weight 75.455 kg, Start date: 06/07/15 23:19:00, Duration: 1 doses or times, Stop date: 06/07/15 23:19:00 Saline No Notes: [facility] Flush 0.9% 06-08 (Same as: l 05:19: BD [place] 00 Posiflush) Morphine No Notes: [facility]oria 06-08 (Same l 05:19: as:MORPhin [place] 00 e Sulfate) Ondansetron No Notes: Suleman lida 06-08 (Same as: l 05:19: Zofran) [place] 00 MEDICATION WASTE Product Size: 4 mg Product Wasted: ___ mg Acetaminoph No Notes: Suleman lida en 325 MG / 06-08 (Same as: l Hydrocodone 05:19: Cullen Laureen nn Bitartrate 00 325/5) Do 5 MG Oral not exceed Tablet 4gm/day of acetaminop hen. Sodium No 1,000 mL, Memori a Chloride 06 1000 l 0.154 05:19: ml/hr, [place] MEQ/ML [...] Notes: [facility]oria 06-08 (Same l 05:19: as:MORPhin [place] 00 e Sulfate) Ondansetron 2016-0 No Notes: Suleman lida 1-06 (Same as: l 05:19: Zofran) [place] 00 MEDICATION WASTE Product Size: 4 mg Product Wasted: ___ mg Acetaminoph No Notes: Suleman lida en 325 MG / 06 (Same as: l Hydrocodone 05:19: Cullen Laureen nn Bitartrate 00 325/5) Do 5 MG Oral not exceed Tablet 4gm/day of acetaminop hen. Sodium No 1,000 mL, Memori a Chloride 1-06 1000 l 0.154 05:19: ml/hr, [place] MEQ/ML [...] Notes: [facility]oria 06-08 (Same l 05:19: as:MORPhin [place] 00 e Sulfate) Ondansetron No Notes: Suleman lida -06 (Same as: l 05:19: Zofran) [place] 00 MEDICATION WASTE Product Size: 4 mg Product Wasted: ___ mg Acetaminoph No Notes: Suleman lida en 325 MG / 06-08 (Same as: l Hydrocodone 05:19: Cullen Laureen nn Bitartrate 00 325/5) Do 5 MG Oral not exceed Tablet 4gm/day of acetaminop hen. Sodium No 1,000 mL, Memori a Chloride 1-06 1000 l 0.154 05:19: ml/hr, [place] MEQ/ML 00 Infuse Injectable Over: 1 Solution hr, Route: IV, 1,000, Drug form: INJ, ONCE, Priority: STAT, Dosing Weight 75.455 kg, Start date: 06/07/15 23:19:00, Duration: 1 doses or times, Stop date: 06/07/15 23:19:00 Saline No Notes: [facility] Flush 0.9% 06-08 (Same as: l 05:19: BD [place] 00 Posiflush) Morphine No Notes: [facility] 06-08 (Same l 05:19: as:MORPhin [place] 00 e Sulfate) Ondansetron No Notes: Suleman lida 06-08 (Same as: l 05:19: Zofran) [place] 00 MEDICATION WASTE Product Size: 4 mg Product Wasted: ___ mg Acetaminoph No Notes: Suleman lida en 325 MG / 06-08 (Same as: l Hydrocodone 05:19: Cullen Laureen nn Bitartrate 00 325/5) Do 5 MG Oral not exceed Tablet 4gm/day of acetaminop hen. Naproxen 2014-06 Yes 500 mg = 1 Mem oria 500 MG Oral -19 tab, PO, l Tablet 07:40: BID, PRN [place] [Naprosyn] 00 Pain, # 20 tab, 0 Refill(s) tramadol 2014-06 Yes 50 mg = 1 Suleman lida hydrochlori -19 tab, PO, l de 50 MG 07:40: BID, X 15 Herm teresa Oral Tablet 00 day, # 30 tab, 0 Refill(s) Naproxen 2014-06 Yes 500 mg = 1 Mem oria 500 MG Oral 1-19 tab, PO, l Tablet 07:40: BID, PRN [place] [Naprosyn] 00 Pain, # 20 tab, 0 Refill(s) tramadol 2014-06 Yes 50 mg = 1 Suleman lida hydrochlori -19 tab, PO, l de 50 MG 07:40: BID, X 15 Herm teresa Oral Tablet 00 day, # 30 tab, 0 Refill(s) Naproxen 2014-06 Yes 500 mg = 1 Mem oria 500 MG Oral 1-19 tab, PO, l Tablet 07:40: BID, PRN [place] [Naprosyn] 00 Pain, # 20 tab, 0 [...] Saline 2014-06 No Notes: [facility] Flush 0.9% -19 (Same as: l 05:44: BD [place] 00 Posiflush) Saline 2014-06 No Notes: [facility] Flush 0.9% 1-19 (Same as: l 05:44: BD [place] 00 Posiflush) Saline 2014-06 No Notes: [facility] Flush 0.9% 1-19 (Same as: l 05:44: BD [place] 00 Posiflush) Saline 2014-06 No Notes: [facility] Flush 0.9% -19 (Same as: l 05:44: BD [place] 00 Posiflush) Magic Mouth Yes 5 ml, Memor ia Wash 07 S&SPIT, l (Maalox/Car 16:35: QID, sore H ermann afate/Bendr 00 throat, # yl)1:1:1 180 ml, 0 Refill(s) Magic Mouth Yes 5 ml, Memor ia Wash 07 S&SPIT, l (Maalox/Car 16:35: QID, sore H ermann afate/Bendr 00 throat, # yl)1:1:1 180 ml, 0 Refill(s) [place] 0 Yes 5 ml, Memor ia Wash 07 S&SPIT, l (Maalox/Car 16:35: QID, sore H ermann afate/Bendr 00 throat, # yl)1:1:1 180 ml, 0 Refill(s) Magic [place]outh 0 Yes 5 ml, Memor ia Wash -07 S&SPIT, l (Maalox/Car 16:35: QID, sore H ermann afate/Bendr 00 throat, # yl)1:1:1 180 ml, 0 Refill(s) Acetaminoph No Notes: Max Memoria en 1-07 acetaminop l 15:49: hen 4000 [place] 00 mg/day (4 gm/day). (Same as: Tylenol Extra Strength) Ibuprofen No Notes: Memori a 1-07 (Same as: l 15:49: Motrin) [place] 00 "Do Not Crush" Take with food. Acetaminoph No Notes: Max Memoria en 1-07 acetaminop l 15:49: hen 4000 [place] 00 mg/day (4 gm/day). (Same as: Tylenol Extra Strength) Ibuprofen No Notes: Memori a 1-07 (Same as: l 15:49: Motrin) [place] 00 "Do Not Crush" Take with food. Acetaminoph No Notes: Max Memoria en 1-07 acetaminop l 15:49: hen 4000 [place] 00 mg/day (4 gm/day). (Same as: Tylenol Extra Strength) Ibuprofen No Notes: Memori a 1-07 (Same as: l 15:49: Motrin) [place] 00 "Do Not Crush" Take with food. Acetaminoph No Notes: Max Memoria en 1-07 acetaminop l 15:49: hen 4000 [place] 00 mg/day (4 gm/day). (Same as: Tylenol Extra Strength) Ibuprofen No Notes: Memori a 1- (Same as: l 15:49: Motrin) [place] 00 "Do Not Crush" Take with food. Dexamethaso No Notes: Suleman lida ne 06-09 Give with l 15:48: food. [place] 00 (Same As: Decadron) Bicillin No Notes: Memoria L-A 06-09 (penicilli l 15:48: n G [place] 00 benzathine 1.2 MilUnit/2 ml INJ) (Same as: Bicillin L-A, Permapen) NOT For Daily Use Dexamethaso No Notes: Suleman lida ne 06-09 Give with l 15:48: food. [place] 00 (Same As: Decadron) Bicillin No Notes: [facility]oria L-A 07 (penicilli l 15:48: n G [place] 00 benzathine 1.2 MilUnit/2 ml INJ) (Same as: Bicillin L-A, Permapen) NOT For Daily Use Dexamethaso No Notes: Suleman lida ne 06-09 Give with l 15:48: food. [place] 00 (Same As: Decadron) Bicillin No Notes: [facility] L-A 06-09 (penicilli l 15:48: n G [place] 00 benzathine 1.2 MilUnit/2 ml INJ) (Same as: Bicillin L-A, Permapen) NOT For Daily Use Dexamethaso No Notes: Suleman lida ne 06-09 Give with l 15:48: food. [place] 00 (Same As: Decadron) Bicillin No Notes: [facility] L-A 06-09 (penicilli l 15:48: n G [place] 00 benzathine 1.2 MilUnit/2 ml INJ) (Same as: Bicillin L-A, Permapen) NOT For Daily Use Dicyclomine 2013-0 Yes 10 mg = 1 M emoria Hydrochlori 8-21 cap, PO, l de 10 MG 04:48: QID, [place] Oral 00 abdominal Capsule cramping, [Bentyl] # 12 cap, 0 Refill(s) Dicyclomine 2013-0 Yes 10 mg = 1 M emoria Hydrochlori 8-21 cap, PO, l de 10 MG 04:48: QID, [place] Oral 00 abdominal Capsule cramping, [Bentyl] # 12 cap, 0 Refill(s) Dicyclomine 2013-0 Yes 10 mg = 1 M emoria Hydrochlori 8-21 cap, PO, l de 10 MG 04:48: QID, [place] Oral 00 abdominal Capsule cramping, [Bentyl] # 12 cap, 0 Refill(s) Dicyclomine 2013-0 Yes 10 mg = 1 M emoria Hydrochlori 8-21 cap, PO, l de 10 MG 04:48: QID, [place] Oral 00 abdominal Capsule cramping, [Bentyl] # 12 cap, 0 Refill(s) Morphine No Notes: Memoria 01-21 (Same l 02:32: as:MORPhin [place] 00 e Sulfate) Morphine No Notes: [facility] 8-21 (Same l 02:32: as:MORPhin [place] 00 e Sulfate) Morphine 2013-0 No Notes: [facility] 8-21 (Same l 02:32: as:MORPhin [place] 00 e Sulfate) Morphine 2013- No Notes: [facility] 8-21 (Same l 02:32: as:MORPhin [place] 00 e Sulfate) Omnipaque 2013-0 No Notes: Memori a 240 8-21 (Same l 02:01: as:Omnipaq [place] 00 ue 240) 12,000mg/5 0ml Ondansetron 2013-0 No Notes: Suleman lida 8-21 (Same as: l 02:01: Zofran) Joon Dilaudid 2013- No Notes: [facility]oria 8-21 Same as: l 02:01: Dilaudid [place] Omnipaque 0 No Notes: Memori a 240 8-21 (Same l 02:01: as:Omnipaq [place] 00 ue 240) 12,000mg/5 0ml Ondansetron 2013-0 No Notes: Suleman lida 8-21 (Same as: l 02:01: Zofran) [place] Dilaudid 2013- No Notes: [facility] 8-21 Same as: l 02:01: Dilaudid [place] 00 Omnipaque 2013-0 No Notes: Memori a 240 8-21 (Same l 02:01: as:Omnipaq [place] 00 ue 240) 12,000mg/5 0ml Ondansetron 2013-0 No Notes: Suleman lida 8-21 (Same as: l 02:01: Zofran) [place] 00 Dilaudid 2013-0 No Notes: Memoria 8-21 Same as: l 02:01: Dilaudid [place] 00 Omnipaque 2013-0 No Notes: Memori a 240 8-21 (Same l 02:01: as:Omnipaq [place] 00 ue 240) 12,000mg/5 0ml Ondansetron 2013-0 No Notes: Suleman lida 8-21 (Same as: l 02:01: Zofran) [place] 00 Dilaudid 2013-0 No Notes: Memoria 8-21 Same as: l 02:01: Dilaudid [place] 00 Saline 2014-0 No Notes: [facility] Flush 0.9% 8-21 (Same as: l 01:57: BD [place] Posiflush) Saline No Notes: [facility] Flush 0.9% 8-21 (Same as: l 01:57: BD [place] Posiflush) Saline No Notes: [facility] Flush 0.9% 8-21 (Same as: l 01:57: BD [place] Posiflush) Saline No Notes: [facility] Flush 0.9% 8-21 (Same as: l 01:57: BD [place] Posiflush) Famotidine Yes 20 mg = 1 [...] PO, l de 20 MG 00:55: QID, [place] Oral Tablet 00 abdominal [Bentyl] pain, # [...] n [Pepcid] 00 tab, 0 Refill(s) ondansetron 2014-0 Yes 4 mg = 1 Me moria 4 mg oral 7-17 tab, PO, l tablet 00:55: BID, # 10 Raheem n 00 tab, 0 Refill(s) Dicyclomine 2014-0 Yes 20 mg = 1 M emoria Hydrochlori 7-17 tab, PO, l de 20 MG 00:55: QID, [place] Oral Tablet 00 abdominal [Bentyl] pain, # 28 tab, 0 Refill(s) Famotidine 2014-0 Yes 20 mg = 1 Me moria 20 MG Oral 7-17 tab, PO, l Tablet 00:55: BID, # 28 Raheem n [Pepcid] 00 tab, 0 Refill(s) ondansetron 2014-0 Yes 4 mg = 1 Me moria 4 mg oral 7-17 tab, PO, l tablet 00:55: BID, # 10 Raheem n 00 tab, 0 Refill(s) Dicyclomine 2014-0 Yes 20 mg = 1 M emoria Hydrochlori 7-17 tab, PO, l de 20 MG 00:55: QID, [place] Oral Tablet 00 abdominal [Bentyl] pain, # 28 tab, 0 Refill(s) Morphine 2014-0 No 4 mg, Memoria 7-16 Route: l 23:47: IVP, Drug Joon 00 form: INJ, ONCE, Dosing Weight 73.182, kg, Priority: STAT, Start date: 12/16/13 18:47:00, Stop date: 12/16/13 18:47:00 Morphine 2014-0 No 4 mg, Memoria 7-16 Route: l 23:47: IVP, Drug [place] 00 form: INJ, ONCE, Dosing Weight 73.182, kg, Priority: STAT, Start date: 12/16/13 18:47:00, Stop date: 12/16/13 18:47:00 Morphine 2014-0 No 4 mg, Memoria 7-16 Route: l 23:47: IVP, Drug [place] 00 form: INJ, ONCE, Dosing Weight 73.182, kg, Priority: STAT, Start date: 12/16/13 18:47:00, Stop date: 12/16/13 18:47:00 Morphine 2014-0 No 4 mg, Memoria 7-16 Route: l [...] Notes: Memoria 7-16 (Same l 22:18: as:MORPhin [place] 00 e Sulfate) Morphine No Notes: Memoria 7-16 (Same l 22:18: as:MORPhin [place] 00 e Sulfate) Ondansetron No Notes: Suleman lida 7-16 (Same as: l 22:01: Zofran) [place] 00 Sodium No 1,000 mL, Memori a Chloride 7-16 1000 l 0.154 22:01: ml/hr, Joon MEQ/ML 00 Infuse Injectable Over: 1 Solution hr, Route: IV, 1,000, Drug form: INJ, ONCE, Priority: STAT, Dosing Weight 73.182 kg, Start date: 12/16/13 17:01:00, Duration: 1 doses or times, Stop date: 12/16/13 17:01:00 Saline No Notes: Memoria Flush 0.9% 7-16 (Same as: l 22:01: BD Joon Posiflush) Ondansetron No Notes: Suleman lida 7-16 (Same as: l 22:01: Zofran) [place] 00 Sodium No 1,000 mL, Memori a Chloride 7-16 1000 l 0.154 22:01: ml/hr, Joon MEQ/ML 00 Infuse Injectable Over: 1 Solution hr, Route: IV, 1,000, Drug form: INJ, ONCE, Priority: STAT, Dosing Weight 73.182 kg, Start date: 12/16/13 17:01:00, Duration: 1 doses or times, Stop date: 12/16/13 17:01:00 Saline No Notes: Memoria Flush 0.9% 7-16 (Same as: l 22:01: BD Joon 00 Posiflush) Ondansetron No Notes: Suleman lida 7-16 (Same as: l 22:01: Zofran) [place] 00 Sodium No 1,000 mL, Memori a Chloride 7-16 1000 l 0.154 22:01: ml/hr, [place] MEQ/ML 00 Infuse Injectable Over: 1 Solution hr, Route: IV, 1,000, Drug form: INJ, ONCE, Priority: STAT, Dosing Weight 73.182 kg, Start date: 12/16/13 17:01:00, Duration: 1 doses or times, Stop date: 12/16/13 17:01:00 Saline No Notes: Memoria Flush 0.9% 7-16 (Same as: l 22:01: BD Joon 00 Posiflush) Ondansetron No Notes: Suleman lida 7-16 (Same as: l 22:01: Zofran) [place] Sodium No 1,000 mL, Memori a Chloride 7-16 1000 l 0.154 22:01: ml/hr, Joon MEQ/ML 00 Infuse Injectable Over: 1 Solution hr, Route: IV, 1,000, Drug form: INJ, ONCE, Priority: STAT, Dosing Weight 73.182 kg, Start date: 12/16/13 17:01:00, Duration: 1 doses or times, Stop date: 12/16/13 17:01:00 Saline No Notes: Memoria Flush 0.9% 7-16 (Same as: l 22:01: BD [place] 00 Posiflush) Immunizations Ordered Immunization Filled Immunization Date Status Commen ts Source Name Name diphtheria/pertussis 2018-02-26 Completed [facility] , acel/tetanus adult 20:01:00 [facility] teresa diphtheria/pertussis 2018-02-26 Completed [facility] , acel/tetanus adult 20:01:00 Herm teresa diphtheria/pertussis 2018-02-26 Completed [facility] , acel/tetanus adult 20:01:00 [facility] teresa diphtheria/pertussis 2018-02-26 Completed [facility] , acel/tetanus adult 20:01:00 Herm teresa tetanus-diphtheria 2011-05-07 Completed [facility] toxoids 22:25:00 [place] tetanus-diphtheria 2011-05-07 Completed [facility] toxoids 22:25:00 [facility] tetanus-diphtheria 2011-05-07 Completed [facility] toxoids 22:25:00 [facility] tetanus-diphtheria 2011-05-07 Completed [facility] toxoids 22:25:00 [facility] tetanus-diphtheria 2011-05-07 Completed [facility] toxoids 22:25:00 [facility] tetanus-diphtheria 2011-05-07 Completed [facility] toxoids 22:25:00 [facility] tetanus-diphtheria 2011-05-07 Completed [facility] toxoids 22:25:00 [facility] tetanus-diphtheria 2011-05-07 Completed [facility] toxoids 22:25:00 [place] Vital Signs Vital Name Observation Time Observation Value Comments Source Systolic blood 2021-08-21 16:37:00 158 mm[Hg] Lakeshia Seybold pressure Diastolic blood 2021-08-21 16:37:00 78 mm[Hg] Kelse y Seybold pressure Heart rate 2021-08-21 16:37:00 80 /min Lakeshia S hiralbold Body temperature 2021-08-21 16:37:00 36.83 Tiffany Valarie ey Seybold Respiratory rate 2021-08-21 16:37:00 16 /min Valarie ey Seybold Body height 2021-08-21 16:37:00 160 cm Lakeshia S eybold Body weight 2021-08-21 16:37:00 88.089 kg Lakeshia S eybold BMI 2021-08-21 16:37:00 34.40 kg/m2 Lakeshia S eybold Height 2020-05-28 05:09:00 157.48 CM Weight 2020-05-28 05:09:00 72.57 KG Temperature Oral (F) 2021-11-16 20:56:00 99 F [facility] [place] Heart Rate 2021-11-16 20:56:00 [facility] [place] Respitory Rate 2021-11-16 20:56:00 [facility] Systolic (mm Hg) 2021-11-16 20:56:00 [facility] rial [place] Diastolic (mm Hg) 2021-11-16 20:56:00 [facility] [place] Height 2021-11-16 17:15:00 160.02 cm [facility] BMI Calculated 2021-11-16 17:15:00 [facility] [place] Weight 2021-11-16 17:15:00 [facility] Systolic (mm Hg) 2021-11-16 17:15:00 [facility] rial [place] Diastolic (mm Hg) 2021-11-16 17:15:00 [facility] [place] Heart Rate 2021-11-16 17:15:00 [facility] [place] Respitory Rate 2021-11-16 17:15:00 [facility] Temperature Oral (F) 2021-11-16 17:15:00 101 F [facility] Systolic (mm Hg) 2021-11-14 20:02:00 [facility] Diastolic (mm Hg) 2021-11-14 20:02:00 [facility] [place] Heart Rate 2021-11-14 20:02:00 [facility] Respitory Rate 2021-11-14 20:02:00 [facility] Temperature Oral (F) 2021-11-14 20:02:00 98.3 F [facility] Height 2021-11-14 16:59:00 160.02 cm [facility] [place] BMI Calculated 2021-11-14 16:59:00 [facility] [place] Weight 2021-11-14 16:59:00 [facility] [place] Systolic (mm Hg) 2021-11-14 16:59:00 [facility] rial [facility] Diastolic (mm Hg) 2021-11-14 16:59:00 [facility] [place] Heart Rate 2021-11-14 16:59:00 [facility] Respitory Rate 2021-11-14 16:59:00 [facility] Temperature Oral (F) 2021-11-14 16:59:00 98.9 F [facility] Heart Rate 2021-08-29 00:28:00 [facility] Respitory Rate 2021-08-29 00:28:00 [facility] Systolic (mm Hg) 2021-08-29 00:28:00 [facility] Diastolic (mm Hg) 2021-08-29 00:28:00 [facility] [place] Height 2021-08-28 21:23:00 162.56 cm [facility] [place] BMI Calculated 2021-08-28 21:23:00 [facility] Weight 2021-08-28 21:23:00 [facility] [place] Systolic (mm Hg) 2021-08-28 21:23:00 S[facility] rial [place] Diastolic (mm Hg) 2021-08-28 21:23:00 [facility] [place] Heart Rate 2021-08-28 21:23:00 [facility] [place] Respitory Rate 2021-08-28 21:23:00 [facility] Temperature Oral (F) 2021-08-28 21:23:00 98.2 F [facility] [place] Temperature Oral (F) 2020-01-25 09:12:00 98.2 F [facility] [place] Systolic (mm Hg) 2020-01-25 09:12:00 [facility] Diastolic (mm Hg) 2020-01-25 09:12:00 [facility] Respitory Rate 2020-01-25 09:12:00 [facility] Heart Rate 2020-01-25 09:12:00 [facility] [place] Height 2020-01-25 05:25:00 160.02 cm [facility] BMI Calculated 2020-01-25 05:25:00 [facility] Weight 2020-01-25 05:25:00 [facility] Systolic (mm Hg) 2020-01-25 05:25:00 [facility] rial [place] Diastolic (mm Hg) 2020-01-25 05:25:00 [facility] [place] Heart Rate 2020-01-25 05:25:00 [facility] [place] Respitory Rate 2020-01-25 05:25:00 [facility] [place] Temperature Oral (F) 2020-01-25 05:25:00 98.2 F [facility] Systolic (mm Hg) 2019-07-18 20:14:00 [facility] Diastolic (mm Hg) 2019-07-18 20:14:00 [facility] Heart Rate 2019-07-18 20:14:00 [facility] [place] Respitory Rate 2019-07-18 20:14:00 [facility] [place] Temperature Oral (F) 2019-07-18 20:14:00 98.5 F [facility] [place] Height 2019-07-18 20:14:00 160.02 cm [facility] [place] BMI Calculated 2019-07-18 20:14:00 [facility] [place] Weight 2019-07-18 20:14:00 [facility] Systolic (mm Hg) 2019-07-09 00:55:00 [facility] rial [place] Diastolic (mm Hg) 2019-07-09 00:55:00 [facility] Respitory Rate 2019-07-09 00:55:00 [facility] [place] Heart Rate 2019-07-09 00:55:00 [facility] [place] Temperature Oral (F) 2019-07-09 00:55:00 99.5 F [facility] Systolic (mm Hg) 2019-07-08 23:31:00 [facility] Diastolic (mm Hg) 2019-07-08 23:31:00 [facility] [place] Heart Rate 2019-07-08 23:31:00 [facility] [place] Respitory Rate 2019-07-08 23:31:00 [facility] [place] Temperature Oral (F) 2019-07-08 23:31:00 98.4 F [facility] Height 2019-07-08 23:31:00 160.02 cm [facility] [place] BMI Calculated 2019-07-08 23:31:00 [facility] Weight 2019-07-08 23:31:00 [facility] Temperature Oral (F) 2018-02-26 22:56:00 98.5 F [facility] Systolic (mm Hg) 2018-02-26 22:56:00 [facility] Diastolic (mm Hg) 2018-02-26 22:56:00 [facility] [place] Heart Rate 2018-02-26 22:56:00 [facility] [place] Respitory Rate 2018-02-26 22:56:00 [facility] Respitory Rate 2018-02-26 20:36:00 [facility] [place] Temperature Oral (F) 2018-02-26 20:36:00 98.6 F [facility] [place] Systolic (mm Hg) 2018-02-26 20:36:00 [facility] Diastolic (mm Hg) 2018-02-26 20:36:00 [facility] [place] Heart Rate 2018-02-26 20:36:00 [facility] [place] Temperature Oral (F) 2018-02-26 19:50:00 99.1 F [facility] [place] Weight 2018-02-26 19:50:00 [facility] Heart Rate 2018-02-26 19:50:00 [facility] Systolic (mm Hg) 2018-02-26 19:50:00 [facility] rial [place] Diastolic (mm Hg) 2018-02-26 19:50:00 [facility] [place] Respitory Rate 2018-02-26 19:50:00 [facility] [place] Respitory Rate 2016-11-19 03:43:00 [facility] [place] Systolic (mm Hg) 2016-11-19 03:43:00 [facility] Diastolic (mm Hg) 2016-11-19 03:43:00 [facility] [place] Respitory Rate 2016-11-19 02:00:00 [facility] Systolic (mm Hg) 2016-11-19 02:00:00 [facility] [place] Diastolic (mm Hg) 2016-11-19 02:00:00 [facility] Respitory Rate 2016-11-19 01:42:00 [facility] [place] Systolic (mm Hg) 2016-11-19 01:42:00 [facility] [place] Diastolic (mm Hg) 2016-11-19 01:42:00 [facility] Heart Rate 2016-11-19 00:48:00 [facility] [place] Weight 2016-11-19 00:23:00 [facility] [place] Temperature Oral (F) 2016-11-19 00:23:00 99.6 F [facility] [place] Height 2016-11-19 00:23:00 160.02 cm [facility] [place] BMI Calculated 2016-11-19 00:23:00 [facility] Heart Rate 2016-11-19 00:23:00 [facility] [place] Respitory Rate 2015-07-28 11:56:00 [facility] Heart Rate 2015-07-28 11:56:00 [facility] [place] Temperature Oral (F) 2015-07-28 11:56:00 98.2 F [facility] Systolic (mm Hg) 2015-07-28 11:56:00 [facility] Diastolic (mm Hg) 2015-07-28 11:56:00 [facility] [place] Temperature Oral (F) 2015-07-28 10:03:00 98.1 F [facility] Height 2015-07-28 10:03:00 167.64 cm [facility] Weight 2015-07-28 10:03:00 [facility] BMI Calculated 2015-07-28 10:03:00 [facility] [place] Systolic (mm Hg) 2015-07-28 10:03:00 [facility] Diastolic (mm Hg) 2015-07-28 10:03:00 [facility] [place] Respitory Rate 2015-07-28 10:03:00 [facility] Heart Rate 2015-07-28 10:03:00 [facility] Systolic (mm Hg) 2015-06-08 07:40:00 [facility] [place] Diastolic (mm Hg) 2015-06-08 07:40:00 [facility] Temperature Oral (F) 2015-06-08 07:40:00 99.4 F [facility] [place] Respitory Rate 2015-06-08 07:40:00 [facility] Heart Rate 2015-06-08 07:40:00 [facility] [place] Weight 2015-06-08 05:16:00 [facility] [place] BMI Calculated 2015-06-08 05:16:00 [facility] [place] Height 2015-06-08 05:16:00 160.02 cm [facility] Temperature Oral (F) 2015-06-08 05:16:00 102.5 F [facility] [place] Respitory Rate 2015-06-08 05:16:00 [facility] Heart Rate 2015-06-08 05:16:00 [facility] [place] Systolic (mm Hg) 2015-06-08 05:16:00 [facility] [place] Diastolic (mm Hg) 2015-06-08 05:16:00 [facility] Systolic (mm Hg) 2015-04-21 07:26:00 [facility] [place] Diastolic (mm Hg) 2015-04-21 07:26:00 [facility] [place] Respitory Rate 2015-04-21 07:26:00 [facility] Heart Rate 2015-04-21 07:26:00 [facility] [place] Weight 2015-04-21 05:43:00 [facility] [place] Temperature Oral (F) 2015-04-21 05:43:00 98.4 F [facility] BMI Calculated 2015-04-21 05:43:00 [facility] [place] Height 2015-04-21 05:43:00 160.02 cm [facility] Systolic (mm Hg) 2015-04-21 05:43:00 [facility] rial [place] Diastolic (mm Hg) 2015-04-21 05:43:00 [facility] Respitory Rate 2015-04-21 05:43:00 [facility] Heart Rate 2015-04-21 05:43:00 [facility] Diastolic (mm Hg) 2014-06-09 16:33:00 [facility] Systolic (mm Hg) 2014-06-09 16:33:00 [facility] Heart Rate 2014-06-09 16:33:00 [facility] Respitory Rate 2014-06-09 16:33:00 [facility] Temperature Oral (F) 2014-06-09 16:33:00 99.8 F [facility] Diastolic (mm Hg) 2014-06-09 15:37:00 [facility] [place] Systolic (mm Hg) 2014-06-09 15:37:00 [facility] [place] Heart Rate 2014-06-09 15:37:00 [facility] Respitory Rate 2014-06-09 15:37:00 [facility] Temperature Oral (F) 2014-06-09 15:37:00 100.9 F [facility] Height 2014-06-09 15:37:00 160.02 cm [facility] Weight 2014-06-09 15:37:00 [facility] BMI Calculated 2014-06-09 15:37:00 [facility] Respitory Rate 2014-01-21 04:47:00 [facility] Systolic (mm Hg) 2014-01-21 04:47:00 [facility] [place] Heart Rate 2014-01-21 04:47:00 [facility] [place] Diastolic (mm Hg) 2014-01-21 04:47:00 [facility] Temperature Oral (F) 2014-01-21 04:47:00 97.8 F [facility] Diastolic (mm Hg) 2014-01-21 03:31:00 [facility] Systolic (mm Hg) 2014-01-21 03:31:00 [facility] [place] Respitory Rate 2014-01-21 03:31:00 [facility] Heart Rate 2014-01-21 03:31:00 [facility] [place] Heart Rate 2014-01-21 01:00:00 [facility] [place] Respitory Rate 2014-01-21 01:00:00 [facility] Systolic (mm Hg) 2014-01-21 01:00:00 [facility] [place] Diastolic (mm Hg) 2014-01-21 01:00:00 [facility] BMI Calculated 2014-01-20 20:25:00 [facility] [place] Weight 2014-01-20 20:25:00 [facility] Temperature Oral (F) 2014-01-20 20:25:00 98.6 F [facility] [place] Height 2014-01-20 20:25:00 160.02 cm [facility] Diastolic (mm Hg) 2013-12-17 01:20:00 [facility] [place] Systolic (mm Hg) 2013-12-17 01:20:00 [facility] Respitory Rate 2013-12-17 01:20:00 [facility] [place] Heart Rate 2013-12-17 01:20:00 [facility] Heart Rate 2013-12-17 00:00:00 [facility] [place] Respitory Rate 2013-12-17 00:00:00 [facility] [place] Systolic (mm Hg) 2013-12-17 00:00:00 [facility] Diastolic (mm Hg) 2013-12-17 00:00:00 [facility] Weight 2013-12-16 21:18:00 [facility] Height 2013-12-16 21:18:00 160.02 cm [facility] [place] BMI Calculated 2013-12-16 21:18:00 [facility] Respitory Rate 2013-12-16 21:18:00 [facility] Temperature Oral (F) 2013-12-16 21:18:00 98.7 F [facility] [place] Heart Rate 2013-12-16 21:18:00 [facility] Diastolic (mm Hg) 2013-12-16 21:18:00 [facility] [place] Systolic (mm Hg) 2013-12-16 21:18:00 [facility] [place] Weight 2013-12-03 04:25:00 [facility] [place] Systolic (mm Hg) 2013-12-03 04:25:00 [facility] rial [place] Heart Rate 2013-12-03 04:25:00 [facility] [place] Respitory Rate 2013-12-03 04:25:00 [facility] [place] Diastolic (mm Hg) 2013-12-03 04:25:00 [facility] [place] Temperature Oral (F) 2013-12-03 04:25:00 98.4 F [facility] BMI Calculated 2013-12-03 04:25:00 [facility] Height 2013-12-03 04:25:00 160.02 cm [facility] Procedures Procedure Date / Time Performed Performing Clinician [facility] CHEST PA LATERAL 2021-08-21 17:38:44 Rosette Garcia Seyb old COVID-19 QUALITATIVE 2020-04-27 20:45:00 Juan Jose Wilkins [facility] RT-PCR Karl Appendectomy [facility] Plan of Care Planned Activity Planned Date Details Comments Source Future Scheduled 2022-09-01 [facility] (#1) [code = COVID-19 VACCINE (#1)] Future Scheduled 2022-09-01 INFLUENZA VACCINE Method [facility] Test 01:50:39 [code = INFLUENZA VACCINE] Future Scheduled 2022-05-18 [facility] 19:13[facility]25 (#1) [code = COVID-19 VACCINE (#1)] Future Scheduled 2022-05-18 INFLUENZA VACCINE Method [facility] Test 19:13:25 [code = INFLUENZA VACCINE] Future Scheduled 2022-05-18 [facility] 19:13[facility]25 (#1) [code = COVID-19 VACCINE (#1)] Future Scheduled 2022-05-18 INFLUENZA VACCINE Method [facility] Test 19:13:25 [code = INFLUENZA VACCINE] Future Scheduled 2022-05-18 [facility] 19:13[facility]25 (#1) [code = COVID-19 VACCINE (#1)] Future Scheduled 2022-05-18 INFLUENZA VACCINE Method [facility] Test 19:13:25 [code = INFLUENZA VACCINE] Future Scheduled 2022-05-18 [facility] 19:13[facility]25 (#1) [code = COVID-19 VACCINE (#1)] Future Scheduled 2022-05-18 INFLUENZA VACCINE Method [facility] Test 19:13:25 [code = INFLUENZA VACCINE] Future Scheduled 2022-04-07 [facility] Test 06:27:26 VACCINES (1 of 3 - 3-dose series) [code = HEPATITIS B VACCINES (1 of 3 - 3-dose series)] Future Scheduled 2022-04-07 [facility] 06:27:26 (#1) [code = COVID-19 VACCINE (#1)] Future Scheduled 2022-04-07 [facility] Test 06:27:26 [code = INFLUENZA VACCINE] Future Scheduled COVID[facility] (1) [code = COVID-19 VACCINE (1)] Future Scheduled INFLUENZA VACCINE Method [facility] Test [code = INFLUENZA VACCINE] Encounters Start End Encounter Admission Attending Care Care Encounter Source Date/Time Date/Time Type Type Clinicians Facility Department ID 2022-06-[address] [facility] [id number] [place] 04:16:50 [id number] [facility] 2022-05-[address] [facility] [id number] [place] 07:15:49 [id number] [facility] 2022-04-[address] [facility] [id number] [place] 10:15:19 [id number] [facility] 2022-08-06 2022-08-06 Outpatient SCOBERCEA, [facility] [id number] [place] 11:00:00 11:00:00 [facility] 2022-06-25 2022-06-25 Office Carole [facility] 1.2.840.114 1 [id number] [place] 11:00:00 11:32:51 Visit [facility] [id number] H [facility] [id number] [id number] 1 2022-05-18 2022-05-18 Outpatient SCMATT, [facility] [id number] [place] 10:40:00 10:40:00 [facility] 2022-05-10 2022-05-10 Outpatient SCYAHAIRACEA, [facility] [id number] [place] 11:00:00 11:00:00 [facility] 2022-01-11 2022-02-10 OP Therapy nullFlavo SMR [id number] Memoria 20:00:00 04:59:00 Patients travis Raya 01 l [facility] 2022-01-11 2022-02-10 OP Therapy nullFlavo SMR [id number] Memoria 20:00:00 04:59:00 Patients r Kaylan l [facility] 2022-01-11 2022-02-09 Outpatient Carole, 2.16.840. 2.16.840.1 . [id number] 15:00:00 23:59:00 Adalid [id number]. [id number] 01 Taran 3.615.132 5.132 2022-02-08 2022-02-08 Office Scobercekenia, [facility] 1.2.840.114 1 [id number] [place] 14:40:00 15:20:20 Visit Adalid RAYA [id number] H ealth K 9.2.7.2.686 [id number] 1 2021-12-07 2022-01-06 OP Therapy nullFlavo SMR [id number] Memoria 20:46:00 04:59:00 Patients r [place] 00 l [facility] 2021-12-07 2022-01-06 OP Therapy nullFlavo SMR [id number] Memoria 20:46:00 04:59:00 Patients r [place] 00 l [facility] 2021-12-07 2022-01-05 Outpatient Carole, 2.16.840. 2.16.840.1 . [id number] 15:46:00 23:59:00 Adalid [id number]. [id number] 00 Taran 3.615.132 5.132 2022-01-05 2022-01-05 Telephone Jovanna Villafuerte [facility] 1.2.84 0.114 [id number] [place] 00:00:00 00:00:00 Jovanna Villafuerte 350.1.13.58 Health K 9.2.7.2.686 [id number] 1 2022-01-04 2022-01-04 Office Scobermaribel, [facility] 1.2.840.114 1 [id number] [place] 08:00:00 09:07:35 Visit dAalid RAYA 350.1.13.58 H ealth K 9.2.7.2.686 [id number] 1 2021-11-23 2021-11-23 Office Scmatt, [facility] 1.2.840.114 1 [id number] [place] 13:40:00 14:15:40 Visit Adalid RAYA 350.1.13.58 H ealth K 9.2.7.2.686 [id number] 1 2021-11-23 2021-11-23 Telephone Jovanna Villafuerte [facility] 1.2.84 0.114 [id number] [place] 00:00:00 00:00:00 Jovanna Villafuerte 350.1.13.58 Health K 9.2.7.2.686 [id number] 1 2021-11-16 2021-11-16 Emergency [facility]Fl[facility] [id number] Memoria 16:59:48 20:59:[address] [facility] 2021-11-16 2021-11-16 Emergency [facility]Flavo [facility] [id number] Memoria 16:59:48 20:59:00 r Joon [address] [place] [address] 2021-11-16 2021-11-16 Outpatient Maritza [facility] [id number] 11:59:48 15:59:00 Rosana Ramos [place] 2021-11-16 2021-11-16 Emergency Carlie [place]UCEDO [place] 7516 MHNE 11:59:00 15:59:00 ROSANA 2021-11-14 2021-11-14 Emergency nullFlavo [facility] [id number] Memoria 16:53:27 20:08:[address] [facility] 2021-11-14 2021-11-14 Emergency nullFlavo [facility] [id number] Memoria 16:53:27 20:08:[address] [facility] 2021-11-14 2021-11-14 Outpatient Kathe [facility] [id number] 11:53:27 15:08:00 Etienne Iqbal 15 2021-11-14 2021-11-14 Emergency E KATHE [place] 7515 MHNE 11:53:00 15:08:00 ETIENNE 2021-10-27 2021-10-27 Telephone Jovanna Villafuerte [facility] 1.2.84 0.114 [id number] [place] 00:00:00 00:00:00 Jovanna Villafuerte 350.1.13.58 Health K 9.2.7.2.686 [id number] 1 2021-10-26 2021-10-26 Office Carole [facility] 1.2.840.114 1 [id number] [place] 13:40:00 14:38:19 Visit Adalid RAYA 350.1.13.58 H ealth K 9.2.7.2.686 [id number] 1 2021-10-23 2021-10-23 Telephone MarcelleHelenCassandra Yessy Moore [facility] 1.2.840.114 [id number] [place] 00:00:00 00:00:00 Vianey Yessy RAOWOOD 350.1. 13.58 Health K 9.2.7.2.686 [id number] 1 2021-10-19 2021-10-19 Office SAM Lam [facility] 1.2.840.114 1 [id number] [place] 15:00:00 15:50:13 Visit Adalid RAYA 350.1.13.58 H ealth K 9.2.7.2.686 [id number] 1 2021-09-21 2021-09-21 Telephone Jovanna Villafuerte [facility] 1.2.84 0.114 [id number] [place] 00:00:00 00:00:00 Jovanna Villafuerte 350.1.13.58 Health K 9.2.7.2.686 [id number] 1 2021-09-20 2021-09-20 Office Carole [facility] 1.2.840.114 1 [id number] [place] 08:00:00 08:28:13 Visit Adalid RAYA 350.1.13.58 H ealth K 9.2.7.2.686 [id number] 1 2021-09-04 2021-09-04 Office Carole [facility] 1.2.840.114 1 [id number] [place] 08:30:00 09:03:56 Visit Adalid RAYA 350.1.13.58 H ealth K 9.2.7.2.686 [id number] 1 2021-09-04 2021-09-04 Telephone Noy Jovanna [facility] 1.2.84 0.114 [id number] [place] 00:00:00 00:00:00 Jovanna Villafuerte 350.1.13.58 Health K 9.2.7.2.686 [id number] 1 2021-08-28 2021-08-29 [id number] Mem[facility] 21:14:43 00:41:00 r Joon 14 l [facility] 2021-08-28 2021-08-29 Emergency Pending sale to [facility] [id number] Memoria 21:14:43 00:41:[address] [facility] 2021-08-29 2021-08-29 Abstract SAM Lam ORTHO 1.2.840.114 [id number] [place] 00:00:00 00:00:00 Adalid PEREZBENJAMINFANY 350.1..58 Health A 9.2.7.2.686 [id number] 1 2021-08-28 2021-08-28 Outpatient Yaw [facility] [id number] 16:14:43 19:41:00 Cora Santos 2021-08-28 2021-08-28 Emergency E JOE JACOBS [facility] [id number] [place] 16:14:00 19:41:00 CORA 2021-08-21 2021-08-21 Outpatient LAKESHIA ARELLANO [id number] [place] 12:15:00 12:15:00 Seflako emery 2021-08-21 2021-08-21 [facility] 1.2.840.114 [id number] [place] 11:15:00 11:30:[address] [facility] 350.1.13.13 terrance AND 1.2.7.2.686 DIAGNOSTI [id number] [facility] 0 2020-05-28 2020-05-28 Emergency E TIM [facility] [id number] [facility] 05:09:00 08:44:00 RUBIA [facility] 2020-04-27 2020-04-27 Lab Franky 1.2.840.1 [id number] Methodi 14:20:42 14:25:42 Juan Jose 66420.1.1 253 [facility] 3.430.2.7 Hospit a .[id number] l .8 2020-01-25 2020-01-25 Emergency [facility]Fl[facility] [id number] Memoria 05:08:59 09:40:00 r [place] 13 l [facility] 2020-01-25 2020-01-25 Emergency [facility]Flavo [facility] [id number] Memoria 05:08:59 09:40:00 r Joon 13 l [facility] 2020-01-25 2020-01-25 Outpatient [facility] [id number] 00:08:59 04:40:00 Hoon 13 2020-01-25 2020-01-25 Emergency E CHRIS FUENTES [facility] [place] 7513 NW 00:08:00 04:40:00 2019-07-18 2019-07-18 Emergency [facility]Flavo [facility] [id number] Memoria 20:06:56 21:00:00 r Joon 12 l [facility] 2019-07-18 2019-07-18 Emergency [facility]Flavo [facility] [id number] Memoria 20:06:56 21:00:00 r Joon 12 l [facility] 2019-07-18 2019-07-18 Outpatient Arvind, [facility] [id number] 14:06:56 15:00:00 Dante [place] 2019-07-18 2019-07-18 Emergency E ARVIND, NW [facility] 7512 NW 14:06:00 15:00:00 [facility] 2019-07-08 2019-07-09 Emergency [facility]Flavo [facility] [id number] Memoria 23:22:36 01:01:00 r Joon 11 l [facility] 2019-07-08 2019-07-09 [facility] [id number] Memoria 23:22:36 01:01:00 r Joon 11 l [facility] 2019-07-08 2019-07-08 Outpatient DARRICK, [facility] [id number] [facility] 17:00:00 23:59:00 FARID 2019-07-08 2019-07-08 Outpatient Jethro, [facility] [id number] 17:22:36 19:01:00 Angel Sauer 2019-07-08 2019-07-08 Emergency E JETHRO, NW [facility] [id number] NW 17:22:00 19:01:00 ANGEL 2018-02-26 2018-02-26 [facility] [id number] Memoria 19:48:00 23:07:00 travis Dupree Víctor l [facility] 2018-02-26 2018-02-26 [facility] [id number] Memoria 19:48:00 23:07:00 travis Dupree Víctor l [facility] 2018-02-26 2018-02-26 Outpatient Ndum, [facility] [id number] 14:48:00 18:07:00 Maximilian Víctor Alvarado 2017-07-03 2017-07-03 Outpatient [facility] [id number] [place] 00:00:00 00:00:00 [facility] 2017-06-28 2017-06-29 Outpatient [facility] [id number] [place] 00:00:00 00:00:00 [facility] 2017-06-23 2017-06-23 Emergency E GERRI DYE [facility] [id number] [place] 11:52:00 13:51:00 [facility] 2017-06-21 2017-06-22 Emergency E JIMÉNEZ [facility] [id number] [place] 23:24:00 02:15:00 [facility] 2016-11-19 2016-11-19 [facility] [id number] Memoria 00:07:00 04:39:00 travis Banda l [facility] 2016-11-19 2016-11-19 [facility] [id number] Memoria 00:07:00 04:39:00 travis Banda l [facility] 2016-11-18 2016-11-18 Outpatient Elias See [facility] [id number] 19:07:00 23:39:00 2016-11-09 2016-11-09 Emergency E TESHA [facility] [id number] [place] 12:10:00 13:05:00 [facility] 2015-07-28 2015-07-28 [facility] [id number] [facility] 10:00:00 12:25:00 Emergency r J[place] 08 l [facility] 2015-07-28 2015-07-28 [facility] [id number] [facility] 10:00:00 12:25:00 Emergency r Joon 08 l [facility] 2015-07-28 2015-07-28 Outpatient AllisonGEOVANNA hackettR [facility] [id number] 04:00:00 06:25:00 Renetta 2015-06-08 2015-06-08 EC nullFlavo [facility] [id number] [facility] 04:27:00 09:31:00 Emergency r [place] 07 l [facility] 2015-06-08 2015-06-08 EC nullFlavo [facility] [id number] [facility] 04:27:00 09:31:00 Emergency r Joon 07 l [facility] 2015-06-07 2015-06-08 Outpatient Yaw [facility] [id number] 22:27:00 03:31:00 Duglasmehran Santos 2015-04-21 2015-04-21 EC nullFlavo [facility] [id number] 475 [facility] 05:24:00 07:48:00 Emergency r J[place] 06 l [facility] 2015-04-21 2015-04-21 EC nullFlavo [facility] [id number] [facility] 05:24:00 07:48:00 Emergency r [place] 06 l [facility] 2015-04-20 2015-04-21 Outpatient See Griffin [facility] [id number] 23:24:00 01:48:00 Gaurav 2014-06-09 2014-06-09 EC nullFlavo [facility] [id number] [facility] 15:32:00 16:43:00 Emergency r [place] 05 l [facility] 2014-06-09 2014-06-09 EC nullFlavo [facility] [id number] [facility] 15:32:00 16:43:00 Emergency r J[place] 05 l [facility] 2014-06-09 2014-06-09 Outpatient Lluvia, 2.16.840. 2.16.840.1. 3 [id number] 09:32:00 10:43:00 Joslyn Gandhi [id number] 05 3.615.0.1 5.0.897 30 0710-08-20 2014-01-21 EC nullFlavo [facility] [id number] 475 [facility]oria 20:22:00 04:57:00 Emergency r [place] 04 l [facility] 2014-01-20 2014-01-21 EC nullFlavo [facility] [id number] [facility] 20:22:00 04:57:00 Emergency r Joon 04 [facility] 2014-01-20 2014-01-20 Outpatient Ritchie Vickers 2.16.840. 2.16.840.1. [id number] 15:22:00 23:57:00 Pop [id number] 3.615.0.1 5.0.981 55 2313-07-16 2013-12-17 EC elijahFlavo [facility] [id number] Memoria 21:09:00 01:25:00 Emergency r [place] 03 [facility] 2013-12-16 2013-12-17 EC elijahFlavo [facility] [id number] 475 Memoria 21:09:00 01:25:00 Emergency r J[place] 03 [facility] 2013-12-16 2013-12-16 Outpatient Yaw, 2.16.840. 2.16.840.1. 3 [id number] 16:09:00 20:25:00 Christopher [id number]. [id number] 03 Tom 3.615.0.1 5.0.349 47 9662-07-03 2013-12-03 EC Gregorioo [facility] [id number] Memoria 03:54:00 06:38:00 Emergency r J[place] 02 [facility] 2013-12-03 2013-12-03 elijahFlavo [facility] [id number] 475 [facility] 03:54:00 06:38:00 Emergency r [place] 02 [facility] 2013-12-02 2013-12-03 Outpatient Yaw, 2.16.840. 2.16.840.1. 3 [id number] 22:54:00 01:38:00 Christopher [id number]. [id number] 02 Tom 3.615.0.1 5.0.101 01 Results Test Description Test Time Test Comments Results Result Comments Source CHEM PANEL 2021-11-16 17:23:00 Test Item Value Reference Range Interpretation Comme nts Glucose Lvl (test code = Glucose Lvl) 85 70-99 [place] 030102-06-16 17:23:00 Test Item Value Reference Range Interpretation Comments BUN (test code = BUN) 13 7-22 [place] [address]-06-16 17:23:00 Test Item Value Reference Range Interpretation Comments Creatinine Lvl (test code = Creatinine 1.21 0.50-1.40 Lvl) [place] 030102-06-16 17:23:00 Test Item Value Reference Range Interpretation Comments Sodium Lvl (test code = Sodium Lvl) 142 135-145 [place] 030102-06-16 17:23:00 Test Item Value Reference Range Interpretation Comments Potassium Lvl (test code = Potassium 3.8 3.5-5.1 Lvl) [place] 030102-06-16 17:23:00 Test Item Value Reference Range Interpretation Comments Chloride Lvl (test code = Chloride Lvl) 108 95-109 [place] 030102-06-16 17:23:00 Test Item Value Reference Range Interpretation Comments CO2 (test code = CO2) 29 24-32 [place] 030102-06-16 17:23:00 Test Item Value Reference Range Interpretation Comments Calcium Lvl (test code = Calcium Lvl) 8.6 8.5-10.5 [place] [address]-06-16 17:23:00 Test Item Value Reference Range Interpretation Comments Total Protein (test code = Total 7.3 6.4-8.4 Protein) [place] 030102-06-16 17:23:00 Test Item Value Reference Range Interpretation Comments Albumin Lvl (test code = Albumin Lvl) 3.7 3.5-5.0 [place] [address]-06-16 17:23:00 Test Item Value Reference Range Interpretation Comments ALT (test code = ALT) 41 See_Comment [Auto mated message] The system which ge nerated this result transmit ezequiel reference range : <=65. The reference range was not used to interpr et this result as grace l/abnormal. [place] [address]-06-16 17:23:00 Test Item Value Reference Range Interpretation Comments AST (test code = AST) 18 See_Comment [Auto mated message] The system which ge nerated this result transmit ezequiel reference range : <=37. The reference range was not used to interpr et this result as grace l/abnormal. [place] 030102-06-16 17:23:00 Test Item Value Reference Range Interpretation Comments Alk Phos (test code = Alk Phos) 63 39-136 [place] 030102-06-16 17:23:00 Test Item Value Reference Range Interpretation Comments Bili Total (test code = Bili Total) 0.4 0.2-1.3 [place] [address]-06-16 17:23:00 Test Item Value Reference Range Interpretation Comments AGAP (test code = AGAP) 8.8 10.0-20.0 [place] [address]-06-16 17:23:00 Test Item Value Reference Range Interpretation Comments B/C Ratio (test code = B/C Ratio) 11 1 6-25 [place] [address]-06-16 17:23:00 Test Item Value Reference Range Interpretation Comments Globulin (test code = Globulin) 3.6 2.7-4.2 [place] 030102-06-16 17:23:00 Test Item Value Reference Range Interpretation Comments A/G Ratio (test code = A/G Ratio) 1.0 1 0.7-1.6 [place] [address]-06-16 17:23:00 Test Item Value Reference Range Interpretation Comments eGFR (test code = eGFR) 78 [place] 030102-06-16 17:23:00 Test Item Value Reference Range Interpretation Comments Lactic Acid Lvl (test code = Lactic 1.3 0.5-2.2 Acid Lvl) [place] 030102-06-16 17:23:00 Test Item Value Reference Range Interpretation Comments Procalcitonin Lvl (test no gt See_Comment [Au tomated message] code = Procalcitonin Lvl) e system which generated this result transmitted ref erence range: <=0.10. The reference range was not used to interpr et this result as normal/abnormal . [place] [address]-06-16 17:23:00 Test Item Value Reference Range Interpretation Comments WBC (test code = WBC) 9.5 3.7-10.4 [place] [address]-06-16 17:23:00 Test Item Value Reference Range Interpretation Comments RBC (test code = RBC) 4.66 4.70-6.10 [id number] 17:23:00 Test Item Value Reference Range Interpretation Comments Hgb (test code = Hgb) 14.4 14.0-18.0 [place] 739002-06-16 17:23:00 Test Item Value Reference Range Interpretation Comments Hct (test code = Hct) 42.6 42.0-54.0 [facility]lan[id number] 17:23:00 Test Item Value Reference Range Interpretation Comments MCV (test code = MCV) 91.4 80.0-94.0 [facility]landsUcxcmzcFMYMCQRVOL7199-15-02 17:23:00 Test Item Value Reference Range Interpretation Comments MCH (test code = MCH) 30.9 pg 27.0-31.0 [facility]landsGhnxxspLHDUYUJMXY8967-69-16 17:23:00 Test Item Value Reference Range Interpretation Comments MCHC (test code = MCHC) 33.8 32.0-36.0 [id number] 17:23:00 Test Item Value Reference Range Interpretation Comments RDW (test code = RDW) 13.1 11.5-14.5 [facility]landsGoovwduMBEFDEVKJU2024-90-97 17:23:00 Test Item Value Reference Range Interpretation Comments Platelet (test code = Platelet) 231 133-450 [facility]landsXzpqrxoOEOHSCYZQW4464-20-39 17:23:00 Test Item Value Reference Range Interpretation Comments MPV (test code = MPV) 9.8 7.4-10.4 [place] 739002-06-16 17:23:00 Test Item Value Reference Range Interpretation Comments Segs (test code = Segs) 71.2 45.0-75.0 [place] 739002-06-16 17:23:00 Test Item Value Reference Range Interpretation Comments Lymphocytes (test code = Lymphocytes) 15.6 20.0-40.0 [place] [address]-06-16 17:23:00 Test Item Value Reference Range Interpretation Comments Monocytes (test code = Monocytes) 9.0 2.0-12.0 [facility]landsL[id number] 17:23:00 Test Item Value Reference Range Interpretation Comments Eosinophils (test code = 3.5 See_Comment [A utomated message] The Eosinophils) system which ge nerated this result tra nsmitted reference range : <=4.0. The reference r tony was not used to int erpret this result as normal/abnormal . [facility]lan[id number] 17:23:00 Test Item Value Reference Range Interpretation Comments Basophils (test code = 0.7 See_Comment [Aut omated message] The Basophils) system which ge nerated this result tra nsmitted reference range : <=1.0. The reference r tony was not used to int erpret this result as normal/abnormal . [facility]landsRzfdowjMLFIGVSBQN5605-93-92 17:23:00 Test Item Value Reference Range Interpretation Comments Neutrophils # (test code = Neutrophils 6.8 1.5-8.1 #) [place] 739002-06-16 17:23:00 Test Item Value Reference Range Interpretation Comments Lymphocytes # (test code = Lymphocytes 1.5 1.0-5.5 #) [facility]landsWltveniWZQVTYGXDW6638-52-08 17:23:00 Test Item Value Reference Range Interpretation Comments Monocytes # (test code 0.9 See_Comment [Aut omated message] The = Monocytes #) system which generated this result tra nsmitted reference range : <=0.8. The reference r tony was not used to int erpret this result as normal/abnormal . [facility]lan[id number] 17:23:00 Test Item Value Reference Range Interpretation Comments Eosinophils # (test code 0.3 See_Comment [A utomated message] The = Eosinophils #) system wh h generated this result tra nsmitted reference range : <=0.5. The reference r tony was not used to int erpret this result as normal/abnormal . [facility]lan[id number] 17:23:00 Test Item Value Reference Range Interpretation Comments Basophils # (test code 0.1 See_Comment [Aut omated message] The = Basophils #) system which generated this result tra nsmitted reference range : <=0.2. The reference r tony was not used to int erpret this result as normal/abnormal . [facility] [id number] 17:23:00 Test Item Value Reference Range Interpretation Comments Glucose Lvl (test code = Glucose Lvl) 85 70-[address] [facility]2022-06-16 17:23:00 Test Item Value Reference Range Interpretation Comments BUN (test code = BUN) 13 12-[address] [facility]2022-06-16 17:23:00 Test Item Value Reference Range Interpretation Comments Creatinine Lvl (test code = Creatinine 1.21 0.50-1.40 Lvl) [facility]2022-06-16 17:23:00 Test Item Value Reference Range Interpretation Comments Sodium Lvl (test code = Sodium Lvl) 142 135-[address] [facility]2022-06-16 17:23:00 Test Item Value Reference Range Interpretation Comments Glucose Lvl (test code = Glucose Lvl) 85 70-[address] [facility]2022-06-16 17:23:00 Test Item Value Reference Range Interpretation Comments BUN (test code = BUN) 12-[address] [facility]2022-06-16 17:23:00 Test Item Value Reference Range Interpretation Comments Creatinine Lvl (test code = Creatinine 1.21 0.50-1.40 Lvl) [facility]2022-06-16 17:23:00 Test Item Value Reference Range Interpretation Comments Sodium Lvl (test code = Sodium Lvl) 142 135-145 [place] 030102-06-16 17:23:00 Test Item Value Reference Range Interpretation Comments Potassium Lvl (test code = Potassium 3.8 3.5-5.1 Lvl) [facility]2022-06-16 17:23:00 Test Item Value Reference Range Interpretation Comments Potassium Lvl (test code = Potassium 3.8 3.5-5.1 Lvl) [facility]2022-06-16 17:23:00 Test Item Value Reference Range Interpretation Comments Chloride Lvl (test code = Chloride Lvl) 108 95-109 [place] 030102-06-16 17:23:00 Test Item Value Reference Range Interpretation Comments CO2 (test code = CO2) 29 24-32 [place] 030102-06-16 17:23:00 Test Item Value Reference Range Interpretation Comments Calcium Lvl (test code = Calcium Lvl) 8.6 8.5-10.5 [place] 030102-06-16 17:23:00 Test Item Value Reference Range Interpretation Comments Total Protein (test code = Total 7.3 6.4-8.4 Protein) [facility] [employer] [id number] 17:23:00 Test Item Value Reference Range Interpretation Comments Albumin Lvl (test code = Albumin Lvl) 3.7 3.5-5.0 [facility] [id number] 17:23:00 Test Item Value Reference Range Interpretation Comments ALT (test code = ALT) 41 See_Comment [Auto mated message] The system which ge nerated this result transmit ezequiel reference range : <=65. The reference range was not used to interpr et this result as grace l/abnormal. [facility] [employer] [id number] 17:23:00 Test Item Value Reference Range Interpretation Comments AST (test code = AST) 18 See_Comment [Auto mated message] The system which ge nerated this result transmit ezequiel reference range : <=37. The reference range was not used to interpr et this result as grace l/abnormal. [facility] [employer] [id number] 17:23:00 Test Item Value Reference Range Interpretation Comments Alk Phos (test code = Alk Phos) 63 39-136 [facility] [employer] [id number] 17:23:00 Test Item Value Reference Range Interpretation Comments Bili Total (test code = Bili Total) 0.4 0.2-1.3 [facility] [employer] [id number] 17:23:00 Test Item Value Reference Range Interpretation Comments Chloride Lvl (test code = Chloride Lvl) 108 95-109 [facility] [employer] [id number] 17:23:00 Test Item Value Reference Range Interpretation Comments AGAP (test code = AGAP) 8.8 10.0-20.0 [facility] [employer] [id number] 17:23:00 Test Item Value Reference Range Interpretation Comments B/C Ratio (test code = B/C Ratio) 11 1 6-25 [facility] [employer] [id number] 17:23:00 Test Item Value Reference Range Interpretation Comments Globulin (test code = Globulin) 3.6 2.7-4.2 [facility] [employer] [id number] 17:23:00 Test Item Value Reference Range Interpretation Comments A/G Ratio (test code = A/G Ratio) 1.0 1 0.7-1.6 [place] 030102-06-16 17:23:00 Test Item Value Reference Range Interpretation Comments eGFR (test code = eGFR) 78 [place] 030102-06-16 17:23:00 Test Item Value Reference Range Interpretation Comments Lactic Acid Lvl (test code = Lactic 1.3 0.5-2.2 Acid Lvl) [place] 030102-06-16 17:23:00 Test Item Value Reference Range Interpretation Comments Procalcitonin Lvl (test no gt See_Comment [Au tomated message] code = Procalcitonin Lvl) e system which generated this result transmitted ref erence range: <=0.10. The reference range was not used to interpr et this result as normal/abnormal . [place] [address]-06-16 17:23:00 Test Item Value Reference Range Interpretation Comments WBC (test code = WBC) 9.5 3.7-10.4 [place] 739002-06-16 17:23:00 Test Item Value Reference Range Interpretation Comments RBC (test code = RBC) 4.66 4.70-6.10 [place] 739002-06-16 17:23:00 Test Item Value Reference Range Interpretation Comments Hgb (test code = Hgb) 14.4 14.0-18.0 [place] 030102-06-16 17:23:00 Test Item Value Reference Range Interpretation Comments CO2 (test code = CO2) 29 24-32 [place] 739002-06-16 17:23:00 Test Item Value Reference Range Interpretation Comments Hct (test code = Hct) 42.6 42.0-54.0 [place] [address]-06-16 17:23:00 Test Item Value Reference Range Interpretation Comments MCV (test code = MCV) 91.4 80.0-94.0 [place] [address]-06-16 17:23:00 Test Item Value Reference Range Interpretation Comments MCH (test code = MCH) 30.9 pg 27.0-31.0 [place] [address]-06-16 17:23:00 Test Item Value Reference Range Interpretation Comments MCHC (test code = MCHC) 33.8 32.0-36.0 [place] [address]-06-16 17:23:00 Test Item Value Reference Range Interpretation Comments RDW (test code = RDW) 13.1 11.5-14.5 [place] 739002-06-16 17:23:00 Test Item Value Reference Range Interpretation Comments Platelet (test code = Platelet) 231 133-450 [id number] 17:23:00 Test Item Value Reference Range Interpretation Comments MPV (test code = MPV) 9.8 7.4-10.4 [place] 739002-06-16 17:23:00 Test Item Value Reference Range Interpretation Comments Segs (test code = Segs) 71.2 45.0-75.0 [place] 739002-06-16 17:23:00 Test Item Value Reference Range Interpretation Comments Lymphocytes (test code = Lymphocytes) 15.6 20.0-40.0 [place] 739002-06-16 17:23:00 Test Item Value Reference Range Interpretation Comments Monocytes (test code = Monocytes) 9.0 2.0-12.[address] [facility]2022-06-16 17:23:00 Test Item Value Reference Range Interpretation Comments Calcium Lvl (test code = Calcium Lvl) 8.6 8.5-10.5 [place] 739002-06-16 17:23:00 Test Item Value Reference Range Interpretation Comments Eosinophils (test code = 3.5 See_Comment [A utomated message] The Eosinophils) system which ge nerated this result tra nsmitted reference range : <=4.0. The reference r tony was not used to int erpret this result as normal/abnormal . [place] 739002-06-16 17:23:00 Test Item Value Reference Range Interpretation Comments Basophils (test code = 0.7 See_Comment [Aut omated message] The Basophils) system which ge nerated this result tra nsmitted reference range : <=1.0. The reference r tony was not used to int erpret this result as normal/abnormal . [place] 739002-06-16 17:23:00 Test Item Value Reference Range Interpretation Comments Neutrophils # (test code = Neutrophils 6.8 1.5-8.1 #) [place] 739002-06-16 17:23:00 Test Item Value Reference Range Interpretation Comments Lymphocytes # (test code = Lymphocytes 1.5 1.0-5.5 #) [place] [address]-06-16 17:23:00 Test Item Value Reference Range Interpretation Comments Monocytes # (test code 0.9 See_Comment [Aut omated message] The = Monocytes #) system which generated this result tra nsmitted reference range : <=0.8. The reference r tony was not used to int erpret this result as normal/abnormal . [place] 739002-06-16 17:23:00 Test Item Value Reference Range Interpretation Comments Eosinophils # (test code 0.3 See_Comment [A utomated message] The = Eosinophils #) system whic h generated this result tra nsmitted reference range : <=0.5. The reference r tony was not used to int erpret this result as normal/abnormal . [place] [address]-06-16 17:23:00 Test Item Value Reference Range Interpretation Comments Basophils # (test code 0.1 See_Comment [Aut omated message] The = Basophils #) system which generated this result tra nsmitted reference range : <=0.2. The reference r tony was not used to int erpret this result as normal/abnormal . [facility] [id number] 17:23:00 Test Item Value Reference Range Interpretation Comments Total Protein (test code = Total 7.3 6.4-8.4 Protein) [facility] [id number] 17:23:00 Test Item Value Reference Range Interpretation Comments Albumin Lvl (test code = Albumin Lvl) 3.7 3.5-5.0 [facility] [id number] 17:23:00 Test Item Value Reference Range Interpretation Comments ALT (test code = ALT) 41 See_Comment [Auto mated message] The system which ge nerated this result transmit ezequiel reference range : <=65. The reference range was not used to interpr et this result as grace l/abnormal. [facility] [id number] 17:23:00 Test Item Value Reference Range Interpretation Comments AST (test code = AST) 18 See_Comment [Auto mated message] The system which ge nerated this result transmit ezequiel reference range : <=37. The reference range was not used to interpr et this result as grace l/abnormal. [facility] [id number] 17:23:00 Test Item Value Reference Range Interpretation Comments Alk Phos (test code = Alk Phos) 63 39-136 [place] 030102-06-16 17:23:00 Test Item Value Reference Range Interpretation Comments Bili Total (test code = Bili Total) 0.4 0.2-1.3 [place] 030102-06-16 17:23:00 Test Item Value Reference Range Interpretation Comments AGAP (test code = AGAP) 8.8 10.0-20.[address] [facility]2022-06-16 17:23:00 Test Item Value Reference Range Interpretation Comments B/C Ratio (test code = B/C Ratio) 11 1 6-25 [place] 030102-06-16 17:23:00 Test Item Value Reference Range Interpretation Comments Globulin (test code = Globulin) 3.6 2.7-4.2 [place] 030102-06-16 17:23:00 Test Item Value Reference Range Interpretation Comments A/G Ratio (test code = A/G Ratio) 1.0 1 0.7-1.6 [place] [address]-06-16 17:23:00 Test Item Value Reference Range Interpretation Comments eGFR (test code = eGFR) 78 [place] 030102-06-16 17:23:00 Test Item Value Reference Range Interpretation Comments Lactic Acid Lvl (test code = Lactic 1.3 0.5-2.2 Acid Lvl) [place] 030102-06-16 17:23:00 Test Item Value Reference Range Interpretation Comments Procalcitonin Lvl (test no gt See_Comment [Au tomated message] code = Procalcitonin Lvl) e system which generated this result transmitted ref erence range: <=0.10. The reference range was not used to interpr et this result as normal/abnormal . [place] 739002-06-16 17:23:00 Test Item Value Reference Range Interpretation Comments WBC (test code = WBC) 9.5 3.7-10.4 [place] [address]-06-16 17:23:00 Test Item Value Reference Range Interpretation Comments RBC (test code = RBC) 4.66 4.70-6.10 [place] [address]-06-16 17:23:00 Test Item Value Reference Range Interpretation Comments Hgb (test code = Hgb) 14.4 14.0-18.0 [id number] 17:23:00 Test Item Value Reference Range Interpretation Comments Hct (test code = Hct) 42.6 42.0-54.0 [facility]landsAguciivQZRYKHIDTI2062-31-10 17:23:00 Test Item Value Reference Range Interpretation Comments MCV (test code = MCV) 91.4 80.0-94.0 [id number] 17:23:00 Test Item Value Reference Range Interpretation Comments MCH (test code = MCH) 30.9 pg 27.0-31.0 [id number] 17:23:00 Test Item Value Reference Range Interpretation Comments MCHC (test code = MCHC) 33.8 32.0-36.0 [id number] 17:23:00 Test Item Value Reference Range Interpretation Comments RDW (test code = RDW) 13.1 11.5-14.5 [facility][id number] 17:23:00 Test Item Value Reference Range Interpretation Comments Platelet (test code = Platelet) 231 133-450 [id number] 17:23:00 Test Item Value Reference Range Interpretation Comments MPV (test code = MPV) 9.8 7.4-10.4 [id number] 17:23:00 Test Item Value Reference Range Interpretation Comments Segs (test code = Segs) 71.2 45.0-75.0 [facility]landsYjygybkVDFRKDGYSM0141-57-18 17:23:00 Test Item Value Reference Range Interpretation Comments Lymphocytes (test code = Lymphocytes) 15.6 20.0-40.0 [id number] 17:23:00 Test Item Value Reference Range Interpretation Comments Monocytes (test code = Monocytes) 9.0 2.0-12.0 [id number] 17:23:00 Test Item Value Reference Range Interpretation Comments Eosinophils (test code = 3.5 See_Comment [A utomated message] The Eosinophils) system which ge nerated this result tra nsmitted reference range : <=4.0. The reference r tony was not used to int erpret this result as normal/abnormal . [id number] 17:23:00 Test Item Value Reference Range Interpretation Comments Basophils (test code = 0.7 See_Comment [Aut omated message] The Basophils) system which ge nerated this result tra nsmitted reference range : <=1.0. The reference r tony was not used to int erpret this result as normal/abnormal . [id number] 17:23:00 Test Item Value Reference Range Interpretation Comments Neutrophils # (test code = Neutrophils 6.8 1.5-8.1 #) [id number] 17:23:00 Test Item Value Reference Range Interpretation Comments Lymphocytes # (test code = Lymphocytes 1.5 1.0-5.5 #) [id number] 17:23:00 Test Item Value Reference Range Interpretation Comments Monocytes # (test code 0.9 See_Comment [Aut omated message] The = Monocytes #) system which generated this result tra nsmitted reference range : <=0.8. The reference r tony was not used to int erpret this result as normal/abnormal . [id number] 17:23:00 Test Item Value Reference Range Interpretation Comments Eosinophils # (test code 0.3 See_Comment [A utomated message] The = Eosinophils #) system whic h generated this result tra nsmitted reference range : <=0.5. The reference r otny was not used to int erpret this result as normal/abnormal . [id number] 17:23:00 Test Item Value Reference Range Interpretation Comments Basophils # (test code 0.1 See_Comment [Aut omated message] The = Basophils #) system which generated this result tra nsmitted reference range : <=0.2. The reference r tony was not used to int erpret this result as normal/abnormal . [facility] [id number] 17:23:00 Test Item Value Reference Range Interpretation Comments Glucose Lvl (test code = Glucose Lvl) 85 70-99 [facility] [id number] 17:23:00 Test Item Value Reference Range Interpretation Comments BUN (test code = BUN) 13 7-22 [place] 030102-06-16 17:23:00 Test Item Value Reference Range Interpretation Comments Creatinine Lvl (test code = Creatinine 1.21 0.50-1.40 Lvl) [place] [address]-06-16 17:23:00 Test Item Value Reference Range Interpretation Comments Sodium Lvl (test code = Sodium Lvl) 142 135-145 [place] 030102-06-16 17:23:00 Test Item Value Reference Range Interpretation Comments Potassium Lvl (test code = Potassium 3.8 3.5-5.1 Lvl) [place] 030102-06-16 17:23:00 Test Item Value Reference Range Interpretation Comments Chloride Lvl (test code = Chloride Lvl) 108 95-109 [place] 030102-06-16 17:23:00 Test Item Value Reference Range Interpretation Comments CO2 (test code = CO2) 29 24-32 [place] [address]-06-16 17:23:00 Test Item Value Reference Range Interpretation Comments Calcium Lvl (test code = Calcium Lvl) 8.6 8.5-10.5 [place] 030102-06-16 17:23:00 Test Item Value Reference Range Interpretation Comments Total Protein (test code = Total 7.3 6.4-8.4 Protein) [place] 030102-06-16 17:23:00 Test Item Value Reference Range Interpretation Comments Albumin Lvl (test code = Albumin Lvl) 3.7 3.5-5.0 [place] 030102-06-16 17:23:00 Test Item Value Reference Range Interpretation Comments ALT (test code = ALT) 41 See_Comment [Auto mated message] The system which [employer] nerated this result transmit ezequiel reference range : <=65. The reference range was not used to interpr et this result as grace l/abnormal. [facility] [id number] 17:23:00 Test Item Value Reference Range Interpretation Comments AST (test code = AST) 18 See_Comment [Auto mated message] The system which ge nerated this result transmit ezequiel reference range : <=37. The reference range was not used to interpr et this result as grace l/abnormal. [facility] [id number] 17:23:00 Test Item Value Reference Range Interpretation Comments Alk Phos (test code = Alk Phos) 63 39-136 [place] 030102-06-16 17:23:00 Test Item Value Reference Range Interpretation Comments Bili Total (test code = Bili Total) 0.4 0.2-1.3 [place] 030102-06-16 17:23:00 Test Item Value Reference Range Interpretation Comments AGAP (test code = AGAP) 8.8 10.0-20.0 [place] 030102-06-16 17:23:00 Test Item Value Reference Range Interpretation Comments B/C Ratio (test code = B/C Ratio) 11 1 6-25 [place] 030102-06-16 17:23:00 Test Item Value Reference Range Interpretation Comments Globulin (test code = Globulin) 3.6 2.7-4.2 [place] [address]-06-16 17:23:00 Test Item Value Reference Range Interpretation Comments A/G Ratio (test code = A/G Ratio) 1.0 1 0.7-1.6 [place] [address]-06-16 17:23:00 Test Item Value Reference Range Interpretation Comments eGFR (test code = eGFR) 78 [place] 030102-06-16 17:23:00 Test Item Value Reference Range Interpretation Comments Lactic Acid Lvl (test code = Lactic 1.3 0.5-2.2 Acid Lvl) [place] 030102-06-16 17:23:00 Test Item Value Reference Range Interpretation Comments Procalcitonin Lvl (test no gt See_Comment [Au tomated message] code = Procalcitonin Lvl) e system which generated this result transmitted ref erence range: <=0.10. The reference range was not used to interpr et this result as normal/abnormal . [place] 739002-06-16 17:23:00 Test Item Value Reference Range Interpretation Comments WBC (test code = WBC) 9.5 3.7-10.4 [place] 739002-06-16 17:23:00 Test Item Value Reference Range Interpretation Comments RBC (test code = RBC) 4.66 4.70-6.10 [place] 739002-06-16 17:23:00 Test Item Value Reference Range Interpretation Comments Hgb (test code = Hgb) 14.4 14.0-18.0 [facility]lan[id number] 17:23:00 Test Item Value Reference Range Interpretation Comments Hct (test code = Hct) 42.6 42.0-54.0 [facility]lan[id number] 17:23:00 Test Item Value Reference Range Interpretation Comments MCV (test code = MCV) 91.4 80.0-94.0 [facility][id number] 17:23:00 Test Item Value Reference Range Interpretation Comments MCH (test code = MCH) 30.9 pg 27.0-31.0 [id number] 17:23:00 Test Item Value Reference Range Interpretation Comments MCHC (test code = MCHC) 33.8 32.0-36.0 [id number] 17:23:00 Test Item Value Reference Range Interpretation Comments RDW (test code = RDW) 13.1 11.5-14.5 [id number] 17:23:00 Test Item Value Reference Range Interpretation Comments Platelet (test code = Platelet) 231 133-450 [facility]landsKorplzgFQYKDDMBHV9823-83-14 17:23:00 Test Item Value Reference Range Interpretation Comments MPV (test code = MPV) 9.8 7.4-10.4 [facility]landsFyaoznkDHVGBGYZEK9430-16-10 17:23:00 Test Item Value Reference Range Interpretation Comments Segs (test code = Segs) 71.2 45.0-75.0 [place] 739002-06-16 17:23:00 Test Item Value Reference Range Interpretation Comments Lymphocytes (test code = Lymphocytes) 15.6 20.0-40.0 [place] 739002-06-16 17:23:00 Test Item Value Reference Range Interpretation Comments Monocytes (test code = Monocytes) 9.0 2.0-12.0 [place] [address]-06-16 17:23:00 Test Item Value Reference Range Interpretation Comments Eosinophils (test code = 3.5 See_Comment [A utomated message] The Eosinophils) system which ge nerated this result tra nsmitted reference range : <=4.0. The reference r tony was not used to int erpret this result as normal/abnormal . [id number] 17:23:00 Test Item Value Reference Range Interpretation Comments Basophils (test code = 0.7 See_Comment [Aut omated message] The Basophils) system which ge nerated this result tra nsmitted reference range : <=1.0. The reference r tony was not used to int erpret this result as normal/abnormal . [facility]lan[id number] 17:23:00 Test Item Value Reference Range Interpretation Comments Neutrophils # (test code = Neutrophils 6.8 1.5-8.1 #) [facility]lan[id number] 17:23:00 Test Item Value Reference Range Interpretation Comments Lymphocytes # (test code = Lymphocytes 1.5 1.0-5.5 #) [id number] 17:23:00 Test Item Value Reference Range Interpretation Comments Monocytes # (test code 0.9 See_Comment [Aut omated message] The = Monocytes #) system which generated this result tra nsmitted reference range : <=0.8. The reference r otny was not used to int erpret this result as normal/abnormal . [facility]landsSkogcgoSCLVWQLZFV9513-62-30 17:23:00 Test Item Value Reference Range Interpretation Comments Eosinophils # (test code 0.3 See_Comment [A utomated message] The = Eosinophils #) system whic h generated this result tra nsmitted reference range : <=0.5. The reference r tony was not used to int erpret this result as normal/abnormal . [id number] 17:23:00 Test Item Value Reference Range Interpretation Comments Basophils # (test code 0.1 See_Comment [Aut omated message] The = Basophils #) system which generated this result tra nsmitted reference range : <=0.2. The reference r tony was not used to int erpret this result as normal/abnormal . [facility]2022-06-14 17:22:00 Test Item Value Reference Range Interpretation Comments UA Color (test code = Yellow *NA*(11/14/21 UA Color) 12:22 PM) [facility] AND [id number] 17:22:00 Test Item Value Reference Range Interpretation Comments UA Turbidity (test code = Clear (11/14/21 12:22 UA Turbidity) PM) [facility] AND [id number] 17:22:00 Test Item Value Reference Range Interpretation Comments UA Spec Grav (test code = UA Spec 1.021 1 Grav) [facility] AND [id number] 17:22:00 Test Item Value Reference Range Interpretation Comments UA pH (test code = UA pH) 6.0 1 5.0-8.0 [facility] AND [id number] 17:22:00 Test Item Value Reference Range Interpretation Comments UA Protein (test code = UA Negative mg/dL Protein) [facility] AND [id number] 17:22:00 Test Item Value Reference Range Interpretation Comments UA Glucose (test code = UA Negative mg/dL Glucose) [facility] AND [id number] 17:22:00 Test Item Value Reference Range Interpretation Comments UA Ketones (test code = UA Negative mg/dL Ketones) [facility] AND [id number] 17:22:00 Test Item Value Reference Range Interpretation Comments UA Bili (test code = Negative *NA*(11/14/21 UA Bili) 12:22 PM) [facility] AND [id number] 17:22:00 Test Item Value Reference Range Interpretation Comments UA Blood (test code = Negative (11/14/21 12:22 UA Blood) PM) [facility] AND [id number] 17:22:00 Test Item Value Reference Range Interpretation Comments UA Nitrite (test code Negative (11/14/21 12:22 = UA Nitrite) PM) [facility] AND [id number] 17:22:00 Test Item Value Reference Range Interpretation Comments UA Leuk Est (test Negative (11/14/21 12:22 code = UA Leuk Est) PM) [facility] AND [id number] 17:22:00 Test Item Value Reference Range Interpretation Comments UA WBC (test code = 1 See_Comment [Automa ezequiel message] The UA WBC) system which ge nerated this result transmit ezequiel reference range : <=5. The reference range was not used to interpr et this result as grace l/abnormal. [facility] AND [id number] 17:22:00 Test Item Value Reference Range Interpretation Comments UA RBC (test code = 1 See_Comment [Automa ezequiel message] The UA RBC) system which ge nerated this result transmit ezequiel reference range : <=2. The reference range was not used to interpr et this result as grace l/abnormal. [facility] AND [id number] 17:22:00 Test Item Value Reference Range Interpretation Comments UA Mucus (test code = UA Mucus) Few /LPF [facility] AND [id number] 17:22:00 Test Item Value Reference Range Interpretation Comments UA Sq Epi (test code = UA Sq Epi) None Seen [facility] AND [id number] 17:22:00 Test Item Value Reference Range Interpretation Comments UA Urobilinogen (test code = UA <=1.0 mg/dL 0.1-1.0 Urobilinogen) [facility] AND [id number] 17:22:00 Test Item Value Reference Range Interpretation Comments UA Color (test code = Yellow *NA*(11/14/21 UA Color) 12:22 PM) [facility] AND [id number] 17:22:00 Test Item Value Reference Range Interpretation Comments UA Turbidity (test code = Clear (11/14/21 12:22 UA Turbidity) PM) [facility] AND [id number] 17:22:00 Test Item Value Reference Range Interpretation Comments UA Spec Grav (test code = UA Spec 1.021 1 Grav) [facility] AND [id number] 17:22:00 Test Item Value Reference Range Interpretation Comments UA pH (test code = UA pH) 6.0 1 5.0-8.0 [facility] AND [id number] 17:22:00 Test Item Value Reference Range Interpretation Comments UA Protein (test code = UA Negative mg/dL Protein) [facility] AND [id number] 17:22:00 Test Item Value Reference Range Interpretation Comments UA Glucose (test code = UA Negative mg/dL Glucose) [facility] AND [id number] 17:22:00 Test Item Value Reference Range Interpretation Comments UA Ketones (test code = UA Negative mg/dL Ketones) [facility] AND [id number] 17:22:00 Test Item Value Reference Range Interpretation Comments UA Bili (test code = Negative *NA*(11/14/21 UA Bili) 12:22 PM) [facility] [id number] 17:22:00 Test Item Value Reference Range Interpretation Comments UA Blood (test code = Negative (11/14/21 12:22 UA Blood) PM) [facility] [id number] 17:22:00 Test Item Value Reference Range Interpretation Comments UA Nitrite (test code Negative (11/14/21 12:22 = UA Nitrite) PM) [facility] [id number] 17:22:00 Test Item Value Reference Range Interpretation Comments UA Leuk Est (test Negative (11/14/21 12:22 code = UA Leuk Est) PM) [facility] [id number] 17:22:00 Test Item Value Reference Range Interpretation Comments UA WBC (test code = 1 See_Comment [Automa ezequiel message] The UA WBC) system which ge nerated this result transmit ezequiel reference range : <=5. The reference range was not used to interpr et this result as grace l/abnormal. [facility] [id number] 17:22:00 Test Item Value Reference Range Interpretation Comments UA RBC (test code = 1 See_Comment [Automa ezequiel message] The UA RBC) system which ge nerated this result transmit ezequiel reference range : <=2. The reference range was not used to interpr et this result as grace l/abnormal. [facility] [id number] 17:22:00 Test Item Value Reference Range Interpretation Comments UA Mucus (test code = UA Mucus) Few /LPF [facility] [id number] 17:22:00 Test Item Value Reference Range Interpretation Comments UA Sq Epi (test code = UA Sq Epi) None [facility]en [facility] [id number] 17:22:00 Test Item Value Reference Range Interpretation Comments UA Urobilinogen (test code = UA <=1.0 mg/dL 0.1-1.0 Urobilinogen) [facility] [id number] 17:22:00 Test Item Value Reference Range Interpretation Comments UA Color (test code = Yellow *NA*(11/14/21 UA Color) 12:22 PM) [facility] [id number] 17:22:00 Test Item Value Reference Range Interpretation Comments UA Turbidity (test code = Clear (11/14/21 12:22 UA Turbidity) PM) [facility] AND [id number] 17:22:00 Test Item Value Reference Range Interpretation Comments UA Spec Grav (test code = UA Spec 1.021 1 Grav) [facility] AND [id number] 17:22:00 Test Item Value Reference Range Interpretation Comments UA pH (test code = UA pH) 6.0 1 5.0-8.0 [facility] AND [id number] 17:22:00 Test Item Value Reference Range Interpretation Comments UA Protein (test code = UA Negative mg/dL Protein) [facility] AND [id number] 17:22:00 Test Item Value Reference Range Interpretation Comments UA Glucose (test code = UA Negative mg/dL Glucose) [facility] AND [id number] 17:22:00 Test Item Value Reference Range Interpretation Comments UA Ketones (test code = UA Negative mg/dL Ketones) [facility] AND [id number] 17:22:00 Test Item Value Reference Range Interpretation Comments UA Bili (test code = Negative *NA*(11/14/21 UA Bili) 12:22 PM) [facility] AND [id number] 17:22:00 Test Item Value Reference Range Interpretation Comments UA Blood (test code = Negative (11/14/21 12:22 UA Blood) PM) [facility] AND [id number] 17:22:00 Test Item Value Reference Range Interpretation Comments UA Nitrite (test code Negative (11/14/21 12:22 = UA Nitrite) PM) [facility] AND [id number] 17:22:00 Test Item Value Reference Range Interpretation Comments UA Leuk Est (test Negative (11/14/21 12:22 code = UA Leuk Est) PM) [facility] AND [id number] 17:22:00 Test Item Value Reference Range Interpretation Comments UA WBC (test code = 1 See_Comment [Automa ezequiel message] The UA WBC) system which ge nerated this result transmit ezequiel reference range : <=5. The reference range was not used to interpr et this result as grace l/abnormal. [facility] AND [id number] 17:22:00 Test Item Value Reference Range Interpretation Comments UA RBC (test code = 1 See_Comment [Automa ezequiel message] The UA RBC) system which ge nerated this result transmit ezequiel reference range : <=2. The reference range was not used to interpr et this result as grace l/abnormal. [facility] AND [id number] 17:22:00 Test Item Value Reference Range Interpretation Comments UA Mucus (test code = UA Mucus) Few /LPF [facility] AND [id number] 17:22:00 Test Item Value Reference Range Interpretation Comments UA Sq Epi (test code = UA Sq Epi) None Seen [facility] AND [id number] 17:22:00 Test Item Value Reference Range Interpretation Comments UA Urobilinogen (test code = UA <=1.0 mg/dL 0.1-1.0 Urobilinogen) [facility] AND [id number] 17:22:00 Test Item Value Reference Range Interpretation Comments UA Color (test code = Yellow *NA*(11/14/21 UA Color) 12:22 PM) [facility] AND [id number] 17:22:00 Test Item Value Reference Range Interpretation Comments UA Turbidity (test code = Clear (11/14/21 12:22 UA Turbidity) PM) [facility] AND [id number] 17:22:00 Test Item Value Reference Range Interpretation Comments UA Spec Grav (test code = UA Spec 1.021 1 Grav) [facility] AND [id number] 17:22:00 Test Item Value Reference Range Interpretation Comments UA pH (test code = UA pH) 6.0 1 5.0-8.0 [facility] AND [id number] 17:22:00 Test Item Value Reference Range Interpretation Comments UA Protein (test code = UA Negative mg/dL Protein) [facility] AND [id number] 17:22:00 Test Item Value Reference Range Interpretation Comments UA Glucose (test code = UA Negative mg/dL Glucose) [facility] AND [id number] 17:22:00 Test Item Value Reference Range Interpretation Comments UA Ketones (test code = UA Negative mg/dL Ketones) [facility] AND [id number] 17:22:00 Test Item Value Reference Range Interpretation Comments UA Bili (test code = Negative *NA*(11/14/21 UA Bili) 12:22 PM) [facility] [id number] 17:22:00 Test Item Value Reference Range Interpretation Comments UA Blood (test code = Negative (11/14/21 12:22 UA Blood) PM) [facility] [id number] 17:22:00 Test Item Value Reference Range Interpretation Comments UA Nitrite (test code Negative (11/14/21 12:22 = UA Nitrite) PM) [facility] [id number] 17:22:00 Test Item Value Reference Range Interpretation Comments UA Leuk Est (test Negative (11/14/21 12:22 code = UA Leuk Est) PM) [facility] [id number] 17:22:00 Test Item Value Reference Range Interpretation Comments UA WBC (test code = 1 See_Comment [Automa ezequiel message] The UA WBC) system which ge nerated this result transmit ezequiel reference range : <=5. The reference range was not used to interpr et this result as grace l/abnormal. [facility] [id number] 17:22:00 Test Item Value Reference Range Interpretation Comments UA RBC (test code = 1 See_Comment [Automa ezequiel message] The UA RBC) system which ge nerated this result transmit ezequiel reference range : <=2. The reference range was not used to interpr et this result as grace l/abnormal. [facility] AND [id number] 17:22:00 Test Item Value Reference Range Interpretation Comments UA Mucus (test code = UA Mucus) Few /LPF [facility] [id number] 17:22:00 Test Item Value Reference Range Interpretation Comments UA Sq Epi (test code = UA Sq Epi) None Seen [facility] [id number] 17:22:00 Test Item Value Reference Range Interpretation Comments UA Urobilinogen (test code = UA <=1.0 mg/dL 0.1-1.0 Urobilinogen) [facility] [id number] 17:19:00 Test Item Value Reference Range Interpretation Comments Glucose Lvl (test code = Glucose Lvl) 119 70-99 [facility] [id number] 17:19:00 Test Item Value Reference Range Interpretation Comments BUN (test code = BUN) 15 7-22 [place] [address]-06-14 17:19:00 Test Item Value Reference Range Interpretation Comments Creatinine Lvl (test code = Creatinine 1.31 0.50-1.40 Lvl) [place] [address]-06-14 17:19:00 Test Item Value Reference Range Interpretation Comments Sodium Lvl (test code = Sodium Lvl) 138 135-145 [place] 030102-06-14 17:19:00 Test Item Value Reference Range Interpretation Comments Potassium Lvl (test code = Potassium 3.6 3.5-5.1 Lvl) [address]06-14 17:19:00 Test Item Value Reference Range Interpretation Comments Chloride Lvl (test code = Chloride Lvl) 105 95-109 [place] 43868-06-14 17:19:00 Test Item Value Reference Range Interpretation Comments CO2 (test code = CO2) 27 24-32 [place] [address]-06-14 17:19:00 Test Item Value Reference Range Interpretation Comments Calcium Lvl (test code = Calcium Lvl) 8.9 8.5-10.5 [place] [address]-06-14 17:19:00 Test Item Value Reference Range Interpretation Comments Total Protein (test code = Total 7.7 6.4-8.4 Protein) [place] [address]-06-14 17:19:00 Test Item Value Reference Range Interpretation Comments Albumin Lvl (test code = Albumin Lvl) 3.9 3.5-5.0 [place] [address]-06-14 17:19:00 Test Item Value Reference Range Interpretation Comments ALT (test code = ALT) 40 See_Comment [Auto mated message] The system which ge nerated this result transmit ezequiel reference range : <=65. The reference range was not used to interpr et this result as grace l/abnormal. [place] [address]-06-14 17:19:00 Test Item Value Reference Range Interpretation Comments AST (test code = AST) 19 See_Comment [Auto mated message] The system which ge nerated this result transmit ezequiel reference range : <=37. The reference range was not used to interpr et this result as grace l/abnormal. [facility]2022-06-14 17:19:00 Test Item Value Reference Range Interpretation Comments Alk Phos (test code = Alk Phos) 68 39-136 [place] 030102-06-14 17:19:00 Test Item Value Reference Range Interpretation Comments Bili Total (test code = Bili Total) 0.6 0.2-1.3 [place] 030102-06-14 17:19:00 Test Item Value Reference Range Interpretation Comments AGAP (test code = AGAP) 9.6 10.0-20.0 [place] 030102-06-14 17:19:00 Test Item Value Reference Range Interpretation Comments B/C Ratio (test code = B/C Ratio) 11 1 6-25 [place] [address]-06-14 17:19:00 Test Item Value Reference Range Interpretation Comments Globulin (test code = Globulin) 3.8 2.7-4.2 [place] 030102-06-14 17:19:00 Test Item Value Reference Range Interpretation Comments A/G Ratio (test code = A/G Ratio) 1.0 1 0.7-1.6 [place] 030102-06-14 17:19:00 Test Item Value Reference Range Interpretation Comments eGFR (test code = eGFR) [address] [facility]2022-06-14 17:19:00 Test Item Value Reference Range Interpretation Comments Lipase Lvl (test code = Lipase Lvl) 78 73-393 [facility]yourqgKSRKUSTLTK8195-79-56 17:19:00 Test Item Value Reference Range Interpretation Comments WBC (test code = WBC) 11.3 3.7-10.4 [place] [address]-06-14 17:19:00 Test Item Value Reference Range Interpretation Comments RBC (test code = RBC) 4.97 4.70-6.10 [place] 739002-06-14 17:19:00 Test Item Value Reference Range Interpretation Comments Hgb (test code = Hgb) 15.6 14.0-18.0 [place] [address]-06-14 17:19:00 Test Item Value Reference Range Interpretation Comments Hct (test code = Hct) 45.2 42.0-54.0 [place] 739002-06-14 17:19:00 Test Item Value Reference Range Interpretation Comments MCV (test code = MCV) 90.9 80.0-94.0 [place] [address]-06-14 17:19:00 Test Item Value Reference Range Interpretation Comments MCH (test code = MCH) 31.3 pg 27.0-31.0 [place] [address]-06-14 17:19:00 Test Item Value Reference Range Interpretation Comments MCHC (test code = MCHC) 34.4 32.0-36.0 [place] 739002-06-14 17:19:00 Test Item Value Reference Range Interpretation Comments RDW (test code = RDW) 12.7 11.5-14.5 [place] [address]-06-14 17:19:00 Test Item Value Reference Range Interpretation Comments Platelet (test code = Platelet) 209 133-450 [place] 739002-06-14 17:19:00 Test Item Value Reference Range Interpretation Comments MPV (test code = MPV) 10.2 7.4-10.4 [place] 739002-06-14 17:19:00 Test Item Value Reference Range Interpretation Comments Segs (test code = Segs) 59.2 45.0-75.0 [place] [address]-06-14 17:19:00 Test Item Value Reference Range Interpretation Comments Lymphocytes (test code = Lymphocytes) 21.5 20.0-40.0 [place] 739002-06-14 17:19:00 Test Item Value Reference Range Interpretation Comments Monocytes (test code = Monocytes) 11.7 2.0-12.0 [place] [address]-06-14 17:19:00 Test Item Value Reference Range Interpretation Comments Eosinophils (test code = 6.5 See_Comment [A utomated message] The Eosinophils) system which ge nerated this result tra nsmitted reference range : <=4.0. The reference r tony was not used to int erpret this result as normal/abnormal . [place] [address]-06-14 17:19:00 Test Item Value Reference Range Interpretation Comments Basophils (test code = 1.1 See_Comment [Aut omated message] The Basophils) system which ge nerated this result tra nsmitted reference range : <=1.0. The reference r tony was not used to int erpret this result as normal/abnormal . [place] [address]-06-14 17:19:00 Test Item Value Reference Range Interpretation Comments Neutrophils # (test code = Neutrophils 6.7 1.5-8.1 #) [place] 739002-06-14 17:19:00 Test Item Value Reference Range Interpretation Comments Lymphocytes # (test code = Lymphocytes 2.4 1.0-5.5 #) [place] [address]-06-14 17:19:00 Test Item Value Reference Range Interpretation Comments Monocytes # (test code 1.3 See_Comment [Aut omated message] The = Monocytes #) system which generated this result tra nsmitted reference range : <=0.8. The reference r tony was not used to int erpret this result as normal/abnormal . [place] [address]-06-14 17:19:00 Test Item Value Reference Range Interpretation Comments Eosinophils # (test code 0.7 See_Comment [A utomated message] The = Eosinophils #) system whic h generated this result tra nsmitted reference range : <=0.5. The reference r tony was not used to int erpret this result as normal/abnormal . [place] 739002-06-14 17:19:00 Test Item Value Reference Range Interpretation Comments Basophils # (test code 0.1 See_Comment [Aut omated message] The = Basophils #) system which generated this result tra nsmitted reference range : <=0.2. The reference r tony was not used to int erpret this result as normal/abnormal . [place] 958732-06-14 17:19:00 Test Item Value Reference Range Interpretation Comments Grp A Strep Scr (test Negative (11/14/21 12:19 code = Grp A Strep PM) Scr) [place] 030102-06-14 17:19:00 Test Item Value Reference Range Interpretation Comments Glucose Lvl (test code = Glucose Lvl) 119 70-99 [place] 030102-06-14 17:19:00 Test Item Value Reference Range Interpretation Comments BUN (test code = BUN) 15 7-22 [place] 030102-06-14 17:19:00 Test Item Value Reference Range Interpretation Comments Creatinine Lvl (test code = Creatinine 1.31 0.50-1.40 Lvl) [place] 030102-06-14 17:19:00 Test Item Value Reference Range Interpretation Comments Sodium Lvl (test code = Sodium Lvl) 138 135-145 [place] 030102-06-14 17:19:00 Test Item Value Reference Range Interpretation Comments Potassium Lvl (test code = Potassium 3.6 3.5-5.1 Lvl) [place] 030102-06-14 17:19:00 Test Item Value Reference Range Interpretation Comments Chloride Lvl (test code = Chloride Lvl) 105 95-109 [place] 030102-06-14 17:19:00 Test Item Value Reference Range Interpretation Comments CO2 (test code = CO2) 27 24-32 [place] 030102-06-14 17:19:00 Test Item Value Reference Range Interpretation Comments Calcium Lvl (test code = Calcium Lvl) 8.9 8.5-10.5 [place] 030102-06-14 17:19:00 Test Item Value Reference Range Interpretation Comments Total Protein (test code = Total 7.7 6.4-8.4 Protein) [place] 030102-06-14 17:19:00 Test Item Value Reference Range Interpretation Comments Albumin Lvl (test code = Albumin Lvl) 3.9 3.5-5.0 [place] 030102-06-14 17:19:00 Test Item Value Reference Range Interpretation Comments ALT (test code = ALT) 40 See_Comment [Auto mated message] The system which ge nerated this result transmit ezequiel reference range : <=65. The reference range was not used to interpr et this result as grace l/abnormal. [place] 030102-06-14 17:19:00 Test Item Value Reference Range Interpretation Comments AST (test code = AST) 19 See_Comment [Auto mated message] The system which ge nerated this result transmit ezequiel reference range : <=37. The reference range was not used to interpr et this result as grace l/abnormal. [place] [address]-06-14 17:19:00 Test Item Value Reference Range Interpretation Comments Alk Phos (test code = Alk Phos) 68 39-136 [place] 030102-06-14 17:19:00 Test Item Value Reference Range Interpretation Comments Bili Total (test code = Bili Total) 0.6 0.2-1.3 [place] 030102-06-14 17:19:00 Test Item Value Reference Range Interpretation Comments AGAP (test code = AGAP) 9.6 10.0-20.0 [place] 030102-06-14 17:19:00 Test Item Value Reference Range Interpretation Comments B/C Ratio (test code = B/C Ratio) 11 1 6-25 [place] 030102-06-14 17:19:00 Test Item Value Reference Range Interpretation Comments Globulin (test code = Globulin) 3.8 2.7-4.2 [place] 030102-06-14 17:19:00 Test Item Value Reference Range Interpretation Comments A/G Ratio (test code = A/G Ratio) 1.0 1 0.7-1.6 [place] 030102-06-14 17:19:00 Test Item Value Reference Range Interpretation Comments eGFR (test code = eGFR) [address] [facility]2022-06-14 17:19:00 Test Item Value Reference Range Interpretation Comments Lipase Lvl (test code = Lipase Lvl) 78 73-393 [facility]landsVmskhaaEHIKKGPBZI0138-79-60 17:19:00 Test Item Value Reference Range Interpretation Comments WBC (test code = WBC) 11.3 3.7-10.4 [place] 739002-06-14 17:19:00 Test Item Value Reference Range Interpretation Comments RBC (test code = RBC) 4.97 4.70-6.10 [place] 739002-06-14 17:19:00 Test Item Value Reference Range Interpretation Comments Hgb (test code = Hgb) 15.6 14.0-18.0 [place] [address]-06-14 17:19:00 Test Item Value Reference Range Interpretation Comments Hct (test code = Hct) 45.2 42.0-54.0 [place] [address]-06-14 17:19:00 Test Item Value Reference Range Interpretation Comments MCV (test code = MCV) 90.9 80.0-94.0 [place] [address]-06-14 17:19:00 Test Item Value Reference Range Interpretation Comments MCH (test code = MCH) 31.3 pg 27.0-31.0 [facility]landsSbetbrtYMAIXGJSCF6972-78-60 17:19:00 Test Item Value Reference Range Interpretation Comments MCHC (test code = MCHC) 34.4 32.0-36.0 [facility]lan[id number] 17:19:00 Test Item Value Reference Range Interpretation Comments RDW (test code = RDW) 12.7 11.5-14.5 [facility]landsBilgolxETPJCCHRCR1283-38-02 17:19:00 Test Item Value Reference Range Interpretation Comments Platelet (test code = Platelet) 209 133-450 [facility]landsLkohfutFUZNMMSGLX8965-14-92 17:19:00 Test Item Value Reference Range Interpretation Comments MPV (test code = MPV) 10.2 7.4-10.4 [facility]landsCjhtaukQENFTXYKUA2929-76-62 17:19:00 Test Item Value Reference Range Interpretation Comments Segs (test code = Segs) 59.2 45.0-75.0 [facility]landsNstrycvUEKGJRSNGX4284-47-81 17:19:00 Test Item Value Reference Range Interpretation Comments Lymphocytes (test code = Lymphocytes) 21.5 20.0-40.0 [facility]landsOvkkeueZIJGJIIEDI6420-69-16 17:19:00 Test Item Value Reference Range Interpretation Comments Monocytes (test code = Monocytes) 11.7 2.0-12.0 [facility]landsBtioggrLOCMJPZZIQ4402-37-41 17:19:00 Test Item Value Reference Range Interpretation Comments Eosinophils (test code = 6.5 See_Comment [A utomated message] The Eosinophils) system which ge nerated this result tra nsmitted reference range : <=4.0. The reference r tony was not used to int erpret this result as normal/abnormal . [facility]landsRaklsieSBCJZZFCER8435-67-76 17:19:00 Test Item Value Reference Range Interpretation Comments Basophils (test code = 1.1 See_Comment [Aut omated message] The Basophils) system which ge nerated this result tra nsmitted reference range : <=1.0. The reference r tony was not used to int erpret this result as normal/abnormal . [facility]landsAterqssKTAAFXCEAZ2773-72-66 17:19:00 Test Item Value Reference Range Interpretation Comments Neutrophils # (test code = Neutrophils 6.7 1.5-8.1 #) [place] 739002-06-14 17:19:00 Test Item Value Reference Range Interpretation Comments Lymphocytes # (test code = Lymphocytes 2.4 1.0-5.5 #) [place] 739002-06-14 17:19:00 Test Item Value Reference Range Interpretation Comments Monocytes # (test code 1.3 See_Comment [Aut omated message] The = Monocytes #) system which generated this result tra nsmitted reference range : <=0.8. The reference r tony was not used to int erpret this result as normal/abnormal . [place] 739002-06-14 17:19:00 Test Item Value Reference Range Interpretation Comments Eosinophils # (test code 0.7 See_Comment [A utomated message] The = Eosinophils #) system whic h generated this result tra nsmitted reference range : <=0.5. The reference r tony was not used to int erpret this result as normal/abnormal . [facility]landsFmlpyyjHZKCJLCJPY3607-07-33 17:19:00 Test Item Value Reference Range Interpretation Comments Basophils # (test code 0.1 See_Comment [Aut omated message] The = Basophils #) system which generated this result tra nsmitted reference range : <=0.2. The reference r tony was not used to int erpret this result as normal/abnormal . [place] 47850022-06-14 17:19:00 Test Item Value Reference Range Interpretation Comments Grp A Strep Scr (test Negative (11/14/21 12:19 code = Grp A Strep PM) Scr) [facility]2022-06-14 17:19:00 Test Item Value Reference Range Interpretation Comments Glucose Lvl (test code = Glucose Lvl) 119 70-99 [place] 030102-06-14 17:19:00 Test Item Value Reference Range Interpretation Comments BUN (test code = BUN) 15 7-22 [place] 030102-06-14 17:19:00 Test Item Value Reference Range Interpretation Comments Creatinine Lvl (test code = Creatinine 1.31 0.50-1.40 Lvl) [facility]2022-06-14 17:19:00 Test Item Value Reference Range Interpretation Comments Sodium Lvl (test code = Sodium Lvl) 138 135-145 [place] 030102-06-14 17:19:00 Test Item Value Reference Range Interpretation Comments Potassium Lvl (test code = Potassium 3.6 3.5-5.1 Lvl) [address]06-14 17:19:00 Test Item Value Reference Range Interpretation Comments Chloride Lvl (test code = Chloride Lvl) 105 95-109 [place] [address]-06-14 17:19:00 Test Item Value Reference Range Interpretation Comments CO2 (test code = CO2) 27 24-32 [place] [address]-06-14 17:19:00 Test Item Value Reference Range Interpretation Comments Calcium Lvl (test code = Calcium Lvl) 8.9 8.5-10.5 [facility] [id number] 17:19:00 Test Item Value Reference Range Interpretation Comments Total Protein (test code = Total 7.7 6.4-8.4 Protein) [place] [address]-06-14 17:19:00 Test Item Value Reference Range Interpretation Comments Albumin Lvl (test code = Albumin Lvl) 3.9 3.5-5.0 [facility] [id number] 17:19:00 Test Item Value Reference Range Interpretation Comments ALT (test code = ALT) 40 See_Comment [Auto mated message] The system which ge nerated this result transmit ezequiel reference range : <=65. The reference range was not used to interpr et this result as grace l/abnormal. [facility] [id number] 17:19:00 Test Item Value Reference Range Interpretation Comments AST (test code = AST) 19 See_Comment [Auto mated message] The system which ge nerated this result transmit ezequiel reference range : <=37. The reference range was not used to interpr et this result as grace l/abnormal. [facility] [id number] 17:19:00 Test Item Value Reference Range Interpretation Comments Alk Phos (test code = Alk Phos) 68 39-136 [facility] [id number] 17:19:00 Test Item Value Reference Range Interpretation Comments Bili Total (test code = Bili Total) 0.6 0.2-1.3 [facility] [id number] 17:19:00 Test Item Value Reference Range Interpretation Comments AGAP (test code = AGAP) 9.6 10.0-20.[address] [facility]2022-06-14 17:19:00 Test Item Value Reference Range Interpretation Comments B/C Ratio (test code = B/C Ratio) 11 1 6-25 [place] 030102-06-14 17:19:00 Test Item Value Reference Range Interpretation Comments Globulin (test code = Globulin) 3.8 2.7-4.2 [place] 030102-06-14 17:19:00 Test Item Value Reference Range Interpretation Comments A/G Ratio (test code = A/G Ratio) 1.0 1 0.7-1.6 [place] 030102-06-14 17:19:00 Test Item Value Reference Range Interpretation Comments eGFR (test code = eGFR) 71 [place] 030102-06-14 17:19:00 Test Item Value Reference Range Interpretation Comments Lipase Lvl (test code = Lipase Lvl) 78 73-393 [facility]landsArzspbbXQNMAPZCRL1021-59-21 17:19:00 Test Item Value Reference Range Interpretation Comments WBC (test code = WBC) 11.3 3.7-10.4 [place] 739002-06-14 17:19:00 Test Item Value Reference Range Interpretation Comments RBC (test code = RBC) 4.97 4.70-6.10 [facility]landsS[id number] 17:19:00 Test Item Value Reference Range Interpretation Comments Hgb (test code = Hgb) 15.6 14.0-18.0 [id number] 17:19:00 Test Item Value Reference Range Interpretation Comments Hct (test code = Hct) 45.2 42.0-54.0 [place] 739002-06-14 17:19:00 Test Item Value Reference Range Interpretation Comments MCV (test code = MCV) 90.9 80.0-94.0 [place] 739002-06-14 17:19:00 Test Item Value Reference Range Interpretation Comments MCH (test code = MCH) 31.3 pg 27.0-31.0 [place] 739002-06-14 17:19:00 Test Item Value Reference Range Interpretation Comments MCHC (test code = MCHC) 34.4 32.0-36.0 [place] 739002-06-14 17:19:00 Test Item Value Reference Range Interpretation Comments RDW (test code = RDW) 12.7 11.5-14.5 [facility][id number] 17:19:00 Test Item Value Reference Range Interpretation Comments Platelet (test code = Platelet) 209 133-450 [place] 739002-06-14 17:19:00 Test Item Value Reference Range Interpretation Comments MPV (test code = MPV) 10.2 7.4-10.4 [id number] 17:19:00 Test Item Value Reference Range Interpretation Comments Segs (test code = Segs) 59.2 45.0-75.0 [place] 739002-06-14 17:19:00 Test Item Value Reference Range Interpretation Comments Lymphocytes (test code = Lymphocytes) 21.5 20.0-40.0 [place] 739002-06-14 17:19:00 Test Item Value Reference Range Interpretation Comments Monocytes (test code = Monocytes) 11.7 2.0-12.0 [id number] 17:19:00 Test Item Value Reference Range Interpretation Comments Eosinophils (test code = 6.5 See_Comment [A utomated message] The Eosinophils) system which ge nerated this result tra nsmitted reference range : <=4.0. The reference r tony was not used to int erpret this result as normal/abnormal . [facility][id number] 17:19:00 Test Item Value Reference Range Interpretation Comments Basophils (test code = 1.1 See_Comment [Aut omated message] The Basophils) system which ge nerated this result tra nsmitted reference range : <=1.0. The reference r tony was not used to int erpret this result as normal/abnormal . [facility]landsReoptqyXDQBEXMKWK3852-06-66 17:19:00 Test Item Value Reference Range Interpretation Comments Neutrophils # (test code = Neutrophils 6.7 1.5-8.1 #) [id number] 17:19:00 Test Item Value Reference Range Interpretation Comments Lymphocytes # (test code = Lymphocytes 2.4 1.0-5.5 #) [facility][id number] 17:19:00 Test Item Value Reference Range Interpretation Comments Monocytes # (test code 1.3 See_Comment [Aut omated message] The = Monocytes #) system which generated this result tra nsmitted reference range : <=0.8. The reference r tony was not used to int erpret this result as normal/abnormal . [facility][id number] 17:19:00 Test Item Value Reference Range Interpretation Comments Eosinophils # (test code 0.7 See_Comment [A utomated message] The = Eosinophils #) system whic h generated this result tra nsmitted reference range : <=0.5. The reference r tony was not used to int erpret this result as normal/abnormal . [facility][id number] 17:19:00 Test Item Value Reference Range Interpretation Comments Basophils # (test code 0.1 See_Comment [Aut omated message] The = Basophils #) system which generated this result tra nsmitted reference range : <=0.2. The reference r tony was not used to int erpret this result as normal/abnormal . [place] 47850022-06-14 17:19:00 Test Item Value Reference Range Interpretation Comments Grp A Strep Scr (test Negative (11/14/21 12:19 code = Grp A Strep PM) Scr) [facility]2022-06-14 17:19:00 Test Item Value Reference Range Interpretation Comments Glucose Lvl (test code = Glucose Lvl) 119 70-[address] [facility]2022-06-14 17:19:00 Test Item Value Reference Range Interpretation Comments BUN (test code = BUN) 15 7-22 [place] 030102-06-14 17:19:00 Test Item Value Reference Range Interpretation Comments Creatinine Lvl (test code = Creatinine 1.31 0.50-1.40 Lvl) [place] 030102-06-14 17:19:00 Test Item Value Reference Range Interpretation Comments Sodium Lvl (test code = Sodium Lvl) 138 135-[address] [facility]2022-06-14 17:19:00 Test Item Value Reference Range Interpretation Comments Potassium Lvl (test code = Potassium 3.6 3.5-5.1 Lvl) [place] 030102-06-14 17:19:00 Test Item Value Reference Range Interpretation Comments Chloride Lvl (test code = Chloride Lvl) 105 95-[address] [facility]2022-06-14 17:19:00 Test Item Value Reference Range Interpretation Comments CO2 (test code = CO2) 27 24-32 [place] 030102-06-14 17:19:00 Test Item Value Reference Range Interpretation Comments Calcium Lvl (test code = Calcium Lvl) 8.9 8.5-10.5 [place] 030102-06-14 17:19:00 Test Item Value Reference Range Interpretation Comments Total Protein (test code = Total 7.7 6.4-8.4 Protein) [place] 030102-06-14 17:19:00 Test Item Value Reference Range Interpretation Comments Albumin Lvl (test code = Albumin Lvl) 3.9 3.5-5.0 [place] 030102-06-14 17:19:00 Test Item Value Reference Range Interpretation Comments ALT (test code = ALT) 40 See_Comment [Auto mated message] The system which ge nerated this result transmit ezequiel reference range : <=65. The reference range was not used to interpr et this result as grace l/abnormal. [facility]2022-06-14 17:19:00 Test Item Value Reference Range Interpretation Comments AST (test code = AST) 19 See_Comment [Auto mated message] The system which ge nerated this result transmit ezequiel reference range : <=37. The reference range was not used to interpr et this result as grace l/abnormal. [place] 030102-06-14 17:19:00 Test Item Value Reference Range Interpretation Comments Alk Phos (test code = Alk Phos) 68 39-136 [place] 030102-06-14 17:19:00 Test Item Value Reference Range Interpretation Comments Bili Total (test code = Bili Total) 0.6 0.2-1.3 [place] 030102-06-14 17:19:00 Test Item Value Reference Range Interpretation Comments AGAP (test code = AGAP) 9.6 10.0-20.0 [place] 030102-06-14 17:19:00 Test Item Value Reference Range Interpretation Comments B/C Ratio (test code = B/C Ratio) 11 1 6-25 [place] [address]-06-14 17:19:00 Test Item Value Reference Range Interpretation Comments Globulin (test code = Globulin) 3.8 2.7-4.[address] [facility]2022-06-14 17:19:00 Test Item Value Reference Range Interpretation Comments A/G Ratio (test code = A/G Ratio) 1.0 1 0.7-1.[address] [facility]2022-06-14 17:19:00 Test Item Value Reference Range Interpretation Comments eGFR (test code = eGFR) [address] [facility]2022-06-14 17:19:00 Test Item Value Reference Range Interpretation Comments Lipase Lvl (test code = Lipase Lvl) 78 73-393 [facility]KibclmdFKNWGWLYFU8622-76-96 17:19:00 Test Item Value Reference Range Interpretation Comments WBC (test code = WBC) 11.3 3.7-10.4 [facility]landsEuznjljBOJDIMKIDC6505-94-27 17:19:00 Test Item Value Reference Range Interpretation Comments RBC (test code = RBC) 4.97 4.70-6.10 [facility]landsAlbqyxvEJSPKENPMB6397-94-74 17:19:00 Test Item Value Reference Range Interpretation Comments Hgb (test code = Hgb) 15.6 14.0-18.0 [facility]landsHvdxhjwRTZKOLMITM4914-26-22 17:19:00 Test Item Value Reference Range Interpretation Comments Hct (test code = Hct) 45.2 42.0-54.0 [facility]landsZamgikjKPHBVRHYYX4127-04-09 17:19:00 Test Item Value Reference Range Interpretation Comments MCV (test code = MCV) 90.9 80.0-94.0 [facility]landsMucpwglOTFGOHENPO4763-93-15 17:19:00 Test Item Value Reference Range Interpretation Comments MCH (test code = MCH) 31.3 pg 27.0-31.0 [facility]landsQmkpdbeKEJYWSYLIO9636-12-32 17:19:00 Test Item Value Reference Range Interpretation Comments MCHC (test code = MCHC) 34.4 32.0-36.0 [facility]landsYuwhpkqHDFOGBOIKJ1514-78-60 17:19:00 Test Item Value Reference Range Interpretation Comments RDW (test code = RDW) 12.7 11.5-14.5 [facility]landsMzqmgsxXKQMTYUUTA2652-44-71 17:19:00 Test Item Value Reference Range Interpretation Comments Platelet (test code = Platelet) 209 133450 [facility]landsIhidoihHFRPLOTTQP2482-36-45 17:19:00 Test Item Value Reference Range Interpretation Comments MPV (test code = MPV) 10.2 7.4-10.4 [facility]landsFqicypfXXYQDYOOCH6763-58-40 17:19:00 Test Item Value Reference Range Interpretation Comments Segs (test code = Segs) 59.2 45.0-75.0 [facility]landsElkrklyYBQGSTODWH8310-54-33 17:19:00 Test Item Value Reference Range Interpretation Comments Lymphocytes (test code = Lymphocytes) 21.5 20.0-40.0 [facility]landsDsjbmlyDOKTXMNNBB0624-78-43 17:19:00 Test Item Value Reference Range Interpretation Comments Monocytes (test code = Monocytes) 11.7 2.0-12.0 [facility]landsPmosgpqMFABMZEZDK6022-56-14 17:19:00 Test Item Value Reference Range Interpretation Comments Eosinophils (test code = 6.5 See_Comment [A utomated message] The Eosinophils) system which ge nerated this result tra nsmitted reference range : <=4.0. The reference r tony was not used to int erpret this result as normal/abnormal . [facility]landsPbngbfoWNOMQXNOUO3838-34-17 17:19:00 Test Item Value Reference Range Interpretation Comments Basophils (test code = 1.1 See_Comment [Aut omated message] The Basophils) system which ge nerated this result tra nsmitted reference range : <=1.0. The reference r tony was not used to int erpret this result as normal/abnormal . [facility]landsUwydwklFMNPYDONGL5474-34-88 17:19:00 Test Item Value Reference Range Interpretation Comments Neutrophils # (test code = Neutrophils 6.7 1.5-8.1 #) [facility]landsYxecqzuGFTZUGVJTW9515-21-68 17:19:00 Test Item Value Reference Range Interpretation Comments Lymphocytes # (test code = Lymphocytes 2.4 1.0-5.5 #) [facility]landsMfjqwhwMVJBJHZLCB4543-75-84 17:19:00 Test Item Value Reference Range Interpretation Comments Monocytes # (test code 1.3 See_Comment [Aut omated message] The = Monocytes #) system which generated this result tra nsmitted reference range : <=0.8. The reference r tony was not used to int erpret this result as normal/abnormal . [place] 739002-06-14 17:19:00 Test Item Value Reference Range Interpretation Comments Eosinophils # (test code 0.7 See_Comment [A utomated message] The = Eosinophils #) system whic h generated this result tra nsmitted reference range : <=0.5. The reference r tony was not used to int erpret this result as normal/abnormal . [facility]landsPmweoswJNYUCPKBKV2789-22-17 17:19:00 Test Item Value Reference Range Interpretation Comments Basophils # (test code 0.1 See_Comment [Aut omated message] The = Basophils #) system which generated this result tra nsmitted reference range : <=0.2. The reference r tony was not used to int erpret this result as normal/abnormal . [place] [id number] 17:19:00 Test Item Value Reference Range Interpretation Comments Grp A Strep Scr (test Negative (11/14/21 12:19 code = Grp A Strep PM) Scr) [facility] STREP GROUP [id number] 13:33:00 Test Item Value Reference Range Interpretation [...] the FDA and the [employer] (CAP) are more stringent than those required for this test. Therefore, the result should be interpreted with caution and close attention to other clinical and epidemiological data [id number] 07:38:00 Test Item Value Reference Range Interpretation [...] code = LEUK) NEGATIVE NEGATIVE BRAIN NATRIURETIC [id number] 06:26:00 Test Item Value Reference Range Interpretation Comments proBNP (test code = PBNP) 20 pg/mL 0-125 AMYLASE AND [id number] 06:24:00 Test Item Value Reference Range Interpretation Comments AMYLASE (test code = 10A) 55 U/L 28-100 LIPASE (test code = 60A) 221 IU/L 73-393 [id number] 06:24:00 Test Item Value Reference Range Interpretation Comments CPK (test code = 32A) 100 IU/L 39-308 COMPREHENSIVE METABOLIC [id number] 06:24:00 Test Item Value Reference Range Interpretation [...] code = 31A) 59 IU/L <=78 LDH-LACTIC [id number] 06:23:00 Test Item Value Reference Range Interpretation Comments LDH (test code = 33A) 195 IU/L 100-190 H [id number] 06:23:00 Test Item Value Reference Range Interpretation Comments FERRITIN (test code = A19) 122.3 ng/mL 26.0-388.0 TROPONIN [id number] 06:21:00 Test Item Value Reference Range Interpretation Comments TROPONIN I (test code = A84) <0.015 ng/mL 0.000-0.045 [id number] 06:18:00 Test Item Value Reference Range Interpretation Comments MAGNESIUM (test code = 48A) 2.2 mg/dL 1.8-2.4 C-REACTIVE PROTEIN [id number] 06:17:00 Test Item Value Reference Range Interpretation Comments CRP QUANT (test code <2.9 mg/L 0.0-2.9 = CRPQ) Method Change (test Please note the code = METHOD) change in Method and the reference range DIRECT INFLUENZA A AND B [id number] 06:16:00 Test Item Value Reference Range Interpretation Comments Direct Exam (test PRESUMPTIVE NEGATIVE FOR code = DE1) THE PRESENCE OF INFLUENZA ANTIGEN PRO TIME AND [id number] 06:12:00 Test Item Value Reference Range Interpretation [...] or LMW Heparin. Order Code is ANTI-XA [id number] 06:12:00 Test Item Value Reference Range Interpretation Comments D-DIMER (test code = <200 ng/mL D-DU 0-234 DDI) D-DIMER COMMENT (test *Level to rule out code = DDCOM) DVT or PE: <235 ng/mL D-DU* Venous Blood [id number] 06:03:00 Test Item Value Reference Range Interpretation Comments VpH (test code = 7.383 7.300-7.400 VPHRT) VpCO2 (test code = 46.0 mmHg 40.0-50.0 NXKO7QM) VpO2 (test code = 55.5 mmHg 30.0-40.0 H VPO2RT) HCO3? (test code = 26.8 mmol/L 22.0-26.0 H HCO3) RADHA (test code = RADHA) 1.7 mmol/L -3.0-3.0 tHb (test code = 15.1 g/dL 14.0-18.0 THBRT) vsO2 (test code = 90.7 % 55.0-75.0 H VSO2RT) FO2Hb (test code = 86.2 % GA9PTHGC) FCOHb (test code = 3.5 % FCOHBRTV) FMetHb (test code = 1.4 % FMETHBRTV) ABGTEMP (test code = * Temp Corrected Values* ABGTEMP) ABGTEMP (test code = 37.0 ?C ABGTEMP.) pH (T) (test code = 7.383 7.300-7.400 PHTEMPV) pCO2 (T) (test code = 46.0 mmHg 40.0-50.0 NHY9FKXNX) pO2 (T) (test code = 55.5 mmHg 30.0-40.0 H FR2RBFEJ) Device (test code = ROOM AIR DEVICE) [...] (test code = RBCMOR) NORMAL COVID-19 qualitative [id number] 05:07:48 Test Item Value Reference Range Interpretation Comments Interpretation (test Negative results do code = 3568604) not preclude 2019-nCoV infection and should not be used as the sole basis for treatment or other patient management decisions. Negative results must be combined with clinical observations, patient history, and epidemiological information. COVID-19 qualitative Not-Detected Not-Detected RT-PCR result (test code = 63209-8) COVID-19 qualitative See link below for C ase Number: RT-PCR (test code = PDF Lab Report [id number]) [facility]2018-09-26 20:23:00 Test Item Value Reference Range Interpretation Comments AGAP (test code = AGAP) 9.8 10.0-20.0 [facility] HospitalTszcxizLXWFPUTBORNT7658-48-97 20:23:00 Test Item Value Reference Range Interpretation Comments Globulin (test code = Globulin) 2.9 2.7-4.2 [facility] HospitalJnthzmwTWYCLWXUSJCH5165-69-75 20:23:00 Test Item Value Reference Range Interpretation Comments A/G Ratio (test code = A/G Ratio) 1.3 1 0.7-1.6 [facility] HospitalNbuyswzKIVUJWWXFISC9930-37-59 20:23:00 Test Item Value Reference Range Interpretation Comments B/C Ratio (test code = B/C Ratio) 12 1 6-25 [facility] HospitalLhkkcgxSDIQAVQLBBED2325-41-91 20:23:00 Test Item Value Reference Range Interpretation Comments eGFR (test code = eGFR) 101 [facility] HospitalJuafdndQWLKSCADHDJL7809-88-61 20:23:00 Test Item Value Reference Range Interpretation Comments Bili Total (test code = Bili Total) 0.5 0.2-1.3 [facility] HospitalAzeazyrZBTAEBRBLPYX3481-40-30 20:23:00 Test Item Value Reference Range Interpretation Comments Alk Phos (test code = Alk Phos) 54 39-136 [facility] HospitalZxrkdmwSVMTLCDRBXUI3383-37-13 20:23:00 Test Item Value Reference Range Interpretation Comments Total Protein (test code = Total 6.7 6.4-8.4 Protein) [facility] HospitalPgbjaxaKJKJSWLUKGSG1467-06-73 20:23:00 Test Item Value Reference Range Interpretation Comments Albumin Lvl (test code = Albumin Lvl) 3.8 3.5-5.0 [facility] HospitalKdxdbfyRFTPEMIHVCMM6126-81-13 20:23:00 Test Item Value Reference Range Interpretation Comments Calcium Lvl (test code = Calcium Lvl) 8.2 8.5-10.5 [facility] HospitalMeuolxeVGGBZXNCCZMP6689-53-77 20:23:00 Test Item Value Reference Range Interpretation Comments ALT (test code = ALT) 20 See_Comment [Auto mated message] The system which ge nerated this result transmit ezequiel reference range : <=65. The reference range was not used to interpr et this result as grace l/abnormal. [facility] HospitalLnemhusUULPCDRLMRDI2268-72-14 20:23:00 Test Item Value Reference Range Interpretation Comments AST (test code = AST) 30 See_Comment [Auto mated message] The system which ge nerated this result transmit ezequiel reference range : <=37. The reference range was not used to interpr et this result as grace l/abnormal. [facility] HospitalJhheikaMTNPFIWLIVJX9602-20-71 20:23:00 Test Item Value Reference Range Interpretation Comments Sodium Lvl (test code = Sodium Lvl) 142 135-145 [facility] HospitalJcwjatmQDNRJYAYLTFB6770-27-47 20:23:00 Test Item Value Reference Range Interpretation Comments Potassium Lvl (test code = Potassium 4.8 3.5-5.1 Lvl) [facility] HospitalQzunrxoRBNQXDWDQEOK5964-77-61 20:23:00 Test Item Value Reference Range Interpretation Comments Creatinine Lvl (test code = Creatinine 1.00 0.50-1.40 Lvl) [facility] HospitalBkcvkriLWYLMIEFSQTK1321-11-90 20:23:00 Test Item Value Reference Range Interpretation Comments Chloride Lvl (test code = Chloride Lvl) 111 95-109 [facility] HospitalBigmlxtCKERAKCGNBIO8620-77-82 20:23:00 Test Item Value Reference Range Interpretation Comments CO2 (test code = CO2) 26 24-32 [facility] HospitalPcguivuMLSPYEXSQCJU4981-31-21 20:23:00 Test Item Value Reference Range Interpretation Comments Glucose Lvl (test code = Glucose Lvl) 93 70-99 [facility] HospitalGoiapguPRKNTZSKQIID6828-17-19 20:23:00 Test Item Value Reference Range Interpretation Comments BUN (test code = BUN) 12 7-22 [facility]KzzxoyhQIOCSMTMEU7010-80-35 20:23:00 Test Item Value Reference Range Interpretation Comments Basophils # (test code 0.1 See_Comment [Aut omated message] The = Basophils #) system which generated this result tra nsmitted reference range : <=0.2. The reference r tony was not used to int erpret this result as normal/abnormal . [facility]landsWvecirkKCKJSQJLZL8747-50-32 20:23:00 Test Item Value Reference Range Interpretation Comments Eosinophils # (test code 0.1 See_Comment [A utomated message] The = Eosinophils #) system whic h generated this result tra nsmitted reference range : <=0.5. The reference r tony was not used to int erpret this result as normal/abnormal . [facility]landsXzyvgikZUUDWODQIX3289-77-52 20:23:00 Test Item Value Reference Range Interpretation Comments Lymphocytes (test code = Lymphocytes) 16.2 20.0-40.0 [facility]landsWkukhrpFJLLYBMSUK9139-54-78 20:23:00 Test Item Value Reference Range Interpretation Comments Monocytes (test code = Monocytes) 4.7 2.0-12.0 [facility]landsOaffkmcQLLDEGCITJ4975-15-81 20:23:00 Test Item Value Reference Range Interpretation Comments Neutrophils # (test code = Neutrophils 9.7 1.5-8.1 #) [facility]landsDnftxzsXDLRNCORKX0057-00-51 20:23:00 Test Item Value Reference Range Interpretation Comments Eosinophils (test code = 0.7 See_Comment [A utomated message] The Eosinophils) system which ge nerated this result tra nsmitted reference range : <=4.0. The reference r tony was not used to int erpret this result as normal/abnormal . [facility]landsFowareyYBVCZOVWFV6989-77-85 20:23:00 Test Item Value Reference Range Interpretation Comments Basophils (test code = 0.6 See_Comment [Aut omated message] The Basophils) system which ge nerated this result tra nsmitted reference range : <=1.0. The reference r tony was not used to int erpret this result as normal/abnormal . [facility]landsGhczmwvQKXUUPZGAI2765-59-29 20:23:00 Test Item Value Reference Range Interpretation Comments Segs (test code = Segs) 77.8 45.0-75.0 [facility]landsTsyygfiEXPBLEEFVI0114-48-88 20:23:00 Test Item Value Reference Range Interpretation Comments Monocytes # (test code 0.6 See_Comment [Aut omated message] The = Monocytes #) system which generated this result tra nsmitted reference range : <=0.8. The reference r tony was not used to int erpret this result as normal/abnormal . [facility]landsYkwvbenCWIIDOEHSR8601-38-77 20:23:00 Test Item Value Reference Range Interpretation Comments Lymphocytes # (test code = Lymphocytes 2.0 1.0-5.5 #) [facility]landsGgzdaosXZAWAMEPPI4264-56-65 20:23:00 Test Item Value Reference Range Interpretation Comments RDW (test code = RDW) 13.2 11.5-14.5 [facility]landsPrjlhlvDAIWNMNNWZ0238-85-45 20:23:00 Test Item Value Reference Range Interpretation Comments MCV (test code = MCV) 94.1 80.0-94.0 [facility]landsPxvjzjmFIXLXIIJWB2766-12-85 20:23:00 Test Item Value Reference Range Interpretation Comments MCHC (test code = MCHC) 32.7 32.0-36.0 [facility]landsYcbzcsdHWDZSATXVE3414-59-65 20:23:00 Test Item Value Reference Range Interpretation Comments MCH (test code = MCH) 30.7 pg 27.0-31.0 [facility]landsTexaiqvMZVZMIXJWW1878-70-67 20:23:00 Test Item Value Reference Range Interpretation Comments Platelet (test code = Platelet) 199 133-450 [facility]landsTmwjhebGWQUXHTCIF8739-35-88 20:23:00 Test Item Value Reference Range Interpretation Comments MPV (test code = MPV) 10.0 7.4-10.4 [facility]landsJhzhpzqJGZRPCTFTZ6082-64-80 20:23:00 Test Item Value Reference Range Interpretation Comments Hgb (test code = Hgb) 13.3 14.0-18.0 [facility]landsSuopgimOKFLSALTHJ4149-96-41 20:23:00 Test Item Value Reference Range Interpretation Comments RBC (test code = RBC) 4.31 4.70-6.10 [facility]landsXjiuntgZANJWMTOSC3426-64-43 20:23:00 Test Item Value Reference Range Interpretation Comments Hct (test code = Hct) 40.6 42.0-54.0 [facility]landsWdmryywQWCGNOCOJL0622-61-48 20:23:00 Test Item Value Reference Range Interpretation Comments WBC (test code = WBC) 12.4 3.7-10.4 [facility]landsXrqfdxuMQXHVZGRYT9311-14-40 20:23:00 Test Item Value Reference Range Interpretation Comments INR (test code = INR) 1.10 1 0.85-1.17 [facility]landsLmgbtajBWAZIBYQOA2760-07-29 20:23:00 Test Item Value Reference Range Interpretation Comments PT (test code = PT) 14.2 s 12.0-14.7 [facility]landsBsjadzvDKMNIQKCKT1712-40-63 20:23:00 Test Item Value Reference Range Interpretation Comments PTT (test code = PTT) 26.1 s 22.9-35.8 [place] [id number] 20:23:00 Test Item Value Reference Range Interpretation Comments Ethanol Lvl (test code = Ethanol Lvl) no gt [place] [id number] 20:23:00 Test Item Value Reference Range Interpretation Comments Etoh (%) (test code = Etoh (%)) no gt [facility]landsQrcctngCXGDFXKXWJ9600-13-94 20:23:00 Test Item Value Reference Range Interpretation Comments Lymphocytes (test code = Lymphocytes) 16.2 20.0-40.0 [facility]landsAiqpmepPSSKYWQCOU9569-25-90 20:23:00 Test Item Value Reference Range Interpretation Comments Monocytes (test code = Monocytes) 4.7 2.0-12.0 [facility]landsJdlspdzGRWCJGQWUD0524-38-12 20:23:00 Test Item Value Reference Range Interpretation Comments Neutrophils # (test code = Neutrophils 9.7 1.5-8.1 #) [facility]landsQmpvlgmUFGRPUWKDN3537-25-28 20:23:00 Test Item Value Reference Range Interpretation Comments Eosinophils (test code = 0.7 See_Comment [A utomated message] The Eosinophils) system which ge nerated this result tra nsmitted reference range : <=4.0. The reference r tony was not used to int erpret this result as normal/abnormal . [facility]landsEpnlxeqMTJTIPKUZZ1601-74-79 20:23:00 Test Item Value Reference Range Interpretation Comments Basophils (test code = 0.6 See_Comment [Aut omated message] The Basophils) system which ge nerated this result tra nsmitted reference range : <=1.0. The reference r tony was not used to int erpret this result as normal/abnormal . [facility]landsYulrhqtARMPYTMKYQ3975-56-55 20:23:00 Test Item Value Reference Range Interpretation Comments Segs (test code = Segs) 77.8 45.0-75.0 [facility]landsVzoaebjGBYCMUDMUI7790-66-80 20:23:00 Test Item Value Reference Range Interpretation Comments Monocytes # (test code 0.6 See_Comment [Aut omated message] The = Monocytes #) system which generated this result tra nsmitted reference range : <=0.8. The reference r tony was not used to int erpret this result as normal/abnormal . [facility]landsTmofsbuVGCJNTLNFU1852-59-14 20:23:00 Test Item Value Reference Range Interpretation Comments Lymphocytes # (test code = Lymphocytes 2.0 1.0-5.5 #) [facility]landsZyiiagbAVRSQBGJOP6833-32-27 20:23:00 Test Item Value Reference Range Interpretation Comments RDW (test code = RDW) 13.2 11.5-14.5 [facility]landsRytjxaoLTBMBQRQVF6421-09-88 20:23:00 Test Item Value Reference Range Interpretation Comments MCV (test code = MCV) 94.1 80.0-94.0 [facility]landsXcksalyTTCIPNKZHF2127-85-61 20:23:00 Test Item Value Reference Range Interpretation Comments MCHC (test code = MCHC) 32.7 32.0-36.0 [facility]landsNsydtwzFRQNEBIXIU2825-32-52 20:23:00 Test Item Value Reference Range Interpretation Comments MCH (test code = MCH) 30.7 pg 27.0-31.0 [facility]GrcrcptOZRYERGAVS6180-61-38 20:23:00 Test Item Value Reference Range Interpretation Comments Platelet (test code = Platelet) 199 133-450 [facility] HospitalKhyqvkxVZQYCGQLDG8547-76-13 20:23:00 Test Item Value Reference Range Interpretation Comments MPV (test code = MPV) 10.0 7.4-10.4 [facility]landsKazmzbsWWULCCMAYV5271-13-21 20:23:00 Test Item Value Reference Range Interpretation Comments Hgb (test code = Hgb) 13.3 14.0-18.0 [facility] HospitalFguudxdBRUCQTEHWC1291-12-22 20:23:00 Test Item Value Reference Range Interpretation Comments RBC (test code = RBC) 4.31 4.70-6.10 [facility]landsJpzepriASAXITYPVN0406-25-35 20:23:00 Test Item Value Reference Range Interpretation Comments Hct (test code = Hct) 40.6 42.0-54.0 [facility]landsHwnzukeRCNUMRUDKS6061-55-45 20:23:00 Test Item Value Reference Range Interpretation Comments WBC (test code = WBC) 12.4 3.7-10.4 [facility] HospitalVdhdfyzYULSPYQFLD6034-23-46 20:23:00 Test Item Value Reference Range Interpretation Comments INR (test code = INR) 1.10 1 0.85-1.17 [facility]landsEmvrzlyZPHIPUVTUU6372-75-24 20:23:00 Test Item Value Reference Range Interpretation Comments PT (test code = PT) 14.2 s 12.0-14.7 [facility] HospitalPlqlmlkIOWDCOBSRR3925-66-47 20:23:00 Test Item Value Reference Range Interpretation Comments PTT (test code = PTT) 26.1 s 22.9-35.8 [facility]FnknwzwDHADUAZPAU4801-30-74 20:23:00 Test Item Value Reference Range Interpretation Comments Ethanol Lvl (test code = Ethanol Lvl) [facility]GwqasypDFSLZOSNFZ5900-22-50 20:23:00 Test Item Value Reference Range Interpretation Comments Etoh (%) (test code = Etoh (%)) [facility] HospitalWinxicnKVYXSJBMPIRW4856-62-53 20:23:00 Test Item Value Reference Range Interpretation Comments AGAP (test code = AGAP) 9.8 10.0-20.0 [facility] HospitalVkahkpsMEXRSTHUCOGA5522-29-39 20:23:00 Test Item Value Reference Range Interpretation Comments Globulin (test code = Globulin) 2.9 2.7-4.2 [facility] HospitalKjhqechSMTVQIEWQNYS0647-98-57 20:23:00 Test Item Value Reference Range Interpretation Comments A/G Ratio (test code = A/G Ratio) 1.3 1 0.7-1.6 [facility] HospitalWedpkfbWGXSORPPAOAI3458-59-70 20:23:00 Test Item Value Reference Range Interpretation Comments B/C Ratio (test code = B/C Ratio) 12 1 6-25 [facility] HospitalGjarbfjAWGHZJDHZZVE1020-07-78 20:23:00 Test Item Value Reference Range Interpretation Comments eGFR (test code = eGFR) 101 [facility] HospitalXonrofeSGTRAWYZUQSW6943-98-15 20:23:00 Test Item Value Reference Range Interpretation Comments Bili Total (test code = Bili Total) 0.5 0.2-1.3 [facility] HospitalOjdpekkZDCDDVYFOYJU1720-32-27 20:23:00 Test Item Value Reference Range Interpretation Comments Alk Phos (test code = Alk Phos) 54 39-136 [facility] HospitalAhlubrxTEUQMONCXQLC2982-54-91 20:23:00 Test Item Value Reference Range Interpretation Comments Total Protein (test code = Total 6.7 6.4-8.4 Protein) [facility] HospitalSrbyiaxPWZFRYOZKDVV3076-36-90 20:23:00 Test Item Value Reference Range Interpretation Comments Albumin Lvl (test code = Albumin Lvl) 3.8 3.5-5.0 [facility] HospitalLtglzarFIEKKPEVKQHV7809-05-60 20:23:00 Test Item Value Reference Range Interpretation Comments Calcium Lvl (test code = Calcium Lvl) 8.2 8.5-10.5 [facility] HospitalStjfwquVOYXMDCRSBUN1091-34-21 20:23:00 Test Item Value Reference Range Interpretation Comments ALT (test code = ALT) 20 See_Comment [Auto mated message] The system which ge nerated this result transmit ezequiel reference range : <=65. The reference range was not used to interpr et this result as grace l/abnormal. [facility] HospitalFxnhjulFIBBZLKCGHMW9322-98-54 20:23:00 Test Item Value Reference Range Interpretation Comments AST (test code = AST) 30 See_Comment [Auto mated message] The system which ge nerated this result transmit ezequiel reference range : <=37. The reference range was not used to interpr et this result as grace l/abnormal. [facility]KmplehnVHXZYSKYSGUQ0349-12-77 20:23:00 Test Item Value Reference Range Interpretation Comments Sodium Lvl (test code = Sodium Lvl) 142 135-145 [facility] HospitalUzhfrzzCOSTYKYXGDKH0603-44-53 20:23:00 Test Item Value Reference Range Interpretation Comments Potassium Lvl (test code = Potassium 4.8 3.5-5.1 Lvl) [facility] HospitalLeqrmqzQWSWOPXNJSDD0022-95-48 20:23:00 Test Item Value Reference Range Interpretation Comments Creatinine Lvl (test code = Creatinine 1.00 0.50-1.40 Lvl) [facility] HospitalSniijgyFEOMKAEDECVZ8414-87-74 20:23:00 Test Item Value Reference Range Interpretation Comments Chloride Lvl (test code = Chloride Lvl) 111 95-109 [facility] HospitalVodwggqCRGCYCWHCMZS2311-99-96 20:23:00 Test Item Value Reference Range Interpretation Comments CO2 (test code = CO2) 26 24-32 [facility] HospitalJjmpwwmBKEVROXYJUCM9718-15-37 20:23:00 Test Item Value Reference Range Interpretation Comments Glucose Lvl (test code = Glucose Lvl) 93 70-99 [facility] HospitalYzybwzsACZRECYSLUAF4609-63-58 20:23:00 Test Item Value Reference Range Interpretation Comments BUN (test code = BUN) 12 7-22 [facility]landsAegovqxQWLPYHVQNA5734-72-52 20:23:00 Test Item Value Reference Range Interpretation Comments Basophils # (test code 0.1 See_Comment [Aut omated message] The = Basophils #) system which generated this result tra nsmitted reference range : <=0.2. The reference r tony was not used to int erpret this result as normal/abnormal . [facility]landsSyawiasGXSAQRPVQT2822-91-41 20:23:00 Test Item Value Reference Range Interpretation Comments Eosinophils # (test code 0.1 See_Comment [A utomated message] The = Eosinophils #) system whic h generated this result tra nsmitted reference range : <=0.5. The reference r tony was not used to int erpret this result as normal/abnormal . [facility]landsWaxkufjPOUZWXITYD6712-82-15 20:23:00 Test Item Value Reference Range Interpretation Comments Lymphocytes (test code = Lymphocytes) 16.2 20.0-40.0 [facility]landsDojqpgeJICOBVMYSS0975-77-39 20:23:00 Test Item Value Reference Range Interpretation Comments Monocytes (test code = Monocytes) 4.7 2.0-12.0 [facility]landsYrafuheEJUJUSYBTP6352-83-03 20:23:00 Test Item Value Reference Range Interpretation Comments Neutrophils # (test code = Neutrophils 9.7 1.5-8.1 #) [facility]landsSbvedxpZGZERTFKKX8739-17-70 20:23:00 Test Item Value Reference Range Interpretation Comments Eosinophils (test code = 0.7 See_Comment [A utomated message] The Eosinophils) system which ge nerated this result tra nsmitted reference range : <=4.0. The reference r tony was not used to int erpret this result as normal/abnormal . [facility]landsGnuwjnuJWQSXSIZOX0059-02-39 20:23:00 Test Item Value Reference Range Interpretation Comments Basophils (test code = 0.6 See_Comment [Aut omated message] The Basophils) system which ge nerated this result tra nsmitted reference range : <=1.0. The reference r tony was not used to int erpret this result as normal/abnormal . [facility]landsTpekgmoHWMXLKUQFF2771-63-98 20:23:00 Test Item Value Reference Range Interpretation Comments Segs (test code = Segs) 77.8 45.0-75.0 [facility]landsHsyiiyuQTJCXVODGH0200-17-23 20:23:00 Test Item Value Reference Range Interpretation Comments Monocytes # (test code 0.6 See_Comment [Aut omated message] The = Monocytes #) system which generated this result tra nsmitted reference range : <=0.8. The reference r tony was not used to int erpret this result as normal/abnormal . [facility]landsTfvbfdcCRFCOBTYUB3794-98-95 20:23:00 Test Item Value Reference Range Interpretation Comments Lymphocytes # (test code = Lymphocytes 2.0 1.0-5.5 #) [facility]landsPjwqlicPNXPKDZANL1709-77-82 20:23:00 Test Item Value Reference Range Interpretation Comments RDW (test code = RDW) 13.2 11.5-14.5 [facility]landsSfozbjbAMTACWUIIG1011-47-32 20:23:00 Test Item Value Reference Range Interpretation Comments MCV (test code = MCV) 94.1 80.0-94.0 [facility]landsWqykeenPJYGZQHEQG5837-80-84 20:23:00 Test Item Value Reference Range Interpretation Comments MCHC (test code = MCHC) 32.7 32.0-36.0 [facility]landsJmwoouqFKRBLPHAYI1538-03-10 20:23:00 Test Item Value Reference Range Interpretation Comments MCH (test code = MCH) 30.7 pg 27.0-31.0 [facility]landsVnxmycvZSOJDUFAIZ0485-99-68 20:23:00 Test Item Value Reference Range Interpretation Comments Platelet (test code = Platelet) 199 133-450 [facility]landsXayohdcKYTNQUFOMV1307-89-07 20:23:00 Test Item Value Reference Range Interpretation Comments MPV (test code = MPV) 10.0 7.4-10.4 [facility]landsTkkiemjLZTDIBZNXM1122-53-37 20:23:00 Test Item Value Reference Range Interpretation Comments Hgb (test code = Hgb) 13.3 14.0-18.0 [facility]landsAwdsittYGMXIMIVYF4834-09-69 20:23:00 Test Item Value Reference Range Interpretation Comments RBC (test code = RBC) 4.31 4.70-6.10 [facility]landsOdcrvfzXWVDYQTHPP3247-46-79 20:23:00 Test Item Value Reference Range Interpretation Comments Hct (test code = Hct) 40.6 42.0-54.0 [facility]landsSrjccicHKZGJEVARS6479-84-22 20:23:00 Test Item Value Reference Range Interpretation Comments WBC (test code = WBC) 12.4 3.7-10.4 [facility]landsAkvhjgiAWXKCRPEGY3077-96-96 20:23:00 Test Item Value Reference Range Interpretation Comments INR (test code = INR) 1.10 1 0.85-1.17 [facility]landsYcabfpbDSZIAJHIRJ4464-44-66 20:23:00 Test Item Value Reference Range Interpretation Comments PT (test code = PT) 14.2 s 12.0-14.7 [facility]landsGxwgxxnATILVSHKVT1712-54-21 20:23:00 Test Item Value Reference Range Interpretation Comments PTT (test code = PTT) 26.1 s 22.9-35.8 [facility]TI[facility]TSVITFC3695-39-35 20:23:00 Test Item Value Reference Range Interpretation Comments Ethanol Lvl (test code = Ethanol Lvl) [facility] gt [facility]RkqgogqUCHDXVWCVM3110-97-03 20:23:00 Test Item Value Reference Range Interpretation Comments Etoh (%) (test code = Etoh (%)) no gt [facility] HospitalKmvumghCLGCXLCMYQXL3706-25-10 20:23:00 Test Item Value Reference Range Interpretation Comments AGAP (test code = AGAP) 9.8 10.0-20.0 [facility] HospitalDdkbzmsBINUQJKZKPOG1965-96-86 20:23:00 Test Item Value Reference Range Interpretation Comments Globulin (test code = Globulin) 2.9 2.7-4.2 [facility] HospitalGkbloyaPSTUFXNWDFWO3003-03-51 20:23:00 Test Item Value Reference Range Interpretation Comments A/G Ratio (test code = A/G Ratio) 1.3 1 0.7-1.6 [facility] HospitalSuzmjemSBJOBBXTVLLJ5319-70-56 20:23:00 Test Item Value Reference Range Interpretation Comments B/C Ratio (test code = B/C Ratio) 12 1 6-25 [facility] HospitalZgdbdkfDBUDWZRDIXYB7558-54-39 20:23:00 Test Item Value Reference Range Interpretation Comments eGFR (test code = eGFR) 101 [facility] HospitalHfdnjnoGRNPDLWLPDRP0613-87-95 20:23:00 Test Item Value Reference Range Interpretation Comments Bili Total (test code = Bili Total) 0.5 0.2-1.3 [facility] HospitalCtfvjivUPMZSACYCFQX1814-36-85 20:23:00 Test Item Value Reference Range Interpretation Comments Alk Phos (test code = Alk Phos) 54 39-136 [facility] HospitalQfawtniLZYTIFKOMSVY0326-34-56 20:23:00 Test Item Value Reference Range Interpretation Comments Total Protein (test code = Total 6.7 6.4-8.4 Protein) [facility] HospitalSugtzysAMYIPFPJYQUU5535-01-99 20:23:00 Test Item Value Reference Range Interpretation Comments Albumin Lvl (test code = Albumin Lvl) 3.8 3.5-5.0 [facility] HospitalVyqzlcyBOCXYLMPGMBX6507-93-13 20:23:00 Test Item Value Reference Range Interpretation Comments Calcium Lvl (test code = Calcium Lvl) 8.2 8.5-10.5 [facility] HospitalDbiuearFJKCCNENSJVR9629-60-94 20:23:00 Test Item Value Reference Range Interpretation Comments ALT (test code = ALT) 20 See_Comment [Auto mated message] The system which ge nerated this result transmit ezequiel reference range : <=65. The reference range was not used to interpr et this result as grace l/abnormal. [facility] HospitalLugsxdsTVPMUDDLUWBE0522-93-77 20:23:00 Test Item Value Reference Range Interpretation Comments AST (test code = AST) 30 See_Comment [Auto mated message] The system which ge nerated this result transmit ezequiel reference range : <=37. The reference range was not used to interpr et this result as grace l/abnormal. [facility] HospitalDeupxegQUOWMUZULABY3427-84-51 20:23:00 Test Item Value Reference Range Interpretation Comments Sodium Lvl (test code = Sodium Lvl) 142 135-145 [facility] HospitalCggmybtUEHMCCXFDWLS0792-81-86 20:23:00 Test Item Value Reference Range Interpretation Comments Potassium Lvl (test code = Potassium 4.8 3.5-5.1 Lvl) [facility] HospitalItxvszzNEACFHBPUITW6115-76-59 20:23:00 Test Item Value Reference Range Interpretation Comments Creatinine Lvl (test code = Creatinine 1.00 0.50-1.40 Lvl) [facility] HospitalBrafbpnUBDGMXYPMLFP3788-46-29 20:23:00 Test Item Value Reference Range Interpretation Comments Chloride Lvl (test code = Chloride Lvl) 111 95-109 [facility] HospitalPbwamzvNUKMTTWODYGZ4441-36-38 20:23:00 Test Item Value Reference Range Interpretation Comments CO2 (test code = CO2) 26 24-32 [facility] HospitalXaujzqlPGVVWBWOAOYQ4490-43-65 20:23:00 Test Item Value Reference Range Interpretation Comments Glucose Lvl (test code = Glucose Lvl) 93 70-99 [facility] HospitalFxvookrRPTSJEPLNUDV4305-45-09 20:23:00 Test Item Value Reference Range Interpretation Comments BUN (test code = BUN) 12 7-22 [facility]landsDsgwfziCZHOACMESS9193-99-91 20:23:00 Test Item Value Reference Range Interpretation Comments Basophils # (test code 0.1 See_Comment [Aut omated message] The = Basophils #) system which generated this result tra nsmitted reference range : <=0.2. The reference r tony was not used to int erpret this result as normal/abnormal . [facility]landsGjsalvuQTGUIIOHQF8601-70-91 20:23:00 Test Item Value Reference Range Interpretation Comments Eosinophils # (test code 0.1 See_Comment [A utomated message] The = Eosinophils #) system whic h generated this result tra nsmitted reference range : <=0.5. The reference r tony was not used to int erpret this result as normal/abnormal . [facility]landsOneakwfIOWSGQVOFQ9102-29-59 20:23:00 Test Item Value Reference Range Interpretation Comments Lymphocytes (test code = Lymphocytes) 16.2 20.0-40.0 [facility]landsPsjbsrbFDSAUWCKBJ1353-99-63 20:23:00 Test Item Value Reference Range Interpretation Comments Monocytes (test code = Monocytes) 4.7 2.0-12.0 [facility]landsSagqakiNJARRBLATA3998-33-74 20:23:00 Test Item Value Reference Range Interpretation Comments Neutrophils # (test code = Neutrophils 9.7 1.5-8.1 #) [facility]landsPekfztdBSEQQXQIAQ8780-27-97 20:23:00 Test Item Value Reference Range Interpretation Comments Eosinophils (test code = 0.7 See_Comment [A utomated message] The Eosinophils) system which ge nerated this result tra nsmitted reference range : <=4.0. The reference r tony was not used to int erpret this result as normal/abnormal . [facility]landsEpifwyqWHFNWFREEH7758-42-14 20:23:00 Test Item Value Reference Range Interpretation Comments Basophils (test code = 0.6 See_Comment [Aut omated message] The Basophils) system which ge nerated this result tra nsmitted reference range : <=1.0. The reference r tony was not used to int erpret this result as normal/abnormal . [facility]landsMgrnoalDZQVEDJSXU5304-85-12 20:23:00 Test Item Value Reference Range Interpretation Comments Segs (test code = Segs) 77.8 45.0-75.0 [facility]landsQftghkhBRSPFYXSRF3462-73-31 20:23:00 Test Item Value Reference Range Interpretation Comments Monocytes # (test code 0.6 See_Comment [Aut omated message] The = Monocytes #) system which generated this result tra nsmitted reference range : <=0.8. The reference r tony was not used to int erpret this result as normal/abnormal . [facility]landsOolkjvnRCDDPUNCTV7655-47-99 20:23:00 Test Item Value Reference Range Interpretation Comments Lymphocytes # (test code = Lymphocytes 2.0 1.0-5.5 #) [facility]landsPflnaerIRVYDLMUQD9653-12-61 20:23:00 Test Item Value Reference Range Interpretation Comments RDW (test code = RDW) 13.2 11.5-14.5 [facility]landsJdarkegHQXLAXRROY6595-38-72 20:23:00 Test Item Value Reference Range Interpretation Comments MCV (test code = MCV) 94.1 80.0-94.0 [facility]landsQnclnbfZLHEYQVBWM0441-65-14 20:23:00 Test Item Value Reference Range Interpretation Comments MCHC (test code = MCHC) 32.7 32.0-36.0 [facility]landsNubjfgaPJNITXHGVD0471-28-72 20:23:00 Test Item Value Reference Range Interpretation Comments MCH (test code = MCH) 30.7 pg 27.0-31.0 [facility]landsNyfkydtOOBHVOIIOA8977-78-39 20:23:00 Test Item Value Reference Range Interpretation Comments Platelet (test code = Platelet) 199 133-450 [facility]landsYbssmwiRWTQTKFYUG5467-48-05 20:23:00 Test Item Value Reference Range Interpretation Comments MPV (test code = MPV) 10.0 7.4-10.4 [facility]landsUkgsdfgOPDKVLNJIP4285-01-76 20:23:00 Test Item Value Reference Range Interpretation Comments Hgb (test code = Hgb) 13.3 14.0-18.0 [facility]landsZjveytbSLZQRNXZHR1222-55-14 20:23:00 Test Item Value Reference Range Interpretation Comments RBC (test code = RBC) 4.31 4.70-6.10 [facility]landsWkwrpktRBOPNEZKUY7428-42-94 20:23:00 Test Item Value Reference Range Interpretation Comments Hct (test code = Hct) 40.6 42.0-54.0 [facility]landsCtesvthISALTEMUTP3746-30-70 20:23:00 Test Item Value Reference Range Interpretation Comments WBC (test code = WBC) 12.4 3.7-10.4 [facility]landsCrzeuqjIJCCTXCKLO4549-59-23 20:23:00 Test Item Value Reference Range Interpretation Comments INR (test code = INR) 1.10 1 0.85-1.17 [facility]landsScaxbjqOGVGFLZNVP3478-04-19 20:23:00 Test Item Value Reference Range Interpretation Comments PT (test code = PT) 14.2 s 12.0-14.7 [facility]landsWmigtwsDMAGHXMHTG3154-61-77 20:23:00 Test Item Value Reference Range Interpretation Comments PTT (test code = PTT) 26.1 s 22.9-35.8 [place] [id number] 20:23:00 Test Item Value Reference Range Interpretation Comments Ethanol Lvl (test code = Ethanol Lvl) no gt [place] [id number] 20:23:00 Test Item Value Reference Range Interpretation Comments Etoh (%) (test code = Etoh (%)) no gt [facility] HospitalTebnkknKLHVGVNFPVPL1025-98-83 20:23:00 Test Item Value Reference Range Interpretation Comments AGAP (test code = AGAP) 9.8 10.0-20.0 [facility] HospitalDenzkqfBXFRDNTWITMP2409-55-65 20:23:00 Test Item Value Reference Range Interpretation Comments Globulin (test code = Globulin) 2.9 2.7-4.2 [facility] HospitalXhdrgqlPRBUXOGCONUV5643-13-95 20:23:00 Test Item Value Reference Range Interpretation Comments A/G Ratio (test code = A/G Ratio) 1.3 1 0.7-1.6 [facility] HospitalTdgilyxTFWZQHQBHEIC8700-87-02 20:23:00 Test Item Value Reference Range Interpretation Comments B/C Ratio (test code = B/C Ratio) 12 1 6-25 [facility] HospitalCztinmjYNZAHOZSVQFS5027-26-71 20:23:00 Test Item Value Reference Range Interpretation Comments eGFR (test code = eGFR) 101 [facility] HospitalVcttobpJKVAVXVTQONC0351-85-18 20:23:00 Test Item Value Reference Range Interpretation Comments Bili Total (test code = Bili Total) 0.5 0.2-1.3 [facility] HospitalGbwalinBVZGAATIMKSM8769-88-52 20:23:00 Test Item Value Reference Range Interpretation Comments Alk Phos (test code = Alk Phos) 54 39-136 [facility] HospitalGzejeztIGYHHABJKBGX5836-27-76 20:23:00 Test Item Value Reference Range Interpretation Comments Total Protein (test code = Total 6.7 6.4-8.4 Protein) [facility] HospitalAfqulurFQEAGBOTEFJJ2182-83-32 20:23:00 Test Item Value Reference Range Interpretation Comments Albumin Lvl (test code = Albumin Lvl) 3.8 3.5-5.0 [facility] HospitalRunudqxDZSUOCOLBILJ9272-13-09 20:23:00 Test Item Value Reference Range Interpretation Comments Calcium Lvl (test code = Calcium Lvl) 8.2 8.5-10.5 [facility] HospitalKamxdgpKRMFUJMNAEGR7658-78-14 20:23:00 Test Item Value Reference Range Interpretation Comments ALT (test code = ALT) 20 See_Comment [Auto mated message] The system which ge nerated this result transmit ezequiel reference range : <=65. The reference range was not used to interpr et this result as grace l/abnormal. [facility] HospitalKnpwlhwVGZNYWUQTQAK5025-76-55 20:23:00 Test Item Value Reference Range Interpretation Comments AST (test code = AST) 30 See_Comment [Auto mated message] The system which ge nerated this result transmit ezequiel reference range : <=37. The reference range was not used to interpr et this result as grace l/abnormal. [facility] HospitalYzdgxxqVRIHKOTKLRIX3419-46-63 20:23:00 Test Item Value Reference Range Interpretation Comments Sodium Lvl (test code = Sodium Lvl) 142 135-145 [facility] HospitalTzjeeggDRMKTDECVEIT0458-53-30 20:23:00 Test Item Value Reference Range Interpretation Comments Potassium Lvl (test code = Potassium 4.8 3.5-5.1 Lvl) [facility] HospitalHfamnbhHDESPBMIAZRT6048-91-09 20:23:00 Test Item Value Reference Range Interpretation Comments Creatinine Lvl (test code = Creatinine 1.00 0.50-1.40 Lvl) [facility] HospitalYftadqzCWAFBMDEWKUJ0730-89-88 20:23:00 Test Item Value Reference Range Interpretation Comments Chloride Lvl (test code = Chloride Lvl) 111 95-109 [facility] HospitalJdkuaebZJWECLTXAZVZ0362-92-16 20:23:00 Test Item Value Reference Range Interpretation Comments CO2 (test code = CO2) 26 24-32 [facility] HospitalFjymocrBCSBEOQUONWE5730-87-99 20:23:00 Test Item Value Reference Range Interpretation Comments Glucose Lvl (test code = Glucose Lvl) 93 70-99 [facility] HospitalLeerppjHTXECWOKULKU2680-60-14 20:23:00 Test Item Value Reference Range Interpretation Comments BUN (test code = BUN) 12 7-22 [facility]EhfyidzDOXVKITEPT4939-30-11 20:23:00 Test Item Value Reference Range Interpretation Comments Basophils # (test code 0.1 See_Comment [Aut omated message] The = Basophils #) system which generated this result tra nsmitted reference range : <=0.2. The reference r tony was not used to int erpret this result as normal/abnormal . [facility]landsHifyaztBWEPSWWYUL8438-72-34 20:23:00 Test Item Value Reference Range Interpretation Comments Eosinophils # (test code 0.1 See_Comment [A utomated message] The = Eosinophils #) system whic h generated this result tra nsmitted reference range : <=0.5. The reference r tony was not used to int erpret this result as normal/abnormal . [facility] METABOLIC PANEL 2017-06-23 13:15:00 Test Item Value [...] 09D) 8.8 mg/dL 8.3-9.5 CBC (INCLUDES AUTOMATED DIFFERENTIAL)*[id number] 13:04:00 Test Item Value Reference Range Interpretation [...] 2 VIEW *WW*2017-06-23 12:51:56Exam: Chest 2 viewsLocation: I9Evlfvjp: cough, recent pneumonia.Comparison: 10/23/2016.Findings:The lungs are clear. Central peribronchial cuffing is present. No infiltrate oreffusion is seen. The pulmonary vasculature is normal. The heart size isnormal. The mediastinal silhouette is unremarkable. Thebony thorax is intact.Impression:Bronchitis .CT STONE PROTOCOL [id number] 01:06:08AFTER HOURS SERVICE ON: 06/22/2017 1:03 AMCT Scan of the Abdomen and Pelvis Without ContrastLocation Code K72Tvqkeaz: L flank painTechnique: Axial and reconstructed coronal [...] Noinflammatory changes seen.U/S TESTICULAR 2017-06-22 00:58:11U/S TESTICULARLocation: W7Wppgb hours services provided 06/22/2017 12:56 AMIndication: L [...] with no acute testicular or epididymalabnormality.AMYLASE AND [id number] 00:33:00 Test Item Value Reference Range Interpretation Comments AMYLASE (test code = 10A) 65 U/L 28-100 LIPASE (test code = 60A) 140 IU/L 73-393 COMPREHENSIVE METABOLIC [id number] 00:33:00 Test Item Value Reference Range Interpretation [...] (test code = 31A) 29 IU/L <=78 [id number] 00:31:00 Test Item Value Reference Range Interpretation [...] MORPH (test code = RBCMOR) NORMAL CHEM [id number] 00:46:00 Test Item Value Reference Range Interpretation Comments B/C Ratio (test code = B/C Ratio) 14 6-25 [facility] [employer] [id number] 00:46:00 Test Item Value Reference Range Interpretation Comments A/G Ratio (test code = A/G Ratio) 1.2 0.7-1.6 [facility] [employer] [id number] 00:46:00 Test Item Value Reference Range Interpretation Comments Globulin (test code = Globulin) 3.6 2.7-4.2 [facility] [employer] [id number] 00:46:00 Test Item Value Reference Range Interpretation Comments AGAP (test code = AGAP) 11.0 10.0-20.0 [facility] [employer] [id number] 00:46:00 Test Item Value Reference Range Interpretation Comments eGFR (test code = eGFR) 106 [facility] [employer] [id number] 00:46:00 Test Item Value Reference Range Interpretation Comments Albumin Lvl (test code = Albumin Lvl) 4.2 3.5-5.0 [facility] [employer] [id number] 00:46:00 Test Item Value Reference Range Interpretation Comments Total Protein (test code = Total 7.8 6.4-8.4 Protein) [facility] [employer] [id number] 00:46:00 Test Item Value Reference Range Interpretation Comments ALT (test code = ALT) 22 See_Comment [Auto mated message] The system which ge nerated this result transmit ezequiel reference range : <=65. The reference range was not used to interpr et this result as grace l/abnormal. [facility] [employer] [id number] 00:46:00 Test Item Value Reference Range Interpretation Comments Alk Phos (test code = Alk Phos) 72 39-[address] [facility]2017-06-19 00:46:00 Test Item Value Reference Range Interpretation Comments Bili Total (test code = Bili Total) 0.6 0.2-1.[address] [facility]2017-06-19 00:46:00 Test Item Value Reference Range Interpretation Comments AST (test code = AST) 15 See_Comment [Auto mated message] The system which ge nerated this result transmit ezequiel reference range : <=37. The reference range was not used to interpr et this result as grace l/abnormal. [facility]2017-06-19 00:46:00 Test Item Value Reference Range Interpretation Comments Potassium Lvl (test code = Potassium 4.0 3.5-5.1 Lvl) [facility]2017-06-19 00:46:00 Test Item Value Reference Range Interpretation Comments Chloride Lvl (test code = Chloride Lvl) 108 95-[address] [facility]2017-06-19 00:46:00 Test Item Value Reference Range Interpretation Comments CO2 (test code = CO2) 26 24-[address] [facility]2017-06-19 00:46:00 Test Item Value Reference Range Interpretation Comments Calcium Lvl (test code = Calcium Lvl) 9.4 8.5-10.[address] [facility]2017-06-19 00:46:00 Test Item Value Reference Range Interpretation Comments Glucose Lvl (test code = Glucose Lvl) 108 70-[address] [facility]2017-06-19 00:46:00 Test Item Value Reference Range Interpretation Comments Creatinine Lvl (test code = Creatinine 0.97 0.50-1.40 Lvl) [facility]2017-06-19 00:46:00 Test Item Value Reference Range Interpretation Comments BUN (test code = BUN) 14 7-[address] [facility]2017-06-19 00:46:00 Test Item Value Reference Range Interpretation Comments Sodium Lvl (test code = Sodium Lvl) 141 135-[address] [facility]2017-06-19 00:46:00 Test Item Value Reference Range Interpretation Comments Lipase Lvl (test code = Lipase Lvl) 197 73-393 [facility]HacsxqiJEQJQJZPLH6249-61-64 00:46:00 Test Item Value Reference Range Interpretation Comments Lymphocytes (test code = Lymphocytes) 18.8 20.0-40.0 [id number] 00:46:00 Test Item Value Reference Range Interpretation Comments Segs (test code = Segs) 70.6 45.0-75.0 [facility]lan[id number] 00:46:00 Test Item Value Reference Range Interpretation Comments Eosinophils # (test code 0.2 See_Comment [A utomated message] The = Eosinophils #) system wh h generated this result tra nsmitted reference range : <=0.5. The reference r tony was not used to int erpret this result as normal/abnormal . [facility]landsBfussfpMWUKUTIRTR6076-82-59 00:46:00 Test Item Value Reference Range Interpretation Comments Monocytes # (test code 0.8 See_Comment [Aut omated message] The = Monocytes #) system which generated this result tra nsmitted reference range : <=0.8. The reference r tony was not used to int erpret this result as normal/abnormal . [facility]landsKlaxntuQVJMJRWYZU1691-52-98 00:46:00 Test Item Value Reference Range Interpretation Comments Monocytes (test code = Monocytes) 8.3 2.0-12.0 [facility]landsFlqpzjiQDTFRBXGIA0216-94-49 00:46:00 Test Item Value Reference Range Interpretation Comments Eosinophils (test code = 2.0 See_Comment [A utomated message] The Eosinophils) system which ge nerated this result tra nsmitted reference range : <=4.0. The reference r tony was not used to int erpret this result as normal/abnormal . [facility]landsCiadbduZWUZCZTWQM0598-96-81 00:46:00 Test Item Value Reference Range Interpretation Comments Basophils (test code = 0.3 See_Comment [Aut omated message] The Basophils) system which ge nerated this result tra nsmitted reference range : <=1.0. The reference r tony was not used to int erpret this result as normal/abnormal . [facility]landsRdjlfugEXZWTQRJUZ9662-33-70 00:46:00 Test Item Value Reference Range Interpretation Comments Segs-Bands # (test code = Segs-Bands #) 7.2 1.5-8.1 [facility]landsCzvmzcqHPKJYDFYOV9462-45-75 00:46:00 Test Item Value Reference Range Interpretation Comments Lymphocytes # (test code = Lymphocytes 1.9 1.0-5.5 #) [facility]landsUsempjsLCXVITYVNV1101-40-04 00:46:00 Test Item Value Reference Range Interpretation Comments MCHC (test code = MCHC) 34.2 32.0-36.0 [facility]landsYbqxezbUTMSUNSGDD8867-63-45 00:46:00 Test Item Value Reference Range Interpretation Comments MPV (test code = MPV) 9.8 7.4-10.4 [facility]landsFwnkuqkLEKXVRCAHI6387-94-89 00:46:00 Test Item Value Reference Range Interpretation Comments Platelet (test code = Platelet) 189 133-450 [facility]landsAajviyrIAALLNLIKB4853-31-01 00:46:00 Test Item Value Reference Range Interpretation Comments RDW (test code = RDW) 13.8 11.5-14.5 [facility]landsRlzrpsbNMRRUNCAMD2555-07-53 00:46:00 Test Item Value Reference Range Interpretation Comments MCH (test code = MCH) 32.6 pg 27.0-31.0 [facility]landsVoforsbAIARVOZKCW3083-20-28 00:46:00 Test Item Value Reference Range Interpretation Comments Hct (test code = Hct) 47.3 42.0-54.0 [facility]landsKzblsgwYNZKIBYUAO0006-25-08 00:46:00 Test Item Value Reference Range Interpretation Comments Hgb (test code = Hgb) 16.2 14.0-18.0 [facility]landsCimembgZHZLPYNJIZ5017-58-25 00:46:00 Test Item Value Reference Range Interpretation Comments MCV (test code = MCV) 95.2 80.0-94.0 [facility]landsXbshzgcBPBKNFNDXY7471-49-34 00:46:00 Test Item Value Reference Range Interpretation Comments WBC (test code = WBC) 10.2 3.7-10.4 [facility]landsEqzgaiwVWUOKLMJVD1357-65-15 00:46:00 Test Item Value Reference Range Interpretation Comments RBC (test code = RBC) 4.97 4.70-6.10 [facility] [id number] 00:46:00 Test Item Value Reference Range Interpretation Comments UA Urobilinogen (test code = UA <=1.0 mg/dL 0.1-1.0 Urobilinogen) [facility] [id number] 00:46:00 Test Item Value Reference Range Interpretation Comments UA Nitrite (test code Negative (11/18/16 7:46 = UA Nitrite) PM) [facility] AND [id number] 00:46:00 Test Item Value Reference Range Interpretation Comments UA WBC (test code = 2 See_Comment [Automa ezequiel message] The UA WBC) system which ge nerated this result transmit ezequiel reference range : <=5. The reference range was not used to interpr et this result as grace l/abnormal. [facility] AND [id number] 00:46:00 Test Item Value Reference Range Interpretation Comments UA Sq Epi (test code = UA Sq Occasional /LPF Epi) [facility] AND [id number] 00:46:00 Test Item Value Reference Range Interpretation Comments UA Blood (test code = Negative (11/18/16 7:46 UA Blood) PM) [facility] AND [id number] 00:46:00 Test Item Value Reference Range Interpretation Comments UA Leuk Est (test Negative (11/18/16 7:46 code = UA Leuk Est) PM) [facility] AND [id number] 00:46:00 Test Item Value Reference Range Interpretation Comments UA Bili (test code = Negative *NA*(11/18/16 UA Bili) 7:46 PM) [facility] [id number] 00:46:00 Test Item Value Reference Range Interpretation Comments UA Protein (test code = UA Negative mg/dL Protein) [facility] [id number] 00:46:00 Test Item Value Reference Range Interpretation Comments UA pH (test code = UA pH) 5.0 5.0-8.0 [facility] [id number] 00:46:00 Test Item Value Reference Range Interpretation Comments UA Ketones (test code = UA Ketones) 20 mg/dL [facility] [id number] 00:46:00 Test Item Value Reference Range Interpretation Comments UA Glucose (test code = UA Negative mg/dL Glucose) [facility] AND [id number] 00:46:00 Test Item Value Reference Range Interpretation Comments UA Spec Grav (test code = UA Spec Grav) 1.032 [facility] [id number] 00:46:00 Test Item Value Reference Range Interpretation Comments UA Mucus (test code = UA Mucus) Many /LPF [facility] [id number] 00:46:00 Test Item Value Reference Range Interpretation Comments UA RBC (test code = 1 See_Comment [Automa ezequiel message] The UA RBC) system which ge nerated this result transmit ezequiel reference range : <=2. The reference range was not used to interpr et this result as grace l/abnormal. [facility] AND [id number] 00:46:00 Test Item Value Reference Range Interpretation Comments UA Color (test code = Yellow *NA*(11/18/16 UA Color) 7:46 PM) [facility] [id number] 00:46:00 Test Item Value Reference Range Interpretation Comments UA Turbidity (test code Slight *ABN*(11/18/16 = UA Turbidity) 7:46 PM) [facility]2017-06-19 00:46:00 Test Item Value Reference Range Interpretation Comments B/C Ratio (test code = B/C Ratio) 14 6-[address] [facility]2017-06-19 00:46:00 Test Item Value Reference Range Interpretation Comments A/G Ratio (test code = A/G Ratio) 1.2 0.7-1.[address] [facility]2017-06-19 00:46:00 Test Item Value Reference Range Interpretation Comments Globulin (test code = Globulin) 3.6 2.7-4.[address] [facility]2017-06-19 00:46:00 Test Item Value Reference Range Interpretation Comments AGAP (test code = AGAP) 11.0 10.0-20.[address] [facility]2017-06-19 00:46:00 Test Item Value Reference Range Interpretation Comments eGFR (test code = eGFR) [address] [facility]2017-06-19 00:46:00 Test Item Value Reference Range Interpretation Comments Albumin Lvl (test code = Albumin Lvl) 4.2 3.5-5.[address] [facility]2017-06-19 00:46:00 Test Item Value Reference Range Interpretation Comments Total Protein (test code = Total 7.8 6.4-8.4 Protein) [facility]2017-06-19 00:46:00 Test Item Value Reference Range Interpretation Comments ALT (test code = ALT) 22 See_Comment [Auto mated message] The system which ge nerated this result transmit ezequiel reference range : <=65. The reference range was not used to interpr et this result as grace l/abnormal. [facility]2017-06-19 00:46:00 Test Item Value Reference Range Interpretation Comments Alk Phos (test code = Alk Phos) 72 39-[address] [facility]2017-06-19 00:46:00 Test Item Value Reference Range Interpretation Comments Bili Total (test code = Bili Total) 0.6 0.2-1.[address] [facility]2017-06-19 00:46:00 Test Item Value Reference Range Interpretation Comments AST (test code = AST) 15 See_Comment [Auto mated message] The system which ge nerated this result transmit ezequiel reference range : <=37. The reference range was not used to interpr et this result as grace l/abnormal. [facility]2017-06-19 00:46:00 Test Item Value Reference Range Interpretation Comments Potassium Lvl (test code = Potassium 4.0 3.5-5.1 Lvl) [facility]2017-06-19 00:46:00 Test Item Value Reference Range Interpretation Comments Chloride Lvl (test code = Chloride Lvl) 108 95-[address] [facility]2017-06-19 00:46:00 Test Item Value Reference Range Interpretation Comments CO2 (test code = CO2) 26 24-[address] [facility]2017-06-19 00:46:00 Test Item Value Reference Range Interpretation Comments Calcium Lvl (test code = Calcium Lvl) 9.4 8.5-10.[address] [facility]2017-06-19 00:46:00 Test Item Value Reference Range Interpretation Comments Glucose Lvl (test code = Glucose Lvl) 108 70-[address] [facility]2017-06-19 00:46:00 Test Item Value Reference Range Interpretation Comments Creatinine Lvl (test code = Creatinine 0.97 0.50-1.40 Lvl) [facility]2017-06-19 00:46:00 Test Item Value Reference Range Interpretation Comments BUN (test code = BUN) 14 7-[address] [facility]2017-06-19 00:46:00 Test Item Value Reference Range Interpretation Comments Sodium Lvl (test code = Sodium Lvl) 141 135-[address] [facility]2017-06-19 00:46:00 Test Item Value Reference Range Interpretation Comments Lipase Lvl (test code = Lipase Lvl) 197 73-393 [id number] 00:46:00 Test Item Value Reference Range Interpretation Comments Lymphocytes (test code = Lymphocytes) 18.8 20.0-40.0 [facility]landsNcjawyuJLKTWTTNPQ0410-32-75 00:46:00 Test Item Value Reference Range Interpretation Comments Segs (test code = Segs) 70.6 45.0-75.0 [facility]landsIsltgbdTNXCDJCFJJ1792-57-15 00:46:00 Test Item Value Reference Range Interpretation Comments Eosinophils # (test code 0.2 See_Comment [A utomated message] The = Eosinophils #) system [facility] h generated this result tra nsmitted reference range : <=0.5. The reference r tony was not used to int erpret this result as normal/abnormal . [id number] 00:46:00 Test Item Value Reference Range Interpretation Comments Monocytes # (test code 0.8 See_Comment [Aut omated message] The = Monocytes #) system which generated this result tra nsmitted reference range : <=0.8. The reference r tony was not used to int erpret this result as normal/abnormal . [facility]landsXfiplglZMRVMFIBUX3909-56-70 00:46:00 Test Item Value Reference Range Interpretation Comments Monocytes (test code = Monocytes) 8.3 2.0-12.0 [facility]landsWoniswnOCAEZWNXCK1055-81-03 00:46:00 Test Item Value Reference Range Interpretation Comments Eosinophils (test code = 2.0 See_Comment [A utomated message] The Eosinophils) system which ge nerated this result tra nsmitted reference range : <=4.0. The reference r tony was not used to int erpret this result as normal/abnormal . [facility]lan[id number] 00:46:00 Test Item Value Reference Range Interpretation Comments Basophils (test code = 0.3 See_Comment [Aut omated message] The Basophils) system which ge nerated this result tra nsmitted reference range : <=1.0. The reference r tony was not used to int erpret this result as normal/abnormal . [facility]landsBjbjlucWLFYAMANTD5573-18-12 00:46:00 Test Item Value Reference Range Interpretation Comments Segs-Bands # (test code = Segs-Bands #) 7.2 1.5-8.1 [facility]landsJhwzpdtCLBYLJVDXE3427-63-74 00:46:00 Test Item Value Reference Range Interpretation Comments Lymphocytes # (test code = Lymphocytes 1.9 1.0-5.5 #) [facility]landsZsqsuaiSIQATCWDIQ5566-61-10 00:46:00 Test Item Value Reference Range Interpretation Comments MCHC (test code = MCHC) 34.2 32.0-36.0 [facility]landsMjhakdiCJTNGTJFFB6707-24-29 00:46:00 Test Item Value Reference Range Interpretation Comments MPV (test code = MPV) 9.8 7.4-10.4 [facility]landsAjcqhxcDCTKXPEJML4824-94-00 00:46:00 Test Item Value Reference Range Interpretation Comments Platelet (test code = Platelet) 189 133-450 [facility]landsHmzgkigDZAMFODLCW3935-53-66 00:46:00 Test Item Value Reference Range Interpretation Comments RDW (test code = RDW) 13.8 11.5-14.5 [id number] 00:46:00 Test Item Value Reference Range Interpretation Comments MCH (test code = MCH) 32.6 pg 27.0-31.0 [facility]lan[id number] 00:46:00 Test Item Value Reference Range Interpretation Comments Hct (test code = Hct) 47.3 42.0-54.0 [facility]landsVjjefopJPZOJHBWFY5090-63-74 00:46:00 Test Item Value Reference Range Interpretation Comments Hgb (test code = Hgb) 16.2 14.0-18.0 [facility][id number] 00:46:00 Test Item Value Reference Range Interpretation Comments MCV (test code = MCV) 95.2 80.0-94.0 [facility]landsSlalsoyPBOTUEPDRT1684-66-41 00:46:00 Test Item Value Reference Range Interpretation Comments WBC (test code = WBC) 10.2 3.7-10.4 [id number] 00:46:00 Test Item Value Reference Range Interpretation Comments RBC (test code = RBC) 4.97 4.70-6.10 [facility] AND [id number] 00:46:00 Test Item Value Reference Range Interpretation Comments UA Urobilinogen (test code = UA <=1.0 mg/dL 0.1-1.0 Urobilinogen) [facility] AND [id number] 00:46:00 Test Item Value Reference Range Interpretation Comments UA Nitrite (test code Negative (11/18/16 7:46 = UA Nitrite) PM) [facility] AND [id number] 00:46:00 Test Item Value Reference Range Interpretation Comments UA WBC (test code = 2 See_Comment [Automa ezequiel message] The UA WBC) system which ge nerated this result transmit ezequiel reference range : <=5. The reference range was not used to interpr et this result as grace l/abnormal. [facility] AND [id number] 00:46:00 Test Item Value Reference Range Interpretation Comments UA Sq Epi (test code = UA Sq Occasional /LPF Epi) [facility] [id number] 00:46:00 Test Item Value Reference Range Interpretation Comments UA Blood (test code = Negative (11/18/16 7:46 UA Blood) PM) [facility] [id number] 00:46:00 Test Item Value Reference Range Interpretation Comments UA Leuk Est (test Negative (11/18/16 7:46 code = UA Leuk Est) PM) [facility] AND [id number] 00:46:00 Test Item Value Reference Range Interpretation Comments UA Bili (test code = Negative *NA*(11/18/16 UA Bili) 7:46 PM) [facility] [id number] 00:46:00 Test Item Value Reference Range Interpretation Comments UA Protein (test code = UA Negative mg/dL Protein) [facility] AND [id number] 00:46:00 Test Item Value Reference Range Interpretation Comments UA pH (test code = UA pH) 5.0 5.0-8.0 [facility] AND [id number] 00:46:00 Test Item Value Reference Range Interpretation Comments UA Ketones (test code = UA Ketones) 20 mg/dL [facility] [id number] 00:46:00 Test Item Value Reference Range Interpretation Comments UA Glucose (test code = UA Negative mg/dL Glucose) [facility] [id number] 00:46:00 Test Item Value Reference Range Interpretation Comments UA Spec Grav (test code = UA Spec Grav) 1.032 [facility] [id number] 00:46:00 Test Item Value Reference Range Interpretation Comments UA Mucus (test code = UA Mucus) Many /LPF [facility] AND [id number] 00:46:00 Test Item Value Reference Range Interpretation Comments UA RBC (test code = 1 See_Comment [Automa ezequiel message] The UA RBC) system which ge nerated this result transmit ezequiel reference range : <=2. The reference range was not used to interpr et this result as grace l/abnormal. [facility] AND [id number] 00:46:00 Test Item Value Reference Range Interpretation Comments UA Color (test code = Yellow *NA*(11/18/16 UA Color) 7:46 PM) [facility] AND [id number] 00:46:00 Test Item Value Reference Range Interpretation Comments UA Turbidity (test code Slight *ABN*(11/18/16 = UA Turbidity) 7:46 PM) [facility]2017-06-19 00:46:00 Test Item Value Reference Range Interpretation Comments B/C Ratio (test code = B/C Ratio) 14 6-[address] [facility]2017-06-19 00:46:00 Test Item Value Reference Range Interpretation Comments A/G Ratio (test code = A/G Ratio) 1.2 0.7-1.[address] [facility]2017-06-19 00:46:00 Test Item Value Reference Range Interpretation Comments Globulin (test code = Globulin) 3.6 2.7-4.[address] [facility]2017-06-19 00:46:00 Test Item Value Reference Range Interpretation Comments AGAP (test code = AGAP) 11.0 10.0-20.[address] [facility]2017-06-19 00:46:00 Test Item Value Reference Range Interpretation Comments eGFR (test code = eGFR) [address] [facility]2017-06-19 00:46:00 Test Item Value Reference Range Interpretation Comments Albumin Lvl (test code = Albumin Lvl) 4.2 3.5-5.[address] [facility]2017-06-19 00:46:00 Test Item Value Reference Range Interpretation Comments Total Protein (test code = Total 7.8 6.4-8.4 Protein) [facility]2017-06-19 00:46:00 Test Item Value Reference Range Interpretation Comments ALT (test code = ALT) 22 See_Comment [Auto mated message] The system which ge nerated this result transmit ezequiel reference range : <=65. The reference range was not used to interpr et this result as grace l/abnormal. [facility]2017-06-19 00:46:00 Test Item Value Reference Range Interpretation Comments Alk Phos (test code = Alk Phos) 72 39-[address] [facility]2017-06-19 00:46:00 Test Item Value Reference Range Interpretation Comments Bili Total (test code = Bili Total) 0.6 0.2-1.[address] [facility]2017-06-19 00:46:00 Test Item Value Reference Range Interpretation Comments AST (test code = AST) 15 See_Comment [Auto mated message] The system which ge nerated this result transmit ezequiel reference range : <=37. The reference range was not used to interpr et this result as grace l/abnormal. [facility]2017-06-19 00:46:00 Test Item Value Reference Range Interpretation Comments Potassium Lvl (test code = Potassium 4.0 3.5-5.1 Lvl) [facility]2017-06-19 00:46:00 Test Item Value Reference Range Interpretation Comments Chloride Lvl (test code = Chloride Lvl) 108 95-[address] [facility]2017-06-19 00:46:00 Test Item Value Reference Range Interpretation Comments CO2 (test code = CO2) 26 24-[address] [facility]2017-06-19 00:46:00 Test Item Value Reference Range Interpretation Comments Calcium Lvl (test code = Calcium Lvl) 9.4 8.5-10.[address] [facility]2017-06-19 00:46:00 Test Item Value Reference Range Interpretation Comments Glucose Lvl (test code = Glucose Lvl) 108 70-[address] [facility]2017-06-19 00:46:00 Test Item Value Reference Range Interpretation Comments Creatinine Lvl (test code = Creatinine 0.97 0.50-1.40 Lvl) [facility]2017-06-19 00:46:00 Test Item Value Reference Range Interpretation Comments BUN (test code = BUN) 14 7-[address] [facility]2017-06-19 00:46:00 Test Item Value Reference Range Interpretation Comments Sodium Lvl (test code = Sodium Lvl) 141 135-[address] [facility]2017-06-19 00:46:00 Test Item Value Reference Range Interpretation Comments Lipase Lvl (test code = Lipase Lvl) 197 73-393 [facility]landsXaahotxIACUXBBPBG0549-02-15 00:46:00 Test Item Value Reference Range Interpretation Comments Lymphocytes (test code = Lymphocytes) 18.8 20.0-40.0 [facility]landsQkklzoeMKCUWCYYBD0242-48-32 00:46:00 Test Item Value Reference Range Interpretation Comments Segs (test code = Segs) 70.6 45.0-75.0 [facility]landsRaswpggEUAZUFHLVK3692-51-07 00:46:00 Test Item Value Reference Range Interpretation Comments Eosinophils # (test code 0.2 See_Comment [A utomated message] The = Eosinophils #) system whic h generated this result tra nsmitted reference range : <=0.5. The reference r tony was not used to int erpret this result as normal/abnormal . [facility]landsQtpuuxlYDTQBUKYBR6516-14-11 00:46:00 Test Item Value Reference Range Interpretation Comments Monocytes # (test code 0.8 See_Comment [Aut omated message] The = Monocytes #) system which generated this result tra nsmitted reference range : <=0.8. The reference r tony was not used to int erpret this result as normal/abnormal . [facility]landsIguhpfpKJTSRIJEOZ7210-31-89 00:46:00 Test Item Value Reference Range Interpretation Comments Monocytes (test code = Monocytes) 8.3 2.0-12.0 [facility]landsKztyqvsJRKCBHXURR2112-01-46 00:46:00 Test Item Value Reference Range Interpretation Comments Eosinophils (test code = 2.0 See_Comment [A utomated message] The Eosinophils) system which ge nerated this result tra nsmitted reference range : <=4.0. The reference r tony was not used to int erpret this result as normal/abnormal . [facility]landsVytcurwJHSUNLNOIQ9608-60-53 00:46:00 Test Item Value Reference Range Interpretation Comments Basophils (test code = 0.3 See_Comment [Aut omated message] The Basophils) system which ge nerated this result tra nsmitted reference range : <=1.0. The reference r tony was not used to int erpret this result as normal/abnormal . [facility]lan[id number] 00:46:00 Test Item Value Reference Range Interpretation Comments Segs-Bands # (test code = Segs-Bands #) 7.2 1.5-8.1 [facility]landsHturrhjKMLZGUGJUJ2729-63-20 00:46:00 Test Item Value Reference Range Interpretation Comments Lymphocytes # (test code = Lymphocytes 1.9 1.0-5.5 #) [facility]landsZgvvvtvPLZYVLVQVZ8410-22-76 00:46:00 Test Item Value Reference Range Interpretation Comments MCHC (test code = MCHC) 34.2 32.0-36.0 [facility]KqwhsozRFAGNAETGW0876-46-23 00:46:00 Test Item Value Reference Range Interpretation Comments MPV (test code = MPV) 9.8 7.4-10.4 [facility]landsAqxzhtdATMCUNDKQD5695-87-09 00:46:00 Test Item Value Reference Range Interpretation Comments Platelet (test code = Platelet) 189 133-450 [facility]landsYdzsgqpCKNOIUCXEL2057-43-13 00:46:00 Test Item Value Reference Range Interpretation Comments RDW (test code = RDW) 13.8 11.5-14.5 [facility]landsNouzdmzYETNSZSNVQ1296-02-26 00:46:00 Test Item Value Reference Range Interpretation Comments MCH (test code = MCH) 32.6 pg 27.0-31.0 [facility]landsEodrzvjGEIUYWGVBY9428-83-50 00:46:00 Test Item Value Reference Range Interpretation Comments Hct (test code = Hct) 47.3 42.0-54.0 [facility]landsAlltdokRIMPPYLLJR2904-55-01 00:46:00 Test Item Value Reference Range Interpretation Comments Hgb (test code = Hgb) 16.2 14.0-18.0 [facility]landsQkfcvzdCGQACAIUMY7919-11-05 00:46:00 Test Item Value Reference Range Interpretation Comments MCV (test code = MCV) 95.2 80.0-94.0 [facility]landsDabjeurAAAGYCUNOK7873-76-38 00:46:00 Test Item Value Reference Range Interpretation Comments WBC (test code = WBC) 10.2 3.7-10.4 [facility]landsItnulejINYOIPMLGT1604-32-99 00:46:00 Test Item Value Reference Range Interpretation Comments RBC (test code = RBC) 4.97 4.70-6.10 [facility] AND [id number] 00:46:00 Test Item Value Reference Range Interpretation Comments UA Urobilinogen (test code = UA <=1.0 mg/dL 0.1-1.0 Urobilinogen) [facility] AND [id number] 00:46:00 Test Item Value Reference Range Interpretation Comments UA Nitrite (test code Negative (11/18/16 7:46 = UA Nitrite) PM) [facility] AND [id number] 00:46:00 Test Item Value Reference Range Interpretation Comments UA WBC (test code = 2 See_Comment [Automa ezequiel message] The UA WBC) system which ge nerated this result transmit ezequiel reference range : <=5. The reference range was not used to interpr et this result as grace l/abnormal. [facility] AND [id number] 00:46:00 Test Item Value Reference Range Interpretation Comments UA Sq Epi (test code = UA Sq Occasional /LPF Epi) [facility] AND [id number] 00:46:00 Test Item Value Reference Range Interpretation Comments UA Blood (test code = Negative (11/18/16 7:46 UA Blood) PM) [facility] AND [id number] 00:46:00 Test Item Value Reference Range Interpretation Comments UA Leuk Est (test Negative (11/18/16 7:46 code = UA Leuk Est) PM) [facility] AND [id number] 00:46:00 Test Item Value Reference Range Interpretation Comments UA Bili (test code = Negative *NA*(11/18/16 UA Bili) 7:46 PM) [facility] AND [id number] 00:46:00 Test Item Value Reference Range Interpretation Comments UA Protein (test code = UA Negative mg/dL Protein) [facility] AND [id number] 00:46:00 Test Item Value Reference Range Interpretation Comments UA pH (test code = UA pH) 5.0 5.0-8.0 [facility] AND [id number] 00:46:00 Test Item Value Reference Range Interpretation Comments UA Ketones (test code = UA Ketones) 20 mg/dL [facility] AND [id number] 00:46:00 Test Item Value Reference Range Interpretation Comments UA Glucose (test code = UA Negative mg/dL Glucose) [facility] AND [id number] 00:46:00 Test Item Value Reference Range Interpretation Comments UA Spec Grav (test code = UA Spec Grav) 1.032 [facility] AND [id number] 00:46:00 Test Item Value Reference Range Interpretation Comments UA Mucus (test code = UA Mucus) Many /LPF [facility] AND [id number] 00:46:00 Test Item Value Reference Range Interpretation Comments UA RBC (test code = 1 See_Comment [Automa ezequiel message] The UA RBC) system which ge nerated this result transmit ezequiel reference range : <=2. The reference range was not used to interpr et this result as grace l/abnormal. [facility] AND [id number] 00:46:00 Test Item Value Reference Range Interpretation Comments UA Color (test code = Yellow *NA*(11/18/16 UA Color) 7:46 PM) [facility] AND [id number] 00:46:00 Test Item Value Reference Range Interpretation Comments UA Turbidity (test code Slight *ABN*(11/18/16 = UA Turbidity) 7:46 PM) [facility] [id number] 00:46:00 Test Item Value Reference Range Interpretation Comments B/C Ratio (test code = B/C Ratio) 14 6-[address] [facility]2017-06-19 00:46:00 Test Item Value Reference Range Interpretation Comments A/G Ratio (test code = A/G Ratio) 1.2 0.7-1.6 [facility] [id number] 00:46:00 Test Item Value Reference Range Interpretation Comments Globulin (test code = Globulin) 3.6 2.7-4.[address] [facility]2017-06-19 00:46:00 Test Item Value Reference Range Interpretation Comments AGAP (test code = AGAP) 11.0 10.0-20.[address] [facility]2017-06-19 00:46:00 Test Item Value Reference Range Interpretation Comments eGFR (test code = eGFR) [address] [facility]2017-06-19 00:46:00 Test Item Value Reference Range Interpretation Comments Albumin Lvl (test code = Albumin Lvl) 4.2 3.5-5.[address] [facility]2017-06-19 00:46:00 Test Item Value Reference Range Interpretation Comments Total Protein (test code = Total 7.8 6.4-8.4 Protein) [facility]2017-06-19 00:46:00 Test Item Value Reference Range Interpretation Comments ALT (test code = ALT) 22 See_Comment [Auto mated message] The system which ge nerated this result transmit ezequiel reference range : <=65. The reference range was not used to interpr et this result as grace l/abnormal. [facility]2017-06-19 00:46:00 Test Item Value Reference Range Interpretation Comments Alk Phos (test code = Alk Phos) 72 39-[address] [facility]2017-06-19 00:46:00 Test Item Value Reference Range Interpretation Comments Bili Total (test code = Bili Total) 0.6 0.2-1.[address] [facility]2017-06-19 00:46:00 Test Item Value Reference Range Interpretation Comments AST (test code = AST) 15 See_Comment [Auto mated message] The system which ge nerated this result transmit ezequiel reference range : <=37. The reference range was not used to interpr et this result as grace l/abnormal. [facility]2017-06-19 00:46:00 Test Item Value Reference Range Interpretation Comments Potassium Lvl (test code = Potassium 4.0 3.5-5.1 Lvl) [facility]2017-06-19 00:46:00 Test Item Value Reference Range Interpretation Comments Chloride Lvl (test code = Chloride Lvl) 108 95-[address] [facility]2017-06-19 00:46:00 Test Item Value Reference Range Interpretation Comments CO2 (test code = CO2) 26 24-[address] [facility]2017-06-19 00:46:00 Test Item Value Reference Range Interpretation Comments Calcium Lvl (test code = Calcium Lvl) 9.4 8.5-10.[address] [facility]2017-06-19 00:46:00 Test Item Value Reference Range Interpretation Comments Glucose Lvl (test code = Glucose Lvl) 108 70-[address] [facility]2017-06-19 00:46:00 Test Item Value Reference Range Interpretation Comments Creatinine Lvl (test code = Creatinine 0.97 0.50-1.40 Lvl) [facility]2017-06-19 00:46:00 Test Item Value Reference Range Interpretation Comments BUN (test code = BUN) 14 7-[address] [facility]2017-06-19 00:46:00 Test Item Value Reference Range Interpretation Comments Sodium Lvl (test code = Sodium Lvl) 141 135-[address] [facility]2017-06-19 00:46:00 Test Item Value Reference Range Interpretation Comments Lipase Lvl (test code = Lipase Lvl) 197 73-393 [facility]LqpyjlwJKHUWIOVOG6452-57-37 00:46:00 Test Item Value Reference Range Interpretation Comments Lymphocytes (test code = Lymphocytes) 18.8 20.0-40.0 [facility]VomzkmpKLTVZJKESI8147-65-02 00:46:00 Test Item Value Reference Range Interpretation Comments Segs (test code = Segs) 70.6 45.0-75.0 [facility]landsBybtzkhUUZJCYGZXZ9231-72-29 00:46:00 Test Item Value Reference Range Interpretation Comments Eosinophils # (test code 0.2 See_Comment [A utomated message] The = Eosinophils #) system whic h generated this result tra nsmitted reference range : <=0.5. The reference r tony was not used to int erpret this result as normal/abnormal . [facility]landsAudtcmxZVRIFWVXYG7490-79-99 00:46:00 Test Item Value Reference Range Interpretation Comments Monocytes # (test code 0.8 See_Comment [Aut omated message] The = Monocytes #) system which generated this result tra nsmitted reference range : <=0.8. The reference r tony was not used to int erpret this result as normal/abnormal . [facility]VopshlkFLPEKYPXXS7361-32-22 00:46:00 Test Item Value Reference Range Interpretation Comments Monocytes (test code = Monocytes) 8.3 2.0-12.0 [facility]landsIikrcjgIBTDEDNHDW5585-30-84 00:46:00 Test Item Value Reference Range Interpretation Comments Eosinophils (test code = 2.0 See_Comment [A utomated message] The Eosinophils) system which ge nerated this result tra nsmitted reference range : <=4.0. The reference r tony was not used to int erpret this result as normal/abnormal . [facility]QnwibnjJPUAXMTFDC4493-13-83 00:46:00 Test Item Value Reference Range Interpretation Comments Basophils (test code = 0.3 See_Comment [Aut omated message] The Basophils) system which ge nerated this result tra nsmitted reference range : <=1.0. The reference r tony was not used to int erpret this result as normal/abnormal . [facility]MbdhurhOKGWECMBLA6545-91-62 00:46:00 Test Item Value Reference Range Interpretation Comments Segs-Bands # (test code = Segs-Bands #) 7.2 1.5-8.1 [facility]landsMcblozmKSKJQIMZPV8487-19-69 00:46:00 Test Item Value Reference Range Interpretation Comments Lymphocytes # (test code = Lymphocytes 1.9 1.0-5.5 #) [facility]VcbpiqeIACGCOWFID6737-20-35 00:46:00 Test Item Value Reference Range Interpretation Comments MCHC (test code = MCHC) 34.2 32.0-36.0 [facility]landsDjjkshzSJISHRPYMG9048-87-14 00:46:00 Test Item Value Reference Range Interpretation Comments MPV (test code = MPV) 9.8 7.4-10.4 [facility]landsLqazpdpEPFJCEMUTX7165-76-71 00:46:00 Test Item Value Reference Range Interpretation Comments Platelet (test code = Platelet) 189 133-450 [facility]landsVxitlymOISJLZQIRK9292-85-42 00:46:00 Test Item Value Reference Range Interpretation Comments RDW (test code = RDW) 13.8 11.5-14.5 [facility]landsPxdflluFMKQGJPOTG5252-23-42 00:46:00 Test Item Value Reference Range Interpretation Comments MCH (test code = MCH) 32.6 pg 27.0-31.0 [facility]landsUxcfcpiAWJUJKCQIY5744-17-97 00:46:00 Test Item Value Reference Range Interpretation Comments Hct (test code = Hct) 47.3 42.0-54.0 [facility]landsFeyspaxDSJOLAORGL7091-23-68 00:46:00 Test Item Value Reference Range Interpretation Comments Hgb (test code = Hgb) 16.2 14.0-18.0 [facility]lan[id number] 00:46:00 Test Item Value Reference Range Interpretation Comments MCV (test code = MCV) 95.2 80.0-94.0 [facility]landsFmzridwVUDKREKRLP6880-27-43 00:46:00 Test Item Value Reference Range Interpretation Comments WBC (test code = WBC) 10.2 3.7-10.4 [facility]landsHeoxoebYBHLVKYZHQ4353-48-16 00:46:00 Test Item Value Reference Range Interpretation Comments RBC (test code = RBC) 4.97 4.70-6.10 [facility] AND [id number] 00:46:00 Test Item Value Reference Range Interpretation Comments UA Urobilinogen (test code = UA <=1.0 mg/dL 0.1-1.0 Urobilinogen) [facility] AND [id number] 00:46:00 Test Item Value Reference Range Interpretation Comments UA Nitrite (test code Negative (11/18/16 7:46 = UA Nitrite) PM) [facility] AND [id number] 00:46:00 Test Item Value Reference Range Interpretation Comments UA WBC (test code = 2 See_Comment [Automa ezequiel message] The UA WBC) system which ge nerated this result transmit ezequiel reference range : <=5. The reference range was not used to interpr et this result as grace l/abnormal. [facility] AND [id number] 00:46:00 Test Item Value Reference Range Interpretation Comments UA Sq Epi (test code = UA Sq Occasional /LPF Epi) [facility] AND [id number] 00:46:00 Test Item Value Reference Range Interpretation Comments UA Blood (test code = Negative (11/18/16 7:46 UA Blood) PM) [facility] AND [id number] 00:46:00 Test Item Value Reference Range Interpretation Comments UA Leuk Est (test Negative (11/18/16 7:46 code = UA Leuk Est) PM) [facility] AND [id number] 00:46:00 Test Item Value Reference Range Interpretation Comments UA Bili (test code = Negative *NA*(11/18/16 UA Bili) 7:46 PM) [facility] AND [id number] 00:46:00 Test Item Value Reference Range Interpretation Comments UA Protein (test code = UA Negative mg/dL Protein) [facility] AND [id number] 00:46:00 Test Item Value Reference Range Interpretation Comments UA pH (test code = UA pH) 5.0 5.0-8.0 [facility] AND [id number] 00:46:00 Test Item Value Reference Range Interpretation Comments UA Ketones (test code = UA Ketones) 20 mg/dL [facility] AND [id number] 00:46:00 Test Item Value Reference Range Interpretation Comments UA Glucose (test code = UA Negative mg/dL Glucose) [facility] AND [id number] 00:46:00 Test Item Value Reference Range Interpretation Comments UA Spec Grav (test code = UA Spec Grav) 1.032 [facility] AND [id number] 00:46:00 Test Item Value Reference Range Interpretation Comments UA Mucus (test code = UA Mucus) Many /LPF [facility] AND [id number] 00:46:00 Test Item Value Reference Range Interpretation Comments UA RBC (test code = 1 See_Comment [Automa ezequiel message] The UA RBC) system which ge nerated this result transmit ezequiel reference range : <=2. The reference range was not used to interpr et this result as grace l/abnormal. [facility] AND [id number] 00:46:00 Test Item Value Reference Range Interpretation Comments UA Color (test code = Yellow *NA*(11/18/16 UA Color) 7:46 PM) [facility] AND [id number] 00:46:00 Test Item Value Reference Range Interpretation Comments UA Turbidity (test code Slight *ABN*(11/18/16 = UA Turbidity) 7:46 PM) [facility] *WW*2016-10-23 14:38:00 Test Item Value [...] 60A) 100 IU/L 73-393 CBC (INCLUDES AUTOMATED DIFFERENTIAL)*[id number] 14:19:00 Test Item Value Reference Range Interpretation [...] *WW*2016-10-23 13:51:45Portable AP chest, 1 viewLocation Code: [id number] HISTORY: Abdominal painCOMPARISON: 07/14/2013COMMEN T: The lungs are clear and well inflated. The costophrenic angles are sharp. Thecardiomediastinal silhouette is unremarkable. The bones are intact.IMPRESSION: Stable chest with no acute abnormality.CT ABDOMEN AND PELVIS WITHOUT CONTRAST *WW*2016-10-23 13:50:29CT abdomen and pelvis without contrastLocation Code: [id number] HISTORY: Abdominal painCOMPARISON: 03/2017Technique: Helical CT of [...] no acute abnormality.CT ABDOMEN AND PELVIS WITH [id number] 21:28:44CT abdomen and pelvis with contrastLocation Code: [id number] HISTORY: Abdominal painCOMPARISON: 07/18/13, 07/13/13Technique: Helical CT [...] No acute intra-abdominal or pelvic abnormality.DRUGS OF [id number] 21:03:00 Test Item Value Reference Range Interpretation [...] 200 ng/mL Opiates 2000 ng/mL URINALYSIS WITH [id number] 20:50:00 Test Item Value Reference Range Interpretation [...] code = USPERM) /HPF NONE AMYLASE AND [id number] 20:44:00 Test Item Value Reference Range Interpretation Comments AMYLASE (test code = 10A) 46 U/L 28-100 LIPASE (test code = 60A) 128 IU/L 73-393 COMPREHENSIVE METABOLIC [id number] 20:44:00 Test Item Value Reference Range Interpretation [...] MORPH (test code = RBCMOR) NORMAL CARDIAC [id number] 10:21:00 Test Item Value Reference Range Interpretation Comments Total CK (test code = Total CK) 274 12-191 [facility] HospitalIclrchnUMWTNRRKMJDJ3079-75-05 10:21:00 Test Item Value Reference Range Interpretation Comments AGAP (test code = AGAP) 14.0 10.0-20.0 [facility] HospitalXmdhdrvUYYDHNOBDMMT6402-30-50 10:21:00 Test Item Value Reference Range Interpretation Comments B/C Ratio (test code = B/C Ratio) 10 6-25 [facility] HospitalUmvntqcWHZDOFRLXQDZ9785-61-74 10:21:00 Test Item Value Reference Range Interpretation Comments Globulin (test code = Globulin) 3.5 2.0-4.0 [facility] HospitalGuzdjjbRUCUVFZNAXCQ0401-91-94 10:21:00 Test Item Value Reference Range Interpretation Comments A/G Ratio (test code = A/G Ratio) 1.3 0.7-1.6 [facility] HospitalIaodpisXFVTDALRCCKL4750-22-18 10:21:00 Test Item Value Reference Range Interpretation Comments Bili Total (test code = Bili Total) 0.4 0.2-1.3 [facility] HospitalBcgdmrrPTXQOEWJLTMA9672-67-41 10:21:00 Test Item Value Reference Range Interpretation Comments eGFR (test code = eGFR) 96 [facility] HospitalSpghxxnIWDACZQEVVLK7250-48-56 10:21:00 Test Item Value Reference Range Interpretation Comments Sodium Lvl (test code = Sodium Lvl) 140 135-145 [facility] HospitalPvpcixiCCLRYDIVARRA1005-41-75 10:21:00 Test Item Value Reference Range Interpretation Comments CO2 (test code = CO2) 24 24-32 [facility] HospitalEnilaneEPSDTXHBTSHH8536-26-29 10:21:00 Test Item Value Reference Range Interpretation Comments Calcium Lvl (test code = Calcium Lvl) 8.5 8.5-10.5 [facility] HospitalOvqlatjWMWAORHVIVMC9828-41-01 10:21:00 Test Item Value Reference Range Interpretation Comments AST (test code = AST) 13 See_Comment [Auto mated message] The system which ge nerated this result transmit ezequiel reference range : <=37. The reference range was not used to interpr et this result as grace l/abnormal. [facility] HospitalVeapmpySWPKGSMWBVVV4050-52-20 10:21:00 Test Item Value Reference Range Interpretation Comments Potassium Lvl (test code = Potassium 4.0 3.5-5.1 Lvl) [facility] HospitalGumqrvgPEKVSXPGOWFF1370-79-04 10:21:00 Test Item Value Reference Range Interpretation Comments Chloride Lvl (test code = Chloride Lvl) 106 95-109 [facility] HospitalInbgutbCXOITIQNYZRO0012-44-65 10:21:00 Test Item Value Reference Range Interpretation Comments Total Protein (test code = Total 7.9 6.4-8.4 Protein) [facility] HospitalTdzgnmjHQCKLGSDJGPC7437-82-35 10:21:00 Test Item Value Reference Range Interpretation Comments Albumin Lvl (test code = Albumin Lvl) 4.4 3.5-5.0 [facility] HospitalZuacbhzIUFRENGXNZPE7430-59-04 10:21:00 Test Item Value Reference Range Interpretation Comments ALT (test code = ALT) 29 See_Comment [Auto mated message] The system which ge nerated this result transmit ezequiel reference range : <=65. The reference range was not used to interpr et this result as grace l/abnormal. [facility] HospitalCnmarrgYPYUJDHWGXEZ6176-33-93 10:21:00 Test Item Value Reference Range Interpretation Comments Alk Phos (test code = Alk Phos) 66 39-136 [facility] HospitalTzpqrqrQQCVDIQFSCYP2201-45-10 10:21:00 Test Item Value Reference Range Interpretation Comments Creatinine Lvl (test code = Creatinine 1.06 0.50-1.40 Lvl) [facility] HospitalDujwlujPJSAUPAMOIMU6177-87-28 10:21:00 Test Item Value Reference Range Interpretation Comments BUN (test code = BUN) 11 7-22 [facility]KjmafmbUZKGEDPYGBHG9048-55-48 10:21:00 Test Item Value Reference Range Interpretation Comments Glucose Lvl (test code = Glucose Lvl) 96 70-99 [facility] HospitalBzkaewwYYZRQLHHIL1915-64-65 10:21:00 Test Item Value Reference Range Interpretation Comments INR (test code = INR) 1.03 0.85-1.17 [facility]KmslbrkNWGOTYJWRQ2283-59-00 10:21:00 Test Item Value Reference Range Interpretation Comments PT (test code = PT) 13.8 s 12.0-14.7 [facility]CdfkxyvNECMDIRJON5583-49-50 10:21:00 Test Item Value Reference Range Interpretation Comments WBC (test code = WBC) 13.5 3.7-10.4 [facility]landsRpmnsriWBDHSLIIGM1443-55-13 10:21:00 Test Item Value Reference Range Interpretation Comments RBC (test code = RBC) 5.03 4.70-6.10 [facility]VbirjjhFYEXFZGDVK7555-88-51 10:21:00 Test Item Value Reference Range Interpretation Comments Hgb (test code = Hgb) 15.5 14.0-18.0 [facility]landsHbmtmnhDWPISDDZAC8194-63-99 10:21:00 Test Item Value Reference Range Interpretation Comments Hct (test code = Hct) 46.2 42.0-54.0 [facility]landsDkujlakHQPQSOPWJQ5038-21-54 10:21:00 Test Item Value Reference Range Interpretation Comments MPV (test code = MPV) 9.9 7.4-10.4 [facility]landsBjixtaqFHNJBVFFHK4080-50-95 10:21:00 Test Item Value Reference Range Interpretation Comments RDW (test code = RDW) 13.3 11.5-14.5 [facility]landsHtwswcwJYWFEAMIWO2606-60-05 10:21:00 Test Item Value Reference Range Interpretation Comments MCHC (test code = MCHC) 33.5 32.0-36.0 [facility]landsUaicsgzSQQTUCQKLV9133-45-03 10:21:00 Test Item Value Reference Range Interpretation Comments Platelet (test code = Platelet) 223 133-450 [facility]landsGyfhmljCOGWKVNAMS9639-88-62 10:21:00 Test Item Value Reference Range Interpretation Comments MCH (test code = MCH) 30.8 pg 27.0-31.0 [facility]landsAqwgllhXEMMEXRBKA1908-38-66 10:21:00 Test Item Value Reference Range Interpretation Comments MCV (test code = MCV) 91.9 80.0-94.0 [facility] [place]AzkybadEKAUIKCCEK8259-33-64 10:21:00 Test Item Value Reference Range Interpretation Comments Lymphocytes # (test code = Lymphocytes 2.3 1.0-5.5 #) [facility]landsGregqcqFWJMORNJLN3510-32-29 10:21:00 Test Item Value Reference Range Interpretation Comments Basophils (test code = 0.4 See_Comment [Aut omated message] The Basophils) system which ge nerated this result tra nsmitted reference range : <=1.0. The reference r tony was not used to int erpret this result as normal/abnormal . [facility]landsAnkisuzBXCGTQUYQY7812-96-69 10:21:00 Test Item Value Reference Range Interpretation Comments Monocytes # (test code 0.5 See_Comment [Aut omated message] The = Monocytes #) system which generated this result tra nsmitted reference range : <=0.8. The reference r tony was not used to int erpret this result as normal/abnormal . [facility]landsXqliuzfXACZGPHSRH8361-88-51 10:21:00 Test Item Value Reference Range Interpretation Comments Segs-Bands # (test code = Segs-Bands #) 10.4 1.5-8.1 [facility]landsQcgvrcaHYLJLRSXEM9126-27-57 10:21:00 Test Item Value Reference Range Interpretation Comments Monocytes (test code = Monocytes) 3.4 2.0-12.0 [facility]landsFdzdkqwALEKLTPYLE0503-57-15 10:21:00 Test Item Value Reference Range Interpretation Comments Lymphocytes (test code = Lymphocytes) 17.0 20.0-40.0 [facility]landsBbsjazoFNCNNWKFTW6514-97-95 10:21:00 Test Item Value Reference Range Interpretation Comments Eosinophils (test code = 2.3 See_Comment [A utomated message] The Eosinophils) system which ge nerated this result tra nsmitted reference range : <=4.0. The reference r tony was not used to int erpret this result as normal/abnormal . [facility]landsLqwzjwnSSJZFDMZIM7604-02-03 10:21:00 Test Item Value Reference Range Interpretation Comments Segs (test code = Segs) 76.9 45.0-75.0 [facility]landsNeqsdmxSBGXVNKPKI2336-18-65 10:21:00 Test Item Value Reference Range Interpretation Comments Eosinophils # (test code 0.3 See_Comment [A utomated message] The = Eosinophils #) system whic h generated this result tra nsmitted reference range : <=0.5. The reference r tony was not used to int erpret this result as normal/abnormal . [facility]PPDSSYGLAM4834-[facility]-32 10:21:00 Test Item Value Reference Range Interpretation Comments Etoh (%) (test code = Etoh (%)) 0.141 [facility]KgtctbvHUAVYNYUFV4117-03-79 10:21:00 Test Item Value Reference Range Interpretation Comments Ethanol Lvl (test code = Ethanol Lvl) 141 [facility] GSLIEGU9985-07-84 10:21:00 Test Item Value Reference Range Interpretation Comments Total CK (test code = Total CK) 274 12-191 [facility] HospitalGbipwruUBYBZBWBDBJB9366-06-60 10:21:00 Test Item Value Reference Range Interpretation Comments AGAP (test code = AGAP) 14.0 10.0-20.0 [facility] HospitalSmmnbmsYSQLMYVASBRV6055-54-49 10:21:00 Test Item Value Reference Range Interpretation Comments B/C Ratio (test code = B/C Ratio) 10 6-25 [facility] HospitalNvylqywBATPCPBQTHOR3236-40-75 10:21:00 Test Item Value Reference Range Interpretation Comments Globulin (test code = Globulin) 3.5 2.0-4.0 [facility] HospitalSvwfdcuQKEIVBBEGMCV7753-91-90 10:21:00 Test Item Value Reference Range Interpretation Comments A/G Ratio (test code = A/G Ratio) 1.3 0.7-1.6 [facility] HospitalEbnsrkpVSHEIWODPHLX8063-61-17 10:21:00 Test Item Value Reference Range Interpretation Comments Bili Total (test code = Bili Total) 0.4 0.2-1.3 [facility] HospitalFkdcaktNYKQAPSWSLAB1297-39-77 10:21:00 Test Item Value Reference Range Interpretation Comments eGFR (test code = eGFR) 96 [facility] HospitalGpuhrreTONIIZURGTBY8816-01-50 10:21:00 Test Item Value Reference Range Interpretation Comments Sodium Lvl (test code = Sodium Lvl) 140 135-145 [facility] HospitalGjvxwqcAMICMSHRWCPU0241-59-58 10:21:00 Test Item Value Reference Range Interpretation Comments CO2 (test code = CO2) 24 24-32 [facility] HospitalSfqucolXRYRXFDVZMWX1140-59-98 10:21:00 Test Item Value Reference Range Interpretation Comments Calcium Lvl (test code = Calcium Lvl) 8.5 8.5-10.5 [facility] HospitalEmkpwtnVSWIQPPAWHNP3101-05-14 10:21:00 Test Item Value Reference Range Interpretation Comments AST (test code = AST) 13 See_Comment [Auto mated message] The system which ge nerated this result transmit ezequiel reference range : <=37. The reference range was not used to interpr et this result as grace l/abnormal. [facility] HospitalDkaydvnWRIOWGJDAXIV0848-97-93 10:21:00 Test Item Value Reference Range Interpretation Comments Potassium Lvl (test code = Potassium 4.0 3.5-5.1 Lvl) [facility] HospitalTvpzlpwJXXMDAMCTRNO9710-42-58 10:21:00 Test Item Value Reference Range Interpretation Comments Chloride Lvl (test code = Chloride Lvl) 106 95-109 [facility] HospitalPdktliuAISULCZZWAPP5068-82-89 10:21:00 Test Item Value Reference Range Interpretation Comments Total Protein (test code = Total 7.9 6.4-8.4 Protein) [facility] HospitalPeylfxiXOTOQHELCRKM6599-17-24 10:21:00 Test Item Value Reference Range Interpretation Comments Albumin Lvl (test code = Albumin Lvl) 4.4 3.5-5.0 [facility] HospitalPbcakogUWQJAWPXUKIG7020-96-98 10:21:00 Test Item Value Reference Range Interpretation Comments ALT (test code = ALT) 29 See_Comment [Auto mated message] The system which ge nerated this result transmit ezequiel reference range : <=65. The reference range was not used to interpr et this result as grace l/abnormal. [facility] HospitalEofnaaeHXOXGTTPZFDS5988-76-43 10:21:00 Test Item Value Reference Range Interpretation Comments Alk Phos (test code = Alk Phos) 66 39-136 [facility] HospitalHlwqvreMTSSEZCFKIOK9725-90-20 10:21:00 Test Item Value Reference Range Interpretation Comments Creatinine Lvl (test code = Creatinine 1.06 0.50-1.40 Lvl) [facility] HospitalUmmlbvnJLBNEZDWCETT4137-01-54 10:21:00 Test Item Value Reference Range Interpretation Comments BUN (test code = BUN) 11 7-22 [facility]YktydtiCJDKLUUVCIYM6669-81-40 10:21:00 Test Item Value Reference Range Interpretation Comments Glucose Lvl (test code = Glucose Lvl) 96 70-99 [facility]KhydwunFXVRBGABBP5244-81-94 10:21:00 Test Item Value Reference Range Interpretation Comments INR (test code = INR) 1.03 0.85-1.17 [facility]landsIbtsysmVGAZKRFDUO0695-02-71 10:21:00 Test Item Value Reference Range Interpretation Comments PT (test code = PT) 13.8 s 12.0-14.7 [facility]landsCmgpgyuXFNEEPHBQX2957-37-69 10:21:00 Test Item Value Reference Range Interpretation Comments WBC (test code = WBC) 13.5 3.7-10.4 [facility]landsVxxthkpSRLOHWGKCP5009-01-70 10:21:00 Test Item Value Reference Range Interpretation Comments RBC (test code = RBC) 5.03 4.70-6.10 [facility]landsDmwqxtjPWVHOEVSQT3202-07-04 10:21:00 Test Item Value Reference Range Interpretation Comments Hgb (test code = Hgb) 15.5 14.0-18.0 [facility]landsIvkhhdtLSPNETLBIM9638-34-90 10:21:00 Test Item Value Reference Range Interpretation Comments Hct (test code = Hct) 46.2 42.0-54.0 [facility]landsGggywqeXZRIGIVNGK7210-44-74 10:21:00 Test Item Value Reference Range Interpretation Comments MPV (test code = MPV) 9.9 7.4-10.4 [facility]landsJajfgfcRFCDEOHOZJ4752-68-80 10:21:00 Test Item Value Reference Range Interpretation Comments RDW (test code = RDW) 13.3 11.5-14.5 [facility]landsAajxzjsHSRNDSNSWO0511-38-40 10:21:00 Test Item Value Reference Range Interpretation Comments MCHC (test code = MCHC) 33.5 32.0-36.0 [facility]landsTzgvpmgMXYPHTJVGU6878-53-70 10:21:00 Test Item Value Reference Range Interpretation Comments Platelet (test code = Platelet) 223 133-450 [facility]landsNgzgwiuSIFVGFILVN2089-51-32 10:21:00 Test Item Value Reference Range Interpretation Comments MCH (test code = MCH) 30.8 pg 27.0-31.0 [facility]landsAdwoejxGXVZAJYQSH7603-25-24 10:21:00 Test Item Value Reference Range Interpretation Comments MCV (test code = MCV) 91.9 80.0-94.0 [facility]landsFejecvpHESULARZZP1784-03-28 10:21:00 Test Item Value Reference Range Interpretation Comments Lymphocytes # (test code = Lymphocytes 2.3 1.0-5.5 #) [facility]landsKtefctiVJOSUJBEEA7249-44-74 10:21:00 Test Item Value Reference Range Interpretation Comments Basophils (test code = 0.4 See_Comment [Aut omated message] The Basophils) system which ge nerated this result tra nsmitted reference range : <=1.0. The reference r tony was not used to int erpret this result as normal/abnormal . [facility]landsNyjhjpzFUDPMLWISF8525-12-71 10:21:00 Test Item Value Reference Range Interpretation Comments Monocytes # (test code 0.5 See_Comment [Aut omated message] The = Monocytes #) system which generated this result tra nsmitted reference range : <=0.8. The reference r tony was not used to int erpret this result as normal/abnormal . [facility]landsYintfeaFZZIUJYWDM3823-70-87 10:21:00 Test Item Value Reference Range Interpretation Comments Segs-Bands # (test code = Segs-Bands #) 10.4 1.5-8.1 [facility]landsEqlmmbzUCXAGQQHHM1305-46-15 10:21:00 Test Item Value Reference Range Interpretation Comments Monocytes (test code = Monocytes) 3.4 2.0-12.0 [facility]landsBsvyzvePTZPBWKZRN5955-64-30 10:21:00 Test Item Value Reference Range Interpretation Comments Lymphocytes (test code = Lymphocytes) 17.0 20.0-40.0 [facility]landsSqkeipjRKRBXFXJTX0498-70-65 10:21:00 Test Item Value Reference Range Interpretation Comments Eosinophils (test code = 2.3 See_Comment [A utomated message] The Eosinophils) system which ge nerated this result tra nsmitted reference range : <=4.0. The reference r tony was not used to int erpret this result as normal/abnormal . [facility]landsShthegiEBHQQBKITM5327-69-77 10:21:00 Test Item Value Reference Range Interpretation Comments Segs (test code = Segs) 76.9 45.0-75.0 [facility]landsEsmfqcyKMGFUUOJXA3187-77-18 10:21:00 Test Item Value Reference Range Interpretation Comments Eosinophils # (test code 0.3 See_Comment [A utomated message] The = Eosinophils #) system whic h generated this result tra nsmitted reference range : <=0.5. The reference r tony was not used to int erpret this result as normal/abnormal . [facility]KlpzrfiYHWPMTRLDJ6166-06-85 10:21:00 Test Item Value Reference Range Interpretation Comments Etoh (%) (test code = Etoh (%)) 0.141 [facility] HospitalUledowhLCLZIDEART5005-28-05 10:21:00 Test Item Value Reference Range Interpretation Comments Ethanol Lvl (test code = Ethanol Lvl) 141 [facility] HospitalCARDIAC SNWEEME8364-86-14 10:21:00 Test Item Value Reference Range Interpretation Comments Total CK (test code = Total CK) 274 12-191 [facility] HospitalPzffeztZIUMHIEMSULQ0951-68-16 10:21:00 Test Item Value Reference Range Interpretation Comments AGAP (test code = AGAP) 14.0 10.0-20.0 [facility] CampusOzrixnsTLDFXPYDLUJW0191-96-87 10:21:00 Test Item Value Reference Range Interpretation Comments B/C Ratio (test code = B/C Ratio) 10 6-25 [facility] CampusCyjbiemTEUQWRXVVSBH0245-79-05 10:21:00 Test Item Value Reference Range Interpretation Comments Globulin (test code = Globulin) 3.5 2.0-4.0 [facility] HealthQwgoxwmOZLUNRACCAHU7450-05-64 10:21:00 Test Item Value Reference Range Interpretation Comments A/G Ratio (test code = A/G Ratio) 1.3 0.7-1.6 [facility] HospitalXtwbxkuWDTKCSKRYRIF1246-83-00 10:21:00 Test Item Value Reference Range Interpretation Comments Bili Total (test code = Bili Total) 0.4 0.2-1.3 [facility] CampusJqlksqvWJNYMNLCHPJS9151-21-76 10:21:00 Test Item Value Reference Range Interpretation Comments eGFR (test code = eGFR) 96 [facility] HospitalYsywigxFZIGBAOYZBVG1309-36-99 10:21:00 Test Item Value Reference Range Interpretation Comments Sodium Lvl (test code = Sodium Lvl) 140 135-145 [facility] HospitalOasxzvbAAVHYIRIFQMU9908-61-60 10:21:00 Test Item Value Reference Range Interpretation Comments CO2 (test code = CO2) 24 24-32 [facility] HospitalLoebwblRBTGZPRASIVX7602-97-64 10:21:00 Test Item Value Reference Range Interpretation Comments Calcium Lvl (test code = Calcium Lvl) 8.5 8.5-10.5 [facility] HospitalFtetbmkGBSMUJASCHAQ3983-56-80 10:21:00 Test Item Value Reference Range Interpretation Comments AST (test code = AST) 13 See_Comment [Auto mated message] The system which ge nerated this result transmit ezequiel reference range : <=37. The reference range was not used to interpr et this result as grace l/abnormal. [facility] HospitalGwabkdxRTSJBJZHXEHZ6617-59-27 10:21:00 Test Item Value Reference Range Interpretation Comments Potassium Lvl (test code = Potassium 4.0 3.5-5.1 Lvl) [facility] HospitalCzslkbgUELPHXSTSOLK0842-70-71 10:21:00 Test Item Value Reference Range Interpretation Comments Chloride Lvl (test code = Chloride Lvl) 106 95-109 [facility] HospitalUdgeylrWANKKEKUVABK8139-46-88 10:21:00 Test Item Value Reference Range Interpretation Comments Total Protein (test code = Total 7.9 6.4-8.4 Protein) [facility] HospitalSlfwubmDZBTSXAXEKDE7926-27-78 10:21:00 Test Item Value Reference Range Interpretation Comments Albumin Lvl (test code = Albumin Lvl) 4.4 3.5-5.0 [facility] HospitalFrllhjhYKLWPVWJYHYH9304-09-53 10:21:00 Test Item Value Reference Range Interpretation Comments ALT (test code = ALT) 29 See_Comment [Auto mated message] The system which ge nerated this result transmit ezequiel reference range : <=65. The reference range was not used to interpr et this result as grace l/abnormal. [facility] HospitalOlcsshkZGBQEJHJWJRY0248-22-24 10:21:00 Test Item Value Reference Range Interpretation Comments Alk Phos (test code = Alk Phos) 66 39-136 [facility] HospitalBubzxhaLFAYEHDAIWIK4417-44-57 10:21:00 Test Item Value Reference Range Interpretation Comments Creatinine Lvl (test code = Creatinine 1.06 0.50-1.40 Lvl) [facility] HospitalTdkjrznKHZIYNUVGSXR0206-03-12 10:21:00 Test Item Value Reference Range Interpretation Comments BUN (test code = BUN) 11 7-22 [facility] CampusAqfsudlTWPLLLMVJSGX0970-21-65 10:21:00 Test Item Value Reference Range Interpretation Comments Glucose Lvl (test code = Glucose Lvl) 96 70-99 [facility]landsUveblxjFAVMAMBNJY4332-59-64 10:21:00 Test Item Value Reference Range Interpretation Comments INR (test code = INR) 1.03 0.85-1.17 [facility]landsDikcgiyLPIZPAFYAH7621-50-51 10:21:00 Test Item Value Reference Range Interpretation Comments PT (test code = PT) 13.8 s 12.0-14.7 [facility]landsZtddhjrHZDNFFFCYB4909-34-63 10:21:00 Test Item Value Reference Range Interpretation Comments WBC (test code = WBC) 13.5 3.7-10.4 [facility]landsInkpaxjKUIMPESJUW3904-00-27 10:21:00 Test Item Value Reference Range Interpretation Comments RBC (test code = RBC) 5.03 4.70-6.10 [facility]landsFrqizkvTTQBASBQCQ0445-40-55 10:21:00 Test Item Value Reference Range Interpretation Comments Hgb (test code = Hgb) 15.5 14.0-18.0 [facility]landsWwmollkMMTZGCUMIU0653-18-87 10:21:00 Test Item Value Reference Range Interpretation Comments Hct (test code = Hct) 46.2 42.0-54.0 [facility]landsXrnhssgWXSOHHJSUX0302-30-07 10:21:00 Test Item Value Reference Range Interpretation Comments MPV (test code = MPV) 9.9 7.4-10.4 [facility]landsYtzikghDJNREIGEDA5335-25-26 10:21:00 Test Item Value Reference Range Interpretation Comments RDW (test code = RDW) 13.3 11.5-14.5 [facility]landsLbohffiOIPLZKXITG5666-41-01 10:21:00 Test Item Value Reference Range Interpretation Comments MCHC (test code = MCHC) 33.5 32.0-36.0 [facility]landsFvqjxflNIFCJTVRLH7413-08-99 10:21:00 Test Item Value Reference Range Interpretation Comments Platelet (test code = Platelet) 223 906-450 [facility]landsEfkwbxhJUQIQARFJE3746-40-69 10:21:00 Test Item Value Reference Range Interpretation Comments MCH (test code = MCH) 30.8 pg 27.0-31.0 [facility]landsScukhivCKXYFKRNZL7647-80-12 10:21:00 Test Item Value Reference Range Interpretation Comments MCV (test code = MCV) 91.9 80.0-94.0 [facility]landsMymrrbwQUMEPCYXYU1069-88-79 10:21:00 Test Item Value Reference Range Interpretation Comments Lymphocytes # (test code = Lymphocytes 2.3 1.0-5.5 #) [facility]landsWplulabNVTUXZHMTR4645-11-26 10:21:00 Test Item Value Reference Range Interpretation Comments Basophils (test code = 0.4 See_Comment [Aut omated message] The Basophils) system which ge nerated this result tra nsmitted reference range : <=1.0. The reference r tony was not used to int erpret this result as normal/abnormal . [facility]landsGpkgbquOHIRSNTFOF0163-74-60 10:21:00 Test Item Value Reference Range Interpretation Comments Monocytes # (test code 0.5 See_Comment [Aut omated message] The = Monocytes #) system which generated this result tra nsmitted reference range : <=0.8. The reference r tony was not used to int erpret this result as normal/abnormal . [facility]landsKtxdrymYLFMYPZXVG3508-12-23 10:21:00 Test Item Value Reference Range Interpretation Comments Segs-Bands # (test code = Segs-Bands #) 10.4 1.5-8.1 [facility]landsAjqxewtYZAODLLGFX0059-40-64 10:21:00 Test Item Value Reference Range Interpretation Comments Monocytes (test code = Monocytes) 3.4 2.0-12.0 [facility]landsAflekznZJFMSZWAGG2304-26-20 10:21:00 Test Item Value Reference Range Interpretation Comments Lymphocytes (test code = Lymphocytes) 17.0 20.0-40.0 [facility]landsTgdfsmuPAETMFXHCO8202-87-53 10:21:00 Test Item Value Reference Range Interpretation Comments Eosinophils (test code = 2.3 See_Comment [A utomated message] The Eosinophils) system which ge nerated this result tra nsmitted reference range : <=4.0. The reference r tony was not used to int erpret this result as normal/abnormal . [facility]landsKrcnavgPCONPQGBRF2139-98-71 10:21:00 Test Item Value Reference Range Interpretation Comments Segs (test code = Segs) 76.9 45.0-75.0 [facility]landsKueirgmNCPDTMLFVW9832-63-25 10:21:00 Test Item Value Reference Range Interpretation Comments Eosinophils # (test code 0.3 See_Comment [A utomated message] The = Eosinophils #) system whic h generated this result tra nsmitted reference range : <=0.5. The reference r tony was not used to int erpret this result as normal/abnormal . [facility] HospitalTokeskbPSLRLJPZSH2529-26-17 10:21:00 Test Item Value Reference Range Interpretation Comments Etoh (%) (test code = Etoh (%)) 0.141 [facility] HospitalDeyigcoOCWTMDUKJN9046-93-77 10:21:00 Test Item Value Reference Range Interpretation Comments Ethanol Lvl (test code = Ethanol Lvl) 141 [facility] HospitalCARDIAC TEJIWJC0216-47-48 10:21:00 Test Item Value Reference Range Interpretation Comments Total CK (test code = Total CK) 274 12-191 [facility] HealthNyopaidLLCFXEKTYGAL6328-98-73 10:21:00 Test Item Value Reference Range Interpretation Comments AGAP (test code = AGAP) 14.0 10.0-20.0 [facility] CampusFprjwyjTPAXQDVNGAIA1538-76-94 10:21:00 Test Item Value Reference Range Interpretation Comments B/C Ratio (test code = B/C Ratio) 10 6-25 [facility] CampusYnlumiqXXCLRHRMAJGT8736-51-37 10:21:00 Test Item Value Reference Range Interpretation Comments Globulin (test code = Globulin) 3.5 2.0-4.0 [facility] HealthNvfvfieHLWSMDUEKDYM5535-25-16 10:21:00 Test Item Value Reference Range Interpretation Comments A/G Ratio (test code = A/G Ratio) 1.3 0.7-1.6 [facility] HospitalAtfurqlIASVRJJPLSOM0157-90-29 10:21:00 Test Item Value Reference Range Interpretation Comments Bili Total (test code = Bili Total) 0.4 0.2-1.3 [facility] CampusPzaeeptMTMFVVDORHDN2231-10-79 10:21:00 Test Item Value Reference Range Interpretation Comments eGFR (test code = eGFR) 96 [facility] CampusJkeavbeUUAYLZZGTYUX4930-08-95 10:21:00 Test Item Value Reference Range Interpretation Comments Sodium Lvl (test code = Sodium Lvl) 140 135-145 [facility] HealthJaxwbaaRRYLNWYNWBBC7225-95-38 10:21:00 Test Item Value Reference Range Interpretation Comments CO2 (test code = CO2) 24 24-32 [facility] HospitalMhrkviyLCRRBSAHURSR5426-28-50 10:21:00 Test Item Value Reference Range Interpretation Comments Calcium Lvl (test code = Calcium Lvl) 8.5 8.5-10.5 [facility] HospitalRririwuXIFBGTFQSRNK1838-64-84 10:21:00 Test Item Value Reference Range Interpretation Comments AST (test code = AST) 13 See_Comment [Auto mated message] The system which ge nerated this result transmit ezequiel reference range : <=37. The reference range was not used to interpr et this result as grace l/abnormal. [facility] HospitalNtucuaoXMTXLLBMCHXQ0220-16-93 10:21:00 Test Item Value Reference Range Interpretation Comments Potassium Lvl (test code = Potassium 4.0 3.5-5.1 Lvl) [facility] HospitalNsjyhbmMMJESAICJUUL4942-10-62 10:21:00 Test Item Value Reference Range Interpretation Comments Chloride Lvl (test code = Chloride Lvl) 106 95-109 [facility] HospitalKmvdyyuVVMJWGISAXAU7494-32-60 10:21:00 Test Item Value Reference Range Interpretation Comments Total Protein (test code = Total 7.9 6.4-8.4 Protein) [facility] HospitalOlrxzyjRBJXUSUEGJYA8219-36-02 10:21:00 Test Item Value Reference Range Interpretation Comments Albumin Lvl (test code = Albumin Lvl) 4.4 3.5-5.0 [facility] HospitalBbharbbPSKTMORLGFIU9450-50-47 10:21:00 Test Item Value Reference Range Interpretation Comments ALT (test code = ALT) 29 See_Comment [Auto mated message] The system which ge nerated this result transmit ezequiel reference range : <=65. The reference range was not used to interpr et this result as grace l/abnormal. [facility] HospitalYqcpfmgNWVSRNNRJUHE3659-67-11 10:21:00 Test Item Value Reference Range Interpretation Comments Alk Phos (test code = Alk Phos) 66 39-136 [facility] HospitalHiifcmgZJZFQXLLTPYJ4019-33-69 10:21:00 Test Item Value Reference Range Interpretation Comments Creatinine Lvl (test code = Creatinine 1.06 0.50-1.40 Lvl) [facility] HospitalAarhlaoHWSSYRDZZTAD1722-20-87 10:21:00 Test Item Value Reference Range Interpretation Comments BUN (test code = BUN) 11 7-22 [facility] HospitalOklxakaZXXLZPTBQAQA7253-17-81 10:21:00 Test Item Value Reference Range Interpretation Comments Glucose Lvl (test code = Glucose Lvl) 96 70-99 [facility]landsErypewxEPNUFDXTOK9006-01-72 10:21:00 Test Item Value Reference Range Interpretation Comments INR (test code = INR) 1.03 0.85-1.17 [facility]landsOlgztvmCDOCDKFYDG8279-54-28 10:21:00 Test Item Value Reference Range Interpretation Comments PT (test code = PT) 13.8 s 12.0-14.7 [facility]landsOrkrhvtCCZOCTHNAP7421-63-71 10:21:00 Test Item Value Reference Range Interpretation Comments WBC (test code = WBC) 13.5 3.7-10.4 [facility] [place]EpvbkjjCHERSCEGHW1682-43-05 10:21:00 Test Item Value Reference Range Interpretation Comments RBC (test code = RBC) 5.03 4.70-6.10 [facility]LiswrvlKGHBCBWGAE9996-77-52 10:21:00 Test Item Value Reference Range Interpretation Comments Hgb (test code = Hgb) 15.5 14.0-18.0 [facility]landsMsjwmksNRUMHKMSHV0397-08-78 10:21:00 Test Item Value Reference Range Interpretation Comments Hct (test code = Hct) 46.2 42.0-54.0 [facility]landsHpkkfxgUOETTDTSZT7899-10-36 10:21:00 Test Item Value Reference Range Interpretation Comments MPV (test code = MPV) 9.9 7.4-10.4 [facility]landsCyzfpihRTTURYHUTW9359-45-69 10:21:00 Test Item Value Reference Range Interpretation Comments RDW (test code = RDW) 13.3 11.5-14.5 [facility]landsCiegsdpQSLURVZXLW8467-58-95 10:21:00 Test Item Value Reference Range Interpretation Comments MCHC (test code = MCHC) 33.5 32.0-36.0 [facility]landsYenpgxtAGMYGLDSYL7794-73-82 10:21:00 Test Item Value Reference Range Interpretation Comments Platelet (test code = Platelet) 223 133-450 [facility]landsImohdgoHSLZJBQQIZ5149-25-62 10:21:00 Test Item Value Reference Range Interpretation Comments MCH (test code = MCH) 30.8 pg 27.0-31.0 [facility]landsOvbipabUONMPWWOKT9837-10-05 10:21:00 Test Item Value Reference Range Interpretation Comments MCV (test code = MCV) 91.9 80.0-94.0 [facility]landsLugjrauXGNNDCGENZ3230-10-02 10:21:00 Test Item Value Reference Range Interpretation Comments Lymphocytes # (test code = Lymphocytes 2.3 1.0-5.5 #) [facility]landsLagtvpmFSDVXMWROI8314-62-62 10:21:00 Test Item Value Reference Range Interpretation Comments Basophils (test code = 0.4 See_Comment [Aut omated message] The Basophils) system which ge nerated this result tra nsmitted reference range : <=1.0. The reference r tony was not used to int erpret this result as normal/abnormal . [facility]landsZmturpnCNPUXBDAOQ0071-18-46 10:21:00 Test Item Value Reference Range Interpretation Comments Monocytes # (test code 0.5 See_Comment [Aut omated message] The = Monocytes #) system which generated this result tra nsmitted reference range : <=0.8. The reference r tony was not used to int erpret this result as normal/abnormal . [facility]landsWofcillLDSSAQPRUO5438-02-62 10:21:00 Test Item Value Reference Range Interpretation Comments Segs-Bands # (test code = Segs-Bands #) 10.4 1.5-8.1 [facility]landsMkmcykxZGKRZHCMQM8189-27-67 10:21:00 Test Item Value Reference Range Interpretation Comments Monocytes (test code = Monocytes) 3.4 2.0-12.0 [facility]landsSpdlxsoXBTLAUGING2891-34-43 10:21:00 Test Item Value Reference Range Interpretation Comments Lymphocytes (test code = Lymphocytes) 17.0 20.0-40.0 [facility]landsFwkiuqoAEQCMYGIOG8424-22-90 10:21:00 Test Item Value Reference Range Interpretation Comments Eosinophils (test code = 2.3 See_Comment [A utomated message] The Eosinophils) system which ge nerated this result tra nsmitted reference range : <=4.0. The reference r tony was not used to int erpret this result as normal/abnormal . [facility]lan[id number] 10:21:00 Test Item Value Reference Range Interpretation Comments Segs (test code = Segs) 76.9 45.0-75.0 [facility]landsDdplxexNIISFDTQGA6512-31-99 10:21:00 Test Item Value Reference Range Interpretation Comments Eosinophils # (test code 0.3 See_Comment [A utomated message] The = Eosinophils #) system whic h generated this result tra nsmitted reference range : <=0.5. The reference r tony was not used to int erpret this result as normal/abnormal . [place] [id number] 10:21:00 Test Item Value Reference Range Interpretation Comments Etoh (%) (test code = Etoh (%)) 0.141 [place] [id number] 10:21:00 Test Item Value Reference Range Interpretation Comments Ethanol Lvl (test code = Ethanol Lvl) 141 [facility] AND [id number] 07:00:00 Test Item Value Reference Range Interpretation Comments UA Turbidity (test code = Clear (06/08/15 1:00 UA Turbidity) AM) [facility] AND [id number] 07:00:00 Test Item Value Reference Range Interpretation Comments UA Spec Grav (test code = UA Spec 1.015 1 Grav) [facility] AND [id number] 07:00:00 Test Item Value Reference Range Interpretation Comments UA Color (test code = Yellow *NA*(06/08/15 1:00 UA Color) AM) [facility] AND [id number] 07:00:00 Test Item Value Reference Range Interpretation Comments UA WBC (test code = UA WBC) 0-2 /HPF [facility] AND [id number] 07:00:00 Test Item Value Reference Range Interpretation Comments UA Bacteria (test code = UA Occasional /HPF Bacteria) [facility] AND [id number] 07:00:00 Test Item Value Reference Range Interpretation Comments UA RBC (test code = 0-2 /HPF See_Comment [Automa ezequiel message] The UA RBC) system which ge nerated this result tra nsmitted reference range : <=2. The reference range was not used to interpr et this result as grace l/abnormal. [facility] AND [id number] 07:00:00 Test Item Value Reference Range Interpretation Comments UA Urobilinogen (test code = UA 0.2 0.1-1.0 Urobilinogen) [facility] AND [id number] 07:00:00 Test Item Value Reference Range Interpretation Comments UA Nitrite (test code Negative (06/08/15 1:00 = UA Nitrite) AM) [facility] AND [id number] 07:00:00 Test Item Value Reference Range Interpretation Comments Micro? (test code = Performed (06/08/15 1:00 Micro?) AM) [facility] AND [id number] 07:00:00 Test Item Value Reference Range Interpretation Comments UA Leuk Est (test Negative (06/08/15 1:00 code = UA Leuk Est) AM) [facility] AND [id number] 07:00:00 Test Item Value Reference Range Interpretation Comments UA Sq Epi (test code = UA Sq Epi) Few /LPF [facility] AND [id number] 07:00:00 Test Item Value Reference Range Interpretation Comments UA Protein (test code Negative (06/08/15 1:00 = UA Protein) AM) [facility] AND [id number] 07:00:00 Test Item Value Reference Range Interpretation Comments UA Glucose (test code Negative (06/08/15 1:00 = UA Glucose) AM) [facility] AND [id number] 07:00:00 Test Item Value Reference Range Interpretation Comments UA Bili (test code = Negative *NA*(06/08/15 UA Bili) 1:00 AM) [facility] AND [id number] 07:00:00 Test Item Value Reference Range Interpretation Comments UA Ketones (test code = UA Ketones) 15 mg/dL [facility] AND [id number] 07:00:00 Test Item Value Reference Range Interpretation Comments UA Blood (test code = Trace *ABN*(06/08/15 UA Blood) 1:00 AM) [facility] AND [id number] 07:00:00 Test Item Value Reference Range Interpretation Comments UA pH (test code = UA pH) 6.0 1 5.0-8.0 [facility] AND [id number] 07:00:00 Test Item Value Reference Range Interpretation Comments UA Turbidity (test code = Clear (06/08/15 1:00 UA Turbidity) AM) [facility] AND [id number] 07:00:00 Test Item Value Reference Range Interpretation Comments UA Spec Grav (test code = UA Spec 1.015 1 Grav) [facility] AND [id number] 07:00:00 Test Item Value Reference Range Interpretation Comments UA Color (test code = Yellow *NA*(06/08/15 1:00 UA Color) AM) [facility] AND [id number] 07:00:00 Test Item Value Reference Range Interpretation Comments UA WBC (test code = UA WBC) 0-2 /HPF [facility] AND [id number] 07:00:00 Test Item Value Reference Range Interpretation Comments UA Bacteria (test code = UA Occasional /HPF Bacteria) [facility] AND [id number] 07:00:00 Test Item Value Reference Range Interpretation Comments UA RBC (test code = 0-2 /HPF See_Comment [Automa ezequiel message] The UA RBC) system which ge nerated this result tra nsmitted reference range : <=2. The reference range was not used to interpr et this result as grace l/abnormal. [facility] AND [id number] 07:00:00 Test Item Value Reference Range Interpretation Comments UA Urobilinogen (test code = UA 0.2 0.1-1.0 Urobilinogen) [facility] AND [id number] 07:00:00 Test Item Value Reference Range Interpretation Comments UA Nitrite (test code Negative (06/08/15 1:00 = UA Nitrite) AM) [facility] AND [id number] 07:00:00 Test Item Value Reference Range Interpretation Comments Micro? (test code = Performed (06/08/15 1:00 Micro?) AM) [facility] AND [id number] 07:00:00 Test Item Value Reference Range Interpretation Comments UA Leuk Est (test Negative (06/08/15 1:00 code = UA Leuk Est) AM) [facility] AND [id number] 07:00:00 Test Item Value Reference Range Interpretation Comments UA Sq Epi (test code = UA Sq Epi) Few /LPF [facility] AND [id number] 07:00:00 Test Item Value Reference Range Interpretation Comments UA Protein (test code Negative (06/08/15 1:00 = UA Protein) AM) [facility] AND [id number] 07:00:00 Test Item Value Reference Range Interpretation Comments UA Glucose (test code Negative (06/08/15 1:00 = UA Glucose) AM) [facility] AND [id number] 07:00:00 Test Item Value Reference Range Interpretation Comments UA Bili (test code = Negative *NA*(06/08/15 UA Bili) 1:00 AM) [facility] AND [id number] 07:00:00 Test Item Value Reference Range Interpretation Comments UA Ketones (test code = UA Ketones) 15 mg/dL [facility] AND [id number] 07:00:00 Test Item Value Reference Range Interpretation Comments UA Blood (test code = Trace *ABN*(06/08/15 UA Blood) 1:00 AM) [facility] AND [id number] 07:00:00 Test Item Value Reference Range Interpretation Comments UA pH (test code = UA pH) 6.0 1 5.0-8.0 [facility] AND [id number] 07:00:00 Test Item Value Reference Range Interpretation Comments UA Turbidity (test code = Clear (06/08/15 1:00 UA Turbidity) AM) [facility] AND [id number] 07:00:00 Test Item Value Reference Range Interpretation Comments UA Spec Grav (test code = UA Spec 1.015 1 Grav) [facility] AND [id number] 07:00:00 Test Item Value Reference Range Interpretation Comments UA Color (test code = Yellow *NA*(06/08/15 1:00 UA Color) AM) [facility] AND [id number] 07:00:00 Test Item Value Reference Range Interpretation Comments UA WBC (test code = UA WBC) 0-2 /HPF [facility] AND [id number] 07:00:00 Test Item Value Reference Range Interpretation Comments UA Bacteria (test code = UA Occasional /HPF Bacteria) [facility] AND [id number] 07:00:00 Test Item Value Reference Range Interpretation Comments UA RBC (test code = 0-2 /HPF See_Comment [Automa ezequiel message] The UA RBC) system which ge nerated this result tra nsmitted reference range : <=2. The reference range was not used to interpr et this result as grace l/abnormal. [facility] AND [id number] 07:00:00 Test Item Value Reference Range Interpretation Comments UA Urobilinogen (test code = UA 0.2 0.1-1.0 Urobilinogen) [facility] AND [id number] 07:00:00 Test Item Value Reference Range Interpretation Comments UA Nitrite (test code Negative (06/08/15 1:00 = UA Nitrite) AM) [facility] AND [id number] 07:00:00 Test Item Value Reference Range Interpretation Comments Micro? (test code = Performed (06/08/15 1:00 Micro?) AM) [facility] AND [id number] 07:00:00 Test Item Value Reference Range Interpretation Comments UA Leuk Est (test Negative (06/08/15 1:00 code = UA Leuk Est) AM) [facility] AND [id number] 07:00:00 Test Item Value Reference Range Interpretation Comments UA Sq Epi (test code = UA Sq Epi) Few /LPF [facility] AND [id number] 07:00:00 Test Item Value Reference Range Interpretation Comments UA Protein (test code Negative (06/08/15 1:00 = UA Protein) AM) [facility] AND [id number] 07:00:00 Test Item Value Reference Range Interpretation Comments UA Glucose (test code Negative (06/08/15 1:00 = UA Glucose) AM) [facility] AND [id number] 07:00:00 Test Item Value Reference Range Interpretation Comments UA Bili (test code = Negative *NA*(06/08/15 UA Bili) 1:00 AM) [facility] AND [id number] 07:00:00 Test Item Value Reference Range Interpretation Comments UA Ketones (test code = UA Ketones) 15 mg/dL [facility] AND [id number] 07:00:00 Test Item Value Reference Range Interpretation Comments UA Blood (test code = Trace *ABN*(06/08/15 UA Blood) 1:00 AM) [facility] AND [id number] 07:00:00 Test Item Value Reference Range Interpretation Comments UA pH (test code = UA pH) 6.0 1 5.0-8.0 [facility] AND [id number] 07:00:00 Test Item Value Reference Range Interpretation Comments UA Turbidity (test code = Clear (06/08/15 1:00 UA Turbidity) AM) [facility] AND [id number] 07:00:00 Test Item Value Reference Range Interpretation Comments UA Spec Grav (test code = UA Spec 1.015 1 Grav) [facility] AND [id number] 07:00:00 Test Item Value Reference Range Interpretation Comments UA Color (test code = Yellow *NA*(06/08/15 1:00 UA Color) AM) [facility] AND [id number] 07:00:00 Test Item Value Reference Range Interpretation Comments UA WBC (test code = UA WBC) 0-2 /HPF [facility] AND [id number] 07:00:00 Test Item Value Reference Range Interpretation Comments UA Bacteria (test code = UA Occasional /HPF Bacteria) [facility] AND [id number] 07:00:00 Test Item Value Reference Range Interpretation Comments UA RBC (test code = 0-2 /HPF See_Comment [Automa ezequiel message] The UA RBC) system which ge nerated this result tra nsmitted reference range : <=2. The reference range was not used to interpr et this result as grace l/abnormal. [facility] AND [id number] 07:00:00 Test Item Value Reference Range Interpretation Comments UA Urobilinogen (test code = UA 0.2 0.1-1.0 Urobilinogen) [facility] AND [id number] 07:00:00 Test Item Value Reference Range Interpretation Comments UA Nitrite (test code Negative (06/08/15 1:00 = UA Nitrite) AM) [facility] AND [id number] 07:00:00 Test Item Value Reference Range Interpretation Comments Micro? (test code = Performed (06/08/15 1:00 Micro?) AM) [facility] AND [id number] 07:00:00 Test Item Value Reference Range Interpretation Comments UA Leuk Est (test Negative (06/08/15 1:00 code = UA Leuk Est) AM) [facility] AND [id number] 07:00:00 Test Item Value Reference Range Interpretation Comments UA Sq Epi (test code = UA Sq Epi) Few /LPF [facility] AND [id number] 07:00:00 Test Item Value Reference Range Interpretation Comments UA Protein (test code Negative (06/08/15 1:00 = UA Protein) AM) [facility] AND [id number] 07:00:00 Test Item Value Reference Range Interpretation Comments UA Glucose (test code Negative (06/08/15 1:00 = UA Glucose) AM) [facility] AND [id number] 07:00:00 Test Item Value Reference Range Interpretation Comments UA Bili (test code = Negative *NA*(06/08/15 UA Bili) 1:00 AM) [facility] AND [id number] 07:00:00 Test Item Value Reference Range Interpretation Comments UA Ketones (test code = UA Ketones) 15 mg/dL [facility] AND [id number] 07:00:00 Test Item Value Reference Range Interpretation Comments UA Blood (test code = Trace *ABN*(06/08/15 UA Blood) 1:00 AM) [facility] AND [id number] 07:00:00 Test Item Value Reference Range Interpretation Comments UA pH (test code = UA pH) 6.0 1 5.0-8.0 [id number] 05:32:00 Test Item Value Reference Range Interpretation Comments Segs (test code = Segs) 82.6 45.0-75.0 [facility] [id number] 05:32:00 Test Item Value Reference Range Interpretation Comments Lipase Lvl (test code = Lipase Lvl) 91 73-393 [facility] [id number] 05:32:00 Test Item Value Reference Range Interpretation Comments B/C Ratio (test code = B/C Ratio) 9 6-25 [facility] [id number] 05:32:00 Test Item Value Reference Range Interpretation Comments AGAP (test code = AGAP) 12.8 10.0-20.0 [facility] [id number] 05:32:00 Test Item Value Reference Range Interpretation Comments Globulin (test code = Globulin) 3.7 2.0-4.0 [facility] [id number] 05:32:00 Test Item Value Reference Range Interpretation Comments A/G Ratio (test code = A/G Ratio) 1.1 0.7-1.6 [place] [id number] 05:32:00 Test Item Value Reference Range Interpretation Comments eGFR (test code = eGFR) [address] [facility]2016-01-06 05:32:00 Test Item Value Reference Range Interpretation Comments Glucose Lvl (test code = Glucose Lvl) 114 70-99 [place] [id number] 05:32:00 Test Item Value Reference Range Interpretation Comments BUN (test code = BUN) 11 7-22 [place] [id number] 05:32:00 Test Item Value Reference Range Interpretation Comments AST (test code = AST) 23 See_Comment [Auto mated message] The system which ge nerated this result transmit ezequiel reference range : <=37. The reference range was not used to interpr et this result as grace l/abnormal. [place] [id number] 05:32:00 Test Item Value Reference Range Interpretation Comments Alk Phos (test code = Alk Phos) 72 39-136 [place] [id number] 05:32:00 Test Item Value Reference Range Interpretation Comments ALT (test code = ALT) 34 See_Comment [Auto mated message] The system which ge nerated this result transmit ezequiel reference range : <=65. The reference range was not used to interpr et this result as grace l/abnormal. [facility]2016-01-06 05:32:00 Test Item Value Reference Range Interpretation Comments Chloride Lvl (test code = Chloride Lvl) 102 95-[address] [facility]2016-01-06 05:32:00 Test Item Value Reference Range Interpretation Comments Creatinine Lvl (test code = Creatinine 1.28 0.50-1.40 Lvl) [place] [id number] 05:32:00 Test Item Value Reference Range Interpretation Comments Sodium Lvl (test code = Sodium Lvl) 135 135-145 [place] 587666-01-06 05:32:00 Test Item Value Reference Range Interpretation Comments Potassium Lvl (test code = Potassium 3.8 3.5-5.1 Lvl) [place] [id number] 05:32:00 Test Item Value Reference Range Interpretation Comments Bili Total (test code = Bili Total) 0.5 0.2-1.[address] [facility]2016-01-06 05:32:00 Test Item Value Reference Range Interpretation Comments Calcium Lvl (test code = Calcium Lvl) 8.5 8.5-10.[address] [facility]2016-01-06 05:32:00 Test Item Value Reference Range Interpretation Comments CO2 (test code = CO2) 24 24-[address] [facility]2016-01-06 05:32:00 Test Item Value Reference Range Interpretation Comments Albumin Lvl (test code = Albumin Lvl) 4.1 3.5-5.[address] [facility]2016-01-06 05:32:00 Test Item Value Reference Range Interpretation Comments Total Protein (test code = Total 7.8 6.4-8.4 Protein) [id number] 05:32:00 Test Item Value Reference Range Interpretation Comments Platelet (test code = Platelet) 196 133-450 [id number] 05:32:00 Test Item Value Reference Range Interpretation Comments RDW (test code = RDW) 12.4 11.5-14.5 [facility]landsEqctpmnMEYBYIBQXH5626-95-27 05:32:00 Test Item Value Reference Range Interpretation Comments MPV (test code = MPV) 10.1 7.4-10.4 [id number] 05:32:00 Test Item Value Reference Range Interpretation Comments MCH (test code = MCH) 30.6 pg 27.0-31.0 [id number] 05:32:00 Test Item Value Reference Range Interpretation Comments MCV (test code = MCV) 92.6 80.0-94.0 [id number] 05:32:00 Test Item Value Reference Range Interpretation Comments Hct (test code = Hct) 45.9 42.0-54.0 [id number] 05:32:00 Test Item Value Reference Range Interpretation Comments Hgb (test code = Hgb) 15.2 14.0-18.0 [facility]landsCmcwxhgKWURKNJJDV0471-25-17 05:32:00 Test Item Value Reference Range Interpretation Comments RBC (test code = RBC) 4.95 4.70-6.10 [facility]landsQxaycfbHIYDTZOCLJ9321-50-43 05:32:00 Test Item Value Reference Range Interpretation Comments WBC (test code = WBC) 15.2 3.7-10.4 [facility]landsLcpbabcQJVDGVHVQX7870-87-06 05:32:00 Test Item Value Reference Range Interpretation Comments MCHC (test code = MCHC) 33.1 32.0-36.0 [id number] 05:32:00 Test Item Value Reference Range Interpretation Comments Monocytes # (test code 1.0 See_Comment [Aut omated message] The = Monocytes #) system which generated this result tra nsmitted reference range : <=0.8. The reference r tony was not used to int erpret this result as normal/abnormal . [facility][id number] 05:32:00 Test Item Value Reference Range Interpretation Comments Basophils # (test code 0.1 See_Comment [Aut omated message] The = Basophils #) system which generated this result tra nsmitted reference range : <=0.2. The reference r tony was not used to int erpret this result as normal/abnormal . [facility][id number] 05:32:00 Test Item Value Reference Range Interpretation Comments Eosinophils (test code = 0.1 See_Comment [A utomated message] The Eosinophils) system which ge nerated this result tra nsmitted reference range : <=4.0. The reference r tony was not used to int erpret this result as normal/abnormal . [facility]landsQuishyyWUXVFQNHDK7401-20-47 05:32:00 Test Item Value Reference Range Interpretation Comments Basophils (test code = 0.5 See_Comment [Aut omated message] The Basophils) system which ge nerated this result tra nsmitted reference range : <=1.0. The reference r tony was not used to int erpret this result as normal/abnormal . [facility]ZefzvxmFTRIUABLQF8495-28-25 05:32:00 Test Item Value Reference Range Interpretation Comments Segs-Bands # (test code = Segs-Bands #) 12.6 1.5-8.1 [facility]landsTcsiducYPKELWDAAE8296-38-04 05:32:00 Test Item Value Reference Range Interpretation Comments Lymphocytes (test code = Lymphocytes) 10.2 20.0-40.0 [facility]landsTlonmatDVUZIQFGED4998-21-30 05:32:00 Test Item Value Reference Range Interpretation Comments Monocytes (test code = Monocytes) 6.6 2.0-12.0 [facility]landsZnmlfysNOZMSPCBSD5299-62-22 05:32:00 Test Item Value Reference Range Interpretation Comments Lymphocytes # (test code = Lymphocytes 1.6 1.0-5.5 #) [facility]landsJqhvpetXBSGVZDVQZ8103-07-63 05:32:00 Test Item Value Reference Range Interpretation Comments Segs (test code = Segs) 82.6 45.0-75.[address] [facility]2016-01-06 05:32:00 Test Item Value Reference Range Interpretation Comments Lipase Lvl (test code = Lipase Lvl) 91 73-[address] [facility]2016-01-06 05:32:00 Test Item Value Reference Range Interpretation Comments B/C Ratio (test code = B/C Ratio) 9 6-[address] [facility]2016-01-06 05:32:00 Test Item Value Reference Range Interpretation Comments AGAP (test code = AGAP) 12.8 10.0-20.[address] [facility]2016-01-06 05:32:00 Test Item Value Reference Range Interpretation Comments Globulin (test code = Globulin) 3.7 2.0-4.[address] [facility]2016-01-06 05:32:00 Test Item Value Reference Range Interpretation Comments A/G Ratio (test code = A/G Ratio) 1.1 0.7-1.[address] [facility]2016-01-06 05:32:00 Test Item Value Reference Range Interpretation Comments eGFR (test code = eGFR) [address] [facility]2016-01-06 05:32:00 Test Item Value Reference Range Interpretation Comments Glucose Lvl (test code = Glucose Lvl) 114 70-[address] [facility]2016-01-06 05:32:00 Test Item Value Reference Range Interpretation Comments BUN (test code = BUN) 11 7-[address] [facility]2016-01-06 05:32:00 Test Item Value Reference Range Interpretation Comments AST (test code = AST) 23 See_Comment [Auto mated message] The system which ge nerated this result transmit ezequiel reference range : <=37. The reference range was not used to interpr et this result as grace l/abnormal. [facility]2016-01-06 05:32:00 Test Item Value Reference Range Interpretation Comments Alk Phos (test code = Alk Phos) 72 39-[address] [facility]2016-01-06 05:32:00 Test Item Value Reference Range Interpretation Comments ALT (test code = ALT) 34 See_Comment [Auto mated message] The system which ge nerated this result transmit ezequiel reference range : <=65. The reference range was not used to interpr et this result as grace l/abnormal. [facility]2016-01-06 05:32:00 Test Item Value Reference Range Interpretation Comments Chloride Lvl (test code = Chloride Lvl) 102 95-[address] [facility]2016-01-06 05:32:00 Test Item Value Reference Range Interpretation Comments Creatinine Lvl (test code = Creatinine 1.28 0.50-1.40 Lvl) [facility]2016-01-06 05:32:00 Test Item Value Reference Range Interpretation Comments Sodium Lvl (test code = Sodium Lvl) 135 135-[address] [facility]2016-01-06 05:32:00 Test Item Value Reference Range Interpretation Comments Potassium Lvl (test code = Potassium 3.8 3.5-5.1 Lvl) [facility]2016-01-06 05:32:00 Test Item Value Reference Range Interpretation Comments Bili Total (test code = Bili Total) 0.5 0.2-1.[address] [facility]2016-01-06 05:32:00 Test Item Value Reference Range Interpretation Comments Calcium Lvl (test code = Calcium Lvl) 8.5 8.5-10.[address] [facility]2016-01-06 05:32:00 Test Item Value Reference Range Interpretation Comments CO2 (test code = CO2) 24 24-[address] [facility]2016-01-06 05:32:00 Test Item Value Reference Range Interpretation Comments Albumin Lvl (test code = Albumin Lvl) 4.1 3.5-5.[address] [facility]2016-01-06 05:32:00 Test Item Value Reference Range Interpretation Comments Total Protein (test code = Total 7.8 6.4-8.4 Protein) [facility]lan[id number] 05:32:00 Test Item Value Reference Range Interpretation Comments Platelet (test code = Platelet) 196 133-450 [facility]landsLbtxfgcZFPNMFUWZE4207-85-36 05:32:00 Test Item Value Reference Range Interpretation Comments RDW (test code = RDW) 12.4 11.5-14.5 [facility]landsXdjnvbcNCKYTLCCSX8286-66-81 05:32:00 Test Item Value Reference Range Interpretation Comments MPV (test code = MPV) 10.1 7.4-10.4 [facility]landsIgknhcoABDWEILRJN2713-57-64 05:32:00 Test Item Value Reference Range Interpretation Comments MCH (test code = MCH) 30.6 pg 27.0-31.0 [facility]landsUtwhzweXIZHDGKLPV3543-39-52 05:32:00 Test Item Value Reference Range Interpretation Comments MCV (test code = MCV) 92.6 80.0-94.0 [facility]landsYcmfukdJEYKRWOQMS4478-35-24 05:32:00 Test Item Value Reference Range Interpretation Comments Hct (test code = Hct) 45.9 42.0-54.0 [facility]landsEiqyjqmFGUKOAOYSN3501-75-75 05:32:00 Test Item Value Reference Range Interpretation Comments Hgb (test code = Hgb) 15.2 14.0-18.0 [facility]landsHqztvejYINDZNAHLO8481-61-17 05:32:00 Test Item Value Reference Range Interpretation Comments RBC (test code = RBC) 4.95 4.70-6.10 [facility]landsZyofozbRATXTNQLLE5679-05-49 05:32:00 Test Item Value Reference Range Interpretation Comments WBC (test code = WBC) 15.2 3.7-10.4 [facility]landsZfpuzwsNWTJXWOHIM4591-48-04 05:32:00 Test Item Value Reference Range Interpretation Comments MCHC (test code = MCHC) 33.1 32.0-36.0 [facility]landsFhlwymaPIRRZFOFYY7463-96-88 05:32:00 Test Item Value Reference Range Interpretation Comments Monocytes # (test code 1.0 See_Comment [Aut omated message] The = Monocytes #) system which generated this result tra nsmitted reference range : <=0.8. The reference r tony was not used to int erpret this result as normal/abnormal . [facility]landsPxdwjcdSBRDJJQNCX0489-11-83 05:32:00 Test Item Value Reference Range Interpretation Comments Basophils # (test code 0.1 See_Comment [Aut omated message] The = Basophils #) system which generated this result tra nsmitted reference range : <=0.2. The reference r tony was not used to int erpret this result as normal/abnormal . [facility]landsXrkvisrKAUKDDIXQZ0894-40-35 05:32:00 Test Item Value Reference Range Interpretation Comments Eosinophils (test code = 0.1 See_Comment [A utomated message] The Eosinophils) system which ge nerated this result tra nsmitted reference range : <=4.0. The reference r tony was not used to int erpret this result as normal/abnormal . [facility]landsRhycqgtEVVNROBJUV5415-80-39 05:32:00 Test Item Value Reference Range Interpretation Comments Basophils (test code = 0.5 See_Comment [Aut omated message] The Basophils) system which ge nerated this result tra nsmitted reference range : <=1.0. The reference r tony was not used to int erpret this result as normal/abnormal . [facility]landsTiitqjvSIAKMWHGUG8039-29-81 05:32:00 Test Item Value Reference Range Interpretation Comments Segs-Bands # (test code = Segs-Bands #) 12.6 1.5-8.1 [facility]landsHswwenmLZINVHCZHH2480-92-32 05:32:00 Test Item Value Reference Range Interpretation Comments Lymphocytes (test code = Lymphocytes) 10.2 20.0-40.0 [facility]landsGgficzsQJJXIUBEQR7767-52-81 05:32:00 Test Item Value Reference Range Interpretation Comments Monocytes (test code = Monocytes) 6.6 2.0-12.0 [facility]landsYhelajnYEERWTAWZG3645-15-77 05:32:00 Test Item Value Reference Range Interpretation Comments Lymphocytes # (test code = Lymphocytes 1.6 1.0-5.5 #) [facility]landsPwpyxraKFHRKTJIQJ1422-07-43 05:32:00 Test Item Value Reference Range Interpretation Comments Segs (test code = Segs) 82.6 45.0-75.[address] [facility]2016-01-06 05:32:00 Test Item Value Reference Range Interpretation Comments Lipase Lvl (test code = Lipase Lvl) 91 73-[address] [facility]2016-01-06 05:32:00 Test Item Value Reference Range Interpretation Comments B/C Ratio (test code = B/C Ratio) 9 6-[address] [facility]2016-01-06 05:32:00 Test Item Value Reference Range Interpretation Comments AGAP (test code = AGAP) 12.8 10.0-20.0 [place] 587666-01-06 05:32:00 Test Item Value Reference Range Interpretation Comments Globulin (test code = Globulin) 3.7 2.0-4.0 [place] 587666-01-06 05:32:00 Test Item Value Reference Range Interpretation Comments A/G Ratio (test code = A/G Ratio) 1.1 0.7-1.6 [place] 587666-01-06 05:32:00 Test Item Value Reference Range Interpretation Comments eGFR (test code = eGFR) [address] [facility]2016-01-06 05:32:00 Test Item Value Reference Range Interpretation Comments Glucose Lvl (test code = Glucose Lvl) 114 70-[address] [facility]2016-01-06 05:32:00 Test Item Value Reference Range Interpretation Comments BUN (test code = BUN) 11 7-22 [place] 587666-01-06 05:32:00 Test Item Value Reference Range Interpretation Comments AST (test code = AST) 23 See_Comment [Auto mated message] The system which ge nerated this result transmit ezequiel reference range : <=37. The reference range was not used to interpr et this result as grace l/abnormal. [facility]2016-01-06 05:32:00 Test Item Value Reference Range Interpretation Comments Alk Phos (test code = Alk Phos) 72 39-[address] [facility]2016-01-06 05:32:00 Test Item Value Reference Range Interpretation Comments ALT (test code = ALT) 34 See_Comment [Auto mated message] The system which ge nerated this result transmit ezequiel reference range : <=65. The reference range was not used to interpr et this result as grace l/abnormal. [place] 587666-01-06 05:32:00 Test Item Value Reference Range Interpretation Comments Chloride Lvl (test code = Chloride Lvl) 102 95-109 [place] 587666-01-06 05:32:00 Test Item Value Reference Range Interpretation Comments Creatinine Lvl (test code = Creatinine 1.28 0.50-1.40 Lvl) [facility]2016-01-06 05:32:00 Test Item Value Reference Range Interpretation Comments Sodium Lvl (test code = Sodium Lvl) 135 135-[address] [facility]2016-01-06 05:32:00 Test Item Value Reference Range Interpretation Comments Potassium Lvl (test code = Potassium 3.8 3.5-5.1 Lvl) [facility]2016-01-06 05:32:00 Test Item Value Reference Range Interpretation Comments Bili Total (test code = Bili Total) 0.5 0.2-1.[address] [facility]2016-01-06 05:32:00 Test Item Value Reference Range Interpretation Comments Calcium Lvl (test code = Calcium Lvl) 8.5 8.5-10.[address] [facility]2016-01-06 05:32:00 Test Item Value Reference Range Interpretation Comments CO2 (test code = CO2) 24 24-[address] [facility]2016-01-06 05:32:00 Test Item Value Reference Range Interpretation Comments Albumin Lvl (test code = Albumin Lvl) 4.1 3.5-5.[address] [facility]2016-01-06 05:32:00 Test Item Value Reference Range Interpretation Comments Total Protein (test code = Total 7.8 6.4-8.4 Protein) [facility]landsYpndehkLHSQXTUKQH1568-99-03 05:32:00 Test Item Value Reference Range Interpretation Comments Platelet (test code = Platelet) 196 133-450 [facility]lan[id number] 05:32:00 Test Item Value Reference Range Interpretation Comments RDW (test code = RDW) 12.4 11.5-14.5 [facility]lan[id number] 05:32:00 Test Item Value Reference Range Interpretation Comments MPV (test code = MPV) 10.1 7.4-10.4 [facility]landsUgnkopgPNGQVJUMUI9211-42-68 05:32:00 Test Item Value Reference Range Interpretation Comments MCH (test code = MCH) 30.6 pg 27.0-31.0 [facility]landsBebzdenMMKAMEVJGE5894-88-10 05:32:00 Test Item Value Reference Range Interpretation Comments MCV (test code = MCV) 92.6 80.0-94.0 [facility]landsQsucsnmKMBYUFUJJG1781-83-69 05:32:00 Test Item Value Reference Range Interpretation Comments Hct (test code = Hct) 45.9 42.0-54.0 [facility]landsYrvgykiRFJSYXDMYO5517-32-51 05:32:00 Test Item Value Reference Range Interpretation Comments Hgb (test code = Hgb) 15.2 14.0-18.0 [facility]landsLpdmtlwRHERFGYFMW7900-11-21 05:32:00 Test Item Value Reference Range Interpretation Comments RBC (test code = RBC) 4.95 4.70-6.10 [facility]landsXeiouyeDBQIUTQHAS8940-87-81 05:32:00 Test Item Value Reference Range Interpretation Comments WBC (test code = WBC) 15.2 3.7-10.4 [facility]landsRqzwpulEAQCIWYRJO1436-07-01 05:32:00 Test Item Value Reference Range Interpretation Comments MCHC (test code = MCHC) 33.1 32.0-36.0 [facility]landsCgzbytzTOAJXCEEHJ0747-84-90 05:32:00 Test Item Value Reference Range Interpretation Comments Monocytes # (test code 1.0 See_Comment [Aut omated message] The = Monocytes #) system which generated this result tra nsmitted reference range : <=0.8. The reference r tony was not used to int erpret this result as normal/abnormal . [facility]landsGxbwercUKXWJJYTVJ2285-40-67 05:32:00 Test Item Value Reference Range Interpretation Comments Basophils # (test code 0.1 See_Comment [Aut omated message] The = Basophils #) system which generated this result tra nsmitted reference range : <=0.2. The reference r tony was not used to int erpret this result as normal/abnormal . [facility]landsXvihihiFPYRKWBJWG4230-86-43 05:32:00 Test Item Value Reference Range Interpretation Comments Eosinophils (test code = 0.1 See_Comment [A utomated message] The Eosinophils) system which ge nerated this result tra nsmitted reference range : <=4.0. The reference r tony was not used to int erpret this result as normal/abnormal . [facility]landsOohgvbaMKGXKACVAR9787-51-64 05:32:00 Test Item Value Reference Range Interpretation Comments Basophils (test code = 0.5 See_Comment [Aut omated message] The Basophils) system which ge nerated this result tra nsmitted reference range : <=1.0. The reference r tony was not used to int erpret this result as normal/abnormal . [facility]landsSrsrhvmDTDBZSOKVM6015-46-62 05:32:00 Test Item Value Reference Range Interpretation Comments Segs-Bands # (test code = Segs-Bands #) 12.6 1.5-8.1 [facility]landsXfobqhtAVUVABUKCG5851-45-91 05:32:00 Test Item Value Reference Range Interpretation Comments Lymphocytes (test code = Lymphocytes) 10.2 20.0-40.0 [facility]landsNlqtksrHPNASMJAYN6489-70-56 05:32:00 Test Item Value Reference Range Interpretation Comments Monocytes (test code = Monocytes) 6.6 2.0-12.0 [facility]landsCzqrdilLVEWPSOBXL8706-43-32 05:32:00 Test Item Value Reference Range Interpretation Comments Lymphocytes # (test code = Lymphocytes 1.6 1.0-5.5 #) [facility]landsExwsjsaRUQYFRICLK0510-93-02 05:32:00 Test Item Value Reference Range Interpretation Comments Segs (test code = Segs) 82.6 45.0-75.[address] [facility]2016-01-06 05:32:00 Test Item Value Reference Range Interpretation Comments Lipase Lvl (test code = Lipase Lvl) 91 73-[address] [facility]2016-01-06 05:32:00 Test Item Value Reference Range Interpretation Comments B/C Ratio (test code = B/C Ratio) 9 6-[address] [facility]2016-01-06 05:32:00 Test Item Value Reference Range Interpretation Comments AGAP (test code = AGAP) 12.8 10.0-20.[address] [facility]2016-01-06 05:32:00 Test Item Value Reference Range Interpretation Comments Globulin (test code = Globulin) 3.7 2.0-4.[address] [facility]2016-01-06 05:32:00 Test Item Value Reference Range Interpretation Comments A/G Ratio (test code = A/G Ratio) 1.1 0.7-1.[address] [facility]2016-01-06 05:32:00 Test Item Value Reference Range Interpretation Comments eGFR (test code = eGFR) [address] [facility]2016-01-06 05:32:00 Test Item Value Reference Range Interpretation Comments Glucose Lvl (test code = Glucose Lvl) 114 70-[address] [facility]2016-01-06 05:32:00 Test Item Value Reference Range Interpretation Comments BUN (test code = BUN) 11 7-[address] [facility]2016-01-06 05:32:00 Test Item Value Reference Range Interpretation Comments AST (test code = AST) 23 See_Comment [Auto mated message] The system which ge nerated this result transmit ezequiel reference range : <=37. The reference range was not used to interpr et this result as grace l/abnormal. [facility]2016-01-06 05:32:00 Test Item Value Reference Range Interpretation Comments Alk Phos (test code = Alk Phos) 72 39-[address] [facility]2016-01-06 05:32:00 Test Item Value Reference Range Interpretation Comments ALT (test code = ALT) 34 See_Comment [Auto mated message] The system which ge nerated this result transmit ezequiel reference range : <=65. The reference range was not used to interpr et this result as grace l/abnormal. [facility]2016-01-06 05:32:00 Test Item Value Reference Range Interpretation Comments Chloride Lvl (test code = Chloride Lvl) 102 95-[address] [facility]2016-01-06 05:32:00 Test Item Value Reference Range Interpretation Comments Creatinine Lvl (test code = Creatinine 1.28 0.50-1.40 Lvl) [facility]2016-01-06 05:32:00 Test Item Value Reference Range Interpretation Comments Sodium Lvl (test code = Sodium Lvl) 135 135-[address] [facility]2016-01-06 05:32:00 Test Item Value Reference Range Interpretation Comments Potassium Lvl (test code = Potassium 3.8 3.5-5.1 Lvl) [facility]2016-01-06 05:32:00 Test Item Value Reference Range Interpretation Comments Bili Total (test code = Bili Total) 0.5 0.2-1.[address] [facility]2016-01-06 05:32:00 Test Item Value Reference Range Interpretation Comments Calcium Lvl (test code = Calcium Lvl) 8.5 8.5-10.[address] [facility]2016-01-06 05:32:00 Test Item Value Reference Range Interpretation Comments CO2 (test code = CO2) 24 24-[address] [facility]2016-01-06 05:32:00 Test Item Value Reference Range Interpretation Comments Albumin Lvl (test code = Albumin Lvl) 4.1 3.5-5.[address] [facility]2016-01-06 05:32:00 Test Item Value Reference Range Interpretation Comments Total Protein (test code = Total 7.8 6.4-8.4 Protein) [facility]landsSlmylsdIMVHGZSJDN3683-09-68 05:32:00 Test Item Value Reference Range Interpretation Comments Platelet (test code = Platelet) 196 133-450 [facility]landsEwygxqyBWPOKEGJNH7628-65-23 05:32:00 Test Item Value Reference Range Interpretation Comments RDW (test code = RDW) 12.4 11.5-14.5 [facility]landsTxtdkurCFYFUEVYGM2093-31-17 05:32:00 Test Item Value Reference Range Interpretation Comments MPV (test code = MPV) 10.1 7.4-10.4 [facility]landsFwfawxhAUJCGQNRYT1513-99-55 05:32:00 Test Item Value Reference Range Interpretation Comments MCH (test code = MCH) 30.6 pg 27.0-31.0 [facility]landsKctkxnkQQVPWFXIVB0276-13-19 05:32:00 Test Item Value Reference Range Interpretation Comments MCV (test code = MCV) 92.6 80.0-94.0 [facility]landsUcognffHXBYYAUFJT0505-53-04 05:32:00 Test Item Value Reference Range Interpretation Comments Hct (test code = Hct) 45.9 42.0-54.0 [facility]landsUbkkdfnJREOGMFXSC5579-83-79 05:32:00 Test Item Value Reference Range Interpretation Comments Hgb (test code = Hgb) 15.2 14.0-18.0 [facility]landsExnfhyqPSLMQQQEAJ0235-53-78 05:32:00 Test Item Value Reference Range Interpretation Comments RBC (test code = RBC) 4.95 4.70-6.10 [facility]landsSzcwcvcIAENCQSOPE5040-32-35 05:32:00 Test Item Value Reference Range Interpretation Comments WBC (test code = WBC) 15.2 3.7-10.4 [facility]landsQnprgciZZRJCHUGKK2033-20-46 05:32:00 Test Item Value Reference Range Interpretation Comments MCHC (test code = MCHC) 33.1 32.0-36.0 [facility]landsAsynpcsAXXXEPGPLZ9751-59-97 05:32:00 Test Item Value Reference Range Interpretation Comments Monocytes # (test code 1.0 See_Comment [Aut omated message] The = Monocytes #) system which generated this result tra nsmitted reference range : <=0.8. The reference r tony was not used to int erpret this result as normal/abnormal . [facility]landsYcugjajQRCZGIGXEZ0937-92-31 05:32:00 Test Item Value Reference Range Interpretation Comments Basophils # (test code 0.1 See_Comment [Aut omated message] The = Basophils #) system which generated this result tra nsmitted reference range : <=0.2. The reference r tony was not used to int erpret this result as normal/abnormal . [facility]landsLtzfyyyMREMRVOQFG5240-66-87 05:32:00 Test Item Value Reference Range Interpretation Comments Eosinophils (test code = 0.1 See_Comment [A utomated message] The Eosinophils) system which ge nerated this result tra nsmitted reference range : <=4.0. The reference r tony was not used to int erpret this result as normal/abnormal . [facility]landsQddgckqIUPNDNMDOS9810-36-95 05:32:00 Test Item Value Reference Range Interpretation Comments Basophils (test code = 0.5 See_Comment [Aut omated message] The Basophils) system which ge nerated this result tra nsmitted reference range : <=1.0. The reference r tony was not used to int erpret this result as normal/abnormal . [facility]landsPvayqfxBMQUTFUAGP9223-24-62 05:32:00 Test Item Value Reference Range Interpretation Comments Segs-Bands # (test code = Segs-Bands #) 12.6 1.5-8.1 [facility]landsVikdskuGJJKGYILTP6458-63-22 05:32:00 Test Item Value Reference Range Interpretation Comments Lymphocytes (test code = Lymphocytes) 10.2 20.0-40.0 [facility]landsWkciczzWHVEIHPJTI0345-62-35 05:32:00 Test Item Value Reference Range Interpretation Comments Monocytes (test code = Monocytes) 6.6 2.0-12.0 [facility]landsFzqkocaTMYYNXANWQ2135-90-64 05:32:00 Test Item Value Reference Range Interpretation Comments Lymphocytes # (test code = Lymphocytes 1.6 1.0-5.5 #) [facility]2015-11-19 05:53:00 Test Item Value Reference Range Interpretation Comments Bili Direct (test code 0.1 See_Comment [Aut omated message] The = Bili Direct) system which generated this result tra nsmitted reference range : <=0.3. The reference r tony was not used to int erpret this result as grace l/abnormal. [facility]2015-11-19 05:53:00 Test Item Value Reference Range Interpretation Comments Bili Total (test code = Bili Total) 0.4 0.2-1.[address] [facility]2015-11-19 05:53:00 Test Item Value Reference Range Interpretation Comments eGFR (test code = eGFR) [address] [facility]2015-11-19 05:53:00 Test Item Value Reference Range Interpretation Comments Potassium Lvl (test code = Potassium 4.4 3.5-5.1 Lvl) [facility]2015-11-19 05:53:00 Test Item Value Reference Range Interpretation Comments Sodium Lvl (test code = Sodium Lvl) 145 135-[address] [facility]2015-11-19 05:53:00 Test Item Value Reference Range Interpretation Comments Chloride Lvl (test code = Chloride Lvl) 110 95-[address] [facility]2015-11-19 05:53:00 Test Item Value Reference Range Interpretation Comments Glucose Lvl (test code = Glucose Lvl) 75 70-[address] [facility]2015-11-19 05:53:00 Test Item Value Reference Range Interpretation Comments Creatinine Lvl (test code = Creatinine 1.08 0.50-1.40 Lvl) [facility]2015-11-19 05:53:00 Test Item Value Reference Range Interpretation Comments BUN (test code = BUN) 12 7-[address] [facility]2015-11-19 05:53:00 Test Item Value Reference Range Interpretation Comments AGAP (test code = AGAP) 8.4 10.0-20.[address] [facility]2015-11-19 05:53:00 Test Item Value Reference Range Interpretation Comments CO2 (test code = CO2) 31 24-[address] [facility]2015-11-19 05:53:00 Test Item Value Reference Range Interpretation Comments Calcium Lvl (test code = Calcium Lvl) 8.9 8.5-10.[address] [facility]2015-11-19 05:53:00 Test Item Value Reference Range Interpretation Comments AST (test code = AST) 15 See_Comment [Auto mated message] The system which ge nerated this result transmit ezequiel reference range : <=37. The reference range was not used to interpr et this result as grace l/abnormal. [facility]2015-11-19 05:53:00 Test Item Value Reference Range Interpretation Comments A/G Ratio (test code = A/G Ratio) 1.2 0.7-1.[address] [facility]2015-11-19 05:53:00 Test Item Value Reference Range Interpretation Comments Alk Phos (test code = Alk Phos) 61 39-[address] [facility]2015-11-19 05:53:00 Test Item Value Reference Range Interpretation Comments ALT (test code = ALT) 34 See_Comment [Auto mated message] The system which ge nerated this result transmit ezequiel reference range : <=65. The reference range was not used to interpr et this result as grace l/abnormal. [facility]2015-11-19 05:53:00 Test Item Value Reference Range Interpretation Comments Albumin Lvl (test code = Albumin Lvl) 3.9 3.5-5.[address] [facility]2015-11-19 05:53:00 Test Item Value Reference Range Interpretation Comments Total Protein (test code = Total 7.1 6.4-8.4 Protein) [facility]2015-11-19 05:53:00 Test Item Value Reference Range Interpretation Comments B/C Ratio (test code = B/C Ratio) 11 6-[address] [facility]2015-11-19 05:53:00 Test Item Value Reference Range Interpretation Comments Globulin (test code = Globulin) 3.2 2.0-4.0 [facility]XuoognbFMNKUXSQCE2552-93-64 05:53:00 Test Item Value Reference Range Interpretation Comments Basophils # (test code 0.1 See_Comment [Aut omated message] The = Basophils #) system which generated this result tra nsmitted reference range : <=0.2. The reference r tony was not used to int erpret this result as normal/abnormal . [facility]landsEwwddwbIYNQZSCRGZ1087-91-24 05:53:00 Test Item Value Reference Range Interpretation Comments Eosinophils # (test code 0.8 See_Comment [A utomated message] The = Eosinophils #) system whic h generated this result tra nsmitted reference range : <=0.5. The reference r tony was not used to int erpret this result as normal/abnormal . [facility]landsPeiqduwMVSQQSZUBU4867-46-98 05:53:00 Test Item Value Reference Range Interpretation Comments Lymphocytes # (test code = Lymphocytes 3.3 1.0-5.5 #) [facility]landsAiwbzcwNSDLKTXFWO0939-53-98 05:53:00 Test Item Value Reference Range Interpretation Comments Segs-Bands # (test code = Segs-Bands #) 6.4 1.5-8.1 [facility]landsCilmwfkEDIGTEBQWO8808-86-50 05:53:00 Test Item Value Reference Range Interpretation Comments Basophils (test code = 0.6 See_Comment [Aut omated message] The Basophils) system which ge nerated this result tra nsmitted reference range : <=1.0. The reference r tony was not used to int erpret this result as normal/abnormal . [facility]landsUdnrobmIVGISSHCGN1321-97-00 05:53:00 Test Item Value Reference Range Interpretation Comments Eosinophils (test code = 7.4 See_Comment [A utomated message] The Eosinophils) system which ge nerated this result tra nsmitted reference range : <=4.0. The reference r tony was not used to int erpret this result as normal/abnormal . [facility]landsLxbrksgCUVIVWLGXL7399-05-14 05:53:00 Test Item Value Reference Range Interpretation Comments Monocytes # (test code 0.6 See_Comment [Aut omated message] The = Monocytes #) system which generated this result tra nsmitted reference range : <=0.8. The reference r tony was not used to int erpret this result as normal/abnormal . [facility]landsKahiqlmJCWGPOOUQP3552-98-38 05:53:00 Test Item Value Reference Range Interpretation Comments Segs (test code = Segs) 57.4 45.0-75.0 [facility]landsXwljrywWTKNGNQAKB9965-01-34 05:53:00 Test Item Value Reference Range Interpretation Comments Lymphocytes (test code = Lymphocytes) 29.2 20.0-40.0 [facility]landsVtyqcbuPPZOYVFWGQ5675-85-15 05:53:00 Test Item Value Reference Range Interpretation Comments Monocytes (test code = Monocytes) 5.4 2.0-12.0 [facility]landsQqgzsivKMXXOLSIHQ2537-34-80 05:53:00 Test Item Value Reference Range Interpretation Comments MCV (test code = MCV) 93.6 80.0-94.0 [facility]landsVrbxgzuZNWNBNXJGZ9469-73-67 05:53:00 Test Item Value Reference Range Interpretation Comments Hct (test code = Hct) 43.4 42.0-54.0 [facility]landsNdgscjbUYPIGRKTMB7137-05-09 05:53:00 Test Item Value Reference Range Interpretation Comments Hgb (test code = Hgb) 14.2 14.0-18.0 [facility]landsXrmzbnuZPQSDJCDBG6190-51-45 05:53:00 Test Item Value Reference Range Interpretation Comments RBC (test code = RBC) 4.64 4.70-6.10 [facility]landsMqkioriNNXVPYBXCO5450-65-95 05:53:00 Test Item Value Reference Range Interpretation Comments MCHC (test code = MCHC) 32.8 32.0-36.0 [facility]landsMusxykcSSBDBEYQVY7447-29-54 05:53:00 Test Item Value Reference Range Interpretation Comments MCH (test code = MCH) 30.7 pg 27.0-31.0 [facility]landsOdllxnzSTQEVAKMZM1554-95-86 05:53:00 Test Item Value Reference Range Interpretation Comments RDW (test code = RDW) 13.1 11.5-14.5 [facility]landsWhlbrdhRGUDEJDEWU3181-70-60 05:53:00 Test Item Value Reference Range Interpretation Comments MPV (test code = MPV) 9.4 7.4-10.4 [facility]landsDvcocwfLAVIOYFAKS5578-12-76 05:53:00 Test Item Value Reference Range Interpretation Comments Platelet (test code = Platelet) 220 133-450 [facility]landsVhpjkyyXDTDBHVFPS2123-86-69 05:53:00 Test Item Value Reference Range Interpretation Comments WBC (test code = WBC) 11.1 3.7-10.4 [facility]landsDmkmeyeTKBORFLEVS0063-02-95 05:53:00 Test Item Value Reference Range Interpretation Comments PT (test code = PT) 13.5 s 12.0-14.7 [facility]landsHxloarbQVUPUPUEOM1177-36-30 05:53:00 Test Item Value Reference Range Interpretation Comments INR (test code = INR) 1.00 0.85-1.17 [facility]LETWKZXQA2598[facility]76-54 05:53:00 Test Item Value Reference Range Interpretation Comments PTT (test code = PTT) 33.4 s 22.9-35.8 [facility]xs[facility]bjLHZBJZJFHO1111-17-96 05:53:00 Test Item Value Reference Range Interpretation Comments CDC HIV 4th GEN (test Negative (04/20/15 11:53 code = CDC HIV 4th PM) GEN) [place] [id number] 05:53:00 Test Item Value Reference Range Interpretation Comments Salicylate Lvl (test no gt See_Comment [Autom ated message] The code = Salicylate Lvl) syste m which generated this result tra nsmitted reference range : <=30.0. The reference r tony was not used to int erpret this result as normal/abnormal . [place] [id number] 05:53:00 Test Item Value Reference Range Interpretation Comments Acetaminoph Lvl (test code = no gt 10-20 Acetaminoph Lvl) [facility]hyper[facility] [id number] 05:53:00 Test Item Value Reference Range Interpretation Comments Bili Direct (test code 0.1 See_Comment [Aut omated message] The = Bili Direct) system which generated this result tra nsmitted reference range : <=0.3. The reference r tony was not used to int erpret this result as grace l/abnormal. [facility] [id number] 05:53:00 Test Item Value Reference Range Interpretation Comments Bili Total (test code = Bili Total) 0.4 0.2-1.[address] [facility]2015-11-19 05:53:00 Test Item Value Reference Range Interpretation Comments eGFR (test code = eGFR) [address] [facility]2015-11-19 05:53:00 Test Item Value Reference Range Interpretation Comments Potassium Lvl (test code = Potassium 4.4 3.5-5.1 Lvl) [facility]2015-11-19 05:53:00 Test Item Value Reference Range Interpretation Comments Sodium Lvl (test code = Sodium Lvl) 145 135-[address] [facility]2015-11-19 05:53:00 Test Item Value Reference Range Interpretation Comments Chloride Lvl (test code = Chloride Lvl) 110 95-[address] [facility]2015-11-19 05:53:00 Test Item Value Reference Range Interpretation Comments Glucose Lvl (test code = Glucose Lvl) 75 70-[address] [facility]2015-11-19 05:53:00 Test Item Value Reference Range Interpretation Comments Creatinine Lvl (test code = Creatinine 1.08 0.50-1.40 Lvl) [facility]2015-11-19 05:53:00 Test Item Value Reference Range Interpretation Comments BUN (test code = BUN) 12 7-[address] [facility]2015-11-19 05:53:00 Test Item Value Reference Range Interpretation Comments AGAP (test code = AGAP) 8.4 10.0-20.[address] [facility]2015-11-19 05:53:00 Test Item Value Reference Range Interpretation Comments CO2 (test code = CO2) 31 24-[address] [facility]2015-11-19 05:53:00 Test Item Value Reference Range Interpretation Comments Calcium Lvl (test code = Calcium Lvl) 8.9 8.5-10.[address] [facility]2015-11-19 05:53:00 Test Item Value Reference Range Interpretation Comments AST (test code = AST) 15 See_Comment [Auto mated message] The system which ge nerated this result transmit ezequiel reference range : <=37. The reference range was not used to interpr et this result as grace l/abnormal. [facility]2015-11-19 05:53:00 Test Item Value Reference Range Interpretation Comments A/G Ratio (test code = A/G Ratio) 1.2 0.7-1.[address] [facility]2015-11-19 05:53:00 Test Item Value Reference Range Interpretation Comments Alk Phos (test code = Alk Phos) 61 39-[address] [facility]2015-11-19 05:53:00 Test Item Value Reference Range Interpretation Comments ALT (test code = ALT) 34 See_Comment [Auto mated message] The system which ge nerated this result transmit ezequiel reference range : <=65. The reference range was not used to interpr et this result as grace l/abnormal. [facility]2015-11-19 05:53:00 Test Item Value Reference Range Interpretation Comments Albumin Lvl (test code = Albumin Lvl) 3.9 3.5-5.[address] [facility]2015-11-19 05:53:00 Test Item Value Reference Range Interpretation Comments Total Protein (test code = Total 7.1 6.4-8.4 Protein) [facility]2015-11-19 05:53:00 Test Item Value Reference Range Interpretation Comments B/C Ratio (test code = B/C Ratio) 11 6-[address] [facility]2015-11-19 05:53:00 Test Item Value Reference Range Interpretation Comments Globulin (test code = Globulin) 3.2 2.0-4.0 [facility]landsUzfoewyLATEUPEOGJ6572-90-37 05:53:00 Test Item Value Reference Range Interpretation Comments Basophils # (test code 0.1 See_Comment [Aut omated message] The = Basophils #) system which generated this result tra nsmitted reference range : <=0.2. The reference r tony was not used to int erpret this result as normal/abnormal . [facility]landsPlnpcxvIZXGCLJLET8649-17-52 05:53:00 Test Item Value Reference Range Interpretation Comments Eosinophils # (test code 0.8 See_Comment [A utomated message] The = Eosinophils #) system whic h generated this result tra nsmitted reference range : <=0.5. The reference r tony was not used to int erpret this result as normal/abnormal . [facility]landsYekyfluTRGWHDERGO1451-30-86 05:53:00 Test Item Value Reference Range Interpretation Comments Lymphocytes # (test code = Lymphocytes 3.3 1.0-5.5 #) [facility]landsTexwpxaUWSVKRRJXN1082-98-96 05:53:00 Test Item Value Reference Range Interpretation Comments Segs-Bands # (test code = Segs-Bands #) 6.4 1.5-8.1 [facility]landsTwvdhcbPUFBGGVEJV2217-85-48 05:53:00 Test Item Value Reference Range Interpretation Comments Basophils (test code = 0.6 See_Comment [Aut omated message] The Basophils) system which ge nerated this result tra nsmitted reference range : <=1.0. The reference r tony was not used to int erpret this result as normal/abnormal . [facility]landsAobuxnzDEPARLUDDQ3832-91-48 05:53:00 Test Item Value Reference Range Interpretation Comments Eosinophils (test code = 7.4 See_Comment [A utomated message] The Eosinophils) system which ge nerated this result tra nsmitted reference range : <=4.0. The reference r tony was not used to int erpret this result as normal/abnormal . [facility]landsKqtfpvjTGEHMZPPHG2627-45-70 05:53:00 Test Item Value Reference Range Interpretation Comments Monocytes # (test code 0.6 See_Comment [Aut omated message] The = Monocytes #) system which generated this result tra nsmitted reference range : <=0.8. The reference r tony was not used to int erpret this result as normal/abnormal . [facility]landsKjotkkrWUIEWMTWBJ5940-43-80 05:53:00 Test Item Value Reference Range Interpretation Comments Segs (test code = Segs) 57.4 45.0-75.0 [facility]landsQvbowayURREHYPEEI9854-48-16 05:53:00 Test Item Value Reference Range Interpretation Comments Lymphocytes (test code = Lymphocytes) 29.2 20.0-40.0 [facility]landsPivlbdeAEUGARTLFC2419-22-19 05:53:00 Test Item Value Reference Range Interpretation Comments Monocytes (test code = Monocytes) 5.4 2.0-12.0 [facility]landsPwplcukNYVLSMEVUX5757-64-58 05:53:00 Test Item Value Reference Range Interpretation Comments MCV (test code = MCV) 93.6 80.0-94.0 [facility]landsVkleyzsVRBBCSFMEE4791-86-62 05:53:00 Test Item Value Reference Range Interpretation Comments Hct (test code = Hct) 43.4 42.0-54.0 [facility]landsPflxomzJADXAYGTUO3736-92-37 05:53:00 Test Item Value Reference Range Interpretation Comments Hgb (test code = Hgb) 14.2 14.0-18.0 [facility]landsGamupxrKFVGGSTNZS8691-42-81 05:53:00 Test Item Value Reference Range Interpretation Comments RBC (test code = RBC) 4.64 4.70-6.10 [facility]landsMphydtzXHSLZGMQCY7075-95-22 05:53:00 Test Item Value Reference Range Interpretation Comments MCHC (test code = MCHC) 32.8 32.0-36.0 [facility]landsCgufumrNYOETAWQDU7456-40-69 05:53:00 Test Item Value Reference Range Interpretation Comments MCH (test code = MCH) 30.7 pg 27.0-31.0 [facility]landsEktvlocSZBDVLDHRJ3624-24-35 05:53:00 Test Item Value Reference Range Interpretation Comments RDW (test code = RDW) 13.1 11.5-14.5 [facility]landsUkrslpwMPDSINLLQL6705-39-73 05:53:00 Test Item Value Reference Range Interpretation Comments MPV (test code = MPV) 9.4 7.4-10.4 [facility]landsZnfwjpoUDMSEAFNSZ5081-63-71 05:53:00 Test Item Value Reference Range Interpretation Comments Platelet (test code = Platelet) 220 133-450 [facility]landsXienrikYNTLCJLMHS9848-86-37 05:53:00 Test Item Value Reference Range Interpretation Comments WBC (test code = WBC) 11.1 3.7-10.4 [facility]landsOmccfgjIADQYMSIMY5823-28-10 05:53:00 Test Item Value Reference Range Interpretation Comments PT (test code = PT) 13.5 s 12.0-14.7 [facility]landsXslopcrBEFIMKKJVH9838-48-04 05:53:00 Test Item Value Reference Range Interpretation Comments INR (test code = INR) 1.00 0.85-1.17 [facility]landsYnvxscpJMVPVEEWFU7821-11-80 05:53:00 Test Item Value Reference Range Interpretation Comments PTT (test code = PTT) 33.4 s 22.9-35.8 [facility] HospitalMiemuriJEJTUTROHS3696-06-36 05:53:00 Test Item Value Reference Range Interpretation Comments CDC HIV 4th GEN (test Negative (04/20/15 11:53 code = CDC HIV 4th PM) GEN) [place] [id number] 05:53:00 Test Item Value Reference Range Interpretation Comments Salicylate Lvl (test no gt See_Comment [Autom ated message] The code = Salicylate Lvl) syste m which generated this result tra nsmitted reference range : <=30.0. The reference r tony was not used to int erpret this result as normal/abnormal . [place] [id number] 05:53:00 Test Item Value Reference Range Interpretation Comments Acetaminoph Lvl (test code = no gt 10-20 Acetaminoph Lvl) [facility]2015-11-19 05:53:00 Test Item Value Reference Range Interpretation Comments Bili Direct (test code 0.1 See_Comment [Aut omated message] The = Bili Direct) system which generated this result tra nsmitted reference range : <=0.3. The reference r tony was not used to int erpret this result as grace l/abnormal. [facility]2015-11-19 05:53:00 Test Item Value Reference Range Interpretation Comments Bili Total (test code = Bili Total) 0.4 0.2-1.[address] [facility]2015-11-19 05:53:00 Test Item Value Reference Range Interpretation Comments eGFR (test code = eGFR) [address] [facility]2015-11-19 05:53:00 Test Item Value Reference Range Interpretation Comments Potassium Lvl (test code = Potassium 4.4 3.5-5.1 Lvl) [facility]2015-11-19 05:53:00 Test Item Value Reference Range Interpretation Comments Sodium Lvl (test code = Sodium Lvl) 145 135-[address] [facility]2015-11-19 05:53:00 Test Item Value Reference Range Interpretation Comments Chloride Lvl (test code = Chloride Lvl) 110 95-[address] [facility]2015-11-19 05:53:00 Test Item Value Reference Range Interpretation Comments Glucose Lvl (test code = Glucose Lvl) 75 70-[address] [facility]2015-11-19 05:53:00 Test Item Value Reference Range Interpretation Comments Creatinine Lvl (test code = Creatinine 1.08 0.50-1.40 Lvl) [facility]2015-11-19 05:53:00 Test Item Value Reference Range Interpretation Comments BUN (test code = BUN) 12 7-[address] [facility]2015-11-19 05:53:00 Test Item Value Reference Range Interpretation Comments AGAP (test code = AGAP) 8.4 10.0-20.[address] [facility]2015-11-19 05:53:00 Test Item Value Reference Range Interpretation Comments CO2 (test code = CO2) 31 24-[address] [facility]2015-11-19 05:53:00 Test Item Value Reference Range Interpretation Comments Calcium Lvl (test code = Calcium Lvl) 8.9 8.5-10.[address] [facility]2015-11-19 05:53:00 Test Item Value Reference Range Interpretation Comments AST (test code = AST) 15 See_Comment [Auto mated message] The system which ge nerated this result transmit ezequiel reference range : <=37. The reference range was not used to interpr et this result as grace l/abnormal. [facility]2015-11-19 05:53:00 Test Item Value Reference Range Interpretation Comments A/G Ratio (test code = A/G Ratio) 1.2 0.7-1.[address] [facility]2015-11-19 05:53:00 Test Item Value Reference Range Interpretation Comments Alk Phos (test code = Alk Phos) 61 39-[address] [facility]2015-11-19 05:53:00 Test Item Value Reference Range Interpretation Comments ALT (test code = ALT) 34 See_Comment [Auto mated message] The system which ge nerated this result transmit ezequiel reference range : <=65. The reference range was not used to interpr et this result as grace l/abnormal. [facility]2015-11-19 05:53:00 Test Item Value Reference Range Interpretation Comments Albumin Lvl (test code = Albumin Lvl) 3.9 3.5-5.[address] [facility]2015-11-19 05:53:00 Test Item Value Reference Range Interpretation Comments Total Protein (test code = Total 7.1 6.4-8.4 Protein) [facility]2015-11-19 05:53:00 Test Item Value Reference Range Interpretation Comments B/C Ratio (test code = B/C Ratio) 11 6-[address] [facility]2015-11-19 05:53:00 Test Item Value Reference Range Interpretation Comments Globulin (test code = Globulin) 3.2 2.0-4.0 [facility]landsWtohlueZFIZQNELCX7865-10-82 05:53:00 Test Item Value Reference Range Interpretation Comments Basophils # (test code 0.1 See_Comment [Aut omated message] The = Basophils #) system which generated this result tra nsmitted reference range : <=0.2. The reference r tony was not used to int erpret this result as normal/abnormal . [facility]landsQcynmqtNAHYYEPDJV9160-14-07 05:53:00 Test Item Value Reference Range Interpretation Comments Eosinophils # (test code 0.8 See_Comment [A utomated message] The = Eosinophils #) system whic h generated this result tra nsmitted reference range : <=0.5. The reference r tony was not used to int erpret this result as normal/abnormal . [facility]landsUphyrikFQPCOARJFD8643-72-49 05:53:00 Test Item Value Reference Range Interpretation Comments Lymphocytes # (test code = Lymphocytes 3.3 1.0-5.5 #) [facility]landsVzdkgslQHGNYKUAOL5242-74-71 05:53:00 Test Item Value Reference Range Interpretation Comments Segs-Bands # (test code = Segs-Bands #) 6.4 1.5-8.1 [facility]landsGhrcofkXJBUSXALIZ6165-27-99 05:53:00 Test Item Value Reference Range Interpretation Comments Basophils (test code = 0.6 See_Comment [Aut omated message] The Basophils) system which ge nerated this result tra nsmitted reference range : <=1.0. The reference r tony was not used to int erpret this result as normal/abnormal . [facility]landsQucighxOARDTWDRIR7074-23-39 05:53:00 Test Item Value Reference Range Interpretation Comments Eosinophils (test code = 7.4 See_Comment [A utomated message] The Eosinophils) system which ge nerated this result tra nsmitted reference range : <=4.0. The reference r tony was not used to int erpret this result as normal/abnormal . [facility]landsAidkaymPNECAOYLGN1214-69-74 05:53:00 Test Item Value Reference Range Interpretation Comments Monocytes # (test code 0.6 See_Comment [Aut omated message] The = Monocytes #) system which generated this result tra nsmitted reference range : <=0.8. The reference r tony was not used to int erpret this result as normal/abnormal . [facility]landsOscjgciRXBSECHEAX6884-05-29 05:53:00 Test Item Value Reference Range Interpretation Comments Segs (test code = Segs) 57.4 45.0-75.0 [facility]landsBgumzgqMZJWXCGHOR9765-56-75 05:53:00 Test Item Value Reference Range Interpretation Comments Lymphocytes (test code = Lymphocytes) 29.2 20.0-40.0 [facility]landsJcfhcvzZJKVICCLNJ0257-65-44 05:53:00 Test Item Value Reference Range Interpretation Comments Monocytes (test code = Monocytes) 5.4 2.0-12.0 [facility]landsBnenpkaGCGQNQCSKU4290-61-20 05:53:00 Test Item Value Reference Range Interpretation Comments MCV (test code = MCV) 93.6 80.0-94.0 [facility]UyztpjgPSGTTJUPBU4174-79-22 05:53:00 Test Item Value Reference Range Interpretation Comments Hct (test code = Hct) 43.4 42.0-54.0 [facility]landsWutoomiLDNWRWCKAX3168-55-29 05:53:00 Test Item Value Reference Range Interpretation Comments Hgb (test code = Hgb) 14.2 14.0-18.0 [facility]landsGczisfyBRDYNMHOZM0567-99-69 05:53:00 Test Item Value Reference Range Interpretation Comments RBC (test code = RBC) 4.64 4.70-6.10 [facility]landsVoqmimiMSESQNKMDK1902-58-85 05:53:00 Test Item Value Reference Range Interpretation Comments MCHC (test code = MCHC) 32.8 32.0-36.0 [facility]landsUznnufxRJKADNYHKZ5339-42-01 05:53:00 Test Item Value Reference Range Interpretation Comments MCH (test code = MCH) 30.7 pg 27.0-31.0 [facility]landsNjthiyuRXVNNHLXRS3642-54-74 05:53:00 Test Item Value Reference Range Interpretation Comments RDW (test code = RDW) 13.1 11.5-14.5 [facility]landsHpkomssQDDMOSXMDF3106-96-27 05:53:00 Test Item Value Reference Range Interpretation Comments MPV (test code = MPV) 9.4 7.4-10.4 [facility]landsMravdesTHZGWLFETL6137-73-87 05:53:00 Test Item Value Reference Range Interpretation Comments Platelet (test code = Platelet) 220 133-450 [facility]landsPofwgtmSJECIIPRAK2791-44-34 05:53:00 Test Item Value Reference Range Interpretation Comments WBC (test code = WBC) 11.1 3.7-10.4 [facility]landsCirpcgxKHBELRYKYE1365-46-15 05:53:00 Test Item Value Reference Range Interpretation Comments PT (test code = PT) 13.5 s 12.0-14.7 [facility]landsYeexpasXREHGEYPYD1062-13-95 05:53:00 Test Item Value Reference Range Interpretation Comments INR (test code = INR) 1.00 0.85-1.17 [facility]BktakxnDFTWPKUMNF6259-95-01 05:53:00 Test Item Value Reference Range Interpretation Comments PTT (test code = PTT) 33.4 s 22.9-35.8 [facility] HospitalTqzkucgHORRBLFHCC4227-11-05 05:53:00 Test Item Value Reference Range Interpretation Comments CDC HIV 4th GEN (test Negative (04/20/15 11:53 code = CDC HIV 4th PM) GEN) [facility] HospitalBjdnmvmNWZXAWVLUY6239-45-43 05:53:00 Test Item Value Reference Range Interpretation Comments Salicylate Lvl (test no gt See_Comment [Autom ated message] The code = Salicylate Lvl) syste m which generated this result tra nsmitted reference range : <=30.0. The reference r tony was not used to int erpret this result as normal/abnormal . [place] [id number] 05:53:00 Test Item Value Reference Range Interpretation Comments Acetaminoph Lvl (test code = no gt 10-20 Acetaminoph Lvl) [facility] HospitalhyperWALLET Systems [id number] 05:53:00 Test Item Value Reference Range Interpretation Comments Bili Direct (test code 0.1 See_Comment [Aut omated message] The = Bili Direct) system which generated this result tra nsmitted reference range : <=0.3. The reference r tony was not used to int erpret this result as grace l/abnormal. [facility]hyperWALLET Systems [id number] 05:53:00 Test Item Value Reference Range Interpretation Comments Bili Total (test code = Bili Total) 0.4 0.2-1.[address] [facility]2015-11-19 05:53:00 Test Item Value Reference Range Interpretation Comments eGFR (test code = eGFR) [address] [facility]2015-11-19 05:53:00 Test Item Value Reference Range Interpretation Comments Potassium Lvl (test code = Potassium 4.4 3.5-5.1 Lvl) [facility]2015-11-19 05:53:00 Test Item Value Reference Range Interpretation Comments Sodium Lvl (test code = Sodium Lvl) 145 135-145 [facility]ENTERWOBDM7628-17-18 05:53:00 Test Item Value Reference Range Interpretation Comments Chloride Lvl (test code = Chloride Lvl) 110 95-[address] [facility]2015-11-19 05:53:00 Test Item Value Reference Range Interpretation Comments Glucose Lvl (test code = Glucose Lvl) 75 70-[address] [facility]2015-11-19 05:53:00 Test Item Value Reference Range Interpretation Comments Creatinine Lvl (test code = Creatinine 1.08 0.50-1.40 Lvl) [facility]2015-11-19 05:53:00 Test Item Value Reference Range Interpretation Comments BUN (test code = BUN) 12 7-[address] [facility]2015-11-19 05:53:00 Test Item Value Reference Range Interpretation Comments AGAP (test code = AGAP) 8.4 10.0-20.[address] [facility]2015-11-19 05:53:00 Test Item Value Reference Range Interpretation Comments CO2 (test code = CO2) 31 24-[address] [facility]2015-11-19 05:53:00 Test Item Value Reference Range Interpretation Comments Calcium Lvl (test code = Calcium Lvl) 8.9 8.5-10.[address] [facility]2015-11-19 05:53:00 Test Item Value Reference Range Interpretation Comments AST (test code = AST) 15 See_Comment [Auto mated message] The system which ge nerated this result transmit ezequiel reference range : <=37. The reference range was not used to interpr et this result as grcae l/abnormal. [facility]2015-11-19 05:53:00 Test Item Value Reference Range Interpretation Comments A/G Ratio (test code = A/G Ratio) 1.2 0.7-1.[address] [facility]2015-11-19 05:53:00 Test Item Value Reference Range Interpretation Comments Alk Phos (test code = Alk Phos) 61 39-[address] [facility]2015-11-19 05:53:00 Test Item Value Reference Range Interpretation Comments ALT (test code = ALT) 34 See_Comment [Auto mated message] The system which ge nerated this result transmit ezequiel reference range : <=65. The reference range was not used to interpr et this result as grace l/abnormal. [facility]2015-11-19 05:53:00 Test Item Value Reference Range Interpretation Comments Albumin Lvl (test code = Albumin Lvl) 3.9 3.5-5.[address] [facility]2015-11-19 05:53:00 Test Item Value Reference Range Interpretation Comments Total Protein (test code = Total 7.1 6.4-8.4 Protein) [facility]2015-11-19 05:53:00 Test Item Value Reference Range Interpretation Comments B/C Ratio (test code = B/C Ratio) 11 6-[address] [facility]2015-11-19 05:53:00 Test Item Value Reference Range Interpretation Comments Globulin (test code = Globulin) 3.2 2.0-4.0 [facility]landsRmrpzjnZOREBBXOIB3025-06-05 05:53:00 Test Item Value Reference Range Interpretation Comments Basophils # (test code 0.1 See_Comment [Aut omated message] The = Basophils #) system which generated this result tra nsmitted reference range : <=0.2. The reference r tony was not used to int erpret this result as normal/abnormal . [facility]landsMdjfqpoTDSBCFTOCZ9916-06-55 05:53:00 Test Item Value Reference Range Interpretation Comments Eosinophils # (test code 0.8 See_Comment [A utomated message] The = Eosinophils #) system whic h generated this result tra nsmitted reference range : <=0.5. The reference r tony was not used to int erpret this result as normal/abnormal . [facility]landsWsdugtnEGTHHFFFDL9039-04-64 05:53:00 Test Item Value Reference Range Interpretation Comments Lymphocytes # (test code = Lymphocytes 3.3 1.0-5.5 #) [facility]landsSheahkuBZOQOGQLTU2059-64-34 05:53:00 Test Item Value Reference Range Interpretation Comments Segs-Bands # (test code = Segs-Bands #) 6.4 1.5-8.1 [facility]landsZzcmvukONRCPHIWKX2561-40-08 05:53:00 Test Item Value Reference Range Interpretation Comments Basophils (test code = 0.6 See_Comment [Aut omated message] The Basophils) system which ge nerated this result tra nsmitted reference range : <=1.0. The reference r tony was not used to int erpret this result as normal/abnormal . [facility]landsNbugfybUDUCVRFLAP6386-63-70 05:53:00 Test Item Value Reference Range Interpretation Comments Eosinophils (test code = 7.4 See_Comment [A utomated message] The Eosinophils) system which ge nerated this result tra nsmitted reference range : <=4.0. The reference r tony was not used to int erpret this result as normal/abnormal . [facility]landsYimsmweZOCKMFQBRM7571-44-83 05:53:00 Test Item Value Reference Range Interpretation Comments Monocytes # (test code 0.6 See_Comment [Aut omated message] The = Monocytes #) system which generated this result tra nsmitted reference range : <=0.8. The reference r tony was not used to int erpret this result as normal/abnormal . [facility]landsVbzrjrgXPNMIMKTFV3770-30-69 05:53:00 Test Item Value Reference Range Interpretation Comments Segs (test code = Segs) 57.4 45.0-75.0 [facility]landsSuazzdhATUCUDKYUX8890-47-19 05:53:00 Test Item Value Reference Range Interpretation Comments Lymphocytes (test code = Lymphocytes) 29.2 20.0-40.0 [facility]landsFudorfjKCLQIETMNJ5801-23-86 05:53:00 Test Item Value Reference Range Interpretation Comments Monocytes (test code = Monocytes) 5.4 2.0-12.0 [facility]landsWcgfrhxGWCAGQMNML3003-81-89 05:53:00 Test Item Value Reference Range Interpretation Comments MCV (test code = MCV) 93.6 80.0-94.0 [facility]landsXtymmcqWHMONJIEFF7672-44-89 05:53:00 Test Item Value Reference Range Interpretation Comments Hct (test code = Hct) 43.4 42.0-54.0 [facility]landsRckyqygEXFWUXBSVD0651-49-38 05:53:00 Test Item Value Reference Range Interpretation Comments Hgb (test code = Hgb) 14.2 14.0-18.0 [facility]landsDqfhtgtWWKYCKJNMM4480-50-29 05:53:00 Test Item Value Reference Range Interpretation Comments RBC (test code = RBC) 4.64 4.70-6.10 [facility]landsIzkzkraQCAKTHOGOH5570-99-09 05:53:00 Test Item Value Reference Range Interpretation Comments MCHC (test code = MCHC) 32.8 32.0-36.0 [facility]landsQnutiodFNSWAWGEJI8073-95-21 05:53:00 Test Item Value Reference Range Interpretation Comments MCH (test code = MCH) 30.7 pg 27.0-31.0 [facility]landsWpgnyqxMFXWNVZXGI0500-26-12 05:53:00 Test Item Value Reference Range Interpretation Comments RDW (test code = RDW) 13.1 11.5-14.5 [facility]landsRszifxtXIOZWHDBMX7585-85-52 05:53:00 Test Item Value Reference Range Interpretation Comments MPV (test code = MPV) 9.4 7.4-10.4 [facility]landsQmhikwpHPNNWNOQMF8191-40-42 05:53:00 Test Item Value Reference Range Interpretation Comments Platelet (test code = Platelet) 220 133-450 [facility]landsTbtnuaoXHISYBENVJ3792-33-84 05:53:00 Test Item Value Reference Range Interpretation Comments WBC (test code = WBC) 11.1 3.7-10.4 [facility]landsDxfayuvGPJHCFZANT4209-18-10 05:53:00 Test Item Value Reference Range Interpretation Comments PT (test code = PT) 13.5 s 12.0-14.7 [facility]landsYheqozxBSWXUNMOUH5312-19-94 05:53:00 Test Item Value Reference Range Interpretation Comments INR (test code = INR) 1.00 0.85-1.17 [facility]landsQypbghcJBFTJBGBHN2114-01-94 05:53:00 Test Item Value Reference Range Interpretation Comments PTT (test code = PTT) 33.4 s 22.9-35.8 [facility] HospitalRsevkrwEMISYMBTXC3751-44-80 05:53:00 Test Item Value Reference Range Interpretation Comments [facility] HIV 4th GEN (test Negative (04/20/15 11:53 code = CDC HIV 4th PM) GEN) [place] [id number] 05:53:00 Test Item Value Reference Range Interpretation Comments Salicylate Lvl (test no gt See_Comment [Autom ated message] The code = Salicylate Lvl) syste m which generated this result tra nsmitted reference range : <=30.0. The reference r tony was not used to int erpret this result as normal/abnormal . [place] [id number] 05:53:00 Test Item Value Reference Range Interpretation Comments Acetaminoph Lvl (test code = no gt 10-20 Acetaminoph Lvl) [place] [id number] 03:30:00 Test Item Value Reference Range Interpretation Comments Etoh (%) (test code = Etoh (%)) no [facility]HezxtzqKNIYDTWUPO5762-55-58 03:30:00 Test Item Value Reference Range Interpretation Comments Ethanol Lvl (test code = Ethanol Lvl) no [facility] HospitalYunrmgiXWTNAHTJMY7008-90-05 03:30:00 Test Item Value Reference Range Interpretation Comments Etoh (%) (test code = Etoh (%)) no [facility] HospitalObciuozJPVOODNDXD2914-94-74 03:30:00 Test Item Value Reference Range Interpretation Comments Ethanol Lvl (test code = Ethanol Lvl) no [facility] HospitalRinadhuFVVBHYMIXD8921-55-57 03:30:00 Test Item Value Reference Range Interpretation Comments Etoh (%) (test code = Etoh (%)) [facility]CufecytSOOPGGREOB2096-28-12 03:30:00 Test Item Value Reference Range Interpretation Comments Ethanol Lvl (test code = Ethanol Lvl) no [facility] HospitalFbcadusDKUUZZRURO0817-11-88 03:30:00 Test Item Value Reference Range Interpretation Comments Etoh (%) (test code = Etoh (%)) no [facility] HospitalIoecbudKMRCOCTSOD2519-46-48 03:30:00 Test Item Value Reference Range Interpretation Comments Ethanol Lvl (test code = Ethanol Lvl) no [facility]DR[facility] [id number] 03:23:00 Test Item Value Reference Range Interpretation Comments UDS Note (test code = See Note 3(01/20/14 UDS Note) 10:23 PM) [facility] [id number] 03:23:00 Test Item Value Reference Range Interpretation Comments U Benzodia Scr (test Positive *ABN*(01/20/14 code = U Benzodia Scr) 10:23 PM) [facility] [id number] 03:23:00 Test Item Value Reference Range Interpretation Comments U Cocaine Scr (test Negative *NA*(01/20/14 code = U Cocaine Scr) 10:23 PM) [facility] [id number] 03:23:00 Test Item Value Reference Range Interpretation Comments U Cannab Scr (test Negative *NA*(01/20/14 code = U Cannab Scr) 10:23 PM) [facility] [id number] 03:23:00 Test Item Value Reference Range Interpretation Comments U Opiate Scr (test Positive *ABN*(01/20/14 code = U Opiate Scr) 10:23 PM) [facility] [id number] 03:23:00 Test Item Value Reference Range Interpretation Comments U Phencyc Scr (test Negative *NA*(01/20/14 code = U Phencyc Scr) 10:23 PM) [facility] [id number] 03:23:00 Test Item Value Reference Range Interpretation Comments U Amph Scr (test code Negative *NA*(01/20/14 = U Amph Scr) 10:23 PM) [facility] [id number] 03:23:00 Test Item Value Reference Range Interpretation Comments U Nita Scr (test code Negative *NA*(01/20/14 = U Nita Scr) 10:23 PM) [facility] [id number] 03:23:00 Test Item Value Reference Range Interpretation Comments UA Bili (test code = Small 6*ABN*(01/20/14 UA Bili) 10:23 PM) [facility] [id number] 03:23:00 Test Item Value Reference Range Interpretation Comments UA Protein (test code Negative (01/20/14 10:23 = UA Protein) PM) [facility] [id number] 03:23:00 Test Item Value Reference Range Interpretation Comments UA Blood (test code = Negative (01/20/14 10:23 UA Blood) PM) [facility] [id number] 03:23:00 Test Item Value Reference Range Interpretation Comments UA Urobilinogen (test code = UA 1.0 0.1-1.0 Urobilinogen) [facility] [id number] 03:23:00 Test Item Value Reference Range Interpretation Comments UA Nitrite (test code Negative (01/20/14 10:23 = UA Nitrite) PM) [facility] [id number] 03:23:00 Test Item Value Reference Range Interpretation Comments UA Glucose (test code Negative (01/20/14 10:23 = UA Glucose) PM) [facility] [id number] 03:23:00 Test Item Value Reference Range Interpretation Comments UA Ketones (test code = UA Ketones) 15 mg/dL [facility] AND [id number] 03:23:00 Test Item Value Reference Range Interpretation Comments UA Bacteria (test code = UA Occasional /HPF Bacteria) [facility] AND [id number] 03:23:00 Test Item Value Reference Range Interpretation Comments UA WBC (test code = UA WBC) 0-2 /HPF [facility] AND [id number] 03:23:00 Test Item Value Reference Range Interpretation Comments UA RBC (test None Seen See_Comment [Automated mes aditya] code = UA RBC) (01/20/14 10:23 The system which PM) generated this result transmitted ref erence range: <=2. The reference range was not used to int erpret this result as normal/abnormal . [facility] AND [id number] 03:23:00 Test Item Value Reference Range Interpretation Comments UA Sq Epi (test code = UA Sq Occasional /LPF Epi) [facility] AND [id number] 03:23:00 Test Item Value Reference Range Interpretation Comments Micro? (test code = Performed (01/20/14 10:23 Micro?) PM) [facility] AND [id number] 03:23:00 Test Item Value Reference Range Interpretation Comments UA Leuk Est (test Negative (01/20/14 10:23 code = UA Leuk Est) PM) [facility] AND [id number] 03:23:00 Test Item Value Reference Range Interpretation Comments UA pH (test code = UA pH) 6.0 1 5.0-8.0 [facility] AND [id number] 03:23:00 Test Item Value Reference Range Interpretation Comments UA Spec Grav (test >=1.030 *ABN*(01/20/14 code = UA Spec Grav) 10:23 PM) [facility] AND [id number] 03:23:00 Test Item Value Reference Range Interpretation Comments UA Color (test code = Yellow *NA*(01/20/14 UA Color) 10:23 PM) [facility] AND [id number] 03:23:00 Test Item Value Reference Range Interpretation Comments UA Turbidity (test code = Clear (01/20/14 10:23 UA Turbidity) PM) [facility] [id number] 03:23:00 Test Item Value Reference Range Interpretation Comments UDS Note (test code = See Note 3(01/20/14 UDS Note) 10:23 PM) [facility] [id number] 03:23:00 Test Item Value Reference Range Interpretation Comments U Benzodia Scr (test Positive *ABN*(01/20/14 code = U Benzodia Scr) 10:23 PM) [facility] [id number] 03:23:00 Test Item Value Reference Range Interpretation Comments U Cocaine Scr (test Negative *NA*(01/20/14 code = U Cocaine Scr) 10:23 PM) [facility] [id number] 03:23:00 Test Item Value Reference Range Interpretation Comments U Cannab Scr (test Negative *NA*(01/20/14 code = U Cannab Scr) 10:23 PM) [facility] [id number] 03:23:00 Test Item Value Reference Range Interpretation Comments U Opiate Scr (test Positive *ABN*(01/20/14 code = U Opiate Scr) 10:23 PM) [facility] [id number] 03:23:00 Test Item Value Reference Range Interpretation Comments U Phencyc Scr (test Negative *NA*(01/20/14 code = U Phencyc Scr) 10:23 PM) [facility] [id number] 03:23:00 Test Item Value Reference Range Interpretation Comments U Amph Scr (test code Negative *NA*(01/20/14 = U Amph Scr) 10:23 PM) [facility] [id number] 03:23:00 Test Item Value Reference Range Interpretation Comments U Nita Scr (test code Negative *NA*(01/20/14 = U Nita Scr) 10:23 PM) [facility] [id number] 03:23:00 Test Item Value Reference Range Interpretation Comments UA Bili (test code = Small 6*ABN*(01/20/14 UA Bili) 10:23 PM) [facility] [id number] 03:23:00 Test Item Value Reference Range Interpretation Comments UA Protein (test code Negative (01/20/14 10:23 = UA Protein) PM) [facility] AND [id number] 03:23:00 Test Item Value Reference Range Interpretation Comments UA Blood (test code = Negative (01/20/14 10:23 UA Blood) PM) [facility] AND [id number] 03:23:00 Test Item Value Reference Range Interpretation Comments UA Urobilinogen (test code = UA 1.0 0.1-1.0 Urobilinogen) [facility] AND [id number] 03:23:00 Test Item Value Reference Range Interpretation Comments UA Nitrite (test code Negative (01/20/14 10:23 = UA Nitrite) PM) [facility] AND [id number] 03:23:00 Test Item Value Reference Range Interpretation Comments UA Glucose (test code Negative (01/20/14 10:23 = UA Glucose) PM) [facility] AND [id number] 03:23:00 Test Item Value Reference Range Interpretation Comments UA Ketones (test code = UA Ketones) 15 mg/dL [facility] AND [id number] 03:23:00 Test Item Value Reference Range Interpretation Comments UA Bacteria (test code = UA Occasional /HPF Bacteria) [facility] AND [id number] 03:23:00 Test Item Value Reference Range Interpretation Comments UA WBC (test code = UA WBC) 0-2 /HPF [facility] AND [id number] 03:23:00 Test Item Value Reference Range Interpretation Comments UA RBC (test None Seen See_Comment [Automated mes aditya] code = UA RBC) (01/20/14 10:23 The system which PM) generated this result transmitted ref erence range: <=2. The reference range was not used to int erpret this result as normal/abnormal . [facility] AND [id number] 03:23:00 Test Item Value Reference Range Interpretation Comments UA Sq Epi (test code = UA Sq Occasional /LPF Epi) [facility] AND [id number] 03:23:00 Test Item Value Reference Range Interpretation Comments Micro? (test code = Performed (01/20/14 10:23 Micro?) PM) [facility] AND [id number] 03:23:00 Test Item Value Reference Range Interpretation Comments UA Leuk Est (test Negative (01/20/14 10:23 code = UA Leuk Est) PM) [facility] [id number] 03:23:00 Test Item Value Reference Range Interpretation Comments UA pH (test code = UA pH) 6.0 1 5.0-8.0 [facility] [id number] 03:23:00 Test Item Value Reference Range Interpretation Comments UA Spec Grav (test >=1.030 *ABN*(01/20/14 code = UA Spec Grav) 10:23 PM) [facility] [id number] 03:23:00 Test Item Value Reference Range Interpretation Comments UA Color (test code = Yellow *NA*(01/20/14 UA Color) 10:23 PM) [facility] [id number] 03:23:00 Test Item Value Reference Range Interpretation Comments UA Turbidity (test code = Clear (01/20/14 10:23 UA Turbidity) PM) [facility] [id number] 03:23:00 Test Item Value Reference Range Interpretation Comments UDS Note (test code = See Note 3(01/20/14 UDS Note) 10:23 PM) [facility] [id number] 03:23:00 Test Item Value Reference Range Interpretation Comments U Benzodia Scr (test Positive *ABN*(01/20/14 code = U Benzodia Scr) 10:23 PM) [facility] [id number] 03:23:00 Test Item Value Reference Range Interpretation Comments U Cocaine Scr (test Negative *NA*(01/20/14 code = U Cocaine Scr) 10:23 PM) [facility] [id number] 03:23:00 Test Item Value Reference Range Interpretation Comments U Cannab Scr (test Negative *NA*(01/20/14 code = U Cannab Scr) 10:23 PM) [facility] [id number] 03:23:00 Test Item Value Reference Range Interpretation Comments U Opiate Scr (test Positive *ABN*(01/20/14 code = U Opiate Scr) 10:23 PM) [facility] [id number] 03:23:00 Test Item Value Reference Range Interpretation Comments U Phencyc Scr (test Negative *NA*(01/20/14 code = U Phencyc Scr) 10:23 PM) [facility] [id number] 03:23:00 Test Item Value Reference Range Interpretation Comments U Amph Scr (test code Negative *NA*(01/20/14 = U Amph Scr) 10:23 PM) [facility] [id number] 03:23:00 Test Item Value Reference Range Interpretation Comments U Nita Scr (test code Negative *NA*(01/20/14 = U Nita Scr) 10:23 PM) [facility] [id number] 03:23:00 Test Item Value Reference Range Interpretation Comments UA Bili (test code = Small 6*ABN*(01/20/14 UA Bili) 10:23 PM) [facility] [id number] 03:23:00 Test Item Value Reference Range Interpretation Comments UA Protein (test code Negative (01/20/14 10:23 = UA Protein) PM) [facility] [id number] 03:23:00 Test Item Value Reference Range Interpretation Comments UA Blood (test code = Negative (01/20/14 10:23 UA Blood) PM) [facility] [id number] 03:23:00 Test Item Value Reference Range Interpretation Comments UA Urobilinogen (test code = UA 1.0 0.1-1.0 Urobilinogen) [facility] [id number] 03:23:00 Test Item Value Reference Range Interpretation Comments UA Nitrite (test code Negative (01/20/14 10:23 = UA Nitrite) PM) [facility] [id number] 03:23:00 Test Item Value Reference Range Interpretation Comments UA Glucose (test code Negative (01/20/14 10:23 = UA Glucose) PM) [facility] [id number] 03:23:00 Test Item Value Reference Range Interpretation Comments UA Ketones (test code = UA Ketones) 15 mg/dL [facility] [id number] 03:23:00 Test Item Value Reference Range Interpretation Comments UA Bacteria (test code = UA Occasional /HPF Bacteria) [facility] [id number] 03:23:00 Test Item Value Reference Range Interpretation Comments UA WBC (test code = UA WBC) 0-2 /HPF [facility] [id number] 03:23:00 Test Item Value Reference Range Interpretation Comments UA RBC (test None Seen See_Comment [Automated mes aditya] code = UA RBC) (01/20/14 10:23 The system which PM) generated this result transmitted ref erence range: <=2. The reference range was not used to int erpret this result as normal/abnormal . [facility] [id number] 03:23:00 Test Item Value Reference Range Interpretation Comments UA Sq Epi (test code = UA Sq Occasional /LPF Epi) [facility] [id number] 03:23:00 Test Item Value Reference Range Interpretation Comments Micro? (test code = Performed (01/20/14 10:23 Micro?) PM) [facility] [id number] 03:23:00 Test Item Value Reference Range Interpretation Comments UA Leuk Est (test Negative (01/20/14 10:23 code = UA Leuk Est) PM) [facility] [id number] 03:23:00 Test Item Value Reference Range Interpretation Comments UA pH (test code = UA pH) 6.0 1 5.0-8.0 [facility] [id number] 03:23:00 Test Item Value Reference Range Interpretation Comments UA Spec Grav (test >=1.030 *ABN*(01/20/14 code = UA Spec Grav) 10:23 PM) [facility] [id number] 03:23:00 Test Item Value Reference Range Interpretation Comments UA Color (test code = Yellow *NA*(01/20/14 UA Color) 10:23 PM) [facility] [id number] 03:23:00 Test Item Value Reference Range Interpretation Comments UA Turbidity (test code = Clear (01/20/14 10:23 UA Turbidity) PM) [facility] [id number] 03:23:00 Test Item Value Reference Range Interpretation Comments UDS Note (test code = See Note 3(01/20/14 UDS Note) 10:23 PM) [facility] [id number] 03:23:00 Test Item Value Reference Range Interpretation Comments U Benzodia Scr (test Positive *ABN*(01/20/14 code = U Benzodia Scr) 10:23 PM) [facility] [id number] 03:23:00 Test Item Value Reference Range Interpretation Comments U Cocaine Scr (test Negative *NA*(01/20/14 code = U Cocaine Scr) 10:23 PM) [facility] [id number] 03:23:00 Test Item Value Reference Range Interpretation Comments U Cannab Scr (test Negative *NA*(01/20/14 code = U Cannab Scr) 10:23 PM) [facility] [id number] 03:23:00 Test Item Value Reference Range Interpretation Comments U Opiate Scr (test Positive *ABN*(01/20/14 code = U Opiate Scr) 10:23 PM) [facility] [id number] 03:23:00 Test Item Value Reference Range Interpretation Comments U Phencyc Scr (test Negative *NA*(01/20/14 code = U Phencyc Scr) 10:23 PM) [facility] [id number] 03:23:00 Test Item Value Reference Range Interpretation Comments U Amph Scr (test code Negative *NA*(01/20/14 = U Amph Scr) 10:23 PM) [facility] [id number] 03:23:00 Test Item Value Reference Range Interpretation Comments U Nita Scr (test code Negative *NA*(01/20/14 = U Nita Scr) 10:23 PM) [facility] [id number] 03:23:00 Test Item Value Reference Range Interpretation Comments UA Bili (test code = Small 6*ABN*(01/20/14 UA Bili) 10:23 PM) [facility] [id number] 03:23:00 Test Item Value Reference Range Interpretation Comments UA Protein (test code Negative (01/20/14 10:23 = UA Protein) PM) [facility] [id number] 03:23:00 Test Item Value Reference Range Interpretation Comments UA Blood (test code = Negative (01/20/14 10:23 UA Blood) PM) [facility] [id number] 03:23:00 Test Item Value Reference Range Interpretation Comments UA Urobilinogen (test code = UA 1.0 0.1-1.0 Urobilinogen) [facility] AND [id number] 03:23:00 Test Item Value Reference Range Interpretation Comments UA Nitrite (test code Negative (01/20/14 10:23 = UA Nitrite) PM) [facility] AND [id number] 03:23:00 Test Item Value Reference Range Interpretation Comments UA Glucose (test code Negative (01/20/14 10:23 = UA Glucose) PM) [facility] AND [id number] 03:23:00 Test Item Value Reference Range Interpretation Comments UA Ketones (test code = UA Ketones) 15 mg/dL [facility] AND [id number] 03:23:00 Test Item Value Reference Range Interpretation Comments UA Bacteria (test code = UA Occasional /HPF Bacteria) [facility] AND [id number] 03:23:00 Test Item Value Reference Range Interpretation Comments UA WBC (test code = UA WBC) 0-2 /HPF [facility] AND [id number] 03:23:00 Test Item Value Reference Range Interpretation Comments UA RBC (test None Seen See_Comment [Automated mes aditya] code = UA RBC) (01/20/14 10:23 The system which PM) generated this result transmitted ref erence range: <=2. The reference range was not used to int erpret this result as normal/abnormal . [facility] AND [id number] 03:23:00 Test Item Value Reference Range Interpretation Comments UA Sq Epi (test code = UA Sq Occasional /LPF Epi) [facility] AND [id number] 03:23:00 Test Item Value Reference Range Interpretation Comments Micro? (test code = Performed (01/20/14 10:23 Micro?) PM) [facility] AND [id number] 03:23:00 Test Item Value Reference Range Interpretation Comments UA Leuk Est (test Negative (01/20/14 10:23 code = UA Leuk Est) PM) [facility] AND [id number] 03:23:00 Test Item Value Reference Range Interpretation Comments UA pH (test code = UA pH) 6.0 1 5.0-8.0 [facility] AND [id number] 03:23:00 Test Item Value Reference Range Interpretation Comments UA Spec Grav (test >=1.030 *ABN*(01/20/14 code = UA Spec Grav) 10:23 PM) [facility] AND [id number] 03:23:00 Test Item Value Reference Range Interpretation Comments UA Color (test code = Yellow *NA*(01/20/14 UA Color) 10:23 PM) [facility] AND [id number] 03:23:00 Test Item Value Reference Range Interpretation Comments UA Turbidity (test code = Clear (01/20/14 10:23 UA Turbidity) PM) [facility]2014-08-21 02:25:00 Test Item Value Reference Range Interpretation Comments Lipase Lvl (test code = Lipase Lvl) 110 73-[address] [facility]2014-08-21 02:25:00 Test Item Value Reference Range Interpretation Comments Amylase Lvl (test code = Amylase Lvl) 50 25-[address] [facility]2014-08-21 02:25:00 Test Item Value Reference Range Interpretation Comments A/G Ratio (test code = A/G Ratio) 1.4 0.7-1.[address] [facility]2014-08-21 02:25:00 Test Item Value Reference Range Interpretation Comments AGAP (test code = AGAP) 10.4 10.0-20.[address] [facility]2014-08-21 02:25:00 Test Item Value Reference Range Interpretation Comments B/C Ratio (test code = B/C Ratio) 10 6-[address] [facility]2014-08-21 02:25:00 Test Item Value Reference Range Interpretation Comments Globulin (test code = Globulin) 3.1 2.0-4.[address] [facility]2014-08-21 02:25:00 Test Item Value Reference Range Interpretation Comments eGFR (test code = eGFR) [address] [facility]2014-08-21 02:25:00 Test Item Value Reference Range Interpretation Comments CO2 (test code = CO2) 26 24-[address] [facility]2014-08-21 02:25:00 Test Item Value Reference Range Interpretation Comments Albumin Lvl (test code = Albumin Lvl) 4.3 3.5-5.[address] [facility]2014-08-21 02:25:00 Test Item Value Reference Range Interpretation Comments ALT (test code = ALT) 28 See_Comment [Auto mated message] The system which ge nerated this result transmit ezequiel reference range : <=65. The reference range was not used to interpr et this result as grace l/abnormal. [facility]2014-08-21 02:25:00 Test Item Value Reference Range Interpretation Comments AST (test code = AST) 14 See_Comment [Auto mated message] The system which ge nerated this result transmit ezequiel reference range : <=37. The reference range was not used to interpr et this result as grace l/abnormal. [facility]2014-08-21 02:25:00 Test Item Value Reference Range Interpretation Comments Total Protein (test code = Total 7.4 6.4-8.4 Protein) [facility]2014-08-21 02:25:00 Test Item Value Reference Range Interpretation Comments Chloride Lvl (test code = Chloride Lvl) 107 95-[address] [facility]2014-08-21 02:25:00 Test Item Value Reference Range Interpretation Comments Potassium Lvl (test code = Potassium 3.4 3.5-5.1 Lvl) [facility]2014-08-21 02:25:00 Test Item Value Reference Range Interpretation Comments Calcium Lvl (test code = Calcium Lvl) 9.2 8.5-10.[address] [facility]2014-08-21 02:25:00 Test Item Value Reference Range Interpretation Comments Alk Phos (test code = Alk Phos) 64 39-[address] [facility]2014-08-21 02:25:00 Test Item Value Reference Range Interpretation Comments Bili Total (test code = Bili Total) 0.8 0.2-1.[address] [facility]2014-08-21 02:25:00 Test Item Value Reference Range Interpretation Comments Sodium Lvl (test code = Sodium Lvl) 140 135-[address] [facility]2014-08-21 02:25:00 Test Item Value Reference Range Interpretation Comments Glucose Lvl (test code = Glucose Lvl) 111 70-[address] [facility]2014-08-21 02:25:00 Test Item Value Reference Range Interpretation Comments Creatinine Lvl (test code = Creatinine 1.2 0.5-1.4 Lvl) [place] [id number] 02:25:00 Test Item Value Reference Range Interpretation Comments BUN (test code = BUN) 12 7-22 [id number] 02:25:00 Test Item Value Reference Range Interpretation Comments MCV (test code = MCV) 93.4 80.0-94.0 [id number] 02:25:00 Test Item Value Reference Range Interpretation Comments MCHC (test code = MCHC) 34.3 32.0-36.0 [id number] 02:25:00 Test Item Value Reference Range Interpretation Comments MCH (test code = MCH) 32.1 pg 27.0-31.0 [id number] 02:25:00 Test Item Value Reference Range Interpretation Comments RDW (test code = RDW) 13.4 11.5-14.5 [id number] 02:25:00 Test Item Value Reference Range Interpretation Comments Platelet (test code = Platelet) 184 133-450 [facility]lan[id number] 02:25:00 Test Item Value Reference Range Interpretation Comments MPV (test code = MPV) 9.7 7.4-10.4 [facility]lan[id number] 02:25:00 Test Item Value Reference Range Interpretation Comments RBC (test code = RBC) 4.82 4.70-6.10 [id number] 02:25:00 Test Item Value Reference Range Interpretation Comments Hgb (test code = Hgb) 15.5 14.0-18.0 [id number] 02:25:00 Test Item Value Reference Range Interpretation Comments WBC (test code = WBC) 9.8 3.7-10.4 [facility]lan[id number] 02:25:00 Test Item Value Reference Range Interpretation Comments Hct (test code = Hct) 45.1 42.0-54.0 [facility]lan[id number] 02:25:00 Test Item Value Reference Range Interpretation Comments PTT (test code = PTT) 33.2 s 22.9-35.8 [facility]lan[id number] 02:25:00 Test Item Value Reference Range Interpretation Comments PT (test code = PT) 12.9 s 12.0-14.7 [id number] 02:25:00 Test Item Value Reference Range Interpretation Comments INR (test code = INR) 0.98 0.85-1.17 [facility]landsHijkefeCASDJJQPFM0554-69-23 02:25:00 Test Item Value Reference Range Interpretation Comments Monocytes # (test code 0.9 See_Comment [Aut omated message] The = Monocytes #) system which generated this result tra nsmitted reference range : <=0.8. The reference r tony was not used to int erpret this result as normal/abnormal . [facility]landsQdmxeeaMFEURIHBBW3222-12-82 02:25:00 Test Item Value Reference Range Interpretation Comments Lymphocytes # (test code = Lymphocytes 4.1 1.0-5.5 #) [facility]landsLcqbsvmSPSIQCNMXZ2667-97-83 02:25:00 Test Item Value Reference Range Interpretation Comments Segs-Bands # (test code = Segs-Bands #) 4.5 1.5-8.1 [facility]landsZpdkgdxNWWZPHYFIC0943-09-99 02:25:00 Test Item Value Reference Range Interpretation Comments Basophils # (test code 0.1 See_Comment [Aut omated message] The = Basophils #) system which generated this result tra nsmitted reference range : <=0.2. The reference r tony was not used to int erpret this result as normal/abnormal . [id number] 02:25:00 Test Item Value Reference Range Interpretation Comments Eosinophils # (test code 0.2 See_Comment [A utomated message] The = Eosinophils #) system whic h generated this result tra nsmitted reference range : <=0.5. The reference r tony was not used to int erpret this result as normal/abnormal . [facility]lan[id number] 02:25:00 Test Item Value Reference Range Interpretation Comments Segs (test code = Segs) 46.2 45.0-75.0 [facility]landsPyuqhxeWHFTPCBGNO5516-56-57 02:25:00 Test Item Value Reference Range Interpretation Comments Eosinophils (test code = 1.6 See_Comment [A utomated message] The Eosinophils) system which ge nerated this result tra nsmitted reference range : <=4.0. The reference r tony was not used to int erpret this result as normal/abnormal . [facility]landsHcpnmobTLOETFXZDA7543-72-77 02:25:00 Test Item Value Reference Range Interpretation Comments Lymphocytes (test code = Lymphocytes) 42.3 20.0-40.0 [facility]landsMufzqtaHWBSUXINXI1508-29-36 02:25:00 Test Item Value Reference Range Interpretation Comments Basophils (test code = 0.7 See_Comment [Aut omated message] The Basophils) system which ge nerated this result tra nsmitted reference range : <=1.0. The reference r tony was not used to int erpret this result as normal/abnormal . [id number] 02:25:00 Test Item Value Reference Range Interpretation Comments Monocytes (test code = Monocytes) 9.2 2.0-12.0 [facility]ZTHGPO9557-78-02 02:25:00 Test Item Value Reference Range Interpretation Comments [facility] HIV 4th GEN (test Negative (01/20/14 9:25 code = [facility] HIV 4th PM) GEN) [facility]2014-08-21 02:25:00 Test Item Value Reference Range Interpretation Comments Lipase Lvl (test code = Lipase Lvl) 110 73-[address] [facility]2014-08-21 02:25:00 Test Item Value Reference Range Interpretation Comments Amylase Lvl (test code = Amylase Lvl) 50 25-[address] [facility]2014-08-21 02:25:00 Test Item Value Reference Range Interpretation Comments A/G Ratio (test code = A/G Ratio) 1.4 0.7-1.[address] [facility]2014-08-21 02:25:00 Test Item Value Reference Range Interpretation Comments AGAP (test code = AGAP) 10.4 10.0-20.[address] [facility]2014-08-21 02:25:00 Test Item Value Reference Range Interpretation Comments B/C Ratio (test code = B/C Ratio) 10 6-[address] [facility]2014-08-21 02:25:00 Test Item Value Reference Range Interpretation Comments Globulin (test code = Globulin) 3.1 2.0-4.[address] [facility]2014-08-21 02:25:00 Test Item Value Reference Range Interpretation Comments eGFR (test code = eGFR) [address] [facility]2014-08-21 02:25:00 Test Item Value Reference Range Interpretation Comments CO2 (test code = CO2) 26 24-[address] [facility]2014-08-21 02:25:00 Test Item Value Reference Range Interpretation Comments Albumin Lvl (test code = Albumin Lvl) 4.3 3.5-5.0 [place] 587664-08-21 02:25:00 Test Item Value Reference Range Interpretation Comments ALT (test code = ALT) 28 See_Comment [Auto mated message] The system which ge nerated this result transmit ezequiel reference range : <=65. The reference range was not used to interpr et this result as grace l/abnormal. [facility]2014-08-21 02:25:00 Test Item Value Reference Range Interpretation Comments AST (test code = AST) 14 See_Comment [Auto mated message] The system which ge nerated this result transmit ezequiel reference range : <=37. The reference range was not used to interpr et this result as grace l/abnormal. [facility]2014-08-21 02:25:00 Test Item Value Reference Range Interpretation Comments Total Protein (test code = Total 7.4 6.4-8.4 Protein) [facility]2014-08-21 02:25:00 Test Item Value Reference Range Interpretation Comments Chloride Lvl (test code = Chloride Lvl) 107 95-109 [place] 587664-08-21 02:25:00 Test Item Value Reference Range Interpretation Comments Potassium Lvl (test code = Potassium 3.4 3.5-5.1 Lvl) [place] [id number] 02:25:00 Test Item Value Reference Range Interpretation Comments Calcium Lvl (test code = Calcium Lvl) 9.2 8.5-10.5 [place] 587664-08-21 02:25:00 Test Item Value Reference Range Interpretation Comments Alk Phos (test code = Alk Phos) 64 39-[address] [facility]2014-08-21 02:25:00 Test Item Value Reference Range Interpretation Comments Bili Total (test code = Bili Total) 0.8 0.2-1.3 [place] [id number] 02:25:00 Test Item Value Reference Range Interpretation Comments Sodium Lvl (test code = Sodium Lvl) 140 135-[address] [facility]2014-08-21 02:25:00 Test Item Value Reference Range Interpretation Comments Glucose Lvl (test code = Glucose Lvl) 111 70-[address] [facility]2014-08-21 02:25:00 Test Item Value Reference Range Interpretation Comments Creatinine Lvl (test code = Creatinine 1.2 0.5-1.4 Lvl) [facility]2014-08-21 02:25:00 Test Item Value Reference Range Interpretation Comments BUN (test code = BUN) 12 7-22 [facility]landsPrloeicJMTGRZEJZH9823-07-26 02:25:00 Test Item Value Reference Range Interpretation Comments MCV (test code = MCV) 93.4 80.0-94.0 [facility]VrpatldQEWKUAKJOC6139-68-36 02:25:00 Test Item Value Reference Range Interpretation Comments MCHC (test code = MCHC) 34.3 32.0-36.0 [facility]landsNeebohiLDWGGSBNGK1792-55-31 02:25:00 Test Item Value Reference Range Interpretation Comments MCH (test code = MCH) 32.1 pg 27.0-31.0 [facility]landsLshbvxfRAGROOALCG1209-36-10 02:25:00 Test Item Value Reference Range Interpretation Comments RDW (test code = RDW) 13.4 11.5-14.5 [facility]lan[id number] 02:25:00 Test Item Value Reference Range Interpretation Comments Platelet (test code = Platelet) 184 133-450 [facility]landsPfbfbujJGPREHBAJZ5780-29-54 02:25:00 Test Item Value Reference Range Interpretation Comments MPV (test code = MPV) 9.7 7.4-10.4 [facility]landsHclfwxwXIURCPYQPD3787-65-35 02:25:00 Test Item Value Reference Range Interpretation Comments RBC (test code = RBC) 4.82 4.70-6.10 [facility]landsErwktqbRHXSUNRVBQ5300-72-84 02:25:00 Test Item Value Reference Range Interpretation Comments Hgb (test code = Hgb) 15.5 14.0-18.0 [facility]landsOddffomTCFYKWJKKS6224-30-13 02:25:00 Test Item Value Reference Range Interpretation Comments WBC (test code = WBC) 9.8 3.7-10.4 [facility]landsIztqqzzSLJDFJQZZO8124-98-84 02:25:00 Test Item Value Reference Range Interpretation Comments Hct (test code = Hct) 45.1 42.0-54.0 [facility]landsForrfvzYTDRGKJYSK1760-53-56 02:25:00 Test Item Value Reference Range Interpretation Comments PTT (test code = PTT) 33.2 s 22.9-35.8 [facility]landsCmayuhmHLENSIKMOW6412-30-29 02:25:00 Test Item Value Reference Range Interpretation Comments PT (test code = PT) 12.9 s 12.0-14.7 [facility]landsMeietgjMRSHZVPQAD6360-85-74 02:25:00 Test Item Value Reference Range Interpretation Comments INR (test code = INR) 0.98 0.85-1.17 [facility]landsWjposvwNNUUFCGVMK9936-05-71 02:25:00 Test Item Value Reference Range Interpretation Comments Monocytes # (test code 0.9 See_Comment [Aut omated message] The = Monocytes #) system which generated this result tra nsmitted reference range : <=0.8. The reference r tony was not used to int erpret this result as normal/abnormal . [facility]landsIhesiadCIZJQKCQQI3914-45-35 02:25:00 Test Item Value Reference Range Interpretation Comments Lymphocytes # (test code = Lymphocytes 4.1 1.0-5.5 #) [facility]landsEacitqgNBETBQGFNP5079-07-18 02:25:00 Test Item Value Reference Range Interpretation Comments Segs-Bands # (test code = Segs-Bands #) 4.5 1.5-8.1 [facility]landsOlumwseJMSMLTZFXG6430-29-44 02:25:00 Test Item Value Reference Range Interpretation Comments Basophils # (test code 0.1 See_Comment [Aut omated message] The = Basophils #) system which generated this result tra nsmitted reference range : <=0.2. The reference r tony was not used to int erpret this result as normal/abnormal . [facility]landsIiipjokUKSVGHPAXM6996-17-61 02:25:00 Test Item Value Reference Range Interpretation Comments Eosinophils # (test code 0.2 See_Comment [A utomated message] The = Eosinophils #) system whic h generated this result tra nsmitted reference range : <=0.5. The reference r tony was not used to int erpret this result as normal/abnormal . [facility]landsYqlrlutXTCTIEDRRQ4092-25-67 02:25:00 Test Item Value Reference Range Interpretation Comments Segs (test code = Segs) 46.2 45.0-75.0 [facility]landsObspehiVOAIMOMHYZ8544-12-49 02:25:00 Test Item Value Reference Range Interpretation Comments Eosinophils (test code = 1.6 See_Comment [A utomated message] The Eosinophils) system which ge nerated this result tra nsmitted reference range : <=4.0. The reference r tony was not used to int erpret this result as normal/abnormal . [facility]WrsfqfkBEVEEZAZHS8658-12-11 02:25:00 Test Item Value Reference Range Interpretation Comments Lymphocytes (test code = Lymphocytes) 42.3 20.0-40.0 [facility]lan[id number] 02:25:00 Test Item Value Reference Range Interpretation Comments Basophils (test code = 0.7 See_Comment [Aut omated message] The Basophils) system which ge nerated this result tra nsmitted reference range : <=1.0. The reference r tony was not used to int erpret this result as normal/abnormal . [facility]landsE[id number] 02:25:00 Test Item Value Reference Range Interpretation Comments Monocytes (test code = Monocytes) 9.2 2.0-12.0 [facility] 02:25:00 Test Item Value Reference Range Interpretation Comments CDC HIV 4th GEN (test Negative (01/20/14 9:25 code = CDC HIV 4th PM) GEN) [facility]2014-08-21 02:25:00 Test Item Value Reference Range Interpretation Comments Lipase Lvl (test code = Lipase Lvl) 110 73-[address] [facility]2014-08-21 02:25:00 Test Item Value Reference Range Interpretation Comments Amylase Lvl (test code = Amylase Lvl) 50 25-[address] [facility]2014-08-21 02:25:00 Test Item Value Reference Range Interpretation Comments A/G Ratio (test code = A/G Ratio) 1.4 0.7-1.[address] [facility]2014-08-21 02:25:00 Test Item Value Reference Range Interpretation Comments AGAP (test code = AGAP) 10.4 10.0-20.[address] [facility]2014-08-21 02:25:00 Test Item Value Reference Range Interpretation Comments B/C Ratio (test code = B/C Ratio) 10 6-[address] [facility]2014-08-21 02:25:00 Test Item Value Reference Range Interpretation Comments Globulin (test code = Globulin) 3.1 2.0-4.0 [place] [id number] 02:25:00 Test Item Value Reference Range Interpretation Comments eGFR (test code = eGFR) [address] [facility]2014-08-21 02:25:00 Test Item Value Reference Range Interpretation Comments CO2 (test code = CO2) 26 24-[address] [facility]2014-08-21 02:25:00 Test Item Value Reference Range Interpretation Comments Albumin Lvl (test code = Albumin Lvl) 4.3 3.5-5.[address] [facility]2014-08-21 02:25:00 Test Item Value Reference Range Interpretation Comments ALT (test code = ALT) 28 See_Comment [Auto mated message] The system which ge nerated this result transmit ezequiel reference range : <=65. The reference range was not used to interpr et this result as grace l/abnormal. [facility]2014-08-21 02:25:00 Test Item Value Reference Range Interpretation Comments AST (test code = AST) 14 See_Comment [Auto mated message] The system which ge nerated this result transmit ezequiel reference range : <=37. The reference range was not used to interpr et this result as grace l/abnormal. [facility]2014-08-21 02:25:00 Test Item Value Reference Range Interpretation Comments Total Protein (test code = Total 7.4 6.4-8.4 Protein) [facility]2014-08-21 02:25:00 Test Item Value Reference Range Interpretation Comments Chloride Lvl (test code = Chloride Lvl) 107 95-[address] [facility]2014-08-21 02:25:00 Test Item Value Reference Range Interpretation Comments Potassium Lvl (test code = Potassium 3.4 3.5-5.1 Lvl) [facility]2014-08-21 02:25:00 Test Item Value Reference Range Interpretation Comments Calcium Lvl (test code = Calcium Lvl) 9.2 8.5-10.5 [place] [id number] 02:25:00 Test Item Value Reference Range Interpretation Comments Alk Phos (test code = Alk Phos) 64 39-[address] [facility]2014-08-21 02:25:00 Test Item Value Reference Range Interpretation Comments Bili Total (test code = Bili Total) 0.8 0.2-1.[address] [facility]2014-08-21 02:25:00 Test Item Value Reference Range Interpretation Comments Sodium Lvl (test code = Sodium Lvl) 140 135-[address] [facility]2014-08-21 02:25:00 Test Item Value Reference Range Interpretation Comments Glucose Lvl (test code = Glucose Lvl) 111 70-[address] [facility]2014-08-21 02:25:00 Test Item Value Reference Range Interpretation Comments Creatinine Lvl (test code = Creatinine 1.2 0.5-1.4 Lvl) [facility]2014-08-21 02:25:00 Test Item Value Reference Range Interpretation Comments BUN (test code = BUN) 12 7-22 [facility]landsGmyvsgcTMCTZNEQNX0475-99-37 02:25:00 Test Item Value Reference Range Interpretation Comments MCV (test code = MCV) 93.4 80.0-94.0 [facility]landsXdhpjdnNTRPWJNXCS7174-68-07 02:25:00 Test Item Value Reference Range Interpretation Comments MCHC (test code = MCHC) 34.3 32.0-36.0 [facility]landsKjydhubCFJBFTXFQI8753-16-43 02:25:00 Test Item Value Reference Range Interpretation Comments MCH (test code = MCH) 32.1 pg 27.0-31.0 [facility]landsYzvlmchPTLVDCXAUY2593-19-02 02:25:00 Test Item Value Reference Range Interpretation Comments RDW (test code = RDW) 13.4 11.5-14.5 [facility]landsRlzutxhZMDBWBWOUF2892-63-50 02:25:00 Test Item Value Reference Range Interpretation Comments Platelet (test code = Platelet) 184 133-450 [facility]landsPorrsyxLNEXZBFRZL9358-38-12 02:25:00 Test Item Value Reference Range Interpretation Comments MPV (test code = MPV) 9.7 7.4-10.4 [facility]landsCwyhcdoZGGLJZBVRU6915-91-68 02:25:00 Test Item Value Reference Range Interpretation Comments RBC (test code = RBC) 4.82 4.70-6.10 [facility]landsLnkretxOPWFSSWKFO6003-43-68 02:25:00 Test Item Value Reference Range Interpretation Comments Hgb (test code = Hgb) 15.5 14.0-18.0 [facility]KkpkmbyLPUYSWVLNX3785-91-54 02:25:00 Test Item Value Reference Range Interpretation Comments WBC (test code = WBC) 9.8 3.7-10.4 [facility]landsZntkzahTEVDFBSMPK4561-38-57 02:25:00 Test Item Value Reference Range Interpretation Comments Hct (test code = Hct) 45.1 42.0-54.0 [facility]landsPysrnneZGPARSKBJL9062-04-96 02:25:00 Test Item Value Reference Range Interpretation Comments PTT (test code = PTT) 33.2 s 22.9-35.8 [facility]landsCjpspwvRCCTEZHAVO0962-98-43 02:25:00 Test Item Value Reference Range Interpretation Comments PT (test code = PT) 12.9 s 12.0-14.7 [facility]landsIraxmrzQTRSTKVVNF6569-27-90 02:25:00 Test Item Value Reference Range Interpretation Comments INR (test code = INR) 0.98 0.85-1.17 [facility]YztqcbvMNMUAQTALW5306-63-98 02:25:00 Test Item Value Reference Range Interpretation Comments Monocytes # (test code 0.9 See_Comment [Aut omated message] The = Monocytes #) system which generated this result tra nsmitted reference range : <=0.8. The reference r tony was not used to int erpret this result as normal/abnormal . [facility]landsIiqqaazYYIELSIVPC2835-05-44 02:25:00 Test Item Value Reference Range Interpretation Comments Lymphocytes # (test code = Lymphocytes 4.1 1.0-5.5 #) [facility]landsXgsyvxmRUHUBWXWJM0211-26-69 02:25:00 Test Item Value Reference Range Interpretation Comments Segs-Bands # (test code = Segs-Bands #) 4.5 1.5-8.1 [facility]landsTzlxwxcQNYXWDRPCE2845-49-15 02:25:00 Test Item Value Reference Range Interpretation Comments Basophils # (test code 0.1 See_Comment [Aut omated message] The = Basophils #) system which generated this result tra nsmitted reference range : <=0.2. The reference r tony was not used to int erpret this result as normal/abnormal . [facility]landsOarvkomXJGZEHKGDB1690-23-39 02:25:00 Test Item Value Reference Range Interpretation Comments Eosinophils # (test code 0.2 See_Comment [A utomated message] The = Eosinophils #) system whic h generated this result tra nsmitted reference range : <=0.5. The reference r tony was not used to int erpret this result as normal/abnormal . [facility]landsCggdbkeRSXQJGJEOS9061-86-93 02:25:00 Test Item Value Reference Range Interpretation Comments Segs (test code = Segs) 46.2 45.0-75.0 [facility]landsEkatvgwIHYBNPBZBB8950-88-24 02:25:00 Test Item Value Reference Range Interpretation Comments Eosinophils (test code = 1.6 See_Comment [A utomated message] The Eosinophils) system which ge nerated this result tra nsmitted reference range : <=4.0. The reference r tony was not used to int erpret this result as normal/abnormal . [facility]landsJvihdylIDQQSUZEVH9118-94-12 02:25:00 Test Item Value Reference Range Interpretation Comments Lymphocytes (test code = Lymphocytes) 42.3 20.0-40.0 [facility]lan[id number] 02:25:00 Test Item Value Reference Range Interpretation Comments Basophils (test code = 0.7 See_Comment [Aut omated message] The Basophils) system which ge nerated this result tra nsmitted reference range : <=1.0. The reference r tony was not used to int erpret this result as normal/abnormal . [facility] HospitalYvrxyboLNCENRMDRM3842-50-31 02:25:00 Test Item Value Reference Range Interpretation Comments Monocytes (test code = Monocytes) 9.2 2.0-12.0 [facility] HospitalTthfcymZEYPIAYGXG3420-94-81 02:25:00 Test Item Value Reference Range Interpretation Comments CDC HIV 4th GEN (test Negative (01/20/14 9:25 code = CDC HIV 4th PM) GEN) [facility] HospitalhyperWALLET Systems [id number] 02:25:00 Test Item Value Reference Range Interpretation Comments Lipase Lvl (test code = Lipase Lvl) 110 73-393 [facility]Med[facility] [id number] 02:25:00 Test Item Value Reference Range Interpretation Comments Amylase Lvl (test code = Amylase Lvl) 50 25-[address] [facility]2014-08-21 02:25:00 Test Item Value Reference Range Interpretation Comments A/G Ratio (test code = A/G Ratio) 1.4 0.7-1.6 [place] 587664-08-21 02:25:00 Test Item Value Reference Range Interpretation Comments AGAP (test code = AGAP) 10.4 10.0-20.0 [place] 587664-08-21 02:25:00 Test Item Value Reference Range Interpretation Comments B/C Ratio (test code = B/C Ratio) 10 6-25 [place] [address]-08-21 02:25:00 Test Item Value Reference Range Interpretation Comments Globulin (test code = Globulin) 3.1 2.0-4.0 [place] 587664-08-21 02:25:00 Test Item Value Reference Range Interpretation Comments eGFR (test code = eGFR) [address] [facility]2014-08-21 02:25:00 Test Item Value Reference Range Interpretation Comments CO2 (test code = CO2) 26 24-32 [place] 587664-08-21 02:25:00 Test Item Value Reference Range Interpretation Comments Albumin Lvl (test code = Albumin Lvl) 4.3 3.5-5.[address] [facility]2014-08-21 02:25:00 Test Item Value Reference Range Interpretation Comments ALT (test code = ALT) 28 See_Comment [Auto mated message] The system which ge nerated this result transmit ezequiel reference range : <=65. The reference range was not used to interpr et this result as grace l/abnormal. [facility]2014-08-21 02:25:00 Test Item Value Reference Range Interpretation Comments AST (test code = AST) 14 See_Comment [Auto mated message] The system which ge nerated this result transmit ezequiel reference range : <=37. The reference range was not used to interpr et this result as grace l/abnormal. [place] 587664-08-21 02:25:00 Test Item Value Reference Range Interpretation Comments Total Protein (test code = Total 7.4 6.4-8.4 Protein) [facility]2014-08-21 02:25:00 Test Item Value Reference Range Interpretation Comments Chloride Lvl (test code = Chloride Lvl) 107 95-[address] [facility]2014-08-21 02:25:00 Test Item Value Reference Range Interpretation Comments Potassium Lvl (test code = Potassium 3.4 3.5-5.1 Lvl) [facility]2014-08-21 02:25:00 Test Item Value Reference Range Interpretation Comments Calcium Lvl (test code = Calcium Lvl) 9.2 8.5-10.[address] [facility]2014-08-21 02:25:00 Test Item Value Reference Range Interpretation Comments Alk Phos (test code = Alk Phos) 64 39-[address] [facility]2014-08-21 02:25:00 Test Item Value Reference Range Interpretation Comments Bili Total (test code = Bili Total) 0.8 0.2-1.[address] [facility]2014-08-21 02:25:00 Test Item Value Reference Range Interpretation Comments Sodium Lvl (test code = Sodium Lvl) 140 135-[address] [facility]2014-08-21 02:25:00 Test Item Value Reference Range Interpretation Comments Glucose Lvl (test code = Glucose Lvl) 111 70-[address] [facility]2014-08-21 02:25:00 Test Item Value Reference Range Interpretation Comments Creatinine Lvl (test code = Creatinine 1.2 0.5-1.4 Lvl) [facility]2014-08-21 02:25:00 Test Item Value Reference Range Interpretation Comments BUN (test code = BUN) 12 7-22 [facility]landsNnwugewGUMAEMWHFN7786-73-53 02:25:00 Test Item Value Reference Range Interpretation Comments MCV (test code = MCV) 93.4 80.0-94.0 [facility]landsLaxzbthKFWREZPUCK1743-25-57 02:25:00 Test Item Value Reference Range Interpretation Comments MCHC (test code = MCHC) 34.3 32.0-36.0 [facility]lan[id number] 02:25:00 Test Item Value Reference Range Interpretation Comments MCH (test code = MCH) 32.1 pg 27.0-31.0 [facility]landsAlumkesCAXNPHQXPV7262-88-82 02:25:00 Test Item Value Reference Range Interpretation Comments RDW (test code = RDW) 13.4 11.5-14.5 [place] 689754-08-21 02:25:00 Test Item Value Reference Range Interpretation Comments Platelet (test code = Platelet) 184 133-450 [facility]landsXyfojoxKLVQUOKOZI3415-07-81 02:25:00 Test Item Value Reference Range Interpretation Comments MPV (test code = MPV) 9.7 7.4-10.4 [facility]landsWscdxmaZJLEWVOVYD1161-55-81 02:25:00 Test Item Value Reference Range Interpretation Comments RBC (test code = RBC) 4.82 4.70-6.10 [facility]landsIgjdnksDFYIMHSCTJ1379-03-03 02:25:00 Test Item Value Reference Range Interpretation Comments Hgb (test code = Hgb) 15.5 14.0-18.0 [facility]landsUyribhwWZNMOYODCD4195-75-55 02:25:00 Test Item Value Reference Range Interpretation Comments WBC (test code = WBC) 9.8 3.7-10.4 [facility]landsFmzczilDYFBVQCJTN8641-11-16 02:25:00 Test Item Value Reference Range Interpretation Comments Hct (test code = Hct) 45.1 42.0-54.0 [facility]landsRxqsjenUXDTXLAKTE6288-82-30 02:25:00 Test Item Value Reference Range Interpretation Comments PTT (test code = PTT) 33.2 s 22.9-35.8 [facility]landsPxudtcoTLBTGSMFIU8435-79-27 02:25:00 Test Item Value Reference Range Interpretation Comments PT (test code = PT) 12.9 s 12.0-14.7 [facility]landsQnrceicOVTSNNXKTT1132-11-70 02:25:00 Test Item Value Reference Range Interpretation Comments INR (test code = INR) 0.98 0.85-1.17 [facility][id number] 02:25:00 Test Item Value Reference Range Interpretation Comments Monocytes # (test code 0.9 See_Comment [Aut omated message] The = Monocytes #) system which generated this result tra nsmitted reference range : <=0.8. The reference r tony was not used to int erpret this result as normal/abnormal . [id number] 02:25:00 Test Item Value Reference Range Interpretation Comments Lymphocytes # (test code = Lymphocytes 4.1 1.0-5.5 #) [facility]landsAugiaxcKXWKBBFCYV8748-22-85 02:25:00 Test Item Value Reference Range Interpretation Comments Segs-Bands # (test code = Segs-Bands #) 4.5 1.5-8.1 [facility]landsZrhfkmvJDWEFXDSJW8318-81-48 02:25:00 Test Item Value Reference Range Interpretation Comments Basophils # (test code 0.1 See_Comment [Aut omated message] The = Basophils #) system which generated this result tra nsmitted reference range : <=0.2. The reference r tony was not used to int erpret this result as normal/abnormal . [facility]landsOoywthxSJOPCWIVRR6475-62-22 02:25:00 Test Item Value Reference Range Interpretation Comments Eosinophils # (test code 0.2 See_Comment [A utomated message] The = Eosinophils #) system whic h generated this result tra nsmitted reference range : <=0.5. The reference r tony was not used to int erpret this result as normal/abnormal . [facility]landsNrqeomnHPJRTXJWKF5694-01-17 02:25:00 Test Item Value Reference Range Interpretation Comments Segs (test code = Segs) 46.2 45.0-75.0 [facility]landsTyinozqQIKADHJNKX4454-68-38 02:25:00 Test Item Value Reference Range Interpretation Comments Eosinophils (test code = 1.6 See_Comment [A utomated message] The Eosinophils) system which ge nerated this result tra nsmitted reference range : <=4.0. The reference r tony was not used to int erpret this result as normal/abnormal . [facility]landsVvftnhnTJRCJAADKP1664-03-11 02:25:00 Test Item Value Reference Range Interpretation Comments Lymphocytes (test code = Lymphocytes) 42.3 20.0-40.0 [facility]landsWykzwkrSASYZDAZFX8923-68-11 02:25:00 Test Item Value Reference Range Interpretation Comments Basophils (test code = 0.7 See_Comment [Aut omated message] The Basophils) system which ge nerated this result tra nsmitted reference range : <=1.0. The reference r tony was not used to int erpret this result as normal/abnormal . [facility]landsFemrpjaKRNMVDRHJF5001-95-16 02:25:00 Test Item Value Reference Range Interpretation Comments Monocytes (test code = Monocytes) 9.2 2.0-12.0 [facility] HospitalKugkndqNMTDSGYXFP3636-13-94 02:25:00 Test Item Value Reference Range Interpretation Comments CDC HIV 4th GEN (test Negative (01/20/14 9:25 code = CDC HIV 4th PM) GEN) [facility] AND [id number] 23:45:00 Test Item Value Reference Range Interpretation Comments UA Nitrite (test code Negative (12/16/13 6:45 = UA Nitrite) PM) [facility] AND [id number] 23:45:00 Test Item Value Reference Range Interpretation Comments UA Urobilinogen (test code = UA 0.2 0.1-1.0 Urobilinogen) [facility] AND [id number] 23:45:00 Test Item Value Reference Range Interpretation Comments UA Leuk Est (test Negative (12/16/13 6:45 code = UA Leuk Est) PM) [facility] AND [id number] 23:45:00 Test Item Value Reference Range Interpretation Comments UA Spec Grav (test code = UA Spec 1.025 1 Grav) [facility] AND [id number] 23:45:00 Test Item Value Reference Range Interpretation Comments UA Turbidity (test code = Clear (12/16/13 6:45 UA Turbidity) PM) [facility] AND [id number] 23:45:00 Test Item Value Reference Range Interpretation Comments UA Color (test code = Yellow *NA*(12/16/13 UA Color) 6:45 PM) [facility] AND [id number] 23:45:00 Test Item Value Reference Range Interpretation Comments UA Bili (test code = Negative *NA*(12/16/13 UA Bili) 6:45 PM) [facility] AND [id number] 23:45:00 Test Item Value Reference Range Interpretation Comments UA Blood (test code = Negative (12/16/13 6:45 UA Blood) PM) [facility] AND [id number] 23:45:00 Test Item Value Reference Range Interpretation Comments UA Glucose (test code = UA Negative mg/dL Glucose) [facility] AND [id number] 23:45:00 Test Item Value Reference Range Interpretation Comments UA Ketones (test code = UA Negative mg/dL Ketones) [facility] AND [id number] 23:45:00 Test Item Value Reference Range Interpretation Comments UA pH (test code = UA pH) 6.0 1 5.0-8.0 [facility] AND [id number] 23:45:00 Test Item Value Reference Range Interpretation Comments UA Protein (test code = UA Negative mg/dL Protein) [facility] AND [id number] 23:45:00 Test Item Value Reference Range Interpretation Comments UA Bacteria (test code = UA Occasional /HPF Bacteria) [facility] AND [id number] 23:45:00 Test Item Value Reference Range Interpretation Comments UA Mucus (test code = UA Mucus) Few /LPF [facility] AND [id number] 23:45:00 Test Item Value Reference Range Interpretation Comments Micro? (test code = Performed (12/16/13 6:45 Micro?) PM) [facility] AND [id number] 23:45:00 Test Item Value Reference Range Interpretation Comments UA RBC (test code = 0-2 /HPF See_Comment [Automa ezequiel message] The UA RBC) system which ge nerated this result tra nsmitted reference range : <=2. The reference range was not used to interpr et this result as grace l/abnormal. [facility] AND [id number] 23:45:00 Test Item Value Reference Range Interpretation Comments UA Sq Epi (test code = UA Sq Occasional /LPF Epi) [facility] AND [id number] 23:45:00 Test Item Value Reference Range Interpretation Comments UA WBC (test code = UA WBC) 0-2 /HPF [facility] AND [id number] 23:45:00 Test Item Value Reference Range Interpretation Comments UA Nitrite (test code Negative (12/16/13 6:45 = UA Nitrite) PM) [facility] AND [id number] 23:45:00 Test Item Value Reference Range Interpretation Comments UA Urobilinogen (test code = UA 0.2 0.1-1.0 Urobilinogen) [facility] AND [id number] 23:45:00 Test Item Value Reference Range Interpretation Comments UA Leuk Est (test Negative (12/16/13 6:45 code = UA Leuk Est) PM) [facility] AND [id number] 23:45:00 Test Item Value Reference Range Interpretation Comments UA Spec Grav (test code = UA Spec 1.025 1 Grav) [facility] AND [id number] 23:45:00 Test Item Value Reference Range Interpretation Comments UA Turbidity (test code = Clear (12/16/13 6:45 UA Turbidity) PM) [facility] AND [id number] 23:45:00 Test Item Value Reference Range Interpretation Comments UA Color (test code = Yellow *NA*(12/16/13 UA Color) 6:45 PM) [facility] AND [id number] 23:45:00 Test Item Value Reference Range Interpretation Comments UA Bili (test code = Negative *NA*(12/16/13 UA Bili) 6:45 PM) [facility] AND [id number] 23:45:00 Test Item Value Reference Range Interpretation Comments UA Blood (test code = Negative (12/16/13 6:45 UA Blood) PM) [facility] AND [id number] 23:45:00 Test Item Value Reference Range Interpretation Comments UA Glucose (test code = UA Negative mg/dL Glucose) [facility] AND [id number] 23:45:00 Test Item Value Reference Range Interpretation Comments UA Ketones (test code = UA Negative mg/dL Ketones) [facility] AND [id number] 23:45:00 Test Item Value Reference Range Interpretation Comments UA pH (test code = UA pH) 6.0 1 5.0-8.0 [facility] AND [id number] 23:45:00 Test Item Value Reference Range Interpretation Comments UA Protein (test code = UA Negative mg/dL Protein) [facility] AND [id number] 23:45:00 Test Item Value Reference Range Interpretation Comments UA Bacteria (test code = UA Occasional /HPF Bacteria) [facility] AND [id number] 23:45:00 Test Item Value Reference Range Interpretation Comments UA Mucus (test code = UA Mucus) Few /LPF [facility] AND [id number] 23:45:00 Test Item Value Reference Range Interpretation Comments Micro? (test code = Performed (12/16/13 6:45 Micro?) PM) [facility] AND [id number] 23:45:00 Test Item Value Reference Range Interpretation Comments UA RBC (test code = 0-2 /HPF See_Comment [Automa ezequiel message] The UA RBC) system which ge nerated this result tra nsmitted reference range : <=2. The reference range was not used to interpr et this result as grace l/abnormal. [facility] AND [id number] 23:45:00 Test Item Value Reference Range Interpretation Comments UA Sq Epi (test code = UA Sq Occasional /LPF Epi) [facility] AND [id number] 23:45:00 Test Item Value Reference Range Interpretation Comments UA WBC (test code = UA WBC) 0-2 /HPF [facility] AND [id number] 23:45:00 Test Item Value Reference Range Interpretation Comments UA Nitrite (test code Negative (12/16/13 6:45 = UA Nitrite) PM) [facility] AND [id number] 23:45:00 Test Item Value Reference Range Interpretation Comments UA Urobilinogen (test code = UA 0.2 0.1-1.0 Urobilinogen) [facility] AND [id number] 23:45:00 Test Item Value Reference Range Interpretation Comments UA Leuk Est (test Negative (12/16/13 6:45 code = UA Leuk Est) PM) [facility] AND [id number] 23:45:00 Test Item Value Reference Range Interpretation Comments UA Spec Grav (test code = UA Spec 1.025 1 Grav) [facility] AND [id number] 23:45:00 Test Item Value Reference Range Interpretation Comments UA Turbidity (test code = Clear (12/16/13 6:45 UA Turbidity) PM) [facility] AND [id number] 23:45:00 Test Item Value Reference Range Interpretation Comments UA Color (test code = Yellow *NA*(12/16/13 UA Color) 6:45 PM) [facility] AND [id number] 23:45:00 Test Item Value Reference Range Interpretation Comments UA Bili (test code = Negative *NA*(12/16/13 UA Bili) 6:45 PM) [facility] AND [id number] 23:45:00 Test Item Value Reference Range Interpretation Comments UA Blood (test code = Negative (12/16/13 6:45 UA Blood) PM) [facility] AND [id number] 23:45:00 Test Item Value Reference Range Interpretation Comments UA Glucose (test code = UA Negative mg/dL Glucose) [facility] AND [id number] 23:45:00 Test Item Value Reference Range Interpretation Comments UA Ketones (test code = UA Negative mg/dL Ketones) [facility] AND [id number] 23:45:00 Test Item Value Reference Range Interpretation Comments UA pH (test code = UA pH) 6.0 1 5.0-8.0 [facility] AND [id number] 23:45:00 Test Item Value Reference Range Interpretation Comments UA Protein (test code = UA Negative mg/dL Protein) [facility] AND [id number] 23:45:00 Test Item Value Reference Range Interpretation Comments UA Bacteria (test code = UA Occasional /HPF Bacteria) [facility] AND [id number] 23:45:00 Test Item Value Reference Range Interpretation Comments UA Mucus (test code = UA Mucus) Few /LPF [facility] AND [id number] 23:45:00 Test Item Value Reference Range Interpretation Comments Micro? (test code = Performed (12/16/13 6:45 Micro?) PM) [facility] AND [id number] 23:45:00 Test Item Value Reference Range Interpretation Comments UA RBC (test code = 0-2 /HPF See_Comment [Automa ezequiel message] The UA RBC) system which ge nerated this result tra nsmitted reference range : <=2. The reference range was not used to interpr et this result as grace l/abnormal. [facility] AND [id number] 23:45:00 Test Item Value Reference Range Interpretation Comments UA Sq Epi (test code = UA Sq Occasional /LPF Epi) [facility] AND [id number] 23:45:00 Test Item Value Reference Range Interpretation Comments UA WBC (test code = UA WBC) 0-2 /HPF [facility] AND [id number] 23:45:00 Test Item Value Reference Range Interpretation Comments UA Nitrite (test code Negative (12/16/13 6:45 = UA Nitrite) PM) [facility] AND [id number] 23:45:00 Test Item Value Reference Range Interpretation Comments UA Urobilinogen (test code = UA 0.2 0.1-1.0 Urobilinogen) [facility] AND [id number] 23:45:00 Test Item Value Reference Range Interpretation Comments UA Leuk Est (test Negative (12/16/13 6:45 code = UA Leuk Est) PM) [facility] AND [id number] 23:45:00 Test Item Value Reference Range Interpretation Comments UA Spec Grav (test code = UA Spec 1.025 1 Grav) [facility] AND [id number] 23:45:00 Test Item Value Reference Range Interpretation Comments UA Turbidity (test code = Clear (12/16/13 6:45 UA Turbidity) PM) [facility] AND [id number] 23:45:00 Test Item Value Reference Range Interpretation Comments UA Color (test code = Yellow *NA*(12/16/13 UA Color) 6:45 PM) [facility] AND [id number] 23:45:00 Test Item Value Reference Range Interpretation Comments UA Bili (test code = Negative *NA*(12/16/13 UA Bili) 6:45 PM) [facility] AND [id number] 23:45:00 Test Item Value Reference Range Interpretation Comments UA Blood (test code = Negative (12/16/13 6:45 UA Blood) PM) [facility] AND [id number] 23:45:00 Test Item Value Reference Range Interpretation Comments UA Glucose (test code = UA Negative mg/dL Glucose) [facility] AND [id number] 23:45:00 Test Item Value Reference Range Interpretation Comments UA Ketones (test code = UA Negative mg/dL Ketones) [facility] AND [id number] 23:45:00 Test Item Value Reference Range Interpretation Comments UA pH (test code = UA pH) 6.0 1 5.0-8.0 [facility] AND [id number] 23:45:00 Test Item Value Reference Range Interpretation Comments UA Protein (test code = UA Negative mg/dL Protein) [facility] AND [id number] 23:45:00 Test Item Value Reference Range Interpretation Comments UA Bacteria (test code = UA Occasional /HPF Bacteria) [facility] AND [id number] 23:45:00 Test Item Value Reference Range Interpretation Comments UA Mucus (test code = UA Mucus) Few /LPF [facility] AND [id number] 23:45:00 Test Item Value Reference Range Interpretation Comments Micro? (test code = Performed (12/16/13 6:45 Micro?) PM) [facility] AND [id number] 23:45:00 Test Item Value Reference Range Interpretation Comments UA RBC (test code = 0-2 /HPF See_Comment [Automa ezequiel message] The UA RBC) system which ge nerated this result tra nsmitted reference range : <=2. The reference range was not used to interpr et this result as grace l/abnormal. [facility] AND [id number] 23:45:00 Test Item Value Reference Range Interpretation Comments UA Sq Epi (test code = UA Sq Occasional /LPF Epi) [facility] AND [id number] 23:45:00 Test Item Value Reference Range Interpretation Comments UA WBC (test code = UA WBC) 0-2 /HPF [facility]2014-07-16 22:20:00 Test Item Value Reference Range Interpretation Comments Lipase Lvl (test code = Lipase Lvl) 151 73-[address] [facility]2014-07-16 22:20:00 Test Item Value Reference Range Interpretation Comments eGFR (test code = eGFR) [address] [facility]2014-07-16 22:20:00 Test Item Value Reference Range Interpretation Comments AST (test code = AST) 23 See_Comment [Auto mated message] The system which ge nerated this result transmit ezequiel reference range : <=37. The reference range was not used to interpr et this result as grace l/abnormal. [facility]2014-07-16 22:20:00 Test Item Value Reference Range Interpretation Comments Alk Phos (test code = Alk Phos) 67 39-[address] [facility]2014-07-16 22:20:00 Test Item Value Reference Range Interpretation Comments Bili Total (test code = Bili Total) 0.7 0.2-1.[address] [facility]2014-07-16 22:20:00 Test Item Value Reference Range Interpretation Comments Albumin Lvl (test code = Albumin Lvl) 5.0 3.5-5.[address] [facility]2014-07-16 22:20:00 Test Item Value Reference Range Interpretation Comments ALT (test code = ALT) 43 See_Comment [Auto mated message] The system which ge nerated this result transmit ezequiel reference range : <=65. The reference range was not used to interpr et this result as grace l/abnormal. [facility]2014-07-16 22:20:00 Test Item Value Reference Range Interpretation Comments BUN (test code = BUN) 22 7-[address] [facility]2014-07-16 22:20:00 Test Item Value Reference Range Interpretation Comments Glucose Lvl (test code = Glucose Lvl) 90 70-[address] [facility]2014-07-16 22:20:00 Test Item Value Reference Range Interpretation Comments Creatinine Lvl (test code = Creatinine 1.1 0.5-1.4 Lvl) [facility]2014-07-16 22:20:00 Test Item Value Reference Range Interpretation Comments Sodium Lvl (test code = Sodium Lvl) 140 135-[address] [facility]2014-07-16 22:20:00 Test Item Value Reference Range Interpretation Comments Potassium Lvl (test code = Potassium 4.0 3.5-5.1 Lvl) [facility]2014-07-16 22:20:00 Test Item Value Reference Range Interpretation Comments Calcium Lvl (test code = Calcium Lvl) 9.5 8.5-10.[address] [facility]2014-07-16 22:20:00 Test Item Value Reference Range Interpretation Comments Total Protein (test code = Total 8.3 6.4-8.4 Protein) [facility]2014-07-16 22:20:00 Test Item Value Reference Range Interpretation Comments Chloride Lvl (test code = Chloride Lvl) 104 95-[address] [facility]2014-07-16 22:20:00 Test Item Value Reference Range Interpretation Comments CO2 (test code = CO2) 27 24-[address] [facility]2014-07-16 22:20:00 Test Item Value Reference Range Interpretation Comments AGAP (test code = AGAP) 13.0 10.0-20.[address] [facility]2014-07-16 22:20:00 Test Item Value Reference Range Interpretation Comments B/C Ratio (test code = B/C Ratio) 20 6-[address] [facility]2014-07-16 22:20:00 Test Item Value Reference Range Interpretation Comments Globulin (test code = Globulin) 3.3 2.0-4.[address] [facility]2014-07-16 22:20:00 Test Item Value Reference Range Interpretation Comments A/G Ratio (test code = A/G Ratio) 1.5 0.7-1.6 [id number] 22:20:00 Test Item Value Reference Range Interpretation Comments Basophils # (test code 0.1 See_Comment [Aut omated message] The = Basophils #) system which generated this result tra nsmitted reference range : <=0.2. The reference r tony was not used to int erpret this result as normal/abnormal . [id number] 22:20:00 Test Item Value Reference Range Interpretation Comments Monocytes # (test code 0.9 See_Comment [Aut omated message] The = Monocytes #) system which generated this result tra nsmitted reference range : <=0.8. The reference r tony was not used to int erpret this result as normal/abnormal . [id number] 22:20:00 Test Item Value Reference Range Interpretation Comments Eosinophils # (test code 0.3 See_Comment [A utomated message] The = Eosinophils #) system whic h generated this result tra nsmitted reference range : <=0.5. The reference r tony was not used to int erpret this result as normal/abnormal . [id number] 22:20:00 Test Item Value Reference Range Interpretation Comments Segs-Bands # (test code = Segs-Bands #) 6.5 1.5-8.1 [id number] 22:20:00 Test Item Value Reference Range Interpretation Comments Lymphocytes # (test code = Lymphocytes 3.3 1.0-5.5 #) [id number] 22:20:00 Test Item Value Reference Range Interpretation Comments Basophils (test code = 0.8 See_Comment [Aut omated message] The Basophils) system which ge nerated this result tra nsmitted reference range : <=1.0. The reference r tony was not used to int erpret this result as normal/abnormal . [id number] 22:20:00 Test Item Value Reference Range Interpretation Comments Eosinophils (test code = 2.3 See_Comment [A utomated message] The Eosinophils) system which ge nerated this result tra nsmitted reference range : <=4.0. The reference r tony was not used to int erpret this result as normal/abnormal . [id number] 22:20:00 Test Item Value Reference Range Interpretation Comments Lymphocytes (test code = Lymphocytes) 29.9 20.0-40.0 [id number] 22:20:00 Test Item Value Reference Range Interpretation Comments Monocytes (test code = Monocytes) 7.9 2.0-12.0 [facility]landsCwwvjjgASZRZNKPOK1426-15-02 22:20:00 Test Item Value Reference Range Interpretation Comments Segs (test code = Segs) 59.1 45.0-75.0 [facility]lan[id number] 22:20:00 Test Item Value Reference Range Interpretation Comments MPV (test code = MPV) 9.4 7.4-10.4 [id number] 22:20:00 Test Item Value Reference Range Interpretation Comments RDW (test code = RDW) 13.8 11.5-14.5 [id number] 22:20:00 Test Item Value Reference Range Interpretation Comments Platelet (test code = Platelet) 234 133-450 [id number] 22:20:00 Test Item Value Reference Range Interpretation Comments MCHC (test code = MCHC) 34.3 32.0-36.0 [facility]lan[id number] 22:20:00 Test Item Value Reference Range Interpretation Comments MCH (test code = MCH) 32.6 pg 27.0-31.0 [id number] 22:20:00 Test Item Value Reference Range Interpretation Comments Hgb (test code = Hgb) 16.3 14.0-18.0 [facility]lan[id number] 22:20:00 Test Item Value Reference Range Interpretation Comments MCV (test code = MCV) 95.0 80.0-94.0 [facility]lan[id number] 22:20:00 Test Item Value Reference Range Interpretation Comments Hct (test code = Hct) 47.5 42.0-54.0 [facility][id number] 22:20:00 Test Item Value Reference Range Interpretation Comments RBC (test code = RBC) 5.00 4.70-6.10 [facility]landsVewbornVEVUZHRIOE5321-12-03 22:20:00 Test Item Value Reference Range Interpretation Comments WBC (test code = WBC) 11.0 3.7-10.[address] [facility]2014-07-16 22:20:00 Test Item Value Reference Range Interpretation Comments Lipase Lvl (test code = Lipase Lvl) 151 73-[address] [facility]2014-07-16 22:20:00 Test Item Value Reference Range Interpretation Comments eGFR (test code = eGFR) [address] [facility]2014-07-16 22:20:00 Test Item Value Reference Range Interpretation Comments AST (test code = AST) 23 See_Comment [Auto mated message] The system which ge nerated this result transmit ezequiel reference range : <=37. The reference range was not used to interpr et this result as grace l/abnormal. [facility]2014-07-16 22:20:00 Test Item Value Reference Range Interpretation Comments Alk Phos (test code = Alk Phos) 67 39-[address] [facility]2014-07-16 22:20:00 Test Item Value Reference Range Interpretation Comments Bili Total (test code = Bili Total) 0.7 0.2-1.[address] [facility]2014-07-16 22:20:00 Test Item Value Reference Range Interpretation Comments Albumin Lvl (test code = Albumin Lvl) 5.0 3.5-5.[address] [facility]2014-07-16 22:20:00 Test Item Value Reference Range Interpretation Comments ALT (test code = ALT) 43 See_Comment [Auto mated message] The system which ge nerated this result transmit ezequiel reference range : <=65. The reference range was not used to interpr et this result as grace l/abnormal. [facility]2014-07-16 22:20:00 Test Item Value Reference Range Interpretation Comments BUN (test code = BUN) 22 7-[address] [facility]2014-07-16 22:20:00 Test Item Value Reference Range Interpretation Comments Glucose Lvl (test code = Glucose Lvl) 90 70-[address] [facility]2014-07-16 22:20:00 Test Item Value Reference Range Interpretation Comments Creatinine Lvl (test code = Creatinine 1.1 0.5-1.4 Lvl) [facility]2014-07-16 22:20:00 Test Item Value Reference Range Interpretation Comments Sodium Lvl (test code = Sodium Lvl) 140 135-[address] [facility]2014-07-16 22:20:00 Test Item Value Reference Range Interpretation Comments Potassium Lvl (test code = Potassium 4.0 3.5-5.1 Lvl) [facility]2014-07-16 22:20:00 Test Item Value Reference Range Interpretation Comments Calcium Lvl (test code = Calcium Lvl) 9.5 8.5-10.[address] [facility]2014-07-16 22:20:00 Test Item Value Reference Range Interpretation Comments Total Protein (test code = Total 8.3 6.4-8.4 Protein) [facility]2014-07-16 22:20:00 Test Item Value Reference Range Interpretation Comments Chloride Lvl (test code = Chloride Lvl) 104 95-[address] [facility]2014-07-16 22:20:00 Test Item Value Reference Range Interpretation Comments CO2 (test code = CO2) 27 24-[address] [facility]2014-07-16 22:20:00 Test Item Value Reference Range Interpretation Comments AGAP (test code = AGAP) 13.0 10.0-20.[address] [facility]2014-07-16 22:20:00 Test Item Value Reference Range Interpretation Comments B/C Ratio (test code = B/C Ratio) 20 6-[address] [facility]2014-07-16 22:20:00 Test Item Value Reference Range Interpretation Comments Globulin (test code = Globulin) 3.3 2.0-4.[address] [facility]2014-07-16 22:20:00 Test Item Value Reference Range Interpretation Comments A/G Ratio (test code = A/G Ratio) 1.5 0.7-1.6 [facility][id number] 22:20:00 Test Item Value Reference Range Interpretation Comments Basophils # (test code 0.1 See_Comment [Aut omated message] The = Basophils #) system which generated this result tra nsmitted reference range : <=0.2. The reference r tony was not used to int erpret this result as normal/abnormal . [facility]lan[id number] 22:20:00 Test Item Value Reference Range Interpretation Comments Monocytes # (test code 0.9 See_Comment [Aut omated message] The = Monocytes #) system which generated this result tra nsmitted reference range : <=0.8. The reference r tony was not used to int erpret this result as normal/abnormal . [facility]landsKalaxspAOKADEQYOG2104-79-47 22:20:00 Test Item Value Reference Range Interpretation Comments Eosinophils # (test code 0.3 See_Comment [A utomated message] The = Eosinophils #) system whic h generated this result tra nsmitted reference range : <=0.5. The reference r tony was not used to int erpret this result as normal/abnormal . [facility]lan[id number] 22:20:00 Test Item Value Reference Range Interpretation Comments Segs-Bands # (test code = Segs-Bands #) 6.5 1.5-8.1 [facility]lan[id number] 22:20:00 Test Item Value Reference Range Interpretation Comments Lymphocytes # (test code = Lymphocytes 3.3 1.0-5.5 #) [facility]landsApzavjnAQLSSXPXPV6147-91-94 22:20:00 Test Item Value Reference Range Interpretation Comments Basophils (test code = 0.8 See_Comment [Aut omated message] The Basophils) system which ge nerated this result tra nsmitted reference range : <=1.0. The reference r tony was not used to int erpret this result as normal/abnormal . [facility]lan[id number] 22:20:00 Test Item Value Reference Range Interpretation Comments Eosinophils (test code = 2.3 See_Comment [A utomated message] The Eosinophils) system which ge nerated this result tra nsmitted reference range : <=4.0. The reference r tony was not used to int erpret this result as normal/abnormal . [facility]landsRmkempoFCJJQGAPHR6582-53-28 22:20:00 Test Item Value Reference Range Interpretation Comments Lymphocytes (test code = Lymphocytes) 29.9 20.0-40.0 [facility]lan[id number] 22:20:00 Test Item Value Reference Range Interpretation Comments Monocytes (test code = Monocytes) 7.9 2.0-12.0 [facility]landsWhumiynKIRSMTSCEJ3647-36-12 22:20:00 Test Item Value Reference Range Interpretation Comments Segs (test code = Segs) 59.1 45.0-75.0 [facility]landsIugreaeXMXBDHKFDT9477-43-25 22:20:00 Test Item Value Reference Range Interpretation Comments MPV (test code = MPV) 9.4 7.4-10.4 [facility]landsBbjgtflIOMNJAOWSQ2263-09-67 22:20:00 Test Item Value Reference Range Interpretation Comments RDW (test code = RDW) 13.8 11.5-14.5 [facility]lan[id number] 22:20:00 Test Item Value Reference Range Interpretation Comments Platelet (test code = Platelet) 234 133-450 [facility]lan[id number] 22:20:00 Test Item Value Reference Range Interpretation Comments MCHC (test code = MCHC) 34.3 32.0-36.0 [facility]landsPhlkjksIOYRRZELLY7579-80-79 22:20:00 Test Item Value Reference Range Interpretation Comments MCH (test code = MCH) 32.6 pg 27.0-31.0 [facility]landsVbnvkzxIXSZJBNWFH7017-40-23 22:20:00 Test Item Value Reference Range Interpretation Comments Hgb (test code = Hgb) 16.3 14.0-18.0 [facility]landsKooyhkcUJNHWXIOQY3643-52-45 22:20:00 Test Item Value Reference Range Interpretation Comments MCV (test code = MCV) 95.0 80.0-94.0 [facility]lan[id number] 22:20:00 Test Item Value Reference Range Interpretation Comments Hct (test code = Hct) 47.5 42.0-54.0 [facility][id number] 22:20:00 Test Item Value Reference Range Interpretation Comments RBC (test code = RBC) 5.00 4.70-6.10 [facility]landsVehkusyNMSDNQCXXD0267-37-10 22:20:00 Test Item Value Reference Range Interpretation Comments WBC (test code = WBC) 11.0 3.7-10.[address] [facility]2014-07-16 22:20:00 Test Item Value Reference Range Interpretation Comments Lipase Lvl (test code = Lipase Lvl) 151 73-[address] [facility]2014-07-16 22:20:00 Test Item Value Reference Range Interpretation Comments eGFR (test code = eGFR) [address] [facility]2014-07-16 22:20:00 Test Item Value Reference Range Interpretation Comments AST (test code = AST) 23 See_Comment [Auto mated message] The system which ge nerated this result transmit ezequiel reference range : <=37. The reference range was not used to interpr et this result as grace l/abnormal. [facility]2014-07-16 22:20:00 Test Item Value Reference Range Interpretation Comments Alk Phos (test code = Alk Phos) 67 39-[address] [facility]2014-07-16 22:20:00 Test Item Value Reference Range Interpretation Comments Bili Total (test code = Bili Total) 0.7 0.2-1.[address] [facility]2014-07-16 22:20:00 Test Item Value Reference Range Interpretation Comments Albumin Lvl (test code = Albumin Lvl) 5.0 3.5-5.[address] [facility]2014-07-16 22:20:00 Test Item Value Reference Range Interpretation Comments ALT (test code = ALT) 43 See_Comment [Auto mated message] The system which ge nerated this result transmit ezequiel reference range : <=65. The reference range was not used to interpr et this result as grace l/abnormal. [facility]2014-07-16 22:20:00 Test Item Value Reference Range Interpretation Comments BUN (test code = BUN) 22 7-[address] [facility]2014-07-16 22:20:00 Test Item Value Reference Range Interpretation Comments Glucose Lvl (test code = Glucose Lvl) 90 70-[address] [facility]2014-07-16 22:20:00 Test Item Value Reference Range Interpretation Comments Creatinine Lvl (test code = Creatinine 1.1 0.5-1.4 Lvl) [facility]2014-07-16 22:20:00 Test Item Value Reference Range Interpretation Comments Sodium Lvl (test code = Sodium Lvl) 140 135-[address] [facility]2014-07-16 22:20:00 Test Item Value Reference Range Interpretation Comments Potassium Lvl (test code = Potassium 4.0 3.5-5.1 Lvl) [facility]2014-07-16 22:20:00 Test Item Value Reference Range Interpretation Comments Calcium Lvl (test code = Calcium Lvl) 9.5 8.5-10.[address] [facility]2014-07-16 22:20:00 Test Item Value Reference Range Interpretation Comments Total Protein (test code = Total 8.3 6.4-8.4 Protein) [facility]2014-07-16 22:20:00 Test Item Value Reference Range Interpretation Comments Chloride Lvl (test code = Chloride Lvl) 104 95-[address] [facility]2014-07-16 22:20:00 Test Item Value Reference Range Interpretation Comments CO2 (test code = CO2) 27 24-[address] [facility]2014-07-16 22:20:00 Test Item Value Reference Range Interpretation Comments AGAP (test code = AGAP) 13.0 10.0-20.[address] [facility]2014-07-16 22:20:00 Test Item Value Reference Range Interpretation Comments B/C Ratio (test code = B/C Ratio) 20 6-[address] [facility]2014-07-16 22:20:00 Test Item Value Reference Range Interpretation Comments Globulin (test code = Globulin) 3.3 2.0-4.[address] [facility]2014-07-16 22:20:00 Test Item Value Reference Range Interpretation Comments A/G Ratio (test code = A/G Ratio) 1.5 0.7-1.6 [id number] 22:20:00 Test Item Value Reference Range Interpretation Comments Basophils # (test code 0.1 See_Comment [Aut omated message] The = Basophils #) system which generated this result tra nsmitted reference range : <=0.2. The reference r tony was not used to int erpret this result as normal/abnormal . [id number] 22:20:00 Test Item Value Reference Range Interpretation Comments Monocytes # (test code 0.9 See_Comment [Aut omated message] The = Monocytes #) system which generated this result tra nsmitted reference range : <=0.8. The reference r tony was not used to int erpret this result as normal/abnormal . [id number] 22:20:00 Test Item Value Reference Range Interpretation Comments Eosinophils # (test code 0.3 See_Comment [A utomated message] The = Eosinophils #) system whic h generated this result tra nsmitted reference range : <=0.5. The reference r tony was not used to int erpret this result as normal/abnormal . [id number] 22:20:00 Test Item Value Reference Range Interpretation Comments Segs-Bands # (test code = Segs-Bands #) 6.5 1.5-8.1 [id number] 22:20:00 Test Item Value Reference Range Interpretation Comments Lymphocytes # (test code = Lymphocytes 3.3 1.0-5.5 #) [facility][id number] 22:20:00 Test Item Value Reference Range Interpretation Comments Basophils (test code = 0.8 See_Comment [Aut omated message] The Basophils) system which ge nerated this result tra nsmitted reference range : <=1.0. The reference r tony was not used to int erpret this result as normal/abnormal . [id number] 22:20:00 Test Item Value Reference Range Interpretation Comments Eosinophils (test code = 2.3 See_Comment [A utomated message] The Eosinophils) system which ge nerated this result tra nsmitted reference range : <=4.0. The reference r tony was not used to int erpret this result as normal/abnormal . [facility][id number] 22:20:00 Test Item Value Reference Range Interpretation Comments Lymphocytes (test code = Lymphocytes) 29.9 20.0-40.0 [id number] 22:20:00 Test Item Value Reference Range Interpretation Comments Monocytes (test code = Monocytes) 7.9 2.0-12.0 [facility]lan[id number] 22:20:00 Test Item Value Reference Range Interpretation Comments Segs (test code = Segs) 59.1 45.0-75.0 [facility]lan[id number] 22:20:00 Test Item Value Reference Range Interpretation Comments MPV (test code = MPV) 9.4 7.4-10.4 [id number] 22:20:00 Test Item Value Reference Range Interpretation Comments RDW (test code = RDW) 13.8 11.5-14.5 [id number] 22:20:00 Test Item Value Reference Range Interpretation Comments Platelet (test code = Platelet) 234 133-450 [id number] 22:20:00 Test Item Value Reference Range Interpretation Comments MCHC (test code = MCHC) 34.3 32.0-36.0 [facility]landsVhdwlaoYEJAIXNCHO4622-12-32 22:20:00 Test Item Value Reference Range Interpretation Comments MCH (test code = MCH) 32.6 pg 27.0-31.0 [id number] 22:20:00 Test Item Value Reference Range Interpretation Comments Hgb (test code = Hgb) 16.3 14.0-18.0 [id number] 22:20:00 Test Item Value Reference Range Interpretation Comments MCV (test code = MCV) 95.0 80.0-94.0 [facility][id number] 22:20:00 Test Item Value Reference Range Interpretation Comments Hct (test code = Hct) 47.5 42.0-54.0 [facility]landsNgtphqgBKKHRAIAHW0901-87-10 22:20:00 Test Item Value Reference Range Interpretation Comments RBC (test code = RBC) 5.00 4.70-6.10 [id number] 22:20:00 Test Item Value Reference Range Interpretation Comments WBC (test code = WBC) 11.0 3.7-10.[address] [facility]2014-07-16 22:20:00 Test Item Value Reference Range Interpretation Comments Lipase Lvl (test code = Lipase Lvl) 151 73-[address] [facility]2014-07-16 22:20:00 Test Item Value Reference Range Interpretation Comments eGFR (test code = eGFR) [address] [facility]2014-07-16 22:20:00 Test Item Value Reference Range Interpretation Comments AST (test code = AST) 23 See_Comment [Auto mated message] The system which ge nerated this result transmit ezequiel reference range : <=37. The reference range was not used to interpr et this result as grace l/abnormal. [facility]2014-07-16 22:20:00 Test Item Value Reference Range Interpretation Comments Alk Phos (test code = Alk Phos) 67 39-[address] [facility]2014-07-16 22:20:00 Test Item Value Reference Range Interpretation Comments Bili Total (test code = Bili Total) 0.7 0.2-1.[address] [facility]2014-07-16 22:20:00 Test Item Value Reference Range Interpretation Comments Albumin Lvl (test code = Albumin Lvl) 5.0 3.5-5.[address] [facility]2014-07-16 22:20:00 Test Item Value Reference Range Interpretation Comments ALT (test code = ALT) 43 See_Comment [Auto mated message] The system which ge nerated this result transmit ezequiel reference range : <=65. The reference range was not used to interpr et this result as grace l/abnormal. [facility] [id number] 22:20:00 Test Item Value Reference Range Interpretation Comments BUN (test code = BUN) 22 7-[address] [facility]2014-07-16 22:20:00 Test Item Value Reference Range Interpretation Comments Glucose Lvl (test code = Glucose Lvl) 90 70-[address] [facility]2014-07-16 22:20:00 Test Item Value Reference Range Interpretation Comments Creatinine Lvl (test code = Creatinine 1.1 0.5-1.4 Lvl) [facility]2014-07-16 22:20:00 Test Item Value Reference Range Interpretation Comments Sodium Lvl (test code = Sodium Lvl) 140 135-[address] [facility]2014-07-16 22:20:00 Test Item Value Reference Range Interpretation Comments Potassium Lvl (test code = Potassium 4.0 3.5-5.1 Lvl) [facility]2014-07-16 22:20:00 Test Item Value Reference Range Interpretation Comments Calcium Lvl (test code = Calcium Lvl) 9.5 8.5-10.[address] [facility]2014-07-16 22:20:00 Test Item Value Reference Range Interpretation Comments Total Protein (test code = Total 8.3 6.4-8.4 Protein) [facility]2014-07-16 22:20:00 Test Item Value Reference Range Interpretation Comments Chloride Lvl (test code = Chloride Lvl) 104 95-[address] [facility]2014-07-16 22:20:00 Test Item Value Reference Range Interpretation Comments CO2 (test code = CO2) 27 24-[address] [facility]2014-07-16 22:20:00 Test Item Value Reference Range Interpretation Comments AGAP (test code = AGAP) 13.0 10.0-20.[address] [facility]2014-07-16 22:20:00 Test Item Value Reference Range Interpretation Comments B/C Ratio (test code = B/C Ratio) 20 6-[address] [facility]2014-07-16 22:20:00 Test Item Value Reference Range Interpretation Comments Globulin (test code = Globulin) 3.3 2.0-4.[address] [facility]2014-07-16 22:20:00 Test Item Value Reference Range Interpretation Comments A/G Ratio (test code = A/G Ratio) 1.5 0.7-1.6 [id number] 22:20:00 Test Item Value Reference Range Interpretation Comments Basophils # (test code 0.1 See_Comment [Aut omated message] The = Basophils #) system which generated this result tra nsmitted reference range : <=0.2. The reference r tony was not used to int erpret this result as normal/abnormal . [id number] 22:20:00 Test Item Value Reference Range Interpretation Comments Monocytes # (test code 0.9 See_Comment [Aut omated message] The = Monocytes #) system which generated this result tra nsmitted reference range : <=0.8. The reference r tony was not used to int erpret this result as normal/abnormal . [id number] 22:20:00 Test Item Value Reference Range Interpretation Comments Eosinophils # (test code 0.3 See_Comment [A utomated message] The = Eosinophils #) system whic h generated this result tra nsmitted reference range : <=0.5. The reference r tony was not used to int erpret this result as normal/abnormal . [id number] 22:20:00 Test Item Value Reference Range Interpretation Comments Segs-Bands # (test code = Segs-Bands #) 6.5 1.5-8.1 [id number] 22:20:00 Test Item Value Reference Range Interpretation Comments Lymphocytes # (test code = Lymphocytes 3.3 1.0-5.5 #) [id number] 22:20:00 Test Item Value Reference Range Interpretation Comments Basophils (test code = 0.8 See_Comment [Aut omated message] The Basophils) system which ge nerated this result tra nsmitted reference range : <=1.0. The reference r tony was not used to int erpret this result as normal/abnormal . [id number] 22:20:00 Test Item Value Reference Range Interpretation Comments Eosinophils (test code = 2.3 See_Comment [A utomated message] The Eosinophils) system which ge nerated this result tra nsmitted reference range : <=4.0. The reference r tony was not used to int erpret this result as normal/abnormal . [id number] 22:20:00 Test Item Value Reference Range Interpretation Comments Lymphocytes (test code = Lymphocytes) 29.9 20.0-40.0 [id number] 22:20:00 Test Item Value Reference Range Interpretation Comments Monocytes (test code = Monocytes) 7.9 2.0-12.0 [facility][id number] 22:20:00 Test Item Value Reference Range Interpretation Comments Segs (test code = Segs) 59.1 45.0-75.0 [id number] 22:20:00 Test Item Value Reference Range Interpretation Comments MPV (test code = MPV) 9.4 7.4-10.4 [id number] 22:20:00 Test Item Value Reference Range Interpretation Comments RDW (test code = RDW) 13.8 11.5-14.5 [id number] 22:20:00 Test Item Value Reference Range Interpretation Comments Platelet (test code = Platelet) 234 133-450 [id number] 22:20:00 Test Item Value Reference Range Interpretation Comments MCHC (test code = MCHC) 34.3 32.0-36.0 [facility][id number] 22:20:00 Test Item Value Reference Range Interpretation Comments MCH (test code = MCH) 32.6 pg 27.0-31.0 [facility]landsZgwdwenLGRXUKGBGO5192-04-12 22:20:00 Test Item Value Reference Range Interpretation Comments Hgb (test code = Hgb) 16.3 14.0-18.0 [id number] 22:20:00 Test Item Value Reference Range Interpretation Comments MCV (test code = MCV) 95.0 80.0-94.0 [id number] 22:20:00 Test Item Value Reference Range Interpretation Comments Hct (test code = Hct) 47.5 42.0-54.0 [id number] 22:20:00 Test Item Value Reference Range Interpretation Comments RBC (test code = RBC) 5.00 4.70-6.10 [id number] 22:20:00 Test Item Value Reference Range Interpretation Comments WBC (test code = WBC) 11.0 3.7-10.4 [facility]
--- NOTE | 2022-11-10 00:27 | ER ---
Nurse's Notes [facility] Name: Chico Leon Age: 32 yrs Sex: Male : 1990 Arrival Date: 11/09/2022 Time: 23:06 Bed IW1 Private MD: Diagnosis: Presentation: 11/09 23:34 Chief complaint: Patient states: right lower ribcage pain of 6 with abrasion,onset pf1 2hours ago. Patient stated injured himself while standing on top of the tire to reach into the bed of truck, slipped and hit ribcage onto a pry bar sticking out of the truck bed. Patient denies any fall. Coronavirus screen: Vaccine status: Patient reports receiving the 2nd dose of the covid vaccine. Client denies travel out of the [place] in the last 14 days. At this time, the client does not indicate any symptoms associated with coronavirus-19. Ebola Screen: Patient negative for fever greater than or equal to 101.5 degrees Fahrenheit, and additional compatible Ebola Virus Disease symptoms. Initial Sepsis Screen: Does the patient meet any 2 criteria? No. Patient's initial sepsis screen is negative. Does the patient have a suspected source of infection? No. Patient's initial sepsis screen is negative. Risk Assessment: Do you want to hurt yourself or someone else? Patient reports no desire to harm self or others. 23:34 Method Of Arrival: Ambulatory pf1 23:41 Acuity: RADHA 3 pf1 Historical: - Allergies: 23:40 Reglan (tardive dyskinesia); pf1 Vital Signs: 23:34 BP 126 / 85; Pulse 70; Resp 18; Temp 97.9; Pulse Ox 100% on R/A; Weight 72.57 kg; pf1 Height 5 ft. 3 in. ; Pain 6/10; 23:34 Body Mass Index 28.34 (72.57 kg, 160.02 cm) pf1 23:34 Pain Scale: Adult pf1 ED Course: 23:09 Patient arrived in ED. es 23:12 Nilson Wu PA is PHCP. cp 23:12 Jacobo Ramos MD is Attending Physician. cp 23:40 Triage completed. pf1 23:48 Radiology exam delayed due to lab results not completed at this time. IV insertion eh4 attempt and/or patient not having appropriate IV at this time. Administered Medications: No medications were administered Outcome: 11/10 00:26 Patient left the ED. cg Signatures: Maranda Wright Corey, PA PA cp Garcia, Cindy, RN RN [facility] Yancy Padilla RN RN pf1 Corrections: (The following items were deleted from the chart) 11/09 23:41 23:34 Acuity: RADHA 4 pf1 pf1
[2022-11-10 00:42] VITALS: BP 126/85; TEMP 97.9; O2SAT 100
--- NOTE | 2022-11-11 00:27 | EDPHYS ---
Physician Documentation [facility] Name: Chico Leon Age: 32 yrs Sex: Male : 1990 Arrival Date: 11/09/2022 Time: 23:06 Bed IW1 Private MD: ED Physician Jacobo Ramos HPI: 11/09 23:40 This 32 yrs old Male presents to ER via Ambulatory with complaints of Fall cp Injury. 23:40 The patient or guardian reports chest pain that is located primarily in the anterior cp chest wall, right. Details of fall: The patient fell from an upright position, while standing. 23:40 Onset: The symptoms/episode began/occurred 2 hour(s) ago. Associated injuries: The cp patient sustained injury to the chest, specifically the right anterior lower chest, abrasion, tenderness. Associated signs and symptoms: Pertinent positives: abdominal pain. Patient reports slip and fall onto metal bar at home 2 hours ago. Historical: - Allergies: 23:40 Reglan (tardive dyskinesia); pf1 ROS: 23:45 Constitutional: Negative for body aches, chills, fever, poor PO intake. cp 23:45 Eyes: Negative for injury, pain, redness, and discharge. cp 23:45 ENT: Negative for drainage from ear(s), ear pain, sore throat, difficulty swallowing, difficulty handling secretions. 23:45 Neck: Negative for pain with movement, pain at rest, stiffness. 23:45 Cardiovascular: Positive for chest pain. 23:45 Respiratory: Negative for cough, shortness of breath, wheezing. 23:45 Abdomen/GI: Positive for abdominal pain, Negative for vomiting, diarrhea, constipation. 23:45 Back: Negative for pain at rest, pain with movement. 23:45 Neuro: Negative for altered mental status, dizziness, headache, loss of consciousness, syncope, weakness. 23:45 All other systems are negative. Exam: 23:50 Constitutional: The patient appears in no acute distress, alert, awake, cp non-diaphoretic, non-toxic, well developed, well nourished, in obvious pain, uncomfortable. 23:50 Head/Face: Normocephalic, atraumatic. cp 23:50 Eyes: Periorbital structures: appear normal, Conjunctiva: normal, no exudate, no injection, Sclera: no appreciated abnormality, Lids and lashes: appear normal, bilaterally. 23:50 ENT: External ear(s): are unremarkable, Nose: is normal, Mouth: Lips: moist, Oral mucosa: pink and intact, moist, Posterior pharynx: is normal, airway is patent, no erythema, no exudate. 23:50 Neck: ROM/movement: is normal, is supple, without pain, no range of motions limitations. 23:50 Chest/axilla: Inspection: abrasion, that is moderate, of the right diaphragm Palpation: tenderness, that is moderate, of the right diaphragm. 23:50 Cardiovascular: Rate: normal, Rhythm: regular, Edema: is not appreciated, JVD: is not appreciated. 23:50 Respiratory: the patient does not display signs of respiratory distress, Respirations: normal, no use of accessory muscles, no retractions, labored breathing, is not present, Breath sounds: are clear throughout, no decreased breath sounds, no stridor, no wheezing. 23:50 Abdomen/GI: Inspection: abdomen appears normal, Bowel sounds: active, all quadrants, Palpation: soft, in all quadrants, moderate abdominal tenderness, in the right upper quadrant, rebound tenderness, is not appreciated, voluntary guarding, is elicited in the right upper quadrant. 23:50 Back: pain, is absent, ROM is normal. 23:50 Neuro: Orientation: to person, place \T\ time. Mentation: is normal, Motor: moves all fours, strength is normal, Sensation: is normal. Vital Signs: 23:34 BP 126 / 85; Pulse 70; Resp 18; Temp 97.9; Pulse Ox 100% on R/A; Weight 72.57 kg; pf1 Height 5 ft. 3 in. ; Pain 6/10; 23:34 Body Mass Index 28.34 (72.57 kg, 160.02 cm) pf1 23:34 Pain Scale: Adult pf1 MDM: 23:42 Patient medically screened. cp 23:45 Differential diagnosis: chest wall pain, pneumonia, pneumothorax, rib fracture, cp intraabdominal injury. 11/10 00:00 Data reviewed: vital signs, nurses notes. cp 11/09 23:34 Order name: Labs collected and sent cp Administered Medications: No medications were administered Disposition Summary: 11/10/22 00:26 Eloped Disposition: post triage evaluation and consult cg Reason: other cg Signatures: Dispatcher [employer] Nilson Naqvi PA PA cp Garcia, Cindy, RN RN cg Yancy Padilla RN RN pf1
== END 2022-11-10 00:26 | disposition left against medical advice (07) ==
LOC: ER 23:06
DX: R07.89 Other chest pain (principal); R10.9 Unspecified abdominal pain; Z88.8 Allergy status to other drugs, medicaments and biological substances
CPT/HCPCS: 99281

== ENCOUNTER 2023-02-13 03:54 | Emergency (ER) | payer SELFPAY ==
--- OUTSIDE RECORDS SUMMARY | 2023-02-13 04:20 | XMS REPORT | Continuity of Care Document ---
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 6-19 (Same as: l 00:31: BD Roann 00 Posiflush) Ondansetron No Notes: Suleman lida 6-19 (Same as: l 00:31: Zofran) Joon 00 MEDICATION WASTE Product Size: 4 mg Product Wasted: 0 mg Morphine No Notes: Memoria 6-19 (Same l 00:31: as:MORPhin Roann 00 e Sulfate) Sodium 2017-0 No 1,000 mL, Memori a Chloride 6-19 2,000 l 0.154 00:31: ml/hr, Roann MEQ/ML 00 Infuse Injectable Over: 30 Solution minutes, Route: IV, 1,000, Drug form: INJ, ONCE, Priority: STAT, Dosing Weight 65 kg, Start date: 11/18/16 19:31:00 CDT, Duration: 1 doses or times, Stop date: 11/18/16 19:31:00 CDT Saline No Notes: Memoria Flush 0.9% 6-19 (Same as: l 00:31: BD Roann 00 Posiflush) Ondansetron No Notes: Suleman lida 6-19 (Same as: l 00:31: Zofran) Joon 00 MEDICATION WASTE Product Size: 4 mg Product Wasted: 0 mg Morphine No Notes: Memoria 6-19 (Same l 00:31: as:MORPhin Joon 00 e Sulfate) Sodium 2017-0 No 1,000 mL, Memori a Chloride 6-19 2,000 l 0.154 00:31: ml/hr, Roann MEQ/ML 00 Infuse Injectable Over: 30 Solution minutes, Route: IV, 1,000, Drug form: INJ, ONCE, Priority: STAT, Dosing Weight 65 kg, Start date: 11/18/16 19:31:00 CDT, Duration: 1 doses or times, Stop date: 11/18/16 19:31:00 CDT Saline No Notes: Memoria Flush 0.9% 6-19 (Same as: l 00:31: BD Roann 00 Posiflush) Ondansetron No Notes: Suleman lida 6-19 (Same as: l 00:31: Zofran) Roann 00 MEDICATION WASTE Product Size: 4 mg Product Wasted: 0 mg Morphine No Notes: Memoria 6-19 (Same l 00:31: as:MORPhin Joon 00 e Sulfate) Sodium 2017 No 1,000 mL, Memori a Chloride 6-19 2,000 l 0.154 00:31: ml/hr, Roann MEQ/ML 00 Infuse Injectable Over: 30 Solution [...] 00:31: as:MORPhin Joon 00 e Sulfate) Sodium 2017 No 1,000 [...] 11-19 (Same as: l 00:31: BD Joon Posiflush) Ondansetron No Notes: Suleman lida - (Same as: l 00:31: Zofran) Roann 00 MEDICATION WASTE Product Size: 4 mg [...] 19:31:00 CDT Ondansetron No Notes: Suleman lida 6-19 (Same as: l 00:31: Zofran) Joon 00 MEDICATION WASTE Product Size: 4 mg Product Wasted: 0 mg Morphine No Notes: Memoria 6-19 (Same l 00:31: as:MORPhin Roann 00 e Sulfate) Sodium No 1,000 mL, Memori a Chloride 6-19 2,000 l 0.154 00:31: ml/hr, Roann MEQ/ML 00 Infuse Injectable Over: 30 Solution minutes, Route: IV, 1,000, Drug form: INJ, ONCE, Priority: STAT, Dosing Weight 65 kg, Start date: 11/18/16 19:31:00 CDT, Duration: 1 doses or times, Stop date: 11/18/16 19:31:00 CDT Saline 2016- No Notes: Memoria Flush 0.9% 11-19 (Same as: l 00:31: BD Joon 00 Posiflush) Escitalopra 2021- Take 1 Jay sey m Oxalate 09-19 tablet Seybold 10 MG oral 00:00: 00:00 daily x 1 Tab 00 :00 week then 2 tablets daily Zolpidem 2021- No [id number] 10mg QD Take 1 K elsey Tartrate 09-19 tablet by Arian pollock (GAYLE) 10 00:00: 00:00 mouth MG oral Tab 00 :00 nightly as needed for sleep Sertraline 2021- No [id number] 1/2 tab Lakeshia HCl 100 MG 08-28 daily for Sey bold oral Tab 00:00: 00:00 one week 00 :00 then full tab Ativan 0 No 1 mg, Memoria 2-25 Route: l 10:22: IVP, Drug Joon 00 form: INJ, ONCE, Dosing Weight 68.182, kg, Priority: STAT, Start date: 07/28/15 4:22:00, Stop date: 07/28/15 4:22:00 Ativan 2015-0 No 1 mg, Memoria 2-25 Route: l 10:22: IVP, Drug Roann 00 form: INJ, ONCE, Dosing Weight 68.182, kg, Priority: STAT, Start date: 07/28/15 4:22:00, Stop date: 07/28/15 4:22:00 Ativan 2015-0 No 1 mg, Memoria 2-25 Route: l 10:22: IVP, Drug Roann 00 form: INJ, ONCE, Dosing Weight 68.182, kg, Priority: STAT, Start date: 07/28/15 4:22:00, Stop date: 07/28/15 4:22:00 Ativan 2015-0 No 1 mg, Memoria 2-25 Route: l 10:22: IVP, Drug Joon 00 form: INJ, ONCE, Dosing Weight 68.182, kg, Priority: STAT, Start date: 07/28/15 4:22:00, Stop date: 07/28/15 4:22:00 Ativan 2016-0 No 1 mg, Memoria 2-25 Route: l 10:22: IVP, Drug Roann 00 form: INJ, ONCE, Dosing Weight 68.182, kg, Priority: STAT, Start date: 07/28/15 4:22:00, Stop date: 07/28/15 4:22:00 Ativan 2016-0 No 1 mg, Memoria 2-25 Route: l 10:22: IVP, Drug Roann 00 form: INJ, ONCE, Dosing Weight 68.182, kg, Priority: STAT, Start date: 07/28/15 4:22:00, Stop date: 07/28/15 4:22:00 Saline 2016-0 No Notes: Memoria Flush 0.9% 2-25 Same as: l 10:19: BD Roann 00 Posiflush Sterile Sodium 2016-0 No 1,000 mL, Memori a Chloride 2-25 1,000 l 0.154 10:19: ml/hr, Joon MEQ/ML 00 Infuse Injectable Over: 1 Solution hr, Route: IV, ONCE, Priority: STAT, Dosing Weight 68.182 kg, Start date: 07/28/15 4:19:00, Duration: 1 doses or times, Stop date: 07/28/15 4:19:00 Saline 2016-0 No Notes: Memoria Flush 0.9% 2-25 Same as: l 10:19: BD Roann 00 Posiflush Sterile Sodium 2016-0 No 1,000 mL, Memori a Chloride 2-25 1,000 l 0.154 10:19: ml/hr, Roann MEQ/ML 00 Infuse Injectable Over: 1 Solution hr, Route: IV, ONCE, Priority: STAT, Dosing Weight 68.182 kg, Start date: 07/28/15 4:19:00, Duration: 1 doses or times, Stop date: 07/28/15 4:19:00 Saline 2016-0 No Notes: Memoria Flush 0.9% 2-25 Same as: l 10:19: BD Roann 00 Posiflush Sterile Sodium 2016-0 No 1,000 [...] Memoria 2-25 Route: l 10:18: IVP, Drug Roann 00 form: INJ, ONCE, Dosing Weight 68.182, [...] 07/28/15 4:18:00, Stop date: 07/28/15 4:18:00 Acetaminoph 2015-0 Yes 1,000 mg = Memoria en 500 MG 1-06 2 tab, PO, l Oral Tablet 09:06: Q4H, PRN Leif ornelas [Tylenol] 00 Fever, X 10 day, # 24 tab, 0 Refill(s) Acetaminoph Yes 1,000 mg = Memoria en 500 MG 1-06 2 tab, PO, l Oral Tablet 09:06: Q4H, PRN He rmann [Tylenol] 00 Fever, X 10 day, # 24 tab, 0 Refill(s) Acetaminoph Yes 1,000 mg = Memoria en 500 MG 1-06 2 tab, PO, l Oral Tablet 09:06: [...] day, # 10 tab, 0 Refill(s) Ciprofloxac 0 Yes 500 mg = 1 Memoria in [...] day, # 10 tab, 0 Refill(s) Ciprofloxac 0 Yes 500 mg = 1 Memoria in 500 MG -06 tab, PO, l Oral Tablet 09:05: Q12H, X 3 H ermann [Cipro] 00 day, # 6 tab, 0 Refill(s) Ondansetron 0 Yes 4 mg = 1 Me moria 4 MG -06 tab, PO, l Disintegrat 09:05: BID, PRN He rmann ing Tablet 00 Nausea and [Zofran] Vomiting, Dissolve tab under tongue, X 5 day, # 10 tab, 0 Refill(s) Ciprofloxac 0 Yes 500 mg = 1 Memoria in 500 MG 1-06 tab, PO, l Oral Tablet 09:05: Q12H, X 3 H ermann [Cipro] 00 day, # 6 tab, 0 Refill(s) Ondansetron 0 Yes 4 mg = 1 Me moria 4 MG 1-06 tab, PO, l Disintegrat 09:05: BID, PRN He rmann ing Tablet 00 Nausea and [Zofran] Vomiting, Dissolve tab under tongue, X 5 day, # 10 tab, 0 Refill(s) Ciprofloxac 2016-0 Yes 500 mg = 1 Memoria in 500 MG 06 tab, PO, l Oral Tablet 09:05: Q12H, X 3 H ermann [Cipro] 00 day, # 6 tab, 0 Refill(s) Tylenol No Notes: Max Suleman lida 1-06 acetaminop l 05:56: hen 4000 Roann 00 mg/day (4 gm/day). (Same as: Tylenol Extra Strength) Tylenol No Notes: Max Suleman lida 1-06 acetaminop l 05:56: hen 4000 Roann 00 mg/day (4 gm/day). (Same as: Tylenol [...] lida 1-06 acetaminop l 05:56: hen 4000 Roann 00 mg/day (4 gm/day). (Same as: Tylenol Extra Strength) Sodium No 1,000 mL, Memori a Chloride 06-08 1000 l 0.154 05:19: ml/hr, Roann MEQ/ML 00 Infuse Injectable Over: 1 Solution hr, Route: IV, 1,000, Drug form: INJ, ONCE, Priority: STAT, Dosing Weight 75.455 kg, Start date: 06/07/15 23:19:00, Duration: 1 doses or times, Stop date: 06/07/15 23:19:00 Saline No Notes: Memoria Flush 0.9% 06-08 (Same as: l 05:19: BD Roann 00 Posiflush) Morphine No Notes: Memoria 06-08 (Same l 05:19: as:MORPhin Roann 00 e Sulfate) Ondansetron No Notes: Suleman lida -06 (Same as: l 05:19: Zofran) Joon 00 MEDICATION WASTE Product Size: 4 mg Product Wasted: ___ mg Acetaminoph No Notes: Suleman lida en 325 MG / 06-08 (Same as: l Hydrocodone 05:19: Mumford Laureen nn Bitartrate 00 325/5) Do 5 MG Oral not exceed Tablet 4gm/day of acetaminop hen. Sodium No 1,000 mL, Memori a Chloride 1-06 1000 l 0.154 05:19: ml/hr, Roann MEQ/ML 00 Infuse Injectable Over: 1 Solution hr, Route: IV, 1,000, Drug form: INJ, ONCE, Priority: STAT, Dosing Weight 75.455 kg, Start date: 06/07/15 23:19:00, Duration: 1 doses or times, Stop date: 06/07/15 23:19:00 Saline No Notes: Memoria Flush 0.9% 06-08 (Same as: l 05:19: BD Joon 00 Posiflush) Morphine No Notes: Memoria -06 (Same l 05:19: as:MORPhin Roann 00 e Sulfate) Ondansetron No Notes: Suleman lida -06 (Same as: l 05:19: Zofran) Joon 00 MEDICATION WASTE Product Size: 4 mg Product Wasted: ___ mg Acetaminoph No Notes: Suleman lida en 325 MG / 06-08 (Same as: l Hydrocodone 05:19: Mumford Laureen nn Bitartrate 00 325/5) Do 5 [...] 23:19:00 Saline No Notes: Memoria Flush 0.9% 1-06 (Same as: l 05:19: BD Joon 00 Posiflush) Morphine No Notes: Memoria 1- (Same l 05:19: as:MORPhin Joon 00 e Sulfate) Ondansetron No Notes: Suleman lida -06 (Same as: l 05:19: Zofran) Joon 00 MEDICATION WASTE Product Size: 4 mg Product Wasted: ___ mg Acetaminoph No Notes: Suleman lida en 325 MG / 06-08 (Same as: l Hydrocodone 05:19: Mumford Laureen nn Bitartrate 00 325/5) Do 5 [...] 23:19:00 Saline No Notes: Memoria Flush 0.9% -06 (Same as: l 05:19: BD Joon 00 Posiflush) Morphine No Notes: Memoria - (Same l 05:19: as:MORPhin Joon 00 e Sulfate) Ondansetron No Notes: Suleman lida -06 (Same as: l 05:19: Zofran) Joon 00 MEDICATION WASTE Product Size: 4 mg Product Wasted: ___ mg Acetaminoph No Notes: Suleman lida en 325 MG / 06 (Same as: l Hydrocodone 05:19: Mumford Laureen nn Bitartrate 00 325/5) Do 5 MG Oral not exceed Tablet 4gm/day of acetaminop hen. Sodium No 1,000 mL, Memori a Chloride 1-06 1000 l 0.154 05:19: ml/hr, Roann MEQ/ML 00 Infuse Injectable Over: 1 Solution hr, Route: IV, 1,000, Drug form: INJ, ONCE, Priority: STAT, Dosing Weight 75.455 kg, Start date: 06/07/15 23:19:00, Duration: 1 doses or times, Stop date: 06/07/15 23:19:00 Saline No Notes: Memoria Flush 0.9% -06 (Same as: l 05:19: BD Joon 00 Posiflush) Morphine No Notes: Memoria 1- (Same l 05:19: as:MORPhin Joon 00 e Sulfate) Ondansetron No Notes: Suleman lida - (Same as: l 05:19: Zofran) Roann 00 MEDICATION WASTE Product Size: 4 mg Product Wasted: ___ mg Acetaminoph No Notes: Suleman lida en 325 MG / 06-08 (Same as: l Hydrocodone 05:19: Mumford Laureen nn Bitartrate 00 325/5) Do 5 MG Oral not exceed Tablet 4gm/day of acetaminop hen. Sodium No 1,000 mL, Memori a Chloride 06 1000 l 0.154 05:19: ml/hr, Roann MEQ/ML 00 Infuse Injectable Over: 1 Solution hr, Route: IV, 1,000, Drug form: INJ, ONCE, Priority: STAT, Dosing Weight 75.455 kg, Start date: 06/07/15 23:19:00, Duration: 1 doses or times, Stop date: 06/07/15 23:19:00 Saline No Notes: Memoria Flush 0.9% -06 (Same as: l 05:19: BD Roann 00 Posiflush) Morphine No Notes: Memoria -06 (Same l 05:19: as:MORPhin Roann 00 e Sulfate) Ondansetron No Notes: Suleman lida -06 (Same as: l 05:19: Zofran) Joon 00 MEDICATION WASTE Product Size: 4 mg Product Wasted: ___ mg Acetaminoph No Notes: Suleman lida en 325 MG / 06-08 (Same as: l Hydrocodone 05:19: Mumford Laureen nn Bitartrate 00 325/5) Do 5 MG Oral not exceed Tablet 4gm/day of acetaminop hen. Naproxen 2014-06 Yes 500 mg = 1 Mem oria 500 MG Oral 1-19 tab, PO, l Tablet 07:40: BID, PRN Roann [Naprosyn] 00 Pain, # 20 tab, 0 Refill(s) tramadol 2014-06 Yes 50 mg = 1 Suleman lida hydrochlori 1-19 tab, PO, l de 50 MG 07:40: BID, X 15 Herm teresa Oral Tablet 00 day, # 30 tab, 0 Refill(s) Naproxen 2014-06 Yes 500 mg = 1 Mem oria 500 MG Oral 1-19 tab, PO, l Tablet 07:40: BID, PRN Roann [Naprosyn] 00 Pain, # 20 tab, 0 [...] tab, PO, l Tablet 07:40: BID, PRN Roann [Naprosyn] 00 Pain, # 20 tab, 0 Refill(s) tramadol 2014-06 Yes 50 mg = 1 Suleman lida hydrochlori 1-19 tab, PO, l de 50 MG 07:40: BID, X 15 Herm teresa Oral Tablet 00 day, # 30 tab, 0 Refill(s) Naproxen 2014-06 Yes 500 mg = 1 Mem oria 500 MG Oral 1-19 tab, PO, l Tablet 07:40: BID, PRN Roann [Naprosyn] 00 Pain, # 20 tab, 0 [...] 0.9% 1-19 (Same as: l 05:44: BD Joon 00 Posiflush) Saline 2014-06 No Notes: Memoria Flush 0.9% 1-19 (Same as: l 05:44: BD Roann 00 Posiflush) Saline 2014-06 No Notes: Memoria Flush 0.9% 1-19 (Same as: l 05:44: BD Joon 00 Posiflush) Saline 2014-06 No Notes: Memoria Flush 0.9% 1-19 (Same as: l 05:44: BD Joon 00 Posiflush) Saline 2014-06 No Notes: Memoria Flush 0.9% 1-19 (Same as: l 05:44: BD Joon 00 Posiflush) Saline 2014-06 No Notes: Memoria Flush 0.9% 1-19 (Same as: l 05:44: BD Roann 00 Posiflush) Magic Mouth Yes 5 ml, Memor ia Wash 07 S&SPIT, l (Maalox/Car 16:35: QID, sore H ermann afate/Bendr 00 throat, # yl)1:1:1 180 ml, 0 Refill(s) Magic Mouth Yes 5 ml, Memor ia Wash 1-07 S&SPIT, l (Maalox/Car 16:35: QID, sore H ermann afate/Bendr 00 throat, # yl)1:1:1 180 ml, 0 Refill(s) Magic Mouth 2015-0 Yes 5 ml, Memor ia Wash 1-07 S&SPIT, l (Maalox/Car 16:35: QID, sore H ermann afate/Bendr 00 throat, # yl)1:1:1 180 ml, 0 Refill(s) Magic Mouth 2015-0 Yes 5 ml, Memor ia Wash 1-07 S&SPIT, l (Maalox/Car 16:35: QID, sore H ermann afate/Bendr 00 throat, # yl)1:1:1 180 ml, 0 Refill(s) Magic Mouth 2015-0 Yes 5 ml, Memor ia Wash 1-07 S&SPIT, l (Maalox/Car 16:35: QID, sore H ermann afate/Bendr 00 throat, # yl)1:1:1 180 ml, 0 Refill(s) Magic Mouth 2015-0 Yes 5 ml, Memor ia Wash 1-07 S&SPIT, l (Maalox/Car 16:35: QID, sore H ermann afate/Bendr 00 throat, # yl)1:1:1 180 ml, 0 Refill(s) Acetaminoph No Notes: Max Memoria en 1-07 acetaminop l 15:49: hen 4000 Jono 00 mg/day (4 gm/day). (Same as: Tylenol Extra Strength) Ibuprofen No Notes: Memori a 06-09 (Same as: l 15:49: Motrin) Roann 00 "Do Not Crush" Take with food. Acetaminoph No Notes: Max Memoria en 1-07 acetaminop l 15:49: hen 4000 Joon 00 mg/day (4 gm/day). (Same as: Tylenol Extra Strength) Ibuprofen No Notes: Memori a 1-07 (Same as: l 15:49: Motrin) Joon 00 "Do Not Crush" Take with food. Acetaminoph No Notes: Max Memoria en 1-07 acetaminop l 15:49: hen 4000 Roann 00 mg/day (4 gm/day). (Same as: Tylenol Extra Strength) Ibuprofen No Notes: Memori a 1-07 (Same as: l 15:49: Motrin) Joon 00 "Do Not Crush" Take with food. Acetaminoph No Notes: Max Memoria en 1-07 acetaminop l 15:49: hen 4000 Roann 00 mg/day (4 gm/day). (Same as: Tylenol Extra Strength) Ibuprofen No Notes: Memori a 1-07 (Same as: l 15:49: Motrin) Joon 00 "Do Not Crush" Take with food. Acetaminoph No Notes: Max Memoria en 1- acetaminop l 15:49: hen 4000 Roann 00 mg/day (4 gm/day). (Same as: Tylenol Extra Strength) Ibuprofen No Notes: Memori a 1-07 (Same as: l 15:49: Motrin) Roann 00 "Do Not Crush" Take with food. Acetaminoph No Notes: Max Memoria en 1- acetaminop l 15:49: hen 4000 Roann 00 mg/day (4 gm/day). (Same as: Tylenol Extra Strength) Ibuprofen No Notes: Memori a 1-07 (Same as: l 15:49: Motrin) Joon 00 "Do Not Crush" Take with food. Dexamethaso No Notes: Suleman lida ne 06-09 Give with l 15:48: food. Roann 00 (Same As: Decadron) Bicillin No Notes: Memoria L-A -07 (penicilli l 15:48: n G Roann 00 benzathine 1.2 MilUnit/2 ml INJ) (Same as: Bicillin L-A, Permapen) NOT For Daily Use Dexamethaso No Notes: Suleman lida ne 06-09 Give with l 15:48: food. Roann 00 (Same As: Decadron) Bicillin No Notes: Memoria L-A -07 (penicilli l 15:48: n G Joon 00 benzathine 1.2 MilUnit/2 ml INJ) (Same as: Bicillin L-A, Permapen) NOT For Daily Use Dexamethaso No Notes: Suleman lida ne 06-09 Give with l 15:48: food. Joon 00 (Same As: Decadron) Bicillin No Notes: Memoria L-A - (penicilli l 15:48: n G Joon 00 benzathine 1.2 MilUnit/2 ml INJ) (Same as: Bicillin L-A, Permapen) NOT For Daily Use Dexamethaso No Notes: Suleman lida ne 06-09 Give with l 15:48: food. Joon 00 (Same As: Decadron) Bicillin No Notes: Memoria L-A - (penicilli l 15:48: n G Joon 00 benzathine 1.2 MilUnit/2 ml INJ) (Same as: Bicillin L-A, Permapen) NOT For Daily Use Dexamethaso No Notes: Suleman lida ne 06-09 Give with l 15:48: food. (Same As: Decadron) Bicillin No Notes: Memoria L-A - (penicilli l 15:48: n G Joon 00 benzathine 1.2 MilUnit/2 ml INJ) (Same as: Bicillin L-A, Permapen) NOT For Daily Use Dexamethaso No Notes: Suleman lida ne 06-09 Give with l 15:48: food. (Same As: Mayadron) Bicillin No Notes: Memoria L-A - (penicilli l 15:48: n G Roann 00 benzathine 1.2 MilUnit/2 ml INJ) (Same [...] PO, l de 10 MG 04:48: QID, Roann Oral 00 abdominal Capsule cramping, [Bentyl] # 12 cap, 0 Refill(s) Dicyclomine 2013-0 Yes 10 mg = 1 M emoria Hydrochlori 8-21 cap, PO, l de 10 MG 04:48: QID, Joon Oral 00 abdominal Capsule cramping, [Bentyl] # 12 cap, 0 Refill(s) Dicyclomine Yes 10 mg = 1 M emoria Hydrochlori 8-21 cap, PO, l de 10 MG 04:48: QID, Roann Oral 00 abdominal Capsule cramping, [Bentyl] # 12 cap, 0 Refill(s) Dicyclomine Yes 10 mg = 1 M emoria Hydrochlori 8-21 cap, PO, l de 10 MG 04:48: QID, Joon Oral 00 abdominal Capsule cramping, [Bentyl] # 12 cap, 0 Refill(s) Dicyclomine Yes 10 mg = 1 M emoria Hydrochlori 8-21 cap, PO, l de 10 MG 04:48: QID, Roann Oral 00 abdominal Capsule cramping, [Bentyl] # 12 cap, 0 Refill(s) Morphine No Notes: Memoria - (Same l 02:32: as:MORPhin Roann 00 e Sulfate) Morphine No Notes: Memoria 01-21 (Same l 02:32: as:MORPhin Joon 00 e Sulfate) Morphine No Notes: Memoria - (Same l 02:32: as:MORPhin Roann 00 e Sulfate) Morphine No Notes: Memoria 01-21 (Same l 02:32: as:MORPhin Joon 00 e Sulfate) Morphine No Notes: Memoria - (Same l 02:32: as:MORPhin Joon 00 e Sulfate) Morphine No Notes: Memoria 8- (Same l 02:32: as:MORPhin Joon 00 e Sulfate) Omnipaque No Notes: Memori a 240 01-21 (Same l 02:01: as:Omnipaq Roann 00 ue 240) 12,000mg/5 0ml Ondansetron No Notes: Suleman lida 01-21 (Same as: l 02:01: Zofran) Roann 00 Dilaudid No Notes: Memoria 01-21 Same as: l 02:01: Dilaudid Omnipaque 2013-0 No Notes: Memori a 240 8-21 (Same l 02:01: as:Omnipaq Joon 00 ue 240) 12,000mg/5 0ml Ondansetron 2014-0 No Notes: Suleman lida 8-21 (Same as: l 02:01: Zofran) Roann Dilaudid 2013-0 No Notes: Memoria 8-21 Same as: l 02:01: Dilaudid Joon Omnipaque 2013-0 No Notes: Memori a 240 8-21 (Same l 02:01: as:Omnipaq Joon 00 ue 240) 12,000mg/5 0ml Ondansetron 2014-0 No Notes: Suleman lida 8-21 (Same as: l 02:01: Zofran) Joon Dilaudid 2013-0 No Notes: Memoria 8-21 Same as: l 02:01: Dilaudid Roann Omnipaque 2013-0 No Notes: Memori a 240 8-21 (Same l 02:01: as:Omnipaq Roann 00 ue 240) 12,000mg/5 0ml Ondansetron 2014-0 No Notes: Suleman lida 8-21 (Same as: l 02:01: Zofran) Joon Dilaudid 2013-0 No Notes: Memoria 8-21 Same as: l 02:01: Dilaudid Roann Omnipaque 2013-0 No Notes: Memori a 240 8-21 (Same l 02:01: as:Omnipaq Roann 00 ue 240) 12,000mg/5 0ml Ondansetron 2014-0 No Notes: Suleman lida 8-21 (Same as: l 02:01: Zofran) Roann Dilaudid 2013-0 No Notes: Memoria 8-21 Same as: l 02:01: Dilaudid Roann Omnipaque 2013-0 No Notes: Memori a 240 8-21 (Same l 02:01: as:Omnipaq Joon 00 ue 240) 12,000mg/5 0ml Ondansetron 2014-0 No Notes: Suleman lida 8-21 (Same as: l 02:01: Zofran) Joon Dilaudid 2013-0 No Notes: Memoria 8-21 Same as: l 02:01: Dilaudid Roann 00 Saline No Notes: Memoria Flush 0.9% 8-21 (Same as: l 01:57: BD Joon 00 Posiflush) Saline No Notes: Memoria Flush 0.9% 8-21 (Same as: l 01:57: BD Joon 00 Posiflush) Saline No Notes: Memoria Flush 0.9% 8-21 (Same as: l 01:57: BD Joon 00 Posiflush) Saline No Notes: Memoria Flush 0.9% 8-21 (Same as: l 01:57: BD Roann 00 Posiflush) Saline No Notes: Memoria Flush 0.9% 8-21 (Same as: l 01:57: BD Roann 00 Posiflush) Saline No Notes: Memoria Flush 0.9% 8-21 (Same as: l 01:57: BD Roann 00 Posiflush) Famotidine Yes 20 mg = [...] PO, l de 20 MG 00:55: QID, Roann Oral Tablet 00 abdominal [Bentyl] pain, # 28 tab, 0 Refill(s) Famotidine 0 Yes 20 mg = 1 Me moria [...] PO, l de 20 MG 00:55: QID, Roann Oral Tablet 00 abdominal [Bentyl] pain, # [...] PO, l de 20 MG 00:55: QID, Roann Oral Tablet 00 abdominal [Bentyl] pain, # [...] PO, l de 20 MG 00:55: QID, Roann Oral Tablet 00 abdominal [Bentyl] pain, # [...] PO, l de 20 MG 00:55: QID, Roann Oral Tablet 00 abdominal [Bentyl] pain, # 28 tab, 0 Refill(s) Morphine 2014-0 No 4 mg, Memoria 7-16 Route: l 23:47: IVP, Drug Joon 00 form: INJ, ONCE, Dosing Weight 73.182, kg, Priority: STAT, Start date: 12/16/13 18:47:00, Stop date: 12/16/13 18:47:00 Morphine 2014-0 No 4 mg, Memoria 7-16 Route: l 23:47: IVP, Drug Roann 00 form: INJ, ONCE, Dosing Weight 73.182, kg, Priority: STAT, Start date: 12/16/13 18:47:00, Stop date: 12/16/13 18:47:00 Morphine 2014-0 No 4 mg, Memoria 7-16 Route: l 23:47: IVP, Drug Joon 00 form: INJ, ONCE, Dosing Weight 73.182, kg, Priority: STAT, Start date: 12/16/13 18:47:00, Stop date: 12/16/13 18:47:00 Morphine 2014-0 No 4 mg, Memoria 7-16 Route: l 23:47: IVP, Drug Roann 00 form: INJ, ONCE, Dosing Weight 73.182, kg, Priority: STAT, Start date: 12/16/13 18:47:00, Stop date: 12/16/13 18:47:00 Morphine 2014-0 No 4 mg, Memoria 7-16 Route: l 23:47: IVP, Drug Joon 00 form: INJ, ONCE, Dosing Weight 73.182, kg, Priority: STAT, Start date: 12/16/13 18:47:00, Stop date: 12/16/13 18:47:00 Morphine No 4 mg, Memoria 7-16 Route: l 23:47: IVP, Drug Roann 00 form: INJ, ONCE, Dosing Weight 73.182, kg, Priority: STAT, Start date: 12/16/13 18:47:00, Stop date: 12/16/13 18:47:00 Morphine No Notes: Memoria 7-16 (Same l 22:18: as:MORPhin Roann 00 e Sulfate) Morphine No Notes: Memoria 7-16 (Same l 22:18: as:MORPhin Joon 00 e Sulfate) Morphine No Notes: Memoria 7-16 (Same l 22:18: as:MORPhin Joon 00 e Sulfate) Morphine No Notes: Memoria 7-16 (Same l 22:18: as:MORPhin Roann 00 e Sulfate) Morphine No Notes: Memoria 7-16 (Same l 22:18: as:MORPhin Joon 00 e Sulfate) Morphine No Notes: Memoria 7-16 (Same l 22:18: as:MORPhin Joon 00 e Sulfate) Ondansetron No Notes: Suleman lida 7-16 (Same as: l 22:01: Zofran) Joon 00 Sodium No 1,000 mL, Memori a Chloride 7-16 1000 l 0.154 22:01: ml/hr, Roann MEQ/ML 00 Infuse Injectable Over: 1 Solution [...] Chloride 7-16 1000 l 0.154 22:01: ml/hr, Roann MEQ/ML 00 Infuse Injectable Over: 1 Solution [...] 0.9% 7-16 (Same as: l 22:01: BD Roann 00 Posiflush) Ondansetron No Notes: Suleman lida [...] lida 7-16 (Same as: l 22:01: Zofran) Roann 00 Sodium No 1,000 mL, Memori a Chloride 7-16 1000 l 0.154 22:01: ml/hr, Roann MEQ/ML 00 Infuse Injectable Over: 1 Solution hr, Route: IV, 1,000, Drug form: INJ, ONCE, Priority: STAT, Dosing Weight 73.182 kg, Start date: 12/16/13 17:01:00, Duration: 1 doses or times, Stop date: 12/16/13 17:01:00 Saline No Notes: Memoria Flush 0.9% 7-16 (Same as: l 22:01: BD Jono 00 Posiflush) Ondansetron No Notes: Suleman lida 7-16 (Same as: l 22:01: Zofran) Roann 00 Sodium No 1,000 mL, Memori a Chloride 7-16 1000 l 0.154 22:01: ml/hr, Roann MEQ/ML 00 Infuse Injectable Over: 1 Solution hr, Route: IV, 1,000, Drug form: INJ, ONCE, Priority: STAT, Dosing Weight 73.182 kg, Start date: 12/16/13 17:01:00, Duration: 1 doses or times, Stop date: 12/16/13 17:01:00 Saline No Notes: Memoria Flush 0.9% 7-16 (Same as: l 22:01: BD Roann 00 Posiflush) Immunizations Ordered Immunization Filled Immunization Date Status Commen ts Source Name Name PFIZER COVID-19 MRNA 2021-02-02 Completed Meth odist VACCINATION 00:00:00 [facility] PFIZER COVID-19 MRNA 2021-02-02 Completed Meth odist VACCINATION 00:00:00 [facility] PFIZER COVID-19 MRNA 2021-01-12 Completed Meth odist VACCINATION 00:00:00 [facility] PFIZER COVID-19 MRNA 2021-01-12 Completed Meth odist VACCINATION 00:00:00 [facility] diphtheria/pertussis 2018-02-26 Completed Suleman rial Roann , acel/tetanus adult 20:01:00 diphtheria/pertussis 2018-02-26 Completed Suleman rial Joon , acel/tetanus adult 20:01:00 diphtheria/pertussis 2018-02-26 Completed Suleman rial Roann , acel/tetanus adult 20:01:00 diphtheria/pertussis 2018-02-26 Completed Suleman rial Roann , acel/tetanus adult 20:01:00 diphtheria/pertussis 2018-02-26 Completed Suleman rial Roann , acel/tetanus adult 20:01:00 diphtheria/pertussis 2018-02-26 Completed Suleman rial Joon , acel/tetanus adult 20:01:00 tetanus-diphtheria 2011-05-07 Completed [facility] toxoids 22:25:00 tetanus-diphtheria 2011-05-07 Completed [facility] toxoids 22:25:00 tetanus-diphtheria 2011-05-07 Completed [facility] toxoids 22:25:00 tetanus-diphtheria 2011-05-07 Completed [facility] toxoids 22:25:00 tetanus-diphtheria 2011-05-07 Completed [facility] toxoids 22:25:00 tetanus-diphtheria 2011-05-07 Completed [facility] toxoids 22:25:00 tetanus-diphtheria 2011-05-07 Completed [facility] toxoids 22:25:00 tetanus-diphtheria 2011-05-07 Completed [facility] toxoids 22:25:00 tetanus-diphtheria 2011-05-07 Completed [facility] toxoids 22:25:00 tetanus-diphtheria 2011-05-07 Completed [facility] toxoids 22:25:00 tetanus-diphtheria 2011-05-07 Completed [facility] toxoids 22:25:00 tetanus-diphtheria 2011-05-07 Completed [facility] toxoids 22:25:00 Vital Signs Vital Name Observation Time Observation Value Comments Source Systolic blood 2021-08-21 16:37:00 158 mm[Hg] Lakeshia ybold pressure Diastolic blood 2021-08-21 16:37:00 78 mm[Hg] Rickie y Seybold pressure Heart rate 2021-08-21 16:37:00 80 /min Lakeshia brannon Body temperature 2021-08-21 16:37:00 36.83 Tiffany Valarie ey Seybold Respiratory rate 2021-08-21 16:37:00 16 /min Valarie Torre Body height 2021-08-21 16:37:00 160 cm Lakeshia brannon Body weight 2021-08-21 16:37:00 88.089 kg Lakeshia brannon BMI 2021-08-21 16:37:00 34.40 kg/m2 Lakeshia brannon Height 2020-05-28 05:09:00 157.48 CM Weight 2020-05-28 05:09:00 72.57 KG Temperature Oral (F) 2021-11-16 20:56:00 99 F [facility] Heart Rate 2021-11-16 20:56:00 [facility] Respitory Rate 2021-11-16 20:56:00 [facility] Systolic (mm Hg) 2021-11-16 20:56:00 Suleman rial Roann Diastolic (mm Hg) 2021-11-16 20:56:00 [facility] Height 2021-11-16 17:15:00 160.02 cm [facility] BMI Calculated 2021-11-16 17:15:00 [facility] Weight 2021-11-16 17:15:00 [facility] Systolic (mm Hg) 2021-11-16 17:15:00 Suleman rial Joon Diastolic (mm Hg) 2021-11-16 17:15:00 [facility] Heart Rate 2021-11-16 17:15:00 [facility] Respitory Rate 2021-11-16 17:15:00 [facility] Temperature Oral (F) 2021-11-16 17:15:00 101 F [facility] Systolic (mm Hg) 2021-11-14 20:02:00 Suleman [facility] Joon Diastolic (mm Hg) 2021-11-14 20:02:00 [facility] Heart Rate 2021-11-14 20:02:00 [facility] Respitory Rate 2021-11-14 20:02:00 [facility] Temperature Oral (F) 2021-11-14 20:02:00 98.3 F [facility] Height 2021-11-14 16:59:00 160.02 cm [facility] BMI Calculated 2021-11-14 16:59:00 [facility] Weight 2021-11-14 16:59:00 [facility] Systolic (mm Hg) 2021-11-14 16:59:00 Suleman [facility] Joon Diastolic (mm Hg) 2021-11-14 16:59:00 [facility] Heart Rate 2021-11-14 16:59:00 [facility] Respitory Rate 2021-11-14 16:59:00 [facility] Temperature Oral (F) 2021-11-14 16:59:00 98.9 F [facility] Heart Rate 2021-08-29 00:28:00 [facility] Respitory Rate 2021-08-29 00:28:00 [facility] Systolic (mm Hg) 2021-08-29 00:28:00 Suleman rial Roann Diastolic (mm Hg) 2021-08-29 00:28:00 [facility] Height 2021-08-28 21:23:00 162.56 cm [facility] BMI Calculated 2021-08-28 21:23:00 [facility] Weight 2021-08-28 21:23:00 [facility] Systolic (mm Hg) 2021-08-28 21:23:00 Suleman rial Joon Diastolic (mm Hg) 2021-08-28 21:23:00 [facility] Heart Rate 2021-08-28 21:23:00 [facility] Respitory Rate 2021-08-28 21:23:00 [facility] Temperature Oral (F) 2021-08-28 21:23:00 98.2 F [facility] Temperature Oral (F) 2020-01-25 09:12:00 98.2 F [facility] Systolic (mm Hg) 2020-01-25 09:12:00 Suleman [facility] Joon Diastolic (mm Hg) 2020-01-25 09:12:00 [facility] Respitory Rate 2020-01-25 09:12:00 [facility] Heart Rate 2020-01-25 09:12:00 [facility] Height 2020-01-25 05:25:00 160.02 cm [facility] BMI Calculated 2020-01-25 05:25:00 [facility] Weight 2020-01-25 05:25:00 [facility] Systolic (mm Hg) 2020-01-25 05:25:00 Suleman [facility] Roann Diastolic (mm Hg) 2020-01-25 05:25:00 [facility] Heart Rate 2020-01-25 05:25:00 [facility] Respitory Rate 2020-01-25 05:25:00 [facility] Temperature Oral (F) 2020-01-25 05:25:00 98.2 F [facility] Systolic (mm Hg) 2019-07-18 20:14:00 Suleman [facility] Joon Diastolic (mm Hg) 2019-07-18 20:14:00 [facility] Heart Rate 2019-07-18 20:14:00 [facility] Respitory Rate 2019-07-18 20:14:00 [facility] Temperature Oral (F) 2019-07-18 20:14:00 98.5 F [facility] Height 2019-07-18 20:14:00 160.02 cm [facility] BMI Calculated 2019-07-18 20:14:00 [facility] Weight 2019-07-18 20:14:00 [facility] Systolic (mm Hg) 2019-07-09 00:55:00 Suleman [facility] Joon Diastolic (mm Hg) 2019-07-09 00:55:00 [facility] Respitory Rate 2019-07-09 00:55:00 [facility] Heart Rate 2019-07-09 00:55:00 [facility] Temperature Oral (F) 2019-07-09 00:55:00 99.5 F [facility] Systolic (mm Hg) 2019-07-08 23:31:00 Suleman rial Joon Diastolic (mm Hg) 2019-07-08 23:31:00 [facility] Heart Rate 2019-07-08 23:31:00 [facility] Respitory Rate 2019-07-08 23:31:00 [facility] Temperature Oral (F) 2019-07-08 23:31:00 98.4 F [facility] Height 2019-07-08 23:31:00 160.02 cm [facility] BMI Calculated 2019-07-08 23:31:00 [facility] Weight 2019-07-08 23:31:00 [facility] Temperature Oral (F) 2018-02-26 22:56:00 98.5 F [facility] Systolic (mm Hg) 2018-02-26 22:56:00 Suleman rial Roann Diastolic (mm Hg) 2018-02-26 22:56:00 [facility] Heart Rate 2018-02-26 22:56:00 [facility] Respitory Rate 2018-02-26 22:56:00 [facility] Respitory Rate 2018-02-26 20:36:00 [facility] Temperature Oral (F) 2018-02-26 20:36:00 98.6 F [facility] Systolic (mm Hg) 2018-02-26 20:36:00 Suleman [facility] Joon Diastolic (mm Hg) 2018-02-26 20:36:00 [facility] Heart Rate 2018-02-26 20:36:00 [facility] Temperature Oral (F) 2018-02-26 19:50:00 99.1 F [facility] Weight 2018-02-26 19:50:00 [facility] Heart Rate 2018-02-26 19:50:00 [facility] Systolic (mm Hg) 2018-02-26 19:50:00 Suleman [facility] Joon Diastolic (mm Hg) 2018-02-26 19:50:00 [facility] Respitory Rate 2018-02-26 19:50:00 [facility] Respitory Rate 2016-11-19 03:43:00 [facility] Systolic (mm Hg) 2016-11-19 03:43:00 Suleman [facility] Joon Diastolic (mm Hg) 2016-11-19 03:43:00 [facility] Respitory Rate 2016-11-19 02:00:00 [facility] Systolic (mm Hg) 2016-11-19 02:00:00 Suleman rial Joon Diastolic (mm Hg) 2016-11-19 02:00:00 [facility] Respitory Rate 2016-11-19 01:42:00 [facility] Systolic (mm Hg) 2016-11-19 01:42:00 Suleman rial Joon Diastolic (mm Hg) 2016-11-19 01:42:00 [facility] Heart Rate 2016-11-19 00:48:00 [facility] Weight 2016-11-19 00:23:00 [facility] Temperature Oral (F) 2016-11-19 00:23:00 99.6 F [facility] Height 2016-11-19 00:23:00 160.02 cm [facility] BMI Calculated 2016-11-19 00:23:00 [facility] Heart Rate 2016-11-19 00:23:00 [facility] Respitory Rate 2015-07-28 11:56:00 [facility] Heart Rate 2015-07-28 11:56:00 [facility] Temperature Oral (F) 2015-07-28 11:56:00 98.2 F [facility] Systolic (mm Hg) 2015-07-28 11:56:00 Suleman [facility] Roann Diastolic (mm Hg) 2015-07-28 11:56:00 [facility] Temperature Oral (F) 2015-07-28 10:03:00 98.1 F [facility] Height 2015-07-28 10:03:00 167.64 cm [facility] Weight 2015-07-28 10:03:00 [facility] BMI Calculated 2015-07-28 10:03:00 [facility] Systolic (mm Hg) 2015-07-28 10:03:00 Suleman rial Joon Diastolic (mm Hg) 2015-07-28 10:03:00 [facility] Respitory Rate 2015-07-28 10:03:00 [facility] Heart Rate 2015-07-28 10:03:00 [facility] Systolic (mm Hg) 2015-06-08 07:40:00 Suleman [facility] Roann Diastolic (mm Hg) 2015-06-08 07:40:00 [facility] Temperature Oral (F) 2015-06-08 07:40:00 99.4 F [facility] Respitory Rate 2015-06-08 07:40:00 [facility] Heart Rate 2015-06-08 07:40:00 [facility] Weight 2015-06-08 05:16:00 [facility] BMI Calculated 2015-06-08 05:16:00 [facility] Height 2015-06-08 05:16:00 160.02 cm [facility] Temperature Oral (F) 2015-06-08 05:16:00 102.5 F [facility] Respitory Rate 2015-06-08 05:16:00 [facility] Heart Rate 2015-06-08 05:16:00 [facility] Systolic (mm Hg) 2015-06-08 05:16:00 Suleman rial Joon Diastolic (mm Hg) 2015-06-08 05:16:00 [facility] Systolic (mm Hg) 2015-04-21 07:26:00 Suleman [facility] Joon Diastolic (mm Hg) 2015-04-21 07:26:00 [facility] Respitory Rate 2015-04-21 07:26:00 [facility] Heart Rate 2015-04-21 07:26:00 [facility] Weight 2015-04-21 05:43:00 [facility] Temperature Oral (F) 2015-04-21 05:43:00 98.4 F [facility] BMI Calculated 2015-04-21 05:43:00 [facility] Height 2015-04-21 05:43:00 160.02 cm [facility] Systolic (mm Hg) 2015-04-21 05:43:00 Suleman [facility] Joon Diastolic (mm Hg) 2015-04-21 05:43:00 [facility] Respitory Rate 2015-04-21 05:43:00 [facility] Heart Rate 2015-04-21 05:43:00 [facility] Diastolic (mm Hg) 2014-06-09 16:33:00 [facility] Systolic (mm Hg) 2014-06-09 16:33:00 Suleman [facility] Joon Heart Rate 2014-06-09 16:33:00 [facility] Respitory Rate 2014-06-09 16:33:00 [facility] Temperature Oral (F) 2014-06-09 16:33:00 99.8 F [facility] Diastolic (mm Hg) 2014-06-09 15:37:00 [facility] Systolic (mm Hg) 2014-06-09 15:37:00 Suleman [facility] Joon Heart Rate 2014-06-09 15:37:00 [facility] Respitory Rate 2014-06-09 15:37:00 [facility] Temperature Oral (F) 2014-06-09 15:37:00 100.9 F [facility] Height 2014-06-09 15:37:00 160.02 cm [facility] Weight 2014-06-09 15:37:00 [facility] BMI Calculated 2014-06-09 15:37:00 [facility] Respitory Rate 2014-01-21 04:47:00 [facility] Systolic (mm Hg) 2014-01-21 04:47:00 Suleman [facility] Joon Heart Rate 2014-01-21 04:47:00 [facility] Diastolic (mm Hg) 2014-01-21 04:47:00 [facility] Temperature Oral (F) 2014-01-21 04:47:00 97.8 F [facility] Diastolic (mm Hg) 2014-01-21 03:31:00 [facility] Systolic (mm Hg) 2014-01-21 03:31:00 Suleman [facility] Joon Respitory Rate 2014-01-21 03:31:00 [facility] Heart Rate 2014-01-21 03:31:00 [facility] Heart Rate 2014-01-21 01:00:00 [facility] Respitory Rate 2014-01-21 01:00:00 [facility] Systolic (mm Hg) 2014-01-21 01:00:00 Suleman [facility] Joon Diastolic (mm Hg) 2014-01-21 01:00:00 [facility] BMI Calculated 2014-01-20 20:25:00 [facility] Weight 2014-01-20 20:25:00 [facility] Temperature Oral (F) 2014-01-20 20:25:00 98.6 F [facility] Height 2014-01-20 20:25:00 160.02 cm [facility] Diastolic (mm Hg) 2013-12-17 01:20:00 [facility] Systolic (mm Hg) 2013-12-17 01:20:00 Suleman rial Roann Respitory Rate 2013-12-17 01:20:00 [facility] Heart Rate 2013-12-17 01:20:00 [facility] Heart Rate 2013-12-17 00:00:00 [facility] Respitory Rate 2013-12-17 00:00:00 [facility] Systolic (mm Hg) 2013-12-17 00:00:00 Suleman rial Roann Diastolic (mm Hg) 2013-12-17 00:00:00 [facility] Weight 2013-12-16 21:18:00 [facility] Height 2013-12-16 21:18:00 160.02 cm [facility] BMI Calculated 2013-12-16 21:18:00 [facility] Respitory Rate 2013-12-16 21:18:00 [facility] Temperature Oral (F) 2013-12-16 21:18:00 98.7 F [facility] Heart Rate 2013-12-16 21:18:00 [facility] Diastolic (mm Hg) 2013-12-16 21:18:00 [facility] Systolic (mm Hg) 2013-12-16 21:18:00 Suleman [facility] Joon Weight 2013-12-03 04:25:00 [facility] Systolic (mm Hg) 2013-12-03 04:25:00 Suleman [facility] Joon Heart Rate 2013-12-03 04:25:00 [facility] Respitory Rate 2013-12-03 04:25:00 [facility] Diastolic (mm Hg) 2013-12-03 04:25:00 [facility] Temperature Oral (F) 2013-12-03 04:25:00 98.4 F [facility] BMI Calculated 2013-12-03 04:25:00 [facility] Height 2013-12-03 04:25:00 160.02 cm [facility] Procedures Procedure Date / Time Performed Performing Clinician Sour e CHEST PA LATERAL 2021-08-21 17:38:44 Rosette Garcia Seyb old COVID-19 QUALITATIVE 2020-04-27 20:45:00 Juan Jose Wilkins [facility] RT-PCR Karl Appendectomy [facility] Plan of Care Planned Activity Planned Date Details Comments Source Future Scheduled 2023-02-07 COVID-19 VACCINE (3 Meth [facility] Test 21:17:42 - Pfizer series) [code = COVID-19 VACCINE (3 - Pfizer series)] Future Scheduled 2023-02-07 INFLUENZA VACCINE Method [facility] Test 21:17:42 (#1) [code = INFLUENZA VACCINE (#1)] Future Scheduled 2023-02-04 COVID-19 VACCINE Methodi [facility] Test 22:43:19 (#1) [code = COVID-19 VACCINE (#1)] Future Scheduled 2023-02-04 INFLUENZA VACCINE Method [facility] Test 22:43:19 (#1) [code = INFLUENZA VACCINE (#1)] Future Scheduled 2023-02-04 COVID-19 VACCINE Methodi [facility] Test 22:43:19 (#1) [code = COVID-19 VACCINE (#1)] Future Scheduled 2023-02-04 INFLUENZA VACCINE Method [facility] Test 22:43:19 (#1) [code = INFLUENZA VACCINE (#1)] Future Scheduled 2022-09-01 COVID-19 VACCINE [facility] Test 01:50:39 (#1) [code = COVID-19 VACCINE (#1)] Future Scheduled 2022-09-01 INFLUENZA VACCINE [facility] Test 01:50:39 [code = INFLUENZA VACCINE] [...] INFLUENZA VACCINE] Future Scheduled 2022-04-07 [facility] 06:27[facility]26 VACCINES (1 of 3 - 3-dose series) [code = HEPATITIS B VACCINES (1 of 3 - 3-dose series)] Future Scheduled 2022-04-07 COVID-19 VACCINE [facility] Test 06:27:26 (#1) [code = COVID-19 VACCINE (#1)] Future Scheduled 2022-04-07 [facility]ENZA VACCINE [facility] Test 06:27:26 [code = INFLUENZA VACCINE] Future Scheduled [facility] screening (procedure) [code = 977014621] Future Scheduled INFLUENZA VACCINE [facility] Test [code = INFLUENZA VACCINE] Future Scheduled COVID-19 VACCINE [facility] Test (1) [code = COVID-19 VACCINE (1)] Future Scheduled INFLUENZA VACCINE [facility] Test [code = INFLUENZA VACCINE] Encounters Start End Encounter Admission Attending Care Care Encounter Source Date/Time Date/Time Type Type Clinicians Facility Department ID 2022-06-26 Outpatient [facility] [id number] 04:16:50 [id number] [facility] 2022-05-02 Outpatient [facility] [id number] [place] 07:15:49 [id number] [facility] 2022-04-24 Outpatient [facility] [id number] [place] 10:15:19 [id number] [facility] 2022-08-06 2022-08-06 Outpatient SCOBERCEA, [facility] [id number] [place] 11:00:00 11:00:00 [facility] 2022-06-25 2022-06-25 Office SAM Lam ORTHO 1.2.840.114 [id number] [place] 11:00:00 11:32:51 Visit [facility] [id number] H [facility] 9.2.7.2.686 [id number] 1 2022-05-18 2022-05-18 Outpatient SCOBERCEA, [facility] [id number] [place] 10:40:00 10:40:00 [facility] 2022-05-10 2022-05-10 Outpatient SCOBERCEA, [facility] [id number] [place] 11:00:00 11:00:00 [facility] 2022-01-11 2022-02-10 OP Therapy nullFlavo SMR [id number] Memoria 20:00:00 04:59:00 Patients travis Raya 01 l [facility] 2022-01-11 2022-02-10 OP Therapy nullFlavo SMR [id number] Memoria 20:00:00 04:59:00 Patients travis Raya l [facility] 2022-01-11 2022-02-09 Outpatient Carole, 2.16.840. 2.16.840.1 . [id number] 15:00:00 23:59:00 [facility] [id number]. [id number] 01 Taran 3.615.132 5.132 2022-02-08 2022-02-08 Office Scobercea, [facility]TP ORTHO 1.2.840.114 1 [id number] [place] 14:40:00 15:20:20 Visit Adalid RAYA [id number] H ealth K 9.2.7.2.686 [id number] 1 2021-12-07 2022-01-06 OP Therapy nullFlavo SMR [id number] Memoria 20:46:00 04:59:00 Patients r [employer] 00 l [facility] 2021-12-07 2022-01-06 OP Therapy nullFlavo [facility] [id number] Memoria 20:46:00 04:59:00 Patients r [employer] 00 l [facility] 2021-12-07 2022-01-05 Outpatient Scobercea, 2.16.840. 2.16.840.1 . [id number] 15:46:00 23:59:00 Adalid [id number]. [id number] 00 Taran 3.615.132 5.132 2022-01-05 2022-01-05 Telephone Jovanna Villafuerte [facility] 1.2.84 0.114 [id number] [place] 00:00:00 00:00:00 Jovanna Villafuerte 350.1.13.58 Health K 9.2.7.2.686 [id number] 1 2022-01-04 2022-01-04 Office Scobercekenia, [facility]TP ORTHO 1.2.840.114 1 [id number] [place] 08:00:00 09:07:35 Visit Adalid RAYA 350.1.13.58 H ealth K 9.2.7.2.686 [id number] 1 2021-11-23 2021-11-23 Office Scobercea, [facility]TP ORTHO 1.2.840.114 1 [id number] [place] 13:40:00 14:15:40 Visit Adalid RAYA 350.1.13.58 H ealth K 9.2.7.2.686 [id number] 1 2021-11-23 2021-11-23 Telephone Jovanna Villafuerte [facility] 1.2.84 0.114 [id number] [place] 00:00:00 00:00:00 Jovanna Villafuerte 350.1.13.58 Health K 9.2.7.2.686 [id number] 1 2021-11-16 2021-11-16 Emergency [facility] [id number] Memoria 16:59:48 20:59:00 r Joon 16 l [facility] 2021-11-16 2021-11-16 Emergency [facility]Fl[facility] [id number] Memoria 16:59:48 20:59:00 travis Dupree 16 l [facility] 2021-11-16 2021-11-16 Outpatient Maritza [facility] [id number] 11:59:48 15:59:00 Rosana Rachel Urban 2021-11-16 2021-11-16 Emergency E MARITZA MOSHE [place] 7516 MHNE 11:59:00 15:59:00 ROSANA 2021-11-14 2021-11-14 Emergency [facility] [id number] Memoria 16:53:27 20:08:00 travis Dupree 15 l [facility] 2021-11-14 2021-11-14 Emergency [facility] [id number] Memoria 16:53:27 20:08:00 travis Dupree 15 l [facility] 2021-11-14 2021-11-14 Outpatient Kathe [facility] [id number] 11:53:27 15:08:00 Etienne Iqbal 15 2021-11-14 2021-11-14 Emergency E KATHE MOS[place] 7515 MHNE 11:53:00 15:08:00 ETIENNE 2021-10-27 2021-10-27 Telephone Jovanna Villauferte [facility] ORTHO 1.2.84 0.114 [id number] [place] 00:00:00 00:00:00 Jovanna Villafuerte 350.1.13.58 Health K 9.2.7.2.686 [id number] 1 2021-10-26 2021-10-26 Office AquilesmaribelSAM ORTHO 1.2.840.114 1 [id number] [place] 13:40:00 14:38:19 Visit Adalid RAYA 350.1.13.58 H ealth K 9.2.7.2.686 [id number] 1 2021-10-23 2021-10-23 Telephone Yessy Winters [facility] 1.2.840.114 [id number] [place] 00:00:00 00:00:00 Yessy Winters 350.1. 13.58 Health K 9.2.7.2.686 [id number] 1 2021-10-19 2021-10-19 Office Carole [facility] 1.2.840.114 1 [id number] [place] 15:00:00 15:50:13 Visit Adalid RAYA 350.1.13.58 H ealth K 9.2.7.2.686 [id number] 1 2021-09-21 2021-09-21 Telephone Jovanna Villafuerte [facility] 1.2.84 0.114 [id number] [place] 00:00:00 00:00:00 Jovanna Villafuerte 350.1.13.58 Health K 9.2.7.2.686 [id number] 1 2021-09-20 2021-09-20 Office Carole [facility] 1.2.840.114 1 [id number] [place] 08:00:00 08:28:13 Visit Adalid RAYA 350.1.13.58 H ealth K 9.2.7.2.686 [id number] 1 2021-09-04 2021-09-04 Office Carole [facility] 1.2.840.114 1 [id number] [place] 08:30:00 09:03:56 Visit Adalid RAYA 350.1.13.58 H ealth K 9.2.7.2.686 [id number] 1 2021-09-04 2021-09-04 Telephone AndreeSari villaon [facility] 1.2.84 0.114 [id number] [place] 00:00:00 00:00:00 Jovanna Villafuerte 350.1.13.58 Health K 9.2.7.2.686 [id number] 1 2021-08-28 2021-08-29 [facility] [id number] Memoria 21:14:43 00:41:00 r Joon 14 l [facility] 2021-08-28 2021-08-29 Emergency [facility] [id number] Memoria 21:14:43 00:41:00 r Joon 14 l [facility] 2021-08-29 2021-08-29 Abstract SAM Lam YESENIA 1.2.840.114 [id number] [place] 00:00:00 00:00:00 [facility] 350.1.13.58 Health A 9.2.7.2.686 [id number] 1 2021-08-28 2021-08-28 Outpatient Yaw [facility] [id number] 16:14:43 19:41:00 Cora [facility] 2021-08-28 2021-08-28 Emergency E JOE JACOBS [place] 7514 [place] 16:14:00 19:41:00 CORA 2021-08-21 2021-08-21 Outpatient LAKESHIA ARELLANO [id number] [place] 12:15:00 12:15:00 Seybol d 2021-08-21 2021-08-21 Office [facility] 1.2.840.114 [id number] [place] 11:15:00 11:30:00 Visit [facility] 350.1.13.13 [facility] AND 1.2.7.2.686 DIAGNOSTI [id number] C CENTER 0 2021-02-02 2021-02-02 Clinical Septimus, 1.2.840.1 [id number] Methodi 08:59:25 09:04:25 Support Deangelo Humphrey [address]31.1.[address] 3.430.2.7 Hospit a .3.165594 l .8 2021-01-12 2021-01-12 Clinical 1.2.840.1 [id number] Methodi 08:08:25 08:13:[address] 3.430.2.7 Hospit a .3.076238 l .8 2020-05-28 2020-05-28 Emergency E TIM [facility] 1000 [id number] [facility] 05:09:00 08:44:00 RUBIA [facility] 2020-04-27 2020-04-27 Artur Wilkins 1.2.840.1 [id number] Methodi 14:20:42 14:25:42 Tavares [address] [place] [address] 3.430.2.7 Hospit a .[id number] l .8 2020-01-25 2020-01-25 [facility] [id number] Memoria 05:08:59 09:40:00 r Joon 13 l [facility] 2020-01-25 2020-01-25 Emergency [facility] [id number] Memoria 05:08:59 09:40:00 r Joon 13 l [facility] 2020-01-25 2020-01-25 Outpatient Chris Fuentes [facility] [id number] 00:08:59 04:40:00 Adamon 13 2020-01-25 2020-01-25 Emergency E CHRIS FUENTES [facility] 7513 [facility] 00:08:00 04:40:00 2019-07-18 2019-07-18 [facility] [id number] Memoria 20:06:56 21:00:00 r Joon 12 l [facility] 2019-07-18 2019-07-18 Emergency [facility] [id number] Memoria 20:06:56 21:00:00 r Joon 12 l [facility] 2019-07-18 2019-07-18 Outpatient Arvind, [facility] [id number] 14:06:56 15:00:00 Dante [place] 12 2019-07-18 2019-07-18 Emergency E ARVIND, NW NW 7512 [address] 14:06:00 15:00:00 DANTE 2019-07-08 2019-07-09 [facility] [id number] Memoria 23:22:36 01:01:00 r Joon 11 l [facility] 2019-07-08 2019-07-09 [facility] [id number] Memoria 23:22:36 01:01:00 r Joon 11 l [facility] 2019-07-08 2019-07-08 Outpatient BAKHT, MHNW MHNW 0041 MHNW 17:00:00 23:59:00 JERMAIN 2019-07-08 2019-07-08 Outpatient Jethro [facility] [id number] 17:22:36 19:01:00 Angel Sauer 2019-07-08 2019-07-08 Emergency E JETHRO, MHNW MHNW 7511 MHNW 17:22:00 19:01:00 ANGEL 2018-02-26 2018-02-26 [facility] [id number] Memoria 19:48:00 23:07:00 travis Renee l [facility] 2018-02-26 2018-02-26 [facility] [id number] Memoria 19:48:00 23:07:00 travis Dupree [facility] 2018-02-26 2018-02-26 Outpatient Kenyetta, [facility] [id number] 14:48:00 18:07:00 Maximiliankenroy Alvarado 2017-07-03 2017-07-03 Outpatient [facility] [id number] [place] 00:00:00 00:00:00 [employer] [facility] 2017-06-28 2017-06-29 Outpatient [facility]CSO [facility] [id number] [place] 00:00:00 00:00:00 [employer] [facility] 2017-06-23 2017-06-23 Emergency E GERRI DYE [facility] [id number] [facility] 11:52:00 13:51:00 [facility] 2017-06-21 2017-06-22 Emergency E JESSY, [facility] [id number] [facility] 23:24:00 02:15:00 HERMAN [facility] 2016-11-19 2016-11-19 [facility] [id number] Memoria 00:07:00 04:39:00 travis negron [facility] 2016-11-19 2016-11-19 Emergency [facility] [id number] Memoria 00:07:00 04:39:00 travis negron [facility] 2016-11-18 2016-11-18 Outpatient See Griffin [facility] [id number] 19:07:00 23:39:00 Gaurav 2016-11-09 2016-11-09 Emergency E TESHA JIMÉNEZ [facility] [id number] [place] 12:10:00 13:05:00 [facility] 2015-07-28 2015-07-28 [facility] [id number] Memoria 10:00:00 12:25:00 Emergency r Joon 08 [facility] 2015-07-28 2015-07-28 [facility] [id number] Memoria 10:00:00 12:25:00 Emergency r Joon 08 [facility] 2015-07-28 2015-07-28 [facility] Allison[facility] [id number] 04:00:00 06:25:00 [place] [address] 2015-06-08 2015-06-08 [facility] [id number] Memoria 04:27:00 09:31:00 Emergency r Roann [address] [place] [address] 2015-06-08 2015-06-08 [facility] [id number] Memoria 04:27:00 09:31:00 Emergency r Roann 07 [facility] 2015-06-07 2015-06-08 Outpatient Yaw [facility] [id number] 22:27:00 03:31:00 Cora Santos 2015-04-21 2015-04-21 [facility] [id number] Memoria 05:24:00 07:48:00 Emergency r Joon 06 [facility] 2015-04-21 2015-04-21 [facility] [id number] Memoria 05:24:00 07:48:00 Emergency r Joon 06 [facility] 2015-04-20 2015-04-21 Outpatient See Griffin [facility] [id number] 23:24:00 01:48:00 Gaurav 06 2014-06-09 2014-06-09 [facility] [id number] Memoria 15:32:00 16:43:00 Emergency r Roann 05 [facility] 2014-06-09 2014-06-09 [facility] [id number] Memoria 15:32:00 16:43:00 Emergency r Joon [address] [place] [address] 2014-06-09 2014-06-09 Outpatient Lluvia, Mildred.16.840. 2.16.840.1. 3 [id number] 09:32:00 10:43:00 Joslyn Gandhi [id number]. [id number] 05 3.615.0.1 5.0.686 08 9064-08-20 2014-01-21 EC [facility] [id number] Memoria 20:22:00 04:57:00 Emergency r Joon 04 [facility] 2014-01-20 2014-01-21 EC [facility] [id number] Memoria 20:22:00 04:57:00 Emergency r Joon 04 [facility] 2014-01-20 2014-01-20 Outpatient Ritchie Vickers 2.16.840. 2.16.840.1. [id number] 15:22:00 23:57:00 Pop [id number]. [id number] 04 3.615.0.1 5.0.627 50 0914-07-16 2013-12-17 EC [facility] [id number] Memoria 21:09:00 01:25:00 Emergency r Roann 03 [facility] 2013-12-16 2013-12-17 EC [facility] [id number] Memoria 21:09:00 01:25:00 Emergency r Roann 03 [facility] 2013-12-16 2013-12-16 Outpatient Yaw, 2.16.840. 2.16.840.1. 3 [id number] 16:09:00 20:25:00 Cora [id number]. [id number] Tom 3.615.0.1 5.0.837 24 5628-07-03 2013-12-03 EC [facility] [id number] Memoria 03:54:00 06:38:00 Emergency r Joon 02 [facility] 2013-12-03 2013-12-03 [facility] [id number] Memoria 03:54:00 06:38:00 Emergency r Roann 02 [facility] 2013-12-02 2013-12-03 Outpatient Yaw, 2.16.840. 2.16.840.1. 3 [id number] 22:54:00 01:38:00 Cora [id number]. [id number] 02 Tom 3.615.0.1 5.0.101 01 Results Test Description Test Time Test Comments Results Result Comments Source CHEM [facility] 2021-11-16 17:23:00 Test Item Value Reference Range Interpretation Comme nts Glucose Lvl (test code = Glucose Lvl) 85 70-99 [facility] [id number] 17:23:00 Test Item Value Reference Range Interpretation Comments BUN (test code = BUN) 12-22 [facility] [id number] 17:23:00 Test Item Value Reference Range Interpretation Comments Creatinine Lvl (test code = Creatinine 1.21 0.50-1.40 Lvl) [facility] [id number] 17:23:00 Test Item Value Reference Range Interpretation Comments Sodium Lvl (test code = Sodium Lvl) 142 135-145 [facility] [id number] 17:23:00 Test Item Value Reference Range Interpretation Comments Glucose Lvl (test code = Glucose Lvl) 85 70-99 [facility] [id number] 17:23:00 Test Item Value Reference Range Interpretation Comments BUN (test code = BUN) 12-22 [facility] [employer] [id number] 17:23:00 Test Item Value Reference Range Interpretation Comments Creatinine Lvl (test code = Creatinine 1.21 0.50-1.40 Lvl) [facility] [id number] 17:23:00 Test Item Value Reference Range Interpretation Comments Sodium Lvl (test code = Sodium Lvl) 142 135-145 [facility] [id number] 17:23:00 Test Item Value Reference Range Interpretation Comments Potassium Lvl (test code = Potassium 3.8 3.5-5.1 Lvl) [facility] [id number] 17:23:00 Test Item Value Reference Range Interpretation Comments Potassium Lvl (test code = Potassium 3.8 3.5-5.1 Lvl) [facility] [id number] 17:23:00 Test Item Value Reference Range Interpretation Comments Chloride Lvl (test code = Chloride Lvl) 108 95-109 [place] 255432-06-16 17:23:00 Test Item Value Reference Range Interpretation Comments CO2 (test code = CO2) 29 24-32 [place] 255432-06-16 17:23:00 Test Item Value Reference Range Interpretation Comments Calcium Lvl (test code = Calcium Lvl) 8.6 8.5-10.5 [place] 255432-06-16 17:23:00 Test Item Value Reference Range Interpretation Comments Total Protein (test code = Total 7.3 6.4-8.4 Protein) [place] 255432-06-16 17:23:00 Test Item Value Reference Range Interpretation Comments Albumin Lvl (test code = Albumin Lvl) 3.7 3.5-5.0 [place] 255432-06-16 17:23:00 Test Item Value Reference Range Interpretation Comments ALT (test code = ALT) 41 See_Comment [Auto mated message] The system which ge nerated this result transmit ezequiel reference range : <=65. The reference range was not used to interpr et this result as grace l/abnormal. [facility] [id number] 17:23:00 Test Item Value Reference Range Interpretation Comments AST (test code = AST) 18 See_Comment [Auto mated message] The system which ge nerated this result transmit ezequiel reference range : <=37. The reference range was not used to interpr et this result as grace l/abnormal. [place] 255432-06-16 17:23:00 Test Item Value Reference Range Interpretation Comments Alk Phos (test code = Alk Phos) 63 39-136 [facility] [id number] 17:23:00 Test Item Value Reference Range Interpretation Comments Bili Total (test code = Bili Total) 0.4 0.2-1.3 [facility] [id number] 17:23:00 Test Item Value Reference Range Interpretation Comments Chloride Lvl (test code = Chloride Lvl) 108 95-109 [place] 255432-06-16 17:23:00 Test Item Value Reference Range Interpretation Comments AGAP (test code = AGAP) 8.8 10.0-20.0 [facility] [id number] 17:23:00 Test Item Value Reference Range Interpretation Comments B/C Ratio (test code = B/C Ratio) 11 1 6-25 [place] [address]-06-16 17:23:00 Test Item Value Reference Range Interpretation Comments Globulin (test code = Globulin) 3.6 2.7-4.2 [place] [address]-06-16 17:23:00 Test Item Value Reference Range Interpretation Comments A/G Ratio (test code = A/G Ratio) 1.0 1 0.7-1.6 [place] [address]-06-16 17:23:00 Test Item Value Reference Range Interpretation Comments eGFR (test code = eGFR) 78 [place] 255432-06-16 17:23:00 Test Item Value Reference Range Interpretation Comments Lactic Acid Lvl (test code = Lactic 1.3 0.5-2.2 Acid Lvl) [place] 255432-06-16 17:23:00 Test Item Value Reference Range Interpretation Comments Procalcitonin Lvl (test no gt See_Comment [Au tomated message] code = Procalcitonin Lvl) e system which generated this result transmitted ref erence range: <=0.10. The reference range was not used to interpr et this result as normal/abnormal . [place] 609592-06-16 17:23:00 Test Item Value Reference Range Interpretation Comments WBC (test code = WBC) 9.5 3.7-10.4 [place] [address]-06-16 17:23:00 Test Item Value Reference Range Interpretation Comments RBC (test code = RBC) 4.66 4.70-6.10 [place] [address]-06-16 17:23:00 Test Item Value Reference Range Interpretation Comments Hgb (test code = Hgb) 14.4 14.0-18.0 [place] [address]-06-16 17:23:00 Test Item Value Reference Range Interpretation Comments CO2 (test code = CO2) 29 24-32 [place] [address]-06-16 17:23:00 Test Item Value Reference Range Interpretation Comments Hct (test code = Hct) 42.6 42.0-54.0 [place] [address]-06-16 17:23:00 Test Item Value Reference Range Interpretation Comments MCV (test code = MCV) 91.4 80.0-94.0 [facility]KXATCJDUMK2895-87-47 17:23:00 Test Item Value Reference Range Interpretation Comments MCH (test code = MCH) 30.9 pg 27.0-31.0 [facility] HospitalIjdanjaVLSWMSRZUX8595-06-22 17:23:00 Test Item Value Reference Range Interpretation Comments MCHC (test code = MCHC) 33.8 32.0-36.0 [facility] AustinVollowtBPOUMTJBPY6901-07-36 17:23:00 Test Item Value Reference Range Interpretation Comments RDW (test code = RDW) 13.1 11.5-14.5 [facility] AustinXdcujmfHGANZSBKEO4682-26-13 17:23:00 Test Item Value Reference Range Interpretation Comments Platelet (test code = Platelet) 231 133-450 [facility] AustinArrknuuMEIKXLNLGS5762-67-40 17:23:00 Test Item Value Reference Range Interpretation Comments MPV (test code = MPV) 9.8 7.4-10.4 [facility] AustinAgwcgkiQGWLBTQKDB5039-69-00 17:23:00 Test Item Value Reference Range Interpretation Comments Segs (test code = Segs) 71.2 45.0-75.0 [facility] HospitalEvpdatwHUVUUDQARD2410-16-41 17:23:00 Test Item Value Reference Range Interpretation Comments Lymphocytes (test code = Lymphocytes) 15.6 20.0-40.0 [facility] HospitalNzhpwqnJFSOGHBLMR8446-72-41 17:23:00 Test Item Value Reference Range Interpretation Comments Monocytes (test code = Monocytes) 9.0 2.0-12.0 [facility]2022-06-16 17:23:00 Test Item Value Reference Range Interpretation Comments Calcium Lvl (test code = Calcium Lvl) 8.6 8.5-10.5 [facility] [id number] 17:23:00 Test Item Value Reference Range Interpretation Comments Eosinophils (test code = 3.5 See_Comment [A utomated message] The Eosinophils) system which ge nerated this result tra nsmitted reference range : <=4.0. The reference r tony was not used to int erpret this result as normal/abnormal . [facility] AustinDvuhotlTZXQCEBJWB5042-88-30 17:23:00 Test Item Value Reference Range Interpretation Comments Basophils (test code = 0.7 See_Comment [Aut omated message] The Basophils) system which ge nerated this result tra nsmitted reference range : <=1.0. The reference r tony was not used to int erpret this result as normal/abnormal . [place] 609592-06-16 17:23:00 Test Item Value Reference Range Interpretation Comments Neutrophils # (test code = Neutrophils 6.8 1.5-8.1 #) [facility] AustinQbaojokZEBBOJQAHY8923-25-14 17:23:00 Test Item Value Reference Range Interpretation Comments Lymphocytes # (test code = Lymphocytes 1.5 1.0-5.5 #) [place] 609592-06-16 17:23:00 Test Item Value Reference Range Interpretation Comments Monocytes # (test code 0.9 See_Comment [Aut omated message] The = Monocytes #) system which generated this result tra nsmitted reference range : <=0.8. The reference r tony was not used to int erpret this result as normal/abnormal . [place] 609592-06-16 17:23:00 Test Item Value Reference Range Interpretation Comments Eosinophils # (test code 0.3 See_Comment [A utomated message] The = Eosinophils #) system whic h generated this result tra nsmitted reference range : <=0.5. The reference r tony was not used to int erpret this result as normal/abnormal . [facility] AustinFxnbwikAJNADENBGB8757-37-69 17:23:00 Test Item Value Reference Range Interpretation Comments Basophils # (test code 0.1 See_Comment [Aut omated message] The = Basophils #) system which generated this result tra nsmitted reference range : <=0.2. The reference r tony was not used to int erpret this result as normal/abnormal . [facility] [id number] 17:23:00 Test Item Value Reference Range Interpretation Comments Total Protein (test code = Total 7.3 6.4-8.4 Protein) [facility] [id number] 17:23:00 Test Item Value Reference Range Interpretation Comments Albumin Lvl (test code = Albumin Lvl) 3.7 3.5-5.0 [facility] [id number] 17:23:00 Test Item Value Reference Range Interpretation Comments ALT (test code = ALT) 41 See_Comment [Auto mated message] The system which ge nerated this result transmit ezequiel reference range : <=65. The reference range was not used to interpr et this result as grace l/abnormal. [facility] [employer] [id number] 17:23:00 Test Item Value Reference Range Interpretation Comments AST (test code = AST) 18 See_Comment [Auto mated message] The system which ge nerated this result transmit ezequiel reference range : <=37. The reference range was not used to interpr et this result as grace l/abnormal. [facility] [id number] 17:23:00 Test Item Value Reference Range Interpretation Comments Alk Phos (test code = Alk Phos) 63 39-136 [facility] [id number] 17:23:00 Test Item Value Reference Range Interpretation Comments Bili Total (test code = Bili Total) 0.4 0.2-1.3 [facility] [id number] 17:23:00 Test Item Value Reference Range Interpretation Comments AGAP (test code = AGAP) 8.8 10.0-20.0 [facility] [id number] 17:23:00 Test Item Value Reference Range Interpretation Comments B/C Ratio (test code = B/C Ratio) 11 1 6-25 [facility] [id number] 17:23:00 Test Item Value Reference Range Interpretation Comments Globulin (test code = Globulin) 3.6 2.7-4.2 [facility] [id number] 17:23:00 Test Item Value Reference Range Interpretation Comments A/G Ratio (test code = A/G Ratio) 1.0 1 0.7-1.6 [facility] [id number] 17:23:00 Test Item Value Reference Range Interpretation Comments eGFR (test code = eGFR) 78 [facility] [id number] 17:23:00 Test Item Value Reference Range Interpretation Comments Lactic Acid Lvl (test code = Lactic 1.3 0.5-2.2 Acid Lvl) [facility] [id number] 17:23:00 Test Item Value Reference Range Interpretation Comments Procalcitonin Lvl (test no gt See_Comment [Au tomated message] code = Procalcitonin Lvl) Th e system which generated this result transmitted ref erence range: <=0.10. The reference range was not used to interpr et this result as normal/abnormal . [place] [address]-06-16 17:23:00 Test Item Value Reference Range Interpretation Comments WBC (test code = WBC) 9.5 3.7-10.4 [place] [address]-06-16 17:23:00 Test Item Value Reference Range Interpretation Comments RBC (test code = RBC) 4.66 4.70-6.10 [place] [address]-06-16 17:23:00 Test Item Value Reference Range Interpretation Comments Hgb (test code = Hgb) 14.4 14.0-18.0 [place] [address]-06-16 17:23:00 Test Item Value Reference Range Interpretation Comments Hct (test code = Hct) 42.6 42.0-54.0 [place] [address]-06-16 17:23:00 Test Item Value Reference Range Interpretation Comments MCV (test code = MCV) 91.4 80.0-94.0 [place] [address]-06-16 17:23:00 Test Item Value Reference Range Interpretation Comments MCH (test code = MCH) 30.9 pg 27.0-31.0 [place] [address]-06-16 17:23:00 Test Item Value Reference Range Interpretation Comments MCHC (test code = MCHC) 33.8 32.0-36.0 [place] [address]-06-16 17:23:00 Test Item Value Reference Range Interpretation Comments RDW (test code = RDW) 13.1 11.5-14.5 [place] [address]-06-16 17:23:00 Test Item Value Reference Range Interpretation Comments Platelet (test code = Platelet) 231 133-450 [place] 609592-06-16 17:23:00 Test Item Value Reference Range Interpretation Comments MPV (test code = MPV) 9.8 7.4-10.4 [place] [address]-06-16 17:23:00 Test Item Value Reference Range Interpretation Comments Segs (test code = Segs) 71.2 45.0-75.0 [place] [address]-06-16 17:23:00 Test Item Value Reference Range Interpretation Comments Lymphocytes (test code = Lymphocytes) 15.6 20.0-40.0 [place] [address]-06-16 17:23:00 Test Item Value Reference Range Interpretation Comments Monocytes (test code = Monocytes) 9.0 2.0-12.0 [place] 255432-06-16 17:23:00 Test Item Value Reference Range Interpretation Comments Glucose Lvl (test code = Glucose Lvl) 85 70-99 [place] 255432-06-16 17:23:00 Test Item Value Reference Range Interpretation Comments BUN (test code = BUN) 13 7-22 [place] 255432-06-16 17:23:00 Test Item Value Reference Range Interpretation Comments Creatinine Lvl (test code = Creatinine 1.21 0.50-1.40 Lvl) [place] 255432-06-16 17:23:00 Test Item Value Reference Range Interpretation Comments Sodium Lvl (test code = Sodium Lvl) 142 135-145 [facility] [id number] 17:23:00 Test Item Value Reference Range Interpretation Comments Eosinophils (test code = 3.5 See_Comment [A utomated message] The Eosinophils) system which ge nerated this result tra nsmitted reference range : <=4.0. The reference r tony was not used to int erpret this result as normal/abnormal . [place] 255432-06-16 17:23:00 Test Item Value Reference Range Interpretation Comments Potassium Lvl (test code = Potassium 3.8 3.5-5.1 Lvl) [place] 255432-06-16 17:23:00 Test Item Value Reference Range Interpretation Comments Chloride Lvl (test code = Chloride Lvl) 108 95-109 [place] 255432-06-16 17:23:00 Test Item Value Reference Range Interpretation Comments CO2 (test code = CO2) 29 24-32 [place] 255432-06-16 17:23:00 Test Item Value Reference Range Interpretation Comments Calcium Lvl (test code = Calcium Lvl) 8.6 8.5-10.5 [place] 255432-06-16 17:23:00 Test Item Value Reference Range Interpretation Comments Total Protein (test code = Total 7.3 6.4-8.4 Protein) [place] 255432-06-16 17:23:00 Test Item Value Reference Range Interpretation Comments Albumin Lvl (test code = Albumin Lvl) 3.7 3.5-5.0 [facility] [id number] 17:23:00 Test Item Value Reference Range Interpretation Comments ALT (test code = ALT) 41 See_Comment [Auto mated message] The system which ge nerated this result transmit ezequiel reference range : <=65. The reference range was not used to interpr et this result as grace l/abnormal. [facility] [id number] 17:23:00 Test Item Value Reference Range Interpretation Comments AST (test code = AST) 18 See_Comment [Auto mated message] The system which ge nerated this result transmit ezequiel reference range : <=37. The reference range was not used to interpr et this result as grace l/abnormal. [facility] [id number] 17:23:00 Test Item Value Reference Range Interpretation Comments Alk Phos (test code = Alk Phos) 63 39-136 [facility] [id number] 17:23:00 Test Item Value Reference Range Interpretation Comments Bili Total (test code = Bili Total) 0.4 0.2-1.3 [facility] AustinPgwgfvqIGKIPDVCTW2100-68-10 17:23:00 Test Item Value Reference Range Interpretation Comments Basophils (test code = 0.7 See_Comment [Aut omated message] The Basophils) system which ge nerated this result tra nsmitted reference range : <=1.0. The reference r tony was not used to int erpret this result as normal/abnormal . [facility] [id number] 17:23:00 Test Item Value Reference Range Interpretation Comments AGAP (test code = AGAP) 8.8 10.0-20.0 [facility] [id number] 17:23:00 Test Item Value Reference Range Interpretation Comments B/C Ratio (test code = B/C Ratio) 11 1 6-25 [facility] [id number] 17:23:00 Test Item Value Reference Range Interpretation Comments Globulin (test code = Globulin) 3.6 2.7-4.2 [facility] [id number] 17:23:00 Test Item Value Reference Range Interpretation Comments A/G Ratio (test code = A/G Ratio) 1.0 1 0.7-1.6 [facility]2022-06-16 17:23:00 Test Item Value Reference Range Interpretation Comments eGFR (test code = eGFR) 78 [facility]2022-06-16 17:23:00 Test Item Value Reference Range Interpretation Comments Lactic Acid Lvl (test code = Lactic 1.3 0.5-2.2 Acid Lvl) [place] 255432-06-16 17:23:00 Test Item Value Reference Range Interpretation Comments Procalcitonin Lvl (test no gt See_Comment [Au tomated message] code = Procalcitonin Lvl) Th e system which generated this result transmitted ref erence range: <=0.10. The reference range was not used to interpr et this result as normal/abnormal . [place] 609592-06-16 17:23:00 Test Item Value Reference Range Interpretation Comments WBC (test code = WBC) 9.5 3.7-10.4 [place] 609592-06-16 17:23:00 Test Item Value Reference Range Interpretation Comments RBC (test code = RBC) 4.66 4.70-6.10 [facility] AustinAyazxkqITWBMPRUBT9976-13-60 17:23:00 Test Item Value Reference Range Interpretation Comments Hgb (test code = Hgb) 14.4 14.0-18.0 [place] [address]-06-16 17:23:00 Test Item Value Reference Range Interpretation Comments Neutrophils # (test code = Neutrophils 6.8 1.5-8.1 #) [place] 609592-06-16 17:23:00 Test Item Value Reference Range Interpretation Comments Hct (test code = Hct) 42.6 42.0-54.0 [place] [address]-06-16 17:23:00 Test Item Value Reference Range Interpretation Comments MCV (test code = MCV) 91.4 80.0-94.0 [place] [address]-06-16 17:23:00 Test Item Value Reference Range Interpretation Comments MCH (test code = MCH) 30.9 pg 27.0-31.0 [place] [address]-06-16 17:23:00 Test Item Value Reference Range Interpretation Comments MCHC (test code = MCHC) 33.8 32.0-36.0 [place] [address]-06-16 17:23:00 Test Item Value Reference Range Interpretation Comments RDW (test code = RDW) 13.1 11.5-14.5 [place] [address]-06-16 17:23:00 Test Item Value Reference Range Interpretation Comments Platelet (test code = Platelet) 231 133-450 [place] 609592-06-16 17:23:00 Test Item Value Reference Range Interpretation Comments MPV (test code = MPV) 9.8 7.4-10.4 [place] [address]-06-16 17:23:00 Test Item Value Reference Range Interpretation Comments Segs (test code = Segs) 71.2 45.0-75.0 [place] [address]-06-16 17:23:00 Test Item Value Reference Range Interpretation Comments Lymphocytes (test code = Lymphocytes) 15.6 20.0-40.0 [place] 609592-06-16 17:23:00 Test Item Value Reference Range Interpretation Comments Monocytes (test code = Monocytes) 9.0 2.0-12.0 [place] [address]-06-16 17:23:00 Test Item Value Reference Range Interpretation Comments Lymphocytes # (test code = Lymphocytes 1.5 1.0-5.5 #) [facility] AustinEoaryydPPRCARBCXJ3976-32-68 17:23:00 Test Item Value Reference Range Interpretation Comments Eosinophils (test code = 3.5 See_Comment [A utomated message] The Eosinophils) system which ge nerated this result tra nsmitted reference range : <=4.0. The reference r tony was not used to int erpret this result as normal/abnormal . [place] 609592-06-16 17:23:00 Test Item Value Reference Range Interpretation Comments Basophils (test code = 0.7 See_Comment [Aut omated message] The Basophils) system which ge nerated this result tra nsmitted reference range : <=1.0. The reference r tony was not used to int erpret this result as normal/abnormal . [place] [address]-06-16 17:23:00 Test Item Value Reference Range Interpretation Comments Neutrophils # (test code = Neutrophils 6.8 1.5-8.1 #) [place] [address]-06-16 17:23:00 Test Item Value Reference Range Interpretation Comments Lymphocytes # (test code = Lymphocytes 1.5 1.0-5.5 #) [place] 609592-06-16 17:23:00 Test Item Value Reference Range Interpretation Comments Monocytes # (test code 0.9 See_Comment [Aut omated message] The = Monocytes #) system which generated this result tra nsmitted reference range : <=0.8. The reference r tony was not used to int erpret this result as normal/abnormal . [place] 609592-06-16 17:23:00 Test Item Value Reference Range Interpretation Comments Eosinophils # (test code 0.3 See_Comment [A utomated message] The = Eosinophils #) system [facility] [employer] generated this result tra nsmitted reference range : <=0.5. The reference r tony was not used to int erpret this result as normal/abnormal . [place] 609592-06-16 17:23:00 Test Item Value Reference Range Interpretation Comments Basophils # (test code 0.1 See_Comment [Aut omated message] The = Basophils #) system which generated this result tra nsmitted reference range : <=0.2. The reference r tony was not used to int erpret this result as normal/abnormal . [place] 609592-06-16 17:23:00 Test Item Value Reference Range Interpretation Comments Monocytes # (test code 0.9 See_Comment [Aut omated message] The = Monocytes #) system which generated this result tra nsmitted reference range : <=0.8. The reference r tony was not used to int erpret this result as normal/abnormal . [place] 609592-06-16 17:23:00 Test Item Value Reference Range Interpretation Comments Eosinophils # (test code 0.3 See_Comment [A utomated message] The = Eosinophils #) system ic [employer] generated this result tra nsmitted reference range : <=0.5. The reference r tony was not used to int erpret this result as normal/abnormal . [place] 609592-06-16 17:23:00 Test Item Value Reference Range Interpretation Comments Basophils # (test code 0.1 See_Comment [Aut omated message] The = Basophils #) system which generated this result tra nsmitted reference range : <=0.2. The reference r tony was not used to int erpret this result as normal/abnormal . [place] 255432-06-16 17:23:00 Test Item Value Reference Range Interpretation Comments Glucose Lvl (test code = Glucose Lvl) 85 70-99 [place] 255432-06-16 17:23:00 Test Item Value Reference Range Interpretation Comments BUN (test code = BUN) 13 7-22 [place] 255432-06-16 17:23:00 Test Item Value Reference Range Interpretation Comments Creatinine Lvl (test code = Creatinine 1.21 0.50-1.40 Lvl) [place] 255432-06-16 17:23:00 Test Item Value Reference Range Interpretation Comments Sodium Lvl (test code = Sodium Lvl) 142 135-145 [place] 255432-06-16 17:23:00 Test Item Value Reference Range Interpretation Comments Potassium Lvl (test code = Potassium 3.8 3.5-5.1 Lvl) [place] 255432-06-16 17:23:00 Test Item Value Reference Range Interpretation Comments Chloride Lvl (test code = Chloride Lvl) 108 95-109 [place] 255432-06-16 17:23:00 Test Item Value Reference Range Interpretation Comments CO2 (test code = CO2) 29 24-32 [place] 255432-06-16 17:23:00 Test Item Value Reference Range Interpretation Comments Calcium Lvl (test code = Calcium Lvl) 8.6 8.5-10.5 [facility]2022-06-16 17:23:00 Test Item Value Reference Range Interpretation Comments Total Protein (test code = Total 7.3 6.4-8.4 Protein) [place] 255432-06-16 17:23:00 Test Item Value Reference Range Interpretation Comments Albumin Lvl (test code = Albumin Lvl) 3.7 3.5-5.0 [place] 255432-06-16 17:23:00 Test Item Value Reference Range Interpretation Comments ALT (test code = ALT) 41 See_Comment [Auto mated message] The system which ge nerated this result transmit ezequiel reference range : <=65. The reference range was not used to interpr et this result as grace l/abnormal. [place] [address]-06-16 17:23:00 Test Item Value Reference Range Interpretation Comments AST (test code = AST) 18 See_Comment [Auto mated message] The system which ge nerated this result transmit ezequiel reference range : <=37. The reference range was not used to interpr et this result as grace l/abnormal. [facility]2022-06-16 17:23:00 Test Item Value Reference Range Interpretation Comments Alk Phos (test code = Alk Phos) 63 39-136 [facility]2022-06-16 17:23:00 Test Item Value Reference Range Interpretation Comments Bili Total (test code = Bili Total) 0.4 0.2-1.3 [place] 255432-06-16 17:23:00 Test Item Value Reference Range Interpretation Comments AGAP (test code = AGAP) 8.8 10.0-20.0 [facility]2022-06-16 17:23:00 Test Item Value Reference Range Interpretation Comments B/C Ratio (test code = B/C Ratio) 11 1 6-25 [place] [address]-06-16 17:23:00 Test Item Value Reference Range Interpretation Comments Globulin (test code = Globulin) 3.6 2.7-4.2 [facility]2022-06-16 17:23:00 Test Item Value Reference Range Interpretation Comments A/G Ratio (test code = A/G Ratio) 1.0 1 0.7-1.6 [facility]2022-06-16 17:23:00 Test Item Value Reference Range Interpretation Comments eGFR (test code = eGFR) 78 [place] 255432-06-16 17:23:00 Test Item Value Reference Range Interpretation Comments Lactic Acid Lvl (test code = Lactic 1.3 0.5-2.2 Acid Lvl) [place] 255432-06-16 17:23:00 Test Item Value Reference Range Interpretation Comments Procalcitonin Lvl (test no gt See_Comment [Au tomated message] code = Procalcitonin Lvl) Th e system which generated this result transmitted ref erence range: <=0.10. The reference range was not used to interpr et this result as normal/abnormal . [place] 609592-06-16 17:23:00 Test Item Value Reference Range Interpretation Comments WBC (test code = WBC) 9.5 3.7-10.4 [facility]otyxpgWYITSMWIJH3192-75-75 17:23:00 Test Item Value Reference Range Interpretation Comments RBC (test code = RBC) 4.66 4.70-6.10 [facility] AustinIryypvaZQKOZBROAN7545-51-10 17:23:00 Test Item Value Reference Range Interpretation Comments Hgb (test code = Hgb) 14.4 14.0-18.0 [facility] AustinPvoztxwBZIPCAMOEX9332-46-04 17:23:00 Test Item Value Reference Range Interpretation Comments Hct (test code = Hct) 42.6 42.0-54.0 [facility] AustinUryidbsLMCEHMNBUW3986-27-92 17:23:00 Test Item Value Reference Range Interpretation Comments MCV (test code = MCV) 91.4 80.0-94.0 [facility] AustinWrnynaiNOKRVTMFST3092-88-52 17:23:00 Test Item Value Reference Range Interpretation Comments MCH (test code = MCH) 30.9 pg 27.0-31.0 [facility] AustinQuenbjmERKOXRKISS1871-84-09 17:23:00 Test Item Value Reference Range Interpretation Comments MCHC (test code = MCHC) 33.8 32.0-36.0 [facility] AustinJgtdrodNNMHPYKCFT5652-13-82 17:23:00 Test Item Value Reference Range Interpretation Comments RDW (test code = RDW) 13.1 11.5-14.5 [facility] AustinYgtxgwkGWPQHGXWRR9620-65-20 17:23:00 Test Item Value Reference Range Interpretation Comments Platelet (test code = Platelet) 231 133-450 [facility] AustinSngguhjMHDMTGXWOC5838-96-81 17:23:00 Test Item Value Reference Range Interpretation Comments MPV (test code = MPV) 9.8 7.4-10.4 [facility] AustinXgjpqipSJMNFLJKFZ0203-91-88 17:23:00 Test Item Value Reference Range Interpretation Comments Segs (test code = Segs) 71.2 45.0-75.0 [facility] AustinEhflvykSBITSFFRZD3096-17-28 17:23:00 Test Item Value Reference Range Interpretation Comments Lymphocytes (test code = Lymphocytes) 15.6 20.0-40.0 [facility] AustinJpydvrwJNARODUNJE5177-76-68 17:23:00 Test Item Value Reference Range Interpretation Comments Monocytes (test code = Monocytes) 9.0 2.0-12.0 [place] 609592-06-16 17:23:00 Test Item Value Reference Range Interpretation Comments Eosinophils (test code = 3.5 See_Comment [A utomated message] The Eosinophils) system which ge nerated this result tra nsmitted reference range : <=4.0. The reference r tony was not used to int erpret this result as normal/abnormal . [place] 609592-06-16 17:23:00 Test Item Value Reference Range Interpretation Comments Basophils (test code = 0.7 See_Comment [Aut omated message] The Basophils) system which ge nerated this result tra nsmitted reference range : <=1.0. The reference r tony was not used to int erpret this result as normal/abnormal . [place] 609592-06-16 17:23:00 Test Item Value Reference Range Interpretation Comments Neutrophils # (test code = Neutrophils 6.8 1.5-8.1 #) [place] 609592-06-16 17:23:00 Test Item Value Reference Range Interpretation Comments Lymphocytes # (test code = Lymphocytes 1.5 1.0-5.5 #) [place] 609592-06-16 17:23:00 Test Item Value Reference Range Interpretation Comments Monocytes # (test code 0.9 See_Comment [Aut omated message] The = Monocytes #) system which generated this result tra nsmitted reference range : <=0.8. The reference r tony was not used to int erpret this result as normal/abnormal . [place] 609592-06-16 17:23:00 Test Item Value Reference Range Interpretation Comments Eosinophils # (test code 0.3 See_Comment [A utomated message] The = Eosinophils #) system whic h generated this result tra nsmitted reference range : <=0.5. The reference r tony was not used to int erpret this result as normal/abnormal . [place] 609592-06-16 17:23:00 Test Item Value Reference Range Interpretation Comments Basophils # (test code 0.1 See_Comment [Aut omated message] The = Basophils #) system which generated this result tra nsmitted reference range : <=0.2. The reference r tony was not used to int erpret this result as normal/abnormal . [place] 255432-06-16 17:23:00 Test Item Value Reference Range Interpretation Comments Glucose Lvl (test code = Glucose Lvl) 85 70-99 [place] 255432-06-16 17:23:00 Test Item Value Reference Range Interpretation Comments BUN (test code = BUN) 13 7-22 [place] 255432-06-16 17:23:00 Test Item Value Reference Range Interpretation Comments Creatinine Lvl (test code = Creatinine 1.21 0.50-1.40 Lvl) [place] 255432-06-16 17:23:00 Test Item Value Reference Range Interpretation Comments Sodium Lvl (test code = Sodium Lvl) 142 135-145 [place] 255432-06-16 17:23:00 Test Item Value Reference Range Interpretation Comments Potassium Lvl (test code = Potassium 3.8 3.5-5.1 Lvl) [place] 255432-06-16 17:23:00 Test Item Value Reference Range Interpretation Comments Chloride Lvl (test code = Chloride Lvl) 108 95-109 [place] 255432-06-16 17:23:00 Test Item Value Reference Range Interpretation Comments CO2 (test code = CO2) 29 24-32 [place] 255432-06-16 17:23:00 Test Item Value Reference Range Interpretation Comments Calcium Lvl (test code = Calcium Lvl) 8.6 8.5-10.5 [place] 255432-06-16 17:23:00 Test Item Value Reference Range Interpretation Comments Total Protein (test code = Total 7.3 6.4-8.4 Protein) [place] 255432-06-16 17:23:00 Test Item Value Reference Range Interpretation Comments Albumin Lvl (test code = Albumin Lvl) 3.7 3.5-5.0 [place] 255432-06-16 17:23:00 Test Item Value Reference Range Interpretation Comments ALT (test code = ALT) 41 See_Comment [Auto mated message] The system which ge nerated this result transmit ezequiel reference range : <=65. The reference range was not used to interpr et this result as grace l/abnormal. [place] 255432-06-16 17:23:00 Test Item Value Reference Range Interpretation Comments AST (test code = AST) 18 See_Comment [Auto mated message] The system which ge nerated this result transmit ezequiel reference range : <=37. The reference range was not used to interpr et this result as grace l/abnormal. [place] 255432-06-16 17:23:00 Test Item Value Reference Range Interpretation Comments Alk Phos (test code = Alk Phos) 63 39-136 [place] 255432-06-16 17:23:00 Test Item Value Reference Range Interpretation Comments Bili Total (test code = Bili Total) 0.4 0.2-1.3 [place] 255432-06-16 17:23:00 Test Item Value Reference Range Interpretation Comments AGAP (test code = AGAP) 8.8 10.0-20.0 [place] 255432-06-16 17:23:00 Test Item Value Reference Range Interpretation Comments B/C Ratio (test code = B/C Ratio) 11 1 6-25 [place] [address]-06-16 17:23:00 Test Item Value Reference Range Interpretation Comments Globulin (test code = Globulin) 3.6 2.7-4.2 [place] 255432-06-16 17:23:00 Test Item Value Reference Range Interpretation Comments A/G Ratio (test code = A/G Ratio) 1.0 1 0.7-1.6 [place] 255432-06-16 17:23:00 Test Item Value Reference Range Interpretation Comments eGFR (test code = eGFR) 78 [place] 255432-06-16 17:23:00 Test Item Value Reference Range Interpretation Comments Lactic Acid Lvl (test code = Lactic 1.3 0.5-2.2 Acid Lvl) [place] 255432-06-16 17:23:00 Test Item Value Reference Range Interpretation Comments Procalcitonin Lvl (test no gt See_Comment [Au tomated message] code = Procalcitonin Lvl) Th e system which generated this result transmitted ref erence range: <=0.10. The reference range was not used to interpr et this result as normal/abnormal . [place] 609592-06-16 17:23:00 Test Item Value Reference Range Interpretation Comments WBC (test code = WBC) 9.5 3.7-10.4 [facility] AustinDvadubeQLZQWNLAZL2130-22-34 17:23:00 Test Item Value Reference Range Interpretation Comments RBC (test code = RBC) 4.66 4.70-6.10 [facility] AustinOqgejqcCBJTBTPQEB5374-55-55 17:23:00 Test Item Value Reference Range Interpretation Comments Hgb (test code = Hgb) 14.4 14.0-18.0 [facility] AustinBmkjzqlSGLDADHSSN5054-48-05 17:23:00 Test Item Value Reference Range Interpretation Comments Hct (test code = Hct) 42.6 42.0-54.0 [facility] AustinRwzvmgkNQOMFWCFJS4933-88-13 17:23:00 Test Item Value Reference Range Interpretation Comments MCV (test code = MCV) 91.4 80.0-94.0 [facility] AustinDjnwnqxGAIMZJNXHJ6846-30-21 17:23:00 Test Item Value Reference Range Interpretation Comments MCH (test code = MCH) 30.9 pg 27.0-31.0 [facility] AustinYioeqqlPBVOEGAMIG5628-73-87 17:23:00 Test Item Value Reference Range Interpretation Comments MCHC (test code = MCHC) 33.8 32.0-36.0 [facility] AustinUmyrmmuPVVZMOWNQB8835-71-46 17:23:00 Test Item Value Reference Range Interpretation Comments RDW (test code = RDW) 13.1 11.5-14.5 [facility] AustinJfohldmJMOZQHCJQF1311-24-18 17:23:00 Test Item Value Reference Range Interpretation Comments Platelet (test code = Platelet) 231 133-450 [facility] AustinDsoehtjEXSWLDGLQM0251-66-09 17:23:00 Test Item Value Reference Range Interpretation Comments MPV (test code = MPV) 9.8 7.4-10.4 [facility] AustinEuobcysSOHEFWISVY4003-23-42 17:23:00 Test Item Value Reference Range Interpretation Comments Segs (test code = Segs) 71.2 45.0-75.0 [facility] AustinNkhiwjeTSPXNFPCDN8776-11-00 17:23:00 Test Item Value Reference Range Interpretation Comments Lymphocytes (test code = Lymphocytes) 15.6 20.0-40.0 [facility] AustinCoowuxlVPFNDAPNAF1038-05-94 17:23:00 Test Item Value Reference Range Interpretation Comments Monocytes (test code = Monocytes) 9.0 2.0-12.0 [place] 609592-06-16 17:23:00 Test Item Value Reference Range Interpretation Comments Eosinophils (test code = 3.5 See_Comment [A utomated message] The Eosinophils) system which ge nerated this result tra nsmitted reference range : <=4.0. The reference r tony was not used to int erpret this result as normal/abnormal . [place] 609592-06-16 17:23:00 Test Item Value Reference Range Interpretation Comments Basophils (test code = 0.7 See_Comment [Aut omated message] The Basophils) system which ge nerated this result tra nsmitted reference range : <=1.0. The reference r tony was not used to int erpret this result as normal/abnormal . [place] 609592-06-16 17:23:00 Test Item Value Reference Range Interpretation Comments Neutrophils # (test code = Neutrophils 6.8 1.5-8.1 #) [place] 609592-06-16 17:23:00 Test Item Value Reference Range Interpretation Comments Lymphocytes # (test code = Lymphocytes 1.5 1.0-5.5 #) [place] [address]-06-16 17:23:00 Test Item Value Reference Range Interpretation Comments Monocytes # (test code 0.9 See_Comment [Aut omated message] The = Monocytes #) system which generated this result tra nsmitted reference range : <=0.8. The reference r tony was not used to int erpret this result as normal/abnormal . [facility] AustinYgqdvkrZGJEGWRGZU8407-55-67 17:23:00 Test Item Value Reference Range Interpretation Comments Eosinophils # (test code 0.3 See_Comment [A utomated message] The = Eosinophils #) system whic h generated this result tra nsmitted reference range : <=0.5. The reference r tony was not used to int erpret this result as normal/abnormal . [place] 609592-06-16 17:23:00 Test Item Value Reference Range Interpretation Comments Basophils # (test code 0.1 See_Comment [Aut omated message] The = Basophils #) system which generated this result tra nsmitted reference range : <=0.2. The reference r tony was not used to int erpret this result as normal/abnormal . [facility]2022-06-16 17:23:00 Test Item Value Reference Range Interpretation Comments Glucose Lvl (test code = Glucose Lvl) 85 70-99 [place] 255432-06-16 17:23:00 Test Item Value Reference Range Interpretation Comments BUN (test code = BUN) 13 7-22 [place] [address]-06-16 17:23:00 Test Item Value Reference Range Interpretation Comments Creatinine Lvl (test code = Creatinine 1.21 0.50-1.40 Lvl) [place]5432-06-16 17:23:00 Test Item Value Reference Range Interpretation Comments Sodium Lvl (test code = Sodium Lvl) 142 135-145 [place]5432-06-16 17:23:00 Test Item Value Reference Range Interpretation Comments Potassium Lvl (test code = Potassium 3.8 3.5-5.1 Lvl) [place] 255432-06-16 17:23:00 Test Item Value Reference Range Interpretation Comments Chloride Lvl (test code = Chloride Lvl) 108 95-109 [place]5432-06-16 17:23:00 Test Item Value Reference Range Interpretation Comments CO2 (test code = CO2) 29 24-32 [place] 255432-06-16 17:23:00 Test Item Value Reference Range Interpretation Comments Calcium Lvl (test code = Calcium Lvl) 8.6 8.5-10.5 [place] 255432-06-16 17:23:00 Test Item Value Reference Range Interpretation Comments Total Protein (test code = Total 7.3 6.4-8.4 Protein) [place] 255432-06-16 17:23:00 Test Item Value Reference Range Interpretation Comments Albumin Lvl (test code = Albumin Lvl) 3.7 3.5-5.0 [place] 255432-06-16 17:23:00 Test Item Value Reference Range Interpretation Comments ALT (test code = ALT) 41 See_Comment [Auto mated message] The system which ge nerated this result transmit ezequiel reference range : <=65. The reference range was not used to interpr et this result as grace l/abnormal. [place] 255432-06-16 17:23:00 Test Item Value Reference Range Interpretation Comments AST (test code = AST) 18 See_Comment [Auto mated message] The system which ge nerated this result transmit ezequiel reference range : <=37. The reference range was not used to interpr et this result as grace l/abnormal. [place] 255432-06-16 17:23:00 Test Item Value Reference Range Interpretation Comments Alk Phos (test code = Alk Phos) 63 39-136 [place]5432-06-16 17:23:00 Test Item Value Reference Range Interpretation Comments Bili Total (test code = Bili Total) 0.4 0.2-1.3 [place] 255432-06-16 17:23:00 Test Item Value Reference Range Interpretation Comments AGAP (test code = AGAP) 8.8 10.0-20.0 [place] [address]-06-16 17:23:00 Test Item Value Reference Range Interpretation Comments B/C Ratio (test code = B/C Ratio) 11 1 6-25 [place] [address]-06-16 17:23:00 Test Item Value Reference Range Interpretation Comments Globulin (test code = Globulin) 3.6 2.7-4.2 [place] 255432-06-16 17:23:00 Test Item Value Reference Range Interpretation Comments A/G Ratio (test code = A/G Ratio) 1.0 1 0.7-1.6 [place] [address]-06-16 17:23:00 Test Item Value Reference Range Interpretation Comments eGFR (test code = eGFR) 78 [place] 255432-06-16 17:23:00 Test Item Value Reference Range Interpretation Comments Lactic Acid Lvl (test code = Lactic 1.3 0.5-2.2 Acid Lvl) [place] [address]-06-16 17:23:00 Test Item Value Reference Range Interpretation Comments Procalcitonin Lvl (test no gt See_Comment [Au tomated message] code = Procalcitonin Lvl) Th e system which generated this result transmitted ref erence range: <=0.10. The reference range was not used to interpr et this result as normal/abnormal . [place]9592-06-16 17:23:00 Test Item Value Reference Range Interpretation Comments WBC (test code = WBC) 9.5 3.7-10.4 [place]9592-06-16 17:23:00 Test Item Value Reference Range Interpretation Comments RBC (test code = RBC) 4.66 4.70-6.10 [place]9592-06-16 17:23:00 Test Item Value Reference Range Interpretation Comments Hgb (test code = Hgb) 14.4 14.0-18.0 [place] [address]-06-16 17:23:00 Test Item Value Reference Range Interpretation Comments Hct (test code = Hct) 42.6 42.0-54.0 [facility] AustinNvdgmzlEOLVAGWHDX7333-78-80 17:23:00 Test Item Value Reference Range Interpretation Comments MCV (test code = MCV) 91.4 80.0-94.0 [place]9592-06-16 17:23:00 Test Item Value Reference Range Interpretation Comments MCH (test code = MCH) 30.9 pg 27.0-31.0 [facility] AustinScdcrqiREMRNDPUFE0505-34-33 17:23:00 Test Item Value Reference Range Interpretation Comments MCHC (test code = MCHC) 33.8 32.0-36.0 [facility] AustinKfxtobwMAPWGOGWOB7603-84-69 17:23:00 Test Item Value Reference Range Interpretation Comments RDW (test code = RDW) 13.1 11.5-14.5 [facility] AustinTbtnheaTNZSTOIUVE8237-60-41 17:23:00 Test Item Value Reference Range Interpretation Comments Platelet (test code = Platelet) 231 133-450 [facility] AustinVcmmblqKWFLXAHKQK8516-12-27 17:23:00 Test Item Value Reference Range Interpretation Comments MPV (test code = MPV) 9.8 7.4-10.4 [facility] AustinOtkeodvUPMAWPCWPL8136-97-85 17:23:00 Test Item Value Reference Range Interpretation Comments Segs (test code = Segs) 71.2 45.0-75.0 [place]9592-06-16 17:23:00 Test Item Value Reference Range Interpretation Comments Lymphocytes (test code = Lymphocytes) 15.6 20.0-40.0 [place] [address]-06-16 17:23:00 Test Item Value Reference Range Interpretation Comments Monocytes (test code = Monocytes) 9.0 2.0-12.0 [facility] AustinGtlgauhHGFGRCWQOZ3848-52-29 17:23:00 Test Item Value Reference Range Interpretation Comments Eosinophils (test code = 3.5 See_Comment [A utomated message] The Eosinophils) system which ge nerated this result tra nsmitted reference range : <=4.0. The reference r tony was not used to int erpret this result as normal/abnormal . [facility] AustinSewusmiIRRNVOLNVC6732-23-77 17:23:00 Test Item Value Reference Range Interpretation Comments Basophils (test code = 0.7 See_Comment [Aut omated message] The Basophils) system which ge nerated this result tra nsmitted reference range : <=1.0. The reference r tony was not used to int erpret this result as normal/abnormal . [facility] AustinNergefkAAUJBQFDNO3162-51-26 17:23:00 Test Item Value Reference Range Interpretation Comments Neutrophils # (test code = Neutrophils 6.8 1.5-8.1 #) [facility] AustinAvcpgohGAEMUZNPMC9673-90-38 17:23:00 Test Item Value Reference Range Interpretation Comments Lymphocytes # (test code = Lymphocytes 1.5 1.0-5.5 #) [facility] AustinLzzhrvtUESAPKOQZZ8360-36-45 17:23:00 Test Item Value Reference Range Interpretation Comments Monocytes # (test code 0.9 See_Comment [Aut omated message] The = Monocytes #) system which generated this result tra nsmitted reference range : <=0.8. The reference r tony was not used to int erpret this result as normal/abnormal . [facility] AustinBezfzpdLFJMDPWRNE1050-38-14 17:23:00 Test Item Value Reference Range Interpretation Comments Eosinophils # (test code 0.3 See_Comment [A utomated message] The = Eosinophils #) system whic h generated this result tra nsmitted reference range : <=0.5. The reference r tony was not used to int erpret this result as normal/abnormal . [id number] 17:23:00 Test Item Value Reference Range Interpretation Comments Basophils # (test code 0.1 See_Comment [Aut omated message] The = Basophils #) system which generated this result tra nsmitted reference range : <=0.2. The reference r tony was not used to int erpret this result as normal/abnormal . [facility]2022-06-14 17:22:00 Test Item Value Reference Range Interpretation Comments UA Color (test code = Yellow *NA*(11/14/21 UA Color) 12:22 PM) [facility] AND [id number] 17:22:00 Test Item Value Reference Range Interpretation Comments UA Turbidity (test code = Clear (11/14/21 12:22 UA Turbidity) PM) [facility] AND [id number] 17:22:00 Test Item Value Reference Range Interpretation Comments UA Spec Grav (test code = UA Spec 1.021 1 Grav) [facility] AND [id number] 17:22:00 Test Item Value Reference Range Interpretation Comments UA pH (test code = UA pH) 6.0 1 5.0-8.0 [facility] AND [id number] 17:22:00 Test Item Value Reference Range Interpretation Comments UA Protein (test code = UA Negative mg/dL Protein) [facility] AND [id number] 17:22:00 Test Item Value Reference Range Interpretation Comments UA Glucose (test code = UA Negative mg/dL Glucose) [facility] AND [id number] 17:22:00 Test Item Value Reference Range Interpretation Comments UA Ketones (test code = UA Negative mg/dL Ketones) [facility] AND [id number] 17:22:00 Test Item Value Reference Range Interpretation Comments UA Bili (test code = Negative *NA*(11/14/21 UA Bili) 12:22 PM) [facility] AND [id number] 17:22:00 Test Item Value Reference Range Interpretation Comments UA Blood (test code = Negative (11/14/21 12:22 UA Blood) PM) [facility] AND [id number] 17:22:00 Test Item Value Reference Range Interpretation Comments UA Nitrite (test code Negative (11/14/21 12:22 = UA Nitrite) PM) [facility] AND [id number] 17:22:00 Test Item Value Reference Range Interpretation Comments UA Leuk Est (test Negative (11/14/21 12:22 code = UA Leuk Est) PM) [facility] AND [id number] 17:22:00 Test Item Value Reference Range Interpretation Comments UA WBC (test code = 1 See_Comment [Automa ezequiel message] The UA WBC) system which ge nerated this result transmit ezequiel reference range : <=5. The reference range was not used to interpr et this result as grace l/abnormal. [facility] [id number] 17:22:00 Test Item Value Reference Range Interpretation Comments UA RBC (test code = 1 See_Comment [Automa ezequiel message] The UA RBC) system which ge nerated this result transmit ezequiel reference range : <=2. The reference range was not used to interpr et this result as grace l/abnormal. [facility] [id number] 17:22:00 Test Item Value Reference Range Interpretation Comments UA Mucus (test code = UA Mucus) Few /LPF [facility] [id number] 17:22:00 Test Item Value Reference Range Interpretation Comments UA Sq Epi (test code = UA Sq Epi) None Seen [facility] [id number] 17:22:00 Test Item Value Reference Range Interpretation Comments UA Urobilinogen (test code = UA <=1.0 mg/dL 0.1-1.0 Urobilinogen) [facility] [id number] 17:22:00 Test Item Value Reference Range Interpretation Comments UA Color (test code = Yellow *NA*(11/14/21 UA Color) 12:22 PM) [facility] [id number] 17:22:00 Test Item Value Reference Range Interpretation Comments UA Turbidity (test code = Clear (11/14/21 12:22 UA Turbidity) PM) [facility] [id number] 17:22:00 Test Item Value Reference Range Interpretation Comments UA Spec Grav (test code = UA Spec 1.021 1 Grav) [facility] AND [id number] 17:22:00 Test Item Value Reference Range Interpretation Comments UA pH (test code = UA pH) 6.0 1 5.0-8.0 [facility] AND [id number] 17:22:00 Test Item Value Reference Range Interpretation Comments UA Protein (test code = UA Negative mg/dL Protein) [facility] [id number] 17:22:00 Test Item Value Reference Range Interpretation Comments UA Glucose (test code = UA Negative mg/dL Glucose) [facility] [id number] 17:22:00 Test Item Value Reference Range Interpretation Comments UA Ketones (test code = UA Negative mg/dL Ketones) [facility] [id number] 17:22:00 Test Item Value Reference Range Interpretation Comments UA Bili (test code = Negative *NA*(11/14/21 UA Bili) 12:22 PM) [facility] [id number] 17:22:00 Test Item Value Reference Range Interpretation Comments UA Blood (test code = Negative (11/14/21 12:22 UA Blood) PM) [facility] [id number] 17:22:00 Test Item Value Reference Range Interpretation Comments UA Nitrite (test code Negative (11/14/21 12:22 = UA Nitrite) PM) [facility] [id number] 17:22:00 Test Item Value Reference Range Interpretation Comments UA Leuk Est (test Negative (11/14/21 12:22 code = UA Leuk Est) PM) [facility] [id number] 17:22:00 Test Item Value Reference Range Interpretation Comments UA WBC (test code = 1 See_Comment [Automa ezequiel message] The UA WBC) system which ge nerated this result transmit ezequiel reference range : <=5. The reference range was not used to interpr et this result as grace l/abnormal. [facility] [id number] 17:22:00 Test Item Value Reference Range Interpretation Comments UA RBC (test code = 1 See_Comment [Automa ezequiel message] The UA RBC) system which ge nerated this result transmit ezequiel reference range : <=2. The reference range was not used to interpr et this result as grace l/abnormal. [facility] [id number] 17:22:00 Test Item Value Reference Range Interpretation Comments UA Mucus (test code = UA Mucus) Few /LPF [facility] [id number] 17:22:00 Test Item Value Reference Range Interpretation Comments UA Sq Epi (test code = UA Sq Epi) None [facility]en [facility] [id number] 17:22:00 Test Item Value Reference Range Interpretation Comments UA Urobilinogen (test code = UA <=1.0 mg/dL 0.1-1.0 Urobilinogen) [facility] [id number] 17:22:00 Test Item Value Reference Range Interpretation Comments UA Color (test code = Yellow *NA*(11/14/21 UA Color) 12:22 PM) [facility] AND [id number] 17:22:00 Test Item Value Reference Range Interpretation Comments UA Turbidity (test code = Clear (11/14/21 12:22 UA Turbidity) PM) [facility] AND [id number] 17:22:00 Test Item Value Reference Range Interpretation Comments UA Spec Grav (test code = UA Spec 1.021 1 Grav) [facility] AND [id number] 17:22:00 Test Item Value Reference Range Interpretation Comments UA pH (test code = UA pH) 6.0 1 5.0-8.0 [facility] AND [id number] 17:22:00 Test Item Value Reference Range Interpretation Comments UA Protein (test code = UA Negative mg/dL Protein) [facility] AND [id number] 17:22:00 Test Item Value Reference Range Interpretation Comments UA Glucose (test code = UA Negative mg/dL Glucose) [facility] AND [id number] 17:22:00 Test Item Value Reference Range Interpretation Comments UA Ketones (test code = UA Negative mg/dL Ketones) [facility] AND [id number] 17:22:00 Test Item Value Reference Range Interpretation Comments UA Bili (test code = Negative *NA*(11/14/21 UA Bili) 12:22 PM) [facility] AND [id number] 17:22:00 Test Item Value Reference Range Interpretation Comments UA Blood (test code = Negative (11/14/21 12:22 UA Blood) PM) [facility] AND [id number] 17:22:00 Test Item Value Reference Range Interpretation Comments UA Nitrite (test code Negative (11/14/21 12:22 = UA Nitrite) PM) [facility] AND [id number] 17:22:00 Test Item Value Reference Range Interpretation Comments UA Leuk Est (test Negative (11/14/21 12:22 code = UA Leuk Est) PM) [facility] AND [id number] 17:22:00 Test Item Value Reference Range Interpretation Comments UA WBC (test code = 1 See_Comment [Automa ezequiel message] The UA WBC) system which ge nerated this result transmit ezequiel reference range : <=5. The reference range was not used to interpr et this result as grace l/abnormal. [facility] [id number] 17:22:00 Test Item Value Reference Range Interpretation Comments UA RBC (test code = 1 See_Comment [Automa ezequiel message] The UA RBC) system which ge nerated this result transmit ezequiel reference range : <=2. The reference range was not used to interpr et this result as grace l/abnormal. [facility] [id number] 17:22:00 Test Item Value Reference Range Interpretation Comments UA Mucus (test code = UA Mucus) Few /LPF [facility] [id number] 17:22:00 Test Item Value Reference Range Interpretation Comments UA Sq Epi (test code = UA Sq Epi) None [facility]en [facility] [id number] 17:22:00 Test Item Value Reference Range Interpretation Comments UA Urobilinogen (test code = UA <=1.0 mg/dL 0.1-1.0 Urobilinogen) [facility] [id number] 17:22:00 Test Item Value Reference Range Interpretation Comments UA Color (test code = Yellow *NA*(11/14/21 UA Color) 12:22 PM) [facility] [id number] 17:22:00 Test Item Value Reference Range Interpretation Comments UA Turbidity (test code = Clear (11/14/21 12:22 UA Turbidity) PM) [facility] [id number] 17:22:00 Test Item Value Reference Range Interpretation Comments UA Spec Grav (test code = UA Spec 1.021 1 Grav) [facility] [id number] 17:22:00 Test Item Value Reference Range Interpretation Comments UA pH (test code = UA pH) 6.0 1 5.0-8.0 [facility] [id number] 17:22:00 Test Item Value Reference Range Interpretation Comments UA Protein (test code = UA Negative mg/dL Protein) [facility] [id number] 17:22:00 Test Item Value Reference Range Interpretation Comments UA Glucose (test code = UA Negative mg/dL Glucose) [facility] [id number] 17:22:00 Test Item Value Reference Range Interpretation Comments UA Ketones (test code = UA Negative mg/dL Ketones) [facility] [id number] 17:22:00 Test Item Value Reference Range Interpretation Comments UA Bili (test code = Negative *NA*(11/14/21 UA Bili) 12:22 PM) [facility] AND [id number] 17:22:00 Test Item Value Reference Range Interpretation Comments UA Blood (test code = Negative (11/14/21 12:22 UA Blood) PM) [facility] AND [id number] 17:22:00 Test Item Value Reference Range Interpretation Comments UA Nitrite (test code Negative (11/14/21 12:22 = UA Nitrite) PM) [facility] AND [id number] 17:22:00 Test Item Value Reference Range Interpretation Comments UA Leuk Est (test Negative (11/14/21 12:22 code = UA Leuk Est) PM) [facility] AND [id number] 17:22:00 Test Item Value Reference Range Interpretation Comments UA WBC (test code = 1 See_Comment [Automa ezequiel message] The UA WBC) system which ge nerated this result transmit ezequiel reference range : <=5. The reference range was not used to interpr et this result as grace l/abnormal. [facility] AND [id number] 17:22:00 Test Item Value Reference Range Interpretation Comments UA RBC (test code = 1 See_Comment [Automa ezequiel message] The UA RBC) system which ge nerated this result transmit ezequiel reference range : <=2. The reference range was not used to interpr et this result as grace l/abnormal. [facility] [id number] 17:22:00 Test Item Value Reference Range Interpretation Comments UA Mucus (test code = UA Mucus) Few /LPF [facility] AND [id number] 17:22:00 Test Item Value Reference Range Interpretation Comments UA Sq Epi (test code = UA Sq Epi) None Seen [facility] AND [id number] 17:22:00 Test Item Value Reference Range Interpretation Comments UA Urobilinogen (test code = UA <=1.0 mg/dL 0.1-1.0 Urobilinogen) [facility] AND [id number] 17:22:00 Test Item Value Reference Range Interpretation Comments UA Color (test code = Yellow *NA*(11/14/21 UA Color) 12:22 PM) [facility] AND [id number] 17:22:00 Test Item Value Reference Range Interpretation Comments UA Turbidity (test code = Clear (11/14/21 12:22 UA Turbidity) PM) [facility] AND [id number] 17:22:00 Test Item Value Reference Range Interpretation Comments UA Spec Grav (test code = UA Spec 1.021 1 Grav) [facility] AND [id number] 17:22:00 Test Item Value Reference Range Interpretation Comments UA pH (test code = UA pH) 6.0 1 5.0-8.0 [facility] AND [id number] 17:22:00 Test Item Value Reference Range Interpretation Comments UA Protein (test code = UA Negative mg/dL Protein) [facility] AND [id number] 17:22:00 Test Item Value Reference Range Interpretation Comments UA Glucose (test code = UA Negative mg/dL Glucose) [facility] AND [id number] 17:22:00 Test Item Value Reference Range Interpretation Comments UA Ketones (test code = UA Negative mg/dL Ketones) [facility] AND [id number] 17:22:00 Test Item Value Reference Range Interpretation Comments UA Bili (test code = Negative *NA*(11/14/21 UA Bili) 12:22 PM) [facility] AND [id number] 17:22:00 Test Item Value Reference Range Interpretation Comments UA Blood (test code = Negative (11/14/21 12:22 UA Blood) PM) [facility] AND [id number] 17:22:00 Test Item Value Reference Range Interpretation Comments UA Nitrite (test code Negative (11/14/21 12:22 = UA Nitrite) PM) [facility] AND [id number] 17:22:00 Test Item Value Reference Range Interpretation Comments UA Leuk Est (test Negative (11/14/21 12:22 code = UA Leuk Est) PM) [facility] [id number] 17:22:00 Test Item Value Reference Range Interpretation Comments UA WBC (test code = 1 See_Comment [Automa ezequiel message] The UA WBC) system which ge nerated this result transmit ezequiel reference range : <=5. The reference range was not used to interpr et this result as grace l/abnormal. [facility] [id number] 17:22:00 Test Item Value Reference Range Interpretation Comments UA RBC (test code = 1 See_Comment [Automa ezequiel message] The UA RBC) system which ge nerated this result transmit ezequiel reference range : <=2. The reference range was not used to interpr et this result as grace l/abnormal. [facility] [id number] 17:22:00 Test Item Value Reference Range Interpretation Comments UA Mucus (test code = UA Mucus) Few /LPF [facility] [id number] 17:22:00 Test Item Value Reference Range Interpretation Comments UA Sq Epi (test code = UA Sq Epi) None [facility]en [facility] [id number] 17:22:00 Test Item Value Reference Range Interpretation Comments UA Urobilinogen (test code = UA <=1.0 mg/dL 0.1-1.0 Urobilinogen) [facility] [id number] 17:22:00 Test Item Value Reference Range Interpretation Comments UA Color (test code = Yellow *NA*(11/14/21 UA Color) 12:22 PM) [facility] [id number] 17:22:00 Test Item Value Reference Range Interpretation Comments UA Turbidity (test code = Clear (11/14/21 12:22 UA Turbidity) PM) [facility] [id number] 17:22:00 Test Item Value Reference Range Interpretation Comments UA Spec Grav (test code = UA Spec 1.021 1 Grav) [facility] [id number] 17:22:00 Test Item Value Reference Range Interpretation Comments UA pH (test code = UA pH) 6.0 1 5.0-8.0 [facility] [id number] 17:22:00 Test Item Value Reference Range Interpretation Comments UA Protein (test code = UA Negative mg/dL Protein) [facility] [id number] 17:22:00 Test Item Value Reference Range Interpretation Comments UA Glucose (test code = UA Negative mg/dL Glucose) [facility] [id number] 17:22:00 Test Item Value Reference Range Interpretation Comments UA Ketones (test code = UA Negative mg/dL Ketones) [facility] [id number] 17:22:00 Test Item Value Reference Range Interpretation Comments UA Bili (test code = Negative *NA*(11/14/21 UA Bili) 12:22 PM) [facility] [id number] 17:22:00 Test Item Value Reference Range Interpretation Comments UA Blood (test code = Negative (11/14/21 12:22 UA Blood) PM) [facility] [id number] 17:22:00 Test Item Value Reference Range Interpretation Comments UA Nitrite (test code Negative (11/14/21 12:22 = UA Nitrite) PM) [facility] [id number] 17:22:00 Test Item Value Reference Range Interpretation Comments UA Leuk Est (test Negative (11/14/21 12:22 code = UA Leuk Est) PM) [facility] [id number] 17:22:00 Test Item Value Reference Range Interpretation Comments UA WBC (test code = 1 See_Comment [Automa ezequiel message] The UA WBC) system which ge nerated this result transmit ezequiel reference range : <=5. The reference range was not used to interpr et this result as grace l/abnormal. [facility] [id number] 17:22:00 Test Item Value Reference Range Interpretation Comments UA RBC (test code = 1 See_Comment [Automa ezequiel message] The UA RBC) system which ge nerated this result transmit ezequiel reference range : <=2. The reference range was not used to interpr et this result as grace l/abnormal. [facility] [id number] 17:22:00 Test Item Value Reference Range Interpretation Comments UA Mucus (test code = UA Mucus) Few /LPF [facility] [id number] 17:22:00 Test Item Value Reference Range Interpretation Comments UA Sq Epi (test code = UA Sq Epi) None Seen [facility] AND [id number] 17:22:00 Test Item Value Reference Range Interpretation Comments UA Urobilinogen (test code = UA <=1.0 mg/dL 0.1-1.0 Urobilinogen) [facility]2022-06-14 17:19:00 Test Item Value Reference Range Interpretation Comments Glucose Lvl (test code = Glucose Lvl) 119 70-99 [place] 255432-06-14 17:19:00 Test Item Value Reference Range Interpretation Comments BUN (test code = BUN) 15 7-22 [place] 255432-06-14 17:19:00 Test Item Value Reference Range Interpretation Comments Creatinine Lvl (test code = Creatinine 1.31 0.50-1.40 Lvl) [facility]2022-06-14 17:19:00 Test Item Value Reference Range Interpretation Comments Sodium Lvl (test code = Sodium Lvl) 138 135-145 [facility]2022-06-14 17:19:00 Test Item Value Reference Range Interpretation Comments Potassium Lvl (test code = Potassium 3.6 3.5-5.1 Lvl) [place] 255432-06-14 17:19:00 Test Item Value Reference Range Interpretation Comments Chloride Lvl (test code = Chloride Lvl) 105 95-109 [facility]2022-06-14 17:19:00 Test Item Value Reference Range Interpretation Comments CO2 (test code = CO2) 27 24-32 [facility]2022-06-14 17:19:00 Test Item Value Reference Range Interpretation Comments Calcium Lvl (test code = Calcium Lvl) 8.9 8.5-10.5 [facility]2022-06-14 17:19:00 Test Item Value Reference Range Interpretation Comments Total Protein (test code = Total 7.7 6.4-8.4 Protein) [place] 255432-06-14 17:19:00 Test Item Value Reference Range Interpretation Comments Albumin Lvl (test code = Albumin Lvl) 3.9 3.5-5.0 [place] 255432-06-14 17:19:00 Test Item Value Reference Range Interpretation Comments ALT (test code = ALT) 40 See_Comment [Auto mated message] The system which ge nerated this result transmit ezequiel reference range : <=65. The reference range was not used to interpr et this result as grace l/abnormal. [place] 255432-06-14 17:19:00 Test Item Value Reference Range Interpretation Comments AST (test code = AST) 19 See_Comment [Auto mated message] The system which ge nerated this result transmit ezequiel reference range : <=37. The reference range was not used to interpr et this result as grace l/abnormal. [place] 255432-06-14 17:19:00 Test Item Value Reference Range Interpretation Comments Alk Phos (test code = Alk Phos) 68 39-136 [place] [address]-06-14 17:19:00 Test Item Value Reference Range Interpretation Comments Bili Total (test code = Bili Total) 0.6 0.2-1.3 [place] [address]-06-14 17:19:00 Test Item Value Reference Range Interpretation Comments AGAP (test code = AGAP) 9.6 10.0-20.0 [place] 255432-06-14 17:19:00 Test Item Value Reference Range Interpretation Comments B/C Ratio (test code = B/C Ratio) 11 1 6-25 [place] [address]-06-14 17:19:00 Test Item Value Reference Range Interpretation Comments Globulin (test code = Globulin) 3.8 2.7-4.2 [place] 255432-06-14 17:19:00 Test Item Value Reference Range Interpretation Comments A/G Ratio (test code = A/G Ratio) 1.0 1 0.7-1.6 [place] 255432-06-14 17:19:00 Test Item Value Reference Range Interpretation Comments eGFR (test code = eGFR) 71 [place] 255432-06-14 17:19:00 Test Item Value Reference Range Interpretation Comments Lipase Lvl (test code = Lipase Lvl) 78 73-393 [place] 609592-06-14 17:19:00 Test Item Value Reference Range Interpretation Comments WBC (test code = WBC) 11.3 3.7-10.4 [place] 609592-06-14 17:19:00 Test Item Value Reference Range Interpretation Comments RBC (test code = RBC) 4.97 4.70-6.10 [id number] 17:19:00 Test Item Value Reference Range Interpretation Comments Hgb (test code = Hgb) 15.6 14.0-18.0 [facility] AustinQhkfwmpSTRVTSZFLB8245-30-00 17:19:00 Test Item Value Reference Range Interpretation Comments Hct (test code = Hct) 45.2 42.0-54.0 [facility] AustinAhfbwleQPUSHEXJCF4011-11-72 17:19:00 Test Item Value Reference Range Interpretation Comments MCV (test code = MCV) 90.9 80.0-94.0 [facility] AustinKqrlfusWTYJFODNUV9465-06-66 17:19:00 Test Item Value Reference Range Interpretation Comments MCH (test code = MCH) 31.3 pg 27.0-31.0 [facility] AustinJtbnlwcQMNMYAUSCI3089-42-05 17:19:00 Test Item Value Reference Range Interpretation Comments MCHC (test code = MCHC) 34.4 32.0-36.0 [facility] AustinTjaiclaFHWYNQSVJF7176-62-23 17:19:00 Test Item Value Reference Range Interpretation Comments RDW (test code = RDW) 12.7 11.5-14.5 [facility] AustinQdfjspjEPURUJEMRX0792-19-60 17:19:00 Test Item Value Reference Range Interpretation Comments Platelet (test code = Platelet) 209 133-450 [facility] AustinFxwuvttASOZKOGRKC8956-80-14 17:19:00 Test Item Value Reference Range Interpretation Comments MPV (test code = MPV) 10.2 7.4-10.4 [facility] AustinLnctjkdYIQJDXQSFG1380-57-06 17:19:00 Test Item Value Reference Range Interpretation Comments Segs (test code = Segs) 59.2 45.0-75.0 [facility] AustinVrzbgkyINYTFEVBNE9947-39-89 17:19:00 Test Item Value Reference Range Interpretation Comments Lymphocytes (test code = Lymphocytes) 21.5 20.0-40.0 [facility] AustinTgmjdznQBABSDDFQT7049-10-84 17:19:00 Test Item Value Reference Range Interpretation Comments Monocytes (test code = Monocytes) 11.7 2.0-12.0 [place] 609592-06-14 17:19:00 Test Item Value Reference Range Interpretation Comments Eosinophils (test code = 6.5 See_Comment [A utomated message] The Eosinophils) system which ge nerated this result tra nsmitted reference range : <=4.0. The reference r tony was not used to int erpret this result as normal/abnormal . [facility] AustinDbpzsqpVXPUEHGTON3591-22-83 17:19:00 Test Item Value Reference Range Interpretation Comments Basophils (test code = 1.1 See_Comment [Aut omated message] The Basophils) system which ge nerated this result tra nsmitted reference range : <=1.0. The reference r tony was not used to int erpret this result as normal/abnormal . [facility] AustinFmenxcgVYALPBNNEJ4267-27-24 17:19:00 Test Item Value Reference Range Interpretation Comments Neutrophils # (test code = Neutrophils 6.7 1.5-8.1 #) [facility] AustinBiuthvlLMVCZMLVEX5434-82-86 17:19:00 Test Item Value Reference Range Interpretation Comments Lymphocytes # (test code = Lymphocytes 2.4 1.0-5.5 #) [facility] AustinEasjesvGJBFMZTQSX6765-90-89 17:19:00 Test Item Value Reference Range Interpretation Comments Monocytes # (test code 1.3 See_Comment [Aut omated message] The = Monocytes #) system which generated this result tra nsmitted reference range : <=0.8. The reference r tony was not used to int erpret this result as normal/abnormal . [facility] AustinRuwycqwMJDGSEQIKT4375-61-59 17:19:00 Test Item Value Reference Range Interpretation Comments Eosinophils # (test code 0.7 See_Comment [A utomated message] The = Eosinophils #) system whic h generated this result tra nsmitted reference range : <=0.5. The reference r tony was not used to int erpret this result as normal/abnormal . [facility] AustinQmhpjbiQNGCNAMIYM6687-88-61 17:19:00 Test Item Value Reference Range Interpretation Comments Basophils # (test code 0.1 See_Comment [Aut omated message] The = Basophils #) system which generated this result tra nsmitted reference range : <=0.2. The reference r tony was not used to int erpret this result as normal/abnormal . [place] 18816022-06-14 17:19:00 Test Item Value Reference Range Interpretation Comments Grp A Strep Scr (test Negative (11/14/21 12:19 code = Grp A Strep PM) Scr) [facility]2022-06-14 17:19:00 Test Item Value Reference Range Interpretation Comments Glucose Lvl (test code = Glucose Lvl) 119 70-99 [place] 255432-06-14 17:19:00 Test Item Value Reference Range Interpretation Comments BUN (test code = BUN) 15 7-22 [place] 255432-06-14 17:19:00 Test Item Value Reference Range Interpretation Comments Creatinine Lvl (test code = Creatinine 1.31 0.50-1.40 Lvl) [place] 255432-06-14 17:19:00 Test Item Value Reference Range Interpretation Comments Sodium Lvl (test code = Sodium Lvl) 138 135-145 [place] 255432-06-14 17:19:00 Test Item Value Reference Range Interpretation Comments Potassium Lvl (test code = Potassium 3.6 3.5-5.1 Lvl) [place] 255432-06-14 17:19:00 Test Item Value Reference Range Interpretation Comments Chloride Lvl (test code = Chloride Lvl) 105 95-109 [place] 255432-06-14 17:19:00 Test Item Value Reference Range Interpretation Comments CO2 (test code = CO2) 27 24-32 [place] 255432-06-14 17:19:00 Test Item Value Reference Range Interpretation Comments Calcium Lvl (test code = Calcium Lvl) 8.9 8.5-10.5 [place] 255432-06-14 17:19:00 Test Item Value Reference Range Interpretation Comments Total Protein (test code = Total 7.7 6.4-8.4 Protein) [place] 255432-06-14 17:19:00 Test Item Value Reference Range Interpretation Comments Albumin Lvl (test code = Albumin Lvl) 3.9 3.5-5.0 [place] 255432-06-14 17:19:00 Test Item Value Reference Range Interpretation Comments ALT (test code = ALT) 40 See_Comment [Auto mated message] The system which ge nerated this result transmit ezequiel reference range : <=65. The reference range was not used to interpr et this result as grace l/abnormal. [place] 255432-06-14 17:19:00 Test Item Value Reference Range Interpretation Comments AST (test code = AST) 19 See_Comment [Auto mated message] The system which ge nerated this result transmit ezequiel reference range : <=37. The reference range was not used to interpr et this result as grace l/abnormal. [place] 255432-06-14 17:19:00 Test Item Value Reference Range Interpretation Comments Alk Phos (test code = Alk Phos) 68 39-136 [place] 255432-06-14 17:19:00 Test Item Value Reference Range Interpretation Comments Bili Total (test code = Bili Total) 0.6 0.2-1.3 [place] 255432-06-14 17:19:00 Test Item Value Reference Range Interpretation Comments AGAP (test code = AGAP) 9.6 10.0-20.0 [place] 255432-06-14 17:19:00 Test Item Value Reference Range Interpretation Comments B/C Ratio (test code = B/C Ratio) 11 1 6-25 [place] [address]-06-14 17:19:00 Test Item Value Reference Range Interpretation Comments Globulin (test code = Globulin) 3.8 2.7-4.2 [place] 255432-06-14 17:19:00 Test Item Value Reference Range Interpretation Comments A/G Ratio (test code = A/G Ratio) 1.0 1 0.7-1.6 [place] 255432-06-14 17:19:00 Test Item Value Reference Range Interpretation Comments eGFR (test code = eGFR) 71 [place] 255432-06-14 17:19:00 Test Item Value Reference Range Interpretation Comments Lipase Lvl (test code = Lipase Lvl) 78 73-393 [place] 609592-06-14 17:19:00 Test Item Value Reference Range Interpretation Comments WBC (test code = WBC) 11.3 3.7-10.4 [place] [address]-06-14 17:19:00 Test Item Value Reference Range Interpretation Comments RBC (test code = RBC) 4.97 4.70-6.10 [place] [address]-06-14 17:19:00 Test Item Value Reference Range Interpretation Comments Hgb (test code = Hgb) 15.6 14.0-18.0 [place] [address]-06-14 17:19:00 Test Item Value Reference Range Interpretation Comments Hct (test code = Hct) 45.2 42.0-54.0 [place] 609592-06-14 17:19:00 Test Item Value Reference Range Interpretation Comments MCV (test code = MCV) 90.9 80.0-94.0 [place] 609592-06-14 17:19:00 Test Item Value Reference Range Interpretation Comments MCH (test code = MCH) 31.3 pg 27.0-31.0 [place] 609592-06-14 17:19:00 Test Item Value Reference Range Interpretation Comments MCHC (test code = MCHC) 34.4 32.0-36.0 [place] 609592-06-14 17:19:00 Test Item Value Reference Range Interpretation Comments RDW (test code = RDW) 12.7 11.5-14.5 [place] 609592-06-14 17:19:00 Test Item Value Reference Range Interpretation Comments Platelet (test code = Platelet) 209 133-450 [facility] AustinTuohklkGNLFKEERFX5819-97-83 17:19:00 Test Item Value Reference Range Interpretation Comments MPV (test code = MPV) 10.2 7.4-10.4 [facility] AustinZzxjjaxWINMPLZAPD8967-20-86 17:19:00 Test Item Value Reference Range Interpretation Comments Segs (test code = Segs) 59.2 45.0-75.0 [facility] AustinHibipveTWSWNSYEBC7563-66-34 17:19:00 Test Item Value Reference Range Interpretation Comments Lymphocytes (test code = Lymphocytes) 21.5 20.0-40.0 [place] 609592-06-14 17:19:00 Test Item Value Reference Range Interpretation Comments Monocytes (test code = Monocytes) 11.7 2.0-12.0 [place] 609592-06-14 17:19:00 Test Item Value Reference Range Interpretation Comments Eosinophils (test code = 6.5 See_Comment [A utomated message] The Eosinophils) system which ge nerated this result tra nsmitted reference range : <=4.0. The reference r tony was not used to int erpret this result as normal/abnormal . [facility] AustinPkglnjpXOBJCXYWTP2332-47-67 17:19:00 Test Item Value Reference Range Interpretation Comments Basophils (test code = 1.1 See_Comment [Aut omated message] The Basophils) system which ge nerated this result tra nsmitted reference range : <=1.0. The reference r tony was not used to int erpret this result as normal/abnormal . [facility] AustinMfljsusBKNOQOKFTN7753-31-13 17:19:00 Test Item Value Reference Range Interpretation Comments Neutrophils # (test code = Neutrophils 6.7 1.5-8.1 #) [facility] AustinQaimbswGRBRSDWLII2755-01-05 17:19:00 Test Item Value Reference Range Interpretation Comments Lymphocytes # (test code = Lymphocytes 2.4 1.0-5.5 #) [facility] AustinXcoqssyJKSHGLPZRW6438-69-01 17:19:00 Test Item Value Reference Range Interpretation Comments Monocytes # (test code 1.3 See_Comment [Aut omated message] The = Monocytes #) system which generated this result tra nsmitted reference range : <=0.8. The reference r tony was not used to int erpret this result as normal/abnormal . [facility] AustinGfbsxncQMZMZJWTCG5896-09-16 17:19:00 Test Item Value Reference Range Interpretation Comments Eosinophils # (test code 0.7 See_Comment [A utomated message] The = Eosinophils #) system whic h generated this result tra nsmitted reference range : <=0.5. The reference r tony was not used to int erpret this result as normal/abnormal . [facility] AustinKvvpmzjGCUNKVBRNV2707-77-22 17:19:00 Test Item Value Reference Range Interpretation Comments Basophils # (test code 0.1 See_Comment [Aut omated message] The = Basophils #) system which generated this result tra nsmitted reference range : <=0.2. The reference r tony was not used to int erpret this result as normal/abnormal . [place] 18816022-06-14 17:19:00 Test Item Value Reference Range Interpretation Comments Grp A Strep Scr (test Negative (11/14/21 12:19 code = Grp A Strep PM) Scr) [place] 255432-06-14 17:19:00 Test Item Value Reference Range Interpretation Comments Glucose Lvl (test code = Glucose Lvl) 119 70-99 [place] 255432-06-14 17:19:00 Test Item Value Reference Range Interpretation Comments BUN (test code = BUN) 15 7-22 [place] 255432-06-14 17:19:00 Test Item Value Reference Range Interpretation Comments Creatinine Lvl (test code = Creatinine 1.31 0.50-1.40 Lvl) [facility]2022-06-14 17:19:00 Test Item Value Reference Range Interpretation Comments Sodium Lvl (test code = Sodium Lvl) 138 135-145 [facility]2022-06-14 17:19:00 Test Item Value Reference Range Interpretation Comments Potassium Lvl (test code = Potassium 3.6 3.5-5.1 Lvl) [facility]2022-06-14 17:19:00 Test Item Value Reference Range Interpretation Comments Chloride Lvl (test code = Chloride Lvl) 105 95-109 [place] 255432-06-14 17:19:00 Test Item Value Reference Range Interpretation Comments CO2 (test code = CO2) 27 24-32 [facility]2022-06-14 17:19:00 Test Item Value Reference Range Interpretation Comments Glucose Lvl (test code = Glucose Lvl) 119 70-99 [facility]2022-06-14 17:19:00 Test Item Value Reference Range Interpretation Comments BUN (test code = BUN) 15 - [facility]2022-06-14 17:19:00 Test Item Value Reference Range Interpretation Comments Calcium Lvl (test code = Calcium Lvl) 8.9 8.5-10.5 [facility]2022-06-14 17:19:00 Test Item Value Reference Range Interpretation Comments Creatinine Lvl (test code = Creatinine 1.31 0.50-1.40 Lvl) [facility]2022-06-14 17:19:00 Test Item Value Reference Range Interpretation Comments Sodium Lvl (test code = Sodium Lvl) 138 135-145 [facility]2022-06-14 17:19:00 Test Item Value Reference Range Interpretation Comments Potassium Lvl (test code = Potassium 3.6 3.5-5.1 Lvl) [facility]2022-06-14 17:19:00 Test Item Value Reference Range Interpretation Comments Chloride Lvl (test code = Chloride Lvl) 105 95-109 [place] 255432-06-14 17:19:00 Test Item Value Reference Range Interpretation Comments CO2 (test code = CO2) 27 24-32 [place] 255432-06-14 17:19:00 Test Item Value Reference Range Interpretation Comments Calcium Lvl (test code = Calcium Lvl) 8.9 8.5-10.5 [place] 255432-06-14 17:19:00 Test Item Value Reference Range Interpretation Comments Total Protein (test code = Total 7.7 6.4-8.4 Protein) [place] [address]-06-14 17:19:00 Test Item Value Reference Range Interpretation Comments Albumin Lvl (test code = Albumin Lvl) 3.9 3.5-5.0 [place] 255432-06-14 17:19:00 Test Item Value Reference Range Interpretation Comments ALT (test code = ALT) 40 See_Comment [Auto mated message] The system which ge nerated this result transmit ezequiel reference range : <=65. The reference range was not used to interpr et this result as grace l/abnormal. [place] 255432-06-14 17:19:00 Test Item Value Reference Range Interpretation Comments AST (test code = AST) 19 See_Comment [Auto mated message] The system which ge nerated this result transmit ezequiel reference range : <=37. The reference range was not used to interpr et this result as grace l/abnormal. [place] 255432-06-14 17:19:00 Test Item Value Reference Range Interpretation Comments Total Protein (test code = Total 7.7 6.4-8.4 Protein) [place] 255432-06-14 17:19:00 Test Item Value Reference Range Interpretation Comments Alk Phos (test code = Alk Phos) 68 39-136 [place] 255432-06-14 17:19:00 Test Item Value Reference Range Interpretation Comments Bili Total (test code = Bili Total) 0.6 0.2-1.3 [place] [address]-06-14 17:19:00 Test Item Value Reference Range Interpretation Comments AGAP (test code = AGAP) 9.6 10.0-20.0 [place] [address]-06-14 17:19:00 Test Item Value Reference Range Interpretation Comments B/C Ratio (test code = B/C Ratio) 11 1 6-[address]06-14 17:19:00 Test Item Value Reference Range Interpretation Comments Globulin (test code = Globulin) 3.8 2.7-4.2 [place] 255432-06-14 17:19:00 Test Item Value Reference Range Interpretation Comments A/G Ratio (test code = A/G Ratio) 1.0 1 0.7-1.6 [place] 255432-06-14 17:19:00 Test Item Value Reference Range Interpretation Comments eGFR (test code = eGFR) 71 [facility]2022-06-14 17:19:00 Test Item Value Reference Range Interpretation Comments Lipase Lvl (test code = Lipase Lvl) 78 73-393 [facility] AustinWtuyetlZGKJNKRXCV9625-53-99 17:19:00 Test Item Value Reference Range Interpretation Comments WBC (test code = WBC) 11.3 3.7-10.4 [place] 609592-06-14 17:19:00 Test Item Value Reference Range Interpretation Comments RBC (test code = RBC) 4.97 4.70-6.10 [facility]2022-06-14 17:19:00 Test Item Value Reference Range Interpretation Comments Albumin Lvl (test code = Albumin Lvl) 3.9 3.5-5.0 [facility] AustinNkucfyzAUWYSHAAJH4906-33-24 17:19:00 Test Item Value Reference Range Interpretation Comments Hgb (test code = Hgb) 15.6 14.0-18.0 [facility] AustinFjmtcfnWBCHFYWGUP2623-99-07 17:19:00 Test Item Value Reference Range Interpretation Comments Hct (test code = Hct) 45.2 42.0-54.0 [place] 609592-06-14 17:19:00 Test Item Value Reference Range Interpretation Comments MCV (test code = MCV) 90.9 80.0-94.0 [place] [address]-06-14 17:19:00 Test Item Value Reference Range Interpretation Comments MCH (test code = MCH) 31.3 pg 27.0-31.0 [place] 609592-06-14 17:19:00 Test Item Value Reference Range Interpretation Comments MCHC (test code = MCHC) 34.4 32.0-36.0 [place] 609592-06-14 17:19:00 Test Item Value Reference Range Interpretation Comments RDW (test code = RDW) 12.7 11.5-14.5 [facility] AustinNsebjuxYBLHZDTWQX5838-55-81 17:19:00 Test Item Value Reference Range Interpretation Comments Platelet (test code = Platelet) 209 133-450 [facility] AustinAolzmncOYVMLMBIVI9422-56-10 17:19:00 Test Item Value Reference Range Interpretation Comments MPV (test code = MPV) 10.2 7.4-10.4 [facility] AustinFsrqcwwNLQZAQQKQP0947-75-83 17:19:00 Test Item Value Reference Range Interpretation Comments Segs (test code = Segs) 59.2 45.0-75.0 [facility] AustinZvbwyajSSYXLUAUSU2245-86-30 17:19:00 Test Item Value Reference Range Interpretation Comments Lymphocytes (test code = Lymphocytes) 21.5 20.0-40.0 [facility]2022-06-14 17:19:00 Test Item Value Reference Range Interpretation Comments ALT (test code = ALT) 40 See_Comment [Auto mated message] The system which ge nerated this result transmit ezequiel reference range : <=65. The reference range was not used to interpr et this result as grace l/abnormal. [facility] AustinCmawvkqDADGKTSYTA9482-60-53 17:19:00 Test Item Value Reference Range Interpretation Comments Monocytes (test code = Monocytes) 11.7 2.0-12.0 [facility] AustinArawbssTMFAEHZLOM3108-23-91 17:19:00 Test Item Value Reference Range Interpretation Comments Eosinophils (test code = 6.5 See_Comment [A utomated message] The Eosinophils) system which ge nerated this result tra nsmitted reference range : <=4.0. The reference r tony was not used to int erpret this result as normal/abnormal . [facility] AustinUxtedmvTZJGTLXYMK2924-08-26 17:19:00 Test Item Value Reference Range Interpretation Comments Basophils (test code = 1.1 See_Comment [Aut omated message] The Basophils) system which ge nerated this result tra nsmitted reference range : <=1.0. The reference r tony was not used to int erpret this result as normal/abnormal . [facility] AustinNvzvutqDAZHPGOAWO0297-09-95 17:19:00 Test Item Value Reference Range Interpretation Comments Neutrophils # (test code = Neutrophils 6.7 1.5-8.1 #) [place] 609592-06-14 17:19:00 Test Item Value Reference Range Interpretation Comments Lymphocytes # (test code = Lymphocytes 2.4 1.0-5.5 #) [place] 609592-06-14 17:19:00 Test Item Value Reference Range Interpretation Comments Monocytes # (test code 1.3 See_Comment [Aut omated message] The = Monocytes #) system which generated this result tra nsmitted reference range : <=0.8. The reference r tony was not used to int erpret this result as normal/abnormal . [facility] AustinNuyqkbpSWVPZIGAFR5801-92-59 17:19:00 Test Item Value Reference Range Interpretation Comments Eosinophils # (test code 0.7 See_Comment [A utomated message] The = Eosinophils #) system whic h generated this result tra nsmitted reference range : <=0.5. The reference r tony was not used to int erpret this result as normal/abnormal . [facility] AustinWflonqoDDSXVGQVLO7090-05-86 17:19:00 Test Item Value Reference Range Interpretation Comments Basophils # (test code 0.1 See_Comment [Aut omated message] The = Basophils #) system which generated this result tra nsmitted reference range : <=0.2. The reference r tony was not used to int erpret this result as normal/abnormal . [place] 18816022-06-14 17:19:00 Test Item Value Reference Range Interpretation Comments Grp A Strep Scr (test Negative (11/14/21 12:19 code = Grp A Strep PM) Scr) [facility]2022-06-14 17:19:00 Test Item Value Reference Range Interpretation Comments AST (test code = AST) 19 See_Comment [Auto mated message] The system which ge nerated this result transmit ezequiel reference range : <=37. The reference range was not used to interpr et this result as grace l/abnormal. [facility]2022-06-14 17:19:00 Test Item Value Reference Range Interpretation Comments Alk Phos (test code = Alk Phos) 68 39-136 [facility]2022-06-14 17:19:00 Test Item Value Reference Range Interpretation Comments Bili Total (test code = Bili Total) 0.6 0.2-1.3 [place] [address]-06-14 17:19:00 Test Item Value Reference Range Interpretation Comments AGAP (test code = AGAP) 9.6 10.0-20.0 [place] [address]-06-14 17:19:00 Test Item Value Reference Range Interpretation Comments B/C Ratio (test code = B/C Ratio) 11 1 6-[address]06-14 17:19:00 Test Item Value Reference Range Interpretation Comments Globulin (test code = Globulin) 3.8 2.7-4.2 [place] [address]-06-14 17:19:00 Test Item Value Reference Range Interpretation Comments A/G Ratio (test code = A/G Ratio) 1.0 1 0.7-1.6 [place] [address]-06-14 17:19:00 Test Item Value Reference Range Interpretation Comments eGFR (test code = eGFR) 71 [place] [address]-06-14 17:19:00 Test Item Value Reference Range Interpretation Comments Lipase Lvl (test code = Lipase Lvl) 78 73-393 [place] 609592-06-14 17:19:00 Test Item Value Reference Range Interpretation Comments WBC (test code = WBC) 11.3 3.7-10.4 [place] [address]-06-14 17:19:00 Test Item Value Reference Range Interpretation Comments RBC (test code = RBC) 4.97 4.70-6.10 [place] [address]-06-14 17:19:00 Test Item Value Reference Range Interpretation Comments Hgb (test code = Hgb) 15.6 14.0-18.0 [place] [address]-06-14 17:19:00 Test Item Value Reference Range Interpretation Comments Hct (test code = Hct) 45.2 42.0-54.0 [place] [address]-06-14 17:19:00 Test Item Value Reference Range Interpretation Comments MCV (test code = MCV) 90.9 80.0-94.0 [place] [address]-06-14 17:19:00 Test Item Value Reference Range Interpretation Comments MCH (test code = MCH) 31.3 pg 27.0-31.0 [place] [address]-06-14 17:19:00 Test Item Value Reference Range Interpretation Comments MCHC (test code = MCHC) 34.4 32.0-36.0 [facility] AustinWjgkrtdQHPTGVILVC9459-69-32 17:19:00 Test Item Value Reference Range Interpretation Comments RDW (test code = RDW) 12.7 11.5-14.5 [place] 609592-06-14 17:19:00 Test Item Value Reference Range Interpretation Comments Platelet (test code = Platelet) 209 133-450 [facility] AustinHegpwzrTUBSCXYWIO5511-82-10 17:19:00 Test Item Value Reference Range Interpretation Comments MPV (test code = MPV) 10.2 7.4-10.4 [facility] AustinRqbfbedXQRYLKFVUQ8425-80-37 17:19:00 Test Item Value Reference Range Interpretation Comments Segs (test code = Segs) 59.2 45.0-75.0 [facility] AustinWdjuhkqESUVBMQIPZ0507-75-77 17:19:00 Test Item Value Reference Range Interpretation Comments Lymphocytes (test code = Lymphocytes) 21.5 20.0-40.0 [facility] AustinVtnrbcoGTQSYOBTKI8850-99-62 17:19:00 Test Item Value Reference Range Interpretation Comments Monocytes (test code = Monocytes) 11.7 2.0-12.0 [facility] AustinGwxovguFSXWNYMRNG7645-08-09 17:19:00 Test Item Value Reference Range Interpretation Comments Eosinophils (test code = 6.5 See_Comment [A utomated message] The Eosinophils) system which ge nerated this result tra nsmitted reference range : <=4.0. The reference r tony was not used to int erpret this result as normal/abnormal . [facility] AustinZxshflcHYMFIWXNMR9991-96-08 17:19:00 Test Item Value Reference Range Interpretation Comments Basophils (test code = 1.1 See_Comment [Aut omated message] The Basophils) system which ge nerated this result tra nsmitted reference range : <=1.0. The reference r tony was not used to int erpret this result as normal/abnormal . [facility] AustinYfqexvdYNJEACLNYI2035-91-57 17:19:00 Test Item Value Reference Range Interpretation Comments Neutrophils # (test code = Neutrophils 6.7 1.5-8.1 #) [facility] [facility]3643[facility] 17:19:00 Test Item Value Reference Range Interpretation Comments Lymphocytes # (test code = Lymphocytes 2.4 1.0-5.5 #) [facility] AustinIeiccdiRCVFKYNSFH0130-79-67 17:19:00 Test Item Value Reference Range Interpretation Comments Monocytes # (test code 1.3 See_Comment [Aut omated message] The = Monocytes #) system which generated this result tra nsmitted reference range : <=0.8. The reference r tony was not used to int erpret this result as normal/abnormal . [facility] AustinQokxdzoYIABPZZWVC3414-89-62 17:19:00 Test Item Value Reference Range Interpretation Comments Eosinophils # (test code 0.7 See_Comment [A utomated message] The = Eosinophils #) system whic h generated this result tra nsmitted reference range : <=0.5. The reference r tony was not used to int erpret this result as normal/abnormal . [facility] AustinImhpqhuPDZHZCUUWF4691-88-38 17:19:00 Test Item Value Reference Range Interpretation Comments Basophils # (test code 0.1 See_Comment [Aut omated message] The = Basophils #) system which generated this result tra nsmitted reference range : <=0.2. The reference r tony was not used to int erpret this result as normal/abnormal . [place] [id number] 17:19:00 Test Item Value Reference Range Interpretation Comments Grp A Strep Scr (test Negative (11/14/21 12:19 code = Grp A Strep PM) Scr) [facility]2022-06-14 17:19:00 Test Item Value Reference Range Interpretation Comments Glucose Lvl (test code = Glucose Lvl) 119 70-99 [facility]2022-06-14 17:19:00 Test Item Value Reference Range Interpretation Comments BUN (test code = BUN) 15 7-22 [place] 255432-06-14 17:19:00 Test Item Value Reference Range Interpretation Comments Creatinine Lvl (test code = Creatinine 1.31 0.50-1.40 Lvl) [place] 255432-06-14 17:19:00 Test Item Value Reference Range Interpretation Comments Sodium Lvl (test code = Sodium Lvl) 138 135-145 [facility]2022-06-14 17:19:00 Test Item Value Reference Range Interpretation Comments Potassium Lvl (test code = Potassium 3.6 3.5-5.1 Lvl) [place] 255432-06-14 17:19:00 Test Item Value Reference Range Interpretation Comments Chloride Lvl (test code = Chloride Lvl) 105 95-109 [place] 255432-06-14 17:19:00 Test Item Value Reference Range Interpretation Comments CO2 (test code = CO2) 27 24-32 [place] 255432-06-14 17:19:00 Test Item Value Reference Range Interpretation Comments Calcium Lvl (test code = Calcium Lvl) 8.9 8.5-10.5 [place] 255432-06-14 17:19:00 Test Item Value Reference Range Interpretation Comments Total Protein (test code = Total 7.7 6.4-8.4 Protein) [place] 255432-06-14 17:19:00 Test Item Value Reference Range Interpretation Comments Albumin Lvl (test code = Albumin Lvl) 3.9 3.5-5.0 [place] 255432-06-14 17:19:00 Test Item Value Reference Range Interpretation Comments ALT (test code = ALT) 40 See_Comment [Auto mated message] The system which ge nerated this result transmit ezequiel reference range : <=65. The reference range was not used to interpr et this result as grace l/abnormal. [facility] [id number] 17:19:00 Test Item Value Reference Range Interpretation Comments AST (test code = AST) 19 See_Comment [Auto mated message] The system which ge nerated this result transmit ezequiel reference range : <=37. The reference range was not used to interpr et this result as grace l/abnormal. [place] 255432-06-14 17:19:00 Test Item Value Reference Range Interpretation Comments Alk Phos (test code = Alk Phos) 68 39-136 [place] [address]-06-14 17:19:00 Test Item Value Reference Range Interpretation Comments Bili Total (test code = Bili Total) 0.6 0.2-1.3 [place] [address]-06-14 17:19:00 Test Item Value Reference Range Interpretation Comments AGAP (test code = AGAP) 9.6 10.0-20.0 [place] 255432-06-14 17:19:00 Test Item Value Reference Range Interpretation Comments B/C Ratio (test code = B/C Ratio) 11 1 6-25 [facility]2022-06-14 17:19:00 Test Item Value Reference Range Interpretation Comments Globulin (test code = Globulin) 3.8 2.7-4.2 [facility]2022-06-14 17:19:00 Test Item Value Reference Range Interpretation Comments A/G Ratio (test code = A/G Ratio) 1.0 1 0.7-1.6 [place] 255432-06-14 17:19:00 Test Item Value Reference Range Interpretation Comments eGFR (test code = eGFR) 71 [facility]2022-06-14 17:19:00 Test Item Value Reference Range Interpretation Comments Lipase Lvl (test code = Lipase Lvl) 78 73-393 [facility] AustinXbxlzanFDLLDFLNIM2947-37-71 17:19:00 Test Item Value Reference Range Interpretation Comments WBC (test code = WBC) 11.3 3.7-10.4 [facility] AustinDhyilpfRBFAANNUCC7218-04-17 17:19:00 Test Item Value Reference Range Interpretation Comments RBC (test code = RBC) 4.97 4.70-6.10 [facility] AustinWyfjiyjZVREOHLIVL1028-46-76 17:19:00 Test Item Value Reference Range Interpretation Comments Hgb (test code = Hgb) 15.6 14.0-18.0 [facility] AustinRysougmKCMLQIWENE2582-15-62 17:19:00 Test Item Value Reference Range Interpretation Comments Hct (test code = Hct) 45.2 42.0-54.0 [place] 609592-06-14 17:19:00 Test Item Value Reference Range Interpretation Comments MCV (test code = MCV) 90.9 80.0-94.0 [place] 609592-06-14 17:19:00 Test Item Value Reference Range Interpretation Comments MCH (test code = MCH) 31.3 pg 27.0-31.0 [place] [address]-06-14 17:19:00 Test Item Value Reference Range Interpretation Comments MCHC (test code = MCHC) 34.4 32.0-36.0 [place] [address]-06-14 17:19:00 Test Item Value Reference Range Interpretation Comments RDW (test code = RDW) 12.7 11.5-14.5 [place] 609592-06-14 17:19:00 Test Item Value Reference Range Interpretation Comments Platelet (test code = Platelet) 209 133-450 [facility] AustinDwyunnoJGBFOWQVYS0567-01-35 17:19:00 Test Item Value Reference Range Interpretation Comments MPV (test code = MPV) 10.2 7.4-10.4 [facility] AustinApqcfkmWHXNYCFPQR3677-19-59 17:19:00 Test Item Value Reference Range Interpretation Comments Segs (test code = Segs) 59.2 45.0-75.0 [facility] AustinChimbvzEAQKOCXQXD4385-33-73 17:19:00 Test Item Value Reference Range Interpretation Comments Lymphocytes (test code = Lymphocytes) 21.5 20.0-40.0 [place] 609592-06-14 17:19:00 Test Item Value Reference Range Interpretation Comments Monocytes (test code = Monocytes) 11.7 2.0-12.0 [facility] AustinUugecuwVEOIAXMPOW4076-25-83 17:19:00 Test Item Value Reference Range Interpretation Comments Eosinophils (test code = 6.5 See_Comment [A utomated message] The Eosinophils) system which ge nerated this result tra nsmitted reference range : <=4.0. The reference r tony was not used to int erpret this result as normal/abnormal . [facility] AustinAkykyjtZZNIRKKXGH1166-40-37 17:19:00 Test Item Value Reference Range Interpretation Comments Basophils (test code = 1.1 See_Comment [Aut omated message] The Basophils) system which ge nerated this result tra nsmitted reference range : <=1.0. The reference r tony was not used to int erpret this result as normal/abnormal . [facility] AustinKpbjnwzRHVICNJRXJ3373-63-32 17:19:00 Test Item Value Reference Range Interpretation Comments Neutrophils # (test code = Neutrophils 6.7 1.5-8.1 #) [facility] AustinWysamkjHDGOIBPUTM6503-93-65 17:19:00 Test Item Value Reference Range Interpretation Comments Lymphocytes # (test code = Lymphocytes 2.4 1.0-5.5 #) [place] 609592-06-14 17:19:00 Test Item Value Reference Range Interpretation Comments Monocytes # (test code 1.3 See_Comment [Aut omated message] The = Monocytes #) system which generated this result tra nsmitted reference range : <=0.8. The reference r tony was not used to int erpret this result as normal/abnormal . [place] 609592-06-14 17:19:00 Test Item Value Reference Range Interpretation Comments Eosinophils # (test code 0.7 See_Comment [A utomated message] The = Eosinophils #) system whic h generated this result tra nsmitted reference range : <=0.5. The reference r tony was not used to int erpret this result as normal/abnormal . [facility] AustinGddojblLCCVQFHLOL2734-59-79 17:19:00 Test Item Value Reference Range Interpretation Comments Basophils # (test code 0.1 See_Comment [Aut omated message] The = Basophils #) system which generated this result tra nsmitted reference range : <=0.2. The reference r tony was not used to int erpret this result as normal/abnormal . [place] 18816022-06-14 17:19:00 Test Item Value Reference Range Interpretation Comments Grp A Strep Scr (test Negative (11/14/21 12:19 code = Grp A Strep PM) Scr) [place] 255432-06-14 17:19:00 Test Item Value Reference Range Interpretation Comments Glucose Lvl (test code = Glucose Lvl) 119 70-99 [place] 255432-06-14 17:19:00 Test Item Value Reference Range Interpretation Comments BUN (test code = BUN) 15 - [place] 255432-06-14 17:19:00 Test Item Value Reference Range Interpretation Comments Creatinine Lvl (test code = Creatinine 1.31 0.50-1.40 Lvl) [place] 255432-06-14 17:19:00 Test Item Value Reference Range Interpretation Comments Sodium Lvl (test code = Sodium Lvl) 138 135-145 [place] 255432-06-14 17:19:00 Test Item Value Reference Range Interpretation Comments Potassium Lvl (test code = Potassium 3.6 3.5-5.1 Lvl) [place] 255432-06-14 17:19:00 Test Item Value Reference Range Interpretation Comments Chloride Lvl (test code = Chloride Lvl) 105 95-109 [place] 255432-06-14 17:19:00 Test Item Value Reference Range Interpretation Comments CO2 (test code = CO2) 27 24-32 [facility]2022-06-14 17:19:00 Test Item Value Reference Range Interpretation Comments Calcium Lvl (test code = Calcium Lvl) 8.9 8.5-10.5 [place] 255432-06-14 17:19:00 Test Item Value Reference Range Interpretation Comments Total Protein (test code = Total 7.7 6.4-8.4 Protein) [place] 255432-06-14 17:19:00 Test Item Value Reference Range Interpretation Comments Albumin Lvl (test code = Albumin Lvl) 3.9 3.5-5.0 [facility] [place]RY[place] [address]20YTPZD9135-99-66 17:19:00 Test Item Value Reference Range Interpretation Comments ALT (test code = ALT) 40 See_Comment [Auto mated message] The system which ge nerated this result transmit ezequiel reference range : <=65. The reference range was not used to interpr et this result as grace l/abnormal. [facility] [id number] 17:19:00 Test Item Value Reference Range Interpretation Comments AST (test code = AST) 19 See_Comment [Auto mated message] The system which ge nerated this result transmit ezequiel reference range : <=37. The reference range was not used to interpr et this result as grace l/abnormal. [facility] KMJHO3166-32-92 17:19:00 Test Item Value Reference Range Interpretation Comments Alk Phos (test code = Alk Phos) 68 39-136 [facility] ZHAHB1690-60-55 17:19:00 Test Item Value Reference Range Interpretation Comments Bili Total (test code = Bili Total) 0.6 0.2-1.3 [place] 255432-06-14 17:19:00 Test Item Value Reference Range Interpretation Comments AGAP (test code = AGAP) 9.6 10.0-20.0 [facility] EZXHB5704-93-26 17:19:00 Test Item Value Reference Range Interpretation Comments B/C Ratio (test code = B/C Ratio) 11 1 6-25 [facility] LQSAR1516-03-94 17:19:00 Test Item Value Reference Range Interpretation Comments Globulin (test code = Globulin) 3.8 2.7-4.2 [facility]2022-06-14 17:19:00 Test Item Value Reference Range Interpretation Comments A/G Ratio (test code = A/G Ratio) 1.0 1 0.7-1.6 [place] 255432-06-14 17:19:00 Test Item Value Reference Range Interpretation Comments eGFR (test code = eGFR) 71 [facility]2022-06-14 17:19:00 Test Item Value Reference Range Interpretation Comments Lipase Lvl (test code = Lipase Lvl) 78 73-393 [facility] AustinLipkollQSQNEIMJYG7343-40-76 17:19:00 Test Item Value Reference Range Interpretation Comments WBC (test code = WBC) 11.3 3.7-10.4 [place] 609592-06-14 17:19:00 Test Item Value Reference Range Interpretation Comments RBC (test code = RBC) 4.97 4.70-6.10 [facility] AustinTldisvpIYGDBQQAOU9407-59-21 17:19:00 Test Item Value Reference Range Interpretation Comments Hgb (test code = Hgb) 15.6 14.0-18.0 [place] 609592-06-14 17:19:00 Test Item Value Reference Range Interpretation Comments Hct (test code = Hct) 45.2 42.0-54.0 [facility] AustinPeyatzkOPBXZEXWAM3111-07-07 17:19:00 Test Item Value Reference Range Interpretation Comments MCV (test code = MCV) 90.9 80.0-94.0 [place] [address]-06-14 17:19:00 Test Item Value Reference Range Interpretation Comments MCH (test code = MCH) 31.3 pg 27.0-31.0 [place] [address]-06-14 17:19:00 Test Item Value Reference Range Interpretation Comments MCHC (test code = MCHC) 34.4 32.0-36.0 [place] 609592-06-14 17:19:00 Test Item Value Reference Range Interpretation Comments RDW (test code = RDW) 12.7 11.5-14.5 [place] 609592-06-14 17:19:00 Test Item Value Reference Range Interpretation Comments Platelet (test code = Platelet) 209 133-450 [facility] AustinLtxebihTQSEPGCUTN7538-27-33 17:19:00 Test Item Value Reference Range Interpretation Comments MPV (test code = MPV) 10.2 7.4-10.4 [place] 609592-06-14 17:19:00 Test Item Value Reference Range Interpretation Comments Segs (test code = Segs) 59.2 45.0-75.0 [facility] AustinPyxhzkyUWXRRIVKOI3548-04-79 17:19:00 Test Item Value Reference Range Interpretation Comments Lymphocytes (test code = Lymphocytes) 21.5 20.0-40.0 [place] 609592-06-14 17:19:00 Test Item Value Reference Range Interpretation Comments Monocytes (test code = Monocytes) 11.7 2.0-12.0 [facility] AustinEudrgmvBOPAVOIKJH2347-49-48 17:19:00 Test Item Value Reference Range Interpretation Comments Eosinophils (test code = 6.5 See_Comment [A utomated message] The Eosinophils) system which ge nerated this result tra nsmitted reference range : <=4.0. The reference r tony was not used to int erpret this result as normal/abnormal . [facility] AustinNzbukhhGCTULIKPNT5290-16-62 17:19:00 Test Item Value Reference Range Interpretation Comments Basophils (test code = 1.1 See_Comment [Aut omated message] The Basophils) system which ge nerated this result tra nsmitted reference range : <=1.0. The reference r tony was not used to int erpret this result as normal/abnormal . [facility] AustinJyitlmjBSXHYROMWY3426-07-45 17:19:00 Test Item Value Reference Range Interpretation Comments Neutrophils # (test code = Neutrophils 6.7 1.5-8.1 #) [facility] AustinXvhuafzOBUWKDRPTF4104-14-26 17:19:00 Test Item Value Reference Range Interpretation Comments Lymphocytes # (test code = Lymphocytes 2.4 1.0-5.5 #) [place] 609592-06-14 17:19:00 Test Item Value Reference Range Interpretation Comments Monocytes # (test code 1.3 See_Comment [Aut omated message] The = Monocytes #) system which generated this result tra nsmitted reference range : <=0.8. The reference r tony was not used to int erpret this result as normal/abnormal . [place] 609592-06-14 17:19:00 Test Item Value Reference Range Interpretation Comments Eosinophils # (test code 0.7 See_Comment [A utomated message] The = Eosinophils #) system whic h generated this result tra nsmitted reference range : <=0.5. The reference r tony was not used to int erpret this result as normal/abnormal . [facility]TzapuqgISLOHIVIFH1904-[facility] 17:19:00 Test Item Value Reference Range Interpretation Comments Basophils # (test code 0.1 See_Comment [Aut omated message] The = Basophils #) system which generated this result tra nsmitted reference range : <=0.2. The reference r tony was not used to int erpret this result as normal/abnormal . [place] 18816022-06-14 17:19:00 Test Item Value Reference Range Interpretation Comments Grp A Strep Scr (test Negative (11/14/21 12:19 code = Grp A Strep PM) Scr) [facility] STREP [employer] [id number] 13:33:00 Test Item Value Reference Range Interpretation [...] the FDA and the [employer] (CAP) are more stringent than those required for this test. Therefore, the result should be interpreted with caution and close attention to other clinical and epidemiological data [id number] 07:38:00 Test Item Value Reference Range Interpretation [...] code = LEUK) NEGATIVE NEGATIVE BRAIN NATRIURETIC [id number] 06:26:00 Test Item Value Reference Range Interpretation Comments proBNP (test code = PBNP) 20 pg/mL 0-125 AMYLASE AND [id number] 06:24:00 Test Item Value Reference Range Interpretation Comments AMYLASE (test code = 10A) 55 U/L 28-100 LIPASE (test code = 60A) 221 IU/L 73-393 [id number] 06:24:00 Test Item Value Reference Range Interpretation Comments CPK (test code = 32A) 100 IU/L 39-308 COMPREHENSIVE METABOLIC [id number] 06:24:00 Test Item Value Reference Range Interpretation [...] code = 31A) 59 IU/L <=78 LDH-LACTIC YOENRYHTNBRKZ4522-71-77 06:23:00 Test Item Value Reference Range Interpretation Comments LDH (test code = 33A) 195 IU/L 100-190 H JGHDTIQC9614-10-35 06:23:00 Test Item Value Reference Range Interpretation Comments FERRITIN (test code = A19) 122.3 ng/mL 26.0-388.0 TROPONIN [id number] 06:21:00 Test Item Value Reference Range Interpretation Comments TROPONIN I (test code = A84) <0.015 ng/mL 0.000-0.045 IKFDOFPOS1475-09-49 06:18:00 Test Item Value Reference Range Interpretation Comments MAGNESIUM (test code = 48A) 2.2 mg/dL 1.8-2.4 C-REACTIVE PROTEIN [id number] 06:17:00 Test Item Value Reference Range Interpretation Comments CRP QUANT (test code <2.9 mg/L 0.0-2.9 = CRPQ) Method Change (test Please note the code = METHOD) change in Method and the reference range DIRECT INFLUENZA A AND B [id number] 06:16:00 Test Item Value Reference Range Interpretation Comments Direct Exam (test PRESUMPTIVE NEGATIVE FOR code = DE1) THE PRESENCE OF INFLUENZA ANTIGEN PRO TIME AND [id number] 06:12:00 Test Item Value Reference Range Interpretation [...] or LMW Heparin. Order Code is ANTI-XA [id number] 06:12:00 Test Item Value Reference Range Interpretation Comments D-DIMER (test code = <200 ng/mL D-DU 0-234 DDI) D-DIMER COMMENT (test *Level to rule out code = DDCOM) DVT or PE: <235 ng/mL D-DU* Venous Blood [id number] 06:03:00 Test Item Value Reference Range Interpretation Comments VpH (test code = 7.383 7.300-7.400 VPHRT) VpCO2 (test code = 46.0 mmHg 40.0-50.0 YVXK4JI) VpO2 (test code = 55.5 mmHg 30.0-40.0 H VPO2RT) HCO3? (test code = 26.8 mmol/L 22.0-26.0 H HCO3) RADHA (test code = RADHA) 1.7 mmol/L -3.0-3.0 tHb (test code = 15.1 g/dL 14.0-18.0 THBRT) vsO2 (test code = 90.7 % 55.0-75.0 H VSO2RT) FO2Hb (test code = 86.2 % [id number]) FCOHb (test code = 3.5 % FCOHBRTV) FMetHb (test code = 1.4 % FMETHBRTV) ABGTEMP (test code = * Temp Corrected Values* ABGTEMP) ABGTEMP (test code = 37.0 ?C ABGTEMP.) pH (T) (test code = 7.383 7.300-7.400 PHTEMPV) pCO2 (T) (test code = 46.0 mmHg 40.0-50.0 JDJ1ANVGY) pO2 (T) (test code = 55.5 mmHg 30.0-40.0 H RI1SRTOW) Device (test code = ROOM AIR DEVICE) [...] (test code = RBCMOR) NORMAL COVID-19 qualitative [id number] 05:07:48 Test Item Value Reference Range Interpretation Comments Interpretation (test Negative results do code = 1660262) not preclude 2019-nCoV infection and should not be used as the sole basis for treatment or other patient management decisions. Negative results must be combined with clinical observations, patient history, and epidemiological information. COVID-19 qualitative Not-Detected Not-Detected RT-PCR result (test code = 20811-1) COVID-19 qualitative See link below for C ase Number: RT-PCR (test code = PDF Lab Report [id number]) [facility]2018-09-26 20:23:00 Test Item Value Reference Range Interpretation Comments AGAP (test code = AGAP) 9.8 10.0-20.0 [facility]pzaxmbODETWZMFPQFO3094-24-46 20:23:00 Test Item Value Reference Range Interpretation Comments Globulin (test code = Globulin) 2.9 2.7-4.2 [facility] RegionSwlhewrISZASIWMJJIR0386-69-04 20:23:00 Test Item Value Reference Range Interpretation Comments A/G Ratio (test code = A/G Ratio) 1.3 1 0.7-1.6 [facility] RegionUjmrtvnJZIGWJSGHVYW7760-94-69 20:23:00 Test Item Value Reference Range Interpretation Comments B/C Ratio (test code = B/C Ratio) 12 1 6-25 [facility] RegionPbslmlkWQBMLDKINUJD1090-59-41 20:23:00 Test Item Value Reference Range Interpretation Comments eGFR (test code = eGFR) 101 [facility] RegionPzufoycPQPGZMDQHOKZ4680-53-66 20:23:00 Test Item Value Reference Range Interpretation Comments Bili Total (test code = Bili Total) 0.5 0.2-1.3 [facility] RegionIvzfoxlNDCSWWDLGHBS6784-26-75 20:23:00 Test Item Value Reference Range Interpretation Comments Alk Phos (test code = Alk Phos) 54 39-136 [facility] RegionIpvslkcBRNMMZBOGDZI4474-43-28 20:23:00 Test Item Value Reference Range Interpretation Comments Total Protein (test code = Total 6.7 6.4-8.4 Protein) [facility] RegionWdwwavmKFQRTHYYLVCP7732-70-79 20:23:00 Test Item Value Reference Range Interpretation Comments Albumin Lvl (test code = Albumin Lvl) 3.8 3.5-5.0 [facility] RegionItcnsmkGQMJNDWCLRXZ2933-91-87 20:23:00 Test Item Value Reference Range Interpretation Comments Calcium Lvl (test code = Calcium Lvl) 8.2 8.5-10.5 [facility] RegionJoilkwiTRNSYRBEFZKZ2846-99-39 20:23:00 Test Item Value Reference Range Interpretation Comments ALT (test code = ALT) 20 See_Comment [Auto mated message] The system which ge nerated this result transmit ezequiel reference range : <=65. The reference range was not used to interpr et this result as grace l/abnormal. [facility] RegionZxbzbzwJRZURXBWTENI2056-63-97 20:23:00 Test Item Value Reference Range Interpretation Comments AST (test code = AST) 30 See_Comment [Auto mated message] The system which ge nerated this result transmit ezequiel reference range : <=37. The reference range was not used to interpr et this result as grace l/abnormal. [facility] RegionUxqkwjoWWKKUZYKUIBP0016-64-84 20:23:00 Test Item Value Reference Range Interpretation Comments Sodium Lvl (test code = Sodium Lvl) 142 135-145 [facility] RegionOjvzlmqBNLVDPYUJUCI2410-03-59 20:23:00 Test Item Value Reference Range Interpretation Comments Potassium Lvl (test code = Potassium 4.8 3.5-5.1 Lvl) [facility] RegionRkmndxmRKKMACRFZWKG9215-06-68 20:23:00 Test Item Value Reference Range Interpretation Comments Creatinine Lvl (test code = Creatinine 1.00 0.50-1.40 Lvl) [facility] RegionDnshafcOHBFSRMBRBCZ7557-58-25 20:23:00 Test Item Value Reference Range Interpretation Comments Chloride Lvl (test code = Chloride Lvl) 111 95-109 [facility] RegionZzmqtauAQGXSRBEWECG5912-49-49 20:23:00 Test Item Value Reference Range Interpretation Comments CO2 (test code = CO2) 26 24-32 [facility] RegionVyegpchFKGPLRBTDJFG4284-21-88 20:23:00 Test Item Value Reference Range Interpretation Comments Glucose Lvl (test code = Glucose Lvl) 93 70-99 [facility] RegionYuxvdprCOJSQAHDSYSH7168-98-27 20:23:00 Test Item Value Reference Range Interpretation Comments BUN (test code = BUN) 12 7-22 [facility] AustinGdljzpmLWIVFYLRDW4544-45-24 20:23:00 Test Item Value Reference Range Interpretation Comments Basophils # (test code 0.1 See_Comment [Aut omated message] The = Basophils #) system which generated this result tra nsmitted reference range : <=0.2. The reference r tony was not used to int erpret this result as normal/abnormal . [facility] AustinRhkksoeMLQIRZRFAJ0024-18-14 20:23:00 Test Item Value Reference Range Interpretation Comments Eosinophils # (test code 0.1 See_Comment [A utomated message] The = Eosinophils #) system whic h generated this result tra nsmitted reference range : <=0.5. The reference r tony was not used to int erpret this result as normal/abnormal . [facility]XfqatqfFPUYVGGAKM6202-09-74 20:23:00 Test Item Value Reference Range Interpretation Comments Lymphocytes (test code = Lymphocytes) 16.2 20.0-40.0 [facility] AustinJzbiamjSOFESJDQEA6188-97-90 20:23:00 Test Item Value Reference Range Interpretation Comments Monocytes (test code = Monocytes) 4.7 2.0-12.0 [facility] AustinZzflzwpZSYIHCSUWA7577-53-94 20:23:00 Test Item Value Reference Range Interpretation Comments Neutrophils # (test code = Neutrophils 9.7 1.5-8.1 #) [facility] AustinRtvpeuaFUKSFHJCMF1058-50-67 20:23:00 Test Item Value Reference Range Interpretation Comments Eosinophils (test code = 0.7 See_Comment [A utomated message] The Eosinophils) system which ge nerated this result tra nsmitted reference range : <=4.0. The reference r tony was not used to int erpret this result as normal/abnormal . [facility] AustinRcanhncVJROODJYIK9014-47-50 20:23:00 Test Item Value Reference Range Interpretation Comments Basophils (test code = 0.6 See_Comment [Aut omated message] The Basophils) system which ge nerated this result tra nsmitted reference range : <=1.0. The reference r tony was not used to int erpret this result as normal/abnormal . [facility] AustinLwzlceiUOQRTRRYBN8052-52-07 20:23:00 Test Item Value Reference Range Interpretation Comments Segs (test code = Segs) 77.8 45.0-75.0 [facility] AustinMpnoxvxHXPSGJFUWL3628-95-82 20:23:00 Test Item Value Reference Range Interpretation Comments Monocytes # (test code 0.6 See_Comment [Aut omated message] The = Monocytes #) system which generated this result tra nsmitted reference range : <=0.8. The reference r tony was not used to int erpret this result as normal/abnormal . [facility] AustinXuxjwebXDEAPVGQJC0997-32-92 20:23:00 Test Item Value Reference Range Interpretation Comments Lymphocytes # (test code = Lymphocytes 2.0 1.0-5.5 #) [facility] AustinOnrqibmOCORPYTSET3736-18-67 20:23:00 Test Item Value Reference Range Interpretation Comments RDW (test code = RDW) 13.2 11.5-14.5 [facility] AustinUdiscazHAJEGJNSPZ8413-89-21 20:23:00 Test Item Value Reference Range Interpretation Comments MCV (test code = MCV) 94.1 80.0-94.0 [facility] AustinCvfzypfEJUTKTTCIU7887-96-02 20:23:00 Test Item Value Reference Range Interpretation Comments MCHC (test code = MCHC) 32.7 32.0-36.0 [facility] AustinYbglmooNTJXTZBLUX9950-76-70 20:23:00 Test Item Value Reference Range Interpretation Comments MCH (test code = MCH) 30.7 pg 27.0-31.0 [facility] AustinGjupsndAUPUAJVBBC4362-12-86 20:23:00 Test Item Value Reference Range Interpretation Comments Platelet (test code = Platelet) 199 133-450 [facility] AustinHairebfSNNCUDHNUU9342-93-82 20:23:00 Test Item Value Reference Range Interpretation Comments MPV (test code = MPV) 10.0 7.4-10.4 [facility] AustinJjerzixQJGMIPAVIJ7759-14-52 20:23:00 Test Item Value Reference Range Interpretation Comments Hgb (test code = Hgb) 13.3 14.0-18.0 [facility] AustinQrfsaczSEVTEQDGJW9896-52-36 20:23:00 Test Item Value Reference Range Interpretation Comments RBC (test code = RBC) 4.31 4.70-6.10 [facility] AustinHvsbswrBIBZJNWGBJ8691-65-46 20:23:00 Test Item Value Reference Range Interpretation Comments Hct (test code = Hct) 40.6 42.0-54.0 [facility] AustinMhivnhbSIMDUXIVRJ0891-71-59 20:23:00 Test Item Value Reference Range Interpretation Comments WBC (test code = WBC) 12.4 3.7-10.4 [facility] AustinTojhoscIOHIRWTIBM0693-00-52 20:23:00 Test Item Value Reference Range Interpretation Comments INR (test code = INR) 1.10 1 0.85-1.17 [facility] AustinKvcdbpxNJQEMZEIUO3794-47-21 20:23:00 Test Item Value Reference Range Interpretation Comments PT (test code = PT) 14.2 s 12.0-14.7 [facility] AustinXggfjtvERQAEBCJYO0341-54-20 20:23:00 Test Item Value Reference Range Interpretation Comments PTT (test code = PTT) 26.1 s 22.9-35.8 [place] [id number] 20:23:00 Test Item Value Reference Range Interpretation Comments Ethanol Lvl (test code = Ethanol Lvl) no gt [place] [id number] 20:23:00 Test Item Value Reference Range Interpretation Comments Etoh (%) (test code = Etoh (%)) no gt [facility] AustinZqsbnwpGIPGSLQSQT5842-18-58 20:23:00 Test Item Value Reference Range Interpretation Comments Lymphocytes (test code = Lymphocytes) 16.2 20.0-40.0 [facility] AustinFsbrlcnVDQMOAFPTA8199-01-44 20:23:00 Test Item Value Reference Range Interpretation Comments Monocytes (test code = Monocytes) 4.7 2.0-12.0 [facility] AustinPfmvyunJMKTDNMNFX3953-40-62 20:23:00 Test Item Value Reference Range Interpretation Comments Neutrophils # (test code = Neutrophils 9.7 1.5-8.1 #) [facility] AustinPlffoqmDVNVZFIVHD5448-84-04 20:23:00 Test Item Value Reference Range Interpretation Comments Eosinophils (test code = 0.7 See_Comment [A utomated message] The Eosinophils) system which ge nerated this result tra nsmitted reference range : <=4.0. The reference r tony was not used to int erpret this result as normal/abnormal . [facility] AustinBvstwvuATWGVGLEGU9737-04-58 20:23:00 Test Item Value Reference Range Interpretation Comments Basophils (test code = 0.6 See_Comment [Aut omated message] The Basophils) system which ge nerated this result tra nsmitted reference range : <=1.0. The reference r tony was not used to int erpret this result as normal/abnormal . [facility] AustinLgnlndgPRYKRQTMNZ2427-93-34 20:23:00 Test Item Value Reference Range Interpretation Comments Segs (test code = Segs) 77.8 45.0-75.0 [facility] AustinUxvuileHPZQBYLSCV4181-93-46 20:23:00 Test Item Value Reference Range Interpretation Comments Monocytes # (test code 0.6 See_Comment [Aut omated message] The = Monocytes #) system which generated this result tra nsmitted reference range : <=0.8. The reference r tony was not used to int erpret this result as normal/abnormal . [facility] AustinZwervyhJKWLMJVQBZ3769-39-43 20:23:00 Test Item Value Reference Range Interpretation Comments Lymphocytes # (test code = Lymphocytes 2.0 1.0-5.5 #) [facility] AustinOtazlnoNJXVMZEOEU7631-46-29 20:23:00 Test Item Value Reference Range Interpretation Comments RDW (test code = RDW) 13.2 11.5-14.5 [facility] AustinImjmpawPIQQMGTLOD3159-51-53 20:23:00 Test Item Value Reference Range Interpretation Comments MCV (test code = MCV) 94.1 80.0-94.0 [facility] AustinNzuyflsIDGSRWFCNW9056-51-57 20:23:00 Test Item Value Reference Range Interpretation Comments MCHC (test code = MCHC) 32.7 32.0-36.0 [facility] AustinOmshwghPBDCZIOBWC9872-99-72 20:23:00 Test Item Value Reference Range Interpretation Comments MCH (test code = MCH) 30.7 pg 27.0-31.0 [facility] AustinDwjabuoIGLMEBHLMW9217-80-50 20:23:00 Test Item Value Reference Range Interpretation Comments Platelet (test code = Platelet) 199 133-450 [facility] AustinHqectohNPEXRNBJNR0030-29-48 20:23:00 Test Item Value Reference Range Interpretation Comments MPV (test code = MPV) 10.0 7.4-10.4 [facility] AustinKdkztlkARULCUNARI6174-94-75 20:23:00 Test Item Value Reference Range Interpretation Comments Hgb (test code = Hgb) 13.3 14.0-18.0 [facility] AustinJiqbzuaUQZTHXLIYA4090-36-49 20:23:00 Test Item Value Reference Range Interpretation Comments RBC (test code = RBC) 4.31 4.70-6.10 [facility] AustinEyeisghJASCEUXZEC9287-56-59 20:23:00 Test Item Value Reference Range Interpretation Comments Hct (test code = Hct) 40.6 42.0-54.0 [facility] AustinUtnindbWQLHLSZTBO1470-05-22 20:23:00 Test Item Value Reference Range Interpretation Comments WBC (test code = WBC) 12.4 3.7-10.4 [facility] AustinIgofzulTOEOPFFYJZ7677-78-85 20:23:00 Test Item Value Reference Range Interpretation Comments INR (test code = INR) 1.10 1 0.85-1.17 [facility] AustinJdxaimrETMURSHAHB3590-36-02 20:23:00 Test Item Value Reference Range Interpretation Comments PT (test code = PT) 14.2 s 12.0-14.7 [facility] AustinShsoztkWSHWCZTBFQ9144-90-18 20:23:00 Test Item Value Reference Range Interpretation Comments PTT (test code = PTT) 26.1 s 22.9-35.8 [facility]CrnbbcvJKVOPUINUW6724-82-02 20:23:00 Test Item Value Reference Range Interpretation Comments Ethanol Lvl (test code = Ethanol Lvl) no gt [place] [id number] 20:23:00 Test Item Value Reference Range Interpretation Comments Etoh (%) (test code = Etoh (%)) [facility] gt [facility]HjdsupyFUJFPGSBHFXM8853-87-42 20:23:00 Test Item Value Reference Range Interpretation Comments AGAP (test code = AGAP) 9.8 10.0-20.0 [facility] RegionAxmmrghUFAJEUBXBMPT8975-77-79 20:23:00 Test Item Value Reference Range Interpretation Comments Globulin (test code = Globulin) 2.9 2.7-4.2 [facility] RegionZuzrvtkUKLZUNSLAEMT2787-25-38 20:23:00 Test Item Value Reference Range Interpretation Comments A/G Ratio (test code = A/G Ratio) 1.3 1 0.7-1.6 [facility] RegionYuxsqvdGYJWLWMWHMFR3787-22-35 20:23:00 Test Item Value Reference Range Interpretation Comments B/C Ratio (test code = B/C Ratio) 12 1 6-25 [facility] RegionDpbmnekYFZFXWZFSQRV5023-96-52 20:23:00 Test Item Value Reference Range Interpretation Comments eGFR (test code = eGFR) 101 [facility] RegionXwlaushODNXDILTLHTU5682-66-13 20:23:00 Test Item Value Reference Range Interpretation Comments Bili Total (test code = Bili Total) 0.5 0.2-1.3 [facility] RegionMtoewqbERBJTSSPQHBY2084-80-84 20:23:00 Test Item Value Reference Range Interpretation Comments Alk Phos (test code = Alk Phos) 54 39-136 [facility] RegionGyzexkrCCNBLHWJPPPK1322-06-45 20:23:00 Test Item Value Reference Range Interpretation Comments Total Protein (test code = Total 6.7 6.4-8.4 Protein) [facility] RegionWhynweyBXFKJQXSCHWJ3746-01-88 20:23:00 Test Item Value Reference Range Interpretation Comments Albumin Lvl (test code = Albumin Lvl) 3.8 3.5-5.0 [facility] RegionAxsoaosCXVTDXAPALXW3899-97-94 20:23:00 Test Item Value Reference Range Interpretation Comments Calcium Lvl (test code = Calcium Lvl) 8.2 8.5-10.5 [facility] RegionMuftvwyKPDCWDWZJFUH4241-39-33 20:23:00 Test Item Value Reference Range Interpretation Comments ALT (test code = ALT) 20 See_Comment [Auto mated message] The system which ge nerated this result transmit ezequiel reference range : <=65. The reference range was not used to interpr et this result as grace l/abnormal. [facility] RegionVbczxatVGMXFXIIOCXM3381-14-71 20:23:00 Test Item Value Reference Range Interpretation Comments AST (test code = AST) 30 See_Comment [Auto mated message] The system which ge nerated this result transmit ezequiel reference range : <=37. The reference range was not used to interpr et this result as grace l/abnormal. [place] 14183-09-26 20:23:00 Test Item Value Reference Range Interpretation Comments Sodium Lvl (test code = Sodium Lvl) 142 135-145 [facility] RegionHwhxayrAEEHJMKDHQYZ0263-93-32 20:23:00 Test Item Value Reference Range Interpretation Comments Potassium Lvl (test code = Potassium 4.8 3.5-5.1 Lvl) [facility] RegionQxuonulJFBJXJFEMZLA9628-53-22 20:23:00 Test Item Value Reference Range Interpretation Comments Creatinine Lvl (test code = Creatinine 1.00 0.50-1.40 Lvl) [facility] RegionBuwnmfsUFXIDSFOQUBF1414-81-03 20:23:00 Test Item Value Reference Range Interpretation Comments Chloride Lvl (test code = Chloride Lvl) 111 95-109 [facility] RegionPloafgdQMAAMZGVIZJA5161-57-81 20:23:00 Test Item Value Reference Range Interpretation Comments CO2 (test code = CO2) 26 24-32 [facility] RegionToqshdxXTIDNQYEOIMP5595-87-15 20:23:00 Test Item Value Reference Range Interpretation Comments Glucose Lvl (test code = Glucose Lvl) 93 70-99 [facility] RegionAeftjksTMBONEGRKCAY5054-57-16 20:23:00 Test Item Value Reference Range Interpretation Comments BUN (test code = BUN) 12 7-22 [facility] AustinLgqixplWBMPWEBOYM5324-13-03 20:23:00 Test Item Value Reference Range Interpretation Comments Basophils # (test code 0.1 See_Comment [Aut omated message] The = Basophils #) system which generated this result tra nsmitted reference range : <=0.2. The reference r tony was not used to int erpret this result as normal/abnormal . [facility] AustinNinxbzbTJPMSBIUOG2707-08-02 20:23:00 Test Item Value Reference Range Interpretation Comments Eosinophils # (test code 0.1 See_Comment [A utomated message] The = Eosinophils #) system whic h generated this result tra nsmitted reference range : <=0.5. The reference r tony was not used to int erpret this result as normal/abnormal . [facility] AustinNnqrtefCNAPKBZCMA4309-61-60 20:23:00 Test Item Value Reference Range Interpretation Comments Lymphocytes (test code = Lymphocytes) 16.2 20.0-40.0 [facility] AustinCglyvcbTMDEYOIRXG2956-10-01 20:23:00 Test Item Value Reference Range Interpretation Comments Monocytes (test code = Monocytes) 4.7 2.0-12.0 [facility] AustinGpjgwrqTHWRTUSPDR6195-78-12 20:23:00 Test Item Value Reference Range Interpretation Comments Neutrophils # (test code = Neutrophils 9.7 1.5-8.1 #) [facility] AustinAzgjplzABEMSMUOQP2645-75-58 20:23:00 Test Item Value Reference Range Interpretation Comments Eosinophils (test code = 0.7 See_Comment [A utomated message] The Eosinophils) system which ge nerated this result tra nsmitted reference range : <=4.0. The reference r tony was not used to int erpret this result as normal/abnormal . [facility] AustinMzsiiusKZDOAMXKTL3070-47-04 20:23:00 Test Item Value Reference Range Interpretation Comments Basophils (test code = 0.6 See_Comment [Aut omated message] The Basophils) system which ge nerated this result tra nsmitted reference range : <=1.0. The reference r tony was not used to int erpret this result as normal/abnormal . [facility] AustinDvqhdeyNPYNSWGXTO0099-65-56 20:23:00 Test Item Value Reference Range Interpretation Comments Segs (test code = Segs) 77.8 45.0-75.0 [facility] AustinEcnxiboEJEQLMRQMX8241-91-74 20:23:00 Test Item Value Reference Range Interpretation Comments Monocytes # (test code 0.6 See_Comment [Aut omated message] The = Monocytes #) system which generated this result tra nsmitted reference range : <=0.8. The reference r tony was not used to int erpret this result as normal/abnormal . [facility] AustinHpojvacVBADVKEZOE5570-07-01 20:23:00 Test Item Value Reference Range Interpretation Comments Lymphocytes # (test code = Lymphocytes 2.0 1.0-5.5 #) [facility] AustinApqkoqaSMAPIRJHXZ6099-27-46 20:23:00 Test Item Value Reference Range Interpretation Comments RDW (test code = RDW) 13.2 11.5-14.5 [facility] AustinLrxuvslBEBZUEYELV5387-43-15 20:23:00 Test Item Value Reference Range Interpretation Comments MCV (test code = MCV) 94.1 80.0-94.0 [facility] AustinQjoznttVYDTPMFGYW4474-07-45 20:23:00 Test Item Value Reference Range Interpretation Comments MCHC (test code = MCHC) 32.7 32.0-36.0 [facility]LtyvphyMDYIGAOQZZ5382-37-22 20:23:00 Test Item Value Reference Range Interpretation Comments MCH (test code = MCH) 30.7 pg 27.0-31.0 [facility] AustinPllilmnWOAYDAGOJZ3086-36-55 20:23:00 Test Item Value Reference Range Interpretation Comments Platelet (test code = Platelet) 199 133-450 [facility] AustinJnawhdhTAXEQDCMEC0199-14-02 20:23:00 Test Item Value Reference Range Interpretation Comments MPV (test code = MPV) 10.0 7.4-10.4 [facility] AustinVefhngzZTVPUCUECW8738-83-85 20:23:00 Test Item Value Reference Range Interpretation Comments Hgb (test code = Hgb) 13.3 14.0-18.0 [facility] AustinVxxxacvCKWBIGSBZY0716-52-03 20:23:00 Test Item Value Reference Range Interpretation Comments RBC (test code = RBC) 4.31 4.70-6.10 [facility] AustinAbnzillRALVKUZXMC4588-86-00 20:23:00 Test Item Value Reference Range Interpretation Comments Hct (test code = Hct) 40.6 42.0-54.0 [facility] AustinKilootwDUZTGWDKLZ8349-42-25 20:23:00 Test Item Value Reference Range Interpretation Comments WBC (test code = WBC) 12.4 3.7-10.4 [facility] AustinHlvjbvpLGPTVTAMKM8371-37-24 20:23:00 Test Item Value Reference Range Interpretation Comments INR (test code = INR) 1.10 1 0.85-1.17 [facility] HospitalEmintenNESZIWZUHE9291-81-10 20:23:00 Test Item Value Reference Range Interpretation Comments PT (test code = PT) 14.2 s 12.0-14.7 [facility] AustinFbwljdgXXGLVZQOPF5424-67-54 20:23:00 Test Item Value Reference Range Interpretation Comments PTT (test code = PTT) 26.1 s 22.9-35.8 [facility]SerifqyTXQTOIWKQH6154-76-16 20:23:00 Test Item Value Reference Range Interpretation Comments Ethanol Lvl (test code = Ethanol Lvl) no gt [facility] HospitalLahdbyyAKQTOCSFGF9110-16-26 20:23:00 Test Item Value Reference Range Interpretation Comments Etoh (%) (test code = Etoh (%)) no gt [facility] RegionNewokcbYPLTEAFCHWBV1209-27-32 20:23:00 Test Item Value Reference Range Interpretation Comments AGAP (test code = AGAP) 9.8 10.0-20.0 [facility] RegionAjubylmZPAMPAYBDIRK7203-65-79 20:23:00 Test Item Value Reference Range Interpretation Comments Globulin (test code = Globulin) 2.9 2.7-4.2 [facility] RegionSkvgqxeOWAIYMZIITMW7123-24-29 20:23:00 Test Item Value Reference Range Interpretation Comments A/G Ratio (test code = A/G Ratio) 1.3 1 0.7-1.6 [facility] RegionHzgrceeOCUOPVTKLUDJ7885-74-91 20:23:00 Test Item Value Reference Range Interpretation Comments B/C Ratio (test code = B/C Ratio) 12 1 6-25 [facility] RegionFqihnvnQINOLAWYHZTL2679-18-96 20:23:00 Test Item Value Reference Range Interpretation Comments eGFR (test code = eGFR) 101 [facility] RegionUcolygaOQDKYGDGCWLK9654-80-61 20:23:00 Test Item Value Reference Range Interpretation Comments Bili Total (test code = Bili Total) 0.5 0.2-1.3 [facility] RegionCzmbzvvFRNCRJWASHWN0686-31-23 20:23:00 Test Item Value Reference Range Interpretation Comments Alk Phos (test code = Alk Phos) 54 39-136 [facility] RegionOhkppskDMZTPVHFTRHK0786-41-46 20:23:00 Test Item Value Reference Range Interpretation Comments Total Protein (test code = Total 6.7 6.4-8.4 Protein) [facility] RegionJalprqnSIVWTZZHDCCC2486-19-47 20:23:00 Test Item Value Reference Range Interpretation Comments Albumin Lvl (test code = Albumin Lvl) 3.8 3.5-5.0 [facility] RegionOsosvmkNIFFKRPYQNST4891-64-04 20:23:00 Test Item Value Reference Range Interpretation Comments Calcium Lvl (test code = Calcium Lvl) 8.2 8.5-10.5 [facility] RegionRrbzpteGPKRPICMPLAL1928-71-26 20:23:00 Test Item Value Reference Range Interpretation Comments ALT (test code = ALT) 20 See_Comment [Auto mated message] The system which ge nerated this result transmit ezequiel reference range : <=65. The reference range was not used to interpr et this result as grace l/abnormal. [facility] RegionJvbqgjtZWNJSZHEYVFI1214-75-78 20:23:00 Test Item Value Reference Range Interpretation Comments AST (test code = AST) 30 See_Comment [Auto mated message] The system which ge nerated this result transmit ezequiel reference range : <=37. The reference range was not used to interpr et this result as grace l/abnormal. [facility] RegionAfhmvdbCUVBXJAQAJVS6033-79-97 20:23:00 Test Item Value Reference Range Interpretation Comments Sodium Lvl (test code = Sodium Lvl) 142 135-145 [facility] RegionToxpctwOGTSOOLOIJDG1284-14-83 20:23:00 Test Item Value Reference Range Interpretation Comments Potassium Lvl (test code = Potassium 4.8 3.5-5.1 Lvl) [facility] RegionYpnjxdcFMDWATOVGYTJ8277-98-38 20:23:00 Test Item Value Reference Range Interpretation Comments Creatinine Lvl (test code = Creatinine 1.00 0.50-1.40 Lvl) [facility] RegionHemtbmsKCKIMQKQEORG0775-87-33 20:23:00 Test Item Value Reference Range Interpretation Comments Chloride Lvl (test code = Chloride Lvl) 111 95-109 [facility] RegionNhmebtmYXMTRZNNIYTK7019-10-53 20:23:00 Test Item Value Reference Range Interpretation Comments CO2 (test code = CO2) 26 24-32 [facility] RegionJgqxddePTUGCADUCEBU9499-94-21 20:23:00 Test Item Value Reference Range Interpretation Comments Glucose Lvl (test code = Glucose Lvl) 93 70-99 [facility] RegionWjxnhthLRXHZENRAEBK0932-43-92 20:23:00 Test Item Value Reference Range Interpretation Comments BUN (test code = BUN) 12 7-22 [facility] AustinCmxgberBZDTOMMSVX6788-96-25 20:23:00 Test Item Value Reference Range Interpretation Comments Basophils # (test code 0.1 See_Comment [Aut omated message] The = Basophils #) system which generated this result tra nsmitted reference range : <=0.2. The reference r tony was not used to int erpret this result as normal/abnormal . [facility] AustinCnhusrcZWGIJXOLLE5349-74-68 20:23:00 Test Item Value Reference Range Interpretation Comments Eosinophils # (test code 0.1 See_Comment [A utomated message] The = Eosinophils #) system whic h generated this result tra nsmitted reference range : <=0.5. The reference r tony was not used to int erpret this result as normal/abnormal . [facility] AustinPpabdswWFAQEPJTXE8696-83-86 20:23:00 Test Item Value Reference Range Interpretation Comments Lymphocytes (test code = Lymphocytes) 16.2 20.0-40.0 [facility] AustinOiuuhurUKBGMINXCG6527-26-47 20:23:00 Test Item Value Reference Range Interpretation Comments Monocytes (test code = Monocytes) 4.7 2.0-12.0 [facility] AustinRvmqwaiMCKMZQWZNK5119-09-25 20:23:00 Test Item Value Reference Range Interpretation Comments Neutrophils # (test code = Neutrophils 9.7 1.5-8.1 #) [facility] AustinZqvsvveSTDPPEAGNE0142-90-76 20:23:00 Test Item Value Reference Range Interpretation Comments Eosinophils (test code = 0.7 See_Comment [A utomated message] The Eosinophils) system which ge nerated this result tra nsmitted reference range : <=4.0. The reference r tony was not used to int erpret this result as normal/abnormal . [facility] AustinKflajkpNOSUCZYTDJ9486-82-53 20:23:00 Test Item Value Reference Range Interpretation Comments Basophils (test code = 0.6 See_Comment [Aut omated message] The Basophils) system which ge nerated this result tra nsmitted reference range : <=1.0. The reference r tony was not used to int erpret this result as normal/abnormal . [facility] AustinHonwzfwDBXQPZVWWI0905-56-27 20:23:00 Test Item Value Reference Range Interpretation Comments Segs (test code = Segs) 77.8 45.0-75.0 [facility] AustinZutduwsQGMYBVJMKF1109-70-26 20:23:00 Test Item Value Reference Range Interpretation Comments Monocytes # (test code 0.6 See_Comment [Aut omated message] The = Monocytes #) system which generated this result tra nsmitted reference range : <=0.8. The reference r tony was not used to int erpret this result as normal/abnormal . [facility] AustinJavdizgLJIRZSEMAW9648-38-37 20:23:00 Test Item Value Reference Range Interpretation Comments Lymphocytes # (test code = Lymphocytes 2.0 1.0-5.5 #) [facility] AustinHkqmizvVZNJLEIDZZ7748-55-03 20:23:00 Test Item Value Reference Range Interpretation Comments RDW (test code = RDW) 13.2 11.5-14.5 [facility] AustinKaqenkdYKNSGVUZAU4517-39-13 20:23:00 Test Item Value Reference Range Interpretation Comments MCV (test code = MCV) 94.1 80.0-94.0 [facility] AustinXfxteekIMNWROAMSW2364-90-71 20:23:00 Test Item Value Reference Range Interpretation Comments MCHC (test code = MCHC) 32.7 32.0-36.0 [facility] AustinYmnrcdoCQWDXAKXZG0881-23-71 20:23:00 Test Item Value Reference Range Interpretation Comments MCH (test code = MCH) 30.7 pg 27.0-31.0 [facility] AustinZpjpegqDVMKJUWOYP3582-79-78 20:23:00 Test Item Value Reference Range Interpretation Comments Platelet (test code = Platelet) 199 133-450 [facility] AustinBqmhthjGPZJHKHWBA9147-90-27 20:23:00 Test Item Value Reference Range Interpretation Comments MPV (test code = MPV) 10.0 7.4-10.4 [facility] AustinImktbmyWYBBXVLAGZ3433-84-90 20:23:00 Test Item Value Reference Range Interpretation Comments Hgb (test code = Hgb) 13.3 14.0-18.0 [facility] AustinXdkzrzpMSQXATVLPB8241-91-42 20:23:00 Test Item Value Reference Range Interpretation Comments RBC (test code = RBC) 4.31 4.70-6.10 [facility] AustinJkfigsiGXNKSYHEIA3747-27-46 20:23:00 Test Item Value Reference Range Interpretation Comments Hct (test code = Hct) 40.6 42.0-54.0 [facility] AustinZmdchflBQVINFDITH7304-63-96 20:23:00 Test Item Value Reference Range Interpretation Comments WBC (test code = WBC) 12.4 3.7-10.4 [facility] AustinDdqemrbEJGUYQAXSW3539-80-42 20:23:00 Test Item Value Reference Range Interpretation Comments INR (test code = INR) 1.10 1 0.85-1.17 [facility] AustinDglzcekUASISGWKMZ1721-99-10 20:23:00 Test Item Value Reference Range Interpretation Comments PT (test code = PT) 14.2 s 12.0-14.7 [facility] AustinTysczlqAORUGEXKHY4371-97-30 20:23:00 Test Item Value Reference Range Interpretation Comments PTT (test code = PTT) 26.1 s 22.9-35.8 [facility]qouzolWHNKYPKCGO4907-66-37 20:23:00 Test Item Value Reference Range Interpretation Comments Ethanol Lvl (test code = Ethanol Lvl) [facility]ld[facility]wpQWKGRASGSD8576-88-13 20:23:00 Test Item Value Reference Range Interpretation Comments Etoh (%) (test code = Etoh (%)) no gt [facility]JmqvfkmOFVRPNEMZOXG3922-66-18 20:23:00 Test Item Value Reference Range Interpretation Comments AGAP (test code = AGAP) 9.8 10.0-20.0 [facility] RegionHojfqrkXKMRXCUIHRPO5805-64-79 20:23:00 Test Item Value Reference Range Interpretation Comments Globulin (test code = Globulin) 2.9 2.7-4.2 [facility] RegionVfeqxlzNMWFCEVDLJGK9954-24-17 20:23:00 Test Item Value Reference Range Interpretation Comments A/G Ratio (test code = A/G Ratio) 1.3 1 0.7-1.6 [facility] RegionRblxtkgYVGZGZFDRKUG8981-80-35 20:23:00 Test Item Value Reference Range Interpretation Comments B/C Ratio (test code = B/C Ratio) 12 1 6-25 [facility] RegionGnoxuzlKRTKLDSDAYPM9623-72-40 20:23:00 Test Item Value Reference Range Interpretation Comments eGFR (test code = eGFR) 101 [facility] RegionJapxhgbFEPFNCVYCRNO0245-20-24 20:23:00 Test Item Value Reference Range Interpretation Comments Bili Total (test code = Bili Total) 0.5 0.2-1.3 [facility] RegionLcmqfinDQDBGBHRNQEV4500-91-65 20:23:00 Test Item Value Reference Range Interpretation Comments Alk Phos (test code = Alk Phos) 54 39-136 [facility] RegionKjbosozHUZFBDFNTAQL6637-70-91 20:23:00 Test Item Value Reference Range Interpretation Comments Total Protein (test code = Total 6.7 6.4-8.4 Protein) [facility] RegionJdlpibcLMYGZQVNFMXM3319-14-99 20:23:00 Test Item Value Reference Range Interpretation Comments Albumin Lvl (test code = Albumin Lvl) 3.8 3.5-5.0 [facility] RegionDwfpvdoVCOIRTFQBPUD2840-96-67 20:23:00 Test Item Value Reference Range Interpretation Comments Calcium Lvl (test code = Calcium Lvl) 8.2 8.5-10.5 [facility] RegionLvjotozBTWAECVEDWAS2963-52-53 20:23:00 Test Item Value Reference Range Interpretation Comments ALT (test code = ALT) 20 See_Comment [Auto mated message] The system which ge nerated this result transmit ezequiel reference range : <=65. The reference range was not used to interpr et this result as grace l/abnormal. [facility] RegionVueaohwNZYJUTHDEFRG1383-02-67 20:23:00 Test Item Value Reference Range Interpretation Comments AST (test code = AST) 30 See_Comment [Auto mated message] The system which ge nerated this result transmit ezequiel reference range : <=37. The reference range was not used to interpr et this result as grace l/abnormal. [facility] RegionJfbdmcvOTWCFUKTUVHZ0345-86-43 20:23:00 Test Item Value Reference Range Interpretation Comments Sodium Lvl (test code = Sodium Lvl) 142 135-145 [facility] RegionUjouhjvNUEPMXGMFAWB3601-38-31 20:23:00 Test Item Value Reference Range Interpretation Comments Potassium Lvl (test code = Potassium 4.8 3.5-5.1 Lvl) [facility] RegionBlqyocgXFFEWHJNOAUF4165-36-24 20:23:00 Test Item Value Reference Range Interpretation Comments Creatinine Lvl (test code = Creatinine 1.00 0.50-1.40 Lvl) [facility] RegionZevnshzUGJCQBMMCTZB7141-65-91 20:23:00 Test Item Value Reference Range Interpretation Comments Chloride Lvl (test code = Chloride Lvl) 111 95-109 [facility] RegionVxvbkssNRJNESKVGMOQ5535-60-82 20:23:00 Test Item Value Reference Range Interpretation Comments CO2 (test code = CO2) 26 24-32 [facility] RegionYqxblyjNCNWPWSPBBIV0061-72-57 20:23:00 Test Item Value Reference Range Interpretation Comments Glucose Lvl (test code = Glucose Lvl) 93 70-99 [facility] RegionMbtnsalWJTMJXSZRKDP0144-20-23 20:23:00 Test Item Value Reference Range Interpretation Comments BUN (test code = BUN) 12 7-22 [facility] AustinGzoijluFPHJGOQYSQ4548-40-99 20:23:00 Test Item Value Reference Range Interpretation Comments Basophils # (test code 0.1 See_Comment [Aut omated message] The = Basophils #) system which generated this result tra nsmitted reference range : <=0.2. The reference r tony was not used to int erpret this result as normal/abnormal . [facility] AustinRwctugcEHTHFWTKWF6600-69-51 20:23:00 Test Item Value Reference Range Interpretation Comments Eosinophils # (test code 0.1 See_Comment [A utomated message] The = Eosinophils #) system whic h generated this result tra nsmitted reference range : <=0.5. The reference r tony was not used to int erpret this result as normal/abnormal . [facility] AustinMsmdjetKQEVLTEPOI6863-98-63 20:23:00 Test Item Value Reference Range Interpretation Comments Lymphocytes (test code = Lymphocytes) 16.2 20.0-40.0 [facility] AustinUlnqpssDTEJVCXZEG8837-05-33 20:23:00 Test Item Value Reference Range Interpretation Comments Monocytes (test code = Monocytes) 4.7 2.0-12.0 [facility] AustinEsfwqubVUKUQDADVY2779-36-60 20:23:00 Test Item Value Reference Range Interpretation Comments Neutrophils # (test code = Neutrophils 9.7 1.5-8.1 #) [facility] AustinTewbzhnXHYLPFFHYO2689-89-80 20:23:00 Test Item Value Reference Range Interpretation Comments Eosinophils (test code = 0.7 See_Comment [A utomated message] The Eosinophils) system which ge nerated this result tra nsmitted reference range : <=4.0. The reference r tony was not used to int erpret this result as normal/abnormal . [facility] RegionFvdwzikRPVSLRQSTODJ3647-33-69 20:23:00 Test Item Value Reference Range Interpretation Comments AGAP (test code = AGAP) 9.8 10.0-20.0 [facility] RegionCbffjuwLJZSDOMHSAXD8330-84-18 20:23:00 Test Item Value Reference Range Interpretation Comments Globulin (test code = Globulin) 2.9 2.7-4.2 [facility] RegionCcxrgtoISGXCDARGDFY6750-98-27 20:23:00 Test Item Value Reference Range Interpretation Comments A/G Ratio (test code = A/G Ratio) 1.3 1 0.7-1.6 [facility] RegionMugpfaaOBLVVWVQXBGC3056-71-29 20:23:00 Test Item Value Reference Range Interpretation Comments B/C Ratio (test code = B/C Ratio) 12 1 6-25 [facility] RegionCmklstoVVBWJHQBFFCV0588-81-83 20:23:00 Test Item Value Reference Range Interpretation Comments eGFR (test code = eGFR) 101 [facility] RegionGjerjptVBFTQAKTYCHZ7832-33-78 20:23:00 Test Item Value Reference Range Interpretation Comments Bili Total (test code = Bili Total) 0.5 0.2-1.3 [facility] AustinQwqdejxYBSSZDMWGZ2479-77-24 20:23:00 Test Item Value Reference Range Interpretation Comments Basophils (test code = 0.6 See_Comment [Aut omated message] The Basophils) system which ge nerated this result tra nsmitted reference range : <=1.0. The reference r tony was not used to int erpret this result as normal/abnormal . [facility] RegionMovfyqtDKZPSPKCPRBF4140-22-33 20:23:00 Test Item Value Reference Range Interpretation Comments Alk Phos (test code = Alk Phos) 54 39-136 [facility] RegionFcprckgQFGPGAEDBEEX3081-61-75 20:23:00 Test Item Value Reference Range Interpretation Comments Total Protein (test code = Total 6.7 6.4-8.4 Protein) [facility] RegionEepgqsdNKTVEPWZOYUY4069-01-20 20:23:00 Test Item Value Reference Range Interpretation Comments Albumin Lvl (test code = Albumin Lvl) 3.8 3.5-5.0 [facility] RegionJocotsrSONXYUPJQOAS6136-50-45 20:23:00 Test Item Value Reference Range Interpretation Comments Calcium Lvl (test code = Calcium Lvl) 8.2 8.5-10.5 [facility] RegionIjofwcvHGACWKCGBXZI1608-13-03 20:23:00 Test Item Value Reference Range Interpretation Comments ALT (test code = ALT) 20 See_Comment [Auto mated message] The system which ge nerated this result transmit ezequiel reference range : <=65. The reference range was not used to interpr et this result as grace l/abnormal. [facility] RegionRvigsziWKMESUIHRZRB5345-72-11 20:23:00 Test Item Value Reference Range Interpretation Comments AST (test code = AST) 30 See_Comment [Auto mated message] The system which ge nerated this result transmit ezequiel reference range : <=37. The reference range was not used to interpr et this result as grace l/abnormal. [facility] RegionEwmzeydGAPKADIDVKXT2220-32-65 20:23:00 Test Item Value Reference Range Interpretation Comments Sodium Lvl (test code = Sodium Lvl) 142 135-145 [facility] RegionZtseczhRHXSDOFCAGJC7938-73-56 20:23:00 Test Item Value Reference Range Interpretation Comments Potassium Lvl (test code = Potassium 4.8 3.5-5.1 Lvl) [facility] RegionIoisbswHUKQGWINTXDJ0851-52-97 20:23:00 Test Item Value Reference Range Interpretation Comments Creatinine Lvl (test code = Creatinine 1.00 0.50-1.40 Lvl) [facility] RegionTvpcwfuWNWXMHLBRQJH1545-16-70 20:23:00 Test Item Value Reference Range Interpretation Comments Chloride Lvl (test code = Chloride Lvl) 111 95-109 [facility] AustinHusyunnCFGRZEKXVE7443-28-61 20:23:00 Test Item Value Reference Range Interpretation Comments Segs (test code = Segs) 77.8 45.0-75.0 [facility] RegionEbfoarcMPSTRHKIRBRX5955-34-41 20:23:00 Test Item Value Reference Range Interpretation Comments CO2 (test code = CO2) 26 24-32 [facility] RegionFbgkuveNYOTGHNCHIAZ0965-34-22 20:23:00 Test Item Value Reference Range Interpretation Comments Glucose Lvl (test code = Glucose Lvl) 93 70-99 [facility] RegionCqtdujbADQYLVJAMQJU1602-90-52 20:23:00 Test Item Value Reference Range Interpretation Comments BUN (test code = BUN) 12 7-22 [facility] AustinLrjvvuyMICHFEUJEG9785-04-34 20:23:00 Test Item Value Reference Range Interpretation Comments Basophils # (test code 0.1 See_Comment [Aut omated message] The = Basophils #) system which generated this result tra nsmitted reference range : <=0.2. The reference r tony was not used to int erpret this result as normal/abnormal . [facility] AustinRmhuappZMFHZUYTPO6358-79-14 20:23:00 Test Item Value Reference Range Interpretation Comments Eosinophils # (test code 0.1 See_Comment [A utomated message] The = Eosinophils #) system whic h generated this result tra nsmitted reference range : <=0.5. The reference r tony was not used to int erpret this result as normal/abnormal . [facility] AustinLyzkdjlINYYHKUANW7089-21-57 20:23:00 Test Item Value Reference Range Interpretation Comments Lymphocytes (test code = Lymphocytes) 16.2 20.0-40.0 [facility] AustinLxmydjbYOUDEPZAYG9269-75-85 20:23:00 Test Item Value Reference Range Interpretation Comments Monocytes (test code = Monocytes) 4.7 2.0-12.0 [facility] AustinYsrhjswXEWXUFHPMB5480-33-04 20:23:00 Test Item Value Reference Range Interpretation Comments Neutrophils # (test code = Neutrophils 9.7 1.5-8.1 #) [facility] AustinVlampnhUZQAVFCXIM0463-45-14 20:23:00 Test Item Value Reference Range Interpretation Comments Eosinophils (test code = 0.7 See_Comment [A utomated message] The Eosinophils) system which ge nerated this result tra nsmitted reference range : <=4.0. The reference r tony was not used to int erpret this result as normal/abnormal . [facility] AustinHsfrxjyAGCHYSQOSX0385-61-66 20:23:00 Test Item Value Reference Range Interpretation Comments Basophils (test code = 0.6 See_Comment [Aut omated message] The Basophils) system which ge nerated this result tra nsmitted reference range : <=1.0. The reference r tony was not used to int erpret this result as normal/abnormal . [facility] AustinTxachdcJCLXERJPGU4198-42-60 20:23:00 Test Item Value Reference Range Interpretation Comments Monocytes # (test code 0.6 See_Comment [Aut omated message] The = Monocytes #) system which generated this result tra nsmitted reference range : <=0.8. The reference r tony was not used to int erpret this result as normal/abnormal . [facility] AustinYrupnicIRSUCZOIAJ1554-55-71 20:23:00 Test Item Value Reference Range Interpretation Comments Segs (test code = Segs) 77.8 45.0-75.0 [facility] AustinZfrsuheRCLAFNQNDY0131-04-71 20:23:00 Test Item Value Reference Range Interpretation Comments Monocytes # (test code 0.6 See_Comment [Aut omated message] The = Monocytes #) system which generated this result tra nsmitted reference range : <=0.8. The reference r tony was not used to int erpret this result as normal/abnormal . [facility] AustinUqixuqvDJAGRVHOET6628-67-09 20:23:00 Test Item Value Reference Range Interpretation Comments Lymphocytes # (test code = Lymphocytes 2.0 1.0-5.5 #) [facility] AustinXivlonqGPMDAZFFJY9897-41-95 20:23:00 Test Item Value Reference Range Interpretation Comments RDW (test code = RDW) 13.2 11.5-14.5 [facility] AustinIqwjmwgVUSZVLIUNG4115-23-51 20:23:00 Test Item Value Reference Range Interpretation Comments MCV (test code = MCV) 94.1 80.0-94.0 [facility] AustinXzzcojbHFIAMCLHVT6655-04-74 20:23:00 Test Item Value Reference Range Interpretation Comments MCHC (test code = MCHC) 32.7 32.0-36.0 [facility] AustinFqgfexkHBCLREFMDS2495-23-58 20:23:00 Test Item Value Reference Range Interpretation Comments MCH (test code = MCH) 30.7 pg 27.0-31.0 [facility] AustinCsthkyyFIGYDCQABZ5733-12-64 20:23:00 Test Item Value Reference Range Interpretation Comments Platelet (test code = Platelet) 199 133-450 [facility] AustinZblliwpROFJFBKPAM3590-95-43 20:23:00 Test Item Value Reference Range Interpretation Comments MPV (test code = MPV) 10.0 7.4-10.4 [facility] AustinRnqgfivUSXUCOPOYU5773-27-77 20:23:00 Test Item Value Reference Range Interpretation Comments Hgb (test code = Hgb) 13.3 14.0-18.0 [facility] AustinEcblekqSWPRTGQFLD3367-88-09 20:23:00 Test Item Value Reference Range Interpretation Comments Lymphocytes # (test code = Lymphocytes 2.0 1.0-5.5 #) [facility] AustinShximdkPAHUWSAAMR4987-22-50 20:23:00 Test Item Value Reference Range Interpretation Comments RBC (test code = RBC) 4.31 4.70-6.10 [facility] AustinDmmztbnBKTRURMYPE9861-69-43 20:23:00 Test Item Value Reference Range Interpretation Comments Hct (test code = Hct) 40.6 42.0-54.0 [facility] AustinAnwccrlXYDRYSNOMN0352-01-40 20:23:00 Test Item Value Reference Range Interpretation Comments WBC (test code = WBC) 12.4 3.7-10.4 [facility] AustinWerpgwjHFXPENOISI9401-28-44 20:23:00 Test Item Value Reference Range Interpretation Comments INR (test code = INR) 1.10 1 0.85-1.17 [facility] AustinUabonayVBXMZXALRT6319-03-53 20:23:00 Test Item Value Reference Range Interpretation Comments PT (test code = PT) 14.2 s 12.0-14.7 [facility] AustinAmqnyseIFBJJHJMPA9656-26-13 20:23:00 Test Item Value Reference Range Interpretation Comments PTT (test code = PTT) 26.1 s 22.9-35.8 [place] 66648018-09-26 20:23:00 Test Item Value Reference Range Interpretation Comments Ethanol Lvl (test code = Ethanol Lvl) no gt [place] 66648018-09-26 20:23:00 Test Item Value Reference Range Interpretation Comments Etoh (%) (test code = Etoh (%)) no gt [facility] AustinAtuulqnGSXCLUDHAZ1663-40-81 20:23:00 Test Item Value Reference Range Interpretation Comments RDW (test code = RDW) 13.2 11.5-14.5 [facility] AustinQvpzakpVWDIJAZIKL4800-00-91 20:23:00 Test Item Value Reference Range Interpretation Comments MCV (test code = MCV) 94.1 80.0-94.0 [facility] AustinNdpplkoEFOBMEQIRA8666-94-86 20:23:00 Test Item Value Reference Range Interpretation Comments MCHC (test code = MCHC) 32.7 32.0-36.0 [facility] AustinYlshygmTXAANDSLRS8709-61-16 20:23:00 Test Item Value Reference Range Interpretation Comments MCH (test code = MCH) 30.7 pg 27.0-31.0 [facility] AustinXihhuvaIPLJALCJLW3910-58-52 20:23:00 Test Item Value Reference Range Interpretation Comments Platelet (test code = Platelet) 199 133-450 [facility] AustinXfmcdtaLDNBEMRQEA4677-83-82 20:23:00 Test Item Value Reference Range Interpretation Comments MPV (test code = MPV) 10.0 7.4-10.4 [facility] AustinKnnwfgrLJFBVEALWP8829-50-19 20:23:00 Test Item Value Reference Range Interpretation Comments Hgb (test code = Hgb) 13.3 14.0-18.0 [facility] AustinKzocgthNLBFUSUYGY2372-34-08 20:23:00 Test Item Value Reference Range Interpretation Comments RBC (test code = RBC) 4.31 4.70-6.10 [facility] AustinAmgwduoAOXLVZKHUI0986-20-61 20:23:00 Test Item Value Reference Range Interpretation Comments Hct (test code = Hct) 40.6 42.0-54.0 [facility] AustinErekwyxZCNIUXUHBE8098-09-38 20:23:00 Test Item Value Reference Range Interpretation Comments WBC (test code = WBC) 12.4 3.7-10.4 [facility] AustinVdxtllkZNENQZYFUH8573-35-65 20:23:00 Test Item Value Reference Range Interpretation Comments INR (test code = INR) 1.10 1 0.85-1.17 [facility] AustinMfbrxhcFUGRKUKBGP1376-88-68 20:23:00 Test Item Value Reference Range Interpretation Comments PT (test code = PT) 14.2 s 12.0-14.7 [facility] AustinLnymfbdQMJXOZKGTX1065-76-02 20:23:00 Test Item Value Reference Range Interpretation Comments PTT (test code = PTT) 26.1 s 22.9-35.8 [facility]WpdgpuvSDFDLBJEJC3913-32-22 20:23:00 Test Item Value Reference Range Interpretation Comments Ethanol Lvl (test code = Ethanol Lvl) no gt [place] [id number] 20:23:00 Test Item Value Reference Range Interpretation Comments Etoh (%) (test code = Etoh (%)) no gt [facility]XlvtwmwHWQAHRWEVFZU0853-43-20 20:23:00 Test Item Value Reference Range Interpretation Comments AGAP (test code = AGAP) 9.8 10.0-20.0 [facility] RegionVupqyinHKYWMWQDKDZV7299-74-04 20:23:00 Test Item Value Reference Range Interpretation Comments Globulin (test code = Globulin) 2.9 2.7-4.2 [facility] RegionYrzucxfQFMTOHJAYAON3843-21-62 20:23:00 Test Item Value Reference Range Interpretation Comments A/G Ratio (test code = A/G Ratio) 1.3 1 0.7-1.6 [facility] RegionOrkiewzOCHWEBLHFDFA0071-52-64 20:23:00 Test Item Value Reference Range Interpretation Comments B/C Ratio (test code = B/C Ratio) 12 1 6-25 [facility] RegionXqlwcfnXLLAPDNHGFBH5280-60-38 20:23:00 Test Item Value Reference Range Interpretation Comments eGFR (test code = eGFR) 101 [facility] RegionWlsmgjcNVZQUOMUGFMA0495-97-15 20:23:00 Test Item Value Reference Range Interpretation Comments Bili Total (test code = Bili Total) 0.5 0.2-1.3 [facility] RegionRmazzcxPJJAANEIPKUS8921-89-32 20:23:00 Test Item Value Reference Range Interpretation Comments Alk Phos (test code = Alk Phos) 54 39-136 [facility] RegionSntduwiKXTOCKNZXHJJ7106-31-62 20:23:00 Test Item Value Reference Range Interpretation Comments Total Protein (test code = Total 6.7 6.4-8.4 Protein) [facility] RegionRmgqmihVZSVDSCFZELE8763-73-48 20:23:00 Test Item Value Reference Range Interpretation Comments Albumin Lvl (test code = Albumin Lvl) 3.8 3.5-5.0 [facility] RegionMsbvmtkTRAOIWWBWBQL1879-81-41 20:23:00 Test Item Value Reference Range Interpretation Comments Calcium Lvl (test code = Calcium Lvl) 8.2 8.5-10.5 [facility] RegionAlennmjQLDCCUKFRZBG7901-39-13 20:23:00 Test Item Value Reference Range Interpretation Comments ALT (test code = ALT) 20 See_Comment [Auto mated message] The system which ge nerated this result transmit ezequiel reference range : <=65. The reference range was not used to interpr et this result as grace l/abnormal. [facility] RegionEqdhkxvAWGGSZNBGOOX7891-62-27 20:23:00 Test Item Value Reference Range Interpretation Comments AST (test code = AST) 30 See_Comment [Auto mated message] The system which ge nerated this result transmit ezequiel reference range : <=37. The reference range was not used to interpr et this result as grace l/abnormal. [facility] RegionPgxmzibGPOKCHBAOKBQ7828-71-08 20:23:00 Test Item Value Reference Range Interpretation Comments Sodium Lvl (test code = Sodium Lvl) 142 135-145 [facility] RegionFwcqdzzUORUYXQEMQEI6823-01-62 20:23:00 Test Item Value Reference Range Interpretation Comments Potassium Lvl (test code = Potassium 4.8 3.5-5.1 Lvl) [facility] RegionOvrhaioTMIVUWNYVZYQ5131-27-80 20:23:00 Test Item Value Reference Range Interpretation Comments Creatinine Lvl (test code = Creatinine 1.00 0.50-1.40 Lvl) [facility] RegionCjgojaxSJBBQMZLFSDR5360-73-44 20:23:00 Test Item Value Reference Range Interpretation Comments Chloride Lvl (test code = Chloride Lvl) 111 95-109 [facility] RegionWhsosyeSONMTZUVVXFM1508-76-41 20:23:00 Test Item Value Reference Range Interpretation Comments CO2 (test code = CO2) 26 24-32 [facility] RegionYklqksaWRRJZCKXZPYM7837-90-87 20:23:00 Test Item Value Reference Range Interpretation Comments Glucose Lvl (test code = Glucose Lvl) 93 70-99 [facility] RegionLsbyvieOOJOFGLDEIRU6797-68-93 20:23:00 Test Item Value Reference Range Interpretation Comments BUN (test code = BUN) 12 7-22 [facility] AustinQphrtmuGCJPWVUTJF2185-90-05 20:23:00 Test Item Value Reference Range Interpretation Comments Basophils # (test code 0.1 See_Comment [Aut omated message] The = Basophils #) system which generated this result tra nsmitted reference range : <=0.2. The reference r tony was not used to int erpret this result as normal/abnormal . [facility] AustinWxiiexpDZMPYMDXRY7352-65-94 20:23:00 Test Item Value Reference Range Interpretation Comments Eosinophils # (test code 0.1 See_Comment [A utomated message] The = Eosinophils #) system whic h generated this result tra nsmitted reference range : <=0.5. The reference r tony was not used to int erpret this result as normal/abnormal . [facility] METABOLIC PANEL 2017-06-23 13:15:00 Test Item Value [...] 09D) 8.8 mg/dL 8.3-9.5 CBC (INCLUDES AUTOMATED DIFFERENTIAL)*[id number] 13:04:00 Test Item Value Reference Range Interpretation [...] 2 VIEW *WW*2017-06-23 12:51:56Exam: Chest 2 viewsLocation: [id number]: cough, recent pneumonia.Comparison: 10/23/2016.Findings:The lungs are clear. Central peribronchial cuffing is present. No infiltrate oreffusion is seen. The pulmonary vasculature is normal. The heart size isnormal. The mediastinal silhouette is unremarkable. Thebony thorax is intact.Impression:Bronchitis .CT STONE PROTOCOL [id number] 01:06:08AFTER HOURS SERVICE ON: 06/22/2017 1:03 AMCT Scan of the Abdomen and Pelvis Without ContrastLocation Code [id number]: L flank painTechnique: Axial and reconstructed coronal [...] Noinflammatory changes seen.U/S TESTICULAR 2017-06-22 00:58:11U/S TESTICULARLocation: [id number] hours services provided 06/22/2017 12:56 AMIndication: L [...] with no acute testicular or epididymalabnormality.AMYLASE AND [id number] 00:33:00 Test Item Value Reference Range Interpretation Comments AMYLASE (test code = 10A) 65 U/L 28-100 LIPASE (test code = 60A) 140 IU/L 73-393 COMPREHENSIVE METABOLIC [id number] 00:33:00 Test Item Value Reference Range Interpretation [...] (test code = 31A) 29 IU/L <=78 [id number] 00:31:00 Test Item Value Reference Range Interpretation [...] RBC MORPH (test code = RBCMOR) NORMAL [id number] 00:46:00 Test Item Value Reference Range Interpretation Comments Hct (test code = Hct) 47.3 42.0-54.0 [facility]AnicyhpRGOBMKYYWG2303-62-75 00:46:00 Test Item Value Reference Range Interpretation Comments Hgb (test code = Hgb) 16.2 14.0-18.0 [facility] AustinSiepbaqVEGHZHMDHZ4427-26-23 00:46:00 Test Item Value Reference Range Interpretation Comments MCV (test code = MCV) 95.2 80.0-94.0 [facility] AustinVhhjklrCSJNLYOQKS6394-80-83 00:46:00 Test Item Value Reference Range Interpretation Comments WBC (test code = WBC) 10.2 3.7-10.4 [facility] 00:46:00 Test Item Value Reference Range Interpretation Comments RBC (test code = RBC) 4.97 4.70-6.10 [facility] AND [id number] 00:46:00 Test Item Value Reference Range Interpretation Comments UA Urobilinogen (test code = UA <=1.0 mg/dL 0.1-1.0 Urobilinogen) [facility] AND [id number] 00:46:00 Test Item Value Reference Range Interpretation Comments UA Nitrite (test code Negative (11/18/16 7:46 = UA Nitrite) PM) [facility] AND [id number] 00:46:00 Test Item Value Reference Range Interpretation Comments UA WBC (test code = 2 See_Comment [Automa ezequiel message] The UA WBC) system which ge nerated this result transmit ezequiel reference range : <=5. The reference range was not used to interpr et this result as grace l/abnormal. [facility] AND [id number] 00:46:00 Test Item Value Reference Range Interpretation Comments UA Sq Epi (test code = UA Sq Occasional /LPF Epi) [facility] AND [id number] 00:46:00 Test Item Value Reference Range Interpretation Comments UA Blood (test code = Negative (11/18/16 7:46 UA Blood) PM) [facility] AND [id number] 00:46:00 Test Item Value Reference Range Interpretation Comments UA Leuk Est (test Negative (11/18/16 7:46 code = UA Leuk Est) PM) [facility] AND [id number] 00:46:00 Test Item Value Reference Range Interpretation Comments UA Bili (test code = Negative *NA*(11/18/16 UA Bili) 7:46 PM) [facility] AND [id number] 00:46:00 Test Item Value Reference Range Interpretation Comments UA Protein (test code = UA Negative mg/dL Protein) [facility] AND [id number] 00:46:00 Test Item Value Reference Range Interpretation Comments UA pH (test code = UA pH) 5.0 5.0-8.0 [facility] AND [id number] 00:46:00 Test Item Value Reference Range Interpretation Comments UA Ketones (test code = UA Ketones) 20 mg/dL [facility] AND [id number] 00:46:00 Test Item Value Reference Range Interpretation Comments UA Glucose (test code = UA Negative mg/dL Glucose) [facility] AND [id number] 00:46:00 Test Item Value Reference Range Interpretation Comments UA Spec Grav (test code = UA Spec Grav) 1.032 [facility] AND [id number] 00:46:00 Test Item Value Reference Range Interpretation Comments UA Mucus (test code = UA Mucus) Many /LPF [facility] AND [id number] 00:46:00 Test Item Value Reference Range Interpretation Comments UA RBC (test code = 1 See_Comment [Automa ezequiel message] The UA RBC) system which ge nerated this result transmit ezequiel reference range : <=2. The reference range was not used to interpr et this result as grace l/abnormal. [facility] AND [id number] 00:46:00 Test Item Value Reference Range Interpretation Comments UA Color (test code = Yellow *NA*(11/18/16 UA Color) 7:46 PM) [facility] AND [id number] 00:46:00 Test Item Value Reference Range Interpretation Comments UA Turbidity (test code Slight *ABN*(11/18/16 = UA Turbidity) 7:46 PM) [facility]2017-06-19 00:46:00 Test Item Value Reference Range Interpretation Comments B/C Ratio (test code = B/C Ratio) 14 6-25 [facility]2017-06-19 00:46:00 Test Item Value Reference Range Interpretation Comments A/G Ratio (test code = A/G Ratio) 1.2 0.7-1.6 [facility]2017-06-19 00:46:00 Test Item Value Reference Range Interpretation Comments Globulin (test code = Globulin) 3.6 2.7-4.2 [facility]2017-06-19 00:46:00 Test Item Value Reference Range Interpretation Comments AGAP (test code = AGAP) 11.0 10.0-20.0 [facility]2017-06-19 00:46:00 Test Item Value Reference Range Interpretation Comments eGFR (test code = eGFR) 106 [facility]2017-06-19 00:46:00 Test Item Value Reference Range Interpretation Comments Albumin Lvl (test code = Albumin Lvl) 4.2 3.5-5.0 [facility]2017-06-19 00:46:00 Test Item Value Reference Range Interpretation Comments Total Protein (test code = Total 7.8 6.4-8.4 Protein) [facility]2017-06-19 00:46:00 Test Item Value Reference Range Interpretation Comments ALT (test code = ALT) 22 See_Comment [Auto mated message] The system which ge nerated this result transmit ezequiel reference range : <=65. The reference range was not used to interpr et this result as grace l/abnormal. [facility]2017-06-19 00:46:00 Test Item Value Reference Range Interpretation Comments Alk Phos (test code = Alk Phos) 72 39-136 [facility]2017-06-19 00:46:00 Test Item Value Reference Range Interpretation Comments Bili Total (test code = Bili Total) 0.6 0.2-1.3 [facility]2017-06-19 00:46:00 Test Item Value Reference Range Interpretation Comments AST (test code = AST) 15 See_Comment [Auto mated message] The system which ge nerated this result transmit ezequiel reference range : <=37. The reference range was not used to interpr et this result as grace l/abnormal. [facility]2017-06-19 00:46:00 Test Item Value Reference Range Interpretation Comments Potassium Lvl (test code = Potassium 4.0 3.5-5.1 Lvl) [facility]2017-06-19 00:46:00 Test Item Value Reference Range Interpretation Comments Chloride Lvl (test code = Chloride Lvl) 108 95-109 [facility]2017-06-19 00:46:00 Test Item Value Reference Range Interpretation Comments CO2 (test code = CO2) 26 24-32 [facility]2017-06-19 00:46:00 Test Item Value Reference Range Interpretation Comments Calcium Lvl (test code = Calcium Lvl) 9.4 8.5-10.5 [facility]2017-06-19 00:46:00 Test Item Value Reference Range Interpretation Comments Glucose Lvl (test code = Glucose Lvl) 108 70-99 [facility]2017-06-19 00:46:00 Test Item Value Reference Range Interpretation Comments Creatinine Lvl (test code = Creatinine 0.97 0.50-1.40 Lvl) [facility]2017-06-19 00:46:00 Test Item Value Reference Range Interpretation Comments BUN (test code = BUN) 14 7-22 [facility]2017-06-19 00:46:00 Test Item Value Reference Range Interpretation Comments Sodium Lvl (test code = Sodium Lvl) 141 135-145 [facility]2017-06-19 00:46:00 Test Item Value Reference Range Interpretation Comments Lipase Lvl (test code = Lipase Lvl) 197 73-393 [facility] AustinIqmxrggHOOUCWRDKO7021-62-54 00:46:00 Test Item Value Reference Range Interpretation Comments Lymphocytes (test code = Lymphocytes) 18.8 20.0-40.0 [facility] AustinZhapmqiXXPUSEPSAF6582-89-91 00:46:00 Test Item Value Reference Range Interpretation Comments Segs (test code = Segs) 70.6 45.0-75.0 [facility] AustinRuzuxqiZALDTNNWWU3404-67-42 00:46:00 Test Item Value Reference Range Interpretation Comments Eosinophils # (test code 0.2 See_Comment [A utomated message] The = Eosinophils #) system [facility] generated this result tra nsmitted reference range : <=0.5. The reference r tony was not used to int erpret this result as normal/abnormal . [facility] AustinKrylxirERBVSQKLIH6605-36-68 00:46:00 Test Item Value Reference Range Interpretation Comments Monocytes # (test code 0.8 See_Comment [Aut omated message] The = Monocytes #) system which generated this result tra nsmitted reference range : <=0.8. The reference r tony was not used to int erpret this result as normal/abnormal . [facility] AustinZfcqbmsINBTRIOPMQ0772-04-34 00:46:00 Test Item Value Reference Range Interpretation Comments Monocytes (test code = Monocytes) 8.3 2.0-12.0 [facility] AustinEykoesiNLGQXFGGCY6724-42-93 00:46:00 Test Item Value Reference Range Interpretation Comments Eosinophils (test code = 2.0 See_Comment [A utomated message] The Eosinophils) system which ge nerated this result tra nsmitted reference range : <=4.0. The reference r tony was not used to int erpret this result as normal/abnormal . [facility] AustinVvxflsyDCFFQFGNUG2451-27-45 00:46:00 Test Item Value Reference Range Interpretation Comments Basophils (test code = 0.3 See_Comment [Aut omated message] The Basophils) system which ge nerated this result tra nsmitted reference range : <=1.0. The reference r tony was not used to int erpret this result as normal/abnormal . [facility] AustinSoutzfdQGNZAECYZT5495-87-13 00:46:00 Test Item Value Reference Range Interpretation Comments Segs-Bands # (test code = Segs-Bands #) 7.2 1.5-8.1 [facility] AustinNfralhoELBBGSJYJY9697-22-33 00:46:00 Test Item Value Reference Range Interpretation Comments Lymphocytes # (test code = Lymphocytes 1.9 1.0-5.5 #) [facility] AustinSceptogCKFPZCPMOP9197-83-07 00:46:00 Test Item Value Reference Range Interpretation Comments MCHC (test code = MCHC) 34.2 32.0-36.0 [facility] AustinDvggnutGKUQORSPWZ9025-41-55 00:46:00 Test Item Value Reference Range Interpretation Comments MPV (test code = MPV) 9.8 7.4-10.4 [facility] AustinSofegpbYECSOIQHVD6258-63-15 00:46:00 Test Item Value Reference Range Interpretation Comments Platelet (test code = Platelet) 189 133-450 [facility] AustinAjwoylvAOHBIJFEIF8626-24-91 00:46:00 Test Item Value Reference Range Interpretation Comments RDW (test code = RDW) 13.8 11.5-14.5 [facility] AustinZpyiisqDRMSYKEEGZ7274-60-56 00:46:00 Test Item Value Reference Range Interpretation Comments MCH (test code = MCH) 32.6 pg 27.0-31.0 [facility] AustinRshkvzaGHRKFUDNSG1861-63-27 00:46:00 Test Item Value Reference Range Interpretation Comments Hct (test code = Hct) 47.3 42.0-54.0 [facility] AustinVyampxxQJCLGJCZMJ3478-43-99 00:46:00 Test Item Value Reference Range Interpretation Comments Hgb (test code = Hgb) 16.2 14.0-18.0 [facility] AustinEwxqljqXPVPTAUOTI0002-51-54 00:46:00 Test Item Value Reference Range Interpretation Comments MCV (test code = MCV) 95.2 80.0-94.0 [facility] AustinSipgfleIQAHSUNDES3707-78-87 00:46:00 Test Item Value Reference Range Interpretation Comments WBC (test code = WBC) 10.2 3.7-10.4 [facility] AustinHhrxpvsOHAKERXJKJ5156-69-75 00:46:00 Test Item Value Reference Range Interpretation Comments RBC (test code = RBC) 4.97 4.70-6.10 [facility] AND [id number] 00:46:00 Test Item Value Reference Range Interpretation Comments UA Urobilinogen (test code = UA <=1.0 mg/dL 0.1-1.0 Urobilinogen) [facility] AND [id number] 00:46:00 Test Item Value Reference Range Interpretation Comments UA Nitrite (test code Negative (11/18/16 7:46 = UA Nitrite) PM) [facility] AND [id number] 00:46:00 Test Item Value Reference Range Interpretation Comments UA WBC (test code = 2 See_Comment [Automa ezequiel message] The UA WBC) system which ge nerated this result transmit ezequiel reference range : <=5. The reference range was not used to interpr et this result as grace l/abnormal. [facility] AND [id number] 00:46:00 Test Item Value Reference Range Interpretation Comments UA Sq Epi (test code = UA Sq Occasional /LPF Epi) [facility] AND [id number] 00:46:00 Test Item Value Reference Range Interpretation Comments UA Blood (test code = Negative (11/18/16 7:46 UA Blood) PM) [facility] AND [id number] 00:46:00 Test Item Value Reference Range Interpretation Comments UA Leuk Est (test Negative (11/18/16 7:46 code = UA Leuk Est) PM) [facility] AND [id number] 00:46:00 Test Item Value Reference Range Interpretation Comments UA Bili (test code = Negative *NA*(11/18/16 UA Bili) 7:46 PM) [facility] [id number] 00:46:00 Test Item Value Reference Range Interpretation Comments UA Protein (test code = UA Negative mg/dL Protein) [facility] [id number] 00:46:00 Test Item Value Reference Range Interpretation Comments UA pH (test code = UA pH) 5.0 5.0-8.0 [facility] [id number] 00:46:00 Test Item Value Reference Range Interpretation Comments UA Ketones (test code = UA Ketones) 20 mg/dL [facility] AND [id number] 00:46:00 Test Item Value Reference Range Interpretation Comments UA Glucose (test code = UA Negative mg/dL Glucose) [facility] AND [id number] 00:46:00 Test Item Value Reference Range Interpretation Comments UA Spec Grav (test code = UA Spec Grav) 1.032 [facility] [id number] 00:46:00 Test Item Value Reference Range Interpretation Comments UA Mucus (test code = UA Mucus) Many /LPF [facility] [id number] 00:46:00 Test Item Value Reference Range Interpretation Comments UA RBC (test code = 1 See_Comment [Automa ezequiel message] The UA RBC) system which ge nerated this result transmit ezequiel reference range : <=2. The reference range was not used to interpr et this result as grace l/abnormal. [facility] [id number] 00:46:00 Test Item Value Reference Range Interpretation Comments UA Color (test code = Yellow *NA*(11/18/16 UA Color) 7:46 PM) [facility] AND [id number] 00:46:00 Test Item Value Reference Range Interpretation Comments UA Turbidity (test code Slight *ABN*(11/18/16 = UA Turbidity) 7:46 PM) [facility]2017-06-19 00:46:00 Test Item Value Reference Range Interpretation Comments B/C Ratio (test code = B/C Ratio) 14 6-25 [facility]2017-06-19 00:46:00 Test Item Value Reference Range Interpretation Comments A/G Ratio (test code = A/G Ratio) 1.2 0.7-1.6 [facility]2017-06-19 00:46:00 Test Item Value Reference Range Interpretation Comments Globulin (test code = Globulin) 3.6 2.7-4.2 [facility]2017-06-19 00:46:00 Test Item Value Reference Range Interpretation Comments AGAP (test code = AGAP) 11.0 10.0-20.0 [facility]2017-06-19 00:46:00 Test Item Value Reference Range Interpretation Comments eGFR (test code = eGFR) 106 [facility]2017-06-19 00:46:00 Test Item Value Reference Range Interpretation Comments Albumin Lvl (test code = Albumin Lvl) 4.2 3.5-5.0 [facility]2017-06-19 00:46:00 Test Item Value Reference Range Interpretation Comments Total Protein (test code = Total 7.8 6.4-8.4 Protein) [facility]2017-06-19 00:46:00 Test Item Value Reference Range Interpretation Comments ALT (test code = ALT) 22 See_Comment [Auto mated message] The system which ge nerated this result transmit ezequiel reference range : <=65. The reference range was not used to interpr et this result as grace l/abnormal. [facility]2017-06-19 00:46:00 Test Item Value Reference Range Interpretation Comments Alk Phos (test code = Alk Phos) 72 39-136 [facility]2017-06-19 00:46:00 Test Item Value Reference Range Interpretation Comments Bili Total (test code = Bili Total) 0.6 0.2-1.3 [facility]2017-06-19 00:46:00 Test Item Value Reference Range Interpretation Comments AST (test code = AST) 15 See_Comment [Auto mated message] The system which ge nerated this result transmit ezequiel reference range : <=37. The reference range was not used to interpr et this result as grace l/abnormal. [facility]2017-06-19 00:46:00 Test Item Value Reference Range Interpretation Comments Potassium Lvl (test code = Potassium 4.0 3.5-5.1 Lvl) [facility]2017-06-19 00:46:00 Test Item Value Reference Range Interpretation Comments Chloride Lvl (test code = Chloride Lvl) 108 95-109 [facility]2017-06-19 00:46:00 Test Item Value Reference Range Interpretation Comments CO2 (test code = CO2) 26 24-32 [facility]2017-06-19 00:46:00 Test Item Value Reference Range Interpretation Comments Calcium Lvl (test code = Calcium Lvl) 9.4 8.5-10.5 [facility]2017-06-19 00:46:00 Test Item Value Reference Range Interpretation Comments Glucose Lvl (test code = Glucose Lvl) 108 70-99 [facility]2017-06-19 00:46:00 Test Item Value Reference Range Interpretation Comments Creatinine Lvl (test code = Creatinine 0.97 0.50-1.40 Lvl) [facility]2017-06-19 00:46:00 Test Item Value Reference Range Interpretation Comments BUN (test code = BUN) 14 7-22 [facility]2017-06-19 00:46:00 Test Item Value Reference Range Interpretation Comments Sodium Lvl (test code = Sodium Lvl) 141 135-145 [facility]2017-06-19 00:46:00 Test Item Value Reference Range Interpretation Comments Lipase Lvl (test code = Lipase Lvl) 197 73-393 [facility] AustinVhrdeirGPFGRCKKQM1791-50-12 00:46:00 Test Item Value Reference Range Interpretation Comments Lymphocytes (test code = Lymphocytes) 18.8 20.0-40.0 [facility] AustinIrwspvdZTVKTRXIIK4577-00-83 00:46:00 Test Item Value Reference Range Interpretation Comments Segs (test code = Segs) 70.6 45.0-75.0 [facility] AustinAiankotJOTBNVCBKI4857-70-41 00:46:00 Test Item Value Reference Range Interpretation Comments Eosinophils # (test code 0.2 See_Comment [A utomated message] The = Eosinophils #) system whic h generated this result tra nsmitted reference range : <=0.5. The reference r tony was not used to int erpret this result as normal/abnormal . [facility] AustinQgteayiQBKVRFKNKN7828-33-32 00:46:00 Test Item Value Reference Range Interpretation Comments Monocytes # (test code 0.8 See_Comment [Aut omated message] The = Monocytes #) system which generated this result tra nsmitted reference range : <=0.8. The reference r tony was not used to int erpret this result as normal/abnormal . [facility] AustinXpwluefZUKQMUGGNG9778-59-21 00:46:00 Test Item Value Reference Range Interpretation Comments Monocytes (test code = Monocytes) 8.3 2.0-12.0 [facility] AustinSbzernoEYBIRKUPJO9543-88-15 00:46:00 Test Item Value Reference Range Interpretation Comments Eosinophils (test code = 2.0 See_Comment [A utomated message] The Eosinophils) system which ge nerated this result tra nsmitted reference range : <=4.0. The reference r tony was not used to int erpret this result as normal/abnormal . [facility] AustinCbnvjaqZBHZCUAPJY5842-28-99 00:46:00 Test Item Value Reference Range Interpretation Comments Basophils (test code = 0.3 See_Comment [Aut omated message] The Basophils) system which ge nerated this result tra nsmitted reference range : <=1.0. The reference r tony was not used to int erpret this result as normal/abnormal . [facility] AustinZwgvysaYQVVQLTBQQ6450-41-44 00:46:00 Test Item Value Reference Range Interpretation Comments Segs-Bands # (test code = Segs-Bands #) 7.2 1.5-8.1 [facility] AustinEjpnkdmPGAIAIAEAF5686-58-63 00:46:00 Test Item Value Reference Range Interpretation Comments Lymphocytes # (test code = Lymphocytes 1.9 1.0-5.5 #) [facility] AustinKcalotjTGPBYCLANW4677-96-47 00:46:00 Test Item Value Reference Range Interpretation Comments MCHC (test code = MCHC) 34.2 32.0-36.0 [facility] AustinGfmusuzWXDROQRLGG5550-23-11 00:46:00 Test Item Value Reference Range Interpretation Comments MPV (test code = MPV) 9.8 7.4-10.4 [facility] AustinSlumqqlDFYXFPKNGT3359-61-50 00:46:00 Test Item Value Reference Range Interpretation Comments Platelet (test code = Platelet) 189 133-450 [facility] AustinPqejfpyOBUZPDPXCE7173-62-55 00:46:00 Test Item Value Reference Range Interpretation Comments RDW (test code = RDW) 13.8 11.5-14.5 [facility] AustinXxqkkscJWQOZIFYOA2642-52-11 00:46:00 Test Item Value Reference Range Interpretation Comments MCH (test code = MCH) 32.6 pg 27.0-31.0 [facility] AustinAfjrwouMCZAEJHKNT0832-17-23 00:46:00 Test Item Value Reference Range Interpretation Comments Hct (test code = Hct) 47.3 42.0-54.0 [facility] AustinIpmxgcxZSLYEZLCIL7168-43-03 00:46:00 Test Item Value Reference Range Interpretation Comments Hgb (test code = Hgb) 16.2 14.0-18.0 [facility] AustinPapqykuHEYGSSTILQ1762-61-78 00:46:00 Test Item Value Reference Range Interpretation Comments MCV (test code = MCV) 95.2 80.0-94.0 [facility] AustinNatflabJCPXQQXGYC5456-76-98 00:46:00 Test Item Value Reference Range Interpretation Comments WBC (test code = WBC) 10.2 3.7-10.4 [facility] AustinChjznjbRTFKYAEPHJ6019-61-64 00:46:00 Test Item Value Reference Range Interpretation Comments RBC (test code = RBC) 4.97 4.70-6.10 [facility] [id number] 00:46:00 Test Item Value Reference Range Interpretation Comments UA Urobilinogen (test code = UA <=1.0 mg/dL 0.1-1.0 Urobilinogen) [facility] [id number] 00:46:00 Test Item Value Reference Range Interpretation Comments UA Nitrite (test code Negative (11/18/16 7:46 = UA Nitrite) PM) [facility] [id number] 00:46:00 Test Item Value Reference Range Interpretation Comments UA WBC (test code = 2 See_Comment [Automa ezequiel message] The UA WBC) system which ge nerated this result transmit ezequiel reference range : <=5. The reference range was not used to interpr et this result as grace l/abnormal. [facility] [id number] 00:46:00 Test Item Value Reference Range Interpretation Comments UA Sq Epi (test code = UA Sq Occasional /LPF Epi) [facility] [id number] 00:46:00 Test Item Value Reference Range Interpretation Comments UA Blood (test code = Negative (11/18/16 7:46 UA Blood) PM) [facility] [id number] 00:46:00 Test Item Value Reference Range Interpretation Comments UA Leuk Est (test Negative (11/18/16 7:46 code = UA Leuk Est) PM) [facility] [id number] 00:46:00 Test Item Value Reference Range Interpretation Comments UA Bili (test code = Negative *NA*(11/18/16 UA Bili) 7:46 PM) [facility] AND [id number] 00:46:00 Test Item Value Reference Range Interpretation Comments UA Protein (test code = UA Negative mg/dL Protein) [facility] AND [id number] 00:46:00 Test Item Value Reference Range Interpretation Comments UA pH (test code = UA pH) 5.0 5.0-8.0 [facility] AND [id number] 00:46:00 Test Item Value Reference Range Interpretation Comments UA Ketones (test code = UA Ketones) 20 mg/dL [facility] AND [id number] 00:46:00 Test Item Value Reference Range Interpretation Comments UA Glucose (test code = UA Negative mg/dL Glucose) [facility] AND [id number] 00:46:00 Test Item Value Reference Range Interpretation Comments UA Spec Grav (test code = UA Spec Grav) 1.032 [facility] AND [id number] 00:46:00 Test Item Value Reference Range Interpretation Comments UA Mucus (test code = UA Mucus) Many /LPF [facility] AND [id number] 00:46:00 Test Item Value Reference Range Interpretation Comments UA RBC (test code = 1 See_Comment [Automa ezequiel message] The UA RBC) system which ge nerated this result transmit ezequiel reference range : <=2. The reference range was not used to interpr et this result as grace l/abnormal. [facility] AND [id number] 00:46:00 Test Item Value Reference Range Interpretation Comments UA Color (test code = Yellow *NA*(11/18/16 UA Color) 7:46 PM) [facility] AND [id number] 00:46:00 Test Item Value Reference Range Interpretation Comments UA Turbidity (test code Slight *ABN*(11/18/16 = UA Turbidity) 7:46 PM) [facility] [id number] 00:46:00 Test Item Value Reference Range Interpretation Comments B/C Ratio (test code = B/C Ratio) 14 6-25 [facility]2017-06-19 00:46:00 Test Item Value Reference Range Interpretation Comments A/G Ratio (test code = A/G Ratio) 1.2 0.7-1.6 [facility] [id number] 00:46:00 Test Item Value Reference Range Interpretation Comments Globulin (test code = Globulin) 3.6 2.7-4.2 [facility]2017-06-19 00:46:00 Test Item Value Reference Range Interpretation Comments AGAP (test code = AGAP) 11.0 10.0-20.0 [facility]2017-06-19 00:46:00 Test Item Value Reference Range Interpretation Comments eGFR (test code = eGFR) 106 [facility]2017-06-19 00:46:00 Test Item Value Reference Range Interpretation Comments Albumin Lvl (test code = Albumin Lvl) 4.2 3.5-5.0 [facility]2017-06-19 00:46:00 Test Item Value Reference Range Interpretation Comments Total Protein (test code = Total 7.8 6.4-8.4 Protein) [facility]2017-06-19 00:46:00 Test Item Value Reference Range Interpretation Comments ALT (test code = ALT) 22 See_Comment [Auto mated message] The system which ge nerated this result transmit ezequiel reference range : <=65. The reference range was not used to interpr et this result as grace l/abnormal. [facility]2017-06-19 00:46:00 Test Item Value Reference Range Interpretation Comments Alk Phos (test code = Alk Phos) 72 39-136 [facility]2017-06-19 00:46:00 Test Item Value Reference Range Interpretation Comments Bili Total (test code = Bili Total) 0.6 0.2-1.3 [facility]2017-06-19 00:46:00 Test Item Value Reference Range Interpretation Comments AST (test code = AST) 15 See_Comment [Auto mated message] The system which ge nerated this result transmit ezequiel reference range : <=37. The reference range was not used to interpr et this result as grace l/abnormal. [facility]2017-06-19 00:46:00 Test Item Value Reference Range Interpretation Comments Potassium Lvl (test code = Potassium 4.0 3.5-5.1 Lvl) [facility]2017-06-19 00:46:00 Test Item Value Reference Range Interpretation Comments Chloride Lvl (test code = Chloride Lvl) 108 95-109 [facility]2017-06-19 00:46:00 Test Item Value Reference Range Interpretation Comments CO2 (test code = CO2) 26 24-32 [facility]2017-06-19 00:46:00 Test Item Value Reference Range Interpretation Comments Calcium Lvl (test code = Calcium Lvl) 9.4 8.5-10.5 [facility]2017-06-19 00:46:00 Test Item Value Reference Range Interpretation Comments Glucose Lvl (test code = Glucose Lvl) 108 70-99 [facility]2017-06-19 00:46:00 Test Item Value Reference Range Interpretation Comments Creatinine Lvl (test code = Creatinine 0.97 0.50-1.40 Lvl) [facility]2017-06-19 00:46:00 Test Item Value Reference Range Interpretation Comments BUN (test code = BUN) 14 7-22 [facility]2017-06-19 00:46:00 Test Item Value Reference Range Interpretation Comments Sodium Lvl (test code = Sodium Lvl) 141 135-145 [facility]2017-06-19 00:46:00 Test Item Value Reference Range Interpretation Comments Lipase Lvl (test code = Lipase Lvl) 197 73-393 [facility]CheotmlGMRIHDXLZQ8401-56-34 00:46:00 Test Item Value Reference Range Interpretation Comments Lymphocytes (test code = Lymphocytes) 18.8 20.0-40.0 [facility] AustinNosxkeyNKTKAPYGWG4776-27-91 00:46:00 Test Item Value Reference Range Interpretation Comments Segs (test code = Segs) 70.6 45.0-75.0 [facility] AustinYoozcfwOXUACOLPVI8613-44-74 00:46:00 Test Item Value Reference Range Interpretation Comments Eosinophils # (test code 0.2 See_Comment [A utomated message] The = Eosinophils #) system whic h generated this result tra nsmitted reference range : <=0.5. The reference r tony was not used to int erpret this result as normal/abnormal . [facility] AustinBthfwtfVRBZYPFJSJ6697-84-20 00:46:00 Test Item Value Reference Range Interpretation Comments Monocytes # (test code 0.8 See_Comment [Aut omated message] The = Monocytes #) system which generated this result tra nsmitted reference range : <=0.8. The reference r tony was not used to int erpret this result as normal/abnormal . [facility] AustinSfmqqrrGCPQMRRZCV9742-94-26 00:46:00 Test Item Value Reference Range Interpretation Comments Monocytes (test code = Monocytes) 8.3 2.0-12.0 [facility] AustinCjwcxajHKEVYLLWGY6374-19-70 00:46:00 Test Item Value Reference Range Interpretation Comments Eosinophils (test code = 2.0 See_Comment [A utomated message] The Eosinophils) system which ge nerated this result tra nsmitted reference range : <=4.0. The reference r tony was not used to int erpret this result as normal/abnormal . [facility] AustinPivdecdILATUBQKJJ9430-02-75 00:46:00 Test Item Value Reference Range Interpretation Comments Basophils (test code = 0.3 See_Comment [Aut omated message] The Basophils) system which ge nerated this result tra nsmitted reference range : <=1.0. The reference r tony was not used to int erpret this result as normal/abnormal . [facility] AustinPzqpbsaTFKYIQRLDO0118-68-85 00:46:00 Test Item Value Reference Range Interpretation Comments Segs-Bands # (test code = Segs-Bands #) 7.2 1.5-8.1 [facility] AustinQbtlxpbRPFMRELZZE9565-43-54 00:46:00 Test Item Value Reference Range Interpretation Comments Lymphocytes # (test code = Lymphocytes 1.9 1.0-5.5 #) [facility] AustinTavtbwyHRIAJWNSGJ2131-00-60 00:46:00 Test Item Value Reference Range Interpretation Comments MCHC (test code = MCHC) 34.2 32.0-36.0 [facility] AustinFunpyebKKFAXRQONQ7649-72-07 00:46:00 Test Item Value Reference Range Interpretation Comments MPV (test code = MPV) 9.8 7.4-10.4 [facility] AustinEvoaembDHQAISHQWZ3280-75-19 00:46:00 Test Item Value Reference Range Interpretation Comments Platelet (test code = Platelet) 189 133-450 [facility] AustinFedavonBMWGXDXMOZ5277-80-96 00:46:00 Test Item Value Reference Range Interpretation Comments RDW (test code = RDW) 13.8 11.5-14.5 [facility] AustinSvreqvqRXKTNRQWLO3006-56-96 00:46:00 Test Item Value Reference Range Interpretation Comments MCH (test code = MCH) 32.6 pg 27.0-31.0 [facility] AustinMhgmgmnZJISPVJEUJ5020-55-68 00:46:00 Test Item Value Reference Range Interpretation Comments Hct (test code = Hct) 47.3 42.0-54.0 [facility] AustinVbfoaeqYVQVFLCRWZ4635-70-19 00:46:00 Test Item Value Reference Range Interpretation Comments Hgb (test code = Hgb) 16.2 14.0-18.0 [facility] AustinHvfmhpuIEESOCJOTZ1535-77-14 00:46:00 Test Item Value Reference Range Interpretation Comments MCV (test code = MCV) 95.2 80.0-94.0 [facility] AustinGquokxnFMQBUIVQSY4095-33-94 00:46:00 Test Item Value Reference Range Interpretation Comments WBC (test code = WBC) 10.2 3.7-10.4 [facility] AustinRqouomaMZHBABMLTN0922-83-84 00:46:00 Test Item Value Reference Range Interpretation Comments RBC (test code = RBC) 4.97 4.70-6.10 [facility] AND [id number] 00:46:00 Test Item Value Reference Range Interpretation Comments UA Urobilinogen (test code = UA <=1.0 mg/dL 0.1-1.0 Urobilinogen) [facility] AND [id number] 00:46:00 Test Item Value Reference Range Interpretation Comments UA Nitrite (test code Negative (11/18/16 7:46 = UA Nitrite) PM) [facility] AND [id number] 00:46:00 Test Item Value Reference Range Interpretation Comments UA WBC (test code = 2 See_Comment [Automa ezequiel message] The UA WBC) system which ge nerated this result transmit ezequiel reference range : <=5. The reference range was not used to interpr et this result as grace l/abnormal. [facility] AND [id number] 00:46:00 Test Item Value Reference Range Interpretation Comments UA Sq Epi (test code = UA Sq Occasional /LPF Epi) [facility] AND [id number] 00:46:00 Test Item Value Reference Range Interpretation Comments UA Blood (test code = Negative (11/18/16 7:46 UA Blood) PM) [facility] AND [id number] 00:46:00 Test Item Value Reference Range Interpretation Comments UA Leuk Est (test Negative (11/18/16 7:46 code = UA Leuk Est) PM) [facility] AND [id number] 00:46:00 Test Item Value Reference Range Interpretation Comments UA Bili (test code = Negative *NA*(11/18/16 UA Bili) 7:46 PM) [facility] AND [id number] 00:46:00 Test Item Value Reference Range Interpretation Comments UA Protein (test code = UA Negative mg/dL Protein) [facility] AND [id number] 00:46:00 Test Item Value Reference Range Interpretation Comments UA pH (test code = UA pH) 5.0 5.0-8.0 [facility] AND [id number] 00:46:00 Test Item Value Reference Range Interpretation Comments UA Ketones (test code = UA Ketones) 20 mg/dL [facility] AND [id number] 00:46:00 Test Item Value Reference Range Interpretation Comments UA Glucose (test code = UA Negative mg/dL Glucose) [facility] AND [id number] 00:46:00 Test Item Value Reference Range Interpretation Comments UA Spec Grav (test code = UA Spec Grav) 1.032 [facility] AND [id number] 00:46:00 Test Item Value Reference Range Interpretation Comments UA Mucus (test code = UA Mucus) Many /LPF [facility] AND [id number] 00:46:00 Test Item Value Reference Range Interpretation Comments UA RBC (test code = 1 See_Comment [Automa ezequiel message] The UA RBC) system which ge nerated this result transmit ezequiel reference range : <=2. The reference range was not used to interpr et this result as grace l/abnormal. [facility] AND [id number] 00:46:00 Test Item Value Reference Range Interpretation Comments UA Color (test code = Yellow *NA*(11/18/16 UA Color) 7:46 PM) [facility] AND [id number] 00:46:00 Test Item Value Reference Range Interpretation Comments UA Turbidity (test code Slight *ABN*(11/18/16 = UA Turbidity) 7:46 PM) [facility] [id number] 00:46:00 Test Item Value Reference Range Interpretation Comments B/C Ratio (test code = B/C Ratio) 14 6-25 [facility] HNIYF5059-95-58 00:46:00 Test Item Value Reference Range Interpretation Comments A/G Ratio (test code = A/G Ratio) 1.2 0.7-1.6 [facility]2017-06-19 00:46:00 Test Item Value Reference Range Interpretation Comments Globulin (test code = Globulin) 3.6 2.7-4.2 [facility]2017-06-19 00:46:00 Test Item Value Reference Range Interpretation Comments AGAP (test code = AGAP) 11.0 10.0-20.0 [facility]2017-06-19 00:46:00 Test Item Value Reference Range Interpretation Comments eGFR (test code = eGFR) 106 [facility]2017-06-19 00:46:00 Test Item Value Reference Range Interpretation Comments Albumin Lvl (test code = Albumin Lvl) 4.2 3.5-5.0 [facility]2017-06-19 00:46:00 Test Item Value Reference Range Interpretation Comments Total Protein (test code = Total 7.8 6.4-8.4 Protein) [facility]2017-06-19 00:46:00 Test Item Value Reference Range Interpretation Comments ALT (test code = ALT) 22 See_Comment [Auto mated message] The system which ge nerated this result transmit ezequiel reference range : <=65. The reference range was not used to interpr et this result as grace l/abnormal. [facility]2017-06-19 00:46:00 Test Item Value Reference Range Interpretation Comments Alk Phos (test code = Alk Phos) 72 39-136 [facility]2017-06-19 00:46:00 Test Item Value Reference Range Interpretation Comments Bili Total (test code = Bili Total) 0.6 0.2-1.3 [facility]2017-06-19 00:46:00 Test Item Value Reference Range Interpretation Comments AST (test code = AST) 15 See_Comment [Auto mated message] The system which ge nerated this result transmit ezequiel reference range : <=37. The reference range was not used to interpr et this result as grace l/abnormal. [facility]2017-06-19 00:46:00 Test Item Value Reference Range Interpretation Comments Potassium Lvl (test code = Potassium 4.0 3.5-5.1 Lvl) [facility]2017-06-19 00:46:00 Test Item Value Reference Range Interpretation Comments Chloride Lvl (test code = Chloride Lvl) 108 95-109 [facility]2017-06-19 00:46:00 Test Item Value Reference Range Interpretation Comments CO2 (test code = CO2) 26 24-32 [facility]2017-06-19 00:46:00 Test Item Value Reference Range Interpretation Comments Calcium Lvl (test code = Calcium Lvl) 9.4 8.5-10.5 [facility]2017-06-19 00:46:00 Test Item Value Reference Range Interpretation Comments Glucose Lvl (test code = Glucose Lvl) 108 70-99 [facility]2017-06-19 00:46:00 Test Item Value Reference Range Interpretation Comments Creatinine Lvl (test code = Creatinine 0.97 0.50-1.40 Lvl) [facility]2017-06-19 00:46:00 Test Item Value Reference Range Interpretation Comments BUN (test code = BUN) 14 7-22 [facility]2017-06-19 00:46:00 Test Item Value Reference Range Interpretation Comments Sodium Lvl (test code = Sodium Lvl) 141 135-145 [facility]2017-06-19 00:46:00 Test Item Value Reference Range Interpretation Comments Lipase Lvl (test code = Lipase Lvl) 197 73-393 [facility] AustinKefgchrUSAABBPRZR8686-31-42 00:46:00 Test Item Value Reference Range Interpretation Comments Lymphocytes (test code = Lymphocytes) 18.8 20.0-40.0 [facility] AustinLqzpkeeUMFIRBGRNT4378-94-84 00:46:00 Test Item Value Reference Range Interpretation Comments Segs (test code = Segs) 70.6 45.0-75.0 [facility] AustinOrnccikLITMTLUXTE2384-66-23 00:46:00 Test Item Value Reference Range Interpretation Comments Eosinophils # (test code 0.2 See_Comment [A utomated message] The = Eosinophils #) system whic h generated this result tra nsmitted reference range : <=0.5. The reference r tony was not used to int erpret this result as normal/abnormal . [facility] AustinPsfwgswJPJJPJJRCF8373-10-15 00:46:00 Test Item Value Reference Range Interpretation Comments Monocytes # (test code 0.8 See_Comment [Aut omated message] The = Monocytes #) system which generated this result tra nsmitted reference range : <=0.8. The reference r tony was not used to int erpret this result as normal/abnormal . [facility] AustinAubpmjuBEXZRYQKDV2910-85-08 00:46:00 Test Item Value Reference Range Interpretation Comments Monocytes (test code = Monocytes) 8.3 2.0-12.0 [facility] AustinIzqopufOAZBSDRHHH6715-02-36 00:46:00 Test Item Value Reference Range Interpretation Comments Eosinophils (test code = 2.0 See_Comment [A utomated message] The Eosinophils) system which ge nerated this result tra nsmitted reference range : <=4.0. The reference r tony was not used to int erpret this result as normal/abnormal . [facility] AustinIklsynhSNLWBWDWGV4901-68-94 00:46:00 Test Item Value Reference Range Interpretation Comments Basophils (test code = 0.3 See_Comment [Aut omated message] The Basophils) system which ge nerated this result tra nsmitted reference range : <=1.0. The reference r tony was not used to int erpret this result as normal/abnormal . [facility] AustinKzziybqYQUHTQPNXQ7985-33-52 00:46:00 Test Item Value Reference Range Interpretation Comments Segs-Bands # (test code = Segs-Bands #) 7.2 1.5-8.1 [facility] AustinQlrkdmnDPKXABCQHF6657-33-45 00:46:00 Test Item Value Reference Range Interpretation Comments Lymphocytes # (test code = Lymphocytes 1.9 1.0-5.5 #) [facility] AustinFibzyxgBMRQSHZCTO6379-93-80 00:46:00 Test Item Value Reference Range Interpretation Comments MCHC (test code = MCHC) 34.2 32.0-36.0 [facility] AustinYjcohokFUPHOVFRMY8842-57-02 00:46:00 Test Item Value Reference Range Interpretation Comments MPV (test code = MPV) 9.8 7.4-10.4 [facility] AustinAbdqezyLIEVYUBTTF6393-24-17 00:46:00 Test Item Value Reference Range Interpretation Comments Platelet (test code = Platelet) 189 133-450 [facility] AustinBwocjjpVLKIAKEYLE6408-10-80 00:46:00 Test Item Value Reference Range Interpretation Comments RDW (test code = RDW) 13.8 11.5-14.5 [facility] AustinUmvrxatUZIENBEKPT6826-59-00 00:46:00 Test Item Value Reference Range Interpretation Comments MCH (test code = MCH) 32.6 pg 27.0-31.0 [facility] AustinSpuwqiaLUWCKKJSOQ4582-69-91 00:46:00 Test Item Value Reference Range Interpretation Comments Hct (test code = Hct) 47.3 42.0-54.0 [facility] AustinYocxbwrEVKZHMXVAP4041-83-20 00:46:00 Test Item Value Reference Range Interpretation Comments Hgb (test code = Hgb) 16.2 14.0-18.0 [facility] AustinMsezamtKATEMAGWDS4496-52-20 00:46:00 Test Item Value Reference Range Interpretation Comments MCV (test code = MCV) 95.2 80.0-94.0 [facility] AustinDplpqiwFERSBILPFL9227-84-88 00:46:00 Test Item Value Reference Range Interpretation Comments WBC (test code = WBC) 10.2 3.7-10.4 [facility] AustinSaomdkpXHNWQYZXHN6265-52-58 00:46:00 Test Item Value Reference Range Interpretation Comments RBC (test code = RBC) 4.97 4.70-6.[address] [facility]2017-06-19 00:46:00 Test Item Value Reference Range Interpretation Comments UA Urobilinogen (test code = UA <=1.0 mg/dL 0.1-1.0 Urobilinogen) [facility]2017-06-19 00:46:00 Test Item Value Reference Range Interpretation Comments UA Nitrite (test code Negative (11/18/16 7:46 = UA Nitrite) PM) [facility]2017-06-19 00:46:00 Test [...] code = UA Sq Occasional /LPF Epi) [facility]2017-06-19 00:46:00 Test Item Value Reference Range Interpretation Comments UA Blood (test code = Negative (11/18/16 7:46 UA Blood) PM) [facility] AND [id number] 00:46:00 Test Item Value Reference Range Interpretation Comments UA Leuk Est (test Negative (11/18/16 7:46 code = UA Leuk Est) PM) [facility] AND [id number] 00:46:00 Test Item Value Reference Range Interpretation Comments UA Bili (test code = Negative *NA*(11/18/16 UA Bili) 7:46 PM) [facility] AND [id number] 00:46:00 Test Item Value Reference Range Interpretation Comments UA Protein (test code = UA Negative mg/dL Protein) [facility] AND [id number] 00:46:00 Test Item Value Reference Range Interpretation Comments UA pH (test code = UA pH) 5.0 5.0-8.0 [facility] AND [id number] 00:46:00 Test Item Value Reference Range Interpretation Comments UA Ketones (test code = UA Ketones) 20 mg/dL [facility] AND [id number] 00:46:00 Test Item Value Reference Range Interpretation Comments UA Glucose (test code = UA Negative mg/dL Glucose) [facility] AND YURFJ0251-16-56 00:46:00 Test Item Value Reference Range Interpretation Comments UA Spec Grav (test code = UA Spec Grav) 1.032 [facility] AND [id number] 00:46:00 Test Item Value Reference Range Interpretation Comments UA Mucus (test code = UA Mucus) Many /LPF [facility] AND [id number] 00:46:00 Test Item Value Reference Range Interpretation Comments UA RBC (test code = 1 See_Comment [Automa ezequiel message] The UA RBC) system which ge nerated this result transmit ezequiel reference range : <=2. The reference range was not used to interpr et this result as grace l/abnormal. [facility] AND JSHBG2846-43-82 00:46:00 Test Item Value Reference Range Interpretation Comments UA Color (test code = Yellow *NA*(11/18/16 UA Color) 7:46 PM) [facility] AND HYJME4764-08-07 00:46:00 Test Item Value Reference Range Interpretation Comments UA Turbidity (test code Slight *ABN*(11/18/16 = UA Turbidity) 7:46 PM) [facility]2017-06-19 00:46:00 Test Item Value Reference Range Interpretation Comments B/C Ratio (test code = B/C Ratio) 14 6-25 [facility]2017-06-19 00:46:00 Test Item Value Reference Range Interpretation Comments A/G Ratio (test code = A/G Ratio) 1.2 0.7-1.6 [facility]2017-06-19 00:46:00 Test Item Value Reference Range Interpretation Comments Globulin (test code = Globulin) 3.6 2.7-4.2 [facility]2017-06-19 00:46:00 Test Item Value Reference Range Interpretation Comments AGAP (test code = AGAP) 11.0 10.0-20.0 [facility]2017-06-19 00:46:00 Test Item Value Reference Range Interpretation Comments eGFR (test code = eGFR) 106 [facility]2017-06-19 00:46:00 Test Item Value Reference Range Interpretation Comments Albumin Lvl (test code = Albumin Lvl) 4.2 3.5-5.0 [facility]2017-06-19 00:46:00 Test Item Value Reference Range Interpretation Comments Total Protein (test code = Total 7.8 6.4-8.4 Protein) [facility]2017-06-19 00:46:00 Test Item Value Reference Range Interpretation Comments ALT (test code = ALT) 22 See_Comment [Auto mated message] The system which ge nerated this result transmit ezequiel reference range : <=65. The reference range was not used to interpr et this result as grace l/abnormal. [facility]2017-06-19 00:46:00 Test Item Value Reference Range Interpretation Comments Alk Phos (test code = Alk Phos) 72 39-136 [facility]2017-06-19 00:46:00 Test Item Value Reference Range Interpretation Comments Bili Total (test code = Bili Total) 0.6 0.2-1.3 [facility]2017-06-19 00:46:00 Test Item Value Reference Range Interpretation Comments AST (test code = AST) 15 See_Comment [Auto mated message] The system which ge nerated this result transmit ezequiel reference range : <=37. The reference range was not used to interpr et this result as grace l/abnormal. [facility]2017-06-19 00:46:00 Test Item Value Reference Range Interpretation Comments Potassium Lvl (test code = Potassium 4.0 3.5-5.1 Lvl) [facility]2017-06-19 00:46:00 Test Item Value Reference Range Interpretation Comments Chloride Lvl (test code = Chloride Lvl) 108 95-109 [facility]2017-06-19 00:46:00 Test Item Value Reference Range Interpretation Comments CO2 (test code = CO2) 26 24-32 [facility]2017-06-19 00:46:00 Test Item Value Reference Range Interpretation Comments Calcium Lvl (test code = Calcium Lvl) 9.4 8.5-10.5 [facility]2017-06-19 00:46:00 Test Item Value Reference Range Interpretation Comments Glucose Lvl (test code = Glucose Lvl) 108 70-99 [facility]2017-06-19 00:46:00 Test Item Value Reference Range Interpretation Comments Creatinine Lvl (test code = Creatinine 0.97 0.50-1.40 Lvl) [facility]2017-06-19 00:46:00 Test Item Value Reference Range Interpretation Comments BUN (test code = BUN) 14 7-22 [facility]2017-06-19 00:46:00 Test Item Value Reference Range Interpretation Comments Sodium Lvl (test code = Sodium Lvl) 141 135-145 [facility]2017-06-19 00:46:00 Test Item Value Reference Range Interpretation Comments Lipase Lvl (test code = Lipase Lvl) 197 73-393 [facility]PtgfdfbMSBRCTFDNY2116-45-09 00:46:00 Test Item Value Reference Range Interpretation Comments Lymphocytes (test code = Lymphocytes) 18.8 20.0-40.0 [facility] AustinIkjyhghYCSTUZGZJN4446-42-64 00:46:00 Test Item Value Reference Range Interpretation Comments Segs (test code = Segs) 70.6 45.0-75.0 [facility] AustinNebkwcfGFJBUUUZWM0193-51-66 00:46:00 Test Item Value Reference Range Interpretation Comments Eosinophils # (test code 0.2 See_Comment [A utomated message] The = Eosinophils #) system whic h generated this result tra nsmitted reference range : <=0.5. The reference r tony was not used to int erpret this result as normal/abnormal . [facility] AustinHetjsmzSEULCGGDHC6363-82-73 00:46:00 Test Item Value Reference Range Interpretation Comments Monocytes # (test code 0.8 See_Comment [Aut omated message] The = Monocytes #) system which generated this result tra nsmitted reference range : <=0.8. The reference r tony was not used to int erpret this result as normal/abnormal . [facility] AustinLblindmIBSVRBDBCU3486-14-80 00:46:00 Test Item Value Reference Range Interpretation Comments Monocytes (test code = Monocytes) 8.3 2.0-12.0 [facility] AustinYwnqsjsVNKXOTEATH9786-35-59 00:46:00 Test Item Value Reference Range Interpretation Comments Eosinophils (test code = 2.0 See_Comment [A utomated message] The Eosinophils) system which ge nerated this result tra nsmitted reference range : <=4.0. The reference r tony was not used to int erpret this result as normal/abnormal . [facility] AustinYygmliqLFRCQDKEFB4900-30-12 00:46:00 Test Item Value Reference Range Interpretation Comments Basophils (test code = 0.3 See_Comment [Aut omated message] The Basophils) system which ge nerated this result tra nsmitted reference range : <=1.0. The reference r tony was not used to int erpret this result as normal/abnormal . [facility] AustinUtwvjabXVFGDRCQGP8857-24-20 00:46:00 Test Item Value Reference Range Interpretation Comments Segs-Bands # (test code = Segs-Bands #) 7.2 1.5-8.1 [facility] AustinUuumnduSAKKNETGOJ1794-50-24 00:46:00 Test Item Value Reference Range Interpretation Comments Lymphocytes # (test code = Lymphocytes 1.9 1.0-5.5 #) [facility] AustinMcyyacoYANOECIMCE1594-34-30 00:46:00 Test Item Value Reference Range Interpretation Comments MCHC (test code = MCHC) 34.2 32.0-36.0 [facility] AustinCbjobhoNGXFRNCOPX8448-75-82 00:46:00 Test Item Value Reference Range Interpretation Comments MPV (test code = MPV) 9.8 7.4-10.4 [facility] AustinVnjavhsMDGMTDXCPP9845-83-96 00:46:00 Test Item Value Reference Range Interpretation Comments Platelet (test code = Platelet) 189 133-450 [facility] AustinZgjnkivHHBAWZYAVY7560-85-37 00:46:00 Test Item Value Reference Range Interpretation Comments RDW (test code = RDW) 13.8 11.5-14.5 [facility] AustinFbseiojLBNAKWUMQV6201-23-14 00:46:00 Test Item Value Reference Range Interpretation Comments MCH (test code = MCH) 32.6 pg 27.0-31.0 [facility] AustinSwjzuqfKMXFVBQMPO8006-35-56 00:46:00 Test Item Value Reference Range Interpretation Comments Hct (test code = Hct) 47.3 42.0-54.0 [facility] AustinRutwdcwEAJIUFJKAJ9669-17-85 00:46:00 Test Item Value Reference Range Interpretation Comments Hgb (test code = Hgb) 16.2 14.0-18.0 [facility] AustinBjzsycrKLQGBHZNQU3269-65-36 00:46:00 Test Item Value Reference Range Interpretation Comments MCV (test code = MCV) 95.2 80.0-94.0 [facility] AustinBmcksodBJJMRWGSQX0102-44-62 00:46:00 Test Item Value Reference Range Interpretation Comments WBC (test code = WBC) 10.2 3.7-10.4 [facility] AustinLurlihvARVHUUVAYV6811-22-59 00:46:00 Test Item Value Reference Range Interpretation Comments RBC (test code = RBC) 4.97 4.70-6.[address] [facility]2017-06-19 00:46:00 Test Item Value Reference Range Interpretation Comments UA Urobilinogen (test code = UA <=1.0 mg/dL 0.1-1.0 Urobilinogen) [facility]2017-06-19 00:46:00 Test Item Value Reference Range Interpretation Comments UA Nitrite (test code Negative (11/18/16 7:46 = UA Nitrite) PM) [facility]2017-06-19 00:46:00 Test Item Value Reference Range Interpretation Comments UA WBC (test code = 2 See_Comment [Automa ezequiel message] The UA WBC) system which ge nerated this result transmit ezequiel reference range : <=5. The reference range was not used to interpr et this result as grace l/abnormal. [facility] OQRGM0948-19-91 00:46:00 Test Item Value Reference Range Interpretation Comments UA Sq Epi (test code = UA Sq Occasional /LPF Epi) [facility] [id number] 00:46:00 Test Item Value Reference Range Interpretation Comments UA Blood (test code = Negative (11/18/16 7:46 UA Blood) PM) [facility] XGMIQ4796-90-33 00:46:00 Test Item Value Reference Range Interpretation Comments UA Leuk Est (test Negative (11/18/16 7:46 code = UA Leuk Est) PM) [facility] [id number] 00:46:00 Test Item Value Reference Range Interpretation Comments UA Bili (test code = Negative *NA*(11/18/16 UA Bili) 7:46 PM) [facility] [id number] 00:46:00 Test Item Value Reference Range Interpretation Comments UA Protein (test code = UA Negative mg/dL Protein) [facility] SKBTA7536-59-56 00:46:00 Test Item Value Reference Range Interpretation Comments UA pH (test code = UA pH) 5.0 5.0-8.0 [facility] [id number] 00:46:00 Test Item Value Reference Range Interpretation Comments UA Ketones (test code = UA Ketones) 20 mg/dL [facility] [id number] 00:46:00 Test Item Value Reference Range Interpretation Comments UA Glucose (test code = UA Negative mg/dL Glucose) [facility] RYQQI0260-13-53 00:46:00 Test Item Value Reference Range Interpretation Comments UA Spec Grav (test code = UA Spec Grav) 1.032 [facility] [id number] 00:46:00 Test Item Value Reference Range Interpretation Comments UA Mucus (test code = UA Mucus) Many /LPF [facility] [id number] 00:46:00 Test Item Value Reference Range Interpretation Comments UA RBC (test code = 1 See_Comment [Automa ezequiel message] The UA RBC) system which ge nerated this result transmit ezequiel reference range : <=2. The reference range was not used to interpr et this result as grace l/abnormal. [facility] DWGKU4636-38-80 00:46:00 Test Item Value Reference Range Interpretation Comments UA Color (test code = Yellow *NA*(11/18/16 UA Color) 7:46 PM) [facility] [id number] 00:46:00 Test Item Value Reference Range Interpretation Comments UA Turbidity (test code Slight *ABN*(11/18/16 = UA Turbidity) 7:46 PM) [facility]2017-06-19 00:46:00 Test Item Value Reference Range Interpretation Comments B/C Ratio (test code = B/C Ratio) 14 6-25 [facility]2017-06-19 00:46:00 Test Item Value Reference Range Interpretation Comments A/G Ratio (test code = A/G Ratio) 1.2 0.7-1.6 [facility]2017-06-19 00:46:00 Test Item Value Reference Range Interpretation Comments Globulin (test code = Globulin) 3.6 2.7-4.2 [facility]2017-06-19 00:46:00 Test Item Value Reference Range Interpretation Comments AGAP (test code = AGAP) 11.0 10.0-20.0 [facility]2017-06-19 00:46:00 Test Item Value Reference Range Interpretation Comments eGFR (test code = eGFR) 106 [facility]2017-06-19 00:46:00 Test Item Value Reference Range Interpretation Comments Albumin Lvl (test code = Albumin Lvl) 4.2 3.5-5.0 [facility]2017-06-19 00:46:00 Test Item Value Reference Range Interpretation Comments Total Protein (test code = Total 7.8 6.4-8.4 Protein) [facility]2017-06-19 00:46:00 Test Item Value Reference Range Interpretation Comments ALT (test code = ALT) 22 See_Comment [Auto mated message] The system which ge nerated this result transmit ezequiel reference range : <=65. The reference range was not used to interpr et this result as grace l/abnormal. [facility]2017-06-19 00:46:00 Test Item Value Reference Range Interpretation Comments Alk Phos (test code = Alk Phos) 72 39-136 [facility]2017-06-19 00:46:00 Test Item Value Reference Range Interpretation Comments Bili Total (test code = Bili Total) 0.6 0.2-1.3 [facility]2017-06-19 00:46:00 Test Item Value Reference Range Interpretation Comments AST (test code = AST) 15 See_Comment [Auto mated message] The system which ge nerated this result transmit ezequiel reference range : <=37. The reference range was not used to interpr et this result as grace l/abnormal. [facility]2017-06-19 00:46:00 Test Item Value Reference Range Interpretation Comments Potassium Lvl (test code = Potassium 4.0 3.5-5.1 Lvl) [facility]2017-06-19 00:46:00 Test Item Value Reference Range Interpretation Comments Chloride Lvl (test code = Chloride Lvl) 108 95-109 [facility]2017-06-19 00:46:00 Test Item Value Reference Range Interpretation Comments CO2 (test code = CO2) 26 24-32 [facility]2017-06-19 00:46:00 Test Item Value Reference Range Interpretation Comments Calcium Lvl (test code = Calcium Lvl) 9.4 8.5-10.5 [facility]2017-06-19 00:46:00 Test Item Value Reference Range Interpretation Comments Glucose Lvl (test code = Glucose Lvl) 108 70-99 [facility]2017-06-19 00:46:00 Test Item Value Reference Range Interpretation Comments Creatinine Lvl (test code = Creatinine 0.97 0.50-1.40 Lvl) [facility]2017-06-19 00:46:00 Test Item Value Reference Range Interpretation Comments BUN (test code = BUN) 14 7-22 [facility]2017-06-19 00:46:00 Test Item Value Reference Range Interpretation Comments Sodium Lvl (test code = Sodium Lvl) 141 135-145 [facility]2017-06-19 00:46:00 Test Item Value Reference Range Interpretation Comments Lipase Lvl (test code = Lipase Lvl) 197 73-393 [facility] AustinGnztmjsQSCKVLEDKJ5551-47-96 00:46:00 Test Item Value Reference Range Interpretation Comments Lymphocytes (test code = Lymphocytes) 18.8 20.0-40.0 [facility] AustinRkrrfmxLKKPVOBVIY5505-23-64 00:46:00 Test Item Value Reference Range Interpretation Comments Segs (test code = Segs) 70.6 45.0-75.0 [facility] AustinDfirjluCHFXXEDYBX8929-63-79 00:46:00 Test Item Value Reference Range Interpretation Comments Eosinophils # (test code 0.2 See_Comment [A utomated message] The = Eosinophils #) system ic h generated this result tra nsmitted reference range : <=0.5. The reference r tony was not used to int erpret this result as normal/abnormal . [facility] AustinCziefntVRZVZKAYWX2547-37-70 00:46:00 Test Item Value Reference Range Interpretation Comments Monocytes # (test code 0.8 See_Comment [Aut omated message] The = Monocytes #) system which generated this result tra nsmitted reference range : <=0.8. The reference r tony was not used to int erpret this result as normal/abnormal . [facility] AustinJjknhmpQKPVSUPWLW1076-83-07 00:46:00 Test Item Value Reference Range Interpretation Comments Monocytes (test code = Monocytes) 8.3 2.0-12.0 [facility] AustinLjgcmhsBDEHVXAIFW9263-40-92 00:46:00 Test Item Value Reference Range Interpretation Comments Eosinophils (test code = 2.0 See_Comment [A utomated message] The Eosinophils) system which ge nerated this result tra nsmitted reference range : <=4.0. The reference r tony was not used to int erpret this result as normal/abnormal . [facility] AustinFhdqpluBHVEOBAKDV2341-85-38 00:46:00 Test Item Value Reference Range Interpretation Comments Basophils (test code = 0.3 See_Comment [Aut omated message] The Basophils) system which ge nerated this result tra nsmitted reference range : <=1.0. The reference r tony was not used to int erpret this result as normal/abnormal . [facility] AustinTefvfdhYTEBEDRCLZ5895-49-67 00:46:00 Test Item Value Reference Range Interpretation Comments Segs-Bands # (test code = Segs-Bands #) 7.2 1.5-8.1 [facility] AustinWbufbwoHGWYTNKRLK6353-09-65 00:46:00 Test Item Value Reference Range Interpretation Comments Lymphocytes # (test code = Lymphocytes 1.9 1.0-5.5 #) [facility] AustinAhtrybhPEGWPMORFP8645-43-81 00:46:00 Test Item Value Reference Range Interpretation Comments MCHC (test code = MCHC) 34.2 32.0-36.0 [facility] AustinBireadeEHGYKGJWNL8071-89-58 00:46:00 Test Item Value Reference Range Interpretation Comments MPV (test code = MPV) 9.8 7.4-10.4 [facility] AustinFidwfyeVROYDCNXGR3114-08-65 00:46:00 Test Item Value Reference Range Interpretation Comments Platelet (test code = Platelet) 189 133-450 [facility] AustinNdjnoinYIGZVYGHZY6168-38-35 00:46:00 Test Item Value Reference Range Interpretation Comments RDW (test code = RDW) 13.8 11.5-14.5 [facility] AustinIycnquiSBSQEDWSAP1490-40-60 00:46:00 Test Item Value Reference Range Interpretation Comments MCH (test code = MCH) 32.6 pg 27.0-31.0 [facility] *WW*2016-10-23 14:38:00 Test Item Value [...] 60A) 100 IU/L 73-393 CBC (INCLUDES AUTOMATED DIFFERENTIAL)*[id number] 14:19:00 Test Item Value Reference Range Interpretation [...] 2016-10-23 13:51:45Portable AP chest, 1 viewLocation Code: [id number] HISTORY: Abdominal painCOMPARISON: 07/14/2013COMMEN T: The lungs are clear and well inflated. The costophrenic angles are sharp. Thecardiomediastinal silhouette is unremarkable. The bones are intact.IMPRESSION: Stable chest with no acute abnormality.CT ABDOMEN AND PELVIS WITHOUT CONTRAST 2016-10-23 13:50:29CT abdomen and pelvis without contrastLocation Code: [id number] HISTORY: Abdominal painCOMPARISON: 03/2017Technique: Helical CT of [...] no acute abnormality.CT ABDOMEN AND PELVIS WITH OGIFWEGF0074-12-05 21:28:44CT abdomen and pelvis with contrastLocation Code: [id number] HISTORY: Abdominal painCOMPARISON: 07/18/13, 07/13/13Technique: Helical CT [...] No acute intra-abdominal or pelvic abnormality.DRUGS OF [id number] 21:03:00 Test Item Value Reference Range Interpretation [...] 200 ng/mL Opiates 2000 ng/mL URINALYSIS WITH [id number] 20:50:00 Test Item Value Reference Range Interpretation [...] code = USPERM) /HPF NONE AMYLASE AND [id number] 20:44:00 Test Item Value Reference Range Interpretation Comments AMYLASE (test code = 10A) 46 U/L 28-100 LIPASE (test code = 60A) 128 IU/L 73-393 COMPREHENSIVE METABOLIC [id number] 20:44:00 Test Item Value Reference Range Interpretation [...] MORPH (test code = RBCMOR) NORMAL CARDIAC ZTCOQUI0770-61-48 10:21:00 Test Item Value Reference Range Interpretation Comments Total CK (test code = Total CK) 274 12-191 [facility] OjbvoeqLCBFTZFCUKLS7207-15-89 10:21:00 Test Item Value Reference Range Interpretation Comments AGAP (test code = AGAP) 14.0 10.0-20.0 [facility]KgeiizgKDFESSAMCNMA3831-32-77 10:21:00 Test Item Value Reference Range Interpretation Comments B/C Ratio (test code = B/C Ratio) 10 6-25 [facility] RegionAwqyftmSBFKQGBHHTTR7183-49-04 10:21:00 Test Item Value Reference Range Interpretation Comments Globulin (test code = Globulin) 3.5 2.0-4.0 [facility] RegionFjpsvtuPNFGRNROGFQN2924-72-57 10:21:00 Test Item Value Reference Range Interpretation Comments A/G Ratio (test code = A/G Ratio) 1.3 0.7-1.6 [facility] RegionEstobobHDMDMLELAMBM5754-99-16 10:21:00 Test Item Value Reference Range Interpretation Comments Bili Total (test code = Bili Total) 0.4 0.2-1.3 [facility] RegionIssdmmcSPUJSCTGYXJJ6036-74-07 10:21:00 Test Item Value Reference Range Interpretation Comments eGFR (test code = eGFR) 96 [facility] RegionRempxwgWRNNDJXXJGZA2894-85-44 10:21:00 Test Item Value Reference Range Interpretation Comments Sodium Lvl (test code = Sodium Lvl) 140 135-145 [facility] RegionSqzclqlFPPMVCYYZVVZ8636-49-82 10:21:00 Test Item Value Reference Range Interpretation Comments CO2 (test code = CO2) 24 24-32 [facility] RegionJxncyytCYJWRJOBRSSV1436-72-35 10:21:00 Test Item Value Reference Range Interpretation Comments Calcium Lvl (test code = Calcium Lvl) 8.5 8.5-10.5 [facility] RegionTvbbysjBIZMNTQAMXRI7543-07-20 10:21:00 Test Item Value Reference Range Interpretation Comments AST (test code = AST) 13 See_Comment [Auto mated message] The system which ge nerated this result transmit ezequiel reference range : <=37. The reference range was not used to interpr et this result as grace l/abnormal. [facility] RegionHlszfndXELGSWBRPLOO4750-78-44 10:21:00 Test Item Value Reference Range Interpretation Comments Potassium Lvl (test code = Potassium 4.0 3.5-5.1 Lvl) [facility] RegionClbvcjjKZZXDMWDYBWP4912-43-18 10:21:00 Test Item Value Reference Range Interpretation Comments Chloride Lvl (test code = Chloride Lvl) 106 95-109 [facility] RegionMqhzdpmIZBRCDNLYKGV9289-29-82 10:21:00 Test Item Value Reference Range Interpretation Comments Total Protein (test code = Total 7.9 6.4-8.4 Protein) [facility] RegionMzjznzrVMOYYAVINWAP7471-42-26 10:21:00 Test Item Value Reference Range Interpretation Comments Albumin Lvl (test code = Albumin Lvl) 4.4 3.5-5.0 [facility] RegionXniwjtvXTIEZNTVEECY4540-66-88 10:21:00 Test Item Value Reference Range Interpretation Comments ALT (test code = ALT) 29 See_Comment [Auto mated message] The system which ge nerated this result transmit ezequiel reference range : <=65. The reference range was not used to interpr et this result as grace l/abnormal. [facility] RegionHvuzuloIASAAJBNZIAD3968-57-08 10:21:00 Test Item Value Reference Range Interpretation Comments Alk Phos (test code = Alk Phos) 66 39-136 [facility] RegionDbgfyshDFQWVMNNNFDX6292-76-11 10:21:00 Test Item Value Reference Range Interpretation Comments Creatinine Lvl (test code = Creatinine 1.06 0.50-1.40 Lvl) [facility] RegionOmimmfoWYLIPSZXRIBR1143-94-62 10:21:00 Test Item Value Reference Range Interpretation Comments BUN (test code = BUN) 11 7-22 [facility] RegionXytffupDYEEXBTPEPMT2055-62-87 10:21:00 Test Item Value Reference Range Interpretation Comments Glucose Lvl (test code = Glucose Lvl) 96 70-99 [facility] AustinNtxrzmeGCFQNROZEU5977-05-05 10:21:00 Test Item Value Reference Range Interpretation Comments INR (test code = INR) 1.03 0.85-1.17 [facility] AustinVdhrwgmPWGIRDGTHZ6327-63-22 10:21:00 Test Item Value Reference Range Interpretation Comments PT (test code = PT) 13.8 s 12.0-14.7 [facility] AustinGnonxzbDGIZXCUPRG7864-94-51 10:21:00 Test Item Value Reference Range Interpretation Comments WBC (test code = WBC) 13.5 3.7-10.4 [facility] AustinPxdmkmaOTRIRANNBD7550-63-00 10:21:00 Test Item Value Reference Range Interpretation Comments RBC (test code = RBC) 5.03 4.70-6.10 [facility] AustinJklsdskLMRQNSXHTZ8512-18-76 10:21:00 Test Item Value Reference Range Interpretation Comments Hgb (test code = Hgb) 15.5 14.0-18.0 [facility] AustinRkouzgcXQYFBGXLEU5873-43-57 10:21:00 Test Item Value Reference Range Interpretation Comments Hct (test code = Hct) 46.2 42.0-54.0 [facility] AustinNejojqsHCCYNKCGSD6574-23-43 10:21:00 Test Item Value Reference Range Interpretation Comments MPV (test code = MPV) 9.9 7.4-10.4 [facility] AustinLilnyptZWDBNXXIJM2491-84-06 10:21:00 Test Item Value Reference Range Interpretation Comments RDW (test code = RDW) 13.3 11.5-14.5 [facility] AustinFgdkcobOPFATUYRQP5554-73-82 10:21:00 Test Item Value Reference Range Interpretation Comments MCHC (test code = MCHC) 33.5 32.0-36.0 [facility] AustinQvmuhvuNKXFAWJGEK0160-02-66 10:21:00 Test Item Value Reference Range Interpretation Comments Platelet (test code = Platelet) 223 133-450 [facility] AustinKryfyfdPJUXJCUKUG1856-36-08 10:21:00 Test Item Value Reference Range Interpretation Comments MCH (test code = MCH) 30.8 pg 27.0-31.0 [facility] AustinBnjmwsvNRZGSVHBHT9486-98-38 10:21:00 Test Item Value Reference Range Interpretation Comments MCV (test code = MCV) 91.9 80.0-94.0 [facility] AustinMawxnzyIDCGYBBYID7259-59-80 10:21:00 Test Item Value Reference Range Interpretation Comments Lymphocytes # (test code = Lymphocytes 2.3 1.0-5.5 #) [facility] AustinXpdazscYODOFMHKQM0352-67-25 10:21:00 Test Item Value Reference Range Interpretation Comments Basophils (test code = 0.4 See_Comment [Aut omated message] The Basophils) system which ge nerated this result tra nsmitted reference range : <=1.0. The reference r tony was not used to int erpret this result as normal/abnormal . [facility] AustinSknaswnNQHLMQUOQW5531-71-76 10:21:00 Test Item Value Reference Range Interpretation Comments Monocytes # (test code 0.5 See_Comment [Aut omated message] The = Monocytes #) system which generated this result tra nsmitted reference range : <=0.8. The reference r tony was not used to int erpret this result as normal/abnormal . [facility]YlblnytCLWDSFAJLO4286-23-24 10:21:00 Test Item Value Reference Range Interpretation Comments Segs-Bands # (test code = Segs-Bands #) 10.4 1.5-8.1 [facility]YdvbrokOGIWVEBWBF2339-71-37 10:21:00 Test Item Value Reference Range Interpretation Comments Monocytes (test code = Monocytes) 3.4 2.0-12.0 [facility] HospitalNwesafeOUTHMKTHGK4785-59-34 10:21:00 Test Item Value Reference Range Interpretation Comments Lymphocytes (test code = Lymphocytes) 17.0 20.0-40.0 [facility] HospitalYxnyqfwYLBIGXTRGA5508-06-60 10:21:00 Test Item Value Reference Range Interpretation Comments Eosinophils (test code = 2.3 See_Comment [A utomated message] The Eosinophils) system which ge nerated this result tra nsmitted reference range : <=4.0. The reference r tony was not used to int erpret this result as normal/abnormal . [facility] HospitalUeozmnaPVJHBPRXZX9137-03-01 10:21:00 Test Item Value Reference Range Interpretation Comments Segs (test code = Segs) 76.9 45.0-75.0 [facility] HospitalXxivygqQKJVHQFSNO1703-85-05 10:21:00 Test Item Value Reference Range Interpretation Comments Eosinophils # (test code 0.3 See_Comment [A utomated message] The = Eosinophils #) system whic h generated this result tra nsmitted reference range : <=0.5. The reference r tony was not used to int erpret this result as normal/abnormal . [facility]OvnaxiqFTOYAXYRVM4442-27-87 10:21:00 Test Item Value Reference Range Interpretation Comments Etoh (%) (test code = Etoh (%)) 0.141 [facility] HospitalCvxjwynCQYHIYEOXL0346-95-86 10:21:00 Test Item Value Reference Range Interpretation Comments Ethanol Lvl (test code = Ethanol Lvl) [facility] NQJGGZX9449-50-82 10:21:00 Test Item Value Reference Range Interpretation Comments Total CK (test code = Total CK) 274 12-191 [facility]TscprzrYHMXGHDBCJZR4989-73-56 10:21:00 Test Item Value Reference Range Interpretation Comments AGAP (test code = AGAP) 14.0 10.0-20.0 [facility]GvafhaaMBMRVHRDRRBO5982-33-94 10:21:00 Test Item Value Reference Range Interpretation Comments B/C Ratio (test code = B/C Ratio) 10 6-25 [facility] RegionBkgefhyNCSLKWKUMOIH1491-67-32 10:21:00 Test Item Value Reference Range Interpretation Comments Globulin (test code = Globulin) 3.5 2.0-4.0 [facility] RegionCtsstenEWCIDPORFILX7328-08-79 10:21:00 Test Item Value Reference Range Interpretation Comments A/G Ratio (test code = A/G Ratio) 1.3 0.7-1.6 [facility] RegionIqcxxatJSGICMOVZUVP2964-42-28 10:21:00 Test Item Value Reference Range Interpretation Comments Bili Total (test code = Bili Total) 0.4 0.2-1.3 [facility] RegionGkgfsdzDGLPXKAJPHAC2250-60-63 10:21:00 Test Item Value Reference Range Interpretation Comments eGFR (test code = eGFR) 96 [facility] RegionYwogyfuNXBNIKIRTZNU5238-37-72 10:21:00 Test Item Value Reference Range Interpretation Comments Sodium Lvl (test code = Sodium Lvl) 140 135-145 [facility] RegionKdvzyjoFDUTWKAMFFNB2831-87-54 10:21:00 Test Item Value Reference Range Interpretation Comments CO2 (test code = CO2) 24 24-32 [facility] RegionBnaklxvKINZXXNZWQZW1068-09-05 10:21:00 Test Item Value Reference Range Interpretation Comments Calcium Lvl (test code = Calcium Lvl) 8.5 8.5-10.5 [facility] RegionDtzjoafWADVKWAVIHDL7939-06-22 10:21:00 Test Item Value Reference Range Interpretation Comments AST (test code = AST) 13 See_Comment [Auto mated message] The system which ge nerated this result transmit ezequiel reference range : <=37. The reference range was not used to interpr et this result as grace l/abnormal. [facility] RegionDaafdhhOBFLINBKIMZJ2983-43-10 10:21:00 Test Item Value Reference Range Interpretation Comments Potassium Lvl (test code = Potassium 4.0 3.5-5.1 Lvl) [facility] RegionLskkwnsXCKSWZDFEVKW1111-51-92 10:21:00 Test Item Value Reference Range Interpretation Comments Chloride Lvl (test code = Chloride Lvl) 106 95-109 [facility] RegionRsjayevFWLHCODIERCW0885-45-63 10:21:00 Test Item Value Reference Range Interpretation Comments Total Protein (test code = Total 7.9 6.4-8.4 Protein) [facility] RegionNreravnBSWAAZBWRJBH4612-40-50 10:21:00 Test Item Value Reference Range Interpretation Comments Albumin Lvl (test code = Albumin Lvl) 4.4 3.5-5.0 [facility] RegionTgjzmpdIBQGOYCBUKVB1930-89-70 10:21:00 Test Item Value Reference Range Interpretation Comments ALT (test code = ALT) 29 See_Comment [Auto mated message] The system which ge nerated this result transmit ezequiel reference range : <=65. The reference range was not used to interpr et this result as grace l/abnormal. [facility] RegionYylagipECXQAGWILWES9418-19-31 10:21:00 Test Item Value Reference Range Interpretation Comments Alk Phos (test code = Alk Phos) 66 39-136 [facility] RegionIbllqxtXZRQSLZGAKMB0223-66-29 10:21:00 Test Item Value Reference Range Interpretation Comments Creatinine Lvl (test code = Creatinine 1.06 0.50-1.40 Lvl) [facility] RegionLsfywnfYEXDAWJCZCUW5120-42-80 10:21:00 Test Item Value Reference Range Interpretation Comments BUN (test code = BUN) 11 7-22 [facility] RegionBvjksqfTOMCIWTLCQJN8225-23-37 10:21:00 Test Item Value Reference Range Interpretation Comments Glucose Lvl (test code = Glucose Lvl) 96 70-99 [facility] AustinNizxshvSZEGFBCEBK0036-91-95 10:21:00 Test Item Value Reference Range Interpretation Comments INR (test code = INR) 1.03 0.85-1.17 [facility] AustinJryjgatXLXPKMWSGS3595-85-66 10:21:00 Test Item Value Reference Range Interpretation Comments PT (test code = PT) 13.8 s 12.0-14.7 [facility] AustinHwbfjznFJIWPEOUUY3647-29-40 10:21:00 Test Item Value Reference Range Interpretation Comments WBC (test code = WBC) 13.5 3.7-10.4 [facility] AustinLrsmaibAAPAHNXQRV4385-36-70 10:21:00 Test Item Value Reference Range Interpretation Comments RBC (test code = RBC) 5.03 4.70-6.10 [facility] AustinRxrwoysFDJFPXZBHA6795-22-50 10:21:00 Test Item Value Reference Range Interpretation Comments Hgb (test code = Hgb) 15.5 14.0-18.0 [facility] AustinXhhhgdtQPXPFYPZJI9057-16-47 10:21:00 Test Item Value Reference Range Interpretation Comments Hct (test code = Hct) 46.2 42.0-54.0 [facility] AustinSrkqrgiJNEGZGBYXR2753-60-77 10:21:00 Test Item Value Reference Range Interpretation Comments MPV (test code = MPV) 9.9 7.4-10.4 [facility] AustinRpilazjHNCZDYZMOH9594-30-97 10:21:00 Test Item Value Reference Range Interpretation Comments RDW (test code = RDW) 13.3 11.5-14.5 [facility] AustinXluanwsNCWWDJWIYN2993-75-91 10:21:00 Test Item Value Reference Range Interpretation Comments MCHC (test code = MCHC) 33.5 32.0-36.0 [facility] AustinIrsesibJMHYXVGFVI1318-45-22 10:21:00 Test Item Value Reference Range Interpretation Comments Platelet (test code = Platelet) 223 133-450 [facility] AustinJpyrehhXYDTPPHPAE2972-73-66 10:21:00 Test Item Value Reference Range Interpretation Comments MCH (test code = MCH) 30.8 pg 27.0-31.0 [facility] AustinAwkfyynTUXTGHVJLM3106-89-84 10:21:00 Test Item Value Reference Range Interpretation Comments MCV (test code = MCV) 91.9 80.0-94.0 [facility] AustinEbzqzlvJHSFJIRCPC7098-45-73 10:21:00 Test Item Value Reference Range Interpretation Comments Lymphocytes # (test code = Lymphocytes 2.3 1.0-5.5 #) [facility] AustinSkvbcdbGPNVNVCNUT5667-54-79 10:21:00 Test Item Value Reference Range Interpretation Comments Basophils (test code = 0.4 See_Comment [Aut omated message] The Basophils) system which ge nerated this result tra nsmitted reference range : <=1.0. The reference r tony was not used to int erpret this result as normal/abnormal . [facility] AustinUezqwfyZMAFOYQRHU1841-70-29 10:21:00 Test Item Value Reference Range Interpretation Comments Monocytes # (test code 0.5 See_Comment [Aut omated message] The = Monocytes #) system which generated this result tra nsmitted reference range : <=0.8. The reference r tony was not used to int erpret this result as normal/abnormal . [facility] AustinQlptqhxZMSEYLYPQX7374-71-17 10:21:00 Test Item Value Reference Range Interpretation Comments Segs-Bands # (test code = Segs-Bands #) 10.4 1.5-8.1 [facility]FddccxfYJZZYRIPUT8525-22-38 10:21:00 Test Item Value Reference Range Interpretation Comments Monocytes (test code = Monocytes) 3.4 2.0-12.0 [facility] HospitalYdzhmubPZZUJDKNOD2202-45-61 10:21:00 Test Item Value Reference Range Interpretation Comments Lymphocytes (test code = Lymphocytes) 17.0 20.0-40.0 [facility] HospitalHxohvfdIBJGSAHWCT0285-73-73 10:21:00 Test Item Value Reference Range Interpretation Comments Eosinophils (test code = 2.3 See_Comment [A utomated message] The Eosinophils) system which ge nerated this result tra nsmitted reference range : <=4.0. The reference r tony was not used to int erpret this result as normal/abnormal . [facility] AustinTtqqmuvANELYFBQGH9574-22-65 10:21:00 Test Item Value Reference Range Interpretation Comments Segs (test code = Segs) 76.9 45.0-75.0 [facility] HospitalJlsxbohJSSWICKMJQ0046-53-52 10:21:00 Test Item Value Reference Range Interpretation Comments Eosinophils # (test code 0.3 See_Comment [A utomated message] The = Eosinophils #) system whic h generated this result tra nsmitted reference range : <=0.5. The reference r tony was not used to int erpret this result as normal/abnormal . [facility] HospitalZiawjekCBRVFLWEWI9990-02-32 10:21:00 Test Item Value Reference Range Interpretation Comments Etoh (%) (test code = Etoh (%)) 0.141 [facility] HospitalFohmiccQZOVDOZAAR1704-72-46 10:21:00 Test Item Value Reference Range Interpretation Comments Ethanol Lvl (test code = Ethanol Lvl) 141 [facility] HospitalCARDIAC JRQLTSY1506-67-49 10:21:00 Test Item Value Reference Range Interpretation Comments Total CK (test code = Total CK) 274 12-191 [facility] HospitalIkcciwyRYGOWHOMUQSK8224-02-21 10:21:00 Test Item Value Reference Range Interpretation Comments AGAP (test code = AGAP) 14.0 10.0-20.0 [facility] RegionVlutqoaPBDMPHLUJTVP4922-65-60 10:21:00 Test Item Value Reference Range Interpretation Comments B/C Ratio (test code = B/C Ratio) 10 6-25 [facility] RegionUaljhgbGCVRZUOMTEZS1116-68-78 10:21:00 Test Item Value Reference Range Interpretation Comments Globulin (test code = Globulin) 3.5 2.0-4.0 [facility] RegionTcooeyjILYBQNLIURKW4880-91-90 10:21:00 Test Item Value Reference Range Interpretation Comments A/G Ratio (test code = A/G Ratio) 1.3 0.7-1.6 [facility] RegionHlhhzkfBWIEGPIMRKFZ5022-27-88 10:21:00 Test Item Value Reference Range Interpretation Comments Bili Total (test code = Bili Total) 0.4 0.2-1.3 [facility] RegionAuzcxxqKYYUIPYKNARR3109-82-13 10:21:00 Test Item Value Reference Range Interpretation Comments eGFR (test code = eGFR) 96 [facility] RegionApbyokuECBHIUHEFJNY3934-20-74 10:21:00 Test Item Value Reference Range Interpretation Comments Sodium Lvl (test code = Sodium Lvl) 140 135-145 [facility] RegionPzuwbvzNRWWHJWHQQFJ3453-98-03 10:21:00 Test Item Value Reference Range Interpretation Comments CO2 (test code = CO2) 24 24-32 [facility] RegionGxdcrdwHOBQOGCIMBZN5695-08-79 10:21:00 Test Item Value Reference Range Interpretation Comments Calcium Lvl (test code = Calcium Lvl) 8.5 8.5-10.5 [facility] RegionAsifwlwTXGKJSQJSFTU3128-92-41 10:21:00 Test Item Value Reference Range Interpretation Comments AST (test code = AST) 13 See_Comment [Auto mated message] The system which ge nerated this result transmit ezequiel reference range : <=37. The reference range was not used to interpr et this result as grace l/abnormal. [facility] RegionDnzqkgcZBEYYISBBKVU7155-41-48 10:21:00 Test Item Value Reference Range Interpretation Comments Potassium Lvl (test code = Potassium 4.0 3.5-5.1 Lvl) [facility] RegionGoagajoXHSDQROETGSU6150-36-73 10:21:00 Test Item Value Reference Range Interpretation Comments Chloride Lvl (test code = Chloride Lvl) 106 95-109 [facility] RegionMvwoycgHWKXHJKNQYBE7615-39-95 10:21:00 Test Item Value Reference Range Interpretation Comments Total Protein (test code = Total 7.9 6.4-8.4 Protein) [facility] RegionFxupbsaDUYDUKMKXIIU9264-21-81 10:21:00 Test Item Value Reference Range Interpretation Comments Albumin Lvl (test code = Albumin Lvl) 4.4 3.5-5.0 [facility] RegionIeijjuyOOKJEMFGMPEP6778-12-04 10:21:00 Test Item Value Reference Range Interpretation Comments ALT (test code = ALT) 29 See_Comment [Auto mated message] The system which ge nerated this result transmit ezequiel reference range : <=65. The reference range was not used to interpr et this result as grace l/abnormal. [facility] RegionMwklmniSWWVETOMJANC3710-40-82 10:21:00 Test Item Value Reference Range Interpretation Comments Alk Phos (test code = Alk Phos) 66 39-136 [facility] RegionPeyhbyuVMRZFLVEDJAV1057-97-61 10:21:00 Test Item Value Reference Range Interpretation Comments Creatinine Lvl (test code = Creatinine 1.06 0.50-1.40 Lvl) [facility] RegionLpbxocfEAMBKEIIWBEV0501-23-43 10:21:00 Test Item Value Reference Range Interpretation Comments BUN (test code = BUN) 11 7-22 [facility] RegionKltepsmBMGVBBTDHQHF0535-95-31 10:21:00 Test Item Value Reference Range Interpretation Comments Glucose Lvl (test code = Glucose Lvl) 96 70-99 [facility] AustinLmwuswgYGQTMXQNJP9098-64-02 10:21:00 Test Item Value Reference Range Interpretation Comments INR (test code = INR) 1.03 0.85-1.17 [facility] AustinHtzqpceYLSWGUEETT0724-18-72 10:21:00 Test Item Value Reference Range Interpretation Comments PT (test code = PT) 13.8 s 12.0-14.7 [facility] AustinUtsgndxJADBYTPFUH8184-31-76 10:21:00 Test Item Value Reference Range Interpretation Comments WBC (test code = WBC) 13.5 3.7-10.4 [facility] AustinLfnzmnfXZGGMWMAPJ3183-23-05 10:21:00 Test Item Value Reference Range Interpretation Comments RBC (test code = RBC) 5.03 4.70-6.10 [facility] AustinObtgkpzYLJKWESLPK1011-87-54 10:21:00 Test Item Value Reference Range Interpretation Comments Hgb (test code = Hgb) 15.5 14.0-18.0 [facility] AustinZipyoteCAFVIQPART6142-04-59 10:21:00 Test Item Value Reference Range Interpretation Comments Hct (test code = Hct) 46.2 42.0-54.0 [facility] AustinIjtwearOHLHMTSRSE6749-58-71 10:21:00 Test Item Value Reference Range Interpretation Comments MPV (test code = MPV) 9.9 7.4-10.4 [facility] AustinMllknowINOTBNTAMK5745-02-63 10:21:00 Test Item Value Reference Range Interpretation Comments RDW (test code = RDW) 13.3 11.5-14.5 [facility] AustinHoqnekzEUOTLIRITV0136-24-90 10:21:00 Test Item Value Reference Range Interpretation Comments MCHC (test code = MCHC) 33.5 32.0-36.0 [facility] AustinTukrpbtCMJVCCDDPF6789-24-57 10:21:00 Test Item Value Reference Range Interpretation Comments Platelet (test code = Platelet) 223 133-450 [facility] AustinUuxpffdQBKOQKTUJH2865-78-93 10:21:00 Test Item Value Reference Range Interpretation Comments MCH (test code = MCH) 30.8 pg 27.0-31.0 [facility] AustinEtfjvprZAXFABVNNN8901-74-10 10:21:00 Test Item Value Reference Range Interpretation Comments MCV (test code = MCV) 91.9 80.0-94.0 [facility] AustinQdeomzgKOCKLHSSXC7082-67-39 10:21:00 Test Item Value Reference Range Interpretation Comments Lymphocytes # (test code = Lymphocytes 2.3 1.0-5.5 #) [facility] AustinLggzmtfNGKZXHPJEE2524-14-74 10:21:00 Test Item Value Reference Range Interpretation Comments Basophils (test code = 0.4 See_Comment [Aut omated message] The Basophils) system which ge nerated this result tra nsmitted reference range : <=1.0. The reference r tony was not used to int erpret this result as normal/abnormal . [facility] AustinWnbpjqhOUFJIDFRBZ5929-23-86 10:21:00 Test Item Value Reference Range Interpretation Comments Monocytes # (test code 0.5 See_Comment [Aut omated message] The = Monocytes #) system which generated this result tra nsmitted reference range : <=0.8. The reference r tony was not used to int erpret this result as normal/abnormal . [facility] AustinNqhdcfzPTDNZHMWBP2199-27-57 10:21:00 Test Item Value Reference Range Interpretation Comments Segs-Bands # (test code = Segs-Bands #) 10.4 1.5-8.1 [facility] HospitalJohimftOBSTLWTQKN8174-53-15 10:21:00 Test Item Value Reference Range Interpretation Comments Monocytes (test code = Monocytes) 3.4 2.0-12.0 [facility] HospitalUmmayxqMTLGNPISIT4658-40-31 10:21:00 Test Item Value Reference Range Interpretation Comments Lymphocytes (test code = Lymphocytes) 17.0 20.0-40.0 [facility] HospitalNmgqtcbUHTNYZMBFN5871-42-28 10:21:00 Test Item Value Reference Range Interpretation Comments Eosinophils (test code = 2.3 See_Comment [A utomated message] The Eosinophils) system which ge nerated this result tra nsmitted reference range : <=4.0. The reference r tony was not used to int erpret this result as normal/abnormal . [facility] HospitalCjpgkljMGMODKLXBY7632-91-75 10:21:00 Test Item Value Reference Range Interpretation Comments Segs (test code = Segs) 76.9 45.0-75.0 [facility] HospitalSwotgtpUUFHMDWEAA9802-57-95 10:21:00 Test Item Value Reference Range Interpretation Comments Eosinophils # (test code 0.3 See_Comment [A utomated message] The = Eosinophils #) system whic h generated this result tra nsmitted reference range : <=0.5. The reference r tony was not used to int erpret this result as normal/abnormal . [facility] HospitalAdrmrinCAELYRMBTJ0605-44-61 10:21:00 Test Item Value Reference Range Interpretation Comments Etoh (%) (test code = Etoh (%)) 0.141 [facility] HospitalMivprwtXMJNUZELAP7822-94-82 10:21:00 Test Item Value Reference Range Interpretation Comments Ethanol Lvl (test code = Ethanol Lvl) 141 [facility] HospitalCARDIAC ZMDOBIO6687-69-76 10:21:00 Test Item Value Reference Range Interpretation Comments Total CK (test code = Total CK) 274 12-191 [facility] HospitalJzodktsJUGACHFQSZFY5329-89-09 10:21:00 Test Item Value Reference Range Interpretation Comments AGAP (test code = AGAP) 14.0 10.0-20.0 [facility] HospitalTqwvfxzTSWYMKZXQRXS9749-88-82 10:21:00 Test Item Value Reference Range Interpretation Comments B/C Ratio (test code = B/C Ratio) 10 6-25 [facility] RegionUjlamyiJPDNRATWYDDP2266-47-22 10:21:00 Test Item Value Reference Range Interpretation Comments Globulin (test code = Globulin) 3.5 2.0-4.0 [facility] RegionPejjjjjNDBXCIBDKQDW9243-59-38 10:21:00 Test Item Value Reference Range Interpretation Comments A/G Ratio (test code = A/G Ratio) 1.3 0.7-1.6 [facility] RegionRnvadaoXWJLQRLPZVSW8682-40-14 10:21:00 Test Item Value Reference Range Interpretation Comments Bili Total (test code = Bili Total) 0.4 0.2-1.3 [facility] RegionYqputgpPCXFPRIXHYFU8497-53-33 10:21:00 Test Item Value Reference Range Interpretation Comments eGFR (test code = eGFR) 96 [facility] RegionYiwmolkXSTVDQJKQTIL4441-27-34 10:21:00 Test Item Value Reference Range Interpretation Comments Sodium Lvl (test code = Sodium Lvl) 140 135-145 [facility] RegionApdopztBMPPNNRUGWWC5232-17-78 10:21:00 Test Item Value Reference Range Interpretation Comments CO2 (test code = CO2) 24 24-32 [facility] RegionAyttwxyBYIAEYXVBDOO1138-05-23 10:21:00 Test Item Value Reference Range Interpretation Comments Calcium Lvl (test code = Calcium Lvl) 8.5 8.5-10.5 [facility] RegionJjtywedUMWGAPOMAZVF4464-66-69 10:21:00 Test Item Value Reference Range Interpretation Comments AST (test code = AST) 13 See_Comment [Auto mated message] The system which ge nerated this result transmit ezequiel reference range : <=37. The reference range was not used to interpr et this result as grace l/abnormal. [facility] RegionRediennYEJVZCTAUMVA0574-21-32 10:21:00 Test Item Value Reference Range Interpretation Comments Potassium Lvl (test code = Potassium 4.0 3.5-5.1 Lvl) [facility] RegionIifhnjjDKZSSABLGPOX2938-87-15 10:21:00 Test Item Value Reference Range Interpretation Comments Chloride Lvl (test code = Chloride Lvl) 106 95-109 [facility] RegionJfluqmeWWJCBZHXHVSI7450-16-59 10:21:00 Test Item Value Reference Range Interpretation Comments Total Protein (test code = Total 7.9 6.4-8.4 Protein) [facility] RegionLsbhhphSBHKLMYLDRQN9917-09-06 10:21:00 Test Item Value Reference Range Interpretation Comments Albumin Lvl (test code = Albumin Lvl) 4.4 3.5-5.0 [facility] RegionLqruztxMFWOEGRXWMVK8965-93-23 10:21:00 Test Item Value Reference Range Interpretation Comments ALT (test code = ALT) 29 See_Comment [Auto mated message] The system which ge nerated this result transmit ezequiel reference range : <=65. The reference range was not used to interpr et this result as grace l/abnormal. [facility] RegionMezswmzRAKYUWVOSCGF6698-04-18 10:21:00 Test Item Value Reference Range Interpretation Comments Alk Phos (test code = Alk Phos) 66 39-136 [facility] RegionPsilvrwMTTQEDXSLTGB9460-66-79 10:21:00 Test Item Value Reference Range Interpretation Comments Creatinine Lvl (test code = Creatinine 1.06 0.50-1.40 Lvl) [facility] RegionUiuwnxiILXNMFPTPCAP1435-13-28 10:21:00 Test Item Value Reference Range Interpretation Comments BUN (test code = BUN) 11 7-22 [facility] RegionJwgsbvyOADAWFOWGDDE2577-54-20 10:21:00 Test Item Value Reference Range Interpretation Comments Glucose Lvl (test code = Glucose Lvl) 96 70-99 [facility] AustinLxiiouwBTVWAQOFBJ9772-13-64 10:21:00 Test Item Value Reference Range Interpretation Comments INR (test code = INR) 1.03 0.85-1.17 [facility] AustinUohrjekITHYSLUZOM5499-04-92 10:21:00 Test Item Value Reference Range Interpretation Comments PT (test code = PT) 13.8 s 12.0-14.7 [facility] AustinWsfawkeWYXTTBFPPN8957-55-91 10:21:00 Test Item Value Reference Range Interpretation Comments WBC (test code = WBC) 13.5 3.7-10.4 [facility] AustinMnkohraAABSLZAQRE8305-53-02 10:21:00 Test Item Value Reference Range Interpretation Comments RBC (test code = RBC) 5.03 4.70-6.10 [facility] AustinSutujcuVJPWWEGAGO9133-66-91 10:21:00 Test Item Value Reference Range Interpretation Comments Hgb (test code = Hgb) 15.5 14.0-18.0 [facility] AustinZcbaraoTIRJOYHBET5518-32-06 10:21:00 Test Item Value Reference Range Interpretation Comments Hct (test code = Hct) 46.2 42.0-54.0 [facility] AustinWwculjdTVCOCEQFNV6732-79-29 10:21:00 Test Item Value Reference Range Interpretation Comments MPV (test code = MPV) 9.9 7.4-10.4 [facility] AustinGadbcwqOZEJSHBXGK6997-44-00 10:21:00 Test Item Value Reference Range Interpretation Comments RDW (test code = RDW) 13.3 11.5-14.5 [facility] AustinOayxmqqRRLKTGFKLI1309-80-85 10:21:00 Test Item Value Reference Range Interpretation Comments MCHC (test code = MCHC) 33.5 32.0-36.0 [facility] AustinQvatbmkYOJTFEQBAI2845-18-38 10:21:00 Test Item Value Reference Range Interpretation Comments Platelet (test code = Platelet) 223 133-450 [facility] AustinSvjijjtIGMDSZEFPW6955-92-09 10:21:00 Test Item Value Reference Range Interpretation Comments MCH (test code = MCH) 30.8 pg 27.0-31.0 [facility] AustinJjputfsPWBOPUZJTJ1148-40-36 10:21:00 Test Item Value Reference Range Interpretation Comments MCV (test code = MCV) 91.9 80.0-94.0 [facility] AustinIiobaubLMYELIEHRG7919-94-79 10:21:00 Test Item Value Reference Range Interpretation Comments Lymphocytes # (test code = Lymphocytes 2.3 1.0-5.5 #) [facility] AustinXxdtnesNBTXDNOJRU9783-21-64 10:21:00 Test Item Value Reference Range Interpretation Comments Basophils (test code = 0.4 See_Comment [Aut omated message] The Basophils) system which ge nerated this result tra nsmitted reference range : <=1.0. The reference r tony was not used to int erpret this result as normal/abnormal . [facility] AustinZkiixweHVZTUBZMEL9623-30-20 10:21:00 Test Item Value Reference Range Interpretation Comments Monocytes # (test code 0.5 See_Comment [Aut omated message] The = Monocytes #) system which generated this result tra nsmitted reference range : <=0.8. The reference r tony was not used to int erpret this result as normal/abnormal . [facility] AustinGtzhwmmQNTDSCLNZN2894-18-91 10:21:00 Test Item Value Reference Range Interpretation Comments Segs-Bands # (test code = Segs-Bands #) 10.4 1.5-8.1 [facility] HospitalJmwyuwlPEKSYUFAUV5885-01-29 10:21:00 Test Item Value Reference Range Interpretation Comments Monocytes (test code = Monocytes) 3.4 2.0-12.0 [facility] HospitalYwxfkfyNFTZPRWOTW2820-28-02 10:21:00 Test Item Value Reference Range Interpretation Comments Lymphocytes (test code = Lymphocytes) 17.0 20.0-40.0 [facility] HospitalGyxvtrzIIORKTMSNH7710-04-11 10:21:00 Test Item Value Reference Range Interpretation Comments Eosinophils (test code = 2.3 See_Comment [A utomated message] The Eosinophils) system which ge nerated this result tra nsmitted reference range : <=4.0. The reference r tony was not used to int erpret this result as normal/abnormal . [facility] AustinPsrelcbSYLHIYBMFV7711-83-11 10:21:00 Test Item Value Reference Range Interpretation Comments Segs (test code = Segs) 76.9 45.0-75.0 [facility]WycuzipJBOPYWQGKX0754-12-83 10:21:00 Test Item Value Reference Range Interpretation Comments Eosinophils # (test code 0.3 See_Comment [A utomated message] The = Eosinophils #) system whic h generated this result tra nsmitted reference range : <=0.5. The reference r tony was not used to int erpret this result as normal/abnormal . [facility]TkssnanVMRYVCSXNB2491-07-76 10:21:00 Test Item Value Reference Range Interpretation Comments Etoh (%) (test code = Etoh (%)) 0.141 [facility] HospitalAydlyugYHBQOWBYGZ9255-23-66 10:21:00 Test Item Value Reference Range Interpretation Comments Ethanol Lvl (test code = Ethanol Lvl) 141 [facility] HospitalCARDIAC PQWRKPZ8194-74-26 10:21:00 Test Item Value Reference Range Interpretation Comments Total CK (test code = Total CK) 274 12-191 [facility]AbmourqFVTLYPUMHYUO5491-57-20 10:21:00 Test Item Value Reference Range Interpretation Comments AGAP (test code = AGAP) 14.0 10.0-20.0 [facility]fljdvwZMPJYIOZBUXS9159-94-04 10:21:00 Test Item Value Reference Range Interpretation Comments B/C Ratio (test code = B/C Ratio) 10 6-25 [facility]JknvczmBLSHSYACQHLB5230-34-74 10:21:00 Test Item Value Reference Range Interpretation Comments Globulin (test code = Globulin) 3.5 2.0-4.0 [facility] RegionDewrvjlFLBMBQQYVTRV6325-18-68 10:21:00 Test Item Value Reference Range Interpretation Comments A/G Ratio (test code = A/G Ratio) 1.3 0.7-1.6 [facility] RegionHauivniCZINEXPSWKHX5243-46-78 10:21:00 Test Item Value Reference Range Interpretation Comments Bili Total (test code = Bili Total) 0.4 0.2-1.3 [facility] RegionLnzmdnmVSHHNDJQNBOD0320-19-32 10:21:00 Test Item Value Reference Range Interpretation Comments eGFR (test code = eGFR) 96 [facility] RegionLkgamgqHLAANUAYXMDS7627-33-36 10:21:00 Test Item Value Reference Range Interpretation Comments Sodium Lvl (test code = Sodium Lvl) 140 135-145 [facility] RegionPocrbwyPOJUHKPSPZEC2136-12-37 10:21:00 Test Item Value Reference Range Interpretation Comments CO2 (test code = CO2) 24 24-32 [facility] RegionAefexnkGUHSILYUXICI0806-52-05 10:21:00 Test Item Value Reference Range Interpretation Comments Calcium Lvl (test code = Calcium Lvl) 8.5 8.5-10.5 [facility] RegionVrzgtecFWAJGIWTCXSK1312-60-87 10:21:00 Test Item Value Reference Range Interpretation Comments AST (test code = AST) 13 See_Comment [Auto mated message] The system which ge nerated this result transmit ezequiel reference range : <=37. The reference range was not used to interpr et this result as grace l/abnormal. [facility] RegionLkswinnPMKTKFDYDWOC6562-21-08 10:21:00 Test Item Value Reference Range Interpretation Comments Potassium Lvl (test code = Potassium 4.0 3.5-5.1 Lvl) [facility] RegionGwgqcopWSYLKNHPSFLS4655-95-70 10:21:00 Test Item Value Reference Range Interpretation Comments Chloride Lvl (test code = Chloride Lvl) 106 95-109 [facility] RegionTfoqcckBPCLFUIQMMRH5858-18-76 10:21:00 Test Item Value Reference Range Interpretation Comments Total Protein (test code = Total 7.9 6.4-8.4 Protein) [facility] RegionEvoqvizIZUNFJAPFJNJ7676-32-55 10:21:00 Test Item Value Reference Range Interpretation Comments Albumin Lvl (test code = Albumin Lvl) 4.4 3.5-5.0 [facility] RegionKnrwpvlJUCTHMEOYDOF4100-25-13 10:21:00 Test Item Value Reference Range Interpretation Comments ALT (test code = ALT) 29 See_Comment [Auto mated message] The system which ge nerated this result transmit ezequiel reference range : <=65. The reference range was not used to interpr et this result as grace l/abnormal. [facility] RegionQtpldppBOODCOXGLJJD9851-34-09 10:21:00 Test Item Value Reference Range Interpretation Comments Alk Phos (test code = Alk Phos) 66 39-136 [facility] RegionRvateflPNYJJAUMUYSP4430-38-43 10:21:00 Test Item Value Reference Range Interpretation Comments Creatinine Lvl (test code = Creatinine 1.06 0.50-1.40 Lvl) [facility] RegionUbbfcflOOGRBRXIFTDX5934-75-64 10:21:00 Test Item Value Reference Range Interpretation Comments BUN (test code = BUN) 11 7-22 [facility] RegionZmwxetoUPOTPGANTEAC0105-78-88 10:21:00 Test Item Value Reference Range Interpretation Comments Glucose Lvl (test code = Glucose Lvl) 96 70-99 [facility] AustinVpbyyjmPMHGTJQZMA2687-63-22 10:21:00 Test Item Value Reference Range Interpretation Comments INR (test code = INR) 1.03 0.85-1.17 [facility] AustinLitohaxYVKRXPBPZD5952-12-11 10:21:00 Test Item Value Reference Range Interpretation Comments PT (test code = PT) 13.8 s 12.0-14.7 [facility] AustinMeuvgyrJSIFQMYGOZ8570-58-08 10:21:00 Test Item Value Reference Range Interpretation Comments WBC (test code = WBC) 13.5 3.7-10.4 [facility] AustinEsvojuwXLMWAPCVAR2051-97-05 10:21:00 Test Item Value Reference Range Interpretation Comments RBC (test code = RBC) 5.03 4.70-6.10 [facility] AustinRtfbmamMDALGHAUMN6980-24-59 10:21:00 Test Item Value Reference Range Interpretation Comments Hgb (test code = Hgb) 15.5 14.0-18.0 [facility] AustinDvnkgvcQXPCRACMRU1539-91-72 10:21:00 Test Item Value Reference Range Interpretation Comments Hct (test code = Hct) 46.2 42.0-54.0 [facility] AustinYysrzrwFMWIBHCXUK4469-31-21 10:21:00 Test Item Value Reference Range Interpretation Comments MPV (test code = MPV) 9.9 7.4-10.4 [facility] AustinNwmpsacQCAEIJLGEK8148-63-96 10:21:00 Test Item Value Reference Range Interpretation Comments RDW (test code = RDW) 13.3 11.5-14.5 [facility] AustinUhjtjioAMHNWVVXGW1207-29-36 10:21:00 Test Item Value Reference Range Interpretation Comments MCHC (test code = MCHC) 33.5 32.0-36.0 [facility] AustinKrqlxfpZROLUKBKWT1591-75-02 10:21:00 Test Item Value Reference Range Interpretation Comments Platelet (test code = Platelet) 223 133-450 [facility] AustinGudbcqdKYMAWSTUXK1416-20-76 10:21:00 Test Item Value Reference Range Interpretation Comments MCH (test code = MCH) 30.8 pg 27.0-31.0 [facility] AustinGyjiswcDLVUCDKMYU5455-53-78 10:21:00 Test Item Value Reference Range Interpretation Comments MCV (test code = MCV) 91.9 80.0-94.0 [facility] AustinRhggqgzVDBHPBLMZU9536-81-30 10:21:00 Test Item Value Reference Range Interpretation Comments Lymphocytes # (test code = Lymphocytes 2.3 1.0-5.5 #) [facility] AustinXytjogsDDBJQRCQSI7710-76-48 10:21:00 Test Item Value Reference Range Interpretation Comments Basophils (test code = 0.4 See_Comment [Aut omated message] The Basophils) system which ge nerated this result tra nsmitted reference range : <=1.0. The reference r tony was not used to int erpret this result as normal/abnormal . [facility] AustinRlunygvYZBNUDXHQL8328-83-45 10:21:00 Test Item Value Reference Range Interpretation Comments Monocytes # (test code 0.5 See_Comment [Aut omated message] The = Monocytes #) system which generated this result tra nsmitted reference range : <=0.8. The reference r tony was not used to int erpret this result as normal/abnormal . [facility] AustinLpulpphNSAEVCXWIG1852-31-02 10:21:00 Test Item Value Reference Range Interpretation Comments Segs-Bands # (test code = Segs-Bands #) 10.4 1.5-8.1 [facility] HospitalNsypswbNGFRTYGNFK1135-75-04 10:21:00 Test Item Value Reference Range Interpretation Comments Monocytes (test code = Monocytes) 3.4 2.0-12.0 [facility] HospitalLmxwpveXXMVXOMYYW8024-90-55 10:21:00 Test Item Value Reference Range Interpretation Comments Lymphocytes (test code = Lymphocytes) 17.0 20.0-40.0 [facility] HospitalEnwgrtaVZCHPLCMHV4321-46-26 10:21:00 Test Item Value Reference Range Interpretation Comments Eosinophils (test code = 2.3 See_Comment [A utomated message] The Eosinophils) system which ge nerated this result tra nsmitted reference range : <=4.0. The reference r tony was not used to int erpret this result as normal/abnormal . [facility] HospitalExxgvumBEKRBNLFLI6041-16-09 10:21:00 Test Item Value Reference Range Interpretation Comments Segs (test code = Segs) 76.9 45.0-75.0 [facility] HospitalAtvtousJXLLTXZZBD8931-13-48 10:21:00 Test Item Value Reference Range Interpretation Comments Eosinophils # (test code 0.3 See_Comment [A utomated message] The = Eosinophils #) system whic h generated this result tra nsmitted reference range : <=0.5. The reference r tony was not used to int erpret this result as normal/abnormal . [facility] HospitalPyypotgQTRPATUFZS7439-47-57 10:21:00 Test Item Value Reference Range Interpretation Comments Etoh (%) (test code = Etoh (%)) 0.141 [facility] HospitalKmlyjpgDFDJHUIBJZ6614-52-08 10:21:00 Test Item Value Reference Range Interpretation Comments Ethanol Lvl (test code = Ethanol Lvl) 141 [facility] HospitalCARDIAC QEDYZKU7423-62-80 10:21:00 Test Item Value Reference Range Interpretation Comments Total CK (test code = Total CK) 274 12-191 [facility] HospitalJdkirykPUUYHMRGYJYZ9550-38-30 10:21:00 Test Item Value Reference Range Interpretation Comments AGAP (test code = AGAP) 14.0 10.0-20.0 [facility] HospitalLsfyrfqSTHSZCYNYGYH9825-36-72 10:21:00 Test Item Value Reference Range Interpretation Comments B/C Ratio (test code = B/C Ratio) 10 6-25 [facility] RegionZbmhsrrEUTTBXHPDTLM8694-94-01 10:21:00 Test Item Value Reference Range Interpretation Comments Globulin (test code = Globulin) 3.5 2.0-4.0 [facility] RegionCodrfvuJGPVDECWADTG9960-93-72 10:21:00 Test Item Value Reference Range Interpretation Comments A/G Ratio (test code = A/G Ratio) 1.3 0.7-1.6 [facility] RegionApkdmvcXMVYTDXYSJCJ8381-68-20 10:21:00 Test Item Value Reference Range Interpretation Comments Bili Total (test code = Bili Total) 0.4 0.2-1.3 [facility] RegionQaidcyzMUFKPTQCSPKK2225-56-22 10:21:00 Test Item Value Reference Range Interpretation Comments eGFR (test code = eGFR) 96 [facility] RegionTujfugzBNLPNSKOJLLP4078-40-43 10:21:00 Test Item Value Reference Range Interpretation Comments Sodium Lvl (test code = Sodium Lvl) 140 135-145 [facility] RegionIynjjihWCNVRKSFWJWI3308-63-54 10:21:00 Test Item Value Reference Range Interpretation Comments CO2 (test code = CO2) 24 24-32 [facility] RegionHvuqdnzSHJDLZZYNKVV2853-69-72 10:21:00 Test Item Value Reference Range Interpretation Comments Calcium Lvl (test code = Calcium Lvl) 8.5 8.5-10.5 [facility] RegionUkpobpuUVEKPGKPWYTE5338-61-48 10:21:00 Test Item Value Reference Range Interpretation Comments AST (test code = AST) 13 See_Comment [Auto mated message] The system which ge nerated this result transmit ezequiel reference range : <=37. The reference range was not used to interpr et this result as grace l/abnormal. [facility] RegionOstmrszOJDKMHPMVXVH8451-64-14 10:21:00 Test Item Value Reference Range Interpretation Comments Potassium Lvl (test code = Potassium 4.0 3.5-5.1 Lvl) [facility] RegionPjmiblxWJMYPANZILPN2299-37-05 10:21:00 Test Item Value Reference Range Interpretation Comments Chloride Lvl (test code = Chloride Lvl) 106 95-109 [facility] RegionKfrynhiORBEYOHYCHNP3477-90-59 10:21:00 Test Item Value Reference Range Interpretation Comments Total Protein (test code = Total 7.9 6.4-8.4 Protein) [facility] RegionFkwveshAODNWRSCEFPT3374-02-46 10:21:00 Test Item Value Reference Range Interpretation Comments Albumin Lvl (test code = Albumin Lvl) 4.4 3.5-5.0 [facility] RegionVislvdqIUOFYNALNLGM0394-80-98 10:21:00 Test Item Value Reference Range Interpretation Comments ALT (test code = ALT) 29 See_Comment [Auto mated message] The system which ge nerated this result transmit ezequiel reference range : <=65. The reference range was not used to interpr et this result as grace l/abnormal. [facility] RegionPaaekssEHUOYGIQRZMK3904-53-81 10:21:00 Test Item Value Reference Range Interpretation Comments Alk Phos (test code = Alk Phos) 66 39-136 [facility] RegionOwpajcoXFQKUGYAXYWQ6100-76-38 10:21:00 Test Item Value Reference Range Interpretation Comments Creatinine Lvl (test code = Creatinine 1.06 0.50-1.40 Lvl) [facility] RegionWcodwceQRGGHCILEAKY5213-37-41 10:21:00 Test Item Value Reference Range Interpretation Comments BUN (test code = BUN) 11 7-22 [facility] RegionGajiftbPLAYYYFMETBS6213-15-25 10:21:00 Test Item Value Reference Range Interpretation Comments Glucose Lvl (test code = Glucose Lvl) 96 70-99 [facility] AustinAgdhimyBDSSHRIQFH9556-97-63 10:21:00 Test Item Value Reference Range Interpretation Comments INR (test code = INR) 1.03 0.85-1.17 [facility] AustinHcjwkkhOPRVKTXPVJ5736-00-28 10:21:00 Test Item Value Reference Range Interpretation Comments PT (test code = PT) 13.8 s 12.0-14.7 [facility] AustinAzyeirjOSDHKIFJHS8888-90-40 10:21:00 Test Item Value Reference Range Interpretation Comments WBC (test code = WBC) 13.5 3.7-10.4 [facility] AustinUrktdlxHOKDEBDBXZ9653-77-35 10:21:00 Test Item Value Reference Range Interpretation Comments RBC (test code = RBC) 5.03 4.70-6.10 [facility] AustinHxvxxfiJOQXTTNKXY4181-39-21 10:21:00 Test Item Value Reference Range Interpretation Comments Hgb (test code = Hgb) 15.5 14.0-18.0 [facility] AustinIwhfzwhUDBMKAXQOF8387-66-60 10:21:00 Test Item Value Reference Range Interpretation Comments Hct (test code = Hct) 46.2 42.0-54.0 [facility] AustinMtiazqnRWSHHSFLDG7385-18-83 10:21:00 Test Item Value Reference Range Interpretation Comments MPV (test code = MPV) 9.9 7.4-10.4 [facility] AustinSpzqoomJJGBPDYNAC6743-53-42 10:21:00 Test Item Value Reference Range Interpretation Comments RDW (test code = RDW) 13.3 11.5-14.5 [facility] AustinBgikjfiCIMBQPWOPP8995-84-18 10:21:00 Test Item Value Reference Range Interpretation Comments MCHC (test code = MCHC) 33.5 32.0-36.0 [facility] AustinHgujytjKUIMFPZNRN3383-51-24 10:21:00 Test Item Value Reference Range Interpretation Comments Platelet (test code = Platelet) 223 133-450 [facility] AustinPavbxpfBOXRJKUTAW6587-11-89 10:21:00 Test Item Value Reference Range Interpretation Comments MCH (test code = MCH) 30.8 pg 27.0-31.0 [facility] AustinMytjcjjPEYLCJZLTB5471-53-71 10:21:00 Test Item Value Reference Range Interpretation Comments MCV (test code = MCV) 91.9 80.0-94.0 [facility] AustinTyqlfhaWAFLFKFGLX3047-88-58 10:21:00 Test Item Value Reference Range Interpretation Comments Lymphocytes # (test code = Lymphocytes 2.3 1.0-5.5 #) [facility] AustinYitocgvTBVLXKAUWI5964-27-95 10:21:00 Test Item Value Reference Range Interpretation Comments Basophils (test code = 0.4 See_Comment [Aut omated message] The Basophils) system which ge nerated this result tra nsmitted reference range : <=1.0. The reference r tony was not used to int erpret this result as normal/abnormal . [facility] AustinQerfohrCISUPOEAHS3596-66-75 10:21:00 Test Item Value Reference Range Interpretation Comments Monocytes # (test code 0.5 See_Comment [Aut omated message] The = Monocytes #) system which generated this result tra nsmitted reference range : <=0.8. The reference r tony was not used to int erpret this result as normal/abnormal . [facility] AustinSpetlpeTBVQKVRELN9995-50-40 10:21:00 Test Item Value Reference Range Interpretation Comments Segs-Bands # (test code = Segs-Bands #) 10.4 1.5-8.1 [facility] AustinZejmmhjWYYXEXLVJZ2156-50-41 10:21:00 Test Item Value Reference Range Interpretation Comments Monocytes (test code = Monocytes) 3.4 2.0-12.0 [facility] AustinAzbsqndOTSEXWELGP2509-56-09 10:21:00 Test Item Value Reference Range Interpretation Comments Lymphocytes (test code = Lymphocytes) 17.0 20.0-40.0 [facility] AustinAqkuatrFRRNIETDOD8224-50-62 10:21:00 Test Item Value Reference Range Interpretation Comments Eosinophils (test code = 2.3 See_Comment [A utomated message] The Eosinophils) system which ge nerated this result tra nsmitted reference range : <=4.0. The reference r tony was not used to int erpret this result as normal/abnormal . [facility] AustinShzlmvjRJGCJAGPTK5466-25-98 10:21:00 Test Item Value Reference Range Interpretation Comments Segs (test code = Segs) 76.9 45.0-75.0 [facility] AustinSlkwwhlCQFOCWSBSL0092-44-58 10:21:00 Test Item Value Reference Range Interpretation Comments Eosinophils # (test code 0.3 See_Comment [A utomated message] The = Eosinophils #) system whic h generated this result tra nsmitted reference range : <=0.5. The reference r tony was not used to int erpret this result as normal/abnormal . [place] [id number] 10:21:00 Test Item Value Reference Range Interpretation Comments Etoh (%) (test code = Etoh (%)) 0.141 [place] [id number] 10:21:00 Test Item Value Reference Range Interpretation Comments Ethanol Lvl (test code = Ethanol Lvl) 141 [facility] [id number] 07:00:00 Test Item Value Reference Range Interpretation Comments UA Turbidity (test code = Clear (06/08/15 1:00 UA Turbidity) AM) [facility] AND [id number] 07:00:00 Test Item Value Reference Range Interpretation Comments UA Spec Grav (test code = UA Spec 1.015 1 Grav) [facility] AND [id number] 07:00:00 Test Item Value Reference Range Interpretation Comments UA Color (test code = Yellow *NA*(06/08/15 1:00 UA Color) AM) [facility] AND LIRGQ1415-65-27 07:00:00 Test Item Value Reference Range Interpretation Comments UA WBC (test code = UA WBC) 0-2 /HPF [facility] [id number] 07:00:00 Test Item Value Reference Range Interpretation Comments UA Bacteria (test code = UA Occasional /HPF Bacteria) [facility] [id number] 07:00:00 Test Item Value Reference Range Interpretation Comments UA RBC (test code = 0-2 /HPF See_Comment [Automa ezequiel message] The UA RBC) system which ge nerated this result tra nsmitted reference range : <=2. The reference range was not used to interpr et this result as grace l/abnormal. [facility] AND RNVOI4669-39-22 07:00:00 Test Item Value Reference Range Interpretation Comments UA Urobilinogen (test code = UA 0.2 0.1-1.0 Urobilinogen) [facility] AND [id number] 07:00:00 Test Item Value Reference Range Interpretation Comments UA Nitrite (test code Negative (06/08/15 1:00 = UA Nitrite) AM) [facility] AND [id number] 07:00:00 Test Item Value Reference Range Interpretation Comments Micro? (test code = Performed (06/08/15 1:00 Micro?) AM) [facility] AND [id number] 07:00:00 Test Item Value Reference Range Interpretation Comments UA Leuk Est (test Negative (06/08/15 1:00 code = UA Leuk Est) AM) [facility] AND [id number] 07:00:00 Test Item Value Reference Range Interpretation Comments UA Sq Epi (test code = UA Sq Epi) Few /LPF [facility] AND [id number] 07:00:00 Test Item Value Reference Range Interpretation Comments UA Protein (test code Negative (06/08/15 1:00 = UA Protein) AM) [facility] AND [id number] 07:00:00 Test Item Value Reference Range Interpretation Comments UA Glucose (test code Negative (06/08/15 1:00 = UA Glucose) AM) [facility] AND [id number] 07:00:00 Test Item Value Reference Range Interpretation Comments UA Bili (test code = Negative *NA*(06/08/15 UA Bili) 1:00 AM) [facility] AND [id number] 07:00:00 Test Item Value Reference Range Interpretation Comments UA Ketones (test code = UA Ketones) 15 mg/dL [facility] AND [id number] 07:00:00 Test Item Value Reference Range Interpretation Comments UA Blood (test code = Trace *ABN*(06/08/15 UA Blood) 1:00 AM) [facility] AND [id number] 07:00:00 Test Item Value Reference Range Interpretation Comments UA pH (test code = UA pH) 6.0 1 5.0-8.0 [facility] AND [id number] 07:00:00 Test Item Value Reference Range Interpretation Comments UA Turbidity (test code = Clear (06/08/15 1:00 UA Turbidity) AM) [facility] [id number] 07:00:00 Test Item Value Reference Range Interpretation Comments UA Spec Grav (test code = UA Spec 1.015 1 Grav) [facility] [id number] 07:00:00 Test Item Value Reference Range Interpretation Comments UA Color (test code = Yellow *NA*(06/08/15 1:00 UA Color) AM) [facility] [id number] 07:00:00 Test Item Value Reference Range Interpretation Comments UA WBC (test code = UA WBC) 0-2 /HPF [facility] [id number] 07:00:00 Test Item Value Reference Range Interpretation Comments UA Bacteria (test code = UA Occasional /HPF Bacteria) [facility] AND [id number] 07:00:00 Test Item Value Reference Range Interpretation Comments UA RBC (test code = 0-2 /HPF See_Comment [Automa ezequiel message] The UA RBC) system which ge nerated this result tra nsmitted reference range : <=2. The reference range was not used to interpr et this result as grace l/abnormal. [facility] AND [id number] 07:00:00 Test Item Value Reference Range Interpretation Comments UA Urobilinogen (test code = UA 0.2 0.1-1.0 Urobilinogen) [facility] AND [id number] 07:00:00 Test Item Value Reference Range Interpretation Comments UA Nitrite (test code Negative (06/08/15 1:00 = UA Nitrite) AM) [facility] AND [id number] 07:00:00 Test Item Value Reference Range Interpretation Comments Micro? (test code = Performed (06/08/15 1:00 Micro?) AM) [facility] AND [id number] 07:00:00 Test Item Value Reference Range Interpretation Comments UA Leuk Est (test Negative (06/08/15 1:00 code = UA Leuk Est) AM) [facility] AND [id number] 07:00:00 Test Item Value Reference Range Interpretation Comments UA Sq Epi (test code = UA Sq Epi) Few /LPF [facility] [id number] 07:00:00 Test Item Value Reference Range Interpretation Comments UA Protein (test code Negative (06/08/15 1:00 = UA Protein) AM) [facility] AND [id number] 07:00:00 Test Item Value Reference Range Interpretation Comments UA Glucose (test code Negative (06/08/15 1:00 = UA Glucose) AM) [facility] AND [id number] 07:00:00 Test Item Value Reference Range Interpretation Comments UA Bili (test code = Negative *NA*(06/08/15 UA Bili) 1:00 AM) [facility] AND [id number] 07:00:00 Test Item Value Reference Range Interpretation Comments UA Ketones (test code = UA Ketones) 15 mg/dL [facility] AND [id number] 07:00:00 Test Item Value Reference Range Interpretation Comments UA Blood (test code = Trace *ABN*(06/08/15 UA Blood) 1:00 AM) [facility] AND [id number] 07:00:00 Test Item Value Reference Range Interpretation Comments UA pH (test code = UA pH) 6.0 1 5.0-8.0 [facility] AND [id number] 07:00:00 Test Item Value Reference Range Interpretation Comments UA Turbidity (test code = Clear (06/08/15 1:00 UA Turbidity) AM) [facility] AND [id number] 07:00:00 Test Item Value Reference Range Interpretation Comments UA Spec Grav (test code = UA Spec 1.015 1 Grav) [facility] AND [id number] 07:00:00 Test Item Value Reference Range Interpretation Comments UA Color (test code = Yellow *NA*(06/08/15 1:00 UA Color) AM) [facility] AND [id number] 07:00:00 Test Item Value Reference Range Interpretation Comments UA WBC (test code = UA WBC) 0-2 /HPF [facility] AND [id number] 07:00:00 Test Item Value Reference Range Interpretation Comments UA Bacteria (test code = UA Occasional /HPF Bacteria) [facility] AND [id number] 07:00:00 Test Item Value Reference Range Interpretation Comments UA RBC (test code = 0-2 /HPF See_Comment [Automa eezquiel message] The UA RBC) system which ge nerated this result tra nsmitted reference range : <=2. The reference range was not used to interpr et this result as grace l/abnormal. [facility] AND [id number] 07:00:00 Test Item Value Reference Range Interpretation Comments UA Urobilinogen (test code = UA 0.2 0.1-1.0 Urobilinogen) [facility] AND [id number] 07:00:00 Test Item Value Reference Range Interpretation Comments UA Nitrite (test code Negative (06/08/15 1:00 = UA Nitrite) AM) [facility] AND [id number] 07:00:00 Test Item Value Reference Range Interpretation Comments Micro? (test code = Performed (06/08/15 1:00 Micro?) AM) [facility] AND [id number] 07:00:00 Test Item Value Reference Range Interpretation Comments UA Leuk Est (test Negative (06/08/15 1:00 code = UA Leuk Est) AM) [facility] AND [id number] 07:00:00 Test Item Value Reference Range Interpretation Comments UA Sq Epi (test code = UA Sq Epi) Few /LPF [facility] AND [id number] 07:00:00 Test Item Value Reference Range Interpretation Comments UA Protein (test code Negative (06/08/15 1:00 = UA Protein) AM) [facility] AND [id number] 07:00:00 Test Item Value Reference Range Interpretation Comments UA Glucose (test code Negative (06/08/15 1:00 = UA Glucose) AM) [facility] AND [id number] 07:00:00 Test Item Value Reference Range Interpretation Comments UA Bili (test code = Negative *NA*(06/08/15 UA Bili) 1:00 AM) [facility] AND [id number] 07:00:00 Test Item Value Reference Range Interpretation Comments UA Ketones (test code = UA Ketones) 15 mg/dL [facility] AND [id number] 07:00:00 Test Item Value Reference Range Interpretation Comments UA Blood (test code = Trace *ABN*(06/08/15 UA Blood) 1:00 AM) [facility] AND [id number] 07:00:00 Test Item Value Reference Range Interpretation Comments UA pH (test code = UA pH) 6.0 1 5.0-8.0 [facility] AND [id number] 07:00:00 Test Item Value Reference Range Interpretation Comments UA Turbidity (test code = Clear (06/08/15 1:00 UA Turbidity) AM) [facility] AND [id number] 07:00:00 Test Item Value Reference Range Interpretation Comments UA Spec Grav (test code = UA Spec 1.015 1 Grav) [facility] AND [id number] 07:00:00 Test Item Value Reference Range Interpretation Comments UA Color (test code = Yellow *NA*(06/08/15 1:00 UA Color) AM) [facility] AND [id number] 07:00:00 Test Item Value Reference Range Interpretation Comments UA WBC (test code = UA WBC) 0-2 /HPF [facility] AND [id number] 07:00:00 Test Item Value Reference Range Interpretation Comments UA Bacteria (test code = UA Occasional /HPF Bacteria) [facility] AND [id number] 07:00:00 Test Item Value Reference Range Interpretation Comments UA RBC (test code = 0-2 /HPF See_Comment [Automa ezequiel message] The UA RBC) system which ge nerated this result tra nsmitted reference range : <=2. The reference range was not used to interpr et this result as grace l/abnormal. [facility] AND [id number] 07:00:00 Test Item Value Reference Range Interpretation Comments UA Urobilinogen (test code = UA 0.2 0.1-1.0 Urobilinogen) [facility] AND [id number] 07:00:00 Test Item Value Reference Range Interpretation Comments UA Nitrite (test code Negative (06/08/15 1:00 = UA Nitrite) AM) [facility] AND [id number] 07:00:00 Test Item Value Reference Range Interpretation Comments Micro? (test code = Performed (06/08/15 1:00 Micro?) AM) [facility] AND [id number] 07:00:00 Test Item Value Reference Range Interpretation Comments UA Leuk Est (test Negative (06/08/15 1:00 code = UA Leuk Est) AM) [facility] AND [id number] 07:00:00 Test Item Value Reference Range Interpretation Comments UA Sq Epi (test code = UA Sq Epi) Few /LPF [facility] AND [id number] 07:00:00 Test Item Value Reference Range Interpretation Comments UA Protein (test code Negative (06/08/15 1:00 = UA Protein) AM) [facility] AND [id number] 07:00:00 Test Item Value Reference Range Interpretation Comments UA Glucose (test code Negative (06/08/15 1:00 = UA Glucose) AM) [facility] AND [id number] 07:00:00 Test Item Value Reference Range Interpretation Comments UA Bili (test code = Negative *NA*(06/08/15 UA Bili) 1:00 AM) [facility] AND [id number] 07:00:00 Test Item Value Reference Range Interpretation Comments UA Ketones (test code = UA Ketones) 15 mg/dL [facility] AND [id number] 07:00:00 Test Item Value Reference Range Interpretation Comments UA Blood (test code = Trace *ABN*(06/08/15 UA Blood) 1:00 AM) [facility] AND [id number] 07:00:00 Test Item Value Reference Range Interpretation Comments UA pH (test code = UA pH) 6.0 1 5.0-8.0 [facility] AND [id number] 07:00:00 Test Item Value Reference Range Interpretation Comments UA Turbidity (test code = Clear (06/08/15 1:00 UA Turbidity) AM) [facility] AND [id number] 07:00:00 Test Item Value Reference Range Interpretation Comments UA Spec Grav (test code = UA Spec 1.015 1 Grav) [facility] AND [id number] 07:00:00 Test Item Value Reference Range Interpretation Comments UA Color (test code = Yellow *NA*(06/08/15 1:00 UA Color) AM) [facility] AND [id number] 07:00:00 Test Item Value Reference Range Interpretation Comments UA WBC (test code = UA WBC) 0-2 /HPF [facility] AND [id number] 07:00:00 Test Item Value Reference Range Interpretation Comments UA Bacteria (test code = UA Occasional /HPF Bacteria) [facility] AND [id number] 07:00:00 Test Item Value Reference Range Interpretation Comments UA RBC (test code = 0-2 /HPF See_Comment [Automa ezequiel message] The UA RBC) system which ge nerated this result tra nsmitted reference range : <=2. The reference range was not used to interpr et this result as grace l/abnormal. [facility] AND [id number] 07:00:00 Test Item Value Reference Range Interpretation Comments UA Urobilinogen (test code = UA 0.2 0.1-1.0 Urobilinogen) [facility] AND [id number] 07:00:00 Test Item Value Reference Range Interpretation Comments UA Nitrite (test code Negative (06/08/15 1:00 = UA Nitrite) AM) [facility] AND [id number] 07:00:00 Test Item Value Reference Range Interpretation Comments Micro? (test code = Performed (06/08/15 1:00 Micro?) AM) [facility] AND [id number] 07:00:00 Test Item Value Reference Range Interpretation Comments UA Leuk Est (test Negative (06/08/15 1:00 code = UA Leuk Est) AM) [facility] AND [id number] 07:00:00 Test Item Value Reference Range Interpretation Comments UA Sq Epi (test code = UA Sq Epi) Few /LPF [facility] AND [id number] 07:00:00 Test Item Value Reference Range Interpretation Comments UA Protein (test code Negative (06/08/15 1:00 = UA Protein) AM) [facility] AND [id number] 07:00:00 Test Item Value Reference Range Interpretation Comments UA Glucose (test code Negative (06/08/15 1:00 = UA Glucose) AM) [facility] AND [id number] 07:00:00 Test Item Value Reference Range Interpretation Comments UA Bili (test code = Negative *NA*(06/08/15 UA Bili) 1:00 AM) [facility] AND [id number] 07:00:00 Test Item Value Reference Range Interpretation Comments UA Ketones (test code = UA Ketones) 15 mg/dL [facility] AND [id number] 07:00:00 Test Item Value Reference Range Interpretation Comments UA Blood (test code = Trace *ABN*(06/08/15 UA Blood) 1:00 AM) [facility] AND [id number] 07:00:00 Test Item Value Reference Range Interpretation Comments UA pH (test code = UA pH) 6.0 1 5.0-8.0 [facility] AND [id number] 07:00:00 Test Item Value Reference Range Interpretation Comments UA Turbidity (test code = Clear (06/08/15 1:00 UA Turbidity) AM) [facility] AND [id number] 07:00:00 Test Item Value Reference Range Interpretation Comments UA Spec Grav (test code = UA Spec 1.015 1 Grav) [facility] AND [id number] 07:00:00 Test Item Value Reference Range Interpretation Comments UA Color (test code = Yellow *NA*(06/08/15 1:00 UA Color) AM) [facility] AND [id number] 07:00:00 Test Item Value Reference Range Interpretation Comments UA WBC (test code = UA WBC) 0-2 /HPF [facility] AND [id number] 07:00:00 Test Item Value Reference Range Interpretation Comments UA Bacteria (test code = UA Occasional /HPF Bacteria) [facility] AND [id number] 07:00:00 Test Item Value Reference Range Interpretation Comments UA RBC (test code = 0-2 /HPF See_Comment [Automa ezequiel message] The UA RBC) system which ge nerated this result tra nsmitted reference range : <=2. The reference range was not used to interpr et this result as grace l/abnormal. [facility] AND [id number] 07:00:00 Test Item Value Reference Range Interpretation Comments UA Urobilinogen (test code = UA 0.2 0.1-1.0 Urobilinogen) [facility] AND [id number] 07:00:00 Test Item Value Reference Range Interpretation Comments UA Nitrite (test code Negative (06/08/15 1:00 = UA Nitrite) AM) [facility] AND [id number] 07:00:00 Test Item Value Reference Range Interpretation Comments Micro? (test code = Performed (06/08/15 1:00 Micro?) AM) [facility] AND [id number] 07:00:00 Test Item Value Reference Range Interpretation Comments UA Leuk Est (test Negative (06/08/15 1:00 code = UA Leuk Est) AM) [facility] AND [id number] 07:00:00 Test Item Value Reference Range Interpretation Comments UA Sq Epi (test code = UA Sq Epi) Few /LPF [facility] AND [id number] 07:00:00 Test Item Value Reference Range Interpretation Comments UA Protein (test code Negative (06/08/15 1:00 = UA Protein) AM) [facility] AND [id number] 07:00:00 Test Item Value Reference Range Interpretation Comments UA Glucose (test code Negative (06/08/15 1:00 = UA Glucose) AM) [facility] AND [id number] 07:00:00 Test Item Value Reference Range Interpretation Comments UA Bili (test code = Negative *NA*(06/08/15 UA Bili) 1:00 AM) [facility] AND [id number] 07:00:00 Test Item Value Reference Range Interpretation Comments UA Ketones (test code = UA Ketones) 15 mg/dL [facility] AND [id number] 07:00:00 Test Item Value Reference Range Interpretation Comments UA Blood (test code = Trace *ABN*(06/08/15 UA Blood) 1:00 AM) [facility] AND [id number] 07:00:00 Test Item Value Reference Range Interpretation Comments UA pH (test code = UA pH) 6.0 1 5.0-8.0 [facility]2016-01-06 05:32:00 Test Item Value Reference Range Interpretation Comments Lipase Lvl (test code = Lipase Lvl) 91 73-393 [facility]2016-01-06 05:32:00 Test Item Value Reference Range Interpretation Comments B/C Ratio (test code = B/C Ratio) 9 6-25 [facility]2016-01-06 05:32:00 Test Item Value Reference Range Interpretation Comments AGAP (test code = AGAP) 12.8 10.0-20.0 [facility]2016-01-06 05:32:00 Test Item Value Reference Range Interpretation Comments Globulin (test code = Globulin) 3.7 2.0-4.0 [facility]2016-01-06 05:32:00 Test Item Value Reference Range Interpretation Comments A/G Ratio (test code = A/G Ratio) 1.1 0.7-1.6 [facility]2016-01-06 05:32:00 Test Item Value Reference Range Interpretation Comments eGFR (test code = eGFR) 77 [facility]2016-01-06 05:32:00 Test Item Value Reference Range Interpretation Comments Glucose Lvl (test code = Glucose Lvl) 114 70-99 [facility]2016-01-06 05:32:00 Test Item Value Reference Range Interpretation Comments BUN (test code = BUN) 11 7-22 [facility]2016-01-06 05:32:00 Test Item Value Reference Range Interpretation Comments AST (test code = AST) 23 See_Comment [Auto mated message] The system which ge nerated this result transmit ezequiel reference range : <=37. The reference range was not used to interpr et this result as grace l/abnormal. [facility]2016-01-06 05:32:00 Test Item Value Reference Range Interpretation Comments Alk Phos (test code = Alk Phos) 72 39-136 [facility]2016-01-06 05:32:00 Test Item Value Reference Range Interpretation Comments ALT (test code = ALT) 34 See_Comment [Auto mated message] The system which ge nerated this result transmit ezequiel reference range : <=65. The reference range was not used to interpr et this result as grace l/abnormal. [facility]2016-01-06 05:32:00 Test Item Value Reference Range Interpretation Comments Chloride Lvl (test code = Chloride Lvl) 102 95-109 [facility]2016-01-06 05:32:00 Test Item Value Reference Range Interpretation Comments Creatinine Lvl (test code = Creatinine 1.28 0.50-1.40 Lvl) [facility]2016-01-06 05:32:00 Test Item Value Reference Range Interpretation Comments Sodium Lvl (test code = Sodium Lvl) 135 135-145 [facility]2016-01-06 05:32:00 Test Item Value Reference Range Interpretation Comments Potassium Lvl (test code = Potassium 3.8 3.5-5.1 Lvl) [facility]2016-01-06 05:32:00 Test Item Value Reference Range Interpretation Comments Bili Total (test code = Bili Total) 0.5 0.2-1.3 [facility]2016-01-06 05:32:00 Test Item Value Reference Range Interpretation Comments Calcium Lvl (test code = Calcium Lvl) 8.5 8.5-10.5 [facility]2016-01-06 05:32:00 Test Item Value Reference Range Interpretation Comments CO2 (test code = CO2) 24 24-32 [facility]2016-01-06 05:32:00 Test Item Value Reference Range Interpretation Comments Albumin Lvl (test code = Albumin Lvl) 4.1 3.5-5.0 [facility]2016-01-06 05:32:00 Test Item Value Reference Range Interpretation Comments Total Protein (test code = Total 7.8 6.4-8.4 Protein) [id number]:32:00 Test Item Value Reference Range Interpretation Comments Platelet (test code = Platelet) 196 133-450 [facility]TipotzgLIWRXGSVRK1985-15-89 05:32:00 Test Item Value Reference Range Interpretation Comments RDW (test code = RDW) 12.4 11.5-14.5 [facility] Aust[id number] 05:32:00 Test Item Value Reference Range Interpretation Comments MPV (test code = MPV) 10.1 7.4-10.4 [facility] AustinQqkuolzSNOZCLDBIM0312-43-67 05:32:00 Test Item Value Reference Range Interpretation Comments MCH (test code = MCH) 30.6 pg 27.0-31.0 [facility] AustinUirzcaxRDPMJCZUEX3760-29-31 05:32:00 Test Item Value Reference Range Interpretation Comments MCV (test code = MCV) 92.6 80.0-94.0 [facility] AustinQkkodtkCISRICFXYZ5182-14-80 05:32:00 Test Item Value Reference Range Interpretation Comments Hct (test code = Hct) 45.9 42.0-54.0 [facility] AustinFrsqcvkZCGOXEPSPG8766-30-11 05:32:00 Test Item Value Reference Range Interpretation Comments Hgb (test code = Hgb) 15.2 14.0-18.0 [facility] AustinSncchxqVUQYZADNGF2502-59-74 05:32:00 Test Item Value Reference Range Interpretation Comments RBC (test code = RBC) 4.95 4.70-6.10 [facility] AustinRezimryLUEQAPNYOB9256-36-94 05:32:00 Test Item Value Reference Range Interpretation Comments WBC (test code = WBC) 15.2 3.7-10.4 [facility] AustinBymslaeRGJCGTPMQG0663-63-76 05:32:00 Test Item Value Reference Range Interpretation Comments MCHC (test code = MCHC) 33.1 32.0-36.0 [facility] AustinStsnavpIBARWCBDQX4734-47-37 05:32:00 Test Item Value Reference Range Interpretation Comments Monocytes # (test code 1.0 See_Comment [Aut omated message] The = Monocytes #) system which generated this result tra nsmitted reference range : <=0.8. The reference r tony was not used to int erpret this result as normal/abnormal . [facility] AustinAtbyibaZUHAMGXSXV5898-06-82 05:32:00 Test Item Value Reference Range Interpretation Comments Basophils # (test code 0.1 See_Comment [Aut omated message] The = Basophils #) system which generated this result tra nsmitted reference range : <=0.2. The reference r tony was not used to int erpret this result as normal/abnormal . [facility] AustinDhgvsblAIAENTTFHT3746-89-61 05:32:00 Test Item Value Reference Range Interpretation Comments Eosinophils (test code = 0.1 See_Comment [A utomated message] The Eosinophils) system which ge nerated this result tra nsmitted reference range : <=4.0. The reference r tony was not used to int erpret this result as normal/abnormal . [facility] AustinPqkxyoaSUNWNTUXGS1593-89-22 05:32:00 Test Item Value Reference Range Interpretation Comments Basophils (test code = 0.5 See_Comment [Aut omated message] The Basophils) system which ge nerated this result tra nsmitted reference range : <=1.0. The reference r tony was not used to int erpret this result as normal/abnormal . [facility] AustinLagleslELBYAQOVXL7664-20-10 05:32:00 Test Item Value Reference Range Interpretation Comments Segs-Bands # (test code = Segs-Bands #) 12.6 1.5-8.1 [facility] AustinChbsguxZTYQETIWIV9886-22-48 05:32:00 Test Item Value Reference Range Interpretation Comments Lymphocytes (test code = Lymphocytes) 10.2 20.0-40.0 [facility] AustinFlgsefqDIKKZOWPRS0423-28-89 05:32:00 Test Item Value Reference Range Interpretation Comments Monocytes (test code = Monocytes) 6.6 2.0-12.0 [facility] AustinRivdidaWWQESHTDKB6040-93-20 05:32:00 Test Item Value Reference Range Interpretation Comments Lymphocytes # (test code = Lymphocytes 1.6 1.0-5.5 #) [facility] AustinBaxefhrPOVKLLTCEC1556-79-77 05:32:00 Test Item Value Reference Range Interpretation Comments Segs (test code = Segs) 82.6 45.0-75.0 [facility]2016-01-06 05:32:00 Test Item Value Reference Range Interpretation Comments Lipase Lvl (test code = Lipase Lvl) 91 73-393 [facility]2016-01-06 05:32:00 Test Item Value Reference Range Interpretation Comments B/C Ratio (test code = B/C Ratio) 9 6-25 [facility]2016-01-06 05:32:00 Test Item Value Reference Range Interpretation Comments AGAP (test code = AGAP) 12.8 10.0-20.0 [facility]2016-01-06 05:32:00 Test Item Value Reference Range Interpretation Comments Globulin (test code = Globulin) 3.7 2.0-4.0 [place] 585816-01-06 05:32:00 Test Item Value Reference Range Interpretation Comments A/G Ratio (test code = A/G Ratio) 1.1 0.7-1.6 [place] 585816-01-06 05:32:00 Test Item Value Reference Range Interpretation Comments eGFR (test code = eGFR) 77 [facility]2016-01-06 05:32:00 Test Item Value Reference Range Interpretation Comments Glucose Lvl (test code = Glucose Lvl) 114 70-99 [facility]2016-01-06 05:32:00 Test Item Value Reference Range Interpretation Comments BUN (test code = BUN) 11 7-22 [place] 585816-01-06 05:32:00 Test Item Value Reference Range Interpretation Comments AST (test code = AST) 23 See_Comment [Auto mated message] The system which ge nerated this result transmit ezequiel reference range : <=37. The reference range was not used to interpr et this result as grace l/abnormal. [facility]2016-01-06 05:32:00 Test Item Value Reference Range Interpretation Comments Alk Phos (test code = Alk Phos) 72 39-136 [facility]2016-01-06 05:32:00 Test Item Value Reference Range Interpretation Comments ALT (test code = ALT) 34 See_Comment [Auto mated message] The system which ge nerated this result transmit ezequiel reference range : <=65. The reference range was not used to interpr et this result as grace l/abnormal. [facility]2016-01-06 05:32:00 Test Item Value Reference Range Interpretation Comments Chloride Lvl (test code = Chloride Lvl) 102 95-109 [place] 585816-01-06 05:32:00 Test Item Value Reference Range Interpretation Comments Creatinine Lvl (test code = Creatinine 1.28 0.50-1.40 Lvl) [facility]2016-01-06 05:32:00 Test Item Value Reference Range Interpretation Comments Sodium Lvl (test code = Sodium Lvl) 135 135-145 [facility]2016-01-06 05:32:00 Test Item Value Reference Range Interpretation Comments Potassium Lvl (test code = Potassium 3.8 3.5-5.1 Lvl) [place] 585816-01-06 05:32:00 Test Item Value Reference Range Interpretation Comments Bili Total (test code = Bili Total) 0.5 0.2-1.3 [facility]2016-01-06 05:32:00 Test Item Value Reference Range Interpretation Comments Calcium Lvl (test code = Calcium Lvl) 8.5 8.5-10.5 [facility]2016-01-06 05:32:00 Test Item Value Reference Range Interpretation Comments CO2 (test code = CO2) 24 24-32 [facility]2016-01-06 05:32:00 Test Item Value Reference Range Interpretation Comments Albumin Lvl (test code = Albumin Lvl) 4.1 3.5-5.0 [facility]2016-01-06 05:32:00 Test Item Value Reference Range Interpretation Comments Total Protein (test code = Total 7.8 6.4-8.4 Protein) [facility] AustinDpprwyhTCSLLXWBAX1822-48-74 05:32:00 Test Item Value Reference Range Interpretation Comments Platelet (test code = Platelet) 196 133-450 [facility] AustinQycnylfZIIBGZHGKK7825-75-41 05:32:00 Test Item Value Reference Range Interpretation Comments RDW (test code = RDW) 12.4 11.5-14.5 [facility] AustinSwcuooqLXTPVOYIRT0004-39-10 05:32:00 Test Item Value Reference Range Interpretation Comments MPV (test code = MPV) 10.1 7.4-10.4 [facility] AustinVhtnauqOFUZZGDAVF3070-65-78 05:32:00 Test Item Value Reference Range Interpretation Comments MCH (test code = MCH) 30.6 pg 27.0-31.0 [facility] AustinNbjjzfzPBSSHKRAQD0903-90-34 05:32:00 Test Item Value Reference Range Interpretation Comments MCV (test code = MCV) 92.6 80.0-94.0 [place] 753666-01-06 05:32:00 Test Item Value Reference Range Interpretation Comments Hct (test code = Hct) 45.9 42.0-54.0 [facility] [place]HZHXVJFFP9520-16-94 05:32:00 Test Item Value Reference Range Interpretation Comments Hgb (test code = Hgb) 15.2 14.0-18.0 [facility] [place]SnjozyhKFHRIDASCP5380-01-46 05:32:00 Test Item Value Reference Range Interpretation Comments RBC (test code = RBC) 4.95 4.70-6.10 [facility] [place]MohslxvBQLQVNCSBP0519-30-17 05:32:00 Test Item Value Reference Range Interpretation Comments WBC (test code = WBC) 15.2 3.7-10.4 [facility] AustinSmepustMKHPENKAFV8730-31-43 05:32:00 Test Item Value Reference Range Interpretation Comments MCHC (test code = MCHC) 33.1 32.0-36.0 [facility] [place]XthshqkZXJXLDHEAA6049-16-78 05:32:00 Test Item Value Reference Range Interpretation Comments Monocytes # (test code 1.0 See_Comment [Aut omated message] The = Monocytes #) system which generated this result tra nsmitted reference range : <=0.8. The reference r tony was not used to int erpret this result as normal/abnormal . [facility] AustinRrvqqtfEYJOWUEYDY3539-60-50 05:32:00 Test Item Value Reference Range Interpretation Comments Basophils # (test code 0.1 See_Comment [Aut omated message] The = Basophils #) system which generated this result tra nsmitted reference range : <=0.2. The reference r tony was not used to int erpret this result as normal/abnormal . [facility] AustinKhjgbraFKUCIAZILR2675-75-77 05:32:00 Test Item Value Reference Range Interpretation Comments Eosinophils (test code = 0.1 See_Comment [A utomated message] The Eosinophils) system which ge nerated this result tra nsmitted reference range : <=4.0. The reference r tony was not used to int erpret this result as normal/abnormal . [facility] AustinFkphjvtAVAGQFFQJR0920-31-99 05:32:00 Test Item Value Reference Range Interpretation Comments Basophils (test code = 0.5 See_Comment [Aut omated message] The Basophils) system which ge nerated this result tra nsmitted reference range : <=1.0. The reference r tony was not used to int erpret this result as normal/abnormal . [facility] AustinCvdfosvIZSVDLOBDV7738-64-43 05:32:00 Test Item Value Reference Range Interpretation Comments Segs-Bands # (test code = Segs-Bands #) 12.6 1.5-8.1 [facility] AustinPxvccagAELIRAGDLE4843-16-66 05:32:00 Test Item Value Reference Range Interpretation Comments Lymphocytes (test code = Lymphocytes) 10.2 20.0-40.0 [facility] AustinJxudrfzYGILBLBUEQ6937-75-52 05:32:00 Test Item Value Reference Range Interpretation Comments Monocytes (test code = Monocytes) 6.6 2.0-12.0 [facility] AustinTigsxbvOOHVWIBPAL0555-00-92 05:32:00 Test Item Value Reference Range Interpretation Comments Lymphocytes # (test code = Lymphocytes 1.6 1.0-5.5 #) [facility] AustinAjwbwmaLQNGTXCJII2551-08-31 05:32:00 Test Item Value Reference Range Interpretation Comments Segs (test code = Segs) 82.6 45.0-75.0 [facility]2016-01-06 05:32:00 Test Item Value Reference Range Interpretation Comments Lipase Lvl (test code = Lipase Lvl) 91 73-393 [facility]2016-01-06 05:32:00 Test Item Value Reference Range Interpretation Comments B/C Ratio (test code = B/C Ratio) 9 6-25 [facility]2016-01-06 05:32:00 Test Item Value Reference Range Interpretation Comments AGAP (test code = AGAP) 12.8 10.0-20.0 [facility]2016-01-06 05:32:00 Test Item Value Reference Range Interpretation Comments Globulin (test code = Globulin) 3.7 2.0-4.0 [facility]2016-01-06 05:32:00 Test Item Value Reference Range Interpretation Comments A/G Ratio (test code = A/G Ratio) 1.1 0.7-1.6 [facility]2016-01-06 05:32:00 Test Item Value Reference Range Interpretation Comments eGFR (test code = eGFR) 77 [facility]2016-01-06 05:32:00 Test Item Value Reference Range Interpretation Comments Glucose Lvl (test code = Glucose Lvl) 114 70-99 [facility]2016-01-06 05:32:00 Test Item Value Reference Range Interpretation Comments BUN (test code = BUN) 11 7-22 [facility]13 05:32:00 Test Item Value Reference Range Interpretation Comments AST (test code = AST) 23 See_Comment [Auto mated message] The system which ge nerated this result transmit ezequiel reference range : <=37. The reference range was not used to interpr et this result as grace l/abnormal. [facility] ATOSU0756-44-85 05:32:00 Test Item Value Reference Range Interpretation Comments Alk Phos (test code = Alk Phos) 72 39-136 [facility] MQSCM4076-64-13 05:32:00 Test Item Value Reference Range Interpretation Comments ALT (test code = ALT) 34 See_Comment [Auto mated message] The system which ge nerated this result transmit ezequiel reference range : <=65. The reference range was not used to interpr et this result as grace l/abnormal. [facility] JRLQE8946-15-62 05:32:00 Test Item Value Reference Range Interpretation Comments Chloride Lvl (test code = Chloride Lvl) 102 95-109 [facility] GTCSX9352-82-63 05:32:00 Test Item Value Reference Range Interpretation Comments Creatinine Lvl (test code = Creatinine 1.28 0.50-1.40 Lvl) [facility] VHVPC0022-08-93 05:32:00 Test Item Value Reference Range Interpretation Comments Sodium Lvl (test code = Sodium Lvl) 135 135-145 [facility] QYBQL1121-12-16 05:32:00 Test Item Value Reference Range Interpretation Comments Potassium Lvl (test code = Potassium 3.8 3.5-5.1 Lvl) [facility] MZHCA5596-78-04 05:32:00 Test Item Value Reference Range Interpretation Comments Bili Total (test code = Bili Total) 0.5 0.2-1.3 [facility] AIPON0987-78-06 05:32:00 Test Item Value Reference Range Interpretation Comments Calcium Lvl (test code = Calcium Lvl) 8.5 8.5-10.5 [facility] FAUNV7816-04-28 05:32:00 Test Item Value Reference Range Interpretation Comments CO2 (test code = CO2) 24 24-32 [facility]2016-01-06 05:32:00 Test Item Value Reference Range Interpretation Comments Albumin Lvl (test code = Albumin Lvl) 4.1 3.5-5.0 [facility]2016-01-06 05:32:00 Test Item Value Reference Range Interpretation Comments Total Protein (test code = Total 7.8 6.4-8.4 Protein) [facility] AustinWvhtjexDIADXBQFBH1474-25-73 05:32:00 Test Item Value Reference Range Interpretation Comments Platelet (test code = Platelet) 196 133-450 [facility] AustinQnzcmhgMKUJNJALYK9879-12-64 05:32:00 Test Item Value Reference Range Interpretation Comments RDW (test code = RDW) 12.4 11.5-14.5 [facility] AustinYhdolhmIUPLKKNYPL3039-74-95 05:32:00 Test Item Value Reference Range Interpretation Comments MPV (test code = MPV) 10.1 7.4-10.4 [facility] AustinHjttkjqALGQXMLJEN2746-31-58 05:32:00 Test Item Value Reference Range Interpretation Comments MCH (test code = MCH) 30.6 pg 27.0-31.0 [facility] AustinIqunzcaRLRLTQGZUD0264-20-18 05:32:00 Test Item Value Reference Range Interpretation Comments MCV (test code = MCV) 92.6 80.0-94.0 [facility] AustinYedxfdvMPEDUJNLKI9916-01-71 05:32:00 Test Item Value Reference Range Interpretation Comments Hct (test code = Hct) 45.9 42.0-54.0 [facility] AustinLbutjloXBYSXWYVCZ5215-68-71 05:32:00 Test Item Value Reference Range Interpretation Comments Hgb (test code = Hgb) 15.2 14.0-18.0 [facility] AustinAzdtkguPDWQHUFYQZ4441-61-83 05:32:00 Test Item Value Reference Range Interpretation Comments RBC (test code = RBC) 4.95 4.70-6.10 [facility] AustinZbgflqwVWRLCTDRKO7754-89-92 05:32:00 Test Item Value Reference Range Interpretation Comments WBC (test code = WBC) 15.2 3.7-10.4 [facility] AustinYszuzqsWKYIJHFVEV8787-85-10 05:32:00 Test Item Value Reference Range Interpretation Comments MCHC (test code = MCHC) 33.1 32.0-36.0 [facility] AustinQftwheyBFOKCPCNVL2603-78-27 05:32:00 Test Item Value Reference Range Interpretation Comments Monocytes # (test code 1.0 See_Comment [Aut omated message] The = Monocytes #) system which generated this result tra nsmitted reference range : <=0.8. The reference r tony was not used to int erpret this result as normal/abnormal . [facility] AustinJclksjoUAGKQUNGHE6649-85-41 05:32:00 Test Item Value Reference Range Interpretation Comments Basophils # (test code 0.1 See_Comment [Aut omated message] The = Basophils #) system which generated this result tra nsmitted reference range : <=0.2. The reference r tony was not used to int erpret this result as normal/abnormal . [facility] AustinNuscyjpTRGHLOLUQU6550-07-35 05:32:00 Test Item Value Reference Range Interpretation Comments Eosinophils (test code = 0.1 See_Comment [A utomated message] The Eosinophils) system which ge nerated this result tra nsmitted reference range : <=4.0. The reference r tony was not used to int erpret this result as normal/abnormal . [facility] AustinKvjsfmcXRNOCPDJBC0372-62-49 05:32:00 Test Item Value Reference Range Interpretation Comments Basophils (test code = 0.5 See_Comment [Aut omated message] The Basophils) system which ge nerated this result tra nsmitted reference range : <=1.0. The reference r tony was not used to int erpret this result as normal/abnormal . [facility] AustinRfqxzxqCZHMFBKBTE3435-98-37 05:32:00 Test Item Value Reference Range Interpretation Comments Segs-Bands # (test code = Segs-Bands #) 12.6 1.5-8.1 [facility] AustinOrbjuycQDMOPRKFBB7095-87-78 05:32:00 Test Item Value Reference Range Interpretation Comments Lymphocytes (test code = Lymphocytes) 10.2 20.0-40.0 [facility] AustinJkxlefuLJWEYXVQPR0137-14-51 05:32:00 Test Item Value Reference Range Interpretation Comments Monocytes (test code = Monocytes) 6.6 2.0-12.0 [facility] [place]XgskslqNUKDWCKHZK1522-19-14 05:32:00 Test Item Value Reference Range Interpretation Comments Lymphocytes # (test code = Lymphocytes 1.6 1.0-5.5 #) [facility] AustinDohfgvpGOEBGUPRGU4071-86-58 05:32:00 Test Item Value Reference Range Interpretation Comments Segs (test code = Segs) 82.6 45.0-75.0 [facility]2016-01-06 05:32:00 Test Item Value Reference Range Interpretation Comments Lipase Lvl (test code = Lipase Lvl) 91 73-393 [facility]2016-01-06 05:32:00 Test Item Value Reference Range Interpretation Comments B/C Ratio (test code = B/C Ratio) 9 6-25 [facility]2016-01-06 05:32:00 Test Item Value Reference Range Interpretation Comments AGAP (test code = AGAP) 12.8 10.0-20.0 [facility]2016-01-06 05:32:00 Test Item Value Reference Range Interpretation Comments Globulin (test code = Globulin) 3.7 2.0-4.0 [place] 585816-01-06 05:32:00 Test Item Value Reference Range Interpretation Comments A/G Ratio (test code = A/G Ratio) 1.1 0.7-1.6 [place] 585816-01-06 05:32:00 Test Item Value Reference Range Interpretation Comments eGFR (test code = eGFR) 77 [facility]2016-01-06 05:32:00 Test Item Value Reference Range Interpretation Comments Glucose Lvl (test code = Glucose Lvl) 114 70-99 [facility]2016-01-06 05:32:00 Test Item Value Reference Range Interpretation Comments BUN (test code = BUN) 11 7-22 [place] 585816-01-06 05:32:00 Test Item Value Reference Range Interpretation Comments AST (test code = AST) 23 See_Comment [Auto mated message] The system which ge nerated this result transmit ezequiel reference range : <=37. The reference range was not used to interpr et this result as grace l/abnormal. [facility]2016-01-06 05:32:00 Test Item Value Reference Range Interpretation Comments Alk Phos (test code = Alk Phos) 72 39-136 [facility]2016-01-06 05:32:00 Test Item Value Reference Range Interpretation Comments ALT (test code = ALT) 34 See_Comment [Auto mated message] The system which ge nerated this result transmit ezequiel reference range : <=65. The reference range was not used to interpr et this result as grace l/abnormal. [facility]2016-01-06 05:32:00 Test Item Value Reference Range Interpretation Comments Chloride Lvl (test code = Chloride Lvl) 102 95-109 [place] 585816-01-06 05:32:00 Test Item Value Reference Range Interpretation Comments Creatinine Lvl (test code = Creatinine 1.28 0.50-1.40 Lvl) [facility]2016-01-06 05:32:00 Test Item Value Reference Range Interpretation Comments Sodium Lvl (test code = Sodium Lvl) 135 135-145 [facility]2016-01-06 05:32:00 Test Item Value Reference Range Interpretation Comments Potassium Lvl (test code = Potassium 3.8 3.5-5.1 Lvl) [facility]2016-01-06 05:32:00 Test Item Value Reference Range Interpretation Comments Bili Total (test code = Bili Total) 0.5 0.2-1.3 [facility]2016-01-06 05:32:00 Test Item Value Reference Range Interpretation Comments Calcium Lvl (test code = Calcium Lvl) 8.5 8.5-10.5 [facility]2016-01-06 05:32:00 Test Item Value Reference Range Interpretation Comments CO2 (test code = CO2) 24 24-32 [facility]2016-01-06 05:32:00 Test Item Value Reference Range Interpretation Comments Albumin Lvl (test code = Albumin Lvl) 4.1 3.5-5.0 [facility]2016-01-06 05:32:00 Test Item Value Reference Range Interpretation Comments Total Protein (test code = Total 7.8 6.4-8.4 Protein) [facility] AustinZshpyrjJSGWKZTORE7111-08-80 05:32:00 Test Item Value Reference Range Interpretation Comments Platelet (test code = Platelet) 196 133-450 [facility] AustinAhnuyssLOEHNPZMWP1948-23-03 05:32:00 Test Item Value Reference Range Interpretation Comments RDW (test code = RDW) 12.4 11.5-14.5 [facility] AustinYdvrlcvMGLROIZCXO2116-77-56 05:32:00 Test Item Value Reference Range Interpretation Comments MPV (test code = MPV) 10.1 7.4-10.4 [facility] AustinJurivvjIWWRAKESEN9457-36-15 05:32:00 Test Item Value Reference Range Interpretation Comments MCH (test code = MCH) 30.6 pg 27.0-31.0 [facility] AustinRpmmcqfTEPVJCXZYF5786-76-52 05:32:00 Test Item Value Reference Range Interpretation Comments MCV (test code = MCV) 92.6 80.0-94.0 [facility] AustinWqvyjwcXVTAWFMIAP8015-08-78 05:32:00 Test Item Value Reference Range Interpretation Comments Hct (test code = Hct) 45.9 42.0-54.0 [facility] AustinEjjmwmwRIGYWQAMTU5252-73-35 05:32:00 Test Item Value Reference Range Interpretation Comments Hgb (test code = Hgb) 15.2 14.0-18.0 [facility] AustinTymqtmzQGFQAOHFVO8838-43-02 05:32:00 Test Item Value Reference Range Interpretation Comments RBC (test code = RBC) 4.95 4.70-6.10 [facility] AustinEkdfgwkDRDGFZFQLJ1121-58-41 05:32:00 Test Item Value Reference Range Interpretation Comments WBC (test code = WBC) 15.2 3.7-10.4 [facility] AustinBpsqwrtJKKLIFSKAY8143-30-65 05:32:00 Test Item Value Reference Range Interpretation Comments MCHC (test code = MCHC) 33.1 32.0-36.0 [facility] AustinCchxgitDBZMAQKUWX6327-74-14 05:32:00 Test Item Value Reference Range Interpretation Comments Monocytes # (test code 1.0 See_Comment [Aut omated message] The = Monocytes #) system which generated this result tra nsmitted reference range : <=0.8. The reference r tony was not used to int erpret this result as normal/abnormal . [facility] AustinHgohelyEAMHEXLNJD3284-07-86 05:32:00 Test Item Value Reference Range Interpretation Comments Basophils # (test code 0.1 See_Comment [Aut omated message] The = Basophils #) system which generated this result tra nsmitted reference range : <=0.2. The reference r tony was not used to int erpret this result as normal/abnormal . [facility] AustinSfwwolsNTLHSMOTAT1741-52-82 05:32:00 Test Item Value Reference Range Interpretation Comments Eosinophils (test code = 0.1 See_Comment [A utomated message] The Eosinophils) system which ge nerated this result tra nsmitted reference range : <=4.0. The reference r tony was not used to int erpret this result as normal/abnormal . [facility] AustinQhaquvyVLHCWVQAYT9244-18-83 05:32:00 Test Item Value Reference Range Interpretation Comments Basophils (test code = 0.5 See_Comment [Aut omated message] The Basophils) system which ge nerated this result tra nsmitted reference range : <=1.0. The reference r tony was not used to int erpret this result as normal/abnormal . [facility] AustinAruqdcdQHUUITXNTD1335-86-81 05:32:00 Test Item Value Reference Range Interpretation Comments Segs-Bands # (test code = Segs-Bands #) 12.6 1.5-8.1 [facility] AustinIktlwysSOKFLCFKZI5398-05-66 05:32:00 Test Item Value Reference Range Interpretation Comments Lymphocytes (test code = Lymphocytes) 10.2 20.0-40.0 [facility] AustinUxrqjjbYIXNIXQSQI6088-58-70 05:32:00 Test Item Value Reference Range Interpretation Comments Monocytes (test code = Monocytes) 6.6 2.0-12.0 [facility] AustinRwybvlrJQHYPEZVPV1662-23-39 05:32:00 Test Item Value Reference Range Interpretation Comments Lymphocytes # (test code = Lymphocytes 1.6 1.0-5.5 #) [facility] AustinEpjzvunEIQOSVQFKZ2974-10-48 05:32:00 Test Item Value Reference Range Interpretation Comments Segs (test code = Segs) 82.6 45.0-75.0 [facility]2016-01-06 05:32:00 Test Item Value Reference Range Interpretation Comments Lipase Lvl (test code = Lipase Lvl) 91 73-393 [facility]2016-01-06 05:32:00 Test Item Value Reference Range Interpretation Comments B/C Ratio (test code = B/C Ratio) 9 6-25 [facility]2016-01-06 05:32:00 Test Item Value Reference Range Interpretation Comments AGAP (test code = AGAP) 12.8 10.0-20.0 [facility]2016-01-06 05:32:00 Test Item Value Reference Range Interpretation Comments Globulin (test code = Globulin) 3.7 2.0-4.0 [facility]2016-01-06 05:32:00 Test Item Value Reference Range Interpretation Comments A/G Ratio (test code = A/G Ratio) 1.1 0.7-1.6 [facility]2016-01-06 05:32:00 Test Item Value Reference Range Interpretation Comments eGFR (test code = eGFR) 77 [facility]2016-01-06 05:32:00 Test Item Value Reference Range Interpretation Comments Glucose Lvl (test code = Glucose Lvl) 114 70-99 [place] 585816-01-06 05:32:00 Test Item Value Reference Range Interpretation Comments BUN (test code = BUN) 11 7-22 [place] 585816-01-06 05:32:00 Test Item Value Reference Range Interpretation Comments AST (test code = AST) 23 See_Comment [Auto mated message] The system which ge nerated this result transmit ezequiel reference range : <=37. The reference range was not used to interpr et this result as grace l/abnormal. [facility]2016-01-06 05:32:00 Test Item Value Reference Range Interpretation Comments Alk Phos (test code = Alk Phos) 72 39-136 [facility]2016-01-06 05:32:00 Test Item Value Reference Range Interpretation Comments ALT (test code = ALT) 34 See_Comment [Auto mated message] The system which ge nerated this result transmit ezequiel reference range : <=65. The reference range was not used to interpr et this result as grace l/abnormal. [facility]2016-01-06 05:32:00 Test Item Value Reference Range Interpretation Comments Chloride Lvl (test code = Chloride Lvl) 102 95-109 [facility]2016-01-06 05:32:00 Test Item Value Reference Range Interpretation Comments Creatinine Lvl (test code = Creatinine 1.28 0.50-1.40 Lvl) [facility]2016-01-06 05:32:00 Test Item Value Reference Range Interpretation Comments Sodium Lvl (test code = Sodium Lvl) 135 135-145 [place] 585816-01-06 05:32:00 Test Item Value Reference Range Interpretation Comments Potassium Lvl (test code = Potassium 3.8 3.5-5.1 Lvl) [place] 585816-01-06 05:32:00 Test Item Value Reference Range Interpretation Comments Bili Total (test code = Bili Total) 0.5 0.2-1.3 [facility]2016-01-06 05:32:00 Test Item Value Reference Range Interpretation Comments Calcium Lvl (test code = Calcium Lvl) 8.5 8.5-10.5 [facility]2016-01-06 05:32:00 Test Item Value Reference Range Interpretation Comments CO2 (test code = CO2) 24 24-32 [facility]2016-01-06 05:32:00 Test Item Value Reference Range Interpretation Comments Albumin Lvl (test code = Albumin Lvl) 4.1 3.5-5.0 [facility]2016-01-06 05:32:00 Test Item Value Reference Range Interpretation Comments Total Protein (test code = Total 7.8 6.4-8.4 Protein) [facility] AustinBpqpdqnCOKIDVKQLC6388-43-78 05:32:00 Test Item Value Reference Range Interpretation Comments Platelet (test code = Platelet) 196 133-450 [facility] AustinCwczguxSTXJXDNPUB8413-42-74 05:32:00 Test Item Value Reference Range Interpretation Comments RDW (test code = RDW) 12.4 11.5-14.5 [facility] AustinZkwjtgqFSQKPQKALF2607-81-03 05:32:00 Test Item Value Reference Range Interpretation Comments MPV (test code = MPV) 10.1 7.4-10.4 [facility] AustinIwkrpkvDOLMRJTSCZ8458-32-68 05:32:00 Test Item Value Reference Range Interpretation Comments MCH (test code = MCH) 30.6 pg 27.0-31.0 [facility] AustinWfcczvwFSFJOUUMZH5153-78-59 05:32:00 Test Item Value Reference Range Interpretation Comments MCV (test code = MCV) 92.6 80.0-94.0 [place] 753666-01-06 05:32:00 Test Item Value Reference Range Interpretation Comments Hct (test code = Hct) 45.9 42.0-54.0 [place] 753666-01-06 05:32:00 Test Item Value Reference Range Interpretation Comments Hgb (test code = Hgb) 15.2 14.0-18.0 [facility] AustinUvpkvyxYOYENHOXCE7594-31-17 05:32:00 Test Item Value Reference Range Interpretation Comments RBC (test code = RBC) 4.95 4.70-6.10 [facility] AustinVpcphddQRJBQTELVC4894-04-32 05:32:00 Test Item Value Reference Range Interpretation Comments WBC (test code = WBC) 15.2 3.7-10.4 [facility] AustinHndukifGZZNXVUWGQ5121-72-06 05:32:00 Test Item Value Reference Range Interpretation Comments MCHC (test code = MCHC) 33.1 32.0-36.0 [facility] AustinPfeiipuFEOZGTMTST5738-51-33 05:32:00 Test Item Value Reference Range Interpretation Comments Monocytes # (test code 1.0 See_Comment [Aut omated message] The = Monocytes #) system which generated this result tra nsmitted reference range : <=0.8. The reference r tony was not used to int erpret this result as normal/abnormal . [facility] AustinXkcagcbJIVZEQLBXW9516-56-02 05:32:00 Test Item Value Reference Range Interpretation Comments Basophils # (test code 0.1 See_Comment [Aut omated message] The = Basophils #) system which generated this result tra nsmitted reference range : <=0.2. The reference r tony was not used to int erpret this result as normal/abnormal . [facility] AustinDajdjznZFWTOFBOCR6239-13-61 05:32:00 Test Item Value Reference Range Interpretation Comments Eosinophils (test code = 0.1 See_Comment [A utomated message] The Eosinophils) system which ge nerated this result tra nsmitted reference range : <=4.0. The reference r tony was not used to int erpret this result as normal/abnormal . [facility] [place]XggszpjEWHBRURPJG3778-94-20 05:32:00 Test Item Value Reference Range Interpretation Comments Basophils (test code = 0.5 See_Comment [Aut omated message] The Basophils) system which ge nerated this result tra nsmitted reference range : <=1.0. The reference r tony was not used to int erpret this result as normal/abnormal . [facility] AustinUeigeljHUXLGBLLNJ9701-31-50 05:32:00 Test Item Value Reference Range Interpretation Comments Segs-Bands # (test code = Segs-Bands #) 12.6 1.5-8.1 [facility] AustinKvhrcwbHOHSENYCIM6853-10-19 05:32:00 Test Item Value Reference Range Interpretation Comments Lymphocytes (test code = Lymphocytes) 10.2 20.0-40.0 [facility]LmdxrhaOVNQTMNEDG8694-88-57 05:32:00 Test Item Value Reference Range Interpretation Comments Monocytes (test code = Monocytes) 6.6 2.0-12.0 [facility] AustinPucwqlnQWQOQBXIBU1067-75-71 05:32:00 Test Item Value Reference Range Interpretation Comments Lymphocytes # (test code = Lymphocytes 1.6 1.0-5.5 #) [facility] AustinVwjpsmoLFZKGELWMG2577-68-83 05:32:00 Test Item Value Reference Range Interpretation Comments Segs (test code = Segs) 82.6 45.0-75.0 [facility]2016-01-06 05:32:00 Test Item Value Reference Range Interpretation Comments Lipase Lvl (test code = Lipase Lvl) 91 73-393 [facility]2016-01-06 05:32:00 Test Item Value Reference Range Interpretation Comments B/C Ratio (test code = B/C Ratio) 9 6-25 [facility]2016-01-06 05:32:00 Test Item Value Reference Range Interpretation Comments AGAP (test code = AGAP) 12.8 10.0-20.0 [facility]2016-01-06 05:32:00 Test Item Value Reference Range Interpretation Comments Globulin (test code = Globulin) 3.7 2.0-4.0 [facility]2016-01-06 05:32:00 Test Item Value Reference Range Interpretation Comments A/G Ratio (test code = A/G Ratio) 1.1 0.7-1.6 [place] 585816-01-06 05:32:00 Test Item Value Reference Range Interpretation Comments eGFR (test code = eGFR) 77 [facility]2016-01-06 05:32:00 Test Item Value Reference Range Interpretation Comments Glucose Lvl (test code = Glucose Lvl) 114 70-99 [facility]2016-01-06 05:32:00 Test Item Value Reference Range Interpretation Comments BUN (test code = BUN) 11 7-22 [place] 585816-01-06 05:32:00 Test Item Value Reference Range Interpretation Comments AST (test code = AST) 23 See_Comment [Auto mated message] The system which ge nerated this result transmit ezequiel reference range : <=37. The reference range was not used to interpr et this result as grace l/abnormal. [facility]2016-01-06 05:32:00 Test Item Value Reference Range Interpretation Comments Alk Phos (test code = Alk Phos) 72 39-136 [facility]2016-01-06 05:32:00 Test Item Value Reference Range Interpretation Comments ALT (test code = ALT) 34 See_Comment [Auto mated message] The system which ge nerated this result transmit ezequiel reference range : <=65. The reference range was not used to interpr et this result as grace l/abnormal. [facility]2016-01-06 05:32:00 Test Item Value Reference Range Interpretation Comments Chloride Lvl (test code = Chloride Lvl) 102 95-109 [facility]2016-01-06 05:32:00 Test Item Value Reference Range Interpretation Comments Creatinine Lvl (test code = Creatinine 1.28 0.50-1.40 Lvl) [facility]2016-01-06 05:32:00 Test Item Value Reference Range Interpretation Comments Sodium Lvl (test code = Sodium Lvl) 135 135-145 [facility]2016-01-06 05:32:00 Test Item Value Reference Range Interpretation Comments Potassium Lvl (test code = Potassium 3.8 3.5-5.1 Lvl) [facility]2016-01-06 05:32:00 Test Item Value Reference Range Interpretation Comments Bili Total (test code = Bili Total) 0.5 0.2-1.3 [facility]2016-01-06 05:32:00 Test Item Value Reference Range Interpretation Comments Calcium Lvl (test code = Calcium Lvl) 8.5 8.5-10.5 [facility]2016-01-06 05:32:00 Test Item Value Reference Range Interpretation Comments CO2 (test code = CO2) 24 24-32 [facility]2016-01-06 05:32:00 Test Item Value Reference Range Interpretation Comments Albumin Lvl (test code = Albumin Lvl) 4.1 3.5-5.0 [facility]2016-01-06 05:32:00 Test Item Value Reference Range Interpretation Comments Total Protein (test code = Total 7.8 6.4-8.4 Protein) [facility] AustinGlnagyzJZEFXJZSIL7927-98-01 05:32:00 Test Item Value Reference Range Interpretation Comments Platelet (test code = Platelet) 196 133-450 [facility] AustinTkoqwaaSRHVVSDVCF0124-33-35 05:32:00 Test Item Value Reference Range Interpretation Comments RDW (test code = RDW) 12.4 11.5-14.5 [facility] AustinJvzmivmFSKAKMPLWN7824-91-98 05:32:00 Test Item Value Reference Range Interpretation Comments MPV (test code = MPV) 10.1 7.4-10.4 [facility] AustinKabapxvCBLNSVTYII6892-34-56 05:32:00 Test Item Value Reference Range Interpretation Comments MCH (test code = MCH) 30.6 pg 27.0-31.0 [facility] AustinMiyddcnOEFCDTEGGQ9593-44-53 05:32:00 Test Item Value Reference Range Interpretation Comments MCV (test code = MCV) 92.6 80.0-94.0 [facility] AustinUlerzqsQEPIEKGFTG3504-63-95 05:32:00 Test Item Value Reference Range Interpretation Comments Hct (test code = Hct) 45.9 42.0-54.0 [facility] AustinPrnruquUGGGDHIJZO5865-96-77 05:32:00 Test Item Value Reference Range Interpretation Comments Hgb (test code = Hgb) 15.2 14.0-18.0 [facility] AustinGgruxduTLGXTYNFOL3645-51-66 05:32:00 Test Item Value Reference Range Interpretation Comments RBC (test code = RBC) 4.95 4.70-6.10 [facility] AustinSrabtrhYYKYNGBCGD7259-51-05 05:32:00 Test Item Value Reference Range Interpretation Comments WBC (test code = WBC) 15.2 3.7-10.4 [facility] AustinRutmvwoQPPSVKDVSD6355-85-74 05:32:00 Test Item Value Reference Range Interpretation Comments MCHC (test code = MCHC) 33.1 32.0-36.0 [facility] AustinDqcpjtsHKUCGNNAJL3241-46-39 05:32:00 Test Item Value Reference Range Interpretation Comments Monocytes # (test code 1.0 See_Comment [Aut omated message] The = Monocytes #) system which generated this result tra nsmitted reference range : <=0.8. The reference r tony was not used to int erpret this result as normal/abnormal . [facility] AustinCdiynouECQGIQDQUX5218-55-33 05:32:00 Test Item Value Reference Range Interpretation Comments Basophils # (test code 0.1 See_Comment [Aut omated message] The = Basophils #) system which generated this result tra nsmitted reference range : <=0.2. The reference r tony was not used to int erpret this result as normal/abnormal . [facility] AustinXutqkwbFLAJNWGPOM2954-09-99 05:32:00 Test Item Value Reference Range Interpretation Comments Eosinophils (test code = 0.1 See_Comment [A utomated message] The Eosinophils) system which ge nerated this result tra nsmitted reference range : <=4.0. The reference r tony was not used to int erpret this result as normal/abnormal . [facility] AustinUcszuilJBUVESYZPL9731-34-58 05:32:00 Test Item Value Reference Range Interpretation Comments Basophils (test code = 0.5 See_Comment [Aut omated message] The Basophils) system which ge nerated this result tra nsmitted reference range : <=1.0. The reference r tony was not used to int erpret this result as normal/abnormal . [facility] AustinGpxbsnqMLWJQPKQPD7373-85-46 05:32:00 Test Item Value Reference Range Interpretation Comments Segs-Bands # (test code = Segs-Bands #) 12.6 1.5-8.1 [facility] AustinLpsgbrpQETIFQWIHN4833-96-18 05:32:00 Test Item Value Reference Range Interpretation Comments Lymphocytes (test code = Lymphocytes) 10.2 20.0-40.0 [facility] AustinOsdwdtoYPXVEXYWMD2787-71-38 05:32:00 Test Item Value Reference Range Interpretation Comments Monocytes (test code = Monocytes) 6.6 2.0-12.0 [facility] AustinGjmcakmRNCMXCPSNH4014-71-95 05:32:00 Test Item Value Reference Range Interpretation Comments Lymphocytes # (test code = Lymphocytes 1.6 1.0-5.5 #) [facility] AustinBwgmqoiCMYMOLEQMQ2956-07-32 05:32:00 Test Item Value Reference Range Interpretation Comments Segs (test code = Segs) 82.6 45.0-75.0 [facility]2015-11-19 05:53:00 Test Item Value Reference Range Interpretation Comments Bili Direct (test code 0.1 See_Comment [Aut omated message] The = Bili Direct) system which generated this result tra nsmitted reference range : <=0.3. The reference r tony was not used to int erpret this result as grace l/abnormal. [facility]2015-11-19 05:53:00 Test Item Value Reference Range Interpretation Comments Bili Total (test code = Bili Total) 0.4 0.2-1.3 [facility]2015-11-19 05:53:00 Test Item Value Reference Range Interpretation Comments eGFR (test code = eGFR) 94 [facility]2015-11-19 05:53:00 Test Item Value Reference Range Interpretation Comments Potassium Lvl (test code = Potassium 4.4 3.5-5.1 Lvl) [facility]2015-11-19 05:53:00 Test Item Value Reference Range Interpretation Comments Sodium Lvl (test code = Sodium Lvl) 145 135-145 [facility]2015-11-19 05:53:00 Test Item Value Reference Range Interpretation Comments Chloride Lvl (test code = Chloride Lvl) 110 95-109 [facility]2015-11-19 05:53:00 Test Item Value Reference Range Interpretation Comments Glucose Lvl (test code = Glucose Lvl) 75 70-99 [facility]2015-11-19 05:53:00 Test Item Value Reference Range Interpretation Comments Creatinine Lvl (test code = Creatinine 1.08 0.50-1.40 Lvl) [facility]2015-11-19 05:53:00 Test Item Value Reference Range Interpretation Comments BUN (test code = BUN) 12 7-22 [facility]2015-11-19 05:53:00 Test Item Value Reference Range Interpretation Comments AGAP (test code = AGAP) 8.4 10.0-20.0 [facility]2015-11-19 05:53:00 Test Item Value Reference Range Interpretation Comments CO2 (test code = CO2) 31 24-32 [facility]2015-11-19 05:53:00 Test Item Value Reference Range Interpretation Comments Calcium Lvl (test code = Calcium Lvl) 8.9 8.5-10.5 [facility]2015-11-19 05:53:00 Test Item Value Reference Range Interpretation Comments AST (test code = AST) 15 See_Comment [Auto mated message] The system which ge nerated this result transmit ezequiel reference range : <=37. The reference range was not used to interpr et this result as grace l/abnormal. [facility]2015-11-19 05:53:00 Test Item Value Reference Range Interpretation Comments A/G Ratio (test code = A/G Ratio) 1.2 0.7-1.6 [facility]2015-11-19 05:53:00 Test Item Value Reference Range Interpretation Comments Alk Phos (test code = Alk Phos) 61 39-136 [facility]2015-11-19 05:53:00 Test Item Value Reference Range Interpretation Comments ALT (test code = ALT) 34 See_Comment [Auto mated message] The system which ge nerated this result transmit ezequiel reference range : <=65. The reference range was not used to interpr et this result as grace l/abnormal. [facility]2015-11-19 05:53:00 Test Item Value Reference Range Interpretation Comments Albumin Lvl (test code = Albumin Lvl) 3.9 3.5-5.0 [facility]2015-11-19 05:53:00 Test Item Value Reference Range Interpretation Comments Total Protein (test code = Total 7.1 6.4-8.4 Protein) [facility]2015-11-19 05:53:00 Test Item Value Reference Range Interpretation Comments B/C Ratio (test code = B/C Ratio) 11 6-25 [facility]2015-11-19 05:53:00 Test Item Value Reference Range Interpretation Comments Globulin (test code = Globulin) 3.2 2.0-4.0 [facility] AustinFhrusqzUUTBUQHHNR3385-29-62 05:53:00 Test Item Value Reference Range Interpretation Comments Basophils # (test code 0.1 See_Comment [Aut omated message] The = Basophils #) system which generated this result tra nsmitted reference range : <=0.2. The reference r tony was not used to int erpret this result as normal/abnormal . [facility] AustinIimlbevYTMIGVIQUK9753-60-07 05:53:00 Test Item Value Reference Range Interpretation Comments Eosinophils # (test code 0.8 See_Comment [A utomated message] The = Eosinophils #) system whic h generated this result tra nsmitted reference range : <=0.5. The reference r tony was not used to int erpret this result as normal/abnormal . [facility] AustinYvuvrhxDXECSFGDRQ8724-48-47 05:53:00 Test Item Value Reference Range Interpretation Comments Lymphocytes # (test code = Lymphocytes 3.3 1.0-5.5 #) [facility] AustinKaxsnipDJFEAAHYWA1749-31-64 05:53:00 Test Item Value Reference Range Interpretation Comments Segs-Bands # (test code = Segs-Bands #) 6.4 1.5-8.1 [facility] AustinKmnhuogAWKXLDDJKK9292-84-29 05:53:00 Test Item Value Reference Range Interpretation Comments Basophils (test code = 0.6 See_Comment [Aut omated message] The Basophils) system which ge nerated this result tra nsmitted reference range : <=1.0. The reference r tony was not used to int erpret this result as normal/abnormal . [facility] AustinFlqssdiTKFSATJFDX7686-67-70 05:53:00 Test Item Value Reference Range Interpretation Comments Eosinophils (test code = 7.4 See_Comment [A utomated message] The Eosinophils) system which ge nerated this result tra nsmitted reference range : <=4.0. The reference r tony was not used to int erpret this result as normal/abnormal . [facility] AustinArngzvlWBVGOZGQCH7723-51-46 05:53:00 Test Item Value Reference Range Interpretation Comments Monocytes # (test code 0.6 See_Comment [Aut omated message] The = Monocytes #) system which generated this result tra nsmitted reference range : <=0.8. The reference r tony was not used to int erpret this result as normal/abnormal . [facility] AustinIpwdmlbEVGCUZZGOV9539-74-80 05:53:00 Test Item Value Reference Range Interpretation Comments Segs (test code = Segs) 57.4 45.0-75.0 [facility] AustinEfkgchkGVUCRNKVXA8742-20-22 05:53:00 Test Item Value Reference Range Interpretation Comments Lymphocytes (test code = Lymphocytes) 29.2 20.0-40.0 [facility] AustinAyqliauMVGWDVUFCA0147-96-77 05:53:00 Test Item Value Reference Range Interpretation Comments Monocytes (test code = Monocytes) 5.4 2.0-12.0 [facility] AustinAzgekbzVBZJMFVTDT1843-31-88 05:53:00 Test Item Value Reference Range Interpretation Comments MCV (test code = MCV) 93.6 80.0-94.0 [facility] AustinKdnxoxxJNZNOGFVJE8697-99-55 05:53:00 Test Item Value Reference Range Interpretation Comments Hct (test code = Hct) 43.4 42.0-54.0 [facility] AustinXjgqdamMYWGLZDGYF4025-93-23 05:53:00 Test Item Value Reference Range Interpretation Comments Hgb (test code = Hgb) 14.2 14.0-18.0 [facility] AustinVccpdoaRKBXRXARJV6823-28-22 05:53:00 Test Item Value Reference Range Interpretation Comments RBC (test code = RBC) 4.64 4.70-6.10 [facility] AustinSmsoebxUCLWROTEDF0727-02-58 05:53:00 Test Item Value Reference Range Interpretation Comments MCHC (test code = MCHC) 32.8 32.0-36.0 [facility] AustinIbljjenRETHCIPWPJ8239-79-38 05:53:00 Test Item Value Reference Range Interpretation Comments MCH (test code = MCH) 30.7 pg 27.0-31.0 [facility] AustinFllcafjIGFCLKVQGI4356-75-08 05:53:00 Test Item Value Reference Range Interpretation Comments RDW (test code = RDW) 13.1 11.5-14.5 [facility] AustinWzzknnvMTVTYFMABP5982-20-80 05:53:00 Test Item Value Reference Range Interpretation Comments MPV (test code = MPV) 9.4 7.4-10.4 [facility] AustinAtlqupoTDCYATWFPZ4586-31-43 05:53:00 Test Item Value Reference Range Interpretation Comments Platelet (test code = Platelet) 220 133-450 [facility] AustinUgzioiyOBVIKYYQEN2143-33-48 05:53:00 Test Item Value Reference Range Interpretation Comments WBC (test code = WBC) 11.1 3.7-10.4 [facility] AustinYzyevukDZSYQVITFQ4799-82-60 05:53:00 Test Item Value Reference Range Interpretation Comments PT (test code = PT) 13.5 s 12.0-14.7 [facility] AustinLxgomitDUFMGGLHAQ3927-71-86 05:53:00 Test Item Value Reference Range Interpretation Comments INR (test code = INR) 1.00 0.85-1.17 [facility] AustinGvigdvbYYUBFHIPUM4705-59-75 05:53:00 Test Item Value Reference Range Interpretation Comments PTT (test code = PTT) 33.4 s 22.9-35.8 [facility]IxqwbuzAJHIBUMNNS4451-55-37 05:53:00 Test Item Value Reference Range Interpretation Comments CDC HIV 4th GEN (test Negative (04/20/15 11:53 code = CDC HIV 4th PM) GEN) [facility]DecdpjfTJYQPCSJQQ4535-33-57 05:53:00 Test Item Value Reference Range Interpretation Comments Salicylate Lvl (test no gt See_Comment [Autom ated message] The code = Salicylate Lvl) syste m which generated this result tra nsmitted reference range : <=30.0. The reference r tony was not used to int erpret this result as normal/abnormal . [place] 66648015-11-19 05:53:00 Test Item Value Reference Range Interpretation Comments Acetaminoph Lvl (test code = no gt 10-20 Acetaminoph Lvl) [facility]2015-11-19 05:53:00 Test Item Value Reference Range Interpretation Comments Bili Direct (test code 0.1 See_Comment [Aut omated message] The = Bili Direct) system which generated this result tra nsmitted reference range : <=0.3. The reference r tony was not used to int erpret this result as grace l/abnormal. [facility]Code[facility] WWQYS5892-59-22 05:53:00 Test Item Value Reference Range Interpretation Comments Bili Total (test code = Bili Total) 0.4 0.2-1.3 [facility]2015-11-19 05:53:00 Test Item Value Reference Range Interpretation Comments eGFR (test code = eGFR) 94 [facility]2015-11-19 05:53:00 Test Item Value Reference Range Interpretation Comments Potassium Lvl (test code = Potassium 4.4 3.5-5.1 Lvl) [facility]2015-11-19 05:53:00 Test Item Value Reference Range Interpretation Comments Sodium Lvl (test code = Sodium Lvl) 145 135-145 [facility]2015-11-19 05:53:00 Test Item Value Reference Range Interpretation Comments Chloride Lvl (test code = Chloride Lvl) 110 95-109 [facility] MNHWR5908-23-65 05:53:00 Test Item Value Reference Range Interpretation Comments Glucose Lvl (test code = Glucose Lvl) 75 70-99 [facility]2015-11-19 05:53:00 Test Item Value Reference Range Interpretation Comments Creatinine Lvl (test code = Creatinine 1.08 0.50-1.40 Lvl) [facility]2015-11-19 05:53:00 Test Item Value Reference Range Interpretation Comments BUN (test code = BUN) 12 7-22 [facility]2015-11-19 05:53:00 Test Item Value Reference Range Interpretation Comments AGAP (test code = AGAP) 8.4 10.0-20.0 [facility]2015-11-19 05:53:00 Test Item Value Reference Range Interpretation Comments CO2 (test code = CO2) 31 24-32 [facility]2015-11-19 05:53:00 Test Item Value Reference Range Interpretation Comments Calcium Lvl (test code = Calcium Lvl) 8.9 8.5-10.5 [facility]2015-11-19 05:53:00 Test Item Value Reference Range Interpretation Comments AST (test code = AST) 15 See_Comment [Auto mated message] The system which ge nerated this result transmit ezequiel reference range : <=37. The reference range was not used to interpr et this result as grace l/abnormal. [facility]2015-11-19 05:53:00 Test Item Value Reference Range Interpretation Comments A/G Ratio (test code = A/G Ratio) 1.2 0.7-1.6 [facility]2015-11-19 05:53:00 Test Item Value Reference Range Interpretation Comments Alk Phos (test code = Alk Phos) 61 39-136 [facility]2015-11-19 05:53:00 Test Item Value Reference Range Interpretation Comments ALT (test code = ALT) 34 See_Comment [Auto mated message] The system which ge nerated this result transmit ezequiel reference range : <=65. The reference range was not used to interpr et this result as grace l/abnormal. [facility]2015-11-19 05:53:00 Test Item Value Reference Range Interpretation Comments Albumin Lvl (test code = Albumin Lvl) 3.9 3.5-5.0 [facility]2015-11-19 05:53:00 Test Item Value Reference Range Interpretation Comments Total Protein (test code = Total 7.1 6.4-8.4 Protein) [facility]2015-11-19 05:53:00 Test Item Value Reference Range Interpretation Comments B/C Ratio (test code = B/C Ratio) 11 11-25 [facility]2015-11-19 05:53:00 Test Item Value Reference Range Interpretation Comments Globulin (test code = Globulin) 3.2 2.0-4.0 [facility] AustinTalqgrcJSWGRUWEZE5496-66-90 05:53:00 Test Item Value Reference Range Interpretation Comments Basophils # (test code 0.1 See_Comment [Aut omated message] The = Basophils #) system which generated this result tra nsmitted reference range : <=0.2. The reference r tony was not used to int erpret this result as normal/abnormal . [facility] AustinXofzwvuRQGOOVJESV7863-32-21 05:53:00 Test Item Value Reference Range Interpretation Comments Eosinophils # (test code 0.8 See_Comment [A utomated message] The = Eosinophils #) system whic h generated this result tra nsmitted reference range : <=0.5. The reference r tony was not used to int erpret this result as normal/abnormal . [facility] AustinNzrgkveYGHFPVORHS3384-26-84 05:53:00 Test Item Value Reference Range Interpretation Comments Lymphocytes # (test code = Lymphocytes 3.3 1.0-5.5 #) [facility] AustinFswodjiXWZMHGOGQD1536-92-36 05:53:00 Test Item Value Reference Range Interpretation Comments Segs-Bands # (test code = Segs-Bands #) 6.4 1.5-8.1 [facility] AustinMkkwmsaPJUNNUFCAD2277-49-85 05:53:00 Test Item Value Reference Range Interpretation Comments Basophils (test code = 0.6 See_Comment [Aut omated message] The Basophils) system which ge nerated this result tra nsmitted reference range : <=1.0. The reference r tony was not used to int erpret this result as normal/abnormal . [facility] AustinOutuwwrWDWOLHBQFY6525-87-14 05:53:00 Test Item Value Reference Range Interpretation Comments Eosinophils (test code = 7.4 See_Comment [A utomated message] The Eosinophils) system which ge nerated this result tra nsmitted reference range : <=4.0. The reference r tony was not used to int erpret this result as normal/abnormal . [facility] AustinLqyyihcLIYLMWKGXP0163-09-45 05:53:00 Test Item Value Reference Range Interpretation Comments Monocytes # (test code 0.6 See_Comment [Aut omated message] The = Monocytes #) system which generated this result tra nsmitted reference range : <=0.8. The reference r tony was not used to int erpret this result as normal/abnormal . [facility] AustinPzzscqmAAGBDCLHIM2695-31-89 05:53:00 Test Item Value Reference Range Interpretation Comments Segs (test code = Segs) 57.4 45.0-75.0 [facility] AustinSupbfgkHOBIIOYVWP8324-51-93 05:53:00 Test Item Value Reference Range Interpretation Comments Lymphocytes (test code = Lymphocytes) 29.2 20.0-40.0 [facility] AustinOtzywsxWYDQQYEZBU5406-07-88 05:53:00 Test Item Value Reference Range Interpretation Comments Monocytes (test code = Monocytes) 5.4 2.0-12.0 [facility] AustinGgnbmcbMVQSDUXCFI7167-28-98 05:53:00 Test Item Value Reference Range Interpretation Comments MCV (test code = MCV) 93.6 80.0-94.0 [facility] AustinKhctxxgJQFXWLLLQL5784-04-24 05:53:00 Test Item Value Reference Range Interpretation Comments Hct (test code = Hct) 43.4 42.0-54.0 [facility] AustinTakidmgESNOINOHYR4582-45-99 05:53:00 Test Item Value Reference Range Interpretation Comments Hgb (test code = Hgb) 14.2 14.0-18.0 [facility] AustinNbznovuOTQTLIALLA0186-35-60 05:53:00 Test Item Value Reference Range Interpretation Comments RBC (test code = RBC) 4.64 4.70-6.10 [facility] AustinEtiwnbmLOGVYRMNZF9330-29-47 05:53:00 Test Item Value Reference Range Interpretation Comments MCHC (test code = MCHC) 32.8 32.0-36.0 [facility] AustinBcepbanSEVTEVCSZD7713-38-87 05:53:00 Test Item Value Reference Range Interpretation Comments MCH (test code = MCH) 30.7 pg 27.0-31.0 [facility] AustinRcapaosCRQOUGIRXR8357-51-43 05:53:00 Test Item Value Reference Range Interpretation Comments RDW (test code = RDW) 13.1 11.5-14.5 [facility] HospitalJwrggnlWCCHJYHQRU6786-85-78 05:53:00 Test Item Value Reference Range Interpretation Comments MPV (test code = MPV) 9.4 7.4-10.4 [facility]NkgkqvcJDBAJCZFZR4837-99-50 05:53:00 Test Item Value Reference Range Interpretation Comments Platelet (test code = Platelet) 220 133-450 [facility] HospitalMlebdhpNUIPYUOCNF3118-54-53 05:53:00 Test Item Value Reference Range Interpretation Comments WBC (test code = WBC) 11.1 3.7-10.4 [facility] HospitalRcacptzNSFUHBRWQF4690-89-95 05:53:00 Test Item Value Reference Range Interpretation Comments PT (test code = PT) 13.5 s 12.0-14.7 [facility] HospitalTorcxllAHCVFJUZHE5115-19-62 05:53:00 Test Item Value Reference Range Interpretation Comments INR (test code = INR) 1.00 0.85-1.17 [facility]ZtwvuixIYZCTGOKEX8653-20-51 05:53:00 Test Item Value Reference Range Interpretation Comments PTT (test code = PTT) 33.4 s 22.9-35.8 [facility] HospitalEupurdqMGNCMUCQUQ1252-52-13 05:53:00 Test Item Value Reference Range Interpretation Comments CDC HIV 4th GEN (test Negative (04/20/15 11:53 code = CDC HIV 4th PM) GEN) [facility] HospitalIzhoiflPRKWOLODOL5308-15-56 05:53:00 Test Item Value Reference Range Interpretation Comments Salicylate Lvl (test no gt See_Comment [Autom ated message] The code = Salicylate Lvl) syste m which generated this result tra nsmitted reference range : <=30.0. The reference r tony was not used to int erpret this result as normal/abnormal . [facility] HospitalKqnkdsuQSAASXNJQK9705-52-50 05:53:00 Test Item Value Reference Range Interpretation Comments Acetaminoph Lvl (test code = no gt 10-20 Acetaminoph Lvl) [facility] HospitalCHEM JUBHX0958-98-02 05:53:00 Test Item Value Reference Range Interpretation Comments Bili Direct (test code 0.1 See_Comment [Aut omated message] The = Bili Direct) system which generated this result tra nsmitted reference range : <=0.3. The reference r tony was not used to int erpret this result as grace l/abnormal. [facility]2015-11-19 05:53:00 Test Item Value Reference Range Interpretation Comments Bili Total (test code = Bili Total) 0.4 0.2-1.3 [facility]2015-11-19 05:53:00 Test Item Value Reference Range Interpretation Comments eGFR (test code = eGFR) 94 [facility]2015-11-19 05:53:00 Test Item Value Reference Range Interpretation Comments Potassium Lvl (test code = Potassium 4.4 3.5-5.1 Lvl) [facility]2015-11-19 05:53:00 Test Item Value Reference Range Interpretation Comments Sodium Lvl (test code = Sodium Lvl) 145 135-145 [facility]2015-11-19 05:53:00 Test Item Value Reference Range Interpretation Comments Chloride Lvl (test code = Chloride Lvl) 110 95-109 [facility]2015-11-19 05:53:00 Test Item Value Reference Range Interpretation Comments Glucose Lvl (test code = Glucose Lvl) 75 70-99 [facility]2015-11-19 05:53:00 Test Item Value Reference Range Interpretation Comments Creatinine Lvl (test code = Creatinine 1.08 0.50-1.40 Lvl) [facility]2015-11-19 05:53:00 Test Item Value Reference Range Interpretation Comments BUN (test code = BUN) 12 7-22 [facility]2015-11-19 05:53:00 Test Item Value Reference Range Interpretation Comments AGAP (test code = AGAP) 8.4 10.0-20.0 [facility]2015-11-19 05:53:00 Test Item Value Reference Range Interpretation Comments CO2 (test code = CO2) 31 24-32 [facility]2015-11-19 05:53:00 Test Item Value Reference Range Interpretation Comments Calcium Lvl (test code = Calcium Lvl) 8.9 8.5-10.5 [facility]2015-11-19 05:53:00 Test Item Value Reference Range Interpretation Comments AST (test code = AST) 15 See_Comment [Auto mated message] The system which ge nerated this result transmit ezequiel reference range : <=37. The reference range was not used to interpr et this result as grace l/abnormal. [facility]2015-11-19 05:53:00 Test Item Value Reference Range Interpretation Comments A/G Ratio (test code = A/G Ratio) 1.2 0.7-1.6 [facility]2015-11-19 05:53:00 Test Item Value Reference Range Interpretation Comments Alk Phos (test code = Alk Phos) 61 39-136 [facility]2015-11-19 05:53:00 Test Item Value Reference Range Interpretation Comments ALT (test code = ALT) 34 See_Comment [Auto mated message] The system which ge nerated this result transmit ezequiel reference range : <=65. The reference range was not used to interpr et this result as grace l/abnormal. [facility]2015-11-19 05:53:00 Test Item Value Reference Range Interpretation Comments Albumin Lvl (test code = Albumin Lvl) 3.9 3.5-5.0 [facility]2015-11-19 05:53:00 Test Item Value Reference Range Interpretation Comments Total Protein (test code = Total 7.1 6.4-8.4 Protein) [facility]2015-11-19 05:53:00 Test Item Value Reference Range Interpretation Comments B/C Ratio (test code = B/C Ratio) 11 6-25 [facility]2015-11-19 05:53:00 Test Item Value Reference Range Interpretation Comments Globulin (test code = Globulin) 3.2 2.0-4.0 [facility]YxmonjoAYAVLRFDDY0026-30-77 05:53:00 Test Item Value Reference Range Interpretation Comments Basophils # (test code 0.1 See_Comment [Aut omated message] The = Basophils #) system which generated this result tra nsmitted reference range : <=0.2. The reference r tony was not used to int erpret this result as normal/abnormal . [facility] AustinRhobnjmBYJDMKUMVR0704-94-39 05:53:00 Test Item Value Reference Range Interpretation Comments Eosinophils # (test code 0.8 See_Comment [A utomated message] The = Eosinophils #) system whic h generated this result tra nsmitted reference range : <=0.5. The reference r tony was not used to int erpret this result as normal/abnormal . [facility] AustinHnmkhzkMQIDAHDKGI8489-55-01 05:53:00 Test Item Value Reference Range Interpretation Comments Lymphocytes # (test code = Lymphocytes 3.3 1.0-5.5 #) [facility] AustinSveobtcASDOLUOUBK5087-20-83 05:53:00 Test Item Value Reference Range Interpretation Comments Segs-Bands # (test code = Segs-Bands #) 6.4 1.5-8.1 [facility] AustinMhtzvqhNXWMSZFTAA6696-78-83 05:53:00 Test Item Value Reference Range Interpretation Comments Basophils (test code = 0.6 See_Comment [Aut omated message] The Basophils) system which ge nerated this result tra nsmitted reference range : <=1.0. The reference r tony was not used to int erpret this result as normal/abnormal . [facility] AustinKwdlqbrREPSEBZYOX5367-17-46 05:53:00 Test Item Value Reference Range Interpretation Comments Eosinophils (test code = 7.4 See_Comment [A utomated message] The Eosinophils) system which ge nerated this result tra nsmitted reference range : <=4.0. The reference r tony was not used to int erpret this result as normal/abnormal . [facility] AustinEvenefeIQZBRLIUOT9670-25-19 05:53:00 Test Item Value Reference Range Interpretation Comments Monocytes # (test code 0.6 See_Comment [Aut omated message] The = Monocytes #) system which generated this result tra nsmitted reference range : <=0.8. The reference r tony was not used to int erpret this result as normal/abnormal . [facility] AustinSgxiyegWHYLCGWRUH7583-67-33 05:53:00 Test Item Value Reference Range Interpretation Comments Segs (test code = Segs) 57.4 45.0-75.0 [facility] AustinDbwdbbiHIFHXOUMBL6922-78-52 05:53:00 Test Item Value Reference Range Interpretation Comments Lymphocytes (test code = Lymphocytes) 29.2 20.0-40.0 [facility] AustinWatgbhjDNFXRDJBTH0630-32-61 05:53:00 Test Item Value Reference Range Interpretation Comments Monocytes (test code = Monocytes) 5.4 2.0-12.0 [facility] AustinCletpmcNKQULDPQUW8252-22-22 05:53:00 Test Item Value Reference Range Interpretation Comments MCV (test code = MCV) 93.6 80.0-94.0 [facility] AustinHkkokhtNHWDKTTJOB1136-40-66 05:53:00 Test Item Value Reference Range Interpretation Comments Hct (test code = Hct) 43.4 42.0-54.0 [facility] AustinFetgiufZANXKYQIWC4565-50-47 05:53:00 Test Item Value Reference Range Interpretation Comments Hgb (test code = Hgb) 14.2 14.0-18.0 [facility] AustinHrcqqsmEKUAZCGGQK4648-39-51 05:53:00 Test Item Value Reference Range Interpretation Comments RBC (test code = RBC) 4.64 4.70-6.10 [facility] AustinCrmhzjkXTEZRHAEDP1228-54-78 05:53:00 Test Item Value Reference Range Interpretation Comments MCHC (test code = MCHC) 32.8 32.0-36.0 [facility] AustinYzcthnwHWMBLMQJWE6181-93-14 05:53:00 Test Item Value Reference Range Interpretation Comments MCH (test code = MCH) 30.7 pg 27.0-31.0 [facility] AustinVmcjvpgNQVVZPZBLZ0760-88-47 05:53:00 Test Item Value Reference Range Interpretation Comments RDW (test code = RDW) 13.1 11.5-14.5 [facility] AustinVanhhrpJSJNULLARI8603-74-06 05:53:00 Test Item Value Reference Range Interpretation Comments MPV (test code = MPV) 9.4 7.4-10.4 [facility] AustinKtvqaltFYZMWZMLOT0858-87-79 05:53:00 Test Item Value Reference Range Interpretation Comments Platelet (test code = Platelet) 220 133-450 [facility] AustinWpyxdyjREJVWGZOUF8843-30-20 05:53:00 Test Item Value Reference Range Interpretation Comments WBC (test code = WBC) 11.1 3.7-10.4 [facility] AustinSnvizrlXHRDIIQPQH9683-50-42 05:53:00 Test Item Value Reference Range Interpretation Comments PT (test code = PT) 13.5 s 12.0-14.7 [facility] AustinAauyzqtTTCCNYGPOE7042-39-40 05:53:00 Test Item Value Reference Range Interpretation Comments INR (test code = INR) 1.00 0.85-1.17 [facility] AustinPaljuqgVWFBXSAMLY9820-04-00 05:53:00 Test Item Value Reference Range Interpretation Comments PTT (test code = PTT) 33.4 s 22.9-35.8 [facility] HospitalNhjvlypIPGRNPCPQC8035-85-56 05:53:00 Test Item Value Reference Range Interpretation Comments CDC HIV 4th GEN (test Negative (04/20/15 11:53 code = CDC HIV 4th PM) GEN) [facility]DlngnbeGXRQKVJHZL5470-76-95 05:53:00 Test Item Value Reference Range Interpretation Comments Salicylate Lvl (test no gt See_Comment [Autom ated message] The code = Salicylate Lvl) syste m which generated this result tra nsmitted reference range : <=30.0. The reference r tony was not used to int erpret this result as normal/abnormal . [place] 66648015-11-19 05:53:00 Test Item Value Reference Range Interpretation Comments Acetaminoph Lvl (test code = no gt 10-20 Acetaminoph Lvl) [facility]2015-11-19 05:53:00 Test Item Value Reference Range Interpretation Comments Bili Direct (test code 0.1 See_Comment [Aut omated message] The = Bili Direct) system which generated this result tra nsmitted reference range : <=0.3. The reference r tony was not used to int erpret this result as grace l/abnormal. [facility]2015-11-19 05:53:00 Test Item Value Reference Range Interpretation Comments Bili Total (test code = Bili Total) 0.4 0.2-1.3 [facility]2015-11-19 05:53:00 Test Item Value Reference Range Interpretation Comments eGFR (test code = eGFR) 94 [facility]2015-11-19 05:53:00 Test Item Value Reference Range Interpretation Comments Potassium Lvl (test code = Potassium 4.4 3.5-5.1 Lvl) [facility]2015-11-19 05:53:00 Test Item Value Reference Range Interpretation Comments Sodium Lvl (test code = Sodium Lvl) 145 135-145 [facility]2015-11-19 05:53:00 Test Item Value Reference Range Interpretation Comments Chloride Lvl (test code = Chloride Lvl) 110 95-109 [facility] HospitalCodeEval ITRJC8112-26-82 05:53:00 Test Item Value Reference Range Interpretation Comments Glucose Lvl (test code = Glucose Lvl) 75 70-99 [facility]2015-11-19 05:53:00 Test Item Value Reference Range Interpretation Comments Creatinine Lvl (test code = Creatinine 1.08 0.50-1.40 Lvl) [facility]2015-11-19 05:53:00 Test Item Value Reference Range Interpretation Comments BUN (test code = BUN) 12 7-22 [facility]2015-11-19 05:53:00 Test Item Value Reference Range Interpretation Comments AGAP (test code = AGAP) 8.4 10.0-20.0 [place] 585815-11-19 05:53:00 Test Item Value Reference Range Interpretation Comments CO2 (test code = CO2) 31 24-32 [facility]2015-11-19 05:53:00 Test Item Value Reference Range Interpretation Comments Calcium Lvl (test code = Calcium Lvl) 8.9 8.5-10.5 [facility]2015-11-19 05:53:00 Test Item Value Reference Range Interpretation Comments AST (test code = AST) 15 See_Comment [Auto mated message] The system which ge nerated this result transmit ezequiel reference range : <=37. The reference range was not used to interpr et this result as grace l/abnormal. [facility]2015-11-19 05:53:00 Test Item Value Reference Range Interpretation Comments A/G Ratio (test code = A/G Ratio) 1.2 0.7-1.6 [facility]2015-11-19 05:53:00 Test Item Value Reference Range Interpretation Comments Alk Phos (test code = Alk Phos) 61 39-136 [facility]2015-11-19 05:53:00 Test Item Value Reference Range Interpretation Comments ALT (test code = ALT) 34 See_Comment [Auto mated message] The system which ge nerated this result transmit ezequiel reference range : <=65. The reference range was not used to interpr et this result as grace l/abnormal. [facility]2015-11-19 05:53:00 Test Item Value Reference Range Interpretation Comments Albumin Lvl (test code = Albumin Lvl) 3.9 3.5-5.0 [facility]2015-11-19 05:53:00 Test Item Value Reference Range Interpretation Comments Total Protein (test code = Total 7.1 6.4-8.4 Protein) [facility]2015-11-19 05:53:00 Test Item Value Reference Range Interpretation Comments B/C Ratio (test code = B/C Ratio) 11 11-25 [facility]2015-11-19 05:53:00 Test Item Value Reference Range Interpretation Comments Globulin (test code = Globulin) 3.2 2.0-4.0 [facility] AustinQmizjqhXVSQNPELFC6272-60-37 05:53:00 Test Item Value Reference Range Interpretation Comments Basophils # (test code 0.1 See_Comment [Aut omated message] The = Basophils #) system which generated this result tra nsmitted reference range : <=0.2. The reference r tony was not used to int erpret this result as normal/abnormal . [facility] AustinMykssdtLSYUMAYRZU7225-00-60 05:53:00 Test Item Value Reference Range Interpretation Comments Eosinophils # (test code 0.8 See_Comment [A utomated message] The = Eosinophils #) system whic h generated this result tra nsmitted reference range : <=0.5. The reference r tony was not used to int erpret this result as normal/abnormal . [facility] AustinDcwffjwGELOIMPYNQ5485-67-47 05:53:00 Test Item Value Reference Range Interpretation Comments Lymphocytes # (test code = Lymphocytes 3.3 1.0-5.5 #) [facility] AustinAfofimqEFCTMFQUJH9591-83-83 05:53:00 Test Item Value Reference Range Interpretation Comments Segs-Bands # (test code = Segs-Bands #) 6.4 1.5-8.1 [facility] AustinQsvwqidWWKPAXPXBX1198-36-53 05:53:00 Test Item Value Reference Range Interpretation Comments Basophils (test code = 0.6 See_Comment [Aut omated message] The Basophils) system which ge nerated this result tra nsmitted reference range : <=1.0. The reference r tony was not used to int erpret this result as normal/abnormal . [facility] AustinMqahnmyPAYMXUBVNI3284-55-62 05:53:00 Test Item Value Reference Range Interpretation Comments Eosinophils (test code = 7.4 See_Comment [A utomated message] The Eosinophils) system which ge nerated this result tra nsmitted reference range : <=4.0. The reference r tony was not used to int erpret this result as normal/abnormal . [facility] AustinPioxreeZRPWCZZVDU9880-23-04 05:53:00 Test Item Value Reference Range Interpretation Comments Monocytes # (test code 0.6 See_Comment [Aut omated message] The = Monocytes #) system which generated this result tra nsmitted reference range : <=0.8. The reference r tony was not used to int erpret this result as normal/abnormal . [facility] AustinUdrpkfsOWBMYWEPRB4211-58-41 05:53:00 Test Item Value Reference Range Interpretation Comments Segs (test code = Segs) 57.4 45.0-75.0 [facility] AustinTzgzyllKSIRZZKTDA1073-46-41 05:53:00 Test Item Value Reference Range Interpretation Comments Lymphocytes (test code = Lymphocytes) 29.2 20.0-40.0 [facility] AustinInejbfiEDJIJPJGAO9276-54-91 05:53:00 Test Item Value Reference Range Interpretation Comments Monocytes (test code = Monocytes) 5.4 2.0-12.0 [facility] AustinNfrqgxlJJLGSDNLLO9093-70-55 05:53:00 Test Item Value Reference Range Interpretation Comments MCV (test code = MCV) 93.6 80.0-94.0 [facility] AustinMsgbjmbAHRXBZGQAR1235-66-14 05:53:00 Test Item Value Reference Range Interpretation Comments Hct (test code = Hct) 43.4 42.0-54.0 [facility] AustinPbdygqeZHAJIHZGES7182-15-69 05:53:00 Test Item Value Reference Range Interpretation Comments Hgb (test code = Hgb) 14.2 14.0-18.0 [facility] AustinUlfbgupOXZYJVFSDB5424-00-12 05:53:00 Test Item Value Reference Range Interpretation Comments RBC (test code = RBC) 4.64 4.70-6.10 [facility] AustinOfsmwuuTISOCMUMGA7415-06-75 05:53:00 Test Item Value Reference Range Interpretation Comments MCHC (test code = MCHC) 32.8 32.0-36.0 [facility] AustinThuxqemYWWVXPIZSC1512-55-08 05:53:00 Test Item Value Reference Range Interpretation Comments MCH (test code = MCH) 30.7 pg 27.0-31.0 [facility] AustinWxgzdbtPLQRLJVGMA1375-59-70 05:53:00 Test Item Value Reference Range Interpretation Comments RDW (test code = RDW) 13.1 11.5-14.5 [facility]DbivdgjPOGDCSAGQS0246-61-79 05:53:00 Test Item Value Reference Range Interpretation Comments MPV (test code = MPV) 9.4 7.4-10.4 [facility] AustinVpjswvxLCYZBZPFLZ5171-91-26 05:53:00 Test Item Value Reference Range Interpretation Comments Platelet (test code = Platelet) 220 133-450 [facility] HospitalKbgvitqOWKWKSBATT5256-74-08 05:53:00 Test Item Value Reference Range Interpretation Comments WBC (test code = WBC) 11.1 3.7-10.4 [facility] AustinTsqoukxOYIKPYAUPI0853-42-60 05:53:00 Test Item Value Reference Range Interpretation Comments PT (test code = PT) 13.5 s 12.0-14.7 [facility] AustinFhvjjlaUVDHDNCIVG0023-77-49 05:53:00 Test Item Value Reference Range Interpretation Comments INR (test code = INR) 1.00 0.85-1.17 [facility] AustinKikoyvkZYUDAGRRAJ5557-23-64 05:53:00 Test Item Value Reference Range Interpretation Comments PTT (test code = PTT) 33.4 s 22.9-35.8 [facility] HospitalGuzlwfaVQGUWAESMJ6797-84-45 05:53:00 Test Item Value Reference Range Interpretation Comments [facility] HIV 4th GEN (test Negative (04/20/15 11:53 code = CDC HIV 4th PM) GEN) [place] [id number] 05:53:00 Test Item Value Reference Range Interpretation Comments Salicylate Lvl (test no gt See_Comment [Autom ated message] The code = Salicylate Lvl) syste m which generated this result tra nsmitted reference range : <=30.0. The reference r tony was not used to int erpret this result as normal/abnormal . [facility] HospitalZxdacinBWDPYPQQQG0566-63-55 05:53:00 Test Item Value Reference Range Interpretation Comments Acetaminoph Lvl (test code = no gt 10-20 Acetaminoph Lvl) [facility]2015-11-19 05:53:00 Test Item Value Reference Range Interpretation Comments Bili Direct (test code 0.1 See_Comment [Aut omated message] The = Bili Direct) system which generated this result tra nsmitted reference range : <=0.3. The reference r tony was not used to int erpret this result as grace l/abnormal. [facility]2015-11-19 05:53:00 Test Item Value Reference Range Interpretation Comments Bili Total (test code = Bili Total) 0.4 0.2-1.3 [facility]2015-11-19 05:53:00 Test Item Value Reference Range Interpretation Comments eGFR (test code = eGFR) 94 [facility]2015-11-19 05:53:00 Test Item Value Reference Range Interpretation Comments Potassium Lvl (test code = Potassium 4.4 3.5-5.1 Lvl) [facility]2015-11-19 05:53:00 Test Item Value Reference Range Interpretation Comments Sodium Lvl (test code = Sodium Lvl) 145 135-145 [facility]2015-11-19 05:53:00 Test Item Value Reference Range Interpretation Comments Chloride Lvl (test code = Chloride Lvl) 110 95-109 [facility]2015-11-19 05:53:00 Test Item Value Reference Range Interpretation Comments Glucose Lvl (test code = Glucose Lvl) 75 70-99 [facility]2015-11-19 05:53:00 Test Item Value Reference Range Interpretation Comments Creatinine Lvl (test code = Creatinine 1.08 0.50-1.40 Lvl) [facility]2015-11-19 05:53:00 Test Item Value Reference Range Interpretation Comments BUN (test code = BUN) 12 7-22 [facility]2015-11-19 05:53:00 Test Item Value Reference Range Interpretation Comments AGAP (test code = AGAP) 8.4 10.0-20.0 [facility]2015-11-19 05:53:00 Test Item Value Reference Range Interpretation Comments CO2 (test code = CO2) 31 24-32 [facility]2015-11-19 05:53:00 Test Item Value Reference Range Interpretation Comments Calcium Lvl (test code = Calcium Lvl) 8.9 8.5-10.5 [facility]2015-11-19 05:53:00 Test Item Value Reference Range Interpretation Comments AST (test code = AST) 15 See_Comment [Auto mated message] The system which ge nerated this result transmit ezequiel reference range : <=37. The reference range was not used to interpr et this result as grace l/abnormal. [facility]2015-11-19 05:53:00 Test Item Value Reference Range Interpretation Comments A/G Ratio (test code = A/G Ratio) 1.2 0.7-1.6 [place] 585815-11-19 05:53:00 Test Item Value Reference Range Interpretation Comments Alk Phos (test code = Alk Phos) 61 39-136 [facility]2015-11-19 05:53:00 Test Item Value Reference Range Interpretation Comments ALT (test code = ALT) 34 See_Comment [Auto mated message] The system which ge nerated this result transmit ezequiel reference range : <=65. The reference range was not used to interpr et this result as grace l/abnormal. [facility]2015-11-19 05:53:00 Test Item Value Reference Range Interpretation Comments Albumin Lvl (test code = Albumin Lvl) 3.9 3.5-5.0 [facility]2015-11-19 05:53:00 Test Item Value Reference Range Interpretation Comments Total Protein (test code = Total 7.1 6.4-8.4 Protein) [facility]2015-11-19 05:53:00 Test Item Value Reference Range Interpretation Comments B/C Ratio (test code = B/C Ratio) 11 6-25 [place] 585815-11-19 05:53:00 Test Item Value Reference Range Interpretation Comments Globulin (test code = Globulin) 3.2 2.0-4.0 [facility] AustinImcgcyuALPNGQNKDN4085-41-10 05:53:00 Test Item Value Reference Range Interpretation Comments Basophils # (test code 0.1 See_Comment [Aut omated message] The = Basophils #) system which generated this result tra nsmitted reference range : <=0.2. The reference r tony was not used to int erpret this result as normal/abnormal . [facility] AustinWmamvetIWRMEVJPQX9703-01-38 05:53:00 Test Item Value Reference Range Interpretation Comments Eosinophils # (test code 0.8 See_Comment [A utomated message] The = Eosinophils #) system whic h generated this result tra nsmitted reference range : <=0.5. The reference r tony was not used to int erpret this result as normal/abnormal . [facility] AustinRjfmqlnHOACOXNFZH1052-38-88 05:53:00 Test Item Value Reference Range Interpretation Comments Lymphocytes # (test code = Lymphocytes 3.3 1.0-5.5 #) [facility] AustinYfnwumaRURNFBVEQX8392-06-49 05:53:00 Test Item Value Reference Range Interpretation Comments Segs-Bands # (test code = Segs-Bands #) 6.4 1.5-8.1 [facility] AustinDfkjtwdGXKBUKIYRL0551-53-46 05:53:00 Test Item Value Reference Range Interpretation Comments Basophils (test code = 0.6 See_Comment [Aut omated message] The Basophils) system which ge nerated this result tra nsmitted reference range : <=1.0. The reference r tony was not used to int erpret this result as normal/abnormal . [facility] AustinWzkapkiOPWNLOMDYG4412-57-08 05:53:00 Test Item Value Reference Range Interpretation Comments Eosinophils (test code = 7.4 See_Comment [A utomated message] The Eosinophils) system which ge nerated this result tra nsmitted reference range : <=4.0. The reference r tony was not used to int erpret this result as normal/abnormal . [facility] AustinKkvkhrsLVREAJQDIZ7117-66-27 05:53:00 Test Item Value Reference Range Interpretation Comments Monocytes # (test code 0.6 See_Comment [Aut omated message] The = Monocytes #) system which generated this result tra nsmitted reference range : <=0.8. The reference r tony was not used to int erpret this result as normal/abnormal . [facility] AustinOevngnlJKXWWUNLBY5016-08-23 05:53:00 Test Item Value Reference Range Interpretation Comments Segs (test code = Segs) 57.4 45.0-75.0 [facility] AustinPnclkuyFXJLCVMEXU0589-36-90 05:53:00 Test Item Value Reference Range Interpretation Comments Lymphocytes (test code = Lymphocytes) 29.2 20.0-40.0 [facility] AustinCxuxqcwEVNHLCCZLY8670-18-88 05:53:00 Test Item Value Reference Range Interpretation Comments Monocytes (test code = Monocytes) 5.4 2.0-12.0 [facility] AustinFrnjuplPADNVYJXZT1697-03-09 05:53:00 Test Item Value Reference Range Interpretation Comments MCV (test code = MCV) 93.6 80.0-94.0 [facility] AustinNpnxozvZAKHBANWSF7546-60-15 05:53:00 Test Item Value Reference Range Interpretation Comments Hct (test code = Hct) 43.4 42.0-54.0 [facility] AustinSvdogbsWPJRAUUEXQ8529-17-23 05:53:00 Test Item Value Reference Range Interpretation Comments Hgb (test code = Hgb) 14.2 14.0-18.0 [facility] AustinGymoejtDJPODNZELL2084-23-35 05:53:00 Test Item Value Reference Range Interpretation Comments RBC (test code = RBC) 4.64 4.70-6.10 [facility] AustinRahoquvVKZOIWHAKC9153-72-15 05:53:00 Test Item Value Reference Range Interpretation Comments MCHC (test code = MCHC) 32.8 32.0-36.0 [facility] AustinYmkpmtbOFDSHXEIKZ4292-21-91 05:53:00 Test Item Value Reference Range Interpretation Comments MCH (test code = MCH) 30.7 pg 27.0-31.0 [facility] AustinPpuckhmRYIVJEIEOM6200-86-83 05:53:00 Test Item Value Reference Range Interpretation Comments RDW (test code = RDW) 13.1 11.5-14.5 [facility] AustinKcfnxdmTMREHLMOIY5339-87-59 05:53:00 Test Item Value Reference Range Interpretation Comments MPV (test code = MPV) 9.4 7.4-10.4 [facility] AustinIlswljgBFUFECTDFU1589-50-66 05:53:00 Test Item Value Reference Range Interpretation Comments Platelet (test code = Platelet) 220 133-450 [facility] AustinOmaahfuOEPGRUOXBN9641-70-65 05:53:00 Test Item Value Reference Range Interpretation Comments WBC (test code = WBC) 11.1 3.7-10.4 [facility] AustinMiqjdzvHLDQHGUTUW7495-41-82 05:53:00 Test Item Value Reference Range Interpretation Comments PT (test code = PT) 13.5 s 12.0-14.7 [facility] AustinLzkaaqlIYIPYHAPPU6564-49-68 05:53:00 Test Item Value Reference Range Interpretation Comments INR (test code = INR) 1.00 0.85-1.17 [facility] AustinGzknmjbPQVOGNVTXR6687-12-77 05:53:00 Test Item Value Reference Range Interpretation Comments PTT (test code = PTT) 33.4 s 22.9-35.8 [facility]LA[facility]FKOULV[facility] 05:53:00 Test Item Value Reference Range Interpretation Comments CDC HIV 4th GEN (test Negative (04/20/15 11:53 code = CDC HIV 4th PM) GEN) [facility]AqbxkngNYFNCXKQAG5848-77-65 05:53:00 Test Item Value Reference Range Interpretation Comments Salicylate Lvl (test no gt See_Comment [Autom ated message] The code = Salicylate Lvl) syste m which generated this result tra nsmitted reference range : <=30.0. The reference r tony was not used to int erpret this result as normal/abnormal . [place] [id number] 05:53:00 Test Item Value Reference Range Interpretation Comments Acetaminoph Lvl (test code = no gt 10-20 Acetaminoph Lvl) [facility]2015-11-19 05:53:00 Test Item Value Reference Range Interpretation Comments Bili Direct (test code 0.1 See_Comment [Aut omated message] The = Bili Direct) system which generated this result tra nsmitted reference range : <=0.3. The reference r tony was not used to int erpret this result as grace l/abnormal. [facility]2015-11-19 05:53:00 Test Item Value Reference Range Interpretation Comments Bili Total (test code = Bili Total) 0.4 0.2-1.3 [facility]2015-11-19 05:53:00 Test Item Value Reference Range Interpretation Comments eGFR (test code = eGFR) 94 [facility]2015-11-19 05:53:00 Test Item Value Reference Range Interpretation Comments Potassium Lvl (test code = Potassium 4.4 3.5-5.1 Lvl) [facility]2015-11-19 05:53:00 Test Item Value Reference Range Interpretation Comments Sodium Lvl (test code = Sodium Lvl) 145 135-145 [facility]2015-11-19 05:53:00 Test Item Value Reference Range Interpretation Comments Chloride Lvl (test code = Chloride Lvl) 110 95-109 [facility]2015-11-19 05:53:00 Test Item Value Reference Range Interpretation Comments Glucose Lvl (test code = Glucose Lvl) 75 70-99 [facility]2015-11-19 05:53:00 Test Item Value Reference Range Interpretation Comments Creatinine Lvl (test code = Creatinine 1.08 0.50-1.40 Lvl) [facility]2015-11-19 05:53:00 Test Item Value Reference Range Interpretation Comments BUN (test code = BUN) 12 7-22 [facility]2015-11-19 05:53:00 Test Item Value Reference Range Interpretation Comments AGAP (test code = AGAP) 8.4 10.0-20.0 [facility]2015-11-19 05:53:00 Test Item Value Reference Range Interpretation Comments CO2 (test code = CO2) 31 24-32 [place] 585815-11-19 05:53:00 Test Item Value Reference Range Interpretation Comments Calcium Lvl (test code = Calcium Lvl) 8.9 8.5-10.5 [facility]2015-11-19 05:53:00 Test Item Value Reference Range Interpretation Comments AST (test code = AST) 15 See_Comment [Auto mated message] The system which ge nerated this result transmit ezequiel reference range : <=37. The reference range was not used to interpr et this result as grace l/abnormal. [facility]2015-11-19 05:53:00 Test Item Value Reference Range Interpretation Comments A/G Ratio (test code = A/G Ratio) 1.2 0.7-1.6 [place] 585815-11-19 05:53:00 Test Item Value Reference Range Interpretation Comments Alk Phos (test code = Alk Phos) 61 39-136 [facility]2015-11-19 05:53:00 Test Item Value Reference Range Interpretation Comments ALT (test code = ALT) 34 See_Comment [Auto mated message] The system which ge nerated this result transmit ezequiel reference range : <=65. The reference range was not used to interpr et this result as grace l/abnormal. [place] 585815-11-19 05:53:00 Test Item Value Reference Range Interpretation Comments Albumin Lvl (test code = Albumin Lvl) 3.9 3.5-5.0 [facility]2015-11-19 05:53:00 Test Item Value Reference Range Interpretation Comments Total Protein (test code = Total 7.1 6.4-8.4 Protein) [facility]2015-11-19 05:53:00 Test Item Value Reference Range Interpretation Comments B/C Ratio (test code = B/C Ratio) 11 6-25 [facility]2015-11-19 05:53:00 Test Item Value Reference Range Interpretation Comments Globulin (test code = Globulin) 3.2 2.0-4.0 [facility] AustinBweddnjADHHKGHMZQ0392-53-46 05:53:00 Test Item Value Reference Range Interpretation Comments Basophils # (test code 0.1 See_Comment [Aut omated message] The = Basophils #) system which generated this result tra nsmitted reference range : <=0.2. The reference r tony was not used to int erpret this result as normal/abnormal . [facility] AustinWdehirkSBDSKQFKKD4891-61-94 05:53:00 Test Item Value Reference Range Interpretation Comments Eosinophils # (test code 0.8 See_Comment [A utomated message] The = Eosinophils #) system wh h generated this result tra nsmitted reference range : <=0.5. The reference r tony was not used to int erpret this result as normal/abnormal . [facility] AustinCexixqdKIACKENHYX5559-99-37 05:53:00 Test Item Value Reference Range Interpretation Comments Lymphocytes # (test code = Lymphocytes 3.3 1.0-5.5 #) [facility] AustinJgltpplDUIVPZGQIN9320-03-14 05:53:00 Test Item Value Reference Range Interpretation Comments Segs-Bands # (test code = Segs-Bands #) 6.4 1.5-8.1 [facility] AustinIrdzxsiNGFZCBIFWA6950-33-98 05:53:00 Test Item Value Reference Range Interpretation Comments Basophils (test code = 0.6 See_Comment [Aut omated message] The Basophils) system which ge nerated this result tra nsmitted reference range : <=1.0. The reference r tony was not used to int erpret this result as normal/abnormal . [facility] AustinQleiicmAWSRUCRJSF0973-81-59 05:53:00 Test Item Value Reference Range Interpretation Comments Eosinophils (test code = 7.4 See_Comment [A utomated message] The Eosinophils) system which ge nerated this result tra nsmitted reference range : <=4.0. The reference r tony was not used to int erpret this result as normal/abnormal . [facility] AustinOtekljpHFPPFCUZSA4379-23-96 05:53:00 Test Item Value Reference Range Interpretation Comments Monocytes # (test code 0.6 See_Comment [Aut omated message] The = Monocytes #) system which generated this result tra nsmitted reference range : <=0.8. The reference r tony was not used to int erpret this result as normal/abnormal . [facility] AustinZhijaviILALKBZYYI2417-68-51 05:53:00 Test Item Value Reference Range Interpretation Comments Segs (test code = Segs) 57.4 45.0-75.0 [facility] AustinNgbemkdTALBLWKYCX0017-74-33 05:53:00 Test Item Value Reference Range Interpretation Comments Lymphocytes (test code = Lymphocytes) 29.2 20.0-40.0 [facility] AustinGlaakqaCVVFSVRERY5807-00-27 05:53:00 Test Item Value Reference Range Interpretation Comments Monocytes (test code = Monocytes) 5.4 2.0-12.0 [facility] AustinEyylbqgZPRIFYNCQL5340-97-19 05:53:00 Test Item Value Reference Range Interpretation Comments MCV (test code = MCV) 93.6 80.0-94.0 [facility] AustinLrijyyaNLASFYKNPN1367-36-03 05:53:00 Test Item Value Reference Range Interpretation Comments Hct (test code = Hct) 43.4 42.0-54.0 [facility] AustinDegeudiQVLBCJXCDH2745-48-19 05:53:00 Test Item Value Reference Range Interpretation Comments Hgb (test code = Hgb) 14.2 14.0-18.0 [facility] AustinLuuswkaVHJULUFKEZ3137-33-30 05:53:00 Test Item Value Reference Range Interpretation Comments RBC (test code = RBC) 4.64 4.70-6.10 [facility] AustinRozkxobYRIWCJEOHQ2212-07-03 05:53:00 Test Item Value Reference Range Interpretation Comments MCHC (test code = MCHC) 32.8 32.0-36.0 [facility] AustinRlrlsxoNIMQIJJNXT6973-69-03 05:53:00 Test Item Value Reference Range Interpretation Comments MCH (test code = MCH) 30.7 pg 27.0-31.0 [facility] AustinLnieofhSGHIJIJMBQ3842-16-25 05:53:00 Test Item Value Reference Range Interpretation Comments RDW (test code = RDW) 13.1 11.5-14.5 [facility] AustinRvdytbjGMAKCAGZHQ8868-99-66 05:53:00 Test Item Value Reference Range Interpretation Comments MPV (test code = MPV) 9.4 7.4-10.4 [facility] AustinPwwelyzUMLEMZCNSP6310-45-09 05:53:00 Test Item Value Reference Range Interpretation Comments Platelet (test code = Platelet) 220 133-450 [facility] AustinFinllcaLAZTMYVRFG7380-33-21 05:53:00 Test Item Value Reference Range Interpretation Comments WBC (test code = WBC) 11.1 3.7-10.4 [facility] AustinTyzvoepSRPGLJTDAS4224-34-66 05:53:00 Test Item Value Reference Range Interpretation Comments PT (test code = PT) 13.5 s 12.0-14.7 [facility] AustinJwuwmypEGIUEIRCRJ8332-92-47 05:53:00 Test Item Value Reference Range Interpretation Comments INR (test code = INR) 1.00 0.85-1.17 [facility] AustinCtgpaisXFMKLEUBHP8833-87-45 05:53:00 Test Item Value Reference Range Interpretation Comments PTT (test code = PTT) 33.4 s 22.9-35.8 [facility]jtn[facility]cgWEWOSMUIHF2729-72-35 05:53:00 Test Item Value Reference Range Interpretation Comments [facility] HIV 4th GEN (test Negative (04/20/15 11:53 code = CDC HIV 4th PM) GEN) [place] [id number] 05:53:00 Test Item Value Reference Range Interpretation Comments Salicylate Lvl (test no gt See_Comment [Autom ated message] The code = Salicylate Lvl) syste m which generated this result tra nsmitted reference range : <=30.0. The reference r tony was not used to int erpret this result as normal/abnormal . [facility]txvvouPZLXRQNPPG2977-90-00 05:53:00 Test Item Value Reference Range Interpretation Comments Acetaminoph Lvl (test code = no gt 10-20 Acetaminoph Lvl) [place] [id number] 03:30:00 Test Item Value Reference Range Interpretation Comments Etoh (%) (test code = Etoh (%)) no gt [place] [id number] 03:30:00 Test Item Value Reference Range Interpretation Comments Ethanol Lvl (test code = Ethanol Lvl) no gt [facility] CxvcumzGLLCNVVNZL7695-76-77 03:30:00 Test Item Value Reference Range Interpretation Comments Etoh (%) (test code = Etoh (%)) no [facility] QzzctklGKXNBICPUC8190-30-45 03:30:00 Test Item Value Reference Range Interpretation Comments Ethanol Lvl (test code = Ethanol Lvl) no [facility] FeaprtpBAMTRUGBEG3660-12-42 03:30:00 Test Item Value Reference Range Interpretation Comments Etoh (%) (test code = Etoh (%)) no [facility] LxunbruCMLMRZYGDO9869-31-88 03:30:00 Test Item Value Reference Range Interpretation Comments Ethanol Lvl (test code = Ethanol Lvl) no [facility] TguhvplLLQDMDBOLQ0123-22-49 03:30:00 Test Item Value Reference Range Interpretation Comments Etoh (%) (test code = Etoh (%)) no [facility] GumkzzmQHLQOEAOBB6885-56-52 03:30:00 Test Item Value Reference Range Interpretation Comments Ethanol Lvl (test code = Ethanol Lvl) no [facility] SoabtkeBWHJNQMCYG5820-07-89 03:30:00 Test Item Value Reference Range Interpretation Comments Etoh (%) (test code = Etoh (%)) no [facility] WdnfvbuGHSLAZRFHV7377-40-75 03:30:00 Test Item Value Reference Range Interpretation Comments Ethanol Lvl (test code = Ethanol Lvl) no [facility] YkdpncdRMQNCBSSVM8673-60-00 03:30:00 Test Item Value Reference Range Interpretation Comments Etoh (%) (test code = Etoh (%)) no [facility] 03:30:00 Test Item Value Reference Range Interpretation Comments Ethanol Lvl (test code = Ethanol Lvl) no [facility] OIQOEY6522-21-40 03:23:00 Test Item Value Reference Range Interpretation Comments UDS Note (test code = See Note 3(01/20/14 UDS Note) 10:23 PM) [facility] JYADUH8659-54-84 03:23:00 Test Item Value Reference Range Interpretation Comments U Benzodia Scr (test Positive *ABN*(01/20/14 code = U Benzodia Scr) 10:23 PM) [facility] GFKTDM3926-76-20 03:23:00 Test Item Value Reference Range Interpretation Comments U Cocaine Scr (test Negative *NA*(01/20/14 code = U Cocaine Scr) 10:23 PM) [facility] RCBWRD6451-77-64 03:23:00 Test Item Value Reference Range Interpretation Comments U Cannab Scr (test Negative *NA*(01/20/14 code = U Cannab Scr) 10:23 PM) [facility] OPDHER2669-13-61 03:23:00 Test Item Value Reference Range Interpretation Comments U Opiate Scr (test Positive *ABN*(01/20/14 code = U Opiate Scr) 10:23 PM) [facility] MRKDTB1173-33-47 03:23:00 Test Item Value Reference Range Interpretation Comments U Phencyc Scr (test Negative *NA*(01/20/14 code = U Phencyc Scr) 10:23 PM) [facility] OHSIWO4792-38-07 03:23:00 Test Item Value Reference Range Interpretation Comments U Amph Scr (test code Negative *NA*(01/20/14 = U Amph Scr) 10:23 PM) [facility] HABEET3490-16-96 03:23:00 Test Item Value Reference Range Interpretation Comments U Nita Scr (test code Negative *NA*(01/20/14 = U Nita Scr) 10:23 PM) [facility] SUGZQ7545-04-26 03:23:00 Test Item Value Reference Range Interpretation Comments UA Bili (test code = Small 6*ABN*(01/20/14 UA Bili) 10:23 PM) [facility] [id number] 03:23:00 Test Item Value Reference Range Interpretation Comments UA Protein (test code Negative (01/20/14 10:23 = UA Protein) PM) [facility] [id number] 03:23:00 Test Item Value Reference Range Interpretation Comments UA Blood (test code = Negative (01/20/14 10:23 UA Blood) PM) [facility] [id number] 03:23:00 Test Item Value Reference Range Interpretation Comments UA Urobilinogen (test code = UA 1.0 0.1-1.0 Urobilinogen) [facility] [id number] 03:23:00 Test Item Value Reference Range Interpretation Comments UA Nitrite (test code Negative (01/20/14 10:23 = UA Nitrite) PM) [facility] AND [id number] 03:23:00 Test Item Value Reference Range Interpretation Comments UA Glucose (test code Negative (01/20/14 10:23 = UA Glucose) PM) [facility] AND [id number] 03:23:00 Test Item Value Reference Range Interpretation Comments UA Ketones (test code = UA Ketones) 15 mg/dL [facility] AND [id number] 03:23:00 Test Item Value Reference Range Interpretation Comments UA Bacteria (test code = UA Occasional /HPF Bacteria) [facility] AND [id number] 03:23:00 Test Item Value Reference Range Interpretation Comments UA WBC (test code = UA WBC) 0-2 /HPF [facility] AND [id number] 03:23:00 Test Item Value Reference Range Interpretation Comments UA RBC (test None Seen See_Comment [Automated mes aditya] code = UA RBC) (01/20/14 10:23 The system which PM) generated this result transmitted ref erence range: <=2. The reference range was not used to int erpret this result as normal/abnormal . [facility] AND AQKIU4428-14-20 03:23:00 Test Item Value Reference Range Interpretation Comments UA Sq Epi (test code = UA Sq Occasional /LPF Epi) [facility] AND [id number] 03:23:00 Test Item Value Reference Range Interpretation Comments Micro? (test code = Performed (01/20/14 10:23 Micro?) PM) [facility] AND [id number] 03:23:00 Test Item Value Reference Range Interpretation Comments UA Leuk Est (test Negative (01/20/14 10:23 code = UA Leuk Est) PM) [facility] AND [id number] 03:23:00 Test Item Value Reference Range Interpretation Comments UA pH (test code = UA pH) 6.0 1 5.0-8.0 [facility] AND [id number] 03:23:00 Test Item Value Reference Range Interpretation Comments UA Spec Grav (test >=1.030 *ABN*(01/20/14 code = UA Spec Grav) 10:23 PM) [facility] [id number] 03:23:00 Test Item Value Reference Range Interpretation Comments UA Color (test code = Yellow *NA*(01/20/14 UA Color) 10:23 PM) [facility] [id number] 03:23:00 Test Item Value Reference Range Interpretation Comments UA Turbidity (test code = Clear (01/20/14 10:23 UA Turbidity) PM) [facility] [id number] 03:23:00 Test Item Value Reference Range Interpretation Comments UDS Note (test code = See Note 3(01/20/14 UDS Note) 10:23 PM) [facility] [id number] 03:23:00 Test Item Value Reference Range Interpretation Comments U Benzodia Scr (test Positive *ABN*(01/20/14 code = U Benzodia Scr) 10:23 PM) [facility] [id number] 03:23:00 Test Item Value Reference Range Interpretation Comments U Cocaine Scr (test Negative *NA*(01/20/14 code = U Cocaine Scr) 10:23 PM) [facility] [id number] 03:23:00 Test Item Value Reference Range Interpretation Comments U Cannab Scr (test Negative *NA*(01/20/14 code = U Cannab Scr) 10:23 PM) [facility] DDJKLY2047-87-08 03:23:00 Test Item Value Reference Range Interpretation Comments U Opiate Scr (test Positive *ABN*(01/20/14 code = U Opiate Scr) 10:23 PM) [facility] [id number] 03:23:00 Test Item Value Reference Range Interpretation Comments U Phencyc Scr (test Negative *NA*(01/20/14 code = U Phencyc Scr) 10:23 PM) [facility] [id number] 03:23:00 Test Item Value Reference Range Interpretation Comments U Amph Scr (test code Negative *NA*(01/20/14 = U Amph Scr) 10:23 PM) [facility] [id number] 03:23:00 Test Item Value Reference Range Interpretation Comments U Nita Scr (test code Negative *NA*(01/20/14 = U Nita Scr) 10:23 PM) [facility] [id number] 03:23:00 Test Item Value Reference Range Interpretation Comments UA Bili (test code = Small 6*ABN*(01/20/14 UA Bili) 10:23 PM) [facility] AND [id number] 03:23:00 Test Item Value Reference Range Interpretation Comments UA Protein (test code Negative (01/20/14 10:23 = UA Protein) PM) [facility] AND [id number] 03:23:00 Test Item Value Reference Range Interpretation Comments UA Blood (test code = Negative (01/20/14 10:23 UA Blood) PM) [facility] AND [id number] 03:23:00 Test Item Value Reference Range Interpretation Comments UA Urobilinogen (test code = UA 1.0 0.1-1.0 Urobilinogen) [facility] AND [id number] 03:23:00 Test Item Value Reference Range Interpretation Comments UA Nitrite (test code Negative (01/20/14 10:23 = UA Nitrite) PM) [facility] AND [id number] 03:23:00 Test Item Value Reference Range Interpretation Comments UA Glucose (test code Negative (01/20/14 10:23 = UA Glucose) PM) [facility] AND [id number] 03:23:00 Test Item Value Reference Range Interpretation Comments UA Ketones (test code = UA Ketones) 15 mg/dL [facility] AND [id number] 03:23:00 Test Item Value Reference Range Interpretation Comments UA Bacteria (test code = UA Occasional /HPF Bacteria) [facility] AND [id number] 03:23:00 Test Item Value Reference Range Interpretation Comments UA WBC (test code = UA WBC) 0-2 /HPF [facility] AND [id number] 03:23:00 Test Item Value Reference Range Interpretation Comments UA RBC (test None Seen See_Comment [Automated mes aditya] code = UA RBC) (01/20/14 10:23 The system which PM) generated this result transmitted ref erence range: <=2. The reference range was not used to int erpret this result as normal/abnormal . [facility] AND [id number] 03:23:00 Test Item Value Reference Range Interpretation Comments UA Sq Epi (test code = UA Sq Occasional /LPF Epi) [facility] [id number] 03:23:00 Test Item Value Reference Range Interpretation Comments Micro? (test code = Performed (01/20/14 10:23 Micro?) PM) [facility] [id number] 03:23:00 Test Item Value Reference Range Interpretation Comments UA Leuk Est (test Negative (01/20/14 10:23 code = UA Leuk Est) PM) [facility] [id number] 03:23:00 Test Item Value Reference Range Interpretation Comments UA pH (test code = UA pH) 6.0 1 5.0-8.0 [facility] [id number] 03:23:00 Test Item Value Reference Range Interpretation Comments UA Spec Grav (test >=1.030 *ABN*(01/20/14 code = UA Spec Grav) 10:23 PM) [facility] [id number] 03:23:00 Test Item Value Reference Range Interpretation Comments UA Color (test code = Yellow *NA*(01/20/14 UA Color) 10:23 PM) [facility] [id number] 03:23:00 Test Item Value Reference Range Interpretation Comments UA Turbidity (test code = Clear (01/20/14 10:23 UA Turbidity) PM) [facility] [id number] 03:23:00 Test Item Value Reference Range Interpretation Comments UDS Note (test code = See Note 3(01/20/14 UDS Note) 10:23 PM) [facility] [id number] 03:23:00 Test Item Value Reference Range Interpretation Comments U Benzodia Scr (test Positive *ABN*(01/20/14 code = U Benzodia Scr) 10:23 PM) [facility] [id number] 03:23:00 Test Item Value Reference Range Interpretation Comments U Cocaine Scr (test Negative *NA*(01/20/14 code = U Cocaine Scr) 10:23 PM) [facility] [id number] 03:23:00 Test Item Value Reference Range Interpretation Comments U Cannab Scr (test Negative *NA*(01/20/14 code = U Cannab Scr) 10:23 PM) [facility] [id number] 03:23:00 Test Item Value Reference Range Interpretation Comments U Opiate Scr (test Positive *ABN*(01/20/14 code = U Opiate Scr) 10:23 PM) [facility] [id number] 03:23:00 Test Item Value Reference Range Interpretation Comments U Phencyc Scr (test Negative *NA*(01/20/14 code = U Phencyc Scr) 10:23 PM) [facility] [id number] 03:23:00 Test Item Value Reference Range Interpretation Comments U Amph Scr (test code Negative *NA*(01/20/14 = U Amph Scr) 10:23 PM) [facility] [id number] 03:23:00 Test Item Value Reference Range Interpretation Comments U Nita Scr (test code Negative *NA*(01/20/14 = U Nita Scr) 10:23 PM) [facility] [id number] 03:23:00 Test Item Value Reference Range Interpretation Comments UA Bili (test code = Small 6*ABN*(01/20/14 UA Bili) 10:23 PM) [facility] [id number] 03:23:00 Test Item Value Reference Range Interpretation Comments UA Protein (test code Negative (01/20/14 10:23 = UA Protein) PM) [facility] [id number] 03:23:00 Test Item Value Reference Range Interpretation Comments UA Blood (test code = Negative (01/20/14 10:23 UA Blood) PM) [facility] [id number] 03:23:00 Test Item Value Reference Range Interpretation Comments UA Urobilinogen (test code = UA 1.0 0.1-1.0 Urobilinogen) [facility] [id number] 03:23:00 Test Item Value Reference Range Interpretation Comments UA Nitrite (test code Negative (01/20/14 10:23 = UA Nitrite) PM) [facility] [id number] 03:23:00 Test Item Value Reference Range Interpretation Comments UA Glucose (test code Negative (01/20/14 10:23 = UA Glucose) PM) [facility] [id number] 03:23:00 Test Item Value Reference Range Interpretation Comments UA Ketones (test code = UA Ketones) 15 mg/dL [facility] [id number] 03:23:00 Test Item Value Reference Range Interpretation Comments UA Bacteria (test code = UA Occasional /HPF Bacteria) [facility] AND [id number] 03:23:00 Test Item Value Reference Range Interpretation Comments UA WBC (test code = UA WBC) 0-2 /HPF [facility] AND [id number] 03:23:00 Test Item Value Reference Range Interpretation Comments UA RBC (test None Seen See_Comment [Automated mes aditya] code = UA RBC) (01/20/14 10:23 The system which PM) generated this result transmitted ref erence range: <=2. The reference range was not used to int erpret this result as normal/abnormal . [facility] AND [id number] 03:23:00 Test Item Value Reference Range Interpretation Comments UA Sq Epi (test code = UA Sq Occasional /LPF Epi) [facility] AND [id number] 03:23:00 Test Item Value Reference Range Interpretation Comments Micro? (test code = Performed (01/20/14 10:23 Micro?) PM) [facility] AND [id number] 03:23:00 Test Item Value Reference Range Interpretation Comments UA Leuk Est (test Negative (01/20/14 10:23 code = UA Leuk Est) PM) [facility] AND [id number] 03:23:00 Test Item Value Reference Range Interpretation Comments UA pH (test code = UA pH) 6.0 1 5.0-8.0 [facility] AND [id number] 03:23:00 Test Item Value Reference Range Interpretation Comments UA Spec Grav (test >=1.030 *ABN*(01/20/14 code = UA Spec Grav) 10:23 PM) [facility] AND [id number] 03:23:00 Test Item Value Reference Range Interpretation Comments UA Color (test code = Yellow *NA*(01/20/14 UA Color) 10:23 PM) [facility] AND [id number] 03:23:00 Test Item Value Reference Range Interpretation Comments UA Turbidity (test code = Clear (01/20/14 10:23 UA Turbidity) PM) [facility] [id number] 03:23:00 Test Item Value Reference Range Interpretation Comments UDS Note (test code = See Note 3(01/20/14 UDS Note) 10:23 PM) [facility] [id number] 03:23:00 Test Item Value Reference Range Interpretation Comments U Benzodia Scr (test Positive *ABN*(01/20/14 code = U Benzodia Scr) 10:23 PM) [facility] [id number] 03:23:00 Test Item Value Reference Range Interpretation Comments U Cocaine Scr (test Negative *NA*(01/20/14 code = U Cocaine Scr) 10:23 PM) [facility] [id number] 03:23:00 Test Item Value Reference Range Interpretation Comments U Cannab Scr (test Negative *NA*(01/20/14 code = U Cannab Scr) 10:23 PM) [facility] [id number] 03:23:00 Test Item Value Reference Range Interpretation Comments U Opiate Scr (test Positive *ABN*(01/20/14 code = U Opiate Scr) 10:23 PM) [facility] [id number] 03:23:00 Test Item Value Reference Range Interpretation Comments U Phencyc Scr (test Negative *NA*(01/20/14 code = U Phencyc Scr) 10:23 PM) [facility] [id number] 03:23:00 Test Item Value Reference Range Interpretation Comments U Amph Scr (test code Negative *NA*(01/20/14 = U Amph Scr) 10:23 PM) [facility] [id number] 03:23:00 Test Item Value Reference Range Interpretation Comments U Nita Scr (test code Negative *NA*(01/20/14 = U Nita Scr) 10:23 PM) [facility] [id number] 03:23:00 Test Item Value Reference Range Interpretation Comments UA Bili (test code = Small 6*ABN*(01/20/14 UA Bili) 10:23 PM) [facility] [id number] 03:23:00 Test Item Value Reference Range Interpretation Comments UA Protein (test code Negative (01/20/14 10:23 = UA Protein) PM) [facility] [id number] 03:23:00 Test Item Value Reference Range Interpretation Comments UA Blood (test code = Negative (01/20/14 10:23 UA Blood) PM) [facility] AND [id number] 03:23:00 Test Item Value Reference Range Interpretation Comments UA Urobilinogen (test code = UA 1.0 0.1-1.0 Urobilinogen) [facility] AND [id number] 03:23:00 Test Item Value Reference Range Interpretation Comments UA Nitrite (test code Negative (01/20/14 10:23 = UA Nitrite) PM) [facility] AND [id number] 03:23:00 Test Item Value Reference Range Interpretation Comments UA Glucose (test code Negative (01/20/14 10:23 = UA Glucose) PM) [facility] AND [id number] 03:23:00 Test Item Value Reference Range Interpretation Comments UA Ketones (test code = UA Ketones) 15 mg/dL [facility] AND [id number] 03:23:00 Test Item Value Reference Range Interpretation Comments UA Bacteria (test code = UA Occasional /HPF Bacteria) [facility] AND [id number] 03:23:00 Test Item Value Reference Range Interpretation Comments UA WBC (test code = UA WBC) 0-2 /HPF [facility] AND [id number] 03:23:00 Test Item Value Reference Range Interpretation Comments UA RBC (test None Seen See_Comment [Automated mes aditya] code = UA RBC) (01/20/14 10:23 The system which PM) generated this result transmitted ref erence range: <=2. The reference range was not used to int erpret this result as normal/abnormal . [facility] AND [id number] 03:23:00 Test Item Value Reference Range Interpretation Comments UA Sq Epi (test code = UA Sq Occasional /LPF Epi) [facility] AND [id number] 03:23:00 Test Item Value Reference Range Interpretation Comments Micro? (test code = Performed (01/20/14 10:23 Micro?) PM) [facility] AND [id number] 03:23:00 Test Item Value Reference Range Interpretation Comments UA Leuk Est (test Negative (01/20/14 10:23 code = UA Leuk Est) PM) [facility] [id number] 03:23:00 Test Item Value Reference Range Interpretation Comments UA pH (test code = UA pH) 6.0 1 5.0-8.0 [facility] [id number] 03:23:00 Test Item Value Reference Range Interpretation Comments UA Spec Grav (test >=1.030 *ABN*(01/20/14 code = UA Spec Grav) 10:23 PM) [facility] [id number] 03:23:00 Test Item Value Reference Range Interpretation Comments UA Color (test code = Yellow *NA*(01/20/14 UA Color) 10:23 PM) [facility] [id number] 03:23:00 Test Item Value Reference Range Interpretation Comments UA Turbidity (test code = Clear (01/20/14 10:23 UA Turbidity) PM) [facility] [id number] 03:23:00 Test Item Value Reference Range Interpretation Comments UDS Note (test code = See Note 3(01/20/14 UDS Note) 10:23 PM) [facility] [id number] 03:23:00 Test Item Value Reference Range Interpretation Comments U Benzodia Scr (test Positive *ABN*(01/20/14 code = U Benzodia Scr) 10:23 PM) [facility] [id number] 03:23:00 Test Item Value Reference Range Interpretation Comments U Cocaine Scr (test Negative *NA*(01/20/14 code = U Cocaine Scr) 10:23 PM) [facility] [id number] 03:23:00 Test Item Value Reference Range Interpretation Comments U Cannab Scr (test Negative *NA*(01/20/14 code = U Cannab Scr) 10:23 PM) [facility] [id number] 03:23:00 Test Item Value Reference Range Interpretation Comments U Opiate Scr (test Positive *ABN*(01/20/14 code = U Opiate Scr) 10:23 PM) [facility] [id number] 03:23:00 Test Item Value Reference Range Interpretation Comments U Phencyc Scr (test Negative *NA*(01/20/14 code = U Phencyc Scr) 10:23 PM) [facility] [id number] 03:23:00 Test Item Value Reference Range Interpretation Comments U Amph Scr (test code Negative *NA*(01/20/14 = U Amph Scr) 10:23 PM) [facility] [id number] 03:23:00 Test Item Value Reference Range Interpretation Comments U Nita Scr (test code Negative *NA*(01/20/14 = U Nita Scr) 10:23 PM) [facility] [id number] 03:23:00 Test Item Value Reference Range Interpretation Comments UA Bili (test code = Small 6*ABN*(01/20/14 UA Bili) 10:23 PM) [facility] [id number] 03:23:00 Test Item Value Reference Range Interpretation Comments UA Protein (test code Negative (01/20/14 10:23 = UA Protein) PM) [facility] [id number] 03:23:00 Test Item Value Reference Range Interpretation Comments UA Blood (test code = Negative (01/20/14 10:23 UA Blood) PM) [facility] [id number] 03:23:00 Test Item Value Reference Range Interpretation Comments UA Urobilinogen (test code = UA 1.0 0.1-1.0 Urobilinogen) [facility] [id number] 03:23:00 Test Item Value Reference Range Interpretation Comments UA Nitrite (test code Negative (01/20/14 10:23 = UA Nitrite) PM) [facility] [id number] 03:23:00 Test Item Value Reference Range Interpretation Comments UA Glucose (test code Negative (01/20/14 10:23 = UA Glucose) PM) [facility] [id number] 03:23:00 Test Item Value Reference Range Interpretation Comments UA Ketones (test code = UA Ketones) 15 mg/dL [facility] [id number] 03:23:00 Test Item Value Reference Range Interpretation Comments UA Bacteria (test code = UA Occasional /HPF Bacteria) [facility] [id number] 03:23:00 Test Item Value Reference Range Interpretation Comments UA WBC (test code = UA WBC) 0-2 /HPF [facility] [id number] 03:23:00 Test Item Value Reference Range Interpretation Comments UA RBC (test None Seen See_Comment [Automated mes aditya] code = UA RBC) (01/20/14 10:23 The system which PM) generated this result transmitted ref erence range: <=2. The reference range was not used to int erpret this result as normal/abnormal . [facility] [id number] 03:23:00 Test Item Value Reference Range Interpretation Comments UA Sq Epi (test code = UA Sq Occasional /LPF Epi) [facility] [id number] 03:23:00 Test Item Value Reference Range Interpretation Comments Micro? (test code = Performed (01/20/14 10:23 Micro?) PM) [facility] [id number] 03:23:00 Test Item Value Reference Range Interpretation Comments UA Leuk Est (test Negative (01/20/14 10:23 code = UA Leuk Est) PM) [facility] [id number] 03:23:00 Test Item Value Reference Range Interpretation Comments UA pH (test code = UA pH) 6.0 1 5.0-8.0 [facility] [id number] 03:23:00 Test Item Value Reference Range Interpretation Comments UA Spec Grav (test >=1.030 *ABN*(01/20/14 code = UA Spec Grav) 10:23 PM) [facility] [id number] 03:23:00 Test Item Value Reference Range Interpretation Comments UA Color (test code = Yellow *NA*(01/20/14 UA Color) 10:23 PM) [facility] [id number] 03:23:00 Test Item Value Reference Range Interpretation Comments UA Turbidity (test code = Clear (01/20/14 10:23 UA Turbidity) PM) [facility] [id number] 03:23:00 Test Item Value Reference Range Interpretation Comments UDS Note (test code = See Note 3(01/20/14 UDS Note) 10:23 PM) [facility] [id number] 03:23:00 Test Item Value Reference Range Interpretation Comments U Benzodia Scr (test Positive *ABN*(01/20/14 code = U Benzodia Scr) 10:23 PM) [facility] [id number] 03:23:00 Test Item Value Reference Range Interpretation Comments U Cocaine Scr (test Negative *NA*(01/20/14 code = U Cocaine Scr) 10:23 PM) [facility] [id number] 03:23:00 Test Item Value Reference Range Interpretation Comments U Cannab Scr (test Negative *NA*(01/20/14 code = U Cannab Scr) 10:23 PM) [facility] [id number] 03:23:00 Test Item Value Reference Range Interpretation Comments U Opiate Scr (test Positive *ABN*(01/20/14 code = U Opiate Scr) 10:23 PM) [facility] [id number] 03:23:00 Test Item Value Reference Range Interpretation Comments U Phencyc Scr (test Negative *NA*(01/20/14 code = U Phencyc Scr) 10:23 PM) [facility] [id number] 03:23:00 Test Item Value Reference Range Interpretation Comments U Amph Scr (test code Negative *NA*(01/20/14 = U Amph Scr) 10:23 PM) [facility] [id number] 03:23:00 Test Item Value Reference Range Interpretation Comments U Nita Scr (test code Negative *NA*(01/20/14 = U Nita Scr) 10:23 PM) [facility] [id number] 03:23:00 Test Item Value Reference Range Interpretation Comments UA Bili (test code = Small 6*ABN*(01/20/14 UA Bili) 10:23 PM) [facility] [id number] 03:23:00 Test Item Value Reference Range Interpretation Comments UA Protein (test code Negative (01/20/14 10:23 = UA Protein) PM) [facility] [id number] 03:23:00 Test Item Value Reference Range Interpretation Comments UA Blood (test code = Negative (01/20/14 10:23 UA Blood) PM) [facility] [id number] 03:23:00 Test Item Value Reference Range Interpretation Comments UA Urobilinogen (test code = UA 1.0 0.1-1.0 Urobilinogen) [facility] [id number] 03:23:00 Test Item Value Reference Range Interpretation Comments UA Nitrite (test code Negative (01/20/14 10:23 = UA Nitrite) PM) [facility] AND [id number] 03:23:00 Test Item Value Reference Range Interpretation Comments UA Glucose (test code Negative (01/20/14 10:23 = UA Glucose) PM) [facility] AND [id number] 03:23:00 Test Item Value Reference Range Interpretation Comments UA Ketones (test code = UA Ketones) 15 mg/dL [facility] AND [id number] 03:23:00 Test Item Value Reference Range Interpretation Comments UA Bacteria (test code = UA Occasional /HPF Bacteria) [facility] AND [id number] 03:23:00 Test Item Value Reference Range Interpretation Comments UA WBC (test code = UA WBC) 0-2 /HPF [facility] AND [id number] 03:23:00 Test Item Value Reference Range Interpretation Comments UA RBC (test None Seen See_Comment [Automated mes aditya] code = UA RBC) (01/20/14 10:23 The system which PM) generated this result transmitted ref erence range: <=2. The reference range was not used to int erpret this result as normal/abnormal . [facility] AND [id number] 03:23:00 Test Item Value Reference Range Interpretation Comments UA Sq Epi (test code = UA Sq Occasional /LPF Epi) [facility] AND [id number] 03:23:00 Test Item Value Reference Range Interpretation Comments Micro? (test code = Performed (01/20/14 10:23 Micro?) PM) [facility] AND [id number] 03:23:00 Test Item Value Reference Range Interpretation Comments UA Leuk Est (test Negative (01/20/14 10:23 code = UA Leuk Est) PM) [facility] AND [id number] 03:23:00 Test Item Value Reference Range Interpretation Comments UA pH (test code = UA pH) 6.0 1 5.0-8.0 [facility] AND [id number] 03:23:00 Test Item Value Reference Range Interpretation Comments UA Spec Grav (test >=1.030 *ABN*(01/20/14 code = UA Spec Grav) 10:23 PM) [facility] AND [id number] 03:23:00 Test Item Value Reference Range Interpretation Comments UA Color (test code = Yellow *NA*(01/20/14 UA Color) 10:23 PM) [facility] AND [id number] 03:23:00 Test Item Value Reference Range Interpretation Comments UA Turbidity (test code = Clear (01/20/14 10:23 UA Turbidity) PM) [facility] [id number] 02:25:00 Test Item Value Reference Range Interpretation Comments Lipase Lvl (test code = Lipase Lvl) 110 73-393 [facility]2014-08-21 02:25:00 Test Item Value Reference Range Interpretation Comments Amylase Lvl (test code = Amylase Lvl) 50 25-115 [facility]2014-08-21 02:25:00 Test Item Value Reference Range Interpretation Comments A/G Ratio (test code = A/G Ratio) 1.4 0.7-1.6 [facility]2014-08-21 02:25:00 Test Item Value Reference Range Interpretation Comments AGAP (test code = AGAP) 10.4 10.0-20.0 [facility]2014-08-21 02:25:00 Test Item Value Reference Range Interpretation Comments B/C Ratio (test code = B/C Ratio) 10 6-25 [facility]2014-08-21 02:25:00 Test Item Value Reference Range Interpretation Comments Globulin (test code = Globulin) 3.1 2.0-4.0 [facility]2014-08-21 02:25:00 Test Item Value Reference Range Interpretation Comments eGFR (test code = eGFR) 84 [facility]2014-08-21 02:25:00 Test Item Value Reference Range Interpretation Comments CO2 (test code = CO2) 26 24-32 [facility]2014-08-21 02:25:00 Test Item Value Reference Range Interpretation Comments Albumin Lvl (test code = Albumin Lvl) 4.3 3.5-5.0 [facility]2014-08-21 02:25:00 Test Item Value Reference Range Interpretation Comments ALT (test code = ALT) 28 See_Comment [Auto mated message] The system which ge nerated this result transmit ezequiel reference range : <=65. The reference range was not used to interpr et this result as grace l/abnormal. [facility]2014-08-21 02:25:00 Test Item Value Reference Range Interpretation Comments AST (test code = AST) 14 See_Comment [Auto mated message] The system which ge nerated this result transmit ezequiel reference range : <=37. The reference range was not used to interpr et this result as grace l/abnormal. [facility]2014-08-21 02:25:00 Test Item Value Reference Range Interpretation Comments Total Protein (test code = Total 7.4 6.4-8.4 Protein) [facility]2014-08-21 02:25:00 Test Item Value Reference Range Interpretation Comments Chloride Lvl (test code = Chloride Lvl) 107 95-109 [place] [id number] 02:25:00 Test Item Value Reference Range Interpretation Comments Potassium Lvl (test code = Potassium 3.4 3.5-5.1 Lvl) [facility]2014-08-21 02:25:00 Test Item Value Reference Range Interpretation Comments Calcium Lvl (test code = Calcium Lvl) 9.2 8.5-10.5 [facility]2014-08-21 02:25:00 Test Item Value Reference Range Interpretation Comments Alk Phos (test code = Alk Phos) 64 39-136 [facility]2014-08-21 02:25:00 Test Item Value Reference Range Interpretation Comments Bili Total (test code = Bili Total) 0.8 0.2-1.3 [facility]2014-08-21 02:25:00 Test Item Value Reference Range Interpretation Comments Sodium Lvl (test code = Sodium Lvl) 140 135-145 [facility]2014-08-21 02:25:00 Test Item Value Reference Range Interpretation Comments Glucose Lvl (test code = Glucose Lvl) 111 70-99 [place] [id number] 02:25:00 Test Item Value Reference Range Interpretation Comments Creatinine Lvl (test code = Creatinine 1.2 0.5-1.4 Lvl) [facility]2014-08-21 02:25:00 Test Item Value Reference Range Interpretation Comments BUN (test code = BUN) 12 7-22 [facility]US[facility]334[facility] 02:25:00 Test Item Value Reference Range Interpretation Comments MCV (test code = MCV) 93.4 80.0-94.0 [facility] AustinYwrfiqgFKWRUYALVF5539-96-03 02:25:00 Test Item Value Reference Range Interpretation Comments MCHC (test code = MCHC) 34.3 32.0-36.0 [facility] AustinZepipggAOLSHXJGSP2954-22-71 02:25:00 Test Item Value Reference Range Interpretation Comments MCH (test code = MCH) 32.1 pg 27.0-31.0 [facility] AustinXagbwfyQSPUUEQSCE6823-16-70 02:25:00 Test Item Value Reference Range Interpretation Comments RDW (test code = RDW) 13.4 11.5-14.5 [facility] AustinXbykmdzTZYSSITZPS6371-91-17 02:25:00 Test Item Value Reference Range Interpretation Comments Platelet (test code = Platelet) 184 133-450 [facility] AustinJmykujiFOLDNUPAZK2148-79-84 02:25:00 Test Item Value Reference Range Interpretation Comments MPV (test code = MPV) 9.7 7.4-10.4 [facility] AustinXmsrurjTPCREGIYMD9661-93-24 02:25:00 Test Item Value Reference Range Interpretation Comments RBC (test code = RBC) 4.82 4.70-6.10 [facility] AustinLzvguyfKUFSCTMYXM6273-63-07 02:25:00 Test Item Value Reference Range Interpretation Comments Hgb (test code = Hgb) 15.5 14.0-18.0 [facility] AustinTphbomiCNZAZCUUQZ8409-52-06 02:25:00 Test Item Value Reference Range Interpretation Comments WBC (test code = WBC) 9.8 3.7-10.4 [facility] AustinWpbbukcYZALHOIIHN1213-72-22 02:25:00 Test Item Value Reference Range Interpretation Comments Hct (test code = Hct) 45.1 42.0-54.0 [facility] AustinHzxdwijBBZLCKYYCL4212-79-29 02:25:00 Test Item Value Reference Range Interpretation Comments PTT (test code = PTT) 33.2 s 22.9-35.8 [facility] AustinZlnkiqlAMAIPGMGSC4746-53-93 02:25:00 Test Item Value Reference Range Interpretation Comments PT (test code = PT) 12.9 s 12.0-14.7 [facility] [place]MXQSJMASTJ8183-98-38 02:25:00 Test Item Value Reference Range Interpretation Comments INR (test code = INR) 0.98 0.85-1.17 [facility] AustinAnulcdiLUFGBKXGEB8146-46-94 02:25:00 Test Item Value Reference Range Interpretation Comments Monocytes # (test code 0.9 See_Comment [Aut omated message] The = Monocytes #) system which generated this result tra nsmitted reference range : <=0.8. The reference r tony was not used to int erpret this result as normal/abnormal . [facility] AustinSpcxnifXGBOJGCYHN2810-85-26 02:25:00 Test Item Value Reference Range Interpretation Comments Lymphocytes # (test code = Lymphocytes 4.1 1.0-5.5 #) [facility] AustinHhotodhQAEJACWQUN0168-47-27 02:25:00 Test Item Value Reference Range Interpretation Comments Segs-Bands # (test code = Segs-Bands #) 4.5 1.5-8.1 [facility] AustinNmedknxFFQSRNEWSR0335-43-77 02:25:00 Test Item Value Reference Range Interpretation Comments Basophils # (test code 0.1 See_Comment [Aut omated message] The = Basophils #) system which generated this result tra nsmitted reference range : <=0.2. The reference r tony was not used to int erpret this result as normal/abnormal . [facility] AustinAgdubrqCNXSQGNDAE0982-97-84 02:25:00 Test Item Value Reference Range Interpretation Comments Eosinophils # (test code 0.2 See_Comment [A utomated message] The = Eosinophils #) system whic h generated this result tra nsmitted reference range : <=0.5. The reference r tony was not used to int erpret this result as normal/abnormal . [facility] AustinTtkgrhsNTOYNGYPJQ8799-36-01 02:25:00 Test Item Value Reference Range Interpretation Comments Segs (test code = Segs) 46.2 45.0-75.0 [facility] AustinQkhbxrxROEUJKYZWR2195-38-66 02:25:00 Test Item Value Reference Range Interpretation Comments Eosinophils (test code = 1.6 See_Comment [A utomated message] The Eosinophils) system which ge nerated this result tra nsmitted reference range : <=4.0. The reference r tony was not used to int erpret this result as normal/abnormal . [facility] AustinBdckfkiAQTGGFASRP2000-35-67 02:25:00 Test Item Value Reference Range Interpretation Comments Lymphocytes (test code = Lymphocytes) 42.3 20.0-40.0 [facility] AustinKceotkbUPBUDDTETK3952-01-74 02:25:00 Test Item Value Reference Range Interpretation Comments Basophils (test code = 0.7 See_Comment [Aut omated message] The Basophils) system which ge nerated this result tra nsmitted reference range : <=1.0. The reference r tony was not used to int erpret this result as normal/abnormal . [facility] AustinQypcbwrMRKBSHKGRX8433-38-86 02:25:00 Test Item Value Reference Range Interpretation Comments Monocytes (test code = Monocytes) 9.2 2.0-12.0 [facility]297[facility]-28 02:25:00 Test Item Value Reference Range Interpretation Comments [facility] HIV 4th GEN (test Negative (01/20/14 9:25 code = CDC HIV 4th PM) GEN) [facility]2014-08-21 02:25:00 Test Item Value Reference Range Interpretation Comments Lipase Lvl (test code = Lipase Lvl) 110 73-393 [facility]2014-08-21 02:25:00 Test Item Value Reference Range Interpretation Comments Amylase Lvl (test code = Amylase Lvl) 50 25-115 [facility]2014-08-21 02:25:00 Test Item Value Reference Range Interpretation Comments A/G Ratio (test code = A/G Ratio) 1.4 0.7-1.6 [facility]2014-08-21 02:25:00 Test Item Value Reference Range Interpretation Comments AGAP (test code = AGAP) 10.4 10.0-20.0 [facility]2014-08-21 02:25:00 Test Item Value Reference Range Interpretation Comments B/C Ratio (test code = B/C Ratio) 10 6-25 [facility]2014-08-21 02:25:00 Test Item Value Reference Range Interpretation Comments Globulin (test code = Globulin) 3.1 2.0-4.0 [facility]2014-08-21 02:25:00 Test Item Value Reference Range Interpretation Comments eGFR (test code = eGFR) 84 [facility]2014-08-21 02:25:00 Test Item Value Reference Range Interpretation Comments CO2 (test code = CO2) 26 24-32 [facility]2014-08-21 02:25:00 Test Item Value Reference Range Interpretation Comments Albumin Lvl (test code = Albumin Lvl) 4.3 3.5-5.0 [place] 585814-08-21 02:25:00 Test Item Value Reference Range Interpretation Comments ALT (test code = ALT) 28 See_Comment [Auto mated message] The system which ge nerated this result transmit ezequiel reference range : <=65. The reference range was not used to interpr et this result as grace l/abnormal. [facility]2014-08-21 02:25:00 Test Item Value Reference Range Interpretation Comments AST (test code = AST) 14 See_Comment [Auto mated message] The system which ge nerated this result transmit ezequiel reference range : <=37. The reference range was not used to interpr et this result as grace l/abnormal. [facility] PZMFB8731-49-37 02:25:00 Test Item Value Reference Range Interpretation Comments Total Protein (test code = Total 7.4 6.4-8.4 Protein) [facility]2014-08-21 02:25:00 Test Item Value Reference Range Interpretation Comments Chloride Lvl (test code = Chloride Lvl) 107 95-109 [facility] [id number] 02:25:00 Test Item Value Reference Range Interpretation Comments Potassium Lvl (test code = Potassium 3.4 3.5-5.1 Lvl) [facility]2014-08-21 02:25:00 Test Item Value Reference Range Interpretation Comments Calcium Lvl (test code = Calcium Lvl) 9.2 8.5-10.5 [facility] YCZDF0585-76-84 02:25:00 Test Item Value Reference Range Interpretation Comments Alk Phos (test code = Alk Phos) 64 39-136 [facility] [id number] 02:25:00 Test Item Value Reference Range Interpretation Comments Bili Total (test code = Bili Total) 0.8 0.2-1.3 [facility] QZEAK4799-25-89 02:25:00 Test Item Value Reference Range Interpretation Comments Sodium Lvl (test code = Sodium Lvl) 140 135-145 [facility]2014-08-21 02:25:00 Test Item Value Reference Range Interpretation Comments Glucose Lvl (test code = Glucose Lvl) 111 70-99 [facility]2014-08-21 02:25:00 Test Item Value Reference Range Interpretation Comments Creatinine Lvl (test code = Creatinine 1.2 0.5-1.4 Lvl) [facility]2014-08-21 02:25:00 Test Item Value Reference Range Interpretation Comments BUN (test code = BUN) 12 7-22 [facility] AustinIhywycdTDKLIAZOIP2431-66-57 02:25:00 Test Item Value Reference Range Interpretation Comments MCV (test code = MCV) 93.4 80.0-94.0 [facility] AustinXxevktnXSFEDFQZAV5252-35-18 02:25:00 Test Item Value Reference Range Interpretation Comments MCHC (test code = MCHC) 34.3 32.0-36.0 [facility] AustinUmxtclsEBBOQIUBKW5876-96-10 02:25:00 Test Item Value Reference Range Interpretation Comments MCH (test code = MCH) 32.1 pg 27.0-31.0 [facility] AustinPqmabbkEAQNTLXGDA5935-91-45 02:25:00 Test Item Value Reference Range Interpretation Comments RDW (test code = RDW) 13.4 11.5-14.5 [facility] AustinFtfuaqdLGNHKDWKZC2306-03-01 02:25:00 Test Item Value Reference Range Interpretation Comments Platelet (test code = Platelet) 184 133-450 [facility] AustinJrexuzrQJPCKYHHXQ8766-50-99 02:25:00 Test Item Value Reference Range Interpretation Comments MPV (test code = MPV) 9.7 7.4-10.4 [facility] AustinRmgxqvbEVPUKJRTPS2625-97-02 02:25:00 Test Item Value Reference Range Interpretation Comments RBC (test code = RBC) 4.82 4.70-6.10 [facility] AustinDwzpydrMHNTEWFYJZ4368-05-17 02:25:00 Test Item Value Reference Range Interpretation Comments Hgb (test code = Hgb) 15.5 14.0-18.0 [facility] AustinCbxpaxzOITXYDHFKZ3183-29-00 02:25:00 Test Item Value Reference Range Interpretation Comments WBC (test code = WBC) 9.8 3.7-10.4 [facility] AustinCaxkgkqPHQXZDMMNT5345-13-53 02:25:00 Test Item Value Reference Range Interpretation Comments Hct (test code = Hct) 45.1 42.0-54.0 [facility] AustinAihwklcIVGMLVTPUK5020-37-54 02:25:00 Test Item Value Reference Range Interpretation Comments PTT (test code = PTT) 33.2 s 22.9-35.8 [facility] AustinOpfdhxmJURLUCRDHB9715-91-79 02:25:00 Test Item Value Reference Range Interpretation Comments PT (test code = PT) 12.9 s 12.0-14.7 [facility] AustinAkixesrSXQDQCBIHE0625-81-52 02:25:00 Test Item Value Reference Range Interpretation Comments INR (test code = INR) 0.98 0.85-1.17 [facility] AustinJygatreTSHYVTXPOE3974-66-26 02:25:00 Test Item Value Reference Range Interpretation Comments Monocytes # (test code 0.9 See_Comment [Aut omated message] The = Monocytes #) system which generated this result tra nsmitted reference range : <=0.8. The reference r tony was not used to int erpret this result as normal/abnormal . [facility] AustinVukobdwABLABDPNNU0528-43-08 02:25:00 Test Item Value Reference Range Interpretation Comments Lymphocytes # (test code = Lymphocytes 4.1 1.0-5.5 #) [facility] AustinOjlhusdKQMHVVYBYE8494-79-80 02:25:00 Test Item Value Reference Range Interpretation Comments Segs-Bands # (test code = Segs-Bands #) 4.5 1.5-8.1 [facility] AustinQfdkiqfEAAEWHWNSA6967-57-87 02:25:00 Test Item Value Reference Range Interpretation Comments Basophils # (test code 0.1 See_Comment [Aut omated message] The = Basophils #) system which generated this result tra nsmitted reference range : <=0.2. The reference r tony was not used to int erpret this result as normal/abnormal . [facility] AustinIiiqptnLNEYTLTBSG2482-43-90 02:25:00 Test Item Value Reference Range Interpretation Comments Eosinophils # (test code 0.2 See_Comment [A utomated message] The = Eosinophils #) system whic h generated this result tra nsmitted reference range : <=0.5. The reference r tony was not used to int erpret this result as normal/abnormal . [facility] AustinVvqmqqwPSIWFNZBUZ4599-28-52 02:25:00 Test Item Value Reference Range Interpretation Comments Segs (test code = Segs) 46.2 45.0-75.0 [facility] AustinSnklvhtUAGADWTIWK2176-45-97 02:25:00 Test Item Value Reference Range Interpretation Comments Eosinophils (test code = 1.6 See_Comment [A utomated message] The Eosinophils) system which ge nerated this result tra nsmitted reference range : <=4.0. The reference r tony was not used to int erpret this result as normal/abnormal . [facility] AustinJqkghhqMVNYLSLFUG9502-93-40 02:25:00 Test Item Value Reference Range Interpretation Comments Lymphocytes (test code = Lymphocytes) 42.3 20.0-40.0 [facility] AustinQfyjzyqYMGSHOANMC2718-70-63 02:25:00 Test Item Value Reference Range Interpretation Comments Basophils (test code = 0.7 See_Comment [Aut omated message] The Basophils) system which ge nerated this result tra nsmitted reference range : <=1.0. The reference r tony was not used to int erpret this result as normal/abnormal . [facility] AustinAukeqfuPHCOMUUPFW8364-41-06 02:25:00 Test Item Value Reference Range Interpretation Comments Monocytes (test code = Monocytes) 9.2 2.0-12.0 [facility] HospitalEsondasBSYWXPAPKF8731-91-53 02:25:00 Test Item Value Reference Range Interpretation Comments [facility] HIV 4th GEN (test Negative (01/20/14 9:25 code = CDC HIV 4th PM) GEN) [facility]2014-08-21 02:25:00 Test Item Value Reference Range Interpretation Comments Lipase Lvl (test code = Lipase Lvl) 110 73-393 [facility]2014-08-21 02:25:00 Test Item Value Reference Range Interpretation Comments Amylase Lvl (test code = Amylase Lvl) 50 25-115 [facility]2014-08-21 02:25:00 Test Item Value Reference Range Interpretation Comments A/G Ratio (test code = A/G Ratio) 1.4 0.7-1.6 [facility]2014-08-21 02:25:00 Test Item Value Reference Range Interpretation Comments AGAP (test code = AGAP) 10.4 10.0-20.0 [facility]2014-08-21 02:25:00 Test Item Value Reference Range Interpretation Comments B/C Ratio (test code = B/C Ratio) 10 6-25 [facility]2014-08-21 02:25:00 Test Item Value Reference Range Interpretation Comments Globulin (test code = Globulin) 3.1 2.0-4.0 [place] 585814-08-21 02:25:00 Test Item Value Reference Range Interpretation Comments eGFR (test code = eGFR) 84 [facility]2014-08-21 02:25:00 Test Item Value Reference Range Interpretation Comments CO2 (test code = CO2) 26 24-32 [place] 585814-08-21 02:25:00 Test Item Value Reference Range Interpretation Comments Albumin Lvl (test code = Albumin Lvl) 4.3 3.5-5.0 [facility]2014-08-21 02:25:00 Test Item Value Reference Range Interpretation Comments ALT (test code = ALT) 28 See_Comment [Auto mated message] The system which ge nerated this result transmit ezequiel reference range : <=65. The reference range was not used to interpr et this result as grace l/abnormal. [facility]2014-08-21 02:25:00 Test Item Value Reference Range Interpretation Comments AST (test code = AST) 14 See_Comment [Auto mated message] The system which ge nerated this result transmit ezequiel reference range : <=37. The reference range was not used to interpr et this result as grace l/abnormal. [facility]2014-08-21 02:25:00 Test Item Value Reference Range Interpretation Comments Total Protein (test code = Total 7.4 6.4-8.4 Protein) [facility]2014-08-21 02:25:00 Test Item Value Reference Range Interpretation Comments Chloride Lvl (test code = Chloride Lvl) 107 95-109 [facility]2014-08-21 02:25:00 Test Item Value Reference Range Interpretation Comments Potassium Lvl (test code = Potassium 3.4 3.5-5.1 Lvl) [facility]2014-08-21 02:25:00 Test Item Value Reference Range Interpretation Comments Calcium Lvl (test code = Calcium Lvl) 9.2 8.5-10.5 [facility]2014-08-21 02:25:00 Test Item Value Reference Range Interpretation Comments Alk Phos (test code = Alk Phos) 64 39-136 [facility]2014-08-21 02:25:00 Test Item Value Reference Range Interpretation Comments Bili Total (test code = Bili Total) 0.8 0.2-1.3 [facility]2014-08-21 02:25:00 Test Item Value Reference Range Interpretation Comments Sodium Lvl (test code = Sodium Lvl) 140 135-145 [facility]2014-08-21 02:25:00 Test Item Value Reference Range Interpretation Comments Glucose Lvl (test code = Glucose Lvl) 111 70-99 [facility]2014-08-21 02:25:00 Test Item Value Reference Range Interpretation Comments Creatinine Lvl (test code = Creatinine 1.2 0.5-1.4 Lvl) [facility]2014-08-21 02:25:00 Test Item Value Reference Range Interpretation Comments BUN (test code = BUN) 12 7-22 [facility] AustinWzamgrhYHURRDMGJA2231-78-97 02:25:00 Test Item Value Reference Range Interpretation Comments MCV (test code = MCV) 93.4 80.0-94.0 [facility] AustinWjshglyJEFQCEULCS2397-42-08 02:25:00 Test Item Value Reference Range Interpretation Comments MCHC (test code = MCHC) 34.3 32.0-36.0 [facility] AustinLvbbeytMUDWWKRAIZ7761-86-02 02:25:00 Test Item Value Reference Range Interpretation Comments MCH (test code = MCH) 32.1 pg 27.0-31.0 [facility] AustinHxcwoirKAAVNBVKWZ3832-39-59 02:25:00 Test Item Value Reference Range Interpretation Comments RDW (test code = RDW) 13.4 11.5-14.5 [facility] AustinQxhcyjcYKTMRIQCJH1168-65-32 02:25:00 Test Item Value Reference Range Interpretation Comments Platelet (test code = Platelet) 184 133-450 [facility] AustinOsfnsbpNJVUOIQWPE5160-73-52 02:25:00 Test Item Value Reference Range Interpretation Comments MPV (test code = MPV) 9.7 7.4-10.4 [facility] AustinZbzyzuhQVHJEUOFOD2846-62-34 02:25:00 Test Item Value Reference Range Interpretation Comments RBC (test code = RBC) 4.82 4.70-6.10 [facility] AustinLgjrfssHWYPJQNLHL9302-81-03 02:25:00 Test Item Value Reference Range Interpretation Comments Hgb (test code = Hgb) 15.5 14.0-18.0 [facility] AustinDubeabpZPTAEIAHHH5227-18-35 02:25:00 Test Item Value Reference Range Interpretation Comments WBC (test code = WBC) 9.8 3.7-10.4 [facility] AustinBymbilhQKUHRMYSUD7110-73-84 02:25:00 Test Item Value Reference Range Interpretation Comments Hct (test code = Hct) 45.1 42.0-54.0 [facility] AustinEoovbudJQVMXUTDLZ7457-07-94 02:25:00 Test Item Value Reference Range Interpretation Comments PTT (test code = PTT) 33.2 s 22.9-35.8 [facility] AustinGtpncdpMEATQSSICE1632-14-51 02:25:00 Test Item Value Reference Range Interpretation Comments PT (test code = PT) 12.9 s 12.0-14.7 [facility] AustinAtghuzxDUSADANSFK9701-21-60 02:25:00 Test Item Value Reference Range Interpretation Comments INR (test code = INR) 0.98 0.85-1.17 [facility] AustinHhgdstjIOFMQYOBJW4708-45-37 02:25:00 Test Item Value Reference Range Interpretation Comments Monocytes # (test code 0.9 See_Comment [Aut omated message] The = Monocytes #) system which generated this result tra nsmitted reference range : <=0.8. The reference r tony was not used to int erpret this result as normal/abnormal . [facility] AustinPzkcrdbPMNXZZLSUP6365-98-75 02:25:00 Test Item Value Reference Range Interpretation Comments Lymphocytes # (test code = Lymphocytes 4.1 1.0-5.5 #) [facility] AustinIpbfneuPAPVGISOQG4229-38-00 02:25:00 Test Item Value Reference Range Interpretation Comments Segs-Bands # (test code = Segs-Bands #) 4.5 1.5-8.1 [facility] AustinXbwmladGTHPZJESBS1842-49-49 02:25:00 Test Item Value Reference Range Interpretation Comments Basophils # (test code 0.1 See_Comment [Aut omated message] The = Basophils #) system which generated this result tra nsmitted reference range : <=0.2. The reference r tony was not used to int erpret this result as normal/abnormal . [facility] AustinJaqnqmhQDQTODDZSJ2833-99-03 02:25:00 Test Item Value Reference Range Interpretation Comments Eosinophils # (test code 0.2 See_Comment [A utomated message] The = Eosinophils #) system whic h generated this result tra nsmitted reference range : <=0.5. The reference r tony was not used to int erpret this result as normal/abnormal . [facility] AustinUrunjbmNBZOWYJZUR9631-83-33 02:25:00 Test Item Value Reference Range Interpretation Comments Segs (test code = Segs) 46.2 45.0-75.0 [facility] AustinNfyezjrOOVPLCDRVZ8694-15-65 02:25:00 Test Item Value Reference Range Interpretation Comments Eosinophils (test code = 1.6 See_Comment [A utomated message] The Eosinophils) system which ge nerated this result tra nsmitted reference range : <=4.0. The reference r tony was not used to int erpret this result as normal/abnormal . [facility] AustinAkyheckFEMTXPNHOT4154-40-41 02:25:00 Test Item Value Reference Range Interpretation Comments Lymphocytes (test code = Lymphocytes) 42.3 20.0-40.0 [facility] AustinKyncpwuWJODXIAFRW3800-10-36 02:25:00 Test Item Value Reference Range Interpretation Comments Basophils (test code = 0.7 See_Comment [Aut omated message] The Basophils) system which ge nerated this result tra nsmitted reference range : <=1.0. The reference r tony was not used to int erpret this result as normal/abnormal . [facility] AustinZsjvsezUZHOQDBONF5780-56-72 02:25:00 Test Item Value Reference Range Interpretation Comments Monocytes (test code = Monocytes) 9.2 2.0-12.0 [facility]xndklbWLQEKQDWWG0280-58-93 02:25:00 Test Item Value Reference Range Interpretation Comments CDC HIV 4th GEN (test Negative (01/20/14 9:25 code = CDC HIV 4th PM) GEN) [facility]2014-08-21 02:25:00 Test Item Value Reference Range Interpretation Comments Lipase Lvl (test code = Lipase Lvl) 110 73-393 [facility] DCOGI9756-27-34 02:25:00 Test Item Value Reference Range Interpretation Comments Amylase Lvl (test code = Amylase Lvl) 50 25-115 [facility]2014-08-21 02:25:00 Test Item Value Reference Range Interpretation Comments A/G Ratio (test code = A/G Ratio) 1.4 0.7-1.6 [place] 585814-08-21 02:25:00 Test Item Value Reference Range Interpretation Comments AGAP (test code = AGAP) 10.4 10.0-20.0 [place] [address]-08-21 02:25:00 Test Item Value Reference Range Interpretation Comments B/C Ratio (test code = B/C Ratio) 10 6-25 [place] [address]-08-21 02:25:00 Test Item Value Reference Range Interpretation Comments Globulin (test code = Globulin) 3.1 2.0-4.0 [place] [address]-08-21 02:25:00 Test Item Value Reference Range Interpretation Comments eGFR (test code = eGFR) 84 [facility]2014-08-21 02:25:00 Test Item Value Reference Range Interpretation Comments CO2 (test code = CO2) 26 24-32 [place] 585814-08-21 02:25:00 Test Item Value Reference Range Interpretation Comments Albumin Lvl (test code = Albumin Lvl) 4.3 3.5-5.0 [facility]2014-08-21 02:25:00 Test Item Value Reference Range Interpretation Comments ALT (test code = ALT) 28 See_Comment [Auto mated message] The system which ge nerated this result transmit ezequiel reference range : <=65. The reference range was not used to interpr et this result as grace l/abnormal. [facility]2014-08-21 02:25:00 Test Item Value Reference Range Interpretation Comments AST (test code = AST) 14 See_Comment [Auto mated message] The system which ge nerated this result transmit ezequiel reference range : <=37. The reference range was not used to interpr et this result as grace l/abnormal. [place] 585814-08-21 02:25:00 Test Item Value Reference Range Interpretation Comments Total Protein (test code = Total 7.4 6.4-8.4 Protein) [place] 585814-08-21 02:25:00 Test Item Value Reference Range Interpretation Comments Chloride Lvl (test code = Chloride Lvl) 107 95-109 [facility]2014-08-21 02:25:00 Test Item Value Reference Range Interpretation Comments Potassium Lvl (test code = Potassium 3.4 3.5-5.1 Lvl) [facility]2014-08-21 02:25:00 Test Item Value Reference Range Interpretation Comments Calcium Lvl (test code = Calcium Lvl) 9.2 8.5-10.5 [facility]2014-08-21 02:25:00 Test Item Value Reference Range Interpretation Comments Alk Phos (test code = Alk Phos) 64 39-136 [facility]2014-08-21 02:25:00 Test Item Value Reference Range Interpretation Comments Bili Total (test code = Bili Total) 0.8 0.2-1.3 [facility]2014-08-21 02:25:00 Test Item Value Reference Range Interpretation Comments Sodium Lvl (test code = Sodium Lvl) 140 135-145 [facility]2014-08-21 02:25:00 Test Item Value Reference Range Interpretation Comments Glucose Lvl (test code = Glucose Lvl) 111 70-99 [facility]2014-08-21 02:25:00 Test Item Value Reference Range Interpretation Comments Creatinine Lvl (test code = Creatinine 1.2 0.5-1.4 Lvl) [facility]2014-08-21 02:25:00 Test Item Value Reference Range Interpretation Comments BUN (test code = BUN) 12 7-22 [facility] AustinLzptptuGADJLVMJRY9446-67-45 02:25:00 Test Item Value Reference Range Interpretation Comments MCV (test code = MCV) 93.4 80.0-94.0 [facility] AustinAybnbleKAOOUBFWJI2108-97-27 02:25:00 Test Item Value Reference Range Interpretation Comments MCHC (test code = MCHC) 34.3 32.0-36.0 [facility] AustinCsttygiXRSQAGHBBR5608-60-88 02:25:00 Test Item Value Reference Range Interpretation Comments MCH (test code = MCH) 32.1 pg 27.0-31.0 [facility] AustinTvjyqjlKUWZUEEAPK6905-96-98 02:25:00 Test Item Value Reference Range Interpretation Comments RDW (test code = RDW) 13.4 11.5-14.5 [facility] AustinDwliqxbZHFXXJRLCY5036-45-44 02:25:00 Test Item Value Reference Range Interpretation Comments Platelet (test code = Platelet) 184 133-450 [facility] AustinYeakwaiNXMTMCXTYA1999-79-06 02:25:00 Test Item Value Reference Range Interpretation Comments MPV (test code = MPV) 9.7 7.4-10.4 [facility] AustinNscaotqSDCJWCIWEX1837-47-36 02:25:00 Test Item Value Reference Range Interpretation Comments RBC (test code = RBC) 4.82 4.70-6.10 [facility] AustinZrwmbxeCGKLNQWCMP1378-58-30 02:25:00 Test Item Value Reference Range Interpretation Comments Hgb (test code = Hgb) 15.5 14.0-18.0 [facility] AustinRzbxnnjZAEYYIZDLD7836-65-07 02:25:00 Test Item Value Reference Range Interpretation Comments WBC (test code = WBC) 9.8 3.7-10.4 [facility] AustinHzmaesgXZQXTCQXCQ7568-40-09 02:25:00 Test Item Value Reference Range Interpretation Comments Hct (test code = Hct) 45.1 42.0-54.0 [facility] AustinAorlvvzLXJPXSLBGV6700-05-21 02:25:00 Test Item Value Reference Range Interpretation Comments PTT (test code = PTT) 33.2 s 22.9-35.8 [facility] AustinLfmrkcmADSTRCUIFW6167-08-74 02:25:00 Test Item Value Reference Range Interpretation Comments PT (test code = PT) 12.9 s 12.0-14.7 [facility] AustinLqxfvzcKSBPRGPOOA8359-68-48 02:25:00 Test Item Value Reference Range Interpretation Comments INR (test code = INR) 0.98 0.85-1.17 [facility] AustinSipdzkbSLAHHVPWHV3503-45-43 02:25:00 Test Item Value Reference Range Interpretation Comments Monocytes # (test code 0.9 See_Comment [Aut omated message] The = Monocytes #) system which generated this result tra nsmitted reference range : <=0.8. The reference r tony was not used to int erpret this result as normal/abnormal . [facility] AustinPwrdonlCAUSIBHHQU1973-11-91 02:25:00 Test Item Value Reference Range Interpretation Comments Lymphocytes # (test code = Lymphocytes 4.1 1.0-5.5 #) [facility] AustinDdmegivGCNVYLPHQQ5721-53-30 02:25:00 Test Item Value Reference Range Interpretation Comments Segs-Bands # (test code = Segs-Bands #) 4.5 1.5-8.1 [facility] AustinYrmdmwdDYVMBHRQMD8009-02-26 02:25:00 Test Item Value Reference Range Interpretation Comments Basophils # (test code 0.1 See_Comment [Aut omated message] The = Basophils #) system which generated this result tra nsmitted reference range : <=0.2. The reference r tony was not used to int erpret this result as normal/abnormal . [facility] AustinOtkkyltGOKOPNUTKE6333-33-91 02:25:00 Test Item Value Reference Range Interpretation Comments Eosinophils # (test code 0.2 See_Comment [A utomated message] The = Eosinophils #) system whic h generated this result tra nsmitted reference range : <=0.5. The reference r tony was not used to int erpret this result as normal/abnormal . [facility] AustinWhdipftFITHKOSEIT0405-79-58 02:25:00 Test Item Value Reference Range Interpretation Comments Segs (test code = Segs) 46.2 45.0-75.0 [facility] AustinWyxrwghCPZZYRIDKA8600-71-56 02:25:00 Test Item Value Reference Range Interpretation Comments Eosinophils (test code = 1.6 See_Comment [A utomated message] The Eosinophils) system which ge nerated this result tra nsmitted reference range : <=4.0. The reference r tony was not used to int erpret this result as normal/abnormal . [facility] AustinOorkdazRCXESDBMZU9192-38-07 02:25:00 Test Item Value Reference Range Interpretation Comments Lymphocytes (test code = Lymphocytes) 42.3 20.0-40.0 [facility] AustinGdabiltNLEQJIUAXX0837-87-42 02:25:00 Test Item Value Reference Range Interpretation Comments Basophils (test code = 0.7 See_Comment [Aut omated message] The Basophils) system which ge nerated this result tra nsmitted reference range : <=1.0. The reference r tony was not used to int erpret this result as normal/abnormal . [facility] AustinMrccqgqRAUJRQBSKY3736-37-36 02:25:00 Test Item Value Reference Range Interpretation Comments Monocytes (test code = Monocytes) 9.2 2.0-12.0 [facility]lsJQSYMYPMMZ9500-96-22 02:25:00 Test Item Value Reference Range Interpretation Comments CDC HIV 4th GEN (test Negative (01/20/14 9:25 code = [facility] HIV 4th PM) GEN) [facility]2014-08-21 02:25:00 Test Item Value Reference Range Interpretation Comments Lipase Lvl (test code = Lipase Lvl) 110 73-393 [facility]2014-08-21 02:25:00 Test Item Value Reference Range Interpretation Comments Amylase Lvl (test code = Amylase Lvl) 50 25-115 [facility]2014-08-21 02:25:00 Test Item Value Reference Range Interpretation Comments A/G Ratio (test code = A/G Ratio) 1.4 0.7-1.6 [place] 585814-08-21 02:25:00 Test Item Value Reference Range Interpretation Comments AGAP (test code = AGAP) 10.4 10.0-20.0 [place] 585814-08-21 02:25:00 Test Item Value Reference Range Interpretation Comments B/C Ratio (test code = B/C Ratio) 10 6-25 [place] 585814-08-21 02:25:00 Test Item Value Reference Range Interpretation Comments Globulin (test code = Globulin) 3.1 2.0-4.0 [facility]2014-08-21 02:25:00 Test Item Value Reference Range Interpretation Comments eGFR (test code = eGFR) 84 [facility]2014-08-21 02:25:00 Test Item Value Reference Range Interpretation Comments CO2 (test code = CO2) 26 24-32 [facility]2014-08-21 02:25:00 Test Item Value Reference Range Interpretation Comments Albumin Lvl (test code = Albumin Lvl) 4.3 3.5-5.0 [place] 585814-08-21 02:25:00 Test Item Value Reference Range Interpretation Comments ALT (test code = ALT) 28 See_Comment [Auto mated message] The system which ge nerated this result transmit ezequiel reference range : <=65. The reference range was not used to interpr et this result as grace l/abnormal. [place] 585814-08-21 02:25:00 Test Item Value Reference Range Interpretation Comments AST (test code = AST) 14 See_Comment [Auto mated message] The system which ge nerated this result transmit ezequiel reference range : <=37. The reference range was not used to interpr et this result as grace l/abnormal. [facility]2014-08-21 02:25:00 Test Item Value Reference Range Interpretation Comments Total Protein (test code = Total 7.4 6.4-8.4 Protein) [facility]2014-08-21 02:25:00 Test Item Value Reference Range Interpretation Comments Chloride Lvl (test code = Chloride Lvl) 107 95-109 [facility]2014-08-21 02:25:00 Test Item Value Reference Range Interpretation Comments Potassium Lvl (test code = Potassium 3.4 3.5-5.1 Lvl) [facility]2014-08-21 02:25:00 Test Item Value Reference Range Interpretation Comments Calcium Lvl (test code = Calcium Lvl) 9.2 8.5-10.5 [facility]2014-08-21 02:25:00 Test Item Value Reference Range Interpretation Comments Alk Phos (test code = Alk Phos) 64 39-136 [facility]2014-08-21 02:25:00 Test Item Value Reference Range Interpretation Comments Bili Total (test code = Bili Total) 0.8 0.2-1.3 [facility]2014-08-21 02:25:00 Test Item Value Reference Range Interpretation Comments Sodium Lvl (test code = Sodium Lvl) 140 135-145 [facility]2014-08-21 02:25:00 Test Item Value Reference Range Interpretation Comments Glucose Lvl (test code = Glucose Lvl) 111 70-99 [facility]2014-08-21 02:25:00 Test Item Value Reference Range Interpretation Comments Creatinine Lvl (test code = Creatinine 1.2 0.5-1.4 Lvl) [facility]2014-08-21 02:25:00 Test Item Value Reference Range Interpretation Comments BUN (test code = BUN) 12 7- [facility] AustinVmhanzkBMGMNFWPMG0665-62-59 02:25:00 Test Item Value Reference Range Interpretation Comments MCV (test code = MCV) 93.4 80.0-94.0 [facility] AustinDwbzdyzEBSZUVAOTD8642-56-92 02:25:00 Test Item Value Reference Range Interpretation Comments MCHC (test code = MCHC) 34.3 32.0-36.0 [facility] AustinSezgvuqTKQFNXJWVN3546-81-18 02:25:00 Test Item Value Reference Range Interpretation Comments MCH (test code = MCH) 32.1 pg 27.0-31.0 [facility] AustinWvmplanVDEAVLUXKJ2574-92-47 02:25:00 Test Item Value Reference Range Interpretation Comments RDW (test code = RDW) 13.4 11.5-14.5 [facility] AustinYvuwxllKPGFJINAPT3765-55-08 02:25:00 Test Item Value Reference Range Interpretation Comments Platelet (test code = Platelet) 184 133-450 [facility] AustinTedglkxBBWFGRTNVO9879-19-63 02:25:00 Test Item Value Reference Range Interpretation Comments MPV (test code = MPV) 9.7 7.4-10.4 [facility] AustinYfhduusTTJTRSGEFI9629-27-72 02:25:00 Test Item Value Reference Range Interpretation Comments RBC (test code = RBC) 4.82 4.70-6.10 [facility] AustinSbxpjzqCGIRTTKLEK7504-44-23 02:25:00 Test Item Value Reference Range Interpretation Comments Hgb (test code = Hgb) 15.5 14.0-18.0 [facility] AustinNwqilkrMIXHELQPON1215-46-44 02:25:00 Test Item Value Reference Range Interpretation Comments WBC (test code = WBC) 9.8 3.7-10.4 [facility] AustinNtnzgjjDTZGJQYTUI8825-32-55 02:25:00 Test Item Value Reference Range Interpretation Comments Hct (test code = Hct) 45.1 42.0-54.0 [facility] AustinKpnpoycWKVYWBZTEE3387-01-34 02:25:00 Test Item Value Reference Range Interpretation Comments PTT (test code = PTT) 33.2 s 22.9-35.8 [facility] AustinTvnxjbkMFNLGABANE5280-04-33 02:25:00 Test Item Value Reference Range Interpretation Comments PT (test code = PT) 12.9 s 12.0-14.7 [facility] AustinUnichjpIODDJZENZW9900-38-76 02:25:00 Test Item Value Reference Range Interpretation Comments INR (test code = INR) 0.98 0.85-1.17 [facility] AustinHtwdpxiWTDDJIDHLL6905-79-04 02:25:00 Test Item Value Reference Range Interpretation Comments Monocytes # (test code 0.9 See_Comment [Aut omated message] The = Monocytes #) system which generated this result tra nsmitted reference range : <=0.8. The reference r tony was not used to int erpret this result as normal/abnormal . [facility] AustinLisxdxoGRZXVWNQTV0137-97-78 02:25:00 Test Item Value Reference Range Interpretation Comments Lymphocytes # (test code = Lymphocytes 4.1 1.0-5.5 #) [facility] AustinNdvdsuaGBPTLLORIC3415-86-52 02:25:00 Test Item Value Reference Range Interpretation Comments Segs-Bands # (test code = Segs-Bands #) 4.5 1.5-8.1 [facility] AustinJmrowzjQXAYPRQROJ4475-08-11 02:25:00 Test Item Value Reference Range Interpretation Comments Basophils # (test code 0.1 See_Comment [Aut omated message] The = Basophils #) system which generated this result tra nsmitted reference range : <=0.2. The reference r tony was not used to int erpret this result as normal/abnormal . [facility] AustinKumrojdOKTEJYXPJO7313-99-34 02:25:00 Test Item Value Reference Range Interpretation Comments Eosinophils # (test code 0.2 See_Comment [A utomated message] The = Eosinophils #) system whic h generated this result tra nsmitted reference range : <=0.5. The reference r tony was not used to int erpret this result as normal/abnormal . [facility] AustinZqkpuqkQZHEIKYBDY1821-64-00 02:25:00 Test Item Value Reference Range Interpretation Comments Segs (test code = Segs) 46.2 45.0-75.0 [facility] AustinSnoifkcFPFQPDLPNJ7569-77-76 02:25:00 Test Item Value Reference Range Interpretation Comments Eosinophils (test code = 1.6 See_Comment [A utomated message] The Eosinophils) system which ge nerated this result tra nsmitted reference range : <=4.0. The reference r tony was not used to int erpret this result as normal/abnormal . [facility] AustinMyocpqaTAHGCAGXZF4555-56-84 02:25:00 Test Item Value Reference Range Interpretation Comments Lymphocytes (test code = Lymphocytes) 42.3 20.0-40.0 [facility] AustinKgmbvkjKBXGHWHCNF0280-63-18 02:25:00 Test Item Value Reference Range Interpretation Comments Basophils (test code = 0.7 See_Comment [Aut omated message] The Basophils) system which ge nerated this result tra nsmitted reference range : <=1.0. The reference r tony was not used to int erpret this result as normal/abnormal . [facility]ZxpqxrmTPUHIEKBZY0820-86-98 02:25:00 Test Item Value Reference Range Interpretation Comments Monocytes (test code = Monocytes) 9.2 2.0-12.0 [facility] HospitalFxhwktjSAYMMOGQTG2265-60-49 02:25:00 Test Item Value Reference Range Interpretation Comments [facility] HIV 4th GEN (test Negative (01/20/14 9:25 code = CDC HIV 4th PM) GEN) [facility]2014-08-21 02:25:00 Test Item Value Reference Range Interpretation Comments Lipase Lvl (test code = Lipase Lvl) 110 73-393 [facility]2014-08-21 02:25:00 Test Item Value Reference Range Interpretation Comments Amylase Lvl (test code = Amylase Lvl) 50 25-115 [facility]2014-08-21 02:25:00 Test Item Value Reference Range Interpretation Comments A/G Ratio (test code = A/G Ratio) 1.4 0.7-1.6 [facility]2014-08-21 02:25:00 Test Item Value Reference Range Interpretation Comments AGAP (test code = AGAP) 10.4 10.0-20.0 [facility]2014-08-21 02:25:00 Test Item Value Reference Range Interpretation Comments B/C Ratio (test code = B/C Ratio) 10 6-25 [facility]2014-08-21 02:25:00 Test Item Value Reference Range Interpretation Comments Globulin (test code = Globulin) 3.1 2.0-4.0 [facility]2014-08-21 02:25:00 Test Item Value Reference Range Interpretation Comments eGFR (test code = eGFR) 84 [facility]2014-08-21 02:25:00 Test Item Value Reference Range Interpretation Comments CO2 (test code = CO2) 26 24-32 [facility]2014-08-21 02:25:00 Test Item Value Reference Range Interpretation Comments Albumin Lvl (test code = Albumin Lvl) 4.3 3.5-5.0 [facility]2014-08-21 02:25:00 Test Item Value Reference Range Interpretation Comments ALT (test code = ALT) 28 See_Comment [Auto mated message] The system which ge nerated this result transmit ezequiel reference range : <=65. The reference range was not used to interpr et this result as grace l/abnormal. [facility]2014-08-21 02:25:00 Test Item Value Reference Range Interpretation Comments AST (test code = AST) 14 See_Comment [Auto mated message] The system which ge nerated this result transmit ezequiel reference range : <=37. The reference range was not used to interpr et this result as grace l/abnormal. [facility]2014-08-21 02:25:00 Test Item Value Reference Range Interpretation Comments Total Protein (test code = Total 7.4 6.4-8.4 Protein) [facility]2014-08-21 02:25:00 Test Item Value Reference Range Interpretation Comments Chloride Lvl (test code = Chloride Lvl) 107 95-109 [facility]2014-08-21 02:25:00 Test Item Value Reference Range Interpretation Comments Potassium Lvl (test code = Potassium 3.4 3.5-5.1 Lvl) [facility]2014-08-21 02:25:00 Test Item Value Reference Range Interpretation Comments Calcium Lvl (test code = Calcium Lvl) 9.2 8.5-10.5 [facility]2014-08-21 02:25:00 Test Item Value Reference Range Interpretation Comments Alk Phos (test code = Alk Phos) 64 39-136 [facility]2014-08-21 02:25:00 Test Item Value Reference Range Interpretation Comments Bili Total (test code = Bili Total) 0.8 0.2-1.3 [facility]2014-08-21 02:25:00 Test Item Value Reference Range Interpretation Comments Sodium Lvl (test code = Sodium Lvl) 140 135-145 [facility]2014-08-21 02:25:00 Test Item Value Reference Range Interpretation Comments Glucose Lvl (test code = Glucose Lvl) 111 70-99 [facility]2014-08-21 02:25:00 Test Item Value Reference Range Interpretation Comments Creatinine Lvl (test code = Creatinine 1.2 0.5-1.4 Lvl) [facility]2014-08-21 02:25:00 Test Item Value Reference Range Interpretation Comments BUN (test code = BUN) 12 7-22 [facility] AustinTudmsnaNHNGUUSSSY8484-12-72 02:25:00 Test Item Value Reference Range Interpretation Comments MCV (test code = MCV) 93.4 80.0-94.0 [facility] AustinWhdyhtcTQENFWGRGY1339-48-00 02:25:00 Test Item Value Reference Range Interpretation Comments MCHC (test code = MCHC) 34.3 32.0-36.0 [facility] AustinKcqroixHUTFSHTPXV5704-00-75 02:25:00 Test Item Value Reference Range Interpretation Comments MCH (test code = MCH) 32.1 pg 27.0-31.0 [facility] AustinXjoumieGHMUMLAIMF6827-85-56 02:25:00 Test Item Value Reference Range Interpretation Comments RDW (test code = RDW) 13.4 11.5-14.5 [facility] AustinLvgierhHNXYNYLUEU8777-81-18 02:25:00 Test Item Value Reference Range Interpretation Comments Platelet (test code = Platelet) 184 133-450 [facility] AustinSmzcabgTRACNDQRWM6589-01-88 02:25:00 Test Item Value Reference Range Interpretation Comments MPV (test code = MPV) 9.7 7.4-10.4 [facility] AustinPmuhistPCCUWMOYEM4748-01-02 02:25:00 Test Item Value Reference Range Interpretation Comments RBC (test code = RBC) 4.82 4.70-6.10 [facility] AustinOwbvoobACUOZIUUHV3121-53-44 02:25:00 Test Item Value Reference Range Interpretation Comments Hgb (test code = Hgb) 15.5 14.0-18.0 [facility] AustinBdayjonPTTFNFPADJ1047-31-53 02:25:00 Test Item Value Reference Range Interpretation Comments WBC (test code = WBC) 9.8 3.7-10.4 [facility] AustinWjvobesMXKQGGIXCN9429-31-48 02:25:00 Test Item Value Reference Range Interpretation Comments Hct (test code = Hct) 45.1 42.0-54.0 [facility] AustinFdxumpqKCWGUFUDXG0026-29-14 02:25:00 Test Item Value Reference Range Interpretation Comments PTT (test code = PTT) 33.2 s 22.9-35.8 [facility] AustinPxbkibgKVJIKJLFVY3330-38-29 02:25:00 Test Item Value Reference Range Interpretation Comments PT (test code = PT) 12.9 s 12.0-14.7 [facility] AustinGawwglhOGFYMAJLDJ4540-29-35 02:25:00 Test Item Value Reference Range Interpretation Comments INR (test code = INR) 0.98 0.85-1.17 [facility] AustinGkjlisqBCJILKVDQC7786-32-47 02:25:00 Test Item Value Reference Range Interpretation Comments Monocytes # (test code 0.9 See_Comment [Aut omated message] The = Monocytes #) system which generated this result tra nsmitted reference range : <=0.8. The reference r tony was not used to int erpret this result as normal/abnormal . [facility] AustinRejttgdCVFLZIUVGQ7150-82-58 02:25:00 Test Item Value Reference Range Interpretation Comments Lymphocytes # (test code = Lymphocytes 4.1 1.0-5.5 #) [facility] AustinEciorddTCIVCBDWKX2712-34-09 02:25:00 Test Item Value Reference Range Interpretation Comments Segs-Bands # (test code = Segs-Bands #) 4.5 1.5-8.1 [facility] AustinXypsimaLGDTVVLHOK2496-87-56 02:25:00 Test Item Value Reference Range Interpretation Comments Basophils # (test code 0.1 See_Comment [Aut omated message] The = Basophils #) system which generated this result tra nsmitted reference range : <=0.2. The reference r tony was not used to int erpret this result as normal/abnormal . [facility] AustinPjhtxuuFNYJPESMMH3242-22-35 02:25:00 Test Item Value Reference Range Interpretation Comments Eosinophils # (test code 0.2 See_Comment [A utomated message] The = Eosinophils #) system whic h generated this result tra nsmitted reference range : <=0.5. The reference r tony was not used to int erpret this result as normal/abnormal . [facility] AustinBzqhjmnBDRISIZCKJ5771-80-59 02:25:00 Test Item Value Reference Range Interpretation Comments Segs (test code = Segs) 46.2 45.0-75.0 [facility] AustinQykmxtdOPZRTWOISF3349-86-85 02:25:00 Test Item Value Reference Range Interpretation Comments Eosinophils (test code = 1.6 See_Comment [A utomated message] The Eosinophils) system which ge nerated this result tra nsmitted reference range : <=4.0. The reference r tony was not used to int erpret this result as normal/abnormal . [facility] HospitalPulyuytETFLLDONJQ2493-73-95 02:25:00 Test Item Value Reference Range Interpretation Comments Lymphocytes (test code = Lymphocytes) 42.3 20.0-40.0 [facility]moyxoiHBQBQBIRPJ3443-54-91 02:25:00 Test Item Value Reference Range Interpretation Comments Basophils (test code = 0.7 See_Comment [Aut omated message] The Basophils) system which ge nerated this result tra nsmitted reference range : <=1.0. The reference r tony was not used to int erpret this result as normal/abnormal . [facility] HospitalUmnurqqIBTGIXMECE4289-62-75 02:25:00 Test Item Value Reference Range Interpretation Comments Monocytes (test code = Monocytes) 9.2 2.0-12.0 [facility] HospitalYnpabhdQEPKRLHTQM0087-72-00 02:25:00 Test Item Value Reference Range Interpretation Comments [facility] HIV 4th GEN (test Negative (01/20/14 9:25 code = CDC HIV 4th PM) GEN) [facility] AND WMHJO7660-49-23 23:45:00 Test Item Value Reference Range Interpretation Comments UA Nitrite (test code Negative (12/16/13 6:45 = UA Nitrite) PM) [facility] AND JBLSF3953-53-47 23:45:00 Test Item Value Reference Range Interpretation Comments UA Urobilinogen (test code = UA 0.2 0.1-1.0 Urobilinogen) [facility] AND [id number] 23:45:00 Test Item Value Reference Range Interpretation Comments UA Leuk Est (test Negative (12/16/13 6:45 code = UA Leuk Est) PM) [facility] AND VXJPB1655-69-76 23:45:00 Test Item Value Reference Range Interpretation Comments UA Spec Grav (test code = UA Spec 1.025 1 Grav) [facility] AND AWZCW3532-80-16 23:45:00 Test Item Value Reference Range Interpretation Comments UA Turbidity (test code = Clear (12/16/13 6:45 UA Turbidity) PM) [facility] AND NUFVO5892-74-90 23:45:00 Test Item Value Reference Range Interpretation Comments UA Color (test code = Yellow *NA*(12/16/13 UA Color) 6:45 PM) [facility] AND [id number] 23:45:00 Test Item Value Reference Range Interpretation Comments UA Bili (test code = Negative *NA*(12/16/13 UA Bili) 6:45 PM) [facility] AND [id number] 23:45:00 Test Item Value Reference Range Interpretation Comments UA Blood (test code = Negative (12/16/13 6:45 UA Blood) PM) [facility] AND RYVHS9821-10-12 23:45:00 Test Item Value Reference Range Interpretation Comments UA Glucose (test code = UA Negative mg/dL Glucose) [facility] AND [id number] 23:45:00 Test Item Value Reference Range Interpretation Comments UA Ketones (test code = UA Negative mg/dL Ketones) [facility] AND ZXMCK6397-13-45 23:45:00 Test Item Value Reference Range Interpretation Comments UA pH (test code = UA pH) 6.0 1 5.0-8.0 [facility] AND [id number] 23:45:00 Test Item Value Reference Range Interpretation Comments UA Protein (test code = UA Negative mg/dL Protein) [facility] AND ODSYV3955-23-24 23:45:00 Test Item Value Reference Range Interpretation Comments UA Bacteria (test code = UA Occasional /HPF Bacteria) [facility] AND [id number] 23:45:00 Test Item Value Reference Range Interpretation Comments UA Mucus (test code = UA Mucus) Few /LPF [facility] AND [id number] 23:45:00 Test Item Value Reference Range Interpretation Comments Micro? (test code = Performed (12/16/13 6:45 Micro?) PM) [facility] AND [id number] 23:45:00 Test Item Value Reference Range Interpretation Comments UA RBC (test code = 0-2 /HPF See_Comment [Automa ezequiel message] The UA RBC) system which ge nerated this result tra nsmitted reference range : <=2. The reference range was not used to interpr et this result as grace l/abnormal. [facility] AND [id number] 23:45:00 Test Item Value Reference Range Interpretation Comments UA Sq Epi (test code = UA Sq Occasional /LPF Epi) [facility] AND [id number] 23:45:00 Test Item Value Reference Range Interpretation Comments UA WBC (test code = UA WBC) 0-2 /HPF [facility] AND [id number] 23:45:00 Test Item Value Reference Range Interpretation Comments UA Nitrite (test code Negative (12/16/13 6:45 = UA Nitrite) PM) [facility] AND [id number] 23:45:00 Test Item Value Reference Range Interpretation Comments UA Urobilinogen (test code = UA 0.2 0.1-1.0 Urobilinogen) [facility] AND [id number] 23:45:00 Test Item Value Reference Range Interpretation Comments UA Leuk Est (test Negative (12/16/13 6:45 code = UA Leuk Est) PM) [facility] AND [id number] 23:45:00 Test Item Value Reference Range Interpretation Comments UA Spec Grav (test code = UA Spec 1.025 1 Grav) [facility] AND [id number] 23:45:00 Test Item Value Reference Range Interpretation Comments UA Turbidity (test code = Clear (12/16/13 6:45 UA Turbidity) PM) [facility] AND [id number] 23:45:00 Test Item Value Reference Range Interpretation Comments UA Color (test code = Yellow *NA*(12/16/13 UA Color) 6:45 PM) [facility] AND [id number] 23:45:00 Test Item Value Reference Range Interpretation Comments UA Bili (test code = Negative *NA*(12/16/13 UA Bili) 6:45 PM) [facility] AND [id number] 23:45:00 Test Item Value Reference Range Interpretation Comments UA Blood (test code = Negative (12/16/13 6:45 UA Blood) PM) [facility] AND [id number] 23:45:00 Test Item Value Reference Range Interpretation Comments UA Glucose (test code = UA Negative mg/dL Glucose) [facility] AND [id number] 23:45:00 Test Item Value Reference Range Interpretation Comments UA Ketones (test code = UA Negative mg/dL Ketones) [facility] AND [id number] 23:45:00 Test Item Value Reference Range Interpretation Comments UA pH (test code = UA pH) 6.0 1 5.0-8.0 [facility] AND [id number] 23:45:00 Test Item Value Reference Range Interpretation Comments UA Protein (test code = UA Negative mg/dL Protein) [facility] AND [id number] 23:45:00 Test Item Value Reference Range Interpretation Comments UA Bacteria (test code = UA Occasional /HPF Bacteria) [facility] AND [id number] 23:45:00 Test Item Value Reference Range Interpretation Comments UA Mucus (test code = UA Mucus) Few /LPF [facility] AND [id number] 23:45:00 Test Item Value Reference Range Interpretation Comments Micro? (test code = Performed (12/16/13 6:45 Micro?) PM) [facility] AND [id number] 23:45:00 Test Item Value Reference Range Interpretation Comments UA RBC (test code = 0-2 /HPF See_Comment [Automa ezequiel message] The UA RBC) system which ge nerated this result tra nsmitted reference range : <=2. The reference range was not used to interpr et this result as grace l/abnormal. [facility] AND [id number] 23:45:00 Test Item Value Reference Range Interpretation Comments UA Sq Epi (test code = UA Sq Occasional /LPF Epi) [facility] AND [id number] 23:45:00 Test Item Value Reference Range Interpretation Comments UA WBC (test code = UA WBC) 0-2 /HPF [facility] AND [id number] 23:45:00 Test Item Value Reference Range Interpretation Comments UA Nitrite (test code Negative (12/16/13 6:45 = UA Nitrite) PM) [facility] AND [id number] 23:45:00 Test Item Value Reference Range Interpretation Comments UA Urobilinogen (test code = UA 0.2 0.1-1.0 Urobilinogen) [facility] AND [id number] 23:45:00 Test Item Value Reference Range Interpretation Comments UA Leuk Est (test Negative (12/16/13 6:45 code = UA Leuk Est) PM) [facility] AND [id number] 23:45:00 Test Item Value Reference Range Interpretation Comments UA Spec Grav (test code = UA Spec 1.025 1 Grav) [facility] AND [id number] 23:45:00 Test Item Value Reference Range Interpretation Comments UA Turbidity (test code = Clear (12/16/13 6:45 UA Turbidity) PM) [facility] AND [id number] 23:45:00 Test Item Value Reference Range Interpretation Comments UA Color (test code = Yellow *NA*(12/16/13 UA Color) 6:45 PM) [facility] AND [id number] 23:45:00 Test Item Value Reference Range Interpretation Comments UA Bili (test code = Negative *NA*(12/16/13 UA Bili) 6:45 PM) [facility] AND [id number] 23:45:00 Test Item Value Reference Range Interpretation Comments UA Blood (test code = Negative (12/16/13 6:45 UA Blood) PM) [facility] AND [id number] 23:45:00 Test Item Value Reference Range Interpretation Comments UA Glucose (test code = UA Negative mg/dL Glucose) [facility] AND [id number] 23:45:00 Test Item Value Reference Range Interpretation Comments UA Ketones (test code = UA Negative mg/dL Ketones) [facility] AND [id number] 23:45:00 Test Item Value Reference Range Interpretation Comments UA pH (test code = UA pH) 6.0 1 5.0-8.0 [facility] AND [id number] 23:45:00 Test Item Value Reference Range Interpretation Comments UA Protein (test code = UA Negative mg/dL Protein) [facility] AND [id number] 23:45:00 Test Item Value Reference Range Interpretation Comments UA Bacteria (test code = UA Occasional /HPF Bacteria) [facility] AND [id number] 23:45:00 Test Item Value Reference Range Interpretation Comments UA Mucus (test code = UA Mucus) Few /LPF [facility] AND [id number] 23:45:00 Test Item Value Reference Range Interpretation Comments Micro? (test code = Performed (12/16/13 6:45 Micro?) PM) [facility] AND [id number] 23:45:00 Test Item Value Reference Range Interpretation Comments UA RBC (test code = 0-2 /HPF See_Comment [Automa ezequiel message] The UA RBC) system which ge nerated this result tra nsmitted reference range : <=2. The reference range was not used to interpr et this result as grace l/abnormal. [facility] AND [id number] 23:45:00 Test Item Value Reference Range Interpretation Comments UA Sq Epi (test code = UA Sq Occasional /LPF Epi) [facility] AND [id number] 23:45:00 Test Item Value Reference Range Interpretation Comments UA WBC (test code = UA WBC) 0-2 /HPF [facility] AND [id number] 23:45:00 Test Item Value Reference Range Interpretation Comments UA Nitrite (test code Negative (12/16/13 6:45 = UA Nitrite) PM) [facility] AND [id number] 23:45:00 Test Item Value Reference Range Interpretation Comments UA Urobilinogen (test code = UA 0.2 0.1-1.0 Urobilinogen) [facility] AND [id number] 23:45:00 Test Item Value Reference Range Interpretation Comments UA Leuk Est (test Negative (12/16/13 6:45 code = UA Leuk Est) PM) [facility] AND [id number] 23:45:00 Test Item Value Reference Range Interpretation Comments UA Spec Grav (test code = UA Spec 1.025 1 Grav) [facility] AND [id number] 23:45:00 Test Item Value Reference Range Interpretation Comments UA Turbidity (test code = Clear (12/16/13 6:45 UA Turbidity) PM) [facility] AND [id number] 23:45:00 Test Item Value Reference Range Interpretation Comments UA Color (test code = Yellow *NA*(12/16/13 UA Color) 6:45 PM) [facility] AND [id number] 23:45:00 Test Item Value Reference Range Interpretation Comments UA Bili (test code = Negative *NA*(12/16/13 UA Bili) 6:45 PM) [facility] AND [id number] 23:45:00 Test Item Value Reference Range Interpretation Comments UA Blood (test code = Negative (12/16/13 6:45 UA Blood) PM) [facility] AND [id number] 23:45:00 Test Item Value Reference Range Interpretation Comments UA Glucose (test code = UA Negative mg/dL Glucose) [facility] AND [id number] 23:45:00 Test Item Value Reference Range Interpretation Comments UA Ketones (test code = UA Negative mg/dL Ketones) [facility] AND [id number] 23:45:00 Test Item Value Reference Range Interpretation Comments UA pH (test code = UA pH) 6.0 1 5.0-8.0 [facility] AND [id number] 23:45:00 Test Item Value Reference Range Interpretation Comments UA Protein (test code = UA Negative mg/dL Protein) [facility] AND [id number] 23:45:00 Test Item Value Reference Range Interpretation Comments UA Bacteria (test code = UA Occasional /HPF Bacteria) [facility] AND [id number] 23:45:00 Test Item Value Reference Range Interpretation Comments UA Mucus (test code = UA Mucus) Few /LPF [facility] AND [id number] 23:45:00 Test Item Value Reference Range Interpretation Comments Micro? (test code = Performed (12/16/13 6:45 Micro?) PM) [facility] AND [id number] 23:45:00 Test Item Value Reference Range Interpretation Comments UA RBC (test code = 0-2 /HPF See_Comment [Automa ezequiel message] The UA RBC) system which ge nerated this result tra nsmitted reference range : <=2. The reference range was not used to interpr et this result as grace l/abnormal. [facility] AND [id number] 23:45:00 Test Item Value Reference Range Interpretation Comments UA Sq Epi (test code = UA Sq Occasional /LPF Epi) [facility] AND [id number] 23:45:00 Test Item Value Reference Range Interpretation Comments UA WBC (test code = UA WBC) 0-2 /HPF [facility] AND [id number] 23:45:00 Test Item Value Reference Range Interpretation Comments UA Nitrite (test code Negative (12/16/13 6:45 = UA Nitrite) PM) [facility] AND [id number] 23:45:00 Test Item Value Reference Range Interpretation Comments UA Urobilinogen (test code = UA 0.2 0.1-1.0 Urobilinogen) [facility] AND [id number] 23:45:00 Test Item Value Reference Range Interpretation Comments UA Leuk Est (test Negative (12/16/13 6:45 code = UA Leuk Est) PM) [facility] AND [id number] 23:45:00 Test Item Value Reference Range Interpretation Comments UA Spec Grav (test code = UA Spec 1.025 1 Grav) [facility] AND [id number] 23:45:00 Test Item Value Reference Range Interpretation Comments UA Turbidity (test code = Clear (12/16/13 6:45 UA Turbidity) PM) [facility] AND [id number] 23:45:00 Test Item Value Reference Range Interpretation Comments UA Color (test code = Yellow *NA*(12/16/13 UA Color) 6:45 PM) [facility] AND [id number] 23:45:00 Test Item Value Reference Range Interpretation Comments UA Bili (test code = Negative *NA*(12/16/13 UA Bili) 6:45 PM) [facility] AND [id number] 23:45:00 Test Item Value Reference Range Interpretation Comments UA Blood (test code = Negative (12/16/13 6:45 UA Blood) PM) [facility] AND [id number] 23:45:00 Test Item Value Reference Range Interpretation Comments UA Glucose (test code = UA Negative mg/dL Glucose) [facility] AND [id number] 23:45:00 Test Item Value Reference Range Interpretation Comments UA Ketones (test code = UA Negative mg/dL Ketones) [facility] AND [id number] 23:45:00 Test Item Value Reference Range Interpretation Comments UA pH (test code = UA pH) 6.0 1 5.0-8.0 [facility] AND [id number] 23:45:00 Test Item Value Reference Range Interpretation Comments UA Protein (test code = UA Negative mg/dL Protein) [facility] AND [id number] 23:45:00 Test Item Value Reference Range Interpretation Comments UA Bacteria (test code = UA Occasional /HPF Bacteria) [facility] AND [id number] 23:45:00 Test Item Value Reference Range Interpretation Comments UA Mucus (test code = UA Mucus) Few /LPF [facility] AND [id number] 23:45:00 Test Item Value Reference Range Interpretation Comments Micro? (test code = Performed (12/16/13 6:45 Micro?) PM) [facility] AND [id number] 23:45:00 Test Item Value Reference Range Interpretation Comments UA RBC (test code = 0-2 /HPF See_Comment [Automa ezequiel message] The UA RBC) system which ge nerated this result tra nsmitted reference range : <=2. The reference range was not used to interpr et this result as grace l/abnormal. [facility] AND [id number] 23:45:00 Test Item Value Reference Range Interpretation Comments UA Sq Epi (test code = UA Sq Occasional /LPF Epi) [facility] AND [id number] 23:45:00 Test Item Value Reference Range Interpretation Comments UA WBC (test code = UA WBC) 0-2 /HPF [facility] AND [id number] 23:45:00 Test Item Value Reference Range Interpretation Comments UA Nitrite (test code Negative (12/16/13 6:45 = UA Nitrite) PM) [facility] AND [id number] 23:45:00 Test Item Value Reference Range Interpretation Comments UA Urobilinogen (test code = UA 0.2 0.1-1.0 Urobilinogen) [facility] AND [id number] 23:45:00 Test Item Value Reference Range Interpretation Comments UA Leuk Est (test Negative (12/16/13 6:45 code = UA Leuk Est) PM) [facility] AND [id number] 23:45:00 Test Item Value Reference Range Interpretation Comments UA Spec Grav (test code = UA Spec 1.025 1 Grav) [facility] AND [id number] 23:45:00 Test Item Value Reference Range Interpretation Comments UA Turbidity (test code = Clear (12/16/13 6:45 UA Turbidity) PM) [facility] AND [id number] 23:45:00 Test Item Value Reference Range Interpretation Comments UA Color (test code = Yellow *NA*(12/16/13 UA Color) 6:45 PM) [facility] AND [id number] 23:45:00 Test Item Value Reference Range Interpretation Comments UA Bili (test code = Negative *NA*(12/16/13 UA Bili) 6:45 PM) [facility] AND [id number] 23:45:00 Test Item Value Reference Range Interpretation Comments UA Blood (test code = Negative (12/16/13 6:45 UA Blood) PM) [facility] AND [id number] 23:45:00 Test Item Value Reference Range Interpretation Comments UA Glucose (test code = UA Negative mg/dL Glucose) [facility] AND [id number] 23:45:00 Test Item Value Reference Range Interpretation Comments UA Ketones (test code = UA Negative mg/dL Ketones) [facility] AND [id number] 23:45:00 Test Item Value Reference Range Interpretation Comments UA pH (test code = UA pH) 6.0 1 5.0-8.0 [facility] AND [id number] 23:45:00 Test Item Value Reference Range Interpretation Comments UA Protein (test code = UA Negative mg/dL Protein) [facility] AND [id number] 23:45:00 Test Item Value Reference Range Interpretation Comments UA Bacteria (test code = UA Occasional /HPF Bacteria) [facility] AND [id number] 23:45:00 Test Item Value Reference Range Interpretation Comments UA Mucus (test code = UA Mucus) Few /LPF [facility] AND [id number] 23:45:00 Test Item Value Reference Range Interpretation Comments Micro? (test code = Performed (12/16/13 6:45 Micro?) PM) [facility] AND [id number] 23:45:00 Test Item Value Reference Range Interpretation Comments UA RBC (test code = 0-2 /HPF See_Comment [Automa ezequiel message] The UA RBC) system which ge nerated this result tra nsmitted reference range : <=2. The reference range was not used to interpr et this result as grace l/abnormal. [facility] AND [id number] 23:45:00 Test Item Value Reference Range Interpretation Comments UA Sq Epi (test code = UA Sq Occasional /LPF Epi) [facility] AND [id number] 23:45:00 Test Item Value Reference Range Interpretation Comments UA WBC (test code = UA WBC) 0-2 /HPF [facility]2014-07-16 22:20:00 Test Item Value Reference Range Interpretation Comments Lipase Lvl (test code = Lipase Lvl) 151 73-393 [facility]2014-07-16 22:20:00 Test Item Value Reference Range Interpretation Comments eGFR (test code = eGFR) 93 [facility]2014-07-16 22:20:00 Test Item Value Reference Range Interpretation Comments AST (test code = AST) 23 See_Comment [Auto mated message] The system which ge nerated this result transmit ezequiel reference range : <=37. The reference range was not used to interpr et this result as grace l/abnormal. [facility]2014-07-16 22:20:00 Test Item Value Reference Range Interpretation Comments Alk Phos (test code = Alk Phos) 67 39-136 [facility]2014-07-16 22:20:00 Test Item Value Reference Range Interpretation Comments Bili Total (test code = Bili Total) 0.7 0.2-1.3 [facility]2014-07-16 22:20:00 Test Item Value Reference Range Interpretation Comments Albumin Lvl (test code = Albumin Lvl) 5.0 3.5-5.0 [facility]2014-07-16 22:20:00 Test Item Value Reference Range Interpretation Comments ALT (test code = ALT) 43 See_Comment [Auto mated message] The system which ge nerated this result transmit ezequiel reference range : <=65. The reference range was not used to interpr et this result as grace l/abnormal. [facility]2014-07-16 22:20:00 Test Item Value Reference Range Interpretation Comments BUN (test code = BUN) 22 7-22 [facility]2014-07-16 22:20:00 Test Item Value Reference Range Interpretation Comments Glucose Lvl (test code = Glucose Lvl) 90 70-99 [facility]2014-07-16 22:20:00 Test Item Value Reference Range Interpretation Comments Creatinine Lvl (test code = Creatinine 1.1 0.5-1.4 Lvl) [facility]2014-07-16 22:20:00 Test Item Value Reference Range Interpretation Comments Sodium Lvl (test code = Sodium Lvl) 140 135-145 [facility]2014-07-16 22:20:00 Test Item Value Reference Range Interpretation Comments Potassium Lvl (test code = Potassium 4.0 3.5-5.1 Lvl) [facility]2014-07-16 22:20:00 Test Item Value Reference Range Interpretation Comments Calcium Lvl (test code = Calcium Lvl) 9.5 8.5-10.5 [facility]2014-07-16 22:20:00 Test Item Value Reference Range Interpretation Comments Total Protein (test code = Total 8.3 6.4-8.4 Protein) [facility]2014-07-16 22:20:00 Test Item Value Reference Range Interpretation Comments Chloride Lvl (test code = Chloride Lvl) 104 95-109 [facility]2014-07-16 22:20:00 Test Item Value Reference Range Interpretation Comments CO2 (test code = CO2) 27 24-32 [facility]2014-07-16 22:20:00 Test Item Value Reference Range Interpretation Comments AGAP (test code = AGAP) 13.0 10.0-20.0 [facility]2014-07-16 22:20:00 Test Item Value Reference Range Interpretation Comments B/C Ratio (test code = B/C Ratio) 20 6-25 [facility]2014-07-16 22:20:00 Test Item Value Reference Range Interpretation Comments Globulin (test code = Globulin) 3.3 2.0-4.0 [facility]2014-07-16 22:20:00 Test Item Value Reference Range Interpretation Comments A/G Ratio (test code = A/G Ratio) 1.5 0.7-1.6 [id number] 22:20:00 Test Item Value Reference Range Interpretation Comments Basophils # (test code 0.1 See_Comment [Aut omated message] The = Basophils #) system which generated this result tra nsmitted reference range : <=0.2. The reference r tony was not used to int erpret this result as normal/abnormal . [id number] 22:20:00 Test Item Value Reference Range Interpretation Comments Monocytes # (test code 0.9 See_Comment [Aut omated message] The = Monocytes #) system which generated this result tra nsmitted reference range : <=0.8. The reference r tony was not used to int erpret this result as normal/abnormal . [facility] [id number] 22:20:00 Test Item Value Reference Range Interpretation Comments Eosinophils # (test code 0.3 See_Comment [A utomated message] The = Eosinophils #) system whic h generated this result tra nsmitted reference range : <=0.5. The reference r tony was not used to int erpret this result as normal/abnormal . [facility] [id number] 22:20:00 Test Item Value Reference Range Interpretation Comments Segs-Bands # (test code = Segs-Bands #) 6.5 1.5-8.1 [facility] Aust[id number] 22:20:00 Test Item Value Reference Range Interpretation Comments Lymphocytes # (test code = Lymphocytes 3.3 1.0-5.5 #) [facility] Aust[id number] 22:20:00 Test Item Value Reference Range Interpretation Comments Basophils (test code = 0.8 See_Comment [Aut omated message] The Basophils) system which ge nerated this result tra nsmitted reference range : <=1.0. The reference r tony was not used to int erpret this result as normal/abnormal . [facility] [id number] 22:20:00 Test Item Value Reference Range Interpretation Comments Eosinophils (test code = 2.3 See_Comment [A utomated message] The Eosinophils) system which ge nerated this result tra nsmitted reference range : <=4.0. The reference r tony was not used to int erpret this result as normal/abnormal . [facility] [id number] 22:20:00 Test Item Value Reference Range Interpretation Comments Lymphocytes (test code = Lymphocytes) 29.9 20.0-40.0 [facility] AustinLlwqxyhKWCODRWRXI0974-42-44 22:20:00 Test Item Value Reference Range Interpretation Comments Monocytes (test code = Monocytes) 7.9 2.0-12.0 [facility] Aust[id number] 22:20:00 Test Item Value Reference Range Interpretation Comments Segs (test code = Segs) 59.1 45.0-75.0 [facility] Aust[id number] 22:20:00 Test Item Value Reference Range Interpretation Comments MPV (test code = MPV) 9.4 7.4-10.4 [facility] AustinZvxstzxPVODJANXNJ8778-50-36 22:20:00 Test Item Value Reference Range Interpretation Comments RDW (test code = RDW) 13.8 11.5-14.5 [facility] AustinLwzboucCBQNXBVOEP0121-92-61 22:20:00 Test Item Value Reference Range Interpretation Comments Platelet (test code = Platelet) 234 133-450 [facility] AustinYgdfnlaPXIOPKTGQV8425-75-76 22:20:00 Test Item Value Reference Range Interpretation Comments MCHC (test code = MCHC) 34.3 32.0-36.0 [facility] AustinBnaxuayVRTRUWRRIF3862-76-30 22:20:00 Test Item Value Reference Range Interpretation Comments MCH (test code = MCH) 32.6 pg 27.0-31.0 [facility] Aust[id number] 22:20:00 Test Item Value Reference Range Interpretation Comments Hgb (test code = Hgb) 16.3 14.0-18.0 [facility]FzhfpwpVMKITWLKME7548-97-06 22:20:00 Test Item Value Reference Range Interpretation Comments MCV (test code = MCV) 95.0 80.0-94.0 [facility] AustinXxkhgtxVCXFCZPBNC4609-48-33 22:20:00 Test Item Value Reference Range Interpretation Comments Hct (test code = Hct) 47.5 42.0-54.0 [facility] AustinDadabbwFYXGUZKKVO6855-51-11 22:20:00 Test Item Value Reference Range Interpretation Comments RBC (test code = RBC) 5.00 4.70-6.10 [facility] AustinThxahcxWSNMEUIHUS5659-21-33 22:20:00 Test Item Value Reference Range Interpretation Comments WBC (test code = WBC) 11.0 3.7-10.4 [facility]2014-07-16 22:20:00 Test Item Value Reference Range Interpretation Comments Lipase Lvl (test code = Lipase Lvl) 151 73-393 [facility]2014-07-16 22:20:00 Test Item Value Reference Range Interpretation Comments eGFR (test code = eGFR) 93 [facility]2014-07-16 22:20:00 Test Item Value Reference Range Interpretation Comments AST (test code = AST) 23 See_Comment [Auto mated message] The system which ge nerated this result transmit ezequiel reference range : <=37. The reference range was not used to interpr et this result as grace l/abnormal. [facility]2014-07-16 22:20:00 Test Item Value Reference Range Interpretation Comments Alk Phos (test code = Alk Phos) 67 39-136 [facility]2014-07-16 22:20:00 Test Item Value Reference Range Interpretation Comments Bili Total (test code = Bili Total) 0.7 0.2-1.3 [facility]2014-07-16 22:20:00 Test Item Value Reference Range Interpretation Comments Albumin Lvl (test code = Albumin Lvl) 5.0 3.5-5.0 [facility]2014-07-16 22:20:00 Test Item Value Reference Range Interpretation Comments ALT (test code = ALT) 43 See_Comment [Auto mated message] The system which ge nerated this result transmit ezequiel reference range : <=65. The reference range was not used to interpr et this result as grace l/abnormal. [facility]2014-07-16 22:20:00 Test Item Value Reference Range Interpretation Comments BUN (test code = BUN) 22 7-22 [facility]2014-07-16 22:20:00 Test Item Value Reference Range Interpretation Comments Glucose Lvl (test code = Glucose Lvl) 90 70-99 [facility]2014-07-16 22:20:00 Test Item Value Reference Range Interpretation Comments Creatinine Lvl (test code = Creatinine 1.1 0.5-1.4 Lvl) [facility]2014-07-16 22:20:00 Test Item Value Reference Range Interpretation Comments Sodium Lvl (test code = Sodium Lvl) 140 135-145 [facility]2014-07-16 22:20:00 Test Item Value Reference Range Interpretation Comments Potassium Lvl (test code = Potassium 4.0 3.5-5.1 Lvl) [facility]2014-07-16 22:20:00 Test Item Value Reference Range Interpretation Comments Calcium Lvl (test code = Calcium Lvl) 9.5 8.5-10.5 [facility]2014-07-16 22:20:00 Test Item Value Reference Range Interpretation Comments Total Protein (test code = Total 8.3 6.4-8.4 Protein) [facility]2014-07-16 22:20:00 Test Item Value Reference Range Interpretation Comments Chloride Lvl (test code = Chloride Lvl) 104 95-109 [facility]2014-07-16 22:20:00 Test Item Value Reference Range Interpretation Comments CO2 (test code = CO2) 27 24-32 [facility]2014-07-16 22:20:00 Test Item Value Reference Range Interpretation Comments AGAP (test code = AGAP) 13.0 10.0-20.0 [facility]2014-07-16 22:20:00 Test Item Value Reference Range Interpretation Comments B/C Ratio (test code = B/C Ratio) 20 6-25 [facility]2014-07-16 22:20:00 Test Item Value Reference Range Interpretation Comments Globulin (test code = Globulin) 3.3 2.0-4.0 [facility]2014-07-16 22:20:00 Test Item Value Reference Range Interpretation Comments A/G Ratio (test code = A/G Ratio) 1.5 0.7-1.6 [facility] AustinGrfgrbsIQRMOBKCOK1750-99-91 22:20:00 Test Item Value Reference Range Interpretation Comments Basophils # (test code 0.1 See_Comment [Aut omated message] The = Basophils #) system which generated this result tra nsmitted reference range : <=0.2. The reference r tony was not used to int erpret this result as normal/abnormal . [facility] AustinDoknlxtGYSVEQFXPK8351-94-66 22:20:00 Test Item Value Reference Range Interpretation Comments Monocytes # (test code 0.9 See_Comment [Aut omated message] The = Monocytes #) system which generated this result tra nsmitted reference range : <=0.8. The reference r tony was not used to int erpret this result as normal/abnormal . [facility] AustinCputgtxIZGESQODBI0714-81-13 22:20:00 Test Item Value Reference Range Interpretation Comments Eosinophils # (test code 0.3 See_Comment [A utomated message] The = Eosinophils #) system whic h generated this result tra nsmitted reference range : <=0.5. The reference r tony was not used to int erpret this result as normal/abnormal . [facility] AustinZddkccgBZPVVQQQYD3447-85-28 22:20:00 Test Item Value Reference Range Interpretation Comments Segs-Bands # (test code = Segs-Bands #) 6.5 1.5-8.1 [facility] AustinMtyrxxvATWXBBYJCE8338-04-71 22:20:00 Test Item Value Reference Range Interpretation Comments Lymphocytes # (test code = Lymphocytes 3.3 1.0-5.5 #) [facility] AustinMkksmowMSVVWLXRKW0425-01-88 22:20:00 Test Item Value Reference Range Interpretation Comments Basophils (test code = 0.8 See_Comment [Aut omated message] The Basophils) system which ge nerated this result tra nsmitted reference range : <=1.0. The reference r tony was not used to int erpret this result as normal/abnormal . [facility] AustinOmnqfbkWSNXBMHNQI9601-86-35 22:20:00 Test Item Value Reference Range Interpretation Comments Eosinophils (test code = 2.3 See_Comment [A utomated message] The Eosinophils) system which ge nerated this result tra nsmitted reference range : <=4.0. The reference r tony was not used to int erpret this result as normal/abnormal . [facility] AustinSwyofxcQBKWQSGQAU5090-51-64 22:20:00 Test Item Value Reference Range Interpretation Comments Lymphocytes (test code = Lymphocytes) 29.9 20.0-40.0 [facility] AustinOcgfgnfRHTFIAVKCL3128-81-25 22:20:00 Test Item Value Reference Range Interpretation Comments Monocytes (test code = Monocytes) 7.9 2.0-12.0 [facility] AustinXobnsfoRVVRZEDXRQ3290-19-54 22:20:00 Test Item Value Reference Range Interpretation Comments Segs (test code = Segs) 59.1 45.0-75.0 [facility] AustinTqgcnhfEOSRXKYDOX1111-26-43 22:20:00 Test Item Value Reference Range Interpretation Comments MPV (test code = MPV) 9.4 7.4-10.4 [facility] AustinSydaodtTNEZXNNBYG1545-70-77 22:20:00 Test Item Value Reference Range Interpretation Comments RDW (test code = RDW) 13.8 11.5-14.5 [facility] AustinCmywiyhKSXWUEXSCM1649-21-91 22:20:00 Test Item Value Reference Range Interpretation Comments Platelet (test code = Platelet) 234 133-450 [facility] AustinPcxocemBYWXZGPWUL3301-15-62 22:20:00 Test Item Value Reference Range Interpretation Comments MCHC (test code = MCHC) 34.3 32.0-36.0 [facility] AustinEacheayITMCUWOBVU1887-96-45 22:20:00 Test Item Value Reference Range Interpretation Comments MCH (test code = MCH) 32.6 pg 27.0-31.0 [facility] AustinIzqfmtxYTHATVNODB6441-70-73 22:20:00 Test Item Value Reference Range Interpretation Comments Hgb (test code = Hgb) 16.3 14.0-18.0 [facility] AustinTpkzatxJYYLEYNIXM1633-46-79 22:20:00 Test Item Value Reference Range Interpretation Comments MCV (test code = MCV) 95.0 80.0-94.0 [facility] AustinZsjvpujZABMNSRIJJ9473-53-60 22:20:00 Test Item Value Reference Range Interpretation Comments Hct (test code = Hct) 47.5 42.0-54.0 [facility] AustinHdqnznbLCRRPQRIBR1901-20-27 22:20:00 Test Item Value Reference Range Interpretation Comments RBC (test code = RBC) 5.00 4.70-6.10 [facility] AustinAswfdyfEXONHEEHYD0984-21-65 22:20:00 Test Item Value Reference Range Interpretation Comments WBC (test code = WBC) 11.0 3.7-10.4 [facility]2014-07-16 22:20:00 Test Item Value Reference Range Interpretation Comments Lipase Lvl (test code = Lipase Lvl) 151 73-393 [facility]2014-07-16 22:20:00 Test Item Value Reference Range Interpretation Comments eGFR (test code = eGFR) 93 [facility]2014-07-16 22:20:00 Test Item Value Reference Range Interpretation Comments AST (test code = AST) 23 See_Comment [Auto mated message] The system which ge nerated this result transmit ezequiel reference range : <=37. The reference range was not used to interpr et this result as grace l/abnormal. [facility]2014-07-16 22:20:00 Test Item Value Reference Range Interpretation Comments Alk Phos (test code = Alk Phos) 67 39-136 [facility]2014-07-16 22:20:00 Test Item Value Reference Range Interpretation Comments Bili Total (test code = Bili Total) 0.7 0.2-1.3 [facility]2014-07-16 22:20:00 Test Item Value Reference Range Interpretation Comments Albumin Lvl (test code = Albumin Lvl) 5.0 3.5-5.0 [facility]2014-07-16 22:20:00 Test Item Value Reference Range Interpretation Comments ALT (test code = ALT) 43 See_Comment [Auto mated message] The system which ge nerated this result transmit ezequiel reference range : <=65. The reference range was not used to interpr et this result as grace l/abnormal. [facility]2014-07-16 22:20:00 Test Item Value Reference Range Interpretation Comments BUN (test code = BUN) 22 7-22 [facility]2014-07-16 22:20:00 Test Item Value Reference Range Interpretation Comments Glucose Lvl (test code = Glucose Lvl) 90 70-99 [facility]2014-07-16 22:20:00 Test Item Value Reference Range Interpretation Comments Creatinine Lvl (test code = Creatinine 1.1 0.5-1.4 Lvl) [facility]2014-07-16 22:20:00 Test Item Value Reference Range Interpretation Comments Sodium Lvl (test code = Sodium Lvl) 140 135-145 [facility]2014-07-16 22:20:00 Test Item Value Reference Range Interpretation Comments Potassium Lvl (test code = Potassium 4.0 3.5-5.1 Lvl) [facility]2014-07-16 22:20:00 Test Item Value Reference Range Interpretation Comments Calcium Lvl (test code = Calcium Lvl) 9.5 8.5-10.5 [facility]2014-07-16 22:20:00 Test Item Value Reference Range Interpretation Comments Total Protein (test code = Total 8.3 6.4-8.4 Protein) [facility]2014-07-16 22:20:00 Test Item Value Reference Range Interpretation Comments Chloride Lvl (test code = Chloride Lvl) 104 95-109 [place] 585814-07-16 22:20:00 Test Item Value Reference Range Interpretation Comments CO2 (test code = CO2) 27 24-32 [facility]2014-07-16 22:20:00 Test Item Value Reference Range Interpretation Comments AGAP (test code = AGAP) 13.0 10.0-20.0 [facility]2014-07-16 22:20:00 Test Item Value Reference Range Interpretation Comments B/C Ratio (test code = B/C Ratio) 20 6-25 [facility]2014-07-16 22:20:00 Test Item Value Reference Range Interpretation Comments Globulin (test code = Globulin) 3.3 2.0-4.0 [facility]2014-07-16 22:20:00 Test Item Value Reference Range Interpretation Comments A/G Ratio (test code = A/G Ratio) 1.5 0.7-1.6 [facility] AustinYtzgvwtKAQFTPQSHG0067-15-62 22:20:00 Test Item Value Reference Range Interpretation Comments Basophils # (test code 0.1 See_Comment [Aut omated message] The = Basophils #) system which generated this result tra nsmitted reference range : <=0.2. The reference r tony was not used to int erpret this result as normal/abnormal . [facility] AustinNkcclcbJPSUNTZWOB3374-19-98 22:20:00 Test Item Value Reference Range Interpretation Comments Monocytes # (test code 0.9 See_Comment [Aut omated message] The = Monocytes #) system which generated this result tra nsmitted reference range : <=0.8. The reference r tony was not used to int erpret this result as normal/abnormal . [facility] AustinYfrymljHGKJJCMVKQ2163-62-22 22:20:00 Test Item Value Reference Range Interpretation Comments Eosinophils # (test code 0.3 See_Comment [A utomated message] The = Eosinophils #) system whic h generated this result tra nsmitted reference range : <=0.5. The reference r tony was not used to int erpret this result as normal/abnormal . [facility] AustinWvfcmreUSPOBMDBDS1913-89-55 22:20:00 Test Item Value Reference Range Interpretation Comments Segs-Bands # (test code = Segs-Bands #) 6.5 1.5-8.1 [facility] AustinUjmrnztOKEEULQGMO8800-44-28 22:20:00 Test Item Value Reference Range Interpretation Comments Lymphocytes # (test code = Lymphocytes 3.3 1.0-5.5 #) [facility] AustinIqukmsqTRNJXPNXIQ4339-62-71 22:20:00 Test Item Value Reference Range Interpretation Comments Basophils (test code = 0.8 See_Comment [Aut omated message] The Basophils) system which ge nerated this result tra nsmitted reference range : <=1.0. The reference r tony was not used to int erpret this result as normal/abnormal . [facility] AustinQpvxzeoDJKEZLETNL5100-26-58 22:20:00 Test Item Value Reference Range Interpretation Comments Eosinophils (test code = 2.3 See_Comment [A utomated message] The Eosinophils) system which ge nerated this result tra nsmitted reference range : <=4.0. The reference r tony was not used to int erpret this result as normal/abnormal . [facility] AustinUpmchzmUOHZHAKLDF8569-88-12 22:20:00 Test Item Value Reference Range Interpretation Comments Lymphocytes (test code = Lymphocytes) 29.9 20.0-40.0 [facility] AustinJyjgehpWJEXOUXTAY4645-68-41 22:20:00 Test Item Value Reference Range Interpretation Comments Monocytes (test code = Monocytes) 7.9 2.0-12.0 [facility] AustinUzseawrQTWWLEAEBL6579-47-66 22:20:00 Test Item Value Reference Range Interpretation Comments Segs (test code = Segs) 59.1 45.0-75.0 [facility] AustinZwgqdzaPBVGNOMTAC9278-54-67 22:20:00 Test Item Value Reference Range Interpretation Comments MPV (test code = MPV) 9.4 7.4-10.4 [facility] AustinGcwppzoUYSLTIXCRN5821-03-81 22:20:00 Test Item Value Reference Range Interpretation Comments RDW (test code = RDW) 13.8 11.5-14.5 [facility] AustinCpxdpbfNKSIWXABKX3906-92-19 22:20:00 Test Item Value Reference Range Interpretation Comments Platelet (test code = Platelet) 234 133-450 [facility] AustinFbhvlxyGWQIJHZYKI1658-67-32 22:20:00 Test Item Value Reference Range Interpretation Comments MCHC (test code = MCHC) 34.3 32.0-36.0 [facility] AustinGjihviiTSCYHLIRTQ3011-61-39 22:20:00 Test Item Value Reference Range Interpretation Comments MCH (test code = MCH) 32.6 pg 27.0-31.0 [facility] AustinYaaugqdESZCUBIDCU2626-25-00 22:20:00 Test Item Value Reference Range Interpretation Comments Hgb (test code = Hgb) 16.3 14.0-18.0 [facility] AustinXkyuwykJABZXSCJGA1503-48-61 22:20:00 Test Item Value Reference Range Interpretation Comments MCV (test code = MCV) 95.0 80.0-94.0 [facility] AustinIydzlaaKDXSUDXFYK9724-70-13 22:20:00 Test Item Value Reference Range Interpretation Comments Hct (test code = Hct) 47.5 42.0-54.0 [facility] AustinTxwhgprUKEPVWXGOR5132-05-66 22:20:00 Test Item Value Reference Range Interpretation Comments RBC (test code = RBC) 5.00 4.70-6.10 [facility] AustinExrgsavOGYQLOKEVI6361-24-99 22:20:00 Test Item Value Reference Range Interpretation Comments WBC (test code = WBC) 11.0 3.7-10.4 [facility]2014-07-16 22:20:00 Test Item Value Reference Range Interpretation Comments Lipase Lvl (test code = Lipase Lvl) 151 73-393 [facility]2014-07-16 22:20:00 Test Item Value Reference Range Interpretation Comments eGFR (test code = eGFR) 93 [facility]2014-07-16 22:20:00 Test Item Value Reference Range Interpretation Comments AST (test code = AST) 23 See_Comment [Auto mated message] The system which ge nerated this result transmit ezequiel reference range : <=37. The reference range was not used to interpr et this result as grace l/abnormal. [facility]2014-07-16 22:20:00 Test Item Value Reference Range Interpretation Comments Alk Phos (test code = Alk Phos) 67 39-136 [facility]2014-07-16 22:20:00 Test Item Value Reference Range Interpretation Comments Bili Total (test code = Bili Total) 0.7 0.2-1.3 [facility]2014-07-16 22:20:00 Test Item Value Reference Range Interpretation Comments Albumin Lvl (test code = Albumin Lvl) 5.0 3.5-5.0 [facility]2014-07-16 22:20:00 Test Item Value Reference Range Interpretation Comments ALT (test code = ALT) 43 See_Comment [Auto mated message] The system which ge nerated this result transmit ezequiel reference range : <=65. The reference range was not used to interpr et this result as grace l/abnormal. [facility]2014-07-16 22:20:00 Test Item Value Reference Range Interpretation Comments BUN (test code = BUN) 22 7-22 [facility]2014-07-16 22:20:00 Test Item Value Reference Range Interpretation Comments Glucose Lvl (test code = Glucose Lvl) 90 70-99 [facility]2014-07-16 22:20:00 Test Item Value Reference Range Interpretation Comments Creatinine Lvl (test code = Creatinine 1.1 0.5-1.4 Lvl) [facility]2014-07-16 22:20:00 Test Item Value Reference Range Interpretation Comments Sodium Lvl (test code = Sodium Lvl) 140 135-145 [facility]2014-07-16 22:20:00 Test Item Value Reference Range Interpretation Comments Potassium Lvl (test code = Potassium 4.0 3.5-5.1 Lvl) [facility]2014-07-16 22:20:00 Test Item Value Reference Range Interpretation Comments Calcium Lvl (test code = Calcium Lvl) 9.5 8.5-10.5 [facility]2014-07-16 22:20:00 Test Item Value Reference Range Interpretation Comments Total Protein (test code = Total 8.3 6.4-8.4 Protein) [facility]2014-07-16 22:20:00 Test Item Value Reference Range Interpretation Comments Chloride Lvl (test code = Chloride Lvl) 104 95-109 [facility]2014-07-16 22:20:00 Test Item Value Reference Range Interpretation Comments CO2 (test code = CO2) 27 24-32 [facility]2014-07-16 22:20:00 Test Item Value Reference Range Interpretation Comments AGAP (test code = AGAP) 13.0 10.0-20.0 [facility]2014-07-16 22:20:00 Test Item Value Reference Range Interpretation Comments B/C Ratio (test code = B/C Ratio) 20 6-25 [facility]2014-07-16 22:20:00 Test Item Value Reference Range Interpretation Comments Globulin (test code = Globulin) 3.3 2.0-4.0 [facility]2014-07-16 22:20:00 Test Item Value Reference Range Interpretation Comments A/G Ratio (test code = A/G Ratio) 1.5 0.7-1.6 [facility] AustinDbkeuufDPWUNRWECB1143-28-75 22:20:00 Test Item Value Reference Range Interpretation Comments Basophils # (test code 0.1 See_Comment [Aut omated message] The = Basophils #) system which generated this result tra nsmitted reference range : <=0.2. The reference r tony was not used to int erpret this result as normal/abnormal . [facility] AustinGktnryzTQUEUWSWEY3067-67-07 22:20:00 Test Item Value Reference Range Interpretation Comments Monocytes # (test code 0.9 See_Comment [Aut omated message] The = Monocytes #) system which generated this result tra nsmitted reference range : <=0.8. The reference r tony was not used to int erpret this result as normal/abnormal . [facility] AustinMmbabqwZVKZDZONCC7002-76-69 22:20:00 Test Item Value Reference Range Interpretation Comments Eosinophils # (test code 0.3 See_Comment [A utomated message] The = Eosinophils #) system whic h generated this result tra nsmitted reference range : <=0.5. The reference r tony was not used to int erpret this result as normal/abnormal . [facility] AustinJnfhtcfQVKMISQKYH6817-42-26 22:20:00 Test Item Value Reference Range Interpretation Comments Segs-Bands # (test code = Segs-Bands #) 6.5 1.5-8.1 [facility] AustinNczrvgmWKYNZMJGLH2689-36-05 22:20:00 Test Item Value Reference Range Interpretation Comments Lymphocytes # (test code = Lymphocytes 3.3 1.0-5.5 #) [facility] AustinLxvwkiuKFGQIZHLSY6545-61-89 22:20:00 Test Item Value Reference Range Interpretation Comments Basophils (test code = 0.8 See_Comment [Aut omated message] The Basophils) system which ge nerated this result tra nsmitted reference range : <=1.0. The reference r tony was not used to int erpret this result as normal/abnormal . [facility] AustinApuluriNNZIDKXDVA3450-39-73 22:20:00 Test Item Value Reference Range Interpretation Comments Eosinophils (test code = 2.3 See_Comment [A utomated message] The Eosinophils) system which ge nerated this result tra nsmitted reference range : <=4.0. The reference r tony was not used to int erpret this result as normal/abnormal . [facility] AustinJlkxaexOXKWUHNWDE1255-88-72 22:20:00 Test Item Value Reference Range Interpretation Comments Lymphocytes (test code = Lymphocytes) 29.9 20.0-40.0 [facility] AustinEegplfpYAPSSEVTFG4693-27-21 22:20:00 Test Item Value Reference Range Interpretation Comments Monocytes (test code = Monocytes) 7.9 2.0-12.0 [facility] AustinPfmvpyyHKNCIRBIQV2664-58-64 22:20:00 Test Item Value Reference Range Interpretation Comments Segs (test code = Segs) 59.1 45.0-75.0 [facility] AustinLvafhupHFSXGECVWY3743-46-00 22:20:00 Test Item Value Reference Range Interpretation Comments MPV (test code = MPV) 9.4 7.4-10.4 [facility] AustinPlhmoaiOYBSNVAHNO4937-00-85 22:20:00 Test Item Value Reference Range Interpretation Comments RDW (test code = RDW) 13.8 11.5-14.5 [facility] AustinWmouqtyXDTDELBLBM6090-94-26 22:20:00 Test Item Value Reference Range Interpretation Comments Platelet (test code = Platelet) 234 133-450 [facility] AustinCydaeelEVTFKNWZJR6830-60-85 22:20:00 Test Item Value Reference Range Interpretation Comments MCHC (test code = MCHC) 34.3 32.0-36.0 [facility] AustinVxaozweXIUETFBUWP5667-29-97 22:20:00 Test Item Value Reference Range Interpretation Comments MCH (test code = MCH) 32.6 pg 27.0-31.0 [facility] AustinTmgawydSAFFXULGNR9912-60-86 22:20:00 Test Item Value Reference Range Interpretation Comments Hgb (test code = Hgb) 16.3 14.0-18.0 [facility] AustinDeqjacjLUPQZBSQXS4939-10-45 22:20:00 Test Item Value Reference Range Interpretation Comments MCV (test code = MCV) 95.0 80.0-94.0 [facility] AustinCgxdhqkDWQHAWKASX7692-54-59 22:20:00 Test Item Value Reference Range Interpretation Comments Hct (test code = Hct) 47.5 42.0-54.0 [facility] AustinIdbigceTJRYHMRWMD3365-67-25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 there is continued concern, MRI should be performed for further assessment. IMPRESSION: No CT evidence of acute intracranial process. SL: 2014-01-20 21:45:00-00:00 Name: DIANE GANNON [facility] : 1990 Ordering Physician: Annalise Jasso Brain wo contrast CT : Jan 20, 2014 09:03:00 PM. CLINICAL INDICATION: Seizures Comparison Examination: 02/06/2013. TECHNIQUE: CT of the head wa s performed without administration of intravenous contrast. Coronal and sagittal reconstructions were obtained. Total DLP = 1036.99 mGy/cm FINDINGS: The ventricles are normal in size and shape. The sulcal pattern is normal and the basal cisterns are patent. There is no CT evidence of acute intracranial hemorhhage, mass, mass effect, or midline shift. There is no skull fracture. The paranasal sinuses and mastoid air cells are well pneumatized. There is no CT evidence of s troke. If there is continued concern, MRI should be performed for further assessment. IMPRESSION: No CT evidence of acute intracranial process. SL: 2013-12-16 18:05:00-00:00 Name: DIANE GANNON [facility] : 1990 SEX: M Ordering Physician: Selma Coleman Abdomen RUQ US : Dec 16, 2013 06:48:00 PM. CLINICAL INDICATION: Acute abdominal pain Comparison Examination: None Clinical History: Abdominal pain FINDINGS: The liver is within normal l imits in size and contour. The echotexture is diffusely increased, consistent with fatty infiltration. There is no intrahepatic biliary ductal dilatation. There are no gallstones, gal lbladder sludge, pericholecystic fluid or wall thickening. The common bile duct measures 2.8 mm in diameter at the radha hepatis. Limited views of the pancrea s, abdominal aorta, and inferior vena cava are unremarkable. The right kidney measures 9. 6 x 4.2 x 4.0 cm. The echotexture is normal. There is a 4 mm shadowing calcification in the right lower kidney. There is no free fluid within the right upper qu adrant. IMPRESSION: Fatty liver infiltration. Right lower pole nonobstructive renal calculus. SL:2013-12-16 18:05:00-00:00 Name: DIANE GANNON [facility] : 1990 SEX: M Ordering Physician: Selma Coleman Abdomen RUQ US : Dec 16, 2013 06:48:00 PM. CLINICAL INDICATION: Acute abdominal pain Comparison Examination: None Clinical History: Abdominal pain FINDINGS: The liver is within normal l imits in size and contour. The echotexture is diffusely increased, consistent with fatty infiltration. There is no intrahepatic biliary ductal dilatation. There are no gallstones, gal lbladder sludge, pericholecystic fluid or wall thickening. The common bile duct measures 2.8 mm in diameter at the radha hepatis. Limited views of the pancrea s, abdominal aorta, and inferior vena cava are unremarkable. The right kidney measures 9. 6 x 4.2 x 4.0 cm. The echotexture is normal. There is a 4 mm shadowing calcification in the right lower kidney. There is no free fluid within the right upper qu adrant. IMPRESSION: Fatty liver infiltration. Right lower pole nonobstructive renal calculus. SL:24
[2023-02-13] MEDS ORDERED: ONDANSETRON 4 MG/2 ML VIAL ONE (04:41)
[2023-02-13] MEDS ORDERED: NA CHLORIDE 0.9% 2,000 ML ONE (04:41)
[2023-02-13] MEDS ORDERED: PANTOPRAZOLE 40 MG INJ ONE (04:41)
[2023-02-13] MEDS ORDERED: FAMOTIDINE 20 MG/2 ML VIAL IV ONE (04:41)
[2023-02-13 05:09] LABS: Absolute Lymphocytes (CBC) 2.9 K/uL (0.7-4.9); Hematocrit 39.9 % (39.6-49.0); Lymphocytes % 21.3 % (15.3-44.8); MCV 90.3 fL (80-100); MPV 10.2 fL (7.6-11.3); Platelets 212 thou/uL (152-406); RBC Red Blood Cell Count 4.42 M/uL (4.33-5.43)
[2023-02-13 05:12] LABS: Protime INR 1.16
[2023-02-13 05:20] LABS: ALT/SGPT 26 U/L (16-61); AST/SGOT 17 U/L (15-37); Alkaline Phosphatase 62 U/L (45-117); BUN Blood Urea Nitrogen 9 mg/dL (7-18); Bicarbonate 28 mEq/L (21-32); Bilirubin Direct 0.2 mg/dL (0-0.2); Bilirubin Indirect, Calculated 0.6 mg/dL (0.2-0.8); Bilirubin Total 0.8 mg/dL (0.2-1.0); Glomerular Filtration Rate 90 ml/min (=/>90); Glucose Level 116 mg/dL (74-106); Protein, Total 7.2 g/dL (6.4-8.2); Sodium Level 126 mEq/L (136-145)
[2023-02-13 05:23] LABS: Potassium 2.5 mEq/L (3.5-5.1)
[2023-02-13] MEDS ORDERED: KCL 20 MEQ/100 mL IVPB 100 ML IV ONE (06:31)
[2023-02-13 06:53] LABS: Specific Gravity < 1.005 (1.005-1.030); Urine Bilirubin NEGATIVE (Negative); Urine Blood Negative (Negative); Urine Clarity Clear (Clear); Urine Color Colorless (Yellow); Urine Glucose NEGATIVE (Negative); Urine Protein NEGATIVE (Negative); Urine Urobilinogen Normal (Normal)
[2023-02-13 06:54] LABS: Potassium 2.7 mEq/L (3.5-5.1)
[2023-02-13 07:06] LABS: Barbiturates NEGATIVE (NEGATIVE); Benzodiazepines NEGATIVE (NEGATIVE); Cocaine NEGATIVE (NEGATIVE); METHAMPHETAM NEGATIVE (NEGATIVE); Methadone NEGATIVE (NEGATIVE); Opiates NEGATIVE (NEGATIVE); Phencyclidine NEGATIVE (NEGATIVE); THC Cannibis POSITIVE (NEGATIVE)
--- NOTE | 2023-02-13 07:10 | ER ---
Nurse's Notes [facility] Name: Chico Leon Jr Age: 32 yrs Sex: Male : 1990 Arrival Date: 02/13/2023 Time: 03:54 Bed 18 Private MD: Diagnosis: Unintentional overdose, ibuprofen overdose, [place] overdose, hyponatremia, hypokalemia, nausea and vomiting;Cannabis abuse Presentation: 02/13 04:12 Chief complaint: Patient states: I took 6 10/325 [place], and 1600 mg of Motrin about jb4 4hrs ago. I took it for my tooth pain. I have been vomiting since. 04:23 Coronavirus screen: At this time, the client does not indicate any symptoms associated jb4 with coronavirus-19. Ebola Screen: No symptoms or risks identified at this time. Initial Sepsis Screen: Does the patient meet any 2 criteria? No. Patient's initial sepsis screen is negative. Does the patient have a suspected source of infection? No. Patient's initial sepsis screen is negative. Risk Assessment: Do you want to hurt yourself or someone else? Patient reports no desire to harm self or others. Onset of symptoms was February 13, 2023. 04:23 Method Of Arrival: Ambulatory jb4 04:23 Acuity: RADHA 3 jb4 Historical: - Allergies: 04:23 Reglan (tardive dyskinesia); jb4 - PMHx: 04:23 Anxiety; Bipolar disorder; Depression; Pancreatitis; PTSD; Schizophrenia; Borderline; jb4 Seizures; - PSHx: 04:23 Appendectomy; jb4 - Immunization history:: Adult Immunizations up to date. - Social history:: Smoking status: Patient reports the use of cigarette tobacco products, smokes one pack cigarettes per day. - Family history:: not pertinent. Screenin:35 [facility] ED Fall Risk Assessment (Adult) Score/Fall Risk Level 0 - 2 = Low Risk db Oriented to surroundings, Maintained a safe environment. Abuse screen: Denies threats or abuse. Denies injuries from another. Nutritional screening: No deficits noted. Tuberculosis screening: No symptoms or risk factors identified. Assessment: 04:45 General: Appears in no apparent distress. uncomfortable, Behavior is cooperative, jb4 anxious. Pain: Complains of pain in mouth Pain does not radiate. Pain currently is 10 out of 10 on a pain scale. Neuro: Level of Consciousness is awake, alert, obeys commands, Oriented to person, place, time, situation. Cardiovascular: Patient's skin is warm and dry. Respiratory: Airway is patent Respiratory effort is even, unlabored, Respiratory pattern is regular, symmetrical. GI: Pt is actively vomiting bile. : No signs and/or symptoms were reported regarding the genitourinary system. EENT: No signs and/or symptoms were reported regarding the EENT system. Derm: Skin is intact, Skin is pink, warm \T\ dry. 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 06:00 Reassessment: Patient appears in no apparent distress at this time. Patient and/or jb4 family updated on plan of care and expected duration. Pain level reassessed. Patient is alert, oriented x 3, equal unlabored respirations, skin warm/dry/pink. 07:00 Reassessment: Patient appears in no apparent distress at this time. Patient and/or db family updated on plan of care and expected duration. Pain level reassessed. Patient is alert, oriented x 3, equal unlabored respirations, skin warm/dry/pink. Reassessment: REPORT RECEIVED FROM HAILEY BUI. General: Appears in no apparent distress. 08:23 Reassessment: Patient appears in no apparent distress at this time. Patient and/or db family updated on plan of care and expected duration. Pain level reassessed. Patient is alert, oriented x 3, equal unlabored respirations, skin warm/dry/pink. Patient states feeling better. Patient states symptoms have improved. Vital Signs: 04:23 BP 160 / 94; Pulse 83; Resp 16; Temp 97.7(TE); Pulse Ox 100% on R/A; Weight 79.38 kg jb4 (M); Height 5 ft. 3 in. (R); Pain 10/10; 05:30 BP 130 / 80; Pulse 67; Resp 16; Pulse Ox 100% on R/A; jb4 06:30 BP 130 / 82; Pulse 53; Resp 16; Pulse Ox 100% on R/A; jb4 07:15 BP 128 / 87; Pulse 60; Resp 16; Pulse Ox 100% on R/A; db 08:00 BP 124 / 78; Pulse 71; Resp 16; Pulse Ox 100% on R/A; db 04:23 Body Mass Index 31.00 (79.38 kg, 160.02 cm) jb4 04:23 Pain Scale: Adult jb4 ED Course: 03:57 Patient arrived in ED. jj6 04:12 Warren Palma, RN is Primary Nurse. jb4 04:14 Delano Loja MD is Attending Physician. sp4 04:23 Triage completed. jb4 04:23 Arm band placed on right wrist. jb4 07:09 Ravi Patino DDS is Referral Physician. sp4 07:35 Patient has correct armband on for positive identification. Bed in low position. Call db light in reach. Side rails up X 1. Pulse ox on. NIBP on. Warm blanket given. 07:35 IV is patent, is intact, with fluids infusing freely, with good blood return, Flushed db right. 08:23 Provided Education on: DISCHARGE. db 08:23 No provider procedures requiring assistance completed. IV discontinued, intact, db bleeding controlled, No redness/swelling at site. Administered Medications: 04:25 Not Given (Pt allergicc): metoCLOPramide IVP 10 mg IVP once; over 1 to 2 minutes jb4 05:07 Drug: NS 0.9% IV 1000 ml Route: IV; Rate: 1 bolus; Site: right antecubital; jb4 07:00 Follow up: Response: No adverse reaction; IV Status: Completed infusion; IV Intake: db 1000ml 05:07 Drug: Ondansetron IVP 4 mg Route: IVP; Site: right antecubital; jb4 08:26 Follow up: Response: No adverse reaction db 05:07 Drug: Famotidine IVP 20 mg Route: IVP; Site: right antecubital; jb4 08:25 Follow up: Response: No adverse reaction db 05:07 Drug: Pantoprazole IVP 40 mg Route: IVP; Site: right antecubital; jb4 08:25 Follow up: Response: No adverse reaction db 05:07 Drug: NS 0.9% IV 1000 ml Route: IV; Rate: 125 ml/hr; Site: right antecubital; jb4 08:25 Follow up: Response: No adverse reaction; IV Status: Completed infusion db 06:32 Drug: Potassium Chloride IV 20 mEq Route: IV; Rate: calculated rate; Site: right jb4 antecubital; 08:25 Follow up: Response: No adverse reaction; IV Status: Completed infusion; IV Intake: db 100ml 07:06 Not Given (Physician Discretion): NS 0.9% with KCl IV 20 mEq/L 1000 ml IV at 125 ml/hr jb4 continuous Medication: 08:23 VIS not applicable for this client. db Intake: 07:00 IV: 1000ml; Total: 1000ml. db 08:25 IV: 100ml; Total: 1100ml. db Outcome: 07:10 Discharge ordered by MD. anton 08:23 Discharged to home ambulatory. db 08:23 Condition: stable 08:23 Discharge instructions given to patient, Instructed on discharge instructions, follow up and referral plans. Prescriptions given X 2. 08:26 Patient left the ED. db Signatures: Warren Palma RN RN jb4 Annalise Monzon jj6 Nhi Dimas RN RN db Delano Loja MD MD sp4
--- NOTE | 2023-02-13 07:10 | EDPHYS ---
Physician Documentation [facility] Name: Chico Leon Jr Age: 32 yrs Sex: Male : 1990 Arrival Date: 02/13/2023 Time: 03:54 Bed 18 Private MD: ED Physician Delano Loja HPI: 02/13 04:15 This 32 yrs old Male presents to ER via Unassigned with complaints of Possible sp4 Overdose. 05:03 32-year-old male presents with reported overdose of ibuprofen and [place]. Patient states sp4 he has dental pain left upper molar associated with large cavity and dental decay. Prior to arrival patient took a total of 1600 mg ibuprofen, also [place] 10/325 x 6 tablet . this happened approximately 4 hours prior to arrival. Patient developed abdominal ache and nausea patient is here being evaluated for possible overdose. Poison control was notified on arrival and reported that patient should get Narcan in case he gets respiratory depression. . Historical: - Allergies: 04:23 Reglan (tardive dyskinesia); jb4 - PMHx: 04:23 Anxiety; Bipolar disorder; Depression; Pancreatitis; PTSD; Schizophrenia; Borderline; jb4 Seizures; - PSHx: 04:23 Appendectomy; jb4 - Immunization history:: Adult Immunizations up to date. - Social history:: Smoking status: Patient reports the use of cigarette tobacco products, smokes one pack cigarettes per day. - Family history:: not pertinent. ROS: 05:03 Constitutional: Negative for fever, chills, and weight loss, Abdomen/GI: Negative for sp4 diarrhea, and constipation, positive for abdominal pain nausea and vomiting 05:03 All other systems are negative. Exam: 05:03 Constitutional: This is a well developed, well nourished patient who is awake, alert, sp4 patient is ill-appearing but nontoxic Head/Face: Normocephalic, atraumatic. Eyes: Pupils equal round and reactive to light, extra-ocular motions intact. Lids and lashes normal. Conjunctiva and sclera are not injected. Cornea within normal limits. Periorbital areas with no swelling, redness, or edema. ENT: Nares patent. No nasal discharge, no septal abnormalities noted. Tympanic membranes are normal and external auditory canals are clear. Oropharynx with no redness, swelling, or masses, exudates, or evidence of obstruction, uvula midline. Mucous membranes moist. Neck: Trachea midline, no thyromegaly or masses palpated, and no cervical lymphadenopathy. Supple, full range of motion without nuchal rigidity, or vertebral point tenderness. Chest/axilla: Normal chest wall appearance and motion. Nontender with no deformity. No lesions are appreciated. Cardiovascular: Regular rate and rhythm with a normal S1 and S2. No gallops, murmurs, or rubs. Normal PMI, no JVD. No pulse deficits. Respiratory: Lungs have equal breath sounds bilaterally, clear to auscultation and percussion. No rales, rhonchi or wheezes noted. No increased work of breathing, no retractions or nasal flaring. Abdomen/GI: Soft, non-tender, with normal bowel sounds. No distension or tympany. No guarding or rebound. No evidence of tenderness throughout. Back: No spinal tenderness. No costovertebral tenderness. Skin: Warm, dry with normal turgor. Normal color with no rashes, no lesions, and no evidence of cellulitis. MS/ Extremity: Pulses equal, no cyanosis. Neurovascular intact. Full, normal range of motion. Neuro: Awake and alert, GCS 15, oriented to person, place, time, and situation. Cranial nerves II-XII grossly intact. Motor strength 5/5 in all extremities. Sensory grossly intact. Psych: Awake, alert, with orientation to person, place and time. Behavior, mood, and affect are within normal limits 05:03 ECG was reviewed by the Attending Physician. There is EKG at 0 453, sinus bradycardia sp4 at the rate of 57, no ST elevation or depression. No ectopy Vital Signs: 04:23 BP 160 / 94; Pulse 83; Resp 16; Temp 97.7(TE); Pulse Ox 100% on R/A; Weight 79.38 kg jb4 (M); Height 5 ft. 3 in. (R); Pain 10/10; 05:30 BP 130 / 80; Pulse 67; Resp 16; Pulse Ox 100% on R/A; jb4 06:30 BP 130 / 82; Pulse 53; Resp 16; Pulse Ox 100% on R/A; jb4 07:15 BP 128 / 87; Pulse 60; Resp 16; Pulse Ox 100% on R/A; db 08:00 BP 124 / 78; Pulse 71; Resp 16; Pulse Ox 100% on R/A; db 04:23 Body Mass Index 31.00 (79.38 kg, 160.02 cm) jb4 04:23 Pain Scale: Adult jb4 MDM: 04:39 Patient medically screened. sp4 07:07 Differential diagnosis: Ingestion/exposure to Prescribed Ibuprofen PO polypharmacy, sp4 over medication, hypoglycemia. Data reviewed: vital signs, nurses notes, lab test result(s), CBC, electrolytes, hepatic panel, EKG. Consideration of Admission/Observation Escalation of care including admission/observation considered. ED course: Patient's potassium is on the low side likely secondary to nausea vomiting. We will prescribe potassium replacement p.o. and Phenergan as needed for nausea. Will advise visit with a dentist for extraction of the left upper molar. Will advise not to take excess medication. . 07:13 ED course: Patient is awaiting on his IV potassium to be finished.. sp4 07:13 Transition of care: After a detail discussion of the patient's case, care is sp4 transferred to Delano Loja MD. 02/13 04:14 Order name: Acetaminophen; Complete Time: 06:04 [facility] 02/13 04:14 Order name: Basic Metabolic Panel; Complete Time: 06:04 [facility] 02/13 04:14 Order name: CBC with Diff; Complete Time: 06:04 [facility] 02/13 04:14 Order name: ETOH Level; Complete Time: 06:04 4 02/13 04:14 Order name: Hepatic Function; Complete Time: 06:04 [facility] 02/13 04:14 Order name: PT-INR; Complete Time: 06:04 4 02/13 04:14 Order name: Ptt, Activated; Complete Time: 06:04 4 02/13 04:14 Order name: Salicylate; Complete Time: 06:04 [facility] 02/13 04:14 Order name: Urinalysis w/ reflexes [facility] 02/13 04:14 Order name: Urine Drug Screen; Complete Time: 07:16 4 02/13 06:07 Order name: Basic Metabolic Panel; Complete Time: 06:59 4 02/13 06:59 Interpretation: NA 129. [facility] 02/13 04:14 Order name: EKG; Complete Time: 04:15 [facility] 02/13 04:14 Order name: EKG - Nurse/Tech; Complete Time: 05:07 sp4 02/13 04:14 Order name: IV Saline Lock; Complete Time: 05: sp4 02/13 04:14 Order name: Labs collected and sent; Complete Time: 05:07 sp4 EC:03 Rate is 57 beats/min. Rhythm is regular, Sinus bradycardia. QRS [place] is Normal. AR sp4 interval is normal. QRS interval is normal. QT interval is normal. No Q waves. T waves are Normal. No ST changes noted. Clinical impression: No evidence of ischemia. Interpreted by me. Reviewed by me. Administered Medications: 04:25 Not Given (Pt allergicc): metoCLOPramide IVP 10 mg IVP once; over 1 to 2 minutes jb4 05:07 Drug: NS 0.9% IV 1000 ml Route: IV; Rate: 1 bolus; Site: right antecubital; jb4 07:00 Follow up: Response: No adverse reaction; IV Status: Completed infusion; IV Intake: db 1000ml 05:07 Drug: Ondansetron IVP 4 mg Route: IVP; Site: right antecubital; jb4 08:26 Follow up: Response: No adverse reaction db 05:07 Drug: Famotidine IVP 20 mg Route: IVP; Site: right antecubital; jb4 08:25 Follow up: Response: No adverse reaction db 05:07 Drug: Pantoprazole IVP 40 mg Route: IVP; Site: right antecubital; jb4 08:25 Follow up: Response: No adverse reaction db 05:07 Drug: NS 0.9% IV 1000 ml Route: IV; Rate: 125 ml/hr; Site: right antecubital; jb4 08:25 Follow up: Response: No adverse reaction; IV Status: Completed infusion db 06:32 Drug: Potassium Chloride IV 20 mEq Route: IV; Rate: calculated rate; Site: right jb4 antecubital; 08:25 Follow up: Response: No adverse reaction; IV Status: Completed infusion; IV Intake: db 100ml 07:06 Not Given (Physician Discretion): NS 0.9% with KCl IV 20 mEq/L 1000 ml IV at 125 ml/hr jb4 continuous Disposition Summary: 02/13/23 07:10 Discharge Ordered Location: Home sp4 Problem: new sp4 Symptoms: have improved sp4 Condition: Stable sp4 Diagnosis - Unintentional overdose, ibuprofen overdose, [place] overdose, hyponatremia, sp4 hypokalemia, nausea and vomiting - Cannabis abuse sp4 Followup: sp4 - With: Ravi Patino DDS - When: 1 - 2 days - Reason: Recheck today's complaints Discharge Instructions: - Discharge Summary Sheet sp4 - Opioid Overdose sp4 Forms: - Patient Portal Instructions sp4 Prescriptions: - Potassium Chloride 10 mEq Oral capsule, extended release - take 1 tablet by ORAL route every 12 hours for 10 days; 20 tablet; Refills: 0, sp4 Product Selection Permitted - promethazine 25 mg Oral Tablet - take 1 tablet by ORAL route every 6 hours As needed; 20 tablet; Refills: 0, sp4 Product Selection Permitted Signatures: Dispatcher [employer] EDMS Warren Palma RN HAILEY jb4 Delano Loja MD MD sp4 Nhi Dimas RN db Corrections: (The following items were deleted from the chart) 04:24 04:14 Suicide Screening ([place]) ordered. sp4 jb4 07:16 07:13 ED course: Patient is awaiting on transfer to the [facility]. sp4 Patient is waiting on a bed assignment. . sp4 07:16 07:13 Transition of care: After a detail discussion of the patient's case, care is sp4 transferred to Lonnie Denson MD sp4
[2023-02-13 08:31] VITALS: TEMP 97.7; O2SAT 100
[2023-02-13 08:38] VITALS: BP 124/78
--- NOTE | 2023-02-13 14:53 | EKG ---
Test Date: 2023-02-13 Test Time: 04:53:49 [employer]: MACHO MEASUREMENT RESULTS: Intervals: Rate: 57 CA: 180 QRSD: 94 QT: 398 QTc: 387 Hughes: P: 73 CA: 180 QRS: 65 T: 33 INTERPRETIVE STATEMENTS: Sinus bradycardia Otherwise normal ECG Compared to ECG 03/21/2021 22:17:50 Sinus rhythm no longer present Right-axis deviation no longer present Electronically Signed On 02-13-23 14:52:57 CDT by Levar Thomson
== END 2023-02-13 08:26 | disposition home or self-care (01) ==
LOC: ER 03:54
DX: T39.1X1A Poisoning by 4-Aminophenol derivatives, accidental (unintentional), initial encounter (principal); T39.311A Poisoning by propionic acid derivatives, accidental (unintentional), initial encounter; E87.6 Hypokalemia; E87.1 Hypo-osmolality and hyponatremia; F12.10 Cannabis abuse, uncomplicated; R11.2 Nausea with vomiting, unspecified
CPT/HCPCS: 36415; 80048; 80076; 80143; 80179; 80307; 81003; 82077; 85025; 85610; 85730; 93005; 96361; 96365; 96366; 96375; 99284; C9113; J2405; J3480; J7030